=== PATIENT | female | born 1985 | race Caucasian/White ===

== ENCOUNTER 2022-09-14 16:29 | Outpatient (OUT) | payer MEDICAID, SELFPAY ==
[2022-09-14 17:46] LABS: HCG Quantitative <1 mIU/mL
[2022-09-16 06:12] LABS: HBsAg Screen Negative (Negative); HCV Antibody Reactive (Non Reactive)
[2022-09-16 07:08] LABS: HIV Ab/p24 Ag Screen Non Reactive (Non Reactive)
[2022-09-16 11:08] LABS: Rapid Plasma Reagin, Quant Non Reactive (NonRea<1:1)
== END 2022-09-14 16:30 | disposition home or self-care (01) ==
PROVIDERS: Visit Provider Obstetrics & Gynecology
DX: N89.8 Other specified noninflammatory disorders of vagina (principal); Z20.2 Contact with and (suspected) exposure to infections with a predominantly sexual mode of transmission
CPT/HCPCS: 36415; 84702; 86592; 86706; 86803; 87389

== ENCOUNTER 2022-11-01 12:44 | Outpatient (OUT) | payer MEDICAID, SELFPAY ==
--- NOTE | 2022-11-01 13:49 | P.CN_ITS ---
Consult Note: HPI Data of Consult Patient: new to practice Consult date: 11/01/22 Requesting Physician: Getachew Ambrose MD Primary Care Provider: RITA MORRIS Consult Narrative Reason for consult: Low back, left leg pain Narrative: Caroline 37yof with a history of low back and left leg pain who presents for evaluation. Has had two previous lumbar surgeries, without significant relief. Lumbar CT scan reviewed, which is indicative of stenosis at L5-S1 with moderate foraminal narrowing. Has completed >6 weeks of provider directed home exercises, without relief. Goes to chiropractor weekly. History of opiate overdose, utilizes suboxone. Denies adverse medication side effects. cc:: CC: Getachew Ambrose MD Review of Systems ROS Status of ROS 10 or more systems reviewed and unremarkable except as noted in history and below Exam Constitutional Common normals: no apparent distress, oriented x3 and healthy appearing Respiratory Common normals: normal respiratory effort Effort & inspection: able to speak in complete sentences Back & Pelvis Other: Tenderness to palpation in lumbar spine and paraspinal musculature. Pain el icited with flexion, extension, lateral rotation of lumbar spine. Facet loading maneuvers positive bilaterally. Strength unremarkable except for decreased strength rated 4/5 in left quadriceps femoris, anterior tibialis. Sensation unremarkable except for dysesthesia in left L4, L5, S1 dermatomal distributions. Gait nonantalgic. Extremity Common normals: normal to inspection Neuro Common normals: oriented x3, CN's II-XII intact bilaterally and no focal motor deficits Psych Common normals: mental status grossly normal and cooperative Assessment and Plan Assessment and Plan (1) Lumbar stenosis with neurogenic claudication: (2) Lumbar postlaminectomy syndrome: (3) Lumbar spondylosis: Plan Caroline 37yof who presents for evaluation. Conservative measures attempted for greater than 6 weeks, as noted above, without relief. Imaging reviewed, as noted above. Given symptoms and imaging findings, will schedule for left L5-S1, S1-2 TFESI under fluoroscopic guidance. She is in agreement. Medications reviewed. Will have her increase lyrica to 200mg tid. She expressed understanding. Follow up after procedure.
== END 2022-11-01 12:45 | disposition home or self-care (01) ==
PROVIDERS: PCP Nurse Practitioner Family; Visit Provider Anesthesiology
DX: M47.816 Spondylosis without myelopathy or radiculopathy, lumbar region (principal); M96.1 Postlaminectomy syndrome, not elsewhere classified; M48.062 Spinal stenosis, lumbar region with neurogenic claudication
CPT/HCPCS: G0463

== ENCOUNTER 2022-11-09 09:24 | Outpatient (OUT) | payer MEDICAID, SELFPAY ==
--- NOTE | 2022-11-09 11:18 | XR_ITS ---
The [address] [address] Patient Name: TYRONE WEST MRN: [id number] date: 1985 Sex: F Assigned Patient Location: [facility] Current Patient Location: [facility] Accession/Order Number: [id number] Exam Date: 11/09/2022 11:30 Report Date: 11/09/2022 11:56 At the request of: CHITO VICTORIA Procedure: XR chest 2V EXAM: XR chest 2V HISTORY: H/O VAPING OR SMOKING COMPARISON: None. TECHNIQUE: PA and lateral views of the chest. FINDINGS: The cardiomediastinal silhouette is normal. No focal consolidation is identified. There is no pneumothorax. No pleural effusion is noted. The osseous structures are intact. XR/XR chest 2V IMPRESSION: No acute cardiopulmonary process. Electronically authenticated by: BRITANY IZAGUIRRE Date: 11/09/2022 11:56
== END 2022-11-09 09:25 | disposition home or self-care (01) ==
PROVIDERS: PCP Nurse Practitioner Family; Visit Provider Obstetrics & Gynecology
DX: Z01.810 Encounter for preprocedural cardiovascular examination (principal); R87.612 Low grade squamous intraepithelial lesion on cytologic smear of cervix (LGSIL)
CPT/HCPCS: 71046

== ENCOUNTER 2022-11-09 09:31 | Outpatient (OUT) | payer MEDICAID, SELFPAY ==
[2022-11-09 10:05] LABS: Basophils Percent Auto 0.5 % (0.2-2.0); Eosinophils Absolute Auto 0.1 10^3/uL (0.0-0.7); Eosinophils Percent Auto 3.5 % (0.9-7.0); Hematocrit 38.4 % (36.0-48.0); Hemoglobin 13.2 g/dL (12.0-16.0); Immature Granulocytes Abs Auto 0.01 10^3/uL (0.00-0.03); Immature Granulocytes Pct Auto 0.2 % (0.0-0.5); Lymphocytes Absolute Auto 1.5 10^3/uL (1.2-3.8); Lymphocytes Percent Auto 37.6 % (20.5-60.0); Mean Corpuscular HGB Conc 34.4 g/dL (29.9-35.2); Mean Corpuscular Hemoglobin 31.6 pg (26.7-34.0); Mean Corpuscular Volume 91.9 fL (81.0-99.0); Mean Platelet Volume 9.8 fL (9.5-13.5); Monocytes Absolute Auto 0.2 10^3/uL (0.3-0.8); Monocytes Percent Auto 5.2 % (1.7-12.0); Neutrophils Absolute Auto 2.1 10^3/uL (1.4-6.5); Platelet Count 262 10^3/uL (150-450); Red Blood Count 4.18 10^6/uL (4.20-5.40); Red Cell Distribution Width 12.7 % (11.0-15.0)
[2022-11-09 10:32] LABS: Estimated Average Glucose 100 mg/dL; Glycohemoglobin A1C 5.1 % (4.5-6.2)
[2022-11-09 10:33] LABS: Alanine Aminotransferase 42 U/L (14-59); Albumin Level 3.1 g/dL (3.4-5.0); Alkaline Phosphatase 96 U/L (46-116); Anion Gap 11.5; Aspartate Amino Transferase 35 U/L (15-37); BUN Creatinine Ratio 18.8; Bilirubin Total 0.4 mg/dL (0.2-1.0); Calcium 8.7 mg/dL (8.5-10.1); Carbon Dioxide 25.8 mmol/L (21.0-32.0); Chloride 106 mmol/L (98-107); Chol HDL Ratio 2.3; Cholesterol 120 mg/dL (<=200); Estimated GFR (African America >60 (>=60); Estimated GFR (Non-African Ame >60 (>=60); Globulin 3.1 g/dL; Glucose 99 mg/dL (74-106); HDL Cholesterol 53 mg/dL (40-60); LDL Cholesterol Calculated 45.4 mg/dL; Potassium 3.3 mmol/L (3.5-5.1); Sodium 140 mmol/L (136-145); Total Protein 6.2 g/dL (6.4-8.2); Triglycerides 108 mg/dL (<=150); VLDL CHOLESTEROL 21.6 mg/dL
[2022-11-12 18:08] LABS: HCV Ab Reactive (Non Reactive)
== END 2022-11-09 09:32 | disposition home or self-care (01) ==
PROVIDERS: PCP Nurse Practitioner Family; Visit Provider Obstetrics & Gynecology
DX: Z01.810 Encounter for preprocedural cardiovascular examination (principal); R87.612 Low grade squamous intraepithelial lesion on cytologic smear of cervix (LGSIL); R76.8 Other specified abnormal immunological findings in serum
CPT/HCPCS: 36415; 71046; 80053; 80061; 83036; 85025; 86803

== ENCOUNTER 2022-12-03 10:11 | Day surgery (SDC) | payer MEDICAID, SELFPAY ==
[2022-11-09 10:52] VITALS: BP 114/75; PULSE 96; RESP 16; TEMP 36.3; O2SAT 99; BMI 27.2
[2022-12-03] VITALS (12 sets, daily range): BP systolic 87–132; BP diastolic 66–81; PULSE 70–108; RESP 13–24; TEMP 36.2–36.3; O2SAT 91–100; BMI 28.3
[2022-12-03] MEDS: LACTATED RINGER'S SOLUTION 1,000 ML 50 ML IV (10:50)
[2022-12-03 10:59] LABS: HCG Quantitative <1 mIU/mL
--- NOTE | 2022-12-03 11:14 | PC.NURSE ---
Updated Dr. Solano on patients low blood pressure.
[2022-12-03 12:28] LABS: Cannabinoid Screen Urine NEGATIVE (NEGATIVE); Cocaine Screen Urine NEGATIVE (NEGATIVE); Methamphetamines Screen Urine NEGATIVE (NEGATIVE); Phencyclidine Screen Urine NEGATIVE (NEGATIVE)
[2022-12-03 12:29] LABS: Amphetamine Screen Urine POSITIVE (NEGATIVE); Barbiturates Screen Urine NEGATIVE (NEGATIVE); Benzodiazepines Screen Urine NEGATIVE (NEGATIVE); Buprenorphine Screen Urine NEGATIVE (NEGATIVE); Methadone Screen Urine NEGATIVE (NEGATIVE); Opiate Screen Urine NEGATIVE (NEGATIVE); Oxycodone Screen Urine NEGATIVE (NEGATIVE); Tricyclic Antidepressant Urine NEGATIVE (NEGATIVE)
[2022-12-03] MEDS: LACTATED RINGER'S SOLUTION 1,000 ML 1000 ML IV (13:04)
[2022-12-03] MEDS: IODINE/POTASSIUM IODIDE 8 ML SOLUTION TOPICAL (13:04)
[2022-12-03] MEDS: FERRIC SUBSULFATE 8 ML SOLUTION TOPICAL (13:09)
--- NOTE | 2022-12-03 13:13 | PM.ONB ---
Brief Operative Note Date of procedure: 12/03/22 Pre-op diagnosis: cervical dysplasia Post-op diagnosis: same as pre-op Procedure: NAME OF PROCEDURE: [leep ] PROCEDURE: Patient was taken back to the Operating Room where she was given general anesthesia without difficulty. She was then placed in the dorsal lithotomy position. She was then prepped and draped in the normal sterile fashion. A weighted speculum was placed into the patient's vagina. The anterior lip of the cervix was identified and grasped with a single-tooth tenaculum. The patient's cervix was then copiously irrigated using vinegar.? Then, a Lugol Solution was also placed onto the patient's cervix which demonstrated increased uptake of the Lugol solution at the [?3 ] o?clock and [?9] o?clock positions.? At that time, the LEEP portion of the procedure was performed, including both the [3? ] o?clock and 9? ] o?clock positions. The ectocervix was sent out to Pathology. The patient's cervix was then coagulated using suction cautery. Excellent hemostasis was assured.? Monsel Solution was then placed onto the patient's cervix to help maintain adequate hemostasis. All instruments were removed from the patient's vagina. The anterior lip of the cervix demonstrated excellent hemostasis.? The patient tolerated the procedure well. Sponge, lap, and needle counts were correct x 2. The patient was taken to Recovery Room in stable condition. Anesthesia: COLLEEN Surgeon: Blake Corea Estimated blood loss (mL): 10 Pathology: other (endo and ectocervical currettings) Condition: stable Disposition: PACU
[2022-12-03] MEDS: PROMETHAZINE HCL 25 MG TABLET PO (13:31)
[2022-12-07 13:10] LABS: HCV Ab Reactive (Non Reactive)
== END 2022-12-03 14:20 | disposition home or self-care (01) ==
PROVIDERS: PCP Nurse Practitioner Family; Visit Provider Obstetrics & Gynecology
PROC: (CPT 00940; principal; 2022-12-03 10:55)
DX: R87.612 Low grade squamous intraepithelial lesion on cytologic smear of cervix (LGSIL) (principal); N72 Inflammatory disease of cervix uteri; K21.9 Gastro-esophageal reflux disease without esophagitis; E28.2 Polycystic ovarian syndrome; Z87.440 Personal history of urinary (tract) infections; Z87.442 Personal history of urinary calculi; G62.9 Polyneuropathy, unspecified; F17.210 Nicotine dependence, cigarettes, uncomplicated; Z98.84 Bariatric surgery status; Z90.49 Acquired absence of other specified parts of digestive tract; E56.9 Vitamin deficiency, unspecified
CPT/HCPCS: 00940; 57522; 36415; 80307; 84702; 86803; 87522; 88307; 88341; 88342; J2704

== ENCOUNTER 2023-04-11 20:24 | Outpatient (REF) | payer MEDICAID, SELFPAY ==
[2023-04-14 18:08] LABS: HPV Aptima Negative (Negative); Pap IG (Image Guided) Note (.)
== END 2023-04-11 20:25 | disposition home or self-care (01) ==
LOC: LAB 20:24
PROVIDERS: PCP Nurse Practitioner Family; Visit Provider Obstetrics & Gynecology
DX: Z12.4 Encounter for screening for malignant neoplasm of cervix (principal); R87.612 Low grade squamous intraepithelial lesion on cytologic smear of cervix (LGSIL)
CPT/HCPCS: 87624; 99999; G0145

== ENCOUNTER 2023-08-15 20:53 | Outpatient (REF) | payer MEDICAID, SELFPAY ==
--- OUTSIDE RECORDS SUMMARY | 2023-08-15 21:04 | XMS_ITS | CCD ---
Author Organization [facility] Care Team Providers Care Steward/Stewardess Second Name Role Phone CHANO FRANKLIN Unavailable Unavailable Katty, Rosana Unavailable Unavailable karthik Unavailable Unavailable Stiven, Allsion Unavailable Unavailable Sprout Unavailable Unavailable Unavailable Unavailable Unavailable Bahn Unavailable Unavailable Scott, Isidro Unavailable Unavailable Katty, Rosana Unavailable Unavailable BEBOS, ACHILLES Unavailable Unavailable Katty, Rosana Unavailable Unavailable Mina Diggsrielle Unavailable Unavailable OZZIE MCKEON J Unavailable Unavail able Katty, Rosana Unavailable Unavailable Katty, Rosana Unavailable Unavailable Katty, Rosana Primary Care Physician Unavailab le karthik Unavailable Unavailable Stiven, Allsion Unavailable Unavailable Sprout Unavailable Unavailable Unavailable Unavailable Unavailable Bahn Unavailable Unavailable Scott, Isidro Unavailable Unavailable Katty, Rosana Unavailable Unavailable Katty, Rosana M Primary Care Provider Katty, Rosana Unavailable Katty, Rosana Primary Care Provider [phone] JENNIFER WHALEY Attending Unavailable KATTY, ROSANA M Primary Care Unavailable KATTY ROSANA M Primary Care Unavailable WAYLON MONTOYA Attending Unavailable Katty, Rosana Primary Care Provider Rosana Alaniz CNP Primary Care Provider [phone] KATTY ROSANA Primary Care Unavailable KATTY, ROSANA Referring Unavailable PATRICIA, ALEYDA Admitting Unavailable PATRICIA, ALEYDA Attending Unavailable Katty 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 SECRETARY - Rosana AREVALO Primary Care Provider Agus Madera Unavailable Liz Billingsley Unavailable ROSALIA ., DR SUTTON Admitting Unavailabl e KARASIK ., DR SUTTON Attending Unavailabl e AICHHOLZ, FINANCIAL INSTITUTION TREASURER TERE Primary Care Unavailable KARASIK ., DR SUTTON Consulting Unavailabl e AICHHOLZ, FINANCIAL INSTITUTION TREASURER TERE Admitting Unavailable AICHHOLZ, FINANCIAL INSTITUTION TREASURER TERE Attending Unavailable AICHHOLZ, FINANCIAL INSTITUTION TREASURER TERE Primary Care Unavailable AICHHOLZ, FINANCIAL INSTITUTION TREASURER TERE Consulting Unavailable AICHHOLZ, FINANCIAL INSTITUTION TREASURER TERE Admitting Unavailable AICHHOLZ, FINANCIAL INSTITUTION TREASURER TERE Attending Unavailable AICHHOLZ, FINANCIAL INSTITUTION TREASURER TERE Primary Care Unavailable AICHHOLZ, FINANCIAL INSTITUTION TREASURER TERE Consulting Unavailable CASSY, DR Arthur Hansen Admitting Unavailable CASSY, DR Arthur Hansen Attending Unavailable AICHHOLZ, FINANCIAL INSTITUTION TREASURER TERE Primary Care Unavailable BRIGIDA RAHMAN Attending Unavailable SILVESTRE PHIPPS Primary Care Unavailabl e Berenice Haile Unavailable GENOVEVA Haile Attending Provider [phone] GENOVEVA Haile Attending Provider NO FAMILY, PHYSICIAN Primary Care Provider Unava ilable GENOVEVA Haile Primary Care Provider GENOVEVA Pitts Attending Provider Ladarius Pitts Unavailable GENOVEVA Haile Primary Care Provider GENOVEVA Pitts Attending Provider EVANGELINA Hansen Attending Provider [phone] GENOVEVA Montgomery Primary Care Provider [phone] Berenice Dempsey Primary Care Provid er BLAKE COREA Attending Unavailable RENETTA PASTOR Attending Unavailable Berenice Haile NP Primary Care Provider Rohrbacher 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 SECRETARY-GROUND NUCLE[employer]ONS ASSEMBLY OFFICER, Berenice Primary Care Provid er JASWANT HUSSEIN Attending Unavailable ROHRBACHER, BERENICE Referring Unavailable ROHRBACHER, BERENICE Primary Care Unavailable ANUP BUTLER Attending Unavailable BUTLER, ANUP Monterroso Referring Unavailable ROHRBACHER, BERENICE Primary Care Unavailable ANUP BUTLER E Admitting Unavailable BUTLERANUP E Attending Unavailable ROHRBACHER, BERENICE Referring Unavailable ROHRBACHER, BERENICE Primary Care Unavailable LAITH BECK Attending Unavailable ROHRBACHER, BERENICE Primary Care Unavailable RENETTA ELIZALDE Attending Unavailable ROHRBACHER, BERENICE Referring Unavailable ROHRBACHER, BERENICE Primary Care Unavailable ROHRBACHER, BERENICE Referring Unavailable ROHRBACHER, BERENICE Primary Care Unavailable KYLAH AMADO Attending Unavailable AICHHOLAnnette, TERE Wayne Primary Care Unavailable KYLAH AMADO Attending Unavailable KYLAH AMADO Referring Unavailable AICHHOLAnnette, TERE Wayne Primary Care Unavailable Rohrbacher, 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 SECRETARY Berenice Primary Care Provider DO Nazario Torres Emergency Provider [phone] Rohrbacher, Berenice Admitting Unavailable Rohrbacher, Berenice Attending Unavailable NO FAMILY, PHYSICIAN Primary Care Unavailable Ladarius Pitts Attending Unavailable Leslyrbacher, Berenice Primary Care Unavailable Ladarius Pitts Admitting Unavailable Lola Montgomery Primary Care Unavailable Johana Hansen Admitting Unavailable Johana Hansen Attending Unavailable Leslyrbacher, Berenice Primary Care Unavailable Nazario Torres Admitting Unavailable Nazario Torres Attending Unavailable Allergies Allergy Classification Reported Allergen(s) Allergy Type Date of Onset Reaction(s) Facility Cephalosporins (antibiotic) (2 sources) Cefaclor; Translations: [CEPHALOSPORINS] Drug Allergy 015 [facility] Repository NSAIDs (2 sources) NSAIDs; Translations: [IBUPROFEN] Drug Allergy 016 [facility] Repository Opioid Agonists (1 source) fentaNYL Drug Allergy 020 Fentanyl [facility] Work Phone: Penicillins (antibiotic) (5 sources) Penicillins; Translations: [AMOXICILLIN] Drug Allergy 015 Shock [facility] Repository Sulfamethoxazole / Trimethoprim (1 source) Sulfamethoxazole / Trimethoprim Drug Allergy 020 Skin Rashes [facility] Work Phone: Unclassified (1 source) TYLENOL CODEINE #3; Translations: [TYLENOL CODEINE #3] Propensity to adverse reactions (disorder) 015 [facility] Repository (20 sources) amoxicillin; Translations: [amoxicillin] Drug Allergy 017 [facility], Unknown, Unknown Reaction [facility] Repository (20 sources) ampicillin; Translations: [Ampicillin] Drug Allergy [facility] (20 sources) Penicillins; Translations: [PENICILLINS] Allergy to substance (disorder) 013 Anaphylaxis, Shock, Hives, Rash [facility] (20 sources) Vespid (bees, hornets, wasps, yellow jackets); Translations: [Vespid (bees, hornets, wasps, yellow jackets)] Allergy to substance (disorder) [facility] (6 sources) -No Known Food Allergies Allergy to substance (disorder) [facility] (1 source) penicillin; Translations: [PENICILLIN] Drug Allergy 018 AOF [facility] Repository (4 sources) amoxicillin; Translations: [amoxicillin] Drug Allergy [facility] (4 sources) ampicillin; Translations: [Ampicillin] Drug Allergy [facility] (18 sources) Amoxicillin Drug Allergy 015 Anaphylaxis, Hives [place], [place] (20 sources) Cefaclor; Translations: [CEFACLOR] Drug Allergy 015 Hives, Other (See Comments), Anaphylaxis [place], [place] (20 sources) Codeine; Translations: [CODEINE] Drug Allergy [facility] [place] (16 sources) NSAIDs; Translations: [NSAIDS (Non-Steroidal Anti-Inflammatory Drug)] Allergy to substance [facility] Repository (10 sources) fentaNYL Drug Allergy Fentanyl [facility] Work Phone: (9 sources) Sulfamethoxazole / Trimethoprim Drug Allergy 020 Skin Rashes [facility] Work Phone: (16 sources) Cefaclor; Translations: [Ceclor] Drug Allergy Unknown [facility] Repository (18 sources) Penicillin G Drug Allergy Anaphylaxis, Rash, Unknown [employer] [employer] Other (2 sources) Amoxicillin Drug Allergy [facility] Repository (2 sources) Codeine Drug Allergy [facility] Repository (3 sources) Acetaminophen; Translations: [acetaminophen] Drug Allergy Unknown Reaction [facility] (6 sources) Latex; Translations: [latex] Allergy to substance Unknown Reaction, Rash [facility] (11 sources) Acetaminophen / Codeine; Translations: [ACETAMINOPHEN-CODE INE] Drug Allergy [facility] (2 sources) Non-steroidal anti-inflammatory agent Drug Allergy 023 [facility] (1 source) Amoxicillin Drug Allergy [facility] Repository (1 source) Cefaclor Drug Allergy [facility] Repository (1 source) Codeine Drug Allergy [facility] Repository (1 source) Penicillin Drug Allergy [facility] Repository Medications Current Medications Medication Drug Class(es) Dates Sig (Normalized) Sig (Original) acetaminophen 325 mg oral capsule (12 sources) Start: 12-08-2022 End: 12-08-2023 take 1 capsule by mouth every six hours for pain acetaminophen (Tylenol) 325 MG capsule Indications: Postoperative visit Take 1 capsule (325 mg) by mouth every 6 (six) hours if needed for mild pain. 120 capsule 11 12/08/2022 12/08/2023 Active Start: 11-14-2018 acetaminophen (TYLENOL) tablet 1,000 mg Start: 10-15-2018 take 2 tablets by mo uth every eight hours as needed for pain acetaminophen (TYLENOL) 500 MG tablet Take 2 tablets by mouth every 8 hours as needed for Pain or Fever 30 tablet 0 10/15/2018 Active Start: 10-15-2018 acetaminophen (TYLENOL) tablet 1,000 mg acyclovir 400 mg oral tablet (4 sources) Herpesvirus Nucleoside Analog DNA Polymerase Inhibitor, Herpes Simplex Virus Nucleoside Analog DNA Polymerase Inhibitor, Herpes Zoster Virus Nucleoside Analog DNA Polymerase Inhibitor take 1 tablet by mouth every twelve hours Acyclovir 400 MG 1 tablet Orally Twice a day Active Advanced Probiotic Oral Capsule (9 sources) Start: 03-06-20 Advanced Probiotic Oral Capsule 03/06/2019 Provider: Rosana Alaniz CNP Advanced Probiotic Oral Capsule (2 sources) Start: 03-06-20 Advanced Probiotic Oral Capsule 03/06/2019 Provider: Rosana Alaniz CNP Alcohol Prep Pad (16 sources) Start: 05-06-19 19 Alcohol Prep Pad 05/05/2018 Provider: Alcohol Prep Pad (2 sources) Start: 05-06-19 19 Alcohol Prep Pad 05/05/2018 Provider: Alpha Lipoic Acid-Vitamin E (4 sources) Alpha Lipoic Acid-Vitamin E Active amitriptyline hydrochloride 10 mg oral tablet (20 sources) Tricyclic Antidepressant Start: 05-26-19 take 10 mg by mouth once daily at bedtime Amitriptyline Active 10 MG PO Daily at bedtime May 26, 2023 12:00am Start: 01-24-2023 End: 04-27-2023 take 1 tablet by mouth once daily amitriptyline (ELAVIL) 10 mg tablet Take 1 tablet (10 mg total) by mouth nightly. 30 tablet 0 04/27/2023 Active Start: 03-08-2019 End: 03-08-2019 Amitriptyline HCl 25 MG Oral Tablet 03/08/2019 - 03/08/2019 Provider: Start: 05-05-2018 End: 03-08-2019 Amitriptyline HCl 50MG Oral Tablet 05/05/2018 - 03/08/2019 Provider: Start: 04-01-2018 End: 02-04-2020 AMITRIPTYLINE 25 MG MISC - 02/04/2020 Provider: Start: 04-01-2018 End: 02-04-2020 AMITRIPTYLINE 50 MG MISC - 02/04/2020 Provider: Start: 04-01-2018 End: 04-01-2018 AMITRIPTYLINE 50 MG MISC - 04/01/2018 Provider: Start: 04-01-2018 End: 04-01-2018 AMITRIPTYLINE 25 MG MISC - 04/01/2018 Provider: Start: 04-01-2018 End: 04-01-2018 AMITRIPTYLINE 50MG MISC 03/08 - 04/01/2018 Provider: Start: 04-01-2018 End: 04-01-2018 AMITRIPTYLINE 25MG MISC 03/08 - 04/01/2018 Provider: End: 11-24-2017 take 1 tablet by mouth once daily at bedtime amitriptyline 25 mg oral tablet 11/24/2017 take 1 tablet (25 mg) by oral route once daily at bedtime increased by dr bwoie take 1 tablet by enriqueta once daily at bedtime amitriptyline 50 mg oral tablet take 1 tablet (50 mg) by oral route once daily at bedtime amphetamine aspartate 5 mg / amphetamine sulfate 5 mg / dextroamphetamine saccharate 5 mg / dextroamphetamine sulfate 5 mg oral tablet (20 sources) Central Nervous System Stimulant Start: 03-13-2020 Adderall 20 MG Oral Tablet 03/13/2020 Provider: Start: 12-09-2016 End: 02-04-2020 Adderall 30 MG OR TABS 01/06 - 02/04/2020 Provider: take 1 capsule by mo [facility] every twenty-four hours Adderall XR 20 MG 1 capsule in the morning Orally Once a day Not-Taking/PRN take 1 capsule by mo ut once daily in the morning amphetamine-dextroamphetamine (ADDERALL XR) 25 MG XR capsule Take 25 mg by mouth every morning. 0 Active Antiseptic Skin Cleanser 4% External Solution (20 sources) Start: 03-26-2019 Antiseptic Ski n Cleanser 4% External Solution 03/26/2019 Provider: Rosana Alaniz CNP Start: 03-06-2019 End: 03-26-2019 Antiseptic Skin Cleanser 4% External Solution 03/06/2019 - 03/26/2019 Provider: Rosana Alaniz CNP Start: 07-03-2018 End: 03-06-2019 Antiseptic Skin Cleanser 4% External Solution 07/03/2018 - 03/06/2019 Provider: Rosana Alaniz CNP Start: 07-03-2018 Antiseptic Ski n Cleanser 4% External Solution 07/03/2018 Provider: Rosana Alaniz CNP Antiseptic Skin Cleanser 4% External Solution (6 sources) Start: 03-26-2019 Antiseptic Ski n Cleanser 4% External Solution 03/26/2019 Provider: Rosana Alaniz CNP Start: 03-06-2019 End: 03-26-2019 Antiseptic Skin Cleanser 4% External Solution 03/06/2019 - 03/26/2019 Provider: Rosana Alaniz CNP Start: 07-03-2018 End: 03-06-2019 Antiseptic Skin Cleanser 4% External Solution 07/03/2018 - 03/06/2019 Provider: Rosana Alaniz CNP ARIPiprazole 10 mg oral tablet (12 sources) Atypical Antipsychotic Start: 02-20-2019 Abilify 10 MG Oral Tablet 02/20/2019 Provider: azithromycin 500 mg oral tablet (20 sources) Macrolide Antimicrobial Start: 04-11-2023 End: 04-12-2023 take 2 tablets by mouth in the morning azithromycin (Zithromax) 500 MG tablet Indications: Nausea Take 2 tablets (1,000 mg) by mouth in the morning for 1 day. 2 tablet 0 04/11/2023 04/12/2023 Active Start: 03-13-2020 Zithromax 250 MG Oral Tablet 03/13/2020 Provider: Rosana Alaniz CNP Start: 12-09-2016 take 2 tablets by mo [facility] once daily, then take 1 tablet by mouth once daily azithromycin 250 mg oral tablet 12/09/2016 take 2 tablets (500 mg) by oral route once daily for 1 day then 1 tablet (250 mg) by oral route once daily for 4 days Start: 12-09-2016 End: 02-04-2020 Azithromycin 250 MG Oral Tab let 02/20/2019 - 07/16/2019 Provider: Rosana Alaniz CNP B Complex Oral Capsule (2 sources) Start: 06-24-2020 B Complex Oral Capsule 06/24/2020 Provider: Rosana Alaniz CNP B Complex Vitamins Oral Caps ule (19 sources) Start: 07-09-2019 B Complex Beth mins Oral Capsule 07/09/2019 Provider: Rosana Alaniz CNP Start: 05-05-2018 End: 06-15-2018 B Complex Vitamins Oral Caps ule 05/05/2018 - 06/15/2018 Provider: BD Eclipse Syringe 21G X 1 3 ML Miscellaneous (2 sources) Start: 03-13-2020 BD Eclipse Syr tejas 21G X 1 3 ML Miscellaneous 03/13/2020 Provider: Rosana Alaniz CNP BD Eclipse Syringe 21G X 1 3 ML Miscellaneous (2 sources) Start: 03-13-2020 BD Eclipse Syr tejas 21G X 1 3 ML Miscellaneous 03/13/2020 Provider: Rosana Alaniz CNP BD Luer-Ricardo Syringe 21G X 1 3 ML Miscellaneous (1 source) Start: 03-04-2021 BD Luer-Ricardo Sy ringe 21G X 1 3 ML Miscellaneous 03/04/2021 Provider: Megan Arita CNP biotin 1 mg oral capsule (20 sources) Start: 11-11-2022 End: 11-11-2023 take 1 capsule by mouth in the morning biotin 1 MG capsule Indications: Vitamin deficiency Take 1 capsule (1 mg) by mouth in the morning. 30 capsule 11 11/11/2022 11/11/2023 Active Start: 05-05-2018 Biotin 1MG Ora l Capsule 05/05/2018 Provider: Start: 04-01-2018 End: 02-04-2020 BIOTIN 1 MG MISC 04/01/2018 - 02/04/2020 Provider: Start: 04-01-2018 End: 04-01-2018 BIOTIN 1 MG MISC 04/01/2018 - 04/01/2018 Provider: Start: 04-01-2018 End: 04-01-2018 BIOTIN 1MG MISC 04/01/2018 - 04/01/2018 Provider: biotin 1 mg oral capsule buprenorphine 4 mg / naloxone 1 mg sublingual film (16 sources) Partial Opioid Agonist, Opioid Antagonist Start: 05-26-2023 Buprenorphine-Naloxo ne (Suboxone) 4-1 mg film Active 1 FILM BUCCAL Daily May 26, 2023 12:00am place 1 strip/tab under (each) side of tongue Suboxone since J une Not-Taking/PRN Suboxone Not-Dwaine ing/PRN Suboxone Not-Dwaine ing Suboxone Active 24 hr buPROPion hydrochloride 150 mg extended release oral tablet (20 sources) Aminoketone Start: 03-03-2020 take 1 tablet by mouth every twenty-four hours buPROPion HCl ER (XL) 150 MG Oral Tablet Extended Release 24 Hour 03/03/2020 Provider: Rosana Alaniz CNP Start: 05-05-2018 End: 03-03-2020 take 1 tablet by mouth every twelve hours buPROPion HCl ER (SR) 150 MG Oral Tablet Extended Release 12 Hour 03/06/2019 - 03/03/2020 Provider: Rosana Alaniz CNP Start: 02-16-2018 End: 02-16-2018 Wellbutrin XL 150 MG OR TB24 02/16/2018 - 02/16/2018 Provider: Start: 02-22-2017 End: 02-04-2020 Wellbutrin XL 150 MG OR TB24 02/16/2018 - 02/04/2020 Provider: Start: 02-22-2017 End: 02-22-2017 Wellbutrin XL 150 MG OR TB24 02/22/2017 - 02/22/2017 Provider: calcium carbonate 1500 mg oral tablet (5 sources) Start: 04-28-2023 End: 04-28-2023 take 1 tablet by mouth once daily Calcium Carbonate (Calcium 600) 600 mg calcium (1,500 mg) tablet Active 600 MG PO Daily 90 April 28, 2023 2:08pm Start: 10-20-2020 Calcium Carbon ate 1500 (600 Ca) MG Oral Tablet 10/20/2020 Provider: Rosana Alaniz CNP calcium polycarbophil 625 mg oral tablet (20 sources) Start: 03-03-2021 take 2 tablets by mouth once daily as needed FIBER-LAX 625 mg tablet Take 2 tablets (1,250 mg total) by mouth daily as needed. 0 06/01/2021 Active Start: 05-24-2019 End: 03-13-2020 Calcium Polycarbophil 625 MG Oral Tablet 03/13/2020 Provider: Rosana Alaniz CNP cariprazine 3 mg oral capsule (20 sources) Atypical Antipsychotic Start: 05-05-2018 Vraylar 3MG Oral Capsule 05/05/2018 Provider: Start: 04-01-2018 End: 02-04-2020 VRAYLAR MISC 04/01/2018 - Provider: Start: 04-01-2018 End: 04-01-2018 GAYLE MISC 04/01/2018 - Provider: Gayle oral chlorhexidine gluconate 40 m g/ml medicated liquid soap (20 sources) Start: 05-05-2018 Hibiclens 4% E xternal Liquid 05/05/2018 Provider: Start: 11-24-2017 Hibiclens 4 % topical liquid 11/24/2017 apply externally as directed three times per week Start: 11-24-2017 End: 02-04-2020 Hibiclens 4% EX LIQD 018 - 02/04/2020 Provider: cholecalciferol 0.025 mg oral capsule (20 sources) Vitamin D Start: 04-28-2023 End: 04-28-2023 take 25 ug by mouth once daily Cholecalciferol (Vitamin D3) Active 25 MCG PO Daily April 28, 2023 2:08pm Start: 03-08-2019 End: 03-13-2020 Vitamin D3 25 MCG (1000 UT) Oral Capsule 03/13/2020 Provider: Rosana Alaniz CNP Start: 03-08-2019 Vitamin D3 25 MCG (1000 UT) Oral Capsule 03/08/2019 Provider: Rosana Alaniz CNP Start: 05-05-2018 End: 02-20-2019 Vitamin D3 1000UNIT Oral Cap josiane, conventional 06/15/2018 - 02/20/2019 Provider: Rosana Alaniz CNP Start: 05-05-2018 End: 02-20-2019 Vitamin D3 1000UNIT Oral Cap josiane, conventional 06/15/2018 Provider: Rosana Alaniz CNP take 1 tablet by enriqueta th in the morning cholecalciferol, vitamin D3, (VITAMIN D3) 1,000 units tablet Take 1 tablet (1,000 Units total) by mouth in the morning. 0 Active take 1 tablet by enriqueta th once daily vitamin D (CHOLECALCIFEROL) 1000 UNIT TABS tablet Take 1,000 Units by mouth daily 0 Active citalopram 20 mg oral tablet (1 source) Serotonin Reuptake Inhibitor Start: 12-18-2020 Citalopram Hydrobromide 20 MG Oral Tablet 12/18/2020 Provider: Rosana Alaniz CNP clotrimazole 10 mg/ml topical cream (20 sources) Azole Antifungal Start: 02-01-2017 clotrimazole 1 % topical cream 02/01/2017 apply to the affected of skin 2 times per day for 30 days Start: 02-01-2017 End: 08-05-2020 Clotrimazole 1% External Cre am 08/05/2020 Provider: Rosana Alaniz CNP cyclobenzaprine hydrochloride 10 mg oral tablet (13 sources) Muscle Relaxant Start: 03-16-2023 take 10 mg by mouth twice daily Cyclobenzaprine Active 10 MG PO Twice daily May 26, 2023 12:00am Start: 12-16-2022 End: 03-16-2023 take 1 tablet by mouth in the morning, then take 1 tablet by mouth at bedtime cyclobenzaprine (FLEXERIL) 10 mg tablet Indications: S/P lumbar fusion Take 1 tablet (10 mg total) by mouth in the morning and 1 tablet (10 mg total) before bedtime. 60 tablet 0 03/16/2023 Active cyproheptadine hydrochloride 4 mg oral tablet (20 sources) Start: 05-05-2018 Cyproheptadine HCl 4MG Oral Tablet 05/05/2018 Provider: Start: 04-01-2018 End: 02-04-2020 CYPROHEPTADINE 4 MG [facility] - 02/04/2020 Provider: Start: 04-01-2018 End: 04-01-2018 CYPROHEPTADINE 4 MG MISC - 04/01/2018 Provider: Start: 04-01-2018 End: 04-01-2018 [facility] - 04/01/2018 Provider: take 1 tablet by enriqueta th once daily at bedtime cyproheptadine 4 mg oral tablet take 1 tablet by oral route once a day (at bedtime) Daily Raegan Oral Tablet (14 sources) Start: 01-03-2020 Daily Raegan Ora l Tablet 01/03/2020 Provider: Rosana Alaniz CNP Start: 12-28-2018 End: 01-03-2020 Daily Raegan Oral Tablet 12/28 - 01/03/2020 Provider: Rosana Alaniz CNP Start: 12-28-2018 Daily Raegan Ora l Tablet 12/28/2018 Provider: Rosana Alaniz CNP Daily Raegan Oral Tablet (4 sources) Start: 01-03-2020 Daily Raegan Ora l Tablet 01/03/2020 Provider: Rosana Alaniz CNP Start: 12-28-2018 End: 01-03-2020 Daily Raegan Oral Tablet 12/28 - 01/03/2020 Provider: Rosana Alaniz CNP diclofenac sodium 0.01 mg/mg topical gel (13 sources) Nonsteroidal Anti-inflammatory Drug Start: 08-05-2020 Voltaren 1% External Gel 08/05/2020 Provider: Rosana Alaniz CNP Start: 06-26-2019 End: 08-05-2020 Voltaren 1% Transdermal Gel 06/26/2019 - 08/05/2020 Provider: Rosana Alaniz CNP Start: 06-26-2019 Voltaren 1% Tr ansdermal Gel 06/26/2019 Provider: Rosana lAaniz CNP Start: 06-26-2019 End: 07-04-2019 Voltaren 1% Transdermal Gel 06/26/2019 - 07/04/2019 Provider: Start: 06-26-2019 End: 07-04-2019 Voltaren 1% Transdermal Gel 06/26/2019 Provider: Rosana Alaniz CNP docosahexaenoic acid 200 mg oral capsule (2 sources) Start: 05-26-2023 take 1 capsule by mouth once daily Docosahexaenoic Acid ( Dha) 200 mg capsule Active 200 MG PO Daily May 26, 2023 12:00am doxycycline hyclate 100 mg oral tablet (18 sources) Tetracyclin e-class Drug Start: 07-10-2020 Doxycycline Hyclate 100 MG Oral Tablet 07/10/2020 Provider: Rosana Alaniz CNP Start: 05-24-2019 End: 07-16-2019 Doxycycline Hyclate 100 MG O ral Capsule 05/24/2019 - 07/16/2019 Provider: Rosana Alaniz CNP Start: 11-14-2018 End: 11-14-2018 doxycycline hyclate (VIBRAMY KEARA) capsule 100 mg Start: 11-14-2018 End: 11-21-2018 take 1 tablet by mouth twice daily doxycycline hyclate (VIBRA-TABS) 100 MG tablet Take 1 tablet by mouth 2 times daily for 7 days 14 tablet 0 11/14/2018 11/21/2018 Active famotidine 40 mg oral tablet (20 sources) Histamine-2 Receptor Antagonist Start: 05-26-2023 take 40 mg by mouth once daily at bedtime Famotidine Active 40 MG PO Daily at bedtime May 26, 2023 12:00am Start: 12-13-2022 take 1 tablet by enriqueta th every twenty-four hours Famotidine 40 MG 1 tablet at bedtime Orally Once a day for 30 days Dec, Active Start: 03-30-2017 End: 02-04-2020 Famotidine 40 MG OR TABS 03/30/2017 - 02/04/2020 Provider: ferrous sulfate 325 mg oral tablet (20 sources) Start: 05-05-2018 Ferrous Sulfat e 325 (65 Fe)MG Oral Tablet 05/05/2018 Provider: Start: 04-01-2018 End: 02-04-2020 FERROUS SULFATE 325 mg (65 M G IRO [facility] [place] 04/01/2018 - 02/04/2020 Provider: Start: 04-01-2018 End: 04-01-2018 FERROUS SULFATE 325 mg (65 M G IRO [facility] 04/01/2018 - 04/01/2018 Provider: Start: 04-01-2018 End: 04-01-2018 FERROUS SULFATE 325 mg(65 MG IRO [facility] 04/01/2018 - 04/01/2018 Provider: Start: 11-24-2017 take 1 tablet by enriqueta th once daily ferrous sulfate 325 mg (65 mg iron) oral tablet 11/24/2017 take 1 tablet (325 mg) by oral route once daily Start: 11-24-2017 End: 02-04-2020 FERROUS SULFATE 325 mg (65 M G IRO MIS 11/24/2017 - 02/04/2020 Provider: Start: 11-24-2017 End: 11-24-2017 FERROUS SULFATE 325 mg (65 M G IRO MISC 11/24/2017 - 11/24/2017 Provider: Start: 11-24-2017 End: 11-24-2017 FERROUS SULFATE 325 mg(65 MG IRO MIS 11/24/2017 - 11/24/2017 Provider: take 1 tablet by enriqueta th once daily ferrous sulfate 325 mg (65 mg iron) oral tablet take 1 tablet (325 mg) by oral route once daily Fiber (14 sources) Fiber Active Flash Glucose Scanning Wilcox (Freestyle Vy 2 Wilcox) misc (2 sources) Start: 04-28-2023 Flash Glucose Scanning Wilcox (Freestyle Vy 2 Wilcox) mis Active 0 .Route 1 April 28, 2023 1:00am As directed Flash Glucose Sensor (Freestyle Vy 2 Sensor) kit (2 sources) Start: 04-28-2023 Flash Glucose Sensor (Freestyle Vy 2 Sensor) kit Active 0 .Route 2 April 28, 2023 1:00am As directed fluconazole 150 mg oral tablet (20 sources) Azole Antifungal Start: 08-06-2020 End: 01-12-2021 Fluconazole 150 MG Oral Tablet 01/12/2021 Provider: Rosana Alaniz CNP Start: 07-10-2020 End: 07-10-2020 Diflucan 150 MG Oral Tablet 07/10/2020 - 07/10/2020 Provider: Rosana Alaniz CNP Start: 01-28-2020 End: 03-13-2020 Diflucan 150 MG Oral Tablet 01/28/2020 - 03/13/2020 Provider: Rosana Alaniz CNP Start: 01-24-2020 End: 10-25-2019 Diflucan 150 MG Oral Tablet 01/24/2020 - 10/25/2019 Provider: Rosana Alaniz CNP Start: 01-24-2020 End: 10-25-2019 Diflucan 150 MG Oral Tablet 01/24/2020 - 10/25/2019 Provider: Rosana Alaniz CNP Start: 01-24-2020 End: 10-25-2019 Diflucan 150 MG Oral Tablet 01/24/2020 - 10/25/2019 Provider: Rosana Alaniz CNP Start: 01-24-2020 End: 10-25-2019 Diflucan 150 MG Oral Tablet 01/24/2020 - 10/25/2019 Provider: Rosana Alaniz CNP Start: 12-09-2016 take 1 tablet by mouth once Di flucan 150 mg oral tablet 12/09/2016 take 1 tablet (150 mg) by oral route once Start: 12-09-2016 End: 02-04-2020 Diflucan 150 MG OR TABS 04/2016 - 02/04/2020 Provider: FLUoxetine 40 mg oral capsule (11 sources) Serotonin Reuptake Inhibitor Start: 03-08-2019 PROzac 40 MG Oral Capsule 03/08/2019 Provider: folic acid 1 mg oral tablet (2 sources) Start: 10-20-2022 End: 10-20-2023 take 1 tablet by mouth in the morning folic acid (Folvite) 1 MG tablet Indications: Vitamin deficiency Take 1 tablet (1 mg) by mouth in the morning. 60 tablet 3 10/20/2022 10/20/2023 Active furosemide 20 mg oral tablet (20 sources) Loop Diuretic Start: 05-26-2023 End: 05-26-2023 take 20 mg by mouth once daily Furosemide Active 20 MG PO Daily 90 90 May 26, 2023 2:20pm Start: 12-06-2022 take 1 tablet by enriqueta th once daily as needed Furosemide 20 MG 1 tablet Orally Once a day as needed for 30 days Dec, Active Start: 06-07-2021 take 1 tablet by enriqueta th twice daily furosemide (LASIX) 40 mg tablet Take 1 tablet (40 mg total) by mouth 2 (two) times a day. 0 06/07/2021 Active Start: 03-31-2017 End: 11-12-2020 Furosemide 40 MG OR TABS - 02/04/2020 Provider: take 1 tablet by enriqueta once daily furosemide (LASIX) 40 MG tablet Take 40 mg by mouth daily 0 Active Glucometer Device (3 sources) Start: 03-18-2023 Glucometer Device as directed as directed as directed for 30 days Mar, Active 24 hr guanFACINE 1 mg extended release oral tablet (11 sources) Central alpha-2 Adrenergic Agonist Start: 03-08-2019 guanFACINE HCl ER 1 MG Oral Tablet Extended Release 24 Hour 03/08/2019 Provider: lisdexamfetamine dimesylate 50 mg oral capsule (17 sources) Central Nervous System Stimulant Start: 05-26-2023 take 50 mg by mouth once daily Lisdexamfetamine Active 50 MG PO Daily May 26, 2023 12:00am Start: 12-01-2022 take 1 capsule by mo ut at bedtime lisdexamfetamine (VYVANSE) 30 mg capsule Take 1 capsule (30 mg total) by mouth in the morning and at bedtime. 0 12/01/2022 Active take 1 capsule by mo uth every twenty-four hours Vyvanse 50 MG 1 capsule in the morning Orally Once a day Active take 1 capsule by mo uth in the morning lisdexamfetamine (Vyvanse) 60 MG capsule Take 60 mg by mouth in the morning. 0 Active loratadine 10 mg oral tablet (20 sources) Start: 04-01-2018 End: 02-04-2020 Loratadine 10 MG Oral Tablet 03/08/2019 Provider: meloxicam 7.5 mg oral tablet (15 sources) Nonsteroidal Anti-inflammatory Drug Start: 06-26-2019 End: 11-12-2020 Meloxicam 7.5 MG Oral Tablet 11/12/2020 Provider: Rosana Alaniz CNP methylPREDNISolone 4 mg oral tablet (20 sources) Corticosteroid Start: 12-16-2022 methylPREDNISolone (MEDROL, NICO,) 4 mg tablet Indications: Spinal stenosis of lumbar region with neurogenic claudication , Lumbar radiculopathy Take 1 tablet (4 mg total) by mouth See Admin Instructions. Use as directed by package instructions 21 tablet 0 12/16/2022 Active Start: 01-04-2019 End: 01-10-2019 Medrol 4 MG Oral Tablet Ther apy Pack 01/04/2019 - 01/10/2019 Provider: Primitivo Lujan CNP mirtazapine 15 mg oral tablet (12 sources) Start: 02-20-2019 Remeron 15 MG Oral Tablet 02/20/2019 Provider: Multiple Vitamins-Minerals (THERAPEUTIC MULTIVITAMIN-MINERALS) tablet (8 sources) take 1 tablet by mouth once daily Multiple Vitamins-Minerals (THERAPEUTIC MULTIVITAMIN-MINERALS) tablet Take 1 tablet by mouth daily 0 Active multivit with minerals/lutein (MULTIVITAMIN 50 PLUS ORAL) (8 sources) multivit with minerals/lutein (MULTIVITAMIN 50 PLUS ORAL) 1 tablet 0 Active Multivitamin preparation (16 sources) Start: 05-26-2023 take 1 tablet by mouth once daily Multivitamin Active 1 TAB PO Daily May 26, 2023 12:00am Multivitamin Act valery mupirocin 0.02 mg/mg topical ointment (20 sources) RNA Synthetase Inhibitor Antibacterial Start: 05-26-2023 Mupirocin Active 1 APPLIC TOPICAL Three times daily May 26, 2023 12:00am Start: 01-19-2022 Mupirocin 2 % 1 application Externally Three times a day for 7 days Jan, Active Start: 03-09-2018 End: 02-04-2020 Mupirocin Calcium 2% EX CREA 03/09/2018 - 02/04/2020 Provider: Start: 03-29-2017 mupirocin 2 % topical ointment 03/29/2017 apply thin layer to affected areas three times daily for 10-14 days Start: 03-29-2017 End: 07-10-2020 Mupirocin 2% EX OINT 018 - 02/04/2020 Provider: naloxone hydrochloride 40 mg/ml nasal spray (6 sources) Opioid Antagonist Start: 03-13-2020 Narcan 4 MG/ 0.1ML Nasal Liquid 03/13/2020 Provider: Start: 01-29-2019 naloxone (NARC AN) 4 MG/0.1ML LIQD nasal spray 1 spray by Nasal route as needed for Opioid Reversal 1 each 2 01/29/2019 Active naratriptan 2.5 mg oral tablet (8 sources) Serotonin-1b and Serotonin-1d Receptor Agonist Start: 05-25-2021 naratriptan (AMERGE) 2.5 mg tablet TAKE 1 TABLET BY MOUTH NEEDED FOR MIGRAINE. MAX OF 2 TABLETS IN 24 HOURS 0 05/25/2021 Active nystatin 485740 unt/ml / triamcinolone acetonide 1 mg/ml topical cream (20 sources) Polyene Antifungal, Corticosteroid Start: 11-20-2018 End: 02-20-2019 Nystatin-Triamcin olone 079675-8.1 UNIT/GM-% External Cream 02/20/2019 Provider: Rosana Alaniz CNP ondansetron 4 mg oral tablet (20 sources) Serotonin-3 Receptor Antagonist Start: 04-11-2023 End: 04-17-2023 take 1 tablet by mouth every six hours for nausea ondansetron (Zofran) 4 MG tablet Indications: Screen for STD (sexually transmitted disease) Take 1 tablet (4 mg) by mouth every 6 (six) hours if needed for nausea or vomiting for up to 6 days 24 tablet 0 04/11/2023 04/17/2023 Active Start: 2019 End: 2019 take 1 tablet by mouth every eight hours as needed for nausea ondansetron (ZOFRAN ODT) 4 MG disintegrating tablet Take 1 tablet by mouth every 8 hours as needed for Nausea or Vomiting 12 tablet 0 2019 Active Start: 01-03-2019 End: 01-03-2019 ondansetron (ZOFRAN) injecti on 4 mg Start: 04-01-2018 End: 02-04-2020 ONDANSETRON 4 mg [facility] [place] - 02/04/2020 Provider: Start: 04-01-2018 End: 04-01-2018 ONDANSETRON 4 mg [facility] [place] - 04/01/2018 Provider: take 1 tablet by enriqueta three times daily as needed ondansetron 4 mg oral tablet,disintegrating dissolve 1 tablet by oral route 3 times a day as needed takes phenergan 12 hr orphenadrine citrate 100 mg extended release oral tablet (1 source) Muscle Relaxant Start: 2019 End: 01-16-2019 take 1 tablet by mouth twice daily orphenadrine (NORFLEX) 100 MG extended release tablet Take 1 tablet by mouth 2 times daily for 5 days 10 tablet 0 2019 01/16/2019 Active oxyCODONE hydrochloride 5 mg oral tablet (2 sources) Opioid Agonist Start: 10-15-2018 End: 10-20-2018 take 1 tablet by mouth every six hours as needed for pain, then take 1 tablet by mouth as needed for pain oxyCODONE (ROXICODONE) 5 MG immediate release tablet Indications: Injury of left foot, initial encounter Take 1 tablet by mouth every 6 hours as needed for Pain for up to 5 days. Intended supply: 5 days. Take lowest dose possible to manage pain 5 tablet 0 10/15/2018 10/20/2018 Active pantoprazole 40 mg delayed release oral tablet (20 sources) Proton Pump Inhibitor Start: 05-25-2021 take 1 tablet by mouth once daily Pantoprazole (Protonix) 40 mg tablet,delayed release (DR/EC) Active 40 MG PO Daily May 26, 2023 12:00am Start: 03-08-2019 End: 03-08-2019 Pantoprazole Sodium 40 MG Or al Tablet Delayed Release 03/08/2019 - 03/08/2019 Provider: take 40 mg by mouth once daily before breakfast pantoprazole sodium (PROTONIX) 40 MG PACK packet Take 40 mg by mouth every morning (before breakfast) 0 Active microencapsulated potassium chloride 10 meq extended release oral tablet (20 sources) Start: 04-28-2023 End: 04-28-2023 take 10 mEq by mouth once daily Potassium Chloride Active 10 MEQ PO Daily 90 90 April 28, 2023 2:08pm Start: 05-05-2018 End: 08-19-2020 Potassium Chloride ER 20MEQ Oral Tablet Extended Release 08/22/2018 - 09/03/2019 Provider: Rosana Alaniz CNP Start: 04-01-2018 End: 02-04-2020 POTASSIUM CHLORIDE 20 mEq [place] 04/01/2018 - 02/04/2020 Provider: Start: 04-01-2018 End: 04-01-2018 POTASSIUM CHLORIDE 20 mEq [place] 04/01/2018 - 04/01/2018 Provider: Start: 07-14-2017 End: 02-04-2020 POTASSIUM CHLORIDE 20 mEq [place] 07/14/2017 - 02/04/2020 Provider: Start: 07-14-2017 End: 07-14-2017 POTASSIUM CHLORIDE 20 mEq [place] 07/14/2017 - 07/14/2017 Provider: Start: 07-14-2017 take 1 tablet by enriqueta twice daily potassium chloride 20 mEq oral tablet extended release 07/14/2017 1 (one) Tablet by mouth two times daily pregabalin 225 mg oral capsule (20 sources) Start: 05-26-2023 take 225 mg by mouth twice daily Pregabalin Active 225 MG PO Twice daily May 26, 2023 12:00am Start: 05-05-2018 End: 07-02-2019 Lyrica 225MG Oral Capsule 09/11/2018 - 11/20/2018 Provider: Rosana Alaniz CNP Start: 04-01-2018 End: 02-04-2020 [facility] - 02/04/2020 Provider: Start: 04-01-2018 End: 04-01-2018 LYRICA 225 MG [facility] - 04/01/2018 Provider: Start: 04-01-2018 End: 04-01-2018 LYRICA 225MG [facility] 04/01/2018 - 04/01/2018 Provider: take 1 capsule by mo uth in the morning pregabalin (Lyrica) 25 MG capsule Take 25 mg by mouth in the morning and 25 mg before bedtime. 0 Active take 1 capsule by mo uth twice daily pregabalin (LYRICA) 100 MG capsule Take 100 mg by mouth 2 times daily. 0 Active (14 sources) Active Vit-Fe Fumarate-FA ( Vitamins) 28-0.8 MG tablet (2 sources) Start: 10-21-19 End: 10-20-19 take 1 tablet by mouth in the morning Vit-Fe Fumarate-FA ( Vitamins) 28-0.8 MG tablet Indications: Vitamin deficiency Take 1 tablet by mouth in the morning. 30 tablet 6 10/20/2022 10/20/2023 Active Psyllium Husk (Daily Fiber) 0.4 gram capsule (2 sources) Start: 05-26-19 Psyllium Husk (Daily Fiber) 0.4 gram capsule Active 0.4 GM PO Daily May 26, 2023 12:00am silver sulfADIAZINE 10 mg/ml topical cream (8 sources) Sulfonamide Antibacterial Start: 09-23-19 Silvadene 1 % 1 application Externally Once a day for 10 days Sep, Active Start: 09-22-2022 Silvadene 1 % 1 application Externally Once a day for 10 days Sep, Active 1000 ml sodium chloride 9 mg /ml injection (2 sources) Start: 12-27-2020 0.9 % sodium c hloride infusion Start: 01-03-2019 0.9 % sodium c hloride infusion sofosbuvir 400 mg / velpatasvir 100 mg oral tablet (2 sources) Hepatitis C Virus NS5A Inhibitor, Hepatitis C Virus Nucleotide Analog NS5B Polymerase Inhibitor Start: 03-20-2021 take 3 tablets by mouth every twenty-four hours Sofosbuvir-Velpatasvir 400-100 MG 3 TABLETS Orally Once a day for 28 day(s) Mar, Active Tab-A-Raegan Oral Tablet (6 sources) Start: 05-05-2018 Tab-A-Raegan Oral Tablet 05/05/2018 Provider: thioctic acid 600 mg oral capsule (20 sources) Start: 10-05-2018 End: 10-20-2020 Alpha-Lipoic Acid 600 MG Oral Capsule 10/20/2020 Provider: Rosana Alaniz CNP traMADol hydrochloride 50 mg oral tablet (2 sources) Opioid Agonist Start: 01-20-2022 take 1 tablet by mouth twice daily as needed traMADol (Ultram) 50 MG tablet Take 50 mg by mouth 2 (two) times a day as needed. 0 01/20/2022 Active traZODone hydrochloride 100 mg oral tablet (4 sources) Serotonin Reuptake Inhibitor Start: 05-26-2023 take 100 mg by mouth once daily Trazodone Active 100 MG PO Daily May 26, 2023 12:00am traZODone HCl 10 0 MG Oral for 30 Days Active valACYclovir 1000 mg oral tablet (20 sources) Herpesvirus Nucleoside Analog DNA Polymerase Inhibitor, Herpes Simplex Virus Nucleoside Analog DNA Polymerase Inhibitor, Herpes Zoster Virus Nucleoside Analog DNA Polymerase Inhibitor Start: 02-16-2023 take 1 tablet by mouth in the morning valACYclovir (Valtrex) 1 g tablet Indications: Exposure to STD TAKE 1 TABLET (1000 MG) BY MOUTH IN THE MORNING 10 tablet 1 02/16/2023 Active Start: 08-16-2017 End: 02-04-2020 VALACYCLOVIR 500 mg [facility] [place]/2018 - 02/04/2020 Provider: Start: 08-16-2017 End: 08-16-2017 VALACYCLOVIR 500 mg [facility] [place] 02/2018 - 08/16/2017 Provider: Start: 04-24-2016 End: 11-03-2020 take 1 tablet by mouth in the morning valACYclovir (VALTREX) 500 mg tablet Take 1 tablet (500 mg total) by mouth in the morning. 1 04/24/2016 Active vitamin b12 1 mg/ml injectable solution (20 sources) Vitamin B12 Start: 06-01-2021 cyanocobalamin (VITAMIN B-12) 1,000 mcg/mL injection INJECT 1ML IN THE MUSCLE ONCE A MONTH 0 06/01/2021 Active Start: 01-21-2019 End: 12-10-2020 Cyanocobalamin 1000 MCG/ML Injection Solution 12/10/2020 Provider: Rosana Alaniz CNP Start: 01-21-2019 Cyanocobalamin 1000 MCG/ML Injection Solution 01/21/2019 Provider: Rosana Alaniz CNP Start: 01-21-2019 Cyanocobalamin 1000 MCG/ML Injection Solution 01/21/2019 Provider: Rosana Alaniz CNP Start: 05-05-2018 Cyanocobalamin 1000MCG/ML Injection Solution 05/05/2018 Provider: Start: 04-01-2018 End: 04-01-2018 CYANOCOBALAMIN (VITAMIN B-12 ) 1,000MCG/ML [facility] [place]/01/2018 - 04/01/2018 Provider: Start: 02-16-2018 take 1 mL by intramu scular injection every month cyanocobalamin (vitamin B-12) 1,000 mcg/mL injection solution 02/16/2018 inject 1 milliliter (1,000 mcg) by intramuscular route once a month Start: 02-16-2018 End: 02-16-2018 CYANOCOBALAMIN (VITAMIN B-12 ) 1,000MCG/ML [facility] [place] 02/16/2018 - 02/16/2018 Provider: Start: 12-22-2017 End: 02-16-2018 take 1 tablet under the tongue once daily Vitamin B-12 5,000 mcg sublingual tablet, sublingual 12/22/2017 02/16/2018 place 1 tablet under tongue by translingual route daily (told to take 2500 mcg daily on 12/22/17) says doesnt work as well as shots Start: 08-16-2017 take 1 tablet under the tongue once daily Vitamin B-12 5,000 mcg sublingual tablet, sublingual 08/16/2017 place 1 tablet under tongue by translingual route daily Vitamin B12 Acti ve Cyanocobalamin ( B-12 IJ) Inject as directed 0 Active inject 1 mL by intra muscular injection every month cyanocobalamin (vitamin B-12) 1,000 mcg/mL injection solution inject 1 milliliter (1,000 mcg) by intramuscular route once a month vitamin d 1000 unt oral tablet (7 sources) take 1 tablet by mouth once daily vitamin D (CHOLECALCIFEROL) 1000 UNIT TABS tablet Take 1,000 Units by mouth daily 0 Active Zinc (20 sources) Start: 03-06-2019 Zinc 50 MG Oral Tablet 03/06/2019 Provider: Rosana Alaniz CNP Start: 05-05-2018 End: 03-08-2019 Zinc 50MG Oral Tablet 2018 - 03/08/2019 Provider: Start: 05-05-2018 Zinc 50MG Oral Tablet 05/05/2018 Provider: Start: 02-21-2018 End: 02-04-2020 Zinc 50 MG OR TABS - 02/04/2020 Provider: Start: 02-21-2018 End: 02-21-2018 Zinc 50 MG OR TABS - 02/21/2018 Provider: Start: 02-21-2018 End: 02-21-2018 Zinc 50MG OR TABS 02/21/2018 - 02/21/2018 Provider: Completed/Discontinued Medications Medication Drug Class(es) Dates Sig (Normalized) Sig (Original) Acetaminophen / butalbital / Caffeine (20 sources) Barbiturate, Central Nervous System Stimulant, Methylxanthine Start: 04-01-2018 End: 02-04-2020 FIORICET 50-300-40 MG [facility] [place]/01/2018 - 02/04/2020 Provider: Start: 04-01-2018 End: 04-01-2018 FIORICET 50-300-40 MG [facility] [place] 04/01/2018 - 04/01/2018 Provider: Start: 04-01-2018 End: 04-01-2018 FIORICET 50-300-40MG [facility] [place] 04/01/2018 - 04/01/2018 Provider: take 1 tablet by enriqueta th twice daily as needed for headache kxynjjmcwd-tqcvktgxryfou-pfpynrew (FIORICET, ESGIC) 50-325-40 MG per tablet Take 1 tablet by mouth 2 times daily as needed for Headaches or Migraine 0 Active take 2 capsules by m outh every four hours as needed, then take 6 capsules by mouth every twenty-four hours as needed Fioricet 50-300-40 mg oral capsule take 2 capsules by oral route every 4 hours as needed not to exceed 6 capsules per 24hrs acetaminophen 325 mg / oxyCODONE hydrochloride 5 mg oral tablet (20 sources) Opioid Agonist Start: 2019 End: 2019 oxyCODONE-acetaminophen (PERCOCET) 5-325 MG per tablet 2 tablet Start: 2019 End: 01-14-2019 take 1 tablet by mouth every six hours as needed for pain, then take 1 tablet by mouth as needed for pain oxyCODONE-acetaminophen (PERCOCET) 5-325 MG per tablet Indications: Sciatica of left side Take 1 tablet by mouth every 6 hours as needed for Pain for up to 3 days. Intended supply: 3 days. Take lowest dose possible to manage pain 12 tablet 0 2019 01/14/2019 Active Start: 01-03-2019 End: 01-08-2019 take 1 tablet by mouth every six hours as needed for pain oxyCODONE-acetaminophen (PERCOCET) 5-325 MG per tablet Indications: Herniated intervertebral disc of lumbar spine , Neuropathy Take 1 tablet by mouth every 6 hours as needed for Pain for up to 5 days. 15 tablet 0 01/03/2019 01/08/2019 Active Start: 04-01-2018 End: 02-04-2020 oxyCODONE-Acetaminophen 10-3 25 MG OR TABS 04/01/2018 - 02/04/2020 Provider: Conversion Provider End: 10-15-2018 take 1 tablet by mouth once daily oxyCODONE-acetaminophen (PERCOCET) 10-32 5 MG per tablet Take 1 tablet by mouth daily. 0 10/15/2018 Discontinued (LIST CLEANUP) take 1 tablet by enriqueta th every six hours as needed oxycodone-acetaminophen 10-325 mg oral tablet take 1 tablet by oral route every 6 hours as needed Acidophilus Probiotic Oral Tablet (16 sources) Start: 05-05-2018 End: 03-08-2019 Acidophilus Probiotic Oral Tablet 05/05/2018 - 03/08/2019 Provider: Start: 05-05-2018 Acidophilus Pr obiotic Oral Tablet 05/05/2018 Provider: Acidophilus Probiotic Oral Tablet (2 sources) Start: 05-05-2018 End: 03-08-2019 Acidophilus Probiotic Oral Tablet 05/05/2018 - 03/08/2019 Provider: ALCOHOL PREP PADS MISC (20 sources) Start: 03-23-2018 End: 03-23-2018 ALCOHOL PREP PADS MISC 03/23/2018 - 03/23/2018 Provider: Start: 02-16-2018 End: 02-16-2018 ALCOHOL PREP PADS MISC 02/16 - 02/16/2018 Provider: ALCOHOL PREP PADS MISC (8 sources) Start: 03-23-2018 End: 02-04-2020 ALCOHOL PREP PADS MISC 03/23 - 02/04/2020 Provider: Start: 02-16-2018 End: 02-04-2020 ALCOHOL PREP PADS MISC 02/16 - 02/04/2020 Provider: amphetamine aspartate 7.5 mg / amphetamine sulfate 7.5 mg / dextroamphetamine saccharate 7.5 mg / dextroamphetamine sulfate 7.5 mg oral tablet (11 sources) Central Nervous System Stimulant Start: 04-12-2017 take 1 tablet by mouth twice daily before breakfast Adderall 30 mg oral tablet 04/12/2017 take 1 tablet (30 mg) by oral route 2 times per day before breakfast and at noon (F90.9) atropine sulfate 0.025 mg / diphenoxylate hydrochloride 2.5 mg oral tablet (20 sources) Anticholinergic, Cholinergic Muscarinic Antagonist, Antidiarrheal Start: 05-26-2017 End: 03-13-2020 Lomotil 2.5-0.025 MG OR TABS 03/03/2018 - 02/04/2020 Provider: take 1 tablet by enriqueta four times daily as needed diphenoxylate-atropine 2.5-0.025 mg oral tablet take 1 tablet by oral route 4 times a day as needed azaTHIOprine 50 mg oral tablet (20 sources) Purine Antimetabolite Start: 04-01-2018 End: 02-04-2020 azaTHIOprine 50 MG OR TABS 04/01/2018 - 02/04/2020 Provider: Conversion Provider take 1 tablet by mouth every oth er day azathioprine 50 mg oral tablet take 1 tablet by oral route every other day B Complex Vitamins Oral Caps ule (4 sources) Start: 07-09-2019 End: 06-24-2020 B Complex Vitamins Oral Caps ule 07/09/2019 - 06/24/2020 Provider: Rosana Alaniz CNP Start: 05-05-2018 End: 06-15-2018 B Complex Vitamins Oral Caps ule 05/05/2018 - 06/15/2018 Provider: B Complex Vitamins Oral Caps ule, conventional (16 sources) Start: 06-15-2018 End: 07-09-2019 B Complex Vitamins Oral Capsule, conventional 06/15/2018 - 07/09/2019 Provider: Rosana Alaniz CNP Start: 06-15-2018 B Complex Beth mins Oral Capsule, conventional 06/15/2018 Provider: Rosana Alaniz CNP B Complex Vitamins Oral Capsule, conventional (2 sources) Start: 06-15-2018 End: 07-09-2019 B Complex Vitamins Oral Capsule, conventional 06/15/2018 - 07/09/2019 Provider: Rosana Alaniz CNP baclofen 10 mg oral tablet (20 sources) gamma-Aminobutyric Acid-ergic Agonist Start: 04-01-2018 End: 02-04-2020 Baclofen 10 MG OR TABS 04/01/2018 - 02/04/2020 Provider: Conversion Provider Baclofen Active End: 11-24-2017 take 1 tablet by mouth once daily at bedtime baclofen 10 mg oral tablet 11/24/2017 take 1 tablet (10 mg) by oral route daily @ bedtime takes 1/2 tab BD Eclipse Syringe 21G X 1 3 ML Miscellaneous (16 sources) Start: 05-05-2018 End: 03-13-2020 BD Eclipse Syringe 21G X 1 3 ML Miscellaneous 05/05/2018 - 03/13/2020 Provider: Start: 05-05-2018 BD Eclipse Syr tejas 21G X 1 3 ML Miscellaneous 05/05/2018 Provider: BD Eclipse Syringe 21G X 1 3 ML Miscellaneous (2 sources) Start: 05-05-2018 End: 03-13-2020 BD Eclipse Syringe 21G X 1 3 ML Miscellaneous 05/05/2018 - 03/13/2020 Provider: benzonatate 100 mg oral capsule (8 sources) Non-narcotic Antitussive Start: 06-01-2019 End: 07-04-2019 Benzonatate 100 MG Oral Capsule 06/01/2019 - 07/04/2019 Provider: Rosana Alaniz CNP Benzoyl Peroxide (20 sources) Start: 04-01-2018 End: 02-04-2020 BENZOYL PEROXIDE 5% MISC 04/01/2018 - 02/04/2020 Provider: Start: 04-01-2018 End: 04-01-2018 BENZOYL PEROXIDE 5% MISC - 04/01/2018 Provider: benzoyl peroxide 5 % topical cleanser wash the affected area(s) by topical route 2 times per day betamethasone 0.5 mg/ml topical lotion (20 sources) Corticosteroid Start: 05-26-2017 apply 1 drop(s) topically twice daily at bedtime betamethasone dipropionate 0.05 % topical lotion 06/28/2017 APPLY A FEW DROPS TO THE AFFECTED AREAS BY TOPICAL ROUTE 2 TIMES PER DAY IN THE MORNING AND AT BEDTIME ; RUB IN GENTLY AND COMPLETELY Start: 03-15-2017 End: 02-04-2020 Betamethasone Dipropionate 0 .05% EX LOTN 05/26/2017 - 02/04/2020 Provider: Start: 02-22-2017 End: 02-04-2020 Betamethasone Dipropionate 0 .05% EX CREA 02/22/2017 - 02/04/2020 Provider: betamethasone 0.5 mg/ml / clotrimazole 10 mg/ml topical cream (20 sources) Azole Antifungal, Corticosteroid Start: 12-10-2016 clotrimazole-betamethasone 1-0.05 % topical cream 12/10/2016 apply to the affected and surrounding areas of skin by topical route 2 times per day in the morning and evening for 1 month Start: 12-10-2016 End: 02-04-2020 Clotrimazole-Betamethasone 1 -0.05% EX CREA 12/10/2016 - 02/04/2020 Provider: brompheniramine maleate 0.4 mg/ml / dextromethorphan hydrobromide 2 mg/ml / pseudoephedrine hydrochloride 6 mg/ml oral solution (17 sources) alpha-Adrenergic Agonist, Uncompetitive F-carffn-V-aspartate Receptor Antagonist, Sigma-1 Agonist Start: 03-29-2017 take 5-10 mL by mouth every four to six hours as needed for cough Bromfed DM 2-30-10 mg/5 mL oral syrup 03/29/2017 take 5-10 milliliters by oral route every 4-6 hours as needed for cough Brompheniramine / Pseudoephedrine (20 sources) alpha-Adrenergic Agonist Start: 08-18-2017 End: 02-04-2020 BROMFED DM 2-30-10 MG/5 ML MISC 08/18/2017 - 02/04/2020 Provider: Start: 08-18-2017 End: 08-18-2017 BROMFED DM 2-30-10 MG/5 ML M [facility] 08/18/2017 - 08/18/2017 Provider: Start: 08-18-2017 End: 08-18-2017 BROMFED DM 2-30-10MG/5 ML [place] 08/18/2017 - 08/18/2017 Provider: Start: 03-29-2017 End: 02-04-2020 BROMFED DM 2-30-10 MG/5 ML [facility] [place]/29/2017 - 02/04/2020 Provider: Start: 03-29-2017 End: 03-29-2017 BROMFED DM 2-30-10 MG/5 ML [facility] [place]/29/2017 - 03/29/2017 Provider: Start: 03-29-2017 End: 03-29-2017 BROMFED DM 2-30-10MG/5 ML [place] 03/29/2017 - 03/29/2017 Provider: Start: 01-06-2017 End: 02-04-2020 BROMFED DM 2-30-10 MG/5 [place] [facility] [place]/06[place] - 02/04/2020 Provider: Start: 01-06-2017 End: 01-06-2017 BROMFED DM 2-30-10 MG/5 ML M [facility] 01/06/2017 - 01/06/2017 Provider: Start: 01-06-2017 End: 01-06-2017 BROMFED DM 2-30-10MG/5 ML [place] 01/06/2017 - 01/06/2017 Provider: Calcium (20 sources) Phosphate Binder, Calcium Start: 03-08-2019 End: 10-20-2020 Calcium 600 600 MG Oral Tablet 03/08/2019 - 10/20/2020 Provider: Rosana Alaniz [employer] Start: 03-08-2019 Calcium 600 60 0 MG Oral Tablet 03/08/2019 Provider: Rosana Alaniz [employer] Start: 05-05-2018 End: 02-20-2019 Calcium 600 Oral Tablet 03/2018 - 02/20/2019 Provider: Start: 05-05-2018 Calcium 600 Or al Tablet 05/05/2018 Provider: Calcium + D Acti ve CALCIUM 600 WITH VITAMIN D3 600 mg(1,500mg) -400 UNIT MISC (20 sources) Start: 04-01-2018 End: 04-01-2018 CALCIUM 600 WITH VITAMIN D3 600 mg(1,500mg) -400 UNIT MISC 04/01/2018 - 04/01/2018 Provider: Start: 11-24-2017 End: 11-24-2017 CALCIUM 600 WITH VITAMIN D3 600 mg(1,500mg) -400 UNIT MISC 11/24/2017 - 11/24/2017 Provider: CALCIUM 600 WITH VITAMIN D3 600 mg(1,500mg) -400 UNIT MISC (4 sources) Start: 04-01-2018 End: 02-04-2020 CALCIUM 600 WITH VITAMIN D3 600 mg(1,500mg) -400 UNIT MISC 04/01/2018 - 02/04/2020 Provider: Start: 11-24-2017 End: 02-04-2020 CALCIUM 600 WITH VITAMIN D3 600 mg(1,500mg) -400 UNIT MISC 11/24/2017 - 02/04/2020 Provider: CALCIUM 600 WITH VITAMIN D3 600 mg(1,500mg)-400 UNIT MISC (6 sources) Start: 04-01-2018 End: 04-01-2018 CALCIUM 600 WITH VITAMIN D3 600 mg(1,500mg)-400 UNIT MISC 04/01/2018 - 04/01/2018 Provider: Start: 11-24-2017 End: 11-24-2017 CALCIUM 600 WITH VITAMIN D3 600 mg(1,500mg)-400 UNIT MISC 11/24/2017 - 11/24/2017 Provider: calcium carbonate 1500 mg / cholecalciferol 800 unt chewable tablet (9 sources) Vitamin D Start: 11-24-2017 take 1 tablet by mouth twice daily Calcium 600 with Vitamin D3 600 mg(1,500mg) -400 unit oral tablet,chewable 11/24/2017 chew 1 tablet by oral route 2 times a day take 1 tablet by mouth twice andrews ly Calcium 600 with Vitamin D3 600 mg(1,500mg) -400 unit oral tablet,chewable chew 1 tablet by oral route 2 times a day cefTRIAXone (13 sources) Cephalosporin Antibacterial Start: 01-10-2020 Rocephin 500 mg Jan, 500 mg cetirizine hydrochloride 10 mg oral tablet (20 sources) Histamine-1 Receptor Antagonist Start: 05-05-2018 End: 03-08-2019 ZyrTEC Allergy 10MG Oral Tablet 05/05/2018 - 03/08/2019 Provider: Start: 08-16-2017 take 1 tablet by enriqueta once daily Zyrtec 10 mg oral tablet 08/16/2017 take 1 tablet (10 mg) by oral route once daily (d/c claritin) Start: 08-16-2017 End: 02-04-2020 [facility] 10 [facility] 08/16/2017 - 02/04/2020 Provider: Start: 08-16-2017 End: 08-16-2017 ZYRTEC 10 mg MISC 08/16/2017 - 08/16/2017 Provider: Clindamycin (20 sources) Lincosamide Antibacterial Start: 04-01-2018 End: 02-04-2020 CLINDAMYCIN HCL 300 MG [facility] 04/01/2018 - 02/04/2020 Provider: Start: 04-01-2018 End: 04-01-2018 CLINDAMYCIN HCL 300 MG MISC 04/01/2018 - 04/01/2018 Provider: Start: 04-01-2018 End: 04-01-2018 CLINDAMYCIN HCL 300MG MISC 04/01/2018 - 04/01/2018 Provider: take 1 capsule by [facility] four times daily clindamycin HCl 300 mg oral capsule take 1 capsule by oral route 4 times a day clonazePAM 1 mg oral tablet (20 sources) Benzodiazepine Start: 02-01-2017 End: 02-04-2020 KlonoPIN 1 MG OR TABS 03/29/2017 - 02/04/2020 Provider: take 1 tablet by enriqueta twice daily as needed clonazePAM (KLONOPIN) 1 MG tablet Take 1 mg by mouth 2 times daily as needed 0 Active COL-RITE 100 MG MISC (13 sources) Start: 04-01-2018 End: 04-01-2018 COL-RITE 100 MG MISC 019 - 04/01/2018 Provider: COL-RITE 100 MG MISC (2 sources) Start: 04-01-2018 End: 02-04-2020 COL-RITE 100 MG MISC 019 - 02/04/2020 Provider: COL-RITE 100MG MISC (3 sources) Start: 04-01-2018 End: 04-01-2018 COL-RITE 100MG MISC 04/01/19 19 - 04/01/2018 Provider: CYANOCOBALAMIN (VITAMIN B-12 ) 1,000 MCG/ML MISC (20 sources) Start: 04-01-2018 End: 04-01-2018 CYANOCOBALAMIN (VITAMIN B-12 ) 1,000 MCG/ML MISC 04/01/2018 - 04/01/2018 Provider: Start: 02-16-2018 End: 02-16-2018 CYANOCOBALAMIN (VITAMIN B-12 ) 1,000 MCG/ML MISC 02/16/2018 - 02/16/2018 Provider: CYANOCOBALAMIN (VITAMIN B-12 ) 1,000 MCG/ML MISC (4 sources) Start: 04-01-2018 End: 02-04-2020 CYANOCOBALAMIN (VITAMIN B-12 ) 1,000 MCG/ML MISC 04/01/2018 - 02/04/2020 Provider: Start: 02-16-2018 End: 02-04-2020 CYANOCOBALAMIN (VITAMIN B-12 ) 1,000 MCG/ML MISC 02/16/2018 - 02/04/2020 Provider: desonide 0.0005 mg/mg topical ointment (20 sources) Corticosteroid Start: 04-01-2018 End: 02-04-2020 Desonide 0.05% External Ointment 05/05/2018 - 03/08/2019 Provider: desonide 0.05 % topical ointment apply sparingly and rub gently into the affected area(s) by topical route 2 times per day DEXTROAMPHETAMINE-AMPHETAMIN E 30 MG MISC (13 sources) Start: 04-01-2018 End: 04-01-2018 DEXTROAMPHETAMINE-AMPHETAMIN E 30 MG MISC 04/01/2018 - 04/01/2018 Provider: DEXTROAMPHETAMINE-AMPHETAMIN E 30 MG MISC (2 sources) Start: 04-01-2018 End: 02-04-2020 DEXTROAMPHETAMINE-AMPHETAMIN E 30 MG MISC 04/01/2018 - 02/04/2020 Provider: DEXTROAMPHETAMINE-AMPHETAMIN E 30MG MISC (3 sources) Start: 04-01-2018 End: 04-01-2018 DEXTROAMPHETAMINE-AMPHETAMIN E 30MG MISC 04/01/2018 - 04/01/2018 Provider: diazePAM 5 mg oral tablet (3 sources) Benzodiazepin e Start: 2019 End: 2019 diazepam (VALIUM) tablet 5 m g take 1 tablet by enriqueta every eight hours as needed for anxiety diazePAM (Valium) 2 MG tablet Take 2 mg by mouth every 8 (eight) hours if needed for anxiety. 0 Active diphenhydrAMINE (13 sources) Histamine-1 Receptor Antagonist Start: 01-10-2020 Diphenhydramine 05 Jan, 2020 25 mg docusate sodium 100 mg oral capsule (9 sources) take 1 capsule by mouth once daily Col-Rite 100 mg oral capsule take 1 capsule (100 mg) by oral route once daily DULoxetine (20 sources) Serotonin and Norepinephrine Reuptake Inhibitor Start: 04-01-2018 End: 02-04-2020 DULOXETINE 60 MG MISC 04/01/2018 - 02/04/2020 Provider: Start: 04-01-2018 End: 04-01-2018 DULOXETINE 60 MG MISC 2018 - 04/01/2018 Provider: Start: 04-01-2018 End: 04-01-2018 DULOXETINE 60MG MISC 019 - 04/01/2018 Provider: take 1 capsule by mo uth once daily duloxetine 60 mg oral capsule,delayed release(DR/EC) take 1 capsule (60 mg) by oral route once daily eletriptan 40 mg oral tablet (20 sources) Serotonin-1b and Serotonin-1d Receptor Agonist Start: 09-11-2018 End: 10-25-2019 Eletriptan Hydrobromide 40 MG Oral Tablet 10/08/2019 - 10/25/2019 Provider: Rosana Alaniz CNP 2 ml fentaNYL 0.05 mg/ml injection (3 sources) Opioid Agonist Start: 01-03-2019 End: 01-03-2019 fentaNYL (SUBLIMAZE) injection 50 mcg Start: 01-03-2019 End: 01-03-2019 fentaNYL (SUBLIMAZE) injecti on 100 mcg FLONASE ALLERGY RELIEF 50 MCG/ACTUAT MISC (13 sources) Start: 08-16-2017 End: 08-16-2017 FLONASE ALLERGY RELIEF 50 MCG/ACTUAT MISC 08/16/2017 - 08/16/2017 Provider: FLONASE ALLERGY RELIEF 50 MCG/ACTUAT MISC (2 sources) Start: 08-16-2017 End: 02-04-2020 FLONASE ALLERGY RELIEF 50 MCG/ACTUAT MISC 08/16/2017 - 02/04/2020 Provider: FLONASE ALLERGY RELIEF 50MCG/ACTUAT MISC (3 sources) Start: 08-16-2017 End: 08-16-2017 FLONASE ALLERGY RELIEF 50MCG/ACTUAT MISC 08/16/2017 - 08/16/2017 Provider: fluticasone propionate 0.05 mg/actuat metered dose nasal spray (20 sources) Corticosteroid Start: 08-14-2018 End: 03-04-2020 Fluticasone Propionate 50 MCG/ACT Nasal Suspension 03/06/2019 - 03/04/2020 Provider: Rosana Alaniz CNP Start: 05-05-2018 Flonase Allerg y Relief 50MCG/ACT Nasal Suspension 05/05/2018 Provider: Start: 08-16-2017 take 1 spray(s) nasa l route once daily Flonase Allergy Relief 50 mcg/actuation nasal spray,suspension 08/16/2017 inhale 1 spray (50 mcg) in each nostril by intranasal route once daily hydrOXYzine hydrochloride 50 mg oral tablet (20 sources) Antihistamine Start: 04-01-2018 End: 02-04-2020 hydrOXYzine HCl 50 MG OR TABS 04/01/2018 - 02/04/2020 Provider: Conversion Provider take 1 tablet by [facility] four times daily as needed hydroxyzine HCl 50 mg oral tablet take 1 tablet (50 mg) by oral route 4 times per day as needed for itching isopropyl alcohol 0.7 ml/ml medicated pad (1 source) Start: 02-16-2018 Alcohol Prep P ads topical pads, medicated 02/16/2018 apply to affected area prior to injecting b12 Ketorolac (20 sources) Nonsteroidal Anti-inflammatory Drug, Cyclooxygenase Inhibitor Start: 04-12-2020 Toradol per 15 mg Apr, 60 mg Start: 01-10-2020 Toradol per 15 mg Jan, 30 mg Start: 01-03-2019 ketorolac (TOR ADOL) injection 15 mg take 1 tablet by enriqueta th every six hours as needed for pain ketorolac (TORADOL) 10 MG tablet Take 10 mg by mouth every 6 hours as needed for Pain. 0 Active lactobacillus acidophilus [id number] unt oral capsule (9 sources) Start: 02-16-2018 take 1 capsule by mouth once daily Probiotic 10 billion cell oral capsule 02/16/2018 take 1 capsule by oral route daily Start: 02-01-2017 take 1 capsule by [facility] once daily Probiotic 10 billion cell oral capsule 02/01/2017 take 1 capsule by oral route daily loperamide hydrochloride 2 mg oral tablet (20 sources) Opioid Agonist Start: 01-06-2017 End: 02-04-2020 Imodium A-D 2 MG OR TABS 01/06/2017 - 02/04/2020 Provider: MAXALT-PARIMUTUEL CASHIER 10 MG MISC (20 sources) Start: 01-25-2018 End: 01-25-2018 MAXALT-PARIMUTUEL CASHIER 10 MG MISC 01/25/2018 - 01/25/2018 Provider: Start: 08-16-2017 End: 08-16-2017 MAXALT-PARIMUTUEL CASHIER 10 MG MISC 2017 - 08/16/2017 Provider: Start: 05-20-2017 End: 05-20-2017 MAXALT-PARIMUTUEL CASHIER 10 MG MISC 2017 - 05/20/2017 Provider: Start: 02-01-2017 End: 02-01-2017 MAXALT-PARIMUTUEL CASHIER 10 MG MISC 2016 - 02/01/2017 Provider: MAXALT-PARIMUTUEL CASHIER 10 MG MISC (10 sources) Start: 01-25-2018 End: 02-04-2020 MAXALT-PARIMUTUEL CASHIER 10 MG MISC 2017 - 02/04/2020 Provider: Start: 08-16-2017 End: 02-04-2020 MAXALT-PARIMUTUEL CASHIER 10 MG MISC 2017 - 02/04/2020 Provider: Start: 05-20-2017 End: 02-04-2020 MAXALT-PARIMUTUEL CASHIER 10 MG MISC 2017 - 02/04/2020 Provider: Start: 02-01-2017 End: 02-04-2020 MAXALT-PARIMUTUEL CASHIER 10 MG MISC 2016 - 02/04/2020 Provider: MAXALT-PARIMUTUEL CASHIER 10MG MISC (15 sources) Start: 01-25-2018 End: 01-25-2018 MAXALT-PARIMUTUEL CASHIER 10MG MISC 018 - 01/25/2018 Provider: Start: 08-16-2017 End: 08-16-2017 MAXALT-PARIMUTUEL CASHIER 10MG MISC 018 - 08/16/2017 Provider: Start: 05-20-2017 End: 05-20-2017 MAXALT-PARIMUTUEL CASHIER 10MG MISC 018 - 05/20/2017 Provider: Start: 02-01-2017 End: 02-01-2017 MAXALT-PARIMUTUEL CASHIER 10MG MISC 017 - 02/01/2017 Provider: Medical Compression Stocking s Miscellaneous (11 sources) Start: 01-04-2019 End: 02-03-2019 Medical Compression Stockings Miscellaneous 01/04/2019 - 02/03/2019 Provider: Primitivo Lujan [employer] Medical Compression Stocking s Miscellaneous (2 sources) Start: 01-04-2019 End: 02-03-2019 Medical Compression Stockings Miscellaneous 01/04/2019 - 02/03/2019 Provider: Primitivo Huffmanix [employer] 1 ml medroxyPROGESTERone acetate 150 mg/ml injection (20 sources) Progestin Start: 05-05-2018 Depo-Provera 1 50 MG/ML IM SUSP 01/04/2019 Primitivo Huffmanix [employer]ER Start: 04-01-2018 End: 02-04-2020 DEPO-PROVERA MISC 04/01/2018 - 02/04/2020 Provider: Start: 04-01-2018 End: 04-01-2018 DEPO-PROVERA MISC 04/01/2018 - 04/01/2018 Provider: Depo-Provera int ramuscular methocarbamol 500 mg oral tablet (20 sources) Muscle Relaxant Start: 10-06-2021 End: 03-16-2023 methocarbamoL (ROBAXIN) 500 mg tablet 2 (two) times a day. 0 10/06/2021 03/16/2023 Discontinued (Ineffective) Start: 02-06-2019 End: 10-14-2020 Methocarbamol 500 MG Oral Ta blet 02/20/2019 - 06/01/2019 Provider: Rosana Alaniz CNP metroNIDAZOLE 500 mg oral tablet (13 sources) Nitroimidazole Antimicrobial Start: 06-01-2019 End: 07-16-2019 Flagyl 500 MG Oral Tablet 07/04/2019 - 07/16/2019 Provider: Rosana Alaniz CNP moxifloxacin 400 mg oral tablet (20 sources) Quinolone Antimicrobial Start: 01-19-2018 End: 02-04-2020 Avelox 400 MG OR TABS 01/19/2018 - 02/04/2020 Provider: nitrofurantoin, macrocrystals 25 mg / nitrofurantoin, monohydrate 75 mg oral capsule (5 sources) Nitrofuran Antibacterial Start: 07-04-2019 End: 07-16-2019 Macrobid 100 MG Oral Capsule 07/04/2019 - 07/16/2019 Provider: Rosana Alaniz CNP polymyxin b [id number] unt/ml / trimethoprim 1 mg/ml ophthalmic solution (9 sources) Dihydrofolate Reductase Inhibitor Antibacterial, Polymyxin-class Antibacterial Start: 05-26-2017 End: 06-05-2017 take 1 drop(s) into the eye(s) every four hours polymyxin B sulf-trimethopri m 10,000 unit- 1 mg/mL ophthalmic (eye) drops 05/26/2017 06/05/2017 instill 1 drop into affected eye by ophthalmic route every 4 hours for 10 days POLYMYXIN B SULF-TRIMETHOPRIM 10,000 unit- 1 MG/ML MISC (13 sources) Start: 05-26-2017 End: 05-26-2017 POLYMYXIN B SULF-TRIMETHOPRI M 10,000 unit- 1 MG/ML MISC 05/26/2017 - 05/26/2017 Provider: POLYMYXIN B SULF-TRIMETHOPRIM 10,000 unit- 1 MG/ML MISC (2 sources) Start: 05-26-2017 End: 02-04-2020 POLYMYXIN B SULF-TRIMETHOPRI M 10,000 unit- 1 MG/ML MISC 05/26/2017 - 02/04/2020 Provider: POLYMYXIN B SULF-TRIMETHOPRIM 10,000 unit-1 MG/ML MISC (3 sources) Start: 05-26-2017 End: 05-26-2017 POLYMYXIN B SULF-TRIMETHOPRI M 10,000 unit-1 MG/ML MISC 05/26/2017 - 05/26/2017 Provider: potassium 99 mg extended release oral tablet (18 sources) Start: 04-01-2018 End: 02-04-2020 Potassium 99 MG OR TABS 04/01/2018 - 02/04/2020 Provider: Conversion Provider take 1 tablet by mouth twice andrews ly potassium 99 mg oral tablet take 1 tablet by oral route 2 times a day potassium,chelated 99 mg ora l tablet (9 sources) Start: 04-01-2018 End: 04-01-2018 Potassium 99 MG OR TABS 04/01/2018 - 04/01/2018 Provider: Conversion Provider predniSONE 20 mg oral tablet (20 sources) Start: 12-09-2016 End: 02-04-2020 predniSONE 20 MG OR TABS 02/22/2017 - 02/04/2020 Provider: PROBIOTIC 10 billion CELL AZ SC (20 sources) Start: 02-16-2018 End: 02-16-2018 PROBIOTIC 10 billion CELL MISC 02/16/2018 - 02/16/2018 Provider: Start: 02-01-2017 End: 02-01-2017 PROBIOTIC 10 billion CELL AZ SC 02/01/2017 - 02/01/2017 Provider: PROBIOTIC 10 billion CELL AZ SC (4 sources) Start: 02-16-2018 End: 02-04-2020 PROBIOTIC 10 billion CELL AZ SC 02/16/2018 - 02/04/2020 Provider: Start: 02-01-2017 End: 02-04-2020 PROBIOTIC 10 billion CELL AZ SC 02/01/2017 - 02/04/2020 Provider: PROBIOTIC 10 billionCELL MIS C (6 sources) Start: 02-16-2018 End: 02-16-2018 PROBIOTIC 10 billionCELL MIS C 02/16/2018 - 02/16/2018 Provider: Start: 02-01-2017 End: 02-01-2017 PROBIOTIC 10 billionCELL MIS C 02/01/2017 - 02/01/2017 Provider: promethazine hydrochloride 25 mg oral tablet (20 sources) Phenothiazine Start: 04-28-2019 End: 03-12-2020 Promethazine HCl 25 MG Oral Tablet 09/18/2019 - 03/12/2020 Provider: Rosana Alaniz CNP Start: 05-05-2018 End: 03-08-2019 Promethazine HCl 25MG Oral T ablet 05/05/2018 - 03/08/2019 Provider: Start: 04-01-2018 End: 02-04-2020 PROMETHAZINE 25 MG MISC 03/08 - 02/04/2020 Provider: Start: 04-01-2018 End: 04-01-2018 PROMETHAZINE 25 MG MISC 03/08 - 04/01/2018 Provider: Start: 04-01-2018 End: 04-01-2018 PROMETHAZINE 25MG MISC 04/01 - 04/01/2018 Provider: Start: 11-24-2017 take 1 tablet by enriqueta th every six hours as needed for nausea promethazine 25 mg oral tablet 11/24/2017 take 1 tablet (25 mg) by oral route every 6 hours as needed for nausea/ vomiting Start: 11-24-2017 End: 02-04-2020 PROMETHAZINE 25 MG MISC 2 - 02/04/2020 Provider: Start: 11-24-2017 End: 11-24-2017 PROMETHAZINE 25 MG MISC /2 - 11/24/2017 Provider: Start: 11-24-2017 End: 11-24-2017 PROMETHAZINE 25MG MISC 11/24 - 11/24/2017 Provider: take 1 tablet by enriqueta th every six hours as needed promethazine 25 mg oral tablet take 1 tablet (25 mg) by oral route every 6 hours as needed 24 hr propranolol hydrochloride 160 mg extended release oral capsule (20 sources) beta-Adrenergic Chaz Start: 03-03-2020 End: 07-10-2020 take 1 capsule by mouth every twenty-four hours Propranolol HCl ER 160 MG Oral Capsule Extended Release 24 Hour 07/10/2020 - 07/10/2020 Provider: Rosana Alaniz CNP Start: 02-20-2019 End: 03-08-2019 take 1 capsule by mouth every twenty-four hours Propranolol HCl ER 160 MG Oral Capsule Extended Release 24 Hour 02/20/2019 - 03/08/2019 Provider: Rosana Alaniz CNP Start: 05-05-2018 take 1 capsule by [facility] every twenty-four hours Propranolol HCl ER 160MG Oral Capsule Extended Release 24 Hour 05/05/2018 Provider: Start: 04-01-2018 End: 02-04-2020 PROPRANOLOL 160 MG [facility] [place] 04/01/2018 - 02/04/2020 Provider: Start: 04-01-2018 End: 04-01-2018 [facility] 04/01/2018 - 04/01/2018 Provider: Start: 04-01-2018 End: 04-01-2018 PROPRANOLOL 160MG [facility] [place] 04/01 - 04/01/2018 Provider: Start: 11-24-2017 take 1 capsule by mouth once d aily propranolol 160 mg oral capsule,extended release 24 hr 11/24/2017 take 1 capsule (160 mg) by oral route once daily Start: 11-24-2017 End: 02-04-2020 PROPRANOLOL 160 MG [facility] [place] 11/24/2017 - 02/04/2020 Provider: Start: 11-24-2017 End: 11-24-2017 PROPRANOLOL 160 MG [facility] [place] 11/24/2017 - 11/24/2017 Provider: Start: 11-24-2017 End: 11-24-2017 PROPRANOLOL 160MG [facility] [place] 11/24 - 11/24/2017 Provider: Start: 05-26-2017 take 1 capsule by mouth once d aily propranolol 160 mg oral capsule,extended release 24 hr 05/26/2017 take 1 capsule (160 mg) by oral route once daily Start: 05-26-2017 End: 02-04-2020 PROPRANOLOL 160 MG [facility] [place] 05/26/2017 - 02/04/2020 Provider: Start: 05-26-2017 End: 05-26-2017 PROPRANOLOL 160 MG [facility] [place] 05/26/2017 - 05/26/2017 Provider: Start: 05-26-2017 End: 05-26-2017 PROPRANOLOL 160MG [facility] [place] 05/26 - 05/26/2017 Provider: take 1 tablet by mouth once angely y propranolol (INDERAL) 20 MG tablet Take 20 mg by mouth daily. 0 Active RA Col-Rite 100MG Oral Capsu le (16 sources) Start: 05-05-2018 End: 03-08-2019 RA Col-Rite 100MG Oral Capsu le 05/05/2018 - 03/08/2019 Provider: Start: 05-05-2018 RA Col-Rite 10 0MG Oral Capsule 05/05/2018 Provider: RA Col-Rite 100MG Oral Capsule (2 sources) Start: 05-05-2018 End: 03-08-2019 RA Col-Rite 100MG Oral Capsule 05/05/2018 - 03/08/2019 Provider: rizatriptan 10 mg disintegrating oral tablet (20 sources) Serotonin-1b and Serotonin-1d Receptor Agonist Start: 05-05-2018 End: 03-08-2019 Rizatriptan Benzoate 10MG Oral Tablet Disintegrating 07/13/2018 - 01/21/2019 Provider: Rosana Alaniz CNP Start: 01-25-2018 Maxalt-PARIMUTUEL CASHIER 10 mg oral tablet,disintegrating 01/25/2018 DISSOLVE 1 TABLET (10 MG) ON TOP OF THE TONGUE, THEN SWALLOW BY ORAL ROUTE ONCE, MAY REPEAT IN 2 HOURS, NOT AT SAME TIME IMITREX Start: 08-16-2017 Maxalt-PARIMUTUEL CASHIER 10 mg oral tablet,disintegrating 08/16/2017 dissolve 1 tablet (10 mg) on top of the tongue, then swallow by oral route once, may repeat in 2 hours, not at same time as imitrex Start: 08-16-2017 Maxalt-PARIMUTUEL CASHIER 10 mg oral tablet,disintegrating 08/16/2017 dissolve 1 tablet (10 mg) on top of the tongue, then swallow by oral route once, may repeat in 2 hours, not at same time as imitrex sucralfate 1000 mg oral tablet (5 sources) Aluminum Complex End: 01-03-2019 take 1 tablet by mouth three times daily sucralfate (CARAFATE) 1 GM tablet Take 1 g by mouth 3 times daily 0 01/03/2019 Discontinued (Therapy completed) sulfamethoxazole 800 mg / trimethoprim 160 mg oral tablet (20 sources) Dihydrofolate Reductase Inhibitor Antibacterial, Sulfonamide Antimicrobial Start: 05-26-2023 End: 06-15-2023 take 1 tablet by mouth twice daily Sulfamethoxazole- Trimethoprim (Bactrim Ds) 800-160 mg tablet Discontinued 1 TAB PO Twice daily 24 12May 26, 2023 2:28pm June 15, 2023 4:24pm Start: 09-22-2022 take 1 tablet by enriqueta every twelve hours Sulfamethoxazole-Trimethoprim 800-160 MG 1 tablet Orally Twice a day for 10 days Sep, Active Start: 01-19-2022 take 1 tablet by enriqueta th every twelve hours Bactrim DS 800-160 MG 1 tablet Orally Tw ice a day for 10 day(s) Jan, Active Start: 03-17-2019 End: 09-06-2019 Bactrim DS 800-160 MG Oral T ablet 03/17/2019 - 09/06/2019 Provider: Rosana Alaniz CNP SUMAtriptan 100 mg oral tablet (20 sources) Serotonin-1b and Serotonin-1d Receptor Agonist Start: 02-01-2017 End: 11-11-2020 Imitrex 100 MG OR TABS 05/26/2017 - 02/04/2020 Provider: take 1 tablet by mouth once as n eeded SUMAtriptan (IMITREX) 100 mg tablet Take 1 tablet (100 mg total) by mouth once as needed. 0 Active Tab-A-Raegan (8 sources) Start: 11-24-2017 take 1 tablet by enriqueta th once daily Tab-A-Raegan oral tablet 11/24/2017 take 1 tablet by oral route daily Start: 11-24-2017 take 1 tablet by enriqueta th once daily Tab-A-Raegan oral tablet 11/24/2017 take 1 tablet by oral route daily take 1 tablet by enriqueta th once daily Tab-A-Raegan oral tablet take 1 tablet by oral route daily TAB-A-RAEGAN MISC (20 sources) Start: 04-01-2018 End: 04-01-2018 TAB-A-RAEGAN MISC 04/01/2018 - 04/01/2018 Provider: Start: 11-24-2017 End: 11-24-2017 TAB-A-RAEGAN MISC 11/24/2017 - 11/24/2017 Provider: TAB-A-RAEGAN MISC (8 sources) Start: 04-01-2018 End: 02-04-2020 TAB-A-RAEGAN MISC 04/01/2018 - 02/04/2020 Provider: Start: 11-24-2017 End: 02-04-2020 TAB-A-RAEGAN MISC 11/24/2017 - 02/04/2020 Provider: Tab-A-Raegan oral tablet (1 source) take 1 tablet by mouth once daily Tab-A-Raegan oral tablet take 1 tablet by oral route daily tiZANidine 4 mg oral tablet (13 sources) Central alpha-2 Adrenergic Agonist Start: 2 End: 4 take 1 tablet by mouth three times daily tiZANidine (ZANAFLEX) 4 mg tablet Take 1 tablet (4 mg total) by mouth 3 (three) times a day. 0 10/03/2021 03/16/2023 Discontinued (Ineffective) take 1 capsule by mo uth in the morning, then take 1 capsule by mouth in the evening, then take 1 capsule by mouth at bedtime tiZANidine (Zanaflex) 4 MG capsule Take 4 mg by mouth in the morning and 4 mg in the evening and 4 mg before bedtime. 0 Active tiZANidine HCl 4 MG Orally Q 12 Active End: 2019 take 1 tablet by mouth twice daily tiZANidine (ZANAFLEX) 4 MG tablet Take 4 mg by mouth 2 times daily. 0 2019 Discontinued (Therapy completed) topiramate 100 mg oral table t (20 sources) Start: 11-24-2017 End: 02-04-2020 Topiramate 100 MG OR TABS 04/01/2018 - 02/04/2020 Provider: Conversion Provider urea 400 mg/ml topical lotio n (20 sources) Start: 02-21-2018 End: 03-13-2020 Urea 40% External Lotion 07/03/2018 - 05/01/2019 Provider: Rosana Alaniz CNP vitamin B complex (8 sources) vitamin B comple x oral capsule VITAMIN B COMPLEX MISC (20 sources) Start: 04-01-2018 End: 04-01-2018 VITAMIN B COMPLEX MISC 04/01/2018 - 04/01/2018 Provider: VITAMIN B COMPLEX MISC (4 sources) Start: 04-01-2018 End: 02-04-2020 VITAMIN B COMPLEX MISC 04/01/2018 - 02/04/2020 Provider: vitamin B complex oral capsu le (1 source) vitamin B comple x oral capsule VITAMIN B-12 5,000 MCG MISC (20 sources) Start: 12-22-2017 End: 12-22-2017 VITAMIN B-12 5,000 MCG MISC 12/22/2017 - 12/22/2017 Provider: Start: 08-16-2017 End: 08-16-2017 VITAMIN B-12 5,000 MCG MISC 08/16/2017 - 08/16/2017 Provider: VITAMIN B-12 5,000 MCG MISC (4 sources) Start: 12-22-2017 End: 02-04-2020 VITAMIN B-12 5,000 MCG MISC 12/22/2017 - 02/04/2020 Provider: Start: 08-16-2017 End: 02-04-2020 VITAMIN B-12 5,000 MCG MISC 08/16/2017 - 02/04/2020 Provider: VITAMIN B-12 5,000MCG MISC (6 sources) Start: 12-22-2017 End: 12-22-2017 VITAMIN B-12 5,000MCG MISC 12/22/2017 - 12/22/2017 Provider: Start: 08-16-2017 End: 08-16-2017 VITAMIN B-12 5,000MCG MISC 0 08/16/2017 - 08/16/2017 Provider: vortioxetine 10 mg oral tablet (4 sources) Start: 05-26-2023 End: 06-15-2023 take 1 tablet by mouth once daily Vortioxetine (Trintellix) 10 mg tablet Discontinued 10 MG PO Daily May 26, 2023 12:00am June 15, 2023 4:31pm take 1 tablet by mouth once angely y Trintellix 10 MG TAKE 1 TABLET BY MOUTH EVERY DAY Oral for 30 Days Active Problems Active Problems Problem Classification Problem Date Documented Da te Episodic/Chronic Anxiety disorders (20 sources) Anxiety state, unspecified; Translations: [Anxiety] Onset: 7 Chronic Attention-deficit conduct and disruptive behavior disorders (10 sources) Attention deficit hyperactivity disorder; Translations: [Attention-deficit hyperactivity disorder, unspecified type] 05-26-2023 Chronic Attention-deficit conduct and disruptive behavior disorders (3 sources) Attention-deficit hyperactivity disorder, unspecified type; Translations: [Attention-deficit hyperactivity disorder, unspecified type] Onset: 9 Chronic Attention-deficit, conduct, and disruptive behavior disorders (20 sources) Attention deficit disorder with hyperactivity; Translations: [Attention deficit hyperactivity disorder] Onset: 7 Chronic Attention-deficit, conduct, and disruptive behavior disorders (7 sources) Attention deficit disorder without mention of hyperactivity Onset: 7 Chronic Attention-deficit, conduct, and disruptive behavior disorders (10 sources) Attention deficit hyperactivity disorder, predominantly inattentive type; Translations: [Attention-deficit hyperactivity disorder, predominantly inattentive type] Chronic Attention-deficit, conduct, and disruptive behavior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 Comment on above: Result Comment: [place] Glucose Reference Range is dependent on time and content of last meal. Glucose of more than 200 mg/dL in a nonstressed, ambulatory subject supports the diagnosis of Diabetes Mellitus. ADA recommended reference range Performed By: #### A MM, PT, CMP, PTT, HS TROP, CBC, CK ####[address] Potassium [Moles/Vol] 3.7 mmol/L Normal 3.5-5.1 [facility] Comment on above: Performed By: #### A MM, PT, CMP, PTT, HS TROP, CBC, CK ####[address] Protein [Mass/Vol] 6.6 g/dL Normal 6.4-8.9 The [facility] Comment on above: Performed By: #### A MM, PT, CMP, PTT, HS TROP, CBC, CK ####[address] Sodium [Moles/Vol] 140 mmol/L Normal 136-145 The [facility] Comment on above: Performed By: #### A MM, PT, CMP, PTT, HS TROP, CBC, CK ####[address] Urea nitrogen [Mass/Vol] 11 mg/dL Normal 7-25 [facility] Comment on above: Performed By: #### A MM, PT, CMP, PTT, HS TROP, CBC, CK ####[place] [id number] [facility] Creatine Kinaseon 06-15-2023 CK [Catalytic activity/Vol] 68 U/L Normal 30-223 [facility] Comment on above: Performed By: #### A MM, PT, CMP, PTT, HS TROP, CBC, CK ####[place] [id number] [facility] Creatine kinase [Enzymatic a ctivity/volume] in Serum or PlasmaOrdered By: Nazario Torres on 06-15-2023 CK [Catalytic activity/Vol] 68 U/L 30-223 [facility] Creatinine [Mass/volume] in Serum or PlasmaOrdered By: Nazario Torres on 06-15-2023 Creatinine [Mass/Vol] 0.86 mg/dL 0.60-1.20 [facility] Dipstick and Microscopicon 0 06-15-2023 Appearance (U) Clear Normal Clear The [facility] Comment on above: Order Comment: Name Collection Type:: Straight Catheter Performed By: #### C UU, ADDONUAPLUS, UHCG #### [address] Bacteria,Urine None Seen Normal None Seen The [facility] Comment on above: Order Comment: Name Collection Type:: Straight Catheter Performed By: #### C UU, ADDONUAPLUS, UHCG #### [address] Bilirubin,Urine Negative Normal Negative [facility] Comment on above: Order Comment: Name Collection Type:: Straight Catheter Performed By: #### C UU, ADDONUAPLUS, UHCG #### [address] Color (U) Yellow Normal Yellow [facility] Comment on above: Order Comment: Name Collection Type:: Straight Catheter Performed By: #### C UU, ADDONUAPLUS, UHCG #### [address] Glucose Ql (U) Normal Normal Normal The [facility] Comment on above: Order Comment: Name Collection Type:: Straight Catheter Performed By: #### C UU, ADDONUAPLUS, UHCG #### [address] Hyaline Casts,Urine 0-8 Normal 0-8 [facility] Comment on above: Order Comment: Name Collection Type:: Straight Catheter Performed By: #### C UU, ADDONUAPLUS, UHCG #### [address] Ketones Ql (U) Negative Normal Negative The [facility] Comment on above: Order Comment: Name Collection Type:: Straight Catheter Performed By: #### C UU, ADDONUAPLUS, UHCG #### [address] Leukocyte esterase Test strip Ql (U) 2+ High Negative [facility] Comment on above: Order Comment: Name Collection Type:: Straight Catheter Performed By: #### C UU, ADDONUAPLUS, UHCG #### [place] [id number] [place] Nitrite,Urine Negative Normal Negative The [facility] Comment on above: Order Comment: Name Collection Type:: Straight Catheter Performed By: #### C UU, ADDONUAPLUS, UHCG #### [address] Occult Blood,Urine Negative Normal Negative The [facility] Comment on above: Order Comment: Name Collection Type:: Straight Catheter Performed By: #### C UU, ADDONUAPLUS, UHCG #### [address] Other Casts,Urine None Seen Normal None Seen The [facility] Comment on above: Order Comment: Name Collection Type:: Straight Catheter Performed By: #### C UU, ADDONUAPLUS, UHCG #### [address] pH (U) 7.0 [pH] Normal 5.0-9.0 [facility] Comment on above: Order Comment: Name Collection Type:: Straight Catheter Performed By: #### C UU, ADDONUAPLUS, UHCG #### [place] [address] [place] Protein,Urine Negative Normal Negative The [facility] Comment on above: Order Comment: Name Collection Type:: Straight Catheter Performed By: #### C UU, ADDONUAPLUS, UHCG #### [place] [address] [place] RBC,Urine 1-2 Normal 0-4 [facility] Comment on above: Order Comment: Name Collection Type:: Straight Catheter Performed By: #### C UU, ADDONUAPLUS, UHCG #### [place] [address] [place] Renal Epithelial Cells,Urine 1-2 High 0-1 [facility] Comment on above: Order Comment: Name Collection Type:: Straight Catheter Performed By: #### C UU, ADDONUAPLUS, UHCG #### [place] [address] [place] Specificy [place],Urine 1.016 Normal 1.001-1.030 [facility] Comment on above: Order Comment: Name Collection Type:: Straight Catheter Performed By: #### C UU, ADDONUAPLUS, UHCG #### [facility] [address] Squamous Epithelial Cell,Urine 5-9 High 0-2 [facility] Comment on above: Order Comment: Name Collection Type:: Straight Catheter Performed By: #### C UU, ADDONUAPLUS, UHCG #### [place] [address] [place] Urobilinogen,Urine Normal Normal Normal The [facility] Comment on above: Order Comment: Name Collection Type:: Straight Catheter Performed By: #### C UU, ADDONUAPLUS, UHCG #### [place] [address] [place] WBC,Urine 5-9 High 0-4 [facility] Comment on above: Order Comment: Name Collection Type:: Straight Catheter Performed By: #### C UU, ADDONUAPLUS, UHCG #### [place] [address] [place] Drug Screen,Urineon 06-15-19 24 Amphetamine Screen,Urine Positive High Negative The [facility] Comment on above: Performed By: #### U RDS ####[address] Barbiturate Screen,Urine Negative Normal Negative [facility] Comment on above: Performed By: #### U RDS ####[place] [address] [place] Benzodiazepines Screen,Urine Negative Normal Negative [facility] Comment on above: Performed By: #### U RDS ####[address] Cannabinoid Screen,Urine Positive High Negative [facility] Comment on above: Result Comment: Thes e are unconfirmed results and should not be used for legal purposes. Drug Cut-Off Concentration: AMPH 1000 ng/mL CHUYITA 200 ng/mL DINO 200 ng/mL COCM 300 ng/mL OP 300 ng/mL PCP 25 ng/mL THC 20 ng/mL PERFORMED BY: [place] [address] PATHOLOGIST SEISMOGRAPH SUPERVISOR LAURI PATEL M.D. Performed By: #### U RDS ####[place] [id number] [address] Cocaine Screen,Urine Positive High Negative [facility] Comment on above: Performed By: #### U RDS ####[place] [id number] Opiate Screen,Urine Negative Normal Negative The [facility] Comment on above: Performed By: #### U RDS ####[place] [id number] Phencyclidine Screen,Urine Negative Normal Negative [facility] Comment on above: Performed By: #### U RDS ####[address] ECG 12 lead ECGon 06-15-2023 ECG 12 lead ECG [place] [address] Electrocardiograph Report Signed Patient: Tyrone Lim MR#: [id number] : 1985 Acct:[id number] Age/Sex: 38 / F ADM Date: 06/15/23 Loc: ER Room: Type: [facility] ER Attending Dr: Ordering Provider: Nazario Torres DO Date of Service: 06/15/2312/28/1528 ECG/ECG 12 lead ECG: Altered Mental Status Copies to: Test Reason : Blood Pressure : 105/069 mmHG Vent. Rate : 079 BPM Atrial Rate : 079 BPM P-R Int : 166 ms QRS Dur : 076 ms QT Int : 392 ms P-R-T Axes : 000 126 038 degrees QTc Int : 449 ms Normal sinus rhythm Right axis deviation Confirmed by Nazario TORRES DO ([id number]) on 06/15/2023 6:38:04 PM Referred By: Electronically Signed By:Nazario TORRES DO Transcribed By: MUS Signed By Nazario Torres DO 0 06/15/23 1838 Normal [facility] ECG 12 lead ECG [place] [address] Electrocardiograph Report Signed Patient: Tyrone Lim MR#: [id number] : 1985 Acct:[id number] Age/Sex: 38 / F ADM Date: 06/15/23 Loc: ER Room: Type: [facility] ER Attending Dr: Ordering Provider: Nazario Torres DO Date of Service: 06/15/2312/28/1144 ECG/ECG 12 lead ECG: Altered Mental Status Copies to: Test Reason : Blood Pressure : 122/071 mmHG Vent. Rate : 113 BPM Atrial Rate : 113 BPM P-R Int : 142 ms QRS Dur : 072 ms QT Int : 346 ms P-R-T Axes : 068 083 053 degrees QTc Int : 474 ms Sinus tachycardia Confirmed by Nazario TORRES DO ([id number]) on 06/15/2023 6:34:30 PM Referred By: Electronically Signed By:Nazario TORRES DO Transcribed By: MUS Signed By Nazario Torres DO 0 06/15/23 1834 Normal [facility] Eosinophils Auto (Bld) [#/Vo l]Ordered By: Nazario Torres on 06-15-2023 Eosinophils (Bld) [#/Vol] 0.2 10*3/uL 0.0-0.45 [facility] Eosinophils/100 WBC Auto (Bl d)Ordered By: Nazario Torres on 06-15-2023 Eosinophils/100 WBC (Bld) 4.2 % . [facility] Erythrocyte distribution wid th Auto (RBC) [Ratio]Ordered By: Nazario Torres on 06-15-2023 Erythrocyte distribution width (RBC) [Ratio] 13.9 % 11.9-15.3 [facility] Globulin Calc (S) [Mass/Vol] Ordered By: Nazario Torres on 06-15-2023 Globulin (S) [Mass/Vol] 2.7 g/dL [facility] Glucose [Mass/volume] in Ser um or PlasmaOrdered By: Nazario Torres on 06-15-2023 Glucose [Mass/Vol] 107 mg/dL 70-100 [facility] Comment on above: ADA recommended refe rence rangeRandom Glucose Reference Range is dependent on time and content of last meal. Glucose of more than 200 mg/dL in a nonstressed, ambulatory subject supports the diagnosis of Diabetes Mellitus. HCG ( test) IA.rapi d Ql (U)Ordered By: Nazario Torres on 06-15-2023 HCG ( test) Ql (U) Negative [facility] HCG,Urineon 06-15-2023 Beta HCG ( test) Ql (U) Negative Normal [facility] Comment on above: Order Comment: Name Collection Type:: Straight Catheter Result Comment: PERF ORMED BY: [facility] [address] [place] [address] PATHOLOGIST SEISMOGRAPH SUPERVISOR LAURI PATEL M.D. Performed By: #### C YEHUDA ENCISO [facility] #### [address] Hematocrit Auto (Bld) [Volum e fraction]Ordered By: Nazario Torres on 06-15-2023 Hematocrit (Bld) [Volume fraction] 34.5 % 34.0-46.4 [facility] Hemoglobin [Mass/volume] in BloodOrdered By: Nazario Torres on 06-15-2023 Hemoglobin (Bld) [Mass/Vol] 11.6 g/dL 11.8-15.4 [facility] INR in Platelet poor plasma by Coagulation assayOrdered By: Nazario Torres on 06-15-2023 INR Coag (PPP) [Relative time] 1.1 {INR} [facility] Comment on above: INR Therapeutic Rang e A) Pre- and Peroperative OAT started two weeks before surgery. NOT HIP SURGERY: 1.5 - 2.5 HIP SURGERY: 2 - 3B) Primary and secondary prevention of venous THROMBOSIS: 2 - 3C) Active venous thrombosis, pulmonary embolismand prevention of recurrent venous thrombosis: 2 - 3D) Prevention of arterial thromboembolismincluding patients with mechanical heart valves: 3 - 4.5 Ketones Auto test strip (U) [Mass/Vol]Ordered By: Nazario Torres on 06-15-2023 Ketones (U) [Mass/Vol] Negative Negative [facility] Laboratory - UrinalysisOrder ed By: Nazario Torres on 06-15-2023 Hyaline casts LM Ql (Urine sed) 0-8 [LPF] 0-8 [facility] Leukocytes [#/volume] correc [place] for nucleated erythrocytes in Blood by Automated counOrdered By: Nazario Torres on 06-15-2023 WBC corrected for nucl RBC Auto (Bld) [#/Vol] 5.3 10*3/uL 3.8-11.6 [facility] Lymphocytes Auto (Bld) [#/Vo l]Ordered By: Nazario Torres on 06-15-2023 Lymphocytes (Bld) [#/Vol] 3.0 10*3/uL 1.00-4.8 [facility] Lymphocytes/100 WBC Auto (Bl d)Ordered By: Nazario Torres on 06-15-2023 Lymphocytes/100 WBC (Bld) 57.0 % . [facility] MCH Auto (RBC) [Entitic mass ]Ordered By: Nazario Torres on 06-15-2023 MCH (RBC) [Entitic mass] 30.1 pg 24.7-34.3 [facility] MCHC Auto (RBC) [Mass/Vol]Or dered By: Nazario Torres on 06-15-2023 MCHC (RBC) [Mass/Vol] 33.6 g/dL 32.0-35.0 [facility] MCV Auto (RBC) [Entitic vol] Ordered By: Nazario Torres on 06-15-2023 MCV (RBC) [Entitic vol] 89.4 fL 80-100 [facility] Monocyte distribution width [Entitic volume] in Blood by AutomatedOrdered By: Nazario Torres on 06-15-2023 Monocyte distribution width Auto (Bld) [Entitic vol] 17.73 % 0.00-20.00 [facility] Monocytes Auto (Bld) [#/Vol] Ordered By: Nazario Torres on 06-15-2023 Monocytes (Bld) [#/Vol] 0.3 10*3/uL 0.0-0.8 [facility] Monocytes/100 WBC Auto (Bld) Ordered By: Nazario Torres on 06-15-2023 Monocytes/100 WBC (Bld) 6.0 % . [facility] Neutrophils Auto (Bld) [#/Vo l]Ordered By: Nazario Torres on 06-15-2023 Neutrophils (Bld) [#/Vol] 1.7 10*3/uL 1.8-7.7 [facility] Neutrophils/100 WBC Auto (Bl d)Ordered By: Nazario Torres on 06-15-2023 Neutrophils/100 WBC (Bld) 32.6 % . [facility] Nitrite Test strip Ql (U)Ord ered By: Nazario Torres on 06-15-2023 Nitrite Ql (U) Negative Negative [facility] No Panel InformationOrdered By: Nazario Torres on 06-15-2023 Blood Gas Critical Value See comment [facility] Comment on above: Critical Value quintero d on: 06/15/2023 at 13:02 Blood Gas Sample Site Venous [facility] FiO2 21 % [facility] Venous Blood Base Excess -7.8 mmol/L -3.0-3.0 [facility] Venous Blood Oxygen Content 5.8 mmol/L 6.6-9.7 [facility] Venous Blood Oxygen Saturation 84.8 % 73.0-76.0 [facility] Venous Blood Partial Pressure CO2 36.9 mm[Hg] 38.0-50.0 [facility] Venous Blood Partial Pressure O2 53.5 mm[Hg] 35.0-45.0 [facility] Venous Blood pH 7.30 7.32-7.43 [facility] Estimated GFR (CKD-EPI) > 60.0 mL/Min [facility] Creatinine Clearance (Chem 118.81 [facility] Nucleated erythrocytes [Pres ence] in Blood by Automated countOrdered By: Nazario Torres on 06-15-2023 Nucleated RBC Auto Ql (Bld) 0.1 /100{WBC} 0-0.5 [facility] Opiates [Presence] in Urine by Screen methodOrdered By: Nazario Torres on 06-15-2023 Opiates Screen Ql (U) Negative Negative [facility] Partial Thromboplastin Timeo n 06-15-2023 aPTT Coag (Bld) [Time] 30.4 s Normal 25.1-36.5 [facility] Comment on above: Result Comment: A he matocrit value greater than 55% may lead to inaccurate results in coagulation testing. Patients having hematocrit values >55% require a special collection tube for coagulation studies. Please contact the laboratory at [phone] for redraw instructions. PERFORMED BY: [facility] [address] [place] [address] PATHOLOGIST SEISMOGRAPH SUPERVISOR LAURI PATEL M.D. Performed By: #### A MM, PT, CMP, PTT, HS TROP, CBC, CK ####[facility] [address] [place] [address] [facility] Phencyclidine Screen Ql (U)O rdered By: Nazario Torres on 06-15-2023 Phencyclidine Ql (U) Negative Negative [facility] Platelet mean volume Auto (B ld) [Entitic vol]Ordered By: Nazario Torres on 06-15-2023 Platelet mean volume (Bld) [Entitic vol] 8.7 fL 6.3-10.7 [facility] Platelets Auto (Bld) [#/Vol] Ordered By: Nazario Torres on 06-15-2023 Platelets (Bld) [#/Vol] 196 10*3/uL 150-450 [facility] Potassium [Moles/volume] in Serum or PlasmaOrdered By: Nazario Torres on 06-15-2023 Potassium [Moles/Vol] 3.7 mmol/L 3.5-5.1 [facility] Protein Auto test strip (U) [Mass/Vol]Ordered By: Nazario Torres on 06-15-2023 Protein (U) [Mass/Vol] Negative Negative [facility] Protein [Mass/volume] in Ser um or PlasmaOrdered By: Nazario Torres on 06-15-2023 Protein [Mass/Vol] 6.6 g/dL 6.4-8.9 [facility] Prothrombin Time INRon 06-14 INR Coag (PPP) [Relative time] 1.1 {INR} Normal [facility] Comment on above: Result Comment: INR Therapeutic Range A) Pre- and Peroperative OAT started two weeks before surgery. NOT HIP SURGERY: 1.5 - 2.5 HIP SURGERY: 2 - 3 B) Primary and secondary prevention of venous THROMBOSIS: 2 - 3 C) Active venous thrombosis, pulmonary embolism and prevention of recurrent venous thrombosis: 2 - 3 D) Prevention of arterial thromboembolism including patients with mechanical heart valves: 3 - 4.5 Performed By: #### A MM, PT, CMP, PTT, HS TROP, CBC, CK ####[facility] [place] [id number] [facility] PT Coag (PPP) [Time] 13.2 s High 9.0-12.9 [facility] Comment on above: Result Comment: A he matocrit value greater than 55% may lead to inaccurate results in coagulation testing. Patients having hematocrit values >55% require a special collection tube for coagulation studies. Please contact the laboratory at [phone] for redraw instructions. Performed By: #### A MM, PT, CMP, PTT, HS TROP, CBC, CK ####[facility] [place] [id number] [facility] Prothrombin time (PT)Ordered By: Nazario Torres on 06-15-2023 PT Coag (PPP) [Time] 13.2 s 9.0-12.9 [facility] Comment on above: A hematocrit value g reater than 55% may lead to inaccurate results in coagulation testing. Patients having hematocrit values >55% require a special collection tube for coagulation studies. Please contact the laboratory at [phone] for redraw instructions. RBC Auto (Bld) [#/Vol]Ordere d By: Nazario Torres on 06-15-2023 RBC (Bld) [#/Vol] 3.86 10*6/uL 3.60-5.00 [facility] Serum or plasma albumin/glob ulin mass ratioOrdered By: Nazario Torres on 06-15-2023 Albumin/Globulin [Mass ratio] 1.4 {ratio} [facility] Serum or plasma anion gap de terminationOrdered By: Nazario Torres on 06-15-2023 Anion gap [Moles/Vol] 10.9 mmol/L 6.0-15.0 [facility] Sodium [Moles/volume] in Ser um or PlasmaOrdered By: Nazario Torres on 06-15-2023 Sodium [Moles/Vol] 140 mmol/L 136-145 [facility] Specific gravity Auto test s trip (U) [Rel density]Ordered By: Nazario Torres on 06-15-2023 Specific gravity (U) [Rel density] 1.016 1.001-1.030 [facility] Squamous epithelial cells de tection in urine sediment by light microscopyOrdered By: Nazario Torres on 06-15-2023 Epithelial cells.squamous LM Ql (Urine sed) 5-9 [HPF] 0-2 [facility] Troponin I High Sensitivityo n 06-15-2023 Troponin I High Sensitivity < 2.3 Normal 0.0-15.0 [facility] Comment on above: Result Comment: PERF ORMED BY: [facility] [address] [place] [address] PATHOLOGIST SEISMOGRAPH SUPERVISOR LAURI PATEL M.D. Performed By: #### A MM, PT, CMP, PTT, HS TROP, CBC, CK ####[facility] [address] [place] [address] [facility] Troponin I.cardiac [Mass/vol ume] in Serum or Plasma by Detection limit <= 0.01 ng/Ordered By: Nazario Torres on 06-15-2023 Troponin I.cardiac DL <= 0.01 ng/mL [Mass/Vol] < 2.3 pg/mL 0.0-15.0 [facility] Urea nitrogen [Mass/volume] in Serum or PlasmaOrdered By: Nazario Torres on 06-15-2023 Urea nitrogen [Mass/Vol] 11 mg/dL 7-25 [facility] Urine Cultureon 06-15-2023 Bacteria identified Cx Nom (U) No Growth 2 Days PERFORMED BY: [place] [address] PATHOLOGIST SEISMOGRAPH SUPERVISOR LAURI PATEL M.D. Normal [facility] Comment on above: Performed By: #### C UU, ADDONUAPLUS, UHCG #### [facility] [address] [place] [id number] [facility] Urine bacteria detection by automated methodOrdered By: Nazario Torres on 06-15-2023 Bacteria Auto Ql (U) None seen None Seen [facility] Urine clarity by refractomet ry automatedOrdered By: Nazario Torres on 06-15-2023 Clarity Refractometry automated (U) Clear Clear [facility] Urine glucose measurement by automated test strip (mass/volume)Ordered By: Nazario Torres on 06-15-2023 Glucose Auto test strip (U) [Mass/Vol] Normal mg/dL Normal [facility] Urine hemoglobin detection b y automated test stripOrdered By: Nazario Torres on 06-15-2023 Hemoglobin Auto test strip Ql (U) Negative Negative [facility] Urine leukocyte esterase det ection by automated test stripOrdered By: Nazario Torres on 06-15-2023 Leukocyte esterase Auto test strip Ql (U) 2+ Negative [facility] Urine sediment renal epithel ial cell count by microscopy (number/high power field)Ordered By: Nazario Torres on 06-15-2023 Epithelial cells.renal LM.HPF (Urine sed) [#/Area] 1-2 [HPF] 0-1 [facility] Urobilinogen Auto test strip (U) [Mass/Vol]Ordered By: Nazario Torres on 06-15-2023 Urobilinogen (U) [Mass/Vol] Normal mg/dL Normal [facility] Venous Blood Gason 4 Respiratory Critical Normal [facility] Comment on above: Result Comment: Crit ical Value called on: 06/15/2023 at 13:02 PERFORMED BY: [facility] [address] [place] [address] PATHOLOGIST SEISMOGRAPH SUPERVISOR LAURI PATEL M.D. Performed By: #### V BG #### Point of Care testing , VBG Base Excess -7.8 mmol/L Low -3.0-3.0 [facility] Comment on above: Performed By: #### V BG #### Point of Care testing , VBG Draw Site Venous Normal [facility] Comment on above: Performed By: #### V BG #### Point of Care testing , VBG Frac Inspired O2 21 % Normal [facility] Comment on above: Performed By: #### V BG #### Point of Care testing , VBG O2 Content 5.8 mmol/L Low 6.6-9.7 [facility] Comment on above: Performed By: #### V BG #### Point of Care testing , VBG Oxygen Saturation 84.8 % High 73.0-76.0 [facility] Comment on above: Performed By: #### V BG #### Point of Care testing , VBG PCO2 36.9 mm[Hg] Low 38.0-50.0 [facility] Comment on above: Performed By: #### V BG #### Point of Care testing , VBG PH Venous PH 7.30 Low 7.32-7.43 [facility] Comment on above: Performed By: #### V BG #### Point of Care testing , VBG PO2 53.5 mm[Hg] High 35.0-45.0 [facility] Comment on above: Performed By: #### V BG #### Point of Care testing , Venous Blood GasOrdered By: Nazario Torres on 06-15-2023 CO2 [Moles/Vol] 19.0 mmol/L Low 24.0-29.0 [facility] Comment on above: Performed By: #### V BG #### Point of Care testing , HCO3 (Bld) [Moles/Vol] 17.8 mmol/L Low 23.0-29.0 [facility] Comment on above: Performed By: #### V BG #### Point of Care testing , WBC Auto (Bld) [#/Vol]Ordere d By: Nazario Torres on 06-15-2023 WBC (Bld) [#/Vol] 5.3 10*3/uL 3.8-11.6 [facility] XR chest 2V*on 06-15-2023 XR chest 2V* [place] [address] XRay Report Signed Patient: Tyrone Lim MR#: [id number] : 1985 Acct:[id number] Age/Sex: 38 / F ADM Date: 06/15/23 Loc: ER Room: Type: PRE ER Attending Dr: Copies to: Nazario Torres DO Ordering Provider: Nazario Torres DO Date of Service: 06/15/23 XR/XR chest 2V*: Altered Mental Status XR chest 2V* 06/15/2023 11:47 AM SIGNS AND SYMPTOMS: Altered Mental Status PROTOCOL: Frontal and lateral radiograph of the chest COMPARISON: None FINDINGS: The trachea is midline. The heart and mediastinal structures are within normal limits. The lung parenchyma is clear. The bony thorax is intact. XR/XR chest 2V* IMPRESSION: No acute cardiopulmonary pathology. Impression dictated by: Jason Stone M.D.06/15/2023 12:34 PM Dictation Location: [facility]--13 Transcribed By: BRAULIO 06/15/23 1234 Dictated By: Jason Stone II, MD 06/15/23 1233 Signed By: 06/15/23 1234 Normal [facility] pH Auto test strip (U)Ordere d By: Nazario Torres on 06-15-2023 pH (U) 7.0 [pH] 5.0-9.0 [facility] ACETAMINOPHENon 06-01-2023 Acetaminophen [Mass/Vol] 6.5 ug/mL Low 10.0-30.0 [facility] Comment on above: Result Comment: Refe rence ranges are for therapeutic limits. Performed By: #### C BCA, CMP, 43662-1, 3016-3, 02328-5, 2132-9 #### [facility] ([id number]) [address] [place] [address] CBC AND AUTO DIFFon 06-01-19 ABSOLUTE BASOPHIL 0.0 X10E9/L Normal 0.0-0.2 [facility] Comment on above: Performed By: #### C BCA, 17316-7, 55640-7, 5643-2, CMP, 57263- 9, 3298-7, 2157-6, 4024-6, 48458-0, 3040-3 #### [facility] ([id number]) [address], [place] [address] ABSOLUTE NEUTROPHIL 13.2 X10E9/L High 1.5-6.6 [facility] Comment on above: Performed By: #### C BCA, 83948-5, 08923-6, 5643-2, CMP, 51913- 9, 3298-7, 2157-6, 4024-6, 85574-4, 3040-3 #### [facility] ([id number]) [address] [place] [address] Basophils/100 WBC (Bld) 0.1 % Normal [facility] Comment on above: Performed By: #### C BCA, 79994-6, 97246-6, 5643-2, CMP, 63334- 9, 3298-7, 2157-6, 4024-6, 39697-1, 3040-3 #### [facility] ([id number]) [address] [place] [address] Eosinophils (Bld) [#/Vol] 0.0 10*3/uL Normal 0.0-0.4 [facility] Comment on above: Performed By: #### C BCA, 26946-2, 21342-0, 5643-2, CMP, 69717- 9, 3298-7, 2157-6, 4024-6, 69249-0, 3040-3 #### [facility] ([id number]) [address] [place] [address] Eosinophils/100 WBC (Bld) 0.3 % Normal [facility] Comment on above: Performed By: #### C BCA, 84381-2, 13089-0, 5643-2, CMP, 96491- 9, 3298-7, 2157-6, 4024-6, 60063-7, 3040-3 #### [facility] ([id number]) [address] [place] [address] Erythrocyte distribution width (RBC) [Ratio] 14.4 % Normal 11.5-15.0 [facility] Comment on above: Performed By: #### C BCA, 84783-2, 88025-5, 5643-2, CMP, 66904- 9, 3298-7, 2157-6, 4024-6, 08142-7, 3040-3 #### [facility] ([id number]) [address] [place] [address] Hematocrit (Bld) [Volume fraction] 40.1 % Normal 35-47 [facility] Comment on above: Performed By: #### C BCA, 23627-8, 77567-8, 5643-2, CMP, 46620- 9, 3298-7, 2157-6, 4024-6, 22702-3, 3040-3 #### [facility] ([id number]) [address] [place] [address] Hemoglobin (Bld) [Mass/Vol] 13.4 g/dL Normal 11.7-15.5 [facility] Comment on above: Performed By: #### C BCA, 26782-8, 83175-1, 5643-2, CMP, 38087- 9, 3298-7, 2157-6, 4024-6, 62774-8, 3040-3 #### [facility] ([id number]) [address] [place] [address] Lymphocytes (Bld) [#/Vol] 1.0 10*3/uL Normal 1.0-3.5 [facility] Comment on above: Performed By: #### C BCA, 02580-5, 39095-9, 5643-2, CMP, 23368- 9, 3298-7, 2157-6, 4024-6, 95127-6, 3040-3 #### [facility] ([id number]) [address] [place] [address]46 Lymphocytes/100 WBC (Bld) 6.8 % Normal [facility] Comment on above: Performed By: #### C BCA, 34397-2, 38915-9, 5643-2, CMP, 15852- 9, 3298-7, 2157-6, 4024-6, 03873-3, 3040-3 #### [facility] ([id number]) [address] [place] [address]70 MCH (RBC) [Entitic mass] 30.5 pg Normal 27-34 [facility] Comment on above: Performed By: #### C BCA, 77687-9, 11650-5, 5643-2, CMP, 79650- 9, 3298-7, 2157-6, 4024-6, 90315-2, 3040-3 #### [facility] ([id number]) [address] [place] [address]07 MCHC (RBC) [Mass/Vol] 33.5 g/dL Normal 32-36 [facility] Comment on above: Performed By: #### C BCA, 97872-8, 97913-2, 5643-2, CMP, 28998- 9, 3298-7, 2157-6, 4024-6, 20491-7, 3040-3 #### [facility] ([id number]) [address] [place] [address] 11506 MCV (RBC) [Entitic vol] 91 fL Normal 80-100 [facility] Comment on above: Performed By: #### C BCA, 68104-3, 88797-7, 5643-2, CMP, 94893- 9, 3298-7, 2157-6, 4024-6, 82213-8, 3040-3 #### [facility] ([id number]) [address] [place] [address]201 Monocytes (Bld) [#/Vol] 0.5 10*3/uL Normal 0-0.9 [facility] Comment on above: Performed By: #### C BCA, 03138-6, 05811-3, 5643-2, CMP, 27541- 9, 3298-7, 2157-6, 4024-6, 56318-7, 3040-3 #### [facility] ([id number]) [address] [place] [address] 32990 Monocytes/100 WBC (Bld) 3.7 % Normal [facility] Comment on above: Performed By: #### C BCA, 52284-3, 73475-5, 5643-2, CMP, 79467- 9, 3298-7, 2157-6, 4024-6, 35255-2, 3040-3 #### [facility] ([id number]) [address] [place] [address]2769 Neutrophils/100 WBC (Bld) 89.1 % Normal [facility] Comment on above: Performed By: #### C BCA, 76288-5, 67185-5, 5643-2, CMP, 61973- 9, 3298-7, 2157-6, 4024-6, 84942-5, 3040-3 #### [facility] ([id number]) [address] [place] [address]274 Platelet mean volume (Bld) [Entitic vol] 8.3 fL Normal 7-12 [facility] Comment on above: Performed By: #### C TRAVIS, 39843-4, 38424-4, 5643-2, CMP, 89434- 9, 3298-7, 2157-6, 4024-6, 20417-4, 3040-3 #### [facility] ([id number]) [address] [place] [address] 13426 Platelets (Bld) [#/Vol] 249 10*3/uL Normal 150-450 [facility] Comment on above: Performed By: #### C BCA, 12715-8, 30762-7, 5643-2, CMP, 76802- 9, 3298-7, 2157-6, 4024-6, 47560-4, 3040-3 #### [facility] ([id number]) [address] [place] [address] 79699 RBC COUNT 4.41 X10E12/L Normal 3.80-5.20 [facility] Comment on above: Performed By: #### C BCA, 22538-6, 84789-5, 5643-2, CMP, 10239- 9, 3298-7, 2157-6, 4024-6, 15029-7, 3040-3 #### [facility] ([id number]) [address] [place] [address]8029 WBC (Bld) [#/Vol] 14.8 10*3/uL High 4.0-11.0 [facility] Comment on above: Performed By: #### C BCA, 04829-7, 48676-4, 5643-2, CMP, 86524- 9, 3298-7, 2157-6, 4024-6, 00321-8, 3040-3 #### [facility] ([id number]) [address] [place] [address]244 CK [Catalytic activity/Vol]o n 06-01-2023 CPK 49 U/L Normal 24-170 [facility] Comment on above: Performed By: #### C BCA, CMP, 31892-6, 3016-3, 53503-0, 2131-11 #### [facility] ([id number]) [address] [place] [address] COMPREHENSIVE METABOLIC PANE Jamel 06-01-2023 Albumin [Mass/Vol] 4.3 g/dL Normal 3.2-5.3 [facility] Comment on above: Performed By: #### C BCA, CMP, 68070-9, 3016-3, 13040-5, 2131-11 #### [facility] ([id number]) [address] [place] [address] ALP [Catalytic activity/Vol] 115 U/L Normal 39-130 [facility] Comment on above: Performed By: #### C BCA, CMP, 78099-0, 3016-3, 35580-7, 2131-11 #### [facility] ([id number]) [address], [address] [place] [address] ALT [Catalytic activity/Vol] 37 U/L High 0-31 [facility] Comment on above: Performed By: #### C BCA, CMP, 99692-7, 3016-3, 48497-9, 2131-11 #### [facility] ([id number]) [address], [address] [place] [address] Anion gap [Moles/Vol] 10 mmol/L Normal 5-15 [facility] Comment on above: Performed By: #### C BCA, CMP, 65559-1, 3016-3, 57501-3, 2131-11 #### [facility] ([id number]) [address], [address] [place] [address] AST [Catalytic activity/Vol] 29 U/L Normal 0-41 [facility] Comment on above: Performed By: #### C BCA, CMP, 44210-2, 3016-3, 12687-0, 2131-11 #### [facility] ([id number]) [address], [address] [place] [address] Bilirubin [Mass/Vol] 0.4 mg/dL Normal 0.3-1.2 [facility] Comment on above: Performed By: #### C BCA, CMP, 34517-1, 3016-3, 29627-0, 2131-11 #### [facility] ([id number]) [address], [address] [place] [address] Calcium [Mass/Vol] 8.8 mg/dL Normal 8.5-10.5 [facility] Comment on above: Performed By: #### C BCA, CMP, 68106-7, 3016-3, 97007-8, 2131-11 #### [facility] ([id number]) [address], [address] [place] [address] Chloride [Moles/Vol] 105 mmol/L Normal 98-109 [facility] Comment on above: Performed By: #### C BCA, CMP, 32179-5, 3016-3, 59389-2, 2131-11 #### [facility] ([id number]) [address], [address] [place] [address] CO2 [Moles/Vol] 22 mmol/L Normal 22-32 [facility] Comment on above: Performed By: #### C BCA, CMP, 59479-5, 3016-3, 41543-9, 9 #### [facility] ([id number]) [address], [address] [place] [address] Creatinine [Mass/Vol] 1.23 mg/dL High 0.40-1.00 [facility] Comment on above: Result Comment: METH OD TRACEABLE TO IDMS STANDARD Performed By: #### C BCA, CMP, 69614-3, 3016-3, 70970-6, 2131-11 #### [facility] ([id number]) [address], [address] [place] [address] GFR/1.73 sq M.predicted among non-blacks MDRD (S/P/Bld) [Vol rate/Area] 58 mL/min/{1.73_m2} Low >59 [facility] Comment on above: Result Comment: Reported eGFR is based on the CKD-EPI 2020 equation that does not use a race coefficient. Performed By: #### C BCA, CMP, 35836-5, 3016-3, 37535-5, 2131-11 #### [facility] ([id number]) [address], [address] [place] [address] Glucose [Mass/Vol] 274 mg/dL High 65-99 [facility] Comment on above: Performed By: #### C BCA, CMP, 50716-9, 3016-3, 58181-8, 9 #### [facility] ([id number]) [address], [address] [place] [address] Potassium [Moles/Vol] 4.8 mmol/L Normal 3.5-5.0 [facility] Comment on above: Performed By: #### C BCA, CMP, 79266-8, 3016-3, 44246-6, 9 #### [facility] ([id number]) [address], [address] [place] [address] Protein [Mass/Vol] 8.3 g/dL High 6.0-8.0 [facility] Comment on above: Performed By: #### C BCA, CMP, 53320-9, 3016-3, 26891-1, 9 #### [facility] ([id number]) [address], [address] [place] [address] Sodium [Moles/Vol] 137 mmol/L Normal 134-146 [facility] Comment on above: Performed By: #### C BCA, CMP, 40073-4, 3016-3, 68374-5, 9 #### [facility] ([id number]) [address], [address] [place] [address] Urea nitrogen [Mass/Vol] 14 mg/dL Normal 5-23 [facility] Comment on above: Performed By: #### C BCA, CMP, 13595-2, 3016-3, 63283-8, 9 #### [facility] ([id number]) [address], [address] [place] [address] CT BRAIN WO CONTon CT BRAIN WO CONT CT BRAIN WO CONT CT BRAIN WO CONT 06/01/2023 6:03 AM INDICATION: Altered, transient alteration of awareness, unresponsive COMPARISON: None. TECHNIQUE: Serial axial images were obtained on a multidetector CT through the head without the use of intravenous contrast, as per the standard departmental protocol. Multiplanar 2D MPR reformatted images were then obtained. FINDINGS: Extra-axial spaces: The ventricles, sulci and cisterns are age-appropriate. Brain: No mass-effect, midline shift, or space-occupying lesion. No acute intracranial hemorrhage or abnormal extra-axial fluid collection. No acute territorial infarct. Normal parenchymal cobian-white matter differentiation. Sinuses: Left maxillary sinus and left ethmoid air cells mucosal thickening. Mastoids: The mastoid air cells are clear. Calvarium: No displaced calvarial fracture. Prior occipital well craniotomy and posterior fossa decompression. Orbits: Globes intact. Soft tissues: No hematomas or masses. IMPRESSION: * No acute intracranial process. * Mild paranasal sinus disease. Approved by Resident: Karthik Martinez MD on 06/01/2023 6:05 AM ISrikanth MD have personally reviewed the image(s) and agree with and/or edited the report Finalized by Srikanth Hathaway MD on 06/01/2023 6:15 AM Normal [facility] ETHANOLon 06-01-2023 Ethanol [Mass/Vol] mg/dL Normal 0.00-0.08 [facility] Comment on above: Result Comment: This report is intended for use in clinical monitoring or management of patients. Performed By: #### C GALILEO ROBLES, 39323-3, 3016-3, 98309-1, 2131-11 #### [facility] ([id number]) [address], [address] [place] [address] Glucose Glucometer (BldC) [M ass/Vol]on 06-01-2023 Glucose [Mass/Vol] 258 mg/dL High 65-99 [facility] HCG ( test) IA.rapi d Ql (S)on 06-01-2023 SERUM Negative Normal NEG [facility] Comment on above: Performed By: #### C GALILEO ROBLES, 18034-5, 3016-3, 56435-1, 2131-11 #### [facility] ([id number]) [address], [address] [place] [address] LIPASEon 06-01-2023 Lipase [Catalytic activity/Vol] 36 U/L Normal 17-40 [facility] Comment on above: Performed By: #### C BCA, CMP, 91498-3, 3016-3, 28036-1, 9 #### [facility] ([id number]) [address], [address] [place] [address] Lactate (P rm) [Moles/Vol]o n 06-01-2023 Lactate [Moles/Vol] 1.4 mmol/L Normal 0.4-2.0 [facility] Comment on above: Performed By: #### C BCA, CMP, 26973-0, 3016-3, 91562-9, 9 #### [facility] ([id number]) [address] [place] [address] LACTATE W/REFLEX 3.9 mmol/L High 0.4-2.0 [facility] Comment on above: Performed By: #### C BCA, 42334-1, 25103-1, 5643-2, CMP, 66649- 9, 3298-7, 2157-6, 4024-6, 36195-8, 3040-3 #### [facility] ([id number]) [address] [place] [address], [place] [address] MAGNESIUMon 06-01-2023 Magnesium [Mass/Vol] 2.0 mg/dL Normal 1.8-2.6 [facility] Comment on above: Performed By: #### C BCA, CMP, 26580-4, 3016-3, 12708-5, 2131-11 #### [facility] ([id number]) [address], [address] [place] [address] Salicylates [Mass/Vol]on SALICYLATE <4.0 Normal 2.0-25.0 [facility] Comment on above: Result Comment: Refe rence ranges are for therapeutic limits. Performed By: #### C BCA, CMP, 63855-1, 3016-3, 69411-5, 9 #### [facility] ([id number]) [address], [address] [place] [address] TROPONIN Ion 06-01-2023 Troponin I.cardiac [Mass/Vol] 0.01 ng/mL Normal 0.00-0.04 [facility] Comment on above: Performed By: #### C BCA, CMP, 39727-3, 3016-3, 17210-6, 2132-9 #### [facility] ([id number]) [address] [place] [address] XR CHEST 1 VWon 06-01-2023 XR CHEST 1 VW XR CHEST 1 VW Clinical history: Aspiration pneumonia Views: 1 Comparison: 08/21/2021 Findings/Impression: 1. No acute infiltrate. No volume loss nor consolidation. There is no pleural effusion, pneumothorax, nor volume loss. Heart and mediastinal structures are unremarkable. Pulmonary vasculature stable. 2. No significant change Finalized by Srikanth Hathaway MD on 06/01/2023 6:06 AM Normal [facility] PAP IG, APT HPV RFX 16/18,45 on 04-14-2023 HPV APTIMA Negative Negative [facility] Comment on above: This nucleic acid am plification test detects fourteen high- risk HPV types (16,18,31,33,35,39,45,51,52,56,58,59,66,68) without differentiation. Performed at: [facility] - [facility] [id number] Home Health Care Social Worker: Korin Hernandez MD, Phone: [phone] Performed at: =[facility] - [facility] [id number] Home Health Care Social Worker: Korin Hernandez MD, Phone: [phone] PAP IG (IMAGE GUIDED) Note . [facility] Comment on above: TESTS RESULT FLAG UN ITS REF RANGE LAB Clinician Provided Cytology Information Source.............Cervix;Endocervix No. of containers..01 ThinPrep Vial DIAGNOSIS: 01 NEGATIVE FOR INTRAEPITHELIAL LESION OR MALIGNANCY. Specimen adequacy: 01 Satisfactory for evaluation. Endocervical and/or squamous metaplastic cells (endocervical component) are present. Performed by: 01 Gina Fernandze, Ethylbenzene Converter Helper ([facility]) . 01 Note: Note 01 The Pap smear is a screening test designed to aid in the detection of premalignant and malignant conditions of the uterine cervix. It is not a diagnostic procedure and should not be used as the sole means of detecting cervical cancer. Both false-positive and false-negative reports do occur. Test Methodology: Note 01 This liquid based ThinPrep(R) pap test was screened with the use of an image guided system. HPV Genotype Reflex Note 01 Criteria not met, HPV Genotype not performed. FLAG LEGEND: L-Low Normal,H-High Normal,LL-Alert Low,HH-Alert High <-Panic Low,>-Panic High,A-Abnormal,AA-Critical Abnormal Performed at: [address] [facility] [id number] Korin Hernandez MD, BRUSH-SPATULA CERVIX ENDOCERVIX [facility] CBC AND AUTO DIFFon 04-11-19 24 ABSOLUTE BASOPHIL 0.0 X10E9/L Normal 0.0-0.2 [facility] Comment on above: Performed By: #### C BCA, CMP, 16750-7, 3016-3, 97833-0, 2132-9 #### [facility] ([id number]) [address] [place] [address] ABSOLUTE NEUTROPHIL 3.8 X10E9/L Normal 1.5-6.6 [facility] Comment on above: Performed By: #### C BCA, CMP, 57035-4, 3016-3, 12281-9, 2131-11 #### [facility] ([id number]) [address], [address] [place] [address] Basophils/100 WBC (Bld) 0.3 % Normal [facility] Comment on above: Performed By: #### C BCA, CMP, 15572-9, 3016-3, 52073-3, 2131-11 #### [facility] ([id number]) [address], [address] [place] [address] Eosinophils (Bld) [#/Vol] 0.2 10*3/uL Normal 0.0-0.4 [facility] Comment on above: Performed By: #### C BCA, CMP, 68764-7, 3016-3, 51567-4, 2131-11 #### [facility] ([id number]) [address], [address] [place] [address] Eosinophils/100 WBC (Bld) 2.9 % Normal [facility] Comment on above: Performed By: #### C BCA, CMP, 58081-6, 3016-3, 34043-7, 2131-11 #### [facility] ([id number]) [address], [address] [place] [address] Erythrocyte distribution width (RBC) [Ratio] 14.1 % Normal 11.5-15.0 [facility] Comment on above: Performed By: #### C BCA, CMP, 24276-6, 3016-3, 50707-8, 2131-11 #### [facility] ([id number]) [address], [address] [place] [address] Hematocrit (Bld) [Volume fraction] 38.9 % Normal 35-47 [facility] Comment on above: Performed By: #### C BCA, CMP, 35900-3, 3016-3, 41400-3, 2131-11 #### [facility] ([id number]) [address], [address] [place] [address] Hemoglobin (Bld) [Mass/Vol] 13.3 g/dL Normal 11.7-15.5 [facility] Comment on above: Performed By: #### C BCA, CMP, 83732-2, 3016-3, 81763-4, 2131-11 #### [facility] ([id number]) [address], [address] [place] [address] Lymphocytes (Bld) [#/Vol] 2.7 10*3/uL Normal 1.0-3.5 [facility] Comment on above: Performed By: #### C BCA, CMP, 44769-3, 3016-3, 83528-1, 2131-11 #### [facility] ([id number]) [address], [address] [place] [address] Lymphocytes/100 WBC (Bld) 38.4 % Normal [facility] Comment on above: Performed By: #### C BCA, CMP, 00696-6, 3016-3, 29213-1, 2131-11 #### [facility] ([id number]) [address], [address] [place] [address] MCH (RBC) [Entitic mass] 30.8 pg Normal 27-34 [facility] Comment on above: Performed By: #### C BCA, CMP, 01549-4, 3016-3, 16137-4, 2131-11 #### [facility] ([id number]) [address], [address] [place] [address] MCHC (RBC) [Mass/Vol] 34.2 g/dL Normal 32-36 [facility] Comment on above: Performed By: #### C BCA, CMP, 08526-7, 3016-3, 92898-7, 2131-11 #### [facility] ([id number]) [address], [address] [place] [address] MCV (RBC) [Entitic vol] 90 fL Normal 80-100 [facility] Comment on above: Performed By: #### C BCA, CMP, 78870-8, 3016-3, 22388-0, 2131-11 #### [facility] ([id number]) [address], [address] [place] [address] Monocytes (Bld) [#/Vol] 0.3 10*3/uL Normal 0-0.9 [facility] Comment on above: Performed By: #### C BCA, CMP, 78409-3, 3016-3, 25936-3, 2131-11 #### [facility] ([id number]) [address], [address] [place] [address] Monocytes/100 WBC (Bld) 4.9 % Normal [facility] Comment on above: Performed By: #### C BCA, CMP, 69971-9, 3016-3, 88395-0, 2131-11 #### [facility] ([id number]) [address], [address] [place] [address] Neutrophils/100 WBC (Bld) 53.5 % Normal [facility] Comment on above: Performed By: #### C BCA, CMP, 68076-1, 3016-3, 70034-3, 2131-11 #### [facility] ([id number]) [address], [address] [place] [address] Platelet mean volume (Bld) [Entitic vol] 8.4 fL Normal 7-12 [facility] Comment on above: Performed By: #### C BCA, CMP, 99395-9, 3016-3, 51654-1, 2131-11 #### [facility] ([id number]) [address], [address] [place] [address] Platelets (Bld) [#/Vol] 258 10*3/uL Normal 150-450 [facility] Comment on above: Performed By: #### Sameer ROBLES, CMP, 84857-9, 3016-3, 82447-1, 2131-11 #### [facility] ([id number]) [address], [facility] [address] [place] [address] RBC COUNT 4.32 X10E12/L Normal 3.80-5.20 [facility] Comment on above: Performed By: #### C BCA, CMP, 60876-5, 3016-3, 68848-5, 2131-11 #### [facility] ([id number]) [address], [address] [address] WBC (Bld) [#/Vol] 7.1 10*3/uL Normal 4.0-11.0 [facility] Comment on above: Performed By: #### Sameer ROBLES, CMP, 63571-3, 3016-3, 49784-9, 2131-11 #### [facility] ([id number]) [address], [address] [address] CBC W Auto Differential pane l (Bld)on 04-11-2023 ABSOLUTE BASOPHIL 0.0 [facility] Comment on above: PERFORMED AT [facility] [address] [place] [address],[place] [address] Basophils/100 WBC (Bld) 0.3 % [facility] Eosinophils (Bld) [#/Vol] 0.2 10*3/uL [facility] Eosinophils/100 WBC (Bld) 2.9 % [facility] Erythrocyte distribution width (RBC) [Ratio] 14.1 % 11.5 - 15.0 % [facility] Hematocrit (Bld) [Volume fraction] 38.9 % 35 - 47 % [facility] Hemoglobin (Bld) [Mass/Vol] 13.3 g/dL 11.7 - 15.5 g/dL [facility] Lymphocytes (Bld) [#/Vol] 2.7 10*3/uL [facility] Lymphocytes/100 WBC (Bld) 38.4 % [facility] MCH (RBC) [Entitic mass] 30.8 pg 27 - 34 pg [facility] MCHC (RBC) [Mass/Vol] 34.2 g/dL 32 - 36 g/dL [facility] MCV (RBC) [Entitic vol] 90 fL 80 - 100 fL [facility] Monocytes (Bld) [#/Vol] 0.3 10*3/uL [facility] Monocytes/100 WBC (Bld) 4.9 % [facility] Neutrophils (Bld) [#/Vol] 3.8 10*3/uL [facility] Neutrophils/100 WBC (Bld) 53.5 % [facility] Platelet mean volume (Bld) [Entitic vol] 8.4 fL 7 - 12 fL [facility] Platelets (Bld) [#/Vol] 258 10*3/uL [facility] RBC (Bld) [#/Vol] 4.32 10*6/uL [facility] WBC corrected for nucl RBC Auto (Bld) [#/Vol] 7.1 [facility] COMPREHENSIVE METABOLIC PANE Jamel 04-11-2023 Albumin [Mass/Vol] 4.3 g/dL Normal 3.2-5.3 [facility] Comment on above: Performed By: #### C BCA, CMP, 28800-3, 3016-3, 64254-6, 2131-11 #### [facility] ([id number]) [address], [address] [place] [address] ALP [Catalytic activity/Vol] 70 U/L Normal 39-130 [facility] Comment on above: Performed By: #### C BCA, CMP, 00051-0, 3016-3, 09476-4, 2131-11 #### [facility] ([id number]) [address], [address] [place] [address] ALT [Catalytic activity/Vol] 17 U/L Normal 0-31 [facility] Comment on above: Performed By: #### C BCA, CMP, 70651-9, 3016-3, 98085-8, 2131-11 #### [facility] ([id number]) [address], [address] [place] [address] Anion gap [Moles/Vol] 9 mmol/L Normal 5-15 [facility] Comment on above: Performed By: #### C BCA, CMP, 06952-5, 3016-3, 73112-5, 2131-11 #### [facility] ([id number]) [address], [address] [place] [address] AST [Catalytic activity/Vol] 17 U/L Normal 0-41 [facility] Comment on above: Performed By: #### C BCA, CMP, 17974-3, 3016-3, 19719-1, 2131-11 #### [facility] ([id number]) [address], [address] [place] [address] Bilirubin [Mass/Vol] 0.4 mg/dL Normal 0.3-1.2 [facility] Comment on above: Performed By: #### C BCA, CMP, 86383-9, 3016-3, 55173-6, 2131-11 #### [facility] ([id number]) [address], [address] [place] [address] Calcium [Mass/Vol] 9.2 mg/dL Normal 8.5-10.5 [facility] Comment on above: Performed By: #### C BCA, CMP, 84975-7, 3016-3, 11162-0, 2131-11 #### [facility] ([id number]) [address], [address] [place] [address] Chloride [Moles/Vol] 108 mmol/L Normal 98-109 [facility] Comment on above: Performed By: #### C BCA, CMP, 02296-8, 3016-3, 98546-2, 2131-11 #### [facility] ([id number]) [address], [address] [place] [address] CO2 [Moles/Vol] 26 mmol/L Normal 22-32 [facility] Comment on above: Performed By: #### C BCA, CMP, 53490-3, 3016-3, 67236-9, 2131-11 #### [facility] ([id number]) [address], [address] [place] [address] Creatinine [Mass/Vol] 0.56 mg/dL Normal 0.40-1.00 [facility] Comment on above: Result Comment: METH OD TRACEABLE TO IDMS STANDARD Performed By: #### C BCA, CMP, 08610-5, 3016-3, 12096-3, 2131-11 #### [facility] ([id number]) [address], [address] [place] [address] eGFR (CKD-EPI) NON-RACE DEPENDENT >90 Normal >59 [facility] Comment on above: Result Comment: Reported eGFR is based on the CKD-EPI 2020 equation that does not use a race coefficient. Performed By: #### C BCA, CMP, 03180-2, 3016-3, 75444-7, 2131-11 #### [facility] ([id number]) [address], [address] [place] [address] Glucose [Mass/Vol] 83 mg/dL Normal 65-99 [facility] Comment on above: Performed By: #### C BCA, CMP, 70398-1, 3016-3, 52705-0, 2131-11 #### [facility] ([id number]) [address], [address] [place] [address] Potassium [Moles/Vol] 4.0 mmol/L Normal 3.5-5.0 [facility] Comment on above: Performed By: #### C BCA, CMP, 70856-7, 3016-3, 27110-4, 2131-11 #### [facility] ([id number]) [address], [address] [place] [address] Protein [Mass/Vol] 6.7 g/dL Normal 6.0-8.0 [facility] Comment on above: Performed By: #### C BCA, CMP, 55302-4, 3016-3, 34145-1, 2131-11 #### [facility] ([id number]) [address], [address] [place] [address] Sodium [Moles/Vol] 143 mmol/L Normal 134-146 [facility] Comment on above: Performed By: #### C BCA, CMP, 01880-5, 3016-3, 82925-0, 2131-11 #### [facility] ([id number]) [address], [address] [place] [address] Urea nitrogen [Mass/Vol] 12 mg/dL Normal 5-23 [facility] Comment on above: Performed By: #### C BCA, CMP, 99143-0, 3016-3, 97841-7, 2131-11 #### [facility] ([id number]) [address], [address] [place] [address] HGB A1C (GLYCO-HGB)on 2023 Glucose [Mass/Vol] 105 mg/dL Normal [facility] Comment on above: Performed By: #### C BCA, CMP, 71499-9, 3016-3, 71674-9, 2131-11 #### [facility] ([id number]) [address], [address] [place] [address] HbA1c (Bld) [Mass fraction] 5.3 % Normal 4.4-5.6 [facility] Comment on above: Result Comment: NOTE ADA Guidelines Result HgbA1c Normal : less than 5.7 % Prediabetes : 5.7 % to 6.4 % Diabetes : > 6.4 % Use with caution in patients with abnormal hemoglobin variants as the half-life of red blood cells and in vivo glycation rates are affected. Performed By: #### C TRAVIS, CMP, 12593-0, 3016-3, 30506-1, 9 #### [facility] ([id number]) [address], [address] [place] [address] Lipid 1996 panelon 4 Cholesterol [Mass/Vol] 144 mg/dL Low 150-200 [facility] Comment on above: Performed By: #### Sameer ROBLES, CMP, 54402-8, 3016-3, 48517-3, 2131-11 #### [facility] ([id number]) [address], [address] [place] [address] Cholesterol in HDL [Mass/Vol] 65 mg/dL Normal >39 [facility] Comment on above: Result Comment: HDL <40 mg/dL - High Risk HDL > or = 40mg/dL- Desirable HDL >60 mg/dL - Negative Risk Performed By: #### Sameer ROBLES, CMP, 24279-1, 3016-3, 20296-2, 2131-11 #### [facility] ([id number]) [address], [address] [place] [address] Cholesterol in LDL [Mass/Vol] 54 mg/dL Normal <130 [facility] Comment on above: Result Comment: LDL <100 mg/dL - Desirable LDL >160 mg/dL - High Risk Performed By: #### C TRAVIS, CMP, 08594-4, 3016-3, 31353-3, 2131-11 #### [facility] ([id number]) [address], [address] [place] [address] Cholesterol in VLDL [Mass/Vol] 25 mg/dL Normal 0-30 [facility] Comment on above: Performed By: #### C BCA, CMP, 67992-5, 3016-3, 46537-9, 2131-11 #### [facility] ([id number]) [address], [address] [place] [address] CHOLESTEROL:HDL 2.2 Normal 1.0-5.0 [facility] Comment on above: Performed By: #### C BCA, CMP, 77188-2, 3016-3, 81243-1, 2131-11 #### [facility] ([id number]) [address], [address] [place] [address] Triglyceride [Mass/Vol] 125 mg/dL Normal 27-150 [facility] Comment on above: Performed By: #### C BCA, CMP, 06902-7, 3016-3, 61719-8, 2131-11 #### [facility] ([id number]) [address], [address] [place] [address] TSH Qnon 04-11-2023 TSH 1.54 uIU/mL Normal 0.49-4.67 [facility] Comment on above: Performed By: #### C BCA, CMP, 94414-4, 3016-3, 64510-8, 2131-11 #### [facility] ([id number]) [address], [address] [place] [address] VITAMIN B12on 04-11-2023 Cobalamin (Vitamin B12) [Mass/Vol] 510 pg/mL Normal 180-914 [facility] Comment on above: Performed By: #### C BCA, CMP, 74717-1, 3016-3, 27351-5, 2131-11 #### [facility] ([id number]) [address], [address] [place] [address] Vitamin D+Metabolites [Mass/ Vol]on 04-11-2023 VITAMIN D 25 HYD TOT 42.1 ng/mL Normal 30-100 [facility] Comment on above: Result Comment: Vitamin D status 25 [place] Vitamin D Deficiency <20 ng/mL Insufficiency 20-29 ng/mL Sufficiency 30-100 ng/mL Toxicity >100 ng/mL NOTE: A pediatric reference range has not been established by the wind turbine performance engineer of this kit. The [place] [employer] recommends a Vitamin D level of = or >20ng/mL in infants and children. Performed By: #### C BCA, [facility], 14017-9, 3016-3, 67557-7, 2132-9 #### [facility] ([id number]) [address] [place] [address] [address] [place] [address] XR pre/post mri xrayon 02-23 XR pre/post mri xray [place] [address] MRI Report Signed Patient: Tyrone Lim MR#: [id number] : 1985 Acct:[id number] Age/Sex: 38 / F ADM Date: 02/23/23 Loc: Room: Type: [facility] Attending Dr: Johana HUTCHINSON Copies to: EVANGELINA Israel Ordering Provider: EVANGELINA Israel Date of Service: 02/23/23 MR/MR lumbar spine wo/w con: Z98.1 ([id number]) XR/XR pre/post mri xray: Z98.1 MR lumbar spine wo/w con, XR pre/post mri xray 02/23/2023 1:33 PM SIGNS AND SYMPTOMS: Low back pain, recent lumbar surgery PROTOCOL: Multiplanar multisequence MR images of the lumbar spine were obtained with and without IV contrast. Frontal and lateral radiograph of the lumbar spine were obtained. CONTRAST: 17 ml of intravenous ProHance COMPARISON: None. FINDINGS: Radiographs of the lumbar spine: There is evidence of unilateral right posterior transpedicular fusion with intervertebral fusion body at L5-S1. No hardware complication or malalignment. There is posterior decompression at L5. The vertebral body heights and intervertebral discs are preserved. The visualized sacral iliac joints are preserved. MRI lumbar spine: The bones of the lumbar spine are in anatomic alignment. There is preservation of vertebral body heights postoperative changes are noted at L5-S1 with intervertebral fusion. The marrow signal is within normal limits. The conus terminates at the inferior endplate of the L1 vertebral body level. No epidural or paraspinous fluid collection is appreciated. At T12-L1: There is a normal disc, central canal, and neural foramen. At L1-L2: There is a normal disc, central canal, and neural foramen. At L2-L3: There is a normal disc, central canal, and neural foramen. At L3-L4: There is a normal disc, central canal, and neural foramen. At L4-L5: There is a mild broad-based disc/facet hypertrophy. There is a slightly more prominent right foraminal component. There is mild bilateral neural foraminal narrowing without spinal canal stenosis. At L5-S1: There is intervertebral fusion with facet hypertrophy. There is mild to moderate left neural foraminal narrowing. The right neural foramen is partially obscured by hardware artifact. No spinal canal narrowing. There is enhancement surrounding the traversing right S1 nerve roots suggesting postoperative granulation tissue. MR/MR lumbar spine wo/w con IMPRESSION: At L5-S1: There is intervertebral fusion with facet hypertrophy. There is mild to moderate left neural foraminal narrowing. The right neural foramen is partially obscured by hardware artifact. No spinal canal narrowing. There is enhancement surrounding the traversing right S1 nerve roots suggesting postoperative granulation tissue. At L4-L5: There is a mild broad-based disc/facet hypertrophy. There is a slightly more prominent right foraminal component. There is mild bilateral neural foraminal narrowing without spinal canal stenosis. No hardware complication or malalignment. Impression dictated by: Jason Stone M.D.02/23/2023 5:57 PM Dictation Location: [place] [address] Transcribed By: [facility] 02/23/231756 Dictated By: Jason Stone II, MD 02/23/23 1650 Signed By: 02/23/23 594 Normal [facility] Hep C RT-PCR, Qnt (Non-Graph )on 12-13-2022 Hepatitis C Quantitation Not detected Normal . [facility] Comment on above: Order Comment: Reaso n for Exam Hepatitis C Performed By: #### H CV RNAQNT ####[facility] , Test Information: Normal . [facility] Comment on above: Order Comment: Reaso n for Exam Hepatitis C Result Comment: The quantitative range of this assay is 15 IU/mL to 100 million IU/mL. Performed at: [address] [id number] [facility] Social Worker: Augusto Lowry MD, Phone: [phone] PERFORMED BY: [address] [place] [address] PATHOLOGIST SEISMOGRAPH SUPERVISOR LAURI PATEL M.D. Performed By: #### H CV RNAQNT ####[facility] , Hepatitis C virus RNA [log u nits/volume] (viral load) in Serum or Plasma by BETITO withOrdered By: Ladarius Pitts on 12-13-2022 HCV RNA BETITO+probe [Log units/Vol] Not detected . [facility] No Panel InformationOrdered By: Ladaruis Pitts on 12-13-2022 Hepatitis C RNA (PCR) Interpret See comment . [facility] Comment on above: The quantitative ran ge of this assay is 15 IU/mL to 100million IU/mL.Performed at: [address] [id number] Director: Augusto Lowry MD, Phone: [phone] Aerobic Cultureon 09-22-2022 Aerobic Culture ORGANISM: Methicilli n Resis Staph Aureus (O:MRSA) Quantity of Growth Heavy Growth No Anaerobes Isolated 3 Days Gram Stain Result 2+ Gram Positive Cocci 1+ White Blood Cells Aerobic CLAYTON Charge (PCMIC38) - SUSCEPTIBILITY ORGANISM: O:MRSA ANTIBIOTIC INTERPRETATION CLAYTON Azithromycin R >4 Ceftaroline S <0.5 Ciprofloxacin R >2 Clindamycin R >4 Daptomycin S 1 Linezolid S 2 Oxacillin R >2 Penicillin R >2 Tetracycline R >8 Trimethoprim/Sulfamethox azole S <0.5 Vancomycin S 1 S = SUSCEPTIBLE I = INTERMEDIATE R = RESISTANT BLANK = DATA NOT AVAILABLE, OR DRUG NOT ADVISABLE OR TESTED R* = RESISTANCE DUE TO EXTENDED SPECTRUM BETA-LACTAMASES ESBL = EXTENDED SPECTRUM BETA-LACTAMASE TFG = THYMIDINE-DEPENDENT STRAIN KATIA = BETA-LACTAMASE POSITIVE IB = INDUCIBLE BETA-LACTAMASE. APPEARS IN PLACE OF 'S' WITH SPECIES KNOWN TO POSSESS INDUCIBLE BETA-LACTAMASES. POTENTIALLY THEY MAY BECOME RESISTANT TO ALL B-LACTAM DRUGS. PERFORMED BY: [place] [address] PATHOLOGIST SEISMOGRAPH SUPERVISOR LAURI PATEL M.D. Normal [facility] Comment on above: Performed By: #### A GRETTA, GS #### [place] [id number] [facility] Anaerobic cultureOrdered By: Berenice Haile on 09-22-2022 Bacteria identified Anaer cx Nom (Unsp spec) No Anaerobes Isolated 3 Days [facility] Bacteria identified Aer cx N om (Unsp spec)Ordered By: Berenice Haile on 09-22-2022 Aerobic Culture Methicillin Resis St aph Aureus [facility] Gram Stainon 09-22-2022 Microscopic observation Gram stain Nom (Unsp spec) Gram Stain Result 2+ Gram Positive Cocci 1+ White Blood Cells PERFORMED BY: [place] [address] PATHOLOGIST SEISMOGRAPH SUPERVISOR LAURI PATEL M.D. Normal [facility] Comment on above: Performed By: #### A ERC, GS #### [place] [id number] [facility] Gram stain for investigation of transfusion reactionOrdered By: Berenice Haile on 09-22-2022 Microscopic observation Gram stain Nom (Unsp spec) [facility] PAP ACOG PANEL 2: 30 to 65on 06-02-2022 . . Normal [facility] Comment on above: Result Comment: Perf ormed at: WB Performed By: #### V B12LC #### [facility] [address] [place] [address] [address] Drew Castle Age Gdln ACOG Testing 30-65 Normal [facility] Comment on above: Performed By: #### V B12LC #### [facility] [address] [place] [address] Dr. Drew Castle DIAGNOSIS: Comment Abnormal [facility] Comment on above: Result Comment: EPIT HELIAL CELL ABNORMALITY. LOW GRADE SQUAMOUS INTRAEPITHELIAL LESION (LSIL). FUNGAL ORGANISMS MORPHOLOGICALLY CONSISTENT WITH CANDICE SPECIES ARE PRESENT. Performed at: WB Performed By: #### V B12LC #### [facility] [address] [place] [address] Dr. Drew Caslte Electronically signed by: Comment Normal [facility] Comment on above: Result Comment: Liz Bryant MD, Pathologist Performed at: WB Performed By: #### V B12LC #### [facility] [address] [place] [address] Dr. Drew Castle HPV Aptima Negative Normal Negative [facility] Comment on above: Result Comment: This nucleic acid amplification test detects fourteen high-risk HPV types (16,18,31,33,35,39,45,51,52,56,58,59,66,68) without differentiation. Performed at: =G Performed By: #### V B12LC #### [facility] [address] [place] [address] Dr. Drew Castle HPV Genotype Reflex Comment Normal [facility] Comment on above: Result Comment: Crit eria not met, HPV Genotype not performed. Performed at: WB Performed By: #### V B12LC #### [facility] [address] [place] [address] Dr. Drew Castle Methodology: Comment Normal [facility] Comment on above: Result Comment: This liquid based ThinPrep(R) pap test was screened with the use of an image guided system. Performed at: WB Performed By: #### V B12LC #### [facility] [address] [place] [address] Dr. Drew Castle Note: Comment Normal [facility] Comment on above: Result Comment: The Pap smear is a screening test designed to aid in the detection of premalignant and malignant conditions of the uterine cervix. It is not a diagnostic procedure and should not be used as the sole means of detecting cervical cancer. Both false-positive and false-negative reports do occur. . Performed at: WB Performed By: #### V B12LC #### [facility] [address] [place] [address] Dr. Drew Castle Pathologist Provided ICD10 Comment Normal [facility] Comment on above: Result Comment: R87. 612, R87.5 Performed at: WB Performed By: #### V B12LC #### [facility] [address] [place] [address] Dr. Drew Castle Performed by: Comment Normal [facility] Comment on above: Result Comment: Carley Irvin, Ethylbenzene Converter Helper (ASCP) Performed at: WB Performed By: #### V B12LC #### [facility] [address] [place] [address] Dr. Drew Castle Specimen adequacy: Comment Normal [facility] Comment on above: Result Comment: Sati sfactory for evaluation. Endocervical and/or squamous metaplastic cells (endocervical component) are present. Performed at: WB Performed By: #### V B12LC #### [facility] [address] [place] [address] Dr. Drew Castle VAGINITIS/VAGINOSIS DNA PROB Garry 05-26-2022 Candice species Positive Abnormal Negative [facility] Comment on above: Performed By: #### V B12LC #### [facility] [address] [place] [address] Dr. Drew Castle Gardnerella vaginalis Positive Abnormal Negative [facility] Comment on above: Performed By: #### V B12LC #### [facility] [address] [place] [address] Dr. Drew Castle Trichomonas vaginalis Negative Normal Negative [facility] Comment on above: Performed By: #### V B12LC #### [facility] [address] [place] [address] Dr. Drew Castle CULTURE WOUNDon 01-21-2022 CULTURE WOUND Culture Observations : No growth of aerobes at 48 hours. Culture Observations: No growth of anaerobes at 72 hours. Normal [facility] Comment on above: Performed By: #### W OUNDCX #### [facility] [address] [place] [address] Dr. Drew Castle VITAMIN B12on 08-08-2021 Cobalamin (Vitamin B12) [Mass/Vol] 1189 pg/mL Normal 232-1245 [facility] Comment on above: Performed By: #### V B12LC #### [facility] [address] [place] [address] Dr. Drew Castle CBC AUTO DIFFon 08-06-2021 BASO # 0.0 103/ul Normal 0.0-0.1 [facility] Comment on above: Performed By: #### V B12LC #### [facility] [address] [place] [address] Dr. Drew Castle Basophils/100 WBC (Bld) 0.4 % Normal 0.2-2.0 [facility] Comment on above: Performed By: #### V B12LC #### [facility] [address] [place] [address] Dr. Drew Castle EO # 0.3 103/ul Normal 0.0-0.7 [facility] Comment on above: Performed By: #### V B12LC #### [facility] [address] [place] [address] Dr. Drew Castle Eosinophils/100 WBC (Bld) 6.7 % Normal 0.9-7.0 [facility] Comment on above: Performed By: #### V B12LC #### [facility] [address] [place] [address] Dr. Drew Castle Erythrocyte distribution width (RBC) [Ratio] 13.8 % Normal 11.0-15.0 [facility] Comment on above: Performed By: #### V B12LC #### [facility] [address] [place] [address] Dr. Drew Castle Hematocrit (Bld) [Volume fraction] 37.3 % Normal 36.0-48.0 [facility] Comment on above: Performed By: #### V B12LC #### [facility] [address] [address] [address] Drew Castle Hemoglobin (Bld) [Mass/Vol] 12.0 g/dL Normal 12.0-16.0 [facility] Comment on above: Performed By: #### V B12LC #### [facility] [address] [address] [address] Drew Castle IG # 0.01 10e3/ul Normal 0.00-0.03 [facility] Comment on above: Performed By: #### V B12LC #### [facility] [address] [place] [address] Dr. Drew Castle IG % 0.2 % Normal 0.0-0.5 [facility] Comment on above: Performed By: #### V B12LC #### [facility] [address] [place] [address] Dr. Drew Castle LYMPH # 2.7 103/ul Normal 1.2-3.8 [facility] Comment on above: Performed By: #### V B12LC #### [facility] [address] [place] [address] Dr. Drew Castle Lymphocytes/100 WBC (Bld) 59.4 % Normal 20.5-60.0 [facility] Comment on above: Performed By: #### V B12LC #### [facility] [address] [place] [address] Dr. Drew Castle MANUAL DIFF REQ NO Normal [facility] Comment on above: Performed By: #### V B12LC #### [facility] [address] [address] [address] Drew Castle MCH (RBC) [Entitic mass] 30.6 pg Normal 26.7-34.0 [facility] Comment on above: Performed By: #### V B12LC #### [facility] [address] [place] [address] Dr. Drew Castle MCHC (RBC) [Mass/Vol] 32.2 g/dL Normal 29.9-35.2 [facility] Comment on above: Performed By: #### V B12LC #### [facility] [address] [address] [address] Drew Castle MCV (RBC) [Entitic vol] 95.2 fL Normal 81.0-99.0 [facility] Comment on above: Performed By: #### V B12LC #### [facility] [address] [place] [address] Dr. Drew Castle MONO # 0.4 103/ul Normal 0.3-0.8 [facility] Comment on above: Performed By: #### V B12LC #### [facility] [address] [place] [address] Dr. Drew Castle Monocytes/100 WBC (Bld) 8.5 % Normal 1.7-12.0 [facility] Comment on above: Performed By: #### V B12LC #### [facility] [address] [place] [address] Dr. Drew Castle NEUT # 1.1 103/ul Critically low 1.4-6.5 The [facility] Comment on above: Performed By: #### V B12LC #### [facility] [address] [place] [address] Dr. Drew Castle Neutrophils/100 WBC (Bld) 24.8 % Critically low 43.0-75.0 [facility] Comment on above: Performed By: #### V B12LC #### [facility] [address] [place] [address] Dr. Drew Castle Platelet mean volume (Bld) [Entitic vol] 11.9 fL Normal 9.5-13.5 [facility] Comment on above: Performed By: #### V B12LC #### [facility] [address] [place] [address] Dr. Drew Castle PLT 212 103/ul Normal 150-450 [facility] Comment on above: Performed By: #### V B12LC #### [facility] [address] [place] [address] Dr. Drew Castle RBC 3.92 106/ul Critically low 4.20-5.40 [facility] Comment on above: Performed By: #### V B12LC #### [facility] [address] [place] [address] Dr. Drew Castle WBC 4.6 103/ul Normal 4.0-11.0 [facility] Comment on above: Performed By: #### V B12LC #### [facility] [address] [place] [address] Dr. Drew Castle FERRITINon 08-06-2021 Ferritin [Mass/Vol] 24.0 ng/mL Normal 6.2-137.0 [facility] Comment on above: Performed By: #### I ASHA, VITAD, FERR, FT4 #### [facility] [address] [place] [address] Dr. Drew Castle FREE T4on 08-06-2021 Free T4 [Mass/Vol] 0.79 ng/dL Normal 0.76-1.46 The [facility] Comment on above: Performed By: #### I ASHA VITAD, FERR, FT4 #### [facility] [address] [place] [address] Dr. Drew Castle GLYCOHEMOGLOBIN A1Con 2021 ADA RECOMMENDATION SEE BELOW Normal [facility] Comment on above: Result Comment: ADA RECOMMENDED LIMIT 4.0 - 6.0 ADA THERAPEUTIC TARGET < 7.0 ACTION SUGGESTED > 7.0 Performed By: #### A 1C #### [facility] [address] [place] [address] Dr. Drew Castle Glucose [Mass/Vol] 111 mg/dL Normal [facility] Comment on above: Performed By: #### A 1C #### [facility] [address] [place] [address] Dr. Drew Castle HbA1c (Bld) [Mass fraction] 5.5 % Normal 4.5-6.2 [facility] Comment on above: Performed By: #### A 1C #### [facility] [address] [place] [address] Dr. Drew Castle IRONon 08-06-2021 Iron [Mass/Vol] 76.0 ug/dL Normal 50.0-170.0 [facility] Comment on above: Performed By: #### I ASHA, VITAD, FERR, FT4 #### [facility] [address] [address] [address] Drew Castle LIPID PROFILEon 08-06-2021 CHOL-HDL RATIO NORM SEE BELOW Normal [facility] Comment on above: Result Comment: 3.3 - 4.4 LOW RISK 4.4 - 7.1 AVERAGE RISK 7.1 - 11.0 MODERATE RISK >11.0 HIGH RISK Performed By: #### C MP, LIPID, TSH #### [facility] [address] [address] [address] Drew Castle Cholesterol [Mass/Vol] 150 mg/dL Normal <=200 [facility] Comment on above: Performed By: #### C MP, LIPID, TSH #### [facility] [address] [address] [address] Drew Castle Cholesterol in HDL [Mass/Vol] 59 mg/dL Normal 40-60 [facility] Comment on above: Performed By: #### C MP, LIPID, TSH #### [facility] [address] [address] [address] Drew Castle Cholesterol in LDL [Mass/Vol] 63.4 mg/dL Normal [facility] Comment on above: Performed By: #### C MP, LIPID, TSH #### [facility] [address] [address] [address] rDew Castle Cholesterol.total/Cho lesterol in HDL [Mass ratio] 2.5 {ratio} Normal [facility] Comment on above: Performed By: #### C MP, LIPID, TSH #### [facility] [address] [address] [address] Drew Castle HDL NORMAL > or = 60 mg/dl - LO W CARDIOVASCULAR RISK <40 mg/dl - HIGH CARDIOVASCULAR RISK Normal [facility] Comment on above: Performed By: #### C MP, LIPID, TSH #### [facility] [address] [address] [address] Drew Castle LDL CALC NORMAL SEE BELOW Normal [facility] Comment on above: Result Comment: <100 mg/dl OPTIMAL 100 - 129 mg/dl NEAR OR ABOVE OPTIMAL 130 - 159 mg/dl BORDERLINE HIGH 160 - 189 mg/dl HIGH >190 mg/dl VERY HIGH Performed By: #### C MP, LIPID, TSH #### [facility] [address] [address] [address] Drew Castle Triglyceride [Mass/Vol] 138 mg/dL Normal <=150 [facility] Comment on above: Performed By: #### C MP, LIPID, TSH #### [facility] [address] [address] [address] Drew Castle VLDL CALC 27.6 mg/dL Normal [facility] Comment on above: Performed By: #### C MP, LIPID, TSH #### [facility] [address] [address] [address] Drew Castle PROF 14(COMP METB)on 022 Albumin [Mass/Vol] 3.5 g/dL Normal 3.4-5.0 [facility] Comment on above: Performed By: #### C MP, LIPID, TSH #### [facility] [address] [place] [address] Dr. Drew Castle Albumin/Globulin [Mass ratio] 1.1 {ratio} Normal [facility] Comment on above: Performed By: #### C MP, LIPID, TSH #### [facility] [address] [place] [address] Dr. Drew Castle ALP [Catalytic activity/Vol] 61 U/L Normal 46-116 [facility] Comment on above: Performed By: #### C MP, LIPID, TSH #### [facility] [address] [address] [address] Drew Castle ALT [Catalytic activity/Vol] 29 U/L Normal 14-59 [facility] Comment on above: Performed By: #### C MP, LIPID, TSH #### [facility] [address] [address] [address] Drew Castle Anion gap [Moles/Vol] 13.9 mmol/L Normal [facility] Comment on above: Performed By: #### C MP, LIPID, TSH #### [facility] [address] [address] [address] Drew Castle AST [Catalytic activity/Vol] 22 U/L Normal 15-37 [facility] Comment on above: Performed By: #### C MP, LIPID, TSH #### [facility] [address] [address] [address] Drew Castle Bilirubin [Mass/Vol] 0.4 mg/dL Normal 0.2-1.0 [facility] Comment on above: Performed By: #### C MP, LIPID, TSH #### [facility] [address] [place] [address] Dr. Drew Castle Calcium [Mass/Vol] 8.7 mg/dL Normal 8.5-10.1 [facility] Comment on above: Performed By: #### C MP, LIPID, TSH #### [facility] [address] [place] [address] Dr. Drew Castle Chloride [Moles/Vol] 107 mmol/L Normal 98-107 [facility] Comment on above: Performed By: #### C MP, LIPID, TSH #### [facility] [address] [place] [address] Dr. Drew Castle CO2 [Moles/Vol] 24.9 mmol/L Normal 21.0-32.0 [facility] Comment on above: Performed By: #### C MP, LIPID, TSH #### [facility] [address] [place] [address] Dr. Drew Castle Creatinine [Mass/Vol] 0.76 mg/dL Normal 0.55-1.02 [facility] Comment on above: Performed By: #### C MP, LIPID, TSH #### [facility] [address] [place] [address] Dr. Drew Castle EGFR-AF ALBANIAN >60 Normal >=60 [facility] Comment on above: Performed By: #### C MP, LIPID, TSH #### [facility] [address] [place] [address] Dr. Drew Castle EGFR-NON AF ALBANIAN >60 Normal >=60 [facility] Comment on above: Performed By: #### C MP, LIPID, TSH #### [facility] [address] [place] [address] Dr. Drew Castle Globulin (S) [Mass/Vol] 3.1 g/dL Normal [facility] Comment on above: Performed By: #### C MP, LIPID, TSH #### [facility] [address] [place] [address] Dr. Drew Castle Glucose [Mass/Vol] 95 mg/dL Normal 74-106 [facility] Comment on above: Performed By: #### C MP, LIPID, TSH #### [facility] [address] [place] [address] Dr. Drew Castle Potassium [Moles/Vol] 3.8 mmol/L Normal 3.5-5.1 [facility] Comment on above: Performed By: #### C MP, LIPID, TSH #### [facility] [address] [place] [address] Dr. Drew Castle Protein [Mass/Vol] 6.6 g/dL Normal 6.4-8.2 [facility] Comment on above: Performed By: #### C MP, LIPID, TSH #### [facility] [address] [place] [address] Dr. Drew Castle Sodium [Moles/Vol] 142 mmol/L Normal 136-145 [facility] Comment on above: Performed By: #### C MP, LIPID, TSH #### [facility] [address] [place] [address] Dr. Drew Castle Urea nitrogen [Mass/Vol] 16.0 mg/dL Normal 7.0-18.0 [facility] Comment on above: Performed By: #### C MP, LIPID, TSH #### [facility] [address] [place] [address] Dr. Drew Castle Urea nitrogen/Creatinine [Mass ratio] 21.1 mg/mg Normal [facility] Comment on above: Performed By: #### C MP, LIPID, TSH #### [facility] [address] [place] [address] Dr. Drew Castle TSHon 08-06-2021 TSH 2.421 uIU/mL Normal 0.358-3.740 [facility] Comment on above: Performed By: #### C MP, LIPID, TSH #### [facility] [address] [place] [address] Dr. Drew Castle TSH RANGE SEE BELOW Normal [facility] Comment on above: Result Comment: <0.3 4 UIU/ml HYPERTHYROID 0.34-5.60 UIU/ml EUTHYROID >5.60 UIU/ml HYPOTHYROID Performed By: #### C MP, LIPID, TSH #### [facility] [address] [place] [address] Dr. Drew Caslte UA RANDOM W/MICROSCOPICon BACTERIA NONE SEEN Normal NONE SEEN [facility] Comment on above: Performed By: #### V B12LC #### [facility] [address] [place] [address] Dr. Drew Castle Bilirubin Ql (U) SMALL Abnormal NEGATIVE [facility] Comment on above: Performed By: #### V B12LC #### [facility] [address] [place] [address] Dr. Drew Castle CAST NONE SEEN Normal NONE SEEN [facility] Comment on above: Performed By: #### V B12LC #### [facility] [address] [place] [address] Dr. Drew Castle Clarity (U) CLOUDY Abnormal CLEAR [facility] Comment on above: Performed By: #### V B12LC #### [facility] [address] [place] [address] Dr. Drew Castle Color (U) DK. YELLOW Normal YELLOW [facility] Comment on above: Performed By: #### V B12LC #### [facility] [address] [place] [address] Dr. Drew Castle Crystals LM Nom (Urine sed) NONE SEEN Normal NONE SEEN [facility] Comment on above: Performed By: #### V B12LC #### [facility] [address] [place] [address] Dr. Drew Castle Epithelial cells LM Ql (Urine sed) RARE Normal NONE SEEN /RARE [facility] Comment on above: Performed By: #### V B12LC #### [facility] [address] [place] [address] Dr. Drew Castle Glucose Ql (U) Negative Normal NEGATIVE [facility] Comment on above: Performed By: #### V B12LC #### [facility] [address] [place] [address] Dr. Drew Castle Hemoglobin Ql (U) Negative Normal NEGATIVE The [facility] Comment on above: Performed By: #### V B12LC #### [facility] [address] [place] [address] Dr. Drew Castle Ketones Ql (U) Negative Normal NEGATIVE [facility] Comment on above: Performed By: #### V B12LC #### [facility] [address] [place] [address] Dr. Drew Castle LEUKOCYTES Negative Normal NEGATIVE [facility] Comment on above: Performed By: #### V B12LC #### [facility] [address] [place] [address] Dr. Drew Castle MUCOUS NONE SEEN Normal NONE SEEN [facility] Comment on above: Performed By: #### V B12LC #### [facility] [address] [place] [address] Dr. Drew Castle Nitrite Ql (U) Negative Normal NEGATIVE [facility] Comment on above: Performed By: #### V B12LC #### [facility] [address] [place] [address] Dr. Drew Castle pH (U) 6.5 [pH] Normal 5-9 [facility] Comment on above: Performed By: #### V B12LC #### [facility] [address] [place] [address] Dr. Drew Castle RBC NONE SEEN Abnormal 0-2 [facility] Comment on above: Performed By: #### V B12LC #### [facility] [address] [place] [address] Dr. Drew Castle SPEC GRAVITY 1.025 Normal 1.005-<=1.02 5 [facility] Comment on above: Performed By: #### V B12LC #### [facility] [address] [place] [address] Dr. Drew Castle UA PROTEIN TRACE Normal NEGATIVE/ TRACE [facility] Comment on above: Performed By: #### V B12LC #### [facility] [address] [place] [address] Dr. Drew Castle Urobilinogen Qn (U) 1.0 {Jeff'U}/dL Normal 0.2 - 1. 0 [facility] Comment on above: Performed By: #### V B12LC #### [facility] [address] [place] [address] Dr. Drew Castle WBC NONE SEEN Normal NONE SEEN [facility] Comment on above: Performed By: #### V B12LC #### [facility] [address] [place] [address] Dr. Drew Castle VITAMIN D 25 OHon 08-06-2021 VIT D 25-OH 45.7 ng/mL Normal [facility] Comment on above: Performed By: #### I ASHA VITJAYA FERR, FT4 #### [facility] [address] [place] [address] Dr. Drew Castle VIT D RANGES SEE BELOW Normal [facility] Comment on above: Result Comment: <20 ng/mL Vit D deficient 20 - <30 ng/mL Vit D insufficient 30 - 100 ng/mL Vit D sufficient >100 ng/mL Potential Toxicity Performed By: #### I ASHA VITAD, FERR, FT4 #### [facility] [address] [place] [address] Dr. Drew Castle Complete Blood Count Auto Di ffon 03-03-2021 Basophils (Bld) [#/Vol] 0.0 10*3/uL 0.0-0.2 [employer] Other Basophils/100 WBC (Bld) 0.2 % . [employer] Other Eosinophils (Bld) [#/Vol] 0.2 10*3/uL 0.0-0.45 [employer] Other Eosinophils/100 WBC (Bld) 2.4 % . [employer] Other Erythrocyte distribution width (RBC) [Ratio] 14.0 % 11.9-15.3 [employer] Other Hematocrit (Bld) [Volume fraction] 39.2 % 34.0-46.4 [employer] Other Hemoglobin (Bld) [Mass/Vol] 13.6 g/dL 11.8-15.4 [employer] Other Lymphocytes (Bld) [#/Vol] 2.3 10*3/uL 1.00-4.8 [employer] Other Lymphocytes/100 WBC (Bld) 31.0 % . [employer] Other MCH (RBC) [Entitic mass] 31.3 pg 24.7-34.3 [employer] Other MCH (RBC) [Entitic mass] 34.6 pg 32.0-35.0 [employer] Other MCV (RBC) [Entitic vol] 90.4 fL 80-100 [employer] Other Monocytes (Bld) [#/Vol] 0.3 10*3/uL 0.0-0.8 [employer] Other Monocytes/100 WBC (Bld) 4.7 % . [employer] Other Neutrophils (Bld) [#/Vol] 4.5 10*3/uL 1.8-7.7 [employer] Other Neutrophils/100 WBC (Bld) 61.7 % . [employer] Other Platelet mean volume (Bld) [Entitic vol] 8.3 fL 6.3-10.7 [employer] Other Platelets (Bld) [#/Vol] 232 10*3/uL 150-450 [employer] Other RBC (Bld) [#/Vol] 4.34 10*6/uL 3.60-5.00 [employer] Other WBC (Bld) [#/Vol] 7.3 10*3/uL 3.8-11.6 [employer] Other Complete Blood Count Auto Diff 7.3 4.5-11.0 [employer] Other Complete Blood Count Auto Diff 0.2 0-0.5 [employer] Other Prothrombin Time INRon 03-03 INR Coag (PPP) [Relative time] 1.2 {INR} [employer] Other PT Coag (PPP) [Time] 13.3 s 9.0-12.9 [employer] Other Acetaminophen levelOrdered B y: Sai Mary on 12-27-2020 Acetaminophen Level <5 Low 10 - 30 ug/mL [employer] Work Phone: Interpretation and review of laboratory results Abnormal [employer] Work Phone: [employer] Work Phone: Blood Gas, VenousOrdered By: Sai Hernandez on 12-27-2020 Manuel Test NOT REPORTED [employer] Work Phone: Carboxyhemoglobin NOT REPORTED 0.0 - 5.0 % [employer] Work Phone: Comment on above: FIO2 NOT REPORTED [employer] Work Phone: HCO3 (Bld) [Moles/Vol] 27.8 mmol/L 24.0 - 30.0 mmol/L [employer] Work Phone: Interpretation and review of laboratory results Abnormal [employer] Work Phone: Methemoglobin NOT REPORTED 0.0 - 1.9 % [employer] [facility] Work Phone: Mode NOT REPORTED [employer] Work Phone: Negative Base Excess, Rm NOT REPORTED 0.0 - 2.0 mmol/L [employer] Work Phone: NOTIFICATION NOT REPORTED [employer] [facility] Work Phone: NOTIFICATION TIME NOT REPORTED [facility] Work Phone: O2 Device/Flow/% NOT REPORTED [facility] Work Phone: Oxygen saturation in Blood 96.6 % High 60.0 - 85.0 % [facility] Work Phone: Oxyhemoglobin NOT REPORTED 95.0 - 98.0 % [facility] Work Phone: pCO2, Rm 50.8 [facility] Work Phone: pCO2, Rm, Temp Adj NOT REPORTED [facility] Work Phone: Peep/Cpap NOT REPORTED [facility] Work Phone: pH, Rm 7.356 [facility] Work Phone: pH, Rm, Temp Adj NOT REPORTED [facility] Work Phone: pO2, Rm 91.1 High [facility] Work Phone: pO2, Rm, Temp Adj NOT REPORTED [facility] Work Phone: Positive Base Excess, Rm 1.4 mmol/L 0.0 - 2.0 mmol/L [facility] Work Phone: PSV NOT REPORTED [facility] Work Phone: Pt Temp 37.0 [facility] Work Phone: Pt. Position NOT REPORTED [facility] Work Phone: Respiratory Rate NOT REPORTED [facility] Work Phone: Sample Site NOT REPORTED [facility] Work Phone: Set Rate NOT REPORTED [facility] Work Phone: Text for Respiratory NOT REPORTED [facility] Work Phone: Total Hb NOT REPORTED 12.0 - 16.0 g/dl [facility] Work Phone: Total Rate NOT REPORTED [facility] Work Phone: VT NOT REPORTED [employer] Work Phone: [employer] Work Phone: CBC Auto DifferentialOrdered By: Sai Hernandez on 12-27-2020 [employer] # 0.26 [employer] [facility] Work Phone: Absolute Immature Granulocyte <0.03 [employer] Work Phone: Absolute Lymph # 1.88 [employer] [facility] Work Phone: [employer] [place] # 0.36 [employer] [facility] Work Phone: Basophils (Bld) [#/Vol] 10*3/uL [employer] Work Phone: Basophils/100 WBC (Bld) 0 % 0 - 2 % [employer] Work Phone: Differential Type NOT REPORTED [employer] Work Phone: Eosinophils/100 WBC (Bld) 5 % High 1 - 4 % [employer] Work Phone: Hematocrit (Bld) [Volume fraction] 38.9 % 36.3 - 47.1 % [employer] Phone: Hemoglobin.gastrointe stinal spec 1 Ql (Stl) 12.5 g/dL 11.9 - 15.1 g/dL [employer] Phone: Immature granulocytes/100 WBC (Bld) 0 % 0 [employer] Work Phone: Interpretation and review of laboratory results Abnormal [employer] Phone: Lymphocytes/100 WBC (Bld) 38 % 24 - 43 % [employer] Work Phone: MCH (RBC) [Entitic mass] 29.3 pg 25.2 - 33.5 pg [employer] Work Phone: MCHC (RBC) [Mass/Vol] 32.1 g/dL 28.4 - 34.8 g/dL [employer] Phone: MCV (RBC) [Entitic vol] 91.3 fL 82.6 - 102.9 fL [employer] Phone: Monocytes/100 WBC (Bld) 7 % 3 - 12 % [employer] Phone: NRBC Automated 0.0 0.0 per 100 WBC [employer] Phone: Platelet distribution width (Bld) [Ratio] 13.3 % 11.8 - 14.4 % [employer] Phone: Platelet Estimate NOT REPORTED [employer] Phone: Platelet mean volume (Bld) [Entitic vol] 10.4 fL 8.1 - 13.5 fL [employer] Phone: Platelets (Bld) [#/Vol] 181 10*3/uL [employer] Phone: RBC (Bld) [#/Vol] 4.26 10*6/uL 3.95 - 5.1 1 m/uL [employer] Phone: RBC (Bld) [#/Vol] NOT REPORTED [employer] Phone: Segmented neutrophils/100 WBC (Bld) 50 % 36 - 65 % [employer] Phone: Segs Absolute 2.49 [employer] Work Phone: WBC (Bld) [#/Vol] 5.0 10*3/uL [employer] Phone: WBC (Bld) [#/Vol] NOT REPORTED [employer] Phone: [employer] Work Phone: Comprehensive Metabolic Pane l w/ Reflex to MGOrdered By: Sai Hernandez on 12-27-2020 Albumin [Mass/Vol] 4.1 g/dL 3.5 - 5.2 g/dL [employer] Phone: Albumin/Globulin [Mass ratio] 1.7 {ratio} [employer] Phone: ALP (Bld) [Catalytic activity/Vol] 92 U/L 35 - 104 U/L [employer] Phone: ALT [Catalytic activity/Vol] 19 U/L 5 - 33 U/L [employer] Phone: Anion gap [Moles/Vol] 13 mmol/L 9 - 17 mmol/L [employer] Phone: AST [Catalytic activity/Vol] 25 U/L <32 [employer] Phone: Bilirubin [Mass/Vol] 0.57 mg/dL 0.3 - 1 .2 mg/dL [employer] Phone: Calcium [Mass/Vol] 9.4 mg/dL 8.6 - 10. 4 mg/dL [facility] Phone: Chloride [Moles/Vol] 101 mmol/L 98 - 10 7 mmol/L [facility] Phone: CO2 [Moles/Vol] 21 mmol/L 20 - 31 mmol/L [facility] Phone: Creatinine [Mass/Vol] 0.73 mg/dL 0.50 - 0.90 mg/dL [facility] Phone: Free PSA/Total PSA [Mass fraction] 6.5 g/dL 6.4 - 8.3 g/dL [facility] Phone: GFR >60 >60 mL/min [facility] Phone: GFR Non- >60 >60 mL/min Lorena Gaxiola Phone: Glucose [Mass/Vol] 104 mg/dL High 70 - 99 mg/dL [facility] Phone: Potassium [Moles/Vol] 4.0 mmol/L 3.7 - 5.3 mmol/L [facility] Work Phone: Sodium [Moles/Vol] 135 mmol/L 135 - 144 mmol/L [facility] Work Phone: Urea nitrogen (BldV) [Mass/Vol] 9 mg/dL 6 - 20 mg/dL [facility] Work Phone: Urea nitrogen/Creatinine (Bld) [Mass ratio] 12 [facility] Work Phone: Drug screen multi urineOrder ed By: Sai Hernandez on 12-27-2020 Amphetamine Screen, Ur Positive Abnormal NEGATIVE [facility] Work Phone: Barbiturate Screen, Ur Negative NEGATIVE [facility] Work Phone: Benzodiazepine Screen, Urine Negative NEGATIVE [facility] Work Phone: Buprenorphine Urine Negative NEGATIVE [facility] Work Phone: Cannabinoid Scrn, Ur Positive Abnormal NEGATIVE [facility] Work Phone: Cocaine Metabolite, Urine Positive Abnormal NEGATIVE [facility] Work Phone: Interpretation and review of laboratory results Abnormal [facility] Work Phone: MDMA, Urine NOT REPORTED NEGATIVE [facility] Work Phone: Methadone Screen, Urine Negative NEGATIVE [facility] Work Phone: Methamphetamine, Urine Positive Abnormal NEGATIVE [facility] Work Phone: Opiates, Urine Negative NEGATIVE [facility] Work Phone: Oxycodone Screen, Ur Negative NEGATIVE [facility] Work Phone: Phencyclidine, Urine Negative NEGATIVE [facility] Work Phone: Propoxyphene, Urine Negative NEGATIVE [facility] Work Phone: Test Information NOT REPORTED [facility] Work Phone: Tricyclic Antidepressants, Urine Negative NEGATIVE [facility] Work Phone: Comment on above: Drug screen results are to be used for medical purposes only. All positive results are unconfirmed. Testing for employment or legal uses should be sent to a reference laboratory for confirmation. [facility] Phone: EthanolOrdered By: Sai munson on 12-27-2020 Ethanol [Mass/Vol] mg/dL <10 mg/dL [facility] Work Phone: Ethanol percent <0.010 <0.010 % [facility] Work Phone: [facility] Work Phone: Glucose, Whole BloodOrdered By: Sai Hernandez on 12-27-2020 Glucose [Mass/Vol] 75 mg/dL 74 - 100 mg/dL [facility] Phone: [facility] Phone: HCG, Quantitative, Ordered By: Sai Hernandez on 12-27-2020 hCG Quant <1 <5 IU/L [facility] Phone: Comment on above: Non-preg premeno <=5 Postmeno <=8 Male <=3 If HCG results do not concur with clinical observations, additional testing to confirm results is recommended. Elevated results not associated with may be found in patients with other diseases such as tumors of the germ cells (testis, ovaries, etc.), bladder, pancreas, stomach, lungs, and liver. [facility] Phone: Laboratory - Chemistry and C hemistry - challengeOrdered By: Sai Hernandez on 12-27-2020 GFR/1.73 sq M.predicted MDRD (S/P/Bld) [Vol rate/Area] [facility] Phone: Comment on above: Average GFR for 30-3 9 years old: 107 mL/min/1.73sq m Chronic Kidney Disease: <60 mL/min/1.73sq m Kidney failure: <15 mL/min/1.73sq m eGFR calculated using average adult body mass. Additional eGFR calculator available at: http://www.[employer]ed/multiple_crcl_2012.htm Stage 1: Some kidney damage normal GFR Stage 2: Mild kidney damage GFR 60-89 Stage 3: Moderate kidney damage GFR 30-59 Stage 4: Severe kidney damage GFR 15-29 Stage 5: Severe kidney damage GFR <15 ESRD - chronic treatment by dialysis or transplant No Panel InformationOrdered By: Sai Hernandez on 12-27-2020 Interpretation and review of laboratory results Abnormal [facility] Work Phone: [facility] Work Phone: SalicylateOrdered By: Gonzalez Hernandez on 12-27-2020 Salicylate Lvl <1 Low 3 - 10 mg/dL [facility] Work Phone: Urinalysis, reflex to micros copicOrdered By: Sai Hernandez on 12-27-2020 Bilirubin Urine Negative NEGATIVE [facility] Work Phone: Color, UA Yellow Yellow [facility] Work Phone: Glucose, Ur Negative NEGATIVE [facility] Work Phone: Interpretation and review of laboratory results Abnormal [facility] Work Phone: Ketones Ql (U) Negative NEGATIVE [facility] Work Phone: Leukocyte esterase Test strip Ql (U) Negative NEGATIVE [facility] Work Phone: Nitrite, Urine Negative NEGATIVE [facility] Work Phone: pH, UA 6.0 [facility] Work Phone: Protein, UA Negative NEGATIVE [facility] Work Phone: Specific [place], UA <1.005 Low [facility] Work Phone: Turbidity UA Clear Clear [facility] Work Phone: Urinalysis Comments NOT REPORTED [facility] Work Phone: Urine Hgb Negative NEGATIVE [facility] Work Phone: Urobilinogen, Urine Normal Normal [facility] Work Phone: [facility] Work Phone: Operative Reporton Operative Report MR#: [id number] S [facility] Pt. Name: Tyrone Lim Room #: PMC Discharge Date: Birthdate: 1985 OPERATIVE REPORT DATE OF SURGERY: 07/08/2020 SURGEON: Aleyda Gomez M.D. ASSISTANTS: Leatha Mckeon MD SEDATION: Moderate sedation provided by Sun Please note Nursing charts for sedation protocol. PREOPERATIVE DIAGNOSIS: Bilateral Lumbar radiculopathy PROCEDURE: Bilateral transforaminal epidural steroid block with fluoroscopy at the level of S1. POSTOPERATIVE DIAGNOSIS: Bilateral Lumbar radiculopathy ESTIMATED BLOOD COUNT: None. COMPLICATIONS: None. MONITORS: Standard ASA monitors were placed during the entire procedure and the immediate postoperative period. The patient was communicating with us throughout the whole entire procedure. PREPARATION OF THE PROCEDURE: Oxygen saturation and vital signs were monitored continuously throughout the entire procedure in order to interact and give feedback. The x-ray laser/electro optics technician was supervised and instructed to operate the fluoroscopy machine. PROCEDURE: The procedure risks, hazards and alternatives were discussed with the patient and a proper consent was obtained. The patient was taken to the procedure room. The patient was placed prone on the fluoroscopy table and was monitored appropriately. The back was prepped and draped. The C-arm was brought in. The endplates at the above levels were squared off. The C-arm was rotated to appropriate side. The pedicle and the superior articular process of the above facet and the neck of the yovany dog were all visualized. After adequate local anesthesia, a 25-gauge, 5-inch Andrew spinal needle was inserted using hspr-ktj-vfqfsi-of-the-n eedle technique. The needle was advanced into the posterior aspect of the foramen and then advanced anteriorly toward the 6 o'clock position on the pedicle. No paresthesias were noted. Then contrast was injected and spread medially around the pedicle and into the epidural space and the nerve root was visualized. Dexamethasone 5 mg plus 1 mL of 1% preservative-free lidocaine plus 1ml of normal saline was injected on each side. The needle was flushed and removed. The patient was awake and alert and taken to the recovery room in good condition. POSTPROCEDURE INSTRUCTIONS: Postprocedure vital signs and oximetry were stable. The patient was discharged with instructions to ice the injection site as needed for 15-20 minutes, as frequently as twice per hour for the next day and to avoid aggressive activities for 1 day. The patient was told to resume all medications. The patient was told to be in relative rest for 1 day, but then could resume all normal activities. The patient was instructed to seek immediate medical attention for shortness of breath, chest pain, fever, chills, increased pain, weakness, sensory or motor changes, or changes in bowel or bladder function. Reviewed By: Carla Mckeon MD 07/08/2020 04:07 P Edited and Electronically Signed by: Aleyda Gomez M.D. 07/08/2020 10:43 P Aleyda Gomez M.D. I was present for the entire procedure. Date Dict: 07/08/2020/02:30 P/Carla Mckeon MD Date Trans: 07/08/2020 02:30 P/ [id number] Normal [facility] SPINAL PAIN BLOCKon 07-09-19 21 SPINAL PAIN BLOCK [facility] Department of Radiology [address] [place] [phone] == Patient Name: TYRONE LIM : 1985 Sex: F Age: Race: White Pt. Location: 18 Patient Status: Ordered Date: 07/08/2020 5:00:00 AM Completed Date: 07/08/2020 01:13 PM Requesting Provider: ALEYDA GOMEZ Attending Provider: Report Copy To: Signs & Symptoms: M96.1 Postlaminectomy syndrome, not elsewhere classified I10 History: Comments: [id number] (50) BILAT S1 TFESI #2 Exam: SPINAL PAIN BLOCK == SPINAL PAIN BLOCK 07/08/2020 1:13 PM SIGNS AND SYMPTOMS: M96.1 Postlaminectomy syndrome, not elsewhere classified I10 TECHNOLOGIST COMMENTS:bilateral S1 TFE .34 min. fluoro. time used - Dr. Gomez IMPRESSION: 0.34 minutes of fluoroscopy was provided for Dr. Gomez for an epidural pain block. Millicent FerraroRT-R Welding Lead Burner Electronically signed: ONLY DOCUMENTATION. Transcribed by: [email or web address], User Resident: Electronically Signed by: ONLY DOCUMENTATION @ 07/08/2020 02:14 PM Normal [facility] Comment on above: Order Comment: [id number] (50) BILAT S1 TFESI #2 Operative Reporton Operative Report MR#: [id number] S [facility] Pt. Name: Tyrone Lim Room #: PMC Discharge Date: Birthdate: 1985 OPERATIVE REPORT DATE OF SURGERY: 06/23/2020 SURGEON: Aleyda Gomez M.D. ASSISTANTS: Leatha Mckeon SEDATION: Moderate sedation provided by Sun Please note Nursing charts for sedation protocol. PREOPERATIVE DIAGNOSIS: Bilateral Lumbosacral radiculopathy PROCEDURE: 1. Bilateral transforaminal epidural steroid block with fluoroscopy at the level of S1. POSTOPERATIVE DIAGNOSIS: Bilateral Lumbosacral radiculopathy ESTIMATED BLOOD COUNT: None. COMPLICATIONS: None. MONITORS: Standard ASA monitors were placed during the entire procedure and the immediate postoperative period. The patient was communicating with us throughout the whole entire procedure. PREPARATION OF THE PROCEDURE: Oxygen saturation and vital signs were monitored continuously throughout the entire procedure in order to interact and give feedback. The x-ray laser/electro optics technician was supervised and instructed to operate the fluoroscopy machine. PROCEDURE: The procedure risks, hazards and alternatives were discussed with the patient and a proper consent was obtained. The patient was taken to the procedure room. The patient was placed prone on the fluoroscopy table and was monitored appropriately. The back was prepped and draped. The C-arm was brought in. The endplates at the above levels were squared off. The C-arm was rotated to appropriate side. The pedicle and the superior articular process of the above facet and the neck of the yovany dog were all visualized. After adequate local anesthesia, a 25-gauge, 5-inch andrew needle was inserted using xdmc-kma-bzymzx-of-the-n eedle technique. The needle was advanced into the posterior aspect of the foramen and then advanced anteriorly toward the 6 o'clock position on the pedicle. No paresthesias were noted. Then contrast was injected and spread medially around the pedicle and into the epidural space and the nerve root was visualized, on both sides. Dexamthasone 5mg plus 1 mL of 1% preservative-free lidocaine and 1ml of saline was injected on each side. The needle was flushed and removed. Opposite side was done in similar fashion. The patient was awake and alert and taken to the recovery room in good condition. POSTPROCEDURE INSTRUCTIONS: Postprocedure vital signs and oximetry were stable. The patient was discharged with instructions to ice the injection site as needed for 15-20 minutes, as frequently as twice per hour for the next day and to avoid aggressive activities for 1 day. The patient was told to resume all medications. The patient was told to be in relative rest for 1 day, but then could resume all normal activities. The patient was instructed to seek immediate medical attention for shortness of breath, chest pain, fever, chills, increased pain, weakness, sensory or motor changes, or changes in bowel or bladder function. Reviewed By: Carla Mckeon MD 06/23/2020 12:46 P Edited and Electronically Signed by: Aleyda Gomez M.D. 06/23/2020 02:30 P Aleyda Gomez M.D. I was present for the entire procedure. Date Dict: 06/23/2020/12:38 P/Carla Mckeon MD Date Trans: 06/23/2020 12:38 P/ [id number] Normal [facility] SPINAL PAIN BLOCKon 06-24-19 21 SPINAL PAIN BLOCK [facility] Department of Radiology [address] [place] [phone] == Patient Name: TYRONE LIM : 1985 Sex: F Age: Race: White Pt. Location: 18 Patient Status: Ordered Date: 06/11/2020 5:00:00 AM Completed Date: 06/23/2020 11:44 AM Requesting Provider: ALEYDA GOMEZ Attending Provider: Report Copy To: Signs & Symptoms: M96.1 Postlaminectomy syndrome, not elsewhere classified I10 History: Comments: [id number] (50) BILAT S1 TFESI #1 Exam: SPINAL PAIN BLOCK == SPINAL PAIN BLOCK 06/23/2020 11:44 AM SIGNS AND SYMPTOMS: M96.1 Postlaminectomy syndrome, not elsewhere classified I10 TECHNOLOGIST COMMENTS:Dr. Gomez used .43 min of white fluoro time arti S1 TFE IMPRESSION: 0.43 minutes of fluoroscopy was provided for her Patricia for an epidural pain block. ERIC BurchR Welding Lead Burner Electronically signed: ONLY DOCUMENTATION. Transcribed by: [email or web address], User Resident: Electronically Signed by: ONLY DOCUMENTATION @ 06/23/2020 03:20 PM Normal [facility] Comment on above: Order Comment: [id number] (69) BILQUAN Brooks TFESI #1 MRI LUMBAR SPINE WO CONTRAST on 09-05-2019 MRI LUMBAR SPINE WO CONTRAST [facility] Department of Radiology [address] [place] [phone] == Patient Name: TYRONE LIM : 1985 Sex: F Age: Race: White Pt. Location: 18 Patient Status: D Ordered Date: 08/23/2019 8:55:00 AM Completed Date: 09/05/2019 11:17 AM Requesting Provider: ALEYDA GOMEZ Attending Provider: Report Copy To: Signs & Symptoms: M54.5 Low back pain I10 History: Nena PC Auth via Clear Coverage for CPT 23893 Auth#[id number] Valid 08/28/19-11/26/19 *Sla No to all COVID questions - jlr Comments: Please Evaluate Exam: MRI LUMBAR SPINE WO CONTRAST == MRI LUMBAR SPINE WO CONTRAST INDICATION: Low back pain. TECHNIQUE: Multisequence, multiplanar MRI of the lumbar spine is performed without intravenous contrast. COMPARISON: Lumbar spine MRI 04/15/2016 FINDINGS: There is significant motion degradation, the sagittal STIR and axial sequences are nearly nondiagnostic. Within these limits: Numbering assumes 5 lumbar type vertebrae. No compression deformity. No fracture. No suspicious osseous lesion. L2 vertebral body hemangiomas. L4-S1 disc degeneration. The visualized cord is within normal limits. Normal appearance of the cauda equina nerve roots. The conus medullaris terminates at L1-L2. Paravertebral and visualized intraabdominal structures are unremarkable. Level by level: L1-L2: Broad-based disc bulge without significant spinal canal stenosis. No significant neuroforaminal narrowing. L2-L3: Broad-based disc bulge, ligamentum flavum thickening, facet arthropathy with mild spinal canal stenosis and minimal right-sided neuroforaminal narrowing. L3-L4: Broad-based disc bulge with slightly increased left intraforaminal component, facet arthropathy, ligamentum flavum thickening results in mild spinal canal stenosis and mild left-sided neuroforaminal narrowing. L4-L5: Broad-based disc bulge, facet arthropathy, ligamentum flavum thickening results in mild spinal canal stenosis and mild bilateral neuroforaminal narrowing. L5-S1: Broad-based disc bulge, facet arthropathy without significant spinal canal stenosis over there is mild right and moderate to severe left-sided neuroforaminal narrowing. IMPRESSION: There is significant motion degradation, the sagittal STIR and axial sequences are nearly nondiagnostic and compromises evaluation. 1. Multilevel degenerative changes with varying degrees of spinal canal stenosis and neuroforaminal narrowing as described. Electronically signed: Arsh Hatfield. Transcribed by: [email or web address], User Resident: Electronically Signed by: ARSH HATFIELD @ 09/06/2019 01:26 PM Normal [facility] Comment on above: Order Comment: Pleestefanía e Evaluate Operative Reporton 0 Operative Report MR#: [id number] S [facility] Pt. Name: Tyrone Lim Room #: PMC Discharge Date: Birthdate: 1985 OPERATIVE REPORT DATE OF SURGERY: 08/07/2019 SURGEON: Aleyda Gomez M.D. ASSISTANTS: Ronni Armijo MD SEDATION: Moderate sedation provided by Sun Please note Nursing charts for sedation protocol. PREOPERATIVE DIAGNOSIS: Bilateral lumbosacral radiculopathy PROCEDURE: 1. Bilateral transforaminal epidural steroid block with fluoroscopy at the level of S1 POSTOPERATIVE DIAGNOSIS: Bilateral lumbosacral radiculopathy ESTIMATED BLOOD COUNT: None. COMPLICATIONS: None. SPECIMENS: None. MONITORS: Standard ASA monitors were placed during the entire procedure and the immediate postoperative period. The patient was communicating with us throughout the whole entire procedure. PREPARATION OF THE PROCEDURE: Oxygen saturation and vital signs were monitored continuously throughout the entire procedure in order to interact and give feedback. The x-ray laser/electro optics technician was supervised and instructed to operate the fluoroscopy machine. PROCEDURE: The procedure risks, hazards and alternatives were discussed with the patient and a proper consent was obtained. The patient was taken to the procedure room. The patient was placed prone on the fluoroscopy table and was monitored appropriately. The back was prepped and draped. The C-arm was brought in. The endplates at the above levels were squared off. The C-arm was rotated to appropriate side. The pedicle and the superior articular process of the above facet and the neck of the yovany dog were all visualized. After adequate local anesthesia, a 25 -gauge, 5-inch Andrew spinal needle was inserted using kglf-idt-jymlkp-of-the-n eedle technique. The needle was advanced into the posterior aspect of the foramen and then advanced anteriorly toward the 6 o'clock position on the pedicle. No paresthesias were noted. Then 0.5 mL of contrast was injected and spread medially around the pedicle and into the epidural space and the nerve root was visualized. Dexamethasone 5mg with 2.5 ml of 0.5% lidocaine preservative-free was injected on each side. The needle was flushed and removed. Extra levels and opposite side levels were done in similar fashion if indicated. The patient was awake and alert and taken to the recovery room in good condition. POSTPROCEDURE INSTRUCTIONS: Postprocedure vital signs and oximetry were stable. The patient was discharged with instructions to ice the injection site as needed for 15-20 minutes, as frequently as twice per hour for the next day and to avoid aggressive activities for 1 day. The patient was told to resume all medications. The patient was told to be in relative rest for 1 day, but then could resume all normal activities. The patient was instructed to seek immediate medical attention for shortness of breath, chest pain, fever, chills, increased pain, weakness, sensory or motor changes, or changes in bowel or bladder function. Reviewed By: Ronni Armijo MD 08/07/2019 04:15 P Edited and Electronically Signed by: Aleyda Gomez M.D. 08/09/2019 11:57 A Aleyda Gomez M.D. I was present for the entire procedure. Date Dict: 08/07/2019/03:57 P/Ronni Armijo MD Date Trans: 08/07/2019 03:57 P/ [id number] Normal [facility] SPINAL PAIN BLOCKon 08-07-19 20 SPINAL PAIN BLOCK [facility] Department of Radiology [address] [place] [phone] == Patient Name: TYRONE LIM : 1985 Sex: F Age: Race: White Pt. Location: 18 Patient Status: D Ordered Date: 07/23/2019 5:00:00 AM Completed Date: 08/07/2019 02:05 PM Requesting Provider: ALEYDA GOMEZ Attending Provider: Report Copy To: Signs & Symptoms: M96.1 Postlaminectomy syndrome, not elsewhere classified I10 History: Comments: LEFT S1 TFESI X1 Exam: SPINAL PAIN BLOCK == SPINAL PAIN BLOCK 08/07/2019 2:05 PM SIGNS AND SYMPTOMS: M96.1 Postlaminectomy syndrome, not elsewhere classified I10 TECHNOLOGIST COMMENTS:Bilateral S1 TFESI with Dr. Gomez - 57 seconds of fluoro time 8 images 15.55 mGy IMPRESSION: 57 seconds of fluoroscopy was provided for Dr. Gomez for an epidural pain block. 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 Transcribed by: [email or web address], User Resident: Electronically Signed by: ONLY DOCUMENTATION @ 08/13/2019 09:18 AM Normal [facility] Comment on above: Order Comment: LEFT S1 TFESI X1 Otheron 2019 Left foot: No acute osseous abnormality. Right foot: Nondisplaced fracture through the 5th metatarsal head without intra-articular extension. Comminuted distal 4th metatarsal fracture with slight impaction and overriding. No joint dislocation is noted. Soft tissue swelling over the forefoot is noted. [employer] EXAMINATION: TWO XRA Y VIEWS OF THE LEFT FOOT; TWO XRAY VIEWS OF THE RIGHT FOOT 2019 3:24 pm COMPARISON: Left foot 15 October 2018 HISTORY: ORDERING SYSTEM PROVIDED HISTORY: fell on it TECHNOLOGIST PROVIDED HISTORY: fell on it FINDINGS: Left foot: Mineralization and alignment are satisfactory. No acute fracture, dislocation, or localized soft tissue swelling is noted. LisFranc relationship is preserved. Right foot: The patient has relatively nondisplaced fracture through the 5th metatarsal head without apparent extension into the 5th metatarsal phalangeal joint. Comminuted fracture through the mid and distal 4th metatarsal shaft is noted with slight impaction at the fracture site, overriding of 5-6 mm. Fracture is otherwise relatively nondisplaced. No joint dislocation is noted. LisFranc relationship is preserved. Soft tissue swelling over the midfoot is noted. [employer] [place], [employer] Incoming Radiant Results From [employer] - 2019 3:40 PM EST EXAMINATION: TWO XRAY VIEWS OF THE LEFT FOOT; TWO XRAY VIEWS OF THE RIGHT FOOT 2019 3:24 pm COMPARISON: Left foot 15 October 2018 HISTORY: ORDERING SYSTEM PROVIDED HISTORY: fell on it TECHNOLOGIST PROVIDED HISTORY: fell on it FINDINGS: Left foot: Mineralization and alignment are satisfactory. No acute fracture, dislocation, or localized soft tissue swelling is noted. LisFranc relationship is preserved. Right foot: The patient has relatively nondisplaced fracture through the 5th metatarsal head without apparent extension into the 5th metatarsal phalangeal joint. Comminuted fracture through the mid and distal 4th metatarsal shaft is noted with slight impaction at the fracture site, overriding of 5-6 mm. Fracture is otherwise relatively nondisplaced. No joint dislocation is noted. LisFranc relationship is preserved. Soft tissue swelling over the midfoot is noted. IMPRESSION: Left foot: No acute osseous abnormality. Right foot: Nondisplaced fracture through the 5th metatarsal head without intra-articular extension. Comminuted distal 4th metatarsal fracture with slight impaction and overriding. No joint dislocation is noted. Soft tissue swelling over the forefoot is noted. [place], [place] Basic Metabolic Panelon 12-07 Anion gap [Moles/Vol] 10 mmol/L 9 - 17 mmol/L [place], [place] Bun/Cre Ratio 9 [place] Calcium [Mass/Vol] 9.6 mg/dL 8.6 - 10. 4 mg/dL [place] Chloride [Moles/Vol] 107 mmol/L 98 - 10 7 mmol/L [place] CO2 [Moles/Vol] 22 mmol/L 20 - 31 mmol/L [place] Creatinine [Mass/Vol] 0.89 mg/dL 0.5 - 0.9 mg/dL [place] GFR >60 >60 mL/min [place], [place] GFR Non- >60 >60 mL/min [place] Glucose [Mass/Vol] 75 mg/dL 70 - 99 mg/dL [place] Interpretation and review of laboratory results Abnormal [place] Potassium [Moles/Vol] 5.9 mmol/L High 3.7 - 5.3 mmol/L [place] Sodium [Moles/Vol] 139 mmol/L 135 - 144 mmol/L [place] Urea nitrogen [Mass/Vol] 8 mg/dL 6 - 20 mg/dL [place] C-Reactive Proteinon 019 CRP [Mass/Vol] 3.4 mg/L 0 - 5 mg/L [place] CBC Auto Differentialon 12-07 Basophils (Bld) [#/Vol] 0.03 10*3/uL [place] Basophils/100 WBC (Bld) 0 % 0 - 2 % [place] Differential Type NOT REPORTED [place] Eosinophils (Bld) [#/Vol] 0.39 10*3/uL [place] Eosinophils/100 WBC (Bld) 4 % 1 - 4 % [place] Erythrocyte distribution width (RBC) [Ratio] 12.7 % 11.8 - 14.4 % [place] Hematocrit (Bld) [Volume fraction] 46.9 % 36.3 - 47.1 % [place] Hemoglobin (Bld) [Mass/Vol] 15.6 g/dL High 11.9 - 15.1 g/dL [place] Immature granulocytes (Bld) [#/Vol] 1 % High 0 [place], [place] Immature granulocytes (Bld) [#/Vol] 0.05 10*3/uL [place] Interpretation and review of laboratory results Abnormal [place] Lymphocytes (Bld) [#/Vol] 2.86 10*3/uL [place] Lymphocytes/100 WBC (Bld) 30 % 24 - 43 % [place] MCH (RBC) [Entitic mass] 30.6 pg 25.2 - 33.5 pg [place] MCHC (RBC) [Mass/Vol] 33.3 g/dL 28.4 - 34.8 g/dL [place] MCV (RBC) [Entitic vol] 92.0 fL 82.6 - 102.9 fL [place] Monocytes (Bld) [#/Vol] 0.62 10*3/uL [place], [place] Monocytes/100 WBC (Bld) 7 % 3 - 12 % [place] Platelet mean volume (Bld) [Entitic vol] 11.0 fL 8.1 - 13.5 fL [place] Platelets (Bld) [#/Vol] 218 10*3/uL [place] Platelets (Bld) [#/Vol] NOT REPORTED [place] RBC (Bld) [#/Vol] 5.10 10*6/uL 3.95 - 5.1 1 m/uL [place] RBC morphology finding Nom (Bld) NOT REPORTED [place] Segmented neutrophils/100 WBC (Bld) 58 % 36 - 65 % [place] Segs Absolute 5.57 [facility] [place] WBC (Bld) [#/Vol] 9.5 10*3/uL [place] WBC (Bld) [#/Vol] 0.0 10*3/uL 0.0 per 10 0 WBC [place] WBC Morphology NOT REPORTED [place] D-Dimer, Quantitativeon 12-07 D-Dimer, Quant 0.57 High [place], [place] Comment on above: Elevated levels of D dimer can be seen in any state of coagulation activation including DVT, PE, arterial thrombosis, DIC, inflamatory disease, trauma, malignancy, sepsis, infection, hematoma, liver disease, post surgical state, , atherosclerosis, old age. When combined with a low clinical probability, a D dimer value of <0.50 mg/L is considered negative for DVT and PE (negative predictive value of 98%). Interpretation and review of laboratory results Abnormal [place] MRI LUMBAR SPINE WO CONTRAST on 01-03-2019 [place], [facility] Incoming Radiant Results From [employer] - 01/03/2019 5:32 PM EDT EXAMINATION: MRI OF THE LUMBAR SPINE WITHOUT CONTRAST, 01/03/2019 4:24 pm TECHNIQUE: Multiplanar multisequence MRI of the lumbar spine was performed without the administration of intravenous contrast. COMPARISON: None. HISTORY: ORDERING SYSTEM PROVIDED HISTORY: Lumbar pain patient states that she is falling because her legs give out. TECHNOLOGIST PROVIDED HISTORY: Lumbar pain patient states that she is falling because her legs give out. Is the patient ?->No FINDINGS: Evaluation is limited by motion. BONES/ALIGNMENT: No acute fracture. No subluxation. Round hyperintense lesion within L2 is most consistent with a hemangioma. SPINAL CORD: The conus terminates normally. SOFT TISSUES: No paraspinal abnormality. L1-L2: No significant central canal or foraminal stenosis. L2-L3: No significant central canal or foraminal stenosis. L3-L4: Mild facet degenerative changes. No significant central canal or foraminal stenosis. L4-L5: Mild broad-based disc bulge. No significant central canal or foraminal stenosis. L5-S1: Broad-based disc bulge. Large foraminal component measures approximately 17 x 12 x 16 mm. No significant central canal stenosis. Disc bulge and facet degenerative changes combine to create moderate right foraminal stenosis. Disc bulge causes severe left foraminal stenosis and likely contacts the left L5 nerve root. IMPRESSION: Large disc protrusion within the left L5-S1 foramina causing severe stenosis and contacting the left L5 nerve root. [place] EXAMINATION: MRI OF THE LUMBAR SPINE WITHOUT CONTRAST, 01/03/2019 4:24 pm TECHNIQUE: Multiplanar multisequence MRI of the lumbar spine was performed without the administration of intravenous contrast. COMPARISON: None. HISTORY: ORDERING SYSTEM PROVIDED HISTORY: Lumbar pain patient states that she is falling because her legs give out. TECHNOLOGIST PROVIDED HISTORY: Lumbar pain patient states that she is falling because her legs give out. Is the patient ?->No FINDINGS: Evaluation is limited by motion. BONES/ALIGNMENT: No acute fracture. No subluxation. Round hyperintense lesion within L2 is most consistent with a hemangioma. SPINAL CORD: The conus terminates normally. SOFT TISSUES: No paraspinal abnormality. L1-L2: No significant central canal or foraminal stenosis. L2-L3: No significant central canal or foraminal stenosis. L3-L4: Mild facet degenerative changes. No significant central canal or foraminal stenosis. L4-L5: Mild broad-based disc bulge. No significant central canal or foraminal stenosis. L5-S1: Broad-based disc bulge. Large foraminal component measures approximately 17 x 12 x 16 mm. No significant central canal stenosis. Disc bulge and facet degenerative changes combine to create moderate right foraminal stenosis. Disc bulge causes severe left foraminal stenosis and likely contacts the left L5 nerve root. [place] Large disc protrusio n within the left L5-S1 foramina causing severe stenosis and contacting the left L5 nerve root. [place] Metabolic Panelon 01-03-2019 GFR/1.73 sq M predicted among non-blacks MDRD (S/P/Bld) [Vol rate/Area] [place], [place] Comment on above: Average GFR for 30-3 9 years old: 107 mL/min/1.73sq m Chronic Kidney Disease: <60 mL/min/1.73sq m Kidney failure: <15 mL/min/1.73sq m eGFR calculated using average adult body mass. Additional eGFR calculator available at: http://www.[employer] Matchmakers/multiple_crcl_2012.htm Stage 1: Some kidney damage normal GFR Stage 2: Mild kidney damage GFR 60-89 Stage 3: Moderate kidney damage GFR 30-59 Stage 4: Severe kidney damage GFR 15-29 Stage 5: Severe kidney damage GFR <15 ESRD - chronic treatment by dialysis or transplant Sedimentation Rateon 019 Sed Rate 5 mm 0 - 20 mm [place], [place] Urinalysis with Microscopico n 01-03-2019 Amorphous, UA 1+ Abnormal None [place] Bacteria, UA TRACE Abnormal None [place], [place] Bilirubin Urine Negative NEGATIVE [place], [place] Casts UA NOT REPORTED /LPF [place] Color, UA YELLOW YELLOW [place], [place] Crystals UA CALCIUM OXALATE Abnormal None /HPF [place], [place] Crystals UA 2 TO 5 Abnormal None /HPF [place] Epithelial Cells UA 2 TO 5 [place] Glucose, Ur Negative NEGATIVE [place] Interpretation and review of laboratory results Abnormal [place] Ketones Ql (U) TRACE Abnormal NEGATIVE [place], [place] Leukocyte esterase Test strip Ql (U) Negative NEGATIVE [place] Mucus, UA NOT REPORTED None [place], [place] Nitrite, Urine Negative NEGATIVE [place] Other Observations UA NOT REPORTED NOT REQ. [place], [place] pH, UA 5.5 [place], [place] Protein (U) [Mass/Vol] Negative NEGATIVE [place] RBC (U) [#/Vol] None [place], [place] Renal Epithelial, Urine NOT REPORTED 0 /HPF [place] Specific [place], UA 1.020 [place], [place] Trichomonas, UA NOT REPORTED None [facility] [place] Turbidity UA CLEAR CLEAR [place], [place] Urinalysis Comments NOT REPORTED [place], [place] Urine Hgb Negative NEGATIVE [place] Urobilinogen, Urine ELEVATED Abnormal Normal [place] WBC, UA 0 TO 2 [place] Yeast, UA NOT REPORTED [facility] [place] XR CHEST STANDARD (2 VW)on 1 No acute cardiopulmo nary pathology. [place] EXAMINATION: TWO XRA Y VIEWS OF THE CHEST 01/03/2019 4:43 pm COMPARISON: None. HISTORY: ORDERING SYSTEM PROVIDED HISTORY: Rule out pneumonia TECHNOLOGIST PROVIDED HISTORY: Rule out pneumonia FINDINGS: Frontal and lateral views of the chest are submitted for review. The cardiac silhouette is normal in size. Lung parenchyma is clear without focal airspace consolidation, sizeable pleural effusion, or pneumothorax. Trachea is midline. Osseous structures and soft tissues are grossly intact. [place], [facility] Incoming Radiant Results From [employer] - 01/03/2019 4:49 PM EDT EXAMINATION: TWO XRAY VIEWS OF THE CHEST 01/03/2019 4:43 pm COMPARISON: None. HISTORY: ORDERING SYSTEM PROVIDED HISTORY: Rule out pneumonia TECHNOLOGIST PROVIDED HISTORY: Rule out pneumonia FINDINGS: Frontal and lateral views of the chest are submitted for review. The cardiac silhouette is normal in size. Lung parenchyma is clear without focal airspace consolidation, sizeable pleural effusion, or pneumothorax. Trachea is midline. Osseous structures and soft tissues are grossly intact. IMPRESSION: No acute cardiopulmonary pathology. [place] VL DUP LOWER EXTREMITY VENOU S LEFTon 11-15-2018 [facility] Vascular Lower Extremities DVT Study Procedure Patient Name JENNA Date of Study 11/14/2018 HOLGER D Date of 1985 Gender Female Age 33 year(s) Race Room Number Corporate ID # [id number] Patient MR # [id number] Complaint Analyst FANG Banerjee Interpreting Physician Gino Shepherd Referring Referring Physician Nurse Practitioner Additional Comments Study ordered by Misbah Oreilly DPM Copy to Rosana CHOW. Procedure Type of Study: Veins: Lower Extremities DVT Study, Venous Scan Lower Left. Patient Status:Out Patient. Comments:INDICATIONS: Pain and swelling left calf following injury Conclusions Summary No evidence of superficial or deep venous thrombosis in the left lower extremity. Poor resolution in the anterior tibial and peroneal veins. Signature Findings: Right Impression: Left Impression: The common femoral vein was The common femoral, femoral, deep femoral, compressible and with normal popliteal, tibials, peroneal, and doppler responses. saphenous veins were evaluated. Poor resolution was noted in the anterior tibial and peroneal veins. All veins were compressible with normal doppler responses. Edema was noted in the ankle and calf. Prominent lymph nodes were seen in the groin. Velocities are measured in cm/s ; Diameters are measured in cm Right Lower Extremities DVT Study Measurements Right 2D Measurements + + + +------- ---+ !Location !Visualized!Compressibil ity!Thrombosis! + + + +------- ---+ !Common Femoral !Yes !Yes !None ! + + + +------- ---+ Right Doppler Measurements + -----+------+------+---- ---+ !Location !Signal!Reflux!Reflux (msec) ! + -----+------+------+---- ---+ !Common Femoral !Phasic! ! ! + -----+------+------+---- ---+ Left Lower Extremities DVT Study Measurements Left 2D Measurements + + + +------- ---+ !Location !Visualized!Compressibil ity!Thrombosis! + + + +------- ---+ !Common Femoral !Yes !Yes !None ! + + + +------- ---+ !Prox Femoral !Yes !Yes !None ! + + + +------- ---+ !Mid Femoral !Yes !Yes !None ! + + + +------- ---+ !Dist Femoral !Yes !Yes !None ! + + + +------- ---+ !Deep Femoral !Yes !Yes !None ! + + + +------- ---+ !Popliteal !Yes !Yes !None ! + + + +------- ---+ !Sapheno Femoral Junction !Yes !Yes !None ! + + + +------- ---+ !PTV !Yes !Yes !None ! + + + +------- ---+ !Peroneal !No ! ! ! + + + +------- ---+ !Gastroc !Yes !Yes !None ! + + + +------- ---+ !GSV Thigh !Yes !Yes !None ! + + + +------- ---+ !GSV Knee !Yes !Yes !None ! + + + +------- ---+ !GSV Ankle !Yes !Yes !None ! + + + +------- ---+ !SSV !Yes !Yes !None ! + + + +------- ---+ Left Doppler Measurements + ----+------+------+----- ---+ !Location !Signal!Reflux!Reflux (msec) ! + ----+------+------+----- ---+ !Common Femoral !Phasic! ! ! + ----+------+------+----- ---+ !Prox Femoral !Phasic! ! ! + ----+------+------+----- ---+ !Popliteal !Phasic! ! ! + ----+------+------+----- ---+ [facility] [place], [place], pn Incoming Cardio Results From [facility]/ - 11/15/2018 12:52 PM EDT [facility] Vascular Lower Extremities DVT Study Procedure Patient Name JENNA Date of Study 11/14/2018 HOLGER Kash Date of 1985 Gender Female Age 33 year(s) Race Room Number Corporate ID # [id number] Patient MR # [id number] Complaint Analyst FANG Banerjee Interpreting Physician Gino Shepherd Referring Referring Physician Nurse Practitioner Additional Comments Study ordered by Misbah Oreilly DPM Copy to Rosana CHOW. Procedure Type of Study: Veins: Lower Extremities DVT Study, Venous Scan Lower Left. Patient Status:Out Patient. Comments:INDICATIONS: Pain and swelling left calf following injury Conclusions Summary No evidence of superficial or deep venous thrombosis in the left lower extremity. Poor resolution in the anterior tibial and peroneal veins. Signature Findings: Right Impression: Left Impression: The common femoral vein was The common femoral, femoral, deep femoral, compressible and with normal popliteal, tibials, peroneal, and doppler responses. saphenous veins were evaluated. Poor resolution was noted in the anterior tibial and peroneal veins. All veins were compressible with normal doppler responses. Edema was noted in the ankle and calf. Prominent lymph nodes were seen in the groin. Velocities are measured in cm/s ; Diameters are measured in cm Right Lower Extremities DVT Study Measurements Right 2D Measurements + + + +------- --- + !Location !Visualized!Compressibil ity!Thrombosis! + + + +------- --- + !Common Femoral !Yes !Yes !None ! + + + +------- --- + Right Doppler Measurements + -----+------+------+---- --- + !Location !Signal!Reflux!Reflux (msec) ! + -----+------+------+---- --- + !Common Femoral !Phasic! ! ! + -----+------+------+---- --- + Left Lower Extremities DVT Study Measurements Left 2D Measurements + + + +------- --- + !Location !Visualized!Compressibil ity!Thrombosis! + + + +------- --- + !Common Femoral !Yes !Yes !None ! + + + +------- --- + !Prox Femoral !Yes !Yes !None ! + + + +------- --- + !Mid Femoral !Yes !Yes !None ! + + + +------- --- + !Dist Femoral !Yes !Yes !None ! + + + +------- --- + !Deep Femoral !Yes !Yes !None ! + + + +------- --- + !Popliteal !Yes !Yes !None ! + + + +------- --- + !Sapheno Femoral Junction !Yes !Yes !None ! + + + +------- --- + !PTV !Yes !Yes !None ! + + + +------- --- + !Peroneal !No ! ! ! + + + +------- --- + !Gastroc !Yes !Yes !None ! + + + +------- --- + !GSV Thigh !Yes !Yes !None ! + + + +------- --- + !GSV Knee !Yes !Yes !None ! + + + +------- --- + !GSV Ankle !Yes !Yes !None ! + + + +------- --- + !SSV !Yes !Yes !None ! + + + +------- --- + Left Doppler Measurements + ----+------+------+----- --- + !Location !Signal!Reflux!Reflux (msec) ! + ----+------+------+----- --- + !Common Femoral !Phasic! ! ! + ----+------+------+----- --- + !Prox Femoral !Phasic! ! ! + ----+------+------+----- --- + !Popliteal !Phasic! ! ! + ----+------+------+----- --- + [place], [place] Brain Natriuretic Peptideon 11-14-2018 Natriuretic peptide B (Bld) [Mass/Vol] 50 pg/mL <300 [place] Comment on above: Pro-BNP results audrey ot be compared to BNP results. Natriuretic peptide B (Bld) [Mass/Vol] Pro-BNP Reference Range: [place], [place] Comment on above: Rule Out: <300 [place] Zone: Age <50 300-450 Age 50-75 300-900 Age >75 300-1800 Usually represents mild to moderate HF but other cardiopulmonary causes cannot be ruled out. Rule In: Age <50 >450 Age 50-75 >900 Age >75 >1800 CBC Auto Differentialon 11-05 Basophils (Bld) [#/Vol] 0.07 10*3/uL [facility] [place] Basophils/100 WBC (Bld) 1 % 0 - 2 % [place], [place] Differential Type NOT REPORTED [place] Eosinophils (Bld) [#/Vol] 0.73 10*3/uL High [facility], [place] Eosinophils/100 WBC (Bld) 11 % High 1 - 4 % [place] Erythrocyte distribution width (RBC) [Ratio] 13.2 % 11.8 - 14.4 % [place] Hematocrit (Bld) [Volume fraction] 39.1 % 36.3 - 47.1 % [place] Hemoglobin (Bld) [Mass/Vol] 12.8 g/dL 11.9 - 15.1 g/dL [place] Immature granulocytes (Bld) [#/Vol] 1 % High 0 [place], [place] Immature granulocytes (Bld) [#/Vol] 0.07 10*3/uL [place] Interpretation and review of laboratory results Abnormal [place] Lymphocytes (Bld) [#/Vol] 1.78 10*3/uL [place] Lymphocytes/100 WBC (Bld) 27 % 24 - 43 % [place] MCH (RBC) [Entitic mass] 31.0 pg 25.2 - 33.5 pg [place] MCHC (RBC) [Mass/Vol] 32.7 g/dL 28.4 - 34.8 g/dL [place] MCV (RBC) [Entitic vol] 94.7 fL 82.6 - 102.9 fL [place] Monocytes (Bld) [#/Vol] 0.59 10*3/uL [place] Monocytes/100 WBC (Bld) 9 % 3 - 12 % [place] Morphology Cristiano (Bld) [Interp] Normal [place] Platelet mean volume (Bld) [Entitic vol] 11.2 fL 8.1 - 13.5 fL [place] Platelets (Bld) [#/Vol] NOT REPORTED [place] Platelets (Bld) [#/Vol] 213 10*3/uL [place] RBC (Bld) [#/Vol] 4.13 10*6/uL 3.95 - 5.1 1 m/uL [place] RBC morphology finding Nom (Bld) NOT REPORTED [place] Segmented neutrophils/100 WBC (Bld) 51 % 36 - 65 % [place], [place] Segs Absolute 3.36 [place] WBC (Bld) [#/Vol] 6.6 10*3/uL [place] WBC (Bld) [#/Vol] 0.0 10*3/uL 0.0 per 10 0 WBC [place] WBC Morphology NOT REPORTED [place] Comprehensive Metabolic Pane l w/ Reflex to MGon 11-14-2018 Albumin [Mass/Vol] 3.6 g/dL 3.5 - 5.2 g/dL [place] Albumin/Globulin [Mass ratio] 1.3 {ratio} [place] ALP [Catalytic activity/Vol] 407 U/L High 35 - 104 U/L [place] ALT [Catalytic activity/Vol] 723 U/L High 5 - 33 U/L [place] Anion gap [Moles/Vol] 13 mmol/L 9 - 17 mmol/L [place] AST [Catalytic activity/Vol] 657 U/L High <32 [place] Bilirubin Ql (U) 1.91 mg/dL High 0.3 - 1.2 mg/dL [place] Bun/Cre Ratio 19 [place] Calcium [Mass/Vol] 8.9 mg/dL 8.6 - 10. 4 mg/dL [place] Chloride [Moles/Vol] 103 mmol/L 98 - 10 7 mmol/L [place] CO2 [Moles/Vol] 24 mmol/L 20 - 31 mmol/L [place] Creatinine [Mass/Vol] 0.96 mg/dL High 0.5 - 0.9 mg/dL [place] GFR >60 >60 mL/min [place] GFR Non- >60 >60 mL/min [place] Glucose [Mass/Vol] 71 mg/dL 70 - 99 mg/dL [place] Interpretation and review of laboratory results Abnormal [place] Potassium [Moles/Vol] 4.0 mmol/L 3.7 - 5.3 mmol/L [place] Protein [Mass/Vol] 6.4 g/dL 6.4 - 8.3 g/dL [place] Sodium [Moles/Vol] 140 mmol/L 135 - 144 mmol/L [place] Urea nitrogen [Mass/Vol] 18 mg/dL 6 - 20 mg/dL [place] HIV Screenon 11-14-2018 HIV Ag/Ab NONREACTIVE NONREACTIVE [place] Comment on above: No laboratory eviden ce of HIV infection. If acute HIV infection is suspected, consider testing for HIV-1 RNA. Hepatitis Panel, Acuteon HAV IgM IA Qn (S) NONREACTIVE NONREACTIVE [place] Hep B Core Ab, IgM NONREACTIVE NONREACTIVE [place] Hepatitis B Surface Ag NONREACTIVE NONREACTIVE [place] Hepatitis C Ab REACTIVE Abnormal NONREACTIVE [facility] [place] [place] Comment on above: The hepatitis C procedure used in our laboratory is a Chemiluminescent test specific for three recombinant HCV antigens. A negative anti-HCV result indicates that the antibodies to hepatitis C virus are not present at this time. Individuals with reactive anti-HCV should be considered infected and infectious until proven otherwise. Confirmation of all equivocal or reactive results is recommended by ordering HCV RNA by PCR. Results reported to the appropriate Health Department Interpretation and review of laboratory results Abnormal [place], [place] Metabolic Panelon 11-14-2018 GFR/1.73 sq M predicted among non-blacks MDRD (S/P/Bld) [Vol rate/Area] [place], [place] Comment on above: Average GFR for 30-3 9 years old: 107 mL/min/1.73sq m Chronic Kidney Disease: <60 mL/min/1.73sq m Kidney failure: <15 mL/min/1.73sq m eGFR calculated using average adult body mass. Additional eGFR calculator available at: http://www.[employer]/multiple_crcl_2012.htm Stage 1: Some kidney damage normal GFR Stage 2: Mild kidney damage GFR 60-89 Stage 3: Moderate kidney damage GFR 30-59 Stage 4: Severe kidney damage GFR 15-29 Stage 5: Severe kidney damage GFR <15 ESRD - chronic treatment by dialysis or transplant T. pallidum Abon 11-14-2018 T. pallidum, IgG NONREACTIVE NONREACTIVE [place] Comment on above: T. pallidum antibodies are not detected. There is no serological evidence of infection with T. pallidum (early primary syphilis cannot be excluded). Retest in 2-4 weeks if syphilis is clinically suspect. Otheron 10-15-2018 *No acute bony proce ss seen involving the left foot or ankle. *There appears to be remote injury involving the talonavicular joint. Please correlate with area of pain. [facility] [employer] EXAMINATION: THREE X RAY VIEWS OF THE LEFT ANKLE; THREE XRAY VIEWS OF THE LEFT FOOT 10/15/2018 9:29 am COMPARISON: None. HISTORY: ORDERING SYSTEM PROVIDED HISTORY: fall on it 3-4 days ago w/ swelling TECHNOLOGIST PROVIDED HISTORY: fall on it 3-4 days ago w/ swelling Reason for Exam: PT CO pain in left foot and ankle after rolling it stepping off her steps 4 days ago. Pain and swelling to effected area. Acuity: Acute Type of Exam: Initial FINDINGS: Left ankle: No focal soft tissue abnormality is identified. Ankle mortise appears intact. No acute bony process is seen. Left foot: No focal soft tissue abnormality is identified. There appears to be remote injury involving the talonavicular joint. No definite acute bony process is seen. Joint spaces appear well maintained. No bony erosions. [facility] [place], [facility] Incoming Radiant Results From [employer] - 10/15/2018 10:00 AM EDT EXAMINATION: THREE XRAY VIEWS OF THE LEFT ANKLE; THREE XRAY VIEWS OF THE LEFT FOOT 10/15/2018 9:29 am COMPARISON: None. HISTORY: ORDERING SYSTEM PROVIDED HISTORY: fall on it 3-4 days ago w/ swelling TECHNOLOGIST PROVIDED HISTORY: fall on it 3-4 days ago w/ swelling Reason for Exam: PT CO pain in left foot and ankle after rolling it stepping off her steps 4 days ago. Pain and swelling to effected area. Acuity: Acute Type of Exam: Initial FINDINGS: Left ankle: No focal soft tissue abnormality is identified. Ankle mortise appears intact. No acute bony process is seen. Left foot: No focal soft tissue abnormality is identified. There appears to be remote injury involving the talonavicular joint. No definite acute bony process is seen. Joint spaces appear well maintained. No bony erosions. IMPRESSION: *No acute bony process seen involving the left foot or ankle. *There appears to be remote injury involving the talonavicular joint. Please correlate with area of pain. [facility] [place] X[facility] LEFT (MIN 3 VIEWS)o n 10-15-2018 XR ANKLE LEFT (MIN 3 VIEWS) EXAMINATION: THREE XRAY VIEWS OF THE LEFT ANKLE; THREE XRAY VIEWS OF THE LEFT FOOT 10/15/2018 9:29 am COMPARISON: None. HISTORY: ORDERING SYSTEM PROVIDED HISTORY: fall on it 3-4 days ago w/ swelling TECHNOLOGIST PROVIDED HISTORY: fall on it 3-4 days ago w/ swelling Reason for Exam: PT CO pain in left foot and ankle after rolling it stepping off her steps 4 days ago. Pain and swelling to effected area. Acuity: Acute Type of Exam: Initial FINDINGS: Left ankle: No focal soft tissue abnormality is identified. Ankle mortise appears intact. No acute bony process is seen. Left foot: No focal soft tissue abnormality is identified. There appears to be remote injury involving the talonavicular joint. No definite acute bony process is seen. Joint spaces appear well maintained. No bony erosions. IMPRESSION: *No acute bony process seen involving the left foot or ankle. *There appears to be remote injury involving the talonavicular joint. Please correlate with area of pain. Interpreted by: Jacoby Oh Jr., DO Signed by: Jacoby Oh Jr., DO 10/15/18 Final result Normal [facility] XR FOOT LEFT (MIN 3 VIEWS)on 10-15-2018 XR FOOT LEFT (MIN 3 VIEWS) EXAMINATION: THREE XRAY VIEWS OF THE LEFT ANKLE; THREE XRAY VIEWS OF THE LEFT FOOT 10/15/2018 9:29 am COMPARISON: None. HISTORY: ORDERING SYSTEM PROVIDED HISTORY: fall on it 3-4 days ago w/ swelling TECHNOLOGIST PROVIDED HISTORY: fall on it 3-4 days ago w/ swelling Reason for Exam: PT CO pain in left foot and ankle after rolling it stepping off her steps 4 days ago. Pain and swelling to effected area. Acuity: Acute Type of Exam: Initial FINDINGS: Left ankle: No focal soft tissue abnormality is identified. Ankle mortise appears intact. No acute bony process is seen. Left foot: No focal soft tissue abnormality is identified. There appears to be remote injury involving the talonavicular joint. No definite acute bony process is seen. Joint spaces appear well maintained. No bony erosions. IMPRESSION: *No acute bony process seen involving the left foot or ankle. *There appears to be remote injury involving the talonavicular joint. Please correlate with area of pain. Interpreted by: Jacoby Oh Jr., DO Signed by: Jacoby Oh Jr., DO 10/15/18 Final result Normal [facility] Basic Metabolic Panlon 10-23 Anion gap 3 molar conc 12 mmol/L Normal 9-18 [facility] Comment on above: Performed By: #### C BCDIF, BMP ####[place] [address] [place] [phone] Calcium mass conc 9.1 mg/dL Normal 8.5-10.2 [facility] Comment on above: Performed By: #### C BCDIF, BMP ####[place] [address] [place] [phone] Chloride molar conc 108 mmol/L High 97-105 [facility] Comment on above: Performed By: #### C BCDIF, BMP ####[place] [address] [place] [phone] CO2 molar conc 23 mmol/L Normal 22-30 [facility] Comment on above: Performed By: #### C BCDIF, BMP ####[place] [address] [address] [place], [place] [phone] Creatinine mass conc 0.94 mg/dL Normal 0.58-0.96 [facility] Comment on above: Performed By: #### C BCDIF, BMP ####[place] [address] [place] [phone] eGFR- Amer. >60 Normal [facility] Comment on above: Performed By: #### C BCDIF, BMP ####[place] [address] [address] [place], [place] [phone] GFR/1.73 sq M predicted among non-blacks MDRD vol rate/area (S/P/Bld) mL/min/{1.73_m2} Normal [facility] Comment on above: Result Comment: eGFR (Estimated GFR) Units of measure: mL/min/1.73 meters squaredeGFR is derived from the reexpressed MDRD Study equation using the following parameters: serum creatinine, age, gender and race. The creatinine assay has been calibrated to be traceable to IDMS.An eGFR <60 mL/min/1.73m2 for >3 months is consistent with chronic kidney disease. Refer to KDOQI guidelines for clinical interpretation.In patients with unstable renal function, e.g. those with acute kidney injury, the eGFR may not accurately reflect actual GFR. Performed By: #### C THEE, BMP ####[facility] [place], [place] [phone] Glucose mass conc 81 mg/dL Normal 74-99 [facility] Comment on above: Result Comment: The [place] [employer] (ADA) provides guidance for cutoff values for fasting glucose and random glucose. The ADA defines fasting as no caloric intake for at least 8 hours. Fasting plasma glucose results between 100 to 125 mg/dL indicate increased risk for diabetes (prediabetes).Fasting plasma glucose results greater than or equal to 126 mg/dL meet the criteria for diagnosis of diabetes. In the absence of unequivocal hyperglycemia, results should be confirmed by repeat testing. In a patient with classic symptoms of hyperglycemia or hyperglycemic crisis, random plasma glucose results greater than or equal to 200 mg/dL meet the criteria for diagnosis of diabetes.Reference: Standards of Medical Care in Diabetes 2016, [place] [employer]. Diabetes Care. 2016.39(Suppl 1). Performed By: #### C THEE BMP ####[facility] [place], [place] [phone] Potassium molar conc 3.8 mmol/L Normal 3.7-5.1 [facility] Comment on above: Performed By: #### C THEE BMP ####[facility] [place], [place] [phone] Sodium molar conc 143 mmol/L Normal 136-144 [facility] Comment on above: Performed By: #### C THEE, BMP ####[facility] [place], [place] [phone] Urea nitrogen mass conc 12 mg/dL Normal 7-21 [facility] Comment on above: Performed By: #### C THEE, BMP ####[place] [address] [address] [place] [phone] CBC and Differentialon 10-23 Abs Baso <0.03 Normal <0.11 [facility] Comment on above: Performed By: #### C BCDIF, BMP ####[place] [address] [address] [place] [phone] Abs Windsor 0.48 k/uL Normal <0.87 [facility] Comment on above: Performed By: #### C BCLEOPOLDO, BMP ####[place] [address] [address] [place] [phone] Abs Neut 2.26 k/uL Normal 1.45-7.50 [facility] Comment on above: Performed By: #### C THEE, BMP ####[place] [address] [address] [phone] Absolute nRBC <0.01 Normal <0.01 [facility] Comment on above: Performed By: #### C BCLEOPOLDO, BMP ####[place] [address] [address] [phone] Basophils/100 WBC Auto (Bld) 0.4 % Normal [facility] Comment on above: Performed By: #### C BCDIF, BMP ####[place] [address] [address] [phone] DTYPE Auto Diff Normal [facility] Comment on above: Performed By: #### C BCDIF, BMP ####[place] [address] [address] [phone] Eosinophils Auto #/vol (Bld) 0.36 10*3/uL Normal <0.46 [facility] Comment on above: Performed By: #### C BCDIF, BMP ####[place] [address] [address], [place] [phone] Eosinophils/100 WBC Auto (Bld) 6.8 % Normal [facility] Comment on above: Performed By: #### C BCDIF, BMP ####[place] [address] [address], [place] [phone] Erythrocyte distribution width Auto Ratio (RBC) 12.3 % Normal 11.5-15.0 [facility] Comment on above: Performed By: #### C BCDIF, BMP ####[place] [address] [address] [place] [phone] Hematocrit Auto Volume Fraction (Bld) 40.2 % Normal 36.0-46.0 [facility] Comment on above: Performed By: #### C BCDIF, BMP ####[place] [address] [address] [place] [phone] Hemoglobin mass conc (Bld) 13.8 g/dL Normal 11.5-15.5 [facility] Comment on above: Performed By: #### C BCDIF, BMP ####[place] [address] [address] [phone] Lymphocytes Auto #/vol (Bld) 2.17 10*3/uL Normal 1.00-4.00 [facility] Comment on above: Performed By: #### C BCDIF, BMP ####[place] [address] [address], [place] [phone] Lymphocytes/100 WBC Auto (Bld) 40.9 % Normal [facility] Comment on above: Performed By: #### C BCDIF, BMP ####[place] [address] [address], [place] [phone] MCH Auto Entitic mass (RBC) 32.5 pG Normal 26.0-34.0 [facility] Comment on above: Performed By: #### C BCDIF, BMP ####[place] [address] [address] [phone] MCHC Auto mass conc (RBC) 34.3 g/dL Normal 30.5-36.0 [facility] Comment on above: Performed By: #### C BCDIF, BMP ####[place] [phone] [place] [phone] MCV Auto Entitic volume (RBC) 94.8 fL Normal 80.0-100.0 [facility] Comment on above: Performed By: #### C BCDIF, BMP ####[place] [address] [address] [phone] Monocytes/100 WBC Auto (Bld) 9.1 % Normal [facility] Comment on above: Performed By: #### C BCDIF, BMP ####[place] [address] [address] [phone] Neutrophils/100 WBC Auto (Bld) 42.8 % Normal [facility] Comment on above: Performed By: #### C BCDIF, BMP ####[place] [address] [address] [phone] NRBCs 0.0 /100 WBC Normal 0 [facility] Comment on above: Performed By: #### C BCDIF, BMP ####[place] [address] [address] [place] [phone] Platelet mean volume Auto Entitic volume (Bld) 10.2 fL Normal 9.0-12.7 [facility] Comment on above: Performed By: #### C BCDIF, BMP ####[place] [address] [address] [place] [phone] Platelets Auto #/vol (Bld) 189 10*3/uL Normal 150-400 [facility] Comment on above: Performed By: #### C BCDIF, BMP ####[place] [address] [address] [place] [phone] RBC Auto #/vol (Bld) 4.24 10*6/uL Normal 3.90-5.20 [facility] Comment on above: Performed By: #### C BCDIF, BMP ####[facility] [place], [place] [phone] WBC Auto #/vol (Bld) 5.30 10*3/uL Normal 3.70-11.00 [facility] Comment on above: Performed By: #### C BCDIF, BMP ####[facility] [place], [place] [phone] ED NOTEon 10-23-2017 ED NOTE HNO ID: [id number]: Jan (Rn) CHADD Westervice: Emergency MedicineAuthor Type: Registered NurseType: ED NotesFiled: 10/23/2017 6:23 PMNote Text: Assumed care of patient. Pt c/o chronic abscesses since 07/2016,current abscess on medial aspect of right thigh midway between groin andknee, tender, red and warm to touch, no active d/c currently noted. Pt.sitting quietly in bed. ABC's intact. Pt is A AND O x 3.No signs of acutedistress. No shortness of breath noted, respirations even and unlabored.Intermittent fevers over the last year, Pt has been to many various OSH'sfor treatment, here for evaluationSide rails up x2. Bed in lowest position. Call light in reach. Willcontinue to monitorPlan of care for patient: monitor patient for any changes in condition,vital signs or pain, continue to maintain patient safety, provide comfortmeasures and answer any questions/concerns the patient may have. Normal [facility] ED PROV NOTEon 10-23-2017 Protein mass conc HNO ID: [id number]: DB Estrellaervice: Emergency MedicineAuthor Type: PhysicianType: ED Provider NotesFiled: 10/24/2017 6:35 PMNote Text:ED Provider NotePatient Name: Tyrone PettyVenuRN: [id number] DATE: 10/23/17HistoryPatient presents with:Abscess: R thigh, Hx of abscess in the past. unable to visualize duringtriage d/t pt wearing pants. pt describes as large, red, warm to touch.had fever of 101.2F at home, took tylenolHPIMsMaria D Lim is a 32 yo F with PMH of lupus, s/p gastric sleeve, gastriculcer, breast reduction, abdominoplasty, cholecystectomy, presenting with2 painful lower extremity sores, fevers, nausea and vomiting. Since 2016, she has been heaving recurrent lesions that are painful andsometimes get infected. The develop all over her body and take about amonth to usually resolve. They leave a scar behind. Most are about 1-1.5cm in diameter. She developed one on her right medial thigh 1 month agoand two on her left shankar several months ago and they began producingdischarge The draining has stopped, but they are painful with smallamount of erythema surrounding the lesions. She uses betamethasone onsuch lesions to dry them out , which was supposedly prescribed to her byP. She also endorses a fever of 102 on Saturday 10/21 and 101.2 thismorning. States that she took tylenol earlier today after discussion withher mother. She has had nausea with emesis x3, bilious in nature per patient without blood. Of note, she states thatshe has been to about 6-8 different hospital systems for these lesionsover the past year or so, including 2 dermatologists. NO notes arepresent to corroborate this story. Including [facility], which [facility] hospitals she states she visited. [place], but no recent visits were noted regarding these skin lesions. She also says that she had swelling issues with bactrim in the past.PAST MEDICAL HISTORYDiagnosis Date- Chronic pain- Gastric ulcer- LupusAlso had Chiari malformationPAST SURGICAL HISTORYProcedure Laterality Date- ABDOMINAL SURGERY HX Abdominoplasty- BREAST RECONSTRUCTION HX Reduction- CHOLECYSTECTOMY HX- GASTRIC BYPASS HX- SPINE SURGERY HX Laminectomy C1No family history on file.Social HistorySocial History Main Topics- Smoking status: Former Smoker- Smokeless tobacco: Not on file- Alcohol use No- Drug use: No- Sexual activity: Not on fileALLERGIESAllergen Reactions- Amoxicillin Rash- Penicillin RashReview of SystemsConstitutional: Positive for chills and fever.HENT: Positive for congestion. Negative for nosebleeds.Eyes: Negative for visual disturbance.Respiratory: Negative for cough, chest tightness and shortness of breath.Cardiovascular: Positive for leg swelling. Negative for chest pain.Gastrointestinal: Positive for nausea and vomiting. Negative for abdominalpain and blood in stool.Endocrine: Negative for polyuria.Genitourinary: Negative for frequency, hematuria and vaginal bleeding.Musculoskeletal : Negative for myalgias.Skin: Positive for rash.Neurological: Positive for dizziness and light-headedness. Negative forweakness, numbness and headaches.Psychiatric/Be havioral: Positive for agitation. Frustrated that no one seems to be able to figure out what causesthese lesions.Physical ExamBP 130/70 Pulse 92 Temp (Src) 98.6 (Oral) Resp 16 SpO2 100%Physical ExamConstitutional: She is oriented to person, place, and time. She appearswell-developed and well-nourished.HENT:Head : Normocephalic and atraumatic.Eyes: Conjunctivae and EOM are normal. No scleral icterus.Neck: Normal range of motion. Neck supple.Cardiovascular: Normal rate, regular rhythm and normal heart sounds. Examreveals no gallop and no friction rub.No murmur heard.Pulmonary/Chest: Effort normal and breath sounds normal. No respiratorydistress. She has no wheezes. She has no rales.Abdominal: Soft. There is no tenderness.Musculoskelet al: She exhibits edema. She exhibits no deformity.Neurological: She is alert and oriented to person, place, and time.Skin: Skin is warm and dry.Numerous lesions noted all over the skin. These lesions are eiicp4vz-5.5cm. There is one on mich-medial thigh on right and one on leftlateral shankar that have yellow-aleman crusting, but are dry. No lesions areactively draining. No bleeding noted. Some erythema surrounding theselesions. Tender to palpation. No mass was appreciated at sites.Psychiatric: She has a normal mood and affect.Diagnostic TestingED Labs Ordered and Reviewed - No data to displayProceduresED Course / Clinical ImpressionClinical Impressions as of Oct 23 2242Skin infectionLactate: normalBMP: no significant abnormalitiesCBC: no leukocytosisBedside ultrasound was utilized and showed only mild induration on leftshin lesion. None noted on right thigh lesion. No abscess wasvisualized. Nothing to aspirate. Imaging is in the records.MDM / Disposition / PlanReview of old medical records show Limited records available. Seems estrada has history of chiari malformation, polycystic ovaries. States thatseven has been to many hospitals and seen many doctors for these lesions. .Case was discussed with Dr. Posada. Image(s) were ordered and independentlyreviewed by me, findings include Ultrasound at bedside, which did not showabscess or fluid collection that could be aspirated..Abscess, vs soft tissue infection, vs systemic infection considered asdifferential diagnoses. Differential diagnoses were considered lesslikely because of the following reasons Patient has no leukocytosis,normal lactate and normal vital signs during stay, making systemicinfection not likely. No abscess or fluid collection was visualized onpoc ultrasound. . Management decisions include She was able to toleratePO, drank fluids upon arrival and had no vomiting or nausea complaints forduration of stay in ED. Was given prescription for clindamycin andbactroban cream to apply to these two wounds. She was counseled to go toED if these symptoms worsen or she develops new concerning symptoms. .DispositionThe patient was discharged. Counseled patient regarding . As well as theneed for follow-up. Discharged home with verbal and written instructions. They were instructed to return as needed for persistent or worseningsymptoms or any new concerns.SIGNATURE: Long Kiser MD, PGY 1Nichmindi (Res) Margi RQRrlaexup09/20/18 0148Attending NoteI evaluated the patient and personally participated in the ballesteros components. I agree with the resident's findings and plan with the followingrevisions and/or additions: This is a 32-year-old female with chronicskin lesions as above who presents with subjective chills, fatigue, andmalaise. Lab work was reviewed. There are no fevers or white count.Lactate is normal. Bedside ultrasound was performed with: Visible fluidcollection or drainable abscess. The patient was discharged withprescription for clindamycin and instructed to follow with plastics as anoutpatient.Signature: Pavel Posada MDDate: 10/24/2017Time: 6:33 Giovani Posada MD10/24/17 1835 Normal [facility] Metabolic Panelon 08-16-2017 Creatinine 142.27 mg/dL Invalid Interpretation Code [facility] Otheron 08-16-2017 S. pyogenes Ag IA Ql (Unsp spec) Negative Invalid Interpretation Code [facility] Urinalysis specialist review Interp Cristiano (Unsp spec) WNL Invalid Interpretation Code [facility] S. pyogenes Ag IA Ql (Unsp spec) Negative Invalid Interpretation Code [facility] Urinalysis specialist review Interp Cristiano (Unsp spec) WNL Invalid Interpretation Code [facility] 6-Monoacetylmorphine (6-NAS) Confirm mass conc (U) Negative Invalid Interpretation Code 5 [facility] Acetaminophen mass conc Negative Invalid Interpretation Code 5 [facility] Alpha hydroxyalprazolam mass conc 182.0 ng/mL Invalid Interpretation Code 5 [facility] Alprazolam mass conc 107.0 ng/mL Invalid Interpretation Code 5 [facility] Amitriptyline mass conc 865.0 ng/mL Invalid Interpretation Code 10 [facility] Amphetamine mass conc 35614 Invalid Interpretation Code 25 [facility] Butalbital Ql Negative Invalid Interpretation Code >250 [facility] Negative Invalid Interpretation Code 10 [facility] 182 Invalid Interpretation Code 5 [facility] 107 Invalid Interpretation Code 5 [facility] 865 Invalid Interpretation Code 10 [facility] 6[address] Invalid Interpretation Code 25 [facility] 605 Invalid Interpretation Code 10 [facility] 21019 Invalid Interpretation Code 500 [facility] 2186 Invalid Interpretation Code 200 [facility] 83 Invalid Interpretation Code 50 [facility] 5616 Invalid Interpretation Code 25 [facility] 202 Invalid Interpretation Code 10 [facility] 6615 Invalid Interpretation Code 10 [facility] 601 Invalid Interpretation Code 10 [facility] 226404 Invalid Interpretation Code 500 [facility] 0 Invalid Interpretation Code [facility] 5.5 Invalid Interpretation Code [facility] 1.016 Invalid Interpretation Code [facility] 137 Invalid Interpretation Code 5 [facility] 137.0 ng/mL Invalid Interpretation Code 5 [facility] Urinalysison 08-16-2017 HCG.beta subunit ( test) Ql (U) Negative Invalid Interpretation Code [facility] HCG.beta subunit ( test) Ql (U) Negative Invalid Interpretation Code [facility] AEROBIC CULTUREon 06-09-2017 AEROBIC CULTURE SPECIMEN NUMBER: [id number] [facility] Comment on above: Result Comment: AERO BIC CULTURE REPORT STATUS: FINAL SITE/TYPE: RIGHT PALM STAIN RESULT(S): SMALL AMOUNT CELLULAR DEBRIS NO ORGANISMS SEEN CURRENT ANTIBIOTIC(S):NOT STATED CULTURE RESULT(S): NORMAL SKIN ZENY PRESENT VIRAL CULTURE, NON-RESPIRATO Jordi 06-09-2017 VIRAL CULTURE, NON-RESPIRATORY SEE NOTE Normal NEGATIVE [facility] Comment on above: Result Comment: Cult ure negativePerformed by [facility],[address] [place] [address] kkx.Disconnect, Cezar Ledbetter MD, Lab. Director EFFECTIVE 04/18/2017 CLINICAL CHEMISTRY PLATFORM CHANGES IN MAIN LABORATORY ARE ASSOCIATED WITH REFERENCE RANGE CHANGES FOR A NUMBER OF ANALYTES. PLEASE REVIEW REFERENCE INTERVALS CAREFULLY P [facility] [address] [place], [place] [address]Laboratory Director: Nnamdi Castro M.D.CLIA No. [id number] CAP Accreditation No. [id number] SURG. PATHOLOGY REPORTon SURGICAL PATHOLOGY REPORT [facility] Comment on above: Result Comment: DIAG NOSISRIGHT PALM, SKIN BIOPSY:STRATUM CORNEUM/KERATINACEOUS CRUSTNON-DIAGNOSTIC [id number]/05/31/2017 Electronically Signed Out by Renetta Partida M.D.NATURE OF SPECIMENRight palmCLINICAL FINDINGSUnroofing of persistent hand ulcersGROSS DESCRIPTIONThe container is labeled Tyrone Lim, Rt palm . Received informalin is a aleman unoriented ellipse of tissue measuring 0.6 x 0.3 x0.1 cm. The fragment is trisected. One cassette. nsmgkar/05/30/2017MICROSCOPIC DESCRIPTIONThe specimen consists entirely of overlying stratumcorneum/parakeratotic crust. Skin (epidermis and dermis) is notpresent. The specimen is non-diagnostic. EFFECTIVE 04/18/2017 CLINICAL CHEMISTRY PLATFORM CHANGES IN MAIN LABORATORY ARE ASSOCIATED WITH REFERENCE RANGE CHANGES FOR A NUMBER OF ANALYTES. PLEASE REVIEW REFERENCE INTERVALS CAREFULLY P [facility]. [address] [place] [id number] Director: Nnamdi Castro M.D.CLIA No. [id number] CAP Accreditation No. [id number] AEROBIC CULTUREon 02-22-2017 AEROBIC CULTURE SPECIMEN NUMBER: [id number] [facility] Comment on above: Result Comment: AERO BIC CULTURE REPORT STATUS: FINAL SITE/TYPE: GROIN STAIN RESULT(S): MODERATE AMOUNT PROTEINACEOUS MATERIAL SMALL AMOUNT SQUAMOUS EPITHELIAL CELLS NO ORGANISMS SEEN CURRENT ANTIBIOTIC(S):NOT STATED CULTURE RESULT(S): NORMAL SKIN ZENY PRESENT NO NEISSERIA GONORRHOEAE ISOLATEDPathology [facility]. [address] [place] [id number] Director: Jacoby Olson M.D.CLIA No. [id number] CAP Accreditation No. [id number] Urinalysison 02-22-2017 HCG.beta subunit ( test) Ql (U) Negative Invalid Interpretation Code [facility] HCG.beta subunit ( test) Ql (U) Negative Invalid Interpretation Code [facility] Metabolic Panelon 01-06-2017 Hemoglobin A1c/Hemoglobin.total mass fraction (Bld) 5.20 % Invalid Interpretation Code < 7 [facility] Hemoglobin A1c/Hemoglobin.total mass fraction (Bld) 5.20 % Invalid Interpretation Code < 7 [facility] Otheron 01-06-2017 2 Invalid Interpretation Code [facility] 2 Invalid Interpretation Code [facility] Vital Signs Date Time Vital Sign Value Performing Clinician Facility 06-15-2023 16:37-0400 Diastolic blood pressure 72 mm[Hg] 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 SECRETARYToño WalshBerenice Lazara Work Phone: [facility] 06-15-2023 16:37-0400 Heart rate 73 /min 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 SECRETARY Berenice Lazara Work Phone: [facility] 06-15-2023 16:37-0400 Respiratory rate 16 /min 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 SECRETARYToño WalshBerenice Lazara Work Phone: [facility] 06-15-2023 16:37-0400 SaO2% (BldA) [Mass fraction] 100 % 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 SECRETARY Berenice Lazara Work Phone: [facility] 06-15-2023 16:37-0400 Systolic blood pressure 109 mm[Hg] GENOVEVA Walshnifer Lazara Work Phone: [facility] 06-15-2023 14:03-0400 Inhaled oxygen flow rate 2 L/min 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 SECRETARY Berenice Lazara Work Phone: [facility] 06-15-2023 11:36-0400 Body height 180.34 cm 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 SECRETARY Berenice Lazara Work Phone: [facility] 06-15-2023 11:36-0400 Body temperature 98 [degF] 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 SECRETARYToño WalshBerenice Lazara Work Phone: [facility] 06-15-2023 11:36-0400 Body weight 103.87 kg 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 SECRETARYToño WalshBerenice Lazara Work Phone: [facility] 05-31-2023 13:57-0400 Body height 182.9 cm [facility] 05-31-2023 13:57-0400 Body mass index (BMI) [Ratio] 26.18 kg/m2 Renetta ROJAS Work Phone: [facility] 05-31-2023 13:57-0400 Body weight 87.54 kg Renetta Elizalde PA Work Phone: [facility] 05-31-2023 13:57-0400 Diastolic blood pressure 87 mm[Hg] Renetta Elizalde PA Work Phone: [facility] 05-31-2023 13:57-0400 Heart rate 104 /min Renetta Hernandezenberg PA Work Phone: [facility] 05-31-2023 13:57-0400 Respiratory rate 18 /min Renetta Hernandezenberg PA Work Phone: [facility] 05-31-2023 13:57-0400 SaO2% (BldA) [Mass fraction] 99 % Renetta Hernandezedil PA Work Phone: [facility] 05-31-2023 13:57-0400 Systolic blood pressure 131 mm[Hg] Renetta Hernandezedil PA Work Phone: [facility] 05-04-2023 11:44-0500 Body height 182.9 cm Jaswant Verhoff PA-C Work Phone: [facility] 05-04-2023 11:44-0500 Body mass index (BMI) [Ratio] 28.62 kg/m2 Jaswant Verhoff PA-C Work Phone: [facility] 05-04-2023 11:44-0500 Body weight 95.71 kg Jaswant Verhoff PA-C Work Phone: [facility] 05-04-2023 11:44-0500 Diastolic blood pressure 103 mm[Hg] Jaswant [facility]hoff PA-C [facility] 05-04-2023 11:44-0500 Heart rate 95 /min Jaswant Verhoff PA-C Work Phone: [facility] 05-04-2023 11:44-0500 Respiratory rate 16 /min Jaswant Verhoff PA-C Work Phone: [facility] 05-04-2023 11:44-0500 SaO2% (BldA) [Mass fraction] 100 % Jaswant Maria Gkevinff PA-C Work Phone: [facility] 05-04-2023 11:44-0500 Systolic blood pressure 145 mm[Hg] Jaswant Maria Gkevinff PA-C Work Phone: [facility] 03-21-2023 13:30-0500 Body height 188.59 cm Berenice Haile Other [facility] 03-21-2023 13:30-0500 Body mass index (BMI) [Ratio] 27.16 kg/m2 Berenice Haile Other [address] [facility] [employer] Other 03-21-2023 13:30-0500 Body weight 96.62 kg Berenice Haile Other [address] [facility] [employer] Other 03-21-2023 13:30-0500 Body weight 96.61 kg [facility] 03-21-2023 13:30-0500 Diastolic blood pressure 80 mm[Hg] Berenice Haile Other [facility] 03-21-2023 13:30-0500 SaO2% (BldA) [Mass fraction] 100 % Berenice Haile Other [employer] Other 03-21-2023 13:30-0500 Systolic blood pressure 130 mm[Hg] Berenice Haile Other [facility] 02-23-2023 13:49-0500 Diastolic blood pressure 85 mm[Hg] GENOVEVA Haile Work Phone: [facility] 02-23-2023 13:49-0500 Heart rate 91 /min 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 SECRETARYToño Haile Work Phone: [facility] 02-23-2023 13:49-0500 Respiratory rate 16 /min 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 SECRETARYToño Haile Work Phone: [facility] 02-23-2023 13:49-0500 SaO2% (BldA) [Mass fraction] 100 % 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 SECRETARYToño Haile Work Phone: [facility] 02-23-2023 13:49-0500 Systolic blood pressure 128 mm[Hg] 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 SECRETARYToño Haile Work Phone: [facility] 02-23-2023 13:41-0500 Body weight 85.72 kg 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 SECRETARYToño Haile Work Phone: [facility] 12-13-2022 14:40-0400 Body height 188.59 cm Ladarius Pitts Other [employer] Other 12-13-2022 14:40-0400 Body mass index (BMI) [Ratio] 27.67 kg/m2 Ladarius Pitts Other [employer] Other 12-13-2022 14:40-0400 Body weight 98.43 kg Ladarius Pitts Other [employer] Other 12-13-2022 14:40-0400 Diastolic blood pressure 60 mm[Hg] Ladarius Pitts Other [employer] Other 12-13-2022 14:40-0400 Systolic blood pressure 109 mm[Hg] Ladarius Pitts Other [employer] Other 09-22-2022 14:30-0400 Body height 188.59 cm Berenice Haile Other [employer] Other 09-22-2022 14:30-0400 Body mass index (BMI) [Ratio] 27.67 kg/m2 Berenice Howellsheela Other [employer] Other 09-22-2022 14:30-0400 Body weight 98.43 kg Berenice Velazquezcasey Other [employer] Other 09-22-2022 14:30-0400 Diastolic blood pressure 70 mm[Hg] Berenice Leslymaryurisheela Other [employer] Other 09-22-2022 14:30-0400 Systolic blood pressure 118 mm[Hg] Berenice Howellsheela Other [employer] Other 01-19-2022 16:10-0500 Body height 188.59 cm Liz Billingsley Other [employer] Other 01-19-2022 16:10-0500 Body mass index (BMI) [Ratio] 23.72 kg/m2 Liz Billingsley Other [employer] Other 01-19-2022 16:10-0500 Body temperature 98.1 [degF] Liz Billingsley Other [employer] Other 01-19-2022 16:10-0500 Body weight 84.37 kg Liz Billingsley Other [employer] Other 01-19-2022 16:10-0500 Diastolic blood pressure 83 mm[Hg] Liz Billingsley Other [employer] Other 01-19-2022 16:10-0500 Respiratory rate 18 /min Liz Billingsley Other [employer] Other 01-19-2022 16:10-0500 SaO2% (BldA) [Mass fraction] 96 % Liz Billingsley Other [employer] Other 01-19-2022 16:10-0500 Systolic blood pressure 128 mm[Hg] Liz Billingsley Other [employer] Other 03-03-2021 16:00-0500 Body height 188.59 cm Agus Cassy Other [employer] Other 03-03-2021 16:00-0500 Body mass index (BMI) [Ratio] 25.12 kg/m2 Agus Cassy Other [employer] Other 03-03-2021 16:00-0500 Body weight 89.36 kg Agus Cassy Other [employer] Other 03-03-2021 16:00-0500 Diastolic blood pressure 72 mm[Hg] Agus Cassy Other [employer] Other 03-03-2021 16:00-0500 Systolic blood pressure 100 mm[Hg] Agus Cassy Other [employer] Other 12-27-2020 12:33-0400 Diastolic blood pressure 76 mm[Hg] Sai Hernandez MD Work Phone: [employer] Work Phone: 12-27-2020 12:33-0400 Heart rate 73 /min Sai Hernandez MD Work Phone: [employer] Work Phone: 12-27-2020 12:33-0400 Respiratory rate 14 /min Sai Hernandez MD Work Phone: [employer] Work Phone: 12-27-2020 12:33-0400 Systolic blood pressure 121 mm[Hg] Sai Hernandez MD Work Phone: [employer] Work Phone: 12-27-2020 08:22-0400 SaO2% (BldA) [Mass fraction] 98 % Sai Hernandez MD Work Phone: [employer] Work Phone: 12-27-2020 08:20-0400 Body temperature 97.59 [degF] Sai Hernandez MD Work Phone: [employer] Work Phone: 07-10-2020 15:40-0400 Body height 181.61 cm Rosana Alaniz CNP Work Phone: [facility] Work Phone: 07-10-2020 15:40-0400 Body mass index (BMI) [Ratio] 31.4 kg/m2 Rosana Alaniz CNP Work Phone: [facility] Work Phone: 07-10-2020 15:40-0400 Body surface area Derived from formula 2.24 m2 Rosana Alaniz CNP Work Phone: [facility] Work Phone: 07-10-2020 15:40-0400 Body temperature 95.8 [degF] Rosana Alaniz CNP Work Phone: [facility] Work Phone: 07-10-2020 15:40-0400 Body weight 103.51 kg Rosana Alaniz CNP Work Phone: [facility] Work Phone: 07-10-2020 15:40-0400 Diastolic blood pressure 68 mm[Hg] Rosanaray Alaniz CNP Work Phone: [facility] Work Phone: 07-10-2020 15:40-0400 Heart rate 88 /min Rosana Alaniz CNP Work Phone: [facility] Work Phone: 07-10-2020 15:40-0400 Respiratory rate 18 /min oRsana Alaniz CNP Work Phone: [facility] Work Phone: 07-10-2020 15:40-0400 SaO2% (BldA) [Mass fraction] 99 % Rosana Alaniz CNP Work Phone: [facility] Work Phone: 07-10-2020 15:40-0400 Systolic blood pressure 98 mm[Hg] Rosana Alaniz CNP Work Phone: [facility] Work Phone: 03-13-2020 11:26-0500 BMI (Body Mass Index) 33.7 kg/m2 [facility] Work Phone: 03-13-2020 11:26-0500 Body weight 111.13 kg [facility] Work Phone: 03-13-2020 11:26-0500 BSA (Body Surface Area) 2.31 m2 [facility] Work Phone: 03-13-2020 11:26-0500 Height 181.61 cm [facility] Work Phone: 05-24-2019 13:37-0400 BP Diastolic 74 mm[Hg] [facility] Work Phone: 05-24-2019 13:37-0400 BP Systolic 110 mm[Hg] [facility] Work Phone: 05-24-2019 13:27-0400 BMI (Body Mass Index) 33.7 kg/m2 [facility] Work Phone: 05-24-2019 13:27-0400 Body Temperature 96.5 [degF] [facility] Work Phone: 05-24-2019 13:27-0400 Body weight 111.13 kg [facility] Work Phone: 05-24-2019 13:27-0400 BSA (Body Surface Area) 2.31 m2 [facility] Work Phone: 05-24-2019 13:27-0400 Height 181.61 cm [facility] Work Phone: 03-08-2019 13:42-0500 BMI (Body Mass Index) 32.4 kg/m2 [facility] Work Phone: 03-08-2019 13:42-0500 Body weight 106.78 kg [facility] Work Phone: 03-08-2019 13:42-0500 BP Diastolic 78 mm[Hg] [facility] Work Phone: 03-08-2019 13:42-0500 BP Systolic 90 mm[Hg] [facility] Work Phone: 03-08-2019 13:42-0500 BSA (Body Surface Area) 2.27 m2 [facility] Work Phone: 03-08-2019 13:42-0500 Height 181.61 cm [facility] Work Phone: 03-08-2019 13:42-0500 Pulse (Heart Rate) 89 /min [facility] Work Phone: 03-08-2019 13:42-0500 Pulse Oximetry 98 % [facility] Work Phone: 02-20-2019 13:50-0500 BMI (Body Mass Index) 34.5 kg/m2 [facility] Work Phone: 02-20-2019 13:50-0500 Body Temperature 99.1 [degF] [facility] Work Phone: 02-20-2019 13:50-0500 Body weight 113.94 kg [facility] Work Phone: 02-20-2019 13:50-0500 BP Diastolic 70 mm[Hg] [facility] Work Phone: 02-20-2019 13:50-0500 BP Systolic 110 mm[Hg] [facility] Work Phone: 02-20-2019 13:50-0500 BSA (Body Surface Area) 2.34 m2 [facility] Work Phone: 02-20-2019 13:50-0500 Height 181.61 cm [facility] Work Phone: 02-20-2019 13:50-0500 Pulse (Heart Rate) 99 /min [facility] Work Phone: 02-20-2019 13:50-0500 Pulse Oximetry 100 % [facility] Work Phone: 02-20-2019 13:50-0500 Respiratory Rate 18 /min [facility] Work Phone: 01-29-2019 15:45-0500 BP Diastolic 59 mm[Hg] [facility] , [place] 01-29-2019 15:45-0500 BP Systolic 94 mm[Hg] [facility] , [place] 01-29-2019 15:45-0500 Pulse (Heart Rate) 69 /min [facility], [place] 01-29-2019 15:45-0500 Pulse Oximetry 98 % [facility] , [place] 01-29-2019 15:45-0500 Respiratory Rate 13 /min [facility] [place] 01-29-2019 12:25-0500 BMI (Body Mass Index) 29.03 kg/m2 Waylon Montoya [facility], [place] 01-29-2019 12:25-0500 Body Temperature 97.39 [degF] Waylon Montoya [facility], [place] 01-29-2019 12:25-0500 Body weight 99.79 kg Waylon Montoya [facility] , [place] 01-29-2019 12:25-0500 Height 185.4 cm Waylon Montoya [facility] , [place] 2019 14:08-0500 Body Temperature 98.1 [degF] [facility], [place] 2019 14:08-0500 BP Diastolic 86 mm[Hg] [facility] , [place] 2019 14:08-0500 BP Systolic 115 mm[Hg] [facility] [place] [facility] 14:08-0500 Pulse (Heart Rate) 95 /[facility] [place] [facility] 14:08-0500 Pulse Oximetry 99 % [facility] [place] 2019 14:08-0500 Respiratory Rate 16 /min [facility], [place] 01-04-2019 08:20-0400 BMI (Body Mass Index) 31.8 kg/m2 [facility] Work Phone: 01-04-2019 08:20-0400 Body Temperature 96.1 [degF] [facility] Work Phone: 01-04-2019 08:20-0400 Body weight 104.78 kg [facility] Work Phone: 01-04-2019 08:20-0400 BP Diastolic 80 mm[Hg] [facility] Work Phone: 01-04-2019 08:20-0400 BP Systolic 106 mm[Hg] [facility] Work Phone: 01-04-2019 08:20-0400 BSA (Body Surface Area) 2.25 m2 [facility] Work Phone: 01-04-2019 08:20-0400 Height 181.61 cm [facility] Work Phone: 01-04-2019 08:20-0400 Pulse (Heart Rate) 69 /min [facility] Work Phone: 01-04-2019 08:20-0400 Pulse Oximetry 98 % [facility] Work Phone: 01-04-2019 08:20-0400 Respiratory Rate 18 /min [facility] Work Phone: 01-03-2019 18:41-0400 BP Diastolic 74 mm[Hg] [facility] [place] 01-03-2019 18:41-0400 BP Systolic 90 mm[Hg] Jean Marie Hurley [facility], [place] 01-03-2019 18:40-0400 Pulse Oximetry 95 % [facility] [place] 01-03-2019 13:42-0400 BMI (Body Mass Index) 31.33 kg/m2 Jean Marie Hurley [facility], [place] 01-03-2019 13:42-0400 Body Temperature 98.01 [degF] Jean Marie Calhounpatrick [facility], [place] 01-03-2019 13:42-0400 Body weight 104.[address] [facility], [place] 01-03-2019 13:42-0400 Pulse (Heart Rate) 71 /min Jean Marie Nazario [facility], [place] 01-03-2019 13:42-0400 Respiratory Rate 16 /min [facility] [place] 11-20-2018 11:37-0400 BMI (Body Mass Index) 34.8 kg/m2 [facility] Work Phone: 11-20-2018 11:37-0400 Body Temperature 95.4 [degF] [facility] Work Phone: 11-20-2018 11:37-0400 Body weight 114.94 kg [facility] Work Phone: 11-20-2018 11:37-0400 BP Diastolic 80 mm[Hg] [facility] Work Phone: 11-20-2018 11:37-0400 BP Systolic 104 mm[Hg] [facility] Work Phone: 11-20-2018 11:37-0400 BSA (Body Surface Area) 2.34 m2 [facility] Work Phone: 11-20-2018 11:37-0400 Height 181.61 cm [facility] Work Phone: 11-20-2018 11:37-0400 Pulse (Heart Rate) 95 /min [facility] Work Phone: 11-20-2018 11:37-0400 Pulse Oximetry 98 % [facility] Work Phone: 11-20-2018 11:37-0400 Respiratory Rate 18 /min [facility] Work Phone: 11-14-2018 16:21-0400 BMI (Body Mass Index) 34.18 kg/m2 Marco [facility] [place] 11-14-2018 16:21-0400 Body Temperature 99.19 [degF] Marco A [facility]eeksese [facility] [place] 11-14-2018 16:21-0400 Body weight 114.31 kg [facility] [place] 11-14-2018 16:21-0400 BP Diastolic 63 mm[Hg] [facility] [place] 11-14-2018 16:21-0400 BP Systolic 108 mm[Hg] [facility] , [place] 11-14-2018 16:21-0400 Pulse (Heart Rate) 87 /min Marco A Nazario [facility], [place] 11-14-2018 16:21-0400 Pulse Oximetry 99 % Marco A Nazario [facility] , [place] 11-14-2018 16:21-0400 Respiratory Rate 19 /min Marco A Nazario [facility], [place] 10-15-2018 09:11-0400 BMI (Body Mass Index) 30.11 kg/m2 Jennifer [facility], [place] 10-15-2018 09:11-0400 Body Temperature 97.5 [degF] Jennifer [facility], [place] 10-15-2018 09:11-0400 Body weight 100.7 kg Jennifer [facility] , [place] 10-15-2018 09:11-0400 BP Diastolic 80 mm[Hg[facility] [place] 10-15-2018 09:11-0400 BP Systolic 122 mm[Hg] [facility] [place] 10-15-2018 09:11-0400 Height 182.9 [facility] [place] 10-15-2018 09:11-0400 Pulse (Heart Rate) 91 /min Jennifer [facility], [place] 10-15-2018 09:11-0400 Pulse Oximetry 100 % Jennifer [facility] , [place] 10-15-2018 09:11-0400 Respiratory Rate 16 /min Jennifer [facility], [place] 06-15-2018 15:01-0400 Pulse (Heart Rate) 103 /min [facility] Work Phone: 06-15-2018 15:01-0400 Pulse Oximetry 98 % [facility] Work Phone: 06-15-2018 14:58-0400 BMI (Body Mass Index) 33.7 kg/m2 [facility] Work Phone: 06-15-2018 14:58-0400 Body Temperature 97.1 [degF] [facility] Work Phone: 06-15-2018 14:58-0400 Body weight 111.31 kg [facility] Work Phone: 06-15-2018 14:58-0400 BP Diastolic 86 mm[Hg] [facility] Work Phone: 06-15-2018 14:58-0400 BP Systolic 126 mm[Hg] [facility] Work Phone: 06-15-2018 14:58-0400 BSA (Body Surface Area) 2.31 m2 [facility] Work Phone: 06-15-2018 14:58-0400 Height 181.61 cm [facility] Work Phone: 06-15-2018 14:58-0400 Pulse (Heart Rate) 18 /min [facility] Work Phone: 06-15-2018 14:58-0400 Respiratory Rate 18 /min [facility] Work Phone: 02-16-2018 13:28-0500 BMI (Body Mass Index) 33.99 kg/m2 [facility] 02-16-2018 13:28-0500 Body Temperature 98.3 [degF] [facility] 02-16-2018 13:28-0500 BP Diastolic 65 mm[Hg] [facility] 02-16-2018 13:28-0500 BP Systolic 92 mm[Hg] [facility] 02-16-2018 13:28-0500 BSA (Body Surface Area) 2.38 m2 [facility] 02-16-2018 13:28-0500 Height 181.61 cm [facility] 02-16-2018 13:28-0500 Pulse (Heart Rate) 110 /min Rosana Katty [facility] 02-16-2018 13:28-0500 Pulse Oximetry 99 % [facility] 02-16-2018 13:28-0500 Respiratory Rate 18 /min [facility] 02-16-2018 13:28-0500 Weight 112.12 kg [facility] 02-16-2018 11:28-0500 BMI (Body Mass Index) 34 kg/m2 [facility] Work Phone: 02-16-2018 11:28-0500 Body Temperature 98.3 [degF] [facility] Work Phone: 02-16-2018 11:28-0500 Body weight 112.04 kg [facility] Work Phone: 02-16-2018 11:28-0500 Body weight 112.12 kg [facility] Work Phone: 02-16-2018 11:28-0500 BP Diastolic 65 mm[Hg] [facility] Work Phone: 02-16-2018 11:28-0500 BP Systolic 92 mm[Hg] [facility] Work Phone: 02-16-2018 11:28-0500 BSA (Body Surface Area) 2.32 m2 [facility] Work Phone: 02-16-2018 11:28-0500 Height 181.61 cm [facility] Work Phone: 02-16-2018 11:28-0500 Pulse (Heart Rate) 110 /min [facility] Work Phone: 02-16-2018 11:28-0500 Respiratory Rate 18 /min [facility] Work Phone: 11-24-2017 14:14-0400 BMI (Body Mass Index) 32.32 kg/m2 [facility] 11-24-2017 14:14-0400 Body Temperature 97.4 [degF] [facility] 11-24-2017 14:14-0400 BP Diastolic 80 mm[Hg] [facility] 11-24-2017 14:14-0400 BP Systolic 126 mm[Hg] [facility] 11-24-2017 14:14-0400 BSA (Body Surface Area) 2.32 m2 [facility] 11-24-2017 14:14-0400 Height 181.61 cm [facility] 11-24-2017 14:14-0400 Pulse (Heart Rate) 104 /min [facility] 11-24-2017 14:14-0400 Pulse Oximetry 97 % [facility] 11-24-2017 14:14-0400 Respiratory Rate 20 /min [facility] 11-24-2017 14:14-0400 Weight 106.6 kg [facility] 11-24-2017 13:14-0400 BMI (Body Mass Index) 32.32 kg/m2 [facility] 11-24-2017 13:14-0400 Body Temperature 97.4 [degF] [facility] 11-24-2017 13:14-0400 BP Diastolic 80 mm[Hg] [facility] 11-24-2017 13:14-0400 BP Systolic 126 mm[Hg] [facility] 11-24-2017 13:14-0400 BSA (Body Surface Area) 2.32 m2 [facility] 11-24-2017 13:14-0400 Height 181.61 cm [facility] 11-24-2017 13:14-0400 Pulse (Heart Rate) 104 /min [facility] 11-24-2017 13:14-0400 Pulse Oximetry 97 % [facility] 11-24-2017 13:14-0400 Respiratory Rate 20 /min [facility] 11-24-2017 13:14-0400 Weight 106.6 kg [facility] 11-24-2017 11:14-0400 BMI (Body Mass Index) 32.3 kg/m2 [facility] Work Phone: 11-24-2017 11:14-0400 Body Temperature 97.4 [degF] [facility] Work Phone: 11-24-2017 11:14-0400 Body weight 106.6 kg [facility] Work Phone: 11-24-2017 11:14-0400 BP Diastolic 80 mm[Hg] [facility] Work Phone: 11-24-2017 11:14-0400 BP Systolic 126 mm[Hg] [facility] Work Phone: 11-24-2017 11:14-0400 BSA (Body Surface Area) 2.27 m2 [facility] Work Phone: 11-24-2017 11:14-0400 Height 181.61 cm [facility] Work Phone: 11-24-2017 11:14-0400 Pulse (Heart Rate) 104 /min [facility] Work Phone: 11-24-2017 11:14-0400 Respiratory Rate 20 /min [facility] Work Phone: 08-16-2017 14:15-0400 BMI (Body Mass Index) 30.7 kg/m2 [facility] 08-16-2017 14:15-0400 Body Temperature 97.2 [degF] [facility] 08-16-2017 14:15-0400 BP Diastolic 72 mm[Hg] [facility] 08-16-2017 14:15-0400 BP Systolic 118 mm[Hg] [facility] 08-16-2017 14:15-0400 BSA (Body Surface Area) 2.26 m2 [facility] 08-16-2017 14:15-0400 Height 181.61 cm [facility] 08-16-2017 14:15-0400 Pulse (Heart Rate) 88 /min [facility] 08-16-2017 14:15-0400 Pulse Oximetry 100 % [facility] 08-16-2017 14:15-0400 Respiratory Rate 18 /min [facility] 08-16-2017 14:15-0400 Weight 101.27 kg [facility] 08-16-2017 13:15-0400 BMI (Body Mass Index) 30.7 kg/m2 [facility] 08-16-2017 13:15-0400 Body Temperature 97.2 [degF] [facility] 08-16-2017 13:15-0400 BP Diastolic 72 mm[Hg] [facility] 08-16-2017 13:15-0400 BP Systolic 118 mm[Hg] [facility] 08-16-2017 13:15-0400 BSA (Body Surface Area) 2.26 m2 [facility] 08-16-2017 13:15-0400 Height 181.61 cm [facility] 08-16-2017 13:15-0400 Pulse (Heart Rate) 88 /min [facility] 08-16-2017 13:15-0400 Pulse Oximetry 100 % [facility] 08-16-2017 13:15-0400 Respiratory Rate 18 /min [facility] 08-16-2017 13:15-0400 Weight 101.27 kg [facility] 05-26-2017 14:14-0400 BMI (Body Mass Index) 29.57 kg/m2 [facility] 05-26-2017 14:14-0400 Body Temperature 97.5 [degF] [facility] 05-26-2017 14:14-0400 BP Diastolic 72 mm[Hg] [facility] 05-26-2017 14:14-0400 BP Systolic 118 mm[Hg] [facility] 05-26-2017 14:14-0400 BSA (Body Surface Area) 2.22 m2 [facility] 05-26-2017 14:14-0400 Height 181.61 cm [facility] 05-26-2017 14:14-0400 Pulse (Heart Rate) 100 /min [facility] 05-26-2017 14:14-0400 Pulse Oximetry 98 % [facility] 05-26-2017 14:14-0400 Respiratory Rate 20 /min [facility] 05-26-2017 14:14-0400 Weight 97.52 kg [facility] 05-26-2017 13:14-0400 BMI (Body Mass Index) 29.57 kg/m2 [facility] 05-26-2017 13:14-0400 Body Temperature 97.5 [degF] [facility] 05-26-2017 13:14-0400 BP Diastolic 72 mm[Hg] [facility] 05-26-2017 13:14-0400 BP Systolic 118 mm[Hg] [facility] 05-26-2017 13:14-0400 BSA (Body Surface Area) 2.22 m2 [facility] 05-26-2017 13:14-0400 Height 181.61 cm [facility] 05-26-2017 13:14-0400 Pulse (Heart Rate) 100 /min [facility] 05-26-2017 13:14-0400 Pulse Oximetry 98 % [facility] 05-26-2017 13:14-0400 Respiratory Rate 20 /min [facility] 05-26-2017 13:14-0400 Weight 97.52 kg [facility] 03-29-2017 15:24-0500 BMI (Body Mass Index) 27.69 kg/m2 [facility] 03-29-2017 15:24-0500 Body Temperature 97.5 [degF] [facility] 03-29-2017 15:24-0500 BP Diastolic 80 mm[Hg] [facility] 03-29-2017 15:24-0500 BP Systolic 109 mm[Hg] [facility] 03-29-2017 15:24-0500 BSA (Body Surface Area) 2.15 m2 [facility] 03-29-2017 15:24-0500 Height 181.61 cm [facility] 03-29-2017 15:24-0500 Pulse (Heart Rate) 87 /min [facility] 03-29-2017 15:24-0500 Pulse Oximetry 98 % [facility] 03-29-2017 15:24-0500 Respiratory Rate 18 /min [facility] 03-29-2017 15:24-0500 Weight 91.32 kg [facility] 03-29-2017 14:24-0500 BMI (Body Mass Index) 27.69 kg/m2 [facility] 03-29-2017 14:24-0500 Body Temperature 97.5 [degF] [facility] 03-29-2017 14:24-0500 BP Diastolic 80 mm[Hg] [facility] 03-29-2017 14:24-0500 BP Systolic 109 mm[Hg] [facility] 03-29-2017 14:24-0500 BSA (Body Surface Area) 2.15 m2 [facility] 03-29-2017 14:24-0500 Height 181.61 cm [facility] 03-29-2017 14:24-0500 Pulse (Heart Rate) 87 /min [facility] 03-29-2017 14:24-0500 Pulse Oximetry 98 % [facility] 03-29-2017 14:24-0500 Respiratory Rate 18 /min [facility] 03-29-2017 14:24-0500 Weight 91.32 kg [facility] 02-22-2017 17:03-0500 BMI (Body Mass Index) 26.41 kg/m2 [facility] 02-22-2017 17:03-0500 Body Temperature 98 [degF] [facility] 02-22-2017 17:03-0500 BP Diastolic 87 mm[Hg] [facility] 02-22-2017 17:03-0500 BP Systolic 130 mm[Hg] [facility] 02-22-2017 17:03-0500 BSA (Body Surface Area) 2.1 m2 [facility] 02-22-2017 17:03-0500 Height 181.61 cm [facility] 02-22-2017 17:03-0500 Pulse (Heart Rate) 88 /min [facility] 02-22-2017 17:03-0500 Pulse Oximetry 100 % [facility] 02-22-2017 17:03-0500 Respiratory Rate 20 /min [facility] 02-22-2017 17:03-0500 Weight 87.09 kg [facility] 02-22-2017 16:03-0500 BMI (Body Mass Index) 26.41 kg/m2 [facility] 02-22-2017 16:03-0500 Body Temperature 98 [degF] [facility] 02-22-2017 16:03-0500 BP Diastolic 87 mm[Hg] [facility] 02-22-2017 16:03-0500 BP Systolic 130 mm[Hg] [facility] 02-22-2017 16:03-0500 BSA (Body Surface Area) 2.1 m2 [facility] 02-22-2017 16:03-0500 Height 181.61 cm [facility] 02-22-2017 16:03-0500 Pulse (Heart Rate) 88 /min [facility] 02-22-2017 16:03-0500 Pulse Oximetry 100 % Rosana Katty [facility] 02-22-2017 16:03-0500 Respiratory Rate 20 /min [facility] 02-22-2017 16:03-0500 Weight 87.09 kg [facility] 02-01-2017 16:59-0500 BMI (Body Mass Index) 27.23 kg/m2 [facility] 02-01-2017 16:59-0500 Body Temperature 98.1 [degF] [facility] 02-01-2017 16:59-0500 BP Diastolic 81 mm[Hg] [facility] 02-01-2017 16:59-0500 BP Systolic 132 mm[Hg] [facility] 02-01-2017 16:59-0500 BSA (Body Surface Area) 2.13 m2 [facility] 02-01-2017 16:59-0500 Height 181.61 cm [facility] 02-01-2017 16:59-0500 Pulse (Heart Rate) 83 /min [facility] 02-01-2017 16:59-0500 Pulse Oximetry 94 % [facility] 02-01-2017 16:59-0500 Respiratory Rate 18 /min [facility] 02-01-2017 16:59-0500 Weight 89.81 kg [facility] 02-01-2017 15:59-0500 BMI (Body Mass Index) 27.23 kg/m2 [facility] 02-01-2017 15:59-0500 Body Temperature 98.1 [degF] [facility] 02-01-2017 15:59-0500 BP Diastolic 81 mm[Hg] [facility] 02-01-2017 15:59-0500 BP Systolic 132 mm[Hg] [facility] 02-01-2017 15:59-0500 BSA (Body Surface Area) 2.13 m2 [facility] 02-01-2017 15:59-0500 Height 181.61 cm [facility] 02-01-2017 15:59-0500 Pulse (Heart Rate) 83 /min [facility] 02-01-2017 15:59-0500 Pulse Oximetry 94 % [facility] 02-01-2017 15:59-0500 Respiratory Rate 18 /min [facility] 02-01-2017 15:59-0500 Weight 89.81 kg [facility] 01-06-2017 17:29-0400 BMI (Body Mass Index) 26.41 kg/m2 [facility] 01-06-2017 17:29-0400 Body Temperature 97.9 [degF] [facility] 01-06-2017 17:29-0400 BP Diastolic 81 mm[Hg] [facility] 01-06-2017 17:29-0400 BP Systolic 130 mm[Hg] [facility] 01-06-2017 17:29-0400 BSA (Body Surface Area) 2.1 m2 [facility] 01-06-2017 17:29-0400 Height 181.61 cm [facility] 01-06-2017 17:29-0400 Pulse (Heart Rate) 90 /min [facility] 01-06-2017 17:29-0400 Pulse Oximetry 98 % [facility] 01-06-2017 17:29-0400 Respiratory Rate 18 /min [facility] 01-06-2017 17:29-0400 Weight 87.09 kg [facility] 01-06-2017 16:29-0400 BMI (Body Mass Index) 26.41 kg/m2 [facility] 01-06-2017 16:29-0400 Body Temperature 97.9 [degF] [facility] 01-06-2017 16:29-0400 BP Diastolic 81 mm[Hg] [facility] 01-06-2017 16:29-0400 BP Systolic 130 mm[Hg] [facility] 01-06-2017 16:29-0400 BSA (Body Surface Area) 2.1 m2 [facility] 01-06-2017 16:29-0400 Height 181.61 cm [facility] 01-06-2017 16:29-0400 Pulse (Heart Rate) 90 /min [facility] 01-06-2017 16:29-0400 Pulse Oximetry 98 % [facility] 01-06-2017 16:29-0400 Respiratory Rate 18 /min [facility] 01-06-2017 16:29-0400 Weight 87.09 kg [facility] 12-09-2016 17:31-0400 BMI (Body Mass Index) 26.97 kg/m2 [facility] 12-09-2016 17:31-0400 Body Temperature 99 [degF] [facility] 12-09-2016 17:31-0400 BP Diastolic 62 mm[Hg] [facility] 12-09-2016 17:31-0400 BP Systolic 98 mm[Hg] [facility] 12-09-2016 17:31-0400 BSA (Body Surface Area) 2.12 m2 [facility] 12-09-2016 17:31-0400 Height 181.61 cm [facility] 12-09-2016 17:31-0400 Pulse (Heart Rate) 110 /min [facility] 12-09-2016 17:31-0400 Pulse Oximetry 98 % [facility] 12-09-2016 17:31-0400 Respiratory Rate 18 /min [facility] 12-09-2016 17:31-0400 Weight 88.96 kg [facility] 12-09-2016 16:31-0400 BMI (Body Mass Index) 26.97 kg/m2 [facility] 12-09-2016 16:31-0400 Body Temperature 99 [degF] [facility] 12-09-2016 16:31-0400 BP Diastolic 62 mm[Hg] [facility] 12-09-2016 16:31-0400 BP Systolic 98 mm[Hg] [facility] 12-09-2016 16:31-0400 BSA (Body Surface Area) 2.12 m2 [facility] 12-09-2016 16:31-0400 Height 181.61 cm [facility] 12-09-2016 16:31-0400 Pulse (Heart Rate) 110 /min [facility] 12-09-2016 16:31-0400 Pulse Oximetry 98 % [facility] 12-09-2016 16:31-0400 Respiratory Rate 18 /min [facility] 12-09-2016 16:31-0400 Weight 88.96 kg [facility] Encounters Encounter Date Encounter Type Care Provider Facility Start: 06-15-2023 End: 06-15-2023 Emergency department patient visit Berenice Haile Facility:[facility] Start: 06-15-2023 End: 06-15-2023 Emergency department patient visit GENOVEVA Haile Work Phone: [facility] Work Phone: Start: 06-01-2023 End: 06-02-2023 Emergency department patient visit [facility] Start: 05-31-2023 End: 05-31-2023 ambulatory RENETTA ELIZALDE [facility] Start: 05-31-2023 Refill Gino Nicolas MD Work Phone: [facility] Start: 05-31-2023 End: 05-31-2023 Office outpatient visit 15 minutes Renetta ROJAS Work Phone: [facility] Comment on above: Lumbar radiculopathy (Primary Dx) Start: 05-26-2023 End: 05-26-2023 ambulatory [facility] Work Phone: Start: 05-26-2023 End: 05-26-2023 Patient encounter procedure [facility] Work Phone: Start: 05-14-2023 End: 05-14-2023 ambulatory LAITHDARWIN BECK [facility] Start: 05-13-2023 End: 05-14-2023 ambulatory ANUP [facility] Start: 05-10-2023 Telephone encounter [facility] Start: 05-04-2023 End: 05-04-2023 ambulatory [facility] Start: 05-04-2023 End: 05-04-2023 Office outpatient visit 25 minutes Renetta ROJAS Work Phone: [facility] Comment on above: Lumbar radiculopathy (Primary Dx); Spinal stenosis of lumbar region with neurogenic claudication Start: 04-28-2023 Non-patient / Non-visit [facility] Work Phone: Start: 04-27-2023 Refill Cady Sifuentes CMA [facility] Start: 04-21-2023 Telephone encounter Saida Valiente CMA [facility] Start: 04-19-2023 Non-patient / Non-visit [facility] Physician [facility] Work Phone: Start: 04-18-2023 End: 04-18-2023 ambulatory Berenice Lazara Other [employer] Other Start: 04-18-2023 Telephone encounter Berenice Marsh her [facility] Start: 04-11-2023 Encounter for genera l adult medical examination without abnormal findings JASWANT HUSSEIN [facility] Start: 04-11-2023 End: 04-12-2023 ambulatory BLAKE ANMOL Not Available Start: 04-11-2023 Clinisync Result Encounter Blake Anmol DO Work Phone: [facility] External Department Unsolicited Start: 04-11-2023 External Result Encounter Blake Anmol DO Work Phone: [facility] External Department Unsolicited Start: 04-11-2023 External Result Encounter Blake Anmol DO Work Phone: [facility] External Department Unsolicited Start: 03-30-2023 Orders Only Johana hansen 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-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 INSTITUTION TREASURER Work Phone: [facility] NeuroSurgery Comment on above: Bilateral leg pain ( Primary Dx); Herniated lumbar intervertebral disc; S/P lumbar fusion; Lumbar foraminal stenosis Start: 03-21-2023 End: 03-21-2023 ambulatory Berenice Lazara Other [employer] Other Start: 03-21-2023 Office outpatient vi sit 25 minutes Berenice Lazara [facility] Start: 03-21-2023 End: 03-21-2023 Patient encounter procedure [facility] Work Phone: Start: 03-17-2023 End: 03-17-2023 ambulatory Berenice Lazara Other [employer] Other Start: 03-17-2023 Telephone encounter Berenice Marsh her [facility] Start: 03-16-2023 Orders Only Johana hansen 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 SECRETARY-FINANCIAL INSTITUTION TREASURER Work Phone: [facility] Comment on above: S/P lumbar fusion Start: 02-23-2023 End: 02-23-2023 ambulatory Lola Montgomery Facility:[facility] Start: 02-23-2023 End: 02-23-2023 ambulatory GENOVEVA Haile Work Phone: [facility] Work Phone: Start: 02-23-2023 End: 02-23-2023 Patient encounter procedure GENOVEVA Haile Work Phone: [facility] [place] Work Phone: Start: 01-17-2023 End: 01-17-2023 ambulatory RENETTA PASTOR Not Available Start: 12-22-2022 End: 12-22-2022 ambulatory Ladarius Pitts Other [employer] Other Start: 12-22-2022 Telephone encounter Ladarius Marrero [employer] Start: 12-13-2022 End: 12-13-2022 ambulatory Ladarius Pitts Facility:[facility] Start: 12-13-2022 End: 12-13-2022 Patient encounter procedure PHYSICIAN NO [facility] [place] Work Phone: Start: 12-13-2022 End: 12-13-2022 ambulatory PHYSICIAN NO [facility] Work Phone: Start: 12-13-2022 Office outpatient ne w 30 minutes Ladarius MARTINEZ [facility] Start: 12-06-2022 End: 12-06-2022 ambulatory Berenice Haile Other [employer] Other Start: 12-06-2022 Telephone encounter Berenice cochran [facility] Start: 11-22-2022 End: 11-22-2022 ambulatory Berenice Haile Other [employer] Other Start: 11-22-2022 Telephone encounter Berenice Salma her [employer] Start: 11-02-2022 End: 11-02-2022 ambulatory Berenice Lazara Other [employer] Other Start: 11-02-2022 Telephone encounter Berenice Salma her [employer] Start: 09-22-2022 End: 09-22-2022 Departed Referred 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 SECRETARY Berenice Haile Work Phone: [facility] [place] Work Phone: Start: 09-22-2022 End: 09-22-[address] [facility] Work Phone: Start: 09-22-2022 Office outpatient ne w 30 minutes Berenice Haile [facility] Start: 09-08-2022 End: 09-08-2022 Emergency department patient visit [facility] Start: 05-24-2022 End: 05-24-[address] LESLEY LINDSEY . Facility:[facility] Start: 01-21-2022 End: 01-21-2022 ambulatory IRINA GRISSOM Facility:[facility] Start: 01-19-2022 End: 01-19-2022 ambulatory Liz Billingsley Other [employer] Other Start: 01-19-2022 Office outpatient vi sit 15 minutes Liz Billingsley [facility] Start: 10-08-[address] Arthur MADERA Facili ty:[facility] Start: 08-31-2021 End: 08-31-2021 ambulatory Agus Madera Other [employer] Other Start: 08-31-2021 Telephone encounter Agus Hackett ck [facility] Start: 08-06-2021 End: 08-07-2021 ambulatory FINANCIAL INSTITUTION TREASURER TERE GRISSOM Facility:[facility] Start: 07-01-2021 End: 07-01-2021 ambulatory Agus Madera Other [employer] Other Start: 07-01-2021 Telephone encounter Agus Hackett ck [facility] Start: 03-03-2021 End: 03-03-2021 ambulatory Agus Madera Other [employer] Other Start: 03-03-2021 Office outpatient ne w 45 minutes Agus Madera [facility] Start: 12-27-2020 End: 12-27-2020 Emergency department patient visit Sai Hernandez MD Work Phone: [facility] ED Comment on above: Substance abuse (HCC ) (Primary Dx) Start: 07-10-2020 End: 07-10-2020 [facility]QHC visit, estab pt Li DUARTE Work Phone: [facility] Work Phone: Start: 07-10-2020 End: 07-10-2020 [facility]QHC visit, estab pt Li DUARTE Work Phone: [facility] Work Phone: Start: 07-10-2020 End: 07-10-2020 General Megan Arita CNP Work Phone: [facility] Work Phone: Start: 09-05-2019 End: 09-06-2019 ambulatory ROSANA ALANIZ Facility:[facility] Start: 07-16-2019 End: 07-16-2019 Nursing evaluation of patient and report Susan Em Work Phone: [facility] Work Phone: Start: 07-16-2019 End: 07-16-2019 Patient encounter procedure Rosana Alaniz Work Phone: [facility] Work Phone: Start: 07-16-2019 End: 03-13-2020 Patient encounter procedure Li Sutherland Work Phone: [facility] Work Phone: Start: 07-16-2019 End: 03-13-2020 Telemedicine consultation with patient Rosana Alaniz Work Phone: [facility] Work Phone: Start: 07-04-2019 End: 07-04-2019 Telemedicine consultation with patient Rosana Alaniz Work Phone: [facility] Work Phone: Start: 06-01-2019 End: 06-01-2019 Patient encounter procedure Li Sutherland Work Phone: [facility] Work Phone: Start: 06-01-2019 End: 06-01-2019 Telemedicine consultation with patient Rosana Alaniz Work Phone: [facility] Work Phone: Start: 05-24-2019 End: 05-24-2019 Established patient Rosana Alaniz Work Phone: [facility] Work Phone: Start: 03-08-2019 End: 03-08-2019 ambulatory Rosana Alaniz Work Phone: [facility] Work Phone: Start: 02-20-2019 End: 02-20-2019 Established patient Uday Hansen Work Phone: [facility] Work Phone: Start: 02-20-2019 End: 02-20-2019 Established patient Rosana Alaniz Work Phone: [facility] Work Phone: Start: 02-06-2019 End: 02-06-2019 Patient encounter procedure Rosana Alaniz Work Phone: [facility] Work Phone: Start: 01-29-2019 End: 01-29-2019 Emergency department patient visit ROSANA Joanne KATTY [facility] Start: 01-29-2019 End: 01-29-2019 Emergency department patient visit Waylon Montoya Work Phone: [facility] ED Comment on above: Accidental overdose of heroin, initial encounter (HCC) (Primary Dx) Start: 2019 End: 2019 Emergency department patient visit Sourav Baird Work Phone: [facility] ED Comment on above: Sciatica of left ramin e (Primary Dx); Closed fracture of right foot, initial encounter Start: 01-04-2019 End: 01-04-2019 Established patient IvyNya Lujan Work Phone: [facility] Work Phone: Start: 01-03-2019 End: 01-03-2019 Emergency department patient visit Jean Maire Hurley [facility] ED Comment on above: Herniated interverte bral disc of lumbar spine (Primary Dx); Neuropathy Start: 11-20-2018 End: 11-20-2018 Established patient Rosana Alaniz Work Phone: [facility] Work Phone: Start: 11-14-2018 End: 11-14-2018 Emergency department patient visit Marco A Ro Work Phone: [facility] ED Comment on above: Bilateral lower extr emity edema (Primary Dx); Transaminitis; Impetigo Start: 11-14-2018 End: 11-14-2018 Subsequent hospital visit by physician [facility] Start: 11-14-2018 End: 11-16-2018 Subsequent hospital visit by physician [facility] Comment on above: Pain of left calf Start: 10-26-2018 End: 10-26-2018 Patient encounter procedure Rosana Alaniz Work Phone: [facility] Work Phone: Start: 10-25-2018 End: 10-25-2018 Patient encounter procedure IvyNya Lujan Work Phone: [facility] Work Phone: Start: 10-15-2018 End: 10-15-2018 Emergency department patient visit JENNIFER WHALEY [facility] Start: 10-15-2018 End: 10-15-2018 Emergency department patient visit Jennifer Whaley Work Phone: [facility] ED Comment on above: Injury of left foot, initial encounter (Primary Dx) Start: 08-31-2018 End: 08-31-2018 Patient encounter procedure Rosana Alaniz Work Phone: [facility] Work Phone: Start: 06-15-2018 End: 06-15-2018 Established patient Rosana Alaniz Work Phone: [facility] Work Phone: Start: 06-01-2018 End: 06-01-2018 Patient encounter procedure Rosana Alaniz Work Phone: [facility] Work Phone: Start: 04-24-2018 End: 04-24-2018 Patient encounter procedure Rosana Alaniz Work Phone: [facility] Work Phone: Start: 04-06-2018 End: 04-06-2018 Patient encounter procedure Rosana Alaniz Work Phone: [facility] Work Phone: Start: 02-16-2018 Evaluation and management of established outpatient in office or other outpatient facility Rosana Alaniz [facility] Start: 02-16-2018 End: 02-16-2018 Patient encounter procedure Rosana Alaniz [facility] Work Phone: Start: 02-16-2018 Medical Rosana Alaniz Other [facility] Start: 01-16-2018 Patient encounter OZZIE MCKEON [facility] Start: 11-24-2017 End: 11-24-2017 Patient encounter procedure Rosana Alaniz [facility] Work Phone: Start: 11-24-2017 Laboratory examinati on, unspecified Rosana Alaniz [facility] Start: 11-24-2017 Comprehensive metabo lic panel [facility] Start: 11-24-2017 End: 11-24-2017 Office outpatient visit 15 minutes Rosana Alaniz Other [facility] Start: 11-24-2017 Radex ankle complete minimum 3 views [facility] Start: 11-24-2017 Radex foot complete minimum 3 views [facility] Start: 10-23-2017 End: 10-24-2017 Emergency department patient visit ACHILLES [facility] Start: 08-16-2017 End: 08-16-2017 Office outpatient visit 25 minutes Rosana Alaniz Other [facility] Start: 05-26-2017 Evaluation and management of established outpatient in office or other outpatient facility [facility] Start: 05-26-2017 Antibody herpes smpl x type 1 [facility] Start: 05-26-2017 C-reactive protein h igh sensitivity [facility] Start: 05-26-2017 End: 05-26-2017 Office outpatient visit 25 minutes Rosana Alaniz Other [facility] Start: 05-26-2017 Sedimentation rate r bc automated [facility] Start: 03-29-2017 End: 03-29-2017 Office outpatient visit 15 minutes Rosana Alaniz Other [facility] Start: 02-22-2017 Antibody herpes smpl x type 1 [facility] Start: 02-22-2017 C-reactive protein [facility] Start: 02-22-2017 Comprehensive metabo lic panel [facility] Start: 02-22-2017 Culture bacterial bl ood aerobic w/id isolates [facility] Start: 02-22-2017 End: 02-22-2017 Office outpatient visit 25 minutes Rosana Alaniz Other [facility] Start: 02-22-2017 Sedimentation rate r bc automated [facility] Start: 02-22-2017 Evaluation and management of established outpatient in office or other outpatient facility [facility] Start: 02-01-2017 End: 02-01-2017 Office outpatient visit 15 minutes Rosana Alaniz Other [facility] Start: 02-01-2017 Polysom 6/>yrs sleep 4/> addl lona attnd [facility] Start: 02-01-2017 Polysom 6/>yrs sleep w/cpap 4/> addl lona attnd [facility] Start: 01-06-2017 End: 01-06-2017 Office outpatient visit 15 minutes Rosana Alaniz Other [facility] Start: 12-09-2016 End: 12-09-2016 Office outpatient new 20 minutes Rosana Alaniz Other [facility] Start: 09-15-2016 Ambulatory CHANO FRANKLIN Facility: [facility] Procedures Date Procedure Procedure Detail Performing Clinician Start: 06-15-2023 CT of head without contrast GENOVEVA Haile Work Phone: Start: 06-15-2023 Plain chest X-ray GENOVEVA Haile Work Phone: Start: 04-11-2023 Complete blood count with white cell differential, automated Blake Corea DO Work Phone: Start: 04-11-2023 PAP IG, APT HPV RFX 16/18,45 Blake Anmol DO Work Phone: Start: 02-23-2023 MRI of lumbar spine with contrast GENOVEVA Haile Work Phone: Start: 02-23-2023 XR pre/post mri xray GENOVEVA Haile Work Phone: Start: 09-22-2022 Aerobic microbial culture PHYSICIAN NO F AMILY Start: 09-22-2022 Anaerobic microbial culture PHYSICIAN NO FAMILY Start: 09-22-2022 Investigation of transfusion reaction PHYSICIAN NO FAMILY Start: 05-24-2022 Microscopic observation [Identifier] in Cervix by Cyto stain Johana Hansen 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 SECRETARY-FINANCIAL INSTITUTION TREASURER Work Phone: Start: 12-27-2020 Blood gases any combination ph pco2 po2 co2 hco3 Sai Hernandez MD Work Phone: Start: 12-27-2020 Ecg routine ecg w/least 12 lds w/i&r Sai Hernandez MD Work Phone: Start: 12-27-2020 GLUCOSE, WHOLE BLOOD Sai Hernandez MD Work Phone: Start: 12-27-2020 Assay of acetaminophen Sai Hernandez MD Work Phone: Start: 12-27-2020 Assay of ethanol Sai Hernandez MD Work Phone: Start: 12-27-2020 Assay of salicylate Sai Hernandez MD Work Phone: Start: 12-27-2020 Gonadotropin chorionic quantitative Sai Hernandez MD Work Phone: Start: 12-27-2020 Drug screen class list a Sai Tolbert i, MD Work Phone: Start: 12-27-2020 Urnls dip stick/tablet rgnt auto w/o microscopy Sai Hernandez MD Work Phone: Start: 07-10-2020 Gluc bld gluc mntr dev cleared fda spec home use Rosana Alaniz CNP Work Phone: Start: 07-10-2020 Most recent diastolic blood pressure < 80 mm hg Rosana Alaniz FINANCIAL INSTITUTION TREASURER Work Phone: Start: 07-10-2020 Most recent systolic blood pressure <130 mm hg Rosana Alaniz FINANCIAL INSTITUTION TREASURER Work Phone: Start: 07-10-2020 Psychotherapy w/patient 30 minutes Li Short LISWS Work Phone: Start: 03-13-2020 Psychotherapy w/patient 30 minutes Li Short Work Phone: Start: 07-16-2019 Drug test prsmv read direct optical obs pr date Susan Maria Antonia Work Phone: Start: 07-04-2019 Patient gave verbal consent for telehealth Rosana Alaniz Start: 06-01-2019 Patient gave verbal consent for telehealth Rosana Alaniz Start: 05-24-2019 History of influenza vaccination Rosana Alaniz Start: 03-08-2019 Diast bp <80 mm hg Rosana Alaniz Work Phone: Start: 03-08-2019 Hg a1c level lt 7.0% Rosana Alaniz Work Phone: Start: 03-08-2019 Syst bp lt 130 mm hg Rosana Alaniz Work Phone: Start: 02-20-2019 Psychotherapy w/patient 30 minutes Uday Hansen Work Phone: Start: 01-29-2019 TELEMETRY MONITORING JENNIFER STEVE Start: 2019 End: 2019 Radiologic examination foot 2 views Sourav Baird Work Phone: Start: 01-04-2019 Medroxyprogesterone acetate Ivy Peni x Work Phone: Start: 01-04-2019 Therapeutic prophylactic/dx injection subq/im Ivy Penix Work Phone: Start: 01-03-2019 Fibrin dgradj products d-dimer quantitative Jean Marie Hurley Start: 01-03-2019 Sedimentation rate rbc automated Jean Marie Hurley Start: 01-03-2019 Radiologic exam chest 2 views Jean Marie Hurley Start: 01-03-2019 Mri spinal canal lumbar w/o contrast material Jean Marie Gibson Hurley Start: 01-03-2019 Urnls dip stick/tablet reagent auto microscopy Jean Marie Gibson Hurley Start: 01-03-2019 Basic metabolic panel calcium total Jean Marie Gibson Hurley Start: 01-03-2019 Blood count complete auto&auto difrntl wbc Jean Marie Gibson Hurley Start: 01-03-2019 C-reactive protein Jean Marie Gibson Patti jeimy Start: 11-20-2018 Medroxyprogesterone acetate Rosana Alaniz Work Phone: Start: 11-20-2018 Therapeutic prophylactic/dx injection subq/im Rosana Alaniz Work Phone: Start: 11-14-2018 Blood count complete auto&auto difrntl wbc Marco A Ro Work Phone: Start: 11-14-2018 Natriuretic peptide Marco A Ro Work Phone: Start: 11-14-2018 Dup-scan xtr veins unilateral/limited study Misbah Oreilly Work Phone: Start: 11-14-2018 Acute hepatitis panel Adelso Allison Work Phone: Start: 11-14-2018 Antibody hiv-1&hiv-2 single result Adelso Allison Work Phone: Start: 11-14-2018 T. PALLIDUM AB Adelso Allison Work Phone: Start: 10-15-2018 CRUTCHES JENNIFER WHALEY Start: 10-15-2018 Radex ankle complete minimum 3 views JENNIFER WHALEY Start: 10-15-2018 Radex foot complete minimum 3 views JENNIFER WHALEY Start: 10-15-2018 Radex ankle complete minimum 3 views Jennifer Whaley Work Phone: Start: 10-15-2018 Radex foot complete minimum 3 views Jennifer Whaley Work Phone: Start: 06-15-2018 ANXIETY DISORDER NOS Rosana Alaniz Start: 06-15-2018 ATTENTION-DEFICIT HYPERACTIVITY DISORDER Rosana Alaniz Start: 06-15-2018 BIPOLAR DISORDER NOS Rosana Alaniz Start: 06-15-2018 Cholecystectomy Rosnaa Alaniz Start: 06-15-2018 Cholecystectomy Rosana Alaniz Start: 06-15-2018 ENDOMETRIOSIS Rosana Alaniz Start: 06-15-2018 FIBROMYALGIA Rosana Alaniz Start: 06-15-2018 HYPOTENSION Rosana Alaniz Start: 06-15-2018 Lithotripsy Rosana Alaniz Start: 06-15-2018 MIGRAINE HEADACHE Rosana Alaniz Start: 06-15-2018 OBESITY EXOGENOUS DUE TO EXCESS CALORIES Rosana Alaniz Start: 06-15-2018 OBSESSIVE COMPULSIVE DISORDER Rosana cooper Start: 06-15-2018 PERSONALITY DISORDER Rosana Alaniz Start: 06-15-2018 Polycystic Ovarian Syndrome (PCOS) Rosana Alaniz Start: 06-15-2018 Printen and Miguel operation, high gastric bypass Rosana Alaniz Start: 06-15-2018 PSYCHIATRIC DISORDERS Rosana Alaniz Start: 06-15-2018 Reduction mammoplasty, bilateral Rosana Alaniz Start: 06-15-2018 SPONDYLOSIS Rosana Alaniz Start: 06-15-2018 Surgical procedure Rosana Alaniz Start: 02-16-2018 Medroxyprogesterone acetate Injection *CONTRACEPTION * GENERIC DEPO PROVERA* (150mg/ml dose) Rosana Alaniz Start: 02-16-2018 Therapeutic prophylactic/dx injection subq/im Rosana Alaniz Start: 12-02-2017 Orthopedics. Rosana Alaniz Start: 11-24-2017 Comprehensive metabolic panel Rosana cooper Start: 11-24-2017 Assay of folic acid serum Rosana Alaniz Start: 11-24-2017 Assay of free thyroxine Rosana Alaniz Start: 11-24-2017 Assay of iron Rosana Alaniz Start: 11-24-2017 Assay of thyroid stimulating hormone tsh Rosana Alaniz Start: 11-24-2017 Cyanocobalamin vitamin b-12 Rosana Alaniz Start: 11-24-2017 Infectious Disease. Rosana Alaniz Start: 11-24-2017 Iron binding capacity Rosana Alaniz Start: 11-24-2017 Lipid panel Rosana Alaniz Start: 11-24-2017 Medroxyprogesterone acetate Rosana Alaniz Start: 11-24-2017 End: 11-24-2017 Radex ankle complete minimum 3 views Rosana Alaniz Start: 11-24-2017 End: 11-24-2017 Radex foot complete minimum 3 views Rosana Alaniz Start: 11-24-2017 Therapeutic prophylactic/dx injection subq/im Rosanaray Conraden Start: 08-16-2017 End: 08-16-2017 Iaadiadoo streptococcus group a Rosana Katty Start: 08-16-2017 End: 08-16-2017 Drug test prsmv read direct optical obs pr date Rosana Katty Start: 08-16-2017 Medroxyprogesterone acetate Rosana Alaniz Start: 08-16-2017 Therapeutic prophylactic/dx injection subq/im Rosana Alaniz Start: 08-16-2017 End: 08-16-2017 Urine test visual color cmprsn meths Rosanaray Alaniz Start: 08-16-2017 End: 08-16-2017 Urnls dip stick/tablet rgnt non-auto w/o micrscp Rosana Alaniz Start: 05-26-2017 End: 05-26-2017 Antibody herpes smplx type 1 Rosana huddleston Start: 05-26-2017 End: 05-26-2017 C-reactive protein high sensitivity Rosana Alaniz Start: 05-26-2017 End: 05-26-2017 Sedimentation rate rbc automated Rosana Alaniz Start: 05-26-2017 Cul bact xcpt urine blood/stool aerobic isol Rosana Alaniz Start: 05-26-2017 Medroxyprogesterone acetate Rosana Alaniz Start: 05-26-2017 Outside medication administered Rosana Alaniz Start: 05-26-2017 Pathology Rosana Conraden Start: 05-26-2017 Therapeutic prophylactic/dx injection subq/im Rosana Alaniz Start: 03-29-2017 PHQ9 Administered Rosana Alaniz Start: 03-29-2017 SBIRT- Full Screen *POSITIVE* Referred to Provider Rosana Alaniz Start: 03-29-2017 Therapeutic prophylactic/dx injection subq/im Rosana Alaniz Start: 02-22-2017 End: 02-22-2017 Urine test visual color cmprsn meths Rosana Alaniz Start: 02-22-2017 End: 02-22-2017 Antibody herpes smplx type 1 Rosana huddleston Start: 02-22-2017 Blood count complete auto&auto difrntl wbc Rosana Alaniz Start: 02-22-2017 End: 02-22-2017 C-reactive protein Rosana Alaniz Start: 02-22-2017 End: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 deficiency (ICD-10 - E55.9) Is currently taking Vitamin D, will check leve Mar, H/O gastric sleeve (ICD-10 - Z90.3) Mar, Attention deficit hyperactivity disorder (ADHD), predominantly inattentive type (ICD-10 - F90.0) [facility] [employer] for medicaton managment, doing well on current treatment. Mar, Lupus (ICD-10 - M32.9) She is following with Rhematology at [facility], no changes in medications, did have lab work completed and will get these labs for review. Mar, Fibromyalgia (ICD-10 - M79.7) Mar, Multiple sclerosis (ICD-10 - G35) Follows with Neurology in [place] every 3-4 months. Mar, Neuropathy (ICD-10 - G62.9) Follows with Neurology in [place] every 3-4 months. She is taking Lyrica for this. Stable Mar, Other chronic pain (ICD-10 - G89.29) Mar, Lumbago with sciatica, left side (ICD-10 - M54.42) Follows with her Neurosurgeon whom recently referred her to [facility] for injections awaiting on an appointment. Mar, History of back surgery (ICD-10 - Z98.890) Mar, Cervical back pain with evidence of disc disease (ICD-10 - M50.90) Mar, Bilateral lower extremity edema (ICD-10 - R60.0) Continues with intermittent swelling and uses Lasix as needed. Add to potassium and then will repeat labs in 2 weeks. Mar, Viral upper respiratory illness (ICD-10 - J06.9) Symptoms appear viral today. Will send in Tessalon as needed for cough. Continue to use Tylenol and ibuprofen for general discomfort. Encourage fluids and rest. Symptoms should improve within the next 4-7 days. If no improvement of symptoms by 7-10 days, patient should follow-up Patient should follow up sooner if symptoms worsen. Patient verbalizes understanding and agreement with treatment plan. [employer] Other 2024 Evaluation note* Encounter Date Diagnosis Assessment Notes Treatment Notes Treatment Clinical Notes Mar, Blood glucose elevated (ICD-10 - R73.9) [facility] [employer] Other 10-09-2023 Evaluation note* Encounter Date Diagnosis Assessment Notes Treatment Notes Treatment Clinical Notes Dec, Hepatitis C (ICD-10 - B19.20) The patient's antibody is postive. The PCR is negative. She cleared the virus with Epclusa treatment under Dr. Madera's care. The antibody will always show as positive. The patient is aksing for a refill of her Protonix 40 mg qd. and Famotidine 40 mg qd. Return visit here in one year for continued refills of these medications. We will order a repeat Hep C RNA level [facility] Other 10-02-2023 Evaluation note* Encounter Date Diagnosis Assessment Notes Treatment Notes Treatment Clinical Notes Dec, Bilateral lower extremity edema (ICD-10 - R60.0) [employer] Other 07-19-2023 Evaluation note* Encounter Date Diagnosis Assessment Notes Treatment Notes Treatment Clinical Notes Sep, Attention deficit hyperactivity disorder (ADHD), predominantly inattentive type (ICD-10 - F90.0) Discussed with patient that she would need a referral to psych for the further treatment of her ADD as I do not prescribe this. She is willing for a referral for a complete evaluation and referral was placed. Sep, Lupus (ICD-10 - M32.9) Referral placed to Rheumatology for continued care of her Lupus. Sep, Fibromyalgia (ICD-10 - M79.7) Sep, Multiple sclerosis (ICD-10 - G35) Follows with Neurology in [place] every 3-4 months. Sep, Neuropathy (ICD-10 - G62.9) Follows with Neurology in [place] every 3-4 months. She is taking Lyrica for this. Sep, Screening for metabolic disorder (ICD-10 - Z13.228) will call lab and diagnostic results and recommendations Sep, Screening for lipid disorders (ICD-10 - Z13.220) Sep, Screening for deficiency anemia (ICD-10 - Z13.0) Sep, Family history of diabetes mellitus (ICD-10 - Z83.3) Sep, Partial thickness burn of left breast, subsequent encounter (ICD-10 - T21.21XD) Take medication as directed. Complete all doses of medication, even if symptoms are no longer present. Keep wound clean, dry and covered, especially if potentially exposed to dirty environment. Avoid baths or soaking finger. Gently wash area twice daily with soap and water and pat dry. Do not apply antibiotic ointments or clean area with hydrogen peroxide or rubbing alcohol. Follow up with begin to experience signs of infection: increased redness, swelling, warmth to area, pus or drainage, fever, or increasing pain. may need referral to wound management. Pt verbalized understanding and agreement with treatment plan. Sep, Hepatitis C virus infection without hepatic coma, unspecified chronicity (ICD-10 - B19.20) Would like to follow-up with GI for further evaluation and treamtent. Referral placed. Sep, Other chronic pain (ICD-10 - G89.29) WOuld like referral to pain management for further management of her chronic back and neck pain. Referral placed. Sep, Lumbago with sciatica, left side (ICD-10 - M54.42) Sep, History of back surgery (ICD-10 - Z98.890) Sep, Cervical back pain with evidence of disc disease (ICD-10 - M50.90) Sep, Wound of left breast, subsequent encounter (ICD-10 - S21.002D) Take medication as directed. Complete all doses of medication, even if symptoms are no longer present. Keep wound clean, dry and covered, especially if potentially exposed to dirty environment. Avoid baths or soaking finger. Gently wash area twice daily with soap and water and pat dry. Do not apply antibiotic ointments or clean area with hydrogen peroxide or rubbing alcohol. Follow up if you begin to experience signs of infection: increased redness, swelling, warmth to area, pus or drainage, fever, or increasing pain. May need referral to wound managment. Pt verbalized understanding and agreement with treatment plan. [employer] Other 11-15-2022 Evaluation note* Encounter Date Diagnosis Assessment Notes Treatment Notes Treatment Clinical Notes Jan, Cellulitis of right lower leg (ICD-10 - L03.115) Discussed diagnosis with patient in detail. Instructed patient to take antibiotic as directed, complete entire course even if feeling better, take with food and plenty of water. Instructed close monitoring of area. Wound care as discussed. Avoid picking at scab or scrubbing, clean by letting warm soapy water run over. May leave open to air, cover with non-adherent dressing as needed if rubbing on pant leg or draining. Follow up with PCP in the next 2-3 days. Immediate eval by ER if fever, chills, body aches, increase in swelling or redness, red streaking from wound, pain with ambulation, calf swelling, tenderness, redness warmth, SOB, difficulty breathing, chest pain, or any new or concerning symptoms. Patient verbalizes understanding and is agreeable to treatment plan [employer] Other 04-27-2022 Evaluation note* Encounter Date Diagnosis Assessment Notes Treatment Notes Treatment Clinical Notes Jun, Constipation (ICD-10 - K59.00) [employer] Other 12-28-2021 Evaluation note* Encounter Date Diagnosis Assessment Notes Treatment Notes Treatment Clinical Notes Feb, Hepatitis C (ICD-10 - B19.20) THIS PATIENT IS A GOOD CANDIDATE FOR THERAPY SHE IS MOTIVATED AND AGREES TO PROCEED WITH THERAPY WITH [facility] THE PATIENT READINESS CONSENT WAS DISCUSSED AND SIGNED BY PATIENT AND PHYSICIAN SHE DOES NOT HAVE ANY LIMITED LIFE EXPECTACNCY DUE TO NON LIVER COMORBITIES AND AGREES TO RNA TESTING Q 4 WEEKS WHILE ON THERAPY Feb, Constipation (ICD-10 - K59.00) CONTINUE FIBERLAX [employer] Other 10-23-2021 Hospital Discharge instructions* Instructions* Skibicki, Sai, MD - 12/27/2020 Please refrain from utilizing any substance abuse * Attachments The following attachments cannot be sent through Care Everywhere. * Substance Use Disorder (Burundian) [facility]: 1(327) 144-702910-23-2021 History of Present illness Narrative* Nirmal Amado RCP - 12/27/2020 11:38 AM EDT VBG specimen hemolyzed. Rosibel KELLY aware. [facility] Phone: [phone]) 411-841105-06-2021 Evaluation note Includes: Assessments for all patient encounters Findings Encounter Date Moderate recurrent major depression BH E stablished Patient with Li Short LIS 07/10/2020 Imp[facility]igo Medical Established Patient with Rosana Conraden [facility] 07/10/2020 Obesity due to excess calories Medical E stablished Patient with Rosana Katty [facility] 07/10/2020 Screening for diabetes mellitus Medical Established Patient with Rosana Alaniz [facility] 07/10/2020 Z68.31 - Body mass index [BM I] 31.0-31.9, adult Medical Established Patient with Rosana Alaniz [facility] 07/10/2020 Moderate recurrent major depression T elebehavioral Health with Li Sutherland [facility] 03/13/2020 Body mass index Telemedicine Establi sted Patient with Rosana Alaniz [facility] 03/13/2020 Obesity due to excess calories Telemedic ine Establisted Patient with Rosana Katty [facility] 03/13/2020 Obesity due to excess calories Telemedicine with Rosana Katty [facility] 07/04/2019 Z68.31 - Body mass index (BM I) 31.0-31.9, adult Telemedicine with Rosana Katty [facility] 07/04/2019 Anxiety disorder NOS CPS Med Review with Rosanaray gomez [facility] 03/08/2019 Obesity due to excess calories CPS Med Review wi th Rosana Katty [facility] 03/08/2019 Screening for diabetes mellitus CPS Med Review w ith Rosana Katty [facility] 03/08/2019 Z68.32 - Body mass index (BM I) 32.0-32.9 adult CPS Med Review with Rosana Alaniz [facility] 03/08/2019 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 BH Established Patient with Uday Hansen [facility] 02/20/2019 Fagerstrom Score was 0 02/20/2019 Medica l Established Patient with Rosana Alaniz [facility] 02/20/2019 Obesity due to excess calories Medical E stablished Patient with Rosana Alaniz [facility] 02/20/2019 PHQ-9: total score was 24 02/20/2019 Med ical Established Patient with Rosana Alaniz [facility] 02/20/2019 Z68.34 - Body mass index (BM I) 34.0-34.9 adult Medical Established Patient with Rosana Alaniz [facility] 02/20/2019 Bulging intervertebral disc Medical Esta blished Patient with Ivy Le [facility] 01/04/2019 Fibromyalgia Medical Established Patient with Ivy Le [facility] 01/04/2019 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 Medical Established Patient with Ivy Le [facility] 01/04/2019 Obesity due to excess calories Medical E stablished Patient with Ivy Le [facility] 01/04/2019 Z30.42 - Encounter for surve illance of injectable contraceptive Medical Established Patient with Primitivo Lujan [facility] 01/04/2019 Z68.31 - Body mass index (BM I) 31.0-31.9 adult Medical Established Patient with Primitivo Lujan [facility] 01/04/2019 Assess migraine headache Medical Establi shed Patient with Rosana Alaniz [facility] 11/20/2018 Diabetes Risk Test Score was three score Medical Established Patient with Rosana Alaniz [facility] 11/20/2018 Obesity due to excess calories Medical E stablished Patient with Rosana Alaniz [facility] 11/20/2018 Z68.34 - Body mass index (BM I) 34.0-34.9 adult Medical Established Patient with Rosana Alaniz [facility] 11/20/2018 M25.572 - Pain in left ankle and joints of left foot Chart Update with Ivy Le [facility] 10/25/2018 Assess open wound of the jacinto d, complicated Medical Established Patient with Rosana Alaniz [facility] 06/15/2018 Body mass index Medical Established Patient with Rosana Alaniz [facility] 06/15/2018 Assess dermatitis Chart Update with Rosana Katty [facility] 06/01/2018 [facility] Work Phone: [phone]) 306-136404-29-2020 History general Narrative - Reported Includes: Medical History in patient's chart Description Last Updated Patient gave verbal consent for teleheal th 07/04/2019 A recent immunization for flu 05/24/2019 Endometriosis 06/15/2018 Fibromyalgia 06/15/2018 Hypotension 06/15/2018 Migraine headache 06/15/2018 Obesity due to excess calories 9 Obsessive compulsive disorder 06/15/2018 Personality disorder 06/15/2018 Polycystic Ovarian Syndrome (PCOS) 06/15 Spondylosis 06/15/2018 History of anxiety disorder NOS 06/16/19 19 History of attention-deficit hyperactivi ty disorder 06/15/2018 History of bipolar disorder NOS 06/16/19 19 History of psychiatric disorders 019 [facility] Work Phone: Evaluation note* Diagnosis Substance abuse (HCC)- Primary Other, mixed, or unspecified nondependent drug abuse, unspecified documented in this encounter [employer] Work Phone: evaluation noteNo [facility] [employer] Other Evaluation noteNo assessment information [facility] Work Phone: Evaluation note* Diagnosis S/P lumbar fusion Arthrodesis status [facility] Diagnosis Bilateral leg pain- Primary Pain in soft tissues of limb Herniated lumbar intervertebral disc Displacement of lumbar intervertebral disc without myelopathy S/P lumbar fusion Arthrodesis status Lumbar foraminal stenosis [facility] Diagnosis Lumbar radiculopathy- Primary Thoracic or lumbosacral neuritis or radiculitis, unspecified Spinal stenosis of lumbar region with neurogenic claudication Spinal stenosis of lumbar region with neurogenic claudication- Primary Lumbar radiculopathy Thoracic or lumbosacral neuritis or radiculitis, unspecified Lumbar radiculopathy Thoracic or lumbosacral neuritis or radiculitis, unspecified Spinal stenosis of lumbar region with neurogenic claudication [facility]* Diagnosis Lumbar radiculopathy- Primary Thoracic or lumbosacral neuritis or radiculitis, unspecified Lumbar radiculopathy- Primary Thoracic or lumbosacral neuritis or radiculitis, unspecified Lumbar radiculopathy Thoracic or lumbosacral neuritis or radiculitis, unspecified [facility] Diagnosis Onset Date Resolution Status Abscess acute Cellulitis acute [facility] Work Phone: History general Narrative - Reported* Type Description Date Medical History ulcers bleeding and perforated Medical History fibromyalgia Medical History ADHD Medical History migraine headache Medical History insomnia Medical History Chiari malformation Medical History multiple sclerosis Surgical History cholecystectomy Surgical History breast reduction Surgical History breast augmentation Surgical History gastric sleeve Surgical History pick/port line Hospitalization History see above [employer] Other Histyni general Narrative - Reported* Type Description Date Medical History ulcers bleeding and perforated Medical History fibromyalgia Medical History ADHD Medical History migraine headache Medical History insomnia Medical History Chiari malformation Medical History multiple sclerosis Medical History Substance abuse Surgical History cholecystectomy Surgical History breast reduction Surgical History breast augmentation Surgical History gastric sleeve Surgical History pick/port line Hospitalization History see above [employer] Other History of Present illness Narrative History of Present Illness not supported for this document type No History of Present Illness [facility] Work Phone: Hospital Discharge instructions Additional Instructions If your symptoms return/worsen or you develop any further concerns or symptoms please see your doctor or return to the emergency department immediately.[facility] Work Phone: Instructions Instructions not supported for this document type No Instructions [facility] Work Phone: InstructionsNot on filedocumented in this encounter [facility] filedocumented in this encounter [facility]ructionsNot on filedocumented in this encounter [facility] on filedocumented in this encounter [facility] filedocumented in this encounter [facility] outcome Narrative Includes: Evaluations & Outcomes for active Goals No Outcomes [facility] Work Phone: Reason for referral (narrative)No Reason for Referral [facility] Work Phone: Reason for referral (narrative)* Consultation (Routine) - Pending Review Specialty Diagnoses / Procedures Referred By Contac t Referred To Contact Pain Medicine Diagnoses Bilateral leg pain Herniated lumbar intervertebral disc S/P lumbar fusion Lumbar foraminal stenosis Johana Hansen, GERALDO [address] [address] Anup Butler MD [address] [place] [address] Referral ID Status Reason Start Date Expiration Date Visits Requested Visits Authorized [id number] Pending Review Specialty Services Required 03/30/2023 03/29/2024 1 1 [facility] SystemReview of systems Narrative - Reported Review of Systems not supported for this document type No Review of Systems [facility] Work Phone: Summary Purpose Family History No Family History Records Found Description Last Updated Maternal history of type 2 diabetes zia itus 06/15/2018 Relationship Condition Age at Onset Recorded Date/T carlin father Unknown Heart disease Unknown Multiple sclerosis Unknown Not Specified Heart disease Unknown Advance Directives No Advanced Directives Records FoundDocuments on File Type Date Recorded 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 Advance Directives and Living Will Power of Quality Assurance Lead Latest Code Status on File Code Status Date Activated Date Inactivated Comments Full Code 11/16/2016 12:58 PM 11/16/2016 4:36 PM Full Code 07/27/2016 3:17 PM 07/27/2016 6:53 PM Full Code 11/25/2015 11:45 AM 11/25/2015 3:40 PM Full Code 11/11/2015 11:55 AM 11/11/2015 5:56 PM Full Code 07/22/2015 12:41 PM 07/22/2015 4:32 PM Documents on File Type Date Recorded 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 Advance Directives and Living Will Power of Quality Assurance Lead Latest Code Status on File Code Status Date Activated Date Inactivated Comments Full Code 11/16/2016 12:58 PM 11/16/2016 4:36 PM Full Code 07/27/2016 3:17 PM 07/27/2016 6:53 PM Full Code 11/25/2015 11:45 AM 11/25/2015 3:40 PM Full Code 11/11/2015 11:55 AM 11/11/2015 5:56 PM Full Code 07/22/2015 12:41 PM 07/22/2015 4:32 PM Documents on File Type Date Recorded 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 ACP-Advance Directive ACP-Power of Quality Assurance Lead Advance Directive Response Recorded Date/ Time Advance Directives No November 2:54pm Advance Directive Response Recorded Date/ Time Advance Directives No November 1:54pm Latest Code Status on File Code Status Date Activated Date Inactivated Comments Full Code 08/24/2021 4:14 PM 08/25/2021 5:22 PM Code Status History Code Status Date Activated Date Inactivated Comments Full Code 06/11/2020 8:48 AM 06/14/2020 7:23 PM Full Code 01/15/2019 8:18 PM 01/16/2019 4:36 PM Latest Code Status on File Code Status Date Activated Date Inactivated Comments Full Code 08/24/2021 4:14 PM 08/25/2021 5:22 PM Code Status History Code Status Date Activated Date Inactivated Comments Full Code 06/11/2020 8:48 AM 06/14/2020 7:23 PM Full Code 01/15/2019 8:18 PM 01/16/2019 4:36 PM History of Past Illness Name Date of Onset Comments ADHD OCD (obsessive compulsive disorder) Anxiety Fibromyalgia Endometriosis PCOS (polycystic ovarian syndrome) Low blood pressure Bipolar disorder Personality disorder Migraine Degenerative Disc Disease Spondylosis, cervical Lumbosacral spondylosis Sinusitis Dec 09 2016 2:59PM Attention deficit hyperactiv ity disorder (ADHD), combined type Dec 09 2016 2:59PM BMI 26.0-26.9,adult Dec 09 2016 2:59PM Establishing care with new doctor, encounter for Dec 09 2016 2:59PM Folliculitis Dec 09 2016 2:59PM Screening for diabetes mellitus Jan 06 2017 2:43P M Family history of diabetes m nadiyaitus in first degree relative Jan 06 2017 2:43PM Attention deficit hyperactiv ity disorder (ADHD), predominantly inattentive type Jan 06 2017 2:43PM Yeast infection Jan 06 2017 2:43PM BMI 26.0-26.9,adult Jan 06 2017 2:43PM Sore throat Jan 06 2017 2:43PM Yeast infection Feb 01 2017 3:08PM Intractable chronic cluster headache Feb 01 2017 3:08PM Sleep apnea Feb 01 2017 3:08PM Anxiety Feb 01 2017 3:08PM BMI 27.0-27.9,adult Feb 01 2017 3:08PM Attention deficit hyperactiv ity disorder (ADHD), combined type Feb 01 2017 3:08PM BMI 26.0-26.9,adult Feb 22 2017 3:09PM Psoriasis Feb 22 2017 3:09PM Fever and chills Feb 22 2017 3:09PM Wound abscess, sequela Feb 22 2017 3:09PM Depo-Provera contraceptive status Feb 22 2017 3: 09PM Major depressive disorder, single episode, unspe cified Feb 22 2017 3:09PM Other fatigue Feb 22 2017 3:09PM B12 deficiency Feb 22 2017 3:09PM Sinus congestion Feb 22 2017 3:09PM Anxiety Mar 29 2017 1:31PM ADHD Mar 29 2017 1:31PM BMI 27.0-27.9,adult Mar 29 2017 1:31PM Low vitamin B12 level Mar 29 2017 1:31PM Folliculitis May 09 2017 12:03PM Depo-Provera contraceptive status May 26 2017 11 :20AM BMI 29.0-29.9,adult May 26 2017 11:20AM Wounds, multiple May 26 2017 11:20AM Screening for STD (sexually transmitted disease) May 26 2017 11:20AM Eye pain, right May 26 2017 11:20AM Sinus congestion Aug 16 2017 11:23AM BMI 30.0-30.9,adult Aug 16 2017 11:23AM Seasonal allergies Aug 16 2017 11:23AM Depo-Provera contraceptive status Aug 16 2017 11 :23AM Discharge Instructions * Instructions* Jennifer Whaley MD - 10/15/2018 You were found to have a possible injury to the talonavicular joint. We applied a splint to your left lower leg. Please avoid getting this area wet. This was secured with an sonny wrap. If you need to readjust the wrapping, please do not apply this too tightly, as it can cut off blood supply. After putting the sonny wrap on, please check to make sure your limb is warm to the touch, normal in color, and that you have not had any loss of feeling. If any of these occur, please remove immediately. You can take up to 1000 mg of tylenol every 6 hours. If these do not work you can add oxycodone. However these are narcotis and do not take and drive. Please call your picked edge sewing machine operator for follow-up within 1 week. Please return to the ED if you have severe worsening of pain, loss of sensation, your foot become numb, or any other concerns arise. documented in this encounter* Attachments The following attachments cannot be sent through Care Everywhere. * Edema: Leg and Ankle ([place]ian) * Impetigo ([place]ian) * LFTs (Liver Function Tests) ([place]ian) documented in this encounter* Attachments The following attachments cannot be sent through Care Everywhere. * Sciatica ([place]ian) * Foot Fracture ([place]ian) documented in this encounter* Instructions* Jean Marie Hurley MD - 01/03/2019 You have a large herniated disc with entrapment of the left L5 nerve root. I would recommend follow-up with a neurosurgeon. documented in this encounter* Attachments The following attachments cannot be sent through Care Everywhere. * Drug Overdose: Opioid ([place]ian) documented in this encounter Assessments Diagnosis Injury of left foot, initial encounter- Primary Findings Encounter Date M25.572 - Pain in left ankle and joints of left foot Chart Update with Primiitvo Lujan [facility] 10/25/2018 Assess open wound of the jacinto d, complicated Medical Established Patient with Rosanaray Alaniz [facility] 06/15/2018 Body mass index Medical Established Patient with Rosanaray Alaniz [facility] 06/15/2018 Assess dermatitis Chart Update with Rosana Alaniz [facility] 06/01/2018 Diagnosis Bilateral lower extremity edema- Primary Edema Transaminitis Nonspecific elevation of levels of transaminase or lactic acid dehydrogenase (LDH) Impetigo Findings Encounter Date Bulging intervertebral disc Medical Esta blished Patient with Primitivo Lujan [facility] 01/04/2019 Fibromyalgia Medical Established Patient with Primitivo Lujan [facility] 01/04/2019 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 Medical Established Patient with Primitivo Lujan [facility] 01/04/2019 Obesity due to excess calories Medical E stablished Patient with Ivy Le [facility] 01/04/2019 Z30.42 - Encounter for surve illance of injectable contraceptive Medical Established Patient with Ivy Nathanaelkamilah [facility] 01/04/2019 Z68.31 - Body mass index (BM I) 31.0-31.9 adult Medical Established Patient with Primitivo Lujan [facility] 01/04/2019 Assess migraine headache Medical Establi shed Patient with Rosana Alaniz [facility] 11/20/2018 Diabetes Risk Test Score was three score Medical Established Patient with Rosana Alaniz [facility] 11/20/2018 Obesity due to excess calories Medical E stablished Patient with Rosana Alaniz [facility] 11/20/2018 Z68.34 - Body mass index (BM I) 34.0-34.9 adult Medical Established Patient with Rosana Alaniz [facility] 11/20/2018 M25.572 - Pain in left ankle and joints of left foot Chart Update with Primitivo Lujan [facility] 10/25/2018 Assess open wound of the jacinto d, complicated Medical Established Patient with Rosana Alaniz [facility] 06/15/2018 Body mass index Medical Established Patient with Rosana Alaniz [facility] 06/15/2018 Assess dermatitis Chart Update with Rosana Alaniz [facility] 06/01/2018 Diagnosis Sciatica of left side- Primary Sciatica Closed fracture of right foot, initial encounter Findings Encounter Date 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 Established Patient with Uday Hansen [facility] 02/20/2019 Fagerstrom Score was 0 02/20/2019 Medica l Established Patient with Rosana Alaniz [facility] 02/20/2019 Obesity due to excess calories Medical E stablished Patient with Rosana Alaniz [facility] 02/20/2019 PHQ-9: total score was 24 02/20/2019 Med ical Established Patient with Rosana Alaniz [facility] 02/20/2019 Z68.34 - Body mass index (BM I) 34.0-34.9 adult Medical Established Patient with Rosana Alaniz [facility] 02/20/2019 Bulging intervertebral disc Medical Esta blished Patient with Ivy Penkamilah [facility] 01/04/2019 Fibromyalgia Medical Established Patient with Ivy Penix [facility] 01/04/2019 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 Medical Established Patient with Ivy Penix [facility] 01/04/2019 Obesity due to excess calories Medical E stablished Patient with Ivy Penix [facility] 01/04/2019 Z30.42 - Encounter for surve illance of injectable contraceptive Medical Established Patient with Ivy Penix [facility] 01/04/2019 Z68.31 - Body mass index (BM I) 31.0-31.9 adult Medical Established Patient with Primitivo Lujan [facility] 01/04/2019 Assess migraine headache Medical Establi shed Patient with Rosana Alaniz [facility] 11/20/2018 Diabetes Risk Test Score was three score Medical Established Patient with Rosana Alaniz [facility] 11/20/2018 Obesity due to excess calories Medical E stablished Patient with Rosana Alaniz [facility] 11/20/2018 Z68.34 - Body mass index (BM I) 34.0-34.9 adult Medical Established Patient with Rosana Alaniz [facility] 11/20/2018 M25.572 - Pain in left ankle and joints of left foot [facility] Assess open wound of the jacinto d, complicated Medical Established Patient with Rosana Alaniz [facility] 06/15/2018 Body mass index Medical Established Patient with Rosana Alaniz [facility] 06/15/2018 Assess dermatitis Chart Update with Rosana Alaniz [facility] 06/01/2018 Findings Encounter Date Anxiety disorder NOS CPS Med Review with [facility] 03/08/2019 Obesity due to excess calories CPS Med R janaw with [facility] 03/08/2019 Screening for diabetes mellitus CPS Med Review with [facility] 03/08/2019 Z68.32 - Body mass index (BM I) 32.0-32.9 adult CPS Med Review with Rosanaray Alaniz [facility] 03/08/2019 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 Established Patient with Uday Hansen [facility] 02/20/2019 Fagerstrom Score was 0 02/20/2019 Medica l Established Patient with Rosana Alaniz [facility] 02/20/2019 Obesity due to excess calories Medical E stablished Patient with oRsana Alaniz [facility] 02/20/2019 PHQ-9: total score was 24 02/20/2019 Med ical Established Patient with Rosana Alaniz [facility] 02/20/2019 Z68.34 - Body mass index (BM I) 34.0-34.9 adult Medical Established Patient with Rosana Alaniz [facility] 02/20/2019 Bulging intervertebral disc Medical Esta blished Patient with Ivy Penix [facility] 01/04/2019 Fibromyalgia Medical Established Patient with Ivy Penix [facility] 01/04/2019 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 Medical Established Patient with IvyNya Lujan [facility] 01/04/2019 Obesity due to excess calories Medical E stablished [facility] Z30.42 - Encounter for surve illance of injectable contraceptive Medical Established [facility]04/2019 Z68.31 - Body mass index (BM I) 31.0-31.9 adult Medical Established Patient with Primitivo Lujan [facility] 01/04/2019 Assess migraine headache Medical Establi shed Patient with Rosana Alaniz [facility] 11/20/2018 Diabetes Risk Test Score was three score Medical Established Patient with Rosana Katty [facility] 11/20/2018 Obesity due to excess calories Medical E stablished Patient with Rosana [facility] 11/20/2018 Z68.34 - Body mass index (BM I) 34.0-34.9 adult Medical Established Patient with Rosana Alaniz [facility] 11/20/2018 M25.572 - Pain in left ankle and joints of left foot [facility]2018 Assess open wound of the jacinto d, complicated Medical Established Patient with Rosana Alaniz [facility] 06/15/2018 Body mass index Medical Established Patient with Rosana Alaniz [facility] 06/15/2018 Assess dermatitis Chart Update with Rosana [facility] 06/01/2018 Findings Encounter Date Obesity due to excess calories Telemedicine with Rosanaray Alaniz [facility] 07/04/2019 Z68.31 - Body mass index (BM I) 31.0-31.9, adult Telemedicine with Rosana Alaniz [facility] 07/04/2019 Anxiety disorder NOS CPS Med Review with Rosana Sameer gomez [facility] 03/08/2019 Obesity due to excess calories CPS Med Review wi th Rosanaray Alaniz [facility] 03/08/2019 Screening for diabetes mellitus CPS Med Review w ith [facility] 03/08/2019 Z68.32 - Body mass index (BM I) 32.0-32.9 adult CPS [facility] 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 BH Established Patient with Uday Hansen [facility] 02/20/2019 Fagerstrom Score was 0 02/20/2019 Medica l Established Patient with Rosana Alaniz [facility] 02/20/2019 Obesity due to excess calories Medical E stablished Patient with Rosana Alaniz [facility] 02/20/2019 PHQ-9: total score was 24 02/20/2019 Med ical Established Patient with Rosana Alaniz [facility] 02/20/2019 Z68.34 - Body mass index (BM I) 34.0-34.9 adult Medical Established Patient with Rosana Alaniz [facility] 02/20/2019 Bulging intervertebral disc Medical Esta blished Patient with Primitivo Lujan [facility] 01/04/2019 Fibromyalgia Medical Established Patient with Primitivo Lujan [facility] 01/04/2019 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 Medical Established Patient with Primitivo Lujan [facility] 01/04/2019 Obesity due to excess calories Medical E stablished Patient with Primitivo Lujan [facility] 01/04/2019 Z30.42 - Encounter for surve illance of injectable contraceptive Medical Established Patient with Primitivo Lujan [facility] 01/04/2019 Z68.31 - Body mass index (BM I) 31.0-31.9 adult Medical Established Patient with Primitivo Lujan [facility] 01/04/2019 Assess migraine headache Medical Establi shed Patient with Rosana Alaniz [facility] 11/20/2018 Diabetes Risk Test Score was three score Medical Established Patient with Rosana Alaniz [facility] 11/20/2018 Obesity due to excess calories Medical E stablished Patient with Rosana Alaniz [facility] 11/20/2018 Z68.34 - Body mass index (BM I) 34.0-34.9 adult Medical Established Patient with Rosana Alaniz [facility] 11/20/2018 M25.572 - Pain in left ankle and joints of left foot Chart Update with Primitivo Lujan [facility] 10/25/2018 Assess open wound of the jacinto d, complicated Medical Established Patient with Rosana Alaniz [facility] 06/15/2018 Body mass index Medical Established Patient with Rosana Alaniz [facility] 06/15/2018 Assess dermatitis Chart Update with Rosana Alaniz [facility] 06/01/2018 Findings Encounter Date Moderate recurrent major depression [facility] 03/13/2020 Body mass index Telemedicine Establi sted Patient with Rosana Katty [facility] 03/13/2020 Obesity due to excess calories Telemedic ine Establisted Patient with Rosana Katty [facility] 03/13/2020 Obesity due to excess calories Telemedicine with Rosana Katty [facility] 07/04/2019 Z68.31 - Body mass index (BM I) 31.0-31.9, adult Telemedicine with Rosana Katty [facility] 07/04/2019 Anxiety disorder NOS CPS Med Review with Rosana gomez [facility] 03/08/2019 Obesity due to excess calories CPS Med Review wi th Rosana Alaniz [facility] 03/08/2019 Screening for diabetes mellitus CPS Med Review w ith Rosana Alaniz [facility] 03/08/2019 Z68.32 - Body mass index (BM I) 32.0-32.9 adult CPS Med Review with Rosana Alaniz [facility] 03/08/2019 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 BH Established Patient with Uday Hansen [facility] 02/20/2019 Fagerstrom Score was 0 02/20/2019 Medica l Established Patient with Rosana Alaniz [facility] 02/20/2019 Obesity due to excess calories Medical E stablished Patient with Rosana Alaniz [facility] 02/20/2019 PHQ-9: total score was 24 02/20/2019 Med ical Established Patient with Rosana Alaniz [facility] 02/20/2019 Z68.34 - Body mass index (BM I) 34.0-34.9 adult Medical Established Patient with Rosana Alaniz [facility] 02/20/2019 Bulging intervertebral disc Medical Esta blished [facility] Fibromyalgia Medical Established [facility]/04/2019 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 Medical Established Patient with Ivy Penkamilah [facility] 01/04/2019 Obesity due to excess calories Medical E stablished Patient with Ivy Penix [facility] 01/04/2019 Z30.42 - Encounter for surve illance of injectable contraceptive Medical Established [facility]/04/2019 Z68.31 - Body mass index (BM I) 31.0-31.9 adult Medical Established Patient with Ivy Le [facility] 01/04/2019 Assess migraine headache Medical Establi shed Patient with Rosana Alaniz [facility] 11/20/2018 Diabetes Risk Test Score was three score Medical Established Patient with Rosana Alaniz [facility] 11/20/2018 Obesity due to excess calories Medical E stablished Patient with Rosana Alaniz [facility] 11/20/2018 Z68.34 - Body mass index (BM I) 34.0-34.9 adult Medical Established Patient with Rosana Alaniz [facility] 11/20/2018 M25.572 - Pain in left ankle and joints of left foot Chart Update with Primitivo Huffmankamilah [facility] 10/25/2018 Assess open wound of the jacinto d, complicated Medical Established Patient with Rosana Alaniz [facility] 06/15/2018 Body mass index Medical Established Patient with Rosana Alaniz [facility] 06/15/2018 Assess dermatitis Chart Update with Rosana Alaniz [facility] 06/01/2018 Diagnosis Herniated intervertebral disc of lumbar spine- Primary Neuropathy Mononeuritis of unspecified site Diagnosis Accidental overdose of heroin, initial encounter ([facility])- Primary Findings Encounter Date Assess open wound of the jacinto d, complicated Medical Established Patient with Rosana Alaniz [facility] 06/15/2018 Body mass index Medical Established Patient with Rosana Alaniz [facility] 06/15/2018 Assess dermatitis Chart Update with Rosana Alaniz [facility] 06/01/2018 Diagnosis Pain of left calf Findings Encounter Date Assess migraine headache Medical Establi shed Patient with Rosana Alaniz [facility] 11/20/2018 Diabetes Risk Test Score was three score Medical Established Patient with Rosana Alaniz [facility] 11/20/2018 Obesity due to excess calories Medical E stablished Patient with Rosana Alaniz [facility] 11/20/2018 Z68.34 - Body mass index (BM I) 34.0-34.9 adult Medical Established Patient with Rosana Alaniz [facility] 11/20/2018 M25.572 - Pain in left ankle and joints of left foot Chart Update with Primitivo Lujan [facility] 10/25/2018 Assess open wound of the jacinto d, complicated Medical Established Patient with Rosana Alaniz [facility] 06/15/2018 Body mass index Medical Established Patient with Rosana Alaniz [facility] 06/15/2018 Assess dermatitis Chart Update with Rosana Alaniz [facility] 06/01/2018 Instructions Instructions not supported for this document type No Instructions Recorded Instructions not supported for this document type No Instructions Recorded Instructions not supported for this document type No Instructions Recorded Instructions not supported for this document type No Instructions Recorded Instructions not supported for this document type No Instructions Recorded Instructions not supported for this document type No Instructions Recorded Instructions not supported for this document type No Instructions Recorded Instructions not supported for this document type No Instructions Recorded Instructions not supported for this document type No Instructions Recorded Instructions not supported for this document type No Instructions Recorded Instructions not supported for this document type No Instructions Recorded Instructions not supported for this document type No Instructions Recorded Instructions not supported for this document type No Instructions Recorded Instructions not supported for this document type No Instructions Recorded Instructions not supported for this document type No Instructions Recorded Instructions not supported for this document type No Instructions Recorded History of Present Illness History of Present Illness not supported for this document type No History of Present Illness Recorded History of Present Illness not supported for this document type No History of Present Illness Recorded History of Present Illness not supported for this document type No History of Present Illness Recorded History of Present Illness not supported for this document type No History of Present Illness Recorded History of Present Illness not supported for this document type No History of Present Illness Recorded History of Present Illness not supported for this document type No History of Present Illness Recorded History of Present Illness not supported for this document type No History of Present Illness Recorded History of Present Illness not supported for this document type No History of Present Illness Recorded History of Present Illness not supported for this document type No History of Present Illness Recorded History of Present Illness not supported for this document type No History of Present Illness Recorded History of Present Illness not supported for this document type No History of Present Illness Recorded History of Present Illness not supported for this document type No History of Present Illness Recorded History of Present Illness not supported for this document type No History of Present Illness Recorded History of Present Illness not supported for this document type No History of Present Illness Recorded History of Present Illness not supported for this document type No History of Present Illness Recorded History of Present Illness not supported for this document type No History of Present Illness Recorded Review of System Review of Systems not supported for this document type No Review of Systems Recorded Review of Systems not supported for this document type No Review of Systems Recorded Review of Systems not supported for this document type No Review of Systems Recorded Review of Systems not supported for this document type No Review of Systems Recorded Review of Systems not supported for this document type No Review of Systems Recorded Review of Systems not supported for this document type No Review of Systems Recorded Review of Systems not supported for this document type No Review of Systems Recorded Review of Systems not supported for this document type No Review of Systems Recorded Review of Systems not supported for this document type No Review of Systems Recorded Review of Systems not supported for this document type No Review of Systems Recorded Review of Systems not supported for this document type No Review of Systems Recorded Review of Systems not supported for this document type No Review of Systems Recorded Review of Systems not supported for this document type No Review of Systems Recorded Review of Systems not supported for this document type No Review of Systems Recorded Review of Systems not supported for this document type No Review of Systems Recorded Review of Systems not supported for this document type No Review of Systems Recorded Physical Exam Physical Exam not supported for this document type No Physical Exam Recorded Physical Exam not supported for this document type No Physical Exam Recorded Physical Exam not supported for this document type No Physical Exam Recorded Physical Exam not supported for this document type No Physical Exam Recorded Physical Exam not supported for this document type No Physical Exam Recorded Physical Exam not supported for this document type No Physical Exam Recorded Physical Exam not supported for this document type No Physical Exam Recorded Physical Exam not supported for this document type No Physical Exam Recorded Physical Exam not supported for this document type No Physical Exam Recorded Physical Exam not supported for this document type No Physical Exam Recorded Physical Exam not supported for this document type No Physical Exam Recorded Physical Exam not supported for this document type No Physical Exam Recorded Physical Exam not supported for this document type No Physical Exam Recorded Physical Exam not supported for this document type No Physical Exam Recorded Physical Exam not supported for this document type No Physical Exam Recorded Physical Exam not supported for this document type No Physical Exam Recorded Physical Exam not supported for this document type No Physical Exam Recorded Physical Exam not supported for this document type No Physical Exam Recorded Reason for Referral Status Reason Specialty Diagnoses / Procedures Referred By Contact Referred To Contact Open Radiology Diagnoses Pain of left calf Procedures VL DUP LOWER EXTREMITY VENOUS LEFT Misbah Oreilly, DPJoanne [address] [place] [address] Reason Would like to b ee seen at [facility] [place]-- psychaitry for ADD treatment, matthew like to see ana martinez if available 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), predominantly inattentive type (F90.0) Referral Organization [facility] Referring Provider First Name Berenice Referring Provider Last Name Danteachecasey Referring Provider Specialty Nurse Pract itioner Referred Organization [facility] frestyl ice Referred Address [address] [place], [place],[address] Referred Provider Specialty Psychiatry Referral Priority Routine General Notes Katina Winter 03:07:30 PM >received today, waiting for notes to be locked to fax Reason *FU 09/29 evaluate -- would like scheduled [place] Diagnosis 1 Lupus (M32.9) Diagnosis 2 Fibromyalgia (M79.7) Referral Organization [facility] Referring Provider First Name Berenice Referring Provider Last Name Danteachecasey Referring Provider Specialty Nurse Pract itioner Referred Organization [facility] Referred Address [address],[address] Referred Provider Specialty Rheumatology Referral Priority Routine General Notes Katina Winter 03:28:37 PM >received today, notes locked, ins attached, referral faxed Clinical Notes Dr. Colindres P: [phone] F: [id number] Reason evaluate Diagnosis 1 Hepatitis C virus in fection without hepatic coma, unspecified chronicity (B19.20) Referral Organization [facility] [place] Referring Provider First Name Berenice Referring Provider Last Name Rohrbacher Referring Provider Specialty Nurse Pract itioner Referred Organization [facility] Gastroenterolo gy Referred Provider Agus Madera Referred Address [address] [facility],[address],[address] Referred Provider Specialty Gastroentero logy Referral Priority Routine General Notes Katina Winter 03:25:06 PM >received today, sent P2P Reason would like referral to pain management [place] Diagnosis 1 Other chronic pain ( G89.29) Diagnosis 2 Lumbago with sciatic a, left side (M54.42) Diagnosis 3 History of back surg maria luz (Z98.890) Diagnosis 4 Cervical back pain w ith evidence of disc disease (M50.90) Referral Organization [facility] [place] Referring Provider First Name Berenice Referring Provider Last Name Rohrbacher Referring Provider Specialty Nurse Pract itioner Referred Organization [facility] Referred Address [address], [place],[address] Referred Provider Specialty Pain Medicin e Referral Priority Routine Specialty Diagnoses / Procedures Referred By Ligia t Referred To Contact Diagnoses Lumbar radiculopathy Spinal stenosis of lumbar region with neurogenic claudication Procedures Case request operating room: INJECTION BLOCK EPIDURAL STEROID LUMBAR/SACRAL Right L 5,1 NR Jaswant Hussein, LYNNETTE [address] [place] [address] Referral ID Status Reason Start Date Expiration Date V isits Requested Visits Authorized [id number] Pending Review 05/04/2023 05/03/2024 1 1 Specialty Diagnoses / Procedures Referred By Contac t Referred To Contact Diagnoses Lumbar radiculopathy Procedures Case request operating room: INJECTION BLOCK EPIDURAL CAUDAL STEROID Renetta Elizalde PA [address] [place] [address] Referral ID Status Reason Start Date Expiration Date V isits Requested Visits Authorized [id number] Pending Review 05/31/2023 05/30/2024 1 1 Chief Complaint and Reason for Visit Chief Complaint S21.002D B19.20 Chief Complaint B19.20 z98.1 g89.29 m48.062 m54.16 Chief Complaint Elevated Sugar Amb Documentation Amb Documentation Spider Bite Chief Complaint Elevated Sugar Amb Documentation Amb Documentation Spider Bite ill Reason for Visit Abscess Cellulitis Additional Source Comments INFORMATION SOURCE (unrecogn ized section and content) DATE CREATED AUTHOR 08/25/2017 [facility] DATE CREATED AUTHOR AUTHOR'S ORGANIZ ATION 08/31/2017 [facility] DATE CREATED AUTHOR AUTHOR'S ORGANIZ ATION 10/25/2017 [facility] DATE CREATED AUTHOR AUTHOR'S ORGANIZ ATION 01/07/2018 [facility] DATE CREATED AUTHOR AUTHOR'S ORGANIZ ATION 01/29/2019 [facility] DATE CREATED AUTHOR AUTHOR'S ORGANIZ ATION 07/11/2020 [facility] DATE CREATED AUTHOR AUTHOR'S ORGANIZ ATION 06/07/2022 [facility] DATE CREATED AUTHOR AUTHOR'S ORGANIZ ATION 09/08/2022 [facility] DATE CREATED AUTHOR AUTHOR'S ORGANIZ ATION 04/12/2023 [facility] DATE CREATED AUTHOR AUTHOR'S ORGANIZ ATION 06/03/2023 [facility] DATE CREATED AUTHOR AUTHOR'S ORGANIZ ATION 06/27/2023 [facility] Reason for Visit (unrecogniz ed section and content) Reason Comments Ankle Pain Left Reason Comments Leg Swelling ongoing for a week Reason Comments Back Pain ongoing back pain. p atient states she had a mri and was diagnosed with bulging disc. Numbness left side pain and n umbness Reason Comments Back Pain low back pain since August. Pt c/o bilateral leg pain since then also. Pt states she has been to multiple ERs and has been exposed to sepsis Reason Comments Drug Overdose used heroin this mor aisha. Found unresponsive in the backseat of a car in the parking lot @ [facility]. Narcan 7 mg [place] per EMS. Status Reason Specialty Diagnoses / Procedures Referred By Contact Referred To Contact Open Vascular Lab Diagnoses Calf swelling Calf pain Procedures [facility] DUPLEX EXTREM VENOUS,UNI OR LTD Misbah Oreilly, DPM [address] [place] [id number] [facility] [address] [phone] Reason Comments Other , med clear for long term. Reason Onset Date Comments Med Refill 04/27/2023 Reason Comments Back Pain Reason Comments Med Refill Evaluations & Outcomes (unre cognized section and content) Includes: Evaluations & Outcomes for active GoalsNo Outcomes Recorded Includes: Evaluations & Outcomes for active GoalsNo Outcomes Recorded Includes: Evaluations & Outcomes for active GoalsNo Outcomes Recorded Includes: Evaluations & Outcomes for active GoalsNo Outcomes Recorded Includes: Evaluations & Outcomes for active GoalsNo Outcomes Recorded Includes: Evaluations & Outcomes for active GoalsNo Outcomes Recorded Includes: Evaluations & Outcomes for active GoalsNo Outcomes Recorded Includes: Evaluations & Outcomes for active GoalsNo Outcomes Recorded Includes: Evaluations & Outcomes for active GoalsNo Outcomes Recorded Includes: Evaluations & Outcomes for active GoalsNo Outcomes Recorded Includes: Evaluations & Outcomes for active GoalsNo Outcomes Recorded Includes: Evaluations & Outcomes for active GoalsNo Outcomes Recorded Includes: Evaluations & Outcomes for active GoalsNo Outcomes Recorded Includes: Evaluations & Outcomes for active GoalsNo Outcomes Recorded Includes: Evaluations & Outcomes for active GoalsNo Outcomes Recorded Includes: Evaluations & Outcomes for active GoalsNo Outcomes Recorded Medical History (unrecognize d section and content) Description Patient gave verbal consent for teleheal th 07/04/2019 A recent immunization for flu 05/24/2019 Endometriosis 06/15/2018 Fibromyalgia 06/15/2018 Hypotension 06/15/2018 Migraine headache 06/15/2018 Obesity due to excess calories 9 Obsessive compulsive disorder 06/15/2018 Personality disorder 06/15/2018 Polycystic Ovarian Syndrome (PCOS) 06/15 Spondylosis 06/15/2018 History of anxiety disorder NOS 06/16/19 19 History of attention-deficit hyperactivi ty disorder 06/15/2018 History of bipolar disorder NOS 06/16/19 19 History of psychiatric disorders 019 Continuous Active and Recently Administ ered Medications (unrecognized section and content) Medication Order 12/25/2020 12/26/2020 12/27/2020 0.9 % sodium chloride infusion 1,000 mL, IntraVENous, at 125 mL/hr, Administer over 8 Hours, CONTINUOUS, Starting on 12/27/20 at 0915 1356 (New Bag - Prov ider: Danyel Mccormick, RN)1526 (Stopped - Provider: Masha Martinez RN) Care Teams (unrecognized sec tion and content) Team Status: Inactive Member Role Status Dates Berenice Haile APRN [employer]-C Attending Provider Act valery Team Status: Active Member Role Status Dates Berenice Haile APRN [employer]-C Primary Care Provider Active Team Status: Inactive Member Role Status Dates Berenice Haile APRN [employer]-C Attending Provider Act valery PHYSICIAN NO FAMILY Primary Care Provider Active Team Status: Inactive Member Role Status Dates Berenice Haile APRN [employer]-C Primary Care Provider Active Ladarius Pitts APRN Attending Provider Active Team Status: Active Member Role Status Dates Lola Montgomery APRN [employer]-C Primary Care Provider Active Team Status: Inactive Member Role Status Dates Johana Hansen NP-C Attending Provider Active Lola Montgomery APRN [employer]-C Primary Care Provider Active Steward/Stewardess Second Relationship Specialty Start Date End Date Berenice Haile APRN-[employer]ICER [address] [place] [address] PCP - General Nurse Practitioner 01/17/23 Steward/Stewardess Second Relationship Specialty Start Date End Date Berenice Haile APRN-JEREMIAS [address] [place] [address] PCP - General Nurse Practitioner 01/17/23 Steward/Stewardess Second Relationship Specialty Start Date End Date Berenice Haile NP [address] [place] [address] PCP - General Family Medicine 04/11/23 Steward/Stewardess Second Relationship Specialty Start Date End Date Berenice Haile NP [address] [place] [address] [place] [address] PCP - General Family Medicine 04/11/23 Steward/Stewardess Second Relationship Specialty Start Date End Date Berenice Haile APRN-[employer] OFFICER [address] [place] [address] PCP - General Nurse Practitioner 01/17/23 Steward/Stewardess Second Relationship Specialty Start Date End Date Berenice Haile APRN-[employer] OFFICER [address] [facility] [address] PCP - General Nurse Practitioner 01/17/23 Steward/Stewardess Second Relationship Specialty Start Date End Date Berenice Haile APRN-[employer] OFFICER [address] [place] [address] PCP - General Nurse Practitioner 01/17/23 Steward/Stewardess Second Relationship Specialty Start Date End Date Berenice Haile APRN-[employer] OFFICER [address] [place] [address] PCP - General Nurse Practitioner 01/17/23 Team Status: Inactive Member Role Status Dates Berenice Haile APRN [employer]ER-C Attending Provider Act valery Start: March 21, 2023 End: March 21, 2023 Team Status: Active Member Role Status Dates Lola Montgomery APRN [employer]-C Primary Care Provider Active Start: April 19, 2023 Jaimie Durand Attending Provider Active Start: April 19, 2023 Team Status: Active Member Role Status Dates Berenice Haile APRN [employer]ICER-C Primary Care Provider Active Start: April 282023 Jaimie Durand Attending Provider Active Start: April 28, 2023 Team Status: Inactive Member Role Status Dates Berenice Haile APRN [employer]ICER-C Primary Care Provider, Attending Provider Active Start: May 26, 2023 End: May 26, 2023 Steward/Stewardess Second Relationship Specialty Start Date End Date Berenice Haile APRN-[employer] OFFICER [address] [facility] [place] [address] PCP - General Nurse Practitioner 01/17/23 Steward/Stewardess Second Relationship Specialty Start Date End Date Berenice Haile APRN-NP [address] [facility] [place] [address] PCP - General Nurse Practitioner 01/17/23 05/31/23 Team Status: Active Member Role Status Dates Lola Montgomery APRN [employer]-C Primary Care Provider Active Start: April 19, 2023 Jaimie Durand LPN Attending Provider Active S tart: April 19, 2023 Team Status: Active Member Role Status Dates Berenice Haile APRN [employer]ICER-C Primary Care Provider Active Start: April 282023 Jaimie Durand LPN Attending Provider Active S tart: April 28, 2023 Team Status: Inactive Member Role Status Dates Berenice Haile APRN [employer]-C Primary Care Provider Active Start: June 15, 2023 End: June 15, 2023 Nazario Torres DO Emergency Provider Active Start: June 15, 2023 End: June 15, 2023 Goals (unrecognized section and content) Goals may be documented in a n alternate section FOR RECORDS PERTAINING TO PATIENTS WHO ARE OR HAVE BEEN ENROLLED IN A CHEMICAL DEPENDENCY/SUBSTANCEABUSE PROGRAM, SOME INFORMATION MAY BE OMITTED. This clinical summary was aggregated from multiple sources. Caution should be exercised in using it in the provision of clinical care. This summary normalizes information from multiple sources, and as a consequence, information in this document may materially change the coding, format and clinical context of patient data. In addition, data may be omitted in some cases. CLINICAL DECISIONS SHOULD BE BASED ON THE PRIMARY CLINICAL RECORDS. [facility]. provides no warranty or guarantee of the accuracy or completeness of information in this document.
[2023-08-18 11:09] LABS: Age Gdln ACOG Testing Note (.); HPV Aptima Negative (Negative); IGP, Aptima HPV, rfx 16/18,45 Note (.)
== END 2023-08-15 20:54 | disposition home or self-care (01) ==
LOC: LAB 20:53
PROVIDERS: PCP Nurse Practitioner Family; Visit Provider Obstetrics & Gynecology
DX: Z01.419 Encounter for gynecological examination (general) (routine) without abnormal findings (principal)
CPT/HCPCS: 87624; 88175

== ENCOUNTER 2023-09-18 20:56 | Emergency (ER) | payer MEDICAID, SELFPAY ==
[2023-09-18 21:01] VITALS: BP 112/75; PULSE 88; TEMP 36.6; O2SAT 99; BMI 25.1
--- NOTE | 2023-09-18 21:08 | PC.NURSE ---
PT STATES MIGRAINE SINCE TUESDAY AFTER MYELOGRAM. STATES HAS NOT HAD A MIGRAINE IN 7 MONTHS. TOOK IMITREX, TYLENOL, MOTRIN, ZOFRAN AT HOME WITHOUT RELIEF. PT IS SLURRING WORDS AT BEDSIDE. PHYSICIAN AWARE
--- NOTE | 2023-09-18 21:19 | ED.GENADUL1 ---
HPI HPI - General Adult General Chief complaint: Headache Stated complaint: HEADACHE Time Seen by Provider: 09/18/23 21:02 Source: patient Mode of arrival: walk-in History of Present Illness HPI narrative: This 38-year-old female with a history of migraine headaches who sees a neurologist and is on several medications for her migraines presents for evaluation of a migraine headache that started on Tuesday after she had a myelogram. The headache is a typical migraine for her. It is in the front of her forehead and goes to the back of her occiput. It is associated with nausea, photophobia and yesterday she had several episodes of vomiting. She has taken her medications without significant improvement. She denies any fever, chills neck pain or stiffness. She has no URI symptoms. She denies the possibility of Related Data Home Medications ?Medication ?Instructions ?Recorded ?Confirmed lisdexamfetamine 30 mg capsule 30 mg PO BID 11/02/22 12/03/22 (Vyvanse) pregabalin 225 mg capsule (Lyrica) 225 mg PO TID 11/02/22 12/03/22 tizanidine 4 mg capsule (Zanaflex) 4 mg PO BID PRN muscle spasticity 11/02/22 12/03/22 calcium carbonate 600 mg-vitamin 1 tab PO Q12H 11/09/22 12/03/22 D3 10 mcg (400 unit) tablet cyanocobalamin (vitamin B-12) 1,000 mcg subcut .monthly 11/09/22 12/03/22 1,000 mcg/mL injection solution eletriptan 40 mg tablet 40 mg PO .q12 H PRN migraine 11/09/22 12/03/22 headache multivitamin with folic acid 400 1 tab PO DAILY 11/09/22 11/09/22 mcg tablet (Daily-Raegan (with folic acid)) pantoprazole 40 mg tablet,delayed 40 mg PO .morning 11/09/22 12/03/22 release vitamin with calcium 1 tab PO .morning 11/09/22 12/03/22 no.72-iron 27 mg-folic acid 1 mg tablet (M-Myron Plus) topiramate 200 mg tablet 200 mg PO Q12H 11/09/22 12/03/22 valacyclovir 1 gram tablet 1,000 mg PO Q12H 11/09/22 12/03/22 vortioxetine 10 mg tablet 10 mg PO .morning 11/09/22 12/03/22 (Trintellix) Previous Rx's ?Medication ?Instructions ?Recorded ibuprofen 800 mg tablet 800 mg PO Q8H PRN pain 14 days #40 12/03/22 tabs ondansetron 4 mg disintegrating 4 mg PO Q8H 5 days #15 tabs 12/03/22 tablet valacyclovir 1 gram tablet 1,000 mg PO DAILY 30 days #30 tabs 12/03/22 (Valtrex) Allergies Allergy/AdvReac Type Severity Reaction Status Date / Time amoxicillin Allergy Severe Verified 11/09/22 10:28 cefaclor [From Ceclor] Allergy Severe Flushing Verified 11/09/22 10:28 Penicillins Allergy Verified 11/09/22 10:28 NSAIDS (Non-Steroidal AdvReac Severe Verified 11/09/22 10:29 Anti-Inflamma Opioid HPI Opioid Management Most Recent Opioid Data: Last Pain Scale 6 12/03/22 10:13 Ur Phencyclidine Scrn Negative (NEGATIVE) 12/03/22 12:10 Review of Systems ROS Status of ROS 10 or more systems reviewed and unremarkable except as noted in history and below [facility] Medical History (Updated 09/18/23 @ 22:30 by Kimi Rincon MD) Drug overdose ?T50.901A - Poisoning by unspecified drugs, medicaments and biological substances, accidental (unintentional), initial encounter (ICD-10) Hiatal hernia ?K44.9 - Diaphragmatic hernia without obstruction or gangrene (ICD-10) S/P extracorporeal shock wave therapy ?Z98.890 - Other specified postprocedural states (ICD-10) Multiple sclerosis ?G35 - Multiple sclerosis (ICD-10) Migraine ?G43.909 - Migraine, unspecified, not intractable, without status migrainosus (ICD-10) Attention deficit hyperactivity disorder ?F90.9 - Attention-deficit hyperactivity disorder, unspecified type (ICD-10) ADD (attention deficit disorder) ?F98.8 - Other specified behavioral and emotional disorders with onset usually occurring in childhood and adolescence (ICD-10) Kidney stones ?N20.0 - Calculus of kidney (ICD-10) GERD (gastroesophageal reflux disease) ?K21.9 - Gastro-esophageal reflux disease without esophagitis (ICD-10) Sleep apnea ?G47.30 - Sleep apnea, unspecified (ICD-10) Insomnia ?G47.00 - Insomnia, unspecified (ICD-10) PTSD (post-traumatic stress disorder) ?F43.10 - Post-traumatic stress disorder, unspecified (ICD-10) Panic attacks ?F41.0 - Panic disorder [episodic paroxysmal anxiety] (ICD-10) Anxiety ?F41.9 - Anxiety disorder, unspecified (ICD-10) Rheumatoid arthritis ?M06.9 - Rheumatoid arthritis, unspecified (ICD-10) Lupus ?M32.9 - Systemic lupus erythematosus, unspecified (ICD-10) Anemia ?D64.9 - Anemia, unspecified (ICD-10) Arthritis ?M19.90 - Unspecified osteoarthritis, unspecified site (ICD-10) Back pain ?M54.9 - Dorsalgia, unspecified (ICD-10) DDD (degenerative disc disease) Osteoarthritis ?M19.90 - Unspecified osteoarthritis, unspecified site (ICD-10) Neck pain ?M54.2 - Cervicalgia (ICD-10) Fibromyalgia ?M79.7 - Fibromyalgia (ICD-10) Fusion of spine ?M43.20 - Fusion of spine, site unspecified (ICD-10) Surgical History (Updated 11/09/22 @ 11:04 by Trixie Duvall) H/O ureteroscopy ?Z98.890 - Other specified postprocedural states (ICD-10) H/O bilateral breast reduction surgery ?Z98.890 - Other specified postprocedural states (ICD-10) History of cholecystectomy ?Z90.49 - Acquired absence of other specified parts of digestive tract (ICD-10) History of esophagogastroduodenoscopy (EGD) ?Z98.890 - Other specified postprocedural states (ICD-10) S/P epidural steroid injection ?Z92.241 - Personal history of systemic steroid therapy (ICD-10) History of spinal surgery ?Z98.890 - Other specified postprocedural states (ICD-10) History of gastric bypass ?Z98.84 - Bariatric surgery status (ICD-10) Family History (Updated 11/09/22 @ 11:21 by Trixie Duvall) Other Drug overdose Family history of MS (multiple sclerosis) Family history of diabetes mellitus Family history of emphysema Family history of hypertension Family history of myocardial infarction Family history of stroke Social History (Updated 11/09/22 @ 10:52 by Trixie Duvall) Within the past year, how often did you have a drink containing alcohol: never Score interpretation: A score less than 3 is consistent with normal alcohol consumption. Do you use any of these nicotine containing products: vaping products Nicotine containing products detail: mercy Non-prescribed substance use: denies use Previous occupational history: disabled Highest level of school completed/degree received: high school graduate Exam Narrative Exam Narrative: Vital signs and Nursing Notes reviewed: Patient is afebrile with a normal pulse, normal blood pressure, she is not hypoxic with pulse ox of 99% on room air General: Alert, nontoxic female resting on the bed in a dimly lit room, no respiratory distress, no active vomiting HEENT: Normocephalic atraumatic, mucous membranes are moist and pink, eyes are clear, normal conjunctiva, vision is grossly intact, mild photophobia appreciated Neck: Supple, no meningeal signs, no anterior or posterior cervical lymphadenopathy Chest: Lungs are clear to auscultation with good air entry, there is no wheezing rhonchi or rales appreciated no accessory muscle use, patient is speaking in complete sentences-no chest wall tenderness to palpation CVS: Regular rate and rhythm S1-S2, no murmurs rubs or gallops, pulses are brisk and equal bilaterally ABD: Soft, nondistended, nontender, no rebound guarding or rigidity, bowel sounds are normal, no pulsatile masses appreciated Extremities: Moving all extremities, no lower extremity tenderness or swelling noted, negative Homans' sign, pulses are brisk and equal bilaterally Skin: Normal in appearance without rash,pallor, petechiae or purpura Neuro: No focal deficits Constitutional Vital Signs, click to edit/add: Last Vital Signs Temp 97.9 F 09/18/23 21:01 Pulse 88 09/18/23 21:01 Resp 16 09/18/23 21:01 BP 112/75 09/18/23 21:01 Pulse Ox 99 09/18/23 21:01 O2 Del Method Room Air 09/18/23 21:01 Course Vital Signs Vital signs: Vital Signs Temperature 97.9 F 09/18/23 21:01 Pulse Rate 88 09/18/23 21:01 Respiratory Rate 16 09/18/23 21:01 Blood Pressure 112/75 09/18/23 21:01 Pulse Oximetry 99 09/18/23 21:01 Oxygen Delivery Method Room Air 09/18/23 21:01 Temperature 97.9 F 09/18/23 21:01 Pulse Rate 88 09/18/23 21:01 Respiratory Rate 16 09/18/23 21:01 Blood Pressure 112/75 09/18/23 21:01 Pulse Oximetry 99 09/18/23 21:01 Oxygen Delivery Method Room Air 09/18/23 21:01 Medical Decision Making [facility] Narrative Medical decision making narrative: This 38-year-old female presents for evaluation of a migraine headache. Is a typical migraine for her that did not respond to her usual migraine medications. She does have a history of IV drug use in the past. She does not appear to be on any Suboxone and has recently had prescriptions for Lyrica, Valium, Percocet, Vyvanse and is in pain management. She had a prescription for 42 Percocet prescribed on 08/16/2023 which she states are almost gone, she states she only has 3 left. She has nausea, vomiting, photophobia. She has not had any fever. Her neuroexam is normal. I had ordered IV medications for her with IM Phenergan but an IV was unable to be established and she was given IM Phenergan and IM Toradol. On reevaluation she is feeling somewhat better but not completely better and will be given an oral Percocet and discharged home. 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 I did review her [facility] report and she will not be prescribed any additional narcotics. Discharge Plan Discharge Stand Alone Forms: Portal Instructions Chief Complaint: Headache Clinical Impression: Migraine Patient Disposition: Home, Self-Care Prescriptions / Home Meds: No Action calcium carbonate-vitamin D3 600 mg-10 mcg (400 unit) tablet 1 tab PO Q12H cyanocobalamin (vitamin B-12) 1,000 mcg/mL solution 1,000 mcg subcut .monthly eletriptan 40 mg tablet 40 mg PO .q12 H PRN (Reason: migraine headache) multivitamin with folic acid [Daily-Raegan (with folic acid)] 400 mcg tablet 1 tab PO DAILY pantoprazole 40 mg tablet,delayed release (DR/EC) 40 mg PO .morning M-Myron Plus 27 mg iron- 1 mg tablet 1 tab PO .morning topiramate 200 mg tablet 200 mg PO Q12H valacyclovir 1 gram tablet 1,000 mg PO Q12H Trintellix 10 mg tablet 10 mg PO .morning valacyclovir [Valtrex] 1 gram tablet 1,000 mg PO DAILY 30 Days Qty: 30 0RF Rx Instructions: 3 refills ibuprofen 800 mg tablet 800 mg PO Q8H PRN (Reason: pain) 14 Days Qty: 40 0RF ondansetron 4 mg tablet,disintegrating 4 mg PO Q8H 5 Days Qty: 15 0RF lisdexamfetamine [Vyvanse] 30 mg capsule 30 mg PO BID tizanidine [Zanaflex] 4 mg capsule 4 mg PO BID PRN (Reason: muscle spasticity) pregabalin [Lyrica] 225 mg capsule 225 mg PO TID Print Language: Welsh Instructions: Migraine Headache (ED) Referrals: RITA MORRIS [Primary Care Provider] - 1 week
[2023-09-18] MEDS: KETOROLAC TROMETHAMINE 30 MG/ML VIAL IVP (21:43)
[2023-09-18] MEDS: PROMETHAZINE HCL 25 MG/ML VIAL 12.5 MG IM (21:43)
[2023-09-18] MEDS: OXYCODONE HCL/ACETAMINOPHEN 5MG/325MG 1 TAB PO (22:50)
== END 2023-09-18 22:58 | disposition home or self-care (01) ==
PROVIDERS: Emergency Provider Emergency Medicine; PCP Nurse Practitioner Family
DX: G43.909 Migraine, unspecified, not intractable, without status migrainosus (principal)
CPT/HCPCS: 96372; 96374; 99284; J1885; J2250

== ENCOUNTER 2023-10-02 14:43 | Emergency (ER) | payer MEDICAID, SELFPAY ==
[2023-10-02 14:47] VITALS: BP 103/72; PULSE 92; TEMP 36.7; O2SAT 98; BMI 23.9
--- OUTSIDE RECORDS SUMMARY | 2023-10-02 14:51 | XMS_ITS | CCD ---
Author Organization [facility] Care Team Providers Care College Associate Name Role Phone NOEMIRODRIGO ESPINALAN Unavailable Unavailable Katty, Rosana Unavailable Unavailable karthik Unavailable Unavailable Stiven, Allsion Unavailable Unavailable Sprout Unavailable Unavailable Unavailable Unavailable Unavailable Bahn Unavailable Unavailable Scott, Isidro Unavailable Unavailable Katty, Rosana Unavailable Unavailable BEBOS, ACHILLES Unavailable Unavailable Katty, Rosana Unavailable Unavailable Dontae, Anahi Unavailable Unavailable RATNASAMY, OZZIE A J Unavailable Unavail able Katty, Rosana Unavailable Unavailable Katty, Rosana Unavailable Unavailable Katty, Rosana Primary Care Physician Unavailab le karthik Unavailable Unavailable Stiven, Allsion Unavailable Unavailable Sprout Unavailable Unavailable Unavailable Unavailable Unavailable Bahn Unavailable Unavailable Scott, Isidro Unavailable Unavailable Katty, Rosana Unavailable Unavailable Katty, Rosana M Primary Care Provider Katty, Rosana Unavailable Katty, Rosana Primary Care Provider [phone] JENNIFER WHALEY Attending Unavailable ROSANA ALANIZ Primary Care Unavailable ROSANA ALANIZ Primary Care Unavailable WAYLON MONTOYA Attending Unavailable Raman Alanizee Primary Care Provider Rosana Alaniz CNP Primary Care Provider [phone] KATTY ROSANA Primary Care Unavailable KATTY, ROSANA Referring Unavailable ALEYDA GOMEZ Admitting Unavailable ALEYDA GOMEZ Attending Unavailable Katty ECHO TECHNOLOGIST - Rosana AREVALO Primary Care Provider Agus [place] Unavailable Jose Cruz Liz Unavailable ROSALIA ., DR SUTTON Admitting Unavailabl e KARASIK ., DR SUTTON Attending Unavailabl e AICHHOLZ, SPORT INTERN TERE Primary Care Unavailable KARASIK ., DR SUTTON Consulting Unavailabl e AICHHOLZ, SPORT INTERN TERE Admitting Unavailable AICHHOLZ, SPORT INTERN TERE Attending Unavailable AICHHOLZ, SPORT INTERN TERE Primary Care Unavailable AICHHOLZ, SPORT INTERN TERE Consulting Unavailable AICHHOLZ, SPORT INTERN TERE Admitting Unavailable AICHHOLZ, SPORT INTERN TERE Attending Unavailable AICHHOLZ, SPORT INTERN TERE Primary Care Unavailable AICHHOLZ, SPORT INTERN TERE Consulting Unavailable CASSY, DR Arthur Hansen Admitting Unavailable CASSY, DR Arthur Hansen Attending Unavailable AICHHOLZ, SPORT INTERN TERE Primary Care Unavailable BRIGIDA RAHMAN Attending Unavailable SILVESTRE PHIPPS Primary Care Unavailabl e Berenice Haile Unavailable GENOVEVA Haile Attending Provider GENOVEVA Haile Attending Provider NO FAMILY, PHYSICIAN Primary Care Provider Unava ilable GENOVEVA Haile Primary Care Provider GENOVEVA Pitts Attending Provider Ladarius Pitts Unavailable GENOVEVA Haile Primary Care Provider GENOVEVA Pitts Attending Provider EVANGELINA Hansen Attending Provider [phone] GENOVEVA Montgomery Primary Care Provider [phone] Berenice Dempsey Primary Care [facility] er Berenice Haile NP Primary Care Provider Berenice Dempsey Primary Care [facility] er GENOVEVA Haile Primary Care Provider DO Nazario Torres Emergency Provider Rohrbacher, Berenice Admitting Unavailable Rohrbacher, Berenice Attending Unavailable NO FAMILY, PHYSICIAN Primary Care Unavailable Ladarius Pitts Attending Unavailable Rohrbacher, Berenice Primary Care Unavailable Ladarius Pitts Admitting Unavailable Lola Montgomery Primary Care Unavailable Johana Hansen Admitting Unavailable Johana Hansen Attending Unavailable Rohrbacher, Berenice Primary Care Unavailable Nazario Torres Admitting Unavailable Nazario Torres Attending Unavailable ROHRBACHER, BERENICE Referring Unavailable ROHRBACHER, BERENICE Primary Care Unavailable ROHRBACHER, BERENICE Referring Unavailable ROHRBACHER, BERENICE Primary Care Unavailable ELAYNE LUCIANO Attending Unavailable AICHHOLZ, TERE J Referring Unavailable AICHHOLZ, TERE J Primary Care Unavailable ELAYNE LUCIANO Referring Unavailable AICHHOLZ, TERE J Primary Care Unavailable JASWANT HUSSEIN Attending Unavailable ROHRBACHER, BERENICE Referring Unavailable ROHRBACHER, BERENICE Primary Care Unavailable ANUP BUTLER Attending Unavailable ANUP BUTLER Referring Unavailable ROHRBACHER, BERENICE Primary Care Unavailable ANUP BUTLER Admitting Unavailable ANPU BUTLER Attending Unavailable ROHRBACHER, BERENICE Referring Unavailable ROHRBACHER, BERENICE Primary Care Unavailable LAITH BECK Attending Unavailable ROHRBACHER, BERENICE Primary Care Unavailable RENETTA ELIZALDE Attending Unavailable KAYLARBACHER, BERENICE Referring Unavailable ROHRBACHER, BERENICE Primary Care Unavailable KYLAH AMADO Attending Unavailable AICHHOLZ, TERE J Primary Care Unavailable KYLAH AMADO Attending Unavailable KYLAH AMADO Referring Unavailable AICHHOLZ, TERE J Primary Care Unavailable ANUP BUTLER Attending Unavailable ANUP BUTLRE Referring Unavailable AICHHOLZ, TERE J Primary Care Unavailable ANUP BUTLER E Admitting Unavailable ANUP BUTLER Attending Unavailable ANUP BUTLER Referring Unavailable AICHHOLZ, TERE J Primary Care Unavailable DECLAN MONK Attending Unavailable AICHHOLZ, TERE J Primary Care Unavailable KYLAH PADILLA Referring Unavailable AICHHOLZ, TERE J Primary Care Unavailable ELAYNE LUCIANO Referring Unavailable TERE GRISSOM Primary Care Unavailable ELAYNE LUCIANO Referring Unavailable TERE GRISSOM Primary Care Unavailable BERENICE HAILE Referring Unavailable BERENICE HAILE Primary Care Unavailable BLAKE COREA Attending Unavailable BLAKE COREA Attending Unavailable RENETTA PASTOR Attending Unavailable BLAKE COREA Attending Unavailable Allergies Allergy Classification Reported Allergen(s) Allergy Type Date of Onset Reaction(s) Facility Acetaminophen / Codeine (1 source) Acetaminophen / Codeine; Translations: [ACETAMINOPHEN-CODE INE] Drug Allergy 019 [facility] Cephalosporins (antibiotic) (3 sources) Cefaclor; Translations: [CEPHALOSPORINS] Drug Allergy [facility] NSAIDs (2 sources) NSAIDs; Translations: [IBUPROFEN] Drug Allergy 016 [facility] Opioid Agonists (2 sources) fentaNYL; Translations: [CODEINE] Drug Allergy 017 Fentanyl [facility] Penicillins (antibiotic) (7 sources) Penicillins; Translations: [AMOXICILLIN] Drug Allergy 015 Shock [facility] Sulfamethoxazole / Trimethoprim (1 source) Sulfamethoxazole / Trimethoprim Drug Allergy 020 Skin Rashes [facility] Work Phone: Unclassified (1 source) TYLENOL CODEINE #3; Translations: [TYLENOL CODEINE #3] Propensity to adverse reactions (disorder) [facility] (20 sources) amoxicillin; Translations: [amoxicillin] Drug Allergy 017 [facility], Unknown, Unknown Reaction [facility] Repository (20 sources) ampicillin; Translations: [Ampicillin] Drug Allergy [facility] (20 sources) Penicillins; Translations: [PENICILLINS] Allergy to substance (disorder) 013 Anaphylaxis, Shock, Hives, Rash [facility] (20 sources) Vespid (bees, hornets, wasps, yellow jackets); Translations: [Vespid (bees, hornets, wasps, yellow jackets)] Allergy to substance (disorder) [facility] (6 sources) -No Known Food Allergies Allergy to substance (disorder) [facility] (1 source) penicillin; Translations: [PENICILLIN] Drug Allergy 018 AOF [facility] Repository (4 sources) amoxicillin; Translations: [amoxicillin] Drug Allergy [facility] (4 sources) ampicillin; Translations: [Ampicillin] Drug Allergy [facility] (18 sources) Amoxicillin Drug Allergy 015 [facility] [place] [place] ([facility]) Cefaclor; Translations: [CEFACLOR] Drug Allergy 015 Hives, Other (See Comments), Anaphylaxis [place], [place] (20 sources) Codeine; Translations: [CODEINE] Drug Allergy 015 [facility] [place] [place] (16 sources) NSAIDs; Translations: [NSAIDS (Non-Steroidal Anti-Inflammatory Drug)] Allergy to substance 016 [facility] Repository (10 sources) fentaNYL Drug Allergy 020 Fentanyl [facility] Work Phone: (9 sources) Sulfamethoxazole / Trimethoprim Drug Allergy 020 Skin Rashes [facility] Work Phone: (16 sources) Cefaclor; Translations: [Ceclor] Drug Allergy 013 Unknown [facility] Repository (18 sources) Penicillin G Drug Allergy 018 Anaphylaxis, Rash, Unknown [facility] Other (2 sources) Amoxicillin Drug Allergy [facility] Rep[facility] (2 sources) Codeine Drug Allergy [facility] (3 sources) Acetaminophen; Translations: [acetaminophen] Drug Allergy Unknown Reaction [facility] (6 sources) Latex; Translations: [latex] Allergy to substance 01-04-2 022 Unknown Reaction, Rash [facility] (12 sources) Acetaminophen / Codeine; Translations: [ACETAMINOPHEN-CODE INE] Drug Allergy [facility] (2 sources) Non-steroidal anti-inflammatory agent Drug Allergy 023 [facility] (1 source) Amoxicillin Drug Allergy [facility] Repository (1 source) Cefaclor Drug Allergy [facility] Rep[facility] (1 source) Codeine Drug Allergy [facility] Rep[facility] (1 source) Penicillin Drug Allergy [facility] Rep[facility] Medications Current Medications Medication Drug [...] Probiotic Oral Capsule (2 sources) Start: 03-06-20 19 Advanced Probiotic Oral Capsule 03/06/2019 Provider: Rosana Alaniz CNP Alcohol Prep Pad (16 sources) Start: 05-06-19 Alcohol Prep Pad 05/05/2018 Provider: Alcohol Prep Pad (2 sources) Start: 05-06-19 Alcohol Prep Pad 05/05/2018 Provider: Alpha Lipoic [...] once daily at bedtime increased by dr obwie take 1 tablet by once daily at bedtime amitriptyline 50 mg [...] 02/04/2020 Provider: take 1 capsule by mo ut every twenty-four hours Adderall XR 20 MG 1 capsule in the morning Orally Once a day Not-Taking/PRN take 1 capsule by mo uth once daily in the morning amphetamine-dextroamphetamine (ADDERALL [...] Start: 12-09-2016 take 2 tablets by mo ut once daily, then take 1 tablet by [...] mg) tablet Active 600 MG PO Daily April 28, 2023 2:08pm Start: 10-20-2020 Calcium [...] 05/05/2018 Provider: Start: 04-01-2018 End: 02-04-2020 VRAYLAR MIS 04/01/2018 - Provider: Start: 04-01-2018 End: 04-01-2018 VRAYLAR MISC 04/01/2018 - Provider: Cassie oral chlorhexidine gluconate 40 m g/ml medicated [...] Start: 04-01-2018 End: 02-04-2020 CYPROHEPTADINE 4 MG MISC - 02/04/2020 Provider: Start: 04-01-2018 End: 04-01-2018 CYPROHEPTADINE 4 MG MISC - 04/01/2018 Provider: Start: 04-01-2018 End: 04-01-2018 CYPROHEPTADINE 4MG MISC 03/08 - 04/01/2018 Provider: take 1 tablet [...] 1% Tr ansdermal Gel 06/26/2019 Provider: Rosana Alaniz CNP Start: 06-26-2019 End: 07-04-2019 Voltaren 1% [...] MG Oral Tablet 07/10/2020 Provider: Rosana Alaniz SPORT INTERN Start: 05-24-2019 End: 07-16-2019 Doxycycline Hyclate 100 [...] 325 mg (65 M G IRO MISC 04/01/2018 - 02/04/2020 Provider: Start: 04-01-2018 End: 04-01-2018 FERROUS SULFATE 325 mg (65 M G IRO MISC 04/01/2018 - 04/01/2018 Provider: Start: 04-01-2018 End: 04-01-2018 FERROUS SULFATE 325 mg(65 MG IRO MISC 04/01/2018 - 04/01/2018 Provider: Start: 11-24-2017 take 1 tablet by enriqueta th once daily ferrous sulfate 325 mg (65 mg iron) oral tablet 11/24/2017 take 1 tablet (325 mg) by oral route once daily Start: 11-24-2017 End: 02-04-2020 FERROUS SULFATE 325 mg (65 M G IRO MISC 11/24/2017 - 02/04/2020 Provider: Start: 11-24-2017 End: 11-24-2017 FERROUS SULFATE 325 mg (65 M G IRO MISC 11/24/2017 - 11/24/2017 Provider: Start: 11-24-2017 End: 11-24-2017 FERROUS SULFATE 325 mg(65 MG IRO MISC 11/24/2017 - 11/24/2017 Provider: take 1 tablet by enriqueta th once daily ferrous sulfate 325 mg (65 mg iron) oral tablet take 1 tablet (325 mg) by oral route once daily Fiber (14 sources) Fiber Active Flash Glucose Scanning Henderson (Freestyle Vy 2 Henderson) misc (2 sources) Start: 04-28-2023 Flash Glucose Scanning [place] (Fre[facility] Vy 2 [place]) [facility] .Route 1 April 28, 2023 [...] 02/04/2020 Provider: take 1 tablet by enriqueta th once daily furosemide (LASIX) 40 MG tablet Take 40 mg by mouth daily 0 Active Glucometer Device (3 sources) Start: 01-12-2024 Glucometer Device as directed as directed as [...] 03-29-2017 End: 07-10-2020 Mupirocin 2% EX OINT - 02/04/2020 Provider: naloxone hydrochloride 40 mg/ml [...] IN 24 HOURS 0 05/25/2021 Active nystatin 547905 unt/ml / triamcinolone acetonide 1 mg/ml topical cream (20 sources) Polyene Antifungal, Corticosteroid Start: 11-20-2018 End: 02-20-2019 Nystatin-Triamcin olone 180003-4.1 UNIT/GM-% External Cream 02/20/2019 Provider: Rosana Alaniz [...] Start: 04-01-2018 End: 02-04-2020 ONDANSETRON 4 mg [facility] 2018 - 02/04/2020 Provider: Start: 04-01-2018 End: 04-01-2018 ONDANSETRON 4 mg [facility] 2018 - 04/01/2018 Provider: take 1 tablet [...] 04-01-2018 End: 02-04-2020 POTASSIUM CHLORIDE 20 mEq [place] 04/01/2018 - 02/04/2020 Provider: Start: 04-01-2018 End: 04-01-2018 POTASSIUM CHLORIDE 20 mEq [place] 04/01/2018 - 04/01/2018 Provider: Start: 07-14-2017 End: 02-04-2020 POTASSIUM CHLORIDE 20 mEq [place] SC 07/14/2017 - 02/04/2020 Provider: Start: 07-14-2017 End: 07-14-2017 POTASSIUM CHLORIDE 20 mEq [place] 07/14/2017 - 07/14/2017 Provider: Start: 07-14-2017 [...] Start: 04-01-2018 End: 02-04-2020 LYRICA 225 MG MISC - 02/04/2020 Provider: Start: 04-01-2018 End: 04-01-2018 LYRICA 225 MG MISC - 04/01/2018 Provider: Start: 04-01-2018 End: 04-01-2018 LYRICA 225MG MISC 04/01/2018 - 04/01/2018 Provider: take 1 [...] tablet (2 sources) Start: 10-21-19 End: 10-20-19 24 take 1 tablet by mouth in the [...] Start: 08-16-2017 End: 02-04-2020 VALACYCLOVIR 500 mg [facility] 02/2018 - 02/04/2020 Provider: Start: 08-16-2017 End: 08-16-2017 VALACYCLOVIR 500 mg [facility] 02/2018 - 08/16/2017 Provider: Start: 04-24-2016 End: [...] End: 04-01-2018 CYANOCOBALAMIN (VITAMIN B-12 ) 1,000MCG/ML [facility] 04/01/2018 - 04/01/2018 Provider: Start: 02-16-2018 take 1 mL by intramu scular injection every month cyanocobalamin (vitamin B-12) 1,000 mcg/mL injection solution 02/16/2018 inject 1 milliliter (1,000 mcg) by intramuscular route once a month Start: 02-16-2018 End: 02-16-2018 CYANOCOBALAMIN (VITAMIN B-12 ) 1,000MCG/ML [facility] 02/16/2018 - 02/16/2018 Provider: Start: 12-22-2017 End: [...] End: 02-21-2018 Zinc 50 MG OR TABS 02/21/2018 Provider: Start: 02-21-2018 End: 02-21-2018 Zinc 50MG OR TABS 02/21/2018 - 02/21/2018 Provider: Completed/Discontinued Medications Medication Drug Class(es) Dates Sig (Normalized) Sig (Original) Acetaminophen / butalbital / Caffeine (20 sources) Barbiturate, Central Nervous System Stimulant, Methylxanthine Start: 04-01-2018 End: 02-04-2020 FIORICET 50-300-40 MG [facility] 04/01/2018 - 02/04/2020 Provider: Start: 04-01-2018 End: 04-01-2018 FIORICET 50-300-40 MG [facility] 04/01/2018 - 04/01/2018 Provider: Start: 04-01-2018 End: 04-01-2018 FIORICET 50-300-40MG [facility] 04/01/2018 - 04/01/2018 Provider: take 1 tablet by enriqueta th twice daily as needed for headache sdrltslzbm-dqbyaswcwpcfg-yurcqedy (FIORICET, ESGIC) 50-325-40 MG per tablet Take [...] MG OR TABS 04/01/2018 - 02/04/2020 Provider: Modesto Laguerre Baclofen Active End: 11-24-2017 take 1 tablet [...] oral solution (17 sources) alpha-Adrenergic Agonist, Uncompetitive M-wdgfxi-S-aspartate Receptor Antagonist, Sigma-1 Agonist Start: 03-29-2017 take [...] 08-18-2017 BROMFED DM 2-30-10 MG/5 ML [facility] 08/18/2017 - 08/18/2017 Provider: Start: 08-18-2017 End: 08-18-2017 BROMFED DM 2-30-10MG/5 ML [place] 08/18/2017 - 08/18/2017 Provider: Start: 03-29-2017 End: 02-04-2020 BROMFED DM 2-30-10 MG/5 ML [facility] 03/29/2017 - 02/04/2020 Provider: Start: 03-29-2017 End: 03-29-2017 BROMFED DM 2-30-10 MG/5 ML [facility] 03/29/2017 - 03/29/2017 Provider: Start: 03-29-2017 End: 03-29-2017 BROMFED DM 2-30-10MG/5 ML [facility] 03/29/2017 - 03/29/2017 Provider: Start: 01-06-2017 End: 02-04-2020 BROMFED DM 2-30-10 MG/5 ML [facility] 01/06/2017 - 02/04/2020 Provider: Start: 01-06-2017 End: 01-06-2017 BROMFED DM 2-30-10 MG/5 ML [facility] 01/06/2017 - 01/06/2017 Provider: Start: 01-06-2017 End: 01-06-2017 BROMFED DM 2-30-10MG/5 ML [facility] 01/06/2017 - 01/06/2017 Provider: Calcium (20 sources) Phosphate Binder, Calcium Start: 03-08-2019 End: 10-20-2020 Calcium 600 600 MG Oral Tablet 03/08/2019 - 10/20/2020 Provider: Rosana Alaniz SPORT INTERN Start: 03-08-2019 Calcium 600 60 0 MG Oral Tablet 03/08/2019 Provider: Rosana Alaniz SPORT INTERN Start: 05-05-2018 End: 02-20-2019 Calcium 600 Oral Tablet 0303/2018 - 02/20/2019 Provider: Start: 05-05-2018 Calcium 600 Or al Tablet 05/05/2018 Provider: Calcium + D Acti ve CALCIUM 600 WITH VITAMIN D3 600 mg(1,500mg) -400 UNIT MISC (20 sources) Start: 04-01-2018 End: 04-01-2018 CALCIUM 600 WITH VITAMIN D3 600 mg(1,500mg) -400 UNIT MISC 04/01/2018 - 04/01/2018 Provider: Start: 11-24-2017 End: 11-24-2017 CALCIUM 600 WITH VITAMIN D3 600 mg(1,500mg) -400 UNIT [facility] 11/24/2017 - 11/24/2017 Provider: CALCIUM 600 WITH VITAMIN D3 600 mg(1,500mg) -400 UNIT MIS (4 sources) Start: 04-01-2018 End: 02-04-2020 CALCIUM 600 WITH VITAMIN D3 600 mg(1,500mg) -400 UNIT [facility] 04/01/2018 - 02/04/2020 Provider: Start: 11-24-2017 End: 02-04-2020 CALCIUM 600 WITH VITAMIN D3 600 mg(1,500mg) -400 UNIT [facility] 11/24/2017 - 02/04/2020 Provider: CALCIUM 600 WITH VITAMIN D3 600 mg(1,500mg)-400 UNIT [facility] (6 sources) Start: 04-01-2018 End: 04-01-2018 CALCIUM 600 WITH VITAMIN D3 600 mg(1,500mg)-400 UNIT [facility] 04/01/2018 - 04/01/2018 Provider: Start: 11-24-2017 End: 11-24-2017 CALCIUM 600 WITH VITAMIN D3 600 mg(1,500mg)-400 UNIT [facility] 11/24/2017 - 11/24/2017 Provider: calcium carbonate 1500 [...] Start: 08-16-2017 End: 02-04-2020 ZYRTEC 10 mg MISC 08/16/2017 - 02/04/2020 Provider: Start: 08-16-2017 End: 08-16-2017 ZYRTEC 10 mg MISC 08/16/2017 - 08/16/2017 Provider: Clindamycin (20 sources) Lincosamide Antibacterial Start: 04-01-2018 End: 02-04-2020 CLINDAMYCIN HCL 300 MG MISC 04/01/2018 - 02/04/2020 Provider: Start: 04-01-2018 End: 04-01-2018 CLINDAMYCIN HCL 300 MG MISC 04/01/2018 - 04/01/2018 Provider: Start: 04-01-2018 End: 04-01-2018 CLINDAMYCIN HCL 300MG MISC 04/01/2018 - 04/01/2018 Provider: take 1 capsule by mo [facility] four times daily clindamycin HCl 300 mg [...] 04-01-2018 End: 04-01-2018 COL-RITE 100 MG MISC - 04/01/2018 Provider: COL-RITE 100 MG MISC [...] m g take 1 tablet by enriqueta th every eight hours as needed for anxiety [...] Start: 04-01-2018 End: 02-04-2020 DULOXETINE 60 MG [facility] 04/01/2018 - 02/04/2020 Provider: Start: 04-01-2018 End: 04-01-2018 DULOXETINE 60 MG MIS 2018 - 04/01/2018 Provider: Start: 04-01-2018 End: 04-01-2018 DULOXETINE 60MG MIS 019 - 04/01/2018 Provider: take 1 capsule by mo [facility] once daily duloxetine 60 mg oral capsule,delayed release(DR/EC) take 1 capsule (60 mg) by oral route once daily eletriptan 40 mg oral tablet (20 sources) Serotonin-1b and Serotonin-1d Receptor Agonist Start: 09-11-2018 End: 10-25-2019 Eletriptan Hydrobromide 40 MG Oral Tablet 10/08/2019 - 10/25/2019 Provider: Rosana Alaniz SPORT INTERN 2 ml fentaNYL 0.05 mg/ml injection (3 [...] Provider: Conversion Provider take 1 tablet by enriqueta four times daily as needed hydroxyzine HCl [...] 15 mg take 1 tablet by enriqueta every six hours as needed for pain ketorolac (TORADOL) 10 MG tablet Take 10 mg by mouth every 6 hours as needed for Pain. 0 Active lactobacillus acidophilus [id number] unt oral capsule (9 sources) Start: 02-16-2018 take 1 capsule by mouth once daily Probiotic 10 billion cell oral capsule 02/16/2018 take 1 capsule by oral route daily Start: 02-01-2017 take 1 capsule by mo [facility] once daily Probiotic 10 billion cell oral capsule 02/01/2017 take 1 capsule by oral route daily loperamide hydrochloride 2 mg oral tablet (20 sources) Opioid Agonist Start: 01-06-2017 End: 02-04-2020 Imodium A-D 2 MG OR TABS 01/06/2017 - 02/04/2020 Provider: MAXALT-BOW MAKER GIFT WRAPPING 10 MG MISC (20 sources) Start: 01-25-2018 End: 01-25-2018 MAXALT-BOW MAKER GIFT WRAPPING 10 MG MISC 01/25/2018 - 01/25/2018 Provider: Start: 08-16-2017 End: 08-16-2017 MAXALT-BOW MAKER GIFT WRAPPING 10 MG MISC 2017 - 08/16/2017 Provider: Start: 05-20-2017 End: 05-20-2017 MAXALT-BOW MAKER GIFT WRAPPING 10 MG MISC 2017 - 05/20/2017 Provider: Start: 02-01-2017 End: 02-01-2017 MAXALT-BOW MAKER GIFT WRAPPING 10 MG MISC 2016 - 02/01/2017 Provider: MAXALT-BOW MAKER GIFT WRAPPING 10 MG MISC (10 sources) Start: 01-25-2018 End: 02-04-2020 MAXALT-BOW MAKER GIFT WRAPPING 10 MG MISC 2017 - 02/04/2020 Provider: Start: 08-16-2017 End: 02-04-2020 MAXALT-BOW MAKER GIFT WRAPPING 10 MG MISC 2017 - 02/04/2020 Provider: Start: 05-20-2017 End: 02-04-2020 MAXALT-BOW MAKER GIFT WRAPPING 10 MG MISC 2017 - 02/04/2020 Provider: Start: 02-01-2017 End: 02-04-2020 MAXALT-BOW MAKER GIFT WRAPPING 10 MG MISC 2016 - 02/04/2020 Provider: MAXALT-BOW MAKER GIFT WRAPPING 10MG MISC (15 sources) Start: 01-25-2018 End: 01-25-2018 MAXALT-BOW MAKER GIFT WRAPPING 10MG MISC 018 - 01/25/2018 Provider: Start: 08-16-2017 End: 08-16-2017 MAXALT-BOW MAKER GIFT WRAPPING 10MG MISC 018 - 08/16/2017 Provider: Start: 05-20-2017 End: 05-20-2017 MAXALT-BOW MAKER GIFT WRAPPING 10MG MISC 018 - 05/20/2017 Provider: Start: 02-01-2017 End: 02-01-2017 MAXALT-BOW MAKER GIFT WRAPPING 10MG MISC 017 - 02/01/2017 Provider: Medical Compression Stocking s Miscellaneous (11 sources) Start: 01-04-2019 End: 02-03-2019 Medical Compression Stockings Miscellaneous 01/04/2019 - 02/03/2019 Provider: Primitivo Lujan CNP Medical Compression Stocking s Miscellaneous (2 sources) Start: 01-04-2019 End: 02-03-2019 Medical Compression Stockings Miscellaneous 01/04/2019 - 02/03/2019 Provider: Primitivo Lujan CNP 1 ml medroxyPROGESTERone acetate 150 mg/ml injection (20 sources) Progestin Start: 05-05-2018 Depo-Provera 1 50 MG/ML IM SUSP 01/04/2019 Primitivo Lujan CNP Start: 04-01-2018 End: 02-04-2020 DEPO-PROVERA MISC 04/01/2018 - 02/04/2020 Provider: Start: 04-01-2018 End: 04-01-2018 DEPO-PROVERA MISC 04/01/2018 - 04/01/2018 Provider: Carltono-Provera int ramuscular methocarbamol 500 mg oral tablet [...] 07/16/2019 Provider: Rosana Alaniz CNP polymyxin b 80931 unt/ml / trimethoprim 1 mg/ml ophthalmic solution [...] - 02/04/2020 Provider: PROBIOTIC 10 billion CELL TN SC (20 sources) Start: 02-16-2018 End: 02-16-2018 PROBIOTIC 10 billion CELL MISC 02/16/2018 - 02/16/2018 Provider: Start: 02-01-2017 End: 02-01-2017 PROBIOTIC 10 billion CELL TN SC 02/01/2017 - 02/01/2017 Provider: PROBIOTIC 10 billion CELL TN SC (4 sources) Start: 02-16-2018 End: 02-04-2020 PROBIOTIC 10 billion CELL TN SC 02/16/2018 - 02/04/2020 Provider: Start: 02-01-2017 End: 02-04-2020 PROBIOTIC 10 billion CELL [place] SC 02/01/2017 - 02/04/2020 Provider: PROBIOTIC 10 [...] 11-24-2017 End: 02-04-2020 PROMETHAZINE 25 MG MISC 11/06 - 02/04/2020 Provider: Start: 11-24-2017 End: 11-24-2017 PROMETHAZINE 25 MG [facility] 11/06 - 11/24/2017 Provider: Start: 11-24-2017 End: 11-24-2017 PROMETHAZINE 25MG [facility] 11/24 - 11/24/2017 Provider: take 1 tablet by enriqueta every six hours as needed promethazine 25 [...] CNP Start: 05-05-2018 take 1 capsule by mo [facility] every twenty-four hours Propranolol HCl ER 160MG Oral Capsule Extended Release 24 Hour 05/05/2018 Provider: Start: 04-01-2018 End: 02-04-2020 PROPRANOLOL 160 MG [facility] 04/01/2018 - 02/04/2020 Provider: Start: 04-01-2018 End: 04-01-2018 PROPRANOLOL 160 MG [facility] 04/01/2018 - 04/01/2018 Provider: Start: 04-01-2018 End: 04-01-2018 PROPRANOLOL 160MG [facility] 04/01 - 04/01/2018 Provider: Start: 11-24-2017 take 1 capsule by mouth once d aily propranolol 160 mg oral capsule,extended release 24 hr 11/24/2017 take 1 capsule (160 mg) by oral route once daily Start: 11-24-2017 End: 02-04-2020 PROPRANOLOL 160 [facility] 11/24/2017 - 02/04/2020 Provider: Start: 11-24-2017 End: 11-24-2017 PROPRANOLOL 160 MG [facility] 11/24/2017 - 11/24/2017 Provider: Start: 11-24-2017 End: 11-24-2017 PROPRANOLOL 160MG [facility] 11/24 - 11/24/2017 Provider: Start: 05-26-2017 take 1 capsule by mouth once d aily propranolol 160 mg oral capsule,extended release 24 hr 05/26/2017 take 1 capsule (160 mg) by oral route once daily Start: 05-26-2017 End: 02-04-2020 PROPRANOLOL 160 MG [facility] 05/26/2017 - 02/04/2020 Provider: Start: 05-26-2017 End: 05-26-2017 PROPRANOLOL 160 MG [facility] 05/26/2017 - 05/26/2017 Provider: Start: 05-26-2017 End: 05-26-2017 PROPRANOLOL 160MG [facility] 05/26 - 05/26/2017 Provider: take 1 tablet [...] 01/21/2019 Provider: Rosana Alaniz CNP Start: 01-25-2018 Maxalt-BOW MAKER GIFT WRAPPING 10 mg oral tablet,disintegrating 01/25/2018 DISSOLVE 1 TABLET (10 MG) ON TOP OF THE TONGUE, THEN SWALLOW BY ORAL ROUTE ONCE, MAY REPEAT IN 2 HOURS, NOT AT SAME TIME IMITREX Start: 08-16-2017 Maxalt-BOW MA[employer] GIFT WRAPPING 10 mg oral tablet,disintegrating 08/16/2017 dissolve 1 tablet (10 mg) on top of the tongue, then swallow by oral route once, may repeat in 2 hours, not at same time as imitrex Start: 08-16-2017 Maxalt-BOW [employer] G[employer] WRAPPING 10 mg oral tablet,disintegrating 08/16/2017 dissolve 1 [...] Start: 09-22-2022 take 1 tablet by enriqueta th every twelve hours Sulfamethoxazole-Trimethoprim 800-160 MG 1 [...] degree of chest wall, subsequent encounter Episodic Contraceptive and procreative management (20 sources) [...] Translations: [Vitamin D deficiency] Onset: 2 Chronic Open wounds of head; neck; and trunk [...] specified postprocedural states Episodic Residual codes; unclassified (2 sources) History of sleeve gastrectomy; Translations: [Acquired absence of stomach [part of]] Episodic Residual codes; unclassified (1 source) Acquired absence of stomach [part of] Episodic Residual codes; unclassified (2 sources) Insomnia; Translations: [Insomnia, unspecified] 05-26-2023 Episodic Residual codes; unclassified (1 source) Altered [...] Thoracic and lumbosacral neuritis; Translations: [Sciatica] Onset: 5 04-30-2014 Episodic Spondylosis; intervertebral disc disorders; other back problems (1 source) Herniation of nucleus pulposus of lumbar intervertebral disc; Translations: [Herniated intervertebral disc of lumbar spine] Substance-related disorders (12 sources) Substance abuse; Translations: [Other psychoactive substance abuse, uncomplicated] Onset: 2 Chronic Systemic lupus erythematosus and connective tissue disorders [...] of left breast, subsequent encounter] Onset: 3 Unclassified (2 sources) Low back pain, unspecified; Translations: [Low back pain, unspecified] Onset: 3 Urinary tract infections (8 sources) Recurrent urinary tract infection; Translations: [Urinary tract infection, site not specified] 06-24-2016 Episodic Past or Other Problems Problem Classification Problem Date Documented Da te Episodic/Chronic Administrative/social admission (8 sources) Other reasons for seeking consultation Onset: 12-09-2016 Episodic Calculus of urinary tract (8 sources) Kidney stone; Translations: [Calculus of kidney] Onset: 04-27-2016 05-24-2022 Episodic Coma; stupor; and brain damage (1 source) Unresponsive Onset: 06-01-2023 Episodic Complications of surgical procedures or medical [...] Candidiasis of unspecified site Onset: 01-06-2017 Episodic Nutritional deficiencies (20 sources) Other B-complex deficiencies; Translations: [Deficiency of other specified B group vitamins] Onset: 02-22-2017 Episodic Open wounds of extremities (14 sources) Open wound of hand with complication; Translations: [Open bite, unspecified lower leg, initial encounter] Onset: 06-15-2018 Episodic Other eye disorders (8 sources) Pain [...] CONDITION] Onset: 08-12-2021 Episodic Residual codes; unclassified (3 sources) Localized edema; Translations: [Localized edema] Onset: 04-11-2023 Episodic Residual codes; unclassified (8 sources) History of clinical finding in subject; Translations: [Personal history of other specified conditions] Onset: 08-24-2021 08-24-2021 Episodic Residual codes; unclassified (2 sources) Altered mental status, unspecified; Translations: [Altered mental status, unspecified] Onset: 06-01-2023 Episodic Residual codes; unclassified (1 source) Pain, unspecified; Translations: [Pain, unspecified] Onset: 03-02-2023 Episodic Residual codes; unclassified (1 source) Transient alteration of awareness; Translations: [Transient alteration of awareness] Onset: 06-01-2023 Episodic Substance-related disorders (2 sources) Accidental heroin overdose; Translations: [Other psychoactive substance use, unspecified with intoxication, unspecified] Onset: 06-01-2023 Episodic Unclassified (20 sources) Body Mass Index [...] Test Name Value Interpretation Reference Range Facility CREATININEon 09-15-2023 Creatinine [Mass/Vol] 0.68 mg/dL Normal 0.40-1.00 [facility] Comment on above: Result Comment: METH OD TRACEABLE TO IDMS STANDARD Performed By: #### C TRAVIS, CMP, 44186-2, 3016-3, 46547-9, 9 #### [facility] ([id number]) [address], [address] [place] [address] eGFR (CKD-EPI) NON-RACE DEPENDENT >90 Normal >59 [facility] Comment on above: Result Comment: Reported eGFR is based on the CKD-EPI 2020 equation that does not use a race coefficient. Performed By: #### C BCA, CMP, 68192-5, 3016-3, 52488-8, 9 #### [facility] ([id number]) [address] [place] [address] CT CERVICAL SPINE W CONTon 0 09-15-2023 CT CERVICAL SPINE W CONT CT CERVICAL SPINE W CONT CLINICAL HISTORY: Arm numbness and weakness. TECHNIQUE: Spiral CT of the cervical spine was performed after the intrathecal injection of 15 mL Omnipaque 240 contrast material. Sagittal and coronal reformatted imaging was performed. All CT scans at this facility use dose modulation, iterative reconstruction, and/or weight based dosing when appropriate to reduce radiation dose to as low as reasonably achievable. COMPARISONS: None FINDINGS: Changes of decompressive suboccipital craniectomy are present. At the C6-C7 level there is a small central disc protrusion. This approaches the ventral aspect of the cord and touches the ventral cord, however there is ample CSF dorsal to the cord, i.e. no high-grade spinal stenosis. The C2-C3, C3-C4, C4-C5 and C5-C6 levels are unremarkable. The C7-T1 level is unremarkable. There is no posterior disc herniation, spinal stenosis, nor neural foraminal narrowing at these levels. There is no intradural mass. Cervical medullary junction is unremarkable with no evidence for compression upon the cerebellar tonsils. No acute fracture. No destructive bone lesion. Lung apices appear unremarkable. IMPRESSION: 1. Small central disc protrusion without high-grade spinal stenosis at C6-C7. 2. Otherwise unremarkable exam. 3. Changes of uncomplicated decompressive suboccipital craniectomy. Finalized by Kylah Padilla MD on 09/15/2023 1:31 PM [facility] L[facility] SPINE W CONTon CT LUMBAR SPINE W CONT CT LUMBAR SPINE W CONT CLINICAL HISTORY: History of lumbosacral surgery. Back pain, foot drop. TECHNIQUE: Spiral CT of the lumbar spine was performed after the intrathecal injection of 15 mL Omnipaque 240 contrast material. Sagittal and coronal reformatted imaging was performed. All CT scans at this facility use dose modulation, iterative reconstruction, and/or weight based dosing when appropriate to reduce radiation dose to as low as reasonably achievable. COMPARISONS: 07/15/2021. 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 At the L4-L5 level there is now widening of the right-sided facet joint when compared with the prior exam.. Osteophytes involving the medial aspect of the right L4-L5 facet joints indent the right side of the spinal canal. Additionally there is some minimal posterior broad-based disc bulging however these findings do not result in high-grade spinal stenosis. There is minimal narrowing of the dorsal lateral aspect of the spinal canal on the left from small portion of residual lamina from the left side. There is mild bilateral neural foraminal narrowing. Patient has undergone unilateral right sided bilateral pedicle screw and posterior bladimir fusion at L5-S1 with laminectomy and prosthetic disc material. Spinal canal is widely patent. There is mild to moderate left-sided neural foraminal narrowing. Evaluation of the right-sided neural foramen is somewhat limited due to beam hardening and streak artifact from adjacent pedicle screws, posterior rods, and disc hardware, however no bony spinal stenosis is identified on the right side. There is no intradural mass. Conus appears within normal limits in morphology and position. IMPRESSION: 1. Interval changes of laminectomy and fusion L5-S1. 2. New widening of the right-sided facet joint at L4-L5. There is mild bilateral neural foraminal narrowing bilaterally. There is also some dorsal indentation on the left side of the thecal sac due to what appears to be some remnant lamina, yet these findings do not result in high-grade spinal stenosis. 3. Mild to moderate left-sided neural foraminal narrowing at L5-S1. Finalized by Kylah Padilla MD on 09/15/2023 1:26 PM [facility] IR MYELOGRAM 2+ REGIONS COMP Bernardo 09-15-2023 IR MYELOGRAM 2+ REGIONS COMPLETE IR MYELOGRAM 2+ REGIONS COMPLETE Clinical history: History of lumbosacral surgery and Chiari I surgery. Lower extremity pain, dropped foot. Left arm numbness and weakness. Consent: The risks, benefits, and alternatives of the procedure were discussed with the patient. All questions were answered. Informed consent was obtained. Reference Air Kerma: 15.70 mGy. All elements of maximum sterile barrier technique and cutaneous antisepsis were utilized throughout this procedure. [place] protocol timeout verification performed. Procedure: The patient was placed in the prone position and the back was prepped and draped in the usual sterile fashion using 1% lidocaine for local anesthesia. Direct fluoroscopic guidance was used to advance a number 22-gauge spinal needle into the thecal sac at the L1-L2 level. Upon return of clear CSF 15 mL Omnipaque 240 contrast material were injected without difficulty under fluoroscopic guidance and the needle was removed. Conventional spot digital myelographic images of the lumbar spine were then obtained. Contrast column was manipulated into the cervical region and conventional spot digital cervical myelographic images of the cervical spine were obtained. She tolerated this well without immediate complications and was transferred to the recovery area in good condition. FINDINGS: Cervical spine: Given the lack of oblique imaging in this fluoroscopy unit, evaluation of spinal stenoses within the cervical spine is not readily identified. See separately dictated CT cervical spine report for complete discussion of cervical spine and post myelographic CT findings. Lumbar spine: Patient is status post laminectomy and fusion at L5-S1. 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 No high-grade lumbar spine stenosis is identified within the visualized contrast opacified portions of the lumbar spine. See separately dictated post myelogram CT lumbar spine report to follow. IMPRESSION: 1. Cervical myelography and lumbar myelography as above. See separately dictated post myelogram CT lumbar spine and cervical spine to follow. Finalized by Kylah Padilla MD on 09/15/2023 1:05 PM Normal [facility] PLATELET COUNT AND MPVon Platelet mean volume (Bld) [Entitic vol] 8.0 fL Normal 7-12 [facility] Comment on above: Performed By: #### C TRAVIS, GALILEO, 39985-7, 3016-3, 50638-3, 2131-11 #### [facility] ([id number]) [address], [address] [place] [address] Platelets (Bld) [#/Vol] 262 10*3/uL Normal 150-450 [facility] Comment on above: Performed By: #### C GALILEO ROBLES, 17764-0, 3016-3, 39911-9, 2131-11 #### [facility] ([id number]) [address], [address] [place] [address] PROTIME AND INRon 09-15-2023 INR Coag (PPP) [Relative time] 1.1 {INR} Normal 0.8-1.1 [facility] Comment on above: Performed By: #### C TRAVIS, GALILEO, 06492-9, 3016-3, 31190-8, 2131-11 #### [facility] ([id number]) [address], [address] [place] [address] PT Coag (PPP) [Time] 12.3 s Normal 9.8-13.2 [facility] Comment on above: Result Comment: NEW REFERENCE RANGE Performed By: #### C TRAVIS, CMP, 73677-3, 3016-3, 67573-9, 9 #### [facility] ([id number]) [address], [address] [place] [address] XR SPINE CERVICAL FLEXION/EX TENSION ONLYon 08-29-2023 XR SPINE CERVICAL FLEXION/EXTENSION ONLY XR SPINE CERVICAL FLEXION/EXTENSION ONLY EXAM: XR SPINE CERVICAL FLEXION/EXTENSION ONLY CLINICAL INDICATIONS: Neck pain FINDINGS/IMPRESSION: Vertebral body heights and alignment are maintained without significant spondylolisthesis or dynamic translation. No significant degenerative spondylosis by technique. No significant facet arthropathy. Spinal canal or neuroforaminal narrowing is better assessed on MRI if clinically warranted. Finalized by Norbert Lunsford on 08/29/2023 4:27 PM Normal [facility] Activated partial thrombopla stin time (aPTT) in platelet poor plasma by coagulation aOrdered By: Nazario Torres on 06-15-2023 aPTT Coag (PPP) [Time] 30.4 s 25.1-36.5 [facility] Comment on above: A hematocrit value g reater than 55% may lead to inaccurate results in coagulation testing. Patients having hematocrit values >55% require a special collection tube for coagulation studies. Please contact the laboratory at [phone] for redraw instructions. Alanine aminotransferase [En zymatic activity/volume] in Serum or PlasmaOrdered By: Nazario Torres on 06-15-2023 ALT [Catalytic activity/Vol] 42 U/L 7-52 [facility] Albumin [Mass/volume] in Ser um or Plasma by Bromocresol green (BCG) dye binding methoOrdered By: Nazario Torres on 06-15-2023 Albumin BCG dye [Mass/Vol] 3.9 g/dL 3.5-5.7 [facility] Alkaline phosphatase [Enzyma tic activity/volume] in Serum or PlasmaOrdered By: Nazario Torres on 06-15-2023 ALP [Catalytic activity/Vol] 115 U/L 34-104 [facility] Ammoniaon 06-15-2023 Ammonia (P) [Moles/Vol] 21 umol/L Normal 11-35 [facility] Comment on above: Result Comment: PERF ORMED BY: [facility] [address] [place] [address] PATHOLOGIST BLOCKING MACHINE OPERATOR LAURI PATEL M.D. Performed By: #### A MM, PT, CMP, PTT, HS TROP, CBC, CK ####[facility] [address] [place] [address] [facility] Ammonia [Moles/volume] in Pl asmaOrdered By: Nazario Torres on 06-15-2023 Ammonia (P) [Moles/Vol] 21 umol/L 11-35 [facility] Amphetamine Screen Ql (U)Ord ered By: Nazario Torres on 06-15-2023 Amphetamines Ql (U) Positive Negative [facility] Aspartate aminotransferase [ Enzymatic activity/volume] in Serum or PlasmaOrdered By: Nazario Torres on 06-15-2023 AST [Catalytic activity/Vol] 32 U/L 13-39 [facility] Automated erythrocytes count in urine sediment (number/area)Ordered By: Nazario Torres on 06-15-2023 RBC Auto (Urine sed) [#/Area] 1-2 [HPF] 0-4 [facility] Automated leukocytes count i n urine sediment (number/area)Ordered By: Nazario Torres on 06-15-2023 WBC Auto (Urine sed) [#/Area] 5-9 [HPF] 0-4 [facility] Barbiturates [Presence] in U rine by Screen methodOrdered By: Nazario Torres on 06-15-2023 Barbiturates Screen Ql (U) Negative Negative [facility] Basophils Auto (Bld) [#/Vol] Ordered By: Nazario Torres on 06-15-2023 Basophils (Bld) [#/Vol] 0.0 10*3/uL 0.0-0.2 [facility] Basophils/100 WBC Auto (Bld) Ordered By: Nazario Torres on 06-15-2023 Basophils/100 WBC (Bld) 0.2 % . [facility] Benzodiazepines Screen Ql (U )Ordered By: Nazario Torres on 06-15-2023 Benzodiazepines Ql (U) Negative Negative [facility] Benzoylecgonine [Presence] i n Urine by Screen methodOrdered By: Nazario Torres on 06-15-2023 Benzoylecgonine Screen Ql (U) Positive Negative [facility] Bilirubin Test strip Ql (U)O rdered By: Nazario Torres on 06-15-2023 Bilirubin Ql (U) Negative Negative [facility] Bilirubin.total [Mass/volume ] in Serum or PlasmaOrdered By: Nazario Torres on 06-15-2023 Bilirubin [Mass/Vol] 0.4 mg/dL 0.3-1.[address] [facility] [address] head/brain wo conon 06-14 CT head/brain wo con [facility] [place] [address] [place] [address] CT Scan Report Signed Patient: Tyrone Lim MR#: [id number] : 1985 Acct:[id number] Age/Sex: 38 / F ADM Date: 06/15/23 [...] Jason Stone M.D.06/15/2023 12:37 PM Dictation Location: [place] [address] Transcribed By: BRAULIO 06/15/23 1237 Dictated By: Jason Stone II, MD 06/15/23 1234 Signed By: 06/15/23 1237 Normal [facility] Calcium [Mass/volume] in Ser um or PlasmaOrdered By: Nazario Torres on 04-10-2024 Calcium [Mass/Vol] 8.3 mg/dL 8.6-10.3 [facility] Cannabinoids [Presence] in U rine by Screen methodOrdered By: Nazario Torres on 06-15-2023 Cannabinoids Screen Ql (U) Positive Negative [facility] Comment on above: These are unconfirme d results and should not be used for legal purposes. Drug Cut-Off Concentration: AMPH 1000 ng/mL CHUYITA 200 ng/mL DINO 200 ng/mL COCM 300 ng/mL OP 300 ng/mL PCP 25 ng/mL THC 20 ng/mL Capillary blood glucose bharath urement by glucometer (mass/volume)Ordered By: Nazario Torres on 06-15-2023 Glucose [Mass/Vol] 105 mg/dL Normal [facility] Comment on above: Random Glucose Refer ence Range is dependent on time and content of last meal. Glucose of more than 200 mg/dL in a nonstressed, ambulatory subject supports the diagnosis of Diabetes Mellitus. Result Comment: [place] Glucose Reference Range is dependent on time and content of last meal. Glucose of more than 200 mg/dL in a nonstressed, ambulatory subject supports the diagnosis of Diabetes Mellitus. PERFORMED BY: [address] [address] PATHOLOGIST BLOCKING MACHINE OPERATOR LAURI PATEL M.D. Performed By: #### G LUADITYA ####Point of Care testing, Carbon dioxide, total [Moles /volume] in Serum or PlasmaOrdered By: Nazario Torres on 06-15-2023 CO2 [Moles/Vol] 23.8 mmol/L 21.0-31.0 [facility] Casts typing in urine sedime nt by light microscopyOrdered By: Nazario Torres on 06-15-2023 Casts LM Nom (Urine sed) None seen [LPF] None Seen [facility] Chloride [Moles/volume] in S bennett or PlasmaOrdered By: Nazario Torres on 06-15-2023 Chloride [Moles/Vol] 109 mmol/L 98-107 [facility] Color Auto (U)Ordered By: Rohit Torres on 06-15-2023 Color (U) Yellow Yellow [facility] Complete Blood Count Auto Di ffon 06-15-2023 Basophils (Bld) [#/Vol] 0.0 10*3/uL Normal 0.0-0.2 [facility] Comment on above: Result Comment: PERF ORMED BY: [facility] [place] [address] PATHOLOGIST BLOCKING MACHINE OPERATOR LAURI PATEL M.D. Performed By: #### A MM, PT, CMP, PTT, HS TROP, CBC, CK ####[address] Basophils/100 WBC (Bld) 0.2 % Normal . [facility] Comment on above: Performed By: #### A MM, PT, CMP, PTT, HS TROP, CBC, CK ####[address] Eosinophils (Bld) [#/Vol] 0.2 10*3/uL Normal 0.0-0.45 [facility] Comment on above: Performed By: #### A MM, PT, CMP, PTT, HS TROP, CBC, CK ####[address] Eosinophils/100 WBC (Bld) 4.2 % Normal . [facility] Comment on above: Performed By: #### A MM, PT, CMP, PTT, HS TROP, CBC, CK ####[address] Erythrocyte distribution width (RBC) [Ratio] 13.9 % Normal 11.9-15.3 [facility] Comment on above: Performed By: #### A MM, PT, CMP, PTT, HS TROP, CBC, CK ####[address] Hematocrit (Bld) [Volume fraction] 34.5 % Normal 34.0-46.4 [facility] Comment on above: Performed By: #### A MM, PT, CMP, PTT, HS TROP, CBC, CK ####[address] Hemoglobin (Bld) [Mass/Vol] 11.6 g/dL Low 11.8-15.4 [facility] Comment on above: Performed By: #### A MM, PT, CMP, PTT, HS TROP, CBC, CK ####[address] Lymphocytes (Bld) [#/Vol] 3.0 10*3/uL Normal 1.00-4.8 [facility] Comment on above: Performed By: #### A MM, PT, CMP, PTT, HS TROP, CBC, CK ####[address] Lymphocytes/100 WBC (Bld) 57.0 % Normal . [facility] Comment on above: Performed By: #### A MM, PT, CMP, PTT, HS TROP, CBC, CK ####[address] MCH (RBC) [Entitic mass] 30.1 pg Normal 24.7-34.3 [facility] Comment on above: Performed By: #### A MM, PT, CMP, PTT, HS TROP, CBC, CK ####[address] MCV (RBC) [Entitic vol] 89.4 fL Normal 80-100 [facility] Comment on above: Performed By: #### A MM, PT, CMP, PTT, HS TROP, CBC, CK ####[address] Mean Corpuscular HGB Conc 33.6 g/dL Normal 32.0-35.0 [facility] Comment on above: Performed By: #### A MM, PT, CMP, PTT, HS TROP, CBC, CK ####[address] Monocytes (Bld) [#/Vol] 0.3 10*3/uL Normal 0.0-0.8 [facility] Comment on above: Performed By: #### A MM, PT, CMP, PTT, HS TROP, CBC, CK ####[address] [address] [place] Monocytes/100 WBC (Bld) 17.73 % Normal 0.00-20.00 [facility] Comment on above: Performed By: #### A MM, PT, CMP, PTT, HS TROP, CBC, CK ####[address] Monocytes/100 WBC (Bld) 6.0 % Normal . [facility] Comment on above: Performed By: #### A MM, PT, CMP, PTT, HS TROP, CBC, CK ####[address] Neutrophils (Bld) [#/Vol] 1.7 10*3/uL Low 1.8-7.7 [facility] Comment on above: Performed By: #### A MM, PT, CMP, PTT, HS TROP, CBC, CK ####[address] Neutrophils/100 WBC (Bld) 32.6 % Normal . [facility] Comment on above: Performed By: #### A MM, PT, CMP, PTT, HS TROP, CBC, CK ####[address] NRBC% 0.1 /100{WBC} Normal 0-0.5 [facility] Comment on above: Performed By: #### A MM, PT, CMP, PTT, HS TROP, CBC, CK ####[address] Street Platelet mean volume (Bld) [Entitic vol] 8.7 fL Normal 6.3-10.7 The [facility] Comment on above: Performed By: #### A MM, PT, CMP, PTT, HS TROP, CBC, CK ####[address] Platelets (Bld) [#/Vol] 196 10*3/uL Normal 150-450 The [facility] Comment on above: Performed By: #### A MM, PT, CMP, PTT, HS TROP, CBC, CK ####[place] [address] RBC (Bld) [#/Vol] 3.86 10*6/uL Normal 3.60-5.00 The [facility] Comment on above: Performed By: #### A MM, PT, CMP, PTT, HS TROP, CBC, CK ####[address] WBC (Bld) [#/Vol] 5.3 10*3/uL Normal 3.8-11.6 The [facility] Comment on above: Performed By: #### A MM, PT, CMP, PTT, HS TROP, CBC, CK ####[address] Comprehensive Metabolic Pane jamel 06-15-2023 Albumin [Mass/Vol] 3.9 g/dL Normal 3.5-5.7 The [facility] Comment on above: Performed By: #### A MM, PT, CMP, PTT, HS TROP, CBC, CK ####[address] Albumin/Globulin [Mass ratio] 1.4 {ratio} Normal The [facility] Comment on above: Performed By: #### A MM, PT, CMP, PTT, HS TROP, CBC, CK ####[address] ALP [Catalytic activity/Vol] 115 U/L High 34-104 The [facility] Comment on above: Performed By: #### A MM, PT, CMP, PTT, HS TROP, CBC, CK ####[address] ALT [Catalytic activity/Vol] 42 U/L Normal 7-52 The [facility] Comment on above: Performed By: #### A MM, PT, CMP, PTT, HS TROP, CBC, CK ####[address] Anion gap [Moles/Vol] 10.9 mmol/L Normal 6.0-15.0 Th e [facility] Comment on above: Performed By: #### A MM, PT, CMP, PTT, HS TROP, CBC, CK ####[address] AST [Catalytic activity/Vol] 32 U/L Normal 13-39 The [facility] Comment on above: Performed By: #### A MM, PT, CMP, PTT, HS TROP, CBC, CK ####[address] Bilirubin [Mass/Vol] 0.4 mg/dL Normal 0.3-1.0 The [facility] Comment on above: Performed By: #### A MM, PT, CMP, PTT, HS TROP, CBC, CK ####[address] Calcium [Mass/Vol] 8.3 mg/dL Low 8.6-10.3 The [facility] Comment on above: Performed By: #### A MM, PT, CMP, PTT, HS TROP, CBC, CK ####[address] Chloride [Moles/Vol] 109 mmol/L High 98-107 The [facility] Comment on above: Performed By: #### A MM, PT, CMP, PTT, HS TROP, CBC, CK ####[address] CO2 [Moles/Vol] 23.8 mmol/L Normal 21.0-31.0 The [facility] Comment on above: Performed By: #### A MM, PT, CMP, PTT, HS TROP, CBC, CK ####[address] Creatinine [Mass/Vol] 0.86 mg/dL Normal 0.60-1.20 The [facility] Comment on above: Performed By: #### A MM, PT, CMP, PTT, HS TROP, CBC, CK ####[address] Creatinine Clr Calc Pharmacy 118.81 Normal The [facility] Comment on above: Result Comment: PERF ORMED BY: [facility] [address] [place] [address] PATHOLOGIST BLOCKING MACHINE OPERATOR LARUI PATEL M.D. Performed By: #### A MM, PT, CMP, PTT, HS TROP, CBC, CK ####[address] GFR/1.73 sq M.predicted MDRD (S/P/Bld) [Vol rate/Area] mL/min/{1.73_m2} Normal The [facility] Comment on above: Performed By: #### A MM, PT, CMP, PTT, HS TROP, CBC, CK ####[place] [address] [address] Globulin (S) [Mass/Vol] 2.7 g/dL Normal The [facility] Comment on above: Performed By: #### A MM, PT, CMP, PTT, HS TROP, CBC, CK ####[address] Glucose [Mass/Vol] 107 mg/dL High 70-100 The [facility] Comment on above: Result Comment: [facility] Glucose Reference Range is dependent on time and content of last meal. Glucose of more than 200 mg/dL in a nonstressed, ambulatory subject supports the diagnosis of Diabetes Mellitus. ADA recommended reference range Performed By: #### A MM, PT, CMP, PTT, HS TROP, CBC, CK ####[address] Potassium [Moles/Vol] 3.7 mmol/L Normal 3.5-5.1 The [facility] Comment on above: Performed By: #### A MM, PT, CMP, PTT, HS TROP, CBC, CK ####[address] Protein [Mass/Vol] 6.6 g/dL Normal 6.4-8.9 The [facility] Comment on above: Performed By: #### A MM, PT, CMP, PTT, HS TROP, CBC, CK ####[address] Sodium [Moles/Vol] 140 mmol/L Normal 136-145 The [facility] Comment on above: Performed By: #### A MM, PT, CMP, PTT, HS TROP, CBC, CK ####[facility] Urea nitrogen [Mass/Vol] 11 mg/dL Normal 7-25 The [facility] Comment on above: Performed By: #### A MM, PT, CMP, PTT, HS TROP, CBC, CK ####[facility] [place] [address] [facility] Creatine Kinaseon 06-15-2023 CK [Catalytic activity/Vol] 68 U/L Normal 30-223 The [facility] Comment on above: Performed By: #### A MM, PT, CMP, PTT, HS TROP, CBC, CK ####[place] [address] [address] Creatine kinase [Enzymatic a ctivity/volume] in Serum or PlasmaOrdered By: Nazario Torres on 06-15-2023 CK [Catalytic activity/Vol] 68 U/L 30-223 [facility] Creatinine [Mass/volume] in Serum or PlasmaOrdered By: Nazario Torres on 06-15-2023 Creatinine [Mass/Vol] 0.86 mg/dL 0.60-1.20 [facility] Dipstick and Microscopicon 0 06-15-2023 Appearance (U) Clear Normal Clear The [facility] Comment on above: Order Comment: Name Collection Type:: Straight Catheter Performed By: #### C UU, ADDONUAPLUS, UHCG #### [facility] [address] [place] [id number] [place] Bacteria,Urine None Seen Normal None Seen The [facility] Comment on above: Order Comment: Name Collection Type:: Straight Catheter Performed By: #### C UU, ADDONUAPLUS, UHCG #### [facility] [address] [place] [id number] [place] Bilirubin,Urine Negative Normal Negative The [facility] Comment on above: Order Comment: Name Collection Type:: Straight Catheter Performed By: #### C UU, ADDONUAPLUS, UHCG #### [place] [address] [place] Color (U) Yellow Normal Yellow The [facility] Comment on above: Order Comment: Name Collection Type:: Straight Catheter Performed By: #### C UU, ADDONUAPLUS, UHCG #### [address] Glucose Ql (U) Normal Normal Normal The [facility] Comment on above: Order Comment: Name Collection Type:: Straight Catheter Performed By: #### C UU, ADDONUAPLUS, UHCG #### [place] [address] [place] Hyaline Casts,Urine 0-8 Normal 0-8 [facility] Comment on above: Order Comment: Name Collection Type:: Straight Catheter Performed By: #### C UU, ADDONUAPLUS, UHCG #### [address] Ketones Ql (U) Negative Normal Negative The [facility] Comment on above: Order Comment: Name Collection Type:: Straight Catheter Performed By: #### C UU, ADDONUAPLUS, UHCG #### [address] Leukocyte esterase Test strip Ql (U) 2+ High Negative The [facility] Comment on above: Order Comment: Name Collection Type:: Straight Catheter Performed By: #### C UU, ADDONUAPLUS, UHCG #### [place] [address] [place] Nitrite,Urine Negative Normal Negative The [facility] Comment on above: Order Comment: Name Collection Type:: Straight Catheter Performed By: #### C UU, ADDONUAPLUS, UHCG #### [place] [address] [place] Occult Blood,Urine Negative Normal Negative The [facility] Comment on above: Order Comment: Name Collection Type:: Straight Catheter Performed By: #### C UU, ADDONUAPLUS, UHCG #### [address] Other Casts,Urine None Seen Normal None Seen The [facility] Comment on above: Order Comment: Name Collection Type:: Straight Catheter Performed By: #### C UU, ADDONUAPLUS, UHCG #### [address] pH (U) 7.0 [pH] Normal 5.0-9.0 The [facility] Comment on above: Order Comment: Name Collection Type:: Straight Catheter Performed By: #### C UU, ADDONUAPLUS, UHCG #### [address] Protein,Urine Negative Normal Negative The [facility] Comment on above: Order Comment: Name Collection Type:: Straight Catheter Performed By: #### C UU, ADDONUAPLUS, UHCG #### [address] RBC,Urine 1-2 Normal 0-4 The [facility] Comment on above: Order Comment: Name Collection Type:: Straight Catheter Performed By: #### C UU, ADDONUAPLUS, UHCG #### [place] [address] [place] Renal Epithelial Cells,Urine 1-2 High 0-1 The [facility] Comment on above: Order Comment: Name Collection Type:: Straight Catheter Performed By: #### C UU, ADDONUAPLUS, UHCG #### [place] [address] [place] Specificy [place],Urine 1.016 Normal 1.001-1.030 The [facility] Comment on above: Order Comment: Name Collection Type:: Straight Catheter Performed By: #### C UU, ADDONUAPLUS, UHCG #### [place] [address] [place] Squamous Epithelial Cell,Urine 5-9 High 0-2 The [facility] Comment on above: Order Comment: Name Collection Type:: Straight Catheter Performed By: #### C UU, ADDONUAPLUS, UHCG #### [place] [address] Urobilinogen,Urine Normal Normal Normal The [facility] Comment on above: Order Comment: Name Collection Type:: Straight Catheter Performed By: #### C UU, [facility]ON[facility]APLUS, [facility] #### [facility] [address] [place] [address] [place] WBC,Urine 5-9 High 0-4 The [facility] Comment on above: Order Comment: Name Collection Type:: Straight Catheter Performed By: #### C UU, ADDONUAPLUS, [facility] #### [place] [address] [place] Drug Screen,Urineon 06-15-19 24 Amphetamine Screen,Urine Positive High Negative The [facility] Comment on above: Performed By: #### U RDS ####[address] Barbiturate Screen,Urine Negative Normal Negative The [facility] Comment on above: Performed By: #### U RDS ####[address] Benzodiazepines Screen,Urine Negative Normal Negative The [facility] Comment on above: Performed By: #### U RDS ####[address] Cannabinoid Screen,Urine Positive High Negative The [facility] Comment on above: Result Comment: Thes e are unconfirmed results and should not be used for legal purposes. Drug Cut-Off Concentration: AMPH 1000 ng/mL CHUYITA 200 ng/mL DINO 200 ng/mL COCM 300 ng/mL OP 300 ng/mL PCP 25 ng/mL THC 20 ng/mL PERFORMED BY: [place] [address] PATHOLOGIST BLOCKING MACHINE OPERATOR LAURI PATEL M.D. Performed By: #### U RDS ####[address] Cocaine Screen,Urine Positive High Negative The [facility] Comment on above: Performed By: #### U RDS ####[address] Opiate Screen,Urine Negative Normal Negative The [facility] Comment on above: Performed By: #### U RDS ####[place] [address] [place] [address] [facility] Phencyclidine Screen,Urine Negative Normal Negative The [facility] Comment on above: Performed By: #### U RDS ####[place] [address] [place] [address] [facility] ECG 12 lead ECGon 06-15-2023 ECG [address] [facility] Main [place] [id number] Electrocardiograph Report Signed Patient: Tyrone Lim MR#: [id number] : 1985 Acct:[id number] Age/Sex: 38 / F ADM Date: 06/15/23 Loc: ER Room: Type: [facility] ER Attending Dr: Ordering Provider: Nazario Torres [...] axis deviation Confirmed by Nazario TORRES DO ([id number]) on 06/15/2023 6:38:04 PM Referred By: Electronically Signed By:Nazario TORRES DO Transcribed By: MUS Signed By Nazario Torres DO 0 06/15/23 1838 Normal [facility] ECG 12 lead ECG [place] [id number] Electrocardiograph Report Signed Patient: Tyrone Lim MR#: [id number] : 1985 Acct:[id number] Age/Sex: 38 / F ADM Date: 06/15/23 Loc: ER Room: Type: [facility] ER Attending Dr: Ordering Provider: Nazario Torres [...] Sinus tachycardia Confirmed by Nazario TORRES DO ([id number]) on 06/15/2023 6:34:30 PM Referred By: Electronically Signed By:Nazario TORRES DO Transcribed By: MUS Signed By Nazario Torres DO 0 06/15/23 1834 Normal [facility] Eosinophils Auto (Bld) [#/Vo l]Ordered By: Nazario Torres on 06-15-2023 Eosinophils (Bld) [#/Vol] 0.2 10*3/uL 0.0-0.45 [facility] Eosinophils/100 WBC Auto (Bl d)Ordered By: Nazario Torres on 06-15-2023 Eosinophils/100 WBC (Bld) 4.2 % . [facility] Erythrocyte distribution wid th Auto (RBC) [Ratio]Ordered By: Nazario Torres on 06-15-2023 Erythrocyte distribution width (RBC) [Ratio] 13.9 % 11.9-15.3 [facility] Globulin Calc (S) [Mass/Vol] Ordered By: Nazario Torres on 06-15-2023 Globulin (S) [Mass/Vol] 2.7 g/dL [facility] Glucose [Mass/volume] in Ser um or PlasmaOrdered By: Nazario Torres on 06-15-2023 Glucose [Mass/Vol] 107 mg/dL 70-100 [facility] Comment on above: ADA recommended refe rence rangeRandom Glucose Reference Range is dependent on time and content of last meal. Glucose of more than 200 mg/dL in a nonstressed, ambulatory subject supports the diagnosis of Diabetes Mellitus. HCG ( test) IA.rapi d Ql (U)Ordered By: Nazario Torres on 06-15-2023 HCG ( test) Ql (U) Negative [facility] HCG,Urineon 06-15-2023 Beta HCG ( test) Ql (U) Negative Normal [facility] Comment on above: Order Comment: Name Collection Type:: Straight Catheter Result Comment: PERF ORMED BY: [place] [address] PATHOLOGIST BLOCKING MACHINE OPERATOR LAURI PATEL M.D. Performed By: #### C YEHUDA ENCISO [facility] #### [address] Hematocrit Auto (Bld) [Volum e fraction]Ordered By: Nazario Torres on 06-15-2023 Hematocrit (Bld) [Volume fraction] 34.5 % 34.0-46.4 [facility] Hemoglobin [Mass/volume] in BloodOrdered By: Nazario Torres on 06-15-2023 Hemoglobin (Bld) [Mass/Vol] 11.6 g/dL 11.8-15.4 [facility] INR in Platelet poor plasma by Coagulation assayOrdered By: Nazario Torres on 06-15-2023 INR Coag (PPP) [Relative time] 1.1 {INR} [facility] Comment on above: INR Therapeutic Rang [...] on 06-15-2023 Ketones (U) [Mass/Vol] Negative Negative [facility] Laboratory - UrinalysisOrder ed By: Nazario Torres on 06-15-2023 Hyaline casts LM Ql (Urine sed) 0-8 [LPF] 0-8 [facility] Leukocytes [#/volume] correc [place] for nucleated erythrocytes in Blood by Automated counOrdered By: Nazario Torres on 06-15-2023 WBC corrected for nucl RBC Auto (Bld) [#/Vol] 5.3 10*3/uL 3.8-11.6 [facility] Lymphocytes Auto (Bld) [#/Vo l]Ordered By: Nazario Torres on 06-15-2023 Lymphocytes (Bld) [#/Vol] 3.0 10*3/uL 1.00-4.8 [facility] Lymphocytes/100 WBC Auto (Bl d)Ordered By: Nazario Torres on 06-15-2023 Lymphocytes/100 WBC (Bld) 57.0 % . [facility] MCH Auto (RBC) [Entitic mass ]Ordered By: Nazario Torres on 06-15-2023 MCH (RBC) [Entitic mass] 30.1 pg 24.7-34.3 [facility] MCHC Auto (RBC) [Mass/Vol]Or dered By: Nazario Torres on 06-15-2023 MCHC (RBC) [Mass/Vol] 33.6 g/dL 32.0-35.0 [facility] MCV Auto (RBC) [Entitic vol] Ordered By: Nazario Torres on 06-15-2023 MCV (RBC) [Entitic vol] 89.4 fL 80-100 [facility] Monocyte distribution width [Entitic volume] in Blood by AutomatedOrdered By: Nazario Torres on 06-15-2023 Monocyte distribution width Auto (Bld) [Entitic vol] 17.73 % 0.00-20.00 [facility] Monocytes Auto (Bld) [#/Vol] Ordered By: Nazario Torres on 06-15-2023 Monocytes (Bld) [#/Vol] 0.3 10*3/uL 0.0-0.8 [facility] Monocytes/100 WBC Auto (Bld) Ordered By: Nazario Torres on 06-15-2023 Monocytes/100 WBC (Bld) 6.0 % . [facility] Neutrophils Auto (Bld) [#/Vo l]Ordered By: Nazario Torres on 06-15-2023 Neutrophils (Bld) [#/Vol] 1.7 10*3/uL 1.8-7.7 [facility] Neutrophils/100 WBC Auto (Bl d)Ordered By: Nazario Torres on 06-15-2023 Neutrophils/100 WBC (Bld) 32.6 % . [facility] Nitrite Test strip Ql (U)Ord ered By: Nazario Torres on 06-15-2023 Nitrite Ql (U) Negative Negative [facility] No Panel InformationOrdered By: Nazario Torres on 06-15-2023 Blood Gas Critical Value See comment [facility] Comment on above: Critical Value quintero d on: 06/15/2023 at 13:02 Blood Gas Sample Site Venous [facility] FiO2 21 % [facility] Venous Blood Base Excess -7.8 mmol/L -3.0-3.0 [facility] Venous Blood Oxygen Content 5.8 mmol/L 6.6-9.7 [facility] Venous Blood Oxygen Saturation 84.8 % 73.0-76.0 [facility] Venous Blood Partial Pressure CO2 36.9 mm[Hg] 38.0-50.0 [facility] Venous Blood Partial Pressure O2 53.5 mm[Hg] 35.0-45.0 [facility] Venous Blood pH 7.30 7.32-7.43 [facility] Estimated GFR (CKD-EPI) > 60.0 mL/Min [facility] Creatinine Clearance (Chem 118.81 [facility] Nucleated erythrocytes [Pres ence] in Blood by Automated countOrdered By: Nazario Torres on 06-15-2023 Nucleated RBC Auto Ql (Bld) 0.1 /100{WBC} 0-0.5 [facility] Opiates [Presence] in Urine by Screen methodOrdered By: Nazario Torres on 06-15-2023 Opiates Screen Ql (U) Negative Negative [facility] Partial Thromboplastin Timeo n 06-15-2023 aPTT Coag (Bld) [Time] 30.4 s Normal 25.1-36.5 [facility] Comment on above: Result Comment: A he matocrit value greater than 55% may lead to inaccurate results in coagulation testing. Patients having hematocrit values >55% require a special collection tube for coagulation studies. Please contact the laboratory at [phone] for redraw instructions. PERFORMED BY: [facility] [address] [place] [address] PATHOLOGIST BLOCKING MACHINE OPERATOR LAURI PATEL M.D. Performed By: #### A MM, PT, CMP, PTT, HS TROP, CBC, CK ####[facility] [address] [place] [address] [facility] Phencyclidine Screen Ql (U)O rdered By: Nazario Torres on 06-15-2023 Phencyclidine Ql (U) Negative Negative [facility] Platelet mean volume Auto (B ld) [Entitic vol]Ordered By: Nazario Torres on 06-15-2023 Platelet mean volume (Bld) [Entitic vol] 8.7 fL 6.3-10.7 [facility] Platelets Auto (Bld) [#/Vol] Ordered By: Nazario Torres on 06-15-2023 Platelets (Bld) [#/Vol] 196 10*3/uL 150-450 [facility] Potassium [Moles/volume] in Serum or PlasmaOrdered By: Nazario Torres on 06-15-2023 Potassium [Moles/Vol] 3.7 mmol/L 3.5-5.1 [facility] Protein Auto test strip (U) [Mass/Vol]Ordered By: Nazario Torres on 06-15-2023 Protein (U) [Mass/Vol] Negative Negative [facility] Protein [Mass/volume] in Ser um or PlasmaOrdered By: Nazario Torres on 06-15-2023 Protein [Mass/Vol] 6.6 g/dL 6.4-8.9 [facility] Prothrombin Time INRon 06-14 INR Coag (PPP) [Relative time] 1.1 {INR} Normal [facility] Comment on above: Result Comment: [...] PT, CMP, PTT, HS TROP, CBC, CK ####[facility] [id number] [place] [address] [facility] PT Coag (PPP) [Time] 13.2 s High 9.0-12.9 [facility] Comment on above: Result Comment: A he matocrit value greater than 55% may lead to inaccurate results in coagulation testing. Patients having hematocrit values >55% require a special collection tube for coagulation studies. Please contact the laboratory at [phone] for redraw instructions. Performed By: #### A MM, PT, CMP, PTT, HS TROP, CBC, CK ####[facility] [id number] [place] [id number] [facility] Prothrombin time (PT)Ordered By: Nazario Torres on 06-15-2023 PT Coag (PPP) [Time] 13.2 s 9.0-12.9 [facility] Comment on above: A hematocrit value g reater than 55% may lead to inaccurate results in coagulation testing. Patients having hematocrit values >55% require a special collection tube for coagulation studies. Please contact the laboratory at [phone] for redraw instructions. RBC Auto (Bld) [#/Vol]Ordere d By: Nazario Torres on 06-15-2023 RBC (Bld) [#/Vol] 3.86 10*6/uL 3.60-5.00 [facility] Serum or plasma albumin/glob ulin mass ratioOrdered By: Nazario Torres on 06-15-2023 Albumin/Globulin [Mass ratio] 1.4 {ratio} [facility] Serum or plasma anion gap de terminationOrdered By: Nazario Torres on 06-15-2023 Anion gap [Moles/Vol] 10.9 mmol/L 6.0-15.0 [facility] Sodium [Moles/volume] in Ser um or PlasmaOrdered By: Nazario Torres on 06-15-2023 Sodium [Moles/Vol] 140 mmol/L 136-145 [facility] Specific gravity Auto test s trip (U) [Rel density]Ordered By: Nazario Torres on 06-15-2023 Specific gravity (U) [Rel density] 1.016 1.001-1.030 [facility] Squamous epithelial cells de tection in urine sediment by light microscopyOrdered By: Nazario Torres on 06-15-2023 Epithelial cells.squamous LM Ql (Urine sed) 5-9 [HPF] 0-2 [facility] Troponin I High Sensitivityo n 06-15-2023 Troponin I High Sensitivity < 2.3 Normal 0.0-15.0 [facility] Comment on above: Result Comment: PERF ORMED BY: [place] [address] PATHOLOGIST BLOCKING MACHINE OPERATOR LAURI PATEL M.D. Performed By: #### A MM, PT, CMP, PTT, HS TROP, CBC, CK ####[facility] [id number] Troponin I.cardiac [Mass/vol ume] in Serum or Plasma by Detection limit <= 0.01 ng/Ordered By: Nazario Torres on 06-15-2023 Troponin I.cardiac DL <= 0.01 ng/mL [Mass/Vol] < 2.3 pg/mL 0.0-15.0 [facility] Urea nitrogen [Mass/volume] in Serum or PlasmaOrdered By: Nazario Torres on 06-15-2023 Urea nitrogen [Mass/Vol] 11 mg/dL 7-25 [facility] Urine Cultureon 06-15-2023 Bacteria identified Cx Nom (U) No Growth 2 Days PERFORMED BY: [place] [address] PATHOLOGIST BLOCKING MACHINE OPERATOR LAURI PATEL M.D. Normal [facility] Comment on above: Performed By: #### C UU, ADDONUAPLUS, UHCG #### [facility] [address] [place] [address] Urine bacteria detection by automated methodOrdered By: Nazario Torres on 06-15-2023 Bacteria Auto Ql (U) None seen None Seen [facility] Urine clarity by refractomet ry automatedOrdered By: Nazario Torres on 06-15-2023 Clarity Refractometry automated (U) Clear Clear [facility] Urine glucose measurement by automated test strip (mass/volume)Ordered By: Nazario Torres on 06-15-2023 Glucose Auto test strip (U) [Mass/Vol] Normal mg/dL Normal [facility] Urine hemoglobin detection b y automated test stripOrdered By: Nazario Torres on 06-15-2023 Hemoglobin Auto test strip Ql (U) Negative Negative [facility] Urine leukocyte esterase det ection by automated test stripOrdered By: Nazario Torres on 06-15-2023 Leukocyte esterase Auto test strip Ql (U) 2+ Negative [facility] Urine sediment renal epithel ial cell count by microscopy (number/high power field)Ordered By: Nazario Torres on 06-15-2023 Epithelial cells.renal LM.HPF (Urine sed) [#/Area] 1-2 [HPF] 0-1 [facility] Urobilinogen Auto test strip (U) [Mass/Vol]Ordered By: Nazario Torres on 06-15-2023 Urobilinogen (U) [Mass/Vol] Normal mg/dL Normal [facility] Venous Blood Gason 4 Respiratory Critical Normal [facility] Comment on above: Result Comment: Crit ical Value called on: 06/15/2023 at 13:02 PERFORMED BY: [facility] [address] [place] [address] PATHOLOGIST BLOCKING MACHINE OPERATOR LAURI PATEL M.D. Performed By: #### V BG #### Point of Care testing , VBG Base Excess -7.8 mmol/L Low -3.0-3.0 [facility] Comment on above: Performed By: #### V BG #### Point of Care testing , VBG Draw Site Venous Normal [facility] Comment on above: Performed By: #### V BG #### Point of Care testing , VBG Frac Inspired O2 21 % Normal [facility] Comment on above: Performed By: #### V BG #### Point of Care testing , VBG O2 Content 5.8 mmol/L Low 6.6-9.7 [facility] Comment on above: Performed By: #### V BG #### Point of Care testing , VBG Oxygen Saturation 84.8 % High 73.0-76.0 [facility] Comment on above: Performed By: #### V BG #### Point of Care testing , VBG PCO2 36.9 mm[Hg] Low 38.0-50.0 [facility] Comment on above: Performed By: #### V BG #### Point of Care testing , VBG PH Venous PH 7.30 Low 7.32-7.43 [facility] Comment on above: Performed By: #### V BG #### Point of Care testing , VBG PO2 53.5 mm[Hg] High 35.0-45.0 [facility] Comment on above: Performed By: #### V BG #### Point of Care testing , Venous Blood GasOrdered By: Nazario Torres on 06-15-2023 CO2 [Moles/Vol] 19.0 mmol/L Low 24.0-29.0 [facility] Comment on above: Performed By: #### V BG #### Point of Care testing , HCO3 (Bld) [Moles/Vol] 17.8 mmol/L Low 23.0-29.0 [facility] Comment on above: Performed By: #### V BG #### Point of Care testing , WBC Auto (Bld) [#/Vol]Ordere d By: Nazario Torres on 06-15-2023 WBC (Bld) [#/Vol] 5.3 10*3/uL 3.8-11.6 [facility] XR chest 2V*on 06-15-2023 XR chest 2V* [facility] [address] XRay Report Signed Patient: Tyrone Lim MR#: [id number] : 1985 Acct:[id number] Age/Sex: 38 / F ADM Date: 06/15/23 [...] Jason Stone M.D.06/15/2023 12:34 PM Dictation Location: [place] [address] Transcribed By: BRAULIO 06/15/23 1234 Dictated By: Jason Stone II, MD 06/15/23 1233 Signed By: 06/15/23 1234 Normal [facility] pH Auto test strip (U)Ordere d By: Nazario Torres on 06-15-2023 pH (U) 7.0 [pH] 5.0-9.0 [facility] ACETAMINOPHENon 06-01-2023 Acetaminophen [Mass/Vol] 6.5 ug/mL Low 10.0-30.0 [facility] Comment on above: Result Comment: Refe rence ranges are for therapeutic limits. Performed By: #### C BCA, CMP, 42309-8, 3016-3, 30430-9, 2132-9 #### [facility] ([id number]) [address] [place] [address], [address] [place] [address] CBC AND AUTO DIFFon 06-01-19 ABSOLUTE BASOPHIL 0.0 X10E9/L Normal 0.0-0.2 [facility] Comment on above: Performed By: #### C BCA, 25036-5, 26333-0, 5643-2, CMP, 13574- 9, 3298-7, 2157-6, 4024-6, 48673-3, 3040-3 #### [facility] ([id number]) [address] [place] [address] ABSOLUTE NEUTROPHIL 13.2 X10E9/L High 1.5-6.6 [facility] Comment on above: Performed By: #### C BCA, 34257-9, 62355-9, 5643-2, CMP, 55958- 9, 3298-7, 2157-6, 4024-6, 52521-3, 3040-3 #### [facility] ([id number]) [address] [place] [address] Basophils/100 WBC (Bld) 0.1 % Normal [facility] Comment on above: Performed By: #### C BCA, 69714-9, 08005-3, 5643-2, CMP, 06477- 9, 3298-7, 2157-6, 4024-6, 73152-9, 3040-3 #### [facility] ([id number]) [address] [place] [address] Eosinophils (Bld) [#/Vol] 0.0 10*3/uL Normal 0.0-0.4 [facility] Comment on above: Performed By: #### C BCA, 98868-8, 21587-3, 5643-2, CMP, 43445- 9, 3298-7, 2157-6, 4024-6, 48506-5, 3040-3 #### [facility] ([id number]) [address] [place] [address] Eosinophils/100 WBC (Bld) 0.3 % Normal [facility] Comment on above: Performed By: #### C BCA, 15168-9, 54103-0, 5643-2, CMP, 29853- 9, 3298-7, 2157-6, 4024-6, 46504-2, 3040-3 #### [facility] ([id number]) [address] [place] [address] 22384 Erythrocyte distribution width (RBC) [Ratio] 14.4 % Normal 11.5-15.0 [facility] Comment on above: Performed By: #### C BCA, 43188-9, 79786-4, 5643-2, CMP, 11395- 9, 3298-7, 2157-6, 4024-6, 86517-5, 3040-3 #### [facility] ([id number]) [address] [place] [address] Hematocrit (Bld) [Volume fraction] 40.1 % Normal 35-47 [facility] Comment on above: Performed By: #### C BCA, 73133-9, 43495-2, 5643-2, CMP, 40221- 9, 3298-7, 2157-6, 4024-6, 43502-5, 3040-3 #### [facility] ([id number]) [address] [place] [address] Hemoglobin (Bld) [Mass/Vol] 13.4 g/dL Normal 11.7-15.5 [facility] Comment on above: Performed By: #### C BCA, 29982-1, 31569-4, 5643-2, CMP, 76673- 9, 3298-7, 2157-6, 4024-6, 94802-1, 3040-3 #### [facility] ([id number]) [address] [place] [address] Lymphocytes (Bld) [#/Vol] 1.0 10*3/uL Normal 1.0-3.5 [facility] Comment on above: Performed By: #### C BCA, 52456-1, 56990-3, 5643-2, CMP, 68603- 9, 3298-7, 2157-6, 4024-6, 88129-1, 3040-3 #### [facility] ([id number]) [address] [place] [address] Lymphocytes/100 WBC (Bld) 6.8 % Normal [facility] Comment on above: Performed By: #### C BCA, 37722-3, 83142-3, 5643-2, CMP, 84908- 9, 3298-7, 2157-6, 4024-6, 74213-1, 3040-3 #### [facility] ([id number]) [address] [place] [address] 24974 MCH (RBC) [Entitic mass] 30.5 pg Normal 27-34 [facility] Comment on above: Performed By: #### C BCA, 24502-0, 49280-5, 5643-2, CMP, 04336- 9, 3298-7, 2157-6, 4024-6, 65115-9, 3040-3 #### [facility] ([id number]) [address] [place] [address] 35461 MCHC (RBC) [Mass/Vol] 33.5 g/dL Normal 32-36 [facility] Comment on above: Performed By: #### C TRAVIS, 86061-1, 60291-2, 5643-2, CMP, 99896- 9, 3298-7, 2157-6, 4024-6, 10516-7, 3040-3 #### [facility] ([id number]) [address] [place] [address] 89753 MCV (RBC) [Entitic vol] 91 fL Normal 80-100 [facility] Comment on above: Performed By: #### C TRAVIS, 04951-8, 88960-5, 5643-2, CMP, 62369- 9, 3298-7, 2157-6, 4024-6, 58165-0, 3040-3 #### [facility] ([id number]) [address] [place] [address]43 Monocytes (Bld) [#/Vol] 0.5 10*3/uL Normal 0-0.9 [facility] Comment on above: Performed By: #### C TRAVIS, 94427-0, 74913-4, 5643-2, CMP, 35554- 9, 3298-7, 2157-6, 4024-6, 73188-7, 3040-3 #### [facility] ([id number]) [address] [place] [address] 82923 Monocytes/100 WBC (Bld) 3.7 % Normal [facility] Comment on above: Performed By: #### C TRAVIS, 42525-8, 11191-3, 5643-2, CMP, 67567- 9, 3298-7, 2157-6, 4024-6, 99321-6, 3040-3 #### [facility] ([id number]) [address] [place] [address] 77634 Neutrophils/100 WBC (Bld) 89.1 % Normal [facility] Comment on above: Performed By: #### C TRAVIS, 51894-3, 94982-9, 5643-2, CMP, 24682- 9, 3298-7, 2157-6, 4024-6, 82452-8, 3040-3 #### [facility] ([id number]) [address] [place] [address] 36037 Platelet mean volume (Bld) [Entitic vol] 8.3 fL Normal 7-12 [facility] Comment on above: Performed By: #### C TRAVIS, 19176-1, 36571-2, 5643-2, CMP, 41892- 9, 3298-7, 2157-6, 4024-6, 73497-4, 3040-3 #### [facility] ([id number]) [address] [place] [address]3737 Platelets (Bld) [#/Vol] 249 10*3/uL Normal 150-450 [facility] Comment on above: Performed By: #### C TRAVIS, 14873-6, 15736-1, 5643-2, CMP, 36840- 9, 3298-7, 2157-6, 4024-6, 72004-0, 3040-3 #### [facility] ([id number]) [address] [place] [address] 29120 RBC COUNT 4.41 X10E12/L Normal 3.80-5.20 [facility] Comment on above: Performed By: #### C TRAVIS, 34084-2, 16747-9, 5643-2, CMP, 96949- 9, 3298-7, 2157-6, 4024-6, 24522-3, 3040-3 #### [facility] ([id number]) [address] [place] [address] 94035 WBC (Bld) [#/Vol] 14.8 10*3/uL High 4.0-11.0 [facility] Comment on above: Performed By: #### C BCA, 01472-9, 75836-4, 5643-2, CMP, 12243- 9, 3298-7, 2157-6, 4024-6, 05896-6, 3040-3 #### [facility] ([id number]) [address] [place] [address], [place] [address] CK [Catalytic activity/Vol]o n 06-01-2023 CPK 49 U/L Normal 24-170 [facility] Comment on above: Performed By: #### C BCA, CMP, 01715-0, 3016-3, 26848-5, 9 #### [facility] ([id number]) [address], [address] [place] [address] COMPREHENSIVE METABOLIC PANE Jamel 06-01-2023 Albumin [Mass/Vol] 4.3 g/dL Normal 3.2-5.3 [facility] Comment on above: Performed By: #### C BCA, CMP, 64573-7, 3016-3, 54520-3, 2131-9 #### [facility] ([id number]) [address], [address] [place] [address] ALP [Catalytic activity/Vol] 115 U/L Normal 39-130 [facility] Comment on above: Performed By: #### C BCA, CMP, 92797-8, 3016-3, 82936-1, 2131-11 #### [facility] ([id number]) [address], [address] [place] [address] ALT [Catalytic activity/Vol] 37 U/L High 0-31 [facility] Comment on above: Performed By: #### C BCA, CMP, 22774-6, 3016-3, 39060-0, 2131-9 #### [facility] ([id number]) [address], [address] [place] [address] Anion gap [Moles/Vol] 10 mmol/L Normal 5-15 [facility] Comment on above: Performed By: #### C BCA, CMP, 12647-3, 3016-3, 55308-9, 2131-11 #### [facility] ([id number]) [address], [address] [place] [address] AST [Catalytic activity/Vol] 29 U/L Normal 0-41 [facility] Comment on above: Performed By: #### C BCA, CMP, 20517-4, 3016-3, 87946-9, 2131-11 #### [facility] ([id number]) [address], [address] [place] [address] Bilirubin [Mass/Vol] 0.4 mg/dL Normal 0.3-1.2 [facility] Comment on above: Performed By: #### C BCA, CMP, 68627-9, 3016-3, 58166-3, 2131-11 #### [facility] ([id number]) [address], [address] [place] [address] Calcium [Mass/Vol] 8.8 mg/dL Normal 8.5-10.5 [facility] Comment on above: Performed By: #### C BCA, CMP, 34593-0, 3016-3, 33282-6, 2131-11 #### [facility] ([id number]) [address], [address] [place] [address] Chloride [Moles/Vol] 105 mmol/L Normal 98-109 [facility] Comment on above: Performed By: #### C BCA, CMP, 36254-2, 3016-3, 13474-3, 2131-11 #### [facility] ([id number]) [address], [address] [place] [address] CO2 [Moles/Vol] 22 mmol/L Normal 22-32 [facility] Comment on above: Performed By: #### C BCA, CMP, 57387-9, 3016-3, 57343-8, 2131-11 #### [facility] ([id number]) [address] [address] [place] [address] Creatinine [Mass/Vol] 1.23 mg/dL High 0.40-1.00 [facility] Comment on above: Result Comment: METH OD TRACEABLE TO IDMS STANDARD Performed By: #### C BCA, CMP, 97786-9, 3016-3, 07619-5, 2131-11 #### [facility] ([id number]) [address] [address] [place] [address] GFR/1.73 sq M.predicted among non-blacks MDRD (S/P/Bld) [Vol rate/Area] 58 mL/min/{1.73_m2} Low >59 [facility] Comment on above: Result Comment: Reported eGFR is based on the CKD-EPI 2020 equation that does not use a race coefficient. Performed By: #### C BCA, CMP, 26320-2, 3016-3, 68101-2, 2131-11 #### [facility] ([id number]) [address] [place] [address] Glucose [Mass/Vol] 274 mg/dL High 65-99 [facility] Comment on above: Performed By: #### C BCA, CMP, 64046-1, 3016-3, 39348-7, 2131-11 #### [facility] ([id number]) [address] [address] [place] [address] Potassium [Moles/Vol] 4.8 mmol/L Normal 3.5-5.0 [facility] Comment on above: Performed By: #### C BCA, CMP, 09576-5, 3016-3, 70358-0, 2131-11 #### [facility] ([id number]) [address] [address] [place] [address] Protein [Mass/Vol] 8.3 g/dL High 6.0-8.0 [facility] Comment on above: Performed By: #### C BCA, CMP, 29468-6, 3016-3, 78863-2, 9 #### [facility] ([id number]) [address], [address] [place] [address] Sodium [Moles/Vol] 137 mmol/L Normal 134-146 [facility] Comment on above: Performed By: #### C BCA, CMP, 44583-3, 3016-3, 17349-5, 9 #### [facility] ([id number]) [address], [address] [place] [address] Urea nitrogen [Mass/Vol] 14 mg/dL Normal 5-23 [facility] Comment on above: Performed By: #### C BCA, CMP, 22816-6, 3016-3, 67876-7, 9 #### [facility] ([id number]) [address], [address] [place] [address] CT BRAIN WO CONTon CT BRAIN WO [...] Hathaway MD on 06/01/2023 6:15 AM Normal [facility] ETHANOLon 06-01-2023 Ethanol [Mass/Vol] mg/dL Normal 0.00-0.08 [facility] Comment on above: Result Comment: This report is intended for use in clinical monitoring or management of patients. Performed By: #### C BCA, CMP, 75034-9, 3016-3, 52133-6, 2131-11 #### [facility] ([id number]) [address], [address] [place] [address] Glucose Glucometer (BldC) [M ass/Vol]on 06-01-2023 Glucose [Mass/Vol] 258 mg/dL High 65-99 [facility] HCG ( test) IA.rapi d Ql (S)on 06-01-2023 SERUM Negative Normal NEG [facility] Comment on above: Performed By: #### C BCA, CMP, 94880-8, 3016-3, 47983-7, 2131-11 #### [facility] ([id number]) [address], [address] [place] [address] LIPASEon 06-01-2023 Lipase [Catalytic activity/Vol] 36 U/L Normal 17-40 [facility] Comment on above: Performed By: #### C BCA, CMP, 70238-7, 3016-3, 88806-9, 9 #### [facility] ([id number]) [address], [address] [place] [address] Lactate (P rm) [Moles/Vol]o n 06-01-2023 Lactate [Moles/Vol] 1.4 mmol/L Normal 0.4-2.0 [facility] Comment on above: Performed By: #### C BCA, CMP, 66120-1, 3016-3, 34597-3, 9 #### [facility] ([id number]) [address], [address] [place] [address] LACTATE W/REFLEX 3.9 mmol/L High 0.4-2.[address] [facility] Comment on above: Performed By: #### C BCA, 58358-5, 67999-6, 5643-2, CMP, 77805- 9, 3298-7, 2157-6, 4024-6, 79422-9, 3040-3 #### [facility] ([id number]) [address] [place] [address], [place] [address] MAGNESIUMon 06-01-2023 Magnesium [Mass/Vol] 2.0 mg/dL Normal 1.8-2.6 [facility] Comment on above: Performed By: #### C BCA, CMP, 60009-9, 3016-3, 52451-1, 2131-11 #### [facility] ([id number]) [address], [address] [place] [address] Salicylates [Mass/Vol]on SALICYLATE <4.0 Normal 2.0-25.0 [facility] Comment on above: Result Comment: Refe rence ranges are for therapeutic limits. Performed By: #### C BCA, CMP, 64546-5, 3016-3, 35454-4, 2131-11 #### [facility] ([id number]) [address], [address] [place] [address] TROPONIN Ion 06-01-2023 Troponin I.cardiac [Mass/Vol] 0.01 ng/mL Normal 0.00-0.04 [facility] Comment on above: Performed By: #### C BCA, CMP, 99494-5, 3016-3, 36433-7, 9 #### [facility] ([id number]) [address], [address] [place] [address] XR CHEST 1 VWon 06-01-2023 XR CHEST 1 VW XR CHEST 1 VW Clinical history: Aspiration pneumonia Views: 1 Comparison: 08/21/2021 Findings/Impression: 1. No acute infiltrate. No volume loss nor consolidation. There is no pleural effusion, pneumothorax, nor volume loss. Heart and mediastinal structures are unremarkable. Pulmonary vasculature stable. 2. No significant change Finalized by Srikanth Hathaway MD on 06/01/2023 6:06 AM Normal [facility] PAP IG, APT HPV RFX 16/18,45 on 04-14-2023 HPV APTIMA Negative Negative [facility] Comment on above: This nucleic acid am plification test detects fourteen high- risk HPV types (16,18,31,33,35,39,45,51,52,56,58,59,66,68) without differentiation. Performed at: - [facility] [id number] [place]: Korin Hernandez MD, Phone: [phone] Performed at: =G - [facility] [id number] [place]: Korin Hernandez MD, Phone: [phone] PAP IG (IMAGE GUIDED) Note . [facility] Comment on above: TESTS RESULT FLAG UN ITS REF RANGE LAB Clinician Provided Cytology Information Source.............Cervix;Endocervix No. of containers..01 ThinPrep Vial DIAGNOSIS: 01 NEGATIVE FOR INTRAEPITHELIAL LESION OR MALIGNANCY. Specimen adequacy: 01 Satisfactory for evaluation. Endocervical and/or squamous metaplastic cells (endocervical component) are present. Performed by: Chata Fernandez, Oncology Nurse ([facility]) . 01 Note: Note 01 The Pap [...] Low,>-Panic High,A-Abnormal,AA-Critical Abnormal Performed at: 01 [facility] [address] [address] Korin Hernandez MD, BRUSH-SPATULA CERVIX ENDOCERVIX [facility] CBC AND AUTO DIFFon 04-11-19 24 ABSOLUTE BASOPHIL 0.0 X10E9/L Normal 0.0-0.2 [facility] Comment on above: Performed By: #### C GALILEO ROBLES, 84685-8, 3016-3, 22312-8, 2131-11 #### [facility] ([id number]) [address], [address] [place] [address] ABSOLUTE NEUTROPHIL 3.8 X10E9/L Normal 1.5-6.6 [facility] Comment on above: Performed By: #### C GALILEO ROBLES, 40109-7, 3016-3, 69874-5, 2131-11 #### [facility] ([id number]) [address], [address] [place] [address] Basophils/100 WBC (Bld) 0.3 % Normal [facility] Comment on above: Performed By: #### C BCA, CMP, 48244-3, 3016-3, 27955-8, 2131-11 #### [facility] ([id number]) [address], [address] [place] [address] Eosinophils (Bld) [#/Vol] 0.2 10*3/uL Normal 0.0-0.4 [facility] Comment on above: Performed By: #### C BCA, CMP, 75404-6, 3016-3, 98554-0, 2131-11 #### [facility] ([id number]) [address] [facility] [address] [place] [address] Eosinophils/100 WBC (Bld) 2.9 % Normal [facility] Comment on above: Performed By: #### C BCA, CMP, 65566-3, 3016-3, 87545-3, 2131-11 #### [facility] ([id number]) [address], [address] [place] [address] Erythrocyte distribution width (RBC) [Ratio] 14.1 % Normal 11.5-15.0 [facility] Comment on above: Performed By: #### C BCA, CMP, 45872-0, 3016-3, 37135-2, 2131-11 #### [facility] ([id number]) [address] [place] [address] Hematocrit (Bld) [Volume fraction] 38.9 % Normal 35-47 [facility] Comment on above: Performed By: #### C BCA, CMP, 04562-8, 3016-3, 88605-3, 2131-11 #### [facility] ([id number]) [address] [address] [place] [address] Hemoglobin (Bld) [Mass/Vol] 13.3 g/dL Normal 11.7-15.5 [facility] Comment on above: Performed By: #### C BCA, CMP, 73943-6, 3016-3, 71376-1, 2131-11 #### [facility] ([id number]) [address] [address] [place] [address] Lymphocytes (Bld) [#/Vol] 2.7 10*3/uL Normal 1.0-3.5 [facility] Comment on above: Performed By: #### C BCA, CMP, 27373-0, 3016-3, 98778-9, 2131-11 #### [facility] ([id number]) [address], [facility] [address] [place] [address] Lymphocytes/100 WBC (Bld) 38.4 % Normal [facility] Comment on above: Performed By: #### C BCA, CMP, 95988-5, 3016-3, 54038-7, 2131-11 #### [facility] ([id number]) [address], [facility] [address] [place] [address] MCH (RBC) [Entitic mass] 30.8 pg Normal 27-34 [facility] Comment on above: Performed By: #### C BCA, CMP, 87326-7, 3016-3, 49625-6, 2131-11 #### [facility] ([id number]) [address] [address] [place] [address] MCHC (RBC) [Mass/Vol] 34.2 g/dL Normal 32-36 [facility] Comment on above: Performed By: #### C BCA, CMP, 15612-7, 3016-3, 75742-1, 2131-11 #### [facility] ([id number]) [address] [address] [place] [address] MCV (RBC) [Entitic vol] 90 fL Normal 80-100 [facility] Comment on above: Performed By: #### C BCA, CMP, 69974-2, 3016-3, 53388-8, 2131-11 #### [facility] ([id number]) [address], [address] [place] [address] Monocytes (Bld) [#/Vol] 0.3 10*3/uL Normal 0-0.9 [facility] Comment on above: Performed By: #### C BCA, CMP, 98874-7, 3016-3, 04646-4, 2131-11 #### [facility] ([id number]) [address], [address] [place] [address] Monocytes/100 WBC (Bld) 4.9 % Normal [facility] Comment on above: Performed By: #### C BCA, CMP, 48253-1, 3016-3, 16409-3, 2131-11 #### [facility] ([id number]) [address], [address] [place] [address] Neutrophils/100 WBC (Bld) 53.5 % Normal [facility] Comment on above: Performed By: #### C BCA, CMP, 16490-1, 3016-3, 20997-9, 2131-11 #### [facility] ([id number]) [address], [address] [place] [address] Platelet mean volume (Bld) [Entitic vol] 8.4 fL Normal 7-12 [facility] Comment on above: Performed By: #### C BCA, CMP, 63299-0, 3016-3, 77106-9, 2131-11 #### [facility] ([id number]) [address] [place] [address] Platelets (Bld) [#/Vol] 258 10*3/uL Normal 150-450 [facility] Comment on above: Performed By: #### C BCA, CMP, 50383-6, 3016-3, 27416-3, 2131-11 #### [facility] ([id number]) [address] [place] [address] RBC COUNT 4.32 X10E12/L Normal 3.80-5.20 [facility] Comment on above: Performed By: #### C BCA, CMP, 16710-4, 3016-3, 30543-3, 2131-11 #### [facility] ([id number]) [address] [place] [address] WBC (Bld) [#/Vol] 7.1 10*3/uL Normal 4.0-11.0 [facility] Comment on above: Performed By: #### C BCA, CMP, 65639-2, 3016-3, 88410-7, 2131-11 #### [facility] ([id number]) [address] [place] [address] CBC W Auto Differential pane l (Bld)on 04-11-2023 ABSOLUTE BASOPHIL 0.0 [facility] Comment on above: PERFORMED AT [facility] [address],[place] [address] Basophils/100 WBC (Bld) 0.3 % [facility] Eosinophils (Bld) [#/Vol] 0.2 10*3/uL [facility] Eosinophils/100 WBC (Bld) 2.9 % [facility] Erythrocyte distribution width (RBC) [Ratio] 14.1 % 11.5 - 15.0 % [facility] Hematocrit (Bld) [Volume fraction] 38.9 % 35 - 47 % [facility] Hemoglobin (Bld) [Mass/Vol] 13.3 g/dL 11.7 - 15.5 g/dL [facility] Lymphocytes (Bld) [#/Vol] 2.7 10*3/uL [facility] Lymphocytes/100 WBC (Bld) 38.4 % [facility] MCH (RBC) [Entitic mass] 30.8 pg 27 - 34 pg [facility] MCHC (RBC) [Mass/Vol] 34.2 g/dL 32 - 36 g/dL N [facility] MCV (RBC) [Entitic vol] 90 fL 80 - 100 fL [facility] Monocytes (Bld) [#/Vol] 0.3 10*3/uL [facility] Monocytes/100 WBC (Bld) 4.9 % [facility] Neutrophils (Bld) [#/Vol] 3.8 10*3/uL [facility] Neutrophils/100 WBC (Bld) 53.5 % [facility] Platelet mean volume (Bld) [Entitic vol] 8.4 fL 7 - 12 fL [facility] Platelets (Bld) [#/Vol] 258 10*3/uL [facility] RBC (Bld) [#/Vol] 4.32 10*6/uL [facility] WBC corrected for nucl RBC Auto (Bld) [#/Vol] 7.1 [facility] COMPREHENSIVE METABOLIC PANE Jamel 04-11-2023 Albumin [Mass/Vol] 4.3 g/dL Normal 3.2-5.3 [facility] Comment on above: Performed By: #### C BCA, CMP, 28481-0, 3016-3, 53084-3, 2131-11 #### [facility] ([id number]) [address] [place] [address] ALP [Catalytic activity/Vol] 70 U/L Normal 39-130 [facility] Comment on above: Performed By: #### C BCA, CMP, 82602-2, 3016-3, 15868-2, 2131-11 #### [facility] ([id number]) [address] [place] [address] ALT [Catalytic activity/Vol] 17 U/L Normal 0-31 [facility] Comment on above: Performed By: #### C BCA, CMP, 11057-6, 3016-3, 88518-2, 2131-11 #### [facility] ([id number]) [address] [place] [address] Anion gap [Moles/Vol] 9 mmol/L Normal 5-15 [facility] Comment on above: Performed By: #### C BCA, CMP, 23925-6, 3016-3, 92500-2, 2131-11 #### [facility] ([id number]) [address] [place] [address] AST [Catalytic activity/Vol] 17 U/L Normal 0-41 [facility] Comment on above: Performed By: #### C BCA, CMP, 05882-9, 3016-3, 56016-7, 2131-11 #### [facility] ([id number]) [address] [place] [address] Bilirubin [Mass/Vol] 0.4 mg/dL Normal 0.3-1.2 [facility] Comment on above: Performed By: #### C BCA, CMP, 18424-1, 3016-3, 30533-3, 2131-11 #### [facility] ([id number]) [address] [place] [address] Calcium [Mass/Vol] 9.2 mg/dL Normal 8.5-10.5 [facility] Comment on above: Performed By: #### C BCA, CMP, 37256-5, 3016-3, 66905-3, 2131-11 #### [facility] ([id number]) [address] [place] [address] Chloride [Moles/Vol] 108 mmol/L Normal 98-109 [facility] Comment on above: Performed By: #### C BCA, CMP, 94762-0, 3016-3, 39661-2, 9 #### [facility] ([id number]) [address] [place] [address] CO2 [Moles/Vol] 26 mmol/L Normal 22-32 [facility] Comment on above: Performed By: #### C BCA, CMP, 09232-0, 3016-3, 65654-5, 9 #### [facility] ([id number]) [address] [place] [address] Creatinine [Mass/Vol] 0.56 mg/dL Normal 0.40-1.00 [facility] Comment on above: Result Comment: METH OD TRACEABLE TO IDMS STANDARD Performed By: #### C BCA, CMP, 29788-6, 3016-3, 96907-4, 2131-11 #### [facility] ([id number]) [address] [place] [address] eGFR (CKD-EPI) NON-RACE DEPENDENT >90 Normal >59 [facility] Comment on above: Result Comment: Reported eGFR is based on the CKD-EPI 2020 equation that does not use a race coefficient. Performed By: #### C BCA, CMP, 48231-3, 3016-3, 63085-8, 2131-11 #### [facility] ([id number]) [address] [place] [address] Glucose [Mass/Vol] 83 mg/dL Normal 65-99 [facility] Comment on above: Performed By: #### C BCA, CMP, 01648-8, 3016-3, 16157-6, 2131-11 #### [facility] ([id number]) [address] [place] [address] Potassium [Moles/Vol] 4.0 mmol/L Normal 3.5-5.0 [facility] Comment on above: Performed By: #### C BCA, CMP, 44269-6, 3016-3, 32108-9, 9 #### [facility] ([id number]) [address] [place] [address] Protein [Mass/Vol] 6.7 g/dL Normal 6.0-8.0 [facility] Comment on above: Performed By: #### C BCA, CMP, 55349-1, 3016-3, 33461-4, 9 #### [facility] ([id number]) [address] [place] [address] Sodium [Moles/Vol] 143 mmol/L Normal 134-146 [facility] Comment on above: Performed By: #### C BCA, CMP, 21844-9, 3016-3, 39520-9, 2131-11 #### [facility] ([id number]) [address] [address] [place] [address] Urea nitrogen [Mass/Vol] 12 mg/dL Normal 5-23 [facility] Comment on above: Performed By: #### C BCA, CMP, 30051-7, 3016-3, 41487-8, 2131-11 #### [facility] ([id number]) [address] [facility] [place] [address] HGB A1C (GLYCO-HGB)on 2023 Glucose [Mass/Vol] 105 mg/dL Normal [facility] Comment on above: Performed By: #### C BCA, CMP, 32667-6, 3016-3, 71852-1, 2131-11 #### [facility] ([id number]) [address] [address] [place] [address] HbA1c (Bld) [Mass fraction] 5.3 % Normal 4.4-5.6 [facility] Comment on above: Result Comment: NOTE ADA Guidelines Result HgbA1c Normal : less than 5.7 % Prediabetes : 5.7 % to 6.4 % Diabetes : > 6.4 % Use with caution in patients with abnormal hemoglobin variants as the half-life of red blood cells and in vivo glycation rates are affected. Performed By: #### C BCA, CMP, 67120-0, 3016-3, 23330-7, 2131-11 #### [facility] ([id number]) [address] [address] [place] [address] Lipid 1996 panelon Cholesterol [Mass/Vol] 144 mg/dL Low 150-200 [facility] Comment on above: Performed By: #### C BCA, CMP, 50269-4, 3016-3, 18324-5, 2131-11 #### [facility] ([id number]) [address] [place] [address] Cholesterol in HDL [Mass/Vol] 65 mg/dL Normal >39 [facility] Comment on above: Result Comment: HDL <40 mg/dL - High Risk HDL > or = 40mg/dL- Desirable HDL >60 mg/dL - Negative Risk Performed By: #### C BCA, CMP, 58433-7, 3016-3, 16836-0, 2131-11 #### [facility] ([id number]) [address] [place] [address] Cholesterol in LDL [Mass/Vol] 54 mg/dL Normal <130 [facility] Comment on above: Result Comment: LDL <100 mg/dL - Desirable LDL >160 mg/dL - High Risk Performed By: #### Sameer BCA, CMP, 16938-9, 3016-3, 66883-4, 2131-11 #### [facility] ([id number]) [address] [place] [address] Cholesterol in VLDL [Mass/Vol] 25 mg/dL Normal 0-30 [facility] Comment on above: Performed By: #### Sameer BCA, CMP, 77052-3, 3016-3, 22217-1, 2131-11 #### [facility] ([id number]) [address] [place] [address] CHOLESTEROL:HDL 2.2 Normal 1.0-5.0 [facility] Comment on above: Performed By: #### C BCA, CMP, 36721-1, 3016-3, 21015-2, 2131-11 #### [facility] ([id number]) [address] [place] [address] Triglyceride [Mass/Vol] 125 mg/dL Normal 27-150 [facility] Comment on above: Performed By: #### C BCA, [facility], 95190-4, 3016-3, 77366-7, 2131-11 #### [facility] ([id number]) [address] [place] [address] TSH Qnon 04-11-2023 TSH 1.54 uIU/mL Normal 0.49-4.67 [facility] Comment on above: Performed By: #### C BCA, [facility], 64680-4, 3016-3, 77483-7, 2131-11 #### [facility] ([id number]) [address] [place] [address] VITAMIN B12on 04-11-2023 Cobalamin (Vitamin B12) [Mass/Vol] 510 pg/mL Normal 180-914 [facility] Comment on above: Performed By: #### C BCA, [facility], 07536-9, 3016-3, 37031-3, 2131-11 #### [facility] ([id number]) [address] [place] [address] Vitamin D+Metabolites [Mass/ Vol]on 04-11-2023 VITAMIN D 25 HYD TOT 42.1 ng/mL Normal 30-100 [facility] Comment on above: Result Comment: Vitamin D status 25 [place] Vitamin D Deficiency <20 ng/mL Insufficiency 20-29 ng/mL Sufficiency 30-100 ng/mL Toxicity >100 ng/mL NOTE: A pediatric reference range has not been established by the brewing technician of this kit. The [place] [employer] recommends a Vitamin D level of = or >20ng/mL in infants and children. Performed By: #### C TRAVIS, [facility], 25539-3, 3016-3, 35140-6, 2132-9 #### [facility] ([id number]) [address] [facility] [place] [address] XR pre/post mri xrayon 02-23 XR pre/post mri xray [facility] Main [address] [address] MRI Report Signed Patient: Tyrone Lim MR#: [id number] : 1985 Acct:[id number] Age/Sex: 38 / F ADM Date: 02/23/23 Loc: MR Room: Type: [facility] Attending Dr: Johana HUTCHINSON Copies to: EVANGELINA Israel Ordering Provider: EVANGELINA Israel Date of Service: 02/23/23 MR/MR lumbar spine wo/w con: Z98.1 ([id number]) XR/XR pre/post mri xray: Z98.1 MR lumbar [...] Jason Stone M.D.02/23/2023 5:57 PM Dictation Location: [place] [address] Transcribed By: [facility] 02/23/231756 Dictated By: Jason Stone II, MD 02/23/231743 Signed By: 02/23/231756 Normal [facility] Hep C RT-PCR, Qnt (Non-Graph )on 12-13-2022 Hepatitis C Quantitation Not detected Normal . [facility] Comment on above: Order Comment: Reaso n for Exam Hepatitis C Performed By: #### H CV RNAQNT ####[facility] , Test Information: Normal . [facility] Comment on above: Order Comment: Reaso n for Exam Hepatitis C Result Comment: The quantitative range of this assay is 15 IU/mL to 100 million IU/mL. Performed at: [address] [id number] [place]: Augsuto Lowry MD, Phone: [phone] PERFORMED BY: [facility] [address] [place] [address] PATHOLOGIST BLOCKING MACHINE OPERATOR LAURI PATEL M.D. Performed By: #### H CV RNAQNT ####[facility] , Hepatitis C virus RNA [log u nits/volume] (viral load) in Serum or Plasma by BETITO withOrdered By: Ladarius Pitts on 12-13-2022 HCV RNA BETITO+probe [Log units/Vol] Not detected . [facility] No Panel InformationOrdered By: Ladarius Pitts on 12-13-2022 Hepatitis C RNA (PCR) Interpret See comment . [facility] Comment on above: The quantitative ran ge of this assay is 15 IU/mL to 100million IU/mL.Performed at: [facility] [address] [id number] Director: Augusto Lowry MD, Phone: [phone] Aerobic Cultureon 09-22-2022 Aerobic Culture ORGANISM: Methicilli [...] RESISTANT TO ALL B-LACTAM DRUGS. PERFORMED BY: [place] [address] PATHOLOGIST BLOCKING MACHINE OPERATOR LAURI PATEL M.D. Normal [facility] Comment on above: Performed By: #### A GRETTA, GS #### [place] [id number] [facility] Anaerobic cultureOrdered By: Berenice Haile on 09-22-2022 Bacteria identified Anaer cx Nom (Unsp spec) No Anaerobes Isolated 3 Days [facility] Bacteria identified Aer cx N om (Unsp spec)Ordered By: Berenice Haile on 09-22-2022 Aerobic Culture Methicillin Resis St aph Aureus [facility] Gram Stainon 09-22-2022 Microscopic observation Gram stain Nom (Unsp spec) Gram Stain Result 2+ Gram Positive Cocci 1+ White Blood Cells PERFORMED BY: [place] [address] PATHOLOGIST BLOCKING MACHINE OPERATOR LAURI PATEL M.D. Normal [facility] Comment on above: Performed By: #### A GRETTA, GS #### [address] Gram stain for investigation of transfusion reactionOrdered By: Berenice Haile on 09-22-2022 Microscopic observation Gram stain Nom (Unsp spec) [facility] PAP ACOG PANEL 2: 30 to 65on 06-02-2022 . . Normal [facility] Comment on above: Result Comment: Perf ormed at: WB Performed By: #### V B12LC #### [facility] [address] [place] [address] [address] Drew Castel Age Gdln ACOG Testing 30-65 Normal [facility] Comment on above: Performed By: #### V B12LC #### [facility] [id number] Drew Castle DIAGNOSIS: Comment Abnormal [facility] Comment on above: Result Comment: EPIT HELIAL CELL ABNORMALITY. LOW GRADE SQUAMOUS INTRAEPITHELIAL LESION (LSIL). FUNGAL ORGANISMS MORPHOLOGICALLY CONSISTENT WITH CANDICE SPECIES ARE PRESENT. Performed at: WB Performed By: #### V B12LC #### [facility] [address] [place] [address] Dr. Drew Castle Electronically signed by: Comment Normal [facility] Comment on above: Result Comment: Liz Bryant MD, Pathologist Performed at: WB Performed By: #### V B12LC #### [facility] [address] [place] [address] Dr. Drew Castle HPV Aptima Negative Normal Negative [facility] Comment on above: Result Comment: This nucleic acid amplification test detects fourteen high-risk HPV types (16,18,31,33,35,39,45,51,52,56,58,59,66,68) without differentiation. Performed at: =G Performed By: #### V B12LC #### [facility] [address] [place] [address] Dr. Drew Castle HPV Genotype Reflex Comment Normal [facility] Comment on above: Result Comment: Crit eria not met, HPV Genotype not performed. Performed at: WB Performed By: #### V B12LC #### [facility] [address] [place] [address] Dr. Drew Castle Methodology: Comment Normal [facility] Comment on above: Result Comment: This liquid based ThinPrep(R) pap test was screened with the use of an image guided system. Performed at: WB Performed By: #### V B12LC #### [place] [address] Dr. Drew Castle Note: Comment Normal [facility] Comment on above: Result Comment: The Pap smear is a screening test designed to aid in the detection of premalignant and malignant conditions of the uterine cervix. It is not a diagnostic procedure and should not be used as the sole means of detecting cervical cancer. Both false-positive and false-negative reports do occur. . Performed at: WB Performed By: #### V B12LC #### [facility] [address] [place] [address] Dr. Drew Castle Pathologist Provided ICD10 Comment Normal [facility] Comment on above: Result Comment: R87. 612, R87.5 Performed at: WB Performed By: #### V B12LC #### [facility] [address] [place] [address] Dr. Drew Castle Performed by: Comment Normal [facility] Comment on above: Result Comment: Carley Irvin, Oncology Nurse (ASCP) Performed at: WB Performed By: #### V B12LC #### [facility] [address] [place] [address] Dr. Drew Castle Specimen adequacy: Comment Normal [facility] Comment on above: Result Comment: Sati sfactory for evaluation. Endocervical and/or squamous metaplastic cells (endocervical component) are present. Performed at: WB Performed By: #### V B12LC #### [facility] [address] [place] [address] Dr. Drew Castle VAGINITIS/VAGINOSIS DNA PROB Garry 05-26-2022 Candice species Positive Abnormal Negative [facility] Comment on above: Performed By: #### V B12LC #### [facility] [address] [place] [address] Dr. Drew Castle Gardnerella vaginalis Positive Abnormal Negative [facility] Comment on above: Performed By: #### V B12LC #### [facility] [address] [place] [address] Dr. Drew Castle Trichomonas vaginalis Negative Normal Negative [facility] Comment on above: Performed By: #### V B12LC #### [facility] [address] [place] [address] Dr. Drew Castle CULTURE WOUNDon 01-21-2022 CULTURE WOUND Culture Observations : No growth of aerobes at 48 hours. Culture Observations: No growth of anaerobes at 72 hours. Normal [facility] Comment on above: Performed By: #### W OUNDCX #### [facility] [address] [place] [address] Dr. Drew Castle VITAMIN B12on 08-08-2021 Cobalamin (Vitamin B12) [Mass/Vol] 1189 pg/mL Normal 232-1245 [facility] Comment on above: Performed By: #### V B12LC #### [facility] [address] [place] [address] Dr. Drew Castle CBC AUTO DIFFon 08-06-2021 BASO # 0.0 103/ul Normal 0.0-0.1 [facility] Comment on above: Performed By: #### V B12LC #### [facility] [address] [place] [address] Dr. Drew Castle Basophils/100 WBC (Bld) 0.4 % Normal 0.2-2.0 [facility] Comment on above: Performed By: #### V B12LC #### [facility] [address] [place] [address] Dr. Drew Castle EO # 0.3 103/ul Normal 0.0-0.7 [facility] Comment on above: Performed By: #### V B12LC #### [facility] [address] [place] [address] Dr. Drew Castle Eosinophils/100 WBC (Bld) 6.7 % Normal 0.9-7.0 [facility] Comment on above: Performed By: #### V B12LC #### [facility] [address] [place] [address] Dr. Drew Castle Erythrocyte distribution width (RBC) [Ratio] 13.8 % Normal 11.0-15.0 [facility] Comment on above: Performed By: #### V B12LC #### [facility] [address] [place] [address] Dr. Drew Castle Hematocrit (Bld) [Volume fraction] 37.3 % Normal 36.0-48.0 [facility] Comment on above: Performed By: #### V B12LC #### [facility] [address] [place] [address] Dr. Drew Castle Hemoglobin (Bld) [Mass/Vol] 12.0 g/dL Normal 12.0-16.0 [facility] Comment on above: Performed By: #### V B12LC #### [facility] [address] [place] [address] Dr. Drew Castle IG # 0.01 10e3/ul Normal 0.00-0.03 [facility] Comment on above: Performed By: #### V B12LC #### [facility] [address] [place] [address] Dr. Drew Castle IG % 0.2 % Normal 0.0-0.5 [facility] Comment on above: Performed By: #### V B12LC #### [facility] [address] [place] [address] Dr. Drew Castle LYMPH # 2.7 103/ul Normal 1.2-3.8 [facility] Comment on above: Performed By: #### V B12LC #### [facility] [address] [place] [address] Dr. Drew Castle Lymphocytes/100 WBC (Bld) 59.4 % Normal 20.5-60.0 [facility] Comment on above: Performed By: #### V B12LC #### [facility] [address] [place] [address] Dr. Drew Castle MANUAL DIFF REQ NO Normal [facility] Comment on above: Performed By: #### V B12LC #### [facility] [address] [place] [address] Dr. Drew Castle MCH (RBC) [Entitic mass] 30.6 pg Normal 26.7-34.0 [facility] Comment on above: Performed By: #### V B12LC #### [facility] [address] [place] [address] Dr. Drew Castle MCHC (RBC) [Mass/Vol] 32.2 g/dL Normal 29.9-35.2 [facility] Comment on above: Performed By: #### V B12LC #### [facility] [address] [place] [address] Dr. Drew Castle MCV (RBC) [Entitic vol] 95.2 fL Normal 81.0-99.0 [facility] Comment on above: Performed By: #### V B12LC #### [facility] [address] [place] [address] Dr. Drew Castle MONO # 0.4 103/ul Normal 0.3-0.8 [facility] Comment on above: Performed By: #### V B12LC #### [facility] [address] [place] [address] Dr. Drew Castle Monocytes/100 WBC (Bld) 8.5 % Normal 1.7-12.0 [facility] Comment on above: Performed By: #### V B12LC #### [facility] [address] [place] [address] Dr. Drew Castle NEUT # 1.1 103/ul Critically low 1.4-6.5 [facility] Comment on above: Performed By: #### V B12LC #### [facility] [address] [place] [address] Dr. Drew Castle Neutrophils/100 WBC (Bld) 24.8 % Critically low 43.0-75.0 [facility] Comment on above: Performed By: #### V B12LC #### [facility] [address] [place] [address] Dr. Drew Castle Platelet mean volume (Bld) [Entitic vol] 11.9 fL Normal 9.5-13.5 [facility] Comment on above: Performed By: #### V B12LC #### [facility] [address] [place] [address] Dr. Drew Castle PLT 212 103/ul Normal 150-450 [facility] Comment on above: Performed By: #### V B12LC #### [facility] [address] [place] [address] Dr. Drew Castle RBC 3.92 106/ul Critically low 4.20-5.40 [facility] Comment on above: Performed By: #### V B12LC #### [facility] [address] [place] [address] Dr. Drew Castle WBC 4.6 103/ul Normal 4.0-11.0 [facility] Comment on above: Performed By: #### V B12LC #### [facility] [address] [place] [address] Dr. Drew Castle FERRITINon 08-06-2021 Ferritin [Mass/Vol] 24.0 ng/mL Normal 6.2-137.0 [facility] Comment on above: Performed By: #### I ASHA, VITAD, FERR, FT4 #### [facility] [facility] [address] [address] [address] Drew Castle FREE T4on 08-06-2021 Free T4 [Mass/Vol] 0.79 ng/dL Normal 0.76-1.46 [facility] Comment on above: Performed By: #### I GAVINO ABRRY FERR, FT4 #### [facility] [address] [place] [address] Dr. Drew Castle GLYCOHEMOGLOBIN A1Con 2021 ADA RECOMMENDATION SEE BELOW Normal [facility] Comment on above: Result Comment: ADA RECOMMENDED LIMIT 4.0 - 6.0 ADA THERAPEUTIC TARGET < 7.0 ACTION SUGGESTED > 7.0 Performed By: #### A 1C #### [facility] [address] [place] [address] Dr. Drew Castle Glucose [Mass/Vol] 111 mg/dL Normal [facility] Comment on above: Performed By: #### A 1C #### [facility] [address] [place] [address] Dr. Drew Castle HbA1c (Bld) [Mass fraction] 5.5 % Normal 4.5-6.2 [facility] Comment on above: Performed By: #### A 1C #### [facility] [address] [place] [address] Dr. Drew Castle IRONon 08-06-2021 Iron [Mass/Vol] 76.0 ug/dL Normal 50.0-170.0 [facility] Comment on above: Performed By: #### I GAVINO BARRY FERR, FT4 #### [facility] [address] [place] [address] Dr. Drew Castle LIPID PROFILEon 08-06-2021 CHOL-HDL RATIO NORM SEE BELOW Normal [facility] Comment on above: Result Comment: 3.3 - 4.4 LOW RISK 4.4 - 7.1 AVERAGE RISK 7.1 - 11.0 MODERATE RISK >11.0 HIGH RISK Performed By: #### C MP, LIPID, TSH #### [facility] [address] [place] [address] Dr. Drew Castle Cholesterol [Mass/Vol] 150 mg/dL Normal <=200 [facility] Comment on above: Performed By: #### C MP, LIPID, TSH #### [facility] [address] [address] [address] Drew Castle Cholesterol in HDL [Mass/Vol] 59 mg/dL Normal 40-60 [facility] Comment on above: Performed By: #### C MP, LIPID, TSH #### [facility] [address] [address] [address] Drew Castle Cholesterol in LDL [Mass/Vol] 63.4 mg/dL Normal [facility] Comment on above: Performed By: #### C MP, LIPID, TSH #### [facility] [address] [address] [address] Drew Castle Cholesterol.total/Cho lesterol in HDL [Mass ratio] 2.5 {ratio} Normal [facility] Comment on above: Performed By: #### C MP, LIPID, TSH #### [facility] [address] [address] [address] Drew Castle HDL NORMAL > or = 60 mg/dl - LO W CARDIOVASCULAR RISK <40 mg/dl - HIGH CARDIOVASCULAR RISK Normal [facility] Comment on above: Performed By: #### C MP, LIPID, TSH #### [facility] [address] [address] [address] Drew Castle LDL CALC NORMAL SEE BELOW Normal [facility] Comment on above: Result Comment: <100 mg/dl OPTIMAL 100 - 129 mg/dl NEAR OR ABOVE OPTIMAL 130 - 159 mg/dl BORDERLINE HIGH 160 - 189 mg/dl HIGH >190 mg/dl VERY HIGH Performed By: #### C MP, LIPID, TSH #### [facility] [address] [address] [address] Drew Castle Triglyceride [Mass/Vol] 138 mg/dL Normal <=150 [facility] Comment on above: Performed By: #### C MP, LIPID, TSH #### [facility] [address] [address] [address] Drew Castle VLDL CALC 27.6 mg/dL Normal [facility] Comment on above: Performed By: #### C MP, LIPID, TSH #### [facility] [address] [address] [address] Drew Castle PROF 14(COMP METB)on 022 Albumin [Mass/Vol] 3.5 g/dL Normal 3.4-5.0 [facility] Comment on above: Performed By: #### C MP, LIPID, TSH #### [facility] [address] [address] [address] Drew Castle Albumin/Globulin [Mass ratio] 1.1 {ratio} Normal [facility] Comment on above: Performed By: #### C MP, LIPID, TSH #### [facility] [address] [address] [address] Drew Castle ALP [Catalytic activity/Vol] 61 U/L Normal 46-116 [facility] Comment on above: Performed By: #### C MP, LIPID, TSH #### [facility] [address] [address] [address] Drew Castle ALT [Catalytic activity/Vol] 29 U/L Normal 14-59 [facility] Comment on above: Performed By: #### C MP, LIPID, TSH #### [facility] [address] [address] [address] Drew Castle Anion gap [Moles/Vol] 13.9 mmol/L Normal [place] Comment on above: Performed By: #### C MP, LIPID, TSH #### [facility] [address] [address] [address] Drew Castle AST [Catalytic activity/Vol] 22 U/L Normal 15-37 [facility] Comment on above: Performed By: #### C MP, LIPID, TSH #### [facility] [address] [address] [address] Drew Castle Bilirubin [Mass/Vol] 0.4 mg/dL Normal 0.2-1.0 [facility] Comment on above: Performed By: #### C MP, LIPID, TSH #### [facility] [address] [address] [address] Drew Castle Calcium [Mass/Vol] 8.7 mg/dL Normal 8.5-10.1 [facility] Comment on above: Performed By: #### C MP, LIPID, TSH #### [facility] [address] [place] [address] Dr. Drew Castle Chloride [Moles/Vol] 107 mmol/L Normal 98-107 [facility] Comment on above: Performed By: #### C MP, LIPID, TSH #### [facility] [address] [place] [address] Dr. Drew Castle CO2 [Moles/Vol] 24.9 mmol/L Normal 21.0-32.0 [facility] Comment on above: Performed By: #### C MP, LIPID, TSH #### [facility] [address] [place] [address] Dr. Drew Castle Creatinine [Mass/Vol] 0.76 mg/dL Normal 0.55-1.02 [facility] Comment on above: Performed By: #### C MP, LIPID, TSH #### [facility] [address] [place] [address] Dr. Drew Castle EGFR-AF IRANIAN >60 Normal >=60 [facility] [place] Comment on above: Performed By: #### C MP, LIPID, TSH #### [facility] [address] [place] [address] Dr. Drew Castle EGFR-NON AF IRANIAN >60 Normal >=60 [facility] Comment on above: Performed By: #### C MP, LIPID, TSH #### [facility] [address] [place] [address] Dr. Drew Castle Globulin (S) [Mass/Vol] 3.1 g/dL Normal [facility] Comment on above: Performed By: #### C MP, LIPID, TSH #### [facility] [address] [place] [address] Dr. Drew Castle Glucose [Mass/Vol] 95 mg/dL Normal 74-106 [facility] Comment on above: Performed By: #### C MP, LIPID, TSH #### [facility] [address] [place] [address] Dr. Drew Castle Potassium [Moles/Vol] 3.8 mmol/L Normal 3.5-5.1 [facility] Comment on above: Performed By: #### C MP, LIPID, TSH #### [facility] [address] [place] [address] Dr. Drew Castle Protein [Mass/Vol] 6.6 g/dL Normal 6.4-8.2 [facility] Comment on above: Performed By: #### C MP, LIPID, TSH #### [facility] [address] [place] [address] Dr. Drew Castle Sodium [Moles/Vol] 142 mmol/L Normal 136-145 [facility] Comment on above: Performed By: #### C MP, LIPID, TSH #### [facility] [address] [place] [address] Dr. Drew Castle Urea nitrogen [Mass/Vol] 16.0 mg/dL Normal 7.0-18.0 [facility] Comment on above: Performed By: #### C MP, LIPID, TSH #### [facility] [address] [place] [address] Dr. Drew Castle Urea nitrogen/Creatinine [Mass ratio] 21.1 mg/mg Normal [facility] Comment on above: Performed By: #### C MP, LIPID, TSH #### [facility] [address] [place] [address] Dr. Drew Castle TSHon 08-06-2021 TSH 2.421 uIU/mL Normal 0.358-3.740 [facility] Comment on above: Performed By: #### C MP, LIPID, TSH #### [facility] [address] [place] [address] Dr. Drew Castle TSH RANGE SEE BELOW Normal [facility] Comment on above: Result Comment: <0.3 4 UIU/ml HYPERTHYROID 0.34-5.60 UIU/ml EUTHYROID >5.60 UIU/ml HYPOTHYROID Performed By: #### C MP, LIPID, TSH #### [facility] [address] [place] [address] Dr. Drew Castle UA RANDOM W/MICROSCOPICon BACTERIA NONE SEEN Normal NONE SEEN [facility] Comment on above: Performed By: #### V B12LC #### [facility] [address] [place] [address] Dr. Drew Castle Bilirubin Ql (U) SMALL Abnormal NEGATIVE [facility] [place] Comment on above: Performed By: #### V B12LC #### [facility] [address] [place] [address] Dr. Drew Castle CAST NONE SEEN Normal NONE SEEN [facility] Comment on above: Performed By: #### V B12LC #### [facility] [address] [place] [address] Dr. Drew Castle Clarity (U) CLOUDY Abnormal CLEAR [facility] Comment on above: Performed By: #### V B12LC #### [facility] [address] [place] [address] Dr. Drew Castle Color (U) DK. YELLOW Normal YELLOW [facility] Comment on above: Performed By: #### V B12LC #### [facility] [address] [place] [address] Dr. Drew Castle Crystals LM Nom (Urine sed) NONE SEEN Normal NONE SEEN [facility] Comment on above: Performed By: #### V B12LC #### [facility] [address] [place] [address] Dr. Drew Castle Epithelial cells LM Ql (Urine sed) RARE Normal NONE SEEN /RARE [facility] Comment on above: Performed By: #### V B12LC #### [facility] [address] [place] [address] Dr. Drew Castle Glucose Ql (U) Negative Normal NEGATIVE [facility] Comment on above: Performed By: #### V B12LC #### [facility] [address] [place] [address] Dr. Drew Castle Hemoglobin Ql (U) Negative Normal NEGATIVE [facility] Comment on above: Performed By: #### V B12LC #### [facility] [address] [place] [address] Dr. Drew Castle Ketones Ql (U) Negative Normal NEGATIVE [facility] Comment on above: Performed By: #### V B12LC #### [facility] [address] [place] [address] Dr. Drew Castle LEUKOCYTES Negative Normal NEGATIVE [facility] Comment on above: Performed By: #### V B12LC #### [facility] [address] [place] [address] Dr. Drew Castle MUCOUS NONE SEEN Normal NONE SEEN [facility] Comment on above: Performed By: #### V B12LC #### [facility] [address] [place] [address] Dr. Drew Castle Nitrite Ql (U) Negative Normal NEGATIVE [facility] Comment on above: Performed By: #### V B12LC #### [facility] [address] [place] [address] Dr. Drew Castle pH (U) 6.5 [pH] Normal 5-9 [facility] Comment on above: Performed By: #### V B12LC #### [facility] [address] [place] [address] Dr. Drew Castle RBC NONE SEEN Abnormal 0-2 [facility] Comment on above: Performed By: #### V B12LC #### [facility] [address] [place] [address] Dr. Drew Castle SPEC GRAVITY 1.025 Normal 1.005-<=1.02 5 [facility] Comment on above: Performed By: #### V B12LC #### [facility] [address] [place] [address] Dr. Drew Castle UA PROTEIN TRACE Normal NEGATIVE/ TRACE [facility] Comment on above: Performed By: #### V B12LC #### [facility] [address] [place] [address] Dr. Drew Castle Urobilinogen Qn (U) 1.0 {Jeff'U}/dL Normal 0.2 - 1. 0 [facility] Comment on above: Performed By: #### V B12LC #### [facility] [address] [place] [address] Dr. Drew Castle WBC NONE SEEN Normal NONE SEEN [facility] Comment on above: Performed By: #### V B12LC #### [facility] [address] [address] [address] Drew Castle VITAMIN D 25 OHon 08-06-2021 VIT D 25-OH 45.7 ng/mL Normal [facility] Comment on above: Performed By: #### I ASHA, VITAD, FERR, FT4 #### [facility] [address] [address] [address] Drew Castle VIT D RANGES SEE BELOW Normal [facility] Comment on above: Result Comment: <20 ng/mL Vit D deficient 20 - <30 ng/mL Vit D insufficient 30 - 100 ng/mL Vit D sufficient >100 ng/mL Potential Toxicity Performed By: #### I ASHA, VITAD, FERR, FT4 #### [facility] [address] [address] [address] Drew Castle Complete Blood Count Auto Di ffon 03-03-2021 Basophils (Bld) [#/Vol] 0.0 10*3/uL 0.0-0.2 [facility] Other Basophils/100 WBC (Bld) 0.2 % . [facility] Other Eosinophils (Bld) [#/Vol] 0.2 10*3/uL 0.0-0.45 [facility] Other Eosinophils/100 WBC (Bld) 2.4 % . [facility] Other Erythrocyte distribution width (RBC) [Ratio] 14.0 % 11.9-15.3 [facility] Other Hematocrit (Bld) [Volume fraction] 39.2 % 34.0-46.4 [facility] Other Hemoglobin (Bld) [Mass/Vol] 13.6 g/dL 11.8-15.4 [facility] Other Lymphocytes (Bld) [#/Vol] 2.3 10*3/uL 1.00-4.8 [facility] Other Lymphocytes/100 WBC (Bld) 31.0 % . [facility] Other MCH (RBC) [Entitic mass] 31.3 pg 24.7-34.3 [facility] Other MCH (RBC) [Entitic mass] 34.6 pg 32.0-35.0 [facility] Other MCV (RBC) [Entitic vol] 90.4 fL 80-100 [facility] Other Monocytes (Bld) [#/Vol] 0.3 10*3/uL 0.0-0.8 [facility] Other Monocytes/100 WBC (Bld) 4.7 % . [facility] Other Neutrophils (Bld) [#/Vol] 4.5 10*3/uL 1.8-7.7 [facility] Other Neutrophils/100 WBC (Bld) 61.7 % . [facility] Other Platelet mean volume (Bld) [Entitic vol] 8.3 fL 6.3-10.7 [facility] Other Platelets (Bld) [#/Vol] 232 10*3/uL 150-450 [facility] Other RBC (Bld) [#/Vol] 4.34 10*6/uL 3.60-5.00 [facility] Other WBC (Bld) [#/Vol] 7.3 10*3/uL 3.8-11.6 [facility] Other Complete Blood Count Auto Diff 7.3 4.5-11.0 [facility] Other Complete Blood Count Auto Diff 0.2 0-0.5 [facility] Other Prothrombin Time INRon 03-03 INR Coag (PPP) [Relative time] 1.2 {INR} [facility] Other PT Coag (PPP) [Time] 13.3 s 9.0-12.9 [facility] [employer] Other Acetaminophen levelOrdered B y: Sai Hernandez on 12-27-2020 Acetaminophen Level <5 Low 10 - 30 ug/mL [facility] Work Phone: Interpretation and review of laboratory results Abnormal [facility] Work Phone: [facility] Work Phone: Blood Gas, VenousOrdered By: Sai Hernandez on 12-27-2020 Manuel Test NOT REPORTED [facility] Work Phone: Carboxyhemoglobin NOT REPORTED 0.0 - 5.0 % [facility] Work Phone: Comment on above: FIO2 NOT REPORTED [employer] [facility] Work Phone: HCO3 (Bld) [Moles/Vol] 27.8 mmol/L 24.0 - 30.0 mmol/L [facility] Work Phone: Interpretation and review of laboratory results Abnormal [facility] Work Phone: Methemoglobin NOT REPORTED 0.0 - 1.9 % [facility] Work Phone: Mode NOT REPORTED [facility] Work Phone: Negative Base Excess, Rm NOT REPORTED 0.0 - 2.0 mmol/L [facility] Work Phone: NOTIFICATION NOT REPORTED [facility] Work Phone: NOTIFICATION TIME NOT REPORTED [facility] Work Phone: Sample Site NOT REPORTED [facility] Work Phone: Set Rate NOT REPORTED [facility] Work Phone: Text for Respiratory NOT REPORTED [facility] Work Phone: Total Hb NOT REPORTED 12.0 - 16.0 g/dl [facility] Work Phone: Total Rate NOT REPORTED [facility] Work Phone: VT NOT REPORTED [facility] Work Phone: [facility] Work Phone: CBC Auto DifferentialOrdered By: Sai Hernandez on 12-27-2020 Absolute Eos # 0.26 [facility] Work Phone: Absolute Immature Granulocyte <0.03 [facility] Work Phone: Absolute Lymph # 1.88 [facility] Work Phone: [facility] [place] # 0.36 [facility] Work Phone: Basophils (Bld) [#/Vol] 10*3/uL [employer] Work Phone: Basophils/100 WBC (Bld) 0 % 0 - 2 % [employer] Phone: Differential Type NOT REPORTED [facility] Phone: Eosinophils/100 WBC (Bld) 5 % High 1 - 4 % [employer] Work Phone: Hematocrit (Bld) [Volume fraction] 38.9 % 36.3 - 47.1 % [employer] Work Phone: Hemoglobin.gastrointe stinal spec 1 Ql (Stl) 12.5 g/dL 11.9 - 15.1 g/dL [facility] Phone: Immature granulocytes/100 WBC (Bld) 0 % 0 [employer] Work Phone: Interpretation and review of laboratory results Abnormal [facility] Phone: Lymphocytes/100 WBC (Bld) 38 % 24 - 43 % [employer] Work Phone: MCH (RBC) [Entitic mass] 29.3 pg 25.2 - 33.5 pg [employer] Phone: MCHC (RBC) [Mass/Vol] 32.1 g/dL 28.4 - 34.8 g/dL [facility] Phone: MCV (RBC) [Entitic vol] 91.3 fL 82.6 - 102.9 fL [facility] Phone: Monocytes/100 WBC (Bld) 7 % 3 - 12 % [employer] Work Phone: NRBC Automated 0.0 0.0 per 100 WBC [facility] Phone: Platelet distribution width (Bld) [Ratio] 13.3 % 11.8 - 14.4 % [employer] Work Phone: Platelet Estimate NOT REPORTED [employer] Work Phone: Platelet mean volume (Bld) [Entitic vol] 10.4 fL 8.1 - 13.5 fL [employer] Work Phone: Platelets (Bld) [#/Vol] 181 10*3/uL [employer] Phone: RBC (Bld) [#/Vol] 4.26 10*6/uL 3.95 - 5.1 1 m/uL [employer] Work Phone: RBC (Bld) [#/Vol] NOT REPORTED [employer] Work Phone: Segmented neutrophils/100 WBC (Bld) 50 % 36 - 65 % [employer] Work Phone: Segs Absolute 2[employer]49 [employer] Work Phone: WBC (Bld) [#/Vol] 5.0 10*3/uL [employer] Work Phone: WBC (Bld) [#/Vol] NOT REPORTED [facility] Phone: [employer] Work Phone: Comprehensive Metabolic Pane l w/ Reflex to MGOrdered By: Sai Hernandez on 12-27-2020 Albumin [Mass/Vol] 4.1 g/dL 3.5 - 5.2 g/dL [facility] Phone: Albumin/Globulin [Mass ratio] 1.7 {ratio} [employer] Work Phone: ALP (Bld) [Catalytic activity/Vol] 92 U/L 35 - 104 U/L [employer] Work Phone: ALT [Catalytic activity/Vol] 19 U/L 5 - 33 U/L [employer] Phone: Anion gap [Moles/Vol] 13 mmol/L 9 - 17 mmol/L [employer] Phone: AST [Catalytic activity/Vol] 25 U/L <32 [employer] Phone: Bilirubin [Mass/Vol] 0.57 mg/dL 0.3 - 1 .2 mg/dL [facility] Phone: Calcium [Mass/Vol] 9.4 mg/dL 8.6 - 10. 4 mg/dL [employer] Phone: Chloride [Moles/Vol] 101 mmol/L 98 - 10 7 mmol/L [employer] Phone: CO2 [Moles/Vol] 21 mmol/L 20 - 31 mmol/L [employer] Phone: Creatinine [Mass/Vol] 0.73 mg/dL 0.50 - 0.90 mg/dL [employer] Phone: Free PSA/Total PSA [Mass fraction] 6.5 g/dL 6.4 - 8.3 g/dL [facility] Phone: GFR >60 >60 mL/min [employer] Phone: GFR Non- >60 >60 mL/min [facility] Phone: Glucose [Mass/Vol] 104 mg/dL High 70 - 99 mg/dL [employer] Phone: Potassium [Moles/Vol] 4.0 mmol/L 3.7 - 5.3 mmol/L [employer] Phone: Sodium [Moles/Vol] 135 mmol/L 135 - 144 mmol/L [employer] Phone: Urea nitrogen (BldV) [Mass/Vol] 9 mg/dL 6 - 20 mg/dL [employer] Phone: Urea nitrogen/Creatinine (Bld) [Mass ratio] 12 [employer] Phone: Drug screen multi urineOrder ed By: [...] Interpretation and review of laboratory results Abnormal [facility] Work Phone: MDMA, Urine NOT REPORTED NEGATIVE [facility] Work Phone: Methadone Screen, Urine Negative NEGATIVE [facility] Work Phone: Methamphetamine, Urine Positive Abnormal NEGATIVE [facility] Work Phone: Opiates, Urine Negative NEGATIVE [facility] Work Phone: Oxycodone Screen, Ur Negative NEGATIVE [facility] Work Phone: Phencyclidine, Urine Negative NEGATIVE [facility] Work Phone: Propoxyphene, Urine Negative NEGATIVE [facility] Work Phone: Test Information NOT REPORTED [facility] Work Phone: Tricyclic Antidepressants, Urine Negative NEGATIVE [facility] Work Phone: Comment on above: Drug screen results are to be used for medical purposes only. All positive results are unconfirmed. Testing for employment or legal uses should be sent to a reference laboratory for confirmation. [facility] Work Phone: EthanolOrdered By: Sai munson on 12-27-2020 Ethanol [Mass/Vol] mg/dL <10 mg/dL [facility] Work Phone: Ethanol percent <0.010 <0.010 % [facility] Work Phone: [employer] Phone: Glucose, Whole BloodOrdered By: Sai Hernandez on 12-27-2020 Glucose [Mass/Vol] 75 mg/dL 74 - 100 mg/dL [facility] Phone: [facility] Phone: HCG, Quantitative, Ordered By: Sai Hernandez on 12-27-2020 hCG Quant <1 <5 IU/L [employer] Phone: Comment on above: Non-preg premeno <=5 Postmeno <=8 Male <=3 If HCG results do not concur with clinical observations, additional testing to confirm results is recommended. Elevated results not associated with may be found in patients with other diseases such as tumors of the germ cells (testis, ovaries, etc.), bladder, pancreas, stomach, lungs, and liver. [employer] Phone: Laboratory - Chemistry and C hemistry - challengeOrdered By: Sai Hernandez on 12-27-2020 GFR/1.73 sq M.predicted MDRD (S/P/Bld) [Vol rate/Area] [facility] Phone: Comment on above: Average GFR for 30-3 9 years old: 107 mL/min/1.73sq m Chronic Kidney Disease: <60 mL/min/1.73sq m Kidney failure: <15 mL/min/1.73sq m eGFR calculated using average adult body mass. Additional eGFR calculator available at: http://www.[employer]/multiple_crcl_2012.htm Stage 1: Some kidney damage normal GFR Stage 2: Mild kidney damage GFR 60-89 Stage 3: Moderate kidney damage GFR 30-59 Stage 4: Severe kidney damage GFR 15-29 Stage 5: Severe kidney damage GFR <15 ESRD - chronic treatment by dialysis or transplant No Panel InformationOrdered By: Sai Hernandez on 12-27-2020 Interpretation and review of laboratory results Abnormal [facility] Phone: [facility] Phone: SalicylateOrdered By: Gonzalez Hernandez on 12-27-2020 Salicylate Lvl <1 Low 3 - 10 mg/dL [facility] Work Phone: Urinalysis, reflex to micros copicOrdered By: Sai Hernandez on 12-27-2020 Bilirubin Urine Negative NEGATIVE [facility] Work Phone: Color, UA Yellow Yellow [facility] Work Phone: Glucose, Ur Negative NEGATIVE [facility] Work Phone: Interpretation and review of laboratory results Abnormal [facility] Work Phone: Ketones Ql (U) Negative NEGATIVE [facility] Work Phone: Leukocyte esterase Test strip Ql (U) Negative NEGATIVE [facility] Work Phone: Nitrite, Urine Negative NEGATIVE [facility] Work Phone: pH, UA 6.0 [facility] Work Phone: Protein, UA Negative NEGATIVE [facility] Work Phone: Specific [place], UA <1.005 Low [facility] Work Phone: Turbidity UA Clear Clear [facility] Work Phone: Urinalysis Comments NOT REPORTED [facility] Work Phone: Urine Hgb Negative NEGATIVE [facility] Work Phone: Urobilinogen, Urine Normal Normal [facility] Work Phone: [facility] Work Phone: Operative Reporton Operative Report MR#: [id number] [facility] Pt. Name: Tyrone Lim Room #: PMC [...] to interact and give feedback. The x-ray utility technician was supervised and instructed to operate [...] 5-inch Andrew spinal needle was inserted using mnvl-sne-tdbemo-of-the-n eedle technique. The needle was advanced into [...] Mckeon MD Date Trans: 07/08/2020 02:30 P/ [id number] Normal [facility] SPINAL PAIN BLOCKon 07-09-19 21 SPINAL PAIN BLOCK [facility] Department of Radiology [address] [place] [id number] == Patient Name: TYRONE LIM : 1985 Sex: F Age: Race: White Pt. Location: 18 Patient Status: Ordered Date: 07/08/2020 5:00:00 AM Completed Date: 07/08/2020 01:13 PM Requesting Provider: ALEYDA GOMEZ Attending Provider: Report Copy To: Signs & Symptoms: M96.1 Postlaminectomy syndrome, not elsewhere classified I10 History: Comments: 11475 (50) BILAT S1 TFESI #2 Exam: SPINAL PAIN BLOCK == SPINAL PAIN BLOCK 07/08/2020 1:13 PM SIGNS AND SYMPTOMS: M96.1 Postlaminectomy syndrome, not elsewhere classified I10 TECHNOLOGIST COMMENTS:bilateral S1 TFE .34 min. fluoro. time used - Dr. Gomez IMPRESSION: 0.34 minutes of fluoroscopy was provided for Dr. Gomez for an epidural pain block. Millicent Ferraro ,RT-R Elevated Guard Electronically signed: ONLY DOCUMENTATION. Transcribed by: [email or web address], User Resident: Electronically Signed by: ONLY DOCUMENTATION @ 07/08/2020 02:14 PM Normal [facility] Comment on above: Order Comment: [id number] (57) BILAT S1 TFESI #2 Operative Reporton 1 Operative Report MR#: [id number] [facility] Pt. Name: Tyrone Lim Room #: PMC [...] to interact and give feedback. The x-ray utility technician was supervised and instructed to operate [...] 25-gauge, 5-inch andrew needle was inserted using rrbo-idl-gfwcpy-of-the-n eedle technique. The needle was advanced into [...] Mckeon MD Date Trans: 06/23/2020 12:38 P/ [id number] Normal [facility] SPINAL PAIN BLOCKon 06-24-19 21 SPINAL PAIN BLOCK [facility] Department of Radiology [address] [place] [phone] == Patient Name: TYRONE LIM : 1985 Sex: F Age: Race: White Pt. Location: 18 Patient Status: Ordered Date: 06/11/2020 5:00:00 AM Completed Date: 06/23/2020 11:44 AM Requesting Provider: ALEYDA GOMEZ Attending Provider: Report Copy To: Signs & Symptoms: M96.1 Postlaminectomy syndrome, not elsewhere classified I10 History: Comments: [id number] (50) BILAT S1 TFESI #1 Exam: SPINAL PAIN BLOCK == SPINAL PAIN BLOCK 06/23/2020 11:44 AM SIGNS AND SYMPTOMS: M96.1 Postlaminectomy syndrome, not elsewhere classified I10 TECHNOLOGIST COMMENTS:Dr. Gomez used .43 min of white fluoro time arti S1 TFE IMPRESSION: 0.43 minutes of fluoroscopy was provided for her Patricia for an epidural pain block. ERIC BurchR Elevated Guard Electronically signed: ONLY DOCUMENTATION. Transcribed by: [email or web address], User Resident: Electronically Signed by: ONLY DOCUMENTATION @ 06/23/2020 03:20 PM Normal [facility] Comment on above: Order Comment: [id number] (50) BILAT S1 TFESI #1 MRI LUMBAR SPINE WO CONTRAST on 09-05-2019 MRI LUMBAR SPINE WO CONTRAST [facility] Department of Radiology [address] [place] [phone] == Patient Name: TYRONE LIM : 1985 Sex: F Age: Race: White Pt. Location: 18 Patient Status: D Ordered Date: 08/23/2019 8:55:00 AM Completed Date: 09/05/2019 11:17 AM Requesting Provider: ALEYDA GOMEZ Attending Provider: Report Copy To: Signs & Symptoms: M54.5 Low back pain I10 History: [facility] Auth via Clear Coverage for CPT 45163 Auth#[id number] Valid 08/28/19-11/26/19 *Sla No to all COVID [...] neuroforaminal narrowing as described. Electronically signed: Arsh Hatfiedl. Transcribed by: [email or web address], User Resident: Electronically Signed by: ARSH HATFIELD @ 09/06/2019 01:26 PM Normal [facility] Comment on above: Order Comment: Sharona monterroso Evaluate Operative Reporton 0 Operative Report MR#: [id number] [facility] Pt. Name: Tyrone Lim Room #: PMC [...] to interact and give feedback. The x-ray utility technician was supervised and instructed to operate [...] 5-inch Andrew spinal needle was inserted using syxr-vpf-pneqcz-of-the-n eedle technique. The needle was advanced into [...] Armijo MD Date Trans: 08/07/2019 03:57 P/ [id number] Normal [facility] SPINAL PAIN BLOCKon 08-07-19 SPINAL PAIN BLOCK [facility] Department of Radiology [address] [place] [phone] == Patient Name: TYRONE LIM : [...] for an epidural pain block. AMBAR Alcazar Elevated Guard Electronically signed: ONLY DOCUMENTATION. Transcribed by: [email or web address], User Resident: Electronically Signed by: ONLY DOCUMENTATION @ 08/13/2019 09:18 AM Normal [facility] Comment on above: Order Comment: LEFT S1 TFESI X1 Otheron 2019 Left foot: No acute osseous abnormality. Right foot: Nondisplaced fracture through the 5th metatarsal head without intra-articular extension. Comminuted distal 4th metatarsal fracture with slight impaction and overriding. No joint dislocation is noted. Soft tissue swelling over the forefoot is noted. [place] EXAMINATION: TWO XRA Y VIEWS OF [...] tissue swelling over the midfoot is noted. [place], Mhpn Incoming Radiant Results From [employer] - 2019 3:40 PM EST EXAMINATION: TWO [...] tissue swelling over the forefoot is noted. [place] Basic Metabolic Panelon 10-3 Anion gap [Moles/Vol] 10 mmol/L 9 - 17 mmol/L [place] Bun/Cre Ratio 9 [place] Calcium [Mass/Vol] 9.6 mg/dL 8.6 - 10. 4 mg/dL [place] Chloride [Moles/Vol] 107 mmol/L 98 - 10 7 mmol/L [place] CO2 [Moles/Vol] 22 mmol/L 20 - 31 mmol/L [place] Creatinine [Mass/Vol] 0.89 mg/dL 0.5 - 0.9 mg/dL [place] GFR >60 >60 mL/min [place] GFR Non- >60 >60 mL/min [place] Glucose [Mass/Vol] 75 mg/dL 70 - 99 mg/dL [place] Interpretation and review of laboratory results Abnormal [place] Potassium [Moles/Vol] 5.9 mmol/L High 3.7 - 5.3 mmol/L [place] Sodium [Moles/Vol] 139 mmol/L 135 - 144 mmol/L [place] Urea nitrogen [Mass/Vol] 8 mg/dL 6 - 20 mg/dL [place] C-Reactive Proteinon 01-03- 019 CRP [Mass/Vol] 3.4 mg/L 0 - 5 mg/L [place], [place] CBC Auto Differentialon 12-07 Basophils (Bld) [#/Vol] 0.03 10*3/uL [place] Basophils/100 WBC (Bld) 0 % 0 - 2 % [place] Differential Type NOT REPORTED [place] Eosinophils (Bld) [#/Vol] 0.39 10*3/uL [place] Eosinophils/100 WBC (Bld) 4 % 1 - 4 % [place] Erythrocyte distribution width (RBC) [Ratio] 12.7 % 11.8 - 14.4 % [place] Hematocrit (Bld) [Volume fraction] 46.9 % 36.3 - 47.1 % [place] Hemoglobin (Bld) [Mass/Vol] 15.6 g/dL High 11.9 - 15.1 g/dL [place] Immature granulocytes (Bld) [#/Vol] 1 % High 0 [place] Immature granulocytes (Bld) [#/Vol] 0.05 10*3/uL [place] Interpretation and review of laboratory results Abnormal [place] Lymphocytes (Bld) [#/Vol] 2.86 10*3/uL [place] Lymphocytes/100 WBC (Bld) 30 % 24 - 43 % [place] MCH (RBC) [Entitic mass] 30.6 pg 25.2 - 33.5 pg [place] MCHC (RBC) [Mass/Vol] 33.3 g/dL 28.4 - 34.8 g/dL [place] MCV (RBC) [Entitic vol] 92.0 fL 82.6 - 102.9 fL [place] Monocytes (Bld) [#/Vol] 0.62 10*3/uL [place] Monocytes/100 WBC (Bld) 7 % 3 - 12 % [place] Platelet mean volume (Bld) [Entitic vol] 11.0 fL 8.1 - 13.5 fL [place] Platelets (Bld) [#/Vol] 218 10*3/uL [place] Platelets (Bld) [#/Vol] NOT REPORTED [place] RBC (Bld) [#/Vol] 5.10 10*6/uL 3.95 - 5.1 1 m/uL [place] RBC morphology finding Nom (Bld) NOT REPORTED [place] Segmented neutrophils/100 WBC (Bld) 58 % 36 - 65 % [place] Segs Absolute 5.57 [place] WBC (Bld) [#/Vol] 9.5 10*3/uL [place] WBC (Bld) [#/Vol] 0.0 10*3/uL 0.0 per 10 0 WBC [place] WBC Morphology NOT REPORTED [facility] [place] D-Dimer, Quantitativeon 12-07 D-Dimer, Quant 0.57 High [facility] Comment on above: Elevated levels of D [...] Interpretation and review of laboratory results Abnormal [facility] [place] MRI LUMBAR SPINE WO CONTRAST on 01-03-2019 [place], [facility]pn Incoming Radiant Results From [employer] - 01/03/2019 5:32 PM EDT EXAMINATION: MRI [...] and contacting the left L5 nerve root. [facility] MRI OF THE LUMBAR SPINE WITHOUT [...] likely contacts the left L5 nerve root. [place] Large disc protrusio n within the left L5-S1 foramina causing severe stenosis and contacting the left L5 nerve root. [place] Metabolic Panelon 01-03-2019 GFR/1.73 sq M predicted among non-blacks MDRD (S/P/Bld) [Vol rate/Area] [place] Comment on above: Average GFR for 30-3 9 years old: 107 mL/min/1.73sq m Chronic Kidney Disease: <60 mL/min/1.73sq m Kidney failure: <15 mL/min/1.73sq m eGFR calculated using average adult body mass. Additional eGFR calculator available at: http://www.Flipiture.[employer]/multiple_crcl_2012.htm Stage 1: Some kidney damage normal GFR Stage 2: Mild kidney damage GFR 60-89 Stage 3: Moderate kidney damage GFR 30-59 Stage 4: Severe kidney damage GFR 15-29 Stage 5: Severe kidney damage GFR <15 ESRD - chronic treatment by dialysis or transplant Sedimentation Rateon 019 Sed Rate 5 mm 0 - 20 mm [place] Urinalysis with Microscopico n 01-03-2019 Amorphous, UA 1+ Abnormal None [place] Bacteria, UA TRACE Abnormal None [place], [place] Bilirubin Urine Negative NEGATIVE [place] Casts UA NOT REPORTED /LPF [place] Color, UA YELLOW YELLOW [place] Crystals UA CALCIUM OXALATE Abnormal None /HPF [place] Crystals UA 2 TO 5 Abnormal None /HPF [place] Epithelial Cells UA 2 TO 5 [place] Glucose, Ur Negative NEGATIVE [place] Interpretation and review of laboratory results Abnormal [place] Ketones Ql (U) TRACE Abnormal NEGATIVE [place], [place] Leukocyte esterase Test strip Ql (U) Negative NEGATIVE [place] Mucus, UA NOT REPORTED None [place], [place] Nitrite, Urine Negative NEGATIVE [place], [place] Other Observations UA NOT REPORTED NOT REQ. M [place], [place] pH, UA 5.5 [place] Protein (U) [Mass/Vol] Negative NEGATIVE [place] RBC (U) [#/Vol] None [place], [place] Renal Epithelial, Urine NOT REPORTED 0 /HPF [place] Specific [place], UA 1.020 [place], [place] Trichomonas, UA NOT REPORTED None [place], [place] Turbidity UA CLEAR CLEAR [place] Urinalysis Comments NOT REPORTED [place] Urine Hgb Negative NEGATIVE [place] Urobilinogen, Urine ELEVATED Abnormal Normal [place] WBC, UA 0 TO 2 [place] Yeast, UA NOT REPORTED None [place], [place] - [place] XR CHEST STANDARD (2 VW)on No acute cardiopulmo nary pathology. [place] EXAMINATION: TWO XRA Y VIEWS OF [...] structures and soft tissues are grossly intact. [place], [place] Incoming Radiant Results From [employer] - 01/03/2019 4:49 PM EDT EXAMINATION: TWO [...] grossly intact. IMPRESSION: No acute cardiopulmonary pathology. [facility] [place] VL DUP LOWER EXTREMITY VENOU S LEFTon 11-15-2018 [facility] Vascular Lower Extremities DVT Study Procedure Patient Name CARINA Date of Study 11/14/2018 HOLGER Kash Date of 1985 Gender Female Age 33 year(s) Race Room Number Corporate ID # [id number] Patient MR # [id number] Test Examiner FANG Banerjee Interpreting Physician Gino Shepherd Referring [...] !Popliteal !Phasic! ! ! + ----+------+------+----- ---+ [facility] [place], [place], [place] Incoming Cardio Results From [employer] - 11/15/2018 12:52 PM EDT [facility] Vascular Lower Extremities DVT Study Procedure Patient Name CARINA Date of Study 11/14/2018 HOLGER Hewitt Date of 1985 Gender Female Age 33 year(s) Race Room Number Corporate ID # [id number] Patient MR # [id number] Test Examiner FANG Banerjee Interpreting Physician Gino Shepherd Referring [...] !Phasic! ! ! + ----+------+------+----- --- + [facility] [place] Brain Natriuretic Peptideon 11-14-2018 Natriuretic peptide B (Bld) [Mass/Vol] 50 pg/mL <300 [place] Comment on above: Pro-BNP results audrey ot be compared to BNP results. Natriuretic peptide B (Bld) [Mass/Vol] Pro-BNP Reference Range: [place] Comment on above: Rule Out: <300 [place] Zone: Age <50 300-450 Age 50-75 300-900 Age >75 300-1800 Usually represents mild to moderate HF but other cardiopulmonary causes cannot be ruled out. Rule In: Age <50 >450 Age 50-75 >900 Age >75 >1800 CBC Auto Differentialon 11-05 Basophils (Bld) [#/Vol] 0.07 10*3/uL [place] Basophils/100 WBC (Bld) 1 % 0 - 2 % [place] Differential Type NOT REPORTED [place] Eosinophils (Bld) [#/Vol] 0.73 10*3/uL [place] Eosinophils/100 WBC (Bld) 11 % High 1 - 4 % [place] Erythrocyte distribution width (RBC) [Ratio] 13.2 % 11.8 - 14.4 % [place] Hematocrit (Bld) [Volume fraction] 39.1 % 36.3 - 47.1 % [place] Hemoglobin (Bld) [Mass/Vol] 12.8 g/dL 11.9 - 15.1 g/dL [place] Immature granulocytes (Bld) [#/Vol] 1 % High 0 [place] Immature granulocytes (Bld) [#/Vol] 0.07 10*3/uL [place] Interpretation and review of laboratory results Abnormal [place] Lymphocytes (Bld) [#/Vol] 1.78 10*3/uL [place] Lymphocytes/100 WBC (Bld) 27 % 24 - 43 % [place] MCH (RBC) [Entitic mass] 31.0 pg 25.2 - 33.5 pg [place] MCHC (RBC) [Mass/Vol] 32.7 g/dL 28.4 - 34.8 g/dL [place] MCV (RBC) [Entitic vol] 94.7 fL 82.6 - 102.9 fL [place] Monocytes (Bld) [#/Vol] 0.59 10*3/uL [place] Monocytes/100 WBC (Bld) 9 % 3 - 12 % [place] Morphology Cristiano (Bld) [Interp] Normal [place] Platelet mean volume (Bld) [Entitic vol] 11.2 fL 8.1 - 13.5 fL [place] Platelets (Bld) [#/Vol] NOT REPORTED [place] Platelets (Bld) [#/Vol] 213 10*3/uL [place] RBC (Bld) [#/Vol] 4.13 10*6/uL 3.95 - 5.1 1 m/uL [place] RBC morphology finding Nom (Bld) NOT REPORTED [place] Segmented neutrophils/100 WBC (Bld) 51 % 36 - 65 % [place] Segs Absolute 3.36 [place] WBC (Bld) [#/Vol] 6.6 10*3/uL [place] WBC (Bld) [#/Vol] 0.0 10*3/uL 0.0 per 10 0 WBC [place] WBC Morphology NOT REPORTED [place] Comprehensive Metabolic Pane l w/ Reflex to MGon 11-14-2018 Albumin [Mass/Vol] 3.6 g/dL 3.5 - 5.2 g/dL [place] Albumin/Globulin [Mass ratio] 1.3 {ratio} [place] ALP [Catalytic activity/Vol] 407 U/L High 35 - 104 U/L [place] ALT [Catalytic activity/Vol] 723 U/L High 5 - 33 U/L [place] Anion gap [Moles/Vol] 13 mmol/L 9 - 17 mmol/L [place] AST [Catalytic activity/Vol] 657 U/L High <32 [place] Bilirubin Ql (U) 1.91 mg/dL High 0.3 - 1.2 mg/dL [place] Bun/Cre Ratio 19 [place] Calcium [Mass/Vol] 8.9 mg/dL 8.6 - 10. 4 mg/dL [place] Chloride [Moles/Vol] 103 mmol/L 98 - 10 7 mmol/L [place] CO2 [Moles/Vol] 24 mmol/L 20 - 31 mmol/L [place] Creatinine [Mass/Vol] 0.96 mg/dL High 0.5 - 0.9 mg/dL [place] GFR >60 >60 mL/min [place] GFR Non- >60 >60 mL/min [place] Glucose [Mass/Vol] 71 mg/dL 70 - 99 mg/dL [place] Interpretation and review of laboratory results Abnormal [place] Potassium [Moles/Vol] 4.0 mmol/L 3.7 - 5.3 mmol/L [place] Protein [Mass/Vol] 6.4 g/dL 6.4 - 8.3 g/dL [place] Sodium [Moles/Vol] 140 mmol/L 135 - 144 mmol/L [place] Urea nitrogen [Mass/Vol] 18 mg/dL 6 - 20 mg/dL [place] HIV Screenon 11-14-2018 HIV Ag/Ab NONREACTIVE NONREACTIVE [place] Comment on above: No laboratory eviden ce of HIV infection. If acute HIV infection is suspected, consider testing for HIV-1 RNA. Hepatitis Panel, Acuteon HAV IgM IA Qn (S) NONREACTIVE NONREACTIVE [place] Hep B Core Ab, IgM NONREACTIVE NONREACTIVE [place] Hepatitis B Surface Ag NONREACTIVE NONREACTIVE [place] Hepatitis C Ab REACTIVE Abnormal NONREACTIVE [facility] [place] Comment on above: The hepatitis C [...] Interpretation and review of laboratory results Abnormal [place] Metabolic Panelon 11-14-2018 GFR/1.73 sq M predicted among non-blacks MDRD (S/P/Bld) [Vol rate/Area] [place] Comment on above: Average GFR for 30-3 9 years old: 107 mL/min/1.73sq m Chronic Kidney Disease: <60 mL/min/1.73sq m Kidney failure: <15 mL/min/1.73sq m eGFR calculated using average adult body mass. Additional eGFR calculator available at: http://www.Omgili/multiple_crcl_2012.htm Stage 1: Some kidney damage normal GFR Stage 2: Mild kidney damage GFR 60-89 Stage 3: Moderate kidney damage GFR 30-59 Stage 4: Severe kidney damage GFR 15-29 Stage 5: Severe kidney damage GFR <15 ESRD - chronic treatment by dialysis or transplant T. pallidum Abon 11-14-2018 T. pallidum, IgG NONREACTIVE NONREACTIVE [place] Comment on above: T. pallidum antibodies [...] joint. Please correlate with area of pain. [place] EXAMINATION: THREE X RAY VIEWS OF THE [...] spaces appear well maintained. No bony erosions. [employer], CHYNA [place], Mhpn Incoming Radiant Results From [employer] - 10/15/2018 10:00 AM EDT EXAMINATION: THREE [...] joint. Please correlate with area of pain. [employer], CHYNA XR ANKLE LEFT (MIN 3 VIEWS)o n [...] Oh Jr., DO 10/15/18 Final result Normal [facility] XR FOOT LEFT (MIN 3 VIEWS)on 10-15-2018 [...] Oh Jr., DO 10/15/18 Final result Normal [facility] Basic Metabolic Panlon 10-23 Anion gap 3 molar conc 12 mmol/L Normal - [facility] Comment on above: Performed By: #### C BCDIF, BMP ####[facility] [place], [place] [phone] Calcium mass conc 9.1 mg/dL Normal 8.5-10.2 [facility] Comment on above: Performed By: #### C BCDIF, BMP ####[place] [address] [address] [place] [phone] Chloride molar conc 108 mmol/L High 97-105 [facility] Comment on above: Performed By: #### C BCDIF, BMP ####[place] [address] [place] [phone] CO2 molar conc 23 mmol/L Normal 22-30 [facility] Comment on above: Performed By: #### C BCDIF, BMP ####[place] [address] [address] [place] [phone] Creatinine mass conc 0.94 mg/dL Normal 0.58-0.96 [facility] Comment on above: Performed By: #### C BCDIF, BMP ####[place] [address] [place] [phone] eGFR- Amer. >60 Normal [facility] Comment on above: Performed By: #### C BCDIF, BMP ####[place] [address] [place] [phone] GFR/1.73 sq M predicted among non-blacks MDRD vol rate/area (S/P/Bld) mL/min/{1.73_m2} Normal [facility] Comment on above: Result Comment: eGFR [...] reflect actual GFR. Performed By: #### C BCDIF, BMP ####[address] [phone] Glucose mass conc 81 mg/dL Normal 74-99 [facility] Comment on above: Result Comment: The [place] Diabetes Association (ADA) provides guidance for cutoff [...] Standards of Medical Care in Diabetes 2016, [place] [employer] Association. Diabetes Care. 2016.39(Suppl 1). Performed By: #### C BCDIF, BMP ####[address] [phone] Potassium molar conc 3.8 mmol/L Normal 3.7-5.1 [facility] Comment on above: Performed By: #### C LAZF, BMP ####[address] [phone] Sodium molar conc 143 mmol/L Normal 136-144 [facility] Comment on above: Performed By: #### C BCDIF, BMP ####[address] [phone] Urea nitrogen mass conc 12 mg/dL Normal 7-21 [facility] Comment on above: Performed By: #### C BCDIF, BMP ####[address] [phone] CBC and Differentialon 10-23 Abs Baso <0.03 Normal <0.11 [facility] Comment on above: Performed By: #### C BCDIF, BMP ####[address] [phone] Abs [place] 0.48 k/uL Normal <0.87 [facility] Comment on above: Performed By: #### C BCLEOPOLDO, BMP ####[place] [address] [address] [place] [phone] Abs Neut 2.26 k/uL Normal 1.45-7.50 [facility] Comment on above: Performed By: #### C THEE, BMP ####[place] [address] [address] [phone] Absolute nRBC <0.01 Normal <0.01 [facility] Comment on above: Performed By: #### C BCLEOPOLDO, BMP ####[place] [address] [address] [place] [phone] Basophils/100 WBC Auto (Bld) 0.4 % Normal [facility] Comment on above: Performed By: #### C BCLEOPOLDO, BMP ####[place] [address] [address] [place] [phone] DTYPE Auto Diff Normal [facility] Comment on above: Performed By: #### C BCLEOPOLDO, BMP ####[place] [address] [address] [phone] Eosinophils Auto #/vol (Bld) 0.36 10*3/uL Normal <0.46 [facility] Comment on above: Performed By: #### C BCYESIF, BMP ####[place] [address] [address] [place] [phone] Eosinophils/100 WBC Auto (Bld) 6.8 % Normal [facility] Comment on above: Performed By: #### C BCDIF, BMP ####[place] [address] [address] [place] [phone] Erythrocyte distribution width Auto Ratio (RBC) 12.3 % Normal 11.5-15.0 [facility] Comment on above: Performed By: #### C BCDIF, BMP ####[place] [address] [address] [place] [phone] Hematocrit Auto Volume Fraction (Bld) 40.2 % Normal 36.0-46.0 [facility] Comment on above: Performed By: #### C BCDIF, BMP ####[address] [place] [phone] Hemoglobin mass conc (Bld) 13.8 g/dL Normal 11.5-15.5 [facility] Comment on above: Performed By: #### C BCDIF, BMP ####[address] [place] [phone] Lymphocytes Auto #/vol (Bld) 2.17 10*3/uL Normal 1.00-4.00 [facility] Comment on above: Performed By: #### C BCDIF, BMP ####[address] [place] [phone] Lymphocytes/100 WBC Auto (Bld) 40.9 % Normal [facility] Comment on above: Performed By: #### C BCDIF, BMP ####[place] [phone] MCH Auto Entitic mass (RBC) 32.5 pG Normal 26.0-34.0 [facility] Comment on above: Performed By: #### C BCDIF, BMP ####[address] [place] [phone] MCHC Auto mass conc (RBC) 34.3 g/dL Normal 30.5-36.0 [facility] Comment on above: Performed By: #### C BCDIF, BMP ####[address] [place] [phone] MCV Auto Entitic volume (RBC) 94.8 fL Normal 80.0-100.0 [facility] Comment on above: Performed By: #### C BCDIF, BMP ####[place] [address] [address], [place] [phone] Monocytes/100 WBC Auto (Bld) 9.1 % Normal [facility] Comment on above: Performed By: #### C BCDIF, BMP ####[place] [address], [place] [phone] Neutrophils/100 WBC Auto (Bld) 42.8 % Normal [facility] Comment on above: Performed By: #### C BCDIF, BMP ####[place] [address] [address] [place] [phone] NRBCs 0.0 /100 WBC Normal 0 [facility] Comment on above: Performed By: #### C BCDIF, BMP ####[place] [address], [place] [phone] Platelet mean volume Auto Entitic volume (Bld) 10.2 fL Normal 9.0-12.7 [facility] Comment on above: Performed By: #### C BCDIF, BMP ####[place] [address] [place] [phone] Platelets Auto #/vol (Bld) 189 10*3/uL Normal 150-400 [facility] Comment on above: Performed By: #### C BCDIF, BMP ####[place] [address] [address] [phone] RBC Auto #/vol (Bld) 4.24 10*6/uL Normal 3.90-5.20 [facility] Comment on above: Performed By: #### C BCDIF, BMP ####[place] [address] [address], [place] [phone] WBC Auto #/vol (Bld) 5.30 10*3/uL Normal 3.70-11.00 [facility] Comment on above: Performed By: #### C BCDIF, BMP ####[place] [address] [place], [place] [phone] ED NOTEon 10-23-2017 ED NOTE HNO ID: [id number]: Jan (Rn) CHADD Westervice: Emergency MedicineAuthor Type: [...] any questions/concerns the patient may have. Normal [facility] ED PROV NOTEon 10-23-2017 Protein mass conc HNO ID: [id number]: DB Estrellaervice: Emergency MedicineAuthor Type: PhysicianType: ED Provider NotesFiled: 10/24/2017 6:35 PMNote Text:ED Provider NotePatient Name: Tyrone GuillenRN: [id number] DATE: 10/23/17HistoryPatient presents with:Abscess: R thigh, Hx of abscess in the past. unable to visualize duringtriage d/t pt wearing pants. pt describes as large, red, warm to touch.had fever of 101.2F at home, took tylenolHPIMs. Carina is a 32 yo F with PMH [...] , [facility] She also endorses a fever of 102 [...] notes arepresent to corroborate this story. Including [facility], which wasone of the hospitals she states she visited. We have a summary recordfrom [facility], but no recent visits were noted regarding [...] all over the skin. These lesions are jskrs7ee-1.5cm. There is one on mich-medial thigh on [...] any new concerns.SIGNATURE: Long Kiser MD, PGY 1Nicholaolga (Res) Roshni Kisert10/24/17 0148Attending NoteI evaluated the patient and personally [...] instructed to follow with plastics as anoutpatient.Signature: VERO Estrellaate: 10/24/2017Time: 6:33 Giovani Posada MD10/24/17 1835 Normal [facility] Metabolic Panelon 08-16-2017 Creatinine 142.27 mg/dL Invalid Interpretation Code [facility] Otheron 08-16-2017 S. pyogenes Ag IA Ql (Unsp spec) Negative Invalid Interpretation Code [facility] Urinalysis specialist review Interp Cristiano (Unsp spec) WNL Invalid Interpretation Code [facility] S. pyogenes Ag IA Ql (Unsp spec) Negative Invalid Interpretation Code [facility] Urinalysis specialist review Interp Cristiano (Unsp spec) WNL Invalid Interpretation Code [facility] 6-Monoacetylmorphine (6-NAS) Confirm mass conc (U) Negative Invalid Interpretation Code 5 [facility] Acetaminophen mass conc Negative Invalid Interpretation Code 5 [facility] Alpha hydroxyalprazolam mass conc 182.0 ng/mL Invalid Interpretation Code 5 [facility] Alprazolam mass conc 107.0 ng/mL Invalid Interpretation Code 5 [facility] Amitriptyline mass conc 865.0 ng/mL Invalid Interpretation Code 10 [facility] Amphetamine mass conc 66429 Invalid Interpretation Code 25 [facility] Butalbital Ql Negative Invalid Interpretation Code >250 [facility] Negative Invalid Interpretation Code 10 [facility] 182 Invalid Interpretation Code 5 [facility] 107 Invalid Interpretation Code 5 [facility] 865 Invalid Interpretation Code 10 [facility] 05788 Invalid Interpretation Code 25 [facility] 605 Invalid Interpretation Code 10 [facility] 44023 Invalid Interpretation Code 500 [facility] 2186 Invalid Interpretation Code 200 [facility] 83 Invalid Interpretation Code 50 [facility] 5616 Invalid Interpretation Code 25 [facility] 202 Invalid Interpretation Code 10 [facility] 6615 Invalid Interpretation Code 10 [facility] 601 Invalid Interpretation Code 10 [facility] 379254 Invalid Interpretation Code 500 [facility] 0 Invalid Interpretation Code [facility] 5.5 Invalid Interpretation Code [facility] 1.016 Invalid Interpretation Code [facility] 137 Invalid Interpretation Code 5 [facility] 137.0 ng/mL Invalid Interpretation Code 5 [facility] Urinalysison 08-16-2017 HCG.beta subunit ( test) Ql (U) Negative Invalid Interpretation Code [facility] HCG.beta subunit ( test) Ql (U) Negative Invalid Interpretation Code [facility] AEROBIC CULTUREon 06-09-2017 AEROBIC CULTURE SPECIMEN NUMBER: [id number] Normal [facility] Comment on above: Result Comment: AERO BIC CULTURE REPORT STATUS: FINAL SITE/TYPE: RIGHT PALM STAIN RESULT(S): SMALL AMOUNT CELLULAR DEBRIS NO ORGANISMS SEEN CURRENT ANTIBIOTIC(S):NOT STATED CULTURE RESULT(S): NORMAL SKIN ZENY PRESENT VIRAL CULTURE, NON-RESPIRATO Jordi 06-09-2017 VIRAL CULTURE, NON-RESPIRATORY SEE NOTE Normal NEGATIVE [facility] Comment on above: Result Comment: Cult ure negativePerformed by [facility],[address] [place] [address] ufa.[employer], Cezar Ledbetter MD, Lab. Director EFFECTIVE 04/18/2017 CLINICAL CHEMISTRY PLATFORM CHANGES IN MAIN LABORATORY ARE ASSOCIATED WITH REFERENCE RANGE CHANGES FOR A NUMBER OF ANALYTES. PLEASE REVIEW REFERENCE INTERVALS CAREFULLY P Agillic. [address] Director: Nnamdi Castro M.D.CLIA No. [id number] CAP Accreditation No. [id number] SURG. PATHOLOGY REPORTon SURGICAL PATHOLOGY REPORT Normal [facility] Comment on above: Result Comment: DIAG NOSISRIGHT PALM, SKIN BIOPSY:STRATUM CORNEUM/KERATINACEOUS CRUSTNON-DIAGNOSTIC [id number]/05/31/2017 Electronically Signed Out by Renetta Partida M.D.NATURE [...] ANALYTES. PLEASE REVIEW REFERENCE INTERVALS CAREFULLY P [employer] [address] Director: Nnamdi Castro M.D.CLIA No. [id number] [employer] Accreditation No. [id number] AEROBIC CULTUREon 02-22-2017 AEROBIC CULTURE SPECIMEN NUMBER: [id number] [facility] Comment on above: Result Comment: AERO BIC CULTURE REPORT STATUS: FINAL SITE/TYPE: GROIN STAIN RESULT(S): MODERATE AMOUNT PROTEINACEOUS MATERIAL SMALL AMOUNT SQUAMOUS EPITHELIAL CELLS NO ORGANISMS SEEN CURRENT ANTIBIOTIC(S):NOT STATED CULTURE RESULT(S): NORMAL SKIN ZENY PRESENT NO NEISSERIA GONORRHOEAE ISOLATEDPathology Laboratories, Inc. [address] [place] [id number] Director: Jacoby Olson M.D.CLIA No. [id number] CAP Accreditation No. [id number] Urinalysison 02-22-2017 HCG.beta subunit ( test) Ql (U) Negative Invalid Interpretation Code [facility] HCG.beta subunit ( test) Ql (U) Negative Invalid Interpretation Code [facility] Metabolic Panelon 01-06-2017 Hemoglobin A1c/Hemoglobin.total mass fraction (Bld) 5.20 % Invalid Interpretation Code < 7 [facility] Hemoglobin A1c/Hemoglobin.total mass fraction (Bld) 5.20 % Invalid Interpretation Code < 7 [facility] Otheron 01-06-2017 2 Invalid Interpretation Code [facility] 2 Invalid Interpretation Code [facility] Vital Signs Date Time Vital Sign Value Performing Clinician Facility 06-15-2023 16:37-0400 Diastolic blood pressure 72 mm[Hg] GENOVEVA Haile Work Phone: [facility] 06-15-2023 16:37-0400 Heart rate 73 /min GENOVEVA Haile Work Phone: [facility] 06-15-2023 16:37-0400 Respiratory rate 16 /min GENOVEVA Haile Work Phone: [facility] 06-15-2023 16:37-0400 SaO2% (BldA) [Mass fraction] 100 % ECHO TECHNOLOGISTFlaquito Ng Lazara Work Phone: [facility] 06-15-2023 16:37-0400 Systolic blood pressure 109 mm[Hg] GENOVEVA Gracemaryurisheela Work Phone: [facility] 06-15-2023 14:03-0400 Inhaled oxygen flow rate 2 L/min ECHO TECHNOLOGISTFlaquito Ng Lazara Work Phone: [facility] 06-15-2023 11:36-0400 Body height 180.34 cm ECHO TECHNOLOGISTFlaquito Gracemaryurisheela Work Phone: [facility] 06-15-2023 11:36-0400 Body temperature 98 [degF] GENOVEVA Ng Lazara Work Phone: [facility] 06-15-2023 11:36-0400 Body weight 103.87 kg ECHO TECHNOLOGISTFlaquito Gracemaryurisheela Work Phone: [facility] 05-31-2023 13:57-0400 Body height 182.9 cm Renetta ROJAS Work Phone: [facility] 05-31-2023 13:57-0400 Body mass index (BMI) [Ratio] 26.18 kg/m2 Renetta Elizalde PA Work Phone: [facility] 05-31-2023 13:57-0400 Body weight 87.54 kg Renetta Elizalde PA Work Phone: [employer] [facility] 05-31-2023 13:57-0400 Diastolic blood pressure 87 mm[Hg] Renetta [facility]izalde PA [facility] 05-31-2023 13:57-0400 Heart rate 104 /min Renetta Elizalde PA Work Phone: [employer] [facility] 05-31-2023 13:57-0400 Respiratory rate 18 /min Renetta Elizalde PA Work Phone: [facility] [employer] [facility] 05-31-2023 13:57-0400 SaO2% (BldA) [Mass fraction] 99 % Renetta Elizalde PA Work Phone: [facility] [employer] [facility] 05-31-2023 13:57-0400 Systolic blood pressure 131 mm[Hg] Renetta Elizalde PA Work Phone: [facility] [employer] [facility] 05-04-2023 11:44-0500 Body height 182.9 cm Jaswant Verhoff PA-C Work Phone: [facility] [employer] 05-04-2023 11:44-0500 Body mass index (BMI) [Ratio] 28.62 kg/m2 Jaswant Verhoff PA-C Work Phone: [facility] [employer] 05-04-2023 11:44-0500 Body weight 95.71 kg Jaswant Verhoff PA-C Work Phone: [facility] [employer] 05-04-2023 11:44-0500 Diastolic blood pressure 103 mm[Hg] Jaswant Verhoff PA-C [facility] Phone[facility] 05-04-2023 11:44-0500 Heart rate 95 /min Jaswant Verhoff PA-C Work Phone: [facility] [employer] 05-04-2023 11:44-0500 Respiratory rate 16 /min Jaswant Verhoff PA-C Work Phone: [facility] [employer] [facility] 05-04-2023 11:44-0500 SaO2% (BldA) [Mass fraction] 100 % Jaswant Verhoff PA-C Work Phone: [facility] 05-04-2023 11:44-0500 Systolic blood pressure 145 mm[Hg] Jaswant Verhoff PA-C Work Phone: [facility] [employer] [facility] 03-21-2023 13:30-0500 Body height 188.59 cm Berenice Haile Other [facility] 03-21-2023 13:30-0500 Body mass index (BMI) [Ratio] 27.16 kg/m2 Berenice Haile Other [facility] [employer] Other 03-21-2023 13:30-0500 Body weight 96.62 kg Berenice Haile Other [facility] [employer] Other 03-21-2023 13:30-0500 Body weight 96.61 kg [facility] 03-21-2023 13:30-0500 Diastolic blood pressure 80 mm[Hg] Berenice Haile Other [facility] 03-21-2023 13:30-0500 SaO2% (BldA) [Mass fraction] 100 % Berenice Haile Other [facility] [employer] Other 03-21-2023 13:30-0500 Systolic blood pressure 130 mm[Hg] Berenice Haile Other [facility] 02-23-2023 13:49-0500 Diastolic blood pressure 85 mm[Hg] GENOVEVA Haile Work Phone: [facility] 02-23-2023 13:49-0500 Heart rate 91 /min E[employer] TECHNOLOGISTFlaquito Howellacher Work Phone: [facility] 02-23-2023 13:49-0500 Respiratory rate 16 /min E[employer] TECHNOLOGISTFlaquito Howellacher Work Phone: [facility] 02-23-2023 13:49-0500 SaO2% (BldA) [Mass fraction] 100 % GENOVEVA Howellacher Work Phone: [facility] 02-23-2023 13:49-0500 Systolic blood pressure 128 mm[Hg] ECHO TECHNOLOGISTFlaquito Howellacher Work Phone: [facility] 02-23-2023 13:41-0500 Body weight 85.72 kg ECHO TECHNOLOGIST Berenice Haile Work Phone: [facility] 12-13-2022 14:40-0400 Body height 188.59 cm Ladarius Pitts Other [employer] Other 12-13-2022 14:40-0400 Body mass index (BMI) [Ratio] 27.67 kg/m2 Ladarius Pitts Other [employer] Other 12-13-2022 14:40-0400 Body weight 98.43 kg Ladarius Pitts Other [employer] Other 12-13-2022 14:40-0400 Diastolic blood pressure 60 mm[Hg] Ladarius Scgraciela Other [employer] Other 12-13-2022 14:40-0400 Systolic blood pressure 109 mm[Hg] Ladarius Scgraciela Other [employer] Other 09-22-2022 14:30-0400 Body height 188.59 cm Berenice Haile Other [employer] Other 09-22-2022 14:30-0400 Body mass index (BMI) [Ratio] 27.67 kg/m2 Berenice Haile Other [employer] Other 09-22-2022 14:30-0400 Body weight 98.43 kg Berenice Haile Other [employer] Other 09-22-2022 14:30-0400 Diastolic blood pressure 70 mm[Hg] Berenice Haile Other [employer] Other 09-22-2022 14:30-0400 Systolic blood pressure 118 mm[Hg] Berenice Haile Other [employer] Other 01-19-2022 16:10-0500 Body height 188.59 cm Liz Billingsley Other [employer] Other 01-19-2022 16:10-0500 Body mass index (BMI) [Ratio] 23.72 kg/m2 Liz Billingsley Other [employer] Other 01-19-2022 16:10-0500 Body temperature 98.1 [degF] Liz Billingsley Other [employer] Other 01-19-2022 16:10-0500 Body weight 84.37 kg Liz Billingsley Other [employer] Other 01-19-2022 16:10-0500 Diastolic blood pressure 83 mm[Hg] Liz Billingsley Other [employer] Other 01-19-2022 16:10-0500 Respiratory rate 18 /min Liz Billingsley Other [employer] Other 01-19-2022 16:10-0500 SaO2% (BldA) [Mass fraction] 96 % Liz Billingsley Other [employer] Other 01-19-2022 16:10-0500 Systolic blood pressure 128 mm[Hg] Liz Billingsley Other [employer] Other 03-03-2021 16:00-0500 Body height 188.59 cm Agus Madera Other [employer] Other 03-03-2021 16:00-0500 Body mass index (BMI) [Ratio] 25.12 kg/m2 Agus Madera Other [employer] Other 03-03-2021 16:00-0500 Body weight 89.36 kg Agus Madera Other [employer] Other 03-03-2021 16:00-0500 Diastolic blood pressure 72 mm[Hg] Agus Madera Other [employer] Other 03-03-2021 16:00-0500 Systolic blood pressure 100 mm[Hg] Agus Lafleurack Other [employer] Other 12-27-2020 12:33-0400 Diastolic blood pressure 76 mm[Hg] Sai Hernandez MD Work Phone: [employer] Work Phone: 12-27-2020 12:33-0400 Heart rate 73 /min Sai Hernandez MD Work Phone: [employer] Work Phone: 12-27-2020 12:33-0400 Respiratory rate 14 /min Sai Hernandez MD Work Phone: [employer] Work Phone: 12-27-2020 12:33-0400 Systolic blood pressure 121 mm[Hg] Sai Hernandez MD Work Phone: [employer] Work Phone: 12-27-2020 08:22-0400 SaO2% (BldA) [Mass fraction] 98 % Sai Hernandez MD Work Phone: [employer] Work Phone: 12-27-2020 08:20-0400 Body temperature 97.59 [degF] Sai Hernandez MD Work Phone: [facility] Work Phone: 07-10-2020 15:40-0400 Body height 181.61 cm Rosana Alaniz CNP Work Phone: [facility] Work Phone: 07-10-2020 15:40-0400 Body mass index (BMI) [Ratio] 31.4 kg/m2 Rosana Alaniz CNP Work Phone: [facility] Work Phone: 07-10-2020 15:40-0400 Body surface area Derived from formula 2.24 m2 Rosana Alaniz CNP Work Phone: [facility] Work Phone: 07-10-2020 15:40-0400 Body temperature 95.8 [degF] Rosana Alaniz CNP Work Phone: [facility] Work Phone: 07-10-2020 15:40-0400 Body weight 103.51 kg Rosana Alaniz CNP Work Phone: [facility] Work Phone: 07-10-2020 15:40-0400 Diastolic blood pressure 68 mm[Hg] Rosana Alaniz CNP Work Phone: [facility] Work Phone: 07-10-2020 15:40-0400 Heart rate 88 /min Rosana Alaniz CNP Work Phone: [facility] Work Phone: 07-10-2020 15:40-0400 Respiratory rate 18 /min Rosana Alaniz CNP Work Phone: [facility] Work Phone: 07-10-2020 15:40-0400 SaO2% (BldA) [Mass fraction] 99 % Rosana Alaniz SPORT INTERN Work Phone: [facility] Work Phone: 07-10-2020 15:40-0400 Systolic blood pressure 98 mm[Hg] Rosana Alaniz SPORT INTERN Work Phone: [facility] Work Phone: 03-13-2020 11:26-0500 BMI (Body Mass Index) 33.7 kg/m2 [facility] Work Phone: 03-13-2020 11:26-0500 Body weight 111.13 kg [facility] Work Phone: 03-13-2020 11:26-0500 BSA (Body Surface Area) 2.31 m2 [facility] Work Phone: 03-13-2020 11:26-0500 Height 181.61 cm [facility] Work Phone: 05-24-2019 13:37-0400 BP Diastolic 74 mm[Hg] [facility] Work Phone: 05-24-2019 13:37-0400 BP Systolic 110 mm[Hg] [facility] Work Phone: 05-24-2019 13:27-0400 BMI (Body Mass Index) 33.7 kg/m2 [facility] Work Phone: 05-24-2019 13:27-0400 Body Temperature 96.5 [degF] [facility] Work Phone: 05-24-2019 13:27-0400 Body weight 111.13 kg [facility] Work Phone: 05-24-2019 13:27-0400 BSA (Body Surface Area) 2.31 m2 [facility] Work Phone: 05-24-2019 13:27-0400 Height 181.61 cm [facility] Work Phone: 03-08-2019 13:42-0500 BMI (Body Mass Index) 32.4 kg/m2 [facility] Work Phone: 03-08-2019 13:42-0500 Body weight 106.78 kg [facility] Work Phone: 03-08-2019 13:42-0500 BP Diastolic 78 mm[Hg] [facility] Work Phone: 03-08-2019 13:42-0500 BP Systolic 90 mm[Hg] [facility] Work Phone: 03-08-2019 13:42-0500 BSA (Body Surface Area) 2.27 m2 [facility] Work Phone: 03-08-2019 13:42-0500 Height 181.61 cm [facility] Work Phone: 03-08-2019 13:42-0500 Pulse (Heart Rate) 89 /min [facility] Work Phone: 03-08-2019 13:42-0500 Pulse Oximetry 98 % [facility] Work Phone: 02-20-2019 13:50-0500 BMI (Body Mass Index) 34.5 kg/m2 [facility] Work Phone: 02-20-2019 13:50-0500 Body Temperature 99.1 [degF] [facility] Work Phone: 02-20-2019 13:50-0500 Body weight 113.94 kg [facility] Work Phone: 02-20-2019 13:50-0500 BP Diastolic 70 mm[Hg] [facility] Work Phone: 02-20-2019 13:50-0500 BP Systolic 110 mm[Hg] [facility] Work Phone: 02-20-2019 13:50-0500 BSA (Body Surface Area) 2.34 m2 [facility] Work Phone: 02-20-2019 13:50-0500 Height 181.61 cm [facility] Work Phone: 02-20-2019 13:50-0500 Pulse (Heart Rate) 99 /min [facility] Work Phone: 02-20-2019 13:50-0500 Pulse Oximetry 100 % [facility] Work Phone: 02-20-2019 13:50-0500 Respiratory Rate 18 /min [facility] Work Phone: 01-29-2019 15:45-0500 BP Diastolic 59 mm[Hg] [place], [place] 01-29-2019 15:45-0500 BP Systolic 94 mm[Hg] [place] 01-29-2019 15:45-0500 Pulse (Heart Rate) 69 /min [place] 01-29-2019 15:45-0500 Pulse Oximetry 98 % [place] 01-29-2019 15:45-0500 Respiratory Rate 13 /min [facility], [place] 01-29-2019 12:25-0500 BMI (Body Mass Index) 29.03 kg/m2 [place] 01-29-2019 12:25-0500 Body Temperature 97.39 [degF] [place], [place] 01-29-2019 12:25-0500 Body weight 99.79 kg [place], [place] 01-29-2019 12:25-0500 Height 185.4 cm [place], [place] 2019 14:08-0500 Body Temperature 98.1 [degF] [facility] [place] [facility] 14:08-0500 BP Diastolic 86 mm[Hg] Sourav [facility] , [place] 2019 14:08-0500 BP Systolic 115 mm[Hg] Sourav [facility] , [place] 2019 14:08-0500 Pulse (Heart Rate) 95 /min [facility] [place] [facility] 14:08-0500 Pulse Oximetry 99 % Sourav [facility] , [place] 2019 14:08-0500 Respiratory Rate 16 /min Sourav [facility], [place] 01-04-2019 08:20-0400 BMI (Body Mass Index) 31.8 kg/m2 [facility] Work Phone: 01-04-2019 08:20-0400 Body Temperature 96.1 [degF] [facility] Work Phone: 01-04-2019 08:20-0400 Body weight 104.78 kg [facility] Work Phone: 01-04-2019 08:20-0400 BP Diastolic 80 mm[Hg] [facility] Work Phone: 01-04-2019 08:20-0400 BP Systolic 106 mm[Hg] [facility] Work Phone: 01-04-2019 08:20-0400 BSA (Body Surface Area) 2.25 m2 [facility] Work Phone: 01-04-2019 08:20-0400 Height 181.61 cm [facility] Work Phone: 01-04-2019 08:20-0400 Pulse (Heart Rate) 69 /min [facility] Work Phone: 01-04-2019 08:20-0400 Pulse Oximetry 98 % [facility] Work Phone: 01-04-2019 08:20-0400 Respiratory Rate 18 /min [facility] Work Phone: 01-03-2019 18:41-0400 BP Diastolic 74 mm[Hg] Elayne Hurley [facility], [place] 01-03-2019 18:41-0400 BP Systolic 90 mm[Hg] Elayne Hurley [facility], [place] 01-03-2019 18:40-0400 Pulse Oximetry 95 % Elayne Hurley [facility], [place] 01-03-2019 13:42-0400 BMI (Body Mass Index) 31.33 kg/m2 Elayne Hurley [facility], [place] 01-03-2019 13:42-0400 Body Temperature 98.01 [degF] Elayne Nazario [facility], [place] 01-03-2019 13:42-0400 Body weight 104.78 kg Elayne Hurley [facility], [place] 01-03-2019 13:42-0400 Pulse (Heart Rate) 71 /min Elayne Nazario [facility], [place] 01-03-2019 13:42-0400 Respiratory Rate 16 /min Elayne Nazario [facility], [place] 11-20-2018 11:37-0400 BMI (Body Mass Index) 34.8 kg/m2 [facility] Work Phone: 11-20-2018 11:37-0400 Body Temperature 95.4 [degF] [facility] Work Phone: 11-20-2018 11:37-0400 Body weight 114.94 kg [facility] Work Phone: 11-20-2018 11:37-0400 BP Diastolic 80 mm[Hg] [facility] Work Phone: 11-20-2018 11:37-0400 BP Systolic 104 mm[Hg] [facility] Work Phone: 11-20-2018 11:37-0400 BSA (Body Surface Area) 2.34 m2 [facility] Work Phone: 11-20-2018 11:37-0400 Height 181.61 cm [facility] Work Phone: 11-20-2018 11:37-0400 Pulse (Heart Rate) 95 /min [facility] Work Phone: 11-20-2018 11:37-0400 Pulse Oximetry 98 % [facility] Work Phone: 11-20-2018 11:37-0400 Respiratory Rate 18 /min [facility] Work Phone: 11-14-2018 16:21-0400 BMI (Body Mass Index) 34.18 kg/m2 [facility], [place] 11-14-2018 16:21-0400 Body Temperature 99.19 [degF] [facility], [place] 11-14-2018 16:21-0400 Body weight 114.31 kg [facility] , [place] 11-14-2018 16:21-0400 BP Diastolic 63 mm[Hg] [facility] , [place] 11-14-2018 16:21-0400 BP Systolic 108 mm[Hg] [facility] , [place] 11-14-2018 16:21-0400 Pulse (Heart Rate) 87 /min [facility], [place] 11-14-2018 16:21-0400 Pulse Oximetry 99 % [place], [place] 11-14-2018 16:21-0400 Respiratory Rate 19 /min [facility], [place] 10-15-2018 09:11-0400 BMI (Body Mass Index) 30.11 kg/m2 Jennifer Whaley [facility], [place] 10-15-2018 09:11-0400 Body Temperature 97.5 [degF] Jennifer Whaley [facility], [place] 10-15-2018 09:11-0400 Body weight 100.7 kg Jennifer Whaley [facility] , [place] 10-15-2018 09:11-0400 BP Diastolic 80 mm[Hg] [facility] [place] 10-15-2018 09:11-0400 BP Systolic 122 mm[Hg] [facility] [place] 10-15-2018 09:11-0400 Height 182.9 cm Jennifer [facility] , [place] 10-15-2018 09:11-0400 Pulse (Heart Rate) 91 /min Jennifer [facility], [place] 10-15-2018 09:11-0400 Pulse Oximetry 100 % Jennifer [facility] , [place] 10-15-2018 09:11-0400 Respiratory Rate 16 /min Jennifer [facility], [place] 06-15-2018 15:01-0400 Pulse (Heart Rate) 103 /min [facility] Work Phone: 06-15-2018 15:01-0400 Pulse Oximetry 98 % [facility] Work Phone: 06-15-2018 14:58-0400 BMI (Body Mass Index) 33.7 kg/m2 [facility] Work Phone: 06-15-2018 14:58-0400 Body Temperature 97.1 [degF] [facility] Work Phone: 06-15-2018 14:58-0400 Body weight 111.31 kg [facility] Work Phone: 06-15-2018 14:58-0400 BP Diastolic 86 mm[Hg] [facility] Work Phone: 06-15-2018 14:58-0400 BP Systolic 126 mm[Hg] [facility] Work Phone: 06-15-2018 14:58-0400 BSA (Body Surface Area) 2.31 m2 [facility] Work Phone: 06-15-2018 14:58-0400 Height 181.61 cm [facility] Work Phone: 06-15-2018 14:58-0400 Pulse (Heart Rate) 18 /min [facility] Work Phone: 06-15-2018 14:58-0400 Respiratory Rate 18 /min [facility] Work Phone: 02-16-2018 13:28-0500 BMI (Body Mass Index) 33.99 kg/m2 [facility] 02-16-2018 13:28-0500 Body Temperature 98.3 [degF] [facility] 02-16-2018 13:28-0500 BP Diastolic 65 mm[Hg] [facility] 02-16-2018 13:28-0500 BP Systolic 92 mm[Hg] [facility] 02-16-2018 13:28-0500 BSA (Body Surface Area) 2.38 m2 [facility] 02-16-2018 13:28-0500 Height 181.61 cm [facility] 02-16-2018 13:28-0500 Pulse (Heart Rate) 110 /min [facility] 02-16-2018 13:28-0500 Pulse Oximetry 99 % [facility] 02-16-2018 13:28-0500 Respiratory Rate 18 /min [facility] 02-16-2018 13:28-0500 Weight 112.12 kg [facility] 02-16-2018 11:28-0500 BMI (Body Mass Index) 34 kg/m2 [facility] Work Phone: 02-16-2018 11:28-0500 Body Temperature 98.3 [degF] [facility] Work Phone: 02-16-2018 11:28-0500 Body weight 112.04 kg [facility] Work Phone: 02-16-2018 11:28-0500 Body weight 112.12 kg [facility] Work Phone: 02-16-2018 11:28-0500 BP Diastolic 65 mm[Hg] [facility] Work Phone: 02-16-2018 11:28-0500 BP Systolic 92 mm[Hg] [facility] Work Phone: 02-16-2018 11:28-0500 BSA (Body Surface Area) 2.32 m2 [facility] Work Phone: 02-16-2018 11:28-0500 Height 181.61 cm [facility] Work Phone: 02-16-2018 11:28-0500 Pulse (Heart Rate) 110 /min [facility] Work Phone: 02-16-2018 11:28-0500 Respiratory Rate 18 /min [facility] Work Phone: 11-24-2017 14:14-0400 BMI (Body Mass Index) 32.32 kg/m2 [facility] 11-24-2017 14:14-0400 Body Temperature 97.4 [degF] [facility] 11-24-2017 14:14-0400 BP Diastolic 80 mm[Hg] [facility] 11-24-2017 14:14-0400 BP Systolic 126 mm[Hg] [facility] 11-24-2017 14:14-0400 BSA (Body Surface Area) 2.32 m2 [facility] 11-24-2017 14:14-0400 Height 181.61 cm [facility] 11-24-2017 14:14-0400 Pulse (Heart Rate) 104 /min [facility] 11-24-2017 14:14-0400 Pulse Oximetry 97 % [facility] 11-24-2017 14:14-0400 Respiratory Rate 20 /min [facility] 11-24-2017 14:14-0400 Weight 106.6 kg [facility] 11-24-2017 13:14-0400 BMI (Body Mass Index) 32.32 kg/m2 [facility] 11-24-2017 13:14-0400 Body Temperature 97.4 [degF] [facility] 11-24-2017 13:14-0400 BP Diastolic 80 mm[Hg] [facility] 11-24-2017 13:14-0400 BP Systolic 126 mm[Hg] [facility] 11-24-2017 13:14-0400 BSA (Body Surface Area) 2.32 m2 [facility] 11-24-2017 13:14-0400 Height 181.61 cm [facility] 11-24-2017 13:14-0400 P[facility] (Heart Rate) 104 /min [facility] 11-24-2017 13:14-0400 Pulse Oximetry 97 % [facility] 11-24-2017 13:14-0400 Respiratory Rate 20 /min [facility] 11-24-2017 13:14-0400 Weight 106.6 kg [facility] 11-24-2017 11:14-0400 BMI (Body Mass Index) 32.3 kg/m2 [facility] Work Phone: 11-24-2017 11:14-0400 Body Temperature 97.4 [degF] [facility] Work Phone: 11-24-2017 11:14-0400 Body weight 106.6 kg [facility] Work Phone: 11-24-2017 11:14-0400 BP Diastolic 80 mm[Hg] [facility] Work Phone: 11-24-2017 11:14-0400 BP Systolic 126 mm[Hg] [facility] Work Phone: 11-24-2017 11:14-0400 BSA (Body Surface Area) 2.27 m2 [facility] Work Phone: 11-24-2017 11:14-0400 Height 181.61 cm [facility] Work Phone: 11-24-2017 11:14-0400 Pulse (Heart Rate) 104 /min [facility] Work Phone: 11-24-2017 11:14-0400 Respiratory Rate 20 /min [facility] Work Phone: 08-16-2017 14:15-0400 BMI (Body Mass Index) 30.7 kg/m2 [facility] 08-16-2017 14:15-0400 Body Temperature 97.2 [degF] [facility] 08-16-2017 14:15-0400 BP Diastolic 72 mm[Hg] [facility] 08-16-2017 14:15-0400 BP Systolic 118 mm[Hg] [facility] 08-16-2017 14:15-0400 BSA (Body Surface Area) 2.26 m2 [facility] 08-16-2017 14:15-0400 Height 181.61 cm [facility] 08-16-2017 14:15-0400 Pulse (Heart Rate) 88 /min [facility] 08-16-2017 14:15-0400 Pulse Oximetry 100 % [facility] 08-16-2017 14:15-0400 Respiratory Rate 18 /min [facility] 08-16-2017 14:15-0400 Weight 101.27 kg [facility] 08-16-2017 13:15-0400 BMI (Body Mass Index) 30.7 kg/m2 [facility] 08-16-2017 13:15-0400 Body Temperature 97.2 [degF] [facility] 08-16-2017 13:15-0400 BP Diastolic 72 mm[Hg] [facility] 08-16-2017 13:15-0400 BP Systolic 118 mm[Hg] [facility] 08-16-2017 13:15-0400 BSA (Body Surface Area) 2.26 m2 [facility] 08-16-2017 13:15-0400 Height 181.61 cm [facility] 08-16-2017 13:15-0400 Pulse (Heart Rate) 88 /min [facility] 08-16-2017 13:15-0400 Pulse Oximetry 100 % [facility] 08-16-2017 13:15-0400 Respiratory Rate 18 /min [facility] 08-16-2017 13:15-0400 Weight 101.27 kg [facility] 05-26-2017 14:14-0400 BMI (Body Mass Index) 29.57 kg/m2 [facility] 05-26-2017 14:14-0400 Body Temperature 97.5 [degF] [facility] 05-26-2017 14:14-0400 BP Diastolic 72 mm[Hg] [facility] 05-26-2017 14:14-0400 BP Systolic 118 mm[Hg] [facility] 05-26-2017 14:14-0400 BSA (Body Surface Area) 2.22 m2 [facility] 05-26-2017 14:14-0400 Height 181.61 cm [facility] 05-26-2017 14:14-0400 Pulse (Heart Rate) 100 /min [facility] 05-26-2017 14:14-0400 Pulse Oximetry 98 % [facility] 05-26-2017 14:14-0400 Respiratory Rate 20 /min [facility] 05-26-2017 14:14-0400 Weight 97.52 kg [facility] 05-26-2017 13:14-0400 BMI (Body Mass Index) 29.57 kg/m2 [facility] 05-26-2017 13:14-0400 Body Temperature 97.5 [degF] [facility] 05-26-2017 13:14-0400 BP Diastolic 72 mm[Hg] [facility] 05-26-2017 13:14-0400 BP Systolic 118 mm[Hg] [facility] 05-26-2017 13:14-0400 BSA (Body Surface Area) 2.22 m2 [facility] 05-26-2017 13:14-0400 Height 181.61 cm [facility] 05-26-2017 13:14-0400 Pulse (Heart Rate) 100 /min [facility] 05-26-2017 13:14-0400 Pulse Oximetry 98 % [facility] 05-26-2017 13:14-0400 Respiratory Rate 20 /min [facility] 05-26-2017 13:14-0400 Weight 97.52 kg [facility] 03-29-2017 15:24-0500 BMI (Body Mass Index) 27.69 kg/m2 [facility] 03-29-2017 15:24-0500 Body Temperature 97.5 [degF] [facility] 03-29-2017 15:24-0500 BP Diastolic 80 mm[Hg] [facility] 03-29-2017 15:24-0500 BP Systolic 109 mm[Hg] [facility] 03-29-2017 15:24-0500 BSA (Body Surface Area) 2.15 m2 [facility] 03-29-2017 15:24-0500 Height 181.61 cm [facility] 03-29-2017 15:24-0500 Pulse (Heart Rate) 87 /min [facility] 03-29-2017 15:24-0500 Pulse Oximetry 98 % [facility] 03-29-2017 15:24-0500 Respiratory Rate 18 /min [facility] 03-29-2017 15:24-0500 Weight 91.32 kg [facility] 03-29-2017 14:24-0500 BMI (Body Mass Index) 27.69 kg/m2 [facility] 03-29-2017 14:24-0500 Body Temperature 97.5 [degF] [facility] 03-29-2017 14:24-0500 BP Diastolic 80 mm[Hg] [facility] 03-29-2017 14:24-0500 BP Systolic 109 mm[Hg] [facility] 03-29-2017 14:24-0500 BSA (Body Surface Area) 2.15 m2 [facility] 03-29-2017 14:24-0500 Height 181.61 cm [facility] 03-29-2017 14:24-0500 Pulse (Heart Rate) 87 /min [facility] 03-29-2017 14:24-0500 Pulse Oximetry 98 % [facility] 03-29-2017 14:24-0500 Respiratory Rate 18 /min [facility] 03-29-2017 14:24-0500 Weight 91.32 kg [facility] 02-22-2017 17:03-0500 BMI (Body Mass Index) 26.41 kg/m2 [facility] 02-22-2017 17:03-0500 Body Temperature 98 [degF] [facility] 02-22-2017 17:03-0500 BP Diastolic 87 mm[Hg] [facility] 02-22-2017 17:03-0500 BP Systolic 130 mm[Hg] [facility] 02-22-2017 17:03-0500 BSA (Body Surface Area) 2.1 m2 [facility] 02-22-2017 17:03-0500 Height 181.61 cm [facility] 02-22-2017 17:03-0500 Pulse (Heart Rate) 88 /min [facility] 02-22-2017 17:03-0500 Pulse Oximetry 100 % Rosana Katty [facility] 02-22-2017 17:03-0500 Respiratory Rate 20 /min [facility] 02-22-2017 17:03-0500 Weight 87.09 kg [facility] 02-22-2017 16:03-0500 BMI (Body Mass Index) 26.41 kg/m2 [facility] 02-22-2017 16:03-0500 Body Temperature 98 [degF] [facility] 02-22-2017 16:03-0500 BP Diastolic 87 mm[Hg] [facility] 02-22-2017 16:03-0500 BP Systolic 130 mm[Hg] [facility] 02-22-2017 16:03-0500 BSA (Body Surface Area) 2.1 m2 [facility] 02-22-2017 16:03-0500 Height 181.61 cm [facility] 02-22-2017 16:03-0500 Pulse (Heart Rate) 88 /min [facility] 02-22-2017 16:03-0500 Pulse Oximetry 100 % [facility] 02-22-2017 16:03-0500 Respiratory Rate 20 /min [facility] 02-22-2017 16:03-0500 Weight 87.09 kg [facility] 02-01-2017 16:59-0500 BMI (Body Mass Index) 27.23 kg/m2 [facility] 02-01-2017 16:59-0500 Body Temperature 98.1 [degF] [facility] 02-01-2017 16:59-0500 BP Diastolic 81 mm[Hg] [facility] 02-01-2017 16:59-0500 BP Systolic 132 mm[Hg] [facility] 02-01-2017 16:59-0500 BSA (Body Surface Area) 2.13 m2 [facility] 02-01-2017 16:59-0500 Height 181.61 cm [facility] 02-01-2017 16:59-0500 Pulse (Heart Rate) 83 /min [facility] 02-01-2017 16:59-0500 Pulse Oximetry 94 % [facility] 02-01-2017 16:59-0500 Respiratory Rate 18 /min [facility] 02-01-2017 16:59-0500 Weight 89.81 kg [facility] 02-01-2017 15:59-0500 BMI (Body Mass Index) 27.23 kg/m2 [facility] 02-01-2017 15:59-0500 Body Temperature 98.1 [degF] [facility] 02-01-2017 15:59-0500 BP Diastolic 81 mm[Hg] [facility] 02-01-2017 15:59-0500 BP Systolic 132 mm[Hg] [facility] 02-01-2017 15:59-0500 BSA (Body Surface Area) 2.13 m2 [facility] 02-01-2017 15:59-0500 Height 181.61 cm [facility] 02-01-2017 15:59-0500 Pulse (Heart Rate) 83 /min [facility] 02-01-2017 15:59-0500 Pulse Oximetry 94 % [facility] 02-01-2017 15:59-0500 Respiratory Rate 18 /min [facility] 02-01-2017 15:59-0500 Weight 89.81 kg [facility] 01-06-2017 17:29-0400 BMI (Body Mass Index) 26.41 kg/m2 [facility] 01-06-2017 17:29-0400 Body Temperature 97.9 [degF] [facility] 01-06-2017 17:29-0400 BP Diastolic 81 mm[Hg] [facility] 01-06-2017 17:29-0400 BP Systolic 130 mm[Hg] [facility] 01-06-2017 17:29-0400 BSA (Body Surface Area) 2.1 m2 [facility] 01-06-2017 17:29-0400 Height 181.61 cm [facility] 01-06-2017 17:29-0400 Pulse (Heart Rate) 90 /min [facility] 01-06-2017 17:29-0400 Pulse Oximetry 98 % [facility] 01-06-2017 17:29-0400 Respiratory Rate 18 /min [facility] 01-06-2017 17:29-0400 Weight 87.09 kg [facility] 01-06-2017 16:29-0400 BMI (Body Mass Index) 26.41 kg/m2 [facility] 01-06-2017 16:29-0400 Body Temperature 97.9 [degF] [facility] 01-06-2017 16:29-0400 BP Diastolic 81 mm[Hg] [facility] 01-06-2017 16:29-0400 BP Systolic 130 mm[Hg] [facility] 01-06-2017 16:29-0400 BSA (Body Surface Area) 2.1 m2 [facility] 01-06-2017 16:29-0400 Height 181.61 cm [facility] 01-06-2017 16:29-0400 Pulse (Heart Rate) 90 /min [facility] 01-06-2017 16:29-0400 Pulse Oximetry 98 % [facility] 01-06-2017 16:29-0400 Respiratory Rate 18 /min [facility] 01-06-2017 16:29-0400 Weight 87.09 kg [facility] 12-09-2016 17:31-0400 BMI (Body Mass Index) 26.97 kg/m2 [facility] 12-09-2016 17:31-0400 Body Temperature 99 [degF] [facility] 12-09-2016 17:31-0400 BP Diastolic 62 mm[Hg] [facility] 12-09-2016 17:31-0400 BP Systolic 98 mm[Hg] [facility] 12-09-2016 17:31-0400 BSA (Body Surface Area) 2.12 m2 [facility] 12-09-2016 17:31-0400 Height 181.61 cm [facility] 12-09-2016 17:31-0400 Pulse (Heart Rate) 110 /min [facility] 12-09-2016 17:31-0400 Pulse Oximetry 98 % [facility] 12-09-2016 17:31-0400 Respiratory Rate 18 /min [facility] 12-09-2016 17:31-0400 Weight 88.96 kg [facility] 12-09-2016 16:31-0400 BMI (Body Mass Index) 26.97 kg/m2 [facility] 12-09-2016 16:31-0400 Body Temperature 99 [degF] [facility] 12-09-2016 16:31-0400 BP Diastolic 62 mm[Hg] [facility] 12-09-2016 16:31-0400 BP Systolic 98 mm[Hg] [facility] 12-09-2016 16:31-0400 BSA (Body Surface Area) 2.12 m2 [facility] 12-09-2016 16:31-0400 Height 181.61 cm [facility] 12-09-2016 16:31-0400 Pulse (Heart Rate) 110 /min [facility] 12-09-2016 16:31-0400 Pulse Oximetry 98 % [facility] 12-09-2016 16:31-0400 Respiratory Rate 18 /min [facility] 12-09-2016 16:31-0400 Weight 88.96 kg [facility] Encounters Encounter Date Encounter Type Care Provider Facility Start: 09-19-2023 End: 09-19-2023 ambulatory BLAKE ANMOL Not Available Start: 09-15-2023 End: 09-15-2023 ambulatory [facility] Start: 08-26-2023 End: 08-26-2023 ambulatory [facility] Start: 08-20-2023 End: 08-20-2023 ambulatory DECLAN MONK [facility] Start: 08-19-2023 End: 08-19-2023 ambulatory ANUP [facility] Start: 08-15-2023 End: 08-15-2023 ambulatory BLAKE ANMOL Not Available Start: 06-15-2023 End: 06-15-2023 Emergency department patient visit Berenice Haile Facility:[facility] Start: 06-15-2023 End: 06-15-2023 Emergency department patient visit ECHO TECHNOLOGIST Berenice Haile Work Phone: [facility] Work Phone: Start: 06-01-2023 End: 06-02-2023 Emergency department patient visit KYLAH Forbes AMADO [facility] Start: 05-31-2023 Refill Gino Nicolas MD Work Phone: [facility] Start: 05-31-2023 End: 05-31-2023 Office outpatient visit 15 minutes Renetta ROJAS Work Phone: [facility] Comment on above: Lumbar radiculopathy (Primary Dx) Start: 05-31-2023 End: 05-31-2023 ambulatory RENETTA ELIZALDE [facility] Start: 05-26-2023 End: 05-26-2023 ambulatory [facility] Work Phone: Start: 05-26-2023 End: 05-26-2023 Patient encounter procedure [facility] Work Phone: Start: 05-14-2023 End: 05-14-2023 ambulatory LAITH ADDISONTEJAL [facility] Start: 05-13-2023 End: 05-13-2023 ambulatory ANUP BUTLER [facility] Start: 05-10-2023 [facility]phone [facility] Start: 05-04-2023 End: 05-04-2023 ambulatory JASWANT HUSSEIN [facility] Start: 05-04-2023 End: 05-04-2023 Office outpatient visit 25 minutes Renetta ROJAS Work Phone: [facility] Comment on above: Lumbar radiculopathy (Primary Dx); Spinal stenosis of lumbar region with neurogenic claudication Start: 04-28-2023 Non-patient / Non-visit [facility] Work Phone: Start: 04-27-2023 Refill [facility]ifuentes [facility] Start: 04-21-2023 Telephone encounter Saida Valiente CMA [facility] Start: 04-19-2023 Non-patient / Non-visit [facility] Work Phone: Start: 04-18-2023 End: 04-18-2023 ambulatory Berenice Lazara Other [facility] Other Start: 04-18-2023 Telephone encounter Berenice Salma her [facility] Start: 04-11-2023 Encounter for genera l adult medical examination without abnormal findings [facility] Start: 04-11-2023 Clinisync Result Encounter Blake Anmol DO Work Phone: [facility] External Department Unsolicited Start: 04-11-2023 External Result Encounter Blake Anmol DO Work Phone: [facility] External Department Unsolicited Start: 04-11-2023 External Result Encounter Blake Anmol DO Work Phone: [facility] External Department Unsolicited Start: 04-11-2023 End: 04-11-2023 ambulatory BERENICE LAZARA [facility] Start: 03-30-2023 Orders Only Johana hansen APRN-SPORT INTERN Work Phone: [facility] Comment on above: Bilateral leg pain ( Primary Dx); Herniated lumbar intervertebral disc; S/P lumbar fusion; Lumbar foraminal stenosis Start: 03-21-2023 End: 03-21-2023 ambulatory Berenice Haile Other [facility] Other Start: 03-21-2023 Office outpatient vi sit 25 minutes Berenice Haile [facility] Start: 03-21-2023 End: 03-21-2023 Patient encounter procedure [facility] Work Phone: Start: 03-17-2023 End: 03-17-2023 ambulatory Berenice Haile Other [facility] Other Start: 03-17-2023 Telephone encounter Berenice Marsh her [facility] Start: 03-16-2023 Orders Only Johana hansen ECHO TECHNOLOGIST-SPORT INTERN Work Phone: [facility] Comment on above: S/P lumbar fusion Start: 03-02-2023 ambulatory BERENICE HAILE [facility] Start: 02-23-2023 End: 02-23-2023 ambulatory Lolaflaquito Felipea Facility:[facility] Start: 02-23-2023 End: 02-23-2023 ambulatory ECHO TECHNOLOGIST Berenice Haile Work Phone: [facility] Work Phone: Start: 02-23-2023 End: 02-23-2023 Patient encounter procedure ECHO TECHNOLOGISTFlaquito Haile Work Phone: [facility] [place] Work Phone: Start: 01-17-2023 End: 01-17-2023 ambulatory RENETTA PASTOR Not Available Start: 12-22-2022 End: 12-22-2022 ambulatory Ladarius Pitts Other [facility] Other Start: 12-22-2022 Telephone encounter Ladarius Marrero [facility] Travel Clerk Start: 12-13-2022 End: 12-13-2022 ambulatory Ladarius Pitts Facility:[facility] Start: 12-13-2022 End: 12-13-2022 Patient encounter procedure PHYSICIAN NO [facility] [place] Work Phone: Start: 12-13-2022 End: 12-13-2022 ambulatory PHYSICIAN NO [facility] Work Phone: Start: 12-13-2022 Office outpatient ne w 30 minutes Ladarius Pitts [facility] Start: 12-06-2022 End: 12-06-2022 ambulatory Berenice Haile Other [facility] Other Start: 12-06-2022 Telephone encounter Berenice Gracemonalisa her [facility] Start: 11-22-2022 End: 11-22-2022 ambulatory Berenice Lazara Other [facility] Other Start: 11-22-2022 Telephone encounter Berenice Gracemonalisa her [facility] Travel Clerk Start: 11-02-2022 End: 11-02-2022 ambulatory Berenice Lazara Other [facility] Other Start: 11-02-2022 Telephone encounter Berenice Marsh her [facility] Travel Clerk Start: 09-22-2022 End: 09-22-2022 Departed Referred ECHO TECHNOLOGIST Berenice Lazara Work Phone: [facility] [place] Work Phone: Start: 09-22-2022 End: 09-22-2022 ambulatory Berenice Lazara [facility] Work Phone: Start: 09-22-2022 Office outpatient ne w 30 minutes Berenice Haile [facility] Start: 09-08-2022 End: 09-08-2022 Emergency department patient visit [facility] Start: 05-24-2022 End: 05-24-[address] LESLEY LINDSEY . Facility:[facility] Start: 01-21-2022 End: 01-21-2022 ambulatory IRINA GRISSOM Facility:[facility] Start: 01-19-2022 End: 01-19-2022 ambulatory Liz Billingsley Other [facility] Other Start: 01-19-2022 Office outpatient vi sit 15 minutes Liz Billingsley [facility] Start: 10-08-[address] Arthur MADERA Facili ty:[facility] Start: 08-31-2021 End: 08-31-2021 ambulatory Agus Madera Other [facility] Other Start: 08-31-2021 Telephone encounter Agus Hackett ashley [facility] Start: 08-06-2021 End: 08-07-2021 ambulatory SPORT INTERN TERE JACIEL Facility: Start: 07-01-2021 End: 07-01-2021 ambulatory Agus Madera Other [facility] Other Start: 07-01-2021 Telephone encounter Agus Hackett ashley [facility] Start: 03-03-2021 End: 03-03-2021 ambulatory Agus Madera Other [facility] Other Start: 03-03-2021 Office outpatient ne w 45 minutes Agus Cassy [facility] Start: 12-27-2020 End: 12-27-2020 Emergency department patient visit Sai Hernandez MD Work Phone: [facility] Comment on above: Substance abuse (HCC ) (Primary Dx) Start: 07-10-2020 End: 07-10-2020 [facility] visit, estab pt Li DUARTE Work Phone: [facility] Work Phone: Start: 07-10-2020 End: 07-10-2020 [facility] visit, estab pt Li Sutherland LISDAWNA Work Phone: [facility] Work Phone: Start: 07-10-2020 End: 07-10-2020 General Megan Arita SPORT INTERN Work Phone: [facility] Work Phone: Start: 09-05-2019 End: 09-06-2019 ambulatory ROSANA ALANIZ Facility:[facility] Start: 07-16-2019 End: 07-16-2019 Nursing evaluation of patient and report Susan Em Work Phone: [facility] Work Phone: Start: 07-16-2019 End: 07-16-2019 Patient encounter procedure Rosana Katty Work Phone: [facility] Work Phone: Start: 07-16-2019 End: 03-13-2020 Patient encounter procedure Li Sutherland Work Phone: [facility] Work Phone: Start: 07-16-2019 End: 03-13-2020 Telemedicine consultation with patient Rosana Alaniz Work Phone: [facility] Work Phone: Start: 07-04-2019 End: 07-04-2019 Telemedicine consultation with patient Rosana Alaniz Work Phone: [facility] Work Phone: Start: 06-01-2019 End: 06-01-2019 Patient encounter procedure Li Sutherland Work Phone: [facility] Work Phone: Start: 06-01-2019 End: 06-01-2019 Telemedicine consultation with patient Rosana Alaniz Work Phone: [facility] Work Phone: Start: 05-24-2019 End: 05-24-2019 Established patient Rosana Alaniz Work Phone: [facility] Work Phone: Start: 03-08-2019 End: 03-08-2019 ambulatory Rosana Alaniz Work Phone: [facility] Work Phone: Start: 02-20-2019 End: 02-20-2019 Established patient Uday Hansen Work Phone: [facility] Work Phone: Start: 02-20-2019 End: 02-20-2019 Established patient Rosana Alaniz Work Phone: [facility] Work Phone: Start: 02-06-2019 End: 02-06-2019 Patient encounter procedure Rosana Alaniz Work Phone: [facility] Work Phone: Start: 01-29-2019 End: 01-29-2019 Emergency department patient visit ROSANA ALANIZ [facility] Start: 01-29-2019 End: 01-29-2019 Emergency department patient visit Waylon Montoya Work Phone: [facility] ED Comment on above: Accidental overdose of heroin, initial encounter (HCC) (Primary Dx) Start: 2019 End: 2019 Emergency department patient visit Sourav Baird Work Phone: [facility] ED Comment on above: Sciatica of left ramin e (Primary Dx); Closed fracture of right foot, initial encounter Start: 01-04-2019 End: 01-04-2019 Established patient Primitivo Lujan Work Phone: [facility] Work Phone: Start: 01-03-2019 End: 01-03-2019 Emergency department patient visit Elayne Hurley [facility] ED Comment on above: Herniated interverte bral disc of lumbar spine (Primary Dx); Neuropathy Start: 11-20-2018 End: 11-20-2018 Established patient Rosana Alaniz Work Phone: [facility] Work Phone: Start: 11-14-2018 End: 11-14-2018 Emergency department patient visit Marco A Jia Work Phone: [facility] ED Comment on above: Bilateral lower extr emity edema (Primary Dx); Transaminitis; Impetigo Start: 11-14-2018 End: 11-14-2018 Subsequent hospital visit by physician Rosana Alaniz [facility] Start: 11-14-2018 End: 11-16-2018 Subsequent hospital visit by physician [facility] Vascular Imaging Room [facility] Lab Comment on above: Pain of left calf Start: 10-26-2018 End: 10-26-2018 Patient encounter procedure Rosana Alaniz Work Phone: [facility] Work Phone: Start: 10-25-2018 End: 10-25-2018 Patient encounter procedure Primitivo Lujan Work Phone: [facility] Work Phone: Start: 10-15-2018 End: 10-15-2018 Emergency department patient visit JENNFIER WHALEY [facility] Start: 10-15-2018 End: 10-15-2018 Emergency department patient visit Jennifer Whaley Work Phone: [facility] ED Comment on above: Injury of left foot, initial encounter (Primary Dx) Start: 08-31-2018 End: 08-31-2018 Patient encounter procedure Rosana Alaniz Work Phone: [facility] Work Phone: Start: 06-15-2018 End: 06-15-2018 Established patient Rosana Alaniz Work Phone: [facility] Work Phone: Start: 06-01-2018 End: 06-01-2018 Patient encounter procedure Rosana Alaniz Work Phone: [facility] Work Phone: Start: 04-24-2018 End: 04-24-2018 Patient encounter procedure Rosana Alaniz Work Phone: [facility] Work Phone: Start: 04-06-2018 End: 04-06-2018 Patient encounter procedure Rosana Alaniz Work Phone: [facility] Work Phone: Start: 02-16-2018 Evaluation and management of established outpatient in office or other outpatient facility Rosana Alaniz [facility] Start: 02-16-2018 End: 02-16-2018 Patient encounter procedure Rosana Alaniz [facility] Work Phone: Start: 02-16-2018 Medical Rosana Alaniz Other [facility] Start: 01-16-2018 Patient encounter OZZIE MCKEON Facility:[facility] Start: 11-24-2017 End: 11-24-2017 Patient encounter procedure Rosana Mari [facility] Work Phone: Start: 11-24-2017 Laboratory examinati on, unspecified Rosana Alaniz [facility] Start: 11-24-2017 Comprehensive metabo lic panel Rosana Alaniz [facility] Start: 11-24-2017 End: 11-24-2017 Office outpatient visit 15 minutes Rosana Alaniz Other [facility] Start: 11-24-2017 Radex ankle complete minimum 3 views Rosanaray Alaniz [facility] Start: 11-24-2017 Radex foot complete minimum 3 views Rosanaray Alaniz [facility] Start: 10-23-2017 End: 10-24-2017 Emergency department patient visit ACHILLES [facility] Start: 08-16-2017 End: 08-16-2017 Office outpatient visit 25 minutes Rosana Alaniz Other [facility] Start: 05-26-2017 Evaluation and management of established outpatient in office or other outpatient facility Rosana Alaniz [facility] Start: 05-26-2017 Antibody herpes smpl x type 1 Rosanaray Alaniz [facility] Start: 05-26-2017 C-reactive protein h igh sensitivity Rosana Alaniz [facility] Start: 05-26-2017 End: 05-26-2017 Office outpatient visit 25 minutes Rosana Alaniz Other [facility] Start: 05-26-2017 Sedimentation rate r bc automated Rosana Alaniz [facility] Start: 03-29-2017 End: 03-29-2017 Office outpatient visit 15 minutes Rosana Alaniz Other [facility] Start: 02-22-2017 Antibody herpes smpl x type 1 [facility] Start: 02-22-2017 C-reactive protein Rosana Alaniz [facility] Start: 02-22-2017 Comprehensive metabo lic panel [facility] Start: 02-22-2017 Culture bacterial bl ood aerobic w/id isolates [facility] Start: 02-22-2017 End: 02-22-2017 Office outpatient visit 25 minutes Rosana Alaniz Other [facility] Start: 02-22-2017 Sedimentation rate r bc automated [facility] Start: 02-22-2017 Evaluation and management of established outpatient in office or other outpatient facility [facility] Start: 02-01-2017 End: 02-01-2017 Office outpatient visit 15 minutes Rosana Alaniz Other [facility] Start: 02-01-2017 Polysom 6/>yrs sleep 4/> addl lona [facility] Start: 02-01-2017 Polysom 6/>yrs sleep w/cpap 4/> addl lona [facility] Start: 01-06-2017 End: 01-06-2017 Office outpatient visit 15 minutes Rosana Alaniz Other [facility] Start: 12-09-2016 End: 12-09-2016 Office outpatient new 20 minutes Rosana Alaniz Other [facility] Start: 09-15-2016 Ambulatory CHANO FRANKLIN Facility: [facility] Procedures Date Procedure Procedure Detail Performing Clinician Start: 08-26-2023 Follow-up visit Follow-up ELAYNE LUCIANO Start: 06-15-2023 CT of head without contrast GENOVEVA Haile Work Phone: Start: 06-15-2023 Plain chest X-ray GENOVEVA Walshnifer Lazara Work Phone: Start: 04-11-2023 Complete blood count with white cell differential, automated Blake Corea DO Work Phone: Start: 04-11-2023 PAP IG, APT HPV RFX 16/18,45 Blake Anmol DO Work Phone: Start: 02-23-2023 MRI of lumbar spine with contrast GENOVEVA Haile Work Phone: Start: 02-23-2023 XR pre/post mri xray ECHO TECHNOLOGISTFlaquito Haile Work Phone: Start: 09-22-2022 Aerobic microbial culture PHYSICIAN NO F AMILY Start: 09-22-2022 Anaerobic microbial culture PHYSICIAN NO FAMILY Start: 09-22-2022 Investigation of transfusion reaction PHYSICIAN NO FAMILY Start: 05-24-2022 Microscopic observation [Identifier] in Cervix by Cyto stain Johana Hansen ECHO TECHNOLOGIST-[facility] Work Phone: Start: 12-27-2020 Blood gases any [...] cleared fda spec home use Rosana Alaniz [employer] Work Phone: Start: 07-10-2020 Most recent diastolic blood pressure < 80 mm hg Rosana Alaniz [employer] Work Phone: Start: 07-10-2020 Most recent systolic blood pressure <130 mm hg Rosana Alaniz [employer] Work Phone: Start: 07-10-2020 Psychotherapy w/patient 30 [...] Work Phone: Start: 01-29-2019 TELEMETRY MONITORING JENNIFER WHALEY Start: 2019 End: 2019 Radiologic examination foot 2 views Sourav Baird Work Phone: Start: 01-04-2019 Medroxyprogesterone acetate Primitivo Fay Peni x Work Phone: Start: 01-04-2019 Therapeutic prophylactic/dx injection subq/im Primitivo Lujan Work Phone: Start: 01-03-2019 Fibrin dgradj products d-dimer quantitative Elayne Gibson Mei Start: 01-03-2019 Sedimentation rate rbc automated Elayne Gibson Mei Start: 01-03-2019 Radiologic exam chest 2 views Elayne Gibson Mei Start: 01-03-2019 Mri spinal canal lumbar w/o contrast material Elayne Gibson Mei Start: 01-03-2019 Urnls dip stick/tablet reagent auto microscopy Elayne Gibson Mei Start: 01-03-2019 Basic metabolic panel calcium total Elayne Gibson Mei Start: 01-03-2019 Blood count complete auto&auto difrntl wbc Elayne Gibson Mei Start: 01-03-2019 C-reactive protein Elayne Gibson Patti munson Start: 11-20-2018 Medroxyprogesterone acetate Rosana Alaniz Work [...] DISORDER NOS Rosana Alaniz Start: 06-15-2018 Cholecystectomy Rosana Alaniz Start: 06-15-2018 Cholecystectomy Rosana Alaniz Start: [...] Rosana Alaniz Start: 11-24-2017 Iron binding capacity Roasna Alaniz Start: 11-24-2017 Lipid panel Rosana Alaniz Start: 11-24-2017 Medroxyprogesterone acetate Rosana Alaniz Start: 11-24-2017 End: 11-24-2017 Radex ankle complete minimum 3 views Rosana Alaniz Start: 11-24-2017 End: 11-24-2017 Radex foot complete minimum 3 views Rosana Alaniz Start: 11-24-2017 Therapeutic prophylactic/dx injection subq/im Rosana Alaniz Start: 08-16-2017 End: 08-16-2017 Iaadiadoo streptococcus group a Rosana Alaniz Start: 08-16-2017 End: 08-16-2017 Drug test prsmv read direct optical obs pr date Rosana Alaniz Start: 08-16-2017 Medroxyprogesterone acetate Rosana Alaniz Start: 08-16-2017 Therapeutic prophylactic/dx injection subq/im Rosana Alaniz Start: 08-16-2017 End: 08-16-2017 Urine test visual color cmprsn meths Rosana Alaniz Start: 08-16-2017 End: 08-16-2017 Urnls dip [...] administered Rosana Alaniz Start: 05-26-2017 Pathology Rosana Alaniz Start: 05-26-2017 Therapeutic prophylactic/dx injection subq/im Rosana Alaniz Start: 03-29-2017 PHQ9 Administered Rosana Alaniz Start: 03-29-2017 SBIRT- Full Screen *POSITIVE* Referred to Provider Rosana Alaniz Start: 03-29-2017 Therapeutic prophylactic/dx injection subq/im Rosana Alaniz Start: 02-22-2017 End: 02-22-2017 Urine test visual color cmprsn meths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 Neurology in [place] every 3-4 months. She is taking Lyrica [...] verbalized understanding and agreement with treatment plan. [facility] Other 11-15-2022 Evaluation note* Encounter Date Diagnosis [...] understanding and is agreeable to treatment plan [facility] Other 04-27-2022 Evaluation note* Encounter Date Diagnosis Assessment Notes Treatment Notes Treatment Clinical Notes Jun, Constipation (ICD-10 - K59.00) [facility] Other 12-28-2021 Evaluation note* Encounter Date Diagnosis [...] Feb, Constipation (ICD-10 - K59.00) CONTINUE FIBERLAX [facility] Other 10-23-2021 Hospital Discharge instructions* Instructions* Sai Hernandez MD - 12/27/2020 Please refrain from utilizing any substance abuse * Attachments The following attachments cannot be sent through Care Everywhere. * Substance Use Disorder ([place] Citizen) [facility] Phone: 1(281) 503-317210-23-2021 History of Present illness Narrative* Nirmal Amado RCP - 12/27/2020 11:38 AM EDT VBG specimen hemolyzed. Rosibel KELLY aware. documented in [facility] Phone: [phone]) 427-331205-06-2021 Evaluation note Includes: Assessments for all patient encounters Findings Encounter Date Moderate recurrent major depression E stablished Patient with Li Short LIS 07/10/2020 Imp[employer] Medical Established Patient with Rosana Katty [facility] 07/10/2020 Obesity due to excess calories Medical E stablished Patient with Rosana Katty [facility] 07/10/2020 Screening for diabetes mellitus Medical Established Patient with Rosana Alaniz [facility] 07/10/2020 Z68.31 - Body mass index [BM I] 31.0-31.9, adult Medical Established Patient with Rosana Conraden [facility] 07/10/2020 Moderate recurrent major depression [facility] Li Sutherland [facility] 03/13/2020 Body mass index Telemedicine Establi sted Patient with Rosana Conraden [facility] 03/13/2020 Obesity due to excess calories Telemedic ine Establisted Patient with Rosana Katty [facility] 03/13/2020 Obesity due to excess calories Telemedicine with Rosana Katty [facility] 07/04/2019 Z68.31 - Body mass index (BM I) 31.0-31.9, adult Telemedicine with Rosana Conraden [facility] 07/04/2019 Anxiety disorder NOS CPS Med Review with Rosana Sameer patricia [facility] 03/08/2019 Obesity due to excess calories CPS Med Review wi th Rosanaray Alaniz [facility] 03/08/2019 Screening for diabetes mellitus CPS Med Review w ith Rosana Alaniz [facility] 03/08/2019 Z68.32 - Body mass index (BM I) 32.0-32.9 adult CPS Med Review with Rosana Alaniz [facility] 03/08/2019 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 BH Established Patient with Uday Hansen [facility] 02/20/2019 Fagerstrom Score was 0 02/20/2019 Medica l Established Patient with Rosana Alaniz [facility] 02/20/2019 Obesity due to excess calories Medical E stablished Patient with Rosana Alaniz [employer] 02/20/2019 PHQ-9: total score was 24 02/20/2019 Med ical Established Patient with Rosana Alaniz [facility] 02/20/2019 Z68.34 - Body mass index (BM I) 34.0-34.9 adult Medical Established Patient with Rosana Alaniz [employer] 02/20/2019 Bulging intervertebral disc Medical Esta blished Patient with Ivy Le [facility] 01/04/2019 Fibromyalgia Medical Established Patient with Viy Le [facility] 01/04/2019 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 Medical Established Patient with Primitivo Lujan [facility] 01/04/2019 Obesity due to excess calories Medical E stablished Patient with Ivy Le [facility] 01/04/2019 Z30.42 - Encounter for surve illance of injectable contraceptive Medical Established Patient with Primitivo Lujan [facility] 01/04/2019 Z68.31 - Body mass index (BM I) 31.0-31.9 adult Medical Established Patient with Primitivo Lujan [facility] 01/04/2019 Assess migraine headache Medical Establi shed Patient with Rosana Alaniz [facility] 11/20/2018 Diabetes Risk Test Score was three score Medical Established Patient with Rosana Alaniz [facility] 11/20/2018 Obesity due to excess calories Medical E stablished Patient with Rosana Alaniz [facility] 11/20/2018 Z68.34 - Body mass index (BM I) 34.0-34.9 adult Medical Established Patient with Rosana Alaniz [facility] 11/20/2018 M25.572 - Pain in left ankle and joints of left foot Chart Update with Primitivo Lujan [facility] 10/25/2018 Assess open wound of the jacinto d, complicated Medical Established Patient with Rosana Alaniz [employer] 06/15/2018 Body mass index Medical Established Patient with Rosana Alaniz [facility] 06/15/2018 Assess dermatitis Chart Update with Rosana Alaniz [facility] 06/01/2018 [facility] Work Phone: 1([phone]) 706-758904-29-2020 History general Narrative - Reported Includes: Medical [...] 06/16/19 19 History of psychiatric disorders 019 [facility] Work Phone: Evaluation note* Diagnosis Substance abuse (HCC)- Primary Other, mixed, or unspecified nondependent drug abuse, unspecified documented in this encounter [employer] Work Phone: evaluation noteNo InformationNort [employer] Other Evaluation noteNo assessment information available [facility] Work Phone: Evaluation note* Diagnosis S/P lumbar fusion Arthrodesis status [facility]* Diagnosis Bilateral leg pain- Primary Pain in soft tissues of limb Herniated lumbar intervertebral disc Displacement of lumbar intervertebral disc without myelopathy S/P lumbar fusion Arthrodesis status Lumbar foraminal stenosis [facility]* Diagnosis Lumbar radiculopathy- Primary Thoracic or lumbosacral neuritis or radiculitis, unspecified Spinal stenosis of lumbar region with neurogenic claudication Spinal stenosis of lumbar region with neurogenic claudication- Primary Lumbar radiculopathy Thoracic or lumbosacral neuritis or radiculitis, unspecified Lumbar radiculopathy Thoracic or lumbosacral neuritis or radiculitis, unspecified Spinal stenosis of lumbar region with neurogenic claudication [facility] Diagnosis Lumbar radiculopathy- Primary Thoracic or lumbosacral neuritis or radiculitis, unspecified Lumbar radiculopathy- Primary Thoracic or lumbosacral neuritis or radiculitis, unspecified Lumbar radiculopathy Thoracic or lumbosacral neuritis or radiculitis, unspecified [facility] Diagnosis Onset Date Resolution Status Abscess acute Cellulitis acute [facility] Work Phone: History general Narrative - Reported* Type Description Date Medical History ulcers bleeding and perforated Medical History fibromyalgia Medical History ADHD Medical History migraine headache Medical History insomnia Medical History Chiari malformation Medical History multiple sclerosis Surgical History cholecystectomy Surgical History breast reduction Surgical History breast augmentation Surgical History gastric sleeve Surgical History pick/port line Hospitalization History see above [facility] Other [employer] general Narrative - Reported* Type Description Date Medical History ulcers bleeding and perforated Medical History fibromyalgia Medical History ADHD Medical History migraine headache Medical History insomnia Medical History Chiari malformation Medical History multiple sclerosis Medical History Substance abuse Surgical History cholecystectomy Surgical History breast reduction Surgical History breast augmentation Surgical History gastric sleeve Surgical History pick/port line Hospitalization History see above [employer] Other History of Present illness Narrative History of Present Illness not supported for this document type No History of Present Illness [facility] Work Phone: Hospital Discharge instructions Additional Instructions If your symptoms return/worsen or you develop any further concerns or symptoms please see your doctor or return to the emergency department immediately.[facility] Work Phone: Instructions Instructions not supported for this document type No Instructions [facility] Work Phone: InstructionsNot on filedocumented in this encounter [facility] on filedocumented in this encounter [facility]ructionsNot on filedocumented in this encounter [facility]ructionsNot on filedocumented in this encounter [facility] System[facility]ructionsNot on filedocumented in this encounter [facility] System[facility] problem outcome Narrative Includes: Evaluations & Outcomes for active Goals No Outcomes [facility] Work Phone: Reason for referral (narrative)No Reason for Referral [facility] Work Phone: Reason for referral (narrative)* Consultation (Routine) - Pending Review Specialty Diagnoses / Procedures Referred By Contlorne t Referred To Contact Pain Medicine Diagnoses Bilateral leg pain Herniated lumbar intervertebral disc S/P lumbar fusion Lumbar foraminal stenosis Johana Hansen, GERALDO [address] [address] Anup Butler MD [address] [place] [address] Referral ID Status Reason Start Date Expiration Date Visits Requested Visits Authorized [id number] Pending Review Specialty Services Required 03/30/2023 03/29/2024 1 1 [facility] SystemReview of systems Narrative - Reported Review of Systems not supported for this document type No Review of Systems [facility] Work Phone: Summary Purpose Family History No Family History Records Found Description Last Updated Maternal history of type 2 diabetes zia itus 06/15/2018 Relationship Condition Age at Onset Recorded Date/T carlin father Unknown Heart disease Unknown Multiple sclerosis Unknown Not Specified Heart disease Unknown Advance Directives No Advanced Directives Records FoundDocuments on File Type Date 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 Advance Directives and Living Will Power of [place] [employer] Latest Code Status on File Code Status Date Activated Date Inactivated Comments Full Code 11/16/2016 12:58 PM 11/16/2016 4:36 PM Full Code 07/27/2016 3:17 PM 07/27/2016 6:53 PM Full Code 11/25/2015 11:45 AM 11/25/2015 3:40 PM Full Code 11/11/2015 11:55 AM 11/11/2015 5:56 PM Full Code 07/22/2015 12:41 PM 07/22/2015 4:32 PM Documents on File Type Date 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 Advance Directives and Living Will Power of [place] [employer] Latest Code Status on File Code Status Date Activated Date Inactivated Comments Full Code 11/16/2016 12:58 PM 11/16/2016 4:36 PM Full Code 07/27/2016 3:17 PM 07/27/2016 6:53 PM Full Code 11/25/2015 11:45 AM 11/25/2015 3:40 PM Full Code 11/11/2015 11:55 AM 11/11/2015 5:56 PM Full Code 07/22/2015 12:41 PM 07/22/2015 4:32 PM Documents on File Type Date 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 Please call your enterprise records analyst for follow-up within 1 week. Please return to the ED if you have severe worsening of pain, loss of sensation, your foot become numb, or any other concerns arise. documented in this encounter* Attachments The following attachments cannot be sent through Care Everywhere. * Edema: Leg and Ankle ([place] Citizen) * Impetigo ([place] Citizen) * LFTs (Liver Function Tests) ([place] Citizen) documented in this encounter* Attachments The following attachments cannot be sent through Care Everywhere. * Sciatica ([place] Citizen) * Foot Fracture ([place] Citizen) documented in this encounter* Instructions* Elayne Hurley MD - 01/03/2019 You have a large herniated disc with entrapment of the left L5 nerve root. I would recommend follow-up with a neurosurgeon. documented in this encounter* Attachments The following attachments cannot be sent through Care Everywhere. * Drug Overdose: Opioid ([place] Citizen) documented in this encounter Assessments Diagnosis Injury of left foot, initial encounter- Primary Findings Encounter Date M25.572 - Pain in left ankle and joints of left foot Chart Update with Primitivo Lujan [facility] 10/25/2018 Assess open wound of the jacinto d, complicated Medical Established Patient with Rosana Alaniz [facility] 06/15/2018 Body mass index Medical Established Patient with Rosana Alaniz [facility] 06/15/2018 Assess dermatitis Chart Update with Rosana Alaniz [facility] 06/01/2018 Diagnosis Bilateral lower extremity edema- Primary Edema Transaminitis Nonspecific elevation of levels of transaminase or lactic acid dehydrogenase (LDH) Impetigo Findings Encounter Date Bulging intervertebral disc Medical Esta blished Patient with Primitivo Lujan [facility] 01/04/2019 Fibromyalgia Medical Established Patient with Primitivo Lujan [facility] 01/04/2019 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 Medical Established Patient with Primitivo Lujan [facility] 01/04/2019 Obesity due to excess calories Medical E stablished Patient with Primitivo Lujan [facility] 01/04/2019 Z30.42 - Encounter for surve illance of injectable contraceptive Medical Established Patient with Primitivo Lujan [facility] 01/04/2019 Z68.31 - Body mass index (BM I) 31.0-31.9 adult Medical Established Patient with Primitivo Lujan [facility] 01/04/2019 Assess migraine headache Medical Establi shed Patient with Rosana Alaniz [facility] 11/20/2018 Diabetes Risk Test Score was three score Medical Established Patient with Rosana Alaniz [facility] 11/20/2018 Obesity due to excess calories Medical E stablished Patient with Rosana Alaniz [facility] 11/20/2018 Z68.34 - Body mass index (BM I) 34.0-34.9 adult Medical Established Patient with Rosana Alaniz [facility] 11/20/2018 M25.572 - Pain in left ankle and joints of left foot Chart Update with Primitivo Lujan [facility] 10/25/2018 Assess open wound of the jacinto d, complicated Medical Established Patient with Rosana Alaniz [facility] 06/15/2018 Body mass index Medical Established Patient with Rosana Alaniz [facility] 06/15/2018 Assess dermatitis Chart Update with Rosana Alaniz [facility] 06/01/2018 Diagnosis Sciatica of left side- Primary Sciatica Closed fracture of right foot, initial encounter Findings Encounter Date 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 Established Patient with Uday Hansen [facility] 02/20/2019 Fagerstrom Score was 0 02/20/2019 Medica l Established Patient with Rosana Alaniz [facility] 02/20/2019 Obesity due to excess calories Medical E stablished Patient with Rosnaa Alaniz [facility] 02/20/2019 PHQ-9: total score was 24 02/20/2019 Med ical Established Patient with Rosana Alaniz [facility] 02/20/2019 Z68.34 - Body mass index (BM I) 34.0-34.9 adult Medical Established Patient with Rosana Alaniz [facility] 02/20/2019 Bulging intervertebral disc Medical Esta blished Patient with Ivy Le [facility] 01/04/2019 Fibromyalgia Medical Established Patient with Ivy Penkamilah [facility] 01/04/2019 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 Medical Established Patient with Ivy Penix [facility] 01/04/2019 Obesity due to excess calories Medical E stablished Patient with Ivy Penix [facility] 01/04/2019 Z30.42 - Encounter for surve illance of injectable contraceptive Medical Established Patient with Ivy Penix [facility] 01/04/2019 Z68.31 - Body mass index (BM I) 31.0-31.9 adult Medical Established Patient with Primitivo Lujan [facility] 01/04/2019 Assess migraine headache Medical Establi shed Patient with Rosana Alaniz [facility] 11/20/2018 Diabetes Risk Test Score was three score Medical Established Patient with Rosana Alaniz [facility] 11/20/2018 Obesity due to excess calories Medical E stablished Patient with Rosana Alaniz [facility] 11/20/2018 Z68.34 - Body mass index (BM I) 34.0-34.9 adult Medical Established Patient with Rosana Alaniz [facility] 11/20/2018 M25.572 - Pain in left ankle and joints of left foot [facility] Assess open wound of the jacinto d, complicated [facility] Body mass index Medical Established Patient with Rosana Alaniz [facility] 06/15/2018 Assess dermatitis [facility] Findings Encounter Date Anxiety disorder NOS CPS Med Review with [facility] 03/08/2019 Obesity due to excess calories CPS Med R janaw with [facility] 03/08/2019 Screening for diabetes mellitus CPS Med Review with [facility] 03/08/2019 Z68.32 - Body mass index (BM I) 32.0-32.9 adult CPS Med Review with Rosana [facility] 03/08/2019 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 Established Patient with Uday Tyrone [facility] 02/20/2019 Fagerstrom Score was 0 02/20/2019 Medica l Established Patient with Rosana Alaniz [facility] 02/20/2019 Obesity due to excess calories Medical E stablished Patient with Rosana Katty [facility] 02/20/2019 PHQ-9: total score was 24 02/20/2019 Med ical [facility] Z68.34 - Body mass index (BM I) 34.0-34.9 adult Medical Established Patient with Rosana Alaniz [facility] 02/20/2019 Bulging intervertebral disc Medical Esta blished Patient with Ivy Penkamilah [facility] 01/04/2019 Fibromyalgia Medical Established Patient with Ivy Le [facility] 01/04/2019 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 Medical Established Patient with Ivy Penkamilah [facility] 01/04/2019 Obesity due to excess calories Medical E stablished Patient with Primitivo Lujan [facility] 01/04/2019 Z30.42 - Encounter for surve illance of injectable contraceptive Medical Established Patient with Primitivo Lujan [facility] 01/04/2019 Z68.31 - Body mass index (BM I) 31.0-31.9 adult Medical Established Patient with Primitivo Lujan [facility] 01/04/2019 Assess migraine headache Medical Establi shed Patient with Rosana Alaniz [facility] 11/20/2018 Diabetes Risk Test Score was three score Medical Established Patient with Rosana Alaniz [facility] 11/20/2018 Obesity due to excess calories Medical E stablished Patient with Rosana Alaniz [facility] 11/20/2018 Z68.34 - Body mass index (BM I) 34.0-34.9 adult Medical Established Patient with Rosana Alaniz [facility] 11/20/2018 M25.572 - Pain in left ankle and joints of left foot Chart Update with Primitivo Lujan [facility] 10/25/2018 Assess open wound of the jacinto d, complicated Medical Established Patient with Rosana Alaniz [facility] 06/15/2018 Body mass index Medical Established Patient with Rosana Alaniz [facility] 06/15/2018 Assess dermatitis Chart Update with Rosana Alaniz [facility] 06/01/2018 Findings Encounter Date Obesity due to excess calories Telemedicine with Rosana Alaniz [facility] 07/04/2019 Z68.31 - Body mass index (BM I) 31.0-31.9, adult Telemedicine with Rosana Alaniz [facility] 07/04/2019 Anxiety disorder NOS CPS Med Review with Rosana Sameer patricia [facility] 03/08/2019 Obesity due to excess calories CPS Med Review wi th Rosanaray Alaniz [facility] 03/08/2019 Screening for diabetes mellitus CPS Med Review w ith Rosanaray Alaniz [facility] 03/08/2019 Z68.32 - Body mass index (BM I) 32.0-32.9 adult CPS Med Review with Rosanaray Alaniz [facility] 03/08/2019 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 BH Established Patient with Uday Hansen [facility] 02/20/2019 Fagerstrom Score was 0 02/20/2019 Medica l Established Patient with Rosana Alaniz [facility] 02/20/2019 Obesity due to excess calories Medical E stablished Patient with Rosana Alaniz [facility] 02/20/2019 PHQ-9: total score was 24 02/20/2019 Med ical Established Patient with Rosana Alaniz [facility] 02/20/2019 Z68.34 - Body mass index (BM I) 34.0-34.9 adult Medical Established Patient with Rosana Alaniz [facility] 02/20/2019 Bulging intervertebral disc Medical Esta blished Patient with Primitivo Lujan [facility] 01/04/2019 Fibromyalgia Medical Established Patient with Primitivo Lujan [facility] 01/04/2019 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 Medical Established Patient with Primitivo Lujan [facility] 01/04/2019 Obesity due to excess calories Medical E stablished Patient with Primitivo Lujan [facility] 01/04/2019 Z30.42 - Encounter for surve illance of injectable contraceptive Medical Established Patient with Primitivo Lujan [facility] 01/04/2019 Z68.31 - Body mass index (BM I) 31.0-31.9 adult Medical Established Patient with Primitivo Lujan [facility] 01/04/2019 Assess migraine headache Medical Establi shed Patient with Rosana Alaniz [facility] 11/20/2018 Diabetes Risk Test Score was three score Medical Established Patient with Rosana Alaniz [facility] 11/20/2018 Obesity due to excess calories Medical E stablished Patient with Rosana Alaniz [facility] 11/20/2018 Z68.34 - Body mass index (BM I) 34.0-34.9 adult Medical Established Patient with Rosana Alaniz [facility] 11/20/2018 M25.572 - Pain in left ankle and joints of left foot Chart Update with Primitivo Lujan [facility] 10/25/2018 Assess open wound of the jacinto d, complicated Medical Established Patient with Rosana Alaniz [facility] 06/15/2018 Body mass index Medical Established Patient with Rosana Alaniz [facility] 06/15/2018 Assess dermatitis Chart Update with Rosana Katty [facility] 06/01/2018 Findings Encounter Date Moderate recurrent major depression T [facility] with Li [facility] 03/13/2020 Body mass index Telemedicine Establi sted Patient with Rosanaray Alaniz [facility] 03/13/2020 Obesity due to excess calories Telemedic ine Establisted Patient with Rosana Katty [facility] 03/13/2020 Obesity due to excess calories Telemedicine with Rosanaray Alaniz [facility] 07/04/2019 Z68.31 - Body mass index (BM I) 31.0-31.9, adult Telemedicine with Rosana Katty [facility] 07/04/2019 Anxiety disorder NOS CPS Med Review with Rosana gomez [facility] 03/08/2019 Obesity due to excess calories CPS Med Review wi th Rosana Alaniz [facility] 03/08/2019 Screening for diabetes mellitus CPS Med Review w ith Rosana Alaniz [facility] 03/08/2019 Z68.32 - Body mass index (BM I) 32.0-32.9 adult CPS Med Review with Rosana Alaniz [facility] 03/08/2019 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 BH Established Patient with Uday Hansen [facility] 02/20/2019 Fagerstrom Score was 0 02/20/2019 Medica l Established Patient with Rosana Alaniz [facility] 02/20/2019 Obesity due to excess calories Medical E stablished Patient with Rosana Alaniz [facility] 02/20/2019 PHQ-9: total score was 24 02/20/2019 Med ical Established Patient with Rosana Alaniz [facility] 02/20/2019 Z68.34 - Body mass index (BM I) 34.0-34.9 adult Medical Established Patient with Rosana Alaniz [facility] 02/20/2019 Bulging intervertebral disc Medical [facility]ished [facility] Fibromyalgia Medical Established [facility]/04[facility]2019 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 Medical [facility] Obesity due to excess calories Medical E stablished [facility]/04[facility]2019 Z30.42 - Encounter for surve illance of injectable contraceptive Medical Established [facility] 01/04/2019 Z68.31 - Body mass index (BM I) 31.0-31.9 adult Medical Established [facility] Assess migraine headache Medical Establi shed Patient with Rosana lAaniz [facility] 11/20/2018 Diabetes Risk Test Score was three score Medical Established Patient with Rosana Alaniz [facility] 11/20/2018 Obesity due to excess calories Medical E stablished Patient with Rosana Alaniz [facility] 11/20/2018 Z68.34 - Body mass index (BM I) 34.0-34.9 adult Medical Established Patient with Rosana Alaniz [facility] 11/20/2018 M25.572 - Pain in left ankle and joints of left foot Chart Update with Ivy Le [facility] 10/25/2018 Assess open wound of the jacinto d, complicated Medical Established Patient with Rosana Alaniz [facility] 06/15/2018 Body mass index Medical Established Patient with Rosana Alaniz [facility] 06/15/2018 Assess dermatitis Chart Update with Rosana Alaniz [facility] 06/01/2018 Diagnosis Herniated intervertebral disc of lumbar spine- Primary Neuropathy Mononeuritis of unspecified site Diagnosis Accidental overdose of heroin, initial encounter ([facility])- Primary Findings Encounter Date Assess open wound of the jacinto d, complicated Medical Established Patient with Rosana Alaniz [facility] 06/15/2018 Body mass index Medical Established Patient with Rosana Alaniz [facility] 06/15/2018 Assess dermatitis Chart Update with Rosanaray Alaniz [facility] 06/01/2018 Diagnosis Pain of left calf Findings Encounter Date Assess migraine headache Medical Establi shed Patient with Rosana Alaniz [facility] 11/20/2018 Diabetes Risk Test Score was three score Medical Established Patient with Rosanaray Alaniz [facility] 11/20/2018 Obesity due to excess calories Medical E stablished Patient with Rosana [facility] 11/20/2018 Z68.34 - Body mass index (BM I) 34.0-34.9 adult Medical Established Patient with Rosana Alaniz [facility] 11/20/2018 M25.572 - Pain in left ankle and joints of left foot Chart Update with Primitivo Lujan [facility] 10/25/2018 Assess open wound of the jacinto d, complicated Medical Established Patient with Rosana Alaniz [facility] 06/15/2018 Body mass index Medical Established Patient with Rosana Alaniz [facility] 06/15/2018 Assess dermatitis Chart Update with Rosanaray Alaniz [facility] 06/01/2018 Instructions Instructions not supported for [...] DUP LOWER EXTREMITY VENOUS LEFT Misbah Oreilly, PETER [address] [place] [address] [place] [address] Reason Would like to b ee seen at [facility]-- psychaitry for ADD treatment, matthew like to see ana martinez if available 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), predominantly inattentive type (F90.0) Referral Organization [facility] [place] Referring Provider First Name Berenice Referring Provider Last Name Danteacher Referring Provider Specialty Nurse Pract itioner Referred Organization [facility] Referred Address [address] [place] [place], [place],[address] Referred Provider Specialty Psychiatry Referral Priority Routine General Notes Katina Winter 03:07:30 PM >received today, waiting for notes to be locked to fax Reason *FU 09/29 evaluate -- would like scheduled [place] Diagnosis 1 Lupus (M32.9) Diagnosis 2 Fibromyalgia (M79.7) Referral Organization [facility] [place] Referring Provider First Name Berenice Referring Provider Last Name Danteacher Referring Provider Specialty Nurse Pract itioner Referred Organization [facility] Referred Address [address],[place],[address] Referred Provider Specialty Rheumatology Referral Priority Routine General Notes Katina Winter 03:28:37 PM >received today, notes locked, ins attached, referral faxed Clinical Notes Dr. Colindres P: [id number] F: [id number] Reason evaluate Diagnosis 1 Hepatitis C virus in fection without hepatic coma, unspecified chronicity (B19.20) Referral Organization [facility] [place] Referring Provider First Name Berenice Referring Provider Last Name Rohrbacher Referring Provider Specialty Nurse Pract itioner Referred Organization [facility] Gastroenterolo gy Referred Provider Agus [place] Referred Address [address],[facility] [address] [place], [place],[address] Referred Provider Specialty Gastroentero logy Referral Priority Routine General Notes Katina Winter 03:25:06 PM >received today, sent P2P Reason would like referral to pain management in [place] Diagnosis 1 Other chronic pain ( G89.29) Diagnosis 2 Lumbago with sciatic a, left side (M54.42) Diagnosis 3 History of back surg maria luz (Z98.890) Diagnosis 4 Cervical back pain w ith evidence of disc disease (M50.90) Referral Organization [facility] [place] Referring Provider First Name Berenice Referring Provider Last Name Rohrbacher Referring Provider Specialty Nurse Pract itioner Referred Organization [facility] Referred Address [address] [place], [place],[address] Referred Provider Specialty Pain Medicin e Referral Priority Routine Specialty Diagnoses / Procedures Referred By Contlorne t Referred To Contact Diagnoses Lumbar radiculopathy Spinal stenosis of lumbar region with neurogenic claudication Procedures Case request operating room: INJECTION BLOCK EPIDURAL STEROID LUMBAR/SACRAL Right L 5,1 NR Jaswant Hussein, LYNNETTE [address] [place] [address] Referral ID Status Reason Start Date Expiration Date V isits Requested Visits Authorized [id number] Pending Review 05/04/2023 05/03/2024 1 1 Specialty Diagnoses / Procedures Referred By Contac t Referred To Contact Diagnoses Lumbar radiculopathy Procedures Case request operating room: INJECTION BLOCK EPIDURAL CAUDAL STEROID Renetta Elizalde PA [address] [place] [address] Referral ID Status Reason Start Date Expiration Date V isits Requested Visits Authorized [id number] Pending Review 05/31/2023 05/30/2024 1 1 Chief [...] and content) DATE CREATED AUTHOR 08/25/2017 [facility] DATE CREATED AUTHOR AUTHOR'S ORGANIZ ATION 08/31/2017 [facility] DATE CREATED AUTHOR AUTHOR'S ORGANIZ ATION 10/25/2017 [facility] DATE CREATED AUTHOR AUTHOR'S ORGANIZ ATION 01/07/2018 [facility] DATE CREATED AUTHOR AUTHOR'S ORGANIZ ATION 01/29/2019 [facility] DATE CREATED AUTHOR AUTHOR'S ORGANIZ ATION 07/11/2020 [facility] DATE CREATED AUTHOR AUTHOR'S ORGANIZ ATION 06/07/2022 [facility] DATE CREATED AUTHOR AUTHOR'S ORGANIZ ATION 09/08/2022 [facility] DATE CREATED AUTHOR AUTHOR'S ORGANIZ ATION 06/27/2023 [facility] DATE CREATED AUTHOR AUTHOR'S ORGANIZ ATION 08/28/2023 [facility] DATE CREATED AUTHOR AUTHOR'S ORGANIZ ATION 08/30/2023 [facility] DATE CREATED AUTHOR AUTHOR'S ORGANIZ ATION 09/21/2023 [facility] DATE CREATED AUTHOR AUTHOR'S ORGANIZ ATION 09/23/2023 [facility] d[facility] Specialists EPIC Reason for Visit (unrecogniz ed section and [...] a car in the parking lot @ [facility]. Narcan 7 mg IN per EMS. Status Reason Specialty Diagnoses / Procedures Referred By Contact Referred To Contact Open Vascular Lab Diagnoses Calf swelling Calf pain Procedures [facility] DUPLEX EXTREM VENOUS,UNI OR LTD Misbah Oreilly, DPM [address] [place] [place] [address] [facility] [address] [place] [address] Reason Comments Other , med clear for nursing home. Reason Onset Date Comments Med Refill 04/27/2023 [...] Member Role Status Dates Berenice Haile APRN [employer] HAND-C Attending Provider Act valery Team Status: Active Member Role Status Dates Berenice Haile APRN [employer] HAND-C Primary Care Provider Active Team Status: Inactive Member Role Status Dates Berenice Haile APRN [employer] HAND-C Attending Provider Act valery PHYSICIAN NO FAMILY Primary Care Provider Active Team Status: Inactive Member Role Status Dates Berenice Haile APRN [employer] HAND-C Primary Care Provider Active Ladarius Pitts APRN Attending Provider Active Team Status: Active Member Role Status Dates Lola Montgomery APRN [employer]-C Primary Care Provider Active Team Status: Inactive Member Role Status Dates Johana Hansen NP-C Attending Provider Active Lola Montgomery APRN [employer]-C Primary Care Provider Active College Associate Relationship Specialty Start Date End Date Berenice Haile APRN-JEREMIAS [address] [place] [id number] PCP - General Nurse Practitioner 01/17/23 College Associate Relationship Specialty Start Date End Date Berenice Haile APRN-NP [address] [place] [id number] PCP - General Nurse Practitioner 01/17/23 College Associate Relationship Specialty Start Date End Date Berenice Haile NP [address] [facility] [place] [address] PCP - General Family Medicine 04/11/23 College Associate Relationship Specialty Start Date End Date Berenice Haile NP [address] [facility] [place] [address] PCP - General Family Medicine 04/11/23 College Associate Relationship Specialty Start Date End Date Berenice Haile APRN-PLUG SHAPER HAND [address] [facility] [place] [address] PCP - General Nurse Practitioner 01/17/23 College Associate Relationship Specialty Start Date End Date Berenice Haile APRN-PLUG SHAPER HAND [address] [facility] [address] PCP - General Nurse Practitioner 01/17/23 College Associate Relationship Specialty Start Date End Date Berenice Haile APRN-PLUG SHAPER HAND [address] [facility] [address] PCP - General Nurse Practitioner 01/17/23 College Associate Relationship Specialty Start Date End Date Berenice Haile APRN-PLUG SHAPER HAND [address] [facility] [address] PCP - General Nurse Practitioner 01/17/23 Team Status: Inactive Member Role Status Dates Berenice Haile APRN [employer]ER HANDFelipe Attending Provider Act valery Start: March 21, 2023 End: March 21, 2023 Team Status: Active Member Role Status Dates Lola Montgomery APRN [employer]-C Primary Care Provider Active Start: April 19, 2023 Jaimie Durand Attending Provider Active Start: April 19, 2023 Team Status: Active Member Role Status Dates Berenice Haile APRN [employer]-C Primary Care Provider Active Start: April 282023 Jaimie Durand Attending Provider Active Start: April 28, 2023 Team Status: Inactive Member Role Status Dates Berenice Haile APRN [employer]-C Primary Care Provider, Attending Provider Active Start: May 26, 2023 End: May 26, 2023 College Associate Relationship Specialty Start Date End Date Berenice Haile APRN-[employer] [address] [place] [address] PCP - General Nurse Practitioner 01/17/23 College Associate Relationship Specialty Start Date End Date Berenice Haile APRN-[employer] [address] [place] [address] PCP - General Nurse Practitioner 01/17/23 05/31/23 Team Status: Active Member Role Status Dates Lola Montgomery APRN [employer]-C Primary Care Provider Active Start: April 19, 2023 Jaimie Durand LPN Attending Provider Active S tart: April 19, 2023 Team Status: Active Member Role Status Dates Berenice Haile APRN [employer]-C Primary Care Provider Active Start: April 282023 Jaimie Durand LPN Attending Provider Active S tart: April 28, 2023 Team Status: Inactive Member Role Status Dates Berenice Haile APRN [employer]-C Primary Care Provider Active Start: June 15, [...] BE BASED ON THE PRIMARY CLINICAL RECORDS. [facility]. provides no warranty or guarantee of the accuracy or completeness of information in this document.
--- NOTE | 2023-10-02 15:29 | ED_ITS ---
HPI - Skin/Abscess/Foreign Bdy General Chief complaint: Skin/Abscess/Foreign Body Stated complaint: BOIL RT ARM PIT Time Seen by Provider: 10/02/23 15:19 History of Present Illness HPI narrative: 38-year-old female presents with a chief complaint of a right axillary area of induration. Patient states she has had it for approximately 1 week. She states she has been using warm heat compress. There is not much fluctuance to this. I know this patient well. Patient shows no signs of distress she has not had any fevers or chills. Patient has a 1 x 1.5 cm area of induration to the right axillary region with no lymph node appreciation. Related Data Home Medications ?Medication ?Instructions ?Recorded ?Confirmed lisdexamfetamine 30 mg capsule 30 mg PO BID 11/02/22 10/02/23 (Vyvanse) pregabalin 225 mg capsule (Lyrica) 225 mg PO TID 11/02/22 10/02/23 tizanidine 4 mg capsule (Zanaflex) 4 mg PO BID PRN muscle spasticity 11/02/22 10/02/23 calcium carbonate 600 mg-vitamin 1 tab PO Q12H 11/09/22 10/02/23 D3 10 mcg (400 unit) tablet cyanocobalamin (vitamin B-12) 1,000 mcg subcut .monthly 11/09/22 10/02/23 1,000 mcg/mL injection solution eletriptan 40 mg tablet 40 mg PO .q12 H PRN migraine 11/09/22 10/02/23 headache multivitamin with folic acid 400 1 tab PO DAILY 11/09/22 10/02/23 mcg tablet (Daily-Raegan (with folic acid)) pantoprazole 40 mg tablet,delayed 40 mg PO .morning 11/09/22 10/02/23 release vitamin with calcium 1 tab PO .morning 11/09/22 10/02/23 no.72-iron 27 mg-folic acid 1 mg tablet (M- Plus) topiramate 200 mg tablet 200 mg PO Q12H 11/09/22 10/02/23 valacyclovir 1 gram tablet 1,000 mg PO Q12H 11/09/22 12/03/22 Previous Rx's ?Medication ?Instructions ?Recorded ibuprofen 800 mg tablet 800 mg PO Q8H PRN pain 14 days #40 12/03/22 tabs ondansetron 4 mg disintegrating 4 mg PO Q8H 5 days #15 tabs 12/03/22 tablet valacyclovir 1 gram tablet 1,000 mg PO DAILY 30 days #30 tabs 12/03/22 (Valtrex) Allergies Allergy/AdvReac Type Severity Reaction Status Date / Time amoxicillin Allergy Severe Verified 11/09/22 10:28 cefaclor [From Ceclor] Allergy Severe Flushing Verified 11/09/22 10:28 Penicillins Allergy Verified 11/09/22 10:28 NSAIDS (Non-Steroidal AdvReac Severe Verified 11/09/22 10:29 Anti-Inflamma Review of Systems ROS Narrative All Systems are negative except as noted/marked.All systems reviewed and otherwise negative [facility] Medical History (Updated 10/02/23 @ 15:28 by Joyce Fair) Drug overdose ?T50.901A - Poisoning by unspecified drugs, medicaments and biological substances, accidental (unintentional), initial encounter (ICD-10) Hiatal hernia ?K44.9 - Diaphragmatic hernia without obstruction or gangrene (ICD-10) S/P extracorporeal shock wave therapy ?Z98.890 - Other specified postprocedural states (ICD-10) Multiple sclerosis ?G35 - Multiple sclerosis (ICD-10) Migraine ?G43.909 - Migraine, unspecified, not intractable, without status migrainosus (ICD-10) Attention deficit hyperactivity disorder ?F90.9 - Attention-deficit hyperactivity disorder, unspecified type (ICD-10) ADD (attention deficit disorder) ?F98.8 - Other specified behavioral and emotional disorders with onset usually occurring in childhood and adolescence (ICD-10) Kidney stones ?N20.0 - Calculus of kidney (ICD-10) GERD (gastroesophageal reflux disease) ?K21.9 - Gastro-esophageal reflux disease without esophagitis (ICD-10) Sleep apnea ?G47.30 - Sleep apnea, unspecified (ICD-10) Insomnia ?G47.00 - Insomnia, unspecified (ICD-10) PTSD (post-traumatic stress disorder) ?F43.10 - Post-traumatic stress disorder, unspecified (ICD-10) Panic attacks ?F41.0 - Panic disorder [episodic paroxysmal anxiety] (ICD-10) Anxiety ?F41.9 - Anxiety disorder, unspecified (ICD-10) Rheumatoid arthritis ?M06.9 - Rheumatoid arthritis, unspecified (ICD-10) Lupus ?M32.9 - Systemic lupus erythematosus, unspecified (ICD-10) Anemia ?D64.9 - Anemia, unspecified (ICD-10) Arthritis ?M19.90 - Unspecified osteoarthritis, unspecified site (ICD-10) Back pain ?M54.9 - Dorsalgia, unspecified (ICD-10) DDD (degenerative disc disease) Osteoarthritis ?M19.90 - Unspecified osteoarthritis, unspecified site (ICD-10) Neck pain ?M54.2 - Cervicalgia (ICD-10) Fibromyalgia ?M79.7 - Fibromyalgia (ICD-10) Fusion of spine ?M43.20 - Fusion of spine, site unspecified (ICD-10) Surgical History (Updated 11/09/22 @ 11:04 by Tirxie Duvall) H/O ureteroscopy ?Z98.890 - Other specified postprocedural states (ICD-10) H/O bilateral breast reduction surgery ?Z98.890 - Other specified postprocedural states (ICD-10) History of cholecystectomy ?Z90.49 - Acquired absence of other specified parts of digestive tract (ICD- 10) History of esophagogastroduodenoscopy (EGD) ?Z98.890 - Other specified postprocedural states (ICD-10) S/P epidural steroid injection ?Z92.241 - Personal history of systemic steroid therapy (ICD-10) History of spinal surgery ?Z98.890 - Other specified postprocedural states (ICD-10) History of gastric bypass ?Z98.84 - Bariatric surgery status (ICD-10) Family History (Updated 11/09/22 @ 11:21 by Trixie Duvall) Other Drug overdose Family history of MS (multiple sclerosis) Family history of diabetes mellitus Family history of emphysema Family history of hypertension Family history of myocardial infarction Family history of stroke Social History (Updated 11/09/22 @ 10:52 by Trixie Duvall) Within the past year, how often did you have a drink containing alcohol: never Score interpretation: A score less than 3 is consistent with normal alcohol consumption. Do you use any of these nicotine containing products: vaping products Nicotine containing products detail: mercy Non-prescribed substance use: denies use Previous occupational history: disabled Highest level of school completed/degree received: high school graduate Exam Constitutional Vital Signs, click to edit/add: Last Vital Signs Temp 98.1 F 10/02/23 14:47 Pulse 92 H 10/02/23 14:47 Resp 16 10/02/23 14:47 BP 103/72 10/02/23 14:47 Pulse Ox 98 10/02/23 14:47 O2 Del Method Room Air 10/02/23 14:47 Common normals: no apparent distress General appearance: cooperative and comfortable Orientation/consciousness: Yes awake, Yes oriented to person, Yes oriented to place and Yes oriented to time HENMT Common normals: normocephalic and head/scalp atraumatic Head and scalp: normal to inspection, normocephalic and atraumatic Face and sinus: normal facial exam Chest Common normals: inspection of chest normal Respiratory Common normals: normal respiratory effort, no retractions and no use of accessory muscles Cardio Common normals: regular rate and regular rhythm Extremity Common normals: normal to inspection, full ROM and normal capillary refill General: normal exam except as noted Other: 1 cm By 1.5 cm area of erythema, no fluctuance or acute abscess noted to the right axillary region, Neuro Common normals: oriented x3 and CN's II-XII intact bilaterally Psych Common normals: mental status grossly normal Course Vital Signs Vital signs: Vital Signs Temperature 98.1 F 10/02/23 14:47 Pulse Rate 92 H 10/02/23 14:47 Respiratory Rate 16 10/02/23 14:47 Blood Pressure 103/72 10/02/23 14:47 Pulse Oximetry 98 10/02/23 14:47 Oxygen Delivery Method Room Air 10/02/23 14:47 Temperature 98.1 F 10/02/23 14:47 Pulse Rate 92 H 10/02/23 14:47 Respiratory Rate 16 10/02/23 14:47 Blood Pressure 103/72 10/02/23 14:47 Pulse Oximetry 98 10/02/23 14:47 Oxygen Delivery Method Room Air 10/02/23 14:47 MDM - Skin/Abscess/Foreign Bdy MDM Narrative Medical decision making narrative: 38-year-old female presents here with a chief complaint of right axillary area of induration. No incision and drainage necessary at this time. Minimal fluctuance is noted. Patiently placed on Keflex and Bactrim. She will follow- up in her physician's office later this week. Told continue with warm heat compress. Patient shows no signs of distress. Patient agrees with plan of care. Patient denies known history of hidradenitis. There is no lymph node involvement. Differential Diagnosis Differential diagnosis: Likely abscess of skin or subcutaneous tissue Medical Records Attestation: I reviewed the patient's medical records. Lab Data Attestation: I reviewed the patient's lab results. Discharge Plan Discharge Stand Alone Forms: Portal Instructions Chief Complaint: Skin/Abscess/Foreign Body Clinical Impression: Abscess Patient Disposition: Home, Self-Care Time of Disposition Decision: 15:27 Condition: Good Prescriptions / Home Meds: No Action calcium carbonate-vitamin D3 600 mg-10 mcg (400 unit) tablet 1 tab PO Q12H cyanocobalamin (vitamin B-12) 1,000 mcg/mL solution 1,000 mcg subcut .monthly eletriptan 40 mg tablet 40 mg PO .q12 H PRN (Reason: migraine headache) multivitamin with folic acid [Daily-Raegan (with folic acid)] 400 mcg tablet 1 tab PO DAILY pantoprazole 40 mg tablet,delayed release (DR/EC) 40 mg PO .morning M-Myron Plus 27 mg iron- 1 mg tablet 1 tab PO .morning topiramate 200 mg tablet 200 mg PO Q12H valacyclovir 1 gram tablet 1,000 mg PO Q12H valacyclovir [Valtrex] 1 gram tablet 1,000 mg PO DAILY 30 Days Qty: 30 0RF Rx Instructions: 3 refills ibuprofen 800 mg tablet 800 mg PO Q8H PRN (Reason: pain) 14 Days Qty: 40 0RF ondansetron 4 mg tablet,disintegrating 4 mg PO Q8H 5 Days Qty: 15 0RF lisdexamfetamine [Vyvanse] 30 mg capsule 30 mg PO BID tizanidine [Zanaflex] 4 mg capsule 4 mg PO BID PRN (Reason: muscle spasticity) pregabalin [Lyrica] 225 mg capsule 225 mg PO TID Print Language: German Instructions: Abscess (ED) Referrals: RITA MORRIS [Primary Care Provider] - 1 week
== END 2023-10-02 15:34 | disposition home or self-care (01) ==
PROVIDERS: Emergency Provider Emergency Medicine; PCP Nurse Practitioner Family
DX: L02.411 Cutaneous abscess of right axilla (principal)
CPT/HCPCS: 99283

== ENCOUNTER 2023-10-26 17:01 | Outpatient (OUT) | payer MEDICAID, SELFPAY ==
[2023-10-28 04:08] LABS: Progesterone 10.5 ng/mL (.)
== END 2023-10-26 17:02 | disposition home or self-care (01) ==
PROVIDERS: PCP Nurse Practitioner Family; Visit Provider Obstetrics & Gynecology
DX: N97.9 Female infertility, unspecified (principal); E28.2 Polycystic ovarian syndrome
CPT/HCPCS: 36415; 84144

== ENCOUNTER 2023-11-25 17:01 | Outpatient (OUT) | payer MEDICAID, SELFPAY ==
--- OUTSIDE RECORDS SUMMARY | 2023-11-25 17:23 | XMS_ITS | CCD ---
Author Organization [facility] Care Team Providers Care Gaming Worker Name Role Phone SELENE FRANKLINIZAN Unavailable Unavailable Katty, Rosana Unavailable Unavailable karthik [...] Unavailable Katty, Rosana M Primary Care Provider [phone] Katty, Rosana Unavailable Katty, Rosana Primary Care Provider [phone] JENNIFER WHALEY Attending Unavailable ROSANA ALANIZ M Primary Care Unavailable ROSANA ALANIZ M Primary Care Unavailable WAYLON MONTOYA Attending Unavailable Katty Rosana Primary Care Provider [phone] Rosana Alaniz CNP Primary Care Provider KATTY ROSANA Primary Care Unavailable KATTY, ROSANA Referring Unavailable ALEYDA GOMEZ Admitting Unavailable ALEYDA GOMEZ Attending Unavailable Katty HOME SALES CONSULTANT - Rosana AREVALO Primary Care Provider Agus [place] Unavailable Billingsley, Liz Unavailable ROSALIA ., DR SUTTON Admitting Unavailabl e KARASIK ., DR SUTTON Attending Unavailabl e AICHHOLZ, ALUMINUM MOLDING MACHINE OPERATOR TERE Primary Care Unavailable KARASIK ., DR SUTTON Consulting Unavailabl e AICHHOLZ, ALUMINUM MOLDING MACHINE OPERATOR TERE Admitting Unavailable AICHHOLZ, ALUMINUM MOLDING MACHINE OPERATOR TERE Attending Unavailable AICHHOLZ, ALUMINUM MOLDING MACHINE OPERATOR TERE Primary Care Unavailable AICHHOLZ, ALUMINUM MOLDING MACHINE OPERATOR TERE Consulting Unavailable AICHHOLZ, ALUMINUM MOLDING MACHINE OPERATOR TERE Admitting Unavailable AICHHOLZ, ALUMINUM MOLDING MACHINE OPERATOR TERE Attending Unavailable AICHHOLZ, ALUMINUM MOLDING MACHINE OPERATOR TERE Primary Care Unavailable AICHHOLZ, ALUMINUM MOLDING MACHINE OPERATOR TERE Consulting Unavailable CASSY, DR Arthur Hansen Admitting Unavailable CASSY, DR Arthur Hansen Attending Unavailable AICHHOLZ, ALUMINUM MOLDING MACHINE OPERATOR TERE Primary Care Unavailable BRIGIDA RAHMAN Attending Unavailable SILVESTRE PHIPPS Primary Care Unavailryne e Berenice Haile Unavailable GENOVEVA Haile Attending Provider GENOVEVA Haile Attending Provider [phone] NO FAMILY, PHYSICIAN Primary Care Provider Unava ilable GENOVEVA Haile Primary Care Provider GENOVEVA Pitts Attending Provider Ladarius Pitts Unavailable GENOVEVA Haile Primary Care Provider GENOVEVA Pitts Attending Provider EVANGELINA Hansen Attending Provider [phone] GENOVEVA Montgomery Primary Care Provider [phone] Berenice Dempsey Primary Care [facility] Berenice Haile NP Primary Care Provider Berenice Dempsey Primary Care [facility] GENOVEVA Haile Primary Care Provider DO [...] Unavailable AICHHOLZ, TERE J Primary Care Unavailable BLAKE COREA Attending Unavailable BLAKE COREA Attending Unavailable RENETTA PASTOR Attending Unavailable BLAKE COREA Attending Unavailable JASWANT HUSSEIN Attending Unavailable ROHRBACHER, BERENICE Referring Unavailable ROHRBACHER, BERENICE Primary Care Unavailable ANUP BUTLER Attending Unavailable ANUP BUTLER Referring Unavailable ROHRBACHER, BERENICE Primary Care Unavailable ANUP BUTLER Admitting Unavailable ANUP BUTLER Attending Unavailable ROHRBACHER, BERENICE Referring Unavailable ROHRBACHER, BERENICE Primary Care Unavailable ROHRBACHER, BERENICE Primary Care Unavailable LAITH BECK Attending Unavailable RENETTA ELIZALDE Attending Unavailable ROHRBACHER, BERENICE Referring Unavailable ROHRBACHER, BERENICE Primary Care Unavailable KYLAH AMADO Attending Unavailable AICHHOLZ, TERE J Primary Care Unavailable KYLAH AMADO Attending Unavailable KYLAH AMADO Referring Unavailable AICHHOLZ, TERE J Primary Care Unavailable ANUP BUTLER Attending Unavailable ANUP BUTLER Referring Unavailable AICHHOLZ, TERE J Primary Care Unavailable ANUP BUTLER Admitting Unavailable ANUP BUTLER Attending Unavailable ANUP BUTLER Referring Unavailable AICHHOLZ, TERE J Primary Care Unavailable DECLAN MONK Attending Unavailable AICHHOLZ, TERE J Primary Care Unavailable Kylah Gould Referring Unavailable JACIEL, TERE Rosana Primary Care Unavailable ELAYNE LUCIANO Referring Unavailable JACIEL, TERE Wayne Primary Care Unavailable ELAYNE LUCIANO Referring Unavailable AICMarileeREECE, TERE Rosana Primary Care Unavailable CARLI ELIZALDE Attending Unavailable TERE GRISSOM Referring Unavailable TERE GRISSOM Primary Care Unavailable BERENICE HAILE Referring Unavailable BERENICE HAILE Primary Care Unavailable Allergies Allergy Classification Reported Allergen(s) Allergy Type Date of Onset Reaction(s) Facility Acetaminophen / Codeine (1 source) Acetaminophen / Codeine; Translations: [ACETAMINOPHEN-CODE INE] Drug Allergy 019 [facility] Repository Cephalosporins (antibiotic) (3 sources) Cefaclor; Translations: [CEPHALOSPORINS] Drug Allergy [facility] Repository NSAIDs (2 sources) NSAIDs; Translations: [IBUPROFEN] Drug Allergy [facility] Repository Opioid Agonists (2 sources) fentaNYL; Translations: [CODEINE] Drug Allergy 017 Fentanyl [facility] Repository Penicillins (antibiotic) (7 sources) Penicillins; Translations: [AMOXICILLIN] Drug Allergy 015 Shock [facility] Repository Sulfamethoxazole / Trimethoprim (1 source) Sulfamethoxazole / Trimethoprim Drug Allergy 020 Skin Rashes [facility] Work Phone: Unclassified (1 source) TYLENOL CODEINE #3; Translations: [TYLENOL CODEINE #3] Propensity to adverse reactions (disorder) [facility] Repository (20 sources) amoxicillin; Translations: [amoxicillin] Drug Allergy 017 [facility], Unknown, Unknown Reaction [facility] Repository (20 sources) ampicillin; Translations: [Ampicillin] Drug Allergy [facility] (20 sources) Penicillins; Translations: [PENICILLINS] Allergy to substance (disorder) 013 Anaphylaxis, Shock, Hives, Rash [facility] (20 sources) Vespid (bees, hornets, wasps, yellow jackets); Translations: [Vespid (bees, hornets, wasps, yellow jackets)] Allergy to substance (disorder) [facility] (6 sources) -No Known Food Allergies Allergy to substance (disorder) [facility] (1 source) penicillin; Translations: [PENICILLIN] Drug Allergy 018 AOF [facility] Repository (4 sources) amoxicillin; Translations: [amoxicillin] Drug Allergy [facility] (4 sources) ampicillin; Translations: [Ampicillin] Drug Allergy [facility] (18 sources) Amoxicillin Drug Allergy 015 Anaphylaxis, Hives [place], [place] (20 sources) Cefaclor; Translations: [CEFACLOR] Drug Allergy 015 Hives, Other (See Comments), Anaphylaxis [place], [place] (20 sources) Codeine; Translations: [CODEINE] Drug All[facility]15 [facility] [place] [place] (16 sources) NSAIDs; Translations: [NSAIDS (Non-Steroidal Anti-Inflammatory Drug)] Allergy to substance 016 [facility] Repository (10 sources) fentaNYL Drug Allergy 020 Fentanyl [facility] Work Phone: (9 sources) Sulfamethoxazole / Trimethoprim Drug Allergy 020 Skin Rashes [facility] Work Phone: (16 sources) Cefaclor; Translations: [Ceclor] Drug Allergy 013 Unknown [facility] Repository (19 sources) Penicillin G Drug Allergy 018 Anaphylaxis, Rash, Unknown [employer] Other (2 sources) Amoxicillin Drug Allergy [facility] Repository (2 sources) Codeine Drug Allergy [facility] Repository (3 sources) Acetaminophen; Translations: [acetaminophen] Drug Allergy 01-04-2 022 Unknown Reaction [facility] (7 sources) Latex; Translations: [latex] Allergy to substance Unknown Reaction, Rash [facility] (12 sources) Acetaminophen / Codeine; Translations: [ACETAMINOPHEN-CODE INE] Drug Allergy [facility] (2 sources) Non-steroidal anti-inflammatory agent Drug Allergy [facility] (1 source) Amoxicillin Drug Allergy [facility] Repository (1 source) Cefaclor Drug Allergy [facility] Repository (1 source) Codeine Drug Allergy [facility] Repository (1 source) Penicillin Drug Allergy [facility] Repository Medications Current Medications Medication Drug [...] Probiotic Oral Capsule (9 sources) Start: 03-06-20 19 Advanced Probiotic Oral [...] once daily at bedtime increased by dr sprout take 1 tablet by enriqueta th once daily at bedtime amitriptyline 50 mg [...] - 02/04/2020 Provider: take 1 capsule by [facility] every twenty-four hours Adderall XR 20 MG 1 capsule in the morning Orally Once a day Not-Taking/PRN take 1 capsule by [facility] once daily in the morning amphetamine-dextroamphetamine (ADDERALL [...] Start: 12-09-2016 take 2 tablets by mo [facility] once daily, then take 1 tablet by [...] 04/01/2018 Provider: biotin 1 mg oral capsule Blood-Glucose Meter (Blood Glucose Monitoring) kit (1 source) Start: 10-06-2023 Blood-Glucose Meter (Blood Glucose Monitoring) kit Active 0 .Route 1 October 06, 2023 12:00am Use to test sugar daily buprenorphine 4 mg / naloxone 1 mg sublingual film (17 sources) Partial Opioid Agonist, Opioid Antagonist Start: [...] Provider: calcium carbonate 1500 mg oral tablet (7 sources) Start: 04-28-2023 End: 04-28-2023 take 1 [...] 05/05/2018 Provider: Start: 04-01-2018 End: 02-04-[address] [facility] 04/01/2018 - Provider: Start: 04-01-2018 End: 04-01-[address] [facility] 04/01/2018 - Provider: Cassie oral chlorhexidine gluconate [...] (Vitamin D3) Active 25 MCG PO Daily 90 90 April 28, 2023 2:08pm Start: 03-08-2019 End: [...] CNP cyclobenzaprine hydrochloride 10 mg oral tablet (14 sources) Muscle Relaxant Start: 03-16-2023 take 10 [...] Start: 04-01-2018 End: 02-04-[address] [facility] - 02/04/2020 Provider: Start: 04-01-2018 End: 04-01-2018 [facility] Provider: Start: 04-01-2018 End: 04-01-[address] [facility] 03/08 - 04/01/2018 Provider: take 1 tablet [...] CNP docosahexaenoic acid 200 mg oral capsule (3 sources) Start: 05-26-2023 take 1 capsule by [...] Start: 12-13-2022 take 1 tablet by enriqueta every twenty-four hours Famotidine 40 MG 1 [...] 11-24-2017 FERROUS SULFATE 325 mg([address] [facility] 11/24/2017 - 11/24/2017 Provider: take 1 tablet by enriqueta th once daily ferrous sulfate 325 mg (65 mg iron) oral tablet take 1 tablet (325 mg) by oral route once daily Fiber (14 sources) Fiber Active fluconazole 150 mg oral tablet (20 sources) [...] Tablet 01/24/2020 - 10/25/2019 Provider: Rosana Alaniz ALUMINUM MOLDING MACHINE OPERATOR Start: 01-24-2020 End: 10-25-2019 Diflucan 150 MG Oral Tablet 01/24/2020 - 10/25/2019 Provider: Rosana Alaniz ALUMINUM MOLDING MACHINE OPERATOR Start: 12-09-2016 take 1 tablet by mouth [...] Furosemide Active 20 MG PO Daily 90 May 26, 2023 2:20pm Start: 12-06-2022 [...] Provider: lisdexamfetamine dimesylate 50 mg oral capsule (18 sources) Central Nervous System Stimulant Start: 05-26-2023 take 50 mg by mouth once daily Lisdexamfetamine Active 50 MG PO Daily May 26, 2023 12:00am Start: 12-01-2022 take 1 capsule by mo uth at bedtime lisdexamfetamine (VYVANSE) 30 mg capsule [...] ORAL) 1 tablet 0 Active Multivitamin preparation (17 sources) Start: 05-26-2023 take 1 tablet by [...] IN 24 HOURS 0 05/25/2021 Active nystatin 736014 unt/ml / triamcinolone acetonide 1 mg/ml topical cream (20 sources) Polyene Antifungal, Corticosteroid Start: 11-20-2018 End: 02-20-2019 Nystatin-Triamcin olone 498954-7.1 UNIT/GM-% External Cream 02/20/2019 Provider: Rosana Alaniz [...] Start: 04-01-2018 End: 02-04-[address] [facility] 2018 - 02/04/2020 Provider: Start: 04-01-2018 End: 04-01-[address] [facility] 2018 - 04/01/2018 Provider: take 1 tablet [...] 04-01-2018 End: 02-04-2020 POTASSIUM CHLORIDE 20 mEq [facility] 04/01/2018 - 02/04/2020 Provider: Start: 04-01-2018 End: 04-01-2018 POTASSIUM CHLORIDE 20 mEq [facility] 04/01/2018 - 04/01/2018 Provider: Start: 07-14-2017 End: 02-04-2020 POTASSIUM CHLORIDE 20 mEq [facility] 07/14/2017 - 02/04/2020 Provider: Start: 07-14-2017 End: 07-14-2017 POTASSIUM CHLORIDE 20 mEq [facility] 07/14/2017 - 07/14/2017 Provider: Start: 07-14-2017 take 1 tablet by enriqueta th twice daily potassium chloride 20 mEq oral [...] Start: 04-01-2018 End: 02-04-[address] [facility] - 02/04/2020 Provider: Start: 04-01-2018 End: 04-01-[address] [facility] - 04/01/2018 Provider: Start: 04-01-2018 End: 04-01-[address] [facility] 04/01/2018 - 04/01/2018 Provider: take 1 capsule [...] Psyllium Husk (Daily Fiber) 0.4 gram capsule (3 sources) Start: 05-26-19 Psyllium Husk (Daily Fiber) [...] a day for 28 day(s) Mar, Active sulfamethoxazole 800 mg / trimethoprim 160 mg oral tablet (20 sources) Dihydrofolate Reductase Inhibitor Antibacterial, Sulfonamide Antimicrobial Start: 10-06-2023 take 1 tablet by mouth twice daily Sulfamethoxazole-Trimeth oprim (Bactrim Ds) 800-160 mg tablet Active 1 TAB PO Twice daily 10 October 06, 2023 12:00am Start: 05-26-2023 End: 06-15-2023 take 1 tablet by mouth twice daily Sulfamethoxazole-Trimethoprim (Bactrim D s) 800-160 mg tablet Discontinued 1 TAB PO [...] 03/17/2019 - 09/06/2019 Provider: Rosana Alaniz CNP Tab-A-Raegan Oral Tablet (6 sources) Start: 05-05-2018 Tab-A-Raegan Ora l Tablet 05/05/2018 Provider: thioctic acid 600 mg [...] Active traZODone hydrochloride 100 mg oral tablet (5 sources) Serotonin Reuptake Inhibitor Start: 05-26-2023 take [...] Start: 08-16-2017 End: 02-04-[address] [facility] 02/2018 - 02/04/2020 Provider: Start: 08-16-2017 End: 08-16-[address] [facility] 02/2018 - 08/16/2017 Provider: Start: 04-24-2016 End: 11-03-2020 take 1 tablet by mouth in the morning valACYclovir (VALTREX) 500 mg tablet Take 1 tablet (500 mg total) by mouth in the morning. 1 04/24/2016 Active vitamin b12 1 mg/ml injectable solution (20 sources) Vitamin B12 Start: 10-06-2023 inject 1000 ug by subcutaneous injection every month Cyanocobalamin (Vitamin B-12) Active 1000 MCG SUBCUT every month 04 05October 06, 2023 12:00am Start: 06-01-2021 cyanocobalamin (VITAMIN B-12) 1,000 mcg/mL [...] End: 04-01-2018 CYANOCOBALAMIN (VITAMIN B-12 ) 1,000MCG/ML [facility] 04/01/2018 - 04/01/2018 Provider: Start: 02-16-2018 take 1 mL by intramu scular injection every month cyanocobalamin (vitamin B-12) 1,000 mcg/mL injection solution 02/16/2018 inject 1 milliliter (1,000 mcg) by intramuscular route once a month Start: 02-16-2018 End: 02-16-2018 CYANOCOBALAMIN (VITAMIN B-12 ) 1,000MCG/ML MISC 02/16/2018 - 02/16/2018 Provider: Start: 12-22-2017 End: [...] Start: 04-01-2018 End: 02-04-2020 FIORICET 50-300-[address] [facility] 04/01/2018 - 02/04/2020 Provider: Start: 04-01-2018 End: 04-01-2018 FIORICET 50-300-[address] [facility] 04/01/2018 - 04/01/2018 Provider: Start: 04-01-2018 End: 04-01-2018 FIORICET 50-300-40MG [facility] 04/01/2018 - 04/01/2018 Provider: take 1 tablet by enriqueta twice daily as needed for headache mswwilcknf-cywgborvadtcv-mxsxgxkz (FIORICET, ESGIC) 50-325-40 MG per tablet Take [...] Provider: take 1 tablet by enriqueta th four times daily as needed diphenoxylate-atropine 2.5-0.025 [...] oral solution (17 sources) alpha-Adrenergic Agonist, Uncompetitive V-vmqbjc-T-aspartate Receptor Antagonist, Sigma-1 Agonist Start: 03-29-2017 take 5-10 mL by mouth every four to six hours as needed for cough Bromfed DM 2-30-10 mg/5 mL oral syrup 03/29/2017 take 5-10 milliliters by oral route every 4-6 hours as needed for cough Brompheniramine / Pseudoephedrine (20 sources) alpha-Adrenergic Agonist Start: 08-18-2017 End: 02-04-2020 BROMFED DM 2-30-10 MG/[address] [facility] 08/18/2017 - 02/04/2020 Provider: Start: 08-18-2017 End: 08-18-2017 BROMFED DM 2-30-10 MG/5 ML [facility] 08/18/2017 - 08/18/2017 Provider: Start: 08-18-2017 End: 08-18-2017 BROMFED DM 2-30-10MG/5 ML [facility] 08/18/2017 - 08/18/2017 Provider: Start: 03-29-2017 End: 02-04-2020 BROMFED DM 2-30-10 MG/5 ML [facility] 03/29/2017 - 02/04/2020 Provider: Start: 03-29-2017 End: 03-29-2017 BROMFED DM 2-30-10 MG/5 ML [facility] 03/29/2017 - 03/29/2017 Provider: Start: 03-29-2017 End: 03-29-2017 BROMFED DM 2-30-10MG/5 ML [facility] 03/29/2017 - 03/29/2017 Provider: Start: 01-06-2017 End: 02-04-2020 BROMFED DM 2-30-10 MG/5 ML [facility] 01/06/2017 - 02/04/2020 Provider: Start: 01-06-2017 End: 01-06-2017 BROMFED DM 2-30-10 MG/5 ML [facility] 01/06/2017 - 01/06/2017 Provider: Start: 01-06-2017 End: 01-06-2017 BROMFED DM 2-30-10MG/5 ML [facility] 01/06/2017 - 01/06/2017 Provider: Calcium (20 sources) Phosphate Binder, Calcium Start: 03-08-2019 End: 10-20-2020 Calcium 600 600 MG Oral Tablet 03/08/2019 - 10/20/2020 Provider: Rosana Alaniz CNP Start: 03-08-2019 Calcium 600 60 0 MG Oral Tablet 03/08/2019 Provider: Rosana Alaniz CNP Start: 05-05-2018 End: 02-20-2019 Calcium 600 Oral [...] 600 WITH VITAMIN D3 600 mg(1,500mg)-[address] [facility] 11/24/2017 - 11/24/2017 Provider: calcium carbonate 1500 [...] Start: 08-16-2017 End: 02-04-[address] [facility] 08/16/2017 - 02/04/2020 Provider: Start: 08-16-2017 End: 08-16-[address] [facility] 08/16/2017 - 08/16/2017 Provider: Clindamycin (20 sources) Lincosamide Antibacterial Start: 04-01-2018 End: 02-04-[address] [facility] 04/01/2018 - 02/04/2020 Provider: Start: 04-01-2018 End: 04-01-[address] [facility] 04/01/2018 - 04/01/2018 Provider: Start: 04-01-2018 End: 04-01-[address] [facility] 04/01/2018 - 04/01/2018 Provider: take 1 capsule by mo [facility] four times daily clindamycin HCl 300 mg [...] sources) Histamine-1 Receptor Antagonist Start: 01-10-2020 Diphenhydramine Jan, 25 mg docusate sodium 100 mg oral [...] 01-03-2019 fentaNYL (SUBLIMAZE) injecti on 100 mcg Flash Glucose Scanning Reade r (Freestyle Vy 2 [place]) misc (3 sources) Start: 04-28-2023 End: 10-06-2023 Flash Glucose Scanning Reade r (Freestyle Vy 2 [place]) misc Discontinued 0 .Route 1 April 28, 2023 1:00am October 06, 2023 1:18pm As directed Start: 04-28-2023 Flash Glucose Scanning [place] (Freestyle Vy 2 [place]) misc Active 0 .Route 1 April 28, 2023 1:00am As directed Flash Glucose Sensor (Freest yle Vy 2 Sensor) kit (3 sources) Start: 04-28-2023 End: 10-06-2023 Flash Glucose Sensor (Freest yle Vy 2 Sensor) kit Discontinued 0 .Route 2 April 28, 2023 1:00am October 06, 2023 1:18pm As directed Start: 04-28-2023 Flash Glucose Sensor (Freestyle Vy 2 Sensor) kit Active 0 .Route 2 April 28, 2023 1:00am As directed FLONASE ALLERGY RELIEF 50 MCG/ACTUAT MISC (13 [...] Conversion Provider take 1 tablet by enriqueta th four times daily as needed hydroxyzine HCl [...] needed for Pain. 0 Active lactobacillus acidophilus [id number] unt oral capsule (9 sources) Start: 02-16-2018 take 1 capsule by mouth once daily Probiotic 10 billion cell oral capsule 02/16/2018 take 1 capsule by oral route daily Start: 02-01-2017 take 1 capsule by mo ut once daily Probiotic 10 billion cell oral capsule 02/01/2017 take 1 capsule by oral route daily loperamide hydrochloride 2 mg oral tablet (20 sources) Opioid Agonist Start: 01-06-2017 End: 02-04-2020 Imodium A-D 2 MG OR TABS 01/06/2017 - 02/04/2020 Provider: MAXALT-EEG TECHNICIAN 10 MG MISC (20 sources) Start: 01-25-2018 End: 01-25-2018 MAXALT-EEG TECHNICIAN 10 MG MISC 01/25/2018 - 01/25/2018 Provider: Start: 08-16-2017 End: 08-16-2017 MAXALT-EEG TECHNICIAN 10 MG MISC 2017 - 08/16/2017 Provider: Start: 05-20-2017 End: 05-20-2017 MAXALT-EEG TECHNICIAN 10 MG MISC 2017 - 05/20/2017 Provider: Start: 02-01-2017 End: 02-01-2017 MAXALT-EEG TECHNICIAN 10 MG MISC 2016 - 02/01/2017 Provider: MAXALT-EEG TECHNICIAN 10 MG MISC (10 sources) Start: 01-25-2018 End: 02-04-2020 MAXALT-EEG TECHNICIAN 10 MG MISC 2017 - 02/04/2020 Provider: Start: 08-16-2017 End: 02-04-2020 MAXALT-EEG TECHNICIAN 10 MG MISC 2017 - 02/04/2020 Provider: Start: 05-20-2017 End: 02-04-2020 MAXALT-EEG TECHNICIAN 10 MG MISC 2017 - 02/04/2020 Provider: Start: 02-01-2017 End: 02-04-2020 MAXALT-EEG TECHNICIAN 10 MG MISC 2016 - 02/04/2020 Provider: MAXALT-EEG TECHNICIAN 10MG MISC (15 sources) Start: 01-25-2018 End: 01-25-2018 MAXALT-EEG TECHNICIAN 10MG MISC 018 - 01/25/2018 Provider: Start: 08-16-2017 End: 08-16-2017 MAXALT-EEG TECHNICIAN 10MG MISC 018 - 08/16/2017 Provider: Start: 05-20-2017 End: 05-20-2017 MAXALT-EEG TECHNICIAN 10MG MISC 018 - 05/20/2017 Provider: Start: 02-01-2017 End: 02-01-2017 MAXALT-EEG TECHNICIAN 10MG MISC 017 - 02/01/2017 Provider: Medical Compression Stocking s Miscellaneous (11 sources) Start: 01-04-2019 End: 02-03-2019 Medical Compression Stockings Miscellaneous 01/04/2019 - 02/03/2019 Provider: Pirmitivo Lujan CNP Medical Compression Stocking s Miscellaneous [...] 04-01-2018 DEPO-PROVERA MISC 04/01/2018 - 04/01/2018 Provider: CarltonoKimberlyProvera int ramuscular methocarbamol 500 mg oral tablet [...] 07/16/2019 Provider: Rosana Alaniz CNP polymyxin b 90853 unt/ml / trimethoprim 1 mg/ml ophthalmic solution [...] - 02/04/2020 Provider: PROBIOTIC 10 billion CELL LA SC (20 sources) Start: 02-16-2018 End: 02-16-2018 PROBIOTIC 10 billion CELL MISC 02/16/2018 - 02/16/2018 Provider: Start: 02-01-2017 End: 02-01-2017 PROBIOTIC 10 billion CELL LA SC 02/01/2017 - 02/01/2017 Provider: PROBIOTIC 10 billion CELL LA SC (4 sources) Start: 02-16-2018 End: 02-04-2020 PROBIOTIC 10 billion CELL LA SC 02/16/2018 - 02/04/2020 Provider: Start: 02-01-2017 End: 02-04-2020 PROBIOTIC 10 billion CELL LA SC 02/01/2017 - 02/04/2020 Provider: PROBIOTIC 10 [...] 11-24-2017 End: 11-24-2017 PROMETHAZINE 25 MG MISC 11/06 - 11/24/2017 Provider: Start: 11-24-2017 End: [...] Start: 05-05-2018 take 1 capsule by mo [facility] every twenty-four hours Propranolol HCl ER 160MG Oral Capsule Extended Release 24 Hour 05/05/2018 Provider: Start: 04-01-2018 End: 02-04-2020 PROPRANOLOL 160 MG MISC 04/01/2018 - 02/04/2020 Provider: Start: 04-01-2018 End: 04-01-2018 PROPRANOLOL 160 MG MISC 04/01/2018 - 04/01/2018 Provider: Start: 04-01-2018 End: 04-01-2018 PROPRANOLOL 160MG MISC 04/01 - 04/01/2018 Provider: Start: 11-24-2017 take 1 capsule by mouth once d aily propranolol 160 mg oral capsule,extended release 24 hr 11/24/2017 take 1 capsule (160 mg) by oral route once daily Start: 11-24-2017 End: 02-04-2020 PROPRANOLOL 160 MG MISC 11/24/2017 - 02/04/2020 Provider: Start: 11-24-2017 End: 11-24-2017 PROPRANOLOL 160 MG MISC 11/24/2017 - 11/24/2017 Provider: Start: 11-24-2017 End: 11-24-2017 [facility] 11/24 - 11/24/2017 Provider: Start: 05-26-2017 take 1 capsule by mouth once d aily propranolol 160 mg oral capsule,extended release 24 hr 05/26/2017 take 1 capsule (160 mg) by oral route once daily Start: 05-26-2017 End: 02-04-[address] [facility] 05/26/2017 - 02/04/2020 Provider: Start: 05-26-2017 End: 05-26-[address] [facility] 05/26/2017 - 05/26/2017 Provider: Start: 05-26-2017 End: 05-26-[address] [facility] 05/26 - 05/26/2017 Provider: take 1 tablet [...] 01/21/2019 Provider: Rosana Alaniz CNP Start: 01-25-2018 Maxalt-EEG TECHNICIAN 10 mg oral tablet,disintegrating 01/25/2018 DISSOLVE 1 TABLET (10 MG) ON TOP OF THE TONGUE, THEN SWALLOW BY ORAL ROUTE ONCE, MAY REPEAT IN 2 HOURS, NOT AT SAME TIME IMITREX Start: 08-16-2017 Maxalt-EEG TECHNICIAN 10 mg oral tablet,disintegrating 08/16/2017 dissolve 1 tablet (10 mg) on top of the tongue, then swallow by oral route once, may repeat in 2 hours, not at same time as imitrex Start: 08-16-2017 Maxalt-EEG TECHNICIAN 10 mg oral tablet,disintegrating 08/16/2017 dissolve 1 [...] times daily 0 01/03/2019 Discontinued (Therapy completed) SUMAtriptan 100 mg oral tablet (20 sources) [...] 08/16/2017 Provider: vortioxetine 10 mg oral tablet (5 sources) Start: 05-26-2023 End: 06-15-2023 take 1 [...] Chronic Attention-deficit conduct and disruptive behavior disorders (11 sources) Attention deficit hyperactivity disorder; Translations: [Attention-deficit [...] Onset: 7 Episodic Diabetes mellitus without complication (2 sources) Hyperglycemia, unspecified; Translations: [Hyperglycemia] Episodic E Codes: Struck by; against (1 [...] [Chronic cluster headache] Onset: 7 05-26-2023 Chronic Hepatitis (20 sources) Viral hepatitis C; Translations: [Unspecified viral hepatitis C without hepatic coma] Onset: 1 Resolved: 1 Episodic Immunizations and screening for infectious disease (9 sources) Screening examination for venereal disease; Translations: [Encounter for screening for human papillomavirus (HPV)] Onset: 8 Episodic Mood disorders (20 sources) Bipolar disorder, unspecified; Translations: [Depressive disorder, not elsewhere classified] Onset: 7 Chronic Multiple sclerosis (15 sources) Multiple sclerosis; Translations: [Multiple sclerosis] Chronic Nutritional deficiencies (8 sources) Vitamin D deficiency, unspecified; Translations: [Vitamin [...] myositis, unspecified Episodic Other connective tissue disease (13 sources) Fibromyalgia; Translations: [Fibromyalgia] 04-28-2023 Episodic Other [...] sources) Polycystic ovaries Chronic Other endocrine disorders (3 sources) Hypoglycemia; Translations: [Hypoglycemia, unspecified] 04-28-2023 Chronic [...] 0 10-17-2019 Chronic Other nervous system disorders (13 sources) Chronic pain; Translations: [Other chronic pain] [...] stomach [part of] Episodic Residual codes; unclassified (3 sources) Insomnia; Translations: [Insomnia, unspecified] 05-26-2023 Episodic Residual codes; unclassified (2 sources) Altered mental status; Translations: [Altered mental status, [...] intervertebral disc of lumbar spine] Substance-related disorders (14 sources) Substance abuse; Translations: [Other psychoactive substance [...] fracture of right foot, initial encounter] Unclassified (3 sources) Chiari malformation; Translations: [Chiari malformation] 05-26-2023 [...] (8 sources) Fever, unspecified Onset: 02-22-2017 Episodic Mycoses (16 sources) Candidiasis of unspecified [...] 09-15-2023 Creatinine [Mass/Vol] 0.68 mg/dL Normal 0.40-1.00 [facility] Comment on above: Result Comment: METH OD TRACEABLE TO IDMS STANDARD Performed By: #### C BCA, CMP, 61735-8, 3016-3, 24181-0, 2132-9 #### [facility] ([id number]) [address], [address] [place] [address] eGFR (CKD-EPI) NON-RACE DEPENDENT >90 Normal >59 [facility] Comment on above: Result Comment: Reported eGFR is based on the CKD-EPI 2020 equation that does not use a race coefficient. Performed By: #### C BCA, [facility], 88065-5, 3016-3, 85787-0, 2132-9 #### [facility] ([id number]) [address], [address] [place] [address] CT CERVICAL SPINE W CONTon 0 09-15-2023 [...] uncomplicated decompressive suboccipital craniectomy. Finalized by Kylah Gould MD on 09/15/2023 1:31 PM Normal [facility] CT LUMBAR SPINE W CONTon CT LUMBAR [...] foraminal narrowing at L5-S1. Finalized by Kylah Gould MD on 09/15/2023 1:26 PM Normal [facility] IR [facility] 2+ [facility] IR MYELOGRAM 2+ REGIONS COMPLETE IR [...] cutaneous antisepsis were utilized throughout this procedure. [place] protocol timeout verification performed. Procedure: The patient [...] cervical spine to follow. Finalized by Kylah Gould MD on 09/15/2023 1:05 PM Normal [facility] PLATELET COUNT AND MPVon Platelet mean volume (Bld) [Entitic vol] 8.0 fL Normal 7-12 [facility] Comment on above: Performed By: #### C TRAVIS, CMP, 22042-8, 3016-3, 87126-1, 2132-9 #### [facility] ([id number]) [address], [address] [place] [address] Platelets (Bld) [#/Vol] 262 10*3/uL Normal 150-450 [facility] Comment on above: Performed By: #### C TRAVIS, CMP, 83286-3, 3016-3, 64060-2, 2131-9 #### [facility] ([id number]) [address], [address] [place] [address] PROTIME AND INRon 09-15-2023 INR Coag (PPP) [Relative time] 1.1 {INR} Normal 0.8-1.1 [facility] Comment on above: Performed By: #### C TRAVIS, GALILEO, 14044-9, 3016-3, 28274-1, 2131-9 #### [facility] ([id number]) [address], [address] [place] [address] PT Coag (PPP) [Time] 12.3 s Normal 9.8-13.2 [facility] Comment on above: Result Comment: NEW REFERENCE RANGE Performed By: #### C TRAVIS, GALILEO, 53967-2, 3016-3, 61370-2, 2131-9 #### [facility] ([id number]) [address], [address] [place] [address] XR SPINE CERVICAL FLEXION/EX TENSION ONLYon 08-29-2023 [...] Norbert Lunsford on 08/29/2023 4:27 PM Normal [facility] Human papilloma virus 16+18+ 31+33+35+39+45+51+52+56+58+59+66+68 DNA [Presence] in [place] 08-15-2023 HPV 16+18+31+33+35+39+45+ 51+52+56+58+59+66+68 DNA Probe+sig amp Ql (Cvx) Negative Negative [facility] Comment on above: This nucleic acid am plification test detects fourteen high- risk HPV types (16,18,31,33,35,39,45,51,52,56,58,59,66,68)without differentiation.Performed at: =G - [facility] [address] [id number] Director: Korin Hernandez MD, Phone: [phone] at: WB - [facility] [address], [place] [id number] Director: Korin Hernandez MD, Phone: [phone] No Panel Informationon 08-14 HPV High Risk Other Comment Note . [facility] Comment on above: TESTS RESULT FLAG UN ITS REF RANGE LAB D IAGNOSIS: 02 NEGATIVE FOR INTRAEPITHELIAL LESION OR MALIGNANCY.Specimen adequacy: 02 Satisfactory for evaluation. Endocervical and/or squamous metaplastic cells (endocervical component) are present.Performed by: Melida Mercedes Spare Person (ASCP). 02Note: Note 02 The Pap smear is a screening test designed to aid in the detection of premalignant and malignant conditions of the uterine cervix. It is not a diagnostic procedure and should not be used as the sole means of detecting cervical cancer. Both false-positive and false-negative reports do occur.Test Methodology: Note 02 This liquid based ThinPrep(R) pap test was screened with the use of an image guided system.HPV Genotype Reflex Note 02 Criteria not met, HPV Genotype not performed. ------ FLAG LEGEND: L-Low Normal,H-High Normal,LL-Alert Low,HH-Alert High <-Panic Low,>-Panic High,A-Abnormal,AA-Critical Abnormal ----Performed at:02 WB [facility] [place] [address] [facility] [place] [address] Korin Hernandez MD, Reference Lab Test Patient Age Note . [facility] Comment on above: TESTS RESULT FLAG UN ITS REF RANGE LAB Clinician Provided Cytology Information Source.............Cervix;Endocervix No. of containers..01 ThinPrep VialAge Chatao JOSEOG Marcia... FLAG LEGEND: L-Low Normal,H-High Normal,LL-Alert Low,HH-Alert High <-Panic Low,>-Panic High,A-Abnormal,AA-Critical Abnormal ----Performed at:01 =G [facility] [place] [address] [place] [address] Korin Hernandez MD, Activated partial thrombopla stin time (aPTT) in platelet poor plasma by coagulation aOrdered By: Nazario Torres on 06-15-2023 aPTT Coag (PPP) [Time] 30.4 s 25.1-36.5 [facility] Comment on above: A hematocrit value g reater than 55% may lead to inaccurate results in coagulation testing. Patients having hematocrit values >55% require a special collection tube for coagulation studies. Please contact the laboratory at [phone] for redraw instructions. Alanine aminotransferase [En zymatic activity/volume] in Serum or PlasmaOrdered By: Nazario Torres on 06-15-2023 ALT [Catalytic activity/Vol] 42 U/L 7-52 [facility] Albumin [Mass/volume] in Ser um or Plasma by Bromocresol green (BCG) dye binding methoOrdered By: Nazario Torres on 06-15-2023 Albumin BCG dye [Mass/Vol] 3.9 g/dL 3.5-5.7 [facility] Alkaline phosphatase [Enzyma tic activity/volume] in Serum or PlasmaOrdered By: Nazario Torres on 06-15-2023 ALP [Catalytic activity/Vol] 115 U/L 34-104 [facility] Ammoniaon 06-15-2023 Ammonia (P) [Moles/Vol] 21 umol/L Normal - [facility] Comment on above: Result Comment: PERF ORMED BY: [facility] [address] [place] [address] PATHOLOGIST HYDRAULIC PLUMBER LAURI PATEL M.D. Performed By: #### A MM, PT, CMP, PTT, HS TROP, CBC, CK ####[facility] [address] [place] [address] [facility] Ammonia [Moles/volume] in Pl asmaOrdered By: Nazario Torres on 06-15-2023 Ammonia (P) [Moles/Vol] 21 umol/L 11- [facility] Amphetamine Screen Ql (U)Ord ered By: Nazario Torres on 06-15-2023 Amphetamines Ql (U) Positive Negative [facility] Aspartate aminotransferase [ Enzymatic activity/volume] in Serum or PlasmaOrdered By: Nazario Torres on 06-15-2023 AST [Catalytic activity/Vol] 32 U/L 13-39 [facility] Automated erythrocytes count in urine sediment (number/area)Ordered By: Nazario Torres on 06-15-2023 RBC Auto (Urine sed) [#/Area] 1-2 [HPF] 0-4 [facility] Automated leukocytes count i n urine sediment (number/area)Ordered By: Nazario Torres on 06-15-2023 WBC Auto (Urine sed) [#/Area] 5-9 [HPF] 0-4 [facility] Barbiturates [Presence] in U rine by Screen methodOrdered By: Nazario Torres on 06-15-2023 Barbiturates Screen Ql (U) Negative Negative [facility] Basophils Auto (Bld) [#/Vol] Ordered By: Nazario Torres on 06-15-2023 Basophils (Bld) [#/Vol] 0.0 10*3/uL 0.0-0.2 [facility] Basophils/100 WBC Auto (Bld) Ordered By: Nazario Torres on 06-15-2023 Basophils/100 WBC (Bld) 0.2 % . [facility] Benzodiazepines Screen Ql (U )Ordered By: Nazario Torres on 06-15-2023 Benzodiazepines Ql (U) Negative Negative [facility] Benzoylecgonine [Presence] i n Urine by Screen methodOrdered By: Nazario Torres on 06-15-2023 Benzoylecgonine Screen Ql (U) Positive Negative [facility] Bilirubin Test strip Ql (U)O rdered By: Nazario Torres on 06-15-2023 Bilirubin Ql (U) Negative Negative [facility] Bilirubin.total [Mass/volume ] in Serum or PlasmaOrdered By: Nazario Torres on 06-15-2023 Bilirubin [Mass/Vol] 0.4 mg/dL 0.3-1.[address] [facility] [address] head/brain wo conon 06-14 CT head/[place] [address] CT Scan Report Signed Patient: Tyrone Lim MR#: [id number] : 1985 Acct:[id number] Age/Sex: 38 / F ADM Date: 06/15/23 [...] Jason Stone M.D.06/15/2023 12:37 PM Dictation Location: [place] [address] Transcribed By: BRAULIO 06/15/23 1237 Dictated By: Jason Stone II, MD 06/15/23 1234 Signed By: 06/15/23 1237 Normal [facility] Calcium [Mass/volume] in Ser um or PlasmaOrdered By: Nazario Torres on 06-15-2023 Calcium [Mass/Vol] 8.3 mg/dL 8.6-10.3 [facility] Cannabinoids [Presence] in U rine by Screen methodOrdered By: Nazario Torres on 06-15-2023 Cannabinoids Screen Ql (U) Positive Negative [facility] Comment on above: These are unconfirme d results and should not be used for legal purposes. Drug Cut-Off Concentration: AMPH 1000 ng/mL CHUYITA 200 ng/mL DINO 200 ng/mL COCM 300 ng/mL OP 300 ng/mL PCP 25 ng/mL THC 20 ng/mL Capillary blood glucose bharath urement by glucometer (mass/volume)Ordered By: Nazario Torres on 06-15-2023 Glucose [Mass/Vol] 105 mg/dL Normal [facility] Comment on above: Random Glucose Refer ence Range is dependent on time and content of last meal. Glucose of more than 200 mg/dL in a nonstressed, ambulatory subject supports the diagnosis of Diabetes Mellitus. Result Comment: [facility] Glucose Reference Range is dependent on time and content of last meal. Glucose of more than 200 mg/dL in a nonstressed, ambulatory subject supports the diagnosis of Diabetes Mellitus. PERFORMED BY: [facility] [address] [place] [address] PATHOLOGIST HYDRAULIC PLUMBER LAURI PATEL M.D. Performed By: #### G CODY ####Point of Care testing, Carbon dioxide, total [Moles /volume] in Serum or PlasmaOrdered By: Nazario Torres on 06-15-2023 CO2 [Moles/Vol] 23.8 mmol/L 21.0-31.0 [facility] Casts typing in urine sedime nt by light microscopyOrdered By: Nazario Torres on 06-15-2023 Casts LM Nom (Urine sed) None seen [LPF] None Seen [facility] Chloride [Moles/volume] in S bennett or PlasmaOrdered By: Nazario Torres on 06-15-2023 Chloride [Moles/Vol] 109 mmol/L 98-107 [facility] Color Auto (U)Ordered By: Rohit Torres on 06-15-2023 Color (U) Yellow Yellow [facility] Complete Blood Count Auto Di ffon 06-15-2023 Basophils (Bld) [#/Vol] 0.0 10*3/uL Normal 0.0-0.2 [facility] Comment on above: Result Comment: PERF ORMED BY: [facility] [address] [place] [address] PATHOLOGIST HYDRAULIC PLUMBER LAURI PATEL M.D. Performed By: #### A MM, PT, CMP, PTT, HS TROP, CBC, CK ####[place] [address] [place] [address] [facility] Basophils/100 WBC (Bld) 0.2 % Normal . [facility] Comment on above: Performed By: #### A MM, PT, CMP, PTT, HS TROP, CBC, CK ####[place] [address] [place] [address] Eosinophils (Bld) [#/Vol] 0.2 10*3/uL Normal 0.0-0.45 [facility] Comment on above: Performed By: #### A MM, PT, CMP, PTT, HS TROP, CBC, CK ####[address] Eosinophils/100 WBC (Bld) 4.2 % Normal . [facility] Comment on above: Performed By: #### A MM, PT, CMP, PTT, HS TROP, CBC, CK ####[address] Erythrocyte distribution width (RBC) [Ratio] 13.9 % Normal 11.9-15.3 [facility] Comment on above: Performed By: #### A MM, PT, CMP, PTT, HS TROP, CBC, CK ####[address] Hematocrit (Bld) [Volume fraction] 34.5 % Normal 34.0-46.4 [facility] Comment on above: Performed By: #### A MM, PT, CMP, PTT, HS TROP, CBC, CK ####[address] Hemoglobin (Bld) [Mass/Vol] 11.6 g/dL Low 11.8-15.4 [facility] Comment on above: Performed By: #### A MM, PT, CMP, PTT, HS TROP, CBC, CK ####[address] Lymphocytes (Bld) [#/Vol] 3.0 10*3/uL Normal 1.00-4.8 [facility] Comment on above: Performed By: #### A MM, PT, CMP, PTT, HS TROP, CBC, CK ####[address] Lymphocytes/100 WBC (Bld) 57.0 % Normal . [facility] Comment on above: Performed By: #### A MM, PT, CMP, PTT, HS TROP, CBC, CK ####[address] MCH (RBC) [Entitic mass] 30.1 pg Normal 24.7-34.3 [facility] Comment on above: Performed By: #### A MM, PT, CMP, PTT, HS TROP, CBC, CK ####[address] MCV (RBC) [Entitic vol] 89.4 fL Normal 80-100 [facility] Comment on above: Performed By: #### A MM, PT, CMP, PTT, HS TROP, CBC, CK ####[address] Mean Corpuscular HGB Conc 33.6 g/dL Normal 32.0-35.0 [facility] Comment on above: Performed By: #### A MM, PT, CMP, PTT, HS TROP, CBC, CK ####[address] Monocytes (Bld) [#/Vol] 0.3 10*3/uL Normal 0.0-0.8 [facility] Comment on above: Performed By: #### A MM, PT, CMP, PTT, HS TROP, CBC, CK ####[address] Monocytes/100 WBC (Bld) 17.73 % Normal 0.00-20.00 [facility] Comment on above: Performed By: #### A MM, PT, CMP, PTT, HS TROP, CBC, CK ####[address] Monocytes/100 WBC (Bld) 6.0 % Normal . [facility] Comment on above: Performed By: #### A MM, PT, CMP, PTT, HS TROP, CBC, CK ####[address] Neutrophils (Bld) [#/Vol] 1.7 10*3/uL Low 1.8-7.7 [facility] Comment on above: Performed By: #### A MM, PT, CMP, PTT, HS TROP, CBC, CK ####[address] Neutrophils/100 WBC (Bld) 32.6 % Normal . [facility] Comment on above: Performed By: #### A MM, PT, CMP, PTT, HS TROP, CBC, CK ####[address] NRBC% 0.1 /100{WBC} Normal 0-0.5 [facility] Comment on above: Performed By: #### A MM, PT, CMP, PTT, HS TROP, CBC, CK ####[address] Platelet mean volume (Bld) [Entitic vol] 8.7 fL Normal 6.3-10.7 [facility] Comment on above: Performed By: #### A MM, PT, CMP, PTT, HS TROP, CBC, CK ####[address] Platelets (Bld) [#/Vol] 196 10*3/uL Normal 150-450 [facility] Comment on above: Performed By: #### A MM, PT, CMP, PTT, HS TROP, CBC, CK ####[address] RBC (Bld) [#/Vol] 3.86 10*6/uL Normal 3.60-5.00 [facility] Comment on above: Performed By: #### A MM, PT, CMP, PTT, HS TROP, CBC, CK ####[address] WBC (Bld) [#/Vol] 5.3 10*3/uL Normal 3.8-11.6 [facility] Comment on above: Performed By: #### A MM, PT, CMP, PTT, HS TROP, CBC, CK ####[address] Comprehensive Metabolic Pane jamel 06-15-2023 Albumin [Mass/Vol] 3.9 g/dL Normal 3.5-5.7 [facility] Comment on above: Performed By: #### A MM, PT, CMP, PTT, HS TROP, CBC, CK ####[address] Albumin/Globulin [Mass ratio] 1.4 {ratio} Normal [facility] Comment on above: Performed By: #### A MM, PT, CMP, PTT, HS TROP, CBC, CK ####[address] ALP [Catalytic activity/Vol] 115 U/L High 34-104 [facility] Comment on above: Performed By: #### A MM, PT, CMP, PTT, HS TROP, CBC, CK ####[address] ALT [Catalytic activity/Vol] 42 U/L Normal 7-52 [facility] Comment on above: Performed By: #### A MM, PT, CMP, PTT, HS TROP, CBC, CK ####[address] Anion gap [Moles/Vol] 10.9 mmol/L Normal 6.0-15.0 [facility] Comment on above: Performed By: #### A MM, PT, CMP, PTT, HS TROP, CBC, CK ####[address] AST [Catalytic activity/Vol] 32 U/L Normal 13-39 [facility] Comment on above: Performed By: #### A MM, PT, CMP, PTT, HS TROP, CBC, CK ####[address] Bilirubin [Mass/Vol] 0.4 mg/dL Normal 0.3-1.0 [facility] Comment on above: Performed By: #### A MM, PT, CMP, PTT, HS TROP, CBC, CK ####[address] Calcium [Mass/Vol] 8.3 mg/dL Low 8.6-10.3 [facility] Comment on above: Performed By: #### A MM, PT, CMP, PTT, HS TROP, CBC, CK ####[place] [address] Chloride [Moles/Vol] 109 mmol/L High 98-107 [facility] Comment on above: Performed By: #### A MM, PT, CMP, PTT, HS TROP, CBC, CK ####[address] CO2 [Moles/Vol] 23.8 mmol/L Normal 21.0-31.0 [facility] Comment on above: Performed By: #### A MM, PT, CMP, PTT, HS TROP, CBC, CK ####[address] Creatinine [Mass/Vol] 0.86 mg/dL Normal 0.60-1.20 [facility] Comment on above: Performed By: #### A MM, PT, CMP, PTT, HS TROP, CBC, CK ####[address] Creatinine Clr Calc Pharmacy 118.81 Normal [facility] Comment on above: Result Comment: PERF ORMED BY: [facility] [address] [place] [address] PATHOLOGIST HYDRAULIC PLUMBER LAURI PATEL M.D. Performed By: #### A MM, PT, CMP, PTT, HS TROP, CBC, CK ####[address] GFR/1.73 sq M.predicted MDRD (S/P/Bld) [Vol rate/Area] mL/min/{1.73_m2} Normal [facility] Comment on above: Performed By: #### A MM, PT, CMP, PTT, HS TROP, CBC, CK ####[address] Globulin (S) [Mass/Vol] 2.7 g/dL Normal [facility] Comment on above: Performed By: #### A MM, PT, CMP, PTT, HS TROP, CBC, CK ####[address] Glucose [Mass/Vol] 107 mg/dL High 70-100 [facility] Comment on above: Result Comment: [facility] Glucose Reference Range is dependent on time and content of last meal. Glucose of more than 200 mg/dL in a nonstressed, ambulatory subject supports the diagnosis of Diabetes Mellitus. ADA recommended reference range Performed By: #### A MM, PT, CMP, PTT, HS TROP, CBC, CK ####[address] Potassium [Moles/Vol] 3.7 mmol/L Normal 3.5-5.1 [facility] Comment on above: Performed By: #### A MM, PT, CMP, PTT, HS TROP, CBC, CK ####[address] Protein [Mass/Vol] 6.6 g/dL Normal 6.4-8.9 [facility] Comment on above: Performed By: #### A MM, PT, CMP, PTT, HS TROP, CBC, CK ####[address] Sodium [Moles/Vol] 140 mmol/L Normal 136-145 [facility] Comment on above: Performed By: #### A MM, PT, CMP, PTT, HS TROP, CBC, CK ####[address] Urea nitrogen [Mass/Vol] 11 mg/dL Normal 7-25 [facility] Comment on above: Performed By: #### A MM, PT, CMP, PTT, HS TROP, CBC, CK ####[address] Creatine Kinaseon 06-15-2023 CK [Catalytic activity/Vol] 68 U/L Normal 30-223 [facility] Comment on above: Performed By: #### A MM, PT, CMP, PTT, HS TROP, CBC, CK ####[facility] [id number] [place] [address] [place] Creatine kinase [Enzymatic a ctivity/volume] in Serum or PlasmaOrdered By: Nazario Torres on 06-15-2023 CK [Catalytic activity/Vol] 68 U/L 30-223 [facility] Creatinine [Mass/volume] in Serum or PlasmaOrdered By: Nazario Torres on 06-15-2023 Creatinine [Mass/Vol] 0.86 mg/dL 0.60-1.20 [facility] Dipstick and Microscopicon 0 06-15-2023 Appearance (U) Clear Normal Clear [facility] Comment on above: Order Comment: Name Collection Type:: Straight Catheter Performed By: #### C UU, ADDONUAPLUS, UHCG #### [facility] [address] [place] [address] [place] Bacteria,Urine None Seen Normal None Seen [facility] Comment on above: Order Comment: Name Collection Type:: Straight Catheter Performed By: #### C UU, ADDONUAPLUS, UHCG #### [facility] [address] [place] [address] [place] Bilirubin,Urine Negative Normal Negative [facility] Comment on above: Order Comment: Name Collection Type:: Straight Catheter Performed By: #### C UU, ADDONUAPLUS, UHCG #### [facility] [address] [place] [id number] [place] Color (U) Yellow Normal Yellow [facility] Comment on above: Order Comment: Name Collection Type:: Straight Catheter Performed By: #### C UU, ADDONUAPLUS, UHCG #### [facility] [address] [place] [id number] [place] Glucose Ql (U) Normal Normal Normal [facility] Comment on above: Order Comment: Name Collection Type:: Straight Catheter Performed By: #### C UU, ADDONUAPLUS, UHCG #### [facility] [address] [place] [id number] [place] Hyaline Casts,Urine 0-8 Normal 0-8 [facility] Comment on above: Order Comment: Name Collection Type:: Straight Catheter Performed By: #### C UU, ADDONUAPLUS, UHCG #### [address] Ketones Ql (U) Negative Normal Negative [facility] Comment on above: Order Comment: Name Collection Type:: Straight Catheter Performed By: #### C UU, ADDONUAPLUS, UHCG #### [address] Leukocyte esterase Test strip Ql (U) 2+ High Negative [facility] Comment on above: Order Comment: Name Collection Type:: Straight Catheter Performed By: #### C UU, ADDONUAPLUS, UHCG #### [place] [address] [place] Nitrite,Urine Negative Normal Negative [facility] Comment on above: Order Comment: Name Collection Type:: Straight Catheter Performed By: #### C UU, ADDONUAPLUS, UHCG #### [address] Occult Blood,Urine Negative Normal Negative The [facility] Comment on above: Order Comment: Name Collection Type:: Straight Catheter Performed By: #### C UU, ADDONUAPLUS, UHCG #### [address] Other Casts,Urine None Seen Normal None Seen [facility] Comment on above: Order Comment: Name Collection Type:: Straight Catheter Performed By: #### C UU, ADDONUAPLUS, UHCG #### [place] [address] [place] pH (U) 7.0 [pH] Normal 5.0-9.0 [facility] Comment on above: Order Comment: Name Collection Type:: Straight Catheter Performed By: #### C UU, ADDONUAPLUS, UHCG #### [place] [address] [place] Protein,Urine Negative Normal Negative [facility] Comment on above: Order Comment: Name Collection Type:: Straight Catheter Performed By: #### C UU, ADDONUAPLUS, UHCG #### [place] [address] [place] RBC,Urine 1-2 Normal 0-4 [facility] Comment on above: Order Comment: Name Collection Type:: Straight Catheter Performed By: #### C UU, ADDONUAPLUS, UHCG #### [place] [address] [place] Renal Epithelial Cells,Urine 1-2 High 0-1 [facility] Comment on above: Order Comment: Name Collection Type:: Straight Catheter Performed By: #### C UU, ADDONUAPLUS, UHCG #### [place] [address] [place] Specificy [place],Urine 1.016 Normal 1.001-1.030 [facility] Comment on above: Order Comment: Name Collection Type:: Straight Catheter Performed By: #### C UU, ADDONUAPLUS, UHCG #### [place] [address] [place] Squamous Epithelial Cell,Urine 5-9 High 0-2 [facility] Comment on above: Order Comment: Name Collection Type:: Straight Catheter Performed By: #### C UU, ADDONUAPLUS, UHCG #### [place] [address] [place] Urobilinogen,Urine Normal Normal Normal [facility] Comment on above: Order Comment: Name Collection Type:: Straight Catheter Performed By: #### C UU, ADDONUAPLUS, UHCG #### [place] [address] [place] WBC,Urine 5-9 High 0-4 [facility] Comment on above: Order Comment: Name Collection Type:: Straight Catheter Performed By: #### C UU, ADDONUAPLUS, UHCG #### [place] [address] [place] Drug Screen,Urineon 06-15-19 24 Amphetamine Screen,Urine Positive High Negative [facility] Comment on above: Performed By: #### U RDS ####[place] [id number] [facility] Barbiturate Screen,Urine Negative Normal Negative [facility] Comment on above: Performed By: #### U RDS ####[address] [address] [facility] Benzodiazepines Screen,Urine Negative Normal Negative [facility] Comment on above: Performed By: #### U RDS ####[place] [id number] [facility] Cannabinoid Screen,Urine Positive High Negative [facility] Comment on above: Result Comment: Thes e are unconfirmed results and should not be used for legal purposes. Drug Cut-Off Concentration: AMPH 1000 ng/mL CHUYITA 200 ng/mL DINO 200 ng/mL COCM 300 ng/mL OP 300 ng/mL PCP 25 ng/mL THC 20 ng/mL PERFORMED BY: [place] [address] PATHOLOGIST HYDRAULIC PLUMBER LAURI PATEL M.D. Performed By: #### U RDS ####[address] Cocaine Screen,Urine Positive High Negative [facility] Comment on above: Performed By: #### U RDS ####[place] [id number] [facility] Opiate Screen,Urine Negative Normal Negative [facility] Comment on above: Performed By: #### U RDS ####[place] [id number] [facility] Phencyclidine Screen,Urine Negative Normal Negative [facility] Comment on above: Performed By: #### U RDS ####[place] [id number] [facility] ECG 12 lead ECGon 06-15-2023 ECG 12 lead ECG [facility] [address] [place] [address] [place] [address] Electrocardiograph Report Signed Patient: Tyrone Lim MR#: [id number] : 1985 Acct:[id number] Age/Sex: 38 / F ADM Date: 06/15/23 Loc: ER Room: Type: [facility] ER Attending Dr: Ordering Provider: Nazario [...] axis deviation Confirmed by Nazario TORRES DO ([id number]) on 06/15/2023 6:38:04 PM Referred By: Electronically Signed By:Nazario TORRES DO Transcribed By: MUS Signed By Nazario Torres DO 0 06/15/23 1838 Normal [facility] ECG 12 lead ECG [facility] [place] [address] Electrocardiograph Report Signed Patient: Tyrone Lim MR#: [id number] : 1985 Acct:[id number] Age/Sex: 38 / F ADM Date: 06/15/23 Loc: ER Room: Type: [facility] ER Attending Dr: Ordering Provider: Nazario [...] Sinus tachycardia Confirmed by Nazario TORRES DO ([id number]) on 06/15/2023 6:34:30 PM Referred By: Electronically Signed By:Nazario TORRES DO Transcribed By: MUS Signed By Nazario Torres DO 0 06/15/23 183 Normal [facility] Eosinophils Auto (Bld) [#/Vo l]Ordered By: Nazario Torres on 06-15-2023 Eosinophils (Bld) [#/Vol] 0.2 10*3/uL 0.0-0.45 [facility] Eosinophils/100 WBC Auto (Bl d)Ordered By: Nazario Torres on 06-15-2023 Eosinophils/100 WBC (Bld) 4.2 % . [facility] Erythrocyte distribution wid th Auto (RBC) [Ratio]Ordered By: Nazario Torres on 06-15-2023 Erythrocyte distribution width (RBC) [Ratio] 13.9 % 11.9-15.3 [facility] Globulin Calc (S) [Mass/Vol] Ordered By: Nazario Torres on 06-15-2023 Globulin (S) [Mass/Vol] 2.7 g/dL [facility] Glucose [Mass/volume] in Ser um or PlasmaOrdered By: Nazario Torres on 06-15-2023 Glucose [Mass/Vol] 107 mg/dL 70-100 [facility] Comment on above: ADA recommended refe rence rangeRandom Glucose Reference Range is dependent on time and content of last meal. Glucose of more than 200 mg/dL in a nonstressed, ambulatory subject supports the diagnosis of Diabetes Mellitus. HCG ( test) IA.rapi d Ql (U)Ordered By: Nazario Torres on 06-15-2023 HCG ( test) Ql (U) Negative [facility] HCG,Urineon 06-15-2023 Beta HCG ( test) Ql (U) Negative Normal [facility] Comment on above: Order Comment: Name Collection Type:: Straight Catheter Result Comment: PERF ORMED BY: [place] [address] PATHOLOGIST HYDRAUL[employer] PLUMBER LAURI PATEL M.D. Performed By: #### C YEHUDA ENCISO [facility] #### [address] Hematocrit Auto (Bld) [Volum e fraction]Ordered By: Nazario Torres on 06-15-2023 Hematocrit (Bld) [Volume fraction] 34.5 % 34.0-46.4 [facility] Hemoglobin [Mass/volume] in BloodOrdered By: Nazario Torres on 06-15-2023 Hemoglobin (Bld) [Mass/Vol] 11.6 g/dL 11.8-15.4 [facility] INR in Platelet poor plasma by Coagulation assayOrdered By: Nazario Torres on 06-15-2023 INR Coag (PPP) [Relative time] 1.1 {INR} [facility] Comment on above: INR Therapeutic Rang [...] on 06-15-2023 Ketones (U) [Mass/Vol] Negative Negative [facility] Laboratory - UrinalysisOrder ed By: Nazario Torres on 06-15-2023 Hyaline casts LM Ql (Urine sed) 0-8 [LPF] 0-8 [facility] Leukocytes [#/volume] correc [place] for nucleated erythrocytes in Blood by Automated counOrdered By: Nazario Torres on 06-15-2023 WBC corrected for nucl RBC Auto (Bld) [#/Vol] 5.3 10*3/uL 3.8-11.6 [facility] Lymphocytes Auto (Bld) [#/Vo l]Ordered By: Nazario Torres on 06-15-2023 Lymphocytes (Bld) [#/Vol] 3.0 10*3/uL 1.00-4.8 [facility] Lymphocytes/100 WBC Auto (Bl d)Ordered By: Nazario Torres on 06-15-2023 Lymphocytes/100 WBC (Bld) 57.0 % . [facility] MCH Auto (RBC) [Entitic mass ]Ordered By: Nazario Torres on 06-15-2023 MCH (RBC) [Entitic mass] 30.1 pg 24.7-34.3 [facility] MCHC Auto (RBC) [Mass/Vol]Or dered By: Nazario Torres on 06-15-2023 MCHC (RBC) [Mass/Vol] 33.6 g/dL 32.0-35.0 [facility] MCV Auto (RBC) [Entitic vol] Ordered By: Nazario Torres on 06-15-2023 MCV (RBC) [Entitic vol] 89.4 fL 80-100 [facility] Monocyte distribution width [Entitic volume] in Blood by AutomatedOrdered By: Nazario Torres on 06-15-2023 Monocyte distribution width Auto (Bld) [Entitic vol] 17.73 % 0.00-20.00 [facility] Monocytes Auto (Bld) [#/Vol] Ordered By: Nazario Torres on 06-15-2023 Monocytes (Bld) [#/Vol] 0.3 10*3/uL 0.0-0.8 [facility] Monocytes/100 WBC Auto (Bld) Ordered By: Nazario Torres on 06-15-2023 Monocytes/100 WBC (Bld) 6.0 % . [facility] Neutrophils Auto (Bld) [#/Vo l]Ordered By: Nazario Torres on 06-15-2023 Neutrophils (Bld) [#/Vol] 1.7 10*3/uL 1.8-7.7 [facility] Neutrophils/100 WBC Auto (Bl d)Ordered By: Nazario Torres on 06-15-2023 Neutrophils/100 WBC (Bld) 32.6 % . [facility] Nitrite Test strip Ql (U)Ord ered By: Nazario Torres on 06-15-2023 Nitrite Ql (U) Negative Negative [facility] No Panel InformationOrdered By: Nazario Torres on 06-15-2023 Blood Gas Critical Value See comment [facility] Comment on above: Critical Value quinteor d on: 06/15/2023 at 13:02 Blood Gas Sample Site Venous Fir [facility] FiO2 21 % [facility] Venous Blood Base Excess -7.8 mmol/L -3.0-3.0 [facility] Venous Blood Oxygen Content 5.8 mmol/L 6.6-9.7 [facility] Venous Blood Oxygen Saturation 84.8 % 73.0-76.0 [facility] Venous Blood Partial Pressure CO2 36.9 mm[Hg] 38.0-50.0 [facility] Venous Blood Partial Pressure O2 53.5 mm[Hg] 35.0-45.0 [facility] Venous Blood pH 7.30 7.32-7.43 [facility] Estimated GFR (CKD-EPI) > 60.0 mL/Min [facility] Pharmacy Creatinine Clearance (Chem 118.81 [facility] Nucleated erythrocytes [Pres ence] in Blood by Automated countOrdered By: Nazario Torres on 06-15-2023 Nucleated RBC Auto Ql (Bld) 0.1 /100{WBC} 0-0.5 [facility] Opiates [Presence] in Urine by Screen methodOrdered By: Nazario Torres on 06-15-2023 Opiates Screen Ql (U) Negative Negative [facility] Partial Thromboplastin Timeo n 06-15-2023 aPTT Coag (Bld) [Time] 30.4 s Normal 25.1-36.5 [facility] Comment on above: Result Comment: A he matocrit value greater than 55% may lead to inaccurate results in coagulation testing. Patients having hematocrit values >55% require a special collection tube for coagulation studies. Please contact the laboratory at [phone] for redraw instructions. PERFORMED BY: [facility] [address] [place] [address] PATHOLOGIST HYDRAULIC PLUMBER LAURI PATEL M.D. Performed By: #### A MM, PT, CMP, PTT, HS TROP, CBC, CK ####[facility] [id number] Phencyclidine Screen Ql (U)O rdered By: Nazario Torres on 06-15-2023 Phencyclidine Ql (U) Negative Negative [facility] Platelet mean volume Auto (B ld) [Entitic vol]Ordered By: Nazario Torres on 06-15-2023 Platelet mean volume (Bld) [Entitic vol] 8.7 fL 6.3-10.7 [facility] Platelets Auto (Bld) [#/Vol] Ordered By: Nazario Torres on 06-15-2023 Platelets (Bld) [#/Vol] 196 10*3/uL 150-450 [facility] Potassium [Moles/volume] in Serum or PlasmaOrdered By: Nazario Torres on 06-15-2023 Potassium [Moles/Vol] 3.7 mmol/L 3.5-5.1 [facility] Protein Auto test strip (U) [Mass/Vol]Ordered By: Nazario Torres on 06-15-2023 Protein (U) [Mass/Vol] Negative Negative [facility] Protein [Mass/volume] in Ser um or PlasmaOrdered By: Nazario Torres on 06-15-2023 Protein [Mass/Vol] 6.6 g/dL 6.4-8.9 [facility] Prothrombin Time INRon 06-14 INR Coag (PPP) [Relative time] 1.1 {INR} Normal [facility] Comment on above: [...] PT, CMP, PTT, HS TROP, CBC, CK ####[facility] PT Coag (PPP) [Time] 13.2 s High 9.0-12.9 [facility] Comment on above: Result Comment: A he matocrit value greater than 55% may lead to inaccurate results in coagulation testing. Patients having hematocrit values >55% require a special collection tube for coagulation studies. Please contact the laboratory at [phone] for redraw instructions. Performed By: #### A MM, PT, CMP, PTT, HS TROP, CBC, CK ####[facility] [place] [id number] [facility] Prothrombin time (PT)Ordered By: Nazario Torres on 06-15-2023 PT Coag (PPP) [Time] 13.2 s 9.0-12.9 [facility] Comment on above: A hematocrit value g reater than 55% may lead to inaccurate results in coagulation testing. Patients having hematocrit values >55% require a special collection tube for coagulation studies. Please contact the laboratory at [phone] for redraw instructions. RBC Auto (Bld) [#/Vol]Ordere d By: Nazario Torres on 06-15-2023 RBC (Bld) [#/Vol] 3.86 10*6/uL 3.60-5.00 [facility] Serum or plasma albumin/glob ulin mass ratioOrdered By: Nazario Torres on 06-15-2023 Albumin/Globulin [Mass ratio] 1.4 {ratio} [facility] Serum or plasma anion gap de terminationOrdered By: Nazario Torres on 06-15-2023 Anion gap [Moles/Vol] 10.9 mmol/L 6.0-15.0 [facility] Sodium [Moles/volume] in Ser um or PlasmaOrdered By: Nazario Torres on 06-15-2023 Sodium [Moles/Vol] 140 mmol/L 136-145 [facility] Specific gravity Auto test s trip (U) [Rel density]Ordered By: Nazario Torres on 06-15-2023 Specific gravity (U) [Rel density] 1.016 1.001-1.030 [facility] Squamous epithelial cells de tection in urine sediment by light microscopyOrdered By: Nazario Torres on 06-15-2023 Epithelial cells.squamous LM Ql (Urine sed) 5-9 [HPF] 0-2 [facility] Troponin I High Sensitivityo n 06-15-2023 Troponin I High Sensitivity < 2.3 Normal 0.0-15.0 [facility] Comment on above: Result Comment: PERF ORMED BY: [facility] [address] [place] [address] PATHOLOGIST HYDRAULIC PLUMBER LAURI PATEL M.D. Performed By: #### A MM, PT, CMP, PTT, HS TROP, CBC, CK ####[facility] Wco[address] [place] [address] [facility] Troponin I.cardiac [Mass/vol ume] in Serum or Plasma by Detection limit <= 0.01 ng/Ordered By: Nazario Torres on 06-15-2023 Troponin I.cardiac DL <= 0.01 ng/mL [Mass/Vol] < 2.3 pg/mL 0.0-15.0 [facility] Urea nitrogen [Mass/volume] in Serum or PlasmaOrdered By: Nazario Torres on 06-15-2023 Urea nitrogen [Mass/Vol] 11 mg/dL 7-25 [facility] Urine Cultureon 06-15-2023 Bacteria identified Cx Nom (U) No Growth 2 Days PERFORMED BY: [place] [address] PATHOLOGIST HYDRAUL[employer] PLUMBER LAURI PATEL M.D. Normal [facility] Comment on above: Performed By: #### C UU, ADDONUAPLUS, CG #### [address] Urine bacteria detection by automated methodOrdered By: Nazario Torres on 06-15-2023 Bacteria Auto Ql (U) None seen None Seen [facility] Urine clarity by refractomet ry automatedOrdered By: Nazario Torres on 06-15-2023 Clarity Refractometry automated (U) Clear Clear [facility] Urine glucose measurement by automated test strip (mass/volume)Ordered By: Nazario Torres on 06-15-2023 Glucose Auto test strip (U) [Mass/Vol] Normal mg/dL Normal [facility] Urine hemoglobin detection b y automated test stripOrdered By: Nazario Torres on 06-15-2023 Hemoglobin Auto test strip Ql (U) Negative Negative [facility] Urine leukocyte esterase det ection by automated test stripOrdered By: Nazario Torres on 06-15-2023 Leukocyte esterase Auto test strip Ql (U) 2+ Negative [facility] Urine sediment renal epithel ial cell count by microscopy (number/high power field)Ordered By: Nazario Torres on 06-15-2023 Epithelial cells.renal LM.HPF (Urine sed) [#/Area] 1-2 [HPF] 0-1 [facility] Urobilinogen Auto test strip (U) [Mass/Vol]Ordered By: Nazario Torres on 06-15-2023 Urobilinogen (U) [Mass/Vol] Normal mg/dL Normal [facility] Venous Blood Gason 4 Respiratory Critical Normal [facility] Comment on above: Result Comment: Crit ical Value called on: 06/15/2023 at 13:02 PERFORMED BY: [address] [address] PATHOLOGIST HYDRAUL[employer] PLUMBER LAURI PATEL M.D. Performed By: #### V BG #### Point of Care testing , VBG Base Excess -7.8 mmol/L Low -3.0-3.0 [facility] Comment on above: Performed By: #### V BG #### Point of Care testing , VBG Draw Site Venous Normal [facility] Comment on above: Performed By: #### V BG #### Point of Care testing , VBG Frac Inspired O2 21 % Normal [facility] Comment on above: Performed By: #### V BG #### Point of Care testing , VBG O2 Content 5.8 mmol/L Low 6.6-9.7 [facility] Comment on above: Performed By: #### V BG #### Point of Care testing , VBG Oxygen Saturation 84.8 % High 73.0-76.0 [facility] Comment on above: Performed By: #### V BG #### Point of Care testing , VBG PCO2 36.9 mm[Hg] Low 38.0-50.0 [facility] Comment on above: Performed By: #### V BG #### Point of Care testing , VBG PH Venous PH 7.30 Low 7.32-7.43 [facility] Comment on above: Performed By: #### V BG #### Point of Care testing , VBG PO2 53.5 mm[Hg] High 35.0-45.0 [facility] Comment on above: Performed By: #### V BG #### Point of Care testing , Venous Blood GasOrdered By: Nazario Torres on 06-15-2023 CO2 [Moles/Vol] 19.0 mmol/L Low 24.0-29.0 [facility] Comment on above: Performed By: #### V BG #### Point of Care testing , HCO3 (Bld) [Moles/Vol] 17.8 mmol/L Low 23.0-29.0 [facility] Comment on above: Performed By: #### V BG #### Point of Care testing , WBC Auto (Bld) [#/Vol]Ordere d By: Nazario Torres on 06-15-2023 WBC (Bld) [#/Vol] 5.3 10*3/uL 3.8-11.6 [facility] XR chest 2V*on 06-15-2023 XR chest 2V* [facility] Main [address] [address] XRay Report Signed Patient: Tyrone Lim MR#: [id number] : 1985 Acct:[id number] Age/Sex: 38 / F ADM Date: 06/15/23 [...] Jason Stone M.D.06/15/2023 12:34 PM Dictation Location: [place] [address] Transcribed By: [facility] 06/15/23 1234 Dictated By: Jason Stone II, MD 06/15/23 1233 Signed By: 06/15/23 1234 Normal [facility] pH Auto test strip (U)Ordere d By: Nazario Torres on 06-15-2023 pH (U) 7.0 [pH] 5.0-9.0 [facility] ACETAMINOPHENon 06-01-2023 Acetaminophen [Mass/Vol] 6.5 ug/mL Low 10.0-30.0 [facility] Comment on above: Result Comment: Refe rence ranges are for therapeutic limits. Performed By: #### C BCA, CMP, 29400-7, 3016-3, 32816-9, 2132-9 #### [facility] ([id number]) [address] [place] [address], [address] [place] [address] CBC AND AUTO DIFFon 06-01-19 24 ABSOLUTE BASOPHIL 0.0 X10E9/L Normal 0.0-0.2 [facility] Comment on above: Performed By: #### C TRAVIS, 24654-3, 48437-4, 5643-2, CMP, 26641- 9, 3298-7, 2157-6, 4024-6, 27437-9, 3040-3 #### [facility] ([id number]) [address] [place] [address] ABSOLUTE NEUTROPHIL 13.2 X10E9/L High 1.5-6.6 [facility] Comment on above: Performed By: #### C TRAVIS, 33354-6, 70618-2, 5643-2, CMP, 88260- 9, 3298-7, 2157-6, 4024-6, 57786-8, 3040-3 #### [facility] ([id number]) [address] [place] [address] Basophils/100 WBC (Bld) 0.1 % Normal [facility] Comment on above: Performed By: #### C TRAVIS, 84311-5, 81611-7, 5643-2, CMP, 03844- 9, 3298-7, 2157-6, 4024-6, 70776-3, 3040-3 #### [facility] ([id number]) [address] [place] [address] Eosinophils (Bld) [#/Vol] 0.0 10*3/uL Normal 0.0-0.4 [facility] Comment on above: Performed By: #### C TRAVIS, 87534-8, 30630-2, 5643-2, CMP, 37432- 9, 3298-7, 2157-6, 4024-6, 66740-8, 3040-3 #### [facility] ([id number]) [address] [place] [address] Eosinophils/100 WBC (Bld) 0.3 % Normal [facility] Comment on above: Performed By: #### C TRAVIS, 03287-0, 97787-2, 5643-2, CMP, 70795- 9, 3298-7, 2157-6, 4024-6, 64410-3, 3040-3 #### [facility] ([id number]) [address] [place] [address] Erythrocyte distribution width (RBC) [Ratio] 14.4 % Normal 11.5-15.0 [facility] Comment on above: Performed By: #### C TRAVIS, 79096-3, 66086-9, 5643-2, CMP, 81912- 9, 3298-7, 2157-6, 4024-6, 00574-0, 3040-3 #### [facility] ([id number]) [address] [place] [address] Hematocrit (Bld) [Volume fraction] 40.1 % Normal 35-47 [facility] Comment on above: Performed By: #### C TRAVIS, 08333-6, 39752-8, 5643-2, CMP, 18421- 9, 3298-7, 2157-6, 4024-6, 26551-8, 3040-3 #### [facility] ([id number]) [address] [place] [address] Hemoglobin (Bld) [Mass/Vol] 13.4 g/dL Normal 11.7-15.5 [facility] Comment on above: Performed By: #### C BCA, 85080-3, 86990-4, 5643-2, CMP, 81652- 9, 3298-7, 2157-6, 4024-6, 33102-0, 3040-3 #### [facility] ([id number]) [address] [place] [address]666 Lymphocytes (Bld) [#/Vol] 1.0 10*3/uL Normal 1.0-3.5 [facility] Comment on above: Performed By: #### C BCA, 76556-3, 47692-5, 5643-2, CMP, 82615- 9, 3298-7, 2157-6, 4024-6, 03888-5, 3040-3 #### [facility] ([id number]) [address] [place] [address] 33766 Lymphocytes/100 WBC (Bld) 6.8 % Normal [facility] Comment on above: Performed By: #### C BCA, 88973-7, 24402-5, 5643-2, CMP, 69742- 9, 3298-7, 2157-6, 4024-6, 46363-2, 3040-3 #### [facility] ([id number]) [address] [place] [address] MCH (RBC) [Entitic mass] 30.5 pg Normal 27-34 [facility] Comment on above: Performed By: #### C BCA, 28894-6, 87961-0, 5643-2, CMP, 11275- 9, 3298-7, 2157-6, 4024-6, 42409-1, 3040-3 #### [facility] ([id number]) [address] [place] [address] [place] [address] MCHC (RBC) [Mass/Vol] 33.5 g/dL Normal 32-36 [facility] Comment on above: Performed By: #### C BCA, 51385-9, 73458-9, 5643-2, CMP, 68663- 9, 3298-7, 2157-6, 4024-6, 06799-3, 3040-3 #### [facility] ([id number]) [address] [place] [address] [place] [address] MCV (RBC) [Entitic vol] 91 fL Normal 80-100 [facility] Comment on above: Performed By: #### C BCA, 22307-7, 69597-2, 5643-2, CMP, 35496- 9, 3298-7, 2157-6, 4024-6, 99283-5, 3040-3 #### [facility] ([id number]) [address] [place] [address]83 Monocytes (Bld) [#/Vol] 0.5 10*3/uL Normal 0-0.9 [facility] Comment on above: Performed By: #### C BCA, 27930-5, 74013-4, 5643-2, CMP, 71221- 9, 3298-7, 2157-6, 4024-6, 33783-2, 3040-3 #### [facility] ([id number]) [address] [place] [address] 78278 Monocytes/100 WBC (Bld) 3.7 % Normal [facility] Comment on above: Performed By: #### C BCA, 34821-1, 96727-3, 5643-2, CMP, 39015- 9, 3298-7, 2157-6, 4024-6, 88638-2, 3040-3 #### [facility] ([id number]) [address] [place] [address] Neutrophils/100 WBC (Bld) 89.1 % Normal [facility] Comment on above: Performed By: #### C BCA, 68485-6, 68835-1, 5643-2, CMP, 46085- 9, 3298-7, 2157-6, 4024-6, 56440-5, 3040-3 #### [facility] ([id number]) [address] [place] [address] Platelet mean volume (Bld) [Entitic vol] 8.3 fL Normal 7-12 [facility] Comment on above: Performed By: #### C BCA, 51312-2, 50916-3, 5643-2, CMP, 68615- 9, 3298-7, 2157-6, 4024-6, 53915-0, 3040-3 #### [facility] ([id number]) [address] [place] [address]78 Platelets (Bld) [#/Vol] 249 10*3/uL Normal 150-450 [facility] Comment on above: Performed By: #### C BCA, 53259-0, 18810-0, 5643-2, CMP, 70704- 9, 3298-7, 2157-6, 4024-6, 66794-3, 3040-3 #### [facility] ([id number]) [address] [place] [address] 63568 RBC COUNT 4.41 X10E12/L Normal 3.80-5.20 [facility] Comment on above: Performed By: #### C BCA, 03052-7, 21609-5, 5643-2, CMP, 34349- 9, 3298-7, 2157-6, 4024-6, 25863-8, 3040-3 #### [facility] ([id number]) [address] [place] [address] 04903 WBC (Bld) [#/Vol] 14.8 10*3/uL High 4.0-11.0 [facility] Comment on above: Performed By: #### C BCA, 17813-9, 20766-3, 5643-2, CMP, 26957- 9, 3298-7, 2157-6, 4024-6, 00767-7, 3040-3 #### [facility] ([id number]) [address] [place] [address]249 CK [Catalytic activity/Vol]o n 06-01-2023 CPK 49 U/L Normal 24-170 [facility] Comment on above: Performed By: #### C BCA, CMP, 85460-9, 3016-3, 46325-3, 2132-9 #### [facility] ([id number]) [address], [address] [place] [address] COMPREHENSIVE METABOLIC PANE Jamel 06-01-2023 Albumin [Mass/Vol] 4.3 g/dL Normal 3.2-5.3 [facility] Comment on above: Performed By: #### C BCA, CMP, 80095-2, 3016-3, 95988-1, 2131-11 #### [facility] ([id number]) [address], [address] [place] [address] ALP [Catalytic activity/Vol] 115 U/L Normal 39-130 [facility] Comment on above: Performed By: #### C BCA, CMP, 06659-4, 3016-3, 98052-1, 2131-11 #### [facility] ([id number]) [address], [address] [place] [address] ALT [Catalytic activity/Vol] 37 U/L High 0-31 [facility] Comment on above: Performed By: #### C BCA, CMP, 36992-4, 3016-3, 09624-1, 2131-11 #### [facility] ([id number]) [address], [address] [place] [address] Anion gap [Moles/Vol] 10 mmol/L Normal 5-15 [facility] Comment on above: Performed By: #### C BCA, CMP, 15430-8, 3016-3, 32258-6, 2131-11 #### [facility] ([id number]) [address], [address] [place] [address] AST [Catalytic activity/Vol] 29 U/L Normal 0-41 [facility] Comment on above: Performed By: #### C BCA, CMP, 19931-4, 3016-3, 06215-1, 2131-11 #### [facility] ([id number]) [address], [address] [place] [address] Bilirubin [Mass/Vol] 0.4 mg/dL Normal 0.3-1.2 [facility] Comment on above: Performed By: #### C BCA, CMP, 57905-4, 3016-3, 07122-4, 2131-11 #### [facility] ([id number]) [address], [address] [place] [address] Calcium [Mass/Vol] 8.8 mg/dL Normal 8.5-10.5 [facility] Comment on above: Performed By: #### C BCA, CMP, 74798-7, 3016-3, 50939-3, 2131-11 #### [facility] ([id number]) [address], [address] [place] [address] Chloride [Moles/Vol] 105 mmol/L Normal 98-109 [facility] Comment on above: Performed By: #### C BCA, CMP, 51332-5, 3016-3, 96148-0, 2131-11 #### [facility] ([id number]) [address], [address] [place] [address] CO2 [Moles/Vol] 22 mmol/L Normal 22-32 [facility] Comment on above: Performed By: #### C BCA, CMP, 20654-7, 3016-3, 55883-3, 2131-11 #### [facility] ([id number]) [address], [address] [place] [address] Creatinine [Mass/Vol] 1.23 mg/dL High 0.40-1.00 [facility] Comment on above: Result Comment: METH OD TRACEABLE TO IDMS STANDARD Performed By: #### C BCA, CMP, 50512-0, 3016-3, 52748-2, 2131-11 #### [facility] ([id number]) [address], [address] [place] [address] GFR/1.73 sq M.predicted among non-blacks MDRD (S/P/Bld) [Vol rate/Area] 58 mL/min/{1.73_m2} Low >59 [facility] Comment on above: Result Comment: Reported eGFR is based on the CKD-EPI 2020 equation that does not use a race coefficient. Performed By: #### C BCA, CMP, 10468-9, 3016-3, 36713-7, 2131-11 #### [facility] ([id number]) [address], [address] [place] [address] Glucose [Mass/Vol] 274 mg/dL High 65-99 [facility] Comment on above: Performed By: #### C BCA, CMP, 68609-8, 3016-3, 95365-8, 2131-11 #### [facility] ([id number]) [address], [address] [place] [address] Potassium [Moles/Vol] 4.8 mmol/L Normal 3.5-5.0 [facility] Comment on above: Performed By: #### C BCA, CMP, 94782-1, 3016-3, 33286-5, 2131-11 #### [facility] ([id number]) [address], [address] [place] [address] Protein [Mass/Vol] 8.3 g/dL High 6.0-8.0 [facility] Comment on above: Performed By: #### C BCA, CMP, 14008-6, 3016-3, 93067-1, 2131-11 #### [facility] ([id number]) [address], [address] [place] [address] Sodium [Moles/Vol] 137 mmol/L Normal 134-146 [facility] Comment on above: Performed By: #### C BCA, CMP, 35963-4, 3016-3, 31702-4, 2131-11 #### [facility] ([id number]) [address], [address] [place] [address] Urea nitrogen [Mass/Vol] 14 mg/dL Normal 5-23 [facility] Comment on above: Performed By: #### C GALILEO ROBLES, 91394-1, 3016-3, 08182-3, 9 #### [facility] ([id number]) [address], [address] [place] [address] CT BRAIN WO CONTon CT BRAIN WO [...] Hathaway MD on 06/01/2023 6:15 AM Normal [facility] ETHANOLon 06-01-2023 Ethanol [Mass/Vol] mg/dL Normal 0.00-0.08 [facility] Comment on above: Result Comment: This report is intended for use in clinical monitoring or management of patients. Performed By: #### C GALILEO ROBLES, 97250-4, 3016-3, 88653-0, 9 #### [facility] ([id number]) [address] [facility] [address] [address], [address] [place] [address] Glucose Glucometer (BldC) [M ass/Vol]on 06-01-2023 Glucose [Mass/Vol] 258 mg/dL High 65-99 [facility] HCG ( test) Brynn hewitt Ql (S)on 06-01-2023 SERUM Negative Normal NEG [facility] Comment on above: Performed By: #### C BCA, CMP, 39358-7, 3016-3, 45407-1, 2131-11 #### [facility] ([id number]) [address], [address] [place] [address] LIPASEon 06-01-2023 Lipase [Catalytic activity/Vol] 36 U/L Normal 17-40 [facility] Comment on above: Performed By: #### C BCA, CMP, 89402-5, 3016-3, 64302-4, 9 #### [facility] ([id number]) [address], [address] [place] [address] Lactate (P rm) [Moles/Vol]o n 06-01-2023 Lactate [Moles/Vol] 1.4 mmol/L Normal 0.4-2.0 [facility] Comment on above: Performed By: #### C BCA, CMP, 46492-4, 3016-3, 83144-1, 9 #### [facility] ([id number]) [address], [address] [place] [address] LACTATE W/REFLEX 3.9 mmol/L High 0.4-2.0 [facility] Comment on above: Performed By: #### C BCA, 37158-4, 79562-0, 5643-2, CMP, 53457- 9, 3298-7, 2157-6, 4024-6, 81506-6, 3040-3 #### [facility] ([id number]) [address] [place] [address], [place] [address] MAGNESIUMon 06-01-2023 Magnesium [Mass/Vol] 2.0 mg/dL Normal 1.8-2.6 [facility] Comment on above: Performed By: #### C TRAVIS CMP, 10318-4, 3016-3, 45991-0, 2131-11 #### [facility] ([id number]) [address], [address] [place] [address] Salicylates [Mass/Vol]on SALICYLATE <4.0 Normal 2.0-25.0 [facility] Comment on above: Result Comment: Refe rence ranges are for therapeutic limits. Performed By: #### C TRAVIS, CMP, 45423-5, 3016-3, 66810-9, 2131-11 #### [facility] ([id number]) [address], [address] [place] [address] TROPONIN Ion 06-01-2023 Troponin I.cardiac [Mass/Vol] 0.01 ng/mL Normal 0.00-0.04 [facility] Comment on above: Performed By: #### C TRAVIS CMP, 73403-7, 3016-3, 12990-4, 2131-11 #### [facility] ([id number]) [address], [address] [place] [address] XR CHEST 1 VWon 06-01-2023 XR CHEST 1 VW XR CHEST 1 VW Clinical history: Aspiration pneumonia Views: 1 Comparison: 08/21/2021 Findings/Impression: 1. No acute infiltrate. No volume loss nor consolidation. There is no pleural effusion, pneumothorax, nor volume loss. Heart and mediastinal structures are unremarkable. Pulmonary vasculature stable. 2. No significant change Finalized by Srikanth Hathaway MD on 06/01/2023 6:06 AM Normal [facility] PAP IG, APT HPV RFX 16/18,45 on 04-14-2023 HPV APTIMA Negative Negative [facility] Comment on above: This nucleic acid am plification test detects fourteen high- risk HPV types (16,18,31,33,35,39,45,51,52,56,58,59,66,68) without differentiation. Performed at: WB - [facility] [address] [id number] [employer] Operator: Korin Hernandez MD, Phone: [phone] Performed at: =G - [facility] [place] [address] [facility], [place] [id number] [employer] Operator: Korin Hernandez MD, Phone: [phone] PAP IG (IMAGE GUIDED) Note . [facility] Comment on above: TESTS RESULT FLAG UN ITS REF RANGE LAB Clinician Provided Cytology Information Source.............Cervix;Endocervix No. of containers..01 ThinPrep Vial DIAGNOSIS: 01 NEGATIVE FOR INTRAEPITHELIAL LESION OR MALIGNANCY. Specimen adequacy: 01 Satisfactory for evaluation. Endocervical and/or squamous metaplastic cells (endocervical component) are present. Performed by: Chata Fernandez, Spare Person ([facility]) . 01 Note: Note 01 The [...] High,A-Abnormal,AA-Critical Abnormal Performed at: 01 WB [facility] [address], [place] [address] Korin Hernandez MD, BRUSH-SPATULA CERVIX ENDOCERVIX [facility] CBC AND AUTO DIFFon 04-11-19 24 ABSOLUTE BASOPHIL 0.0 X10E9/L Normal 0.0-0.2 [facility] Comment on above: Performed By: #### C BCA, CMP, 32722-3, 3016-3, 27317-0, 2131-11 #### [facility] ([id number]) [address], [address] [place] [address] ABSOLUTE NEUTROPHIL 3.8 X10E9/L Normal 1.5-6.6 [facility] Comment on above: Performed By: #### C BCA, CMP, 65333-6, 3016-3, 64951-2, 2131-11 #### [facility] ([id number]) [address], [address] [place] [address] Basophils/100 WBC (Bld) 0.3 % Normal [facility] Comment on above: Performed By: #### C BCA, CMP, 18279-5, 3016-3, 37593-4, 2131-11 #### [facility] ([id number]) [address], [address] [place] [address] Eosinophils (Bld) [#/Vol] 0.2 10*3/uL Normal 0.0-0.4 [facility] Comment on above: Performed By: #### C BCA, CMP, 95799-3, 3016-3, 21174-1, 2131-11 #### [facility] ([id number]) [address], [address] [place] [address] Eosinophils/100 WBC (Bld) 2.9 % Normal [facility] Comment on above: Performed By: #### C BCA, CMP, 03057-5, 3016-3, 20387-5, 2131-11 #### [facility] ([id number]) [address] [place] [address] Erythrocyte distribution width (RBC) [Ratio] 14.1 % Normal 11.5-15.0 [facility] Comment on above: Performed By: #### C BCA, CMP, 97197-8, 3016-3, 02162-7, 2131-11 #### [facility] ([id number]) [address], [facility] [address] [place] [address] Hematocrit (Bld) [Volume fraction] 38.9 % Normal 35-47 [facility] Comment on above: Performed By: #### C BCA, CMP, 02794-3, 3016-3, 77235-1, 2131-11 #### [facility] ([id number]) [address] [place] [address] Hemoglobin (Bld) [Mass/Vol] 13.3 g/dL Normal 11.7-15.5 [facility] Comment on above: Performed By: #### C BCA, CMP, 62714-4, 3016-3, 35554-8, 2131-11 #### [facility] ([id number]) [address], [facility] [address] [place] [address] Lymphocytes (Bld) [#/Vol] 2.7 10*3/uL Normal 1.0-3.5 [facility] Comment on above: Performed By: #### C BCA, CMP, 08731-9, 3016-3, 28112-2, 2131-11 #### [facility] ([id number]) [address] [place] [address] Lymphocytes/100 WBC (Bld) 38.4 % Normal [facility] Comment on above: Performed By: #### C BCA, CMP, 11191-2, 3016-3, 06418-1, 2131-11 #### [facility] ([id number]) [address], [address] [place] [address] MCH (RBC) [Entitic mass] 30.8 pg Normal 27-34 [facility] Comment on above: Performed By: #### C BCA, CMP, 66520-1, 3016-3, 69995-2, 2131-11 #### [facility] ([id number]) [address] [place] [address] MCHC (RBC) [Mass/Vol] 34.2 g/dL Normal 32-36 [facility] Comment on above: Performed By: #### C BCA, CMP, 83137-5, 3016-3, 31308-4, 2131-11 #### [facility] ([id number]) [address], [address] [place] [address] MCV (RBC) [Entitic vol] 90 fL Normal 80-100 [facility] Comment on above: Performed By: #### C BCA, CMP, 04552-1, 3016-3, 29798-6, 2131-11 #### [facility] ([id number]) [address], [address] [place] [address] Monocytes (Bld) [#/Vol] 0.3 10*3/uL Normal 0-0.9 [facility] Comment on above: Performed By: #### C BCA, CMP, 70288-6, 3016-3, 35123-8, 2131-11 #### [facility] ([id number]) [address], [address] [place] [address] Monocytes/100 WBC (Bld) 4.9 % Normal [facility] Comment on above: Performed By: #### C BCA, CMP, 64503-0, 3016-3, 56825-6, 2131-11 #### [facility] ([id number]) [address] [place] [address] Neutrophils/100 WBC (Bld) 53.5 % Normal [facility] Comment on above: Performed By: #### C BCA, CMP, 76516-7, 3016-3, 93892-5, 2131-11 #### [facility] ([id number]) [address] [address] [place] [address] Platelet mean volume (Bld) [Entitic vol] 8.4 fL Normal 7-12 [facility] Comment on above: Performed By: #### C BCA, CMP, 87243-3, 3016-3, 51766-8, 2131-11 #### [facility] ([id number]) [address] [address] [place] [address] Platelets (Bld) [#/Vol] 258 10*3/uL Normal 150-450 [facility] Comment on above: Performed By: #### Sameer ROBLES, CMP, 37215-7, 3016-3, 45033-7, 2131-11 #### [facility] ([id number]) [address] [address] [place] [address] RBC COUNT 4.32 X10E12/L Normal 3.80-5.20 [facility] Comment on above: Performed By: #### Sameer BCA, CMP, 83287-0, 3016-3, 30963-0, 2131-11 #### [facility] ([id number]) [address] [address] WBC (Bld) [#/Vol] 7.1 10*3/uL Normal 4.0-11.0 [facility] Comment on above: Performed By: #### Sameer BCA, CMP, 18626-9, 3016-3, 93511-7, 2131-11 #### [facility] ([id number]) [address] [address] [place] [address] CBC W Auto Differential pane l (Bld)on 04-11-2023 ABSOLUTE BASOPHIL 0.0 [facility] Comment on above: PERFORMED AT [facility] [address],[place] [address] Basophils/100 WBC (Bld) 0.3 % [facility] Eosinophils (Bld) [#/Vol] 0.2 10*3/uL [facility] Eosinophils/100 WBC (Bld) 2.9 % [facility] Erythrocyte distribution width (RBC) [Ratio] 14.1 % 11.5 - 15.0 % [facility] Hematocrit (Bld) [Volume fraction] 38.9 % 35 - 47 % [facility] Hemoglobin (Bld) [Mass/Vol] 13.3 g/dL 11.7 - 15.5 g/dL [facility] Lymphocytes (Bld) [#/Vol] 2.7 10*3/uL [facility] Lymphocytes/100 WBC (Bld) 38.4 % [facility] MCH (RBC) [Entitic mass] 30.8 pg 27 - 34 pg [facility] MCHC (RBC) [Mass/Vol] 34.2 g/dL 32 - 36 g/dL N [facility] MCV (RBC) [Entitic vol] 90 fL 80 - 100 fL [facility] Monocytes (Bld) [#/Vol] 0.3 10*3/uL [facility] Monocytes/100 WBC (Bld) 4.9 % [facility] Neutrophils (Bld) [#/Vol] 3.8 10*3/uL [facility] Neutrophils/100 WBC (Bld) 53.5 % [facility] Platelet mean volume (Bld) [Entitic vol] 8.4 fL 7 - 12 fL [facility] Platelets (Bld) [#/Vol] 258 10*3/uL [facility] RBC (Bld) [#/Vol] 4.32 10*6/uL [facility] WBC corrected for nucl RBC Auto (Bld) [#/Vol] 7.1 [facility] COMPREHENSIVE METABOLIC PANE Jamel 04-11-2023 Albumin [Mass/Vol] 4.3 g/dL Normal 3.2-5.3 [facility] Comment on above: Performed By: #### C BCA, CMP, 55691-1, 3016-3, 62931-4, 213-9 #### [facility] ([id number]) [address] [place] [address] ALP [Catalytic activity/Vol] 70 U/L Normal 39-130 [facility] Comment on above: Performed By: #### C BCA, CMP, 70508-3, 3016-3, 95951-8, 2131-11 #### [facility] ([id number]) [address] [place] [address] ALT [Catalytic activity/Vol] 17 U/L Normal 0-31 [facility] Comment on above: Performed By: #### C BCA, CMP, 00384-9, 3016-3, 01240-0, 2131-11 #### [facility] ([id number]) [address] [place] [address] Anion gap [Moles/Vol] 9 mmol/L Normal 5-15 [facility] Comment on above: Performed By: #### C BCA, CMP, 44780-4, 3016-3, 74828-6, 2131-11 #### [facility] ([id number]) [address], [address] [place] [address] AST [Catalytic activity/Vol] 17 U/L Normal 0-41 [facility] Comment on above: Performed By: #### C BCA, CMP, 13531-3, 3016-3, 23995-0, 2131-11 #### [facility] ([id number]) [address], [address] [place] [address] Bilirubin [Mass/Vol] 0.4 mg/dL Normal 0.3-1.2 [facility] Comment on above: Performed By: #### C BCA, CMP, 16521-5, 3016-3, 90698-7, 2131-11 #### [facility] ([id number]) [address], [address] [place] [address] Calcium [Mass/Vol] 9.2 mg/dL Normal 8.5-10.5 [facility] Comment on above: Performed By: #### C BCA, CMP, 07332-6, 3016-3, 98942-8, 2131-11 #### [facility] ([id number]) [address], [address] [place] [address] Chloride [Moles/Vol] 108 mmol/L Normal 98-109 [facility] Comment on above: Performed By: #### C BCA, CMP, 18686-2, 3016-3, 17601-7, 2131-11 #### [facility] ([id number]) [address], [address] [place] [address] CO2 [Moles/Vol] 26 mmol/L Normal 22-32 [facility] Comment on above: Performed By: #### C BCA, CMP, 52018-0, 3016-3, 31040-5, 2131-11 #### [facility] ([id number]) [address], [address] [place] [address] Creatinine [Mass/Vol] 0.56 mg/dL Normal 0.40-1.00 [facility] Comment on above: Result Comment: METH OD TRACEABLE TO IDMS STANDARD Performed By: #### C BCA, CMP, 64522-7, 3016-3, 74504-6, 2131-11 #### [facility] ([id number]) [address], [address] [place] [address] eGFR (CKD-EPI) NON-RACE DEPENDENT >90 Normal >59 [facility] Comment on above: Result Comment: Reported eGFR is based on the CKD-EPI 2020 equation that does not use a race coefficient. Performed By: #### C BCA, CMP, 26782-4, 3016-3, 04556-5, 2131-11 #### [facility] ([id number]) [address], [address] [place] [address] Glucose [Mass/Vol] 83 mg/dL Normal 65-99 [facility] Comment on above: Performed By: #### C BCA, CMP, 25274-7, 3016-3, 20008-7, 2131-11 #### [facility] ([id number]) [address], [address] [place] [address] Potassium [Moles/Vol] 4.0 mmol/L Normal 3.5-5.0 [facility] Comment on above: Performed By: #### C BCA, CMP, 57193-2, 3016-3, 41224-7, 2131-11 #### [facility] ([id number]) [address], [address] [place] [address] Protein [Mass/Vol] 6.7 g/dL Normal 6.0-8.0 [facility] Comment on above: Performed By: #### C BCA, CMP, 00281-8, 3016-3, 02537-0, 2131-11 #### [facility] ([id number]) [address], [address] [place] [address] Sodium [Moles/Vol] 143 mmol/L Normal 134-146 [facility] Comment on above: Performed By: #### C BCA, CMP, 31854-6, 3016-3, 53558-9, 2131-11 #### [facility] ([id number]) [address], [address] [place] [address] Urea nitrogen [Mass/Vol] 12 mg/dL Normal 5-23 [facility] Comment on above: Performed By: #### C BCA, CMP, 19340-5, 3016-3, 41691-1, 2131-11 #### [facility] ([id number]) [address], [address] [place] [address] HGB A1C (GLYCO-HGB)on 2023 Glucose [Mass/Vol] 105 mg/dL Normal [facility] Comment on above: Performed By: #### C BCA, CMP, 85313-2, 3016-3, 90985-0, 2131-11 #### [facility] ([id number]) [address], [address] [place] [address] HbA1c (Bld) [Mass fraction] 5.3 % Normal 4.4-5.6 [facility] Comment on above: Result Comment: NOTE ADA Guidelines Result HgbA1c Normal : less than 5.7 % Prediabetes : 5.7 % to 6.4 % Diabetes : > 6.4 % Use with caution in patients with abnormal hemoglobin variants as the half-life of red blood cells and in vivo glycation rates are affected. Performed By: #### Sameer ROBLES, CMP, 88328-6, 3016-3, 05588-4, 9 #### [facility] ([id number]) [address] [facility], [address] [place] [address] Lipid 1996 panelon 4 Cholesterol [Mass/Vol] 144 mg/dL Low 150-200 [facility] Comment on above: Performed By: #### Sameer ROBLES, CMP, 62549-8, 3016-3, 31509-1, 2131-11 #### [facility] ([id number]) [address], [address] [place] [address] Cholesterol in HDL [Mass/Vol] 65 mg/dL Normal >39 [facility] Comment on above: Result Comment: HDL <40 mg/dL - High Risk HDL > or = 40mg/dL- Desirable HDL >60 mg/dL - Negative Risk Performed By: #### Sameer BCA, CMP, 16114-1, 3016-3, 96851-3, 2131-11 #### [facility] ([id number]) [address], [facility] [address] [place] [address] Cholesterol in LDL [Mass/Vol] 54 mg/dL Normal <130 [facility] Comment on above: Result Comment: LDL <100 mg/dL - Desirable LDL >160 mg/dL - High Risk Performed By: #### C BCA, CMP, 84619-9, 3016-3, 32265-1, 2131-11 #### [facility] ([id number]) [address], [facility] [address] [place] [address] Cholesterol in VLDL [Mass/Vol] 25 mg/dL Normal 0-30 [facility] Comment on above: Performed By: #### C BCA, CMP, 14182-0, 3016-3, 12298-5, 2131-11 #### [facility] ([id number]) [address], [facility] [address] [place] [address] CHOLESTEROL:HDL 2.2 Normal 1.0-5.0 [facility] Comment on above: Performed By: #### C BCA, CMP, 16468-2, 3016-3, 32856-4, 2131-11 #### [facility] ([id number]) [address] [address] [place] [address] Triglyceride [Mass/Vol] 125 mg/dL Normal 27-150 [facility] Comment on above: Performed By: #### C BCA, CMP, 60641-5, 3016-3, 50174-5, 2131-11 #### [facility] ([id number]) [address] [address] [place] [address] TSH Qnon 04-11-2023 TSH 1.54 uIU/mL Normal 0.49-4.67 [facility] Comment on above: Performed By: #### C BCA, CMP, 52794-6, 3016-3, 26931-7, 2131-11 #### [facility] ([id number]) [address] [facility] [address], [address] [place] [address] VITAMIN B12on 04-11-2023 Cobalamin (Vitamin B12) [Mass/Vol] 510 pg/mL Normal 180-914 [facility] Comment on above: Performed By: #### C TRAVIS GALILEO, 01198-3, 3016-3, 95502-5, 2131-11 #### [facility] ([id number]) [address] [facility], [address] [place] [address] Vitamin D+Metabolites [Mass/ Vol]on 04-11-2023 VITAMIN D 25 HYD TOT 42.1 ng/mL Normal 30-100 [facility] Comment on above: Result Comment: Vitamin D status 25 [place] Vitamin D Deficiency <20 ng/mL Insufficiency 20-29 ng/mL Sufficiency 30-100 ng/mL Toxicity >100 ng/mL NOTE: A pediatric reference range has not been established by the silk screen operator of this kit. The [place] [employer] recommends a Vitamin D level of = or >20ng/mL in infants and children. Performed By: #### C GALILEO ROBLES, 52760-4, 3016-3, 77295-1, 9 #### [facility] ([id number]) [address] [facility], [address] [place] [address] XR pre/post mri xrayon 02-23 XR pre/post mri xray [facility] [place] [address] MRI Report Signed Patient: Tyrone Lim MR#: [id number] : 1985 Acct:[id number] Age/Sex: 38 / F ADM Date: 02/23/23 Loc: MR Room: Type: [facility] Attending Dr: Johana HUTCHINSON Copies to: EVANGELINA Israel Ordering Provider: EVANGELINA Israel Date of Service: 02/23/23 MR/MR lumbar spine wo/w con: Z98.1 ([id number]) XR/XR pre/post mri xray: Z98.1 MR lumbar [...] Jason Stone M.D.02/23/2023 5:57 PM Dictation Location: [facility]--13 Transcribed By: BRAULIO 02/23/231756 Dictated By: Jason Stone II, MD 02/23/231743 Signed By: 02/23/231756 Normal [facility] Hep C RT-PCR, Qnt (Non-Graph )on 12-13-2022 Hepatitis C Quantitation Not detected Normal . [facility] Comment on above: Order Comment: Reaso n for Exam Hepatitis C Performed By: #### H CV RNAQNT ####[facility] , Test Information: Normal . [facility] Comment on above: Order Comment: Reaso n for Exam Hepatitis C Result Comment: The quantitative range of this assay is 15 IU/mL to 100 million IU/mL. Performed at: [facility] [employer] [id number] [employer] Operator: Augusto Lowry MD, Phone: [phone] PERFORMED BY: [address] [address] PATHOLOGIST HYDRAULIC PLUMBER LAURI PATEL M.D. Performed By: #### H CV RNAQNT ####[facility] , Hepatitis C virus RNA [log u nits/volume] (viral load) in Serum or Plasma by BETITO withOrdered By: Ladarius Pitts on 12-13-2022 HCV RNA BETITO+probe [Log units/Vol] Not detected . [facility] No Panel InformationOrdered By: Ladarius Pitts on 12-13-2022 Hepatitis C RNA (PCR) Interpret See comment . [facility] Comment on above: The quantitative ran ge of this assay is 15 IU/mL to 100million IU/mL.Performed at: [address] [id number] Director: Augusto Lowry MD, Phone: [phone] Aerobic Cultureon 09-22-2022 Aerobic Culture ORGANISM: Abhay Benedict Staph Aureus (O:MRSA) Quantity of Growth Heavy [...] RESISTANT TO ALL B-LACTAM DRUGS. PERFORMED BY: [place] [address] PATHOLOGIST HYDRAULIC PLUMBER LAURI PATEL M.D. Normal [facility] Comment on above: Performed By: #### A [facility], #### [address] Anaerobic cultureOrdered By: Berenice Haile on 09-22-2022 Bacteria identified Anaer cx Nom (Unsp spec) No Anaerobes Isolated 3 Days [facility] Bacteria identified Aer cx N om (Unsp spec)Ordered By: Berenice Haile on 09-22-2022 Aerobic Culture Methicillin Resis St aph Aureus [facility] Gram Stainon 09-22-2022 Microscopic observation Gram stain Nom (Unsp spec) Gram Stain Result 2+ Gram Positive Cocci 1+ White Blood Cells PERFORMED BY: [place] [address] PATHOLOGIST HYDRAULIC PLUMBER LAURI PATEL M.D. Normal [facility] Comment on above: Performed By: #### A GRETTA, GS #### [address] Gram stain for investigation of transfusion reactionOrdered By: Berenice Haile on 09-22-2022 Microscopic observation Gram stain Nom (Unsp spec) [facility] PAP ACOG PANEL 2: 30 to 65on 06-02-2022 . . Normal [facility] Comment on above: Result Comment: Perf ormed at: WB Performed By: #### V B12LC #### [facility] [address] [address] [address] Drew Castle Age Gdln ACOG Testing 30-65 Normal [facility] Comment on above: Performed By: #### V B12LC #### [facility] [address] [address] [address] Drew Castle DIAGNOSIS: Comment Abnormal [facility] Comment on above: Result Comment: EPIT HELIAL CELL ABNORMALITY. LOW GRADE SQUAMOUS INTRAEPITHELIAL LESION (LSIL). FUNGAL ORGANISMS MORPHOLOGICALLY CONSISTENT WITH CANDICE SPECIES ARE PRESENT. Performed at: WB Performed By: #### V B12LC #### [facility] [address] [address] [address] Drew Castle Electronically signed by: Comment Normal [facility] Comment on above: Result Comment: Liz Bryant MD, Pathologist Performed at: WB Performed By: #### V B12LC #### [facility] [address] [address] [address] Drew Castle HPV Aptima Negative Normal Negative [facility] Comment on above: Result Comment: This nucleic acid amplification test detects fourteen high-risk HPV types (16,18,31,33,35,39,45,51,52,56,58,59,66,68) without differentiation. Performed at: =G Performed By: #### V B12LC #### [facility] [address] [address] [address] Drew Castle HPV Genotype Reflex Comment Normal [facility] Comment on above: Result Comment: Crit eria not met, HPV Genotype not performed. Performed at: WB Performed By: #### V B12LC #### [facility] [address] [place] [address] Dr. Drew Castle Methodology: Comment Normal [facility] Comment on above: Result Comment: This liquid based ThinPrep(R) pap test was screened with the use of an image guided system. Performed at: WB Performed By: #### V B12LC #### [facility] [address] [place] [address] Dr. Drew Castle Note: Comment Normal [facility] Comment on above: Result Comment: The Pap smear is a screening test designed to aid in the detection of premalignant and malignant conditions of the uterine cervix. It is not a diagnostic procedure and should not be used as the sole means of detecting cervical cancer. Both false-positive and false-negative reports do occur. . Performed at: WB Performed By: #### V B12LC #### [facility] [address] [place] [address] Dr. Drew Castle Pathologist Provided ICD10 Comment Normal [facility] Comment on above: Result Comment: R87. 612, R87.5 Performed at: WB Performed By: #### V B12LC #### [facility] [address] [place] [address] Dr. Drew Castle Performed by: Comment Normal [facility] Comment on above: Result Comment: Carley Irvin, Spare Person (ASCP) Performed at: WB Performed By: #### V B12LC #### [facility] [address] [place] [address] Dr. Drew Castle Specimen adequacy: Comment Normal [facility] Comment on above: Result Comment: Sati sfactory for evaluation. Endocervical and/or squamous metaplastic cells (endocervical component) are present. Performed at: WB Performed By: #### V B12LC #### [facility] [address] [place] [address] Dr. Drew Castle VAGINITIS/VAGINOSIS DNA PROB Garry 05-26-2022 Candice species Positive Abnormal Negative [facility] Comment on above: Performed By: #### V B12LC #### [facility] [address] [place] [address] Dr. Drew Castle Gardnerella vaginalis Positive Abnormal Negative [facility] Comment on above: Performed By: #### V B12LC #### [facility] [address] [place] [address] Dr. Drew Castle Trichomonas vaginalis Negative Normal Negative [facility] Comment on above: Performed By: #### V B12LC #### [facility] [address] [place] [address] Dr. Drew Castle CULTURE WOUNDon 01-21-2022 CULTURE WOUND Culture Observations : No growth of aerobes at 48 hours. Culture Observations: No growth of anaerobes at 72 hours. Normal [facility] Comment on above: Performed By: #### W OUNDCX #### [facility] [address] [place] [address] Dr. Drew Castle VITAMIN B12on 08-08-2021 Cobalamin (Vitamin B12) [Mass/Vol] 1189 pg/mL Normal 232-1245 [facility] Comment on above: Performed By: #### V B12LC #### [facility] [address] [place] [address] Dr. Drew Castle CBC AUTO DIFFon 08-06-2021 BASO # 0.0 103/ul Normal 0.0-0.1 [facility] Comment on above: Performed By: #### V B12LC #### [facility] [address] [place] [address] Dr. Drew Castle Basophils/100 WBC (Bld) 0.4 % Normal 0.2-2.0 [facility] Comment on above: Performed By: #### V B12LC #### [facility] [address] [place] [address] Dr. Drew Castle EO # 0.3 103/ul Normal 0.0-0.7 [facility] Comment on above: Performed By: #### V B12LC #### [facility] [address] [place] [address] Dr. Drew Castle Eosinophils/100 WBC (Bld) 6.7 % Normal 0.9-7.0 [facility] Comment on above: Performed By: #### V B12LC #### [facility] [address] [place] [address] Dr. Drew Castle Erythrocyte distribution width (RBC) [Ratio] 13.8 % Normal 11.0-15.0 [facility] Comment on above: Performed By: #### V B12LC #### [facility] [address] [place] [address] Dr. rDew Castle Hematocrit (Bld) [Volume fraction] 37.3 % Normal 36.0-48.0 [facility] Comment on above: Performed By: #### V B12LC #### [facility] [address] [place] [address] Dr. Drew Castle Hemoglobin (Bld) [Mass/Vol] 12.0 g/dL Normal 12.0-16.0 [facility] Comment on above: Performed By: #### V B12LC #### [facility] [address] [place] [address] Dr. Drew Castle IG # 0.01 10e3/ul Normal 0.00-0.03 [facility] Comment on above: Performed By: #### V B12LC #### [facility] [address] [place] [address] Dr. Drew Castle IG % 0.2 % Normal 0.0-0.5 [facility] Comment on above: Performed By: #### V B12LC #### [facility] [address] [place] [address] Dr. Drew Castle LYMPH # 2.7 103/ul Normal 1.2-3.8 [facility] Comment on above: Performed By: #### V B12LC #### [facility] [address] [place] [address] Dr. Drew Castle Lymphocytes/100 WBC (Bld) 59.4 % Normal 20.5-60.0 [facility] Comment on above: Performed By: #### V B12LC #### [facility] [address] [place], [place] [address] Dr. Drew Castle MANUAL DIFF REQ NO Normal [facility] Comment on above: Performed By: #### V B12LC #### [facility] [address] [place] [address] Dr. Drew Castle MCH (RBC) [Entitic mass] 30.6 pg Normal 26.7-34.0 [facility] Comment on above: Performed By: #### V B12LC #### [facility] [address] [place] [address] Dr. Drew Castle MCHC (RBC) [Mass/Vol] 32.2 g/dL Normal 29.9-35.2 [facility] Comment on above: Performed By: #### V B12LC #### [facility] [address] [place] [address] Dr. Drew Castle MCV (RBC) [Entitic vol] 95.2 fL Normal 81.0-99.0 [facility] Comment on above: Performed By: #### V B12LC #### [facility] [address] [place] [address] Dr. Drew Castle MONO # 0.4 103/ul Normal 0.3-0.8 [facility] Comment on above: Performed By: #### V B12LC #### [facility] [address] [place] [address] Dr. Drew Castle Monocytes/100 WBC (Bld) 8.5 % Normal 1.7-12.0 [facility] Comment on above: Performed By: #### V B12LC #### [facility] [address] [place] [address] Dr. Drew Castle NEUT # 1.1 103/ul Critically low 1.4-6.5 [facility] Comment on above: Performed By: #### V B12LC #### [facility] [address] [place] [address] Dr. Drew Castle Neutrophils/100 WBC (Bld) 24.8 % Critically low 43.0-75.0 [facility] Comment on above: Performed By: #### V B12LC #### [facility] [address] [place], [place] [address] Dr. Drew Castle Platelet mean volume (Bld) [Entitic vol] 11.9 fL Normal 9.5-13.5 [facility] Comment on above: Performed By: #### V B12LC #### [facility] [address] [place] [address] Dr. Drew Castle PLT 212 103/ul Normal 150-450 [facility] Comment on above: Performed By: #### V B12LC #### [facility] [address] [address] [address] Drew Castle RBC 3.92 106/ul Critically low 4.20-5.40 [facility] Comment on above: Performed By: #### V B12LC #### [facility] [address] [place] [address] Dr. Drew Castle WBC 4.6 103/ul Normal 4.0-11.0 [facility] Comment on above: Performed By: #### V B12LC #### [facility] [address] [place] [address] Dr. Drew Castle FERRITINon 08-06-2021 Ferritin [Mass/Vol] 24.0 ng/mL Normal 6.2-137.0 [facility] Comment on above: Performed By: #### I GAVINO BARRY FERR, FT4 #### [facility] [address] [place] [address] Dr. Drew Castle FREE T4on 08-06-2021 Free T4 [Mass/Vol] 0.79 ng/dL Normal 0.76-1.46 [facility] Comment on above: Performed By: #### I GAVINO BARRY FERR, FT4 #### [facility] [address] [place] [address] Dr. Drew Castle GLYCOHEMOGLOBIN A1Con 2021 ADA RECOMMENDATION SEE BELOW Normal [facility] Comment on above: Result Comment: ADA RECOMMENDED LIMIT 4.0 - 6.0 ADA THERAPEUTIC TARGET < 7.0 ACTION SUGGESTED > 7.0 Performed By: #### A 1C #### [facility] [address] [place] [address] Dr. Drew Castle Glucose [Mass/Vol] 111 mg/dL Normal [facility] Comment on above: Performed By: #### A 1C #### [facility] [address] [address] [address] Drew Castle HbA1c (Bld) [Mass fraction] 5.5 % Normal 4.5-6.2 [facility] Comment on above: Performed By: #### A 1C #### [facility] [address] [address] [address] Drew Castle IRONon 08-06-2021 Iron [Mass/Vol] 76.0 ug/dL Normal 50.0-170.0 [facility] Comment on above: Performed By: #### I ASHA, GAVINO, FERR, FT4 #### [facility] [address] [place] [address] Dr. Drew Castle LIPID PROFILEon 08-06-2021 CHOL-HDL RATIO NORM SEE BELOW Normal [facility] Comment on above: Result Comment: 3.3 - 4.4 LOW RISK 4.4 - 7.1 AVERAGE RISK 7.1 - 11.0 MODERATE RISK >11.0 HIGH RISK Performed By: #### C MP, LIPID, TSH #### [facility] [address] [place] [address] Dr. Drew Castle Cholesterol [Mass/Vol] 150 mg/dL Normal <=200 [facility] Comment on above: Performed By: #### C MP, LIPID, TSH #### [facility] [address] [address] [address] Drew Castle Cholesterol in HDL [Mass/Vol] 59 mg/dL Normal 40-60 [facility] Comment on above: Performed By: #### C MP, LIPID, TSH #### [facility] [address] [address] [address] Drew Castle Cholesterol in LDL [Mass/Vol] 63.4 mg/dL Normal [facility] Comment on above: Performed By: #### C MP, LIPID, TSH #### [facility] [address] [address] [address] Drew Castle Cholesterol.total/Cho lesterol in HDL [Mass ratio] 2.5 {ratio} Normal [facility] Comment on above: Performed By: #### C MP, LIPID, TSH #### [facility] [address] [address] [address] Drew Castle HDL NORMAL > or = 60 mg/dl - LO W CARDIOVASCULAR RISK <40 mg/dl - HIGH CARDIOVASCULAR RISK Normal [facility] Comment on above: Performed By: #### C MP, LIPID, TSH #### [facility] [address] [address] [address] Drew Castle LDL CALC NORMAL SEE BELOW Normal [facility] Comment on above: Result Comment: <100 mg/dl OPTIMAL 100 - 129 mg/dl NEAR OR ABOVE OPTIMAL 130 - 159 mg/dl BORDERLINE HIGH 160 - 189 mg/dl HIGH >190 mg/dl VERY HIGH Performed By: #### C MP, LIPID, TSH #### [facility] [address] [address] [address] Drew Castle Triglyceride [Mass/Vol] 138 mg/dL Normal <=150 [facility] Comment on above: Performed By: #### C MP, LIPID, TSH #### [facility] [address] [address] [address] Drew Castle VLDL CALC 27.6 mg/dL Normal [facility] Comment on above: Performed By: #### C MP, LIPID, TSH #### [facility] [address] [address] [address] Drew Castle PROF 14(COMP METB)on 022 Albumin [Mass/Vol] 3.5 g/dL Normal 3.4-5.0 [facility] Comment on above: Performed By: #### C MP, LIPID, TSH #### [facility] [address] [address] [address] Drew Castle Albumin/Globulin [Mass ratio] 1.1 {ratio} Normal [facility] Comment on above: Performed By: #### C MP, LIPID, TSH #### [facility] [address] [address] [address] Drew Castle ALP [Catalytic activity/Vol] 61 U/L Normal 46-116 [facility] Comment on above: Performed By: #### C MP, LIPID, TSH #### [facility] [address] [address] [address] Drew Castle ALT [Catalytic activity/Vol] 29 U/L Normal 14-59 [facility] Comment on above: Performed By: #### C MP, LIPID, TSH #### [facility] [address] [address] [address] Drew Castle Anion gap [Moles/Vol] 13.9 mmol/L Normal [facility] Comment on above: Performed By: #### C MP, LIPID, TSH #### [facility] [address] [address] [address] Drew Castle AST [Catalytic activity/Vol] 22 U/L Normal 15-37 [facility] Comment on above: Performed By: #### C MP, LIPID, TSH #### [facility] [address] [address] [address] Drew Castle Bilirubin [Mass/Vol] 0.4 mg/dL Normal 0.2-1.0 [facility] Comment on above: Performed By: #### C MP, LIPID, TSH #### [facility] [address] [address] [address] Drew Castle Calcium [Mass/Vol] 8.7 mg/dL Normal 8.5-10.1 [facility] Comment on above: Performed By: #### C MP, LIPID, TSH #### [facility] [address] [address] [address] Drew Castle Chloride [Moles/Vol] 107 mmol/L Normal 98-107 [facility] Comment on above: Performed By: #### C MP, LIPID, TSH #### [facility] [address] [address] [address] Drew Castle CO2 [Moles/Vol] 24.9 mmol/L Normal 21.0-32.0 [facility] Comment on above: Performed By: #### C MP, LIPID, TSH #### [facility] [address] [address] [address] Drew Castle Creatinine [Mass/Vol] 0.76 mg/dL Normal 0.55-1.02 [facility] Comment on above: Performed By: #### C MP, LIPID, TSH #### [facility] [address] [place] [address] Dr. Drew Castle EGFR-AF THAI >60 Normal >=60 [facility] Comment on above: Performed By: #### C MP, LIPID, TSH #### [facility] [address] [place] [address] Dr. Drew Castle EGFR-NON AF THAI >60 Normal >=60 [facility] Comment on above: Performed By: #### C MP, LIPID, TSH #### [facility] [address] [place] [address] Dr. Drew Castle Globulin (S) [Mass/Vol] 3.1 g/dL Normal [facility] Comment on above: Performed By: #### C MP, LIPID, TSH #### [facility] [address] [place] [address] Dr. Drew Castle Glucose [Mass/Vol] 95 mg/dL Normal 74-106 [facility] Comment on above: Performed By: #### C MP, LIPID, TSH #### [facility] [address] [place] [address] Dr. Drew Castle Potassium [Moles/Vol] 3.8 mmol/L Normal 3.5-5.1 [facility] Comment on above: Performed By: #### C MP, LIPID, TSH #### [facility] [address] [place] [address] Dr. Drew Castle Protein [Mass/Vol] 6.6 g/dL Normal 6.4-8.2 [facility] Comment on above: Performed By: #### C MP, LIPID, TSH #### [facility] [address] [place] [address] Dr. Drew Castle Sodium [Moles/Vol] 142 mmol/L Normal 136-145 [facility] Comment on above: Performed By: #### C MP, LIPID, TSH #### [facility] [address] [place] [address] Dr. Drew Castle Urea nitrogen [Mass/Vol] 16.0 mg/dL Normal 7.0-18.0 [facility] Comment on above: Performed By: #### C MP, LIPID, TSH #### [facility] [address] [place] [address] Dr. Drew Castle Urea nitrogen/Creatinine [Mass ratio] 21.1 mg/mg Normal The [facility] Comment on above: Performed By: #### C MP, LIPID, TSH #### [facility] [address] [place] [address] Dr. Drew Castle TSHon 08-06-2021 TSH 2.421 uIU/mL Normal 0.358-3.740 [facility] Comment on above: Performed By: #### C MP, LIPID, TSH #### [facility] [address] [place] [address] Dr. Drew Castle TSH RANGE SEE BELOW Normal The [facility] Comment on above: Result Comment: <0.3 4 UIU/ml HYPERTHYROID 0.34-5.60 UIU/ml EUTHYROID >5.60 UIU/ml HYPOTHYROID Performed By: #### C MP, LIPID, TSH #### [facility] [address] [place] [address] Dr. Drew Castle UA RANDOM W/MICROSCOPICon BACTERIA NONE SEEN Normal NONE SEEN [facility] Comment on above: Performed By: #### V B12LC #### [facility] [address] [place] [address] Dr. Drew Castle Bilirubin Ql (U) SMALL Abnormal NEGATIVE [facility] Comment on above: Performed By: #### V B12LC #### [facility] [address] [place] [address] Dr. Drew Castle CAST NONE SEEN Normal NONE SEEN The [facility] Comment on above: Performed By: #### V B12LC #### [facility] [address] [place] [address] Dr. Drew Castle Clarity (U) CLOUDY Abnormal CLEAR The [facility] Comment on above: Performed By: #### V B12LC #### [facility] [address] [place] [address] Dr. Drew Castle Color (U) DK. YELLOW Normal YELLOW The [facility] Comment on above: Performed By: #### V B12LC #### [facility] [address] [place] [address] Dr. Drew Castle Crystals LM Nom (Urine sed) NONE SEEN Normal NONE SEEN [facility] Comment on above: Performed By: #### V B12LC #### [facility] [address] [place] [address] Dr. Drew Castle Epithelial cells LM Ql (Urine sed) RARE Normal NONE SEEN /RARE The [facility] Comment on above: Performed By: #### V B12LC #### [facility] [address] [place] [address] Dr. Drew Castle Glucose Ql (U) Negative Normal NEGATIVE [facility] Comment on above: Performed By: #### V B12LC #### [facility] [address] [place] [address] Dr. Drew Castle Hemoglobin Ql (U) Negative Normal NEGATIVE [facility] Comment on above: Performed By: #### V B12LC #### [facility] [address] [place] [address] Dr. Drew Castle Ketones Ql (U) Negative Normal NEGATIVE [facility] Comment on above: Performed By: #### V B12LC #### [facility] [address] [place] [address] Dr. Drew Castle LEUKOCYTES Negative Normal NEGATIVE [facility] Comment on above: Performed By: #### V B12LC #### [facility] [address] [place] [address] Dr. Drew Castle MUCOUS NONE SEEN Normal NONE SEEN [facility] Comment on above: Performed By: #### V B12LC #### [facility] [address] [place] [address] Dr. Drew Castle Nitrite Ql (U) Negative Normal NEGATIVE [facility] Comment on above: Performed By: #### V B12LC #### [facility] [address] [place] [address] Dr. Drew Castle pH (U) 6.5 [pH] Normal 5-9 [facility] Comment on above: Performed By: #### V B12LC #### [facility] [address] [place] [address] Dr. Drew Castle RBC NONE SEEN Abnormal 0-2 [facility] Comment on above: Performed By: #### V B12LC #### [facility] [address] [place] [address] Dr. Drew aCstle SPEC GRAVITY 1.025 Normal 1.005-<=1.02 5 The [facility] Comment on above: Performed By: #### V B12LC #### [facility] [address] [place] [address] Dr. Drew Castle UA PROTEIN TRACE Normal NEGATIVE/ TRACE [facility] Comment on above: Performed By: #### V B12LC #### [facility] [address] [place] [address] Dr. Drew Castle Urobilinogen Qn (U) 1.0 {Jeff'U}/dL Normal 0.2 - 1. 0 [facility] Comment on above: Performed By: #### V B12LC #### [facility] [address] [place] [address] Dr. Drew Castle WBC NONE SEEN Normal NONE SEEN The [facility] Comment on above: Performed By: #### V B12LC #### [facility] [address] [place] [address] Dr. Drwe Castle VITAMIN D 25 OHon 08-06-2021 VIT D 25-OH 45.7 ng/mL Normal The [facility] Comment on above: Performed By: #### I ASHA, VITAD, FERR, FT4 #### [facility] [address] [place] [address] Dr. Drew Castle VIT D RANGES SEE BELOW Normal The [facility] Comment on above: Result Comment: <20 ng/mL Vit D deficient 20 - <30 ng/mL Vit D insufficient 30 - 100 ng/mL Vit D sufficient >100 ng/mL Potential Toxicity Performed By: #### I ASHA, VITAD, FERR, FT4 #### [facility] [address] [place] [address] Dr. Drew Castle Complete Blood Count Auto Di ffon 03-03-2021 Basophils (Bld) [#/Vol] 0.0 10*3/uL 0.0-0.2 [employer] Other Basophils/100 WBC (Bld) 0.2 % . [employer] Other Eosinophils (Bld) [#/Vol] 0.2 10*3/uL 0.0-0.45 [employer] Other Eosinophils/100 WBC (Bld) 2.4 % . [employer] Other Erythrocyte distribution width (RBC) [Ratio] 14.0 % 11.9-15.3 [employer] Other Hematocrit (Bld) [Volume fraction] 39.2 % 34.0-46.4 [employer] Other Hemoglobin (Bld) [Mass/Vol] 13.6 g/dL 11.8-15.4 [employer] Other Lymphocytes (Bld) [#/Vol] 2.3 10*3/uL 1.00-4.8 [employer] Other Lymphocytes/100 WBC (Bld) 31.0 % . [employer] Other MCH (RBC) [Entitic mass] 31.3 pg 24.7-34.3 [employer] Other MCH (RBC) [Entitic mass] 34.6 pg 32.0-35.0 [employer] Other MCV (RBC) [Entitic vol] 90.4 fL 80-100 [employer] Other Monocytes (Bld) [#/Vol] 0.3 10*3/uL 0.0-0.8 [employer] Other Monocytes/100 WBC (Bld) 4.7 % . [employer] Other Neutrophils (Bld) [#/Vol] 4.5 10*3/uL 1.8-7.7 [employer] Other Neutrophils/100 WBC (Bld) 61.7 % . [employer] Other Platelet mean volume (Bld) [Entitic vol] 8.3 fL 6.3-10.7 [employer] Other Platelets (Bld) [#/Vol] 232 10*3/uL 150-450 [employer] Other RBC (Bld) [#/Vol] 4.34 10*6/uL 3.60-5.00 [employer] Other WBC (Bld) [#/Vol] 7.3 10*3/uL 3.8-11.6 [employer] Other Complete Blood Count Auto Diff 7.3 4.5-11.0 [employer] Other Complete Blood Count Auto Diff 0.2 0-0.5 [employer] Other Prothrombin Time INRon 03-03 INR Coag (PPP) [Relative time] 1.2 {INR} [employer] Other PT Coag (PPP) [Time] 13.3 s 9.0-12.9 Nort [employer] Other Acetaminophen levelOrdered B y: Sai Hernandez on 12-27-2020 Acetaminophen Level <5 Low 10 - 30 ug/mL [employer] [facility] Phone: Interpretation and review of laboratory results Abnormal [employer] [facility] Phone: [facility] Phone: Blood Gas, VenousOrdered By: Sai Hernandez on 12-27-2020 Manuel Test NOT REPORTED [facility] Phone: Carboxyhemoglobin NOT REPORTED 0.0 - 5.0 % [employer] Phone: Comment on above: FIO2 NOT REPORTED [facility] Work Phone: HCO3 (Bld) [Moles/Vol] 27.8 mmol/L 24.0 - 30.0 mmol/L [facility] Work Phone: Interpretation and review of laboratory results Abnormal [facility] Work Phone: Methemoglobin NOT REPORTED 0.0 - 1.9 % [facility] Work Phone: Mode NOT REPORTED [facility] Work Phone: Negative Base Excess, Rm NOT REPORTED 0.0 - 2.0 mmol/L [facility] Work Phone: NOTIFICATION NOT REPORTED [facility] Work Phone: NOTIFICATION TIME NOT REPORTED [facility] Work Phone: O2 Device/Flow/% NOT REPORTED [facility] Work Phone: Oxygen saturation in Blood 96.6 % High 60.0 - 85.0 % [facility] Work Phone: Oxyhemoglobin NOT REPORTED 95.0 - 98.0 % [facility] Work Phone: pCO2, Rm 50.8 [facility] Work Phone: pCO2, Rm, Temp Adj NOT REPORTED [facility] Work Phone: Peep/Cpap NOT REPORTED [facility] Work Phone: Sample Site NOT REPORTED [employer] [facility] Work Phone: Set Rate NOT REPORTED [facility] Work Phone: Text for Respiratory NOT REPORTED [facility] Work Phone: Total Hb NOT [...] Phone: Absolute Lymph # 1.88 [facility] Work Phone: Absolute Benzie # 0.36 [facility] Work Phone: Basophils (Bld) [#/Vol] 10*3/uL [facility] Work Phone: Basophils/100 WBC (Bld) 0 % 0 - 2 % [facility] Work Phone: Differential Type NOT REPORTED [facility] Work Phone: Eosinophils/100 WBC (Bld) 5 % High 1 - 4 % [facility] Work Phone: Hematocrit (Bld) [Volume fraction] 38.9 % 36.3 - 47.1 % [facility] Work Phone: Hemoglobin.gastrointe stinal spec 1 Ql (Stl) 12.5 g/dL 11.9 - 15.1 g/dL [employer] [facility] Phone: Immature granulocytes/100 WBC (Bld) 0 % 0 [facility] Phone: Interpretation and review of laboratory results Abnormal [facility] Phone: Lymphocytes/100 WBC (Bld) 38 % 24 - 43 % [employer] [facility] Phone: MCH (RBC) [Entitic mass] 29.3 pg 25.2 - 33.5 pg [employer] [facility] Phone: MCHC (RBC) [Mass/Vol] 32.1 g/dL 28.4 - 34.8 g/dL [employer] [facility] Phone: MCV (RBC) [Entitic vol] 91.3 fL 82.6 - 102.9 fL [facility] Phone: Monocytes/100 WBC (Bld) 7 % 3 - 12 % [employer] [facility] Phone: NRBC Automated 0.0 0.0 per 100 WBC [facility] Phone: Platelet distribution width (Bld) [Ratio] 13.3 % 11.8 - 14.4 % [facility] Phone: Platelet Estimate NOT REPORTED [facility] Phone: Platelet mean volume (Bld) [Entitic vol] 10.4 fL 8.1 - 13.5 fL [facility] Phone: Platelets (Bld) [#/Vol] 181 10*3/uL [employer] [facility] Phone: RBC (Bld) [#/Vol] 4.26 10*6/uL 3.95 - 5.1 1 m/uL [facility] Phone: RBC (Bld) [#/Vol] NOT REPORTED [facility] Phone: Segmented neutrophils/100 WBC (Bld) 50 % 36 - 65 % [facility] Phone: Segs Absolute 2.49 [employer] Work Phone: WBC (Bld) [#/Vol] 5.0 10*3/uL [facility] Phone: WBC (Bld) [#/Vol] NOT REPORTED [facility] Phone: [employer] Work Phone: Comprehensive Metabolic Pane l w/ Reflex to MGOrdered By: Sai Hernandez on 12-27-2020 Albumin [Mass/Vol] 4.1 g/dL 3.5 - 5.2 g/dL [facility] Phone: Albumin/Globulin [Mass ratio] 1.7 {ratio} [facility] Phone: ALP (Bld) [Catalytic activity/Vol] 92 U/L 35 - 104 U/L [facility] Phone: ALT [Catalytic activity/Vol] 19 U/L 5 - 33 U/L [facility] Phone: Anion gap [Moles/Vol] 13 mmol/L 9 - 17 mmol/L [employer] [facility] Phone: AST [Catalytic activity/Vol] 25 U/L <32 [facility] Phone: Bilirubin [Mass/Vol] 0.57 mg/dL 0.3 - 1 .2 mg/dL [facility] Phone: Calcium [Mass/Vol] 9.4 mg/dL 8.6 - 10. 4 mg/dL [facility] Phone: Chloride [Moles/Vol] 101 mmol/L 98 - 10 7 mmol/L [facility] Phone: CO2 [Moles/Vol] 21 mmol/L 20 - 31 mmol/L [facility] Phone: Creatinine [Mass/Vol] 0.73 mg/dL 0.50 - 0.90 mg/dL [facility] Phone: Free PSA/Total PSA [Mass fraction] 6.5 g/dL 6.4 - 8.3 g/dL [facility] Phone: GFR >60 >60 mL/min [employer] Work Phone: GFR Non- >60 >60 mL/min [employer] Work Phone: Glucose [Mass/Vol] 104 mg/dL High 70 - 99 mg/dL [facility] Phone: Potassium [Moles/Vol] 4.0 mmol/L 3.7 - 5.3 mmol/L [facility] Phone: Sodium [Moles/Vol] 135 mmol/L 135 - 144 mmol/L [employer] [facility] Phone: Urea nitrogen (BldV) [Mass/Vol] 9 mg/dL 6 - 20 mg/dL [employer] [facility] Phone: Urea nitrogen/Creatinine (Bld) [Mass ratio] 12 [employer] Work Phone: Drug screen multi urineOrder ed By: Sai Hernandez on 12-27-2020 Amphetamine Screen, Ur Positive Abnormal NEGATIVE [employer] [facility] Phone: Barbiturate Screen, Ur Negative NEGATIVE [employer] Work Phone: Benzodiazepine Screen, Urine Negative NEGATIVE [employer] Work Phone: Buprenorphine Urine Negative NEGATIVE [employer] Work Phone: Cannabinoid Scrn, Ur Positive Abnormal NEGATIVE [employer] Work Phone: Cocaine Metabolite, Urine Positive Abnormal NEGATIVE [employer] Work Phone: Interpretation and review of laboratory results Abnormal [employer] Work Phone: MDMA, Urine NOT REPORTED NEGATIVE [employer] Work Phone: Methadone Screen, Urine Negative NEGATIVE [employer] Work Phone: Methamphetamine, Urine Positive Abnormal NEGATIVE [employer] Work Phone: Opiates, Urine Negative NEGATIVE [employer] [facility] Work Phone: Oxycodone Screen, Ur Negative NEGATIVE [employer] Work Phone: Phencyclidine, Urine Negative NEGATIVE [employer] Work Phone: Propoxyphene, Urine Negative NEGATIVE [facility] Work Phone: Test Information NOT REPORTED [employer] Work Phone: Tricyclic Antidepressants, Urine Negative NEGATIVE [employer] Work Phone: Comment on above: Drug screen results are to be used for medical purposes only. All positive results are unconfirmed. Testing for employment or legal uses should be sent to a reference laboratory for confirmation. [employer] Work Phone: EthanolOrdered By: Sai munson on 12-27-2020 Ethanol [Mass/Vol] mg/dL <10 mg/dL [employer] Work Phone: Ethanol percent <0.010 <0.010 % [facility] Work Phone: [employer] Work Phone: Glucose, Whole BloodOrdered By: Sai Hernandez on 12-27-2020 Glucose [Mass/Vol] 75 mg/dL 74 - 100 mg/dL [facility] Phone: [employer] Work Phone: HCG, Quantitative, Ordered By: Sai Hernandez on 12-27-2020 hCG Quant <1 <5 IU/L [employer] [facility] Phone: Comment on above: Non-preg premeno <=5 Postmeno <=8 Male <=3 If HCG results do not concur with clinical observations, additional testing to confirm results is recommended. Elevated results not associated with may be found in patients with other diseases such as tumors of the germ cells (testis, ovaries, etc.), bladder, pancreas, stomach, lungs, and liver. [employer] Work Phone: Laboratory - Chemistry and C hemistry - challengeOrdered By: Sai Hernandez on 12-27-2020 GFR/1.73 sq M.predicted MDRD (S/P/Bld) [Vol rate/Area] [employer] Work Phone: Comment on above: Average GFR for 30-3 9 years old: 107 mL/min/1.73sq m Chronic Kidney Disease: <60 mL/min/1.73sq m Kidney failure: <15 mL/min/1.73sq m eGFR calculated using average adult body mass. Additional eGFR calculator available at: http://www.Simio/multiple_crcl_2012.htm Stage 1: Some kidney damage normal GFR Stage 2: Mild kidney damage GFR 60-89 Stage 3: Moderate kidney damage GFR 30-59 Stage 4: Severe kidney damage GFR 15-29 Stage 5: Severe kidney damage GFR <15 ESRD - chronic treatment by dialysis or transplant No Panel InformationOrdered By: Sai Hernandez on 12-27-2020 Interpretation and review of laboratory results Abnormal [employer] Work Phone: [employer] Work Phone: SalicylateOrdered By: Gonzalez Hernandez on 12-27-2020 Salicylate Lvl <1 Low 3 - 10 mg/dL [facility] Work Phone: Urinalysis, reflex to micros copicOrdered By: Sai Hernandez on 12-27-2020 Bilirubin Urine Negative NEGATIVE [facility] Work Phone: Color, UA Yellow Yellow [facility] Work Phone: Glucose, Ur Negative NEGATIVE [employer] [facility] Work Phone: Interpretation and review of laboratory results Abnormal [employer] Work Phone: Ketones Ql (U) Negative NEGATIVE [facility] Work Phone: Leukocyte esterase Test strip Ql (U) Negative NEGATIVE [facility] Work Phone: Nitrite, Urine Negative NEGATIVE [employer] [facility] Work Phone: pH, UA 6.0 [facility] Work Phone: Protein, UA Negative NEGATIVE [facility] Work Phone: Specific [place], UA <1.005 [employer] Work Phone: Turbidity UA Clear Clear [facility] [employer] Work Phone: Urinalysis Comments NOT REPORTED [facility] [employer] Work Phone: Urine Hgb Negative NEGATIVE [facility] [employer] Work Phone: Urobilinogen, Urine Normal Normal [facility] [employer] Work Phone: [facility] [employer] Work Phone: Operative Reporton Operative Report MR#: [id number] [facility] Pt. Name: Tyrone Lim Room #: PMC [...] to interact and give feedback. The x-ray engineer technician was supervised and instructed to operate [...] 5-inch Andrew spinal needle was inserted using cnfw-rnm-vireej-of-the-n eedle technique. The needle was advanced into [...] Mckeon MD Date Trans: 07/08/2020 02:30 P/ [id number] Normal [facility] SPINAL PAIN BLOCK 05-04-20 21 SPINAL PAIN BLOCK [facility] Department of Radiology [address] [place] [id number] == Patient Name: TYRONE LIM : 1985 Sex: F Age: Race: White Pt. Location: 18 Patient Status: Ordered Date: 07/08/2020 5:00:00 AM Completed Date: 07/08/2020 01:13 PM Requesting Provider: ALEYDA GOMEZ Attending Provider: Report Copy To: Signs & Symptoms: M96.1 Postlaminectomy syndrome, not elsewhere classified I10 History: Comments: [id number] (50) BILAT S1 TFESI #2 Exam: SPINAL PAIN BLOCK == SPINAL PAIN BLOCK 07/08/2020 1:13 PM SIGNS AND SYMPTOMS: M96.1 Postlaminectomy syndrome, not elsewhere classified I10 TECHNOLOGIST COMMENTS:bilateral S1 TFE .34 min. fluoro. time used - Dr. Gomez IMPRESSION: 0.34 minutes of fluoroscopy was provided for Dr. Gomez for an epidural pain block. Millicent FerraroRT-R Bracelet Former Electronically signed: ONLY DOCUMENTATION. Transcribed by: [email or web address], User Resident: Electronically Signed by: ONLY DOCUMENTATION @ 07/08/2020 02:14 PM Normal [facility] Comment on above: Order Comment: [id number] (50) BILAT S1 TFESI #2 Operative Reporton Operative Report MR#: [id number] [facility] Pt. Name: Tyrone Lim Room #: PMC [...] to interact and give feedback. The x-ray engineer technician was supervised and instructed to operate [...] 25-gauge, 5-inch andrew needle was inserted using lrbj-nax-oxysoa-of-the-n eedle technique. The needle was advanced into [...] Mckeon MD Date Trans: 06/23/2020 12:38 P/ [id number] Normal [facility] SPINAL PAIN BLOCKon 06-24-19 21 SPINAL PAIN BLOCK [facility] Department of Radiology [address] [place] [id number] == Patient Name: TYRONE LIM : 1985 Sex: F Age: Race: White Pt. Location: 18 Patient Status: Ordered Date: 06/11/2020 5:00:00 AM Completed Date: 06/23/2020 11:44 AM Requesting Provider: ALEYDA GOMEZ Attending Provider: Report Copy To: Signs & Symptoms: M96.1 Postlaminectomy syndrome, not elsewhere classified I10 History: Comments: [id number] (50) BILAT S1 TFESI #1 Exam: SPINAL PAIN BLOCK == SPINAL PAIN BLOCK 06/23/2020 11:44 AM SIGNS AND SYMPTOMS: M96.1 Postlaminectomy syndrome, not elsewhere classified I10 TECHNOLOGIST COMMENTS:Dr. Gomez used .43 min of white fluoro time arti S1 TFE IMPRESSION: 0.43 minutes of fluoroscopy was provided for her Patricia for an epidural pain block. Gilma KnightRT-R Bracelet Former Electronically signed: ONLY DOCUMENTATION. Transcribed by: [email or web address], User Resident: Electronically Signed by: ONLY DOCUMENTATION @ 06/23/2020 03:20 PM Normal [facility] Comment on above: Order Comment: [id number] (57) BILAT S1 TFESI #1 MRI LUMBAR SPINE WO CONTRAST on 09-05-2019 MRI LUMBAR SPINE WO CONTRAST [facility] Department of Radiology [address] [place] [phone] == Patient Name: TYRONE LIM : 1985 Sex: F Age: Race: White Pt. Location: 18 Patient Status: D Ordered Date: 08/23/2019 8:55:00 AM Completed Date: 09/05/2019 11:17 AM Requesting Provider: ALEYDA GOMEZ Attending Provider: Report Copy To: Signs & Symptoms: M54.5 Low back pain I10 History: [employer] Auth via [employer] for CPT 09858 Auth#[id number] Valid 08/28/19-11/26/19 *Sla No to all COVID [...] described. Electronically signed: Arsh Hatfield. Transcribed by: [email or web address], User Resident: Electronically Signed by: ARSH HATFIELD @ 09/06/2019 01:26 PM Normal [facility] Comment on above: Order Comment: Sharona Gipson Operative Reporton 0 Operative Report MR#: [id number] [facility] Pt. Name: Tyrone Lim Room #: PMC [...] to interact and give feedback. The x-ray engineer technician was supervised and instructed to operate [...] 5-inch Andrew spinal needle was inserted using ictt-olr-urdetd-of-the-n eedle technique. The needle was advanced into [...] Armijo MD Date Trans: 08/07/2019 03:57 P/ [id number] Normal [facility] SPINAL PAIN BLOCKon 08-07-19 20 SPINAL PAIN BLOCK [facility] Department of Radiology [address] [place] [phone] == Patient Name: TYRONE LIM : [...] for an epidural pain block. AMBAR Alcazar Bracelet Former Electronically signed: ONLY DOCUMENTATION. Transcribed by: [email or web address], User Resident: Electronically Signed by: ONLY DOCUMENTATION @ 08/13/2019 09:18 AM Normal [facility] Comment on above: Order Comment: LEFT S1 TFESI X1 Otheron 2019 Left foot: No acute osseous abnormality. Right foot: Nondisplaced fracture through the 5th metatarsal head without intra-articular extension. Comminuted distal 4th metatarsal fracture with slight impaction and overriding. No joint dislocation is noted. Soft tissue swelling over the forefoot is noted. [facility], [place] EXAMINATION: TWO XRA Y VIEWS OF THE [...] tissue swelling over the midfoot is noted. [place], [place] Sagar, Mhpn Incoming Radiant Results From [employer] - 2019 3:40 PM EST EXAMINATION: TWO [...] tissue swelling over the forefoot is noted. [place] Basic Metabolic Panelon 10-3 Anion gap [Moles/Vol] 10 mmol/L 9 - 17 mmol/L [place] Bun/Cre Ratio 9 [place] Calcium [Mass/Vol] 9.6 mg/dL 8.6 - 10. 4 mg/dL [place] Chloride [Moles/Vol] 107 mmol/L 98 - 10 7 mmol/L [place] CO2 [Moles/Vol] 22 mmol/L 20 - 31 mmol/L [place] Creatinine [Mass/Vol] 0.89 mg/dL 0.5 - 0.9 mg/dL [place] GFR >60 >60 mL/min [place] GFR Non- >60 >60 mL/min [place] Glucose [Mass/Vol] 75 mg/dL 70 - 99 mg/dL [place] Interpretation and review of laboratory results Abnormal [place] Potassium [Moles/Vol] 5.9 mmol/L High 3.7 - 5.3 mmol/L [place] Sodium [Moles/Vol] 139 mmol/L 135 - 144 mmol/L [place] Urea nitrogen [Mass/Vol] 8 mg/dL 6 - 20 mg/dL [place] C-Reactive Proteinon 01-03- 019 CRP [Mass/Vol] 3.4 mg/L 0 - 5 mg/L [place], [place] CBC Auto Differentialon 12-07 0-2019 Basophils (Bld) [#/Vol] 0.03 10*3/uL [place] Basophils/100 WBC (Bld) 0 % 0 - 2 % [place] Differential Type NOT REPORTED [place] Eosinophils (Bld) [#/Vol] 0.39 10*3/uL [place] Eosinophils/100 WBC (Bld) 4 % 1 - 4 % [place] Erythrocyte distribution width (RBC) [Ratio] 12.7 % 11.8 - 14.4 % [place] Hematocrit (Bld) [Volume fraction] 46.9 % 36.3 - 47.1 % [place] Hemoglobin (Bld) [Mass/Vol] 15.6 g/dL High 11.9 - 15.1 g/dL [place] Immature granulocytes (Bld) [#/Vol] 1 % High 0 [place] Immature granulocytes (Bld) [#/Vol] 0.05 10*3/uL [place] Interpretation and review of laboratory results Abnormal [place] Lymphocytes (Bld) [#/Vol] 2.86 10*3/uL [place] Lymphocytes/100 WBC (Bld) 30 % 24 - 43 % [place] MCH (RBC) [Entitic mass] 30.6 pg 25.2 - 33.5 pg [place] MCHC (RBC) [Mass/Vol] 33.3 g/dL 28.4 - 34.8 g/dL [place] MCV (RBC) [Entitic vol] 92.0 fL 82.6 - 102.9 fL [place] Monocytes (Bld) [#/Vol] 0.62 10*3/uL [place] Monocytes/100 WBC (Bld) 7 % 3 - 12 % [place] Platelet mean volume (Bld) [Entitic vol] 11.0 fL 8.1 - 13.5 fL [place] Platelets (Bld) [#/Vol] 218 10*3/uL [place] Platelets (Bld) [#/Vol] NOT REPORTED [place] RBC (Bld) [#/Vol] 5.10 10*6/uL 3.95 - 5.1 1 m/uL [place] RBC morphology finding Nom (Bld) NOT REPORTED [place] Segmented neutrophils/100 WBC (Bld) 58 % 36 - 65 % [place] Segs Absolute 5.57 [place] WBC (Bld) [#/Vol] 9.5 10*3/uL [place] WBC (Bld) [#/Vol] 0.0 10*3/uL 0.0 per 10 0 WBC [place] WBC Morphology NOT REPORTED [place], [place] D-Dimer, Quantitativeon 12-07 D-Dimer, Quant 0.57 [place] Comment on above: Elevated levels of [...] Interpretation and review of laboratory results Abnormal [place] MRI LUMBAR SPINE WO CONTRAST on 01-03-2019 Sagar, Mhpn Incoming Radiant Results From [employer] - 01/03/2019 5:32 PM EDT EXAMINATION: MRI [...] and contacting the left L5 nerve root. [place] EXAMINATION: MRI OF THE LUMBAR SPINE [...] likely contacts the left L5 nerve root. [place] Large disc protrusio n within the left L5-S1 foramina causing severe stenosis and contacting the left L5 nerve root. [place] Metabolic Panelon 01-03-2019 GFR/1.73 sq M predicted among non-blacks MDRD (S/P/Bld) [Vol rate/Area] [place] Comment on above: Average GFR for 30-3 9 years old: 107 mL/min/1.73sq m Chronic Kidney Disease: <60 mL/min/1.73sq m Kidney failure: <15 mL/min/1.73sq m eGFR calculated using average adult body mass. Additional eGFR calculator available at: http://www.Simio/multiple_crcl_2012.htm Stage 1: Some kidney damage normal GFR Stage 2: Mild kidney damage GFR 60-89 Stage 3: Moderate kidney damage GFR 30-59 Stage 4: Severe kidney damage GFR 15-29 Stage 5: Severe kidney damage GFR <15 ESRD - chronic treatment by dialysis or transplant Sedimentation Rateon 2 019 Sed Rate 5 mm 0 - 20 mm [place] Urinalysis with Microscopico n 01-03-2019 Amorphous, UA 1+ Abnormal None [place], [place] Bacteria, UA TRACE Abnormal None [place], [place] Bilirubin Urine Negative NEGATIVE [place], [place] Casts UA NOT REPORTED /LPF [place], [place] Color, UA YELLOW YELLOW [place] Crystals UA CALCIUM OXALATE Abnormal None /HPF [place] Crystals UA 2 TO 5 Abnormal None /HPF [place] Epithelial Cells UA 2 TO 5 [place] Glucose, Ur Negative NEGATIVE [place] Interpretation and review of laboratory results Abnormal [place] Ketones Ql (U) TRACE Abnormal NEGATIVE [place] Leukocyte esterase Test strip Ql (U) Negative NEGATIVE [place] Mucus, UA NOT REPORTED None [place], [place] Nitrite, Urine Negative NEGATIVE [place] Other Observations UA NOT REPORTED NOT REQ. M [place], [place] pH, UA 5.5 [place] Protein (U) [Mass/Vol] Negative NEGATIVE [place] RBC (U) [#/Vol] None [facility] [place] Renal Epithelial, Urine NOT REPORTED 0 /HPF [place] Specific [place], UA 1.020 [place], [place] Trichomonas, UA NOT REPORTED None [facility] [place] Turbidity UA CLEAR CLEAR [place], [place] Urinalysis Comments NOT REPORTED [place], [place] Urine Hgb Negative NEGATIVE [place] Urobilinogen, Urine ELEVATED Abnormal Normal [place] WBC, UA 0 TO 2 [place] Yeast, UA NOT REPORTED None [place], [place] - [place] XR CHEST STANDARD (2 VW)on No acute cardiopulmo nary pathology. [place] EXAMINATION: TWO XRA Y VIEWS OF [...] structures and soft tissues are grossly intact. [place], Mhpn Incoming Radiant Results From [email or web address] - 01/03/2019 4:49 PM EDT EXAMINATION: TWO [...] grossly intact. IMPRESSION: No acute cardiopulmonary pathology. [employer] [facility] [place], [place] VL DUP LOWER EXTREMITY VENOU S LEFTon 11-15-2018 [facility] Vascular Lower Extremities DVT Study Procedure Patient Name JENNA Date of Study 11/14/2018 HOLGER Hewitt Date of 1985 Gender Female Age 33 year(s) Race Room Number Corporate ID # [id number] Patient MR # [id number] [employer] FANG Banerjee Interpreting Physician Gino Shepherd Referring Referring Physician Nurse Practitioner Additional Comments Study ordered by Misbah Oreilly DP Copy to Rosana CHOW. Procedure Type of [...] !Popliteal !Phasic! ! ! + ----+------+------+----- ---+ [facility] CHYNA SINGH Mhpn Incoming Cardio Results From [facility] - 11/15/2018 12:52 PM EDT [facility] Vascular Lower Extremities DVT Study Procedure Patient Name JENNA Date of Study 11/14/2018 HOLGER Hewitt Date of 1985 Gender Female Age 33 year(s) Race Room Number Corporate ID # [id number] Patient MR # [id number] [employer] FANG Banerjee Interpreting Physician Gino Shepherd Referring Referring Physician Nurse Practitioner Additional Comments Study ordered by Misbah Oreilly [facility] Copy to Rosana CHOW. Procedure Type of [...] !Phasic! ! ! + ----+------+------+----- --- + [employer] [facility] [employer] Brain Natriuretic Peptideon 11-14-2018 Natriuretic peptide B (Bld) [Mass/Vol] 50 pg/mL <300 [facility], [place] Comment on above: Pro-BNP results audrey ot be compared to BNP results. Natriuretic peptide B (Bld) [Mass/Vol] Pro-BNP Reference Range: [employer] [facility], [place] Comment on above: Rule Out: <300 [place] Zone: Age <50 300-450 Age 50-75 300-900 Age >75 300-1800 Usually represents mild to moderate HF but other cardiopulmonary causes cannot be ruled out. Rule In: Age <50 >450 Age 50-75 >900 Age >75 >1800 CBC Auto Differentialon 11-05 0-2018 Basophils (Bld) [#/Vol] 0.07 10*3/uL [place] Basophils/100 WBC (Bld) 1 % 0 - 2 % [place] Differential Type NOT REPORTED [place] Eosinophils (Bld) [#/Vol] 0.73 10*3/uL [place] Eosinophils/100 WBC (Bld) 11 % High 1 - 4 % [place] Erythrocyte distribution width (RBC) [Ratio] 13.2 % 11.8 - 14.4 % [place] Hematocrit (Bld) [Volume fraction] 39.1 % 36.3 - 47.1 % [place] Hemoglobin (Bld) [Mass/Vol] 12.8 g/dL 11.9 - 15.1 g/dL [place] Immature granulocytes (Bld) [#/Vol] 1 % High 0 [place] Immature granulocytes (Bld) [#/Vol] 0.07 10*3/uL [place] Interpretation and review of laboratory results Abnormal [place] Lymphocytes (Bld) [#/Vol] 1.78 10*3/uL [place] Lymphocytes/100 WBC (Bld) 27 % 24 - 43 % [place] MCH (RBC) [Entitic mass] 31.0 pg 25.2 - 33.5 pg [place] MCHC (RBC) [Mass/Vol] 32.7 g/dL 28.4 - 34.8 g/dL [place] MCV (RBC) [Entitic vol] 94.7 fL 82.6 - 102.9 fL [place] Monocytes (Bld) [#/Vol] 0.59 10*3/uL [place] Monocytes/100 WBC (Bld) 9 % 3 - 12 % [place] Morphology Cristiano (Bld) [Interp] Normal [place] Platelet mean volume (Bld) [Entitic vol] 11.2 fL 8.1 - 13.5 fL [place], [place] Platelets (Bld) [#/Vol] NOT REPORTED [place] Platelets (Bld) [#/Vol] 213 10*3/uL [place] RBC (Bld) [#/Vol] 4.13 10*6/uL 3.95 - 5.1 1 m/uL [place] RBC morphology finding Nom (Bld) NOT REPORTED [place] Segmented neutrophils/100 WBC (Bld) 51 % 36 - 65 % [place] Segs Absolute 3.36 [place] WBC (Bld) [#/Vol] 6.6 10*3/uL [place] WBC (Bld) [#/Vol] 0.0 10*3/uL 0.0 per 10 0 WBC [place] WBC Morphology NOT REPORTED [place] Comprehensive Metabolic Pane l w/ Reflex to MGon 11-14-2018 Albumin [Mass/Vol] 3.6 g/dL 3.5 - 5.2 g/dL [place] Albumin/Globulin [Mass ratio] 1.3 {ratio} [place] ALP [Catalytic activity/Vol] 407 U/L High 35 - 104 U/L [place] ALT [Catalytic activity/Vol] 723 U/L High 5 - 33 U/L [place] Anion gap [Moles/Vol] 13 mmol/L 9 - 17 mmol/L [place] AST [Catalytic activity/Vol] 657 U/L High <32 [place], [place] Bilirubin Ql (U) 1.91 mg/dL High 0.3 - 1.2 mg/dL [place] Bun/Cre Ratio 19 [place], [place] Calcium [Mass/Vol] 8.9 mg/dL 8.6 - 10. 4 mg/dL [place] Chloride [Moles/Vol] 103 mmol/L 98 - 10 7 mmol/L [place] CO2 [Moles/Vol] 24 mmol/L 20 - 31 mmol/L [place] Creatinine [Mass/Vol] 0.96 mg/dL High 0.5 - 0.9 mg/dL [place] GFR >60 >60 mL/min [place] GFR Non- >60 >60 mL/min [place] Glucose [Mass/Vol] 71 mg/dL 70 - 99 mg/dL [place] Interpretation and review of laboratory results Abnormal [place] Potassium [Moles/Vol] 4.0 mmol/L 3.7 - 5.3 mmol/L [place] Protein [Mass/Vol] 6.4 g/dL 6.4 - 8.3 g/dL [place] Sodium [Moles/Vol] 140 mmol/L 135 - 144 mmol/L [place] Urea nitrogen [Mass/Vol] 18 mg/dL 6 - 20 mg/dL [place] HIV Screenon 11-14-2018 HIV Ag/Ab NONREACTIVE NONREACTIVE [place] Comment on above: No laboratory eviden ce of HIV infection. If acute HIV infection is suspected, consider testing for HIV-1 RNA. Hepatitis Panel, Acuteon HAV IgM IA Qn (S) NONREACTIVE NONREACTIVE [place] Hep B Core Ab, IgM NONREACTIVE NONREACTIVE [place] Hepatitis B Surface Ag NONREACTIVE NONREACTIVE [place] Hepatitis C Ab REACTIVE Abnormal NONREACTIVE [place], [place] Comment on above: The hepatitis C [...] Interpretation and review of laboratory results Abnormal [place] Metabolic Panelon 11-14-2018 GFR/1.73 sq M predicted among non-blacks MDRD (S/P/Bld) [Vol rate/Area] [place] Comment on above: Average GFR for 30-3 9 years old: 107 mL/min/1.73sq m Chronic Kidney Disease: <60 mL/min/1.73sq m Kidney failure: <15 mL/min/1.73sq m eGFR calculated using average adult body mass. Additional eGFR calculator available at: http://www.IncellDx.Fangdd/multiple_crcl_2012.htm Stage 1: Some kidney damage normal GFR Stage 2: Mild kidney damage GFR 60-89 Stage 3: Moderate kidney damage GFR 30-59 Stage 4: Severe kidney damage GFR 15-29 Stage 5: Severe kidney damage GFR <15 ESRD - chronic treatment by dialysis or transplant T. pallidum Abon 11-14-2018 T. pallidum, IgG NONREACTIVE NONREACTIVE [place] Comment on above: T. pallidum antibodies [...] joint. Please correlate with area of pain. [email or web address] Bright ComputingHARRY S. TRUMAN MEMORIAL VETERANS' HOSPITALSilverStorm Technologies [place] EXAMINATION: THREE X RAY VIEWS OF THE [...] spaces appear well maintained. No bony erosions. [facility] [employer] [place], [place] Sagar, Mhpn Incoming Radiant Results From [email or web address] - 10/15/2018 10:00 AM EDT EXAMINATION: THREE [...] joint. Please correlate with area of pain. [facility] [place], [place] XR ANKLE LEFT (MIN 3 VIEWS)o n [...] Oh Jr., DO 10/15/18 Final result Normal [facility] XR FOOT LEFT (MIN 3 VIEWS)on 10-15-2018 [...] Oh Jr., DO 10/15/18 Final result Normal [facility] Basic Metabolic Panlon 10-23 Anion gap 3 molar conc 12 mmol/L Normal 9-18 [facility] Comment on above: Performed By: #### C THEE BMP ####[facility] [place], [place] [phone] Calcium mass conc 9.1 mg/dL Normal 8.5-10.2 [facility] Comment on above: Performed By: #### C BCDIF, BMP ####[facility] [address] [place], [place] [phone] Chloride molar conc 108 mmol/L High 97-105 [facility] Comment on above: Performed By: #### C BCDIF, BMP ####[facility] [address] [place], [place] [phone] CO2 molar conc 23 mmol/L Normal 22-30 [facility] Comment on above: Performed By: #### C BCDIF, BMP ####[facility] [address] [place], [place] [phone] Creatinine mass conc 0.94 mg/dL Normal 0.58-0.96 [facility] Comment on above: Performed By: #### C THEE, HUMBERTO ####[facility] [place], [place] [phone] eGFR- Amer. >60 Normal [facility] Comment on above: Performed By: #### C THEE, HUMBERTO ####[facility] [place], [place] [phone] GFR/1.73 sq M predicted among non-blacks MDRD vol rate/area (S/P/Bld) mL/min/{1.73_m2} Normal [facility] Comment on above: Result Comment: eGFR [...] actual GFR. Performed By: #### C THEE, HUMBERTO ####[facility] [place], [place] [phone] Glucose mass conc 81 mg/dL Normal 74-99 [facility] Comment on above: Result Comment: The [place] Diabetes Association (ADA) provides guidance for cutoff [...] Standards of Medical Care in Diabetes 2016, [place] Diabetes Association. Diabetes Care. 2016.39(Suppl 1). Performed By: #### C BCDIF, BMP ####[place] [address] [address], [place] [phone] Potassium molar conc 3.8 mmol/L Normal 3.7-5.1 [facility] Comment on above: Performed By: #### C BCDIF, BMP ####[place] [address] [address] [place] [phone] Sodium molar conc 143 mmol/L Normal 136-144 [facility] Comment on above: Performed By: #### C BCDIF, BMP ####[place] [address] [place] [address] [phone] Urea nitrogen mass conc 12 mg/dL Normal 7-21 [facility] Comment on above: Performed By: #### C BCDIF, BMP ####[address] [phone] CBC and Differentialon 10-23 Abs Baso <0.03 Normal <0.11 [facility] Comment on above: Performed By: #### C BCDIF, BMP ####[place] [phone] Abs Benzie 0.48 k/uL Normal <0.87 [facility] Comment on above: Performed By: #### C BCDIF, BMP ####[place] [address] [address] [place] [phone] Abs Neut 2.26 k/uL Normal 1.45-7.50 [facility] Comment on above: Performed By: #### C BCDIF, BMP ####[place] [address] [address], [place] [phone] Absolute nRBC <0.01 Normal <0.01 [facility] Comment on above: Performed By: #### C BCDIF, BMP ####[place] [address] [address] [phone] Basophils/100 WBC Auto (Bld) 0.4 % Normal [facility] Comment on above: Performed By: #### C BCLEOPOLDO, BMP ####[place] [address] [address] [phone] DTYPE Auto Diff Normal [facility] Comment on above: Performed By: #### C BCDIF, BMP ####[place] [address] [address] [phone] Eosinophils Auto #/vol (Bld) 0.36 10*3/uL Normal <0.46 [facility] Comment on above: Performed By: #### C BCLEOPOLDO, BMP ####[place] [address] [address] [phone] Eosinophils/100 WBC Auto (Bld) 6.8 % Normal [facility] Comment on above: Performed By: #### C BCDIF, BMP ####[place] [address] [address] [phone] Erythrocyte distribution width Auto Ratio (RBC) 12.3 % Normal 11.5-15.0 [facility] Comment on above: Performed By: #### C BCDIF, BMP ####[place] [address] [address] [phone] Hematocrit Auto Volume Fraction (Bld) 40.2 % Normal 36.0-46.0 [facility] Comment on above: Performed By: #### C BCDIF, BMP ####[place] [address] [address] [phone] Hemoglobin mass conc (Bld) 13.8 g/dL Normal 11.5-15.5 [facility] Comment on above: Performed By: #### C BCDIF, BMP ####[place] [address] [place] [address] [phone] Lymphocytes Auto #/vol (Bld) 2.17 10*3/uL Normal 1.00-4.00 [facility] Comment on above: Performed By: #### C BCDIF, BMP ####[place] [address] [address] [phone] Lymphocytes/100 WBC Auto (Bld) 40.9 % Normal [facility] Comment on above: Performed By: #### C BCDIF, BMP ####[place] [address] [address] [place] [phone] MCH Auto Entitic mass (RBC) 32.5 pG Normal 26.0-34.0 [facility] Comment on above: Performed By: #### C BCDIF, BMP ####[place] [address] [address] [phone] MCHC Auto mass conc (RBC) 34.3 g/dL Normal 30.5-36.0 [facility] Comment on above: Performed By: #### C BCDIF, BMP ####[place] [address] [address] [phone] MCV Auto Entitic volume (RBC) 94.8 fL Normal 80.0-100.0 [facility] Comment on above: Performed By: #### C BCDIF, BMP ####[place] [address] [address] [phone] Monocytes/100 WBC Auto (Bld) 9.1 % Normal [facility] Comment on above: Performed By: #### C BCDIF, BMP ####[place] [address] [address] [phone] Neutrophils/100 WBC Auto (Bld) 42.8 % Normal [facility] Comment on above: Performed By: #### C BCDIF, BMP ####[place] [address] [address] AveClevelThomas [place] [phone] NRBCs 0.0 /100 WBC Normal 0 [facility] Comment on above: Performed By: #### C BCDIF, BMP ####[facility] [place], [place] [phone] Platelet mean volume Auto Entitic volume (Bld) 10.2 fL Normal 9.0-12.7 [facility] Comment on above: Performed By: #### C BCYESIF, BMP ####[place] [id number] [place], [place] [phone] Platelets Auto #/vol (Bld) 189 10*3/uL Normal 150-400 [facility] Comment on above: Performed By: #### C BCDIF, BMP ####[address] [phone] RBC Auto #/vol (Bld) 4.24 10*6/uL Normal 3.90-5.20 [facility] Comment on above: Performed By: #### Sameer KINGSTON, BMP ####[address] [phone] WBC Auto #/vol (Bld) 5.30 10*3/uL Normal 3.70-11.00 [facility] Comment on above: Performed By: #### Sameer KINGSTON, BMP ####[address] [phone] ED NOTEon 10-23-2017 ED NOTE HNO ID: [id number]: Jan (Rn) CHADD Westervice: Emergency MedicineAuthor Type: [...] any questions/concerns the patient may have. Normal [facility] ED PROV NOTEon 10-23-2017 Protein mass conc HNO ID: [id number]: Pavel Posada, MDService: Emergency MedicineAuthor Type: PhysicianType: ED Provider NotesFiled: 10/24/2017 6:35 PMNote Text:ED Provider NotePatient Name: Tyrone GuillenRN: [id number] DATE: 10/23/17HistoryPatient presents with:Abscess: R thigh, Hx [...] , which was supposedly prescribed to her byPCP. She also endorses a fever of 102 [...] notes arepresent to corroborate this story. Including [facility], which wasone of the hospitals she states she visited. We [place]from [place], but no recent visits were noted regarding [...] all over the skin. These lesions are onanb3ws-8.5cm. There is one on [place]-medial thigh on [...] No abscess or fluid collection was visualized onc ultrasound. . Management decisions include She was [...] Long Kiser MD, PGY 1Nichmindi (Res) Margi VNJfhwlfqj71/20/18 0148Attending NoteI evaluated the patient and personally [...] 10/24/2017Time: 6:33 Giovani Posada MD10/24/17 1835 Normal [facility] Metabolic Panelon 08-16-2017 Creatinine 142.27 mg/dL Invalid Interpretation Code [facility] Otheron 08-16-2017 S. pyogenes Ag IA Ql (Unsp spec) Negative Invalid Interpretation Code [facility] Urinalysis specialist review Interp Cristiano (Unsp spec) WNL Invalid Interpretation Code [facility] S. pyogenes Ag IA Ql (Unsp spec) Negative Invalid Interpretation Code [facility] Urinalysis specialist review Interp Cristiano (Unsp spec) WNL Invalid Interpretation Code [facility] 6-Monoacetylmorphine (6-NAS) Confirm mass conc (U) Negative Invalid Interpretation Code 5 [facility] Acetaminophen mass conc Negative Invalid Interpretation Code 5 [facility] Alpha hydroxyalprazolam mass conc 182.0 ng/mL Invalid Interpretation Code 5 [facility] Alprazolam mass conc 107.0 ng/mL Invalid Interpretation Code 5 [facility] Amitriptyline mass conc 865.0 ng/mL Invalid Interpretation Code 10 [facility] Amphetamine mass conc 11794 Invalid Interpretation Code 25 [facility] Butalbital Ql Negative Invalid Interpretation Code >250 [facility] Negative Invalid Interpretation Code 10 [facility] 182 Invalid Interpretation Code 5 [facility] 107 Invalid Interpretation Code 5 [facility] 865 Invalid Interpretation Code 10 [facility] 76263 Invalid Interpretation Code 25 [facility] 605 Invalid Interpretation Code 10 [facility] 42824 Invalid Interpretation Code 500 [facility] 2186 Invalid Interpretation Code 200 [facility] 83 Invalid Interpretation Code 50 [facility] 5616 Invalid Interpretation Code 25 [facility] 202 Invalid Interpretation Code 10 [facility] 6615 Invalid Interpretation Code 10 [facility] 601 Invalid Interpretation Code 10 [facility] 370958 Invalid Interpretation Code 500 [facility] 0 Invalid Interpretation Code [facility] 5.5 Invalid Interpretation Code [facility] 1.016 Invalid Interpretation Code [facility] 137 Invalid Interpretation Code 5 [facility] 137.0 ng/mL Invalid Interpretation Code 5 [facility] Urinalysison 08-16-2017 HCG.beta subunit ( test) Ql (U) Negative Invalid Interpretation Code [facility] HCG.beta subunit ( test) Ql (U) Negative Invalid Interpretation Code [facility] AEROBIC CULTUREon 06-09-2017 AEROBIC CULTURE SPECIMEN NUMBER: [id number] [facility] Comment on above: Result Comment: AERO BIC CULTURE REPORT STATUS: FINAL SITE/TYPE: RIGHT PALM STAIN RESULT(S): SMALL AMOUNT CELLULAR DEBRIS NO ORGANISMS SEEN CURRENT ANTIBIOTIC(S):NOT STATED CULTURE RESULT(S): NORMAL SKIN ZENY PRESENT VIRAL CULTURE, NON-RESPIRATO Jordi 06-09-2017 VIRAL CULTURE, NON-RESPIRATORY SEE NOTE Normal NEGATIVE [facility] Comment on above: Result Comment: Cult ure negativePerformed by [employer],[address] [place] [id number] bcy.[employer], Cezar Ledbetter MD, Lab. Director EFFECTIVE 04/18/2017 CLINICAL CHEMISTRY PLATFORM CHANGES IN MAIN LABORATORY ARE ASSOCIATED WITH REFERENCE RANGE CHANGES FOR A NUMBER OF ANALYTES. PLEASE REVIEW REFERENCE INTERVALS CAREFULLY P [facility]. [address] [place], [place] [address]Laboratory Director: Nnamdi Castro M.D.CLIA No. [id number] CAP Accreditation No. [id number] SURG. PATHOLOGY REPORTon SURGICAL PATHOLOGY REPORT [facility] Comment on above: Result Comment: DIAG NOSISRIGHT PALM, SKIN BIOPSY:STRATUM CORNEUM/KERATINACEOUS CRUSTNON-DIAGNOSTIC [id number]/05/31/2017 Electronically Signed Out by Renetta T. Jaquan, M.D.NATURE OF SPECIMENRight palmCLINICAL FINDINGSUnroofing of persistent hand ulcersGROSS DESCRIPTIONThe container is labeled Rt vinicio Gonzalez . Received informalin is a aleman unoriented ellipse of tissue measuring 0.6 x 0.3 x0.1 cm. The fragment is trisected. One cassette. nsmgkar05/30/2017MICROSCOPIC DESCRIPTIONThe specimen consists entirely of overlying stratumcorneum/parakeratotic crust. Skin (epidermis and dermis) is notpresent. The specimen is non-diagnostic. EFFECTIVE 04/18/2017 CLINICAL CHEMISTRY PLATFORM CHANGES IN MAIN LABORATORY ARE ASSOCIATED WITH REFERENCE RANGE CHANGES FOR A NUMBER OF ANALYTES. PLEASE REVIEW REFERENCE INTERVALS CAREFULLY P [facility]. [address] [place], [place] [address]Laboratory Director: Nnamdi Castro M.D.CLIA No. [id number] CAP Accreditation No. [id number] AEROBIC CULTUREon 02-22-2017 AEROBIC CULTURE SPECIMEN NUMBER: [id number] [facility] Comment on above: Result Comment: AERO BIC CULTURE REPORT STATUS: FINAL SITE/TYPE: GROIN STAIN RESULT(S): MODERATE AMOUNT PROTEINACEOUS MATERIAL SMALL AMOUNT SQUAMOUS EPITHELIAL CELLS NO ORGANISMS SEEN CURRENT ANTIBIOTIC(S):NOT STATED CULTURE RESULT(S): NORMAL SKIN ZENY PRESENT NO NEISSERIA GONORRHOEAE ISOLATEDPathology [facility]. [address] [place], [place] [address]Laboratory Director: Jacoby Olson M.D.CLIA No. [id number] CAP Accreditation No. [id number] Urinalysison 02-22-2017 HCG.beta subunit ( test) Ql (U) Negative Invalid Interpretation Code [facility] HCG.beta subunit ( test) Ql (U) Negative Invalid Interpretation Code [facility] Metabolic Panelon 01-06-2017 Hemoglobin A1c/Hemoglobin.total mass fraction (Bld) 5.20 % Invalid Interpretation Code < 7 [facility] Hemoglobin A1c/Hemoglobin.total mass fraction (Bld) 5.20 % Invalid Interpretation Code < 7 [facility] Otheron 01-06-2017 2 Invalid Interpretation Code [facility] 2 Invalid Interpretation Code [facility] Vital Signs Date Time Vital Sign Value Performing Clinician Facility 10-06-2023 13:03-0400 Body height 189.23 cm [facility] 10-06-2023 13:03-0400 Body mass index (BMI) [Ratio] 26.3 kg/m2 [facility] 10-06-2023 13:03-0400 Body weight 94.34 kg [facility] 10-06-2023 13:03-0400 Diastolic blood pressure 64 mm[Hg] [facility] 10-06-2023 13:03-0400 Heart rate 111 /min [facility] 10-06-2023 13:03-0400 SaO2% (BldA) [Mass fraction] 98 % [facility] 10-06-2023 13:03-0400 Systolic blood pressure 114 mm[Hg] [facility] 06-15-2023 16:37-0400 Diastolic blood pressure 72 mm[Hg] GENOVEVA Haile Work Phone: [facility] 06-15-2023 16:37-0400 Heart rate 73 /min GENOVEVA Haile Work Phone: [facility] 06-15-2023 16:37-0400 Respiratory rate 16 /min GENOVEVA Haile Work Phone: [facility] 06-15-2023 16:37-0400 SaO2% (BldA) [Mass fraction] 100 % HOME SALES CONSULTANTToño Ng Dantesheela Work Phone: [facility] 06-15-2023 16:37-0400 Systolic blood pressure 109 mm[Hg] GENOVEVA Gracemaryurisheela Work Phone: [facility] 06-15-2023 14:03-0400 Inhaled oxygen flow rate 2 L/min HOME SALES CONSULTANTToño Ng Lazara Work Phone: [facility] 06-15-2023 11:36-0400 Body height 180.34 cm HOME SALES CONSULTANTToño Haile Work Phone: [facility] 06-15-2023 11:36-0400 Body temperature 98 [degF] GENOVEVA Gracemaryurisheela Work Phone: [facility] 06-15-2023 11:36-0400 Body weight 103.87 kg HOME SALES CONSULTANTToño Gracemaryurisheela Work Phone: [facility] 05-31-2023 13:57-0400 Body height 182.9 cm Renetta ROJAS Work Phone: [facility] 05-31-2023 13:57-0400 Body mass index (BMI) [Ratio] 26.18 kg/m2 Renetta ROJAS Work Phone: [facility] 05-31-2023 13:57-0400 Body weight 87.54 kg Renetta ROJAS Work Phone: [facility] 05-31-2023 13:57-0400 Diastolic blood pressure 87 mm[Hg] Renetta ROJAS Work Phone: [facility] 05-31-2023 13:57-0400 Heart rate 104 /min Renetta Elizalde PA [facility] 05-31-2023 13:57-0400 Respiratory rate 18 /min Renetta ROJAS Work Phone: [facility] [employer] 05-31-2023 13:57-0400 SaO2% (BldA) [Mass fraction] 99 % Renetta ROJAS Work Phone: [facility] [employer] 05-31-2023 13:57-0400 Systolic blood pressure 131 mm[Hg] Renetta ROJAS Work Phone: [facility] [employer] [facility] 05-04-2023 11:44-0500 Body height 182.9 cm Jaswant Verhoff PA-C Work Phone: [facility] [employer] 05-04-2023 11:44-0500 Body mass index (BMI) [Ratio] 28.62 kg/m2 Jaswant Verhoff PA-C Work Phone: [facility] [employer] 05-04-2023 11:44-0500 Body weight 95.71 kg Jaswant Verhoff PA-C Work Phone: [facility] [employer] 05-04-2023 11:44-0500 Diastolic blood pressure 103 mm[Hg] Jaswant Verhoff PA-C Work Phone: [facility] [employer] 05-04-2023 11:44-0500 Heart rate 95 /min Jaswant Verhoff PA-C Work Phone: [facility] [employer] 05-04-2023 11:44-0500 Respiratory rate 16 /min Jaswant Verhoff PA-C Work Phone: [facility] [employer] [facility] 05-04-2023 11:44-0500 SaO2% (BldA) [Mass fraction] 100 % Jaswant Verhoff PA-C Work Phone: [facility] [employer] 05-04-2023 11:44-0500 Systolic blood pressure 145 mm[Hg] Jaswant Verhoff PA-C Work Phone: [facility] [employer] [facility] 03-21-2023 13:30-0500 Body height 188.59 cm Berenice Haile Other [facility] 03-21-2023 13:30-0500 Body mass index (BMI) [Ratio] 27.16 kg/m2 Berenice Howellacher Other [employer] [facility] [employer] Other 03-21-2023 13:30-0500 Body weight 96.62 kg Berenice Leslyrbacher Other [employer] [facility] [employer] Other 03-21-2023 13:30-0500 Body weight 96.61 kg [facility] 03-21-2023 13:30-0500 Diastolic blood pressure 80 mm[Hg] Berenice Howellacher Other [facility] 03-21-2023 13:30-0500 SaO2% (BldA) [Mass fraction] 100 % Berenice Howellacher Other [employer] [facility] [employer] Other 03-21-2023 13:30-0500 Systolic blood pressure 130 mm[Hg] Berenice Howellacher Other [facility] 02-23-2023 13:49-0500 Diastolic blood pressure 85 mm[Hg] HOME SALES CONSULTANTToño Gracerbacher Work Phone: [facility] 02-23-2023 13:49-0500 Heart rate 91 /min HOME SALES CONSULTANTToño Gracerbacher Work Phone: [facility] 02-23-2023 13:49-0500 Respiratory rate 16 /min HOME SALES CONSULTANTToño Gracerbacher Work Phone: [facility] 02-23-2023 13:49-0500 SaO2% (BldA) [Mass fraction] 100 % HOME SALES CONSULTANTToño Gracerbacher Work Phone: [facility] 02-23-2023 13:49-0500 Systolic blood pressure 128 mm[Hg] HOME SALES CONSULTANTToño Gracerbacher Work Phone: [facility] 02-23-2023 13:41-0500 Body weight 85.72 kg HOME SALES CONSULTANT Berenice Haile Work Phone: [facility] 12-13-2022 14:40-0400 Body height 188.59 cm Ladarius Pitts Other [employer] Other 12-13-2022 14:40-0400 Body mass index (BMI) [Ratio] 27.67 kg/m2 Ladarius Pitts Other [employer] Other 12-13-2022 14:40-0400 Body weight 98.43 kg Ladarius Pitts Other [employer] Other 12-13-2022 14:40-0400 Diastolic blood pressure 60 mm[Hg] Ladarius Pitts Other [employer] Other 12-13-2022 14:40-0400 Systolic blood pressure 109 mm[Hg] Ladarius Pitts Other [employer] Other 09-22-2022 14:30-0400 Body height 188.59 cm Berenice Haile Other [employer] Other 09-22-2022 14:30-0400 Body mass index (BMI) [Ratio] 27.67 kg/m2 Berenice Haile Other [employer] Other 09-22-2022 14:30-0400 Body weight 98.43 kg Berenice Haile Other [employer] Other 09-22-2022 14:30-0400 Diastolic blood pressure 70 mm[Hg] Berenice Haile Other [employer] Other 09-22-2022 14:30-0400 Systolic blood pressure 118 mm[Hg] Berenice Haile Other [employer] Other 01-19-2022 16:10-0500 Body height 188.59 cm Liz Billingsley Other [employer] Other 01-19-2022 16:10-0500 Body mass index (BMI) [Ratio] 23.72 kg/m2 Liz Billingsley Other [employer] Other 01-19-2022 16:10-0500 Body temperature 98.1 [degF] Liz Billingsley Other [employer] Other 01-19-2022 16:10-0500 Body weight 84.37 kg Liz Billingsley Other [employer] Other 01-19-2022 16:10-0500 Diastolic blood pressure 83 mm[Hg] Liz Billingsley Other [employer] Other 01-19-2022 16:10-0500 Respiratory rate 18 /min Liz Billingsley Other [employer] Other 01-19-2022 16:10-0500 SaO2% (BldA) [Mass fraction] 96 % Liz Billingsley Other [employer] Other 01-19-2022 16:10-0500 Systolic blood pressure 128 mm[Hg] Liz Billingsley Other [employer] Other 03-03-2021 16:00-0500 Body height 188.59 cm Agus Madera Other [employer] Other 03-03-2021 16:00-0500 Body mass index (BMI) [Ratio] 25.12 kg/m2 Agus Lafleurack Other [employer] Other 03-03-2021 16:00-0500 Body weight 89.36 kg Agus Madera Other [employer] Other 03-03-2021 16:00-0500 Diastolic blood pressure 72 mm[Hg] Agus Lafleurack Other [employer] Other 03-03-2021 16:00-0500 Systolic blood pressure 100 mm[Hg] Agus Lafleurack Other [employer] Other 12-27-2020 12:33-0400 Diastolic blood pressure 76 mm[Hg] Sai Hernandez MD Work Phone: [employer] Work Phone: 12-27-2020 12:33-0400 Heart rate 73 /min Sai Hernandez MD Work Phone: [employer] Work Phone: 12-27-2020 12:33-0400 Respiratory rate 14 /min Sai Hernandez MD Work Phone: [employer] Work Phone: 12-27-2020 12:33-0400 Systolic blood pressure 121 mm[Hg] Sai Hernandez MD Work Phone: [employer] Work Phone: 12-27-2020 08:22-0400 SaO2% (BldA) [Mass fraction] 98 % Sai Hernandez MD Work Phone: [employer] Work Phone: 12-27-2020 08:20-0400 Body temperature 97.59 [degF] Sai Hernandez MD [facility] Work Phone: 07-10-2020 15:40-0400 Body height 181.61 cm Rosana Alaniz CNP Work Phone: [facility] Work Phone: 07-10-2020 15:40-0400 Body mass index (BMI) [Ratio] 31.4 kg/m2 Rosana Alaniz CNP Work Phone: [facility] Work Phone: 07-10-2020 15:40-0400 Body surface area Derived from formula 2.24 m2 Rosana Alaniz CNP Work Phone: [facility] Work Phone: 07-10-2020 15:40-0400 Body temperature 95.8 [degF] Rosana Alaniz CNP Work Phone: [facility] Work Phone: 07-10-2020 15:40-0400 Body weight 103.51 kg Rosana Alaniz CNP Work Phone: [facility] Work Phone: 07-10-2020 15:40-0400 Diastolic blood pressure 68 mm[Hg] Rosana Alaniz CNP Work Phone: [facility] Work Phone: 07-10-2020 15:40-0400 Heart rate 88 /min Rosana Alaniz CNP Work Phone: [facility] Work Phone: 07-10-2020 15:40-0400 Respiratory rate 18 /min Rosana Alaniz CNP Work Phone: [facility] Work Phone: 07-10-2020 15:40-0400 SaO2% (BldA) [Mass fraction] 99 % Rosana Alaniz CNP Work Phone: [facility] Work Phone: 07-10-2020 15:40-0400 Systolic blood pressure 98 mm[Hg] Rosana Alaniz ALUMINUM MOLDING MACHINE OPERATOR Work Phone: [facility] Work Phone: 03-13-2020 11:26-0500 BMI (Body Mass Index) 33.7 kg/m2 [facility] Work [facility]: 03-13-2020 11:26-0500 Body weight 111.13 kg [facility] Work Phone: 03-13-2020 11:26-0500 BSA (Body Surface Area) 2.31 m2 [facility] Work Phone: 03-13-2020 11:26-0500 Height 181.61 cm [facility] Work Phone: 05-24-2019 13:37-0400 BP Diastolic 74 mm[Hg] [facility] Work Phone: 05-24-2019 13:37-0400 BP Systolic 110 mm[Hg] [facility] Work Phone: 05-24-2019 13:27-0400 BMI (Body Mass Index) 33.7 kg/m2 [facility] Work Phone: 05-24-2019 13:27-0400 Body Temperature 96.5 [degF] [facility] Work Phone: 05-24-2019 13:27-0400 Body weight 111.13 kg [facility] Work Phone: 05-24-2019 13:27-0400 BSA (Body Surface Area) 2.31 m2 [facility] Work Phone: 05-24-2019 13:27-0400 Height 181.61 cm [facility] Work Phone: 03-08-2019 13:42-0500 BMI (Body Mass Index) 32.4 kg/m2 [facility] Work Phone: 03-08-2019 13:42-0500 Body weight 106.78 kg [facility] Work Phone: 03-08-2019 13:42-0500 BP Diastolic 78 mm[Hg] [facility] Work Phone: 03-08-2019 13:42-0500 BP Systolic 90 mm[Hg] [facility] Work Phone: 03-08-2019 13:42-0500 BSA (Body Surface Area) 2.27 m2 [facility] Work Phone: 03-08-2019 13:42-0500 Height 181.61 cm [facility] Work Phone: 03-08-2019 13:42-0500 Pulse (Heart Rate) 89 /min [facility] Work Phone: 03-08-2019 13:42-0500 Pulse Oximetry 98 % [facility] Work Phone: 02-20-2019 13:50-0500 BMI (Body Mass Index) 34.5 kg/m2 [facility] Work Phone: 02-20-2019 13:50-0500 Body Temperature 99.1 [degF] [facility] Work Phone: 02-20-2019 13:50-0500 Body weight 113.94 kg [facility] Work Phone: 02-20-2019 13:50-0500 BP Diastolic 70 mm[Hg] [facility] Work Phone: 02-20-2019 13:50-0500 BP Systolic 110 mm[Hg] [facility] Work Phone: 02-20-2019 13:50-0500 BSA (Body Surface Area) 2.34 m2 [facility] Work Phone: 02-20-2019 13:50-0500 Height 181.61 cm [facility] Work Phone: 02-20-2019 13:50-0500 Pulse (Heart Rate) 99 /min [facility] Work Phone: 02-20-2019 13:50-0500 Pulse Oximetry 100 % [facility] Work Phone: 02-20-2019 13:50-0500 Respiratory Rate 18 /min [facility] Work Phone: 01-29-2019 15:45-0500 BP Diastolic 59 mm[Hg] [place], [place] 01-29-2019 15:45-0500 BP Systolic 94 mm[Hg] [place] 01-29-2019 15:45-0500 Pulse (Heart Rate) 69 /min [place], [place] 01-29-2019 15:45-0500 Pulse Oximetry 98 % [place] 01-29-2019 15:45-0500 Respiratory Rate 13 /min [place], [place] 01-29-2019 12:25-0500 BMI (Body Mass Index) 29.03 kg/m2 [place] 01-29-2019 12:25-0500 Body Temperature 97.39 [degF] [place], [place] 01-29-2019 12:25-0500 Body weight 99.79 kg [place], [place] 01-29-2019 12:25-0500 Height 185.4 cm [place], [place] 2019 14:08-0500 Body Temperature 98.1 [degF] [facility] [place] [facility] 14:08-0500 BP Diastolic 86 mm[Hg] [facility] [place] [facility] 14:08-0500 BP Systolic 115 mm[Hg] [facility] [place] 2019 14:08-0500 Pulse (Heart Rate) 95 /min [facility] [place] [facility] 14:08-0500 Pulse Oximetry 99 % Sourav [facility] , [place] 2019 14:08-0500 Respiratory Rate 16 /min [facility] [place] 01-04-2019 08:20-0400 BMI (Body Mass Index) 31.8 kg/m2 [facility] Work Phone: 01-04-2019 08:20-0400 Body Temperature 96.1 [degF] [facility] Work Phone: 01-04-2019 08:20-0400 Body weight 104.78 kg [facility] Work Phone: 01-04-2019 08:20-0400 BP Diastolic 80 mm[Hg] [facility] Work Phone: 01-04-2019 08:20-0400 BP Systolic 106 mm[Hg] [facility] Work Phone: 01-04-2019 08:20-0400 BSA (Body Surface Area) 2.25 m2 [facility] Work Phone: 01-04-2019 08:20-0400 Height 181.61 cm [facility] Work Phone: 01-04-2019 08:20-0400 Pulse (Heart Rate) 69 /min [facility] Work Phone: 01-04-2019 08:20-0400 Pulse Oximetry 98 % [facility] Work Phone: 01-04-2019 08:20-0400 Respiratory Rate 18 /min [facility] Work Phone: 01-03-2019 18:41-0400 BP Diastolic 74 mm[Hg] Elayne Hurley [facility], [place] 01-03-2019 18:41-0400 BP Systolic 90 mm[Hg] Elayne Hurley [facility], [place] 01-03-2019 18:40-0400 Pulse Oximetry 95 % Elayne Hurley [facility], [place] 01-03-2019 13:42-0400 BMI (Body Mass Index) 31.33 kg/m2 Elayne Hurley [facility], [place] 01-03-2019 13:42-0400 Body Temperature 98.01 [degF] Elayne Nazario [facility], [place] 01-03-2019 13:42-0400 Body weight 104.78 kg Elayne Hurley [facility], [place] 01-03-2019 13:42-0400 Pulse (Heart Rate) 71 /min Elayne Nazario [facility], [place] 01-03-2019 13:42-0400 Respiratory Rate 16 /min Elayne Nazario [facility], [place] 11-20-2018 11:37-0400 BMI (Body Mass Index) 34.8 kg/m2 [facility] Work Phone: 11-20-2018 11:37-0400 Body Temperature 95.4 [degF] [facility] Work Phone: 11-20-2018 11:37-0400 Body weight 114.94 kg [facility] Work Phone: 11-20-2018 11:37-0400 BP Diastolic 80 mm[Hg] [facility] Work Phone: 11-20-2018 11:37-0400 BP Systolic 104 mm[Hg] [facility] Work Phone: 11-20-2018 11:37-0400 BSA (Body Surface Area) 2.34 m2 [facility] Work Phone: 11-20-2018 11:37-0400 Height 181.61 cm [facility] Work Phone: 11-20-2018 11:37-0400 Pulse (Heart Rate) 95 /min [facility] Work Phone: 11-20-2018 11:37-0400 Pulse Oximetry 98 % [facility] Work Phone: 11-20-2018 11:37-0400 Respiratory Rate 18 /min [facility] Work Phone: 11-14-2018 16:21-0400 BMI (Body Mass Index) 34.18 kg/m2 [facility], [place] 11-14-2018 16:21-0400 Body Temperature 99.19 [degF] [facility], [place] 11-14-2018 16:21-0400 Body weight 114.31 kg [facility] , [place] 11-14-2018 16:21-0400 BP Diastolic 63 mm[Hg] [facility] , [place] 11-14-2018 16:21-0400 BP Systolic 108 mm[Hg] [facility] , [place] 11-14-2018 16:21-0400 Pulse (Heart Rate) 87 /min [facility], [place] 11-14-2018 16:21-0400 Pulse Oximetry 99 % [facility] , [place] 11-14-2018 16:21-0400 Respiratory Rate 19 /min [facility] [place] [place] 10-15-2018 09:11-0400 BMI (Body Mass Index) 30.11 kg/m2 [facility], [place] 10-15-2018 09:11-0400 Body Temperature 97.5 [degF] [facility], [place] 10-15-2018 09:11-0400 Body weight 100.[address] [facility] , [place] 10-15-2018 09:11-0400 BP Diastolic 80 mm[Hg] [facility] [place] 10-15-2018 09:11-0400 BP Systolic 122 mm[Hg] [facility] [place] 10-15-2018 09:11-0400 Height 182.9 cm Jennifer [facility] , [place] 10-15-2018 09:11-0400 Pulse (Heart Rate) 91 /min Jennifer [facility]man [facility], [place] 10-15-2018 09:11-0400 Pulse Oximetry 100 % Jennifer [facility] , [place] 10-15-2018 09:11-0400 Respiratory Rate 16 /min Jennifer [facility] [place] 06-15-2018 15:01-0400 Pulse (Heart Rate) 103 /min [facility] Work Phone: 06-15-2018 15:01-0400 Pulse Oximetry 98 % [facility] Work Phone: 06-15-2018 14:58-0400 BMI (Body Mass Index) 33.7 kg/m2 [facility] Work Phone: 06-15-2018 14:58-0400 Body Temperature 97.1 [degF] [facility] Work Phone: 06-15-2018 14:58-0400 Body weight 111.31 kg [facility] Work Phone: 06-15-2018 14:58-0400 BP Diastolic 86 mm[Hg] [facility] Work Phone: 06-15-2018 14:58-0400 BP Systolic 126 mm[Hg] [facility] Work Phone: 06-15-2018 14:58-0400 BSA (Body Surface Area) 2.31 m2 [facility] Work Phone: 06-15-2018 14:58-0400 Height 181.61 cm [facility] Work [facility]: 06-15-2018 14:58-0400 Pulse (Heart Rate) 18 /min Rosana Katty [facility] Work Phone: 06-15-2018 14:58-0400 Respiratory Rate 18 /min [facility] Work Phone: 02-16-2018 13:28-0500 BMI (Body Mass Index) 33.99 kg/m2 [facility] 02-16-2018 13:28-0500 Body Temperature 98.3 [degF] [facility] 02-16-2018 13:28-0500 BP Diastolic 65 mm[Hg] [facility] 02-16-2018 13:28-0500 BP Systolic 92 mm[Hg] [facility] 02-16-2018 13:28-0500 BSA (Body Surface Area) 2.38 m2 [facility] 02-16-2018 13:28-0500 Height 181.61 cm [facility] 02-16-2018 13:28-0500 Pulse (Heart Rate) 110 /min [facility] 02-16-2018 13:28-0500 Pulse Oximetry 99 % [facility] 02-16-2018 13:28-0500 Respiratory Rate 18 /min [facility] 02-16-2018 13:28-0500 Weight 112.12 kg [facility] 02-16-2018 11:28-0500 BMI (Body Mass Index) 34 kg/m2 [facility] Work Phone: 02-16-2018 11:28-0500 Body Temperature 98.3 [degF] [facility] Work Phone: 02-16-2018 11:28-0500 Body weight 112.04 kg [facility] Work Phone: 02-16-2018 11:28-0500 Body weight 112.12 kg [facility] Work Phone: 02-16-2018 11:28-0500 BP Diastolic 65 mm[Hg] [facility] Work Phone: 02-16-2018 11:28-0500 BP Systolic 92 mm[Hg] [facility] Work Phone: 02-16-2018 11:28-0500 BSA (Body Surface Area) 2.32 m2 [facility] Work Phone: 02-16-2018 11:28-0500 Height 181.61 cm [facility] Work Phone: 02-16-2018 11:28-0500 Pulse (Heart Rate) 110 /min [facility] Work Phone: 02-16-2018 11:28-0500 Respiratory Rate 18 /min [facility] Work Phone: 11-24-2017 14:14-0400 BMI (Body Mass Index) 32.32 kg/m2 [facility] 11-24-2017 14:14-0400 Body Temperature 97.4 [degF] [facility] 11-24-2017 14:14-0400 BP Diastolic 80 mm[Hg] [facility] 11-24-2017 14:14-0400 BP Systolic 126 mm[Hg] [facility] 11-24-2017 14:14-0400 BSA (Body Surface Area) 2.32 m2 [facility] 11-24-2017 14:14-0400 Height 181.61 cm [facility] 11-24-2017 14:14-0400 Pulse (Heart Rate) 104 /min [facility] 11-24-2017 14:14-0400 Pulse Oximetry 97 % [facility] 11-24-2017 14:14-0400 Respiratory Rate 20 /min [facility] 11-24-2017 14:14-0400 Weight 106.6 kg [facility] 11-24-2017 13:14-0400 BMI (Body Mass Index) 32.32 kg/m2 [facility] 11-24-2017 13:14-0400 Body Temperature 97.4 [degF] [facility] 11-24-2017 13:14-0400 BP Diastolic 80 mm[Hg] [facility] 11-24-2017 13:14-0400 BP Systolic 126 mm[Hg] [facility] 11-24-2017 13:14-0400 BSA (Body Surface Area) 2.32 m2 [facility] 11-24-2017 13:14-0400 Height 181.61 cm [facility] 11-24-2017 13:14-0400 Pulse (Heart Rate) 104 /min [facility] 11-24-2017 13:14-0400 Pulse Oximetry 97 % [facility] 11-24-2017 13:14-0400 Respiratory Rate 20 /min [facility] 11-24-2017 13:14-0400 Weight 106.6 kg [facility] 11-24-2017 11:14-0400 BMI (Body Mass Index) 32.3 kg/m2 [facility] Work Phone: 11-24-2017 11:14-0400 Body Temperature 97.4 [degF] [facility] Work Phone: 11-24-2017 11:14-0400 Body weight 106.6 kg [facility] Work Phone: 11-24-2017 11:14-0400 BP Diastolic 80 mm[Hg] [facility] Work Phone: 11-24-2017 11:14-0400 BP Systolic 126 mm[Hg] [facility] Work Phone: 11-24-2017 11:14-0400 BSA (Body Surface Area) 2.27 m2 [facility] Work Phone: 11-24-2017 11:14-0400 Height 181.61 cm [facility] Work Phone: 11-24-2017 11:14-0400 Pulse (Heart Rate) 104 /min [facility] Work Phone: 11-24-2017 11:14-0400 Respiratory Rate 20 /min [facility] Work Phone: 08-16-2017 14:15-0400 BMI (Body Mass Index) 30.7 kg/m2 [facility] 08-16-2017 14:15-0400 Body Temperature 97.2 [degF] [facility] 08-16-2017 14:15-0400 BP Diastolic 72 mm[Hg] [facility] 08-16-2017 14:15-0400 BP Systolic 118 mm[Hg] [facility] 08-16-2017 14:15-0400 BSA (Body Surface Area) 2.26 m2 [facility] 08-16-2017 14:15-0400 Height 181.61 cm [facility] 08-16-2017 14:15-0400 Pulse (Heart Rate) 88 /min [facility] 08-16-2017 14:15-0400 Pulse Oximetry 100 % [facility] 08-16-2017 14:15-0400 Respiratory Rate 18 /min [facility] 08-16-2017 14:15-0400 Weight 101.27 kg [facility] 08-16-2017 13:15-0400 BMI (Body Mass Index) 30.7 kg/m2 [facility] 08-16-2017 13:15-0400 Body Temperature 97.2 [degF] [facility] 08-16-2017 13:15-0400 BP Diastolic 72 mm[Hg] [facility] 08-16-2017 13:15-0400 BP Systolic 118 mm[Hg] [facility] 08-16-2017 13:15-0400 BSA (Body Surface Area) 2.26 m2 [facility] 08-16-2017 13:15-0400 Height 181.61 cm [facility] 08-16-2017 13:15-0400 Pulse (Heart Rate) 88 /min [facility] 08-16-2017 13:15-0400 Pulse Oximetry 100 % [facility] 08-16-2017 13:15-0400 Respiratory Rate 18 /min [facility] 08-16-2017 13:15-0400 Weight 101.27 kg [facility] 05-26-2017 14:14-0400 BMI (Body Mass Index) 29.57 kg/m2 [facility] 05-26-2017 14:14-0400 Body Temperature 97.5 [degF] [facility] 05-26-2017 14:14-0400 BP Diastolic 72 mm[Hg] [facility] 05-26-2017 14:14-0400 BP Systolic 118 mm[Hg] [facility] 05-26-2017 14:14-0400 BSA (Body Surface Area) 2.22 m2 [facility] 05-26-2017 14:14-0400 Height 181.61 cm [facility] 05-26-2017 14:14-0400 Pulse (Heart Rate) 100 /min [facility] 05-26-2017 14:14-0400 Pulse Oximetry 98 % [facility] 05-26-2017 14:14-0400 Respiratory Rate 20 /min [facility] 05-26-2017 14:14-0400 Weight 97.52 kg [facility] 05-26-2017 13:14-0400 BMI (Body Mass Index) 29.57 kg/m2 [facility] 05-26-2017 13:14-0400 Body Temperature 97.5 [degF] [facility] 05-26-2017 13:14-0400 BP Diastolic 72 mm[Hg] [facility] 05-26-2017 13:14-0400 BP Systolic 118 mm[Hg] [facility] 05-26-2017 13:14-0400 BSA (Body Surface Area) 2.22 m2 [facility] 05-26-2017 13:14-0400 Height 181.61 cm [facility] 05-26-2017 13:14-0400 Pulse (Heart Rate) 100 /min [facility] 05-26-2017 13:14-0400 Pulse Oximetry 98 % [facility] 05-26-2017 13:14-0400 Respiratory Rate 20 /min [facility] 05-26-2017 13:14-0400 Weight 97.52 kg [facility] 03-29-2017 15:24-0500 BMI (Body Mass Index) 27.69 kg/m2 [facility] 03-29-2017 15:24-0500 Body Temperature 97.5 [degF] [facility] 03-29-2017 15:24-0500 BP Diastolic 80 mm[Hg] [facility] 03-29-2017 15:24-0500 BP Systolic 109 mm[Hg] [facility] 03-29-2017 15:24-0500 BSA (Body Surface Area) 2.15 m2 [facility] 03-29-2017 15:24-0500 Height 181.61 cm [facility] 03-29-2017 15:24-0500 Pulse (Heart Rate) 87 /min [facility] 03-29-2017 15:24-0500 Pulse Oximetry 98 % [facility] 03-29-2017 15:24-0500 Respiratory Rate 18 /min [facility] 03-29-2017 15:24-0500 Weight 91.32 kg [facility] 03-29-2017 14:24-0500 BMI (Body Mass Index) 27.69 kg/m2 [facility] 03-29-2017 14:24-0500 Body Temperature 97.5 [degF] [facility] 03-29-2017 14:24-0500 BP Diastolic 80 mm[Hg] [facility] 03-29-2017 14:24-0500 BP Systolic 109 mm[Hg] [facility] 03-29-2017 14:24-0500 BSA (Body Surface Area) 2.15 m2 [facility] 03-29-2017 14:24-0500 Height 181.61 cm [facility] 03-29-2017 14:24-0500 Pulse (Heart Rate) 87 /min [facility] 03-29-2017 14:24-0500 Pulse Oximetry 98 % [facility] 03-29-2017 14:24-0500 Respiratory Rate 18 /min [facility] 03-29-2017 14:24-0500 Weight 91.32 kg [facility] 02-22-2017 17:03-0500 BMI (Body Mass Index) 26.41 kg/m2 [facility] 02-22-2017 17:03-0500 Body Temperature 98 [degF] [facility] 02-22-2017 17:03-0500 BP Diastolic 87 mm[Hg] [facility] 02-22-2017 17:03-0500 BP Systolic 130 mm[Hg] [facility] 02-22-2017 17:03-0500 BSA (Body Surface Area) 2.1 m2 [facility] 02-22-2017 17:03-0500 Height 181.61 cm [facility] 02-22-2017 17:03-0500 Pulse (Heart Rate) 88 /min [facility] 02-22-2017 17:03-0500 Pulse Oximetry 100 % [facility] 02-22-2017 17:03-0500 Respiratory Rate 20 /min [facility] 02-22-2017 17:03-0500 Weight 87.09 kg [facility] 02-22-2017 16:03-0500 BMI (Body Mass Index) 26.41 kg/m2 [facility] 02-22-2017 16:03-0500 Body Temperature 98 [degF] [facility] 02-22-2017 16:03-0500 BP Diastolic 87 mm[Hg] [facility] 02-22-2017 16:03-0500 BP Systolic 130 mm[Hg] [facility] 02-22-2017 16:03-0500 BSA (Body Surface Area) 2.1 m2 [facility] 02-22-2017 16:03-0500 Height 181.61 cm [facility] 02-22-2017 16:03-0500 Pulse (Heart Rate) 88 /min [facility] 02-22-2017 16:03-0500 Pulse Oximetry 100 % [facility] 02-22-2017 16:03-0500 Respiratory Rate 20 /min [facility] 02-22-2017 16:03-0500 Weight 87.09 kg [facility] 02-01-2017 16:59-0500 BMI (Body Mass Index) 27.23 kg/m2 [facility] 02-01-2017 16:59-0500 Body Temperature 98.1 [degF] [facility] 02-01-2017 16:59-0500 BP Diastolic 81 mm[Hg] [facility] 02-01-2017 16:59-0500 BP Systolic 132 mm[Hg] [facility] 02-01-2017 16:59-0500 BSA (Body Surface Area) 2.13 m2 [facility] 02-01-2017 16:59-0500 Height 181.61 cm [facility] 02-01-2017 16:59-0500 Pulse (Heart Rate) 83 /min [facility] 02-01-2017 16:59-0500 Pulse Oximetry 94 % [facility] 02-01-2017 16:59-0500 Respiratory Rate 18 /min [facility] 02-01-2017 16:59-0500 Weight 89.81 kg [facility] 02-01-2017 15:59-0500 BMI (Body Mass Index) 27.23 kg/m2 [facility] 02-01-2017 15:59-0500 Body Temperature 98.1 [degF] [facility] 02-01-2017 15:59-0500 BP Diastolic 81 mm[Hg] [facility] 02-01-2017 15:59-0500 BP Systolic 132 mm[Hg] [facility] 02-01-2017 15:59-0500 BSA (Body Surface Area) 2.13 m2 [facility] 02-01-2017 15:59-0500 Height 181.61 cm [facility] 02-01-2017 15:59-0500 Pulse (Heart Rate) 83 /min [facility] 02-01-2017 15:59-0500 Pulse Oximetry 94 % [facility] 02-01-2017 15:59-0500 Respiratory Rate 18 /min [facility] 02-01-2017 15:59-0500 Weight 89.81 kg [facility] 01-06-2017 17:29-0400 BMI (Body Mass Index) 26.41 kg/m2 [facility] 01-06-2017 17:29-0400 Body Temperature 97.9 [degF] [facility] 01-06-2017 17:29-0400 BP Diastolic 81 mm[Hg] [facility] 01-06-2017 17:29-0400 BP Systolic 130 mm[Hg] [facility] 01-06-2017 17:29-0400 BSA (Body Surface Area) 2.1 m2 [facility] 01-06-2017 17:29-0400 Height 181.61 cm [facility] 01-06-2017 17:29-0400 Pulse (Heart Rate) 90 /min [facility] [employer] [facility] 01-06-2017 17:29-0400 Pulse Oximetry 98 % [facility] 01-06-2017 17:29-0400 Respiratory Rate 18 /min [facility] 01-06-2017 17:29-0400 Weight 87.09 kg [facility] 01-06-2017 16:29-0400 BMI (Body Mass Index) 26.41 kg/m2 [facility] 01-06-2017 16:29-0400 Body Temperature 97.9 [degF] [facility] 01-06-2017 16:29-0400 BP Diastolic 81 mm[Hg] [facility] 01-06-2017 16:29-0400 BP Systolic 130 mm[Hg] [facility] 01-06-2017 16:29-0400 BSA (Body Surface Area) 2.1 m2 [facility] 01-06-2017 16:29-0400 Height 181.61 cm [facility] 01-06-2017 16:29-0400 Pulse (Heart Rate) 90 /min [facility] 01-06-2017 16:29-0400 Pulse Oximetry 98 % [facility] 01-06-2017 16:29-0400 Respiratory Rate 18 /min [facility] 01-06-2017 16:29-0400 Weight 87.09 kg [facility] 12-09-2016 17:31-0400 BMI (Body Mass Index) 26.97 kg/m2 [facility] 12-09-2016 17:31-0400 Body Temperature 99 [degF] [facility] 12-09-2016 17:31-0400 BP Diastolic 62 mm[Hg] [facility] 12-09-2016 17:31-0400 BP Systolic 98 mm[Hg] [facility] 12-09-2016 17:31-0400 BSA (Body Surface Area) 2.12 m2 [facility] 12-09-2016 17:31-0400 Height 181.61 cm [facility] 12-09-2016 17:31-0400 Pulse (Heart Rate) 110 /min [facility] 12-09-2016 17:31-0400 Pulse Oximetry 98 % [facility] 12-09-2016 17:31-0400 Respiratory Rate 18 /min [facility] 12-09-2016 17:31-0400 Weight 88.96 kg [facility] 12-09-2016 16:31-0400 BMI (Body Mass Index) 26.97 kg/m2 [facility] 12-09-2016 16:31-0400 Body Temperature 99 [degF] [facility] 12-09-2016 16:31-0400 BP Diastolic 62 mm[Hg] [facility] 12-09-2016 16:31-0400 BP Systolic 98 mm[Hg] [facility] 12-09-2016 16:31-0400 BSA (Body Surface Area) 2.12 m2 [facility] 12-09-2016 16:31-0400 Height 181.61 cm [facility] 12-09-2016 16:31-0400 Pulse (Heart Rate) 110 /min [facility] 12-09-2016 16:31-0400 Pulse Oximetry 98 % [facility] 12-09-2016 16:31-0400 Respiratory Rate 18 /min [facility] 12-09-2016 16:31-0400 Weight 88.96 kg [facility] Encounters Encounter Date Encounter Type Care Provider Facility Start: 10-25-2023 End: 10-25-2023 ambulatory CARLITITUS ELIZALDE [facility] Start: 10-06-2023 End: 10-06-2023 ambulatory [facility] Work Phone: Start: 10-06-2023 End: 10-06-2023 Patient encounter procedure [facility] Work Phone: Start: 09-19-2023 End: 09-19-2023 ambulatory BLAKE COREA Not Available Start: 09-15-2023 End: 09-15-2023 ambulatory [facility] Start: 08-26-2023 End: 08-26-2023 ambulatory [facility] Start: 08-20-2023 End: 08-20-2023 ambulatory DECLAN MONK [facility] Start: 08-19-2023 End: 08-19-2023 ambulatory ANUP BUTLER [facility] Start: 08-15-2023 Non-patient / Non-visit [facility] Work Phone: Start: 08-15-2023 End: 08-15-2023 ambulatory BLAKE COREA Not Available Start: 06-15-2023 End: 06-15-2023 Emergency department patient visit Berenice Haile Facility:[facility] Start: 06-15-2023 End: 06-15-2023 Emergency department patient visit HOME SALES CONSULTANT Berenicemaria guadalupe Haile Work Phone: [facility] Work Phone: Start: 06-01-2023 End: 06-02-2023 Emergency department patient visit KYLAH AMADO [facility] Start: 05-31-2023 Jason Nicolas MD Work Phone: [facility] Rhe[facility] Start: 05-31-2023 End: 05-31-2023 Office outpatient visit 15 minutes Renetta ROJAS Work Phone: [facility] Comment on above: Lumbar radiculopathy (Primary Dx) Start: 05-31-2023 End: 05-31-2023 ambulatory RENETTA ELIZALDE [facility] Start: 05-26-2023 End: 05-26-2023 ambulatory [facility] Work Phone: Start: 05-26-2023 End: 05-26-2023 Patient encounter procedure [facility] Physician [facility] Work Phone: Start: 05-14-2023 End: 05-14-2023 ambulatory BERENICE HAILE [facility] Start: 05-13-2023 End: 05-13-2023 ambulatory ANUP BUTLER [facility] Start: 05-10-2023 Telephone encounter Ana Pichardo [facility] Pulmonary/Sleep Medicine Start: 05-04-2023 End: 05-04-2023 ambulatory JASWANT HUSSEIN [facility] Start: 05-04-2023 End: 05-04-2023 Office outpatient visit 25 minutes Renetta ROJAS Work Phone: [facility] Comment on above: Lumbar radiculopathy (Primary Dx); Spinal stenosis of lumbar region with neurogenic claudication Start: 04-28-2023 Non-patient / Non-visit [facility] Work Phone: Start: 04-27-2023 Refill Cady Sifuentes [facility] Start: 04-21-2023 Telephone encounter Saida [facility] Start: 04-19-2023 Non-patient / Non-visit [facility] Work Phone: Start: 04-18-2023 End: 04-18-2023 ambulatory Berenice Haile Other [facility] [employer] Other Start: 04-18-2023 Telephone encounter Berenice Marsh [facility] Start: 04-11-2023 Encounter for genera l adult medical examination without abnormal findings JASWANTToño HUSSEIN [facility] Start: 04-11-2023 Clinisync Result Encounter Blake Anmol DO Work Phone: [facility] External Department Unsolicited Start: 04-11-2023 External Result Encounter Blake Anmol DO Work Phone: [facility] External Department Unsolicited Start: 04-11-2023 External Result Encounter Blake Anmol DO Work Phone: [facility] External Department Unsolicited Start: 04-11-2023 End: 04-11-2023 ambulatory BLAKE ANMOL Not Available Start: 03-30-2023 Orders Only Johana hansen APRN-ALUMINUM MOLDING MACHINE OPERATOR Work Phone: [facility] NeuroSurgery Comment on above: Bilateral leg pain ( Primary Dx); Herniated lumbar intervertebral disc; S/P lumbar fusion; Lumbar foraminal stenosis Start: 03-21-2023 End: 03-21-2023 ambulatory Berenice Haile Other [employer] Other Start: 03-21-2023 Office outpatient vi sit 25 minutes Berenice Haile [facility] Start: 03-21-2023 End: 03-21-2023 Patient encounter procedure [facility] Work Phone: Start: 03-17-2023 End: 03-17-2023 ambulatory Berenice Lazara Other [employer] Other Start: 03-17-2023 Telephone encounter Berenice Marsh her [facility] Start: 03-16-2023 Orders Only Johana hansen HOME SALES CONSULTANT-ALUMINUM MOLDING MACHINE OPERATOR Work Phone: [facility] Comment on above: S/P lumbar fusion Start: 03-02-2023 ambulatory BERENICE HAILE [facility] Start: 02-23-2023 End: 02-23-2023 ambulatory Lola Montgomery Facility:[facility] Start: 02-23-2023 End: 02-23-2023 ambulatory GENOVEVA Haile Work Phone: [facility] Work Phone: Start: 02-23-2023 End: 02-23-2023 Patient encounter procedure GENOVEVA Berenice Lazara Work Phone: [facility] [place] Work Phone: Start: 01-17-2023 End: 01-17-2023 ambulatory RENETTA PASTOR Not Available Start: 12-22-2022 End: 12-22-2022 ambulatory Ladarius Pitts Other [employer] Other Start: 12-22-2022 Telephone encounter Ladarius Marrero [employer] Working Inspector Start: 12-13-2022 End: 12-13-2022 ambulatory Ladarius Pitts Facility:[facility] Start: 12-13-2022 End: 12-13-2022 Patient encounter procedure PHYSICIAN NO [facility] [place] Work Phone: Start: 12-13-2022 End: 12-13-2022 ambulatory PHYSICIAN NO [facility] Work Phone: Start: 12-13-2022 Office outpatient ne w 30 minutes Ladarius Pitts [facility] Start: 12-06-2022 End: 12-06-2022 ambulatory Berenice Haile Other [employer] Other Start: 12-06-2022 Telephone encounter Berenice Marsh her [facility] Start: 11-22-2022 End: 11-22-2022 ambulatory Berenice Haile Other [employer] Other Start: 11-22-2022 Telephone encounter Berenice Marsh her [facility] Cold Working Inspector Start: 11-02-2022 End: 11-02-2022 ambulatory Berenice Haile Other [employer] Other Start: 11-02-2022 Telephone encounter Berenice Marsh her [facility] Cold Working Inspector Start: 09-22-2022 End: 09-22-2022 Departed [employer] HOME SALES CONSULTANT Berenice Haile Work Phone: [facility] [place] Work Phone: Start: 09-22-2022 End: 09-22-2022 ambulatory Berenice Haile [facility] Work Phone: Start: 09-22-2022 Office outpatient ne w 30 minutes Berenice Haile [facility] Start: 09-08-2022 End: 09-08-2022 Emergency department patient visit [facility] Start: 05-24-2022 End: 05-24-[address] LESLEY LINDSEY . Facility:[facility] Start: 01-21-2022 End: 01-21-2022 ambulatory IRINA GRISSOM Facility:[facility] Start: 01-19-2022 End: 01-19-2022 ambulatory Liz Billingsley Other [employer] Other Start: 01-19-2022 Office outpatient vi sit 15 minutes Liz Billingsley [facility] Start: 10-08-[address] Arthur MADERA Facili ty:[facility] Start: 08-31-2021 End: 08-31-2021 ambulatory Agus Madera Other [employer] Other Start: 08-31-2021 Telephone encounter Agus ramirez [facility] Start: 08-06-2021 End: 08-07-2021 ambulatory IRINA GRIFFITHREECE Facility:[facility] Start: 07-01-2021 End: 07-01-2021 ambulatory Agus Madera Other [employer] Other Start: 07-01-2021 Telephone encounter Agus ramirez [facility] Start: 03-03-2021 End: 03-03-2021 ambulatory Agus Madera Other [employer] Other Start: 03-03-2021 Office outpatient ne w 45 minutes Agus Madera [facility] Start: 12-27-2020 End: 12-27-2020 Emergency department patient visit Sai Hernandez MD Work Phone: [facility] Comment on above: Substance abuse (HCC ) (Primary Dx) Start: 07-10-2020 End: 07-10-2020 FQHC visit, estab pt Li UDARTE Work Phone: [facility] Work Phone: Start: 07-10-2020 End: 07-10-2020 FQHC visit, estab pt Li Sutherland LISDAWNA Work Phone: [facility] Work Phone: Start: 07-10-2020 End: 07-10-2020 General Megan Lylareal AREVALO Work Phone: [facility] Work Phone: Start: 09-05-2019 End: 09-06-2019 ambulatory ROSANA ALANIZ Facility:[facility] Start: 07-16-2019 End: 07-16-2019 Nursing evaluation of patient and report Susan Em Work Phone: [facility] Work Phone: Start: 07-16-2019 End: 07-16-2019 Patient encounter procedure Rosana Alaniz Work Phone: [facility] Work Phone: Start: 07-16-2019 End: 03-13-2020 Patient encounter procedure Liisrael Sutherland Work Phone: [facility] Work Phone: Start: 07-16-2019 End: 03-13-2020 Telemedicine consultation with patient Rosana Alaniz Work Phone: [facility] Work Phone: Start: 07-04-2019 End: 07-04-2019 Telemedicine consultation with patient Rosana Alaniz Work Phone: [facility] Work Phone: Start: 06-01-2019 End: 06-01-2019 Patient encounter procedure Li Sutherland Work Phone: [facility] Work Phone: Start: 06-01-2019 End: 06-01-2019 Telemedicine consultation with patient Rosana Alaniz Work Phone: [facility] Work Phone: Start: 05-24-2019 End: 05-24-2019 Established patient Rosana Alaniz Work Phone: [facility] Work Phone: Start: 03-08-2019 End: 03-08-2019 ambulatory Rosanaray Alaniz Work Phone: [facility] Work Phone: Start: 02-20-2019 End: 02-20-2019 Established patient Uday Hansen Work Phone: [facility] Work Phone: Start: 02-20-2019 End: 02-20-2019 Established patient Rosana Alaniz Work Phone: [facility] Work Phone: Start: 02-06-2019 End: 02-06-2019 Patient encounter procedure Rosana Alaniz Work Phone: [facility] Work Phone: Start: 01-29-2019 End: 01-29-2019 [facility] Start: 01-29-2019 End: 01-29-2019 Emergency department patient visit Waylon Montoya Work Phone: [facility] Comment on above: Accidental overdose of heroin, initial encounter (HCC) (Primary Dx) Start: 2019 End: 2019 Emergency department patient visit Sourav Loc Baird Work Phone: [facility] Comment on above: Sciatica of left ramin e (Primary Dx); Closed fracture of right foot, initial encounter Start: 01-04-2019 End: 01-04-2019 Established patient Primitivo Lujan Work Phone: [facility] Work Phone: Start: 01-03-2019 End: 01-03-2019 Emergency department patient visit Elayne Hurley [facility] ED Comment on above: Herniated interverte bral disc of lumbar spine (Primary Dx); Neuropathy Start: 11-20-2018 End: 11-20-2018 Established patient Rosana Alaniz Work Phone: [facility] Work Phone: Start: 11-14-2018 End: 11-14-2018 Emergency department patient visit Marco A Jia Work Phone: [facility] ED Comment on above: Bilateral lower extr emity edema (Primary Dx); Transaminitis; Impetigo Start: 11-14-2018 End: 11-14-2018 Subsequent hospital visit by physician [facility] Start: 11-14-2018 End: 11-16-2018 Subsequent hospital visit by physician Nelda [facility] Comment on above: Pain of left calf Start: 10-26-2018 End: 10-26-2018 Patient encounter procedure Rosana Alaniz Work Phone: [facility] Work Phone: Start: 10-25-2018 End: 10-25-2018 Patient encounter procedure Primitivo Lujan Work Phone: [facility] Work Phone: Start: 10-15-2018 End: 10-15-2018 Emergency department patient visit JENNIFER WHALEY [facility] Start: 10-15-2018 End: 10-15-2018 Emergency department patient visit Jennifer Whaley Work Phone: [facility] ED Comment on above: Injury of left foot, initial encounter (Primary Dx) Start: 08-31-2018 End: 08-31-2018 Patient encounter procedure Rosana Alaniz Work Phone: [facility] Work Phone: Start: 06-15-2018 End: 06-15-2018 Established patient Rosana Katty Work Phone: [facility] Work Phone: Start: 06-01-2018 End: 06-01-2018 Patient encounter procedure Rosana Alaniz Work Phone: [facility] Work Phone: Start: 04-24-2018 End: 04-24-2018 Patient encounter procedure Rosana Alaniz Work Phone: [facility] Work Phone: Start: 04-06-2018 End: 04-06-2018 Patient encounter procedure Rosana Alaniz Work Phone: [facility] Work Phone: Start: 02-16-2018 Evaluation and management of established outpatient in office or other outpatient facility Rosana Alaniz [facility] Start: 02-16-2018 End: 02-16-2018 Patient encounter procedure Rosana Alaniz [facility] Work Phone: Start: 02-16-2018 Medical Rosana Alaniz Other [facility] Start: 01-16-2018 Patient encounter OZZIE MCKEON [facility] Start: 11-24-2017 End: 11-24-2017 Patient encounter procedure Rosana Alaniz [facility] Work Phone: Start: 11-24-2017 Laboratory examinati on, unspecified Rosana Alaniz [facility] Start: 11-24-2017 Comprehensive metabo lic panel [facility] Start: 11-24-2017 End: 11-24-2017 Office outpatient visit 15 minutes Rosana Alaniz Other [facility] Start: 11-24-2017 Radex ankle complete minimum 3 [facility] Start: 11-24-2017 Radex foot complete minimum 3 [facility] Start: 10-23-2017 End: 10-24-2017 [facility] Start: 08-16-2017 End: 08-16-2017 Office outpatient visit 25 minutes Rosana Alaniz Other [facility] Start: 05-26-2017 Evaluation and management of established outpatient in office or other outpatient facility Rosana Alaniz [facility] Start: 05-26-2017 Antibody herpes smpl x type 1 [facility] Start: 05-26-2017 C-reactive protein h igh sensitivity [facility] Start: 05-26-2017 End: 05-26-2017 Office outpatient visit 25 minutes Rosana Alaniz Other [facility] Start: 05-26-2017 Sedimentation rate r bc automated [facility] Start: 03-29-2017 End: 03-29-2017 Office outpatient visit 15 minutes Rosana Alaniz Other [facility] Start: 02-22-2017 Antibody herpes smpl x type 1 [facility] Start: 02-22-2017 C-reactive protein [facility] Start: 02-22-2017 Comprehensive metabo lic panel [facility] Start: 02-22-2017 Culture bacterial bl ood aerobic w/id isolates [facility] Start: 02-22-2017 End: 02-22-2017 Office outpatient visit 25 minutes Rosana Alaniz Other [facility] Start: 02-22-2017 Sedimentation rate r bc automated [facility] Start: 02-22-2017 Evaluation and management of established outpatient in office or other outpatient facility [facility] Start: 02-01-2017 End: 02-01-2017 Office outpatient visit 15 minutes Rosana Alaniz Other [facility] Start: 02-01-2017 Polysom 6/>yrs sleep 4/> addl lona attnd [facility] Start: 02-01-2017 Polysom 6/>yrs sleep w/cpap 4/> addl [facility] Start: 01-06-2017 End: 01-06-2017 Office outpatient visit 15 minutes Rosana Alaniz Other [facility] Start: 12-09-2016 End: 12-09-2016 Office outpatient new 20 minutes Rosana Alaniz Other [facility] Start: 09-15-2016 Ambulatory CHANO FRANKLIN Facility: [facility] Procedures Date Procedure Procedure Detail Performing Clinician Start: 08-26-2023 Follow-up visit Follow-up ELAYNE LUCIANO Start: 06-15-2023 CT of head without contrast GENOVEVA Haile Work Phone: Start: 06-15-2023 Plain chest X-ray GENOVEVA Haile Work Phone: Start: 04-11-2023 Complete blood count with white cell differential, automated Blake Anmol DO Work Phone: Start: 04-11-2023 PAP IG, [...] in Cervix by Cyto stain Johana Hansen HOME SALES CONSULTANT-ALUMINUM MOLDING MACHINE OPERATOR Work Phone: Start: 12-27-2020 Blood gases any [...] pressure < 80 mm hg Rosana Alaniz ALUMINUM MOLDING MACHINE OPERATOR Work Phone: Start: 07-10-2020 Most recent systolic blood pressure <130 mm hg Rosana Alaniz ALUMINUM MOLDING MACHINE OPERATOR Work Phone: Start: 07-10-2020 Psychotherapy w/patient 30 [...] Syst bp lt 130 mm hg Rosana lAaniz Work Phone: Start: 02-20-2019 Psychotherapy w/patient 30 minutes Uday Hansen Work Phone: Start: 01-29-2019 TELEMETRY MONITORING JENNIFER WHALEY Start: 2019 End: 2019 Radiologic examination foot 2 views Sourav Baird Work Phone: Start: 01-04-2019 Medroxyprogesterone acetate Ivy Peni x Work Phone: Start: 01-04-2019 Therapeutic prophylactic/dx injection subq/im Ivy Penix Work Phone: Start: 01-03-2019 Fibrin dgradj products d-dimer quantitative Elayne Hurley Start: 01-03-2019 Sedimentation rate rbc automated Elayne Hurley Start: 01-03-2019 Radiologic exam chest 2 views Elayne Hurley Start: 01-03-2019 Mri spinal canal lumbar w/o contrast material Elayne Hurley Start: 01-03-2019 Urnls dip stick/tablet reagent auto microscopy Elayne Hurley Start: 01-03-2019 Basic metabolic panel calcium total Elayne Hurley Start: 01-03-2019 Blood count complete auto&auto difrntl wbc Elayne Hurley Start: 01-03-2019 C-reactive protein Elayne mun[facility] Start: 11-20-2018 Medroxyprogesterone acetate Rosana Alaniz [...] Radex ankle complete minimum 3 views JENNIFER [employer] Start: 10-15-2018 Radex foot complete minimum 3 views [employer]ENNIFER [employer] Start: 10-15-2018 Radex ankle complete minimum 3 views Jennifer [employer] Work Phone: Start: 10-15-2018 Radex foot complete minimum 3 views Twiigg Work Phone: Start: 06-15-2018 ANXIETY DISORDER NOS [...] Alaniz Start: 05-26-2017 Outside medication administered Rosana Katty Start: 05-26-2017 Pathology Rosana Alaniz Start: 05-26-2017 Therapeutic prophylactic/dx injection subq/im Rosanaray Alaniz Start: 03-29-2017 PHQ9 Administered Rosana Katty Start: 03-29-2017 SBIRT- Full Screen *POSITIVE* Referred to Provider Rosanaray Conraden Start: 03-29-2017 Therapeutic prophylactic/dx injection subq/im Rosana Alaniz Start: 02-22-2017 End: 02-22-2017 Urine test visual color cmprsn meths Rosana Katty Start: 02-22-2017 End: 02-22-2017 Antibody herpes smplx type 1 Rosana [facility] [employer] Start: 02-22-2017 Blood count complete auto&auto difrntl wbc Rosana Alaniz Start: 02-22-2017 End: 02-22-2017 C-reactive protein Rosana Alaniz Start: 02-22-2017 End: 02-22-2017 Comprehensive metabolic panel Rosana cooper Start: 02-22-2017 Cul bact xcpt urine blood/stool aerobic isol Rosana Alaniz Start: 02-22-2017 End: 02-22-2017 Culture bacterial blood aerobic w/id isolates Rosana Alaniz Start: 02-22-2017 Medroxyprogesterone acetate Rosana Alaniz Start: 02-22-2017 Outside medication administered Rosana Katty Start: 02-22-2017 End: 02-22-2017 Sedimentation rate rbc automated Rosana Conraden Start: 02-22-2017 Therapeutic prophylactic/dx injection subq/im Rosana [...] Td Vaccines (6 - Td or Tdap) [facility] Start: 03-08-2030 DTaP/Tdap/Td vaccine (2 - Td or Tdap) DTaP/Tdap/Td vaccine (2 - Td or Tdap) [employer] Work Phone: Start: 05-24-2025 Screening for malign ant neoplasm of cervix [facility] Start: 05-30-2024 Adult BMI Screening Adult BMI Screen ing [facility] Start: 05-30-2024 Tobacco Screening Tobacco Screening [facility] Start: 05-04-2024 Adult BMI Screening Adult BMI Screen ing [facility] Start: 05-04-2024 Tobacco Screening Tobacco Screening [facility] Start: 01-09-2024 Adult BMI Screening Adult BMI Screen ing [facility] Start: 12-17-2023 Tobacco Screening Tobacco Screening [facility] Start: 08-15-2023 End: 08-15-2023 Patient encounter procedure 08/15/2023 1:00 PM EDT Procedure Visit [facility] [address] [place] [address] Blake Corea DO [address] [place] [address] [facility] Start: 07-05-2023 End: 07-05-2023 Patient encounter procedure 07/05/2023 1:00 PM EDT Office Visit [facility] [address] [place] [address] Renetta Elizalde PA [address] [place] [address] [facility] Start: 06-17-2023 End: 06-17-2023 Admission to same day surgery center 06/17/2023 7:57 AM EDT - 06/17/2023 8:03 AM EDT Surgery [facility] [address] [place] [address] Anup Butler MD [address] [place] [id number] INJECTION BLOCK EPIDURAL CAUDAL STEROID [97228 (CPT )] [facility] Comment on above: INJECTION BLOCK EPID URAL CAUDAL STEROID [51604 (CPT )] Start: 06-17-2023 End: 06-17-2023 Njx dx/ther sbst intrlmnr lmbr/sac w/img gdn INJECTION BLOCK EPIDURAL CAUDAL STEROID Lumbar radiculopathy 06/17/2023 7:57 AM EDT [facility] Start: 06-17-2023 Subsequent hospital visit by physician 06/17/2023 7:57 AM EDT Hospital Encounter [facility] [address] [place] [phone] Anup Butler MD [address] [place], [place] [id number] [facility] Start: 06-15-2023 Bacteria identified in Urine by Culture [facility] Start: 05-31-2023 End: 05-31-2023 Patient encounter procedure 05/31/2023 1:45 PM EDT Office Visit [facility] [address] [place] [phone] Renetta Elizalde PA [address] [place], [place] [id number] [facility] Start: 05-13-2023 End: 05-13-2023 Admission to same day surgery center 05/13/2023 12:51 PM EST - 05/13/2023 12:57 PM EST Surgery [facility] [address] [place] [phone] Anup Butler MD [address] [place], [place] [id number] INJECTION SPINE TRANSFORAMINAL Right L 5,1 Nroot [29613 (CPT )] [facility] Comment on above: INJECTION SPINE ANDERSON SFORAMINAL Right L 5,1 Nroot [58366 (CPT )] Start: 05-13-2023 End: 05-13-2023 Njx anes&/strd w/img tfrml edrl lmbr/sac 1 lvl INJECTION SPINE TRANSFORAMINAL Lumbar radiculopathy Spinal stenosis of lumbar region with neurogenic claudication 05/13/2023 12:51 PM EST [facility] Start: 05-13-2023 Subsequent hospital visit by physician 05/13/2023 12:51 PM EST Hospital Encounter [facility] [address] [place] [phone] Anup Butler MD [address] [place] [address] [facility] Start: 05-03-2023 End: 05-03-2023 Patient encounter procedure 05/03/2023 1:00 PM EST Office Visit [facility] [address] [place] [phone] Renetta Elizalde PA [address] [place] [address] [facility] Start: 04-28-2023 Patient referral [facility] Work Phone: Start: 04-27-2023 End: 04-27-2023 Patient encounter procedure 04/27/2023 8:00 AM EST Office Visit [facility] [address] [place] [phone] Gino Nicolas MD [address] , [facility] [address] [place] [address] [facility] Start: 04-05-2023 End: 04-05-2023 Patient encounter procedure 04/05/2023 2:30 PM EST Office Visit [facility] [address] [place] [address] Shruthi Chinchilla MD [address] [facility] , [facility] [address] [place] [address] [facility] Start: 11-05-2022 Influenza vaccination [facility] Start: 09-22-2022 [facility] Start: 09-22-2022 Aerobic Culture Aerobic Culture [facility] Start: 09-22-2022 Anaerobic Culture Anaerobic Culture [facility] Start: 09-22-2022 Microscopic observat ion [Identifier] in Unspecified specimen by Gram stain Gram Stain [facility] Start: 12-27-2021 Creatinine measurement Creatinine mo nitoring [facility] Work Phone: Start: 12-27-2021 Potassium monitoring Potassium monit [facility] Work Phone: Start: 11-05-2020 Influenza vaccination Flu vaccine (# 1) [facility] [employer] Work Phone: Start: 01-04-2020 Creatinine monitoring Creatinine mon [facility] [place] Start: 01-04-2020 Potassium monitoring Potassium monit [facility] [place] Start: 11-15-2019 Creatinine monitoring Creatinine mon [facility] [place] Start: 11-15-2019 Potassium monitoring Potassium monit [facility] [place] Start: 07-17-2019 Drug Test, Thomas morlaes, In House [facility] Work Phone: Start: 07-12-2019 HbA1c (Bld) [Mass fraction] [facility] Work Phone: Start: 07-04-2019 Medical Establ ished Patient [facility] Work Phone: Start: 03-28-2019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 Medical Established Patient with Primitivo Lujan [facility] 01/04/2019 Obesity due to excess calories Medical E stablished Patient with Primitivo Lujan [facility] 01/04/2019 Z30.42 - Encounter for surve illance of injectable contraceptive Medical Established Patient with Primitivo Lujan [facility] 01/04/2019 Z68.31 - Body mass index (BM I) 31.0-31.9 adult Medical Established Patient with Primitivo Lujan [facility] 01/04/2019 Assess migraine headache Medical Establi shed Patient with Rosana Alaniz [facility] 11/20/2018 Diabetes Risk Test Score was three score Medical Established Patient with Rosana Alaniz [facility] 11/20/2018 Obesity due to excess calories Medical E stablished Patient with Rosana Alaniz [facility] 11/20/2018 Z68.34 - Body mass index (BM I) 34.0-34.9 adult Medical Established Patient with Rosana Alaniz [facility] 11/20/2018 M25.572 - Pain in left ankle and joints of left foot Chart Update with Primitivo Lujan [facility] 10/25/2018 Assess open wound of the jacinto d, complicated Medical Established Patient with Rosana Alaniz [facility] 06/15/2018 Body mass index Medical Established Patient with Rosana Alaniz [facility] 06/15/2018 Assess dermatitis Chart Update with Rosana Alaniz [facility] 06/01/2018 [facility] Work Phone: 1([phone]) 212-757804-29-2020 History general Narrative - Reported Includes: Medical [...] of psychiatric disorders 019 [facility] Work Phone: Evaluation note* Diagnosis Substance abuse (HCC)- Primary Other, mixed, or unspecified nondependent drug abuse, unspecified documented in this encounter [facility] Work Phone: evaluation noteNo [facility] [employer] Other Evaluation noteNo assessment information [facility] Work Phone: Evaluation note* Diagnosis S/P lumbar fusion Arthrodesis status [facility] Diagnosis Bilateral leg pain- Primary Pain in soft tissues of limb Herniated lumbar intervertebral disc Displacement of lumbar intervertebral disc without myelopathy S/P lumbar fusion Arthrodesis status Lumbar foraminal stenosis documented in this encounter [facility] Diagnosis Lumbar radiculopathy- Primary Thoracic or lumbosacral neuritis or radiculitis, unspecified Spinal stenosis of lumbar region with neurogenic claudication Spinal stenosis of lumbar region with neurogenic claudication- Primary Lumbar radiculopathy Thoracic or lumbosacral neuritis or radiculitis, unspecified Lumbar radiculopathy Thoracic or lumbosacral neuritis or radiculitis, unspecified Spinal stenosis of lumbar region with neurogenic claudication [facility] Diagnosis Lumbar radiculopathy- Primary Thoracic or lumbosacral neuritis or radiculitis, unspecified Lumbar radiculopathy- Primary Thoracic or lumbosacral neuritis or radiculitis, unspecified Lumbar radiculopathy Thoracic or lumbosacral neuritis or radiculitis, unspecified [facility] Diagnosis Onset Date Resolution Status Abscess acute Cellulitis acute [facility] Work Phone: Evaluation note* Diagnosis Onset Date Resolution Status Abscess acute Cellulitis acute Vitamin B 12 deficiency acut e [facility] Work Phone: History general Narrative - Reported* Type Description Date Medical History ulcers bleeding and perforated Medical History fibromyalgia Medical History ADHD Medical History migraine headache Medical History insomnia Medical History Chiari malformation Medical History multiple sclerosis Surgical History cholecystectomy Surgical History breast reduction Surgical History breast augmentation Surgical History gastric sleeve Surgical History pick/port line Hospitalization History see above [employer] [facility] Narrative - Reported* Type Description Date Medical History ulcers bleeding and perforated Medical History fibromyalgia Medical History ADHD Medical History migraine headache Medical History insomnia Medical History Chiari malformation Medical History multiple sclerosis Medical History Substance abuse Surgical History cholecystectomy Surgical History breast reduction Surgical History breast augmentation Surgical History gastric sleeve Surgical History pick/port line Hospitalization History see above [employer] Other History of Present illness Narrative History of Present Illness not supported for this document type No History of Present Illness RecordedHealth [facility] Work Phone: Hospital Discharge instructions Additional Instructions If your symptoms return/worsen or you develop any further concerns or symptoms please see your doctor or return to the emergency department immediately.[facility] Work Phone: Instructions Instructions not supported for this document type No Instructions RecordedHealth [facility] Work Phone: InstructionsNot on filedocumented in this encounter [facility] filedocumented in this encounter [facility]ructionsNot on filedocumented in this encounter [facility]ructionsNot on filedocumented in this encounter [facility] SystemInstructionsNot on filedocumented in this encounter [facility] SystemPatient problem outcome Narrative Includes: Evaluations & Outcomes for active Goals No Outcomes RecordedHealth [facility] Work Phone: Reason for referral (narrative)No Reason for Referral [facility] Work Phone: Remgie for referral (narrative)* Consultation (Routine) - Pending Review Specialty Diagnoses / Procedures Referred By Contac t Referred To Contact Pain Medicine Diagnoses Bilateral leg pain Herniated lumbar intervertebral disc S/P lumbar fusion Lumbar foraminal stenosis Johana Hansen, GERALDO [address] [address] Anup Butler MD [address] [place] [address] Referral ID Status Reason Start Date Expiration Date Visits Requested Visits Authorized [id number] Pending Review Specialty Services Required 03/30/2023 03/29/2024 [facility] System[facility] systems Narrative - Reported Review of Systems not supported for this document type No Review of Systems RecordedHealth [facility] Work Phone: Summary Purpose Family History No Family History Records Found Description Last Updated Maternal history of type 2 diabetes zia itus 06/15/2018 Relationship Condition Age at Onset Recorded Date/T carlin father Unknown Heart disease Unknown Multiple sclerosis Unknown Not Specified Heart disease Unknown Relationship Condition Age at Onset Recorded Date/T carlin father Unknown Heart disease Unknown Multiple sclerosis Unknown mother Heart disease Unknown Advance Directives No Advanced Directives Records FoundDocuments on File Type Date 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 Advance Directives and Living Will Power of Hosiery Mender Latest Code Status on File Code Status Date Activated Date Inactivated Comments Full Code 11/16/2016 12:58 PM 11/16/2016 4:36 PM Full Code 07/27/2016 3:17 PM 07/27/2016 6:53 PM Full Code 11/25/2015 11:45 AM 11/25/2015 3:40 PM Full Code 11/11/2015 11:55 AM 11/11/2015 5:56 PM Full Code 07/22/2015 12:41 PM 07/22/2015 4:32 PM Documents on File Type Date 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 Please call your psychiatry adult physician for follow-up within 1 week. Please return to the ED if you have severe worsening of pain, loss of sensation, your foot become numb, or any other concerns arise. documented in this encounter* Attachments The following attachments cannot be sent through Care Everywhere. * Edema: Leg and Ankle (Mongolian) * Impetigo (Mongolian) * LFTs (Liver Function Tests) (Mongolian) documented in this encounter* Attachments The following attachments cannot be sent through Care Everywhere. * Sciatica (Mongolian) * Foot Fracture (Mongolian) documented in this encounter* Instructions* Elayne Hurley MD - 01/03/2019 You have a large herniated disc with entrapment of the left L5 nerve root. I would recommend follow-up with a neurosurgeon. documented in this encounter* Attachments The following attachments cannot be sent through Care Everywhere. 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 06/15/2018 Body mass index Medical Established Patient with Rosana Alaniz ALUMINUM MOLDING MACHINE OPERATOR 06/15/2018 Assess dermatitis Chart Update with Rosana Alaniz ALUMINUM MOLDING MACHINE OPERATOR 06/01/2018 Diagnosis Bilateral lower extremity edema- Primary Edema Transaminitis Nonspecific elevation of levels of transaminase or lactic acid dehydrogenase (LDH) Impetigo Findings Encounter Date Bulging intervertebral disc Medical Esta blished Patient with Primitivo Lujan ALUMINUM MOLDING MACHINE OPERATOR 01/04/2019 Fibromyalgia Medical Established Patient with Primitivo Lujan ALUMINUM MOLDING MACHINE OPERATOR 01/04/2019 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 Medical Established Patient with Primitivo Lujan ALUMINUM MOLDING MACHINE OPERATOR 01/04/2019 Obesity due to excess calories Medical E stablished Patient with Primitivo Lujan [facility] 01/04/2019 Z30.42 - Encounter for surve illance of injectable contraceptive Medical Established Patient with Primitivo Lujan [facility] 01/04/2019 Z68.31 - Body mass index (BM I) 31.0-31.9 adult Medical Established Patient with Primitivo Lujan [facility] 01/04/2019 Assess migraine headache Medical Establi shed Patient with Rosana Alaniz [facility] 11/20/2018 Diabetes Risk Test Score was three score Medical Established Patient with Rosana Alaniz [facility] 11/20/2018 Obesity due to excess calories Medical E stablished Patient with Rosana Alaniz [facility] 11/20/2018 Z68.34 - Body mass index (BM I) 34.0-34.9 adult Medical Established Patient with Rosana Alaniz [facility] 11/20/2018 M25.572 - Pain in left ankle and joints of left foot Chart Update with Primitivo Lujan [facility] 10/25/2018 Assess open wound of the jacinto d, complicated Medical Established Patient with Rosana Alaniz [facility] 06/15/2018 Body mass index Medical Established Patient with Rosana Alaniz [facility] 06/15/2018 Assess dermatitis Chart Update with Rosana Alaniz [facility] 06/01/2018 Diagnosis Sciatica of left side- Primary Sciatica Closed fracture of right foot, initial encounter Findings Encounter Date 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 Established Patient with Uday Hansen [facility] 02/20/2019 Fagerstrom Score was 0 02/20/2019 Medica l Established Patient with Rosana Alaniz [facility] 02/20/2019 Obesity due to excess calories Medical E stablished Patient with Rosana Alaniz [facility] 02/20/2019 PHQ-9: total score was 24 02/20/2019 Med ical Established Patient with Rosana Alaniz [facility] 02/20/2019 Z68.34 - Body mass index (BM I) 34.0-34.9 adult Medical Established Patient with Rosana Alaniz [facility] 02/20/2019 Bulging intervertebral disc Medical Esta blished Patient with Primitivo Lujan [facility] 01/04/2019 Fibromyalgia Medical Established Patient with Primitivo Lujan [facility] 01/04/2019 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 Medical Established Patient with Ivy Le [facility] 01/04/2019 Obesity due to excess calories Medical E stablished Patient with Ivy Le [facility] 01/04/2019 Z30.42 - Encounter for surve illance of injectable contraceptive Medical [facility] Z68.31 - Body mass index (BM I) 31.0-31.9 adult Medical Established Patient with Primitivo Lujan [facility] 01/04/2019 Assess migraine headache Medical Establi shed Patient with Rosana Alaniz [facility] 11/20/2018 Diabetes Risk Test Score was three score Medical Established Patient with Rosana Alaniz [facility] 11/20/2018 Obesity due to excess calories Medical E stablished Patient with Rosana Alaniz [facility] 11/20/2018 Z68.34 - Body mass index (BM I) 34.0-34.9 adult Medical Established Patient with Rosana Alaniz [facility] 11/20/2018 M25.572 - Pain in left ankle and joints of left foot Chart Update with IvyNya Lujan [facility] 10/25/2018 Assess open wound of the jacinto d, complicated Medical Established Patient with Rosanaray Alaniz [facility] 06/15/2018 Body mass index Medical Established Patient with Rosana Alaniz [facility] 06/15/2018 Assess dermatitis Chart Update with Rosanaray Alaniz [facility] 06/01/2018 Findings Encounter Date Anxiety disorder NOS [facility] Obesity due to excess calories CPS Med R eview with [facility] 03/08/2019 Screening for diabetes mellitus CPS Med Review with Rosana [facility] 03/08/2019 Z68.32 - Body mass index (BM I) 32.0-32.9 adult CPS Med Review with Rosanaray Alaniz [facility] 03/08/2019 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 Established Patient with Uday Hansen [facility] 02/20/2019 Fagerstrom Score was 0 02/20/2019 Medica l Established Patient with Rosana Alaniz [facility] 02/20/2019 Obesity due to excess calories Medical E stablished Patient with Rosana Alaniz [facility] 02/20/2019 PHQ-9: total score was 24 02/20/2019 Med ical Established Patient with Rosana Alaniz [facility] 02/20/2019 Z68.34 - Body mass index (BM I) 34.0-34.9 adult Medical Established Patient with Rosana Alaniz [facility] 02/20/2019 Bulging intervertebral disc Medical Esta blished Patient with Primitivo Lujan [facility] 01/04/2019 Fibromyalgia Medical Established Patient with Primitivo Lujan [facility] 01/04/2019 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 Medical Established Patient with Primitivo Lujan [employer]IN[employer] MOLDING MACHINE OPERATOR 01/04/2019 Obesity due to excess calories Medical E stablished Patient with Primitivo Lujan ALUMINUM MOLDING MACHINE OPERATOR 01/04/2019 Z30.42 - Encounter for surve illance of injectable contraceptive Medical Established Patient with Primitivo Lujan [facility] 01/04/2019 Z68.31 - Body mass index (BM I) 31.0-31.9 adult Medical Established Patient with Primitivo Lujan [facility] 01/04/2019 Assess migraine headache Medical Establi shed Patient with Rosana Alaniz [facility] 11/20/2018 Diabetes Risk Test Score was three score Medical Established Patient with Rosana Alaniz [facility] 11/20/2018 Obesity due to excess calories Medical E stablished Patient with Rosana Alaniz ALUMINUM MOLDING MACHINE OPERATOR 11/20/2018 Z68.34 - Body mass index (BM I) 34.0-34.9 adult Medical Established Patient with Rosana Alaniz [facility] 11/20/2018 M25.572 - Pain in left ankle and joints of left foot Chart Update with Primitivo Lujan [facility] 10/25/2018 Assess open wound of the jacinto d, complicated Medical Established Patient with Rosana Alaniz [facility] 06/15/2018 Body mass index Medical Established Patient with Rosana Alaniz [facility] 06/15/2018 Assess dermatitis Chart Update with Rosana Alaniz [facility] 06/01/2018 Findings Encounter Date Obesity due to excess calories Telemedicine with Rosana Alaniz [facility] 07/04/2019 Z68.31 - Body mass index (BM I) 31.0-31.9, adult Telemedicine with Rosana Alaniz [facility] 07/04/2019 Anxiety disorder NOS CPS Med Review with Rosana gomez [facility] 03/08/2019 Obesity due to excess calories CPS Med Review wi th Rosana Katty [facility] 03/08/2019 Screening for diabetes mellitus CPS Med Review w ith Rosana Alaniz [facility] 03/08/2019 Z68.32 - Body mass index (BM I) 32.0-32.9 adult CPS Med Review with Rosana Katty [facility] 03/08/2019 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 BH Established Patient with Uday Hansen [facility] 02/20/2019 Fagerstrom Score was 0 02/20/2019 Medica l Established Patient with Rosana Alaniz [facility]NP 02/20/2019 Obesity due to excess calories Medical E stablished Patient with Rosana Alaniz ALUMINUM MOLDING MACHINE OPERATOR 02/20/2019 PHQ-9: total score was 24 02/20/2019 Med ical Established Patient with Rosana Alaniz ALUMINUM MOLDING MACHINE OPERATOR 02/20/2019 Z68.34 - Body mass index (BM I) 34.0-34.9 adult Medical Established Patient with Rosana Alaniz CNP 02/20/2019 Bulging intervertebral disc Medical Esta blished Patient with Primitivo Lujan ALUMINUM MOLDING MACHINE OPERATOR 01/04/2019 Fibromyalgia Medical Established Patient with Primitivo Lujan ALUMINUM MOLDING MACHINE OPERATOR 01/04/2019 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 Medical Established Patient with Primitivo Lujan ALUMINUM MOLDING MACHINE OPERATOR 01/04/2019 Obesity due to excess calories Medical E stablished Patient with Primitivo Lujan ALUMINUM MOLDING MACHINE OPERATOR 01/04/2019 Z30.42 - Encounter for surve illance of injectable contraceptive Medical Established Patient with Primitivo Lujan ALUMINUM MOLDING MACHINE OPERATOR 01/04/2019 Z68.31 - Body mass index (BM I) 31.0-31.9 adult Medical Established Patient with Primitivo Lujan ALUMINUM MOLDING MACHINE OPERATOR 01/04/2019 Assess migraine headache Medical Establi shed Patient with Rosana Alaniz ALUMINUM MOLDING MACHINE OPERATOR 11/20/2018 Diabetes Risk Test Score was three score Medical Established Patient with Rosana Alaniz ALUMINUM MOLDING MACHINE OPERATOR 11/20/2018 Obesity due to excess calories Medical E stablished Patient with Rosana Alaniz ALUMINUM MOLDING MACHINE OPERATOR 11/20/2018 Z68.34 - Body mass index (BM I) 34.0-34.9 adult Medical Established Patient with Rosana Alaniz ALUMINUM MOLDING MACHINE OPERATOR 11/20/2018 M25.572 - Pain in left ankle and joints of left foot Chart Update with Primitivo Lujan ALUMINUM MOLDING MACHINE OPERATOR 10/25/2018 Assess open wound of the jacinto d, complicated Medical Established Patient with Rosana Alaniz ALUMINUM MOLDING MACHINE OPERATOR 06/15/2018 Body mass index Medical Established Patient with Rosana Alaniz ALUMINUM MOLDING MACHINE OPERATOR 06/15/2018 Assess dermatitis Chart Update with Rosana Katty ALUMINUM MOLDING MACHINE OPERATOR 06/01/2018 Findings Encounter Date Moderate recurrent major depression [facility] elebehavioral Health with Li [facility] 03/13/2020 Body mass index Telemedicine Establi sted Patient with Rosana Katty [facility] 03/13/2020 Obesity due to excess calories Telemedic ine Establisted Patient with Rosana Katty [facility] 03/13/2020 Obesity due to excess calories Telemedicine with Rosana Alaniz [facility] 07/04/2019 Z68.31 - Body mass index (BM I) 31.0-31.9, adult Telemedicine with Rosana Alaniz [facility] 07/04/2019 Anxiety disorder NOS CPS Med Review with Rosana gomez [facility] 03/08/2019 Obesity due to excess calories CPS Med Review wi th Rosana Alaniz [facility] 03/08/2019 Screening for diabetes mellitus CPS Med Review w ith Rosana Alaniz [facility] 03/08/2019 Z68.32 - Body mass index (BM I) 32.0-32.9 adult CPS Med Review with Rosana Alaniz [facility] 03/08/2019 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 BH Established Patient with Uday Tyrone [facility] 02/20/2019 Fagerstrom Score was 0 02/20/2019 Medica l Established Patient with Rosana Alaniz [facility] 02/20/2019 Obesity due to excess calories Medical E stablished Patient with Rosana Alaniz [facility] 02/20/2019 PHQ-9: total score was 24 02/20/2019 Med ical Established Patient with Rosana Alaniz [facility] 02/20/2019 Z68.34 - Body mass index (BM I) 34.0-34.9 adult Medical Established Patient with Rosana Alaniz [facility] 02/20/2019 Bulging intervertebral disc Medical Esta blished [facility] Fibromyalgia Medical Establ[facility]/04[facility]2019 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 Medical Establ[facility] Obesity due to excess calories Medical E stablished [facility] Z30.42 - Encounter for surve illance of injectable contraceptive Medical Established [facility]/04[facility]2019 Z68.31 - Body mass index (BM I) 31.0-31.9 adult Medical Established [facility] Assess migraine headache Medical Establi shed Patient with Rosana Alaniz [facility] 11/20/2018 Diabetes Risk Test Score was three score Medical Established Patient with Rosana Alaniz [facility] 11/20/2018 Obesity due to excess calories Medical E stablished Patient with Rosana Alaniz [facility] 11/20/2018 Z68.34 - Body mass index (BM I) 34.0-34.9 adult Medical Established Patient with Rosana Alaniz [facility] 11/20/2018 M25.572 - Pain in left ankle and joints of left foot Chart Update with Primitivo Lujan [facility] 10/25/2018 Assess open wound of the jacinto d, complicated Medical Established Patient with Rosana Alaniz [facility] 06/15/2018 Body mass index Medical Established Patient with Rosana Alaniz [facility] 06/15/2018 Assess dermatitis Chart Update with Rosana Alaniz [facility] 06/01/2018 Diagnosis Herniated intervertebral disc of lumbar spine- Primary Neuropathy Mononeuritis of unspecified site Diagnosis Accidental overdose of heroin, initial encounter (HCC)- Primary Findings Encounter Date Assess open wound of the jacinto d, complicated Medical Established Patient with Rosana Alaniz [facility] 06/15/2018 Body mass index Medical Established Patient with Rosana Alaniz [facility] 06/15/2018 Assess dermatitis Chart Update with Rosana Alaniz [facility] 06/01/2018 Diagnosis Pain of left calf Findings Encounter Date Assess migraine headache Medical Establi shed Patient with Rosana Alaniz [facility] 11/20/2018 Diabetes Risk Test Score was three score Medical Established Patient with Rosana Alaniz [facility] 11/20/2018 Obesity due to excess calories Medical E stablished Patient with Rosana Alaniz [facility] 11/20/2018 Z68.34 - Body mass index (BM I) 34.0-34.9 adult Medical Established Patient with Rosana Alaniz [facility] 11/20/2018 M25.572 - Pain in left ankle and joints of left foot Chart Update with Primitivo Lujan [facility] 10/25/2018 Assess open wound of the jacinto d, complicated Medical Established Patient with Rosana Alaniz [facility] 06/15/2018 Body mass index Medical Established Patient with Rosana Alaniz [facility] 06/15/2018 Assess dermatitis Chart Update with Rosana Alaniz [facility] 06/01/2018 Instructions Instructions not supported for [...] VL DUP LOWER EXTREMITY VENOUS LEFT Misbah Oreilly DPM [address] [place] [address] Reason Would like to b ee seen at [facility]-- psychaitry for ADD treatment, matthew like to see ana martinez if available 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 [place] Referring Provider First Name Berenice Referring Provider Last Name Danteachejade Referring Provider Specialty Nurse Pract itioner Referred Organization [facility] Referred Address [address] [place], [place],[address] Referred Provider Specialty Psychiatry Referral Priority Routine General Notes Katina Winter 03:07:30 PM >received today, waiting for notes to be locked to fax Reason *FU 09/29 evaluate -- would like scheduled [place] Diagnosis 1 Lupus (M32.9) Diagnosis 2 Fibromyalgia (M79.7) Referral Organization [facility] [place] Referring Provider First Name Berenice Referring Provider Last Name Rohrbacher Referring Provider Specialty Nurse Pract itioner Referred Organization [facility] Referred Address [address],[place], [place],[address] Referred Provider Specialty Rheumatology Referral Priority Routine General Notes Katina Winter 03:28:37 PM >received today, notes locked, ins attached, referral faxed Clinical Notes Dr. Colindres P: [id number] F: [id number] Reason evaluate Diagnosis 1 Hepatitis C virus in fection without hepatic coma, unspecified chronicity (B19.20) Referral Organization [facility] [place] Referring Provider First Name Berenice Referring Provider Last Name Rohrbacher Referring Provider Specialty Nurse Pract itioner Referred Organization [facility] Gastroenterolo gy Referred Provider Agus [place] Referred Address [address],[address] Referred Provider Specialty Gastroentero logy Referral Priority Routine General Notes Katina Winter 03:25:06 PM >received today, sent P2P Reason would like referral to pain management [place] Diagnosis 1 Other chronic pain ( G89.29) Diagnosis 2 Lumbago with sciatic a, left side (M54.42) Diagnosis 3 History of back surg marial uz (Z98.890) Diagnosis 4 Cervical back pain w ith evidence of disc disease (M50.90) Referral Organization [facility] [place] Referring Provider First Name Berenice Referring Provider Last Name Leslyrbacher Referring Provider Specialty Nurse Pract itioner Referred Organization [facility] Referred Address [address] [place], [place],[address] Referred Provider Specialty Pain Medicin e Referral Priority Routine Specialty Diagnoses / Procedures Referred By Ligia bruno Referred To Contact Diagnoses Lumbar radiculopathy Spinal stenosis of lumbar region with neurogenic claudication Procedures Case request operating room: INJECTION BLOCK EPIDURAL STEROID LUMBAR/SACRAL Right L 5,1 NR Jaswant Hussein, LYNNETTE [address] [place] [address] Referral ID Status Reason Start Date Expiration Date V isits Requested Visits Authorized [id number] Pending Review 05/04/2023 05/03/2024 1 1 Specialty Diagnoses / Procedures Referred By Ligia t Referred To Contact Diagnoses Lumbar radiculopathy Procedures Case request operating room: INJECTION BLOCK EPIDURAL CAUDAL STEROID Renetta Elizalde, BOB [address] [place] [address] Referral ID Status Reason Start Date Expiration Date V isits Requested Visits Authorized [id number] Pending Review 05/31/2023 05/30/2024 1 1 Chief Complaint and Reason for Visit Chief Complaint S21.002D B19.20 Chief Complaint B19.20 z98.1 g89.29 m48.062 m54.16 Chief Complaint Elevated Sugar Amb Documentation Amb Documentation Spider Bite Chief Complaint Elevated Sugar Amb Documentation Amb Documentation Spider Bite ill Reason for Visit Abscess Cellulitis Chief Complaint [facility] ER , boil Reason for Visit Abscess Cellulitis Vitamin B 12 deficiency Additional Source Comments INFORMATION SOURCE (unrecogn ized section and content) DATE CREATED AUTHOR 08/25/[address] DATE CREATED AUTHOR AUTHOR'S ORGANIZ ATION 08/31/2017 [facility] DATE CREATED AUTHOR AUTHOR'S ORGANIZ ATION 10/25/2017 [facility] DATE CREATED AUTHOR AUTHOR'S ORGANIZ ATION 01/07/2018 [facility] DATE CREATED AUTHOR AUTHOR'S ORGANIZ ATION 01/29/2019 [facility] DATE CREATED AUTHOR AUTHOR'S ORGANIZ ATION 07/11/2020 [facility] [facility] DATE CREATED AUTHOR AUTHOR'S ORGANIZ ATION 06/07/2022 [facility] DATE CREATED AUTHOR AUTHOR'S ORGANIZ ATION 09/08/2022 [facility] DATE CREATED AUTHOR AUTHOR'S ORGANIZ ATION 06/27/2023 [facility] DATE CREATED AUTHOR AUTHOR'S ORGANIZ ATION 08/28/2023 [facility] DATE CREATED AUTHOR AUTHOR'S ORGANIZ ATION 08/30/2023 [facility] DATE CREATED AUTHOR AUTHOR'S ORGANIZ ATION 09/23/2023 [facility] DATE CREATED AUTHOR AUTHOR'S ORGANIZ ATION 10/27/2023 [place] Reason for Visit (unrecogniz ed section and [...] a car in the parking lot @ [facility]. Narcan 7 mg IN per EMS. Status Reason Specialty Diagnoses / Procedures Referred By Contact Referred To Contact Open Vascular Lab Diagnoses Calf swelling Calf pain Procedures [facility] DUPLEX EXTREM VENOUS,UNI OR LTD Misbah Oreilly, DPM [address] [place] [address] [facility] [address] [place] [address] Reason Comments Other , med clear for [facility]. Reason Onset Date Comments Med Refill 04/27/2023 [...] Member Role Status Dates Berenice Haile APRN ELECTRICAL ASSEMBLER-C Attending Provider Act valery Team Status: Active Member Role Status Dates Berenice Haile APRN ELECTRICAL ASSEMBLER-C Primary Care Provider Active Team Status: Inactive Member Role Status Dates GENOVEVA John Attending Provider Act valery PHYSICIAN NO FAMILY Primary Care Provider Active Team Status: Inactive Member Role Status Dates Berenice Haile APRN ELECTRICAL ASSEMBLER-C Primary Care Provider Active Ladarius Pitts APRN Attending Provider Active Team Status: Active Member Role Status Dates Lola Montgomery APRN ELECTRICAL ASSEMBLER-C Primary Care Provider Active Team Status: Inactive Member Role Status Dates EVANGELINA Israel Attending Provider Active Lola Montgomery APRN ELECTRICAL ASSEMBLER-C Primary Care Provider Active Gaming Worker Relationship Specialty Start Date End Date Berenice Haile APRN-NP [address] [place] [address] PCP - General Nurse Practitioner 01/17/23 Gaming Worker Relationship Specialty Start Date End Date Berenice Haile APRN-NP [address] [facility] [place] [address] PCP - General Nurse Practitioner 01/17/23 Gaming Worker Relationship Specialty Start Date End Date Berenice Haile NP [address] [place] [address] [place] [address] PCP - General Family Medicine 04/11/23 Gaming Worker Relationship Specialty Start Date End Date Berenice Haile NP [address] [facility] [place] [address] [place] [address] PCP - General Family Medicine 04/11/23 Gaming Worker Relationship Specialty Start Date End Date Berenice Haile APRN-ELECTRICAL ASSEMBLER [address] [facility] [place] [address] PCP - General Nurse Practitioner 01/17/23 Gaming Worker Relationship Specialty Start Date End Date Berenice Haile APRN-ELECTRICAL ASSEMBLER [address] [facility] [place] [address] PCP - General Nurse Practitioner 01/17/23 Gaming Worker Relationship Specialty Start Date End Date Berenice Haile APRN-ELECTRICAL ASSEMBLER [address] [facility] [place] [address] PCP - General Nurse Practitioner 01/17/23 Gaming Worker Relationship Specialty Start Date End Date Berenice Haile APRN-ELECTRICAL ASSEMBLER [address] [facility] [place] [address] PCP - General Nurse Practitioner 01/17/23 Team Status: Inactive Member Role Status Dates Berenice Haile APRN ELECTRICAL ASSEMBLER-C Attending Provider Act valery Start: March 21, 2023 End: March 21, 2023 Team Status: Active Member Role Status Dates Lola Montgomery APRN ELECTRICAL ASSEMBLER-C Primary Care Provider Active Start: April 19, 2023 Jaimie Durand Attending Provider Active Start: April 19, 2023 Team Status: Active Member Role Status Dates Berenice Haile APRN ELECTRICAL ASSEMBLER-C Primary Care Provider Active Start: April 282023 Jaimie Durand Attending Provider Active Start: April 28, 2023 Team Status: Inactive Member Role Status Dates Berenice Haile APRN ELECTRICAL ASSEMBLER-C Primary Care Provider, Attending Provider Active Start: May 26, 2023 End: May 26, 2023 Gaming Worker Relationship Specialty Start Date End Date Berenice Haile APRN-ELECTRICAL ASSEMBLER [address] [place] [address] PCP - General Nurse Practitioner 01/17/23 Gaming Worker Relationship Specialty Start Date End Date Berenice Haile APRN-ELECTRICAL ASSEMBLER [address] [facility] [place] [address] PCP - General Nurse Practitioner 01/17/23 05/31/23 Team Status: Active Member Role Status Dates Lola Montgomery APRN ELECTRICAL ASSEMBLER-C Primary Care Provider Active Start: April 19, 2023 Jaimie Durand LPN Attending Provider Active S tart: April 19, 2023 Team Status: Active Member Role Status Dates Berenice Haile APRN ELECTRICAL ASSEMBLER-C Primary Care Provider Active Start: April 282023 Jaimie Durand LPN Attending Provider Active S tart: April 28, 2023 Team Status: Inactive Member Role Status Dates Berenice Haile APRN ELECTRICAL ASSEMBLER-C Primary Care Provider Active Start: June 15, 2023 End: June 15, 2023 Nazario Torres DO Emergency Provider Active Start: June 15, 2023 End: June 15, 2023 Team Status: Active Member Role Status Dates Berenice Haile APRN NP-C Primary Care Provider Active Start: August 15, 2023 Blake Corea DO Attending Provider Active Start : August 15, 2023 Team Status: Inactive Member Role Status Dates Berenice Haile APRN ELECTRICAL ASSEMBLER-C Primary Care Provider, Attending Provider Active Start: October 06, 2023 End: October 06, 2023 Goals (unrecognized section and content) Goals [...] BE BASED ON THE PRIMARY CLINICAL RECORDS. [facility]. provides no warranty or guarantee of the accuracy or completeness of information in this document.
[2023-11-27 09:07] LABS: Progesterone 3.2 ng/mL (.)
== END 2023-11-25 17:02 | disposition home or self-care (01) ==
PROVIDERS: PCP Nurse Practitioner Family; Visit Provider Obstetrics & Gynecology
DX: N97.9 Female infertility, unspecified (principal); E28.2 Polycystic ovarian syndrome
CPT/HCPCS: 36415; 84144

== ENCOUNTER 2023-12-26 16:34 | Outpatient (OUT) | payer MEDICAID, SELFPAY ==
[2023-12-28 13:09] LABS: Progesterone 0.3 ng/mL (.)
== END 2023-12-26 16:35 | disposition home or self-care (01) ==
PROVIDERS: PCP Nurse Practitioner Family; Visit Provider Obstetrics & Gynecology
DX: N97.9 Female infertility, unspecified (principal); E28.2 Polycystic ovarian syndrome
CPT/HCPCS: 36415; 84144

== ENCOUNTER 2024-01-25 00:26 | Emergency (ER) | payer MEDICAID, SELFPAY ==
[2024-01-25 00:31] VITALS: BP 134/87; PULSE 89; TEMP 36.6; O2SAT 100; BMI 24.4
--- OUTSIDE RECORDS SUMMARY | 2024-01-25 00:32 | XMS_ITS | CCD ---
Author Organization [facility] Care Team Providers Care Upsetting Machine Operator Name Role Phone CHANO FRANKLIN Unavailable Unavailable Katty, Rosana Unavailable Unavailable karthik Unavailable Unavailable Stiven, Allsion Unavailable Unavailable Sprout Unavailable Unavailable Unavailable Unavailable Unavailable Bahn Unavailable Unavailable Scott, Isidro Unavailable Unavailable Katty, Rosana Unavailable Unavailable BEBOS, ACHILLES Unavailable Unavailable Katty, Rosana Unavailable Unavailable Dontae, Anahi Unavailable Unavailable RATAR, OZZIE A J Unavailable Unavail able Katty, Rosana Unavailable Unavailable Katty, Rosana Unavailable Unavailable Katty, Rosana Primary Care Physician Unavailab le karthik Unavailable Unavailable Stiven, Allsion Unavailable Unavailable Sprout Unavailable Unavailable Unavailable Unavailable Unavailable Bahn Unavailable Unavailable Scott, Isidro Unavailable Unavailable Katty, Rosana Unavailable Unavailable Katty, Rosana M Primary Care Provider [phone] Katty, Rosana Unavailable Katty, Rosana Primary Care Provider JENNIFER WHALEY Attending Unavailable KATTY ROSANA M Primary Care Unavailable KATTY ROSANA M Primary Care Unavailable WAYLON MONTOYA Attending Unavailable Katty, Rosana Primary Care Provider Katty AREVALO, Rosana Primary Care Provider KATTY, ROSANA Primary Care Unavailable KATTY, ROSANA Referring Unavailable ALEYDA GOMEZ Admitting Unavailable ALEYDA GOMEZ Attending Unavailable Katty WATER SERVICE SUPERVISOR - IRINA Rosana M Primary Care Provider Agus Madera Unavailable [phone] Liz Billingsley Unavailable ROSALIA ., DR SUTTON Admitting Unavailryne e ROSALIA ., DR SUTTON Attending Unavailabl e AICHHOLZ, JOCKEY ROOM CUSTODIAN TERE Primary Care Unavailable DR LESLEY HAWKINS Consulting Unavailabl e AICHHOLZ, JOCKEY ROOM CUSTODIAN TERE Admitting Unavailable AICHHOLZ, JOCKEY ROOM CUSTODIAN TERE Attending Unavailable AICHHOLZ, JOCKEY ROOM CUSTODIAN TERE Primary Care Unavailable AICHHOLZ, JOCKEY ROOM CUSTODIAN TERE Consulting Unavailable AICHHOLZ, JOCKEY ROOM CUSTODIAN TERE Admitting Unavailable AICHHOLZ, JOCKEY ROOM CUSTODIAN TERE Attending Unavailable AICHHOLZ, JOCKEY ROOM CUSTODIAN TERE Primary Care Unavailable AICHHOLZ, JOCKEY ROOM CUSTODIAN TERE Consulting Unavailable DR Arthur MADERA Admitting Unavailable CASSY, DR Arthur Hansen Attending Unavailable AICHHOLZ, JOCKEY ROOM CUSTODIAN TERE Primary Care Unavailable BRIGIDA RAHMAN Attending Unavailable SILVESTRE PHIPPS Primary Care Unavailryne e Berenice Haile Unavailable GENOVEVA Haile Attending Provider GENOVEVA Haile Attending Provider NO FAMILY, PHYSICIAN Primary Care Provider Unava ilable GENOVEVA Haile Primary Care Provider GENOVEVA Pitts Attending Provider Ladarius Pitts Unavailable GENOVEVA Haile Primary Care Provider GENOVEVA Pitts Attending Provider EVANGELINA Hansen Attending Provider GENOVEVA Montgomery Primary Care Provider [phone] Lazara TOMAS-Berenice MCDOWELL Primary Care [facility] er Berenice Haile NP Primary Care Provider Lazara TOMAS-Berenice MCDOWELL Primary Care [facility] er GENOVEVA Haile Primary Care Provider DO Nazario Torres Emergency Provider Berenice Haile Admitting Unavailable Berenice Haile Attending Unavailable NO FAMILY, PHYSICIAN Primary Care Unavailable Ladarius Pitts Attending Unavailable Rohrbacher, Berenice Primary Care Unavailable Ladarius Pitts Admitting Unavailable Ulises, Lola Hansen Primary Care Unavailable Johana Hansen Admitting Unavailable Johana Hansen Attending Unavailable Rohrbacher, Berenice Primary Care Unavailable KeisterNazario Admitting Unavailable KeNazario acosta Attending Unavailable ROHRBACHER, BERENICE Referring Unavailable ROHRBACHER, BERENICE Primary Care Unavailable ROHRBACHER, BERENICE Referring Unavailable ROHRBACHER, BERENICE Primary Care Unavailable ELAYNE LUCIANO Attending Unavailable AICHHOLZ, TERE J Referring Unavailable AICHHOLZ, TERE J Primary Care Unavailable ELAYNE LUCIANO Referring Unavailable AICHHOLZ, TERE J Primary Care Unavailable BLAKE COREA Attending Unavailable BLAKE COREA Attending Unavailable RENETTA PASTOR Attending Unavailable BLAKE COREA Attending Unavailable Jesús Savana Unavailable Unavailable Aichholz WATER SERVICE SUPERVISOR-JOCKEY ROOM CUSTODIAN, Tere J Primary Care Provider JASWANT HUSSEIN Attending Unavailable ROHRBACHER, BERENICE Referring [...] Attending Unavailable ANUP BUTLER Referring Unavailable AICHHOLZ, TEER J Primary Care Unavailable DECLAN MONK Attending Unavailable AICHHOLZ, TERE J Primary Care Unavailable Kylah Gould Referring Unavailable AICHHOLZ, TERE J Primary Care Unavailable ROHRBACHER, BERENICE Referring Unavailable BERENICE HAILE Primary Care Unavailable ELAYNE LUCIANO Referring Unavailable AICHHOLZ, TERE Wayne Primary Care Unavailable ELAYNE LUCIANO Referring Unavailable AICHHOLZ, TERE J Primary Care Unavailable YUMIKO ELIZALDE Attending Unavailable AICHHOLZ, TERE J Referring Unavailable AICHHOLZ, TERE J Primary Care Unavailable ANUP BUTLER Attending Unavailable ANUP BUTLER Referring Unavailable AICHHOLZ, TERE J Primary Care Unavailable BUTLER, ANUP E Admitting Unavailable BUTLER, ANUP E Attending Unavailable AICHHOLZ, TERE J Referring Unavailable AICHHOLZ, TERE J Primary Care Unavailable ANUP BUTLER E Attending Unavailable ANUP BUTLER E Referring Unavailable AICHHOLZ, TERE J Primary Care Unavailable BUTLER, ANUP E Admitting Unavailable BUTLRE, ANUP E Attending Unavailable BUTLER, ANUP E Referring Unavailable AICHHOLZ, TERE J Primary Care Unavailable YUMIKO ELIZALDE Attending Unavailable AICHHOLZ, TERE J Referring Unavailable AICHHOLZ, TERE J Primary Care Unavailable Allergies Allergy Classification Reported Allergen(s) Allergy Type Date of Onset Reaction(s) Facility Acetaminophen / Codeine (1 source) Acetaminophen / Codeine; Translations: [ACETAMINOPHEN-CODE INE] Drug Allergy 019 [facility] Repository Cephalosporins (antibiotic) (3 sources) Cefaclor; Translations: [CEPHALOSPORINS] Drug Allergy [facility] Repository NSAIDs (2 sources) NSAIDs; Translations: [IBUPROFEN] Drug Allergy 016 [facility] Repository Opioid Agonists (2 sources) fentaNYL; Translations: [CODEINE] Drug Allergy 017 Fentanyl [facility] Repository Penicillins (antibiotic) (7 sources) Penicillins; Translations: [AMOXICILLIN] Drug Allergy 015 Shock [facility] Repository Sulfamethoxazole / Trimethoprim (1 source) Sulfamethoxazole / Trimethoprim Drug Allergy 020 [facility] Work Phone: Unclassified (1 source) TYLENOL CODEINE #3; Translations: [TYLENOL CODEINE #3] Propensity to adverse reactions (disorder) [facility] Repository (20 sources) amoxicillin; Translations: [amoxicillin] Drug Allergy 017 [facility], Unknown, Unknown Reaction [facility] Repository (20 sources) ampicillin; Translations: [Ampicillin] Drug Allergy [facility] (20 sources) Penicillins; Translations: [PENICILLINS] Allergy to substance (disorder) 013 Anaphylaxis, Shock, Hives, Rash [facility] (20 sources) Vespid (bees, hornets, wasps, yellow jackets); Translations: [Vespid (bees, hornets, wasps, yellow jackets)] Allergy to substance (disorder) [facility] (6 sources) -No Known Food Allergies Allergy to substance (disorder) [facility] (1 source) penicillin; Translations: [PENICILLIN] Drug Allergy 018 AOF [facility] Repository (4 sources) amoxicillin; Translations: [amoxicillin] Drug Allergy [facility] (4 sources) ampicillin; Translations: [Ampicillin] Drug Allergy [facility] (20 sources) Amoxicillin Drug Allergy 015 Anaphylaxis, Hives, Rash [place], [place] (20 sources) Cefaclor; Translations: [CEFACLOR] Drug Allergy 015 Hives, Other (See Comments), Anaphylaxis [place], [place] (20 sources) Codeine; Translations: [CODEINE] Drug Allergy 015 Hives, Rash [place] (16 sources) NSAIDs; Translations: [NSAIDS (Non-Steroidal Anti-Inflammatory Drug)] Allergy to substance 016 [facility] Repository (10 sources) fentaNYL Drug Allergy Fentanyl [facility] Work Phone: (9 sources) Sulfamethoxazole / Trimethoprim Drug Allergy 020 Skin Rashes [facility] Work Phone: (16 sources) Cefaclor; Translations: [Ceclor] Drug Allergy Unknown [facility] Repository (20 sources) Penicillin G Drug Allergy Anaphylaxis, Rash, Unknown [facility] Other (2 sources) Amoxicillin Drug Allergy [facility] Repository (2 sources) Codeine Drug Allergy [facility] Repository (3 sources) Acetaminophen; Translations: [acetaminophen] Drug Allergy Unknown Reaction [facility] (8 sources) Latex; Translations: [latex] Allergy to substance Unknown Reaction, Rash [facility] (14 sources) Acetaminophen / Codeine; Translations: [ACETAMINOPHEN-CODE INE] Drug Allergy [facility] (3 sources) Non-steroidal anti-inflammatory agent Drug Allergy [facility] (1 source) Amoxicillin Drug Allergy [facility] Repository (1 source) Cefaclor Drug Allergy [facility] Repository (1 source) Codeine Drug Allergy [facility] Repository (1 source) Penicillin Drug Allergy [facility] Repository (1 source) Wound Dressing Adhesive Drug Allergy [facility] Medications Current Medications Medication Drug Class(es) Dates Sig (Normalized) Sig (Original) acetaminophen 325 mg oral tablet (13 sources) Start: 12-14-2023 take 1 capsule by mouth every six hours for pain acetaminophen (Tylenol) 325 MG tablet Indications: Postoperative visit TAKE 1 CAPSULE BY MOUTH EVERY 6 HOURS IF NEEDED FOR MILD PAIN. 120 tablet 12/14/2023 Active Start: 12-08-2022 End: 12-08-2023 take 1 capsule [...] Start: 10-15-2018 acetaminophen (TYLENOL) tablet 1,000 mg acetaminophen 325 mg / oxyCODONE hydrochloride 5 mg oral tablet (20 sources) Opioid Agonist Start: 09-23-2023 oxyCODONE-acet aminophen (PERCOCET) 5-325 mg per tablet Indications: S/P lumbar fusion , Low back pain, unspecified back pain laterality, unspecified chronicity, unspecified whether sciatica present , Neck pain Take 1 tablet by mouth every 12 (twelve) hours as needed for pain. Max Daily Amount: 2 tablets 28 tablet 09/23/2023 Active Start: 2019 End: 2019 oxyCODONE-acetaminophen (PER COCET) 5-325 MG per tablet 2 tablet Start: [...] oral route every 6 hours as needed acyclovir 400 mg oral tablet (4 sources) [...] Probiotic Oral Capsule 03/06/2019 Provider: Rosana Alaniz JOCKEY ROOM CUSTODIAN Alcohol Prep Pad (16 sources) Start: 05-06-19 Alcohol Prep Pad 05/05/2018 Provider: Alcohol Prep Pad (2 sources) Start: 05-06-19 Alcohol Prep Pad 05/05/2018 Provider: Alpha Lipoic Acid-Vitamin E (4 sources) Alpha Lipoic Acid-Vitamin E Active amitriptyline hydrochloride 10 mg oral tablet (20 sources) Tricyclic Antidepressant Start: 01-25-20 End: 04-27-19 24 take 10 mg by mouth once daily at bedtime Amitriptyline Active 10 MG PO Daily at bedtime May 26, 2023 12:00am Start: 03-08-2019 End: 03-08-2019 Amitriptyline HCl 25 [...] once daily at bedtime increased by dr bowie [facility] once daily at bedtime amitriptyline 50 mg [...] - 02/04/2020 Provider: take 1 capsule by [facility] every twenty-four hours Adderall XR 20 MG 1 capsule in the morning Orally Once a day Not-Taking/PRN take 1 capsule by [facility] once daily in the morning amphetamine-dextroamphetamine (ADDERALL [...] Start: 12-09-2016 take 2 tablets by mo uth once daily, then take 1 tablet by [...] mg total) by mouth daily as needed. 06/01/2021 Active Start: 05-24-2019 End: 03-13-2020 Calcium [...] Units total) by mouth in the morning. Active take 1 tablet by enriqueta th [...] CNP cyclobenzaprine hydrochloride 10 mg oral tablet (16 sources) Muscle Relaxant Start: 09-30-2023 take 1 tablet by mouth three times daily as needed for muscle spasms cyclobenzaprine (FLEXERIL) 10 mg tablet Indications: DDD (degenerative disc disease), lumbosacral Take 1 tablet (10 mg total) by mouth 3 (three) times a day as needed for muscle spasms. 30 tablet 09/30/2023 Active Start: 03-16-2023 take 1 tablet by enriqueta th in the morning, then take 1 tablet by mouth at bedtime cyclobenzaprine (FLEXERIL) 10 mg tablet Indications: S/P lumbar fusion Take 1 tablet (10 mg total) by mouth in the morning and 1 tablet (10 mg total) before bedtime. 60 tablet 03/16/2023 Active Start: 12-16-2022 End: 03-16-2023 take 1 tablet [...] Start: 04-01-2018 End: 02-04-2020 [facility]ADINE 4 [facility] 02[facility]2020 Provider: Start: 04-01-2018 End: 04-01-2018 CYPROHEPTADINE 4 MG [facility] - 04/01/2018 Provider: Start: 04-01-2018 End: 04-01-2018 CYPROHEPTADINE 4MG [facility] 03/08 - 04/01/2018 [...] by mouth 2 (two) times a day. 06/07/2021 Active Start: 03-31-2017 End: 11-12-2020 Furosemide [...] Provider: lisdexamfetamine dimesylate 50 mg oral capsule (20 sources) Central Nervous System Stimulant Start: 05-26-2023 take 50 mg by mouth once daily Lisdexamfetamine Active 50 MG PO Daily May 26, 2023 12:00am Start: 12-01-2022 take 1 capsule by mo ut at bedtime lisdexamfetamine (VYVANSE) 30 mg capsule Take 1 capsule (30 mg total) by mouth in the morning and at bedtime. 12/01/2022 Active take 1 capsule by mo uth in the morning lisdexamfetamine (Vyvanse) 60 MG capsule Take 60 mg by mouth in the morning. Active take 1 capsule by mo uth every twenty-four hours Vyvanse 50 MG 1 capsule in the morning Orally Once a day Active loratadine 10 mg oral tablet (20 sources) Start: 04-01-2018 End: 02-04-2020 Loratadine 10 MG Oral Tablet 03/08/2019 Provider: meloxicam 7.5 mg oral tablet (15 sources) Nonsteroidal Anti-inflammatory Drug Start: 06-26-2019 End: 11-12-2020 Meloxicam 7.5 MG Oral Tablet 11/12/2020 Provider: Rosana Alaniz JOCKEY ROOM CUSTODIAN methylPREDNISolone (20 sources) Corticosteroid Start: 10-25-2023 methylPREDNISolone (MEDROL, NICO,) 4 mg tablet Indications: Intervertebral disc stenosis of neural canal of cervical region follow package directions 21 tablet 10/25/2023 Active Start: 12-16-2022 methylPREDNISo lone (MEDROL, NICO,) 4 mg tablet Indications: Spinal [...] multivit with minerals/lutein (MULTIVITAMIN 50 PLUS ORAL) (9 sources) multivit with minerals/lutein (MULTIVITAMIN 50 PLUS ORAL) 1 tablet Active multivit with mi nerals/lutein (MULTIVITAMIN 50 PLUS ORAL) 1 tablet 0 [...] Opioid Reversal 1 each 2 01/29/2019 Active naloxone (NARCAN) 4 mg/actuation spray,non-aerosol nasal spray (1 source) Start: 08-26-2023 naloxone (NARCAN) 4 mg/actuation spray,non-aerosol nasal spray Administer 1 spray (4 mg total) into alternating nostrils as needed for opioid reversal. 1 each 1 08/26/2023 Active naratriptan 2.5 mg oral tablet (9 sources) Serotonin-1b and Serotonin-1d Receptor Agonist Start: 05-25-2021 naratriptan (AMERGE) 2.5 mg tablet TAKE 1 TABLET BY MOUTH NEEDED FOR MIGRAINE. MAX OF 2 TABLETS IN 24 HOURS 05/25/2021 Active nystatin 285408 unt/ml / triamcinolone acetonide 1 mg/ml topical cream (20 sources) Polyene Antifungal, Corticosteroid Start: 11-20-2018 End: 02-20-2019 Nystatin-Triamcinolon e 434904-5.1 UNIT/GM-% External Cream 02/20/2019 Provider: Rosana Alaniz [...] Start: 04-01-2018 End: 02-04-2020 ONDANSETRON 4 mg [facility] 2018 - 02/04/2020 Provider: Start: 04-01-2018 End: 04-01-2018 ONDANSETRON 4 mg [facility] 2018 - 04/01/2018 [...] Start: 05-25-2021 take 1 tablet by mouth in the morning pantoprazole (PROTONIX) 40 mg EC tablet Take 1 tablet (40 mg total) by mouth in the morning. 05/25/2021 Active Start: 03-08-2019 End: 03-08-2019 Pantoprazole Sodium 40 [...] Chloride Active 10 MEQ PO Daily 90 April 28, 2023 2:08pm Start: 05-05-2018 End: 08-19-2020 Potassium Chloride ER 20MEQ Oral Tablet Extended Release 08/22/2018 - 09/03/2019 Provider: Rosana Alaniz CNP Start: 04-01-2018 End: 02-04-2020 POTASSIUM CHLORIDE 20 mEq [facility] 04/01/2018 - 02/04/2020 Provider: Start: 04-01-2018 End: 04-01-2018 POTASSIUM CHLORIDE 20 mEq [facility] 04/01/2018 - 04/01/2018 Provider: Start: 07-14-2017 End: 02-04-2020 POTASSIUM CHLORIDE 20 mEq [facility] 07/14/2017 - 02/04/2020 Provider: Start: 07-14-2017 End: 07-14-2017 POTASSIUM CHLORIDE 20 mEq [facility] 07/14/2017 - 07/14/2017 Provider: Start: 07-14-2017 [...] Start: 04-01-2018 End: 02-04-2020 LYRICA 225 MG [facility] - 02/04/2020 Provider: Start: 04-01-2018 End: 04-01-2018 LYRICA 225 MG [facility] - 04/01/2018 Provider: Start: 04-01-2018 End: 04-01-2018 LYRICA 225MG [facility]ISC 04/01/2018 - 04/01/2018 Provider: take 1 capsule by mo uth in the morning pregabalin (Lyrica) 25 MG capsule Take 25 mg by mouth in the morning and 25 mg before bedtime. Active take 1 capsule by mo uth [...] tablet Active 1 TAB PO Twice daily 12 09October 06, 2023 12:00am Start: 05-26-2023 End: 06-15-2023 [...] CNP traMADol hydrochloride 50 mg oral tablet (3 sources) Opioid Agonist Start: 01-20-2022 take 1 tablet by mouth twice daily as needed traMADol (Ultram) 50 MG tablet Take 50 mg by mouth 2 (two) times a day as needed. 01/20/2022 Active traZODone hydrochloride 100 mg oral [...] Virus Nucleoside Analog DNA Polymerase Inhibitor Start: 10-27-2023 take 1 tablet by mouth once daily valACYclovir (Valtrex) 1 g tablet Indications: Exposure to STD TAKE 1 TABLET BY MOUTH EVERY DAY 30 tablet 10/27/2023 Active Start: 02-16-2023 take 1 tablet by enriqueta th in the morning valACYclovir (Valtrex) 1 g tablet Indications: Exposure to STD TAKE 1 TABLET (1000 MG) BY MOUTH IN THE MORNING 10 tablet 1 02/16/2023 Active Start: 08-16-2017 End: 02-04-2020 VALACYCLOVIR 500 mg [facility] 02/2018 - 02/04/2020 Provider: Start: 08-16-2017 End: 08-16-2017 VALACYCLOVIR 500 mg [facility] 02/2018 - 08/16/2017 [...] 1ML IN THE MUSCLE ONCE A MONTH 06/01/2021 Active Start: 01-21-2019 End: 12-10-2020 Cyanocobalamin 1000 MCG/ML Injection Solution 12/10/2020 Provider: Rosana Alaniz CNP Start: 01-21-2019 Cyanocobalamin 1000 MCG/ML Injection Solution 01/21/2019 Provider: Rosana Alaniz CNP Start: 01-21-2019 Cyanocobalamin 1000 MCG/ML Injection Solution 01/21/2019 Provider: Rosana Alaniz CNP Start: 05-05-2018 Cyanocobalamin 1000MCG/ML Injection Solution 05/05/2018 Provider: Start: 04-01-2018 End: 04-01-2018 CYANOCOBALAMIN (VITAMIN B-12 ) 1,000MCG/ML [facility] 04/01/2018 - 04/01/2018 Provider: Start: 02-16-2018 take 1 mL by intramu scular injection every month cyanocobalamin (vitamin B-12) 1,000 mcg/mL injection solution 02/16/2018 inject 1 milliliter (1,000 mcg) by intramuscular route once a month Start: 02-16-2018 End: 02-16-2018 CYANOCOBALAMIN (VITAMIN B-12 ) 1,000MCG/ML [facility] 02/16/2018 - 02/16/2018 Provider: Start: 12-22-2017 End: [...] Start: 04-01-2018 End: 02-04-2020 FIORICET 50-300-40 MG MISC 04/01/2018 - 02/04/2020 Provider: Start: 04-01-2018 End: 04-01-2018 FIORICET 50-300-40 MG MISC 04/01/2018 - 04/01/2018 Provider: Start: 04-01-2018 End: 04-01-2018 FIORICET 50-300-40MG [facility] 04/01/2018 - 04/01/2018 Provider: take 1 tablet by enriqueta th twice daily as needed for headache aksddlogrs-nikeiddbzzcde-yvzykagc (FIORICET, ESGIC) 50-325-40 MG per tablet Take [...] not to exceed 6 capsules per 24hrs Acidophilus Probiotic Oral Tablet (16 sources) Start: [...] Start: 04-01-2018 End: 04-01-2018 BENZOYL PEROXIDE 5% [facility] - 04/01/2018 Provider: benzoyl peroxide 5 % [...] oral solution (17 sources) alpha-Adrenergic Agonist, Uncompetitive W-yitjqf-X-aspartate Receptor Antagonist, Sigma-1 Agonist Start: 03-29-2017 take 5-10 mL by mouth every four to six hours as needed for cough Bromfed DM 2-30-10 mg/5 mL oral syrup 03/29/2017 take 5-10 milliliters by oral route every 4-6 hours as needed for cough Brompheniramine / Pseudoephedrine (20 sources) alpha-Adrenergic Agonist Start: 08-18-2017 End: 02-04-2020 BROMFED DM 2-30-10 MG/5 ML [facility] 08/18/2017 - 02/04/2020 Provider: Start: 08-18-2017 End: 08-18-2017 BROMFED DM 2-30-10 MG/5 ML [place] 08/18/2017 - 08/18/2017 Provider: Start: 08-18-2017 End: 08-18-2017 BROMFED DM 2-30-10MG/5 ML [place] 08/18/2017 - 08/18/2017 Provider: Start: 03-29-2017 End: 02-04-2020 BROMFED DM 2-30-10 MG/5 ML [place] 03/29/2017 - 02/04/2020 Provider: Start: 03-29-2017 End: 03-29-2017 BROMFED DM 2-30-10 MG/5 ML [place] 03/29/2017 - 03/29/2017 Provider: Start: 03-29-2017 End: 03-29-2017 BROMFED DM 2-30-10MG/5 ML [place] 03/29/2017 - 03/29/2017 Provider: Start: 01-06-2017 End: 02-04-2020 BROMFED DM 2-30-10 MG/5 ML [facility] 01/06/2017 - 02/04/2020 Provider: Start: 01-06-2017 End: 01-06-2017 BROMFED DM 2-30-10 MG/5 ML [facility] 01/06/2017 - 01/06/2017 Provider: Start: 01-06-2017 End: 01-06-2017 BROMFED DM 2-30-10MG/5 ML [place] 01/06/2017 - 01/06/2017 Provider: Calcium (20 sources) [...] Start: 08-16-2017 take 1 tablet by enriqueta th once daily Zyrtec 10 mg oral tablet 08/16/2017 take 1 tablet (10 mg) by oral route once daily (d/c claritin) Start: 08-16-2017 End: 02-04-2020 ZYRTEC 10 mg [facility] 08/16/2017 - 02/04/2020 Provider: Start: 08-16-2017 End: [...] Provider: take 1 capsule by mo uth four times daily clindamycin HCl 300 mg [...] 04/01/2018 Provider: take 1 capsule by mo [facility] once daily duloxetine 60 mg oral capsule,delayed [...] Glucose Scanning Reade r (Freestyle Vy 2 Picabo) misc (3 sources) Start: 04-28-2023 End: 10-06-2023 Flash Glucose Scanning Reade r (Freestyle Vy 2 Picabo) misc Discontinued 0 .Route 1 April 28, 2023 1:00am October 06, 2023 1:18pm As directed Start: 04-28-2023 Flash Glucose Scanning Picabo (Freestyle Vy 2 Picabo) misc Active 0 .Route 1 April 28, [...] needed for Pain. 0 Active lactobacillus acidophilus [id number] unt oral capsule (9 sources) Start: 02-16-2018 take 1 capsule by mouth once daily Probiotic 10 billion cell oral capsule 02/16/2018 take 1 capsule by oral route daily Start: 02-01-2017 take 1 capsule by [facility] once daily Probiotic 10 billion cell oral capsule 02/01/2017 take 1 capsule by oral route daily loperamide hydrochloride 2 mg oral tablet (20 sources) Opioid Agonist Start: 01-06-2017 End: 02-04-2020 Imodium A-D 2 MG OR TABS 01/06/2017 - 02/04/2020 Provider: MAXALT-TRUCK LOADER OVERHEAD CRANE 10 MG MISC (20 sources) Start: 01-25-2018 End: 01-25-2018 MAXALT-TRUCK LOADER OVERHEAD CRANE 10 MG MISC 01/25/2018 - 01/25/2018 Provider: Start: 08-16-2017 End: 08-16-2017 MAXALT-TRUCK LOADER OVERHEAD CRANE 10 MG MISC 2017 - 08/16/2017 Provider: Start: 05-20-2017 End: 05-20-2017 MAXALT-TRUCK LOADER OVERHEAD CRANE 10 MG MISC 2017 - 05/20/2017 Provider: Start: 02-01-2017 End: 02-01-2017 MAXALT-TRUCK LOADER OVERHEAD CRANE 10 MG MISC 2016 - 02/01/2017 Provider: MAXALT-TRUCK LOADER OVERHEAD CRANE 10 MG MISC (10 sources) Start: 01-25-2018 End: 02-04-2020 MAXALT-TRUCK LOADER OVERHEAD CRANE 10 MG MISC 2017 - 02/04/2020 Provider: Start: 08-16-2017 End: 02-04-2020 MAXALT-TRUCK LOADER OVERHEAD CRANE 10 MG MISC 2017 - 02/04/2020 Provider: Start: 05-20-2017 End: 02-04-2020 MAXALT-TRUCK LOADER OVERHEAD CRANE 10 MG MISC 2017 - 02/04/2020 Provider: Start: 02-01-2017 End: 02-04-2020 MAXALT-TRUCK LOADER OVERHEAD CRANE 10 MG MISC 2016 - 02/04/2020 Provider: MAXALT-TRUCK LOADER OVERHEAD CRANE 10MG MISC (15 sources) Start: 01-25-2018 End: 01-25-2018 MAXALT-TRUCK LOADER OVERHEAD CRANE 10MG MISC 018 - 01/25/2018 Provider: Start: 08-16-2017 End: 08-16-2017 MAXALT-TRUCK LOADER OVERHEAD CRANE 10MG MISC 018 - 08/16/2017 Provider: Start: 05-20-2017 End: 05-20-2017 MAXALT-TRUCK LOADER OVERHEAD CRANE 10MG MISC 018 - 05/20/2017 Provider: Start: 02-01-2017 End: 02-01-2017 MAXALT-TRUCK LOADER OVERHEAD CRANE 10MG MISC 017 - 02/01/2017 Provider: Medical [...] 04-01-2018 DEPO-PROVERA MISC 04/01/2018 - 04/01/2018 Provider: Kathrin int ramuscular methocarbamol 500 mg oral tablet [...] 07/16/2019 Provider: Rosana Alaniz CNP polymyxin b [id number] unt/ml / trimethoprim 1 mg/ml ophthalmic solution [...] - 02/04/2020 Provider: PROBIOTIC 10 billion CELL [place] (20 sources) Start: 02-16-2018 End: 02-16-2018 PROBIOTIC 10 billion CELL MISC 02/16/2018 - 02/16/2018 Provider: Start: 02-01-2017 End: 02-01-2017 PROBIOTIC 10 billion CELL [place] 02/01/2017 - 02/01/2017 Provider: PROBIOTIC 10 billion CELL [place] (4 sources) Start: 02-16-2018 End: 02-04-2020 PROBIOTIC 10 billion CELL [place] 02/16/2018 - 02/04/2020 Provider: Start: 02-01-2017 End: 02-04-2020 PROBIOTIC 10 billion CELL [place] 02/01/2017 - 02/04/2020 Provider: PROBIOTIC 10 [...] Start: 11-24-2017 End: 02-04-2020 PROMETHAZINE 25 MG [facility] 11/06 - 02/04/2020 Provider: Start: 11-24-2017 End: 11-24-2017 PROMETHAZINE 25 MG [facility] 11/06 - 11/24/2017 Provider: Start: 11-24-2017 End: 11-24-2017 PROMETHAZINE 25MG [facility] 11/24 - 11/24/2017 Provider: take 1 tablet [...] Start: 05-05-2018 take 1 capsule by mo [facility] every twenty-four hours Propranolol HCl ER 160MG Oral Capsule Extended Release 24 Hour 05/05/2018 Provider: Start: 04-01-2018 End: 02-04-2020 PROPRANOLOL 160 MG [facility] 04/01/2018 - 02/04/2020 Provider: Start: 04-01-2018 End: 04-01-2018 [facility]OL [facility] 04/01/2018 - 04/01/2018 Provider: Start: 04-01-2018 End: 04-01-2018 PROP[facility]ANOLOL 160[facility] 04/01 - 04/01/2018 Provider: Start: 11-24-2017 take 1 capsule by mouth once d aily propranolol 160 mg oral capsule,extended release 24 hr 11/24/2017 take 1 capsule (160 mg) by oral route once daily Start: 11-24-2017 End: 02-04-2020 PROPRANOLOL 160 MG [facility] 11/24/2017 - 02/04/2020 Provider: Start: 11-24-2017 End: 11-24-2017 PROPRANOLOL 160 MG [facility] 11/24/2017 - 11/24/2017 Provider: Start: 11-24-2017 End: 11-24-2017 PROPRANOLOL 160MG [facility] 11/24 - 11/24/2017 Provider: Start: 05-26-2017 take 1 capsule by mouth once d aily propranolol 160 mg oral capsule,extended release 24 hr 05/26/2017 take 1 capsule (160 mg) by oral route once daily Start: 05-26-2017 End: 02-04-2020 PROPRANOLOL 160 MG [facility] 05/26/2017 - 02/04/2020 Provider: Start: 05-26-2017 End: 05-26-2017 PROPRANOLOL 160 MG [facility] 05/26/2017 - 05/26/2017 Provider: Start: 05-26-2017 End: 05-26-2017 PROPRANOLOL 160MG [facility] 05/26 - 05/26/2017 [...] 01/21/2019 Provider: Rosana Alaniz CNP Start: 01-25-2018 Maxalt-TRUCK LOADER OVERHEAD CRANE 10 mg oral tablet,disintegrating 01/25/2018 DISSOLVE 1 TABLET (10 MG) ON TOP OF THE TONGUE, THEN SWALLOW BY ORAL ROUTE ONCE, MAY REPEAT IN 2 HOURS, NOT AT SAME TIME IMITREX Start: 08-16-2017 Maxalt-TRUCK LOADER OVERHEAD CRANE 10 mg oral tablet,disintegrating 08/16/2017 dissolve 1 tablet (10 mg) on top of the tongue, then swallow by oral route once, may repeat in 2 hours, not at same time as imitrex Start: 08-16-2017 Maxalt-TRUCK LOADER OVERHEAD CRANE 10 mg oral tablet,disintegrating 08/16/2017 dissolve 1 [...] mg total) by mouth once as needed. Active Tab-A-Raegan (8 sources) Start: 11-24-2017 take [...] route daily tiZANidine 4 mg oral tablet (14 sources) Central alpha-2 Adrenergic Agonist Start: 2 [...] the evening and 4 mg before bedtime. Active tiZANidine HCl 4 MG Orally Q [...] sources) Endometriosis, site unspecified Chronic Esophageal disorders (9 sources) Gastroesophageal reflux disease; Translations: [Gastro-esophageal reflux disease without esophagitis] Onset: 2 08-25-2021 Chronic Female infertility (1 source) Female infertility; Translations: [Female infertility, unspecified] Onset: 4 10-06-2023 Chronic Headache, including migraine (20 sources) Migraine, [...] Hypoglycemia; Translations: [Hypoglycemia, unspecified] 04-28-2023 Chronic Other endocrine disorders (1 source) Polycystic ovary syndrome; Translations: [Polycystic ovarian syndrome] Onset: 4 10-06-2023 Chronic Other female genital disorders (1 source) Other specified noninflammatory disorders of vagina; Translations: [OTH SPEC NONINFLAMMATORY D/O VAGINA] Onset: 3 Episodic Other gastrointestinal disorders (9 sources) Irritable bowel syndrome; Translations: [Irritable bowel [...] Translations: [Altered mental status, unspecified] 06-15-2023 Episodic Spondylosis; intervertebral disc disorders; other back [...] intervertebral disc of lumbar spine] Substance-related disorders (15 sources) Substance abuse; Translations: [Other psychoactive substance [...] pain, unspecified] Onset: 3 Urinary tract infections (9 sources) Recurrent urinary tract infection; Translations: [Urinary tract infection, site not specified] 06-24-2016 Episodic Past or Other Problems Problem Classification Problem Date Documented Da te Episodic/Chronic Administrative/social admission (8 sources) Other reasons for seeking consultation Onset: 12-09-2016 Episodic Calculus of urinary tract (9 sources) Kidney stone; Translations: [Calculus of kidney] Onset: 02-21-2017 03-20-2023 Episodic Coma; stupor; and brain damage (1 [...] Dermatitis] Onset: 06-01-2018 Episodic Other skin disorders (9 sources) Hidradenitis suppurativa; Translations: [Hidradenitis suppurativa] Onset: 09-03-2016 09-03-2016 Episodic Other upper respiratory disease (16 sources) Other disease of nasal cavity and sinuses Onset: 02-22-2017 Episodic Residual codes; unclassified (2 sources) Family history of diabetes mellitus Onset: 01-06-2017 Episodic Residual codes; unclassified (2 sources) Personal history of other specified conditions; Translations: [Personal history of other specified diseases] Onset: 08-12-2021 08-24-2021 Episodic Residual codes; unclassified (3 sources) Localized [...] [Transient alteration of awareness] Onset: 06-01-2023 Episodic Skin and subcutaneous tissue infections (20 sources) Local infection of the skin and subcutaneous tissue, unspecified; Translations: [Impetigo] Onset: 10-23-2017 Episodic Substance-related disorders (2 sources) Accidental heroin [...] Test Name Value Interpretation Reference Range Facility ALL PROGESTERONEon 4 PROGESTERONE 0.3 ng/mL . [facility] Comment on above: Follicular phase 0.1 - 0.9 Luteal phase 1.8 - 23.9 Ovulation phase 0.1 - 12.0 First trimester 11.0 - 44.3 Second trimester 25.4 - 83.3 Third trimester 58.7 - 214.0 Postmenopausal 0.0 - 0.1 Performed at: [facility] [address] [id number] System Administration Manager: Sea Diaz PhD, Phone: [phone] [facility] CREATININEon 09-15-2023 Creatinine [Mass/Vol] 0.68 mg/dL Normal 0.40-1.00 [facility] Comment on above: Result Comment: METH OD TRACEABLE TO IDMS STANDARD Performed By: #### C GALILEO ROBLES, 18264-7, 3016-3, 75461-5, 9 #### [facility] ([id number]) [address], [address] [place] [address] eGFR (CKD-EPI) NON-RACE DEPENDENT >90 Normal >59 [facility] Comment on above: Result Comment: Reported eGFR is based on the CKD-EPI 2020 equation that does not use a race coefficient. Performed By: #### C GALILEO ROBLES, 41577-4, 3016-3, 13147-1, 9 #### [facility] ([id number]) [address], [address] [place] [address] CT CERVICAL SPINE W CONTon 0 09-15-2023 [...] Gould MD on 09/15/2023 1:31 PM Normal [facility] CT LUMBAR SPINE W CONTon CT [...] Gould MD on 09/15/2023 1:26 PM Normal [facility] IR MYELOGRAM 2+ REGIONS COMP [facility] 09-15-2023 IR MYELOGRAM 2+ REGIONS COMPLETE IR [...] cutaneous antisepsis were utilized throughout this procedure. [place] protocol timeout verification performed. Procedure: The patient [...] Gould MD on 09/15/2023 1:05 PM Normal [facility] PLATELET COUNT AND MPVon Platelet mean volume (Bld) [Entitic vol] 8.0 fL Normal 7-12 [facility] Comment on above: Performed By: #### C GALILEO ROBLES, 84470-5, 3016-3, 99551-3, 2131-11 #### [facility] ([id number]) [address], [address] [place] [address] Platelets (Bld) [#/Vol] 262 10*3/uL Normal 150-450 [facility] Comment on above: Performed By: #### C TRAVIS, CMP, 59559-8, 3016-3, 16599-0, 2131-11 #### [facility] ([id number]) [address], [address] [place] [address] PROTIME AND INRon 09-15-2023 INR Coag (PPP) [Relative time] 1.1 {INR} Normal 0.8-1.1 [facility] Comment on above: Performed By: #### C BCA, CMP, 74146-6, 3016-3, 23315-7, 2131-11 #### [facility] ([id number]) [address], [address] [place] [address] PT Coag (PPP) [Time] 12.3 s Normal 9.8-13.2 [facility] Comment on above: Result Comment: NEW REFERENCE RANGE Performed By: #### C BCA, CMP, 17690-7, 3016-3, 18725-8, 2131-11 #### [facility] ([id number]) [address], [address] [place] [address] XR SPINE CERVICAL FLEXION/EX TENSION ONLYon 08-29-2023 [...] Norbert Lunsford on 08/29/2023 4:27 PM Normal [facility] Human papilloma virus 16+18+ 31+33+35+39+45+51+52+56+58+59+66+68 DNA [Presence] in [place] 08-15-2023 HPV 16+18+31+33+35+39+45+ 51+52+56+58+59+66+68 DNA Probe+sig amp Ql (Cvx) Negative Negative [facility] Comment on above: This nucleic acid am plification test detects fourteen high- risk HPV types (16,18,31,33,35,39,45,51,52,56,58,59,66,68)without differentiation.Performed at: = - [facility] [id number] Director: Korin Hernandez MD, Phone: [phone] at: [facility] [address] [id number] Director: Korin Hernandez MD, Phone: [phone] No Panel Informationon 08-14 HPV High Risk Other Comment Note . [facility] Comment on above: TESTS RESULT FLAG UN ITS REF RANGE LAB D IAGNOSIS: 02 NEGATIVE FOR INTRAEPITHELIAL LESION OR MALIGNANCY.Specimen adequacy: 02 Satisfactory for evaluation. Endocervical and/or squamous metaplastic cells (endocervical component) are present.Performed by: 02 Janeth Mercedes Nuclear Fuel Processing Technician (ASCP). 02Note: Note 02 The Pap smear [...] <-Panic Low,>-Panic High,A-Abnormal,AA-Critical Abnormal ----Performed at:[address] [address] Korin Hernandez MD, Reference Lab Test Patient Age Note . [facility] Comment on above: TESTS RESULT FLAG UN ITS REF RANGE LAB Clinician Provided Cytology Information Source.............Cervix;Endocervix No. of containers..01 ThinPrep VialAge Deysi WORKMAN Marcia... 30-65 FLAG LEGEND: L-Low Normal,H-High Normal,LL-Alert Low,HH-Alert High <-Panic Low,>-Panic High,A-Abnormal,AA-Critical Abnormal ----Performed at:01 =[facility] [address] [place] [address] Korin Hernandez MD, Activated partial thrombopla stin time (aPTT) in platelet poor plasma by coagulation aOrdered By: Nazario Torres on 06-15-2023 aPTT Coag (PPP) [Time] 30.4 s 25.1-36.5 [facility] Comment on above: A hematocrit value g reater than 55% may lead to inaccurate results in coagulation testing. Patients having hematocrit values >55% require a special collection tube for coagulation studies. Please contact the laboratory at [phone] for redraw instructions. Alanine aminotransferase [En zymatic activity/volume] in Serum or PlasmaOrdered By: Nazario Torres on 06-15-2023 ALT [Catalytic activity/Vol] 42 U/L 7-52 [facility] Albumin [Mass/volume] in Ser um or Plasma by Bromocresol green (BCG) dye binding methoOrdered By: Nazario Torres on 06-15-2023 Albumin BCG dye [Mass/Vol] 3.9 g/dL 3.5-5.7 [facility] Alkaline phosphatase [Enzyma tic activity/volume] in Serum or PlasmaOrdered By: Nazario Torres on 06-15-2023 ALP [Catalytic activity/Vol] 115 U/L 34-104 [facility] Ammoniaon 06-15-2023 Ammonia (P) [Moles/Vol] 21 umol/L Normal 11-35 [facility] Comment on above: Result Comment: PERF ORMED BY: [facility] [address] [place] [address] PATHOLOGIST [employer] SUPERINTENDENT LAURI PATEL M.D. Performed By: #### A MM, PT, CMP, PTT, HS TROP, CBC, CK ####[facility] [id number] [place] [id number] [facility] Ammonia [Moles/volume] in Pl asmaOrdered By: Nazario Torres on 06-15-2023 Ammonia (P) [Moles/Vol] 21 umol/L 11-35 [facility] Amphetamine Screen Ql (U)Ord ered By: Nazario Torres on 06-15-2023 Amphetamines Ql (U) Positive Negative [facility] Aspartate aminotransferase [ Enzymatic activity/volume] in Serum or PlasmaOrdered By: Nazario Torres on 06-15-2023 AST [Catalytic activity/Vol] 32 U/L 13-39 [facility] Automated erythrocytes count in urine sediment (number/area)Ordered By: Nazario Torres on 06-15-2023 RBC Auto (Urine sed) [#/Area] 1-2 [HPF] 0-4 [facility] Automated leukocytes count i n urine sediment (number/area)Ordered By: Nazario Torres on 06-15-2023 WBC Auto (Urine sed) [#/Area] 5-9 [HPF] 0-4 [facility] Barbiturates [Presence] in U rine by Screen methodOrdered By: Nazario Torres on 06-15-2023 Barbiturates Screen Ql (U) Negative Negative [facility] Basophils Auto (Bld) [#/Vol] Ordered By: Nazario Torres on 06-15-2023 Basophils (Bld) [#/Vol] 0.0 10*3/uL 0.0-0.2 [facility] Basophils/100 WBC Auto (Bld) Ordered By: Nazario Torres on 06-15-2023 Basophils/100 WBC (Bld) 0.2 % . [facility] Benzodiazepines Screen Ql (U )Ordered By: Nazario Torres on 06-15-2023 Benzodiazepines Ql (U) Negative Negative [facility] Benzoylecgonine [Presence] i n Urine by Screen methodOrdered By: Nazario Torres on 06-15-2023 Benzoylecgonine Screen Ql (U) Positive Negative [facility] Bilirubin Test strip Ql (U)O rdered By: Nazario Torres on 06-15-2023 Bilirubin Ql (U) Negative Negative [facility] Bilirubin.total [Mass/volume ] in Serum or PlasmaOrdered By: Nazario Torres on 06-15-2023 Bilirubin [Mass/Vol] 0.4 mg/dL 0.3-1.[address] [facility] [place] [address] head/brain wo conon 06-14 CT head/brain wo con [facility] [place] [address] CT Scan Report Signed Patient: Tyrone Lim MR#: [id number] : 1985 Acct:[id number] Age/Sex: 38 / F ADM Date: 06/15/23 [...] Jason Stone M.D.06/15/2023 12:37 PM Dictation Location: [place] [address] Transcribed By: BRAULIO 06/15/23 1237 Dictated By: Jason Stone II, MD 06/15/23 1234 Signed By: 06/15/23 1237 Normal [facility] Calcium [Mass/volume] in Ser um or PlasmaOrdered By: Nazario Torres on 06-15-2023 Calcium [Mass/Vol] 8.3 mg/dL 8.6-10.3 [facility] Cannabinoids [Presence] in U rine by Screen methodOrdered By: Nazario Torres on 06-15-2023 Cannabinoids Screen Ql (U) Positive Negative [facility] Comment on above: These are unconfirme d results and should not be used for legal purposes. Drug Cut-Off Concentration: AMPH 1000 ng/mL CHUYITA 200 ng/mL DINO 200 ng/mL COCM 300 ng/mL OP 300 ng/mL PCP 25 ng/mL THC 20 ng/mL Capillary blood glucose bharath urement by glucometer (mass/volume)Ordered By: Nazario Torres on 06-15-2023 Glucose [Mass/Vol] 105 mg/dL Normal [facility] Comment on above: Random Glucose Refer ence Range is dependent on time and content of last meal. Glucose of more than 200 mg/dL in a nonstressed, ambulatory subject supports the diagnosis of Diabetes Mellitus. Result Comment: [place] Glucose Reference Range is dependent on time and content of last meal. Glucose of more than 200 mg/dL in a nonstressed, ambulatory subject supports the diagnosis of Diabetes Mellitus. PERFORMED BY: [facility] [address] [place] [address] PATHOLOGIST [employer] SUPERINTENDENT LAURI PATEL M.D. Performed By: #### G LUADITYA ####Point of Care testing, Carbon dioxide, total [Moles /volume] in Serum or PlasmaOrdered By: Nazario Torres on 06-15-2023 CO2 [Moles/Vol] 23.8 mmol/L 21.0-31.0 [facility] Casts typing in urine sedime nt by light microscopyOrdered By: Nazario Torres on 06-15-2023 Casts LM Nom (Urine sed) None seen [LPF] None Seen [facility] Chloride [Moles/volume] in S bennett or PlasmaOrdered By: Nazraio Torres on 06-15-2023 Chloride [Moles/Vol] 109 mmol/L 98-107 [facility] Color Auto (U)Ordered By: Rohit Torres on 06-15-2023 Color (U) Yellow Yellow [facility] Complete Blood Count Auto Di ffon 06-15-2023 Basophils (Bld) [#/Vol] 0.0 10*3/uL Normal 0.0-0.2 [facility] Comment on above: Result Comment: PERF ORMED BY: [facility] [address] [facility] [place] [address] PATHOLOGIST [employer] SUPERINTENDENT LAURI PATEL M.D. Performed By: #### A MM, PT, CMP, PTT, HS TROP, CBC, CK ####[address] Basophils/100 WBC (Bld) 0.2 % Normal . [facility] Comment on above: Performed By: #### A MM, PT, CMP, PTT, HS TROP, CBC, CK ####[address] Eosinophils (Bld) [#/Vol] 0.2 10*3/uL Normal 0.0-0.45 [facility] Comment on above: Performed By: #### A MM, PT, CMP, PTT, HS TROP, CBC, CK ####[address] Eosinophils/100 WBC (Bld) 4.2 % Normal . [facility] Comment on above: Performed By: #### A MM, PT, CMP, PTT, HS TROP, CBC, CK ####[address] Erythrocyte distribution width (RBC) [Ratio] 13.9 % Normal 11.9-15.3 [facility] Comment on above: Performed By: #### A MM, PT, CMP, PTT, HS TROP, CBC, CK ####[address] Hematocrit (Bld) [Volume fraction] 34.5 % Normal 34.0-46.4 [facility] Comment on above: Performed By: #### A MM, PT, CMP, PTT, HS TROP, CBC, CK ####[address] Hemoglobin (Bld) [Mass/Vol] 11.6 g/dL Low 11.8-15.4 [facility] Comment on above: Performed By: #### A MM, PT, CMP, PTT, HS TROP, CBC, CK ####[address] Lymphocytes (Bld) [#/Vol] 3.0 10*3/uL Normal 1.00-4.8 [facility] Comment on above: Performed By: #### A MM, PT, CMP, PTT, HS TROP, CBC, CK ####[address] Lymphocytes/100 WBC (Bld) 57.0 % Normal . [facility] Comment on above: Performed By: #### A MM, PT, CMP, PTT, HS TROP, CBC, CK ####[address] MCH (RBC) [Entitic mass] 30.1 pg Normal 24.7-34.3 [facility] Comment on above: Performed By: #### A MM, PT, CMP, PTT, HS TROP, CBC, CK ####[address] MCV (RBC) [Entitic vol] 89.4 fL Normal 80-100 [facility] Comment on above: Performed By: #### A MM, PT, CMP, PTT, HS TROP, CBC, CK ####[address] Mean Corpuscular HGB Conc 33.6 g/dL Normal 32.0-35.0 [facility] Comment on above: Performed By: #### A MM, PT, CMP, PTT, HS TROP, CBC, CK ####[address] Monocytes (Bld) [#/Vol] 0.3 10*3/uL Normal 0.0-0.8 [facility] Comment on above: Performed By: #### A MM, PT, CMP, PTT, HS TROP, CBC, CK ####[address] Monocytes/100 WBC (Bld) 17.73 % Normal 0.00-20.00 [facility] Comment on above: Performed By: #### A MM, PT, CMP, PTT, HS TROP, CBC, CK ####[address] Monocytes/100 WBC (Bld) 6.0 % Normal . [facility] Comment on above: Performed By: #### A MM, PT, CMP, PTT, HS TROP, CBC, CK ####[address] Neutrophils (Bld) [#/Vol] 1.7 10*3/uL Low 1.8-7.7 [facility] Comment on above: Performed By: #### A MM, PT, CMP, PTT, HS TROP, CBC, CK ####[address] Neutrophils/100 WBC (Bld) 32.6 % Normal . [facility] Comment on above: Performed By: #### A MM, PT, CMP, PTT, HS TROP, CBC, CK ####[address] NRBC% 0.1 /100{WBC} Normal 0-0.5 [facility] Comment on above: Performed By: #### A MM, PT, CMP, PTT, HS TROP, CBC, CK ####[address] Platelet mean volume (Bld) [Entitic vol] 8.7 fL Normal 6.3-10.7 [facility] Comment on above: Performed By: #### A MM, PT, CMP, PTT, HS TROP, CBC, CK ####[address] Platelets (Bld) [#/Vol] 196 10*3/uL Normal 150-450 [facility] Comment on above: Performed By: #### A MM, PT, CMP, PTT, HS TROP, CBC, CK ####[address] RBC (Bld) [#/Vol] 3.86 10*6/uL Normal 3.60-5.00 [facility] Comment on above: Performed By: #### A MM, PT, CMP, PTT, HS TROP, CBC, CK ####[address] WBC (Bld) [#/Vol] 5.3 10*3/uL Normal 3.8-11.6 [facility] Comment on above: Performed By: #### A MM, PT, CMP, PTT, HS TROP, CBC, CK ####[address] Comprehensive Metabolic Pane jamel 06-15-2023 Albumin [Mass/Vol] 3.9 g/dL Normal 3.5-5.7 [facility] Comment on above: Performed By: #### A MM, PT, CMP, PTT, HS TROP, CBC, CK ####[address] Albumin/Globulin [Mass ratio] 1.4 {ratio} Normal [facility] Comment on above: Performed By: #### A MM, PT, CMP, PTT, HS TROP, CBC, CK ####[address] ALP [Catalytic activity/Vol] 115 U/L High 34-104 [facility] Comment on above: Performed By: #### A MM, PT, CMP, PTT, HS TROP, CBC, CK ####[address] ALT [Catalytic activity/Vol] 42 U/L Normal 7-52 [facility] Comment on above: Performed By: #### A MM, PT, CMP, PTT, HS TROP, CBC, CK ####[address] Anion gap [Moles/Vol] 10.9 mmol/L Normal 6.0-15.0 [facility] Comment on above: Performed By: #### A MM, PT, CMP, PTT, HS TROP, CBC, CK ####[address] AST [Catalytic activity/Vol] 32 U/L Normal 13-39 [facility] Comment on above: Performed By: #### A MM, PT, CMP, PTT, HS TROP, CBC, CK ####[address] Bilirubin [Mass/Vol] 0.4 mg/dL Normal 0.3-1.0 [facility] Comment on above: Performed By: #### A MM, PT, CMP, PTT, HS TROP, CBC, CK ####[address] Calcium [Mass/Vol] 8.3 mg/dL Low 8.6-10.3 [facility] Comment on above: Performed By: #### A MM, PT, CMP, PTT, HS TROP, CBC, CK ####[address] Chloride [Moles/Vol] 109 mmol/L High 98-107 [facility] Comment on above: Performed By: #### A MM, PT, CMP, PTT, HS TROP, CBC, CK ####[address] CO2 [Moles/Vol] 23.8 mmol/L Normal 21.0-31.0 [facility] Comment on above: Performed By: #### A MM, PT, CMP, PTT, HS TROP, CBC, CK ####[address] Creatinine [Mass/Vol] 0.86 mg/dL Normal 0.60-1.20 [facility] Comment on above: Performed By: #### A MM, PT, CMP, PTT, HS TROP, CBC, CK ####[place] [id number] [address] Creatinine Clr Calc Pharmacy 118.81 Normal [facility] Comment on above: Result Comment: PERF ORMED BY: [facility] [address] [place] [address] PATHOLOGIST [employer] SUPERINTENDENT LAURI PATEL M.D. Performed By: #### A MM, PT, CMP, PTT, HS TROP, CBC, CK ####[address] GFR/1.73 sq M.predicted MDRD (S/P/Bld) [Vol rate/Area] mL/min/{1.73_m2} Normal [facility] Comment on above: Performed By: #### A MM, PT, CMP, PTT, HS TROP, CBC, CK ####[place] [id number] [address] Globulin (S) [Mass/Vol] 2.7 g/dL Normal [facility] Comment on above: Performed By: #### A MM, PT, CMP, PTT, HS TROP, CBC, CK ####[address] Glucose [Mass/Vol] 107 mg/dL High 70-100 [facility] Comment on above: Result Comment: [place] Glucose Reference Range is dependent on time and content of last meal. Glucose of more than 200 mg/dL in a nonstressed, ambulatory subject supports the diagnosis of Diabetes Mellitus. ADA recommended reference range Performed By: #### A MM, PT, CMP, PTT, HS TROP, CBC, CK ####[address] Potassium [Moles/Vol] 3.7 mmol/L Normal 3.5-5.1 [facility] Comment on above: Performed By: #### A MM, PT, CMP, PTT, HS TROP, CBC, CK ####[address] Protein [Mass/Vol] 6.6 g/dL Normal 6.4-8.9 [facility] [facility] Comment on above: Performed By: #### A MM, PT, CMP, PTT, HS TROP, CBC, CK ####[place] [id number] [address] Sodium [Moles/Vol] 140 mmol/L Normal 136-145 [facility] Comment on above: Performed By: #### A MM, PT, CMP, PTT, HS TROP, CBC, CK ####[place] [id number] [address] Urea nitrogen [Mass/Vol] 11 mg/dL Normal 7-25 [facility] Comment on above: Performed By: #### A MM, PT, CMP, PTT, HS TROP, CBC, CK ####[place] [id number] [address] Creatine Kinaseon 06-15-2023 CK [Catalytic activity/Vol] 68 U/L Normal 30-223 [facility] Comment on above: Performed By: #### A MM, PT, CMP, PTT, HS TROP, CBC, CK ####[address] Creatine kinase [Enzymatic a ctivity/volume] in Serum or PlasmaOrdered By: Nazario Torres on 06-15-2023 CK [Catalytic activity/Vol] 68 U/L 30-223 [facility] Creatinine [Mass/volume] in Serum or PlasmaOrdered By: Nazario Torres on 06-15-2023 Creatinine [Mass/Vol] 0.86 mg/dL 0.60-1.20 [facility] Dipstick and Microscopicon 0 06-15-2023 Appearance (U) Clear Normal Clear [facility] Comment on above: Order Comment: Name Collection Type:: Straight Catheter Performed By: #### C UUYEHUDA UHCG #### [facility] [address] Bacteria,Urine None Seen Normal None Seen [facility] Comment on above: Order Comment: Name Collection Type:: Straight Catheter Performed By: #### C UUYEHUDA UHCG #### [facility] [address] [place] [address] [place] Bilirubin,Urine Negative Normal Negative [facility] Comment on above: Order Comment: Name Collection Type:: Straight Catheter Performed By: #### C UU, ADDONUAPLUS, UHCG #### [address] Color (U) Yellow Normal Yellow [facility] Comment on above: Order Comment: Name Collection Type:: Straight Catheter Performed By: #### C UU, ADDONUAPLUS, UHCG #### [address] Glucose Ql (U) Normal Normal Normal [facility] Comment on above: Order Comment: Name Collection Type:: Straight Catheter Performed By: #### C UU, ADDONUAPLUS, UHCG #### [place] [address] [place] Hyaline Casts,Urine 0-8 Normal 0-8 [facility] Comment on above: Order Comment: Name Collection Type:: Straight Catheter Performed By: #### C UU, ADDONUAPLUS, UHCG #### [facility] [address] [place] [address] [place] Ketones Ql (U) Negative Normal Negative [facility] Comment on above: Order Comment: Name Collection Type:: Straight Catheter Performed By: #### C UU, ADDONUAPLUS, UHCG #### [place] [address] [place] Leukocyte esterase Test strip Ql (U) 2+ High Negative [facility] Comment on above: Order Comment: Name Collection Type:: Straight Catheter Performed By: #### C UU, ADDONUAPLUS, UHCG #### [facility] [address] [place] [address] [place] Nitrite,Urine Negative Normal Negative [facility] Comment on above: Order Comment: Name Collection Type:: Straight Catheter Performed By: #### C UU, ADDONUAPLUS, UHCG #### [place] [address] [place] Occult Blood,Urine Negative Normal Negative [facility] Comment on above: Order Comment: Name Collection Type:: Straight Catheter Performed By: #### C UU, ADDONUAPLUS, UHCG #### [address] Other Casts,Urine None Seen Normal None Seen [facility] Comment on above: Order Comment: Name Collection Type:: Straight Catheter Performed By: #### C UU, ADDONUAPLUS, UHCG #### [address] pH (U) 7.0 [pH] Normal 5.0-9.0 [facility] Comment on above: Order Comment: Name Collection Type:: Straight Catheter Performed By: #### C UU, ADDONUAPLUS, UHCG #### [place] [address] [place] Protein,Urine Negative Normal Negative [facility] Comment on above: Order Comment: Name Collection Type:: Straight Catheter Performed By: #### C UU, ADDONUAPLUS, UHCG #### [place] [address] [place] RBC,Urine 1-2 Normal 0-4 [facility] Comment on above: Order Comment: Name Collection Type:: Straight Catheter Performed By: #### C UU, ADDONUAPLUS, UHCG #### [place] [address] [place] Renal Epithelial Cells,Urine 1-2 High 0-1 [facility] Comment on above: Order Comment: Name Collection Type:: Straight Catheter Performed By: #### C UU, ADDONUAPLUS, UHCG #### [place] [address] [place] Specificy [place],Urine 1.016 Normal 1.001-1.030 [facility] Comment on above: Order Comment: Name Collection Type:: Straight Catheter Performed By: #### C UU, ADDONUAPLUS, UHCG #### [place] [address] [place] Squamous Epithelial Cell,Urine 5-9 High 0-2 [facility] Comment on above: Order Comment: Name Collection Type:: Straight Catheter Performed By: #### C UU, ADDONUAPLUS, UHCG #### [address] Urobilinogen,Urine Normal Normal Normal [facility] [place] [facility] Comment on above: Order Comment: Name Collection Type:: Straight Catheter Performed By: #### C UU, ADDONUAPLUS, UHCG #### [place] [address] [place] WBC,Urine 5-9 High 0-4 [facility] Comment on above: Order Comment: Name Collection Type:: Straight Catheter Performed By: #### C UU, ADDONUAPLUS, UHCG #### [address] Drug Screen,Urineon 06-15-19 24 Amphetamine Screen,Urine Positive High Negative [facility] Comment on above: Performed By: #### U RDS ####[address] Barbiturate Screen,Urine Negative Normal Negative [facility] Comment on above: Performed By: #### U RDS ####[address] Benzodiazepines Screen,Urine Negative Normal Negative [facility] Comment on above: Performed By: #### U RDS ####[address] Cannabinoid Screen,Urine Positive High Negative [facility] Comment on above: Result Comment: Thes e are unconfirmed results and should not be used for legal purposes. Drug Cut-Off Concentration: AMPH 1000 ng/mL CHUYITA 200 ng/mL DINO 200 ng/mL COCM 300 ng/mL OP 300 ng/mL PCP 25 ng/mL THC 20 ng/mL PERFORMED BY: [place] [address] PATHOLOGIST [employer] SUPERINTENDENT LAURI PATEL M.D. Performed By: #### U RDS ####[address] Cocaine Screen,Urine Positive High Negative [facility] Comment on above: Performed By: #### U RDS ####[facility] [place] [address] [facility] Opiate Screen,Urine Negative Normal Negative [facility] Comment on above: Performed By: #### U RDS ####[facility] [id number] [place] [address] [facility] Phencyclidine Screen,Urine Negative Normal Negative [facility] Comment on above: Performed By: #### U RDS ####[facility] [id number] [place] [address] [facility] ECG 12 lead ECGon 06-15-2023 ECG 12 lead ECG [facility] [place] [address] Electrocardiograph Report Signed Patient: Tyrone Lim MR#: [id number] : 1985 Acct:[id number] Age/Sex: 38 / F ADM Date: 06/15/23 Loc: ER Room: Type: DEP ER Attending Dr: Ordering Provider: Nazario Torres [...] axis deviation Confirmed by Nazario TORRES DO ([id number]) on 06/15/2023 6:38:04 PM Referred By: Electronically Signed By:Nazario TORRES DO Transcribed By: MUS Signed By Nazario Torres DO 0 06/15/23 1838 Normal [facility] ECG 12 lead ECG [facility] Main [place] [id number] Electrocardiograph Report Signed Patient: Tyrone Lim MR#: [id number] : 1985 Acct:[id number] Age/Sex: 38 / F ADM Date: 06/15/23 Loc: ER Room: Type: DEP ER Attending Dr: Ordering Provider: Nazario Torres [...] Sinus tachycardia Confirmed by Nazario TORRES DO ([id number]) on 06/15/2023 6:34:30 PM Referred By: Electronically Signed By:Nazario TORRES DO Transcribed By: MUS Signed By Nazario Torres DO 0 06/15/231833 Normal [facility] Eosinophils Auto (Bld) [#/Vo l]Ordered By: Nazario Torres on 06-15-2023 Eosinophils (Bld) [#/Vol] 0.2 10*3/uL 0.0-0.45 [facility] Eosinophils/100 WBC Auto (Bl d)Ordered By: Nazario Torres on 06-15-2023 Eosinophils/100 WBC (Bld) 4.2 % . [facility] Erythrocyte distribution wid th Auto (RBC) [Ratio]Ordered By: Nazario Torres on 06-15-2023 Erythrocyte distribution width (RBC) [Ratio] 13.9 % 11.9-15.3 [facility] Globulin Calc (S) [Mass/Vol] Ordered By: Nazario Torres on 06-15-2023 Globulin (S) [Mass/Vol] 2.7 g/dL [facility] Glucose [Mass/volume] in Ser um or PlasmaOrdered By: Nazario Torres on 06-15-2023 Glucose [Mass/Vol] 107 mg/dL 70-100 [facility] Comment on above: ADA recommended refe rence rangeRandom Glucose Reference Range is dependent on time and content of last meal. Glucose of more than 200 mg/dL in a nonstressed, ambulatory subject supports the diagnosis of Diabetes Mellitus. HCG ( test) IA.rapi d Ql (U)Ordered By: Nazario Torres on 06-15-2023 HCG ( test) Ql (U) Negative [facility] HCG,Urineon 06-15-2023 Beta HCG ( test) Ql (U) Negative Normal [facility] Comment on above: Order Comment: Name Collection Type:: Straight Catheter Result Comment: PERF ORMED BY: [place] [address] PATHOLOGIST [employer] SUPERINTENDENT LAURI PATEL M.D. Performed By: #### C UU, ADDGIANNAUAPLUS, C #### [address] Hematocrit Auto (Bld) [Volum e fraction]Ordered By: Nazario Torres on 06-15-2023 Hematocrit (Bld) [Volume fraction] 34.5 % 34.0-46.4 [facility] Hemoglobin [Mass/volume] in BloodOrdered By: Nazario Torres on 06-15-2023 Hemoglobin (Bld) [Mass/Vol] 11.6 g/dL 11.8-15.4 [facility] INR in Platelet poor plasma by Coagulation assayOrdered By: Naazrio Torres on 06-15-2023 INR Coag (PPP) [Relative time] 1.1 {INR} [facility] Comment on above: INR Therapeutic Rang e [...] on 06-15-2023 Ketones (U) [Mass/Vol] Negative Negative [facility] Laboratory - UrinalysisOrder ed By: Nazario Torres on 06-15-2023 Hyaline casts LM Ql (Urine sed) 0-8 [LPF] 0-8 [facility] Leukocytes [#/volume] correc [place] for nucleated erythrocytes in Blood by Automated counOrdered By: Nazario Torres on 06-15-2023 WBC corrected for nucl RBC Auto (Bld) [#/Vol] 5.3 10*3/uL 3.8-11.6 [facility] Lymphocytes Auto (Bld) [#/Vo l]Ordered By: Nazario Torres on 06-15-2023 Lymphocytes (Bld) [#/Vol] 3.0 10*3/uL 1.00-4.8 [facility] Lymphocytes/100 WBC Auto (Bl d)Ordered By: Nazario Torres on 06-15-2023 Lymphocytes/100 WBC (Bld) 57.0 % . [facility] MCH Auto (RBC) [Entitic mass ]Ordered By: Nazario Torres on 06-15-2023 MCH (RBC) [Entitic mass] 30.1 pg 24.7-34.3 [facility] MCHC Auto (RBC) [Mass/Vol]Or dered By: Nazario Torres on 06-15-2023 MCHC (RBC) [Mass/Vol] 33.6 g/dL 32.0-35.0 [facility] MCV Auto (RBC) [Entitic vol] Ordered By: Nazario Torres on 06-15-2023 MCV (RBC) [Entitic vol] 89.4 fL 80-100 [facility] Monocyte distribution width [Entitic volume] in Blood by AutomatedOrdered By: Nazario Torres on 06-15-2023 Monocyte distribution width Auto (Bld) [Entitic vol] 17.73 % 0.00-20.00 [facility] Monocytes Auto (Bld) [#/Vol] Ordered By: Nazario Torres on 06-15-2023 Monocytes (Bld) [#/Vol] 0.3 10*3/uL 0.0-0.8 [facility] Monocytes/100 WBC Auto (Bld) Ordered By: Nazario Torres on 06-15-2023 Monocytes/100 WBC (Bld) 6.0 % . [facility] Neutrophils Auto (Bld) [#/Vo l]Ordered By: Nazario Torres on 06-15-2023 Neutrophils (Bld) [#/Vol] 1.7 10*3/uL 1.8-7.7 [facility] Neutrophils/100 WBC Auto (Bl d)Ordered By: Nazario Torres on 06-15-2023 Neutrophils/100 WBC (Bld) 32.6 % . [facility] Nitrite Test strip Ql (U)Ord ered By: Nazario Torres on 06-15-2023 Nitrite Ql (U) Negative Negative [facility] No Panel InformationOrdered By: Nazario Torres on 06-15-2023 Blood Gas Critical Value See comment [facility] Comment on above: Critical Value leon hewitt on: 06/15/2023 at 13:02 Blood Gas Sample Site Venous [facility] FiO2 21 % [facility] Venous Blood Base Excess -7.8 mmol/L -3.0-3.0 [facility] Venous Blood Oxygen Content 5.8 mmol/L 6.6-9.7 [facility] Venous Blood Oxygen Saturation 84.8 % 73.0-76.0 [facility] Venous Blood Partial Pressure CO2 36.9 mm[Hg] 38.0-50.0 [facility] Venous Blood Partial Pressure O2 53.5 mm[Hg] 35.0-45.0 [facility] Venous Blood pH 7.30 7.32-7.43 [facility] Estimated GFR (CKD-EPI) > 60.0 mL/Min [facility] Creatinine Clearance (Chem 118.81 [facility] Nucleated erythrocytes [Pres ence] in Blood by Automated countOrdered By: Nazario Torres on 06-15-2023 Nucleated RBC Auto Ql (Bld) 0.1 /100{WBC} 0-0.5 [facility] Opiates [Presence] in Urine by Screen methodOrdered By: Nazario Torres on 06-15-2023 Opiates Screen Ql (U) Negative Negative [facility] Partial Thromboplastin Timeo n 06-15-2023 aPTT Coag (Bld) [Time] 30.4 s Normal 25.1-36.5 [facility] Comment on above: Result Comment: A he matocrit value greater than 55% may lead to inaccurate results in coagulation testing. Patients having hematocrit values >55% require a special collection tube for coagulation studies. Please contact the laboratory at [phone] for redraw instructions. PERFORMED BY: [facility] [address] [place] [address] PATHOLOGIST [employer] SUPERINTENDENT LAURI PATEL M.D. Performed By: #### A MM, PT, CMP, PTT, HS TROP, CBC, CK ####[facility] [id number] [place] [id number] [facility] Phencyclidine Screen Ql (U)O rdered By: Nazario Torres on 06-15-2023 Phencyclidine Ql (U) Negative Negative [facility] Platelet mean volume Auto (B ld) [Entitic vol]Ordered By: Nazario Torres on 06-15-2023 Platelet mean volume (Bld) [Entitic vol] 8.7 fL 6.3-10.7 [facility] Platelets Auto (Bld) [#/Vol] Ordered By: Nazario Torres on 06-15-2023 Platelets (Bld) [#/Vol] 196 10*3/uL 150-450 [facility] Potassium [Moles/volume] in Serum or PlasmaOrdered By: Nazario Torres on 06-15-2023 Potassium [Moles/Vol] 3.7 mmol/L 3.5-5.1 [facility] Protein Auto test strip (U) [Mass/Vol]Ordered By: Nazario Torres on 06-15-2023 Protein (U) [Mass/Vol] Negative Negative [facility] Protein [Mass/volume] in Ser um or PlasmaOrdered By: Nazario Torres on 06-15-2023 Protein [Mass/Vol] 6.6 g/dL 6.4-8.9 [facility] Prothrombin Time INRon 06-14 INR Coag (PPP) [Relative time] 1.1 {INR} Normal [facility] Comment on above: Result [...] PT, CMP, PTT, HS TROP, CBC, CK ####[facility] [id number] [place] [id number] [facility] PT Coag (PPP) [Time] 13.2 s High 9.0-12.9 [facility] Comment on above: Result Comment: A he matocrit value greater than 55% may lead to inaccurate results in coagulation testing. Patients having hematocrit values >55% require a special collection tube for coagulation studies. Please contact the laboratory at [phone] for redraw instructions. Performed By: #### A MM, PT, CMP, PTT, HS TROP, CBC, CK ####[facility] [id number] [place] [id number] [facility] Prothrombin time (PT)Ordered By: Nazario Torres on 06-15-2023 PT Coag (PPP) [Time] 13.2 s 9.0-12.9 [facility] Comment on above: A hematocrit value g reater than 55% may lead to inaccurate results in coagulation testing. Patients having hematocrit values >55% require a special collection tube for coagulation studies. Please contact the laboratory at [phone] for redraw instructions. RBC Auto (Bld) [#/Vol]Ordere d By: Nazario Torres on 06-15-2023 RBC (Bld) [#/Vol] 3.86 10*6/uL 3.60-5.00 [facility] Serum or plasma albumin/glob ulin mass ratioOrdered By: Nazario Torres on 06-15-2023 Albumin/Globulin [Mass ratio] 1.4 {ratio} [facility] Serum or plasma anion gap de terminationOrdered By: Nazario Torres on 06-15-2023 Anion gap [Moles/Vol] 10.9 mmol/L 6.0-15.0 [facility] Sodium [Moles/volume] in Ser um or PlasmaOrdered By: Nazario Torres on 06-15-2023 Sodium [Moles/Vol] 140 mmol/L 136-145 [facility] Specific gravity Auto test s trip (U) [Rel density]Ordered By: Nazario Torres on 06-15-2023 Specific gravity (U) [Rel density] 1.016 1.001-1.030 [facility] Squamous epithelial cells de tection in urine sediment by light microscopyOrdered By: Nazario Torres on 06-15-2023 Epithelial cells.squamous LM Ql (Urine sed) 5-9 [HPF] 0-2 [facility] Troponin I High Sensitivityo n 06-15-2023 Troponin I High Sensitivity < 2.3 Normal 0.0-15.0 [facility] Comment on above: Result Comment: PERF ORMED BY: [place] [address] PATHOLOGIST [employer] SUPERINTENDENT LAURI PATEL M.D. Performed By: #### A MM, PT, CMP, PTT, HS TROP, CBC, CK ####[facility] [id number] Troponin I.cardiac [Mass/vol ume] in Serum or Plasma by Detection limit <= 0.01 ng/Ordered By: Nazario Torres on 06-15-2023 Troponin I.cardiac DL <= 0.01 ng/mL [Mass/Vol] < 2.3 pg/mL 0.0-15.0 [facility] Urea nitrogen [Mass/volume] in Serum or PlasmaOrdered By: Nazario Torres on 06-15-2023 Urea nitrogen [Mass/Vol] 11 mg/dL 7-25 [facility] Urine Cultureon 06-15-2023 Bacteria identified Cx Nom (U) No Growth 2 Days PERFORMED BY: [place] [address] PATHOLOGIST [employer] SUPERINTENDENT LAURI PATEL M.D. Normal [facility] Comment on above: Performed By: #### C UU, ADDONUAPLUS, UHCG #### [facility] [address] [place], [place] [address] [facility] Urine bacteria detection by automated methodOrdered By: Nazario Torres on 06-15-2023 Bacteria Auto Ql (U) None seen None Seen [facility] Urine clarity by refractomet ry automatedOrdered By: Nazario Torres on 06-15-2023 Clarity Refractometry automated (U) Clear Clear [facility] Urine glucose measurement by automated test strip (mass/volume)Ordered By: Nazario Torres on 06-15-2023 Glucose Auto test strip (U) [Mass/Vol] Normal mg/dL Normal [facility] Urine hemoglobin detection b y automated test stripOrdered By: Nazario Torres on 06-15-2023 Hemoglobin Auto test strip Ql (U) Negative Negative [facility] Urine leukocyte esterase det ection by automated test stripOrdered By: Nazario Torres on 06-15-2023 Leukocyte esterase Auto test strip Ql (U) 2+ Negative [facility] Urine sediment renal epithel ial cell count by microscopy (number/high power field)Ordered By: Nazario Torres on 06-15-2023 Epithelial cells.renal LM.HPF (Urine sed) [#/Area] 1-2 [HPF] 0-1 [facility] Urobilinogen Auto test strip (U) [Mass/Vol]Ordered By: Nazario Torres on 06-15-2023 Urobilinogen (U) [Mass/Vol] Normal mg/dL Normal [facility] Venous Blood Gason Respiratory Critical Normal [facility] Comment on above: Result Comment: Crit ical Value called on: 06/15/2023 at 13:02 PERFORMED BY: [facility] [address] [place] [address] PATHOLOGIST [employer] SUPERINTENDENT LAURI PATEL M.D. Performed By: #### V BG #### Point of Care testing , VBG Base Excess -7.8 mmol/L Low -3.0-3.0 [facility] Comment on above: Performed By: #### V BG #### Point of Care testing , VBG Draw Site Venous Normal [facility] Comment on above: Performed By: #### V BG #### Point of Care testing , VBG Frac Inspired O2 21 % Normal [facility] Comment on above: Performed By: #### V BG #### Point of Care testing , VBG O2 Content 5.8 mmol/L Low 6.6-9.7 [facility] Comment on above: Performed By: #### V BG #### Point of Care testing , VBG Oxygen Saturation 84.8 % High 73.0-76.0 [facility] Comment on above: Performed By: #### V BG #### Point of Care testing , VBG PCO2 36.9 mm[Hg] Low 38.0-50.0 [facility] Comment on above: Performed By: #### V BG #### Point of Care testing , VBG PH Venous PH 7.30 Low 7.32-7.43 [facility] Comment on above: Performed By: #### V BG #### Point of Care testing , VBG PO2 53.5 mm[Hg] High 35.0-45.0 [facility] Comment on above: Performed By: #### V BG #### Point of Care testing , Venous Blood GasOrdered By: Nazario Torres on 06-15-2023 CO2 [Moles/Vol] 19.0 mmol/L Low 24.0-29.0 [facility] Comment on above: Performed By: #### V BG #### Point of Care testing , HCO3 (Bld) [Moles/Vol] 17.8 mmol/L Low 23.0-29.0 [facility] Comment on above: Performed By: #### V BG #### Point of Care testing , WBC Auto (Bld) [#/Vol]Ordere d By: Nazario Torres on 06-15-2023 WBC (Bld) [#/Vol] 5.3 10*3/uL 3.8-11.6 [facility] XR chest 2V*on 06-15-2023 XR chest 2V* [facility] [place] [address] XRay Report Signed Patient: Tyrone Lim MR#: [id number] : 1985 Acct:[id number] Age/Sex: 38 / F ADM Date: 06/15/23 [...] Jason Stone M.D.06/15/2023 12:34 PM Dictation Location: [place] [address] Transcribed By: [facility] 06/15/23 1234 Dictated By: Jason Stone II, MD 06/15/23 1233 Signed By: 06/15/23 1234 Normal [facility] pH Auto test strip (U)Ordere d By: Nazario Torres on 06-15-2023 pH (U) 7.0 [pH] 5.0-9.0 [facility] ACETAMINOPHENon 06-01-2023 Acetaminophen [Mass/Vol] 6.5 ug/mL Low 10.0-30.0 [facility] Comment on above: Result Comment: Refe rence ranges are for therapeutic limits. Performed By: #### C BCA, CMP, 75493-0, 3016-3, 96639-5, 2132-9 #### [facility] ([id number]) [address] [place] [address], [address] [place] [address] CBC AND AUTO DIFFon 06-01-19 24 ABSOLUTE BASOPHIL 0.0 X10E9/L Normal 0.0-0.2 [facility] Comment on above: Performed By: #### C BCA, 15684-0, 49134-0, 5643-2, CMP, 81917- 9, 3298-7, 2157-6, 4024-6, 42533-1, 3040-3 #### [facility] ([id number]) [address] [place] [address] ABSOLUTE NEUTROPHIL 13.2 X10E9/L High 1.5-6.6 [facility] Comment on above: Performed By: #### C BCA, 87678-0, 08099-1, 5643-2, CMP, 92618- 9, 3298-7, 2157-6, 4024-6, 95884-2, 3040-3 #### [facility] ([id number]) [address] [place] [address] Basophils/100 WBC (Bld) 0.1 % Normal [facility] Comment on above: Performed By: #### C BCA, 80512-3, 38257-0, 5643-2, CMP, 46827- 9, 3298-7, 2157-6, 4024-6, 76723-9, 3040-3 #### [facility] ([id number]) [address] [place] [address] Eosinophils (Bld) [#/Vol] 0.0 10*3/uL Normal 0.0-0.4 [facility] Comment on above: Performed By: #### C BCA, 36568-1, 84026-7, 5643-2, CMP, 51950- 9, 3298-7, 2157-6, 4024-6, 09862-2, 3040-3 #### [facility] ([id number]) [address] [place] [address] Eosinophils/100 WBC (Bld) 0.3 % Normal [facility] Comment on above: Performed By: #### C BCA, 39006-1, 51473-8, 5643-2, CMP, 59345- 9, 3298-7, 2157-6, 4024-6, 01978-9, 3040-3 #### [facility] ([id number]) [address] [place] [address] Erythrocyte distribution width (RBC) [Ratio] 14.4 % Normal 11.5-15.0 [facility] [facility] Comment on above: Performed By: #### C BCA, 03291-4, 79171-8, 5643-2, CMP, 62872- 9, 3298-7, 2157-6, 4024-6, 59942-4, 3040-3 #### [facility] ([id number]) [address] [place] [address] 36393 Hematocrit (Bld) [Volume fraction] 40.1 % Normal 35-47 [facility] Comment on above: Performed By: #### C BCA, 84247-4, 43843-9, 5643-2, CMP, 40284- 9, 3298-7, 2157-6, 4024-6, 29350-4, 3040-3 #### [facility] ([id number]) [address] [place] [address] 52792 Hemoglobin (Bld) [Mass/Vol] 13.4 g/dL Normal 11.7-15.5 [facility] Comment on above: Performed By: #### C BCA, 37719-7, 91254-7, 5643-2, CMP, 65665- 9, 3298-7, 2157-6, 4024-6, 26812-6, 3040-3 #### [facility] ([id number]) [address] [place] [address] 40488 Lymphocytes (Bld) [#/Vol] 1.0 10*3/uL Normal 1.0-3.5 [facility] Comment on above: Performed By: #### C BCA, 77374-2, 51635-0, 5643-2, CMP, 40726- 9, 3298-7, 2157-6, 4024-6, 86962-4, 3040-3 #### [facility] ([id number]) [address] [place] [address] 35162 Lymphocytes/100 WBC (Bld) 6.8 % Normal [facility] Comment on above: Performed By: #### C BCA, 77504-1, 53869-9, 5643-2, CMP, 27397- 9, 3298-7, 2157-6, 4024-6, 75747-6, 3040-3 #### [facility] ([id number]) [address] [place] [address] [place] [address] MCH (RBC) [Entitic mass] 30.5 pg Normal 27-34 [facility] Comment on above: Performed By: #### C BCA, 76299-1, 58689-2, 5643-2, CMP, 59950- 9, 3298-7, 2157-6, 4024-6, 99446-0, 3040-3 #### [facility] ([id number]) [address] [place] [address]4442 MCHC (RBC) [Mass/Vol] 33.5 g/dL Normal 32-36 [facility] Comment on above: Performed By: #### C BCA, 53075-0, 09108-8, 5643-2, CMP, 30832- 9, 3298-7, 2157-6, 4024-6, 41291-2, 3040-3 #### [facility] ([id number]) [address] [place] [address] 42932 MCV (RBC) [Entitic vol] 91 fL Normal 80-100 [facility] Comment on above: Performed By: #### C BCA, 41565-6, 90004-2, 5643-2, CMP, 84749- 9, 3298-7, 2157-6, 4024-6, 00146-1, 3040-3 #### [facility] ([id number]) [address] [place] [address] 22297 Monocytes (Bld) [#/Vol] 0.5 10*3/uL Normal 0-0.9 [facility] Comment on above: Performed By: #### C BCA, 80289-6, 77447-7, 5643-2, CMP, 74347- 9, 3298-7, 2157-6, 4024-6, 10804-2, 3040-3 #### [facility] ([id number]) [address] [place] [address] 07795 Monocytes/100 WBC (Bld) 3.7 % Normal [facility] Comment on above: Performed By: #### C BCA, 09918-3, 08054-0, 5643-2, CMP, 77820- 9, 3298-7, 2157-6, 4024-6, 73145-1, 3040-3 #### [facility] ([id number]) [address] [place] [address] 46749 Neutrophils/100 WBC (Bld) 89.1 % Normal [facility] Comment on above: Performed By: #### C BCA, 03575-0, 29431-0, 5643-2, CMP, 94368- 9, 3298-7, 2157-6, 4024-6, 73104-1, 3040-3 #### [facility] ([id number]) [address] [place] [address] 47481 Platelet mean volume (Bld) [Entitic vol] 8.3 fL Normal 7-12 [facility] Comment on above: Performed By: #### C BCA, 20487-0, 16996-1, 5643-2, CMP, 93684- 9, 3298-7, 2157-6, 4024-6, 72962-6, 3040-3 #### [facility] ([id number]) [address] [place] [address] 02980 Platelets (Bld) [#/Vol] 249 10*3/uL Normal 150-450 [facility] Comment on above: Performed By: #### C BCA, 76110-6, 10114-7, 5643-2, CMP, 00409- 9, 3298-7, 2157-6, 4024-6, 15273-6, 3040-3 #### [facility] ([id number]) [address] [place] [address] 06444 RBC COUNT 4.41 X10E12/L Normal 3.80-5.20 [facility] Comment on above: Performed By: #### C BCA, 34416-6, 12156-5, 5643-2, CMP, 78990- 9, 3298-7, 2157-6, 4024-6, 66925-8, 3040-3 #### [facility] ([id number]) [address] [facility], [place] [address] WBC (Bld) [#/Vol] 14.8 10*3/uL High 4.0-11.0 [facility] Comment on above: Performed By: #### C BCA, 61642-8, 64412-1, 5643-2, CMP, 19472- 9, 3298-7, 2157-6, 4024-6, 21230-0, 3040-3 #### [facility] ([id number]) [address] [place] [address] CK [Catalytic activity/Vol]o n 06-01-2023 CPK 49 U/L Normal 24-170 [facility] Comment on above: Performed By: #### C BCA, CMP, 17178-6, 3016-3, 53798-3, 9 #### [facility] ([id number]) [address] [place] [address] COMPREHENSIVE METABOLIC PANE Jamel 06-01-2023 Albumin [Mass/Vol] 4.3 g/dL Normal 3.2-5.3 [facility] Comment on above: Performed By: #### C BCA, CMP, 60530-9, 3016-3, 44986-4, 9 #### [facility] ([id number]) [address], [address] [place] [address] ALP [Catalytic activity/Vol] 115 U/L Normal 39-130 [facility] Comment on above: Performed By: #### C BCA, CMP, 20981-2, 3016-3, 45932-3, 9 #### [facility] ([id number]) [address], [address] [place] [address] ALT [Catalytic activity/Vol] 37 U/L High 0-31 [facility] Comment on above: Performed By: #### C BCA, CMP, 26200-8, 3016-3, 18063-6, 2131-11 #### [facility] ([id number]) [address], [address] [place] [address] Anion gap [Moles/Vol] 10 mmol/L Normal 5-15 [facility] Comment on above: Performed By: #### C BCA, CMP, 89262-0, 3016-3, 67460-9, 2131-11 #### [facility] ([id number]) [address], [address] [place] [address] AST [Catalytic activity/Vol] 29 U/L Normal 0-41 [facility] Comment on above: Performed By: #### C BCA, CMP, 14834-1, 3016-3, 59140-3, 2131-11 #### [facility] ([id number]) [address], [address] [place] [address] Bilirubin [Mass/Vol] 0.4 mg/dL Normal 0.3-1.2 [facility] Comment on above: Performed By: #### C BCA, CMP, 46667-0, 3016-3, 52140-4, 2131-11 #### [facility] ([id number]) [address], [address] [place] [address] Calcium [Mass/Vol] 8.8 mg/dL Normal 8.5-10.5 [facility] Comment on above: Performed By: #### C BCA, CMP, 32095-7, 3016-3, 55732-2, 2131-11 #### [facility] ([id number]) [address], [address] [place] [address] Chloride [Moles/Vol] 105 mmol/L Normal 98-109 [facility] Comment on above: Performed By: #### C BCA, CMP, 53611-1, 3016-3, 82388-3, 2131-11 #### [facility] ([id number]) [address], [address] [place] [address] CO2 [Moles/Vol] 22 mmol/L Normal 22-32 [facility] Comment on above: Performed By: #### C GALILEO ROBLES, 96005-3, 3016-3, 49379-1, 2131-11 #### [facility] ([id number]) [address] [facility] [address] [place] [address] Creatinine [Mass/Vol] 1.23 mg/dL High 0.40-1.00 [facility] Comment on above: Result Comment: METH OD TRACEABLE TO IDMS STANDARD Performed By: #### C TRAVIS, GALILEO, 43616-5, 3016-3, 95679-1, 2131-11 #### [facility] ([id number]) [address], [facility] [address] [place] [address] GFR/1.73 sq M.predicted among non-blacks MDRD (S/P/Bld) [Vol rate/Area] 58 mL/min/{1.73_m2} Low >59 [facility] Comment on above: Result Comment: Reported eGFR is based on the CKD-EPI 2020 equation that does not use a race coefficient. Performed By: #### C TRAVIS, CMP, 98954-4, 3016-3, 75445-7, 2131-11 #### [facility] ([id number]) [address], [facility] [address] [place] [address] Glucose [Mass/Vol] 274 mg/dL High 65-99 [facility] Comment on above: Performed By: #### C BCA, CMP, 89658-6, 3016-3, 01854-7, 2131-11 #### [facility] ([id number]) [address] [address] [place] [address] Potassium [Moles/Vol] 4.8 mmol/L Normal 3.5-5.0 [facility] Comment on above: Performed By: #### C BCA, CMP, 81952-2, 3016-3, 96490-2, 2131-11 #### [facility] ([id number]) [address], [address] [place] [address] Protein [Mass/Vol] 8.3 g/dL High 6.0-8.0 [facility] Comment on above: Performed By: #### C BCA, CMP, 45742-0, 3016-3, 42994-0, 9 #### [facility] ([id number]) [address] [place] [address] Sodium [Moles/Vol] 137 mmol/L Normal 134-146 [facility] Comment on above: Performed By: #### C BCA, CMP, 49443-1, 3016-3, 07807-2, 9 #### [facility] ([id number]) [address], [address] [place] [address] Urea nitrogen [Mass/Vol] 14 mg/dL Normal 5-23 [facility] Comment on above: Performed By: #### C BCA, CMP, 21769-0, 3016-3, 68005-1, 9 #### [facility] ([id number]) [address], [address] [place] [address] CT BRAIN WO CONTon CT BRAIN WO [...] Hathaway MD on 06/01/2023 6:15 AM Normal [facility] ETHANOLon 06-01-2023 Ethanol [Mass/Vol] mg/dL Normal 0.00-0.08 [facility] Comment on above: Result Comment: This report is intended for use in clinical monitoring or management of patients. Performed By: #### C GALILEO ROBLES, 71262-4, 3016-3, 66071-7, 2131-11 #### [facility] ([id number]) [address], [address] [place] [address] Glucose Glucometer (BldC) [M ass/Vol]on 06-01-2023 Glucose [Mass/Vol] 258 mg/dL High 65-99 [facility] HCG ( test) IAlaura hewitt Ql (S)on 06-01-2023 SERUM Negative Normal NEG [facility] Comment on above: Performed By: #### C GALILEO ROBLES, 04825-9, 3016-3, 95819-1, 2131-11 #### [facility] ([id number]) [address], [address] [place] [address] LIPASEon 06-01-2023 Lipase [Catalytic activity/Vol] 36 U/L Normal 17-40 [facility] Comment on above: Performed By: #### C GALILEO ROBLES, 13410-1, 3016-3, 50150-1, 2131-11 #### [facility] ([id number]) [address], [address] [place] [address] Lactate (P rm) [Moles/Vol]o n 06-01-2023 Lactate [Moles/Vol] 1.4 mmol/L Normal 0.4-2.0 [facility] Comment on above: Performed By: #### C BCA, CMP, 66627-3, 3016-3, 19707-7, 2131-11 #### [facility] ([id number]) [address], [address] [place] [address] LACTATE W/REFLEX 3.9 mmol/L High 0.4-2.0 [facility] Comment on above: Performed By: #### C BCA, 32629-1, 09940-5, 5643-2, CMP, 92511- 9, 3298-7, 2157-6, 4024-6, 31876-5, 3040-3 #### [facility] ([id number]) [address] [place] [address], [place] [address] MAGNESIUMon 06-01-2023 Magnesium [Mass/Vol] 2.0 mg/dL Normal 1.8-2.6 [facility] Comment on above: Performed By: #### C BCA, CMP, 74312-2, 3016-3, 52207-6, 2131-11 #### [facility] ([id number]) [address], [address] [place] [address] Salicylates [Mass/Vol]on SALICYLATE <4.0 Normal 2.0-25.0 [facility] Comment on above: Result Comment: Refe rence ranges are for therapeutic limits. Performed By: #### C BCA, CMP, 19803-3, 3016-3, 40600-7, 9 #### [facility] ([id number]) [address], [address] [place] [address] TROPONIN Ion 06-01-2023 Troponin I.cardiac [Mass/Vol] 0.01 ng/mL Normal 0.00-0.04 [facility] Comment on above: Performed By: #### C BCA, CMP, 00748-2, 3016-3, 38743-0, 2132-9 #### [facility] ([id number]) [address] [place] [address] XR CHEST 1 VWon 06-01-2023 XR CHEST 1 VW XR CHEST 1 VW Clinical history: Aspiration pneumonia Views: 1 Comparison: 08/21/2021 Findings/Impression: 1. No acute infiltrate. No volume loss nor consolidation. There is no pleural effusion, pneumothorax, nor volume loss. Heart and mediastinal structures are unremarkable. Pulmonary vasculature stable. 2. No significant change Finalized by Srikanth Hathaway MD on 06/01/2023 6:06 AM Normal [facility] PAP IG, APT HPV RFX 16/18,45 on 04-14-2023 HPV APTIMA Negative Negative [facility] Comment on above: This nucleic acid am plification test detects fourteen high- risk HPV types (16,18,31,33,35,39,45,51,52,56,58,59,66,68) without differentiation. Performed at: - [facility] [id number] System Administration Manager: Korin Hernandez MD, Phone: [phone] Performed at: = - [facility] [id number] System Administration Manager: Korin Hernandez MD, Phone: [phone] PAP IG (IMAGE GUIDED) Note . [facility] Comment on above: TESTS RESULT FLAG UN ITS REF RANGE LAB Clinician Provided Cytology Information Source.............Cervix;Endocervix No. of containers..01 ThinPrep Vial DIAGNOSIS: 01 NEGATIVE FOR INTRAEPITHELIAL LESION OR MALIGNANCY. Specimen adequacy: 01 Satisfactory for evaluation. Endocervical and/or squamous metaplastic cells (endocervical component) are present. Performed by: 01 Gina Fernandez Nuclear Fuel Processing Technician ([facility]) . 01 Note: Note 01 The [...] High,A-Abnormal,AA-Critical Abnormal Performed at: 01 [facility] [address] [place] [address] Korin Hernandez MD, BRUSH-SPATULA CERVIX ENDOCERVIX [facility] CBC AND AUTO DIFFon 04-11-19 24 ABSOLUTE BASOPHIL 0.0 X10E9/L Normal 0.0-0.2 [facility] Comment on above: Performed By: #### C GALILEO ROBLES, 01661-7, 3016-3, 53161-3, 2131-11 #### [facility] ([id number]) [address], [address] [place] [address] ABSOLUTE NEUTROPHIL 3.8 X10E9/L Normal 1.5-6.6 [facility] Comment on above: Performed By: #### C TRAVIS CMP, 05110-5, 3016-3, 11139-3, 2131-11 #### [facility] ([id number]) [address], [address] [place] [address] Basophils/100 WBC (Bld) 0.3 % Normal [facility] Comment on above: Performed By: #### C BCA, CMP, 67129-1, 3016-3, 16333-2, 2131-11 #### [facility] ([id number]) [address] [facility] [address] [place] [address] Eosinophils (Bld) [#/Vol] 0.2 10*3/uL Normal 0.0-0.4 [facility] Comment on above: Performed By: #### C BCA, CMP, 66600-6, 3016-3, 89251-5, 2131-11 #### [facility] ([id number]) [address] [address] [place] [address] Eosinophils/100 WBC (Bld) 2.9 % Normal [facility] Comment on above: Performed By: #### C BCA, CMP, 61898-7, 3016-3, 27903-1, 2131-11 #### [facility] ([id number]) [address] [address] [place] [address] Erythrocyte distribution width (RBC) [Ratio] 14.1 % Normal 11.5-15.0 [facility] Comment on above: Performed By: #### C BCA, CMP, 87650-3, 3016-3, 05448-6, 2131-11 #### [facility] ([id number]) [address] [address] [place] [address] Hematocrit (Bld) [Volume fraction] 38.9 % Normal 35-47 [facility] Comment on above: Performed By: #### C BCA, CMP, 49235-7, 3016-3, 44199-1, 2131-11 #### [facility] ([id number]) [address] [address] [place] [address] Hemoglobin (Bld) [Mass/Vol] 13.3 g/dL Normal 11.7-15.5 [facility] Comment on above: Performed By: #### C BCA, CMP, 12700-5, 3016-3, 11303-7, 2131-11 #### [facility] ([id number]) [address], [address] [place] [address] Lymphocytes (Bld) [#/Vol] 2.7 10*3/uL Normal 1.0-3.5 [facility] Comment on above: Performed By: #### C BCA, CMP, 28875-2, 3016-3, 65877-4, 2131-11 #### [facility] ([id number]) [address], [address] [place] [address] Lymphocytes/100 WBC (Bld) 38.4 % Normal [facility] Comment on above: Performed By: #### C BCA, CMP, 69301-7, 3016-3, 37682-7, 2131-11 #### [facility] ([id number]) [address], [address] [place] [address] MCH (RBC) [Entitic mass] 30.8 pg Normal 27-34 [facility] Comment on above: Performed By: #### C BCA, CMP, 18873-3, 3016-3, 41707-7, 2131-11 #### [facility] ([id number]) [address], [address] [place] [address] MCHC (RBC) [Mass/Vol] 34.2 g/dL Normal 32-36 [facility] Comment on above: Performed By: #### C BCA, CMP, 22369-3, 3016-3, 10972-3, 2131-11 #### [facility] ([id number]) [address], [address] [place] [address] MCV (RBC) [Entitic vol] 90 fL Normal 80-100 [facility] Comment on above: Performed By: #### C BCA, CMP, 49714-4, 3016-3, 43762-9, 2131-11 #### [facility] ([id number]) [address], [address] [place] [address] Monocytes (Bld) [#/Vol] 0.3 10*3/uL Normal 0-0.9 [facility] Comment on above: Performed By: #### C BCA, CMP, 12059-7, 3016-3, 85648-3, 2131-11 #### [facility] ([id number]) [address], [address] [place] [address] Monocytes/100 WBC (Bld) 4.9 % Normal [facility] Comment on above: Performed By: #### C BCA, CMP, 20790-4, 3016-3, 20996-4, 2131-11 #### [facility] ([id number]) [address], [address] [place] [address] Neutrophils/100 WBC (Bld) 53.5 % Normal [facility] Comment on above: Performed By: #### C BCA, CMP, 64564-5, 3016-3, 56522-3, 2131-11 #### [facility] ([id number]) [address], [address] [place] [address] Platelet mean volume (Bld) [Entitic vol] 8.4 fL Normal 7-12 [facility] Comment on above: Performed By: #### C BCA, CMP, 84988-6, 3016-3, 53908-2, 2131-11 #### [facility] ([id number]) [address], [address] [place] [address] Platelets (Bld) [#/Vol] 258 10*3/uL Normal 150-450 [facility] Comment on above: Performed By: #### C BCA, CMP, 80114-2, 3016-3, 41656-7, 2131-11 #### [facility] ([id number]) [address], [address] [place] [address] RBC COUNT 4.32 X10E12/L Normal 3.80-5.20 [facility] Comment on above: Performed By: #### C BCA, CMP, 82592-7, 3016-3, 16506-0, 2131-11 #### [facility] ([id number]) [address], [address] [place] [address] WBC (Bld) [#/Vol] 7.1 10*3/uL Normal 4.0-11.0 [facility] Comment on above: Performed By: #### C TRAVIS, CMP, 83519-8, 3016-3, 51555-8, 2131-11 #### [facility] ([id number]) [address], [address] [place] [address] CBC W Auto Differential pane l (Bld)on 04-11-2023 ABSOLUTE BASOPHIL 0.0 [facility] Comment on above: PERFORMED AT [facility] [address],[place] [address] Basophils/100 WBC (Bld) 0.3 % [facility] Eosinophils (Bld) [#/Vol] 0.2 10*3/uL [facility] Eosinophils/100 WBC (Bld) 2.9 % [facility] Erythrocyte distribution width (RBC) [Ratio] 14.1 % 11.5 - 15.0 % [facility] Hematocrit (Bld) [Volume fraction] 38.9 % 35 - 47 % [facility] Hemoglobin (Bld) [Mass/Vol] 13.3 g/dL 11.7 - 15.5 g/dL [facility] Lymphocytes (Bld) [#/Vol] 2.7 10*3/uL [facility] Lymphocytes/100 WBC (Bld) 38.4 % [facility] MCH (RBC) [Entitic mass] 30.8 pg 27 - 34 pg [facility] MCHC (RBC) [Mass/Vol] 34.2 g/dL 32 - 36 g/dL [facility] MCV (RBC) [Entitic vol] 90 fL 80 - 100 fL [facility] Monocytes (Bld) [#/Vol] 0.3 10*3/uL [facility] Monocytes/100 WBC (Bld) 4.9 % [facility] Neutrophils (Bld) [#/Vol] 3.8 10*3/uL [facility] Neutrophils/100 WBC (Bld) 53.5 % [facility] Platelet mean volume (Bld) [Entitic vol] 8.4 fL 7 - 12 fL [facility] Platelets (Bld) [#/Vol] 258 10*3/uL [facility] RBC (Bld) [#/Vol] 4.32 10*6/uL [facility] WBC corrected for nucl RBC Auto (Bld) [#/Vol] 7.1 [facility] COMPREHENSIVE METABOLIC PANE Jamel 04-11-2023 Albumin [Mass/Vol] 4.3 g/dL Normal 3.2-5.3 [facility] Comment on above: Performed By: #### C BCA, CMP, 21978-8, 3016-3, 54058-4, 2131-11 #### [facility] ([id number]) [address], [address] [place] [address] ALP [Catalytic activity/Vol] 70 U/L Normal 39-130 [facility] Comment on above: Performed By: #### C BCA, CMP, 92196-2, 3016-3, 13300-6, 2131-11 #### [facility] ([id number]) [address], [address] [place] [address] ALT [Catalytic activity/Vol] 17 U/L Normal 0-31 [facility] Comment on above: Performed By: #### C BCA, CMP, 39839-7, 3016-3, 40469-5, 2131-11 #### [facility] ([id number]) [address], [address] [place] [address] Anion gap [Moles/Vol] 9 mmol/L Normal 5-15 [facility] Comment on above: Performed By: #### C BCA, CMP, 01070-5, 3016-3, 59588-7, 2131-11 #### [facility] ([id number]) [address], [address] [place] [address] AST [Catalytic activity/Vol] 17 U/L Normal 0-41 [facility] Comment on above: Performed By: #### C BCA, CMP, 16425-9, 3016-3, 97846-7, 2131-11 #### [facility] ([id number]) [address], [address] [place] [address] Bilirubin [Mass/Vol] 0.4 mg/dL Normal 0.3-1.2 [facility] Comment on above: Performed By: #### C BCA, CMP, 55396-2, 3016-3, 09107-5, 2131-11 #### [facility] ([id number]) [address], [address] [place] [address] Calcium [Mass/Vol] 9.2 mg/dL Normal 8.5-10.5 [facility] Comment on above: Performed By: #### C BCA, CMP, 56546-0, 3016-3, 10426-4, 2131-11 #### [facility] ([id number]) [address], [address] [place] [address] Chloride [Moles/Vol] 108 mmol/L Normal 98-109 [facility] Comment on above: Performed By: #### C BCA, CMP, 14440-3, 3016-3, 28498-7, 2131-11 #### [facility] ([id number]) [address], [address] [place] [address] CO2 [Moles/Vol] 26 mmol/L Normal 22-32 [facility] Comment on above: Performed By: #### C BCA, CMP, 74554-1, 3016-3, 47729-8, 2131-11 #### [facility] ([id number]) [address], [address] [place] [address] Creatinine [Mass/Vol] 0.56 mg/dL Normal 0.40-1.00 [facility] Comment on above: Result Comment: METH OD TRACEABLE TO IDMS STANDARD Performed By: #### C BCA, CMP, 89107-5, 3016-3, 24581-1, 2131-11 #### [facility] ([id number]) [address], [facility] [address] [place] [address] eGFR (CKD-EPI) NON-RACE DEPENDENT >90 Normal >59 [facility] Comment on above: Result Comment: Reported eGFR is based on the CKD-EPI 2020 equation that does not use a race coefficient. Performed By: #### C BCA, CMP, 46599-6, 3016-3, 02899-7, 2131-11 #### [facility] ([id number]) [address] [address] Glucose [Mass/Vol] 83 mg/dL Normal 65-99 [facility] Comment on above: Performed By: #### C BCA, CMP, 84628-7, 3016-3, 92627-8, 2131-11 #### [facility] ([id number]) [address] [address] Potassium [Moles/Vol] 4.0 mmol/L Normal 3.5-5.0 [facility] Comment on above: Performed By: #### C BCA, CMP, 25192-3, 3016-3, 02431-7, 2131-11 #### [facility] ([id number]) [address] [address] Protein [Mass/Vol] 6.7 g/dL Normal 6.0-8.0 [facility] Comment on above: Performed By: #### C BCA, CMP, 16087-8, 3016-3, 76784-9, 9 #### [facility] ([id number]) [address] [place] [address] Sodium [Moles/Vol] 143 mmol/L Normal 134-146 [facility] Comment on above: Performed By: #### C BCA, CMP, 32886-7, 3016-3, 21563-0, 2131-11 #### [facility] ([id number]) [address] [address] [place] [address] Urea nitrogen [Mass/Vol] 12 mg/dL Normal 5-23 [facility] Comment on above: Performed By: #### C BCA, CMP, 79282-9, 3016-3, 87137-8, 2131-11 #### [facility] ([id number]) [address] [facility] [address] [place] [address] HGB A1C (GLYCO-HGB)on 2023 Glucose [Mass/Vol] 105 mg/dL Normal [facility] Comment on above: Performed By: #### C TRAVIS, CMP, 86143-6, 3016-3, 79108-8, 2131-11 #### [facility] ([id number]) [address] [facility] [address] [place] [address] HbA1c (Bld) [Mass fraction] 5.3 % Normal 4.4-5.6 [facility] Comment on above: Result Comment: NOTE ADA Guidelines Result HgbA1c Normal : less than 5.7 % Prediabetes : 5.7 % to 6.4 % Diabetes : > 6.4 % Use with caution in patients with abnormal hemoglobin variants as the half-life of red blood cells and in vivo glycation rates are affected. Performed By: #### C BCA, CMP, 88285-5, 3016-3, 80397-9, 2131-11 #### [facility] ([id number]) [address] [address] [place] [address] Lipid 1996 panelon 4 Cholesterol [Mass/Vol] 144 mg/dL Low 150-200 [facility] Comment on above: Performed By: ###Issac Estrella BCA, CMP, 24996-2, 3016-3, 48174-0, 2131-11 #### [facility] ([id number]) [address] [place] [address] Cholesterol in HDL [Mass/Vol] 65 mg/dL Normal >39 [facility] Comment on above: Result Comment: HDL <40 mg/dL - High Risk HDL > or = 40mg/dL- Desirable HDL >60 mg/dL - Negative Risk Performed By: ###Issac Estrella BCA, CMP, 40448-4, 3016-3, 52587-2, 2131-11 #### [facility] ([id number]) [address] [place] [address] Cholesterol in LDL [Mass/Vol] 54 mg/dL Normal <130 [facility] Comment on above: Result Comment: LDL <100 mg/dL - Desirable LDL >160 mg/dL - High Risk Performed By: #### Sameer ROBLES, CMP, 44261-2, 3016-3, 21299-2, 2131-11 #### [facility] ([id number]) [address] [place] [address] Cholesterol in VLDL [Mass/Vol] 25 mg/dL Normal 0-30 [facility] Comment on above: Performed By: ###Issac Estrella BCA, CMP, 66805-3, 3016-3, 15875-4, 2131-11 #### [facility] ([id number]) [address] [place] [address] CHOLESTEROL:HDL 2.2 Normal 1.0-5.0 [facility] Comment on above: Performed By: #### C TRAVIS, GALILEO, 34324-4, 3016-3, 02254-3, 2131-11 #### [facility] ([id number]) [address] [place] [address] Triglyceride [Mass/Vol] 125 mg/dL Normal 27-150 [facility] Comment on above: Performed By: #### C TRAVIS, CMP, 30059-2, 3016-3, 45013-2, 2131-11 #### [facility] ([id number]) [address] [place] [address] TSH Qnon 04-11-2023 TSH 1.54 uIU/mL Normal 0.49-4.67 [facility] Comment on above: Performed By: #### Sameer TRAVIS, [facility], 16142-1, 3016-3, 38614-7, 2131-11 #### [facility] ([id number]) [address] [place] [address] VITAMIN B12on 04-11-2023 Cobalamin (Vitamin B12) [Mass/Vol] 510 pg/mL Normal 180-914 [facility] Comment on above: Performed By: #### Sameer TRAVIS, [facility], 95689-0, 3016-3, 16072-1, 9 #### [facility] ([id number]) [address] [place] [address] Vitamin D+Metabolites [Mass/ Vol]on 04-11-2023 VITAMIN D 25 HYD TOT 42.1 ng/mL Normal 30-100 [facility] Comment on above: Result Comment: Vitamin D status 25 [place] Vitamin D Deficiency <20 ng/mL Insufficiency 20-29 ng/mL Sufficiency 30-100 ng/mL Toxicity >100 ng/mL NOTE: A pediatric reference range has not been established by the academic tutor of this kit. The [place] [employer] recommends a Vitamin D level of = or >20ng/mL in infants and children. Performed By: #### C TRAVIS, [facility], 19757-1, 3016-3, 74749-6, 2132-9 #### [facility] ([id number]) [address] [facility] [place] [address] XR pre/post mri xrayon 02-23 XR pre/post mri xray [facility] [place] [address] [place] [address] MRI Report Signed Patient: Tyrone Lim MR#: [id number] : 1985 Acct:[id number] Age/Sex: 38 / F ADM Date: 02/23/23 Loc: MR Room: Type: [facility] Attending Dr: Johana HUTCHINSON Copies to: EVANGELINA Israel Ordering Provider: EVANGELINA Israel Date of Service: 02/23/23 MR/MR lumbar spine wo/w con: Z98.1 ([id number]) XR/XR pre/post mri xray: Z98.1 MR lumbar [...] Jason Stone M.D.02/23/2023 5:57 PM Dictation Location: [place] [address] Transcribed By: [facility] 02/23/231756 Dictated By: Jason Stone II, MD 02/23/23 1744 Signed By: 02/23/231756 Normal [facility] Hep C RT-PCR, Qnt (Non-Graph )on 12-13-2022 Hepatitis C Quantitation Not detected Normal . [facility] Comment on above: Order Comment: Reaso n for Exam Hepatitis C Performed By: #### H CV RNAQNT ####[facility] , Test Information: Normal . [facility] Comment on above: Order Comment: Reaso n for Exam Hepatitis C Result Comment: The quantitative range of this assay is 15 IU/mL to 100 million IU/mL. Performed at: [facility] [id number] System Administration Manager: Augusto Lowry MD, Phone: [phone] PERFORMED BY: [facility] [address] PATHOLOGIST [employer] SUPERINTENDENT LAURI PATEL M.D. Performed By: #### H CV RNAQNT ####[facility] , Hepatitis C virus RNA [log u nits/volume] (viral load) in Serum or Plasma by BETITO withOrdered By: Ladarius Pitts on 12-13-2022 HCV RNA BETITO+probe [Log units/Vol] Not detected . [facility] No Panel InformationOrdered By: Ladarius Pitts on 12-13-2022 Hepatitis C RNA (PCR) Interpret See comment . [facility] Comment on above: The quantitative ran ge of this assay is 15 IU/mL to 100million IU/mL.Performed at: [facility] [id number] Director: Augusto Lowry MD, Phone: [phone] Aerobic Cultureon 09-22-2022 Aerobic Culture ORGANISM: Eusebialli n Jak Staph Aureus (O:MRSA) Quantity of Growth Heavy [...] RESISTANT TO ALL B-LACTAM DRUGS. PERFORMED BY: [place] [address] PATHOLOGIST [employer] SUPERINTENDENT LAURI PATEL M.D. Normal [facility] Comment on above: Performed By: #### A GRETTA, GS #### [address] Anaerobic cultureOrdered By: Berenice Haile on 09-22-2022 Bacteria identified Anaer cx Nom (Unsp spec) No Anaerobes Isolated 3 Days [facility] Bacteria identified Aer cx N om (Unsp spec)Ordered By: Berenice Haile on 09-22-2022 Aerobic Culture Methicillin Resis St aph Aureus [facility] Gram Stainon 09-22-2022 Microscopic observation Gram stain Nom (Unsp spec) Gram Stain Result 2+ Gram Positive Cocci 1+ White Blood Cells PERFORMED BY: [place] [address] PATHOLOGIST [employer] SUPERINTENDENT LAURI PATEL M.D. Normal [facility] Comment on above: Performed By: #### A GRETTA, ILEANA #### [address] Gram stain for investigation of transfusion reactionOrdered By: Berenice Haile on 09-22-2022 Microscopic observation Gram stain Nom (Unsp spec) [facility] PAP ACOG PANEL 2: 30 to 65on 06-02-2022 . . Normal [facility] Comment on above: Result Comment: Perf ormed at: WB Performed By: #### V B12LC #### [facility] [address] [place] [address] [address] Drew Castle Age Gdln ACOG Testing 30-65 Normal [facility] Comment on above: Performed By: #### V B12LC #### [facility] [address] [place], [place] [address] Dr. Drew Castle DIAGNOSIS: Comment Abnormal [facility] Comment on above: Result Comment: EPIT HELIAL CELL ABNORMALITY. LOW GRADE SQUAMOUS INTRAEPITHELIAL LESION (LSIL). FUNGAL ORGANISMS MORPHOLOGICALLY CONSISTENT WITH CANDICE SPECIES ARE PRESENT. Performed at: WB Performed By: #### V B12LC #### [facility] [address] [place] [address] Dr. Drew Castle Electronically signed by: Comment Normal [facility] Comment on above: Result Comment: Liz Bryant MD, Pathologist Performed at: WB Performed By: #### V B12LC #### [facility] [address] [place] [address] Dr. Drew Castle HPV Aptima Negative Normal Negative [facility] Comment on above: Result Comment: This nucleic acid amplification test detects fourteen high-risk HPV types (16,18,31,33,35,39,45,51,52,56,58,59,66,68) without differentiation. Performed at: =G Performed By: #### V B12LC #### [facility] [address] [place] [address] Dr. Drew Castle HPV Genotype Reflex Comment Normal [facility] Comment on above: Result Comment: Crit eria not met, HPV Genotype not performed. Performed at: WB Performed By: #### V B12LC #### [facility] [address] [place] [address] Dr. Drew Castle Methodology: Comment Normal [facility] Comment on above: Result Comment: This liquid based ThinPrep(R) pap test was screened with the use of an image guided system. Performed at: WB Performed By: #### V B12LC #### [facility] [address] [place] [address] Dr. Drew Castle Note: Comment Normal [facility] Comment on above: Result Comment: The [...] WB Performed By: #### V B12LC #### [facility] [address] [place] [address] Dr. Drew Castle Pathologist Provided ICD10 Comment Normal [facility] Comment on above: Result Comment: R87. 612, R87.5 Performed at: WB Performed By: #### V B12LC #### [facility] [address] [place] [address] Dr. Drew Castle Performed by: Comment Normal [facility] Comment on above: Result Comment: Carley Irvin, Nuclear Fuel Processing Technician (ASCP) Performed at: WB Performed By: #### V B12LC #### [facility] [address] [place] [address] Dr. Drew Castle Specimen adequacy: Comment Normal [facility] Comment on above: Result Comment: Sati sfactory for evaluation. Endocervical and/or squamous metaplastic cells (endocervical component) are present. Performed at: WB Performed By: #### V B12LC #### [facility] [address] [place] [address] Dr. Drew Castle VAGINITIS/VAGINOSIS DNA PROB Garry 05-26-2022 Candice species Positive Abnormal Negative [facility] Comment on above: Performed By: #### V B12LC #### [facility] [address] [place] [address] Dr. Drew Castle Gardnerella vaginalis Positive Abnormal Negative [facility] Comment on above: Performed By: #### V B12LC #### [facility] [address] [place] [address] Dr. Drew Castle Trichomonas vaginalis Negative Normal Negative [facility] Comment on above: Performed By: #### V B12LC #### [facility] [address] [place] [address] Dr. Drew Castle CULTURE WOUNDon 01-21-2022 CULTURE WOUND Culture Observations : No growth of aerobes at 48 hours. Culture Observations: No growth of anaerobes at 72 hours. Normal [facility] Comment on above: Performed By: #### W OUNDCX #### [facility] [address] [place] [address] Dr. Drew Castle VITAMIN B12on 08-08-2021 Cobalamin (Vitamin B12) [Mass/Vol] 1189 pg/mL Normal 232-1245 [facility] Comment on above: Performed By: #### V B12LC #### [facility] [address] [place] [address] Dr. Drew Caslte CBC AUTO DIFFon 08-06-2021 BASO # 0.0 103/ul Normal 0.0-0.1 [facility] Comment on above: Performed By: #### V B12LC #### [facility] [address] [place] [address] Dr. Drew Castle Basophils/100 WBC (Bld) 0.4 % Normal 0.2-2.0 [facility] Comment on above: Performed By: #### V B12LC #### [facility] [address] [place] [address] Dr. Drew Castle EO # 0.3 103/ul Normal 0.0-0.7 [facility] Comment on above: Performed By: #### V B12LC #### [facility] [address] [place] [address] Dr. Drew Castle Eosinophils/100 WBC (Bld) 6.7 % Normal 0.9-7.0 [facility] Comment on above: Performed By: #### V B12LC #### [facility] [address] [place] [address] Dr. Drew Castle Erythrocyte distribution width (RBC) [Ratio] 13.8 % Normal 11.0-15.0 [facility] Comment on above: Performed By: #### V B12LC #### [facility] [address] [place] [address] Dr. Drew Castle Hematocrit (Bld) [Volume fraction] 37.3 % Normal 36.0-48.0 [facility] Comment on above: Performed By: #### V B12LC #### [facility] [address] [place] [address] Dr. Drew Castle Hemoglobin (Bld) [Mass/Vol] 12.0 g/dL Normal 12.0-16.0 [facility] Comment on above: Performed By: #### V B12LC #### [facility] [address] [place] [address] Dr. Drew Castle IG # 0.01 10e3/ul Normal 0.00-0.03 [facility] Comment on above: Performed By: #### V B12LC #### [facility] [address] [place] [address] Dr. Drew Castle IG % 0.2 % Normal 0.0-0.5 [facility] Comment on above: Performed By: #### V B12LC #### [facility] [address] [place] [address] Dr. Drew Castle LYMPH # 2.7 103/ul Normal 1.2-3.8 [facility] Comment on above: Performed By: #### V B12LC #### [facility] [address] [place] [address] Dr. Drew Castle Lymphocytes/100 WBC (Bld) 59.4 % Normal 20.5-60.0 [facility] Comment on above: Performed By: #### V B12LC #### [facility] [address] [place] [address] Dr. Drew Castle MANUAL DIFF REQ NO Normal [facility] Comment on above: Performed By: #### V B12LC #### [facility] [address] [place] [address] Dr. Drew Castle MCH (RBC) [Entitic mass] 30.6 pg Normal 26.7-34.0 [facility] Comment on above: Performed By: #### V B12LC #### [facility] [address] [place] [address] Dr. Drew Castle MCHC (RBC) [Mass/Vol] 32.2 g/dL Normal 29.9-35.2 [facility] Comment on above: Performed By: #### V B12LC #### [facility] [address] [place] [address] Dr. Drew Castle MCV (RBC) [Entitic vol] 95.2 fL Normal 81.0-99.0 [facility] Comment on above: Performed By: #### V B12LC #### [facility] [address] [place] [address] Dr. Drew Castle MONO # 0.4 103/ul Normal 0.3-0.8 [facility] Comment on above: Performed By: #### V B12LC #### [facility] [address] [place] [address] Dr. Drew Castle Monocytes/100 WBC (Bld) 8.5 % Normal 1.7-12.0 [facility] Comment on above: Performed By: #### V B12LC #### [facility] [address] [place] [address] Dr. Drew Castle NEUT # 1.1 103/ul Critically low 1.4-6.5 [facility] Comment on above: Performed By: #### V B12LC #### [facility] [address] [place] [address] Dr. Drew Castle Neutrophils/100 WBC (Bld) 24.8 % Critically low 43.0-75.0 [facility] Comment on above: Performed By: #### V B12LC #### [facility] [address] [place] [address] Dr. Drew Castle Platelet mean volume (Bld) [Entitic vol] 11.9 fL Normal 9.5-13.5 [facility] Comment on above: Performed By: #### V B12LC #### [facility] [address] [place] [address] Dr. Drew Castle PLT 212 103/ul Normal 150-450 [facility] Comment on above: Performed By: #### V B12LC #### [facility] [address] [place] [address] Dr. Drew Castle RBC 3.92 106/ul Critically low 4.20-5.40 [facility] Comment on above: Performed By: #### V B12LC #### [facility] [address] [place] [address] Dr. Drew Castle WBC 4.6 103/ul Normal 4.0-11.0 [facility] Comment on above: Performed By: #### V B12LC #### [facility] [address] [place] [address] Dr. Drew Castle FERRITINon 08-06-2021 Ferritin [Mass/Vol] 24.0 ng/mL Normal 6.2-137.0 [facility] Comment on above: Performed By: #### I EDIE BARRYAD, FERR, FT4 #### [facility] [address] [place] [address] Dr. Drew Castle FREE T4on 08-06-2021 Free T4 [Mass/Vol] 0.79 ng/dL Normal 0.76-1.46 [facility] Comment on above: Performed By: #### I GAVINO BARRY, FERR, FT4 #### [facility] [address] [place] [address] Dr. Drew Castle GLYCOHEMOGLOBIN A1Con 2021 ADA RECOMMENDATION SEE BELOW Normal [facility] Comment on above: Result Comment: ADA RECOMMENDED LIMIT 4.0 - 6.0 ADA THERAPEUTIC TARGET < 7.0 ACTION SUGGESTED > 7.0 Performed By: #### A 1C #### [facility] [address] [place] [address] Dr. Drew Castle Glucose [Mass/Vol] 111 mg/dL Normal [facility] Comment on above: Performed By: #### A 1C #### [facility] [address] [place] [address] Dr. Drew Castle HbA1c (Bld) [Mass fraction] 5.5 % Normal 4.5-6.2 [facility] Comment on above: Performed By: #### A 1C #### [facility] [address] [place] [address] Dr. Drew Castle IRONon 08-06-2021 Iron [Mass/Vol] 76.0 ug/dL Normal 50.0-170.0 [facility] Comment on above: Performed By: #### I EDIE BARRYAD, FERR, FT4 #### [facility] [address] [place] [address] Dr. Drew Castle LIPID PROFILEon 08-06-2021 CHOL-HDL RATIO NORM SEE BELOW Normal [facility] Comment on above: Result Comment: 3.3 - 4.4 LOW RISK 4.4 - 7.1 AVERAGE RISK 7.1 - 11.0 MODERATE RISK >11.0 HIGH RISK Performed By: #### C MP, LIPID, TSH #### [facility] [address] [place] [address] [address] Drew Castle Cholesterol [Mass/Vol] 150 mg/dL Normal <=200 [facility] Comment on above: Performed By: #### C MP, LIPID, TSH #### [facility] [address] [place] [address] [address] Drew Castle Cholesterol in HDL [Mass/Vol] 59 mg/dL Normal 40-60 [facility] Comment on above: Performed By: #### C MP, LIPID, TSH #### [facility] [address] [place] [address] [address] Drew Castle Cholesterol in LDL [Mass/Vol] 63.4 mg/dL Normal [facility] Comment on above: Performed By: #### C MP, LIPID, TSH #### [facility] [address] [place] [address] [address] Drew Castle Cholesterol.total/Cho lesterol in HDL [Mass ratio] 2.5 {ratio} Normal [facility] Comment on above: Performed By: #### C MP, LIPID, TSH #### [facility] [address] [place] [address] [address] Drew Castle HDL NORMAL > or = 60 mg/dl - LO W CARDIOVASCULAR RISK <40 mg/dl - HIGH CARDIOVASCULAR RISK Normal [facility] Comment on above: Performed By: #### C MP, LIPID, TSH #### [facility] [address] [address] [address] Drew Castle LDL CALC NORMAL SEE BELOW Normal [facility] Comment on above: Result Comment: <100 mg/dl OPTIMAL 100 - 129 mg/dl NEAR OR ABOVE OPTIMAL 130 - 159 mg/dl BORDERLINE HIGH 160 - 189 mg/dl HIGH >190 mg/dl VERY HIGH Performed By: #### C MP, LIPID, TSH #### [facility] [address] [place] [address] [address] Drew Castle Triglyceride [Mass/Vol] 138 mg/dL Normal <=150 [facility] Comment on above: Performed By: #### C MP, LIPID, TSH #### [facility] [address] [place] [address] [address] Drew Castle VLDL CALC 27.6 mg/dL Normal [facility] Comment on above: Performed By: #### C MP, LIPID, TSH #### [facility] [address] [place] [address] [address] Drew Castle PROF 14(COMP METB)on 022 Albumin [Mass/Vol] 3.5 g/dL Normal 3.4-5.0 [facility] Comment on above: Performed By: #### C MP, LIPID, TSH #### [facility] [address] [place] [address] [address] Drew Castle Albumin/Globulin [Mass ratio] 1.1 {ratio} Normal [facility] Comment on above: Performed By: #### C MP, LIPID, TSH #### [facility] [address] [place] [address] Dr. Drew Castle ALP [Catalytic activity/Vol] 61 U/L Normal 46-116 [facility] Comment on above: Performed By: #### C MP, LIPID, TSH #### [facility] [address] [place] [address] Dr. Drew Castle ALT [Catalytic activity/Vol] 29 U/L Normal 14-59 [facility] Comment on above: Performed By: #### C MP, LIPID, TSH #### [facility] [address] [place] [address] Dr. Drew Castle Anion gap [Moles/Vol] 13.9 mmol/L Normal [facility] Comment on above: Performed By: #### C MP, LIPID, TSH #### [facility] [address] [place] [address] Dr. Drew Castle AST [Catalytic activity/Vol] 22 U/L Normal 15-37 [facility] Comment on above: Performed By: #### C MP, LIPID, TSH #### [facility] [address] [place] [address] Dr. Drew Castle Bilirubin [Mass/Vol] 0.4 mg/dL Normal 0.2-1.0 [facility] Comment on above: Performed By: #### C MP, LIPID, TSH #### [facility] [address] [place] [address] [address] Drew Castle Calcium [Mass/Vol] 8.7 mg/dL Normal 8.5-10.1 [facility] Comment on above: Performed By: #### C MP, LIPID, TSH #### [facility] [address] [place] [address] [address] Drew Castle Chloride [Moles/Vol] 107 mmol/L Normal 98-107 [facility] Comment on above: Performed By: #### C MP, LIPID, TSH #### [facility] [address] [place] [address] [address] Drew Castle CO2 [Moles/Vol] 24.9 mmol/L Normal 21.0-32.0 [facility] Comment on above: Performed By: #### C MP, LIPID, TSH #### [facility] Laboratory [address] [place] [address] Dr. Drew Castle Creatinine [Mass/Vol] 0.76 mg/dL Normal 0.55-1.02 [facility] Comment on above: Performed By: #### C MP, LIPID, TSH #### [facility] Laboratory [address] [place] [address] Dr. Drew Castle EGFR-AF YEMENI >60 Normal >=60 [facility] Comment on above: Performed By: #### C MP, LIPID, TSH #### [facility] Laboratory [address] [address] [address] Drew Castle EGFR-NON AF YEMENI >60 Normal >=60 [facility] Comment on above: Performed By: #### C MP, LIPID, TSH #### [facility] Laboratory [address] [place] [address] Dr. Drew Castle Globulin (S) [Mass/Vol] 3.1 g/dL Normal [facility] Comment on above: Performed By: #### C MP, LIPID, TSH #### [facility] Laboratory [address] [place] [address] Dr. Drew Castle Glucose [Mass/Vol] 95 mg/dL Normal 74-106 [facility] Comment on above: Performed By: #### C MP, LIPID, TSH #### [facility] Laboratory [address] [place] [address] Dr. Drew Castle Potassium [Moles/Vol] 3.8 mmol/L Normal 3.5-5.1 [facility] Comment on above: Performed By: #### C MP, LIPID, TSH #### [facility] Laboratory [address] [place] [address] Dr. Drew Castle Protein [Mass/Vol] 6.6 g/dL Normal 6.4-8.2 [facility] Comment on above: Performed By: #### C MP, LIPID, TSH #### [facility] [address] [place] [address] Dr. Drew Castle Sodium [Moles/Vol] 142 mmol/L Normal 136-145 [facility] Comment on above: Performed By: #### C MP, LIPID, TSH #### [facility] [address] [place] [address] Dr. Drew Castle Urea nitrogen [Mass/Vol] 16.0 mg/dL Normal 7.0-18.0 [facility] Comment on above: Performed By: #### C MP, LIPID, TSH #### [facility] [address] [place] [address] Dr. Drew Castle Urea nitrogen/Creatinine [Mass ratio] 21.1 mg/mg Normal [facility] Comment on above: Performed By: #### C MP, LIPID, TSH #### [facility] [address] [place] [address] Dr. Drew Castle TSHon 08-06-2021 TSH 2.421 uIU/mL Normal 0.358-3.740 [facility] Comment on above: Performed By: #### C MP, LIPID, TSH #### [facility] Laboratory [address] [place] [address] Dr. Drew Castle TSH RANGE SEE BELOW Normal [facility] Comment on above: Result Comment: <0.3 4 UIU/ml HYPERTHYROID 0.34-5.60 UIU/ml EUTHYROID >5.60 UIU/ml HYPOTHYROID Performed By: #### C MP, LIPID, TSH #### [facility] [address] [address] [address] Drew Castle UA RANDOM W/MICROSCOPICon BACTERIA NONE SEEN Normal NONE SEEN [facility] Comment on above: Performed By: #### V B12LC #### [facility] [address] [address] [address] Drew Castle Bilirubin Ql (U) SMALL Abnormal NEGATIVE [facility] Comment on above: Performed By: #### V B12LC #### [facility] [address] [address] [address] Drew Castle CAST NONE SEEN Normal NONE SEEN [facility] Comment on above: Performed By: #### V B12LC #### [facility] [address] [place] [address] Dr. Drew Castle Clarity (U) CLOUDY Abnormal CLEAR [facility] Comment on above: Performed By: #### V B12LC #### [facility] [address] [place] [address] Dr. Drew Castle Color (U) DK. YELLOW Normal YELLOW [facility] Comment on above: Performed By: #### V B12LC #### [facility] [address] [address] [address] Drew Castle Crystals LM Nom (Urine sed) NONE SEEN Normal NONE SEEN [facility] Comment on above: Performed By: #### V B12LC #### [facility] Laboratory [address] [place] [address] Dr. Drew Castle Epithelial cells LM Ql (Urine sed) RARE Normal NONE SEEN /RARE [facility] Comment on above: Performed By: #### V B12LC #### [facility] [address] [place] [address] Dr. Drew Castle Glucose Ql (U) Negative Normal NEGATIVE [facility] Comment on above: Performed By: #### V B12LC #### [facility] [address] [place] [address] Dr. Drew Castle Hemoglobin Ql (U) Negative Normal NEGATIVE [facility] Comment on above: Performed By: #### V B12LC #### [facility] [address] [place] [address] Dr. Drew Castle Ketones Ql (U) Negative Normal NEGATIVE [facility] Comment on above: Performed By: #### V B12LC #### [facility] [address] [place] [address] Dr. Drew Castle LEUKOCYTES Negative Normal NEGATIVE [facility] Comment on above: Performed By: #### V B12LC #### [facility] [address] [place] [address] Dr. Drew Castle MUCOUS NONE SEEN Normal NONE SEEN [facility] Comment on above: Performed By: #### V B12LC #### [facility] [address] [place] [address] Dr. Drew Castle Nitrite Ql (U) Negative Normal NEGATIVE [facility] Comment on above: Performed By: #### V B12LC #### [facility] [address] [place] [address] Dr. Drew Castle pH (U) 6.5 [pH] Normal 5-9 [facility] Comment on above: Performed By: #### V B12LC #### [facility] [address] [place] [address] Dr. Drew Castle RBC NONE SEEN Abnormal 0-2 [facility] Comment on above: Performed By: #### V B12LC #### [facility] [address] [place] [address] Dr. Drew Castle SPEC GRAVITY 1.025 Normal 1.005-<=1.02 5 [facility] Comment on above: Performed By: #### V B12LC #### [facility] [address] [place] [address] Dr. Drew Castle UA PROTEIN TRACE Normal NEGATIVE/ TRACE [facility] Comment on above: Performed By: #### V B12LC #### [facility] [address] [place] [address] Dr. Drew Castle Urobilinogen Qn (U) 1.0 {Jeff'U}/dL Normal 0.2 - 1. 0 [facility] Comment on above: Performed By: #### V B12LC #### [facility] [address] [address] [address] Drew Castle WBC NONE SEEN Normal NONE SEEN [facility] Comment on above: Performed By: #### V B12LC #### [facility] [address] [place] [address] Dr. Drew Castle VITAMIN D 25 OHon 08-06-2021 VIT D 25-OH 45.7 ng/mL Normal [facility] Comment on above: Performed By: #### I ASHA, VITAD, FERR, FT4 #### [facility] [address] [place] [address] Dr. Drew Castle VIT D RANGES SEE BELOW Normal [facility] Comment on above: Result Comment: <20 ng/mL Vit D deficient 20 - <30 ng/mL Vit D insufficient 30 - 100 ng/mL Vit D sufficient >100 ng/mL Potential Toxicity Performed By: #### I ASHA, VITAD, FERR, FT4 #### [facility] [address] [place] [address] Dr. Drew Castle Complete Blood Count Auto Di ffon 03-03-2021 Basophils (Bld) [#/Vol] 0.0 10*3/uL 0.0-0.2 [employer] Other Basophils/100 WBC (Bld) 0.2 % . [employer] Other Eosinophils (Bld) [#/Vol] 0.2 10*3/uL 0.0-0.45 [employer] Other Eosinophils/100 WBC (Bld) 2.4 % . [employer] Other Erythrocyte distribution width (RBC) [Ratio] 14.0 % 11.9-15.3 [employer] Other Hematocrit (Bld) [Volume fraction] 39.2 % 34.0-46.4 [employer] Other Hemoglobin (Bld) [Mass/Vol] 13.6 g/dL 11.8-15.4 [employer] Other Lymphocytes (Bld) [#/Vol] 2.3 10*3/uL 1.00-4.8 [employer] Other Lymphocytes/100 WBC (Bld) 31.0 % . [employer] Other MCH (RBC) [Entitic mass] 31.3 pg 24.7-34.3 [employer] Other MCH (RBC) [Entitic mass] 34.6 pg 32.0-35.0 [employer] Other MCV (RBC) [Entitic vol] 90.4 fL 80-100 [employer] Other Monocytes (Bld) [#/Vol] 0.3 10*3/uL 0.0-0.8 [employer] Other Monocytes/100 WBC (Bld) 4.7 % . [employer] Other Neutrophils (Bld) [#/Vol] 4.5 10*3/uL 1.8-7.7 [employer] Other Neutrophils/100 WBC (Bld) 61.7 % . [employer] Other Platelet mean volume (Bld) [Entitic vol] 8.3 fL 6.3-10.7 [employer] Other Platelets (Bld) [#/Vol] 232 10*3/uL 150-450 [employer] Other RBC (Bld) [#/Vol] 4.34 10*6/uL 3.60-5.00 [employer] Other WBC (Bld) [#/Vol] 7.3 10*3/uL 3.8-11.6 [employer] Other Complete Blood Count Auto Diff 7.3 4.5-11.0 [employer] Other Complete Blood Count Auto Diff 0.2 0-0.5 [employer] Other Prothrombin Time INRon 03-03 INR Coag (PPP) [Relative time] 1.2 {INR} [facility] [employer] Other PT Coag (PPP) [Time] 13.3 s 9.0-12.9 [facility] [employer] Other Acetaminophen levelOrdered B y: Sai Mary on 12-27-2020 Acetaminophen Level <5 Low 10 - 30 ug/mL [employer] Work Phone: Interpretation and review of laboratory results Abnormal [facility] Work Phone: [facility] Work Phone: Blood Gas, VenousOrdered By: Sai Hernandez on 12-27-2020 Manuel Test NOT REPORTED [facility] Work Phone: Carboxyhemoglobin NOT REPORTED 0.0 - 5.0 % [facility] Work Phone: Comment on above: FIO2 NOT REPORTED [facility] Work Phone: HCO3 (Bld) [Moles/Vol] 27.8 mmol/L 24.0 - 30.0 mmol/L [facility] Work Phone: Interpretation and review of laboratory results Abnormal [facility] Work Phone: Methemoglobin NOT REPORTED 0.0 - 1.9 % [employer] [facility] Work Phone: Mode NOT REPORTED [employer] [facility] Work Phone: Negative Base Excess, Rm NOT REPORTED 0.0 - 2.0 mmol/L [facility] Work Phone: NOTIFICATION NOT REPORTED [employer] [facility] Work Phone: NOTIFICATION TIME NOT REPORTED [employer] [facility] Work Phone: O2 Device/Flow/% NOT REPORTED [facility] Work Phone: Oxygen saturation in Blood 96.6 % High 60.0 - 85.0 % [facility] Work Phone: Oxyhemoglobin NOT REPORTED 95.0 [...] Work Phone: Text for Respiratory NOT REPORTED [facility] Work Phone: Total Hb NOT REPORTED 12.0 - 16.0 g/dl [facility] Work Phone: Total Rate NOT REPORTED [facility] Work Phone: VT NOT REPORTED [facility] Work Phone: [facility] Work Phone: CBC Auto DifferentialOrdered By: Sai Hernandez on 12-27-2020 Absolute Eos # 0.26 [facility] Work Phone: Absolute Immature Granulocyte <0.03 [employer] Work Phone: Absolute Lymph # 1.88 [employer] [facility] Work Phone: Absolute [place] # 0.36 [facility] Work Phone: Basophils (Bld) [#/Vol] 10*3/uL [employer] Work Phone: Basophils/100 WBC (Bld) 0 % 0 - 2 % [employer] Work Phone: Differential Type NOT REPORTED [employer] Work Phone: Eosinophils/100 WBC (Bld) 5 % High 1 - 4 % [employer] Phone: Hematocrit (Bld) [Volume fraction] 38.9 % 36.3 - 47.1 % [employer] Phone: Hemoglobin.gastrointe stinal spec 1 Ql (Stl) 12.5 g/dL 11.9 - 15.1 g/dL [employer] Work Phone: Immature granulocytes/100 WBC (Bld) 0 % 0 [employer] Work Phone: Interpretation and review of laboratory results Abnormal [employer] Phone: Lymphocytes/100 WBC (Bld) 38 % 24 - 43 % [employer] Phone: MCH (RBC) [Entitic mass] 29.3 pg 25.2 - 33.5 pg [employer] Work Phone: MCHC (RBC) [Mass/Vol] 32.1 g/dL 28.4 - 34.8 g/dL [employer] Phone: MCV (RBC) [Entitic vol] 91.3 fL 82.6 - 102.9 fL [employer] Phone: Monocytes/100 WBC (Bld) 7 % 3 - 12 % [employer] Work Phone: NRBC Automated 0.0 0.0 per 100 WBC [employer] Phone: Platelet distribution width (Bld) [Ratio] 13.3 % 11.8 - 14.4 % [employer] Phone: Platelet Estimate NOT REPORTED [employer] Phone: Platelet mean volume (Bld) [Entitic vol] 10.4 fL 8.1 - 13.5 fL [employer] Phone: Platelets (Bld) [#/Vol] 181 10*3/uL [employer] Phone: RBC (Bld) [#/Vol] 4.26 10*6/uL 3.95 - 5.1 1 m/uL [employer] Phone: RBC (Bld) [#/Vol] NOT REPORTED [employer] Phone: Segmented neutrophils/100 WBC (Bld) 50 % 36 - 65 % [employer] Phone: Segs Absolute 2.49 [employer] Work Phone: WBC (Bld) [#/Vol] 5.0 10*3/uL [employer] Phone: WBC (Bld) [#/Vol] NOT REPORTED [employer] Phone: [employer] Work Phone: Comprehensive Metabolic Pane l w/ Reflex to MGOrdered By: Sai Hernandez on 12-27-2020 Albumin [Mass/Vol] 4.1 g/dL 3.5 - 5.2 g/dL [employer] Phone: Albumin/Globulin [Mass ratio] 1.7 {ratio} [employer] Phone: ALP (Bld) [Catalytic activity/Vol] 92 U/L 35 - 104 U/L [employer] Phone: ALT [Catalytic activity/Vol] 19 U/L 5 - 33 U/L [employer] Phone: Anion gap [Moles/Vol] 13 mmol/L 9 - 17 mmol/L [employer] Phone: AST [Catalytic activity/Vol] 25 U/L <32 [employer] Phone: Bilirubin [Mass/Vol] 0.57 mg/dL 0.3 - 1 .2 mg/dL [employer] Phone: Calcium [Mass/Vol] 9.4 mg/dL 8.6 - 10. 4 mg/dL [employer] Phone: Chloride [Moles/Vol] 101 mmol/L 98 - 10 7 mmol/L [employer] Phone: CO2 [Moles/Vol] 21 mmol/L 20 - 31 mmol/L [employer] Phone: Creatinine [Mass/Vol] 0.73 mg/dL 0.50 - 0.90 mg/dL [employer] Phone: Free PSA/Total PSA [Mass fraction] 6.5 g/dL 6.4 - 8.3 g/dL [employer] Phone: GFR >60 >60 mL/min [employer] Phone: GFR Non- >60 >60 mL/min [employer] Phone: Glucose [Mass/Vol] 104 mg/dL High 70 - 99 mg/dL [employer] Phone: Potassium [Moles/Vol] 4.0 mmol/L 3.7 - 5.3 mmol/L [employer] Phone: Sodium [Moles/Vol] 135 mmol/L 135 - 144 mmol/L [employer] Phone: Urea nitrogen (BldV) [Mass/Vol] 9 mg/dL 6 - 20 mg/dL [employer] Phone: Urea nitrogen/Creatinine (Bld) [Mass ratio] 12 [facility] Work Phone: Drug screen multi urineOrder ed By: Sai Hernandez on 12-27-2020 Amphetamine Screen, Ur Positive Abnormal NEGATIVE [facility] Work Phone: Barbiturate Screen, Ur Negative NEGATIVE [facility] Work Phone: Benzodiazepine Screen, Urine Negative NEGATIVE [facility] Work Phone: Buprenorphine Urine Negative NEGATIVE [facility] Work Phone: Cannabinoid Scrn, Ur Positive Abnormal NEGATIVE [facility] Work Phone: Cocaine Metabolite, Urine Positive Abnormal NEGATIVE [facility] Work Phone: Interpretation and review of laboratory results Abnormal [facility] Work Phone: MDMA, Urine NOT REPORTED NEGATIVE [employer] Work Phone: Methadone Screen, Urine Negative NEGATIVE [facility] Work Phone: Methamphetamine, Urine Positive Abnormal NEGATIVE [facility] Work Phone: Opiates, Urine Negative NEGATIVE [employer] Work Phone: Oxycodone Screen, Ur Negative NEGATIVE [facility] Work Phone: Phencyclidine, Urine Negative NEGATIVE [facility] Work Phone: Propoxyphene, Urine Negative NEGATIVE [facility] Work Phone: Test Information NOT REPORTED [employer] Work Phone: Tricyclic Antidepressants, Urine Negative NEGATIVE [facility] Work Phone: Comment on above: Drug screen results are to be used for medical purposes only. All positive results are unconfirmed. Testing for employment or legal uses should be sent to a reference laboratory for confirmation. [employer] Work Phone: EthanolOrdered By: Sai munson on 10-23-2021 Ethanol [Mass/Vol] mg/dL <10 mg/dL [employer] Phone: Ethanol percent <0.010 <0.010 % [employer] [facility] Work Phone: [employer] Phone: Glucose, Whole BloodOrdered By: Sai Hernandez on 12-27-2020 Glucose [Mass/Vol] 75 mg/dL 74 - 100 mg/dL [employer] Phone: [employer] Phone: HCG, Quantitative, Ordered By: Sai Hernandez on 12-27-2020 hCG Quant <1 <5 IU/L [employer] Phone: Comment on above: Non-preg premeno <=5 Postmeno <=8 Male <=3 If HCG results do not concur with clinical observations, additional testing to confirm results is recommended. Elevated results not associated with may be found in patients with other diseases such as tumors of the germ cells (testis, ovaries, etc.), bladder, pancreas, stomach, lungs, and liver. [employer] Phone: Laboratory - Chemistry and C hemistry - challengeOrdered By: Sai Hernandez on 12-27-2020 GFR/1.73 sq M.predicted MDRD (S/P/Bld) [Vol rate/Area] [employer] Phone: Comment on above: Average GFR for 30-3 9 years old: 107 mL/min/1.73sq m Chronic Kidney Disease: <60 mL/min/1.73sq m Kidney failure: <15 mL/min/1.73sq m eGFR calculated using average adult body mass. Additional eGFR calculator available at: http://[email or web address].Paperwoven/multiple_crcl_2012.htm Stage 1: Some kidney damage normal GFR Stage 2: Mild kidney damage GFR 60-89 Stage 3: Moderate kidney damage GFR 30-59 Stage 4: Severe kidney damage GFR 15-29 Stage 5: Severe kidney damage GFR <15 ESRD - chronic treatment by dialysis or transplant No Panel InformationOrdered By: Sai Hernandez on 12-27-2020 Interpretation and review of laboratory results Abnormal [facility] Work Phone: [facility] Work Phone: SalicylateOrdered By: Gonzalez Hernandez on 12-27-2020 Salicylate Lvl <1 Low 3 - 10 mg/dL [facility] Work Phone: Urinalysis, reflex to micros copicOrdered By: Sai Hernandez on 12-27-2020 Bilirubin Urine Negative NEGATIVE [facility] Work Phone: Color, UA Yellow Yellow [facility] Work Phone: Glucose, Ur Negative NEGATIVE [facility] Work Phone: Interpretation and review of laboratory results Abnormal [facility] Work Phone: Ketones Ql (U) Negative NEGATIVE [facility] Work Phone: Leukocyte esterase Test strip Ql (U) Negative NEGATIVE [facility] Work Phone: Nitrite, Urine Negative NEGATIVE [facility] Work Phone: pH, UA 6.0 [facility] Work Phone: Protein, UA Negative NEGATIVE [facility] Work Phone: Specific [place], UA <1.005 [facility] Work Phone: Turbidity UA Clear Clear [facility] Work Phone: Urinalysis Comments NOT REPORTED [facility] Work Phone: Urine Hgb Negative NEGATIVE [facility] Work Phone: Urobilinogen, Urine Normal Normal [facility] Work Phone: [facility] Work Phone: Operative Reporton 1 Operative Report MR#: [id number] [facility] Pt. Name: Tyrone Lim Room #: PMC [...] to interact and give feedback. The x-ray wheel alignment technician was supervised and instructed to operate [...] 5-inch Andrew spinal needle was inserted using stba-uxv-birmtb-of-the-n eedle technique. The needle was advanced into [...] Mckeon MD Date Trans: 07/08/2020 02:30 P/ [id number] Normal [facility] SPINAL PAIN BLOCKon 07-09-19 21 SPINAL PAIN BLOCK [facility] Department of Radiology [address] [place] [id number] == Patient Name: TYORNE LIM : 1985 Sex: F Age: Race: White Pt. Location: 18 Patient Status: Ordered Date: 07/08/2020 5:00:00 AM Completed Date: 07/08/2020 01:13 PM Requesting Provider: ALEYDA GOMEZ Attending Provider: Report Copy To: Signs & Symptoms: M96.1 Postlaminectomy syndrome, not elsewhere classified I10 History: Comments: 41649 (50) BILAT S1 TFESI #2 Exam: SPINAL PAIN BLOCK == SPINAL PAIN BLOCK 07/08/2020 1:13 PM SIGNS AND SYMPTOMS: M96.1 Postlaminectomy syndrome, not elsewhere classified I10 TECHNOLOGIST COMMENTS:bilateral S1 TFE .34 min. fluoro. time used - Dr. Gomez IMPRESSION: 0.34 minutes of fluoroscopy was provided for Dr. Gomez for an epidural pain block. Millicent Ferraro ,[employer] District Traffic Chief Electronically signed: ONLY DOCUMENTATION. Transcribed by: [email or web address], User Resident: Electronically Signed by: ONLY DOCUMENTATION @ 07/08/2020 02:14 PM Normal [facility] Comment on above: Order Comment: [id number] (66) BILAT S1 TFESI #2 Operative Reporton 1 Operative Report MR#: [id number] S [facility] Pt. Name: Tyrone Lim Room #: PMC [...] to interact and give feedback. The x-ray wheel alignment technician was supervised and instructed to operate [...] 25-gauge, 5-inch andrew needle was inserted using dkak-bes-egiioh-of-the-n eedle technique. The needle was advanced into [...] Mckeon MD Date Trans: 06/23/2020 12:38 P/ [id number] Normal [facility] SPINAL PAIN BLOCKon 04-19-20 21 SPINAL PAIN BLOCK [facility] Department of Radiology [address] [place] [phone] == Patient Name: TYRONE LIM : 1985 Sex: F Age: Race: White Pt. Location: 18 Patient Status: Ordered Date: 06/11/2020 5:00:00 AM Completed Date: 06/23/2020 11:44 AM Requesting Provider: ALEYDA GOMEZ Attending Provider: Report Copy To: Signs & Symptoms: M96.1 Postlaminectomy syndrome, not elsewhere classified I10 History: Comments: [id number] (50) BILAT S1 TFESI #1 Exam: SPINAL PAIN BLOCK == SPINAL PAIN BLOCK 06/23/2020 11:44 AM SIGNS AND SYMPTOMS: M96.1 Postlaminectomy syndrome, not elsewhere classified I10 TECHNOLOGIST COMMENTS:Dr. Gomez used .43 min of white fluoro time arti S1 TFE IMPRESSION: 0.43 minutes of fluoroscopy was provided for her Patricia for an epidural pain block. AMBAR [place] [employer] Traffic Chief Electronically signed: ONLY DOCUMENTATION. Transcribed by: Wil, Soha Resident: Electronically Signed by: ONLY DOCUMENTATION @ 06/23/2020 03:20 PM Normal [facility] Comment on above: Order Comment: [id number] (50) BILAT S1 TFESI #1 MRI LUMBAR SPINE WO CONTRAST on 09-05-2019 MRI LUMBAR SPINE WO CONTRAST [facility] Department of Radiology [address] [place] [phone] == Patient Name: TYRONE LIM : 1985 Sex: F Age: Race: White Pt. Location: 18 Patient Status: D Ordered Date: 08/23/2019 8:55:00 AM Completed Date: 09/05/2019 11:17 AM Requesting Provider: ALEYDA GOMEZ Attending Provider: Report Copy To: Signs & Symptoms: M54.5 Low back pain I10 History: [employer]ena [employer] Auth via [employer] for CPT 52020 Auth#[id number] Valid 08/28/19-11/26/19 *Sla No to all COVID [...] described. Electronically signed: Arsh [place]. Transcribed by: [email or web address], User Resident: Electronically Signed by: ARSH H[place] @ 09/06/2019 01:26 PM Normal [facility] Comment on above: Order Comment: Sharona monterroso Evaluate Operative Reporton 0 Operative Report MR#: [id number] S [facility] Pt. Name: Tyrone Lim Room #: PMC [...] to interact and give feedback. The x-ray wheel alignment technician was supervised and instructed to operate [...] 5-inch Andrew spinal needle was inserted using ywev-lwj-gejdia-of-the-n eedle technique. The needle was advanced into [...] Armijo MD Date Trans: 08/07/2019 03:57 P/ [id number] Normal [facility] SPINAL PAIN BLOCKon 08-07-19 20 SPINAL PAIN BLOCK [facility] Department of Radiology [address] [place] [phone] == Patient Name: TYRONE LIM : [...] for an epidural pain block. AMBAR [place] District Traffic Chief Electronically signed: ONLY DOCUMENTATION. Transcribed by: [email or web address], User Resident: Electronically Signed by: ONLY DOCUMENTATION @ 08/13/2019 09:18 AM Normal [facility] Comment on above: Order Comment: LEFT S1 TFESI X1 Otheron 2019 Left foot: No acute osseous abnormality. Right foot: Nondisplaced fracture through the 5th metatarsal head without intra-articular extension. Comminuted distal 4th metatarsal fracture with slight impaction and overriding. No joint dislocation is noted. Soft tissue swelling over the forefoot is noted. [facility], [place] EXAMINATION: TWO XRA Y VIEWS OF THE [...] tissue swelling over the midfoot is noted. [place] Sagar, Mhpn Incoming Radiant Results From [employer] - 2019 3:40 PM EST EXAMINATION: TWO [...] tissue swelling over the forefoot is noted. [place] Basic Metabolic Panelon 12-07 Anion gap [Moles/Vol] 10 mmol/L 9 - 17 mmol/L [place] Bun/Cre Ratio 9 [place] Calcium [Mass/Vol] 9.6 mg/dL 8.6 - 10. 4 mg/dL [place] Chloride [Moles/Vol] 107 mmol/L 98 - 10 7 mmol/L [place] CO2 [Moles/Vol] 22 mmol/L 20 - 31 mmol/L [place] Creatinine [Mass/Vol] 0.89 mg/dL 0.5 - 0.9 mg/dL [place] GFR >60 >60 mL/min [place] GFR Non- >60 >60 mL/min [place] Glucose [Mass/Vol] 75 mg/dL 70 - 99 mg/dL [place] Interpretation and review of laboratory results Abnormal [place] Potassium [Moles/Vol] 5.9 mmol/L High 3.7 - 5.3 mmol/L [place] Sodium [Moles/Vol] 139 mmol/L 135 - 144 mmol/L [place] Urea nitrogen [Mass/Vol] 8 mg/dL 6 - 20 mg/dL [place] C-Reactive Proteinon 019 CRP [Mass/Vol] 3.4 mg/L 0 - 5 mg/L [place] CBC Auto Differentialon 12-07 Basophils (Bld) [#/Vol] 0.03 10*3/uL [place] Basophils/100 WBC (Bld) 0 % 0 - 2 % [place] Differential Type NOT REPORTED [place] Eosinophils (Bld) [#/Vol] 0.39 10*3/uL [place] Eosinophils/100 WBC (Bld) 4 % 1 - 4 % [place] Erythrocyte distribution width (RBC) [Ratio] 12.7 % 11.8 - 14.4 % [place] Hematocrit (Bld) [Volume fraction] 46.9 % 36.3 - 47.1 % [place] Hemoglobin (Bld) [Mass/Vol] 15.6 g/dL High 11.9 - 15.1 g/dL [place] Immature granulocytes (Bld) [#/Vol] 1 % High 0 [place] Immature granulocytes (Bld) [#/Vol] 0.05 10*3/uL [place] Interpretation and review of laboratory results Abnormal [place] Lymphocytes (Bld) [#/Vol] 2.86 10*3/uL [place] Lymphocytes/100 WBC (Bld) 30 % 24 - 43 % [place] MCH (RBC) [Entitic mass] 30.6 pg 25.2 - 33.5 pg [place] MCHC (RBC) [Mass/Vol] 33.3 g/dL 28.4 - 34.8 g/dL [place] MCV (RBC) [Entitic vol] 92.0 fL 82.6 - 102.9 fL [place] Monocytes (Bld) [#/Vol] 0.62 10*3/uL [place] Monocytes/100 WBC (Bld) 7 % 3 - 12 % [place] Platelet mean volume (Bld) [Entitic vol] 11.0 fL 8.1 - 13.5 fL [place] Platelets (Bld) [#/Vol] 218 10*3/uL [place] Platelets (Bld) [#/Vol] NOT REPORTED [place] RBC (Bld) [#/Vol] 5.10 10*6/uL 3.95 - 5.1 1 m/uL [place] RBC morphology finding Nom (Bld) NOT REPORTED [place] Segmented neutrophils/100 WBC (Bld) 58 % 36 - 65 % [place] Segs Absolute 5.57 [place] WBC (Bld) [#/Vol] 9.5 10*3/uL [place] WBC (Bld) [#/Vol] 0.0 10*3/uL 0.0 per 10 0 WBC [place] WBC Morphology NOT REPORTED [facility] D-Dimer, Quantitativeon 12-07 D-Dimer, Quant 0.57 High [facility] [place] Comment on above: Elevated levels of [...] Interpretation and review of laboratory results Abnormal [place] MRI LUMBAR SPINE WO CONTRAST on 01-03-2019 Sagar, pn Incoming Radiant Results From [employer] - 01/03/2019 5:32 PM EDT EXAMINATION: MRI [...] and contacting the left L5 nerve root. [place] EXAMINATION: MRI OF THE LUMBAR SPINE [...] likely contacts the left L5 nerve root. [place] Large disc protrusio n within the left L5-S1 foramina causing severe stenosis and contacting the left L5 nerve root. [place] Metabolic Panelon 01-03-2019 GFR/1.73 sq M predicted among non-blacks MDRD (S/P/Bld) [Vol rate/Area] [place] Comment on above: Average GFR for 30-3 9 years old: 107 mL/min/1.73sq m Chronic Kidney Disease: <60 mL/min/1.73sq m Kidney failure: <15 mL/min/1.73sq m eGFR calculated using average adult body mass. Additional eGFR calculator available at: http://www.Datalot.Paperwoven/multiple_crcl_2011.htm Stage 1: Some kidney damage normal GFR Stage 2: Mild kidney damage GFR 60-89 Stage 3: Moderate kidney damage GFR 30-59 Stage 4: Severe kidney damage GFR 15-29 Stage 5: Severe kidney damage GFR <15 ESRD - chronic treatment by dialysis or transplant Sedimentation Rateon 01-03- 019 Sed Rate 5 mm 0 - 20 mm [place] Urinalysis with Microscopico n 01-03-2019 Amorphous, UA 1+ Abnormal None [place], [place] Bacteria, UA TRACE Abnormal None [place] Bilirubin Urine Negative NEGATIVE [place] Casts UA NOT REPORTED /LPF [place] Color, UA YELLOW YELLOW [place] Crystals UA CALCIUM OXALATE Abnormal None /HPF [place], [place] Crystals UA 2 TO 5 Abnormal None /HPF [place] Epithelial Cells UA 2 TO 5 [place] Glucose, Ur Negative NEGATIVE [place] Interpretation and review of laboratory results Abnormal [place] Ketones Ql (U) TRACE Abnormal NEGATIVE [place] Leukocyte esterase Test strip Ql (U) Negative NEGATIVE [place] Mucus, UA NOT REPORTED None [place] Nitrite, Urine Negative NEGATIVE [place] Other Observations UA NOT REPORTED NOT REQ. M [place] pH, UA 5.5 [place] Protein (U) [Mass/Vol] Negative NEGATIVE [place] RBC (U) [#/Vol] None [place] Renal Epithelial, Urine NOT REPORTED 0 /HPF [place] Specific [place], UA 1.020 [place], [place] Trichomonas, UA NOT REPORTED None [facility] [place] Turbidity UA CLEAR CLEAR [place] Urinalysis Comments NOT REPORTED [place], [place] Urine Hgb Negative NEGATIVE [place] Urobilinogen, Urine ELEVATED Abnormal Normal [place] WBC, UA 0 TO 2 [place] Yeast, UA NOT REPORTED None [place] - [place] XR CHEST STANDARD (2 VW)on No acute cardiopulmo nary pathology. [place] EXAMINATION: TWO XRA Y VIEWS OF [...] structures and soft tissues are grossly intact. [place] Sagar, Mhpn Incoming Radiant Results From in3Depth - 01/03/2019 4:49 PM EDT EXAMINATION: TWO [...] grossly intact. IMPRESSION: No acute cardiopulmonary pathology. [place] VL DUP LOWER EXTREMITY VENOU S LEFTon 11-15-[address] [facility] Vascular Lower Extremities DVT Study Procedure Patient Name CARINA Date of Study 11/14/2018 HOLGER D Date of 1985 Gender Female Age 33 year(s) Race Room Number Corporate ID # [id number] Patient MR # [id number] Shipping Receiving Manager FANG Banerjee Interpreting Physician Gino Shepherd Referring [...] !Popliteal !Phasic! ! ! + ----+------+------+----- ---+ [facility] [place] Sagar, Mhpn Incoming Cardio Results From Cpa/Ge - 11/15/2018 12:52 PM EDT [facility] Vascular Lower Extremities DVT Study Procedure Patient Name CARINA Date of Study 11/14/2018 HOLGER Kash Date of 1985 Gender Female Age 33 year(s) Race Room Number Corporate ID # [id number] Patient MR # [id number] Shipping Receiving Manager FANG Banerjee Interpreting Physician Gino Shepherd Referring [...] !Phasic! ! ! + ----+------+------+----- --- + [place] Brain Natriuretic Peptideon 11-14-2018 Natriuretic peptide B (Bld) [Mass/Vol] 50 pg/mL <300 [place] Comment on above: Pro-BNP results audrey ot be compared to BNP results. Natriuretic peptide B (Bld) [Mass/Vol] Pro-BNP Reference Range: [place] Comment on above: Rule Out: <300 [place] Zone: Age <50 300-450 Age 50-75 300-900 Age >75 300-1800 Usually represents mild to moderate HF but other cardiopulmonary causes cannot be ruled out. Rule In: Age <50 >450 Age 50-75 >900 Age >75 >1800 CBC Auto Differentialon 11-05 Basophils (Bld) [#/Vol] 0.07 10*3/uL [place] Basophils/100 WBC (Bld) 1 % 0 - 2 % [place] Differential Type NOT REPORTED [place] Eosinophils (Bld) [#/Vol] 0.73 10*3/uL [place] Eosinophils/100 WBC (Bld) 11 % High 1 - 4 % [place] Erythrocyte distribution width (RBC) [Ratio] 13.2 % 11.8 - 14.4 % [place] Hematocrit (Bld) [Volume fraction] 39.1 % 36.3 - 47.1 % [place] Hemoglobin (Bld) [Mass/Vol] 12.8 g/dL 11.9 - 15.1 g/dL [place] Immature granulocytes (Bld) [#/Vol] 1 % High 0 [place] Immature granulocytes (Bld) [#/Vol] 0.07 10*3/uL [place] Interpretation and review of laboratory results Abnormal [place] Lymphocytes (Bld) [#/Vol] 1.78 10*3/uL [place] Lymphocytes/100 WBC (Bld) 27 % 24 - 43 % [place] MCH (RBC) [Entitic mass] 31.0 pg 25.2 - 33.5 pg [place] MCHC (RBC) [Mass/Vol] 32.7 g/dL 28.4 - 34.8 g/dL [place] MCV (RBC) [Entitic vol] 94.7 fL 82.6 - 102.9 fL [place] Monocytes (Bld) [#/Vol] 0.59 10*3/uL [place] Monocytes/100 WBC (Bld) 9 % 3 - 12 % [place] Morphology Cristiano (Bld) [Interp] Normal [place] Platelet mean volume (Bld) [Entitic vol] 11.2 fL 8.1 - 13.5 fL [place] Platelets (Bld) [#/Vol] NOT REPORTED [place] Platelets (Bld) [#/Vol] 213 10*3/uL [place] RBC (Bld) [#/Vol] 4.13 10*6/uL 3.95 - 5.1 1 m/uL [place] RBC morphology finding Nom (Bld) NOT REPORTED [place] Segmented neutrophils/100 WBC (Bld) 51 % 36 - 65 % [place] Segs Absolute 3.36 [place] WBC (Bld) [#/Vol] 6.6 10*3/uL [place] WBC (Bld) [#/Vol] 0.0 10*3/uL 0.0 per 10 0 WBC [place] WBC Morphology NOT REPORTED [place] Comprehensive Metabolic Pane l w/ Reflex to MGon 11-14-2018 Albumin [Mass/Vol] 3.6 g/dL 3.5 - 5.2 g/dL [place] Albumin/Globulin [Mass ratio] 1.3 {ratio} [place] ALP [Catalytic activity/Vol] 407 U/L High 35 - 104 U/L [place] ALT [Catalytic activity/Vol] 723 U/L High 5 - 33 U/L [place] Anion gap [Moles/Vol] 13 mmol/L 9 - 17 mmol/L [place] AST [Catalytic activity/Vol] 657 U/L High <32 [place] Bilirubin Ql (U) 1.91 mg/dL High 0.3 - 1.2 mg/dL [place] Bun/Cre Ratio 19 [place], [place] Calcium [Mass/Vol] 8.9 mg/dL 8.6 - 10. 4 mg/dL [place] Chloride [Moles/Vol] 103 mmol/L 98 - 10 7 mmol/L [place] CO2 [Moles/Vol] 24 mmol/L 20 - 31 mmol/L [place] Creatinine [Mass/Vol] 0.96 mg/dL High 0.5 - 0.9 mg/dL [place] GFR >60 >60 mL/min [place] GFR Non- >60 >60 mL/min [place] Glucose [Mass/Vol] 71 mg/dL 70 - 99 mg/dL [place] Interpretation and review of laboratory results Abnormal [place] Potassium [Moles/Vol] 4.0 mmol/L 3.7 - 5.3 mmol/L [place] Protein [Mass/Vol] 6.4 g/dL 6.4 - 8.3 g/dL [place] Sodium [Moles/Vol] 140 mmol/L 135 - 144 mmol/L [place] Urea nitrogen [Mass/Vol] 18 mg/dL 6 - 20 mg/dL [place] HIV Screenon 11-14-2018 HIV Ag/Ab NONREACTIVE NONREACTIVE [place] Comment on above: No laboratory eviden ce of HIV infection. If acute HIV infection is suspected, consider testing for HIV-1 RNA. Hepatitis Panel, Acuteon HAV IgM IA Qn (S) NONREACTIVE NONREACTIVE [place] Hep B Core Ab, IgM NONREACTIVE NONREACTIVE [place] Hepatitis B Surface Ag NONREACTIVE NONREACTIVE [place] Hepatitis C Ab REACTIVE Abnormal NONREACTIVE [facility] Ronnia [place] Comment on above: The hepatitis C [...] Interpretation and review of laboratory results Abnormal [place] Metabolic Panelon 11-14-2018 GFR/1.73 sq M predicted among non-blacks MDRD (S/P/Bld) [Vol rate/Area] [place] Comment on above: Average GFR for 30-3 9 years old: 107 mL/min/1.73sq m Chronic Kidney Disease: <60 mL/min/1.73sq m Kidney failure: <15 mL/min/1.73sq m eGFR calculated using average adult body mass. Additional eGFR calculator available at: http://www.Grand Circus/multiple_crcl_2012.htm Stage 1: Some kidney damage normal GFR Stage 2: Mild kidney damage GFR 60-89 Stage 3: Moderate kidney damage GFR 30-59 Stage 4: Severe kidney damage GFR 15-29 Stage 5: Severe kidney damage GFR <15 ESRD - chronic treatment by dialysis or transplant T. pallidum Abon 11-14-2018 T. pallidum, IgG NONREACTIVE NONREACTIVE [place] Comment on above: T. pallidum antibodies [...] joint. Please correlate with area of pain. [place] EXAMINATION: THREE X RAY VIEWS OF [...] spaces appear well maintained. No bony erosions. [facility]ITAL[facility] Sagar, Mhpn Incoming Radiant Results From MiniV[employer]/Eng[employer] - 10/15/2018 10:00 AM EDT EXAMINATION: THREE [...] joint. Please correlate with area of pain. [employer] CHYNA SINGH XR ANKLE LEFT (MIN 3 VIEWS)o n [...] Oh Jr., DO 10/15/[address] [facility] XR FOOT LEFT (MIN 3 VIEWS)on [...] Oh Jr., DO 10/15/[address] [facility] Basic Metabolic Panlon 10-23 Anion gap 3 molar conc 12 mmol/L Normal 9-18 [facility] Comment on above: Performed By: #### C BCDIF, BMP ####[facility] [phone] Calcium mass conc 9.1 mg/dL Normal 8.5-10.2 [facility] Comment on above: Performed By: #### C BCDIF, BMP ####[place] [address] [phone] Chloride molar conc 108 mmol/L High 97-105 [facility] Comment on above: Performed By: #### C BCDIF, BMP ####[place] [address] [phone] CO2 molar conc 23 mmol/L Normal 22-30 [facility] Comment on above: Performed By: #### C BCDIF, BMP ####[place] [address] [phone] Creatinine mass conc 0.94 mg/dL Normal 0.58-0.96 [facility] Comment on above: Performed By: #### C BCDIF, BMP ####[place] [address] [phone] eGFR- Amer. >60 Normal [facility] Comment on above: Performed By: #### C BCDIF, BMP ####[place] [address] [phone] GFR/1.73 sq M predicted among non-blacks MDRD vol rate/area (S/P/Bld) mL/min/{1.73_m2} Normal [facility] Comment on above: Result Comment: eGFR (Estimated [...] accurately reflect actual GFR. Performed By: #### HUMBERTO PETERS ####[facility] AvBrad[address], [place] [phone] Glucose mass conc 81 mg/dL Normal 74-99 [facility] Comment on above: Result Comment: The [place] Diabetes Association (ADA) provides guidance for cutoff [...] Standards of Medical Care in Diabetes 2016, [place] [employer]. Diabetes Care. 2016.39(Suppl 1). Performed By: #### C HUMBERTO KINGSTON ####[facility] [place], [place] [phone] Potassium molar conc 3.8 mmol/L Normal 3.7-5.1 [facility] Comment on above: Performed By: #### Sameer KINGSTON BMP ####[facility] [place], [place] [phone] Sodium molar conc 143 mmol/L Normal 136-144 [facility] Comment on above: Performed By: #### Sameer KINGSTON BMP ####[facility] [place], [place] [phone] Urea nitrogen mass conc 12 mg/dL Normal 7-21 [facility] Comment on above: Performed By: #### Sameer KINGSTON BMP ####[facility] [place], [place] [phone] CBC and Differentialon 10-23 Abs Baso <0.03 Normal <0.11 [facility] Comment on above: Performed By: #### C BCDIF, BMP ####[place] [address] [phone] Abs [place] 0.48 k/uL Normal <0.87 [facility] Comment on above: Performed By: #### C BCDIF, BMP ####[place] [address] [place] [phone] Abs Neut 2.26 k/uL Normal 1.45-7.50 [facility] Comment on above: Performed By: #### C BCDIF, BMP ####[place] [address] [place] [phone] Absolute nRBC <0.01 Normal <0.01 [facility] Comment on above: Performed By: #### C BCDIF, BMP ####[place] [address] [place] [phone] Basophils/100 WBC Auto (Bld) 0.4 % Normal [facility] Comment on above: Performed By: #### C BCDIF, BMP ####[place] [address] [place] [phone] DTYPE Auto Diff Normal [facility] Comment on above: Performed By: #### C BCDIF, BMP ####[place] [address] [place] [phone] Eosinophils Auto #/vol (Bld) 0.36 10*3/uL Normal <0.46 [facility] Comment on above: Performed By: #### C BCDIF, BMP ####[place] [address] [place] [phone] Eosinophils/100 WBC Auto (Bld) 6.8 % Normal [facility] Comment on above: Performed By: #### C BCDIF, BMP ####[place] [address] [place] [phone] Erythrocyte distribution width Auto Ratio (RBC) 12.3 % Normal 11.5-15.0 [facility] Comment on above: Performed By: #### C BCDIF, BMP ####[place] [address] [place] [phone] Hematocrit Auto Volume Fraction (Bld) 40.2 % Normal 36.0-46.0 [facility] Comment on above: Performed By: #### C BCDIF, BMP ####[place] [address] [place] [phone] Hemoglobin mass conc (Bld) 13.8 g/dL Normal 11.5-15.5 [facility] Comment on above: Performed By: #### C BCDIF, BMP ####[place] [phone] Lymphocytes Auto #/vol (Bld) 2.17 10*3/uL Normal 1.00-4.00 [facility] Comment on above: Performed By: #### C BCDIF, BMP ####[address] [place] [phone] Lymphocytes/100 WBC Auto (Bld) 40.9 % Normal [facility] Comment on above: Performed By: #### C BCDIF, BMP ####[place] [address] [place] [phone] MCH Auto Entitic mass (RBC) 32.5 pG Normal 26.0-34.0 [facility] Comment on above: Performed By: #### C BCDIF, BMP ####[place] [address] [place] [phone] MCHC Auto mass conc (RBC) 34.3 g/dL Normal 30.5-36.0 [facility] Comment on above: Performed By: #### C BCDIF, BMP ####[place] [address] [place] [phone] MCV Auto Entitic volume (RBC) 94.8 fL Normal 80.0-100.0 [facility] Comment on above: Performed By: #### C BCDIF, BMP ####[place] [address] [place], [place] [phone] Monocytes/100 WBC Auto (Bld) 9.1 % Normal [facility] Comment on above: Performed By: #### C BCDIF, BMP ####[place] [address] [place] [phone] Neutrophils/100 WBC Auto (Bld) 42.8 % Normal [facility] Comment on above: Performed By: #### C BCDIF, BMP ####[place] [address] [place], [place] [phone] NRBCs 0.0 /100 WBC Normal 0 [facility] Comment on above: Performed By: #### C BCDIF, BMP ####[place] [address] [place] [phone] Platelet mean volume Auto Entitic volume (Bld) 10.2 fL Normal 9.0-12.7 [facility] Comment on above: Performed By: #### C BCDIF, BMP ####[place] [address] [place] [phone] Platelets Auto #/vol (Bld) 189 10*3/uL Normal 150-400 [facility] Comment on above: Performed By: #### C BCDIF, BMP ####[place] [address] [place] [phone] RBC Auto #/vol (Bld) 4.24 10*6/uL Normal 3.90-5.20 [facility] Comment on above: Performed By: #### C BCDIF, BMP ####[place] [address]ClevelLehigh Ac[place], [place] [phone] WBC Auto #/vol (Bld) 5.30 10*3/uL Normal 3.70-11.00 [facility] Comment on above: Performed By: #### C THEE, HUMBERTO ####[facility] [address] [place], [place] [phone] ED NOTEon 10-23-2017 ED NOTE HNO ID: [id number]: Jan (Rn) CHADD Westervice: Emergency MedicineAuthor Type: [...] any questions/concerns the patient may have. Normal [facility] ED PROV NOTEon 10-23-2017 Protein mass conc HNO ID: [id number]: DB Estrellaervice: Emergency MedicineAuthor Type: PhysicianType: ED Provider NotesFiled: 10/24/2017 6:35 PMNote Text:ED Provider NotePatient Name: Tyrone GuillenRN: [id number] DATE: 10/23/17HistoryPatient presents with:Abscess: R thigh, Hx [...] , [facility] She also endorses a fever of 102 [...] notes arepresent to corroborate this story. Including [facility], which wasone of the hospitals she states she visited. We have a summary recordfrom [place], but no recent visits were noted regarding [...] all over the skin. These lesions are xujnl7lu-0.5cm. There is one on mich-medial thigh on [...] history of chiari malformation, polycystic ovaries. States estrada has been to many hospitals and seen [...] concerns.SIGNATURE: Long Kiser MD, PGY 1Nicholaolga (Res) Margi LFFnpithrs17/20/18 0148Attending NoteI evaluated the patient and personally [...] 10/24/2017Time: 6:33 Giovani Posada MD10/24/17 1835 Normal [facility] Metabolic Panelon 08-16-2017 Creatinine 142.27 mg/dL Invalid Interpretation Code [facility] Otheron 08-16-2017 S. pyogenes Ag IA Ql (Unsp spec) Negative Invalid Interpretation Code [facility] Urinalysis specialist review Interp Cristiano (Unsp spec) WNL Invalid Interpretation Code [facility] S. pyogenes Ag IA Ql (Unsp spec) Negative Invalid Interpretation Code [facility] Urinalysis specialist review Interp Cristiano (Unsp spec) WNL Invalid Interpretation Code [facility] 6-Monoacetylmorphine (6-NAS) Confirm mass conc (U) Negative Invalid Interpretation Code 5 [facility] Acetaminophen mass conc Negative Invalid Interpretation Code 5 [facility] Alpha hydroxyalprazolam mass conc 182.0 ng/mL Invalid Interpretation Code 5 [facility] Alprazolam mass conc 107.0 ng/mL Invalid Interpretation Code 5 [facility] Amitriptyline mass conc 865.0 ng/mL Invalid Interpretation Code 10 [facility] Amphetamine mass conc 53855 Invalid Interpretation Code 25 [facility] Butalbital Ql Negative Invalid Interpretation Code >250 [facility] Negative Invalid Interpretation Code 10 [facility] 182 Invalid Interpretation Code 5 [facility] 107 Invalid Interpretation Code 5 [facility] 865 Invalid Interpretation Code 10 [facility] 78688 Invalid Interpretation Code 25 [facility] 605 Invalid Interpretation Code 10 [facility] 05529 Invalid Interpretation Code 500 [facility] 2186 Invalid Interpretation Code 200 [facility] 83 Invalid Interpretation Code 50 [facility] 5616 Invalid Interpretation Code 25 [facility] 202 Invalid Interpretation Code 10 [facility] 6615 Invalid Interpretation Code 10 [facility] 601 Invalid Interpretation Code 10 [facility] 255591 Invalid Interpretation Code 500 [facility] 0 Invalid Interpretation Code [facility] [facility] 5.5 Invalid Interpretation Code [facility] 1.016 Invalid Interpretation Code [facility] 137 Invalid Interpretation Code 5 [facility] 137.0 ng/mL Invalid Interpretation Code 5 [facility] Urinalysison 08-16-2017 HCG.beta subunit ( test) Ql (U) Negative Invalid Interpretation Code [facility] HCG.beta subunit ( test) Ql (U) Negative Invalid Interpretation Code [facility] AEROBIC CULTUREon 06-09-2017 AEROBIC CULTURE SPECIMEN NUMBER: [id number] [facility] Comment on above: Result Comment: AERO BIC CULTURE REPORT STATUS: FINAL SITE/TYPE: RIGHT PALM STAIN RESULT(S): SMALL AMOUNT CELLULAR DEBRIS NO ORGANISMS SEEN CURRENT ANTIBIOTIC(S):NOT STATED CULTURE RESULT(S): NORMAL SKIN ZENY PRESENT VIRAL CULTURE, NON-RESPIRATO Jordi 06-09-2017 VIRAL CULTURE, NON-RESPIRATORY SEE NOTE Normal NEGATIVE [facility] Comment on above: Result Comment: Cult ure negativePerformed by [email or web address] [facility],[place] [address] [email or web address], Cezar Ledbetter MD, Lab. Director EFFECTIVE 04/18/2017 CLINICAL CHEMISTRY PLATFORM CHANGES IN MAIN LABORATORY ARE ASSOCIATED WITH REFERENCE RANGE CHANGES FOR A NUMBER OF ANALYTES. PLEASE REVIEW REFERENCE INTERVALS CAREFULLY P [facility] [address] [id number] Director: Nnamdi Castro M.D.CLIA No. [id number] CAP Accreditation No. [id number] SURG. PATHOLOGY REPORTon SURGICAL PATHOLOGY REPORT [facility] Comment on above: Result Comment: DIAG NOSISRIGHT PALM, SKIN BIOPSY:STRATUM CORNEUM/KERATINACEOUS CRUSTNON-DIAGNOSTIC [id number]/05/31/2017 Electronically Signed Out by Renetta Partida M.D.NATURE OF SPECIMENRight palmCLINICAL FINDINGSUnroofing of persistent hand ulcersGROSS DESCRIPTIONThe container is labeled Tyrone Lim, palm . Received informalin is a aleman [...] PLEASE REVIEW REFERENCE INTERVALS CAREFULLY P [facility] [employer] [address] [place] [id number] Director: Nnamdi Castro M.D.CLIA No. [id number] CAP Accreditation No. [id number] AEROBIC CULTUREon 02-22-2017 AEROBIC CULTURE SPECIMEN NUMBER: [id number] [facility] Comment on above: Result Comment: AERO BIC CULTURE REPORT STATUS: FINAL SITE/TYPE: GROIN STAIN RESULT(S): MODERATE AMOUNT PROTEINACEOUS MATERIAL SMALL AMOUNT SQUAMOUS EPITHELIAL CELLS NO ORGANISMS SEEN CURRENT ANTIBIOTIC(S):NOT STATED CULTURE RESULT(S): NORMAL SKIN ZENY PRESENT NO NEISSERIA GONORRHOEAE ISOLATEDPathology [facility] [address] [place] [id number] Director: Jacoby Olson M.D.CLIA No. [id number] CAP Accreditation No. [id number] Urinalysison 02-22-2017 HCG.beta subunit ( test) Ql (U) Negative Invalid Interpretation Code [facility] HCG.beta subunit ( test) Ql (U) Negative Invalid Interpretation Code [facility] Metabolic Panelon 01-06-2017 Hemoglobin A1c/Hemoglobin.total mass fraction (Bld) 5.20 % Invalid Interpretation Code < 7 [facility] Hemoglobin A1c/Hemoglobin.total mass fraction (Bld) 5.20 % Invalid Interpretation Code < 7 [facility] Otheron 01-06-2017 2 Invalid Interpretation Code [facility] 2 Invalid Interpretation Code [facility] Vital Signs Date Time Vital Sign Value Performing Clinician Facility 01-10-2024 15:19-0500 Diastolic blood pressure 90 mm[Hg] Yumiko Elizalde APRN-JOCKEY ROOM CUSTODIAN Work Phone: [facility] [employer] [facility] 01-10-2024 15:19-0500 Heart rate 100 /min Yumiko Elizalde WATER SERVICE SUPERVISOR-JOCKEY ROOM CUSTODIAN Work Phone: [facility] 01-10-2024 15:19-0500 Respiratory rate 20 /min Yumiko Elizalde WATER SERVICE SUPERVISOR-JOCKEY ROOM CUSTODIAN Work Phone: [facility] 01-10-2024 15:19-0500 Systolic blood pressure 140 mm[Hg] Yumiko Elizalde WATER SERVICE SUPERVISOR-JOCKEY ROOM CUSTODIAN Work Phone: [facility] 10-06-2023 13:03-0400 Body height 189.23 cm [facility] 10-06-2023 13:03-0400 Body mass index (BMI) [Ratio] 26.3 kg/m2 [facility] 10-06-2023 13:03-0400 Body weight 94.34 kg [facility] 10-06-2023 13:03-0400 Diastolic blood pressure 64 mm[Hg] [facility] 10-06-2023 13:03-0400 Heart rate 111 /min [facility] 10-06-2023 13:03-0400 SaO2% (BldA) [Mass fraction] 98 % [facility] 10-06-2023 13:03-0400 Systolic blood pressure 114 mm[Hg] [facility] 06-15-2023 16:37-0400 Diastolic blood pressure 72 mm[Hg] GENOVEVA Haile Work Phone: [facility] 06-15-2023 16:37-0400 Heart rate 73 /min GENOVEVA Haile Work Phone: [facility] 06-15-2023 16:37-0400 Respiratory rate 16 /min GENOVEVA Haile Work Phone: [facility] 06-15-2023 16:37-0400 SaO2% (BldA) [Mass fraction] 100 % GENOVEVA Haile Work Phone: [facility] 06-15-2023 16:37-0400 Systolic blood pressure 109 mm[Hg] GENOVEVA Haile Work Phone: [facility] 06-15-2023 14:03-0400 Inhaled oxygen flow rate 2 L/min GENOVEVA Gracesteffany Work Phone: [facility] 06-15-2023 11:36-0400 Body height 180.34 cm GENOVEVA Haile Work Phone: [facility] 06-15-2023 11:36-0400 Body temperature 98 [degF] GENOVEVA Howellsheela Work Phone: [facility] 06-15-2023 11:36-0400 Body weight 103.87 kg GENOVEVA Howellsheela Work Phone: [facility] 05-31-2023 13:57-0400 Body height 182.9 cm Renetta Elizalde PA Work Phone: [employer] 05-31-2023 13:57-0400 Body mass index (BMI) [Ratio] 26.18 kg/m2 Renetta Elizalde PA Work Phone: [employer] 05-31-2023 13:57-0400 Body weight 87.54 kg Renetta Elizalde PA Work Phone: [employer] 05-31-2023 13:57-0400 Diastolic blood pressure 87 mm[Hg] Renetta Elizalde PA Work Phone: [employer] 05-31-2023 13:57-0400 Heart rate 104 /min Renetta Elizalde PA Work Phone: [employer] 05-31-2023 13:57-0400 Respiratory rate 18 /min Renetta Elizalde PA Work Phone: [employer] 05-31-2023 13:57-0400 SaO2% (BldA) [Mass fraction] 99 % Renetta Elizalde PA Work Phone: [employer] 05-31-2023 13:57-0400 Systolic blood pressure 131 mm[Hg] Renetta Elizalde PA Work Phone: [employer] 05-04-2023 11:44-0500 Body height 182.9 cm Jaswant Verhoff PA-C [facility] 05-04-2023 11:44-0500 Body mass index (BMI) [Ratio] 28.62 kg/m2 Jaswant Verhoff PA-C Work Phone[facility] 05-04-2023 11:44-0500 Body weight 95.71 kg Jaswant Verhoff PA-C Work Phone[facility] [facility] 05-04-2023 11:44-0500 Diastolic blood pressure 103 mm[Hg] Jaswant Verhoff PA-C Work Phone[facility] [facility] 05-04-2023 11:44-0500 Heart rate 95 /min Jaswant Verhoff PA-C Work Phone[facility] 05-04-2023 11:44-0500 Respiratory rate 16 /min Jaswant Verhoff PA-C Work Phone[facility] 05-04-2023 11:44-0500 SaO2% (BldA) [Mass fraction] 100 % Jaswant Verhoff PA-C Work Phone[facility] 05-04-2023 11:44-0500 Systolic blood pressure 145 mm[Hg] Jaswant Verhoff PA-C Work Phone[facility] [facility] 03-21-2023 13:30-0500 Body height 188.59 cm Berenice Haile Other [facility] 03-21-2023 13:30-0500 Body mass index (BMI) [Ratio] 27.16 kg/m2 Berenice Haile Other [employer] Other 03-21-2023 13:30-0500 Body weight 96.62 kg Berenice Haile Other [employer] Other 03-21-2023 13:30-0500 Body weight 96.61 kg [facility] 03-21-2023 13:30-0500 Diastolic blood pressure 80 mm[Hg] Berenice Gracerbacher Other [facility] 03-21-2023 13:30-0500 SaO2% (BldA) [Mass fraction] 100 % Berenice Howellacher Other [employer] [facility] [employer] Other 03-21-2023 13:30-0500 Systolic blood pressure 130 mm[Hg] Berenice Gracerbacher Other [facility] 02-23-2023 13:49-0500 Diastolic blood pressure 85 mm[Hg] WATER SERVICE SUPERVISOR Berenicenico Gracerbacher Work Phone: [facility] 02-23-2023 13:49-0500 Heart rate 91 /min WATER SERVICE SUPERVISOR Berenice Gracerbacher Work Phone: [facility] 02-23-2023 13:49-0500 Respiratory rate 16 /min WATER SERVICE SUPERVISOR Berenice Leslyrbacher Work Phone: [facility] 02-23-2023 13:49-0500 SaO2% (BldA) [Mass fraction] 100 % WATER SERVICE SUPERVISOR Berenicenico Gracerbacher Work Phone: [facility] 02-23-2023 13:49-0500 Systolic blood pressure 128 mm[Hg] WATER SERVICE SUPERVISOR Berenice Leslyrbacher Work Phone: [facility] 02-23-2023 13:41-0500 Body weight 85.72 kg WATER SERVICE SUPERVISOR Berenice Leslyrbacher Work Phone: [facility] 12-13-2022 14:40-0400 Body height 188.59 cm Ladarius Pitts Other [facility] [employer] Other 12-13-2022 14:40-0400 Body mass index (BMI) [Ratio] 27.67 kg/m2 Ladarius Scovanner Other [employer] Other 12-13-2022 14:40-0400 Body weight 98.43 kg Ladarius Scovanner Other [employer] Other 12-13-2022 14:40-0400 Diastolic blood pressure 60 mm[Hg] Ladarius Scovanner Other [employer] Other 12-13-2022 14:40-0400 Systolic blood pressure 109 mm[Hg] Ladarius Scovanner Other [employer] Other 09-22-2022 14:30-0400 Body height 188.59 cm Berenice Haile Other [employer] Other 09-22-2022 14:30-0400 Body mass index (BMI) [Ratio] 27.67 kg/m2 Berenice Haile Other [employer] Other 09-22-2022 14:30-0400 Body weight 98.43 kg Berenice Haile Other [employer] Other 09-22-2022 14:30-0400 Diastolic blood pressure 70 mm[Hg] Berenice Haile Other [employer] Other 09-22-2022 14:30-0400 Systolic blood pressure 118 mm[Hg] Berenice Haile Other [employer] Other 01-19-2022 16:10-0500 Body height 188.59 cm Liz Billingsley Other [employer] Other 01-19-2022 16:10-0500 Body mass index (BMI) [Ratio] 23.72 kg/m2 Liz Billingsley Other [employer] Other 01-19-2022 16:10-0500 Body temperature 98.1 [degF] Liz Billingsley Other [employer] Other 01-19-2022 16:10-0500 Body weight 84.37 kg Liz Billingsley Other [employer] Other 01-19-2022 16:10-0500 Diastolic blood pressure 83 mm[Hg] Liz Billingsley Other [employer] Other 01-19-2022 16:10-0500 Respiratory rate 18 /min Liz Billingsley Other [employer] Other 01-19-2022 16:10-0500 SaO2% (BldA) [Mass fraction] 96 % Liz Billingsley Other [employer] Other 01-19-2022 16:10-0500 Systolic blood pressure 128 mm[Hg] Liz Billingsley Other [employer] Other 03-03-2021 16:00-0500 Body height 188.59 cm Agus Madera Other [employer] Other 03-03-2021 16:00-0500 Body mass index (BMI) [Ratio] 25.12 kg/m2 Agus Madera Other [employer] Other 03-03-2021 16:00-0500 Body weight 89.36 kg Agus Madera Other [employer] Other 03-03-2021 16:00-0500 Diastolic blood pressure 72 mm[Hg] Agus Madera Other [employer] Other 03-03-2021 16:00-0500 Systolic blood pressure 100 mm[Hg] Agus Madera Other [employer] Other 12-27-2020 12:33-0400 Diastolic blood pressure 76 mm[Hg] Sai Hernandez MD Work Phone: [employer] Work Phone: 12-27-2020 12:33-0400 Heart rate 73 /min Sai Hernandez MD Work Phone: [employer] Work Phone: 12-27-2020 12:33-0400 Respiratory rate 14 /min Sai Hernandez MD Work Phone: [employer] Work Phone: 12-27-2020 12:33-0400 Systolic blood pressure 121 mm[Hg] Sai Hernandez MD Work Phone: [employer] Work Phone: 12-27-2020 08:22-0400 SaO2% (BldA) [Mass fraction] 98 % Sai Hernandez MD Work Phone: [employer] Work Phone: 12-27-2020 08:20-0400 Body temperature 97.59 [degF] Sai Hernandez MD Work Phone: [employer] Work Phone: 07-10-2020 15:40-0400 Body height 181.61 cm Rosana Alaniz [facility] Work Phone: [facility] Work Phone: 07-10-2020 15:40-0400 Body mass index (BMI) [Ratio] 31.4 kg/m2 Rosana Alaniz CNP Work Phone: [facility] Work Phone: 07-10-2020 15:40-0400 Body surface area Derived from formula 2.24 m2 Rosana Alaniz CNP Work Phone: [facility] Work Phone: 07-10-2020 15:40-0400 Body temperature 95.8 [degF] Rosana Alaniz CNP Work Phone: [facility] Work Phone: 07-10-2020 15:40-0400 Body weight 103.51 kg Rosana Alaniz CNP Work Phone: [facility] Work Phone: 07-10-2020 15:40-0400 Diastolic blood pressure 68 mm[Hg] Rosana Alaniz CNP Work Phone: [facility] Work Phone: 07-10-2020 15:40-0400 Heart rate 88 /min Rosana Alaniz CNP Work Phone: [facility] Work Phone: 07-10-2020 15:40-0400 Respiratory rate 18 /min Rosana lAaniz CNP Work Phone: [facility] Work Phone: 07-10-2020 15:40-0400 SaO2% (BldA) [Mass fraction] 99 % Rosana Alaniz CNP Work Phone: [facility] Work Phone: 07-10-2020 15:40-0400 Systolic blood pressure 98 mm[Hg] Rosana Alaniz CNP Work Phone: [facility] Work Phone: 03-13-2020 11:26-0500 BMI (Body Mass Index) 33.7 kg/m2 [facility] Work Phone: 03-13-2020 11:26-0500 Body weight 111.13 kg [facility] Work Phone: 03-13-2020 11:26-0500 BSA (Body Surface Area) 2.31 m2 [facility] Work Phone: 03-13-2020 11:26-0500 Height 181.61 cm [facility] Work Phone: 05-24-2019 13:37-0400 BP Diastolic 74 mm[Hg] [facility] Work Phone: 05-24-2019 13:37-0400 BP Systolic 110 mm[Hg] [facility] Work Phone: 05-24-2019 13:27-0400 BMI (Body Mass Index) 33.7 kg/m2 [facility] Work Phone: 05-24-2019 13:27-0400 Body Temperature 96.5 [degF] [facility] Work Phone: 05-24-2019 13:27-0400 Body weight 111.13 kg [facility] Work Phone: 05-24-2019 13:27-0400 BSA (Body Surface Area) 2.31 m2 [facility] Work Phone: 05-24-2019 13:27-0400 Height 181.61 cm [facility] Work Phone: 03-08-2019 13:42-0500 BMI (Body Mass Index) 32.4 kg/m2 [facility] Work Phone: 03-08-2019 13:42-0500 Body weight 106.78 kg [facility] Work Phone: 03-08-2019 13:42-0500 BP Diastolic 78 mm[Hg] [facility] Work Phone: 03-08-2019 13:42-0500 BP Systolic 90 mm[Hg] [facility] Work Phone: 03-08-2019 13:42-0500 BSA (Body Surface Area) 2.27 m2 [facility] Work Phone: 03-08-2019 13:42-0500 Height 181.61 cm [facility] Work Phone: 03-08-2019 13:42-0500 Pulse (Heart Rate) 89 /min [facility] Work Phone: 03-08-2019 13:42-0500 Pulse Oximetry 98 % [facility] Work Phone: 02-20-2019 13:50-0500 BMI (Body Mass Index) 34.5 kg/m2 [facility] Work Phone: 02-20-2019 13:50-0500 Body Temperature 99.1 [degF] [facility] Work Phone: 02-20-2019 13:50-0500 Body weight 113.94 kg [facility] Work Phone: 02-20-2019 13:50-0500 BP Diastolic 70 mm[Hg] [facility] Work Phone: 02-20-2019 13:50-0500 BP Systolic 110 mm[Hg] [facility] Work Phone: 02-20-2019 13:50-0500 BSA (Body Surface Area) 2.34 m2 [facility] Work Phone: 02-20-2019 13:50-0500 Height 181.61 cm [facility] Work Phone: 02-20-2019 13:50-0500 Pulse (Heart Rate) 99 /min [facility] Work Phone: 02-20-2019 13:50-0500 Pulse Oximetry 100 % [facility] Work Phone: 02-20-2019 13:50-0500 Respiratory Rate 18 /min [facility] Work Phone: 01-29-2019 15:45-0500 BP Diastolic 59 mm[Hg] [place], [place] 01-29-2019 15:45-0500 BP Systolic 94 mm[Hg] [place] 01-29-2019 15:45-0500 Pulse (Heart Rate) 69 /min [place], [place] 01-29-2019 15:45-0500 Pulse Oximetry 98 % [place] 01-29-2019 15:45-0500 Respiratory Rate 13 /min [place], [place] 01-29-2019 12:25-0500 BMI (Body Mass Index) 29.03 kg/m2 [place] 01-29-2019 12:25-0500 Body Temperature 97.39 [degF] [place], [place] 01-29-2019 12:25-0500 Body weight 99.79 kg [place], [place] 01-29-2019 12:25-0500 Height 185.4 cm [place], [place] 2019 14:08-0500 Body Temperature 98.1 [degF] [facility], [place] 2019 14:08-0500 BP Diastolic 86 mm[Hg] [place], [place] 2019 14:08-0500 BP Systolic 115 mm[Hg] [place], [place] 2019 14:08-0500 Pulse (Heart Rate) 95 /min Sourav Baird [facility], [place] 2019 14:08-0500 Pulse Oximetry 99 % [facility] [place] 2019 14:08-0500 Respiratory Rate 16 /min [facility] [place] 01-04-2019 08:20-0400 BMI (Body Mass Index) 31.8 kg/m2 [facility] Work Phone: 01-04-2019 08:20-0400 Body Temperature 96.1 [degF] [facility] Work Phone: 01-04-2019 08:20-0400 Body weight 104.78 kg [facility] Work Phone: 01-04-2019 08:20-0400 BP Diastolic 80 mm[Hg] [facility] Work Phone: 01-04-2019 08:20-0400 BP Systolic 106 mm[Hg] [facility] Work Phone: 01-04-2019 08:20-0400 BSA (Body Surface Area) 2.25 m2 [facility] Work Phone: 01-04-2019 08:20-0400 Height 181.61 cm [facility] Work Phone: 01-04-2019 08:20-0400 Pulse (Heart Rate) 69 /min [facility] Work Phone: 01-04-2019 08:20-0400 Pulse Oximetry 98 % [facility] Work Phone: 01-04-2019 08:20-0400 Respiratory Rate 18 /min [facility] Work Phone: 01-03-2019 18:41-0400 BP Diastolic 74 mm[Hg] Elayne Hurley [facility], [place] 01-03-2019 18:41-0400 BP Systolic 90 mm[Hg] Elayne Nazario [facility], [place] 01-03-2019 18:40-0400 Pulse Oximetry 95 % Elayne Nazario [facility], [place] 01-03-2019 13:42-0400 BMI (Body Mass Index) 31.33 kg/m2 Elayne Nazario [facility], [place] 01-03-2019 13:42-0400 Body Temperature 98.01 [degF] Elayne Nazario [facility], [place] 01-03-2019 13:42-0400 Body weight 104.78 kg Elayne Nazario [facility], [place] 01-03-2019 13:42-0400 Pulse (Heart Rate) 71 /min [facility] [place] 01-03-2019 13:42-0400 Respiratory Rate 16 /min Elayne Nazario [facility], [place] 11-20-2018 11:37-0400 BMI (Body Mass Index) 34.8 kg/m2 [facility] Work Phone: 11-20-2018 11:37-0400 Body Temperature 95.4 [degF] [facility] Work Phone: 11-20-2018 11:37-0400 Body weight 114.94 kg [facility] Work Phone: 11-20-2018 11:37-0400 BP Diastolic 80 mm[Hg] [facility] Work Phone: 11-20-2018 11:37-0400 BP Systolic 104 mm[Hg] [facility] Work Phone: 11-20-2018 11:37-0400 BSA (Body Surface Area) 2.34 m2 [facility] Work Phone: 11-20-2018 11:37-0400 Height 181.61 cm [facility] Work Phone: 11-20-2018 11:37-0400 Pulse (Heart Rate) 95 /min [facility] Work Phone: 11-20-2018 11:37-0400 Pulse Oximetry 98 % [facility] Work Phone: 11-20-2018 11:37-0400 Respiratory Rate 18 /min [facility] Work Phone: 11-14-2018 16:21-0400 BMI (Body Mass Index) 34.18 kg/m2 Marco A [employer] [facility], [place] 11-14-2018 16:21-0400 Body Temperature 99.19 [degF] Marco A Meeksese [facility] [place] 11-14-2018 16:21-0400 Body weight 114.31 kg [facility] [place] 11-14-2018 16:21-0400 BP Diastolic 63 mm[Hg] [facility] , [place] 11-14-2018 16:21-0400 BP Systolic 108 mm[Hg] [facility] [place] 11-14-2018 16:21-0400 Pulse (Heart Rate) 87 /min [facility] [place] 11-14-2018 16:21-0400 Pulse Oximetry 99 % [facility] [place] 11-14-2018 16:21-0400 Respiratory Rate 19 /min Marco A [employer] [facility], [place] 10-15-2018 09:11-0400 BMI (Body Mass Index) 30.11 kg/m2 [facility], [place] 10-15-2018 09:11-0400 Body Temperature 97.5 [degF] Jennifer Soysuper [facility] [place] 10-15-2018 09:11-0400 Body weight 100.7 kg Jennifer Soysuper [employer] [facility] , [place] 10-15-2018 09:11-0400 BP Diastolic 80 mm[Hg] [facility] [employer] [facility] , [place] 10-15-2018 09:11-0400 BP Systolic 122 mm[Hg] [facility] , [place] 10-15-2018 09:11-0400 Height 182.9 cm [facility] [place] [facility] [place] 10-15-2018 09:11-0400 Pulse (Heart Rate) 91 /min Jennifer Whaley [facility], [place] 10-15-2018 09:11-0400 Pulse Oximetry 100 % Jennifer Whaley [facility] , [place] 10-15-2018 09:11-0400 Respiratory Rate 16 /min Jennifer [facility], [place] 06-15-2018 15:01-0400 Pulse (Heart Rate) 103 /min [facility] Work Phone: 06-15-2018 15:01-0400 Pulse Oximetry 98 % [facility] Work Phone: 06-15-2018 14:58-0400 BMI (Body Mass Index) 33.7 kg/m2 [facility] Work Phone: 06-15-2018 14:58-0400 Body Temperature 97.1 [degF] [facility] Work Phone: 06-15-2018 14:58-0400 Body weight 111.31 kg [facility] Work Phone: 06-15-2018 14:58-0400 BP Diastolic 86 mm[Hg] [facility] Work Phone: 06-15-2018 14:58-0400 BP Systolic 126 mm[Hg] [facility] Work Phone: 06-15-2018 14:58-0400 BSA (Body Surface Area) 2.31 m2 [facility] Work Phone: 06-15-2018 14:58-0400 Height 181.61 cm [facility] Work Phone: 06-15-2018 14:58-0400 Pulse (Heart Rate) 18 /min [facility] Work Phone: 06-15-2018 14:58-0400 Respiratory Rate 18 /min [facility] Work Phone: 02-16-2018 13:28-0500 BMI (Body Mass Index) 33.99 kg/m2 [facility] 02-16-2018 13:28-0500 Body Temperature 98.3 [degF] [facility] 02-16-2018 13:28-0500 BP Diastolic 65 mm[Hg] [facility] 02-16-2018 13:28-0500 BP Systolic 92 mm[Hg] [facility] [facility] 02-16-2018 13:28-0500 BSA (Body Surface Area) 2.38 m2 [facility] 02-16-2018 13:28-0500 Height 181.61 cm [facility] 02-16-2018 13:28-0500 Pulse (Heart Rate) 110 /min [facility] 02-16-2018 13:28-0500 Pulse Oximetry 99 % [facility] 02-16-2018 13:28-0500 Respiratory Rate 18 /min [facility] 02-16-2018 13:28-0500 Weight 112.12 kg [facility] 02-16-2018 11:28-0500 BMI (Body Mass Index) 34 kg/m2 [facility] Work Phone: 02-16-2018 11:28-0500 Body Temperature 98.3 [degF] [facility] Work Phone: 02-16-2018 11:28-0500 Body weight 112.04 kg [facility] Work Phone: 02-16-2018 11:28-0500 Body weight 112.12 kg [facility] Work Phone: 02-16-2018 11:28-0500 BP Diastolic 65 mm[Hg] [facility] Work Phone: 02-16-2018 11:28-0500 BP Systolic 92 mm[Hg] [facility] Work Phone: 02-16-2018 11:28-0500 BSA (Body Surface Area) 2.32 m2 [facility] Work Phone: 02-16-2018 11:28-0500 Height 181.61 cm [facility] Work Phone: 02-16-2018 11:28-0500 Pulse (Heart Rate) 110 /min [facility] Work Phone: 02-16-2018 11:28-0500 Respiratory Rate 18 /min [facility] Work Phone: 11-24-2017 14:14-0400 BMI (Body Mass Index) 32.32 kg/m2 [facility] 11-24-2017 14:14-0400 Body Temperature 97.4 [degF] [facility] 11-24-2017 14:14-0400 BP Diastolic 80 mm[Hg] [facility] 11-24-2017 14:14-0400 BP Systolic 126 mm[Hg] [facility] 11-24-2017 14:14-0400 BSA (Body Surface Area) 2.32 m2 [facility] 11-24-2017 14:14-0400 Height 181.61 cm Rosana Katty [facility] 11-24-2017 14:14-0400 Pulse (Heart Rate) 104 /min Rosana Katty [facility] 11-24-2017 14:14-0400 Pulse Oximetry 97 % [facility] 11-24-2017 14:14-0400 Respiratory Rate 20 /min [facility] 11-24-2017 14:14-0400 Weight 106.6 kg [facility] 11-24-2017 13:14-0400 BMI (Body Mass Index) 32.32 kg/m2 [facility] 11-24-2017 13:14-0400 Body Temperature 97.4 [degF] [facility] 11-24-2017 13:14-0400 BP Diastolic 80 mm[Hg] [facility] 11-24-2017 13:14-0400 BP Systolic 126 mm[Hg] [facility] 11-24-2017 13:14-0400 BSA (Body Surface Area) 2.32 m2 [facility] 11-24-2017 13:14-0400 Height 181.61 cm [facility] 11-24-2017 13:14-0400 Pulse (Heart Rate) 104 /min Rosana Katty [facility] 11-24-2017 13:14-0400 Pulse Oximetry 97 % [facility] 11-24-2017 13:14-0400 Respiratory Rate 20 /min [facility] 11-24-2017 13:14-0400 Weight 106.6 kg [facility] 11-24-2017 11:14-0400 BMI (Body Mass Index) 32.3 kg/m2 [facility] Work Phone: 11-24-2017 11:14-0400 Body Temperature 97.4 [degF] [facility] Work Phone: 11-24-2017 11:14-0400 Body weight 106.6 kg [facility] Work Phone: 11-24-2017 11:14-0400 BP Diastolic 80 mm[Hg] [facility] Work Phone: 11-24-2017 11:14-0400 BP Systolic 126 mm[Hg] [facility] Work Phone: 11-24-2017 11:14-0400 BSA (Body Surface Area) 2.27 m2 [facility] Work Phone: 11-24-2017 11:14-0400 Height 181.61 cm [facility] Work Phone: 11-24-2017 11:14-0400 Pulse (Heart Rate) 104 /min [facility] Work Phone: 11-24-2017 11:14-0400 Respiratory Rate 20 /min [facility] Work Phone: 08-16-2017 14:15-0400 BMI (Body Mass Index) 30.7 kg/m2 [facility] 08-16-2017 14:15-0400 Body Temperature 97.2 [degF] [facility] 08-16-2017 14:15-0400 BP Diastolic 72 mm[Hg] [facility] 08-16-2017 14:15-0400 BP Systolic 118 mm[Hg] [facility] 08-16-2017 14:15-0400 BSA (Body Surface Area) 2.26 m2 [facility] 08-16-2017 14:15-0400 Height 181.61 cm [facility] 08-16-2017 14:15-0400 Pulse (Heart Rate) 88 /min [facility] 08-16-2017 14:15-0400 Pulse Oximetry 100 % [facility] 08-16-2017 14:15-0400 Respiratory Rate 18 /min [facility] 08-16-2017 14:15-0400 Weight 101.27 kg [facility] 08-16-2017 13:15-0400 BMI (Body Mass Index) 30.7 kg/m2 [facility] 08-16-2017 13:15-0400 Body Temperature 97.2 [degF] [facility] 08-16-2017 13:15-0400 BP Diastolic 72 mm[Hg] [facility] 08-16-2017 13:15-0400 BP Systolic 118 mm[Hg] [facility] 08-16-2017 13:15-0400 BSA (Body Surface Area) 2.26 m2 [facility] 08-16-2017 13:15-0400 Height 181.61 cm [facility] 08-16-2017 13:15-0400 Pulse (Heart Rate) 88 /min [facility] 08-16-2017 13:15-0400 Pulse Oximetry 100 % [facility] 08-16-2017 13:15-0400 Respiratory Rate 18 /min [facility] 08-16-2017 13:15-0400 Weight 101.27 kg [facility] 05-26-2017 14:14-0400 BMI (Body Mass Index) 29.57 kg/m2 [facility] 05-26-2017 14:14-0400 Body Temperature 97.5 [degF] [facility] 05-26-2017 14:14-0400 BP Diastolic 72 mm[Hg] [facility] 05-26-2017 14:14-0400 BP Systolic 118 mm[Hg] [facility] 05-26-2017 14:14-0400 BSA (Body Surface Area) 2.22 m2 [facility] 05-26-2017 14:14-0400 Height 181.61 cm [facility] 05-26-2017 14:14-0400 Pulse (Heart Rate) 100 /min [facility] 05-26-2017 14:14-0400 Pulse Oximetry 98 % [facility] 05-26-2017 14:14-0400 Respiratory Rate 20 /min [facility] 05-26-2017 14:14-0400 Weight 97.52 kg [facility] 05-26-2017 13:14-0400 BMI (Body Mass Index) 29.57 kg/m2 [facility] 05-26-2017 13:14-0400 Body Temperature 97.5 [degF] [facility] 05-26-2017 13:14-0400 BP Diastolic 72 mm[Hg] [facility] 05-26-2017 13:14-0400 BP Systolic 118 mm[Hg] [facility] 05-26-2017 13:14-0400 BSA (Body Surface Area) 2.22 m2 [facility] 05-26-2017 13:14-0400 Height 181.61 cm [facility] 05-26-2017 13:14-0400 Pulse (Heart Rate) 100 /min [facility] 05-26-2017 13:14-0400 Pulse Oximetry 98 % [facility] 05-26-2017 13:14-0400 Respiratory Rate 20 /min [facility] 05-26-2017 13:14-0400 Weight 97.52 kg [facility] 03-29-2017 15:24-0500 BMI (Body Mass Index) 27.69 kg/m2 [facility] 03-29-2017 15:24-0500 Body Temperature 97.5 [degF] [facility] 03-29-2017 15:24-0500 BP Diastolic 80 mm[Hg] [facility] 03-29-2017 15:24-0500 BP Systolic 109 mm[Hg] [facility] 03-29-2017 15:24-0500 BSA (Body Surface Area) 2.15 m2 [facility] 03-29-2017 15:24-0500 Height 181.61 cm [facility] 03-29-2017 15:24-0500 Pulse (Heart Rate) 87 /min [facility] 03-29-2017 15:24-0500 Pulse Oximetry 98 % [facility] 03-29-2017 15:24-0500 Respiratory Rate 18 /min [facility] 03-29-2017 15:24-0500 Weight 91.32 kg [facility] 03-29-2017 14:24-0500 BMI (Body Mass Index) 27.69 kg/m2 [facility] 03-29-2017 14:24-0500 Body Temperature 97.5 [degF] [facility] 03-29-2017 14:24-0500 BP Diastolic 80 mm[Hg] [facility] 03-29-2017 14:24-0500 BP Systolic 109 mm[Hg] [facility] 03-29-2017 14:24-0500 BSA (Body Surface Area) 2.15 m2 [facility] 03-29-2017 14:24-0500 Height 181.61 cm [facility] 03-29-2017 14:24-0500 Pulse (Heart Rate) 87 /min Rosana Katty [facility] 03-29-2017 14:24-0500 Pulse Oximetry 98 % [facility] 03-29-2017 14:24-0500 Respiratory Rate 18 /min [facility] 03-29-2017 14:24-0500 Weight 91.32 kg [facility] 02-22-2017 17:03-0500 BMI (Body Mass Index) 26.41 kg/m2 [facility] 02-22-2017 17:03-0500 Body Temperature 98 [degF] [facility] 02-22-2017 17:03-0500 BP Diastolic 87 mm[Hg] [facility] 02-22-2017 17:03-0500 BP Systolic 130 mm[Hg] [facility] 02-22-2017 17:03-0500 BSA (Body Surface Area) 2.1 m2 [facility] 02-22-2017 17:03-0500 Height 181.61 cm [facility] 02-22-2017 17:03-0500 Pulse (Heart Rate) 88 /min [facility] 02-22-2017 17:03-0500 Pulse Oximetry 100 % [facility] 02-22-2017 17:03-0500 Respiratory Rate 20 /min [facility] 02-22-2017 17:03-0500 Weight 87.09 kg [facility] 02-22-2017 16:03-0500 BMI (Body Mass Index) 26.41 kg/m2 [facility] 02-22-2017 16:03-0500 Body Temperature 98 [degF] [facility] 02-22-2017 16:03-0500 BP Diastolic 87 mm[Hg] [facility] 02-22-2017 16:03-0500 BP Systolic 130 mm[Hg] [facility] 02-22-2017 16:03-0500 BSA (Body Surface Area) 2.1 m2 [facility] 02-22-2017 16:03-0500 Height 181.61 cm [facility] 02-22-2017 16:03-0500 Pulse (Heart Rate) 88 /min [facility] 02-22-2017 16:03-0500 Pulse Oximetry 100 % [facility] 02-22-2017 16:03-0500 Respiratory Rate 20 /min [facility] 02-22-2017 16:03-0500 Weight 87.09 kg [facility] 02-01-2017 16:59-0500 BMI (Body Mass Index) 27.23 kg/m2 [facility] 02-01-2017 16:59-0500 Body Temperature 98.1 [degF] [facility] 02-01-2017 16:59-0500 BP Diastolic 81 mm[Hg] [facility] 02-01-2017 16:59-0500 BP Systolic 132 mm[Hg] [facility] 02-01-2017 16:59-0500 BSA (Body Surface Area) 2.13 m2 [facility] 02-01-2017 16:59-0500 Height 181.61 cm [facility] 02-01-2017 16:59-0500 Pulse (Heart Rate) 83 /min [facility] 02-01-2017 16:59-0500 Pulse Oximetry 94 % [facility] 02-01-2017 16:59-0500 Respiratory Rate 18 /min [facility] 02-01-2017 16:59-0500 Weight 89.81 kg [facility] 02-01-2017 15:59-0500 BMI (Body Mass Index) 27.23 kg/m2 [facility] 02-01-2017 15:59-0500 Body Temperature 98.1 [degF] [facility] 02-01-2017 15:59-0500 BP Diastolic 81 mm[Hg] [facility] 02-01-2017 15:59-0500 BP Systolic 132 mm[Hg] [facility] 02-01-2017 15:59-0500 BSA (Body Surface Area) 2.13 m2 [facility] 02-01-2017 15:59-0500 Height 181.61 cm [facility] 02-01-2017 15:59-0500 Pulse (Heart Rate) 83 /min [facility] 02-01-2017 15:59-0500 Pulse Oximetry 94 % [facility] 02-01-2017 15:59-0500 Respiratory Rate 18 /min [facility] 02-01-2017 15:59-0500 Weight 89.81 kg [facility] 01-06-2017 17:29-0400 BMI (Body Mass Index) 26.41 kg/m2 [facility] 01-06-2017 17:29-0400 Body Temperature 97.9 [degF] [facility] 01-06-2017 17:29-0400 BP Diastolic 81 mm[Hg] [facility] 01-06-2017 17:29-0400 BP Systolic 130 mm[Hg] [facility] 01-06-2017 17:29-0400 BSA (Body Surface Area) 2.1 m2 [facility] 01-06-2017 17:29-0400 Height 181.61 cm [facility] 01-06-2017 17:29-0400 Pulse (Heart Rate) 90 /min [facility] 01-06-2017 17:29-0400 Pulse Oximetry 98 % [facility] 01-06-2017 17:29-0400 Respiratory Rate 18 /min [facility] 01-06-2017 17:29-0400 Weight 87.09 kg [facility] 01-06-2017 16:29-0400 BMI (Body Mass Index) 26.41 kg/m2 [facility] 01-06-2017 16:29-0400 Body Temperature 97.9 [degF] [facility] 01-06-2017 16:29-0400 BP Diastolic 81 mm[Hg] [facility] 01-06-2017 16:29-0400 BP Systolic 130 mm[Hg] [facility] 01-06-2017 16:29-0400 BSA (Body Surface Area) 2.1 m2 [facility] 01-06-2017 16:29-0400 Height 181.61 cm [facility] 01-06-2017 16:29-0400 Pulse (Heart Rate) 90 /min [facility] 01-06-2017 16:29-0400 Pulse Oximetry 98 % [facility] 01-06-2017 16:29-0400 Respiratory Rate 18 /min [facility] 01-06-2017 16:29-0400 Weight 87.09 kg [facility] 12-09-2016 17:31-0400 BMI (Body Mass Index) 26.97 kg/m2 [facility] 12-09-2016 17:31-0400 Body Temperature 99 [degF] [facility] 12-09-2016 17:31-0400 BP Diastolic 62 mm[Hg] [facility] 12-09-2016 17:31-0400 BP Systolic 98 mm[Hg] [facility] 12-09-2016 17:31-0400 BSA (Body Surface Area) 2.12 m2 [facility] 12-09-2016 17:31-0400 Height 181.61 cm [facility] 12-09-2016 17:31-0400 Pulse (Heart Rate) 110 /min [facility] 12-09-2016 17:31-0400 Pulse Oximetry 98 % [facility] 12-09-2016 17:31-0400 Respiratory Rate 18 /min [facility] 12-09-2016 17:31-0400 Weight 88.96 kg [facility] 12-09-2016 16:31-0400 BMI (Body Mass Index) 26.97 kg/m2 [facility] 12-09-2016 16:31-0400 Body Temperature 99 [degF] [facility] 12-09-2016 16:31-0400 BP Diastolic 62 mm[Hg] [facility] 12-09-2016 16:31-0400 BP Systolic 98 mm[Hg] [facility] 12-09-2016 16:31-0400 BSA (Body Surface Area) 2.12 m2 [facility] 12-09-2016 16:31-0400 Height 181.61 cm [facility] 12-09-2016 16:31-0400 Pulse (Heart Rate) 110 /min [facility] 12-09-2016 16:31-0400 Pulse Oximetry 98 % [facility] 12-09-2016 16:31-0400 Respiratory Rate 18 /min [facility] 12-09-2016 16:31-0400 Weight 88.96 kg [facility] Encounters Encounter Date Encounter Type Care Provider Facility Start: 01-10-2024 End: 01-10-2024 [facility] Start: 01-10-2024 End: 01-10-2024 Office outpatient visit 25 minutes Yumiko M Niedil [employer]PER[employer] Work Phone: [facility] Comment on above: Lumbar post-laminect yaritza syndrome (Primary Dx) Start: 12-26-2023 End: 12-28-2023 Clinisync Result Encounter Blake Anmol DO Work Phone: [facility] External [facility] Unsolicited Start: 12-26-2023 End: 12-28-2023 Clinisync Result Encounter Blake Anmol DO Work Phone: [facility] External [facility] Unsolicited Start: 12-23-2023 End: 12-23-2023 [facility] Start: 12-23-2023 End: 12-23-2023 [facility] Start: 11-25-2023 End: 11-25-2023 ambulatory [facility] Start: 11-25-2023 End: 11-25-2023 [facility] Start: 10-25-2023 End: 10-25-[address] [facility] Start: 10-06-2023 End: 10-06-2023 ambulatory [facility] Work Phone: Start: 10-06-2023 End: 10-06-2023 [facility] encounter [facility] Work Phone: Start: 09-19-2023 End: 09-19-2023 ambulatory BLAKE ANMOL Not Available Start: 09-15-2023 End: 09-15-2023 ambulatory [facility] Start: 08-26-2023 End: 08-26-2023 ambulatory [facility] Start: 08-20-2023 End: 08-20-2023 ambulatory DECLAN MONK [facility] Start: 08-19-2023 End: 08-19-2023 ambulatory ANUP Monterroso BUTLER [facility] Start: 08-15-2023 Non-patient / Non-visit [facility] Work Phone: Start: 08-15-2023 End: 08-15-2023 ambulatory BLAKE ANMOL Not Available Start: 06-15-2023 End: 06-15-2023 Emergency department patient visit Berenice Haile Facility:[facility] Start: 06-15-2023 End: 06-15-2023 Emergency department patient visit W[employer] SERVICE SUPERVISOR Berenice Haile Work Phone: [facility] Work Phone: Start: 06-01-2023 End: 06-02-2023 Emergency department patient visit YKLAH AMADO [facility] Start: 05-31-2023 Jason Nicolas MD Work Phone: [facility] Start: 05-31-2023 End: 05-31-2023 Office outpatient visit 15 minutes Renetta ROJAS Work Phone: [facility] Comment on above: Lumbar radiculopathy (Primary Dx) Start: 05-31-2023 End: 05-31-2023 ambulatory RENETTA ELIZALDE [facility] Start: 05-26-2023 End: 05-26-2023 ambulatory [facility] Work Phone: Start: 05-26-2023 End: 05-26-2023 [facility] Work Phone: Start: 05-14-2023 End: 05-14-2023 ambulatory LAITH BCEK [facility] Start: 05-13-2023 End: 05-13-2023 ambulatory ANUP BUTLER [facility] Start: 05-10-2023 Telephone encounter [facility] Start: 05-04-2023 End: 05-04-2023 ambulatory JASWANT N [facility] Start: 05-04-2023 End: 05-04-2023 Office outpatient visit 25 minutes Renetta ROJAS Work Phone: [facility] Comment on above: Lumbar radiculopathy (Primary Dx); Spinal stenosis of lumbar region with neurogenic claudication Start: 04-28-2023 Non-patient / Non-visit [facility] Work Phone: Start: 04-27-2023 [facility] Start: 04-21-2023 Telephone encounter Saida Valiente [facility] Start: 04-19-2023 Non-patient / Non-visit [facility] Work Phone: Start: 04-18-2023 End: 04-18-2023 ambulatory Berenice Haile Other [facility] Other Start: 04-18-2023 Telephone encounter [facility] Start: 04-11-2023 Encounter for genera l adult medical examination without abnormal findings [facility] Start: 04-11-2023 Clinisync Result Encounter Blake Anmol DO Work Phone: [facility] External Department Unsolicited Start: 04-11-2023 External Result Encounter Blake Anmol DO Work Phone: [facility] External [facility] Unsolicited Start: 04-11-2023 External Result Encounter Blake Anmol DO Work Phone: [facility] External Department Unsolicited Start: 04-11-2023 End: 04-11-2023 ambulatory BLAKE ARIZAO Not Available Start: 03-30-2023 Orders Only Johana hansen WATER SERVICE SUPERVISOR-JOCKEY ROOM CUSTODIAN Work Phone: [facility] Comment on above: Bilateral leg pain ( Primary Dx); Herniated lumbar intervertebral disc; S/P lumbar fusion; Lumbar foraminal stenosis Start: 03-21-2023 End: 03-21-2023 ambulatory Berenice Haile Other [employer] Other Start: 03-21-2023 Office outpatient vi sit 25 minutes Berenice Haile [facility] Start: 03-21-2023 End: 03-21-2023 Patient encounter procedure [facility] Work Phone: Start: 03-17-2023 End: 03-17-2023 ambulatory Berenice Haile Other [employer] [facility] [employer] Other Start: 03-17-2023 Telephone encounter Berenice Marsh her [facility] Start: 03-16-2023 Orders Only Johana Gandhi casey WATER SERVICE SUPERVISOR-JOCKEY ROOM CUSTODIAN Work Phone: [facility] Comment on above: S/P lumbar fusion Start: 03-02-2023 ambulatory BERENICE HAILE Pro [facility] Start: 02-23-2023 End: 02-23-2023 ambulatory Lola Montgomery Facility:[facility] Start: 02-23-2023 End: 02-23-2023 ambulatory GENOVEVA Haile Work Phone: [facility] Work Phone: Start: 02-23-2023 End: 02-23-2023 Patient encounter procedure WATER SERVICE SUPERVISOR Berenice Haile Work Phone: [facility] C[facility] [place] Work Phone: Start: 01-17-2023 End: 01-17-2023 ambulatory RENETTA Rosana PASTOR Not Available Start: 12-22-2022 End: 12-22-2022 ambulatory Ladarius Pitts Other [employer] Other Start: 12-22-2022 Telephone encounter Ladarius Marrero [facility] Start: 12-13-2022 End: 12-13-2022 ambulatory Ladarius Pitts Facility:[facility] Start: 12-13-2022 End: 12-13-2022 Patient encounter procedure PHYSICIAN NO [facility] C[facility]-Lab [place] Work Phone: Start: 12-13-2022 End: 12-13-2022 ambulatory PHYSICIAN NO [facility] C[facility] Work Phone: Start: 12-13-2022 Office outpatient ne w 30 minutes Ladarius Pitts [facility] Start: 12-06-2022 End: 12-06-2022 ambulatory Berenice Haile Other [employer] Other Start: 12-06-2022 Telephone encounter Berenice Marsh her [facility] Start: 11-22-2022 End: 11-22-2022 ambulatory Berenice Haile Other [employer] Other Start: 11-22-2022 Telephone encounter Berenice Marsh her [facility] Start: 11-02-2022 End: 11-02-2022 ambulatory Berenice Haile Other [employer] Other Start: 11-02-2022 Telephone encounter Berenice Marsh her [facility] Start: 09-22-2022 End: 09-22-2022 Departed Referred WATER SERVICE SUPERVISOR Berenice Haile Work Phone: [facility] C[facility] [place] Work Phone: Start: 09-22-2022 End: 09-22-2022 ambulatory Berenice Lazara [facility] Work Phone: Start: 09-22-2022 Office outpatient ne w 30 minutes Berenice Haile [facility] Start: 09-08-2022 End: 09-08-2022 Emergency department patient visit [facility] Start: 05-24-2022 End: 05-24-[address] LESLEY LINDSEY . Facility:[facility] Start: 01-21-2022 End: 01-21-2022 ambulatory JOCKEY ROOM CUSTODIAN TERE AICMarileeJRZ Facility:[facility] Start: 01-19-2022 End: 01-19-2022 ambulatory Liz Billingsley Other [employer] Other Start: 01-19-2022 Office outpatient vi sit 15 minutes Lzi Billingsley [facility] Start: 10-08-[address] Arthur MADERA Facili ty:[facility] Start: 08-31-2021 End: 08-31-2021 ambulatory Agus Madera Other [employer] Other Start: 08-31-2021 Telephone encounter Agus ramirez [facility] Start: 08-06-2021 End: 08-07-2021 ambulatory JOCKEY ROOM CUSTODIAN TERE AICMarileeREECE Facility:[facility] Start: 07-01-2021 End: 07-01-2021 ambulatory Agus Madera Other [employer] Other Start: 07-01-2021 Telephone encounter Agus ramirez [facility] Start: 03-03-2021 End: 03-03-2021 ambulatory Agus Madera Other [employer] Other Start: 03-03-2021 Office outpatient ne w 45 minutes Agus MARTINEZ [facility] Start: 12-27-2020 End: 12-27-2020 Emergency department patient visit Sai Hernandez MD Work Phone: [facility] ED Comment on above: Substance abuse (HCC ) (Primary Dx) Start: 07-10-2020 End: 07-10-2020 FQHC visit, estab pt Li DUARTE Work Phone: [facility] Work Phone: Start: 07-10-2020 End: 07-10-2020 FQHC visit, estab pt Li DUARTE Work Phone: [facility] Work Phone: Start: 07-10-2020 End: 07-10-2020 General Megan Arita CNP Work Phone: [facility] Work Phone: Start: 09-05-2019 End: 09-06-2019 ambulatory ROSANA ALANIZ Facility:[facility] Start: 07-16-2019 End: 07-16-2019 Nursing evaluation of patient and report Susan Em Work Phone: [facility] Work Phone: Start: 07-16-2019 End: 07-16-2019 Patient encounter procedure Rosana Alaniz Work Phone: [facility] Work Phone: Start: 07-16-2019 End: 03-13-2020 Patient encounter procedure Liisrael Sutherland Work Phone: [facility] Work Phone: Start: 07-16-2019 End: 03-13-2020 Telemedicine consultation with patient Rosana Alaniz Work Phone: [facility] Work Phone: Start: 07-04-2019 End: 07-04-2019 Telemedicine consultation with patient Rosana Alaniz Work Phone: [facility] Work Phone: Start: 06-01-2019 End: 06-01-2019 Patient encounter procedure Li Sutherland Work Phone: [facility] Work Phone: Start: 06-01-2019 End: 06-01-2019 Telemedicine consultation with patient Rosana Alaniz Work Phone: [facility] Work Phone: Start: 05-24-2019 End: 05-24-2019 Established patient Rosana Alaniz Work Phone: [facility] Work Phone: Start: 03-08-2019 End: 03-08-2019 ambulatory Rosana Alaniz Work Phone: [facility] Work Phone: Start: 02-20-2019 End: 02-20-2019 Established patient dUay Hansen Work Phone: [facility] Work Phone: Start: 02-20-2019 End: 02-20-2019 Established patient Rosana Alaniz Work Phone: [facility] Work Phone: Start: 02-06-2019 End: 02-06-2019 Patient encounter procedure Rosana Alaniz Work Phone: [facility] Work Phone: Start: 01-29-2019 End: 01-29-2019 Emergency department patient visit ROSANA ALANIZ [facility] Start: 01-29-2019 End: 01-29-2019 Emergency department patient visit Waylon Krebs Work Phone: [facility] ED Comment on above: Accidental overdose of heroin, initial encounter (HCC) (Primary Dx) Start: 2019 End: 2019 Emergency department patient visit Sourav E Oli Work Phone: [facility] ED Comment on above: Sciatica of left ramin e (Primary Dx); Closed fracture of right foot, initial encounter Start: 01-04-2019 End: 01-04-2019 Established patient Primitivo Lujan Work Phone: [facility] Work Phone: Start: 01-03-2019 End: 01-03-2019 Emergency department patient visit Elayne Gibson Mei [facility] ED Comment on above: Herniated interverte bral disc of lumbar spine (Primary Dx); Neuropathy Start: 11-20-2018 End: 11-20-2018 Established patient Rosana Alaniz Work Phone: [facility] Work Phone: Start: 11-14-2018 End: 11-14-2018 Emergency department patient visit Marco A Ro Work Phone: [facility] ED Comment on above: Bilateral lower extr emity edema (Primary Dx); Transaminitis; Impetigo Start: 11-14-2018 End: 11-14-2018 Subsequent hospital visit by [facility] Start: 11-14-2018 End: 11-16-2018 Subsequent hospital visit by physician [facility]ascular Imaging Room [facility] Comment on above: Pain of left calf Start: 10-26-2018 End: 10-26-2018 Patient encounter procedure Rosana Katty Work Phone: [facility] Work Phone: Start: 10-25-2018 End: 10-25-2018 Patient encounter procedure Primitivo Lujan Work Phone: [facility] Work Phone: Start: 10-15-2018 End: 10-15-2018 Emergency department patient visit JENNIFER WHALEY [facility] Start: 10-15-2018 End: 10-15-2018 Emergency department patient visit Jennifer Whaley Work Phone: [facility] ED Comment on above: Injury of left foot, initial encounter (Primary Dx) Start: 08-31-2018 End: 08-31-2018 Patient encounter procedure Rosana Alaniz Work Phone: [facility] Work Phone: Start: 06-15-2018 End: 06-15-2018 Established patient Rosana Alaniz Work Phone: [facility] Work Phone: Start: 06-01-2018 End: 06-01-2018 Patient encounter procedure Rosana Alaniz Work Phone: [facility] Work Phone: Start: 04-24-2018 End: 04-24-2018 Patient encounter procedure Rosana Alaniz Work Phone: [facility] Work Phone: Start: 04-06-2018 End: 04-06-2018 Patient encounter procedure Rosana Alaniz Work Phone: [facility] Work Phone: Start: 02-16-2018 Evaluation and management of established outpatient in office or other outpatient facility Rosana Alaniz [facility] Start: 02-16-2018 End: 02-16-2018 Patient encounter procedure Rosana Alaniz [facility] Work Phone: Start: 02-16-2018 Medical Rosana Alaniz Other [facility] Start: 01-16-2018 Patient encounter OZZIE MCKEON Facility:[facility]olog [facility] Start: 11-24-2017 End: 11-24-2017 Patient encounter procedure Rosana Alaniz [facility] Work Phone: Start: 11-24-2017 Laboratory examinati on, unspecified Rosana Alaniz [facility] Start: 11-24-2017 Comprehensive metabo lic panel Rosanaray Alaniz [facility] Start: 11-24-2017 End: 11-24-2017 Office outpatient visit 15 minutes Rosana Alaniz Other [facility] Start: 11-24-2017 Radex ankle complete minimum 3 views Rosana Alaniz [facility] Start: 11-24-2017 Radex foot complete minimum 3 views [facility] Start: 10-23-2017 End: 10-24-2017 Emergency department patient visit ACHILLES CALLY [facility] Start: 08-16-2017 End: 08-16-2017 Office outpatient visit 25 minutes Rosana Alaniz Other [facility] Start: 05-26-2017 Evaluation and management of established outpatient in office or other outpatient facility [facility] Start: 05-26-2017 Antibody herpes smpl x type 1 [facility] Start: 05-26-2017 C-reactive protein h igh sensitivity [facility] Start: 05-26-2017 End: 05-26-2017 Office outpatient visit 25 minutes Rosana Alaniz Other [facility] Start: 05-26-2017 Sedimentation rate r bc automated [facility] Start: 03-29-2017 End: 03-29-2017 Office outpatient visit 15 minutes Rosana Alaniz Other [facility] Start: 02-22-2017 Antibody herpes smpl x type 1 [facility] Start: 02-22-2017 C-reactive protein [facility] Start: 02-22-2017 Comprehensive metabo lic panel [facility] Start: 02-22-2017 Culture bacterial bl ood aerobic w/id isolates [facility] Start: 02-22-2017 End: 02-22-2017 Office outpatient visit 25 minutes Rosana Alaniz Other [facility] Start: 02-22-2017 Sedimentation rate r bc automated [facility] Start: 02-22-2017 Evaluation and management of established outpatient in office or other outpatient facility [facility] Start: 02-01-2017 End: 02-01-2017 Office outpatient visit 15 minutes Rosana Alaniz Other [facility] Start: 02-01-2017 Polysom 6/>yrs sleep 4/> addl lona attnd [facility] Start: 02-01-2017 Polysom 6/>yrs sleep w/cpap 4/> [facility] Start: 01-06-2017 End: 01-06-2017 Office outpatient visit 15 minutes Rosana Alaniz Other [facility] Start: 12-09-2016 End: 12-09-2016 Office outpatient new 20 minutes Rosana Alaniz Other [facility] Start: 09-15-2016 Ambulatory CHANO FRANKLIN Facility: [facility] Procedures Date Procedure Procedure Detail Performing Clinician Start: 12-26-2023 ALL PROGESTERONE Blake Anmol DO Work Phone: Start: 08-26-2023 Follow-up visit Follow-up ELAYNE LUCIANO Start: 08-15-2023 Microscopic observation [Identifier] in Cervix by Cyto stain Blake Anmol DO Work Phone: Start: 06-15-2023 CT of head without contrast [...] Phone: Start: 02-23-2023 XR pre/post mri xray WATER SERVICE SUPERVISORToño Haile Work Phone: Start: 09-22-2022 Aerobic microbial culture PHYSICIAN NO F AMILY Start: 09-22-2022 Anaerobic microbial culture PHYSICIAN NO FAMILY Start: 09-22-2022 Investigation of transfusion reaction PHYSICIAN NO FAMILY Start: 05-24-2022 Microscopic observation [Identifier] in Cervix by Cyto stain Johana Hansen WATER SERVICE SUPERVISOR-JOCKEY ROOM CUSTODIAN Work Phone: Start: 12-27-2020 Blood gases any [...] blood pressure < 80 mm hg Rosana Katty JOCKEY ROOM CUSTODIAN Work Phone: Start: 07-10-2020 Most recent systolic blood pressure <130 mm hg Rosana Alaniz JOCKEY ROOM CUSTODIAN Work Phone: Start: 07-10-2020 Psychotherapy w/patient 30 minutes Li Short LISWS Work Phone: Start: 03-13-2020 Psychotherapy w/patient 30 minutes Li Short Work Phone: Start: 07-16-2019 Drug test prsmv read direct optical obs pr date Susan Em Work Phone: Start: 07-04-2019 Patient gave verbal [...] Mri spinal canal lumbar w/o contrast material Elanye Gordontrick Start: 01-03-2019 Urnls dip stick/tablet reagent auto [...] Radex ankle complete minimum 3 views JENNIFER [employer] Start: 10-15-2018 Radex foot complete minimum 3 views JENNIFER [employer] Start: 10-15-2018 Radex ankle complete minimum 3 views Kenzei Work Phone: Start: 10-15-2018 Radex foot complete minimum 3 views Kenzei Work Phone: Start: 06-15-2018 ANXIETY DISORDER NOS Rosana Alaniz Start: 06-15-2018 ATTENTION-DEFICIT HYPERACTIVITY DISORDER Rosana Alaniz Start: 06-15-2018 BIPOLAR DISORDER NOS Rosana Alaniz Start: 06-15-2018 Cholecystectomy Rosana Alaniz Start: 06-15-2018 Cholecystectomy Rosana Alaniz Start: 06-15-2018 ENDOMETRIOSIS Rosana Alaniz Start: 06-15-2018 FIBROMYALGIA Roasna Alaniz Start: 06-15-2018 HYPOTENSION Rosana Alaniz Start: [...] 08-16-2017 End: 08-16-2017 Iaadiadoo streptococcus group a Rosanaray Alaniz Start: 08-16-2017 End: 08-16-2017 Drug test [...] Cul bact xcpt urine blood/stool aerobic isol Rosanaray Alaniz Start: 05-26-2017 Medroxyprogesterone acetate Rosana Alaniz Start: 05-26-2017 Outside medication administered Rosana Alaniz Start: 05-26-2017 Pathology Rosana Alaniz Start: 05-26-2017 Therapeutic prophylactic/dx injection subq/im Rosana Alaniz Start: 03-29-2017 PHQ9 Administered Rosana Alanzi Start: 03-29-2017 SBIRT- Full Screen *POSITIVE* Referred [...] Td Vaccines (6 - Td or Tdap) [facility] Start: 03-08-2030 DTaP/Tdap/Td vaccine (2 - Td or Tdap) DTaP/Tdap/Td vaccine (2 - Td or Tdap) [employer] Work Phone: Start: 08-14-2028 Screening for malign ant neoplasm of cervix [facility] Start: 08-14-2026 Screening for malign ant neoplasm of cervix Pap Smear [facility] Start: 05-24-2025 Screening for malign ant neoplasm of cervix [facility] Start: 01-09-2025 Tobacco Screening Tobacco Screening [facility] Start: 10-24-2024 Adult BMI Screening Adult BMI Screen ing [facility] Start: 05-30-2024 Adult BMI Screening Adult BMI Screen ing [facility] Start: 05-30-2024 Tobacco Screening Tobacco Screening [facility] Start: 05-04-2024 Adult BMI Screening Adult BMI Screen ing [facility] Start: 05-04-2024 Tobacco Screening Tobacco Screening [facility] Start: 01-09-2024 Adult BMI Screening Adult BMI Screen ing [facility] Start: 12-17-2023 Tobacco Screening Tobacco Screening [facility] Start: 11-06-2023 Influenza vaccination [facility] Start: 08-15-2023 End: 08-15-2023 Patient encounter procedure 08/15/2023 1:00 PM EDT Procedure Visit [facility] [address] [place] [address] Blake Corea, [address] [facility] [address] [place] [address] [facility] Start: 07-05-2023 End: 07-05-2023 Patient encounter procedure 07/05/2023 1:00 PM EDT Office Visit [facility] [address] [place] [address] Renetta Elizalde PA [address] [facility], [address] [place] [address] [facility] Start: 06-17-2023 End: 06-17-2023 Admission to same day surgery center 06/17/2023 7:57 AM EDT - 06/17/2023 8:03 AM EDT Surgery [facility] - Pain Procedures [address] [place] [address] Anup Butler MD [address] [place] [address]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 blished Patient with Primitivo Lujan [employer]OC[employer] RO[employer] CUSTODIAN 01/04/2019 Fibromyalgia Medical Established Patient with Primitivo Lujan [employer]OCKEY ROOM CUSTODIAN 01/04/2019 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 Medical Established Patient with Primitivo Lujan [employer] CUSTODIAN 01/04/2019 Obesity due to excess calories Medical E stablished Patient with Primitivo Lujan [facility] 01/04/2019 Z30.42 - Encounter for surve illance of injectable contraceptive Medical Established Patient with Primitivo Lujan [facility] 01/04/2019 Z68.31 - Body mass index (BM I) 31.0-31.9 adult Medical Established Patient with Primitivo Lujan [facility] 01/04/2019 Assess migraine headache Medical Establi shed Patient with Rosana Alaniz [facility] 11/20/2018 Diabetes Risk Test Score was three score Medical Established Patient with Rosana Alaniz [facility] 11/20/2018 Obesity due to excess calories Medical E stablished Patient with Rosana Alaniz [facility] 11/20/2018 Z68.34 - Body mass index (BM I) 34.0-34.9 adult Medical Established Patient with Rosana Alaniz [facility] 11/20/2018 M25.572 - Pain in left ankle and joints of left foot Chart Update with Primitivo Lujan [facility] 10/25/2018 Assess open wound of the jacinto d, complicated Medical Established Patient with Rosana Alaniz [facility] 06/15/2018 Body mass index Medical Established Patient with Rosana Alaniz [facility] 06/15/2018 Assess dermatitis Chart Update with Rosana Alaniz [facility] 06/01/2018 Diagnosis Sciatica of left side- Primary Sciatica Closed fracture of right foot, initial encounter Findings Encounter Date 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 BH Established Patient with Uday Tyrone [facility] 02/20/2019 Fagerstrom Score was 0 02/20/2019 Medica l Established Patient with Rosana Alaniz [facility] 02/20/2019 Obesity due to excess calories Medical E stablished Patient with Rosana Alaniz [facility] 02/20/2019 PHQ-9: total score was 24 02/20/2019 Med ical Established Patient with Rosana Alaniz [facility] 02/20/2019 Z68.34 - Body mass index (BM I) 34.0-34.9 adult Medical Established Patient with Rosana Alaniz [facility] 02/20/2019 Bulging intervertebral disc Medical Esta blished Patient with Primitivo Lujan [facility] 01/04/2019 Fibromyalgia Medical Established Patient with Primitivo Lujan [facility] 01/04/2019 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 Medical Established Patient with Primitivo Lujan [facility] 01/04/2019 Obesity due to excess calories Medical E stablished Patient with Primitivo Lujan [facility] 01/04/2019 Z30.42 - Encounter for surve illance of injectable contraceptive Medical Established Patient with Ivy Le [facility] 01/04/2019 Z68.31 - Body mass index (BM I) 31.0-31.9 adult Medical Established Patient with Ivy Le [facility] 01/04/2019 Assess migraine headache Medical Establi shed Patient with Rosana Alaniz [facility] 11/20/2018 Diabetes Risk Test Score was three score Medical Established Patient with Rosana Alaniz [facility] 11/20/2018 Obesity due to excess calories Medical [facility] Z68.34 - Body mass index (BM I) 34.0-34.9 adult Medical Established Patient with Rosana Alaniz [facility] 11/20/2018 M25.572 - Pain in left ankle and joints of left foot Chart Update with [facility] 10/25/2018 Assess open wound of the jacinto d, complicated Medical Established Patient with Rosnaaray Alaniz [facility] 06/15/2018 Body mass index Medical Established Patient with Rosana Alaniz [facility] 06/15/2018 Assess dermatitis [facility] Findings Encounter Date Anxiety disorder NOS CPS Med Review with [facility] 03/08/2019 Obesity due to excess calories CPS Med R eview with [facility] 03/08/2019 Screening for diabetes mellitus CPS Med Review with [facility] 03/08/2019 Z68.32 - Body mass index (BM I) 32.0-32.9 adult CPS Med Review with Rosana [facility] 03/08/2019 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 BH Established Patient with Uday Hansen [facility] 02/20/2019 Fagerstrom Score was 0 02/20/2019 Medica l Established Patient with Rosana Alaniz [facility] 02/20/2019 Obesity due to excess calories Medical E stablished Patient with Rosana Alaniz [facility] 02/20/2019 PHQ-9: total score was 24 02/20/2019 Med ical Established Patient with Rosana Alaniz [facility] 02/20/2019 Z68.34 - Body mass index (BM I) 34.0-34.9 adult Medical Established Patient with Rosana Alaniz [facility] 02/20/2019 Bulging intervertebral disc Medical Esta blished Patient with Ivy Le [facility] 01/04/2019 Fibromyalgia Medical Established Patient with Primitivo Lujan [facility] 01/04/2019 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 Medical Established Patient with Primitivo Lujan [facility] 01/04/2019 Obesity due to excess calories Medical E stablished Patient with Primitivo Lujan [facility] 01/04/2019 Z30.42 - Encounter for surve illance of injectable contraceptive Medical Established Patient with Primitivo Lujan [facility] 01/04/2019 Z68.31 - Body mass index (BM I) 31.0-31.9 adult Medical Established Patient with Primitivo Lujan [facility] 01/04/2019 Assess migraine headache Medical Establi shed Patient with Rosana Alaniz [facility] 11/20/2018 Diabetes Risk Test Score was three score Medical Established Patient with Rosana Alaniz [facility] 11/20/2018 Obesity due to excess calories Medical E stablished Patient with Rosana Alaniz [facility] 11/20/2018 Z68.34 - Body mass index (BM I) 34.0-34.9 adult Medical Established Patient with Rosana Alaniz [facility] 11/20/2018 M25.572 - Pain in left ankle and joints of left foot Chart Update with Primitivo Lujan [facility] 10/25/2018 Assess open wound of the jacinto d, complicated Medical Established Patient with Rosana Alaniz [facility] 06/15/2018 Body mass index Medical Established Patient with Rosana Alaniz [facility] 06/15/2018 Assess dermatitis Chart Update with Rosana Alaniz [facility] 06/01/2018 Findings Encounter Date Obesity due to excess calories Telemedicine with Rosana Alaniz [facility] 07/04/2019 Z68.31 - Body mass index (BM I) 31.0-31.9, adult Telemedicine with Rosana Alaniz [facility] 07/04/2019 Anxiety disorder NOS CPS Med Review with Rosana gomez [facility] 03/08/2019 Obesity due to excess calories CPS Med Review wi th Rosana Katty [facility] 03/08/2019 Screening for diabetes mellitus CPS Med Review w ith Rosanaray Alaniz [facility] 03/08/2019 Z68.32 - Body mass index (BM I) 32.0-32.9 adult CPS Med Review with Rosana Katty [facility] 03/08/2019 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 BH Established Patient with Uday Hansen [facility] 02/20/2019 Fagerstrom Score was 0 02/20/2019 Medica l Established Patient with Rosana Alaniz [facility] 02/20/2019 Obesity due to excess calories Medical E stablished Patient with Rosana Alaniz [facility] 02/20/2019 PHQ-9: total score was 24 02/20/2019 Med ical Established Patient with Rosana Alaniz [facility] 02/20/2019 Z68.34 - Body mass index (BM I) 34.0-34.9 adult Medical Established Patient with Rosana Alaniz CNP 02/20/2019 Bulging intervertebral disc Medical Esta blished Patient with Primitivo Lujan [facility] 01/04/2019 Fibromyalgia Medical Established Patient with Primitivo Lujan [facility] 01/04/2019 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 Medical Established Patient with Primitivo Lujan [facility] 01/04/2019 Obesity due to excess calories Medical E stablished Patient with Primitivo Lujan [facility] 01/04/2019 Z30.42 - Encounter for surve illance of injectable contraceptive Medical Established Patient with Primitivo Lujan [facility] 01/04/2019 Z68.31 - Body mass index (BM I) 31.0-31.9 adult Medical Established Patient with Primitivo Lujan [facility] 01/04/2019 Assess migraine headache Medical Establi shed Patient with Rosana Alaniz [facility] 11/20/2018 Diabetes Risk Test Score was three score Medical Established Patient with Rosana Alaniz [facility] 11/20/2018 Obesity due to excess calories Medical E stablished Patient with Rosana Alaniz [facility] 11/20/2018 Z68.34 - Body mass index (BM I) 34.0-34.9 adult Medical Established Patient with Rosana Alaniz [facility] 11/20/2018 M25.572 - Pain in left ankle and joints of left foot Chart Update with Primitivo Lujan [facility] 10/25/2018 Assess open wound of the jacinto d, complicated Medical Established Patient with Rosana Alaniz [facility] 06/15/2018 Body mass index Medical Established Patient with Rosana Alaniz [facility] 06/15/2018 Assess dermatitis Chart Update with Rosana Alaniz [facility] 06/01/2018 Findings Encounter Date Moderate recurrent major depression T [facility] with Li [facility]ARTE 03/13/2020 Body mass index Telemedicine Establi sted Patient with Rosana Katty [facility] 03/13/2020 Obesity due to excess calories Telemedic ine Establisted Patient with Rosanaray Alaniz CNP 03/13/2020 Obesity due to excess calories Telemedicine with Rosana Katty [facility] 07/04/2019 Z68.31 - Body mass index (BM I) 31.0-31.9, adult Telemedicine with Rosana Alaniz [facility] 07/04/2019 Anxiety disorder NOS CPS Med Review with Rosana gomez [facility] 03/08/2019 Obesity due to excess calories CPS Med Review wi th Rosana Alaniz [facility] 03/08/2019 Screening for diabetes mellitus CPS Med Review w ith Rosana Alaniz [facility] 03/08/2019 Z68.32 - Body mass index (BM I) 32.0-32.9 adult CPS Med Review with Rosana Alaniz [facility] 03/08/2019 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 BH Established Patient with Uday Hansen [facility] 02/20/2019 Fagerstrom Score was 0 02/20/2019 Medica l Established Patient with Rosana Alaniz [facility] 02/20/2019 Obesity due to excess calories Medical E stablished Patient with Rosana Alaniz [facility] 02/20/2019 PHQ-9: total score was 24 02/20/2019 Med ical Established Patient with Rosana Alaniz [facility] 02/20/2019 Z68.34 - Body mass index (BM I) 34.0-34.9 adult Medical Established Patient with Rosana Alaniz [facility] 02/20/2019 Bulging intervertebral disc Medical Esta blished Patient with [facility] 01/04/2019 Fibromyalgia Medical Established Patient with [facility] 01/04/2019 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 Medical Established Patient with [facility] 01/04/2019 Obesity due to excess calories Medical E stablished Patient with [facility] 01/04/2019 Z30.42 - Encounter for surve illance of injectable contraceptive Medical Established Patient with [facility] 01/04/2019 Z68.31 - Body mass index (BM I) 31.0-31.9 adult Medical Established Patient with [facility]ivo [facility] 01/04/2019 Assess migraine headache Medical Establi shed Patient with Rosana Alaniz [facility] 11/20/2018 Diabetes Risk Test Score was three score Medical Established Patient with Rosana Alaniz [facility] 11/20/2018 Obesity due to excess calories Medical E stablished Patient with Rosana Alaniz [facility] 11/20/2018 Z68.34 - Body mass index (BM I) 34.0-34.9 adult Medical Established Patient with Rosana Alaniz [facility] 11/20/2018 M25.572 - Pain in left ankle and joints of left foot Chart Update with Primitivo Lujan [facility] 10/25/2018 Assess open wound of the jacinto d, complicated Medical Established Patient with Rosana Alaniz [facility] 06/15/2018 Body mass index Medical Established Patient with Rosana Alaniz [facility] 06/15/2018 Assess dermatitis Chart Update with Rosanaray Alaniz [facility] 06/01/2018 Diagnosis Herniated intervertebral disc of lumbar spine- Primary Neuropathy Mononeuritis of unspecified site Diagnosis Accidental overdose of heroin, initial encounter ([facility])- Primary Findings Encounter Date Assess open wound of the jacinto d, complicated Medical Established Patient with Rosana Alaniz [facility] 06/15/2018 Body mass index Medical Established Patient with Rosana Alaniz [facility] 06/15/2018 Assess dermatitis Chart Update with Rosanaray Alaniz [facility] 06/01/2018 Diagnosis Pain of left calf Findings Encounter Date Assess migraine headache Medical Establi shed Patient with Rosana Alaniz [facility] 11/20/2018 Diabetes Risk Test Score was three score Medical Established Patient with Rosana Alaniz [facility] 11/20/2018 Obesity due to excess calories Medical E stablished Patient with Rosana Alaniz [facility] 11/20/2018 Z68.34 - Body mass index (BM I) 34.0-34.9 adult Medical Established Patient with Rosana Alaniz [facility] 11/20/2018 M25.572 - Pain in left ankle and joints of left foot Chart Update with Primitivo Lujan [facility] 10/25/2018 Assess open wound of the jacinto d, complicated Medical Established Patient with Rosana Alaniz [facility] 06/15/2018 Body mass index Medical Established Patient with Rosana Alaniz [facility] 06/15/2018 Assess dermatitis Chart Update with Rosanaray Alaniz [facility] 06/01/2018 Instructions Instructions not supported for [...] VENOUS LEFT Misbah Oreilly, PETER [address] [place] [address] Reason Would like to b [facility] seen at [facility]-- psychaitry for ADD treatment, matthew like to see ana martinez if available 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9) Diagnosis 2 Fibromyalgia (M79.7) Referral Organization [facility] [place] Referring Provider First Name Berenice Referring Provider Last Name Rohrbacher Referring Provider Specialty Nurse Pract itioner Referred Organization [facility] Referred Address [address],[place],[address] Referred Provider Specialty Rheumatology Referral Priority Routine General Notes Katina Winter 03:28:37 PM >received today, notes locked, ins attached, referral faxed Clinical Notes Dr. Colindres P: [id number] F: [id number] Reason evaluate Diagnosis 1 Hepatitis C virus in fection without hepatic coma, unspecified chronicity (B19.20) Referral Organization [facility] [place] Referring Provider First Name Berenice Referring Provider Last Name Rohrbacher Referring Provider Specialty Nurse Pract itioner Referred Organization [facility] Gastroenterolo gy Referred Provider Agus Madera Referred Address [address],[address] Referred Provider Specialty Gastroentero logy Referral Priority Routine General Notes Katina Winter 03:25:06 PM >received today, sent P2P Reason would like referral to pain management in [place] Diagnosis 1 Other chronic pain ( G89.29) Diagnosis 2 Lumbago with sciatic a, left side (M54.42) Diagnosis 3 History of back surg maria luz (Z98.890) Diagnosis 4 Cervical back pain w ith evidence of disc disease (M50.90) Referral Organization [facility] [place] Referring Provider First Name Berenice Referring Provider Last Name Leslyrbacher Referring Provider Specialty Nurse Pract itioner Referred Organization [facility] Referred Address [address] [place], [place],[address] Referred Provider Specialty Pain Medicin e Referral Priority Routine Specialty Diagnoses / Procedures Referred By Ligia bruno Referred To Contact Diagnoses Lumbar radiculopathy Spinal stenosis of lumbar region with neurogenic claudication Procedures Case request operating room: INJECTION BLOCK EPIDURAL STEROID LUMBAR/SACRAL Right L 5,1 NR Jaswant Hussein, PAFelipe [address] [place] [address] Referral ID Status Reason Start Date Expiration Date V isits Requested Visits Authorized [id number] Pending Review 05/04/2023 05/03/2024 1 1 Specialty Diagnoses / Procedures Referred By Ligia bruno Referred To Contact Diagnoses Lumbar radiculopathy Procedures Case request operating room: INJECTION BLOCK EPIDURAL CAUDAL STEROID Renetta Elizalde PA [address] [place] [address] Referral ID Status Reason Start Date Expiration Date V isits Requested Visits Authorized [id number] Pending Review 05/31/2023 05/30/2024 1 1 Chief Complaint and Reason for Visit Chief Complaint S21.002D B19.20 Chief Complaint B19.20 z98.1 g89.29 m48.062 m54.16 Chief Complaint Elevated Sugar Amb Documentation Amb Documentation Spider Bite Chief Complaint Elevated Sugar Amb Documentation Amb Documentation Spider Bite ill Reason for Visit Abscess Cellulitis Chief Complaint TB ER , boil Reason for Visit Abscess Cellulitis Vitamin B 12 deficiency Additional Source Comments INFORMATION SOURCE (unrecogn ized section and content) DATE CREATED AUTHOR 08/25/2017 [facility] DATE CREATED AUTHOR AUTHOR'S ORGANIZ ATION 08/31/2017 [facility] DATE CREATED AUTHOR AUTHOR'S ORGANIZ ATION 10/25/2017 [facility] DATE CREATED AUTHOR AUTHOR'S ORGANIZ ATION 01/07/2018 [facility] DATE CREATED AUTHOR AUTHOR'S ORGANIZ ATION 01/29/2019 [facility] DATE CREATED AUTHOR AUTHOR'S ORGANIZ ATION 07/11/2020 [facility] DATE CREATED AUTHOR AUTHOR'S ORGANIZ ATION 06/07/2022 [facility] DATE CREATED AUTHOR AUTHOR'S ORGANIZ ATION 09/08/2022 [facility] DATE CREATED AUTHOR AUTHOR'S ORGANIZ ATION 06/27/2023 [facility] DATE CREATED AUTHOR AUTHOR'S ORGANIZ ATION 08/28/[address] [facility] DATE CREATED AUTHOR AUTHOR'S ORGANIZ ATION 08/30/2023 [facility] DATE CREATED AUTHOR AUTHOR'S ORGANIZ ATION 09/23/2023 [facility] DATE CREATED AUTHOR AUTHOR'S ORGANIZ ATION 01/12/2024 [facility] Reason for Visit (unrecogniz ed section and [...] a car in the parking lot @ [facility]. Narcan 7 mg IN per EMS. Status Reason Specialty Diagnoses / Procedures Referred By Contact Referred To Contact Open [facility] Lab Diagnoses Calf swelling Calf pain Procedures [facility] EXTREM VENOUS,UNI OR LTD Misbah Oreilly, DPM [address] [place] [address] [facility] [address] [place] [address] Reason Comments Other , med clear for halfway. Reason Onset Date Comments Med Refill 04/27/2023 Reason Comments Back Pain Reason Comments Med Refill Reason Comments Back Pain Neck Pain Evaluations & Outcomes (unre cognized section and [...] Member Role Status Dates Berenice Haile APRN VEGETABLE GRADER-Sameer Attending Provider Act valery Team Status: Active Member Role Status Dates Berenice Haile APRN VEGETABLE GRADER-C Primary Care Provider Active Team Status: Inactive Member Role Status Dates GENOVEVA John Attending Provider Act valery PHYSICIAN NO FAMILY Primary Care Provider Active Team Status: Inactive Member Role Status Dates Berenice Haile APRN VEGETABLE GRADER-Sameer Primary Care Provider Active Ladarius Pitts APRN Attending Provider Active Team Status: Active Member Role Status Dates Lola Montgomery APRN VEGETABLE GRADER-C Primary Care Provider Active Team Status: Inactive Member Role Status Dates EVANGELINA Israel Attending Provider Active Lola Montgomery APRN VEGETABLE GRADER-C Primary Care Provider Active Upsetting Machine Operator Relationship Specialty Start Date End Date Berenice Haile APRN-NP [address] [facility] [address] PCP - General Nurse Practitioner 01/17/23 Upsetting Machine Operator Relationship Specialty Start Date End Date Berenice Haile APRN-NP [address] [facility] [address] PCP - General Nurse Practitioner 01/17/23 Upsetting Machine Operator Relationship Specialty Start Date End Date Berenice Haile NP [address] [place] [address] [place] [address] PCP - General Family Medicine 04/11/23 Upsetting Machine Operator Relationship Specialty Start Date End Date Berenice Haile NP [address] [place] [address] [place] [address] PCP - General Family Medicine 04/11/23 Upsetting Machine Operator Relationship Specialty Start Date End Date Berenice Haile APRN-NP [address] [facility] [place] [address] PCP - General Nurse Practitioner 01/17/23 Upsetting Machine Operator Relationship Specialty Start Date End Date Berenice Haile APRN-NP [address] [facility] [address] PCP - General Nurse Practitioner 01/17/23 Upsetting Machine Operator Relationship Specialty Start Date End Date Berenice Haile APRN-NP [address] [facility] [place] [address] PCP - General Nurse Practitioner 01/17/23 Upsetting Machine Operator Relationship Specialty Start Date End Date Berenice Haile APRN-NP [address] [facility] [place] [address] PCP - General Nurse Practitioner 01/17/23 Team Status: Inactive Member Role Status Dates Berenice Haile APRN VEGETABLE GRADER-C Attending Provider Act valery Start: March 21, 2023 End: March 21, 2023 Team Status: Active Member Role Status Dates Lola Montgomery APRN VEGETABLE GRADER-C Primary Care Provider Active Start: April 19, 2023 Jaimie Durand Attending Provider Active Start: April 19, 2023 Team Status: Active Member Role Status Dates Berenice Haile APRN VEGETABLE GRADER-C Primary Care Provider Active Start: April 282023 Jaimie Durand Attending Provider Active Start: April 28, 2023 Team Status: Inactive Member Role Status Dates Berenice Haile APRN VEGETABLE GRADER-C Primary Care Provider, Attending Provider Active Start: May 26, 2023 End: May 26, 2023 Upsetting Machine Operator Relationship Specialty Start Date End Date Berenice Haile APRN-VEGETABLE GRADER [address] [place] [facility] [place] [address] PCP - General Nurse Practitioner 01/17/23 Upsetting Machine Operator Relationship Specialty Start Date End Date Berenice Haile APRN-VEGETABLE GRADER [address] [place] [facility] [place] [address] PCP - General Nurse Practitioner 01/17/23 05/31/23 Team Status: Active Member Role Status Dates Lola Montgomery APRN VEGETABLE GRADER-C Primary Care Provider Active Start: April 19, 2023 Jaimie Durand LPN Attending Provider Active S tart: April 19, 2023 Team Status: Active Member Role Status Dates Berenice Haile APRN VEGETABLE GRADER-C Primary Care Provider Active Start: April 282023 Jaimie Durand LPN Attending Provider Active S tart: April 28, 2023 Team Status: Inactive Member Role Status Dates Berenice Haile APRN VEGETABLE GRADER-C Primary Care Provider Active Start: June 15, 2023 End: June 15, 2023 Nazario Torres DO Emergency Provider Active Start: June 15, 2023 End: June 15, 2023 Team Status: Active Member Role Status Dates Berenice Haile APRN VEGETABLE GRADER-C Primary Care Provider Active Start: August 15, 2023 Blake Corea DO Attending Provider Active Start : August 15, 2023 Team Status: Inactive Member Role Status Dates Berenice Haile APRN VEGETABLE GRADER-C Primary Care Provider, Attending Provider Active Start: October 06, 2023 End: October 06, 2023 Upsetting Machine Operator Relationship Specialty Start Date End Date Berenice Haile NP [address] [place] [address] PCP - General Family Medicine 04/11/23 Savana Espinosa PCP - FELIPE Fan [facility] 09/05/23 Upsetting Machine Operator Relationship Specialty Start Date End Date Tere Perez APRN-[employer]OCKEY ROOM CUSTODIAN PCP - General Nurse Practitioner 06/01/23 Goals (unrecognized section and content) Goals may [...] BE BASED ON THE PRIMARY CLINICAL RECORDS. [employer] provides no warranty or guarantee of the accuracy or completeness of information in this document.
--- NOTE | 2024-01-25 02:04 | ED_ITS ---
HPI HPI - General Adult General Chief complaint: Headache Stated complaint: HEADACHE Time Seen by Provider: 01/25/24 02:00 Source: patient Mode of arrival: walk-in Limitations: no limitations History of Present Illness HPI narrative: patient presents complaining of migraine headache. left forehead behind left eye. Has photosensitivity . NARVAEZ same as past migraines. Has nausea. No numbness o r extremity weakness or numbness Related Data Home Medications ?Medication ?Instructions ?Recorded ?Confirmed tizanidine 4 mg capsule (Zanaflex) 4 mg PO BID PRN muscle spasticity 11/02/22 01/25/24 calcium 600 mg (as 1 tab PO Q12H 11/09/22 01/25/24 carbonate)-vitamin D3 10 mcg (400 unit) tablet cyanocobalamin (vitamin B-12) 1,000 mcg subcut .monthly 11/09/22 01/25/24 1,000 mcg/mL injection solution eletriptan 40 mg tablet 40 mg PO .q12 H PRN migraine 11/09/22 01/25/24 headache multivitamin with folic acid 400 1 tab PO DAILY 11/09/22 01/25/24 mcg tablet (Daily-Raegan (with folic acid)) pantoprazole 40 mg tablet,delayed 40 mg PO .morning 11/09/22 01/25/24 release vitamin with calcium 1 tab PO .morning 11/09/22 01/25/24 no.72-iron 27 mg-folic acid 1 mg tablet (M-Myron Plus) topiramate 200 mg tablet 200 mg PO Q12H 11/09/22 01/25/24 valacyclovir 1 gram tablet 1,000 mg PO Q12H 11/09/22 01/25/24 acetaminophen 325 mg tablet mg 01/25/24 amitriptyline 10 mg tablet mg 01/25/24 cholecalciferol (vitamin D3) 25 01/25/24 mcg (1,000 unit) capsule cholecalciferol (vitamin D3) 25 01/25/24 mcg (1,000 unit) tablet (Vitamin D3) Previous Rx's ?Medication ?Instructions ?Recorded ibuprofen 800 mg tablet 800 mg PO Q8H PRN pain 14 days #40 12/03/22 tabs ondansetron 4 mg disintegrating 4 mg PO Q8H 5 days #15 tabs 12/03/22 tablet valacyclovir 1 gram tablet 1,000 mg PO DAILY 30 days #30 tabs 12/03/22 (Valtrex) Allergies Allergy/AdvReac Type Severity Reaction Status Date / Time amoxicillin Allergy Severe Unknown Verified 01/25/24 00:35 [place] ([place] [facility] Allergy Severe Flushing Verified 01/25/24 00:35 Penicillins Allergy Unknown Verified 01/25/24 00:35 NSAIDS (Non-Steroidal AdvReac Severe Unknown Verified 01/25/24 00:35 Anti-Inflamma Opioid HPI Opioid Management Most Recent Opioid Data: Last Pain Scale 6 12/03/22 10:13 12/03/22 Ur Phencyclidine Scrn Negative (NEGATIVE) 12/03/22 12:10 11/06 11/27 Review of Systems ROS Status of ROS 10 or more systems reviewed and unremark able except as noted in history and below [facility] Medical History (Updated 01/25/24 @ 05:03 by Nirav Bazan MD) Drug overdose ?T50.901A - Poisoning by unspecified drugs, medicaments and biological substances, accidental (unintentional), initial encounter (ICD-10) Hiatal hernia ?K44.9 - Diaphragmatic hernia without obstruction or gangrene (ICD-10) S/P extracorporeal shock wave therapy ?Z98.890 - Other specified postprocedural states (ICD-10) Multiple sclerosis ?G35 - Multiple sclerosis (ICD-10) Migraine ?G43.909 - Migraine, unspecified, not intractable, without status migrainosus (ICD-10) Attention deficit hyperactivity disorder ?F90.9 - Attention-deficit hyperactivity disorder, unspecified type (ICD-10) ADD (attention deficit disorder) ?F98.8 - Other specified behavioral and emotional disorders with onset usually occurring in childhood and adolescence (ICD-10) Kidney stones ?N20.0 - Calculus of kidney (ICD-10) GERD (gastroesophageal reflux disease) ?K21.9 - Gastro-esophageal reflux disease without esophagitis (ICD-10) Sleep apnea ?G47.30 - Sleep apnea, unspecified (ICD-10) Insomnia ?G47.00 - Insomnia, unspecified (ICD-10) PTSD (post-traumatic stress disorder) ?F43.10 - Post-traumatic stress disorder, unspecified (ICD-10) Panic attacks ?F41.0 - Panic disorder [episodic paroxysmal anxiety] (ICD-10) Anxiety ?F41.9 - Anxiety disorder, unspecified (ICD-10) Rheumatoid arthritis ?M06.9 - Rheumatoid arthritis, unspecified (ICD-10) Lupus ?M32.9 - Systemic lupus erythematosus, unspecified (ICD-10) Anemia ?D64.9 - Anemia, unspecified (ICD-10) Arthritis ?M19.90 - Unspecified osteoarthritis, unspecified site (ICD-10) Back pain ?M54.9 - Dorsalgia, unspecified (ICD-10) DDD (degenerative disc disease) Osteoarthritis ?M19.90 - Unspecified osteoarthritis, unspecified site (ICD-10) Neck pain ?M54.2 - Cervicalgia (ICD-10) Fibromyalgia ?M79.7 - Fibromyalgia (ICD-10) Fusion of spine ?M43.20 - Fusion of spine, site unspecified (ICD-10) Surgical History (Updated 11/09/22 @ 11:04 by Trixie Duvall) H/O ureteroscopy ?Z98.890 - Other specified postprocedural states (ICD-10) H/O bilateral breast reduction surgery ?Z98.890 - Other specified postprocedural states (ICD-10) History of cholecystectomy ?Z90.49 - Acquired absence of other specified parts of digestive tract (ICD- 10) History of esophagogastroduodenoscopy (EGD) ?Z98.890 - Other specified postprocedural states (ICD-10) S/P epidural steroid injection ?Z92.241 - Personal history of systemic steroid therapy (ICD-10) History of spinal surgery ?Z98.890 - Other specified postprocedural states (ICD-10) History of gastric bypass ?Z98.84 - Bariatric surgery status (ICD-10) Family History (Updated 11/09/22 @ 11:21 by Trixie Duvall) Other Drug overdose Family history of MS (multiple sclerosis) Family history of diabetes mellitus Family history of emphysema Family history of hypertension Family history of myocardial infarction Family history of stroke Social History (Updated 11/09/22 @ 10:52 by Trixie Duvall) Within the past year, how often did you have a drink containing alcohol: never Score interpretation: A score less than 3 is consistent with normal alcohol consumption. Do you use any of these nicotine containing products: vaping products Nicotine containing products detail: mercy Non-prescribed substance use: denies use Previous occupational history: disabled Highest level of school completed/degree received: high school graduate Little interest or pleasure in doing things: not at all Feeling down, depressed, or hopeless: not at all Exam Constitutional Vital Signs, click to edit/add: Last Vital Signs Temp 97.9 F 01/25/24 00:31 Pulse 89 01/25/24 00:31 Resp 14 01/25/24 00:31 BP 134/87 01/25/24 00:31 Pulse Ox 100 01/25/24 00:31 Common normals: no apparent distress, average body habitus, oriented x3, no l imitations, healthy appearing, alert and well nourished HENMT Common normals: normocephalic and head/scalp atraumatic Eye Common normals: PERRL and EOMs intact bilaterally Other: photosensitive Neck & C-Spine Common normals: full ROM and supple Respiratory Common normals: normal respiratory effort, no retractions, no use of accessory muscles and clear to auscultation bilaterally Cardio Common normals: regular rate, regular rhythm, S1 normal heart sound and S2 normal heart sound Extremity Common normals: normal to inspection and full ROM Neuro Common normals: oriented x3, CN's II-XII intact bilaterally, moves all extremities and no focal motor deficits Psych Appearance: grossly normal Course Vital Signs Vital signs: Vital Signs Temperature 97.9 F 01/25/24 00:31 Pulse Rate 89 01/25/24 00:31 Respiratory Rate 14 01/25/24 00:31 Blood Pressure 134/87 01/25/24 00:31 Pulse Oximetry 100 01/25/24 00:31 Temperature 97.9 F 01/25/24 00:31 Pulse Rate 89 01/25/24 00:31 Respiratory Rate 14 01/25/24 00:31 Blood Pressure 134/87 01/25/24 00:31 Pulse Oximetry 100 01/25/24 00:31 Medical Decision Making MDM Narrative Medical decision making narrative: patient presents complaining of her migraine headache. left forehead pain with nausea and photophobia. Treated in the ED with cocktail of medication including reglan, phenergan, benadryl, magnesium and solumedrol . She is now feeling better and feels she can go home. Discharged and advised to follow up with her doctor Discharge Plan Discharge Chief Complaint: Headache Clinical Impression: Migraine Patient Disposition: Home, Self-Care Prescriptions / Home Meds: No Action calcium carbonate-vitamin D3 600 mg-10 mcg (400 unit) tablet 1 tab PO Q12H cyanocobalamin (vitamin B-12) 1,000 mcg/mL solution 1,000 mcg subcut .monthly eletriptan 40 mg tablet 40 mg PO .q12 H PRN (Reason: migraine headache) multivitamin with folic acid [Daily-Raegan (with folic acid)] 400 mcg tablet 1 tab PO DAILY pantoprazole 40 mg tablet,delayed release (DR/EC) 40 mg PO .morning M-Myron Plus 27 mg iron- 1 mg tablet 1 tab PO .morning topiramate 200 mg tablet 200 mg PO Q12H valacyclovir 1 gram tablet 1,000 mg PO Q12H valacyclovir [Valtrex] 1 gram tablet 1,000 mg PO DAILY 30 Days Qty: 30 0RF Rx Instructions: 3 refills ibuprofen 800 mg tablet 800 mg PO Q8H PRN (Reason: pain) 14 Days Qty: 40 0RF ondansetron 4 mg tablet,disintegrating 4 mg PO Q8H 5 Days Qty: 15 0RF tizanidine [Zanaflex] 4 mg capsule 4 mg PO BID PRN (Reason: muscle spasticity) acetaminophen 325 mg tablet amitriptyline 10 mg tablet cholecalciferol (vitamin D3) 25 mcg (1,000 unit) capsule cholecalciferol (vitamin D3) [Vitamin D3] 25 mcg (1,000 unit) tablet Print Language: Cymraes Instructions: Migraine Headache (ED) Additional Instructions: follow up with your doctor in the next couple of days for recheck Referrals: Tere Perez NP [Primary Care Provider] - 1 week
[2024-01-25] MEDS: METOCLOPRAMIDE HCL 10 MG/2 ML VIAL IVP (02:22)
[2024-01-25] MEDS: METHYLPREDNISOLONE SOD SUCC PF 125 MG/2 ML VIAL IVP (02:22)
[2024-01-25] MEDS: DIPHENHYDRAMINE HCL 50 MG/ML VIAL IV (02:22)
[2024-01-25] MEDS: MAGNESIUM SULFATE IN WATER 2 GM/50 ML PREMIX IV (03:36)
[2024-01-25] MEDS: PROMETHAZINE HCL 25 MG in 0.9 % SODIUM CHLORIDE 50 ML 204 MG IV (03:37)
== END 2024-01-25 05:51 | disposition home or self-care (01) ==
PROVIDERS: Emergency Provider Internal Medicine; PCP Nurse Practitioner
DX: G43.909 Migraine, unspecified, not intractable, without status migrainosus (principal); Z90.49 Acquired absence of other specified parts of digestive tract; Z98.84 Bariatric surgery status; F17.290 Nicotine dependence, other tobacco product, uncomplicated
CPT/HCPCS: 96365; 96375; 99284; J1200; J2250; J2765; J2919; J3475

== ENCOUNTER 2024-02-20 15:08 | Outpatient (OUT) | payer MEDICAID, SELFPAY ==
[2024-02-21 08:12] LABS: Progesterone 4.1 ng/mL (.)
== END 2024-02-20 15:09 | disposition home or self-care (01) ==
LOC: LAB 15:09
PROVIDERS: PCP Nurse Practitioner; Visit Provider Obstetrics & Gynecology
DX: N97.9 Female infertility, unspecified (principal); E28.2 Polycystic ovarian syndrome
CPT/HCPCS: 36415; 84144

== ENCOUNTER 2024-03-13 12:12 | Day surgery (SDC) | payer MEDICAID, SELFPAY ==
--- NOTE | 2024-03-13 12:29 | FL_ITS ---
The [address] [address] Patient Name: TYRONE WEST MRN: [id number] date: 1985 Sex: F Assigned Patient Location: [place] Current Patient Location: [place] Accession/Order Number: [id number] Exam Date: 03/13/2024 13:00 Report Date: 03/13/2024 14:24 At the request of: CHITO VICTORIA Procedure: [place] Hysterosal cath placement EXAMINATION: [place] Hysterosal cath placement HISTORY: fallopian tube disorder N83.9 COMPARISON: No relevant comparison available. TECHNIQUE: Informed consent was obtained. A sterile vaginal speculum was introduced and, following cleansing of the cervix, a balloon-tipped catheter was inserted into the endometrial cavity. The procedure was then completed in the usual manner with water-soluble contrast. Standard level fluoroscopic mode of operation utilized. FINDINGS: FALLOPIAN TUBES: Patent fallopian tubes bilaterally. ENDOMETRIAL CAVITY: No scarring, filling defects, or dilatation. Rapid spillage of left fallopian tube; minimal delay in spillage of right fallopian tube. OTHER: Negative. FL/FL Hysterosal cath placement IMPRESSION: 1. Normal appearance of the endometrial cavity and patient fallopian tubes bilaterally. Electronically authenticated by: DELORIS REGALADO Date: 03/13/2024 14:24
[2024-03-13 12:50] LABS: HCG Quantitative <1 mIU/mL
[2024-03-13 13:10] VITALS: BMI 23.7
--- NOTE | 2024-03-13 13:48 | PC.NURSE ---
Procedure explained to patient. Pt very nervous. Stated LMP was 1-2-25. 1321 Procedure complete, tolerated well. 1330 Pt ambulated to bathroom, gait steady. Discharge instructions given to patient. Verbalizes understanding of instructions. Ambulated to lobby, denies complaints.
== END 2024-03-13 13:48 ==
LOC: FL 12:13
PROVIDERS: Radiology Diagnostic Radiology; PCP Nurse Practitioner; Visit Provider Obstetrics & Gynecology
DX: N83.9 Noninflammatory disorder of ovary, fallopian tube and broad ligament, unspecified (principal)
CPT/HCPCS: 36415; 58340; 84702; Q9966

== ENCOUNTER 2024-03-26 12:56 | Outpatient (OUT) | payer MEDICAID, SELFPAY ==
[2024-03-27 04:07] LABS: Progesterone 10.9 ng/mL (.)
== END 2024-03-26 12:57 | disposition home or self-care (01) ==
LOC: LAB 12:57
PROVIDERS: PCP Nurse Practitioner; Visit Provider Obstetrics & Gynecology
DX: N97.0 Female infertility associated with anovulation (principal)
CPT/HCPCS: 36415; 84144

== ENCOUNTER 2024-04-25 17:00 | Outpatient (OUT) | payer MEDICAID, SELFPAY | END 2024-04-25 17:01 | disposition home or self-care (01) | LOC: LAB 04-26 08:42 | PROVIDERS: PCP Nurse Practitioner; Visit Provider Obstetrics & Gynecology | DX: N97.0 Female infertility associated with anovulation (principal) | CPT/HCPCS: 36415; 84144 ==

== ENCOUNTER 2024-05-26 12:51 | Outpatient (OUT) | payer MEDICAID, SELFPAY ==
--- OUTSIDE RECORDS SUMMARY | 2024-05-26 12:57 | XMS_ITS | CCD ---
Author Organization [facility] Care Team Providers Care Binding Cutter Name Role Phone CHANO FRANKLIN Unavailable Unavailable Katty, Rosana Unavailable Unavailable karthik Unavailable Unavailable Stiven, Allsion Unavailable Unavailable Sprout Unavailable Unavailable Unavailable Unavailable Unavailable Bahn Unavailable Unavailable Scott, Isidro Unavailable Unavailable Katty, Rosana Unavailable Unavailable BEBOS, ACHILLES Unavailable Unavailable Katty, Rosana Unavailable Unavailable Dontae Anahi Unavailable Unavailable RATNASAMY, OZZIE A J [...] Provider Katty AREVALO, Rosana Primary Care Provider [phone] KATTY, ROSANA Primary Care Unavailable KATTY, ROSANA Referring Unavailable ALEYDA GOMEZ Admitting Unavailable ALEYDA GOMEZ Attending Unavailable Katty MOBILE CRANE OPERATOR - IRINA Rosana M Primary Care Provider Agus Madera Unavailable [phone] Liz Billingsley Unavailable ROSALIA Killian, DR SUTTON Admitting Unavailryne LINDSEY ., DR SUTTON Attending Unavailabl e AICHHOLZ, TONG CARRIER TERE Primary Care Unavailable DR LESLEY HAWKINS Consulting Unavailabl e AICHHOLZ, TONG CARRIER TERE Admitting Unavailable AICHHOLZ, TONG CARRIER TERE Attending Unavailable AICHHOLZ, TONG CARRIER TERE Primary Care Unavailable AICHHOLZ, TONG CARRIER TERE Consulting Unavailable AICHHOLZ, TONG CARRIER TERE Admitting Unavailable AICHHOLZ, TONG CARRIER TERE Attending Unavailable AICHHOLZ, TONG CARRIER TERE Primary Care Unavailable AICHHOLZ, TONG CARRIER TERE Consulting Unavailable DR Arthur MADERA Admitting Unavailable DR Arthur MADERA Attending Unavailable AICHHOLZ, TONG CARRIER TERE Primary Care Unavailable BRIGIDA RAHMAN Attending Unavailable SILVESTRE PHIPPS Primary Care Unavailryne e Berenice Haile Unavailable GENOVEVA Haile Attending Provider GENOVEVA Haile Attending Provider NO FAMILY, PHYSICIAN Primary Care Provider Unava ilable GENOVEVA Haile Primary Care Provider GENOVEVA Pitts Attending Provider Ladarius Pitts Unavailable GENOVEVA Haile Primary Care Provider GENOVEVA Pitts Attending Provider EVANGELINA Hansen Attending Provider GENOVEVA Montgomery Primary Care Provider [phone] Berenice Haile NP Primary Care Provider GENOVEVA Haile Primary Care Provider DO Nazario Torres Emergency Provider BERENICE HAILE Referring Unavailable DANTEACHEBERENICE Hansen Primary Care Unavailable BERENICE HAILE Referring Unavailable DANTEACHEBERENICE Hansen Primary Care Unavailable ELAYNE LUCIANO Attending Unavailable AICHHOLTERE Bryant Referring Unavailable AICHHOLZ, TERE J Primary Care Unavailable ELAYNE LUCIANO Referring Unavailable AICHHOLZ, TERE J Primary Care Unavailable BLAKE COREA Attending Unavailable BLAKE COREA Attending Unavailable RENETTA PASTOR Attending Unavailable BLAKE COREA Attending Unavailable Jesús Savana Unavailable Unavailable Nazario Torres Attending Unavailable Nazario Torres Admitting Unavailable Rohrbacher, Berenice Primary Care Unavailable Johana Hansen Admitting Unavailable Johana Hansen Attending Unavailable Lola Montgomery Primary Care Unavailable Johan Enriquez Admitting Unavailab le Johan Enriquez Attending Unavailab le [facility] Primary Care Unavailable Aichholz MOBILE CRANE OPERATOR-TONG CARRIER, [facility] Primary Care Provider Rohrbacher MOBILE CRANE OPERATOR-CONVEYOR LINE BATTERY CHARGER, [facility] Primary Care [facility] er Aicholz MOBILE CRANE OPERATOR-TONG CARRIER, [facility] Primary Care Provider JASWANT HUSSEIN Attending Unavailable LESLYRBACHER, BERENICE Referring Unavailable [facility] Primary Care Unavailable ANUP BUTLER Attending Unavailable ANUP BUTLER E Referring Unavailable ROHRBACHER, [facility] Primary Care Unavailable PAGE ANUP E Admitting Unavailable BUTLERANUP KEMP Attending Unavailable ROHRBACHER, BERENICE Referring Unavailable ROHRBACHER, [facility] Primary Care Unavailable LAITH BECK Attending Unavailable ROHRBACHER, [facility] Primary Care Unavailable RENETTA ELIZALDE Attending Unavailable ROHRBACHER, BERENICE Referring Unavailable ROHRBACHER, [facility] Primary Care Unavailable KYLAH AMADO Attending Unavailable AICHHOLZ, TERE J Primary Care Unavailable KYLAH AMADO Attending Unavailable KYLAH AMADO Referring Unavailable AICHHOLZ, TERE J Primary Care Unavailable ANUP BUTLER Attending Unavailable BUTLERANUP KEMP E Referring Unavailable AICHHOLZ, TERE J Primary Care Unavailable ANUP BUTLER E Admitting Unavailable ANUP BUTLER Attending Unavailable ANUP BUTLER E Referring Unavailable AICHHOLZ, TERE J Primary Care Unavailable DECLAN MONK Attending Unavailable AICHHOLZ, TERE J Primary Care Unavailable Kylah Gould Referring Unavailable AICHHOLZ, TERE J Primary Care Unavailable ELAYNE LUCIANO Referring Unavailable AICHHOLZ, TERE J Primary Care Unavailable ELAYNE LUCIANO Referring Unavailable AICHHOLZ, TERE J Primary Care Unavailable YUMIKO ELIZALDE Attending Unavailable AICHHOLZ, TERE Wayne Referring Unavailable AICHHOLZ, TERE J Primary Care Unavailable BUTLER, ANUP E Attending Unavailable BUTLER, ANUP E Referring Unavailable AICHHOLZ, TERE J Primary Care Unavailable BUTLER, ANUP E Admitting Unavailable BUTLER, ANUP E Attending Unavailable AICHHOLZ, TERE J Referring Unavailable AICHHOLZ, TERE J Primary Care Unavailable BUTLER, ANUP E Attending Unavailable BUTLER, ANUP E Referring Unavailable AICHHOLZ, TERE J Primary Care Unavailable BUTLER, ANUP E Admitting Unavailable BUTLER, ANUP E Attending Unavailable BUTLER, ANUP E Referring Unavailable AICHHOLZ, TERE J Primary Care Unavailable YUMIKO ELIZALDE Attending Unavailable AICHHOLZ, TERE J Referring Unavailable AICHHOLZ, TERE J Primary Care Unavailable AICHHOLZ, TERE J Primary Care Unavailable BLAKE COREA Referring Unavailable BUTLER, ANUP E Attending Unavailable BUTLER, ANUP E Referring Unavailable AICHHOLZ, TERE J Primary Care Unavailable BUTLER, ANUP E Admitting Unavailable BUTLER, ANUP E Attending Unavailable AICHHOLZ, TERE J Referring Unavailable AICHHOLZ, TERE J Primary Care Unavailable JASWANT HUSSEIN Attending Unavailable AICHHOLZ, TERE J Referring Unavailable AICHHOLZ, TERE J Primary Care Unavailable Berenice Dempsey Primary Care [facility] er Ana TOMAS-Tere AREVALO Primary Care Provider Allergies Allergy Classification Reported Allergen(s) Allergy Type Date of Onset Reaction(s) Facility Acetaminophen / Codeine (1 source) Acetaminophen / Codeine; Translations: [ACETAMINOPHEN-CODE INE] Drug Allergy 019 [facility] Cephalosporins (antibiotic) (3 sources) Cefaclor; Translations: [CEPHALOSPORINS] Drug Allergy 015 [facility] Rep[facility] NSAIDs (2 sources) NSAIDs; Translations: [IBUPROFEN] Drug Allergy 016 [facility] Opioid Agonists (2 sources) fentaNYL; Translations: [CODEINE] Drug Allergy 017 Fentanyl [facility] Penicillins (antibiotic) (7 sources) Penicillins; Translations: [AMOXICILLIN] Drug Allergy 015 Shock [facility] Sulfamethoxazole / Trimethoprim (1 source) Sulfamethoxazole / Trimethoprim Drug Allergy [address] [facility] Work Phone: Unclassified (1 source) TYLENOL CODEINE #3; Translations: [TYLENOL CODEINE #3] Propensity to adverse reactions (disorder) 015 [facility] Repository (20 sources) amoxicillin; Translations: [amoxicillin] Drug Allergy 017 [facility], Unknown, Unknown Reaction [facility] Repository (20 sources) ampicillin; Translations: [Ampicillin] Drug Allergy [facility] (20 sources) Penicillins; Translations: [PENICILLINS] Allergy to substance (disorder) 013 Anaphylaxis, Shock, Hives, Rash [facility] (20 sources) Vespid (bees, hornets, wasps, yellow jackets); Translations: [Vespid (bees, hornets, wasps, yellow jackets)] Allergy to substance (disorder) [facility] (6 sources) -No Known Food Allergies Allergy to substance (disorder) [facility] (1 source) penicillin; Translations: [PENICILLIN] Drug Allergy 018 AOF [facility] Repository (4 sources) amoxicillin; Translations: [amoxicillin] Drug Allergy [facility] (4 sources) ampicillin; Translations: [Ampicillin] Drug Allergy [facility] (20 sources) Amoxicillin Drug Allergy 015 Anaphylaxis, Rash, Hives [place], [place] (20 sources) Cefaclor; Translations: [CEFACLOR] Drug Allergy 015 Hives, Anaphylaxis, Other (See Comments) [place], [place] (20 sources) Codeine; Translations: [CODEINE] Drug Allergy 015 Hives, Rash [facility] [place] (16 sources) NSAIDs; Translations: [NSAIDS (Non-Steroidal Anti-Inflammatory Drug)] Allergy to substance 016 [facility] (10 sources) fentaNYL Drug Allergy Fentanyl [facility] Work Phone: (9 sources) Sulfamethoxazole / Trimethoprim Drug Allergy [address] [facility] Work Phone: (16 sources) Cefaclor; Translations: [Ceclor] Drug Allergy 013 Unknown [facility] (20 sources) Penicillin G Drug Allergy 018 Anaphylaxis, Rash, Unknown PRX Other (2 sources) Amoxicillin Drug Allergy [facility] (2 sources) Codeine Drug Allergy [facility] (2 sources) Acetaminophen Drug Allergy Unknown Reaction [facility] (14 sources) Latex; Translations: [latex] Allergy to substance Unknown Reaction, Rash [facility] (20 sources) Acetaminophen / Codeine; Translations: [ACETAMINOPHEN-CODE INE] Drug Allergy 019 Hives [facility] Work Phone: (9 sources) Non-steroidal anti-inflammatory agent Drug Allergy 023 [facility] (7 sources) Wound Dressing Adhesive Drug Allergy [facility] (1 source) Amoxicillin Drug Allergy [facility] (1 source) Cefaclor Drug Allergy [facility] (1 source) Codeine Drug Allergy [facility] (1 source) Penicillin Drug Allergy [facility] Medications Current Medications Medication Drug Class(es) Dates Sig (Normalized) Sig (Original) acetaminophen 325 mg oral tablet (19 sources) Start: 12-14-2023 take 1 capsule by [...] Start: 10-15-2018 take 2 tablets by mo [facility] every eight hours as needed for pain [...] 2 tablets 28 tablet 09/23/2023 Active Start: 08-26-2023 End: 09-09-2023 oxyCODONE-acetaminophen (PER COCET) 5-325 mg per tablet Indications: Neck pain , Low back pain, unspecified back pain laterality, unspecified chronicity, unspecified whether sciatica present Take 1 tablet by mouth every 8 (eight) hours for 14 days. Max Daily Amount: 3 tablets 42 tablet 08/26/2023 09/09/2023 Active Start: 2019 End: 2019 oxyCODONE-acetaminophen (PER [...] Antidepressant Start: 01-25-20 End: 04-27-19 24 take 1 tablet by mouth once daily amitriptyline (ELAVIL) 10 mg tablet Take 1 tablet (10 mg total) by mouth nightly. 30 tablet 04/27/2023 Active Start: 03-08-2019 End: 03-08-2019 Amitriptyline [...] by dr bowie take 1 tablet by enriqueta once daily [...] - 02/04/2020 Provider: take 1 capsule by [facility] every twenty-four hours Adderall XR 20 MG [...] CNP Start: 12-09-2016 take 2 tablets by [facility] once daily, then take 1 tablet by [...] tablet Active 600 MG PO Daily 90 90 April 28, 2023 2:08pm Start: 10-20-2020 [...] - Provider: Start: 04-01-2018 End: 04-01-2018 VRAYLAR MIS 04/01/2018 - Provider: Cassie oral chlorhexidine gluconate [...] Cre am 08/05/2020 Provider: Rosana Alaniz CNP cyproheptadine hydrochloride 4 mg oral tablet (20 sources) Start: 05-05-2018 Cyproheptadine HCl 4MG Oral Tablet 05/05/2018 Provider: Start: 04-01-2018 End: 02-04-2020 CYPROHEPTADINE 4 MG MISC - 02/04/2020 Provider: Start: 04-01-2018 End: 04-01-2018 CYPROHEPTADINE 4 MG MISC - 04/01/2018 Provider: Start: 04-01-2018 End: 04-01-2018 [facility]PTADINE [facility] - 04/01/2018 Provider: take [...] (66 M G IRO MIS 04/01/2018 - 02/04/2020 Provider: Start: 04-01-2018 End: [...] 90 90 May 26, 2023 2:20pm Start: 10-02-2023 take 1 tablet by enriqueta th once daily as needed Furosemide 20 MG 1 tablet Orally Once a day as needed for 30 days Dec, Active Start: 06-07-2021 take 1 tablet by enriqueta twice daily furosemide (LASIX) 40 mg tablet [...] Tablet Extended Release 24 Hour 03/08/2019 Provider: letrozole 2.5 mg oral tablet (1 source) Aromatase Inhibitor Start: 03-09-2024 End: 03-14-2024 take 3 tablets by mouth once daily letrozole (Femara) 2.5 MG chemo tablet Indications: Fallopian tube disorder Take 3 tablets (7.5 mg total) by mouth Daily for 5 days. 15 tablet 03/09/2024 03/14/2024 Active lisdexamfetamine dimesylate 50 mg oral capsule (20 sources) Central Nervous System Stimulant Start: 05-26-2023 take 50 mg by mouth once daily Lisdexamfetamine Active 50 MG PO Daily May 26, 2023 12:00am Start: 12-01-2022 take 1 capsule by mo [facility] at bedtime lisdexamfetamine (VYVANSE) 30 mg capsule Take 1 capsule (30 mg total) by mouth in the morning and at bedtime. 12/01/2022 Active take 1 capsule by mo uth in the morning lisdexamfetamine (Vyvanse) 60 MG capsule Take 60 mg by mouth in the morning. Active take 1 capsule by mo ut every twenty-four hours Vyvanse 50 MG 1 capsule in the morning Orally Once a day Active loratadine 10 mg oral tablet (20 sources) Start: 04-01-2018 End: 02-04-2020 Loratadine 10 MG Oral Tablet 03/08/2019 Provider: meloxicam 7.5 mg oral tablet (15 sources) Nonsteroidal Anti-inflammatory Drug Start: 06-26-2019 End: 11-12-2020 Meloxicam 7.5 MG Oral Tablet 11/12/2020 Provider: Rosana Alaniz CNP methylPREDNISolone (20 sources) Corticosteroid Start: 01-26-2024 End: 04-18-2024 methylPREDNISolone (MEDROL, NICO,) 4 mg tablet Indications: Intervertebral disc stenosis of neural canal of cervical region follow package directions 21 tablet 01/26/2024 04/18/2024 Discontinued (Therapy completed) Start: 01-26-2024 methylPREDNISo lone (MEDROL, NICO,) 4 mg tablet Indications: Intervertebral disc stenosis of neural canal of cervical region follow package directions 21 tablet 01/26/2024 Active Start: 10-25-2023 End: 01-26-2024 methylPREDNISolone (MEDROL, NICO,) 4 mg tablet Indications: Intervertebral disc stenosis of neural canal of cervical region follow package directions 21 tablet 10/25/2023 01/26/2024 Discontinued (Reorder) Start: 10-25-2023 methylPREDNISo lone (MEDROL, NICO,) 4 mg tablet Indications: Intervertebral disc stenosis of neural canal of cervical region follow package directions 21 tablet 10/25/2023 Active Start: 12-16-2022 End: 10-25-2023 methylPREDNISolone (MEDROL, NICO,) 4 mg tablet Indications: Spinal stenosis of lumbar region with neurogenic claudication , Lumbar radiculopathy Take 1 tablet (4 mg total) by mouth See Admin Instructions. Use as directed by package instructions 21 tablet 12/16/2022 10/25/2023 Discontinued Start: 01-04-2019 End: 01-10-2019 Medrol 4 MG Oral Tablet Ther apy Pack 01/04/2019 - 01/10/2019 Provider: Primitivo Lujan TONG CARRIER mirtazapine 15 mg oral tablet (12 sources) Start: 02-20-2019 Remeron 15 MG Oral Tablet 02/20/2019 Provider: Multiple Vitamins-Minerals (THERAPEUTIC MULTIVITAMIN-MINERALS) tablet (8 sources) take 1 tablet by mouth once daily Multiple Vitamins-Minerals (THERAPEUTIC MULTIVITAMIN-MINERALS) tablet Take 1 tablet by mouth daily 0 Active multivit with minerals/lutein (MULTIVITAMIN 50 PLUS ORAL) (20 sources) multivit with minerals/lutein (MULTIVITAMIN 50 PLUS [...] Provider: naloxone hydrochloride 40 mg/ml nasal spray (7 sources) Opioid Antagonist Start: 08-26-2023 naloxone (NA RCAN) 4 mg/actuation spray,non-aerosol nasal spray Administer 1 spray (4 mg total) into alternating nostrils as needed for opioid reversal. 1 each 1 08/26/2023 Active Start: 03-13-2020 Narcan 4 MG/0. 1ML Nasal Liquid 03/13/2020 Provider: Start: 01-29-2019 naloxone (NARC AN) 4 MG/0.1ML LIQD nasal spray 1 spray by Nasal route as needed for Opioid Reversal 1 each 2 01/29/2019 Active naloxone (NARCAN) 4 mg/actuation spray,non-aerosol nasal spray (10 sources) Start: 08-26-2023 naloxone (NARCAN) 4 mg/actuation spray,non-aerosol nasal spray Administer 1 spray (4 mg total) into alternating nostrils as needed for opioid reversal. 1 each 1 08/26/2023 Active naratriptan 2.5 mg oral tablet (20 sources) Serotonin-1b and Serotonin-1d Receptor Agonist Start: 05-25-2021 naratriptan (AMERGE) 2.5 mg tablet TAKE 1 TABLET BY MOUTH NEEDED FOR MIGRAINE. MAX OF 2 TABLETS IN 24 HOURS 05/25/2021 Active nitrofurantoin, macrocrystals 25 mg / nitrofurantoin, monohydrate 75 mg oral capsule (6 sources) Nitrofuran Antibacterial Start: 11-25-2023 End: 12-02-2023 take 1 capsule by mouth in the morning nitrofurantoin, macrocrystal-monohydr ate, (Macrobid) 100 MG capsule Indications: Urinary tract infection without hematuria, site unspecified Take 1 capsule (100 mg) by mouth in the morning and 1 capsule (100 mg) before bedtime. Do all this for 7 days. 14 capsule 11/25/2023 12/02/2023 Active Start: 07-04-2019 End: 07-16-2019 Macrobid 100 MG Oral Capsule 07/04/2019 - 07/16/2019 Provider: Rosana Alaniz CNP nystatin 786341 unt/ml / triamcinolone acetonide 1 mg/ml topical cream (20 sources) Polyene Antifungal, Corticosteroid Start: 11-20-2018 End: 02-20-2019 Nystatin-Triamcinolone 868997-6.1 UNIT/GM-% External Cream 02/20/2019 Provider: Rosana Alaniz [...] Start: 04-01-2018 End: 02-04-2020 ONDANSETRON 4 mg [facility] 2018 - 02/04/2020 Provider: Start: 04-01-2018 End: 04-01-2018 ONDANSETRON 4 mg [facility] 2018 - 04/01/2018 Provider: take 1 tablet [...] 04-01-2018 End: 02-04-2020 POTASSIUM CHLORIDE 20 mEq [facility] 04/01/2018 - 02/04/2020 Provider: Start: 04-01-2018 End: 04-01-2018 POTASSIUM CHLORIDE 20 mEq NC SC 04/01/2018 - 04/01/2018 Provider: Start: 07-14-2017 End: 02-04-2020 POTASSIUM CHLORIDE 20 mEq NC SC 07/14/2017 - 02/04/2020 Provider: Start: 07-14-2017 End: 07-14-2017 POTASSIUM CHLORIDE 20 mEq NC SC 07/14/2017 - 07/14/2017 Provider: Start: 07-14-2017 [...] Start: 04-01-2018 End: 02-04-2020 LYRICA 225 MG [facility] 02/04/2020 Provider: Start: 04-01-2018 End: 04-01-2018 LYRICA 225 [facility] - 04/01/2018 Provider: Start: 04-01-2018 [...] Vitamins) 28-0.8 MG tablet (2 sources) Start: 10-20-2022 End: 10-20-2023 take 1 tablet by mouth in the morning Vit-Fe Fumarate-FA ( Vitamins) 28-0.8 MG tablet Indications: Vitamin deficiency Take 1 tablet by mouth in the morning. 30 tablet 6 10/20/2022 10/20/2023 Active promethazine hydrochloride 12.5 mg oral tablet (20 sources) Phenothiazine Start: 08-15-2023 End: 11-13-2023 take 1 tablet by mouth every six hours as needed for nausea and vomiting and nausea and nausea promethazine (Phenergan) 12.5 MG tablet Indications: Nausea Take 1 tablet (12.5 mg) by mouth every 6 (six) hours if needed for nausea or vomiting Take 1 tablet by mouth every 6 hours as needed for nausea. 30 tablet 2 08/15/2023 11/13/2023 Active Start: 04-28-2019 End: 03-12-2020 Promethazine HCl 25 [...] oral route every 6 hours as needed Psyllium Husk (Daily Fiber) 0.4 gram capsule (3 sources) Start: 05-26-2023 Psyllium Husk (Daily Fiber) 0.4 gram capsule Active 0.4 GM PO Daily May 26, 2023 12:00am silver sulfADIAZINE 10 mg/ml topical cream (8 sources) Sulfonamide Antibacterial Start: 09-22-2022 Silvadene 1 % 1 application [...] Oral Capsule 10/20/2020 Provider: Rosana Alaniz CNP topiramate 100 mg oral tablet (20 sources) Start: 06-15-2023 End: 06-29-2023 take 1 tablet by mouth in the morning, then take 1 tablet by mouth at bedtime topiramate (TOPAMAX) 100 mg tablet Take 1 tablet (100 mg total) by mouth in the morning and 1 tablet (100 mg total) before bedtime. Do all this for 14 days. 28 tablet 06/15/2023 06/29/2023 Active Start: 11-24-2017 End: 02-04-2020 Topiramate 100 MG OR TABS - 02/04/2020 Provider: Conversion Provider traMADol hydrochloride 50 mg oral tablet (9 sources) Opioid Agonist Start: 01-20-2022 take 1 [...] Start: 08-16-2017 End: 02-04-2020 VALACYCLOVIR 500 mg [facility] 02/2018 - 02/04/2020 Provider: Start: 08-16-2017 End: 08-16-2017 VALACYCLOVIR 500 mg [facility] 02/2018 - 08/16/2017 Provider: Start: 04-24-2016 End: [...] End: 04-01-2018 CYANOCOBALAMIN (VITAMIN B-12 ) 1,000MCG/ML [facility] 04/01/2018 - 04/01/2018 Provider: Start: 02-16-2018 take [...] Provider: Start: 04-01-2018 End: 04-01-2018 FIORICET 50-300-40MG MISC 04/01/2018 - 04/01/2018 Provider: take 1 tablet by enriqueta th twice daily as needed for headache hwlxasleqd-hcyrijtkqfqja-ccldmatn (FIORICET, ESGIC) 50-325-40 MG per tablet Take [...] - 02/04/2020 Provider: take 1 tablet by neriqueta th four times daily as needed diphenoxylate-atropine [...] OR TABS 04/01/2018 - 02/04/2020 Provider: [place] Provider Baclofen Active End: 11-24-2017 take 1 [...] oral solution (17 sources) alpha-Adrenergic Agonist, Uncompetitive O-xhpdlo-D-aspartate Receptor Antagonist, Sigma-1 Agonist Start: 03-29-2017 take [...] 08-18-2017 BROMFED DM 2-30-10 MG/5 ML M ISC 08/18/2017 - 08/18/2017 Provider: Start: 08-18-2017 End: 08-18-2017 BROMFED DM 2-30-10MG/5 ML NC SC 08/18/2017 - 08/18/2017 Provider: Start: 03-29-2017 End: 02-04-2020 BROMFED DM 2-30-10 MG/5 ML M ISC 03/29/2017 - 02/04/2020 Provider: Start: 03-29-2017 End: 03-29-2017 BROMFED DM 2-30-10 MG/5 ML M ISC 03/29/2017 - 03/29/2017 Provider: Start: 03-29-2017 End: 03-29-2017 BROMFED DM 2-30-10MG/5 ML NC SC 03/29/2017 - 03/29/2017 Provider: Start: 01-06-2017 End: 02-04-2020 BROMFED DM 2-30-10 MG/5 ML M ISC 01/06/2017 - 02/04/2020 Provider: Start: 01-06-2017 End: 01-06-2017 BROMFED DM 2-30-10 MG/5 ML M ISC 01/06/2017 - 01/06/2017 Provider: Start: 01-06-2017 End: 01-06-2017 BROMFED DM 2-30-10MG/5 ML NC SC 01/06/2017 - 01/06/2017 Provider: Calcium (20 [...] WITH VITAMIN D3 600 mg(1,500mg) -400 UNIT [facility] 04/01/2018 - 02/04/2020 Provider: Start: 11-24-2017 End: 02-04-2020 CALCIUM 600 WITH VITAMIN D3 600 mg(1,500mg) -400 UNIT [facility] 11/24/2017 - 02/04/2020 Provider: CALCIUM 600 WITH VITAMIN D3 600 mg(1,500mg)-400 UNIT MISC (6 sources) Start: 04-01-2018 End: 04-01-2018 CALCIUM 600 WITH VITAMIN D3 600 mg(1,500mg)-400 UNIT [facility] 04/01/2018 - 04/01/2018 Provider: Start: 11-24-2017 End: 11-24-2017 CALCIUM 600 WITH VITAMIN D3 600 mg(1,500mg)-400 UNIT [facility] 11/24/2017 - 11/24/2017 Provider: calcium carbonate 1500 [...] Start: 08-16-2017 End: 02-04-2020 ZYRTEC 10 mg [facility] 08/16/2017 - 02/04/2020 Provider: Start: 08-16-2017 End: 08-16-2017 ZYRTEC 10 mg [facility] 08/16/2017 - 08/16/2017 Provider: Clindamycin (20 sources) [...] 1,000 MCG/ML MISC 02/16/2018 - 02/04/2020 Provider: cyclobenzaprine hydrochloride 10 mg oral tablet (20 sources) Muscle Relaxant Start: 03-16-2023 End: 01-26-2024 take 1 tablet by mouth three times daily as needed for muscle spasms cyclobenzaprine (FLEXERIL) 10 mg tablet Indications: DDD (degenerative disc disease), lumbosacral Take 1 tablet (10 mg total) by mouth 3 (three) times a day as needed for muscle spasms. 30 tablet 09/30/2023 01/26/2024 Discontinued (Reorder) Start: 12-16-2022 End: 03-16-2023 take 1 tablet by mouth in the morning, then take 1 tablet by mouth at bedtime cyclobenzaprine (FLEXERIL) 10 mg tablet Indications: S/P lumbar fusion Take 1 tablet (10 mg total) by mouth in the morning and 1 tablet (10 mg total) before bedtime. 60 tablet 03/16/2023 Active take 1 tablet by enriqueta th once daily in the morning, then take 1 tablet by mouth at bedtime Cyclobenzaprine HCl 10 MG TAKE 1 TABLET BY MOUTH EVERY MORNING AND 1 BEFORE BEDTIME Oral for 30 Days Active desonide 0.0005 mg/mg topical ointment (20 sources) [...] 04/01/2018 - 02/04/2020 Provider: DEXTROAMPHETAMINE-AMPHETAMIN E 30MG MIS (3 sources) Start: 04-01-2018 End: 04-01-2018 DEXTROAMPHETAMINE-AMPHETAMIN E 30MG [facility] 04/01/2018 - 04/01/2018 Provider: diazePAM 5 mg [...] Start: 04-01-2018 End: 02-04-2020 DULOXETINE 60 MG [facility] 04/01/2018 - 02/04/2020 Provider: Start: 04-01-2018 End: 04-01-2018 DULOXETINE 60 MG [facility] 2018 - 04/01/2018 Provider: Start: 04-01-2018 End: 04-01-2018 DULOXETINE 60MG [facility] 019 - 04/01/2018 Provider: take 1 capsule by mo [facility] once daily duloxetine 60 mg oral capsule,delayed [...] Glucose Scanning Reade r (Freestyle Vy 2 [place]) misc (3 sources) Start: 04-28-2023 End: 10-06-2023 Flash Glucose Scanning Reade r (Freestyle Vy 2 [place]) misc Discontinued 0 .Route 1 April 28, 2023 1:00am October 06, 2023 1:18pm As directed Start: 04-28-2023 Flash Glucose Scanning [place] (Freestyle Vy 2 [place]) misc Active 0 .Route 1 April 28, [...] needed for Pain. 0 Active lactobacillus acidophilus [id number] unt oral capsule (9 sources) Start: 02-16-2018 take 1 capsule by mouth once daily Probiotic 10 billion cell oral capsule 02/16/2018 take 1 capsule by oral route daily Start: 02-01-2017 take 1 capsule by mo [facility] once daily Probiotic 10 billion cell oral capsule 02/01/2017 take 1 capsule by oral route daily loperamide hydrochloride 2 mg oral tablet (20 sources) Opioid Agonist Start: 01-06-2017 End: 02-04-2020 Imodium A-D 2 MG OR TABS 01/06/2017 - 02/04/2020 Provider: MAXALT-HAND CLOTH FOLDER 10 MG MISC (20 sources) Start: 01-25-2018 End: 01-25-2018 MAXALT-HAND CLOTH FOLDER 10 MG MISC 01/25/2018 - 01/25/2018 Provider: Start: 08-16-2017 End: 08-16-2017 MAXALT-HAND CLOTH FOLDER 10 MG MISC 2017 - 08/16/2017 Provider: Start: 05-20-2017 End: 05-20-2017 MAXALT-HAND CLOTH FOLDER 10 MG MISC 2017 - 05/20/2017 Provider: Start: 02-01-2017 End: 02-01-2017 MAXALT-HAND CLOTH FOLDER 10 MG MISC 2016 - 02/01/2017 Provider: MAXALT-HAND CLOTH FOLDER 10 MG MISC (10 sources) Start: 01-25-2018 End: 02-04-2020 MAXALT-HAND CLOTH FOLDER 10 MG MISC 2017 - 02/04/2020 Provider: Start: 08-16-2017 End: 02-04-2020 MAXALT-HAND CLOTH FOLDER 10 MG MISC 2017 - 02/04/2020 Provider: Start: 05-20-2017 End: 02-04-2020 MAXALT-HAND CLOTH FOLDER 10 MG MISC 2017 - 02/04/2020 Provider: Start: 02-01-2017 End: 02-04-2020 MAXALT-HAND CLOTH FOLDER 10 MG MISC 2016 - 02/04/2020 Provider: MAXALT-HAND CLOTH FOLDER 10MG MISC (15 sources) Start: 01-25-2018 End: 01-25-2018 MAXALT-HAND CLOTH FOLDER 10MG MISC 018 - 01/25/2018 Provider: Start: 08-16-2017 End: 08-16-2017 MAXALT-HAND CLOTH FOLDER 10MG MISC 018 - 08/16/2017 Provider: Start: 05-20-2017 End: 05-20-2017 MAXALT-HAND CLOTH FOLDER 10MG MISC 018 - 05/20/2017 Provider: Start: 02-01-2017 End: 02-01-2017 MAXALT-HAND CLOTH FOLDER 10MG MISC 017 - 02/01/2017 Provider: Medical Compression Stocking s Miscellaneous (11 sources) Start: 01-04-2019 End: 02-03-2019 Medical Compression Stockings Miscellaneous 01/04/2019 - 02/03/2019 Provider: Primitivo Lujan CNP Medical Compression Stocking s Miscellaneous (2 sources) Start: 01-04-2019 End: 02-03-2019 Medical Compression Stockings Miscellaneous 01/04/2019 - 02/03/2019 Provider: Primitivo Lujan TONG CARRIER 1 ml medroxyPROGESTERone acetate 150 mg/ml injection (20 sources) Progestin Start: 05-05-2018 Depo-Provera 1 50 MG/ML IM SUSP 01/04/2019 Primitivo Huffmankamilah TONG CARRIER Start: 04-01-2018 End: 02-04-2020 DEPO-PROVERA MISC 04/01/2018 [...] MG OR TABS 01/19/2018 - 02/04/2020 Provider: polymyxin b [id number] unt/ml / trimethoprim 1 mg/ml ophthalmic solution [...] - 02/04/2020 Provider: PROBIOTIC 10 billion CELL NC SC (20 sources) Start: 02-16-2018 End: 02-16-2018 PROBIOTIC 10 billion CELL MISC 02/16/2018 - 02/16/2018 Provider: Start: 02-01-2017 End: 02-01-2017 PROBIOTIC 10 billion CELL NC SC 02/01/2017 - 02/01/2017 Provider: PROBIOTIC 10 billion CELL NC SC (4 sources) Start: 02-16-2018 End: 02-04-2020 PROBIOTIC 10 billion CELL NC SC 02/16/2018 - 02/04/2020 Provider: Start: 02-01-2017 End: 02-04-2020 PROBIOTIC 10 billion CELL NC SC 02/01/2017 - 02/04/2020 Provider: PROBIOTIC 10 billionCELL MIS C (6 sources) Start: 02-16-2018 End: 02-16-2018 PROBIOTIC 10 billionCELL MIS C 02/16/2018 - 02/16/2018 Provider: Start: 02-01-2017 End: 02-01-2017 PROBIOTIC 10 billionCELL MIS C 02/01/2017 - 02/01/2017 Provider: 24 hr propranolol hydrochloride 160 mg extended [...] Start: 05-05-2018 take 1 capsule by mo [facility] every twenty-four hours Propranolol HCl ER 160MG Oral Capsule Extended Release 24 Hour 05/05/2018 Provider: Start: 04-01-2018 End: 02-04-2020 PROPRANOLOL 160 MG [facility] 04/01/2018 - 02/04/2020 Provider: Start: 04-01-2018 End: 04-01-2018 PROPRANOLOL 160 MG [facility] 04/01/2018 - 04/01/2018 Provider: Start: 04-01-2018 End: 04-01-2018 PROPRANOLOL 160MG [facility] 04/01 - 04/01/2018 Provider: Start: 11-24-2017 take 1 capsule by mouth once d aily propranolol 160 mg oral capsule,extended release 24 hr 11/24/2017 take 1 capsule (160 mg) by oral route once daily Start: 11-24-2017 End: 02-04-2020 PROPRANOLOL 160 MG [facility] 11/24/2017 - 02/04/2020 Provider: Start: 11-24-2017 End: 11-24-2017 PROPRANOLOL 160 MG [facility] 11/24/2017 - 11/24/2017 Provider: Start: 11-24-2017 End: 11-24-2017 PROPRANOLOL 160MG [facility] 11/24 - 11/24/2017 Provider: Start: 05-26-2017 take 1 capsule by mouth once d aily propranolol 160 mg oral capsule,extended release 24 hr 05/26/2017 take 1 capsule (160 mg) by oral route once daily Start: 05-26-2017 End: 02-04-2020 PROPRANOLOL 160 MG [facility] 05/26/2017 - 02/04/2020 Provider: Start: 05-26-2017 End: 05-26-2017 PROPRANOLOL 160 MG [facility] 05/26/2017 - 05/26/2017 Provider: Start: 05-26-2017 End: 05-26-2017 PROPRANOLOL 160MG [facility] 05/26 - 05/26/2017 Provider: take 1 tablet [...] 01/21/2019 Provider: Rosana Alaniz CNP Start: 01-25-2018 Maxalt-HAND CLOTH FOLDER 10 mg oral tablet,disintegrating 01/25/2018 DISSOLVE 1 TABLET (10 MG) ON TOP OF THE TONGUE, THEN SWALLOW BY ORAL ROUTE ONCE, MAY REPEAT IN 2 HOURS, NOT AT SAME TIME IMITREX Start: 08-16-2017 Maxalt-HAND CLOTH FOLDER 10 mg oral tablet,disintegrating 08/16/2017 dissolve 1 tablet (10 mg) on top of the tongue, then swallow by oral route once, may repeat in 2 hours, not at same time as imitrex Start: 08-16-2017 Maxalt-HAND CLOTH FOLDER 10 mg oral tablet,disintegrating 08/16/2017 dissolve 1 [...] route daily tiZANidine 4 mg oral tablet (20 sources) Central alpha-2 Adrenergic Agonist Start: 2 [...] times daily. 0 2019 Discontinued (Therapy completed) urea 400 mg/ml topical lotio n (20 [...] Start: 12-22-2017 End: 12-22-2017 VITAMIN B-12 5,000MCG [facility] 12/22/2017 - 12/22/2017 Provider: Start: 08-16-2017 End: 08-16-2017 VITAMIN B-12 5,000MCG [facility] 0 08/16/2017 - 08/16/2017 Provider: vortioxetine 10 [...] sources) Endometriosis, site unspecified Chronic Esophageal disorders (20 sources) Gastroesophageal reflux disease; Translations: [Gastro-esophageal reflux disease without esophagitis] Onset: 2 08-25-2021 Chronic Female infertility (8 sources) Female infertility; Translations: [Female infertility, unspecified] Onset: [...] vitamins] Onset: 7 Episodic Open wounds of head; neck; and [...] sources) Fibromyalgia Episodic Other connective tissue disease (1 source) Pain of left calf; Translations: [Pain of left calf] Other endocrine disorders (8 sources) Polycystic ovaries Chronic Other endocrine disorders (3 sources) Hypoglycemia; Translations: [Hypoglycemia, unspecified] 04-28-2023 Chronic Other endocrine disorders (7 sources) Polycystic ovary syndrome; Translations: [Polycystic ovarian syndrome] Onset: 4 10-06-2023 Chronic Other endocrine disorders (1 source) Polycystic ovarian syndrome; Translations: [Polycystic ovarian syndrome] Onset: 4 Chronic Other female genital disorders (1 source) Other specified noninflammatory disorders of vagina; Translations: [OTH SPEC NONINFLAMMATORY D/O VAGINA] Onset: 3 Episodic Other gastrointestinal disorders (20 sources) Irritable bowel syndrome; Translations: [Irritable bowel [...] sources) Neuropathy; Translations: [Polyneuropathy, unspecified] Onset: 0 05-26-2023 Chronic Other nervous system disorders (13 sources) Chronic pain; Translations: [Other chronic pain] 05-26-2023 Chronic Other nervous system disorders (2 sources) Polyneuropathy, unspecified Chronic Other nervous system disorders (2 sources) Other chronic pain Chronic Other non-traumatic joint disorders (12 sources) Pain in joint, ankle and foot Onset: 8 Episodic Other non-traumatic joint disorders (1 source) Hip pain Onset: 5 Episodic Other nutritional; endocrine; and metabolic disorders [...] states Episodic Residual codes; unclassified (2 sources) Localized edema Episodic Residual codes; unclassified (2 sources) History [...] intervertebral disc of lumbar spine] Substance-related disorders (20 sources) Substance abuse; Translations: [Other psychoactive substance [...] Chiari malformation; Translations: [Chiari malformation] 05-26-2023 Unclassified (2 sources) Low back pain, unspecified; Translations: [Low back pain, unspecified] Onset: 3 Urinary tract infections (20 sources) Recurrent urinary tract infection; Translations: [Urinary tract infection, site not specified] 06-24-2016 Episodic Past or Other Problems Problem Classification Problem Date Documented Da te Episodic/Chronic Administrative/social admission (8 sources) Other reasons for seeking consultation Onset: 12-09-2016 Episodic Calculus of urinary tract (20 sources) Kidney stone; Translations: [Calculus of kidney] [...] Candidiasis of unspecified site Onset: 01-06-2017 Episodic Open wounds of extremities (14 sources) Open wound of hand with complication; Translations: [Open bite, unspecified lower leg, initial encounter] Onset: 06-15-2018 Episodic Other connective tissue disease (3 sources) History of lumbar fusion; Translations: [Arthrodesis status] 03-16-2023 Episodic Other connective tissue disease (1 source) Pain in bilateral legs; Translations: [Pain in right leg] 03-30-2023 Episodic Other eye disorders (8 sources) Pain [...] Dermatitis] Onset: 06-01-2018 Episodic Other skin disorders (20 sources) Hidradenitis suppurativa; Translations: [Hidradenitis suppurativa] Onset: 09-03-2016 09-03-2016 Episodic Other upper respiratory disease (16 sources) Other disease of nasal cavity and sinuses Onset: 02-22-2017 Episodic Residual codes; unclassified (2 sources) Family history of diabetes mellitus Onset: 01-06-2017 Episodic Residual codes; unclassified (6 sources) Personal history of other specified conditions; Translations: [Personal history of other specified diseases] Onset: 08-12-2021 08-24-2021 Episodic Residual codes; unclassified (1 source) Pain, unspecified; Translations: [Pain, unspecified] Onset: 03-02-2023 Episodic Residual codes; unclassified (2 sources) Altered mental status, unspecified; Translations: [Altered mental status, unspecified] Onset: 06-01-2023 Episodic Residual codes; unclassified (17 sources) History of clinical finding in subject; Translations: [Personal history of other specified conditions] Onset: 08-24-2021 2 Episodic Residual codes; unclassified (1 source) Transient [...] Value Interpretation Reference Range Facility ALL PROGESTERONEon 5 PROGESTERONE 4.0 ng/mL . [facility] Comment on above: Follicular phase 0.1 - 0.9 Luteal phase 1.8 - 23.9 Ovulation phase 0.1 - 12.0 First trimester 11.0 - 44.3 Second trimester 25.4 - 83.3 Third trimester 58.7 - 214.0 Postmenopausal 0.0 - 0.1 Performed at: [address] [id number] [employer] Dragline Operator: Sea Diaz PhD, Phone: [phone] [facility] PROGESTERONEon 5 PROGESTERONE 10.9 ng/mL . [facility] Comment on above: Follicular phase 0.1 - 0.9 Luteal phase 1.8 - 23.9 Ovulation phase 0.1 - 12.0 First trimester 11.0 - 44.3 Second trimester 25.4 - 83.3 Third trimester 58.7 - 214.0 Postmenopausal 0.0 - 0.1 Performed at: [facility] [id number] [employer] Operator: Sea Diaz PhD, Phone: [phone] [facility] [employer] [facility] PREG QUANT HCGon 025 HCG QUANTITATIVE <1 mIU/mL [facility] Comment on above: 5-50 0.2-1 WEEK 50-500 1-2 WEEKS 100-5,000 2-3 WEEKS 500-10,000 3-4 WEEKS 1,000-50,000 4-5 WEEKS 10,000-100,000 5-6 WEEKS 15,000-200,000 6-8 WEEKS 10,000-100,000 2-3 MONTHS [facility] [employer] ALL PROGESTERONEon PROGESTERONE 4.1 ng/mL . [facility] Comment on above: Follicular phase 0.1 - 0.9 Luteal phase 1.8 - 23.9 Ovulation phase 0.1 - 12.0 First trimester 11.0 - 44.3 Second trimester 25.4 - 83.3 Third trimester 58.7 - 214.0 Postmenopausal 0.0 - 0.1 Performed at: [facility] [id number] [employer] Operator: Sea Diaz PhD, Phone: [phone] [facility] [employer] Progesterone [Mass/Vol]on PROGESTERONE 0.2 ng/mL [facility] Comment on above: Result Comment: FEMALES: 1st Tri: 4.7-50.7 ng/ml 2nd Tri: 19.4-45.3 ng/ml MENSTRUATING FEMALES: Follicular: 0.3-1.5 ng/ml Mid Luteal: 5.2-18.6 ng/ml Post Yessy: <0.1-0.8 ng/ml Performed By: #### C BCA, 66715-8, 99094-4, 5643-2, CMP, 88074-3, 0538-7, 2157-6, 4024-6, 56428-6, 3040-3 #### [facility] ([id number]) [address] [place] [address], [place] [address] ALL PROGESTERONEon 4 PROGESTERONE 0.3 ng/mL . [facility] Comment on above: Follicular phase 0.1 - 0.9 Luteal phase 1.8 - 23.9 Ovulation phase 0.1 - 12.0 First trimester 11.0 - 44.3 Second trimester 25.4 - 83.3 Third trimester 58.7 - 214.0 Postmenopausal 0.0 - 0.1 Performed at: [facility] [id number] [employer] Operator: Sea Diaz PhD, Phone: InteliWISE [facility] [employer] ALL PROGESTERONEon 4 PROGESTERONE 3.2 ng/mL . [facility] [employer] Comment on above: Follicular phase 0.1 - 0.9 Luteal phase 1.8 - 23.9 Ovulation phase 0.1 - 12.0 First trimester 11.0 - 44.3 Second trimester 25.4 - 83.3 Third trimester 58.7 - 214.0 Postmenopausal 0.0 - 0.1 Performed at: [facility] [id number] [employer] Operator: Sea Diaz PhD, Phone: Curasight [facility]ctin[facility] ALL PROGESTERONEon - 4 PROGESTERONE 10.5 ng/mL . [facility] [employer] Comment on above: Follicular phase 0.1 - 0.9 Luteal phase 1.8 - 23.9 Ovulation phase 0.1 - 12.0 First trimester 11.0 - 44.3 Second trimester 25.4 - 83.3 Third trimester 58.7 - 214.0 Postmenopausal 0.0 - 0.1 Performed at: [facility] [id number] [employer] Operator: Sea Diaz PhD, Phone: [employer] [facility] [employer] CREATININEon 09-15-2023 Creatinine [Mass/Vol] 0.68 mg/dL Normal 0.40-1.00 Pro [facility] Comment on above: Result Comment: METH OD TRACEABLE TO IDMS STANDARD Performed By: #### C BCA, 71850-9, 88477-3, 5643-2, CMP, 27019-8, 3298-7, 2157-6, 4024-6, 53911-8, 3040-3 #### [facility] ([id number]) [address] [place] [address] eGFR (CKD-EPI) NON-RACE DEPENDENT >90 Normal >59 [facility] Comment on above: Result Comment: Reported eGFR is based on the CKD-EPI 2020 equation that does not use a race coefficient. Performed By: #### C BCA, 14933-4, 08746-1, 5643-2, CMP, 89689-4, 3298-7, 2157-6, 4024-6, 62959-5, 3040-3 #### [facility] ([id number]) [address] [place] [address] CT CERVICAL SPINE W CONTon 0 09-15-2023 [...] Gould MD on 09/15/2023 1:[address] [facility] CT LUMBAR SPINE W CONTon CT [...] Gould MD on 09/15/2023 1:[address] [facility] IR MYELOGRAM 2+ REGIONS GOLDEN Chang 09-15-2023 IR MYELOGRAM 2+ REGIONS COMPLETE IR [...] cutaneous antisepsis were utilized throughout this procedure. Tarpley protocol timeout verification performed. Procedure: The patient [...] Gould MD on 09/15/2023 1:[address] [facility] PLATELET COUNT AND MPVon Platelet mean volume (Bld) [Entitic vol] 8.0 fL Normal 7-12 [facility] Comment on above: Performed By: #### C TRAVIS, 45394-6, 09934-4, 5643-2, CMP, 94161- 9, 3298-7, 2157-6, 4024-6, 94652-4, 3040-3 #### [facility] ([id number]) [address] [place] [address] Platelets (Bld) [#/Vol] 262 10*3/uL Normal 150-450 [facility] Comment on above: Performed By: #### C TRAVIS, 65890-7, 17753-9, 5643-2, CMP, 22787- 9, 3298-7, 2157-6, 4024-6, 66134-0, 3040-3 #### [facility] ([id number]) [address] [facility] [place] [address] PROTIME AND INRon 09-15-2023 INR Coag (PPP) [Relative time] 1.1 {INR} Normal 0.8-1.1 [facility] Comment on above: Performed By: #### C TRAVIS, 63632-9, 73865-3, 5643-2, CMP, 90656- 9, 3298-7, 2157-6, 4024-6, 35808-2, 3040-3 #### [facility] ([id number]) [address] [place] [address] PT Coag (PPP) [Time] 12.3 s Normal 9.8-13.2 [facility] Comment on above: Result Comment: NEW REFERENCE RANGE Performed By: #### C TRAVIS, 21007-4, 69341-3, 5643-2, CMP, 95582-9, 3298-7, 2157-6, 4024-6, 93591-2, 3040-3 #### [facility] ([id number]) [address] [facility] [place] [place] [address] XR SPINE CERVICAL FLEXION/EX TENSION ONLYon 08-29-2023 [...] by Norbert Lunsford on 08/29/2023 4:27 PM [facility] Human papilloma virus 16+18+ 31+33+35+39+45+51+52+56+58+59+66+68 DNA [Presence] in [place] 08-15-2023 HPV 16+18+31+33+35+39+45+ 51+52+56+58+59+66+68 DNA Probe+sig amp Ql (Cvx) Negative Negative [facility] Comment on above: This nucleic acid am plification test detects fourteen high- risk HPV types (16,18,31,33,35,39,45,51,52,56,58,59,66,68)without differentiation.Performed at: =[facility] [id number] Director: Korin Hernandez MD, Phone: [phone] at: [facility] [id number] Director: Korin eHrnandez MD, Phone: [phone] No Panel Informationon 08-14 HPV High Risk Other Comment Note . [facility] Comment on above: TESTS RESULT FLAG UN ITS REF RANGE LAB D IAGNOSIS: 02 NEGATIVE FOR INTRAEPITHELIAL LESION OR MALIGNANCY.Specimen adequacy: 02 Satisfactory for evaluation. Endocervical and/or squamous metaplastic cells (endocervical component) are present.Performed by: 02 Janeth Mercedes Wafer Fabricator (ASCP). 02Note: Note 02 The Pap smear [...] High <-Panic Low,>-Panic High,A-Abnormal,AA-Critical Abnormal ----Performed at:[address] [id number] Korin Hernandez MD, Reference Lab Test Patient Age Note . [facility] Comment on above: TESTS RESULT FLAG UN ITS REF RANGE LAB Clinician Provided Cytology Information Source.............Cervix;Endocervix No. of containers..01 ThinPrep VialAge Deysi WORKMAN Marcia... 3065 FLAG LEGEND: L-Low Normal,H-High Normal,LL-Alert Low,HH-Alert High <-Panic Low,>-Panic High,A-Abnormal,AA-Critical Abnormal ----Performed at:01 =[facility] [address] [facility] [place] [address] Korin Hernandez MD, Activated partial thrombopla stin time (aPTT) in platelet poor plasma by coagulation aOrdered By: Nazario Torres on 06-15-2023 aPTT Coag (PPP) [Time] 30.4 s 25.1-36.5 [facility] Comment on above: A hematocrit value g reater than 55% may lead to inaccurate results in coagulation testing. Patients having hematocrit values >55% require a special collection tube for coagulation studies. Please contact the laboratory at [phone] for redraw instructions. Alanine aminotransferase [En zymatic activity/volume] in Serum or PlasmaOrdered By: Nazario Torres on 06-15-2023 ALT [Catalytic activity/Vol] 42 U/L Normal 7-52 [facility] Comment on above: Performed By: #### P T, CMP, PTT, HS TROP, CBC, CK, AMM ####[facility] [id number] [id number] [facility] Albumin [Mass/volume] in Ser um or Plasma by Bromocresol green (BCG) dye binding methoOrdered By: Nazario Torres on 06-15-2023 Albumin BCG dye [Mass/Vol] 3.9 g/dL 3.5-5.7 [facility] Alkaline phosphatase [Enzyma tic activity/volume] in Serum or PlasmaOrdered By: Nazario Torres on 06-15-2023 ALP [Catalytic activity/Vol] 115 U/L High 34-104 [facility] Comment on above: Performed By: #### P T, CMP, PTT, HS TROP, CBC, CK, AMM ####[address] Ammonia [Moles/volume] in Pl asmaOrdered By: Nazario Torres on 06-15-2023 Ammonia (P) [Moles/Vol] 21 umol/L Normal 11-35 [facility] Comment on above: Result Comment: PERF ORMED BY: [facility] [address] [place] [address] PATHOLOGIST [employer] LAURI PATEL M.D. Performed By: #### P T, CMP, PTT, HS TROP, CBC, CK, AMM ####[address] Amphetamine Screen Ql (U)Ord ered By: Nazario Torres on 06-15-2023 Amphetamines Ql (U) Positive Negative [facility] Aspartate aminotransferase [ Enzymatic activity/volume] in Serum or PlasmaOrdered By: Nazario Torres on 06-15-2023 AST [Catalytic activity/Vol] 32 U/L Normal 13-39 [facility] Comment on above: Performed By: #### P T, CMP, PTT, HS TROP, CBC, CK, AMM ####[address] Automated basophil %Ordered By: Nazario Torres on 06-15-2023 Basophils/100 WBC (Bld) 0.2 % Normal . [facility] Comment on above: Performed By: #### P T, CMP, PTT, HS TROP, CBC, CK, AMM ####[address] Automated basophil countOrde red By: Nazario Torres on 06-15-2023 Basophils (Bld) [#/Vol] 0.0 10*3/uL Normal 0.0-0.2 [facility] Comment on above: Result Comment: PERF ORMED BY: [facility] [address] [place] [address] PATHOLOGIST [employer] LAURI PATEL M.D. Performed By: #### P T, CMP, PTT, HS TROP, CBC, CK, AMM ####[address] Automated blood monocyte cou ntOrdered By: Nazario Torres on 06-15-2023 Monocytes (Bld) [#/Vol] 0.3 10*3/uL Normal 0.0-0.8 [facility] Comment on above: Performed By: #### P T, CMP, PTT, HS TROP, CBC, CK, AMM ####[address] Automated eosinophil %Ordere d By: Nazario Torres on 06-15-2023 Eosinophils/100 WBC (Bld) 4.2 % Normal . [facility] Comment on above: Performed By: #### P T, CMP, PTT, HS TROP, CBC, CK, AMM ####[address] Automated eosinophil countOr dered By: Nazario Torres on 06-15-2023 Eosinophils (Bld) [#/Vol] 0.2 10*3/uL Normal 0.0-0.45 [facility] Comment on above: Performed By: #### P T, CMP, PTT, HS TROP, CBC, CK, AMM ####[address] Automated erythrocytes count in urine sediment (number/area)Ordered By: Nazario Torres on 06-15-2023 RBC Auto (Urine sed) [#/Area] 1-2 [HPF] 0-4 [facility] Automated leukocytes count i n urine sediment (number/area)Ordered By: Nazario Torres on 06-15-2023 WBC Auto (Urine sed) [#/Area] 5-9 [HPF] 0-4 [facility] Automated monocyte %Ordered By: Nazario Torres on 06-15-2023 Monocytes/100 WBC (Bld) 6.0 % Normal . [facility] Comment on above: Performed By: #### P T, CMP, PTT, HS TROP, CBC, CK, AMM ####[place] [address] [place] Automated neutrophil %Ordere d By: Nazario Torres on 06-15-2023 Neutrophils/100 WBC (Bld) 32.6 % Normal . [facility] Comment on above: Performed By: #### P T, CMP, PTT, HS TROP, CBC, CK, AMM ####[facility] [id number] Automated urine color determ inationOrdered By: Nazario Torres on 06-15-2023 Color (U) Yellow Normal Yellow [facility] Comment on above: Order Comment: Name Collection Type:: Straight Catheter Performed By: #### C UU, ADDONUAPLUS, UHCG #### [facility] [address] Barbiturates [Presence] in U rine by Screen methodOrdered By: Nazario Torres on 06-15-2023 Barbiturates Screen Ql (U) Negative Negative [facility] Benzodiazepines Screen Ql (U )Ordered By: Nazario Torres on 06-15-2023 Benzodiazepines Ql (U) Negative Negative [facility] Benzoylecgonine [Presence] i n Urine by Screen methodOrdered By: Nazario Torres on 06-15-2023 Benzoylecgonine Screen Ql (U) Positive Negative [facility] Bilirubin Test strip Ql (U)O rdered By: Nazario Torres on 06-15-2023 Bilirubin Ql (U) Negative Negative [facility] Bilirubin.total [Mass/volume ] in Serum or PlasmaOrdered By: Nazario Torres on 06-15-2023 Bilirubin [Mass/Vol] 0.4 mg/dL Normal 0.3-1.0 [facility] Comment on above: Performed By: #### P T, CMP, PTT, HS TROP, CBC, CK, AMM ####[facility] [id number] head/brain wo conon 06-14 CT head/brain wo con [facility] [address] [place] [address] CT Scan Report Signed Patient: Tyrone Lim MR#: [id number] : 1985 Acct:[id number] Age/Sex: 38 / F ADM Date: 06/15/23 [...] Jason Stone M.D.06/15/2023 12:37 PM Dictation Location: [place] [address] Transcribed By: [facility] 06/15/23 1237 Dictated By: Jason Stone II, MD 06/15/23 1234 Signed By: 06/15/23 1237 Normal [facility] Calcium [Mass/volume] in Ser um or PlasmaOrdered By: Nazario Torres on 06-15-2023 Calcium [Mass/Vol] 8.3 mg/dL Low 8.6-10.3 [facility] Comment on above: Performed By: #### P T, CMP, PTT, HS TROP, CBC, CK, AMM ####[facility] [id number] [place] [id number] [facility] Cannabinoids [Presence] in U rine by Screen methodOrdered By: Nazario Torres on 06-15-2023 Cannabinoids Screen Ql (U) Positive Negative [facility] Comment on above: These are unconfirme d results and should not be used for legal purposes. Drug Cut-Off Concentration: AMPH 1000 ng/mL CHUYITA 200 ng/mL DINO 200 ng/mL COCM 300 ng/mL OP 300 ng/mL PCP 25 ng/mL THC 20 ng/mL Capillary blood glucose bharath urement by glucometer (mass/volume)Ordered By: Nazario Torres on 06-15-2023 Glucose [Mass/Vol] 105 mg/dL Normal [facility] Comment on above: Random Glucose Refer ence Range is dependent on time and content of last meal. Glucose of more than 200 mg/dL in a nonstressed, ambulatory subject supports the diagnosis of Diabetes Mellitus. Result Comment: [place] om Glucose Reference Range is dependent on time and content of last meal. Glucose of more than 200 mg/dL in a nonstressed, ambulatory subject supports the diagnosis of Diabetes Mellitus. PERFORMED BY: [facility] [address] [place] [address] PATHOLOGIST [employer] LAURI PATEL M.D. Performed By: #### G CODY #### Point of Care testing , Carbon dioxide, total [Moles /volume] in Serum or PlasmaOrdered By: Nazario Torres on 06-15-2023 CO2 [Moles/Vol] 23.8 mmol/L Normal 21.0-31.0 [facility] Comment on above: Performed By: #### P T, CMP, PTT, HS TROP, CBC, CK, AMM ####[facility] [id number] [place] [id number] [facility] Casts typing in urine sedime nt by light microscopyOrdered By: Nazario Torres on 06-15-2023 Casts LM Nom (Urine sed) None seen [LPF] None Seen [facility] Chloride [Moles/volume] in S bennett or PlasmaOrdered By: Nazario Torres on 06-15-2023 Chloride [Moles/Vol] 109 mmol/L High 98-107 [facility] Comment on above: Performed By: #### P T, CMP, PTT, HS TROP, CBC, CK, AMM ####[facility] [id number] [place] [id number] [facility] Complete Blood Count Auto Di ffon 06-15-2023 Mean Corpuscular HGB Conc 33.6 g/dL Normal 32.0-35.0 [facility] Comment on above: Performed By: #### P T, CMP, PTT, HS TROP, CBC, CK, AMM ####[address] Monocytes/100 WBC (Bld) 17.73 % Normal 0.00-20.00 [facility] Comment on above: Performed By: #### P T, CMP, PTT, HS TROP, CBC, CK, AMM ####[address] NRBC% 0.1 /100{WBC} Normal 0-0.5 [facility] Comment on above: Performed By: #### P T, CMP, PTT, HS TROP, CBC, CK, AMM ####[address] Comprehensive Metabolic Pane jamel 06-15-2023 Albumin [Mass/Vol] 3.9 g/dL Normal 3.5-5.7 [facility] Comment on above: Performed By: #### P T, CMP, PTT, HS TROP, CBC, CK, AMM ####[address] Creatinine Clr Calc Pharmacy 118.81 Normal [facility] Comment on above: Result Comment: PERF ORMED BY: [facility] [address] [place] [address] PATHOLOGIST [employer] LAURI PATEL M.D. Performed By: #### P T, CMP, PTT, HS TROP, CBC, CK, AMM ####[address] GFR/1.73 sq M.predicted MDRD (S/P/Bld) [Vol rate/Area] mL/min/{1.73_m2} Normal [facility] Comment on above: Performed By: #### P T, CMP, PTT, HS TROP, CBC, CK, AMM ####[address] [place] [address] [place] Creatine kinase [Enzymatic a ctivity/volume] in Serum or PlasmaOrdered By: Nazario Torres on 06-15-2023 CK [Catalytic activity/Vol] 68 U/L Normal 30-223 [facility] Comment on above: Performed By: #### P T, CMP, PTT, HS TROP, CBC, CK, AMM ####[facility] [place] [address] Creatinine [Mass/volume] in Serum or PlasmaOrdered By: Nazario Torres on 06-15-2023 Creatinine [Mass/Vol] 0.86 mg/dL Normal 0.60-1.20 [facility] Comment on above: Performed By: #### P T, CMP, PTT, HS TROP, CBC, CK, AMM ####[place] [address] [place] Dipstick and Microscopicon 0 06-15-2023 Appearance (U) Clear Normal Clear [facility] Comment on above: Order Comment: Name Collection Type:: Straight Catheter Performed By: #### C UU, ADDONUAPLUS, UHCG #### [facility] [address] [place] [address] [place] Bacteria,Urine None Seen Normal None Seen [facility] Comment on above: Order Comment: Name Collection Type:: Straight Catheter Performed By: #### C UU, ADDONUAPLUS, UHCG #### [facility] [address] [place] [address] [place] Bilirubin,Urine Negative Normal Negative [facility] Comment on above: Order Comment: Name Collection Type:: Straight Catheter Performed By: #### C UU, ADDONUAPLUS, UHCG #### [facility] [address] [place] [address] [place] Glucose Ql (U) Normal Normal Normal [facility] Comment on above: Order Comment: Name Collection Type:: Straight Catheter Performed By: #### C UU, ADDONUAPLUS, UHCG #### [facility] [address] [place] [address] [place] Hyaline Casts,Urine 0-8 Normal 0-8 [facility] Comment on above: Order Comment: Name Collection Type:: Straight Catheter Performed By: #### C UU, ADDONUAPLUS, UHCG #### [facility] [address] [place] [address] [place] Ketones Ql (U) Negative Normal Negative [facility] Comment on above: Order Comment: Name Collection Type:: Straight Catheter Performed By: #### C UU, ADDONUAPLUS, UHCG #### [address] Leukocyte esterase Test strip Ql (U) 2+ High Negative [facility] Comment on above: Order Comment: Name Collection Type:: Straight Catheter Performed By: #### C UU, ADDONUAPLUS, UHCG #### [place] [address] [place] Nitrite,Urine Negative Normal Negative [facility] Comment on above: Order Comment: Name Collection Type:: Straight Catheter Performed By: #### C UU, ADDONUAPLUS, UHCG #### [place] [id number] [place] Occult Blood,Urine Negative Normal Negative [facility] Comment on above: Order Comment: Name Collection Type:: Straight Catheter Performed By: #### C UU, ADDONUAPLUS, UHCG #### [place] [address] [place] Other Casts,Urine None Seen Normal None Seen [facility] Comment on above: Order Comment: Name Collection Type:: Straight Catheter Performed By: #### C UU, ADDONUAPLUS, UHCG #### [place] [address] [place] Protein,Urine Negative Normal Negative [facility] Comment on above: Order Comment: Name Collection Type:: Straight Catheter Performed By: #### C UU, ADDONUAPLUS, UHCG #### [place] [address] [place] RBC,Urine 1-2 Normal 0-4 [facility] Comment on above: Order Comment: Name Collection Type:: Straight Catheter Performed By: #### C UU, ADDONUAPLUS, UHCG #### [facility] [address] [place] [address] [place] Renal Epithelial Cells,Urine 1-2 High 0-1 [facility] Comment on above: Order Comment: Name Collection Type:: Straight Catheter Performed By: #### C UU, ADDONUAPLUS, UHCG #### [place] [address] [place] Specificy Frederica,Urine 1.016 Normal 1.001-1.030 [facility] Comment on above: Order Comment: Name Collection Type:: Straight Catheter Performed By: #### C UU, ADDONUAPLUS, UHCG #### [place] [address] [place] Squamous Epithelial Cell,Urine 5-9 High 0-2 [facility] Comment on above: Order Comment: Name Collection Type:: Straight Catheter Performed By: #### C UU, ADDONUAPLUS, UHCG #### [facility] [address] [place] [address] [place] Urobilinogen,Urine Normal Normal Normal [facility] Comment on above: Order Comment: Name Collection Type:: Straight Catheter Performed By: #### C UU, ADDONUAPLUS, UHCG #### [facility] [address] [place] [address] [place] WBC,Urine 5-9 High 0-4 [facility] Comment on above: Order Comment: Name Collection Type:: Straight Catheter Performed By: #### C UU, ADDONUAPLUS, UHCG #### [facility] [address] [place] [address] [place] Drug Screen,Urineon 06-15-19 24 Amphetamine Screen,Urine Positive High Negative [facility] Comment on above: Performed By: #### U RDS ####[address] Barbiturate Screen,Urine Negative Normal Negative [facility] Comment on above: Performed By: #### U RDS ####[facility] [address] Benzodiazepines Screen,Urine Negative Normal Negative [facility] Comment on above: Performed By: #### U RDS ####[address] Cannabinoid Screen,Urine Positive High Negative [facility] Comment on above: Result Comment: Thes e are unconfirmed results and should not be used for legal purposes. Drug Cut-Off Concentration: AMPH 1000 ng/mL CHUYITA 200 ng/mL DINO 200 ng/mL COCM 300 ng/mL OP 300 ng/mL PCP 25 ng/mL THC 20 ng/mL PERFORMED BY: [place] [address] PATHOLOGIST [employer] LAURI PATEL M.D. Performed By: #### U RDS ####[address] Cocaine Screen,Urine Positive High Negative [facility] Comment on above: Performed By: #### U RDS ####[address] Opiate Screen,Urine Negative Normal Negative [facility] Comment on above: Performed By: #### U RDS ####[address] Phencyclidine Screen,Urine Negative Normal Negative [facility] Comment on above: Performed By: #### U RDS ####[address] ECG 12 lead ECGon 06-15-2023 ECG 12 lead ECG [facility] [address] [place] [address] Electrocardiograph Report Signed Patient: Tyrone Lim MR#: [id number] : 1985 Acct:[id number] Age/Sex: 38 / F ADM Date: 06/15/23 Loc: ER Room: Type: [facility] ER Attending Dr: Ordering Provider: Nazario Torres [...] axis deviation Confirmed by Nazario TORRES DO ([id number]) on 06/15/2023 6:38:04 PM Referred By: Electronically Signed By:Nazario TORRES DO Transcribed By: MUS Signed By Nazario Torres DO 0 06/15/231837 Normal [facility] ECG 12 lead ECG [facility] [address] [place] [address] Electrocardiograph Report Signed Patient: Tyrone Lim MR#: [id number] : 1985 Acct:[id number] Age/Sex: 38 / F ADM Date: 06/15/23 Loc: ER Room: Type: [facility] ER Attending Dr: Ordering Provider: Nazario Torres [...] Sinus tachycardia Confirmed by Nazario TORRES DO ([id number]) on 06/15/2023 6:34:30 PM Referred By: Electronically Signed By:Nazario TORRES DO Transcribed By: MUS Signed By Nazario Torres DO 0 06/15/231833 Normal [facility] Erythrocyte distribution wid th [Ratio] by Automated countOrdered By: Nazario Torres on 06-15-2023 Erythrocyte distribution width (RBC) [Ratio] 13.9 % Normal 11.9-15.3 [facility] Comment on above: Performed By: #### P T, CMP, PTT, HS TROP, CBC, CK, AMM ####[facility] [id number] Erythrocytes [#/volume] in B lood by Automated countOrdered By: Nazario Torres on 06-15-2023 RBC (Bld) [#/Vol] 3.86 10*6/uL Normal 3.60-5.00 [facility] Comment on above: Performed By: #### P T, CMP, PTT, HS TROP, CBC, CK, AMM ####[facility] [id number] Glucose [Mass/volume] in Ser um or PlasmaOrdered By: Nazario Torres on 06-15-2023 Glucose [Mass/Vol] 107 mg/dL High 70-100 [facility] Comment on above: ADA recommended refe rence rangeRandom Glucose Reference Range is dependent on time and content of last meal. Glucose of more than 200 mg/dL in a nonstressed, ambulatory subject supports the diagnosis of Diabetes Mellitus. Result Comment: [place] om Glucose Reference Range is dependent on time and content of last meal. Glucose of more than 200 mg/dL in a nonstressed, ambulatory subject supports the diagnosis of Diabetes Mellitus. ADA recommended reference range Performed By: #### P T, CMP, PTT, HS TROP, CBC, CK, AMM ####[facility] HCG ( test) IA.rapi d Ql (U)Ordered By: Nazario Torres on 06-15-2023 HCG ( test) Ql (U) Negative [facility] HCG,Urineon 06-15-2023 Beta HCG ( test) Ql (U) Negative Normal [facility] Comment on above: Order Comment: Name Collection Type:: Straight Catheter Result Comment: PERF ORMED BY: [facility] [address] [place] [address] PATHOLOGIST [employer] LAURI PATEL M.D. Performed By: #### C UU, ADDONUAPLUS, CG #### [facility] [address] Hematocrit [Volume Fraction] of Blood by Automated countOrdered By: Nazario Torres on 06-15-2023 Hematocrit (Bld) [Volume fraction] 34.5 % Normal 34.0-46.4 [facility] Comment on above: Performed By: #### P T, CMP, PTT, HS TROP, CBC, CK, AMM ####[place] [address] [place] [id number] [facility] Hemoglobin [Mass/volume] in BloodOrdered By: Nazario Torres on 06-15-2023 Hemoglobin (Bld) [Mass/Vol] 11.6 g/dL Low 11.8-15.4 [facility] Comment on above: Performed By: #### P T, CMP, PTT, HS TROP, CBC, CK, AMM ####[place] [address] [place] [id number] [facility] INR in Platelet poor plasma by Coagulation assayOrdered By: Nazario Torres on 06-15-2023 INR Coag (PPP) [Relative time] 1.1 {INR} Normal [facility] Comment on above: INR Therapeutic Rang [...] with mechanical heart valves: 3 - 4.5 Result Comment: INR Therapeutic Range A) Pre- [...] valves: 3 - 4.5 Performed By: #### P T, CMP, PTT, HS TROP, CBC, CK, AMM ####[facility] [place] [id number] [facility] Ketones Auto test strip (U) [Mass/Vol]Ordered By: Nazario Torres on 06-15-2023 Ketones (U) [Mass/Vol] Negative Negative [facility] Laboratory - UrinalysisOrder ed By: Nazario Torres on 06-15-2023 Hyaline casts LM Ql (Urine sed) 0-8 [LPF] 0-8 [facility] Leukocytes [#/volume] correc london for nucleated erythrocytes in Blood by Automated counOrdered By: Nazario Torres on 06-15-2023 WBC corrected for nucl RBC Auto (Bld) [#/Vol] 5.3 10*3/uL 3.8-11.6 [facility] Leukocytes [#/volume] in Blo od by Automated countOrdered By: Nazario Torres on 06-15-2023 WBC (Bld) [#/Vol] 5.3 10*3/uL Normal 3.8-11.6 [facility] Comment on above: Performed By: #### P T, CMP, PTT, HS TROP, CBC, CK, AMM ####[place] [id number] [facility] Lymphocytes [#/volume] in Bl ood by Automated countOrdered By: Nazario Torres on 06-15-2023 Lymphocytes (Bld) [#/Vol] 3.0 10*3/uL Normal 1.00-4.8 [facility] Comment on above: Performed By: #### P T, CMP, PTT, HS TROP, CBC, CK, AMM ####[place] [id number] [facility] Lymphocytes/100 leukocytes i n Blood by Automated countOrdered By: Nazario Torres on 06-15-2023 Lymphocytes/100 WBC (Bld) 57.0 % Normal . [facility] Comment on above: Performed By: #### P T, CMP, PTT, HS TROP, CBC, CK, AMM ####[place] [id number] [facility] MCH [Entitic mass] by Automa london countOrdered By: Nazario Torres on 06-15-2023 MCH (RBC) [Entitic mass] 30.1 pg Normal 24.7-34.3 [facility] Comment on above: Performed By: #### P T, CMP, PTT, HS TROP, CBC, CK, AMM ####[place] [id number] [facility] MCHC Auto (RBC) [Mass/Vol]Or dered By: Nazario Torres on 06-15-2023 MCHC (RBC) [Mass/Vol] 33.6 g/dL 32.0-35.0 [facility] MCV [Entitic volume] by Auto mated countOrdered By: Nazario Torres on 06-15-2023 MCV (RBC) [Entitic vol] 89.4 fL Normal 80-100 [facility] Comment on above: Performed By: #### P T, CMP, PTT, HS TROP, CBC, CK, AMM ####[facility] [id number] [place] [id number] [facility] Monocyte distribution width [Entitic volume] in Blood by AutomatedOrdered By: Nazario Torres on 06-15-2023 Monocyte distribution width Auto (Bld) [Entitic vol] 17.73 % 0.00-20.00 [facility] Neutrophils [#/volume] in Bl ood by Automated countOrdered By: Nazario Torres on 06-15-2023 Neutrophils (Bld) [#/Vol] 1.7 10*3/uL Low 1.8-7.7 [facility] Comment on above: Performed By: #### P T, CMP, PTT, HS TROP, CBC, CK, AMM ####[facility] [id number] [place] [address] [facility] Nitrite Test strip Ql (U)Ord ered By: Nazario Torres on 06-15-2023 Nitrite Ql (U) Negative Negative [facility] No Panel InformationOrdered By: Nazario Torres on 06-15-2023 Blood Gas Critical Value See comment [facility] Comment on above: Critical Value quintero d on: 06/15/2023 at 13:02 Blood Gas Sample Site Venous [facility] FiO2 21 % [facility] Venous Blood Base Excess -7.8 mmol/L -3.0-3.0 [facility] Venous Blood Oxygen Content 5.8 mmol/L 6.6-9.7 [facility] Venous Blood Oxygen Saturation 84.8 % 73.0-76.0 [facility] Venous Blood Partial Pressure CO2 36.9 mm[Hg] 38.0-50.0 [facility] Venous Blood Partial Pressure O2 53.5 mm[Hg] 35.0-45.0 [facility] Venous Blood pH 7.30 7.32-7.43 [facility] Estimated GFR (CKD-EPI) > 60.0 mL/Min [facility] Creatinine Clearance (Chem 118.81 [facility] Nucleated erythrocytes [Pres ence] in Blood by Automated countOrdered By: Nazario Torres on 06-15-2023 Nucleated RBC Auto Ql (Bld) 0.1 /100{WBC} 0-0.5 [facility] Opiates [Presence] in Urine by Screen methodOrdered By: Nazario Torres on 06-15-2023 Opiates Screen Ql (U) Negative Negative Fir [facility] Partial Thromboplastin Timeo n 06-15-2023 aPTT Coag (Bld) [Time] 30.4 s Normal 25.1-36.5 [facility] Comment on above: Result Comment: A he matocrit value greater than 55% may lead to inaccurate results in coagulation testing. Patients having hematocrit values >55% require a special collection tube for coagulation studies. Please contact the laboratory at [phone] for redraw instructions. PERFORMED BY: [facility] [address] [place] [address] PATHOLOGIST [employer] LAURI PATEL M.D. Performed By: #### P T, CMP, PTT, HS TROP, CBC, CK, AMM ####[facility] [id number] [place] [id number] [facility] Phencyclidine Screen Ql (U)O rdered By: Nazario Torres on 06-15-2023 Phencyclidine Ql (U) Negative Negative [facility] Platelet mean volume [Entiti c volume] in Blood by Automated countOrdered By: Nazario Torres on 06-15-2023 Platelet mean volume (Bld) [Entitic vol] 8.7 fL Normal 6.3-10.7 [facility] Comment on above: Performed By: #### P T, CMP, PTT, HS TROP, CBC, CK, AMM ####[place] [address] [place] [id number] [facility] Platelets [#/volume] in Bloo d by Automated countOrdered By: Nazario Torres on 06-15-2023 Platelets (Bld) [#/Vol] 196 10*3/uL Normal 150-450 [facility] Comment on above: Performed By: #### P T, CMP, PTT, HS TROP, CBC, CK, AMM ####[place] [address] [place] [address] [facility] Potassium [Moles/volume] in Serum or PlasmaOrdered By: Nazario Torres on 06-15-2023 Potassium [Moles/Vol] 3.7 mmol/L Normal 3.5-5.1 [facility] Comment on above: Performed By: #### P T, CMP, PTT, HS TROP, CBC, CK, AMM ####[place] [address] [place] [address] [facility] Protein Auto test strip (U) [Mass/Vol]Ordered By: Nazario Torres on 06-15-2023 Protein (U) [Mass/Vol] Negative Negative [facility] Protein [Mass/volume] in Ser um or PlasmaOrdered By: Nazario Torres on 06-15-2023 Protein [Mass/Vol] 6.6 g/dL Normal 6.4-8.9 [facility] Comment on above: Performed By: #### P T, CMP, PTT, HS TROP, CBC, CK, AMM ####[address] [address] [facility] Prothrombin time (PT)Ordered By: Nazario Torres on 06-15-2023 PT Coag (PPP) [Time] 13.2 s High 9.0-12.9 [facility] Comment on above: A hematocrit value g reater than 55% may lead to inaccurate results in coagulation testing. Patients having hematocrit values >55% require a special collection tube for coagulation studies. Please contact the laboratory at [phone] for redraw instructions. Result Comment: A he matocrit value greater than 55% may lead to inaccurate results in coagulation testing. Patients having hematocrit values >55% require a special collection tube for coagulation studies. Please contact the laboratory at [phone] for redraw instructions. Performed By: #### P T, CMP, PTT, HS TROP, CBC, CK, AMM ####[address] [address] [facility] Serum globulin measurement b y calculation (mass/volume)Ordered By: Nazario Torres on 06-15-2023 Globulin (S) [Mass/Vol] 2.7 g/dL Normal [facility] Comment on above: Performed By: #### P T, CMP, PTT, HS TROP, CBC, CK, AMM ####[place] [address] Serum or plasma albumin/glob ulin mass ratioOrdered By: Nazario Torres on 06-15-2023 Albumin/Globulin [Mass ratio] 1.4 {ratio} [facility] Comment on above: Performed By: #### P T, CMP, PTT, HS TROP, CBC, CK, AMM ####[place] [address] Serum or plasma anion gap de terminationOrdered By: Nazario Torres on 06-15-2023 Anion gap [Moles/Vol] 10.9 mmol/L Normal 6.0-15.0 [facility] Comment on above: Performed By: #### P T, CMP, PTT, HS TROP, CBC, CK, AMM ####[address] Sodium [Moles/volume] in Ser um or PlasmaOrdered By: Nazario Torres on 06-15-2023 Sodium [Moles/Vol] 140 mmol/L Normal 136-145 [facility] Comment on above: Performed By: #### P T, CMP, PTT, HS TROP, CBC, CK, AMM ####[address] Specific gravity Auto test s trip (U) [Rel density]Ordered By: Nazario Torres on 06-15-2023 Specific gravity (U) [Rel density] 1.016 1.001-1.030 [facility] Squamous epithelial cells de tection in urine sediment by light microscopyOrdered By: Nazario Torres on 06-15-2023 Epithelial cells.squamous LM Ql (Urine sed) 5-9 [HPF] 0-2 [facility] Troponin I High Sensitivityo n 06-15-2023 Troponin I High Sensitivity < 2.3 Normal 0.0-15.0 [facility] Comment on above: Result Comment: PERF ORMED BY: [place] [address] PATHOLOGIST [employer] LAURI PATEL M.D. Performed By: #### P T, CMP, PTT, HS TROP, CBC, CK, AMM ####[address] Troponin I.cardiac [Mass/vol ume] in Serum or Plasma by Detection limit <= 0.01 ng/Ordered By: Nazario Torres on 06-15-2023 Troponin I.cardiac DL <= 0.01 ng/mL [Mass/Vol] < 2.3 pg/mL 0.0-15.0 [facility] Urea nitrogen [Mass/volume] in Serum or PlasmaOrdered By: Nazario Torres on 06-15-2023 Urea nitrogen [Mass/Vol] 11 mg/dL Normal 7-25 [facility] Comment on above: Performed By: #### P T, CMP, PTT, HS TROP, CBC, CK, AMM ####[place] [id number] [facility] Urine Cultureon 06-15-2023 Bacteria identified Cx Nom (U) No Growth 2 Days PERFORMED BY: [place] [address] PATHOLOGIST [employer] LAURI PATEL M.D. Normal [facility] Comment on above: Performed By: #### C UU, YEHUDA, CG #### [place] [id number] [facility] Urine bacteria detection by automated methodOrdered By: Nazario Torres on 06-15-2023 Bacteria Auto Ql (U) None seen None Seen [facility] Urine clarity by refractomet ry automatedOrdered By: Nazario Torres on 06-15-2023 Clarity Refractometry automated (U) Clear Clear [facility] Urine glucose measurement by automated test strip (mass/volume)Ordered By: Nazario Torres on 06-15-2023 Glucose Auto test strip (U) [Mass/Vol] Normal mg/dL Normal [facility] Urine hemoglobin detection b y automated test stripOrdered By: Nazario Torres on 06-15-2023 Hemoglobin Auto test strip Ql (U) Negative Negative [facility] Urine leukocyte esterase det ection by automated test stripOrdered By: Nazario Torres on 06-15-2023 Leukocyte esterase Auto test strip Ql (U) 2+ Negative [facility] Urine pH measurement by auto mated test stripOrdered By: Nazairo Torres on 06-15-2023 pH (U) 7.0 [pH] Normal 5.0-9.0 [facility] Comment on above: Order Comment: Name Collection Type:: Straight Catheter Performed By: #### C UU, ADDONUAPLUS, UHCG #### [address] Urine sediment renal epithel ial cell count by microscopy (number/high power field)Ordered By: Nazario Torres on 06-15-2023 Epithelial cells.renal LM.HPF (Urine sed) [#/Area] 1-2 [HPF] 0-1 [facility] Urobilinogen Auto test strip (U) [Mass/Vol]Ordered By: Nazario Torres on 06-15-2023 Urobilinogen (U) [Mass/Vol] Normal mg/dL Normal [facility] Venous Blood GasOrdered By: Nazario Torres on 06-15-2023 CO2 [Moles/Vol] 19.0 mmol/L Low 24.0-29.0 [facility] Comment on above: Performed By: #### V BG #### Point of Care testing , HCO3 (Bld) [Moles/Vol] 17.8 mmol/L Low 23.0-29.0 [facility] Comment on above: Performed By: #### V BG #### Point of Care testing , Venous Blood Gason Respiratory Critical Normal [facility] Comment on above: Result Comment: Crit ical Value called on: 06/15/2023 at 13:02 PERFORMED BY: [place] [address] PATHOLOGIST [employer] LAURI PATEL M.D. Performed By: #### V BG #### Point of Care testing , VBG Base Excess -7.8 mmol/L Low -3.0-3.0 [facility] Comment on above: Performed By: #### V BG #### Point of Care testing , VBG Draw Site Venous Normal [facility] Comment on above: Performed By: #### V BG #### Point of Care testing , VBG Frac Inspired O2 21 % Normal [facility] Comment on above: Performed By: #### V BG #### Point of Care testing , VBG O2 Content 5.8 mmol/L Low 6.6-9.7 [facility] Comment on above: Performed By: #### V BG #### Point of Care testing , VBG Oxygen Saturation 84.8 % High 73.0-76.0 [facility] Comment on above: Performed By: #### V BG #### Point of Care testing , VBG PCO2 36.9 mm[Hg] Low 38.0-50.0 [facility] Comment on above: Performed By: #### V BG #### Point of Care testing , VBG PH Venous PH 7.30 Low 7.32-7.43 [facility] Comment on above: Performed By: #### V BG #### Point of Care testing , VBG PO2 53.5 mm[Hg] High 35.0-45.0 [facility] Comment on above: Performed By: #### V BG #### Point of Care testing , XR chest 2V*on 06-15-2023 XR chest 2V* [facility] [place] [address] XRay Report Signed Patient: Tyrone Lim MR#: [id number] : 1985 Acct:[id number] Age/Sex: 38 / F ADM Date: 06/15/23 [...] Jason Stone M.D.06/15/2023 12:34 PM Dictation Location: RADIO-PC-13 Transcribed By: BRAULIO 06/15/23 1234 Dictated By: Jason Stone II, MD 06/15/23 1233 Signed By: 06/15/23 1234 Normal [facility] ACETAMINOPHENon 06-01-2023 Acetaminophen [Mass/Vol] 6.5 ug/mL Low 10.0-30.0 [facility] Comment on above: Result Comment: Refe rence ranges are for therapeutic limits. Performed By: #### C TRAVIS, 28201-5, 03595-1, 5643-2, CMP, 91903-8, 3298-7, 2157-6, 4024-6, 67231-7, 3040-3 #### [facility] ([id number]) [address] [place] [address] 44827 CBC AND AUTO DIFFon 06-01-19 ABSOLUTE BASOPHIL 0.0 X10E9/L Normal 0.0-0.2 [facility] Comment on above: Performed By: #### C TRAVIS, 09314-2, 90795-5, 5643-2, CMP, 08027- 9, 3298-7, 2157-6, 4024-6, 73461-0, 3040-3 #### [facility] ([id number]) [address] [place] [address] 35491 ABSOLUTE NEUTROPHIL 13.2 X10E9/L High 1.5-6.6 [facility] Comment on above: Performed By: #### C TRAVIS, 32816-7, 49761-9, 5643-2, CMP, 77701- 9, 3298-7, 2157-6, 4024-6, 97222-5, 3040-3 #### [facility] ([id number]) [address] [place] [address] 03918 Basophils/100 WBC (Bld) 0.1 % Normal [facility] Comment on above: Performed By: #### C BCA, 81181-9, 15295-7, 5643-2, CMP, 09208- 9, 3298-7, 2157-6, 4024-6, 70639-9, 3040-3 #### [facility] ([id number]) [address] [place] [address] 58090 Eosinophils (Bld) [#/Vol] 0.0 10*3/uL Normal 0.0-0.4 [facility] Comment on above: Performed By: #### C BCA, 53632-7, 50087-7, 5643-2, CMP, 95536- 9, 3298-7, 2157-6, 4024-6, 75409-1, 3040-3 #### [facility] ([id number]) [address] [place] [address] 51650 Eosinophils/100 WBC (Bld) 0.3 % Normal [facility] Comment on above: Performed By: #### C BCA, 79214-7, 49873-5, 5643-2, CMP, 12352- 9, 3298-7, 2157-6, 4024-6, 42486-6, 3040-3 #### [facility] ([id number]) [address] [place] [address] 29864 Erythrocyte distribution width (RBC) [Ratio] 14.4 % Normal 11.5-15.0 [facility] Comment on above: Performed By: #### C BCA, 78163-6, 11002-3, 5643-2, CMP, 14902- 9, 3298-7, 2157-6, 4024-6, 59581-8, 3040-3 #### [facility] ([id number]) [address] [place] [address] 37753 Hematocrit (Bld) [Volume fraction] 40.1 % Normal 35-47 [facility] Comment on above: Performed By: #### C BCA, 09912-1, 77422-3, 5643-2, CMP, 63500- 9, 3298-7, 2157-6, 4024-6, 20958-0, 3040-3 #### [facility] ([id number]) [address] [place] [address] 89998 Hemoglobin (Bld) [Mass/Vol] 13.4 g/dL Normal 11.7-15.5 [facility] Comment on above: Performed By: #### C BCA, 76501-8, 82974-6, 5643-2, CMP, 00575- 9, 3298-7, 2157-6, 4024-6, 14998-8, 3040-3 #### [facility] ([id number]) [address] [place] [address] 21104 Lymphocytes (Bld) [#/Vol] 1.0 10*3/uL Normal 1.0-3.5 [facility] Comment on above: Performed By: #### C BCA, 80932-2, 82518-4, 5643-2, CMP, 22952- 9, 3298-7, 2157-6, 4024-6, 81166-2, 3040-3 #### [facility] ([id number]) [address] [place] [address] 24250 Lymphocytes/100 WBC (Bld) 6.8 % Normal [facility] Comment on above: Performed By: #### C BCA, 54159-0, 46087-0, 5643-2, CMP, 21877- 9, 3298-7, 2157-6, 4024-6, 55076-5, 3040-3 #### [facility] ([id number]) [address] [place] [address] 41258 MCH (RBC) [Entitic mass] 30.5 pg Normal 27-34 [facility] Comment on above: Performed By: #### C TRAVIS, 78283-3, 11888-4, 5643-2, CMP, 02975- 9, 3298-7, 2157-6, 4024-6, 17665-3, 3040-3 #### [facility] ([id number]) [address] [place] [address] 02815 MCHC (RBC) [Mass/Vol] 33.5 g/dL Normal 32-36 [facility] Comment on above: Performed By: #### C TRAVIS, 39545-4, 81018-8, 5643-2, CMP, 82516- 9, 3298-7, 2157-6, 4024-6, 19390-5, 3040-3 #### [facility] ([id number]) [address] [place] [address] 43177 MCV (RBC) [Entitic vol] 91 fL Normal 80-100 [facility] Comment on above: Performed By: #### C TRAVIS, 65048-8, 63626-8, 5643-2, CMP, 17936- 9, 3298-7, 2157-6, 4024-6, 24417-1, 3040-3 #### [facility] ([id number]) [address] [place] [address] 79884 Monocytes (Bld) [#/Vol] 0.5 10*3/uL Normal 0-0.9 [facility] Comment on above: Performed By: #### C TRAVIS, 88291-7, 77645-8, 5643-2, CMP, 51161- 9, 3298-7, 2157-6, 4024-6, 85732-9, 3040-3 #### [facility] ([id number]) [address] [place] [address] 91877 Monocytes/100 WBC (Bld) 3.7 % Normal [facility] Comment on above: Performed By: #### C BCA, 27780-7, 52609-6, 5643-2, CMP, 75564- 9, 3298-7, 2157-6, 4024-6, 99902-9, 3040-3 #### [facility] ([id number]) [address] [place] [address] [place] [address] Neutrophils/100 WBC (Bld) 89.1 % Normal [facility] Comment on above: Performed By: #### C BCA, 91987-2, 43852-6, 5643-2, CMP, 98369- 9, 3298-7, 2157-6, 4024-6, 49144-3, 3040-3 #### [facility] ([id number]) [address] [place] [address] 68362 Platelet mean volume (Bld) [Entitic vol] 8.3 fL Normal 7-12 [facility] Comment on above: Performed By: #### C BCA, 25220-0, 18233-0, 5643-2, CMP, 08863- 9, 3298-7, 2157-6, 4024-6, 49909-8, 3040-3 #### [facility] ([id number]) [address] [place] [address] 74365 Platelets (Bld) [#/Vol] 249 10*3/uL Normal 150-450 [facility] Comment on above: Performed By: #### C BCA, 08716-5, 92309-7, 5643-2, CMP, 33089- 9, 3298-7, 2157-6, 4024-6, 86284-8, 3040-3 #### [facility] ([id number]) [address] [place] [address] [place] [address] RBC COUNT 4.41 X10E12/L Normal 3.80-5.20 [facility] Comment on above: Performed By: #### C BCA, 13933-0, 24180-9, 5643-2, CMP, 95166- 9, 3298-7, 2157-6, 4024-6, 99698-5, 3040-3 #### [facility] ([id number]) [address] [place] [address] 08445 WBC (Bld) [#/Vol] 14.8 10*3/uL High 4.0-11.0 [facility] Comment on above: Performed By: #### C BCA, 05939-5, 28028-2, 5643-2, CMP, 71240- 9, 3298-7, 2157-6, 4024-6, 33198-7, 3040-3 #### [facility] ([id number]) [address] [place] [address] 87320 CK [Catalytic activity/Vol]o n 06-01-2023 CPK 49 U/L Normal 24-170 [facility] Comment on above: Performed By: #### C BCA, 31833-7, 59071-3, 5643-2, CMP, 83492- 9, 3298-7, 2157-6, 4024-6, 90274-4, 3040-3 #### [facility] ([id number]) [address] [place] [address] [place] [address] COMPREHENSIVE METABOLIC PANE Jamel 06-01-2023 Albumin [Mass/Vol] 4.3 g/dL Normal 3.2-5.3 [facility] Comment on above: Performed By: #### C BCA, 50442-8, 48000-3, 5643-2, CMP, 15332- 9, 3298-7, 2157-6, 4024-6, 40961-0, 3040-3 #### [facility] ([id number]) [address] [place] [address] 35512 ALP [Catalytic activity/Vol] 115 U/L Normal 39-130 [facility] Comment on above: Performed By: #### C BCA, 82806-7, 21527-3, 5643-2, CMP, 60809- 9, 3298-7, 2157-6, 4024-6, 99565-9, 3040-3 #### [facility] ([id number]) [address] [place] [address] 91971 ALT [Catalytic activity/Vol] 37 U/L High 0-31 [facility] Comment on above: Performed By: #### C BCA, 56970-2, 49005-2, 5643-2, CMP, 09605- 9, 3298-7, 2157-6, 4024-6, 90051-4, 3040-3 #### [facility] ([id number]) [address] [place] [address] 43119 Anion gap [Moles/Vol] 10 mmol/L Normal 5-15 [facility] Comment on above: Performed By: #### C BCA, 64188-3, 07700-1, 5643-2, CMP, 04854- 9, 3298-7, 2157-6, 4024-6, 25859-1, 3040-3 #### [facility] ([id number]) [address] [place] [address] 58459 AST [Catalytic activity/Vol] 29 U/L Normal 0-41 [facility] Comment on above: Performed By: #### C BCA, 32261-4, 80584-7, 5643-2, CMP, 76722- 9, 3298-7, 2157-6, 4024-6, 69914-4, 3040-3 #### [facility] ([id number]) [address] [place] [address] 53609 Bilirubin [Mass/Vol] 0.4 mg/dL Normal 0.3-1.2 [facility] Comment on above: Performed By: #### C BCA, 05312-5, 71569-6, 5643-2, CMP, 75957- 9, 3298-7, 2157-6, 4024-6, 90248-4, 3040-3 #### [facility] ([id number]) [address] [place] [address] 64820 Calcium [Mass/Vol] 8.8 mg/dL Normal 8.5-10.5 [facility] Comment on above: Performed By: #### C BCA, 92710-0, 97950-9, 5643-2, CMP, 92292- 9, 3298-7, 2157-6, 4024-6, 03904-0, 3040-3 #### [facility] ([id number]) [address] [place] [address] 09860 Chloride [Moles/Vol] 105 mmol/L Normal 98-109 [facility] Comment on above: Performed By: #### C BCA, 78438-2, 98844-3, 5643-2, CMP, 97899- 9, 3298-7, 2157-6, 4024-6, 79214-8, 3040-3 #### [facility] ([id number]) [address] [place] [address] [place] [address] CO2 [Moles/Vol] 22 mmol/L Normal 22-32 [facility] Comment on above: Performed By: #### C BCA, 35515-1, 99134-8, 5643-2, CMP, 91117- 9, 3298-7, 2157-6, 4024-6, 46045-1, 3040-3 #### [facility] ([id number]) [address] [place] [address] [place] [address] Creatinine [Mass/Vol] 1.23 mg/dL High 0.40-1.00 [facility] Comment on above: Result Comment: METH OD TRACEABLE TO IDMS STANDARD Performed By: #### C BCA, 89760-9, 39309-1, 5643-2, CMP, 63497-6, 3298-7, 2157-6, 4024-6, 20500-0, 3040-3 #### [facility] ([id number]) [address] [place] [address] 93794 GFR/1.73 sq M.predicted among non-blacks MDRD (S/P/Bld) [Vol rate/Area] 58 mL/min/{1.73_m2} Low >59 [facility] Comment on above: Result Comment: Reported eGFR is based on the CKD-EPI 2020 equation that does not use a race coefficient. Performed By: #### C BCA, 08222-3, 94209-2, 5643-2, CMP, 99282-6, 3298-7, 2157-6, 4024-6, 76902-8, 3040-3 #### [facility] ([id number]) [address] [place] [address] 23031 Glucose [Mass/Vol] 274 mg/dL High 65-99 [facility] Comment on above: Performed By: #### C BCA, 08406-0, 59333-7, 5643-2, CMP, 16023- 9, 3298-7, 2157-6, 4024-6, 59764-9, 3040-3 #### [facility] ([id number]) [address] [place] [address] 44480 Potassium [Moles/Vol] 4.8 mmol/L Normal 3.5-5.0 [facility] Comment on above: Performed By: #### C BCA, 25479-9, 34505-0, 5643-2, CMP, 38976- 9, 3298-7, 2157-6, 4024-6, 55319-2, 3040-3 #### [facility] ([id number]) [address] [place] [address] 14325 Protein [Mass/Vol] 8.3 g/dL High 6.0-8.0 [facility] Comment on above: Performed By: #### C BCA, 78733-5, 38885-6, 5643-2, CMP, 01036- 9, 3298-7, 2157-6, 4024-6, 49709-2, 3040-3 #### [facility] ([id number]) [address] [place] [address] 38190 Sodium [Moles/Vol] 137 mmol/L Normal 134-146 [facility] Comment on above: Performed By: #### C BCA, 47137-4, 04435-2, 5643-2, CMP, 28947- 9, 3298-7, 2157-6, 4024-6, 53032-1, 3040-3 #### [facility] ([id number]) [address] [place] [address] 69092 Urea nitrogen [Mass/Vol] 14 mg/dL Normal 5-23 [facility] Comment on above: Performed By: #### C BCA, 78563-9, 25128-8, 5643-2, [facility], 00023- 9, 3298-7, 2157-6, 4024-6, 37352-1, 3040-3 #### [facility] ([id number]) [address] [place] [address] BRAIN WO CONTon CT BRAIN WO [...] Karthik Martinez MD on 06/01/2023 6:05 AM I, Srikanth Hathaway MD have personally reviewed the image(s) and agree with and/or edited the report Finalized by Srikanth Hathaway MD on 06/01/2023 6:[address] [facility] ETHANOLon 06-01-2023 Ethanol [Mass/Vol] mg/dL Normal 0.00-0.08 [facility] Comment on above: Result Comment: This report is intended for use in clinical monitoring or management of patients. Performed By: #### C BCA, 92804-8, 51822-6, 5643-2, CMP, 11753-0, 3298-7, 2157-6, 4024-6, 80355-3, 3040-3 #### [facility] ([id number]) [address] [place] [address] 07750 Glucose Glucometer (BldC) [M ass/Vol]on 06-01-2023 Glucose [Mass/Vol] 258 mg/dL High 65-99 [facility] HCG ( test) IA.rapi d Ql (S)on 06-01-2023 SERUM Negative Normal NEG [facility] Comment on above: Performed By: #### C BCA, 82987-3, 42825-9, 5643-2, CMP, 58309- 9, 3298-7, 2157-6, 4024-6, 74441-0, 3040-3 #### [facility] ([id number]) [address] [place] [address] 21214 LIPASEon 06-01-2023 Lipase [Catalytic activity/Vol] 36 U/L Normal 17-40 [facility] Comment on above: Performed By: #### C BCA, 96797-8, 25765-6, 5643-2, CMP, 74386- 9, 3298-7, 2157-6, 4024-6, 24019-8, 3040-3 #### [facility] ([id number]) [address] [place] [address] 85256 Lactate (P rm) [Moles/Vol]o n 06-01-2023 Lactate [Moles/Vol] 1.4 mmol/L Normal 0.4-2.0 [facility] Comment on above: Performed By: #### C BCA, 14541-0, 45986-8, 5643-2, CMP, 40492- 9, 3298-7, 2157-6, 4024-6, 17491-3, 3040-3 #### [facility] ([id number]) [address] [place] [address] 88438 LACTATE W/REFLEX 3.9 mmol/L High 0.4-2.0 [facility] Comment on above: Performed By: #### C BCA, 94881-0, 26577-6, 5643-2, CMP, 83412- 9, 3298-7, 2157-6, 4024-6, 25489-6, 3040-3 #### [facility] ([id number]) [address] [place] [address] 67271 MAGNESIUMon 06-01-2023 Magnesium [Mass/Vol] 2.0 mg/dL Normal 1.8-2.6 [facility] Comment on above: Performed By: #### C BCA, 46773-8, 47516-4, 5643-2, CMP, 38966- 9, 3298-7, 2157-6, 4024-6, 88050-7, 3040-3 #### [facility] ([id number]) [address] [place] [address] 70731 Salicylates [Mass/Vol]on SALICYLATE <4.0 Normal 2.0-25.0 [facility] Comment on above: Result Comment: Refe rence ranges are for therapeutic limits. Performed By: #### C BCA, 27746-8, 22456-9, 5643-2, CMP, 33992-9, 3298-7, 2157-6, 4024-6, 21139-8, 3040-3 #### [facility] ([id number]) [address] [place] [address] TROPONIN Ion 06-01-2023 Troponin I.cardiac [Mass/Vol] 0.01 ng/mL Normal 0.00-0.04 [facility] Comment on above: Performed By: #### C BCA, 32152-5, 72061-1, 5643-2, CMP, 23429- 9, 3298-7, 2157-6, 4024-6, 58187-2, 3040-3 #### [facility] ([id number]) [address] [place] [address] XR CHEST 1 VWon 06-01-2023 XR CHEST 1 VW XR CHEST 1 VW Clinical history: Aspiration pneumonia Views: 1 Comparison: 08/21/2021 Findings/Impression: 1. No acute infiltrate. No volume loss nor consolidation. There is no pleural effusion, pneumothorax, nor volume loss. Heart and mediastinal structures are unremarkable. Pulmonary vasculature stable. 2. No significant change Finalized by Srikanth Hathaway MD on 06/01/2023 6:[address] [facility] PAP IG, APT HPV RFX 16/18,45 on 04-14-2023 HPV APTIMA Negative Negative [facility] Comment on above: This nucleic acid am plification test detects fourteen high- risk HPV types (16,18,31,33,35,39,45,51,52,56,58,59,66,68) without differentiation. Performed at: - [facility] [id number] [employer] Operator: Korin Hernandez MD, Phone: [phone] Performed at: =G - [facility] [id number] [employer] Operator: Korin Hernandez MD, Phone: [phone] PAP IG (IMAGE GUIDED) Note . [facility] Comment on above: TESTS RESULT FLAG UN ITS REF RANGE LAB Clinician Provided Cytology Information Source.............Cervix;Endocervix No. of containers..01 ThinPrep Vial DIAGNOSIS: 01 NEGATIVE FOR INTRAEPITHELIAL LESION OR MALIGNANCY. Specimen adequacy: 01 Satisfactory for evaluation. Endocervical and/or squamous metaplastic cells (endocervical component) are present. Performed by: 01 Gina Fernandez, Wafer Fabricator ([facility]) . 01 Note: Note 01 The [...] Low,>-Panic High,A-Abnormal,AA-Critical Abnormal Performed at: [address] [facility] [place] [address] Korin Hernandez MD, BRUSH-SPATULA CERVIX ENDOCERVIX [facility] CBC W Auto Differential pane l (Bld)on 04-11-2023 ABSOLUTE BASOPHIL 0.0 [facility] Comment on above: PERFORMED AT [facility] [address],[place] [address] Basophils/100 WBC (Bld) 0.3 % [facility] [...] 34.2 g/dL 32 - 36 g/dL [facility] MCV (RBC) [Entitic vol] 90 fL [...] for nucl RBC Auto (Bld) [#/Vol] 7.1 [facility] XR pre/post mri xrayon 02-23 XR pre/post mri xray [facility] [address] [address] MRI Report Signed Patient: Tyrone Lim MR#: [id number] : 1985 Acct:[id number] Age/Sex: 38 / F ADM Date: 02/23/23 Loc: MR Room: Type: [facility] Attending Dr: Johana HUTCHINSON Copies to: EVANGELINA Israel Ordering Provider: EVANGELINA Israel Date of Service: 02/23/23 MR/MR lumbar spine wo/w con: Z98.1 ([id number]) XR/XR pre/post mri xray: Z98.1 MR lumbar [...] Jason Stone M.D.02/23/2023 5:57 PM Dictation Location: [place] [address] Transcribed By: [facility] 02/23/231756 Dictated By: Jason Stone II, MD 02/23/231743 Signed By: 02/23/231756 Normal [facility] Hepatitis C virus RNA [log u nits/volume] (viral load) in Serum or Plasma by BETITO withOrdered By: Ladarius Pitts on 12-13-2022 HCV RNA BETITO+probe [Log units/Vol] Not detected . [facility] No Panel InformationOrdered By: Ladarius Pitts on 12-13-2022 Hepatitis C RNA (PCR) Interpret See comment . [facility] Comment on above: The quantitative ran ge of this assay is 15 IU/mL to 100million IU/mL.Performed at: [address] [id number] Director: Augusto Lowry MD, Phone: [phone] Anaerobic cultureOrdered By: Berenice Haile on 09-22-2022 Bacteria identified Anaer cx Nom (Unsp spec) No Anaerobes Isolated 3 Days [facility] Bacteria identified Aer cx N om (Unsp spec)Ordered By: Berenice Haile on 09-22-2022 Aerobic Culture Methicillin Resis St aph Aureus [facility] Gram stain for investigation of transfusion reactionOrdered By: Berenice Haile on 09-22-2022 Microscopic observation Gram stain Nom (Unsp spec) [facility] PAP ACOG PANEL 2: 30 to 65on 06-02-2022 . . Normal [facility] Comment on above: Result Comment: Perf ormed at: [facility] Performed By: Issac### V B12LC #### [facility] [address] [address] [address] Drew Castle Age Gdln ACOG Testing 30-65 Normal [facility] Comment on above: Performed By: #### V B12LC #### [facility] [address] [address] [address] Drew Castle DIAGNOSIS: Comment Abnormal [facility] Comment on above: Result Comment: EPIT HELIAL CELL ABNORMALITY. LOW GRADE SQUAMOUS INTRAEPITHELIAL LESION (LSIL). FUNGAL ORGANISMS MORPHOLOGICALLY CONSISTENT WITH CANDICE SPECIES ARE PRESENT. Performed at: WB Performed By: #### V B12LC #### [facility] [address] [address] [address] Drew Castle Electronically signed by: Comment Normal [facility] Comment on above: Result Comment: Liz Bryant MD, Pathologist Performed at: WB Performed By: #### V B12LC #### [facility] [address] [place] [address] Dr. Drew Castle HPV Aptima Negative Normal Negative [facility] Comment on above: Result Comment: This nucleic acid amplification test detects fourteen high-risk HPV types (16,18,31,33,35,39,45,51,52,56,58,59,66,68) without differentiation. Performed at: =G Performed By: #### V B12LC #### [facility] [address] [place] [address] Dr. Drew Castle HPV Genotype Reflex Comment Normal [facility] Comment on above: Result Comment: Crit eria not met, HPV Genotype not performed. Performed at: WB Performed By: #### V B12LC #### [facility] [address] [place] [address] Dr. Drew Castle Methodology: Comment Normal [facility] Comment on above: Result Comment: This liquid based ThinPrep(R) pap test was screened with the use of an image guided system. Performed at: WB Performed By: #### V B12LC #### [facility] [address] [place] [address] Dr. Drew Castle Note: Comment Normal [facility] Comment on above: Result Comment: The Pap smear is a screening test designed to aid in the detection of premalignant and malignant conditions of the uterine cervix. It is not a diagnostic procedure and should not be used as the sole means of detecting cervical cancer. Both false-positive and false-negative reports do occur. . Performed at: WB Performed By: #### V B12LC #### [facility] [address] [place] [address] Dr. Drew Castle Pathologist Provided ICD10 Comment Normal [facility] Comment on above: Result Comment: R87. 612, R87.5 Performed at: WB Performed By: #### V B12LC #### [facility] [address] [place] [address] Dr. Drew Castle Performed by: Comment Normal [facility] Comment on above: Result Comment: Carley Irvin, Wafer Fabricator (ASCP) Performed at: WB Performed By: #### V B12LC #### [facility] [address] [place] [address] Dr. Drew Castle Specimen adequacy: Comment Normal [facility] Comment on above: Result Comment: Sati sfactory for evaluation. Endocervical and/or squamous metaplastic cells (endocervical component) are present. Performed at: WB Performed By: #### V B12LC #### [facility] [address] [place] [address] Dr. Drew Castle VAGINITIS/VAGINOSIS DNA PROB Garry 05-26-2022 Candice species Positive Abnormal Negative [facility] Comment on above: Performed By: #### V B12LC #### [facility] [address] [place] [address] Dr. Drew Castle Gardnerella vaginalis Positive Abnormal Negative [facility] Comment on above: Performed By: #### V B12LC #### [facility] [address] [place] [address] Dr. Drew Castle Trichomonas vaginalis Negative Normal Negative [facility] Comment on above: Performed By: #### V B12LC #### [facility] [address] [place] [address] Dr. Drew Castle CULTURE WOUNDon 01-21-2022 CULTURE WOUND Culture Observations : No growth of aerobes at 48 hours. Culture Observations: No growth of anaerobes at 72 hours. Normal [facility] Comment on above: Performed By: #### W OUNDCX #### [facility] [address] [place] [address] Dr. Drew Castle VITAMIN B12on 08-08-2021 Cobalamin (Vitamin B12) [Mass/Vol] 1189 pg/mL Normal 232-1245 [facility] Comment on above: Performed By: #### V B12LC #### [facility] [address] [place] [address] Dr. Drew Castle CBC AUTO DIFFon 08-06-2021 BASO # 0.0 103/ul Normal 0.0-0.1 [facility] Comment on above: Performed By: #### V B12LC #### [facility] [address] [place] [address] Dr. Drew Castle Basophils/100 WBC (Bld) 0.4 % Normal 0.2-2.0 [facility] Comment on above: Performed By: #### V B12LC #### [facility] [address] [place] [address] Dr. Drew Castle EO # 0.3 103/ul Normal 0.0-0.7 [facility] Comment on above: Performed By: #### V B12LC #### [facility] [address] [place] [address] Dr. Drew Castle Eosinophils/100 WBC (Bld) 6.7 % Normal 0.9-7.0 [facility] Comment on above: Performed By: #### V B12LC #### [facility] [address] [place] [address] Dr. Drew Castle Erythrocyte distribution width (RBC) [Ratio] 13.8 % Normal 11.0-15.0 [facility] Comment on above: Performed By: #### V B12LC #### [facility] [address] [place] [address] Dr. Drew Castle Hematocrit (Bld) [Volume fraction] 37.3 % Normal 36.0-48.0 [facility] Comment on above: Performed By: #### V B12LC #### [facility] [address] [address] [address] Drew Castle Hemoglobin (Bld) [Mass/Vol] 12.0 g/dL Normal 12.0-16.0 [facility] Comment on above: Performed By: #### V B12LC #### [facility] [address] [address] [address] Drew Castle IG # 0.01 10e3/ul Normal 0.00-0.03 [facility] Comment on above: Performed By: #### V B12LC #### [facility] [address] [address] [address] Drew Castle IG % 0.2 % Normal 0.0-0.5 [facility] Comment on above: Performed By: #### V B12LC #### [facility] [address] [address] [address] Drew Castle LYMPH # 2.7 103/ul Normal 1.2-3.8 [facility] Comment on above: Performed By: #### V B12LC #### [facility] [address] [address] [address] Drew Castle Lymphocytes/100 WBC (Bld) 59.4 % Normal 20.5-60.0 [facility] Comment on above: Performed By: #### V B12LC #### [facility] [address] [address] [address] Drew Castle MANUAL DIFF REQ NO Normal [facility] Comment on above: Performed By: #### V B12LC #### [facility] [address] [address] [address] Drew Castle MCH (RBC) [Entitic mass] 30.6 pg Normal 26.7-34.0 [facility] Comment on above: Performed By: #### V B12LC #### [facility] [address] [address] [address] Drew Castle MCHC (RBC) [Mass/Vol] 32.2 g/dL Normal 29.9-35.2 [facility] Comment on above: Performed By: #### V B12LC #### [facility] [address] [address] [address] Drew Castle MCV (RBC) [Entitic vol] 95.2 fL Normal 81.0-99.0 [facility] Comment on above: Performed By: #### V B12LC #### [facility] [address] [address] [address] Drew Castle MONO # 0.4 103/ul Normal 0.3-0.8 [facility] Comment on above: Performed By: #### V B12LC #### [facility] [address] [address] [address] Drew Castle Monocytes/100 WBC (Bld) 8.5 % Normal 1.7-12.0 [facility] Comment on above: Performed By: #### V B12LC #### [facility] [address] [place] [address] Dr. Drew Castle NEUT # 1.1 103/ul Critically low 1.4-6.5 [facility] Comment on above: Performed By: #### V B12LC #### [facility] [address] [place] [address] Dr. Drew Castle Neutrophils/100 WBC (Bld) 24.8 % Critically low 43.0-75.0 [facility] Comment on above: Performed By: #### V B12LC #### [facility] [address] [place] [address] Dr. Drew Castle Platelet mean volume (Bld) [Entitic vol] 11.9 fL Normal 9.5-13.5 [facility] Comment on above: Performed By: #### V B12LC #### [facility] [address] [address] [address] Drew Castle PLT 212 103/ul Normal 150-450 [facility] Comment on above: Performed By: #### V B12LC #### [facility] [address] [address] [address] Drew Castle RBC 3.92 106/ul Critically low 4.20-5.40 [facility] Comment on above: Performed By: #### V B12LC #### [facility] [address] [place] [address] Dr. Drew Castle WBC 4.6 103/ul Normal 4.0-11.0 [facility] Comment on above: Performed By: #### V B12LC #### [facility] [address] [place] [address] Dr. Drew Castle FERRITINon 08-06-2021 Ferritin [Mass/Vol] 24.0 ng/mL Normal 6.2-137.0 [facility] Comment on above: Performed By: #### I GAVINO BARRY, FERR, FT4 #### [facility] [address] [place] [address] Dr. Drew Castle FREE T4on 08-06-2021 Free T4 [Mass/Vol] 0.79 ng/dL Normal 0.76-1.46 [facility] Comment on above: Performed By: #### I GAVINO BARRY, FERR, FT4 #### [facility] [address] [place] [address] Dr. Drew Castle GLYCOHEMOGLOBIN A1Con 2021 ADA RECOMMENDATION SEE BELOW Normal [facility] Comment on above: Result Comment: ADA RECOMMENDED LIMIT 4.0 - 6.0 ADA THERAPEUTIC TARGET < 7.0 ACTION SUGGESTED > 7.0 Performed By: #### A 1C #### [facility] [address] [place] [address] Dr. Drew Castle Glucose [Mass/Vol] 111 mg/dL Normal [facility] Comment on above: Performed By: #### A 1C #### [facility] [address] [place] [address] Dr. Drew Castle HbA1c (Bld) [Mass fraction] 5.5 % Normal 4.5-6.2 [facility] Comment on above: Performed By: #### A 1C #### [facility] [address] [place] [address] Dr. Drew Castle IRONon 08-06-2021 Iron [Mass/Vol] 76.0 ug/dL Normal 50.0-170.0 [facility] Comment on above: Performed By: #### I ASHA, VITAD, FERR, FT4 #### [facility] [address] [address] [address] Drew Castle LIPID PROFILEon 08-06-2021 CHOL-HDL RATIO NORM SEE BELOW Normal [facility] Comment on above: Result Comment: 3.3 - 4.4 LOW RISK 4.4 - 7.1 AVERAGE RISK 7.1 - 11.0 MODERATE RISK >11.0 HIGH RISK Performed By: #### C MP, LIPID, TSH #### [facility] [address] [address] [address] Drew Castle Cholesterol [Mass/Vol] 150 mg/dL Normal <=200 [facility] Comment on above: Performed By: #### C MP, LIPID, TSH #### [facility] [address] [address] [address] Drew Castle Cholesterol in HDL [Mass/Vol] 59 mg/dL Normal 40-60 [facility] Comment on above: Performed By: #### C MP, LIPID, TSH #### [facility] [address] [address] [address] Drew Castle Cholesterol in LDL [Mass/Vol] 63.4 mg/dL Normal [facility] Comment on above: Performed By: #### C MP, LIPID, TSH #### [facility] [address] [address] [address] Drew Castle Cholesterol.total/Cho lesterol in HDL [Mass ratio] 2.5 {ratio} Normal [facility] Comment on above: Performed By: #### C MP, LIPID, TSH #### [facility] [address] [address] [address] Drew Castle HDL NORMAL > or = 60 mg/dl - LO W CARDIOVASCULAR RISK <40 mg/dl - HIGH CARDIOVASCULAR RISK Normal [facility] Comment on above: Performed By: #### C MP, LIPID, TSH #### [facility] [address] [address] [address] Drew Castle LDL CALC NORMAL SEE BELOW Normal [facility] Comment on above: Result Comment: <100 mg/dl OPTIMAL 100 - 129 mg/dl NEAR OR ABOVE OPTIMAL 130 - 159 mg/dl BORDERLINE HIGH 160 - 189 mg/dl HIGH >190 mg/dl VERY HIGH Performed By: #### C MP, LIPID, TSH #### [facility] [address] [place] [address] Dr. Drew Castle Triglyceride [Mass/Vol] 138 mg/dL Normal <=150 [facility] Comment on above: Performed By: #### C MP, LIPID, TSH #### [facility] [address] [place] [address] Dr. Drew Castle VLDL CALC 27.6 mg/dL Normal [facility] Comment on above: Performed By: #### C MP, LIPID, TSH #### [facility] [address] [place] [address] Dr. Drew Castle PROF 14(COMP METB)on 022 Albumin [Mass/Vol] 3.5 g/dL Normal 3.4-5.0 [facility] Comment on above: Performed By: #### C MP, LIPID, TSH #### [facility] [address] [place] [address] Dr. Drew Castle Albumin/Globulin [Mass ratio] 1.1 {ratio} Normal [facility] Comment on above: Performed By: #### C MP, LIPID, TSH #### [facility] [address] [place] [address] Dr. Drew Castle ALP [Catalytic activity/Vol] 61 U/L Normal 46-116 [facility] Comment on above: Performed By: #### C MP, LIPID, TSH #### [facility] [address] [place] [address] Dr. Drew Castle ALT [Catalytic activity/Vol] 29 U/L Normal 14-59 [facility] Comment on above: Performed By: #### C MP, LIPID, TSH #### [facility] [address] [place] [address] Dr. Drew Castle Anion gap [Moles/Vol] 13.9 mmol/L Normal [facility] Comment on above: Performed By: #### C MP, LIPID, TSH #### [facility] [address] [place] [address] Dr. Drwe Castle AST [Catalytic activity/Vol] 22 U/L Normal 15-37 [facility] Comment on above: Performed By: #### C MP, LIPID, TSH #### [facility] [address] [address] [address] Drew Castle Bilirubin [Mass/Vol] 0.4 mg/dL Normal 0.2-1.0 [facility] Comment on above: Performed By: #### C MP, LIPID, TSH #### [facility] [address] [address] [address] Drew Castle Calcium [Mass/Vol] 8.7 mg/dL Normal 8.5-10.1 [facility] Comment on above: Performed By: #### C MP, LIPID, TSH #### [facility] [address] [place] [address] Dr. Drew Castle Chloride [Moles/Vol] 107 mmol/L Normal 98-107 [facility] Comment on above: Performed By: #### C MP, LIPID, TSH #### [facility] [address] [place] [address] Dr. Drew Castle CO2 [Moles/Vol] 24.9 mmol/L Normal 21.0-32.0 [facility] Comment on above: Performed By: #### C MP, LIPID, TSH #### [facility] [address] [place] [address] Dr. Drew Castle Creatinine [Mass/Vol] 0.76 mg/dL Normal 0.55-1.02 [facility] Comment on above: Performed By: #### C MP, LIPID, TSH #### [facility] [address] [place] [address] Dr. Drew Castle EGFR-AF TOGOLESE >60 Normal >=60 [facility] Comment on above: Performed By: #### C MP, LIPID, TSH #### [facility] [address] [place] [address] Dr. Drew Castle EGFR-NON AF TOGOLESE >60 Normal >=60 [facility] Comment on above: Performed By: #### C MP, LIPID, TSH #### [facility] [address] [address] [address] Drew Castle Globulin (S) [Mass/Vol] 3.1 g/dL Normal [facility] Comment on above: Performed By: #### C MP, LIPID, TSH #### [facility] [address] [address] [address] Drew Castle Glucose [Mass/Vol] 95 mg/dL Normal 74-106 [facility] Comment on above: Performed By: #### C MP, LIPID, TSH #### [facility] [address] [place] [address] Dr. Drew Castle Potassium [Moles/Vol] 3.8 mmol/L Normal 3.5-5.1 [facility] Comment on above: Performed By: #### C MP, LIPID, TSH #### [facility] [address] [place] [address] Dr. Drew Castle Protein [Mass/Vol] 6.6 g/dL Normal 6.4-8.2 [facility] Comment on above: Performed By: #### C MP, LIPID, TSH #### [facility] [address] [address] [address] Drew Castle Sodium [Moles/Vol] 142 mmol/L Normal 136-145 [facility] Comment on above: Performed By: #### C MP, LIPID, TSH #### [facility] [address] [place] [address] Dr. Drew Castle Urea nitrogen [Mass/Vol] 16.0 mg/dL Normal 7.0-18.0 [facility] Comment on above: Performed By: #### C MP, LIPID, TSH #### [facility] [address] [place] [address] Dr. Drew Castle Urea nitrogen/Creatinine [Mass ratio] 21.1 mg/mg Normal [facility] Comment on above: Performed By: #### C MP, LIPID, TSH #### [facility] [address] [place] [address] Dr. Drew Castle TSHon 08-06-2021 TSH 2.421 uIU/mL Normal 0.358-3.740 [facility] Comment on above: Performed By: #### C MP, LIPID, TSH #### [facility] [address] [place] [address] Dr. Drew Castle TSH RANGE SEE BELOW Normal [facility] Comment on above: Result Comment: <0.3 4 UIU/ml HYPERTHYROID 0.34-5.60 UIU/ml EUTHYROID >5.60 UIU/ml HYPOTHYROID Performed By: #### C MP, LIPID, TSH #### [facility] [address] [place] [address] Dr. Drew Castle UA RANDOM W/MICROSCOPICon BACTERIA NONE SEEN Normal NONE SEEN [facility] Comment on above: Performed By: #### V B12LC #### [facility] [address] [place] [address] Dr. Drew Castle Bilirubin Ql (U) SMALL Abnormal NEGATIVE [facility] Comment on above: Performed By: #### V B12LC #### [facility] [address] [place] [address] Dr. Drew Castle CAST NONE SEEN Normal NONE SEEN [facility] Comment on above: Performed By: #### V B12LC #### [facility] [address] [place] [address] Dr. Drew Castle Clarity (U) CLOUDY Abnormal CLEAR [facility] Comment on above: Performed By: #### V B12LC #### [facility] [address] [place] [address] Dr. Drew Castle Color (U) DK. YELLOW Normal YELLOW [facility] Comment on above: Performed By: #### V B12LC #### [facility] [address] [place] [address] Dr. Drew Castle Crystals LM Nom (Urine sed) NONE SEEN Normal NONE SEEN [facility] Comment on above: Performed By: #### V B12LC #### [facility] [address] [place] [address] Dr. Drew Castle Epithelial cells LM Ql (Urine sed) RARE Normal NONE SEEN /RARE [facility] Comment on above: Performed By: #### V B12LC #### [facility] [address] [address] [address] Drew Castle Glucose Ql (U) Negative Normal NEGATIVE [facility] Comment on above: Performed By: #### V B12LC #### [facility] [address] [address] [address] Drew Castle Hemoglobin Ql (U) Negative Normal NEGATIVE [facility] Comment on above: Performed By: #### V B12LC #### [facility] [address] [place] [address] Dr. Drew Castle Ketones Ql (U) Negative Normal NEGATIVE [facility] Comment on above: Performed By: #### V B12LC #### [facility] [address] [place] [address] Dr. Drew Castle LEUKOCYTES Negative Normal NEGATIVE [facility] Comment on above: Performed By: #### V B12LC #### [facility] [address] [place] [address] Dr. Drew Castle MUCOUS NONE SEEN Normal NONE SEEN [facility] Comment on above: Performed By: #### V B12LC #### [facility] [address] [place] [address] Dr. Drew Castle Nitrite Ql (U) Negative Normal NEGATIVE [facility] Comment on above: Performed By: #### V B12LC #### [facility] [address] [place] [address] Dr. Drew Castle pH (U) 6.5 [pH] Normal 5-9 [facility] Comment on above: Performed By: #### V B12LC #### [facility] [address] [place] [address] Dr. Drew Castle RBC NONE SEEN Abnormal 0-2 [facility] Comment on above: Performed By: #### V B12LC #### [facility] [address] [place] [address] Dr. Drew Castle SPEC GRAVITY 1.025 Normal 1.005-<=1.02 5 [facility] Comment on above: Performed By: #### V B12LC #### [facility] [address] [place] [address] Dr. Drew Castle UA PROTEIN TRACE Normal NEGATIVE/ TRACE [facility] Comment on above: Performed By: #### V B12LC #### [facility] [address] [place] [address] Dr. Drew Castle Urobilinogen Qn (U) 1.0 {Jeff'U}/dL Normal 0.2 - 1. 0 [facility] Comment on above: Performed By: #### V B12LC #### [facility] [address] [place] [address] Dr. Drew Castle WBC NONE SEEN Normal NONE SEEN [facility] Comment on above: Performed By: #### V B12LC #### [facility] [address] [place] [address] Dr. Drew Castle VITAMIN D 25 OHon 08-06-2021 VIT D 25-OH 45.7 ng/mL Normal [facility] Comment on above: Performed By: #### I ASHA VITJAYA FERR, FT4 #### [facility] [address] [place] [address] Dr. Drew Castle VIT D RANGES SEE BELOW Normal [facility] Comment on above: Result Comment: <20 ng/mL Vit D deficient 20 - <30 ng/mL Vit D insufficient 30 - 100 ng/mL Vit D sufficient >100 ng/mL Potential Toxicity Performed By: #### I ASHA VITAD, FERR, FT4 #### [facility] [address] [place] [address] Dr. Drew Castle Complete Blood Count Auto Di ffon 03-03-2021 Basophils (Bld) [#/Vol] 0.0 10*3/uL 0.0-0.2 PRX Other Basophils/100 WBC (Bld) 0.2 % . PRX Other Eosinophils (Bld) [#/Vol] 0.2 10*3/uL 0.0-0.45 PR[facility] Other Eosinophils/100 WBC (Bld) 2.4 % . PRX Other Erythrocyte distribution width (RBC) [Ratio] 14.0 % 11.9-15.3 PR[facility] Other Hematocrit (Bld) [Volume fraction] 39.2 % 34.0-46.4 PR[facility] Other Hemoglobin (Bld) [Mass/Vol] 13.6 g/dL 11.8-15.4 PR[facility] Other Lymphocytes (Bld) [#/Vol] 2.3 10*3/uL 1.00-4.8 PRX Other Lymphocytes/100 WBC (Bld) 31.0 % . PRX Other MCH (RBC) [Entitic mass] 31.3 pg 24.7-34.3 PRX Other MCH (RBC) [Entitic mass] 34.6 pg 32.0-35.0 PRX Other MCV (RBC) [Entitic vol] 90.4 fL 80-100 PRX Other Monocytes (Bld) [#/Vol] 0.3 10*3/uL 0.0-0.8 PR[facility] Other Monocytes/100 WBC (Bld) 4.7 % . PRX Other Neutrophils (Bld) [#/Vol] 4.5 10*3/uL 1.8-7.7 PRX Other Neutrophils/100 WBC (Bld) 61.7 % . PRX Other Platelet mean volume (Bld) [Entitic vol] 8.3 fL 6.3-10.7 PR[facility] Other Platelets (Bld) [#/Vol] 232 10*3/uL 150-450 PR[facility] Other RBC (Bld) [#/Vol] 4.34 10*6/uL 3.60-5.00 PRX Other WBC (Bld) [#/Vol] 7.3 10*3/uL 3.8-11.6 PR[facility] Other Complete Blood Count Auto Diff 7.3 4.5-11.0 PRX Other Complete Blood Count Auto Diff 0.2 0-0.5 PRX Other Prothrombin Time INRon 03-03 INR Coag (PPP) [Relative time] 1.2 {INR} PRX Other PT Coag (PPP) [Time] 13.3 s 9.0-12.9 Nort [facility] Other Acetaminophen levelOrdered B y: Sai Mary on 12-27-2020 Acetaminophen Level <5 Low 10 - 30 ug/mL [employer] Phone: Interpretation and review of laboratory results Abnormal [facility] [employer] Work Phone: [employer] Work Phone: Blood Gas, VenousOrdered By: Sai Hernandez on 12-27-2020 Manuel Test NOT REPORTED [employer] Phone: Carboxyhemoglobin NOT REPORTED 0.0 - 5.0 % [facility] [facility] Phone: Comment on above: FIO2 NOT REPORTED [facility] Work Phone: HCO3 (Bld) [Moles/Vol] 27.8 mmol/L 24.0 - 30.0 mmol/L [facility] Work Phone: Interpretation and review of laboratory results Abnormal [facility] Work Phone: Methemoglobin NOT REPORTED 0.0 - 1.9 % [employer] Work Phone: Mode NOT REPORTED [facility] Work Phone: Negative Base Excess, Rm NOT REPORTED 0.0 - 2.0 mmol/L [facility] Work Phone: NOTIFICATION NOT REPORTED [facility] Work Phone: NOTIFICATION TIME NOT [...] Work Phone: Text for Respiratory NOT REPORTED [facility] Work Phone: Total Hb NOT REPORTED 12.0 - 16.0 g/dl [facility] Work Phone: Total Rate NOT REPORTED [facility] Work Phone: VT NOT REPORTED [facility] Work Phone: [facility] Work Phone: CBC Auto DifferentialOrdered By: Sai Hernandez on 12-27-2020 [facility] # 0.26 [email or web address] Work Phone: Absolute Immature Granulocyte <0.03 [facility] Work Phone: [facility] Lymph # 1.88 [facility] Work Phone: Absolute [place] # 0.36 [facility] Work Phone: Basophils (Bld) [#/Vol] 10*3/uL [facility] Work Phone: Basophils/100 WBC (Bld) 0 % 0 - 2 % [facility] Work Phone: Differential Type NOT REPORTED [facility] Work Phone: Eosinophils/100 WBC (Bld) 5 % High 1 - 4 % [employer] Phone: Hematocrit (Bld) [Volume fraction] 38.9 % 36.3 - 47.1 % [employer] Phone: Hemoglobin.gastrointe stinal spec 1 Ql (Stl) 12.5 g/dL 11.9 - 15.1 g/dL [facility] Work Phone: Immature granulocytes/100 WBC (Bld) 0 % 0 [facility] Work Phone: Interpretation and review of laboratory results Abnormal [employer] Phone: Lymphocytes/100 WBC (Bld) 38 % 24 - 43 % [facility] Work Phone: MCH (RBC) [Entitic mass] 29.3 pg 25.2 - 33.5 pg [facility] Work Phone: MCHC (RBC) [Mass/Vol] 32.1 g/dL 28.4 - 34.8 g/dL [employer] Phone: MCV (RBC) [Entitic vol] 91.3 fL 82.6 - 102.9 fL [employer] Phone: Monocytes/100 WBC (Bld) 7 % 3 - 12 % [facility] Work Phone: NRBC Automated 0.0 0.0 per 100 WBC [employer] Phone: Platelet distribution width (Bld) [Ratio] 13.3 % 11.8 - 14.4 % [facility] Phone: Platelet Estimate NOT REPORTED [facility] Phone: Platelet mean volume (Bld) [Entitic vol] 10.4 fL 8.1 - 13.5 fL [facility] Phone: Platelets (Bld) [#/Vol] 181 10*3/uL [facility] Work Phone: RBC (Bld) [#/Vol] 4.26 10*6/uL 3.95 - 5.1 1 m/uL [facility] Work Phone: RBC (Bld) [#/Vol] NOT REPORTED [facility] Work Phone: Segmented neutrophils/100 WBC (Bld) 50 % 36 - 65 % [facility] Work Phone: Segs Absolute 2.49 [facility] Work Phone: WBC (Bld) [#/Vol] 5.0 10*3/uL [facility] Work Phone: WBC (Bld) [#/Vol] NOT REPORTED [facility] Work Phone: [facility] Work Phone: Comprehensive Metabolic Pane l w/ Reflex to MGOrdered By: Sai Hernandez on 12-27-2020 Albumin [Mass/Vol] 4.1 g/dL 3.5 - 5.2 g/dL [facility] Phone: Albumin/Globulin [Mass ratio] 1.7 {ratio} [facility] Phone: ALP (Bld) [Catalytic activity/Vol] 92 U/L 35 - 104 U/L [facility] Phone: ALT [Catalytic activity/Vol] 19 U/L 5 - 33 U/L [facility] Phone: Anion gap [Moles/Vol] 13 mmol/L 9 - 17 mmol/L [facility] Phone: AST [Catalytic activity/Vol] 25 U/L <32 [facility] Phone: Bilirubin [Mass/Vol] 0.57 mg/dL 0.3 - 1 .2 mg/dL [facility] Phone: Calcium [Mass/Vol] 9.4 mg/dL 8.6 - 10. 4 mg/dL [facility] Phone: Chloride [Moles/Vol] 101 mmol/L 98 - 10 7 mmol/L [facility] Phone: CO2 [Moles/Vol] 21 mmol/L 20 - 31 mmol/L [facility] Phone: Creatinine [Mass/Vol] 0.73 mg/dL 0.50 - 0.90 mg/dL [facility] Phone: Free PSA/Total PSA [Mass fraction] 6.5 g/dL 6.4 - 8.3 g/dL [facility] Phone: GFR >60 >60 mL/min [facility] Phone: GFR Non- >60 >60 mL/min [facility] Phone: Glucose [Mass/Vol] 104 mg/dL High 70 - 99 mg/dL [facility] Phone: Potassium [Moles/Vol] 4.0 mmol/L 3.7 - 5.3 mmol/L [facility] Work Phone: Sodium [Moles/Vol] 135 mmol/L 135 - 144 mmol/L [facility] Work Phone: Urea nitrogen (BldV) [Mass/Vol] 9 mg/dL 6 - 20 mg/dL [facility] Work Phone: Urea nitrogen/Creatinine (Bld) [Mass ratio] 12 [facility] Work Phone: Drug screen multi urineOrder [...] Interpretation and review of laboratory results Abnormal [facility] Work Phone: MDMA, Urine NOT REPORTED NEGATIVE [facility] Work Phone: Methadone Screen, Urine Negative NEGATIVE [facility] Work Phone: Methamphetamine, Urine Positive Abnormal NEGATIVE [facility] Work Phone: Opiates, Urine Negative NEGATIVE [facility] Work Phone: Oxycodone Screen, Ur Negative NEGATIVE [facility] Work Phone: Phencyclidine, Urine Negative NEGATIVE [facility] Work Phone: Propoxyphene, Urine Negative NEGATIVE [facility] Work Phone: Test Information NOT REPORTED [facility] Work Phone: Tricyclic Antidepressants, Urine Negative NEGATIVE [facility] Phone: Comment on above: Drug screen results are to be used for medical purposes only. All positive results are unconfirmed. Testing for employment or legal uses should be sent to a reference laboratory for confirmation. [facility] Phone: EthanolOrdered By: Sai munson on 12-27-2020 Ethanol [Mass/Vol] mg/dL <10 mg/dL [facility] Phone: Ethanol percent <0.010 <0.010 % [facility] Work Phone: [facility] Phone: Glucose, Whole BloodOrdered By: Sai Hernandez on 12-27-2020 Glucose [Mass/Vol] 75 mg/dL 74 - 100 mg/dL [facility] Phone: [facility] Phone: HCG, Quantitative, Ordered By: Sai Hernandez on 12-27-2020 hCG Quant <1 <5 IU/L [facility] Phone: Comment on above: Non-preg premeno <=5 Postmeno <=8 Male <=3 If HCG results do not concur with clinical observations, additional testing to confirm results is recommended. Elevated results not associated with may be found in patients with other diseases such as tumors of the germ cells (testis, ovaries, etc.), bladder, pancreas, stomach, lungs, and liver. [facility] Phone: Laboratory - Chemistry and C hemistry - challengeOrdered By: Sai Hernandez on 12-27-2020 GFR/1.73 sq M.predicted MDRD (S/P/Bld) [Vol rate/Area] [facility] Phone: Comment on above: Average GFR for 30-3 9 years old: 107 mL/min/1.73sq m Chronic Kidney Disease: <60 mL/min/1.73sq m Kidney failure: <15 mL/min/1.73sq m eGFR calculated using average adult body mass. Additional eGFR calculator available at: http://www.Coquelux.[employer]/multiple_crcl_2012.htm Stage 1: Some kidney damage normal GFR Stage 2: Mild kidney damage GFR 60-89 Stage 3: Moderate kidney damage GFR 30-59 Stage 4: Severe kidney damage GFR 15-29 Stage 5: Severe kidney damage GFR <15 ESRD - chronic treatment by dialysis or transplant No Panel InformationOrdered By: Sai Hernandez on 12-27-2020 Interpretation and review of laboratory results Abnormal [facility] Work Phone: [facility] Work Phone: SalicylateOrdered By: Gonzalez Hernandez on 12-27-2020 Salicylate Lvl <1 Low 3 - 10 mg/dL [facility] Work Phone: Urinalysis, reflex to micros copicOrdered By: Sai Hernandez on 12-27-2020 Bilirubin Urine Negative NEGATIVE [facility] Work Phone: Color, UA Yellow Yellow [facility] Work Phone: Glucose, Ur Negative NEGATIVE [facility] Work Phone: Interpretation and review of laboratory results Abnormal [facility] Work Phone: Ketones Ql (U) Negative NEGATIVE [facility] Work Phone: Leukocyte esterase Test strip Ql (U) Negative NEGATIVE [facility] Work Phone: Nitrite, Urine Negative NEGATIVE [facility] Work Phone: pH, UA 6.0 [facility] Work Phone: Protein, UA Negative NEGATIVE [facility] Work Phone: Specific Frederica, UA <1.005 Low [facility] Work Phone: Turbidity UA Clear Clear [facility] Work Phone: Urinalysis Comments NOT REPORTED [facility] Work Phone: Urine Hgb Negative NEGATIVE [facility] Phone: Urobilinogen, Urine Normal Normal [facility] Phone: [facility] Work Phone: Operative Reporton Operative Report MR#: [id number] [facility] Pt. Name: Tyrone Lim Room #: [...] to interact and give feedback. The x-ray traffic control technician was supervised and instructed to operate [...] 5-inch Andrew spinal needle was inserted using blnv-kcs-fqeklk-of-the-n eedle technique. The needle was advanced into [...] Mckeon MD Date Trans: 07/08/2020 02:30 P/ [id number] Normal [facility] SPINAL PAIN BLOCKon 07-09-19 SPINAL PAIN BLOCK [facility] Department of Radiology [address] [place] [id number] == Patient Name: TYRONE LIM : 1985 Sex: F Age: Race: White Pt. Location: 18 Patient Status: Ordered Date: 07/08/2020 5:00:00 AM Completed Date: 07/08/2020 01:13 PM Requesting Provider: ALEYDA GOMEZ Attending Provider: Report Copy To: Signs & Symptoms: M96.1 Postlaminectomy syndrome, not elsewhere classified I10 History: Comments: [id number] (50) BILAT S1 TFESI #2 Exam: SPINAL PAIN BLOCK == SPINAL PAIN BLOCK 07/08/2020 1:13 PM SIGNS AND SYMPTOMS: M96.1 Postlaminectomy syndrome, not elsewhere classified I10 TECHNOLOGIST COMMENTS:bilateral S1 TFE .34 min. fluoro. time used - Dr. Gomez IMPRESSION: 0.34 minutes of fluoroscopy was provided for Dr. Gomez for an epidural pain block. Millicent FerraroRT-R [employer] Press Tender Electronically signed: ONLY DOCUMENTATION. Transcribed by: [email or web address], User Resident: Electronically Signed by: ONLY DOCUMENTATION @ 07/08/2020 02:14 PM Normal [facility] Comment on above: Order Comment: [id number] (50) BILAT S1 TFESI #2 Operative Reporton Operative Report MR#: [id number] [facility] Pt. Name: Tyrone Lim Room #: [facility] Discharge Date: Birthdate: 1985 OPERATIVE REPORT DATE [...] to interact and give feedback. The x-ray traffic control technician was supervised and instructed to operate [...] 25-gauge, 5-inch andrew needle was inserted using grji-vae-hsgzyw-of-the-n eedle technique. The needle was advanced into [...] P Edited and Electronically Signed by: Aleyda Gmoez M.D. 06/23/2020 02:30 P Aleyda Gomez M.D. I was present for the entire procedure. Date Dict: 06/23/2020/12:38 P/Carla Mckeon MD Date Trans: 06/23/2020 12:38 P/ [id number] Normal [facility] SPINAL PAIN BLOCKon 06-24-19 21 SPINAL PAIN BLOCK [facility] Department of Radiology [address] [place] [id number] == Patient Name: TYRONE LIM : 1985 Sex: F Age: Race: White Pt. Location: 18 Patient Status: Ordered Date: 06/11/2020 5:00:00 AM Completed Date: 06/23/2020 11:44 AM Requesting Provider: ALEYDA GOMEZ Attending Provider: Report Copy To: Signs & Symptoms: M96.1 Postlaminectomy syndrome, not elsewhere classified I10 History: Comments: [id number] (50) BILAT S1 TFESI #1 Exam: SPINAL PAIN BLOCK == SPINAL PAIN BLOCK 06/23/2020 11:44 AM SIGNS AND SYMPTOMS: M96.1 Postlaminectomy syndrome, not elsewhere classified I10 TECHNOLOGIST COMMENTS:Dr. Gomez used .43 min of white fluoro time arti S1 TFE IMPRESSION: 0.43 minutes of fluoroscopy was provided for her Patricia for an epidural pain block. AMBAR Burch [employer] Press Tender Electronically signed: ONLY DOCUMENTATION. Transcribed by: [email or web address], User Resident: Electronically Signed by: ONLY DOCUMENTATION @ 06/23/2020 03:20 PM Normal [facility] Comment on above: Order Comment: [id number] (74) BILAT S1 TFESI #1 MRI LUMBAR SPINE WO CONTRAST on 09-05-2019 MRI LUMBAR SPINE WO CONTRAST [facility] Department of Radiology [address] [place] [phone] == Patient Name: TYRONE LIM : 1985 Sex: F Age: Race: White Pt. Location: 18 Patient Status: D Ordered Date: 08/23/2019 8:55:00 AM Completed Date: 09/05/2019 11:17 AM Requesting Provider: ALEYDA GOMEZ Attending Provider: Report Copy To: Signs & Symptoms: M54.5 Low back pain I10 History: [facility] Auth via [employer] Cover[employer] for CPT 54386 Auth#[id number] Valid 08/28/19-11/26/19 *Sla No to all COVID [...] described. Electronically signed: Arsh Hatfield. Transcribed by: [email or web address], User Resident: Electronically Signed by: ARSH HATFIELD @ 09/06/2019 01:26 PM Normal [facility] Comment on above: Order Comment: Sharona Gipson Operative Reporton 0 Operative Report MR#: [id number] [facility] Pt. Name: Tyrone Lim Room #: [...] to interact and give feedback. The x-ray traffic control technician was supervised and instructed to operate [...] 5-inch Andrew spinal needle was inserted using emjj-zcg-kpnwbj-of-the-n eedle technique. The needle was advanced into [...] bowel or bladder function. Reviewed By: Ronni Armioj MD 08/07/2019 04:15 P Edited and Electronically Signed by: Aleyda Gomez M.D. 08/09/2019 11:57 A Aleyda Gomez M.D. I was present for the entire procedure. Date Dict: 08/07/2019/03:57 P/Ronni Armijo MD Date Trans: 08/07/2019 03:57 P/ [id number] Normal [facility] SPINAL PAIN BLOCKon 08-07-19 20 SPINAL PAIN BLOCK [facility] Department of Radiology [address] [place] [phone] == Patient Name: TYRONE LIM [...] for an epidural pain block. AMBAR Alcazar [employer] Press Tender Electronically signed: ONLY DOCUMENTATION. Transcribed by: [email or web address], User Resident: Electronically Signed by: ONLY DOCUMENTATION @ 08/13/2019 09:18 AM Normal [facility] Comment on above: Order Comment: LEFT S1 TFESI X1 Otheron 2019 Left foot: No acute osseous abnormality. Right foot: Nondisplaced fracture through the 5th metatarsal head without intra-articular extension. Comminuted distal 4th metatarsal fracture with slight impaction and overriding. No joint dislocation is noted. Soft tissue swelling over the forefoot is noted. [facility]: TWO XRA Y VIEWS OF THE [...] tissue swelling over the midfoot is noted. [facility] Sagar, [facility] Incoming Radiant Results From [email or web address] - 2019 3:40 PM EST EXAMINATION: TWO [...] tissue swelling over the forefoot is noted. [place] Basic Metabolic Panelon 12-07 Anion gap [Moles/Vol] 10 mmol/L 9 - 17 mmol/L [place] Bun/Cre Ratio 9 [place] Calcium [Mass/Vol] 9.6 mg/dL 8.6 - 10. 4 mg/dL [place] Chloride [Moles/Vol] 107 mmol/L 98 - 10 7 mmol/L [place] CO2 [Moles/Vol] 22 mmol/L 20 - 31 mmol/L [place] Creatinine [Mass/Vol] 0.89 mg/dL 0.5 - 0.9 mg/dL [place] GFR >60 >60 mL/min [place] GFR Non- >60 >60 mL/min [place] Glucose [Mass/Vol] 75 mg/dL 70 - 99 mg/dL [place] Interpretation and review of laboratory results Abnormal [place] Potassium [Moles/Vol] 5.9 mmol/L High 3.7 - 5.3 mmol/L [place] Sodium [Moles/Vol] 139 mmol/L 135 - 144 mmol/L [place] Urea nitrogen [Mass/Vol] 8 mg/dL 6 - 20 mg/dL [place] C-Reactive Proteinon 019 CRP [Mass/Vol] 3.4 mg/L 0 - 5 mg/L [place], [place] CBC Auto Differentialon 12-07 Basophils (Bld) [#/Vol] 0.03 10*3/uL [place] Basophils/100 WBC (Bld) 0 % 0 - 2 % [place] Differential Type NOT REPORTED [place] Eosinophils (Bld) [#/Vol] 0.39 10*3/uL [place] Eosinophils/100 WBC (Bld) 4 % 1 - 4 % [place] Erythrocyte distribution width (RBC) [Ratio] 12.7 % 11.8 - 14.4 % [place] Hematocrit (Bld) [Volume fraction] 46.9 % 36.3 - 47.1 % [place] Hemoglobin (Bld) [Mass/Vol] 15.6 g/dL High 11.9 - 15.1 g/dL [place] Immature granulocytes (Bld) [#/Vol] 1 % High 0 [place] Immature granulocytes (Bld) [#/Vol] 0.05 10*3/uL [place] Interpretation and review of laboratory results Abnormal [place] Lymphocytes (Bld) [#/Vol] 2.86 10*3/uL [place] Lymphocytes/100 WBC (Bld) 30 % 24 - 43 % [place] MCH (RBC) [Entitic mass] 30.6 pg 25.2 - 33.5 pg [place] MCHC (RBC) [Mass/Vol] 33.3 g/dL 28.4 - 34.8 g/dL [place] MCV (RBC) [Entitic vol] 92.0 fL 82.6 - 102.9 fL [place] Monocytes (Bld) [#/Vol] 0.62 10*3/uL [place] Monocytes/100 WBC (Bld) 7 % 3 - 12 % [place] Platelet mean volume (Bld) [Entitic vol] 11.0 fL 8.1 - 13.5 fL [place] Platelets (Bld) [#/Vol] 218 10*3/uL [place] Platelets (Bld) [#/Vol] NOT REPORTED [place] RBC (Bld) [#/Vol] 5.10 10*6/uL 3.95 - 5.1 1 m/uL [facility] CHYNA RBC morphology finding Nom (Bld) NOT REPORTED [facility] Segmented neutrophils/100 WBC (Bld) 58 % 36 - 65 % [facility] Segs Absolute 5.57 [facility] [place] WBC (Bld) [#/Vol] 9.5 10*3/uL [place] WBC (Bld) [#/Vol] 0.0 10*3/uL 0.0 per 10 0 WBC [place] WBC Morphology NOT REPORTED [facility] D-Dimer, Quantitativeon 12-07 D-Dimer, Quant 0.57 High [facility] [place] Comment on above: Elevated levels of D [...] Interpretation and review of laboratory results Abnormal [facility] [place] MRI LUMBAR SPINE WO CONTRAST on 01-03-2019 Sagar, [facility] Incoming Radiant Results From Con[employer]/Pacs - 01/03/2019 5:32 PM EDT EXAMINATION: MRI [...] and contacting the left L5 nerve root. [place] EXAMINATION: MRI OF THE LUMBAR SPINE [...] likely contacts the left L5 nerve root. [place] Large disc protrusio n within the left L5-S1 foramina causing severe stenosis and contacting the left L5 nerve root. [place] Metabolic Panelon 01-03-2019 GFR/1.73 sq M predicted among non-blacks MDRD (S/P/Bld) [Vol rate/Area] [place] Comment on above: Average GFR for 30-3 9 years old: 107 mL/min/1.73sq m Chronic Kidney Disease: <60 mL/min/1.73sq m Kidney failure: <15 mL/min/1.73sq m eGFR calculated using average adult body mass. Additional eGFR calculator available at: http://www.mBlox/multiple_crcl_2012.htm Stage 1: Some kidney damage normal GFR Stage 2: Mild kidney damage GFR 60-89 Stage 3: Moderate kidney damage GFR 30-59 Stage 4: Severe kidney damage GFR 15-29 Stage 5: Severe kidney damage GFR <15 ESRD - chronic treatment by dialysis or transplant Sedimentation Rateon 019 Sed Rate 5 mm 0 - 20 mm [place] Urinalysis with Microscopico n 01-03-2019 Amorphous, UA 1+ Abnormal None [place], [place] Bacteria, UA TRACE Abnormal None [place], [place] Bilirubin Urine Negative NEGATIVE [place] Casts UA NOT REPORTED /LPF [place], [place] Color, UA YELLOW YELLOW [place] Crystals UA CALCIUM OXALATE Abnormal None /HPF [place] Crystals UA 2 TO 5 Abnormal None /HPF [place] Epithelial Cells UA 2 TO 5 [place] Glucose, Ur Negative NEGATIVE [place] Interpretation and review of laboratory results Abnormal [place] Ketones Ql (U) TRACE Abnormal NEGATIVE [place] Leukocyte esterase Test strip Ql (U) Negative NEGATIVE [place] Mucus, UA NOT REPORTED None [place], [place] Nitrite, Urine Negative NEGATIVE [place] Other Observations UA NOT REPORTED NOT REQ. M [place], [place] pH, UA 5.5 [place] Protein (U) [Mass/Vol] Negative NEGATIVE [place] RBC (U) [#/Vol] None [place] Renal Epithelial, Urine NOT REPORTED 0 /HPF [place] Specific Frederica, UA 1.020 [place], [place] Trichomonas, UA NOT REPORTED None [place], [place] Turbidity UA CLEAR CLEAR [place], [place] Urinalysis Comments NOT REPORTED [place] Urine Hgb Negative NEGATIVE [place] Urobilinogen, Urine ELEVATED Abnormal Normal [place] WBC, UA 0 TO 2 [place] Yeast, UA NOT REPORTED None [place], [place] - [place] XR CHEST STANDARD (2 VW)on No acute cardiopulmo nary pathology. [place] EXAMINATION: TWO XRA Y VIEWS OF [...] structures and soft tissues are grossly intact. [place] Sagar, [facility] Incoming Radiant Results From [employer] - 01/03/2019 4:49 PM EDT EXAMINATION: TWO [...] grossly intact. IMPRESSION: No acute cardiopulmonary pathology. [place] VL DUP LOWER EXTREMITY VENOU S LEFTon 11-15-2018 [facility] l Vascular Lower Extremities DVT Study Procedure Patient Name FISHE Date of Study 11/14/2018 HOLGER Hewitt Date of 1985 Gender Female Age 33 year(s) Race Room Number Corporate ID # [id number] Patient MR # [id number] [employer] FANG Banrejee Interpreting Physician Gino Shepherd Referring Referring Physician Nurse Practitioner Additional Comments Study ordered by Misbah Oreilly DPJoanne Copy to Rosana CHOW. Procedure Type of [...] !Popliteal !Phasic! ! ! + ----+------+------+----- ---+ [facility] [place], [place] Sagar, tanna Incoming Cardio Results From [facility]/ - 11/15/2018 12:52 PM EDT [facility] Vascular Lower Extremities DVT Study Procedure Patient Name JENNA Date of Study 11/14/2018 HOLGER Hewitt Date of 1985 Gender Female Age 33 year(s) Race Room Number Corporate ID # [id number] Patient MR # [id number] Vet [employer] FANG Banerjee Interpreting Physician Gino Shepherd Referring [...] !Phasic! ! ! + ----+------+------+----- --- + [place], [place] Brain Natriuretic Peptideon 11-14-2018 Natriuretic peptide B (Bld) [Mass/Vol] 50 pg/mL <300 [place], [place] Comment on above: Pro-BNP results audrey ot be compared to BNP results. Natriuretic peptide B (Bld) [Mass/Vol] Pro-BNP Reference Range: [place], [place] Comment on above: Rule Out: <300 [place] Zone: Age <50 300-450 Age 50-75 300-900 Age >75 300-1800 Usually represents mild to moderate HF but other cardiopulmonary causes cannot be ruled out. Rule In: Age <50 >450 Age 50-75 >900 Age >75 >1800 CBC Auto Differentialon 11-05 Basophils (Bld) [#/Vol] 0.07 10*3/uL [place] Basophils/100 WBC (Bld) 1 % 0 - 2 % [place] Differential Type NOT REPORTED [place] Eosinophils (Bld) [#/Vol] 0.73 10*3/uL High [place] Eosinophils/100 WBC (Bld) 11 % High 1 - 4 % [place] Erythrocyte distribution width (RBC) [Ratio] 13.2 % 11.8 - 14.4 % [place] Hematocrit (Bld) [Volume fraction] 39.1 % 36.3 - 47.1 % [place] Hemoglobin (Bld) [Mass/Vol] 12.8 g/dL 11.9 - 15.1 g/dL [place] Immature granulocytes (Bld) [#/Vol] 1 % High 0 [place] Immature granulocytes (Bld) [#/Vol] 0.07 10*3/uL [place] Interpretation and review of laboratory results Abnormal [place] Lymphocytes (Bld) [#/Vol] 1.78 10*3/uL [place] Lymphocytes/100 WBC (Bld) 27 % 24 - 43 % [place] MCH (RBC) [Entitic mass] 31.0 pg 25.2 - 33.5 pg [place] MCHC (RBC) [Mass/Vol] 32.7 g/dL 28.4 - 34.8 g/dL [place] MCV (RBC) [Entitic vol] 94.7 fL 82.6 - 102.9 fL [place] Monocytes (Bld) [#/Vol] 0.59 10*3/uL [place] Monocytes/100 WBC (Bld) 9 % 3 - 12 % [place] Morphology Cristiano (Bld) [Interp] Normal [place] Platelet mean volume (Bld) [Entitic vol] 11.2 fL 8.1 - 13.5 fL [place] Platelets (Bld) [#/Vol] NOT REPORTED [place] Platelets (Bld) [#/Vol] 213 10*3/uL [place] RBC (Bld) [#/Vol] 4.13 10*6/uL 3.95 - 5.1 1 m/uL [place] RBC morphology finding Nom (Bld) NOT REPORTED [place] Segmented neutrophils/100 WBC (Bld) 51 % 36 - 65 % [place] Segs Absolute 3.36 [place] WBC (Bld) [#/Vol] 6.6 10*3/uL [place] WBC (Bld) [#/Vol] 0.0 10*3/uL 0.0 per 10 0 WBC [place] WBC Morphology NOT REPORTED [place] Comprehensive Metabolic Pane l w/ Reflex to MGon 11-14-2018 Albumin [Mass/Vol] 3.6 g/dL 3.5 - 5.2 g/dL [place] Albumin/Globulin [Mass ratio] 1.3 {ratio} [place] ALP [Catalytic activity/Vol] 407 U/L High 35 - 104 U/L [place] ALT [Catalytic activity/Vol] 723 U/L High 5 - 33 U/L [place] Anion gap [Moles/Vol] 13 mmol/L 9 - 17 mmol/L [place] AST [Catalytic activity/Vol] 657 U/L High <32 [place] Bilirubin Ql (U) 1.91 mg/dL High 0.3 - 1.2 mg/dL [place] Bun/Cre Ratio 19 [place] Calcium [Mass/Vol] 8.9 mg/dL 8.6 - 10. 4 mg/dL [place] Chloride [Moles/Vol] 103 mmol/L 98 - 10 7 mmol/L [place] CO2 [Moles/Vol] 24 mmol/L 20 - 31 mmol/L [place] Creatinine [Mass/Vol] 0.96 mg/dL High 0.5 - 0.9 mg/dL [place] GFR >60 >60 mL/min [place] GFR Non- >60 >60 mL/min [place] Glucose [Mass/Vol] 71 mg/dL 70 - 99 mg/dL [place] Interpretation and review of laboratory results Abnormal [place] Potassium [Moles/Vol] 4.0 mmol/L 3.7 - 5.3 mmol/L [place] Protein [Mass/Vol] 6.4 g/dL 6.4 - 8.3 g/dL [place] Sodium [Moles/Vol] 140 mmol/L 135 - 144 mmol/L [place] Urea nitrogen [Mass/Vol] 18 mg/dL 6 - 20 mg/dL [place] HIV Screenon 11-14-2018 HIV Ag/Ab NONREACTIVE NONREACTIVE [place], [place] Comment on above: No laboratory eviden ce of HIV infection. If acute HIV infection is suspected, consider testing for HIV-1 RNA. Hepatitis Panel, Acuteon HAV IgM IA Qn (S) NONREACTIVE NONREACTIVE [place] Hep B Core Ab, IgM NONREACTIVE NONREACTIVE [place] Hepatitis B Surface Ag NONREACTIVE NONREACTIVE [place] Hepatitis C Ab REACTIVE Abnormal NONREACTIVE [place] Comment on above: The hepatitis C [...] Interpretation and review of laboratory results Abnormal [place] Metabolic Panelon 11-14-2018 GFR/1.73 sq M predicted among non-blacks MDRD (S/P/Bld) [Vol rate/Area] [place] Comment on above: Average GFR for 30-3 9 years old: 107 mL/min/1.73sq m Chronic Kidney Disease: <60 mL/min/1.73sq m Kidney failure: <15 mL/min/1.73sq m eGFR calculated using average adult body mass. Additional eGFR calculator available at: http://www.Coquelux.com/multiple_crcl_2012.htm Stage 1: Some kidney damage normal GFR Stage 2: Mild kidney damage GFR 60-89 Stage 3: Moderate kidney damage GFR 30-59 Stage 4: Severe kidney damage GFR 15-29 Stage 5: Severe kidney damage GFR <15 ESRD - chronic treatment by dialysis or transplant T. pallidum Abon 11-14-2018 T. pallidum, IgG NONREACTIVE NONREACTIVE [place] Comment on above: T. pallidum antibodies [...] joint. Please correlate with area of pain. [employer], [employer] EXAMINATION: THREE X RAY VIEWS OF [...] spaces appear well maintained. No bony erosions. [facility] [place] Sagar, M[facility] Incoming Radiant Results From [email or web address] - 10/15/2018 10:00 AM EDT EXAMINATION: THREE [...] joint. Please correlate with area of pain. [facility] [place] XR ANKLE LEFT (MIN 3 VIEWS)o n [...] Oh Jr., DO 10/15/18 Final result Normal [facility] XR FOOT LEFT (MIN 3 VIEWS)on 10-15-2018 [...] Oh Jr., DO 10/15/18 Final result Normal [facility] Basic Metabolic Panlon 10-23 Anion gap 3 molar conc 12 mmol/L Normal 9-18 [facility] [place] Comment on above: Performed By: #### C BCDIF, BMP ####[place] [address] [place] [phone] Calcium mass conc 9.1 mg/dL Normal 8.5-10.2 [facility] Comment on above: Performed By: #### C BCDIF, BMP ####[place] [address], [place] [phone] Chloride molar conc 108 mmol/L High 97-105 [facility] Comment on above: Performed By: #### C BCDIF, BMP ####[place] [address], [place] [phone] CO2 molar conc 23 mmol/L Normal 22-30 [facility] [place] Comment on above: Performed By: #### C BCDIF, BMP ####[place] [address], [place] [phone] Creatinine mass conc 0.94 mg/dL Normal 0.58-0.96 [facility] Comment on above: Performed By: #### C BCDIF, BMP ####[facility], [place] [phone] eGFR- Amer. >60 Normal [facility] Comment on above: Performed By: #### C BCDIF, BMP ####[place] [address], [place] [phone] GFR/1.73 sq M predicted among non-blacks MDRD vol rate/area (S/P/Bld) mL/min/{1.73_m2} Normal [facility] [place] Comment on above: Result Comment: eGFR (Estimated [...] GFR. Performed By: #### C BCDIF, BMP ####[facility] [place], [place] [phone] Glucose mass conc 81 mg/dL Normal 74-99 [facility] Comment on above: Result Comment: The [place] Diabetes Association (ADA) provides guidance for cutoff [...] Standards of Medical Care in Diabetes 2016, [place] [employer]. Diabetes Care. 2016.39(Suppl 1). Performed By: #### C BCDIF, BMP ####[facility], [place] [phone] Potassium molar conc 3.8 mmol/L Normal 3.7-5.1 [facility] Comment on above: Performed By: #### C BCDIF, BMP ####[facility] [place], [place] [phone] Sodium molar conc 143 mmol/L Normal 136-144 [facility] Comment on above: Performed By: #### C BCDIF, BMP ####[facility], [place] [phone] Urea nitrogen mass conc 12 mg/dL Normal 7-21 [facility] [place] Comment on above: Performed By: #### C BCDIJanes, BMP ####[place] [address]ClevelAm[place]st, [place] [phone] CBC and Differentialon 10-23 Abs Baso <0.03 Normal <0.11 [facility] [place] Comment on above: Performed By: #### C BCDIF, BMP ####[place] [address] [place] [phone] Abs [place] 0.48 k/uL Normal <0.87 [facility] [place] Comment on above: Performed By: #### C BCLEOPOLOD, BMP ####[place] [address] [place] [phone] Abs Neut 2.26 k/uL Normal 1.45-7.50 [facility] [place] Comment on above: Performed By: #### C BCYESIF, BMP ####[place] [address] [place] [phone] Absolute nRBC <0.01 Normal <0.01 [facility] [place] Comment on above: Performed By: #### C BCYESIF, BMP ####[place] [address] [place] [phone] Basophils/100 WBC Auto (Bld) 0.4 % Normal [facility] [place] Comment on above: Performed By: #### C BCDIF, BMP ####[place] [address] [place] [phone] DTYPE Auto Diff Normal [facility] [place] Comment on above: Performed By: #### C BCDIF, BMP ####[place] [address], [place] [phone] Eosinophils Auto #/vol (Bld) 0.36 10*3/uL Normal <0.46 [facility] [place] Comment on above: Performed By: #### C BCDIF, BMP ####[place] [address] [place] [phone] Eosinophils/100 WBC Auto (Bld) 6.8 % Normal [facility] [place] Comment on above: Performed By: #### C BCDIF, BMP ####[place] [address] [place] [phone] Erythrocyte distribution width Auto Ratio (RBC) 12.3 % Normal 11.5-15.0 [facility] [place] Comment on above: Performed By: #### C BCDIF, BMP ####[place] [address] [place] [phone] Hematocrit Auto Volume Fraction (Bld) 40.2 % Normal 36.0-46.0 [facility] [place] Comment on above: Performed By: #### C BCDIF, BMP ####[place] [address] [place] [phone] Hemoglobin mass conc (Bld) 13.8 g/dL Normal 11.5-15.5 [facility] [place] Comment on above: Performed By: #### C BCDIF, BMP ####[place] [address] [place] [phone] Lymphocytes Auto #/vol (Bld) 2.17 10*3/uL Normal 1.00-4.00 [facility] [place] Comment on above: Performed By: #### C BCDIF, BMP ####[place] [address] [place] [phone] Lymphocytes/100 WBC Auto (Bld) 40.9 % Normal [facility] [place] Comment on above: Performed By: #### C BCDIF, BMP ####[place] [address] [place] [phone] MCH Auto Entitic mass (RBC) 32.5 pG Normal 26.0-34.0 [facility] [place] Comment on above: Performed By: #### C BCDIF, BMP ####[facility], [place] [phone] MCHC Auto mass conc (RBC) 34.3 g/dL Normal 30.5-36.0 [facility] [place] Comment on above: Performed By: #### C BCDIF, BMP ####[place] [address]ClevelBr[address] [place] [phone] MCV Auto Entitic volume (RBC) 94.8 fL Normal 80.0-100.0 [facility] [place] Comment on above: Performed By: #### C BCDIF, BMP ####[place] [address] [place] [phone] Monocytes/100 WBC Auto (Bld) 9.1 % Normal [facility] [place] Comment on above: Performed By: #### C BCDIF, BMP ####[place] [address] [place] [phone] Neutrophils/100 WBC Auto (Bld) 42.8 % Normal [facility] [place] Comment on above: Performed By: #### C BCDIF, BMP ####[place] [address] [place] [phone] NRBCs 0.0 /100 WBC Normal 0 [facility] [place] Comment on above: Performed By: #### C BCDIF, BMP ####[place] [address] [place] [phone] Platelet mean volume Auto Entitic volume (Bld) 10.2 fL Normal 9.0-12.7 [facility] [place] Comment on above: Performed By: #### C BCDIF, BMP ####[place] [address]levelBr[address] [place] [phone] Platelets Auto #/vol (Bld) 189 10*3/uL Normal 150-400 [facility] [place] Comment on above: Performed By: #### C BCDIF, BMP ####[place] [address] [place], [place] [phone] RBC Auto #/vol (Bld) 4.24 10*6/uL Normal 3.90-5.20 [facility] Comment on above: Performed By: #### C BCDIF, BMP ####[facility] [place], [place] [phone] WBC Auto #/vol (Bld) 5.30 10*3/uL Normal 3.70-11.00 [facility] Comment on above: Performed By: #### C BCDIF, BMP ####[address] [phone] ED NOTEon 10-23-2017 ED NOTE HNO ID: [id number]: Jan (Rn) CHADD Westervice: Emergency MedicineAuthor Type: [...] the patient may have. Normal [facility] ED PROV NOTEon 10-23-2017 Protein mass conc HNO ID: [id number]: DB Estrellaervice: Emergency MedicineAuthor Type: PhysicianType: ED Provider NotesFiled: 10/24/2017 6:35 PMNote Text:ED Provider NotePatient Name: Rachelnegritaprashanth Hewitt JackyN: [id number] DATE: 10/23/17HistoryPatient presents with:Abscess: R thigh, Hx [...] notes arepresent to corroborate this story. Including [facility], which wasone of the hospitals she states she visited. We have a summary recordfrom [place], but no recent visits were noted regarding [...] all over the skin. These lesions are vhpmd0dg-6.5cm. There is one on [place]-medial thigh on [...] concerns.SIGNATURE: Long Kiser MD, PGY 1Nichmindi (Res) Margi, HZOznssqqh93/20/18 0148Attending NoteI evaluated the patient and personally [...] Giovani Posada MD10/24/17 1835 Normal [facility] [place] Metabolic Panelon 08-16-2017 Creatinine 142.27 mg/dL Invalid Interpretation Code [facility] Otheron 08-16-2017 S. pyogenes Ag IA Ql (Unsp spec) Negative Invalid Interpretation Code [facility] Urinalysis specialist review Interp Cristiano (Unsp spec) WNL Invalid Interpretation Code [facility] S. pyogenes Ag IA Ql (Unsp spec) Negative Invalid Interpretation Code [facility] Urinalysis specialist review Interp Cristiano (Unsp spec) WNL Invalid Interpretation Code [facility] 6-Monoacetylmorphine (6-NAS) Confirm mass conc (U) Negative Invalid Interpretation Code [address] [facility] Acetaminophen mass conc Negative Invalid Interpretation Code [address] [facility] Alpha hydroxyalprazolam mass conc 182.0 ng/mL Invalid Interpretation Code [address] [facility] Alprazolam mass conc 107.0 ng/mL Invalid Interpretation Code [address] [facility] Amitriptyline mass conc 865.0 ng/mL Invalid Interpretation Code [address] [facility] Amphetamine mass conc 06942 Invalid Interpretation Code [address] [facility] Butalbital Ql Negative Invalid Interpretation Code >[address] [facility] Negative Invalid Interpretation Code [address] [facility] 182 Invalid Interpretation Code [address] [facility] 107 Invalid Interpretation Code [address] [facility] 865 Invalid Interpretation Code [address] [facility] [address] Invalid Interpretation Code 25 [facility] 605 Invalid Interpretation Code 10 [facility] 88400 Invalid Interpretation Code 500 [facility] 2186 Invalid Interpretation Code 200 [facility] 83 Invalid Interpretation Code 50 [facility] 5616 Invalid Interpretation Code 25 [facility] 202 Invalid Interpretation Code 10 [facility] 6615 Invalid Interpretation Code 10 [facility] 601 Invalid Interpretation Code 10 [facility] 281467 Invalid Interpretation Code 500 [facility] 0 Invalid Interpretation Code [facility] 5.5 Invalid Interpretation Code [facility] 1.016 Invalid Interpretation Code [facility] 137 Invalid Interpretation Code 5 [facility] 137.0 ng/mL Invalid Interpretation Code 5 [facility] Urinalysison 08-16-2017 HCG.beta subunit ( test) Ql (U) Negative Invalid Interpretation Code [facility] HCG.beta subunit ( test) Ql (U) Negative Invalid Interpretation Code [facility] AEROBIC CULTUREon 06-09-2017 AEROBIC CULTURE SPECIMEN NUMBER: [id number] [facility] Comment on above: Result Comment: AERO BIC CULTURE REPORT STATUS: FINAL SITE/TYPE: RIGHT PALM STAIN RESULT(S): SMALL AMOUNT CELLULAR DEBRIS NO ORGANISMS SEEN CURRENT ANTIBIOTIC(S):NOT STATED CULTURE RESULT(S): NORMAL SKIN ZENY PRESENT VIRAL CULTURE, NON-RESPIRATO Jordi 06-09-2017 VIRAL CULTURE, NON-RESPIRATORY SEE NOTE Normal NEGATIVE [facility] Comment on above: Result Comment: Cult ure negativePerformed by [employer],[address] [place] [address] chf.Desi Hits, Cezar Ledbetter MD, Lab. Director EFFECTIVE 04/18/2017 CLINICAL CHEMISTRY PLATFORM CHANGES IN MAIN LABORATORY ARE ASSOCIATED WITH REFERENCE RANGE CHANGES FOR A NUMBER OF ANALYTES. PLEASE REVIEW REFERENCE INTERVALS CAREFULLY P [employer]. [address] [place], [place] [address]Laboratory Director: Nnamdi Castro M.D.CLIA No. [id number] CAP Accreditation No. [id number] SURG. PATHOLOGY REPORTon SURGICAL PATHOLOGY REPORT [facility] Comment on above: Result Comment: DIAG NOSISRIGHT PALM, SKIN BIOPSY:STRATUM CORNEUM/KERATINACEOUS CRUSTNON-DIAGNOSTIC [id number]/31/2017 Electronically Signed Out by Renetta Partida M.D.NATURE [...] PLEASE REVIEW REFERENCE INTERVALS CAREFULLY P [facility] [employer]. [address] [place] [id number] Director: Nnamdi Castro M.D.CLIA No. [id number] CAP Accreditation No. [id number] AEROBIC CULTUREon 02-22-2017 AEROBIC CULTURE SPECIMEN NUMBER: [id number] [facility] Comment on above: Result Comment: AERO BIC CULTURE REPORT STATUS: FINAL SITE/TYPE: GROIN STAIN RESULT(S): MODERATE AMOUNT PROTEINACEOUS MATERIAL SMALL AMOUNT SQUAMOUS EPITHELIAL CELLS NO ORGANISMS SEEN CURRENT ANTIBIOTIC(S):NOT STATED CULTURE RESULT(S): NORMAL SKIN ZENY PRESENT NO NEISSERIA GONORRHOEAE ISOLATEDPathology [employer], [employer]. [address] [place] [id number] Director: Jacoby Olson M.D.CLIA No. [id number] CAP Accreditation No. [id number] Urinalysison 02-22-2017 HCG.beta subunit ( test) Ql (U) Negative Invalid Interpretation Code [facility] HCG.beta subunit ( test) Ql (U) Negative Invalid Interpretation Code [facility] Metabolic Panelon 01-06-2017 Hemoglobin A1c/Hemoglobin.total mass fraction (Bld) 5.20 % Invalid Interpretation Code < [address] [facility] Hemoglobin A1c/Hemoglobin.total mass fraction (Bld) 5.20 % Invalid Interpretation Code < [address] [facility] Otheron 01-06-2017 2 Invalid Interpretation Code [facility] 2 Invalid Interpretation Code [facility] Vital Signs Date Time Vital Sign Value Performing Clinician Facility 04-18-2024 12:19-0500 Body height 182.9 cm Jaswant Verhoff PA-C Work Phone: [facility] 04-18-2024 12:19-0500 Body mass index (BMI) [Ratio] 28.35 kg/m2 Jaswant Verhoff PA-C Work Phone: [facility] 04-18-2024 12:19-0500 Body weight 94.8 kg Jaswant Verhoff PA-C Work Phone: [facility] 04-18-2024 12:19-0500 Diastolic blood pressure 84 mm[Hg] Jaswant Verhoff PA-C Work Phone: [facility] 04-18-2024 12:19-0500 Heart rate 98 /min Jaswant Verhoff PA-C Work Phone: [facility] 04-18-2024 12:19-0500 Respiratory rate 18 /min Jaswant Verhoff PA-C Work Phone: [facility] 04-18-2024 12:19-0500 SaO2% (BldA) [Mass fraction] 100 % Jaswant Verhoff PA-C Work Phone: [facility] 04-18-2024 12:19-0500 Systolic blood pressure 115 mm[Hg] Jaswant Verhoff PA-C Work Phone: [facility] 01-10-2024 15:19-0500 Diastolic blood pressure 90 mm[Hg] Yumiko Maryenberg MOBILE CRANE OPERATOR-TONG CARRIER Work Phone: [facility] 01-10-2024 15:19-0500 Heart rate 100 /min Yumiko Nienberg MOBILE CRANE OPERATOR-TONG CARRIER Work Phone: [facility] 01-10-2024 15:19-0500 Respiratory rate 20 /min Yumiko Maryenberg MOBILE CRANE OPERATOR-TONG CARRIER Work Phone: [facility] 01-10-2024 15:19-0500 Systolic blood pressure 140 mm[Hg] Yumiko Elizalde MOBILE CRANE OPERATOR-TONG CARRIER Work Phone: [facility] 10-25-2023 13:00-0400 Body height 182.9 cm Yumiko Elizalde MOBILE CRANE OPERATOR-TONG CARRIER Work Phone: [facility] 10-25-2023 13:00-0400 Body mass index (BMI) [Ratio] 28.4 kg/m2 Yumiko Elizalde MOBILE CRANE OPERATOR-TONG CARRIER Work Phone: [facility] 10-25-2023 13:00-0400 Body weight 95 kg Yumiko Elizalde MOBILE CRANE OPERATOR-TONG CARRIER Work Phone: [facility] 10-25-2023 13:00-0400 Diastolic blood pressure 79 mm[Hg] Yumiko Hernandezenberg MOBILE CRANE OPERATOR-TONG CARRIER Work Phone: [facility] 10-25-2023 13:00-0400 Heart rate 90 /min Yumiko Elizalde MOBILE CRANE OPERATOR-TONG CARRIER Work Phone: [facility] 10-25-2023 13:00-0400 Respiratory rate 18 /min Yumiko Elizalde MOBILE CRANE OPERATOR-TONG CARRIER Work Phone: [facility] 10-25-2023 13:00-0400 SaO2% (BldA) [Mass fraction] 99 % Yumiko Elizalde MOBILE CRANE OPERATOR-TONG CARRIER Work Phone: [facility] 10-25-2023 13:00-0400 Systolic blood pressure 123 mm[Hg] Yumiko Hernandezenberg MOBILE CRANE OPERATOR-TONG CARRIER Work Phone: [facility] 10-06-2023 13:03-0400 Body height 189.23 cm [facility] 10-06-2023 13:03-0400 Body mass index (BMI) [Ratio] 26.3 kg/m2 [facility] 10-06-2023 13:03-0400 Body weight 94.34 kg [facility] 10-06-2023 13:03-0400 Diastolic blood pressure 64 mm[Hg] [facility] 10-06-2023 13:03-0400 Heart rate 111 /min [facility] 10-06-2023 13:03-0400 SaO2% (BldA) [Mass fraction] 98 % [facility] 10-06-2023 13:03-0400 Systolic blood pressure 114 mm[Hg] [facility] 09-30-2023 10:36-0400 Body height 185.4 cm Elayne Luciano MD Work Phone: [facility] 09-30-2023 10:36-0400 Body mass index (BMI) [Ratio] 24.41 kg/m2 Elayne Luciano MD Work Phone: [facility] 09-30-2023 10:36-0400 Body weight 83.92 kg Elayne Luciano MD Work Phone: [facility] 08-26-2023 10:11-0400 Body height 182.9 cm Elayne Luciano MD Work Phone: [facility] 08-26-2023 10:11-0400 Body mass index (BMI) [Ratio] 26.18 kg/m2 Elayne Luciano MD Work Phone: [facility] 08-26-2023 10:11-0400 Body weight 87.54 kg Elayne Luciano MD Work Phone: [facility] 06-15-2023 16:37-0400 Diastolic blood pressure 72 mm[Hg] GENOVEVA Haile Work Phone: [facility] 06-15-2023 16:37-0400 Heart rate 73 /min GENOVEVA Haile Work Phone: [facility] 06-15-2023 16:37-0400 Respiratory rate 16 /min GENOVEVA Haile Work Phone: [facility] 06-15-2023 16:37-0400 SaO2% (BldA) [Mass fraction] 100 % GENOVEVA Haile Work Phone: [facility] 06-15-2023 16:37-0400 Systolic blood pressure 109 mm[Hg] GENOVEVA Haile Work Phone: [facility] 06-15-2023 14:03-0400 Inhaled oxygen flow rate 2 L/min MOBILE CRANE OPERATORToño Haile Work Phone: [facility] 06-15-2023 11:36-0400 Body height 180.34 cm MOBILE CRANE OPERATORToño Haile Work Phone: [facility] 06-15-2023 11:36-0400 Body temperature 98 [degF] GENOVEVA Haile Work Phone: [facility] 06-15-2023 11:36-0400 Body weight 103.87 kg GENOVEVA Haile Work Phone: [facility] 05-31-2023 13:57-0400 Body height 182.9 cm Renetta Elizalde PA Work Phone: [facility] 05-31-2023 13:57-0400 Body mass index (BMI) [Ratio] 26.18 kg/m2 Renetta Elizalde PA Work Phone[facility] 05-31-2023 13:57-0400 Body weight 87.54 kg Renetta Elizalde PA Work Phone: [facility] 05-31-2023 13:57-0400 Diastolic blood pressure 87 mm[Hg] Renetta Elizalde PA Work Phone: [employer] 05-31-2023 13:57-0400 Heart rate 104 /min Renetta Elizalde PA Work Phone: [facility] 05-31-2023 13:57-0400 Respiratory rate 18 /min Renetta Elizalde PA Work Phone: [facility] 05-31-2023 13:57-0400 SaO2% (BldA) [Mass fraction] 99 % Renetta ROJAS Work Phone: [facility] 05-31-2023 13:57-0400 Systolic blood pressure 131 mm[Hg] Renetta ROJAS Work Phone: [facility] [employer] [facility] 05-04-2023 11:44-0500 Body height 182.9 cm Jaswant Verhoff PA-C Work Phone: [facility] [employer] 05-04-2023 11:44-0500 Body mass index (BMI) [Ratio] 28.62 kg/m2 Jaswant Verhoff PA-C Work Phone: [facility] 05-04-2023 11:44-0500 Body weight 95.71 kg Jaswant Verhoff PA-C Work Phone: [facility] 05-04-2023 11:44-0500 Diastolic blood pressure 103 mm[Hg] Jaswant Verhoff PA-C Work Phone: [facility] 05-04-2023 11:44-0500 Heart rate 95 /min Jaswant Verhoff PA-C Work Phone: [facility] 05-04-2023 11:44-0500 Respiratory rate 16 /min Jaswant Verhoff PA-C Work Phone: [facility] 05-04-2023 11:44-0500 SaO2% (BldA) [Mass fraction] 100 % Jaswant Verhoff PA-C Work Phone: [facility] 05-04-2023 11:44-0500 Systolic blood pressure 145 mm[Hg] Jaswant Verhoff PA-C Work Phone: [facility] 03-21-2023 13:30-0500 Body height 188.59 cm Berenice Haile Other [facility] 03-21-2023 13:30-0500 Body mass index (BMI) [Ratio] 27.16 kg/m2 Berenice Haile Other [facility] [employer] Other 03-21-2023 13:30-0500 Body weight 96.62 kg Berenice Haile Other [facility] [employer] Other 03-21-2023 13:30-0500 Body weight 96.61 kg [facility] 03-21-2023 13:30-0500 Diastolic blood pressure 80 mm[Hg] Berenice Haile Other [facility] 03-21-2023 13:30-0500 SaO2% (BldA) [Mass fraction] 100 % Berenice Haile Other [facility] [employer] Other 03-21-2023 13:30-0500 Systolic blood pressure 130 mm[Hg] Berenice Haile Other [facility] 02-23-2023 13:49-0500 Diastolic blood pressure 85 mm[Hg] MOBILE CRANE OPERATORToño Howellacher Work Phone: [facility] 02-23-2023 13:49-0500 Heart rate 91 /min MOBILE CRANE OPERATORToño Howellacher Work Phone: [facility] 02-23-2023 13:49-0500 Respiratory rate 16 /min MOBILE CRANE OPERATORToño Howellacher Work Phone: [facility] 02-23-2023 13:49-0500 SaO2% (BldA) [Mass fraction] 100 % MOBILE CRANE OPERATORToño Howellacher Work Phone: [facility] 02-23-2023 13:49-0500 Systolic blood pressure 128 mm[Hg] GENOVEVA Gracerbacher Work Phone: [facility] 02-23-2023 13:41-0500 Body weight 85.72 kg MOBILE CRANE OPERATORToño Howellacher Work Phone: [facility] 12-13-2022 14:40-0400 Body height 188.59 cm Ladarius Scgraciela Other [employer] Other 12-13-2022 14:40-0400 Body mass index (BMI) [Ratio] 27.67 kg/m2 Ladarius Scovanner Other [employer] Other 12-13-2022 14:40-0400 Body weight 98.43 kg Ladarius Scovanner Other [employer] Other 12-13-2022 14:40-0400 Diastolic blood pressure 60 mm[Hg] Ladarius Scovanner Other [employer] Other 12-13-2022 14:40-0400 Systolic blood pressure 109 mm[Hg] Ladarius Scovanner Other [employer] Other 09-22-2022 14:30-0400 Body height 188.59 cm Berenice Haile Other [employer] Other 09-22-2022 14:30-0400 Body mass index (BMI) [Ratio] 27.67 kg/m2 Berenice Haile Other [employer] Other 09-22-2022 14:30-0400 Body weight 98.43 kg Berenice Haile Other [facility] Other 09-22-2022 14:30-0400 Diastolic blood pressure 70 mm[Hg] Berenice Haile Other [facility] Other 09-22-2022 14:30-0400 Systolic blood pressure 118 mm[Hg] Berenice Haile Other [facility] Other 01-19-2022 16:10-0500 Body height 188.59 cm Liz Billingsley Other [facility] Other 01-19-2022 16:10-0500 Body mass index (BMI) [Ratio] 23.72 kg/m2 Liz Billingsley Other [facility] Other 01-19-2022 16:10-0500 Body temperature 98.1 [degF] Liz Billingsley Other [facility] Other 01-19-2022 16:10-0500 Body weight 84.37 kg Lzi Billingsley Other [facility] Other 01-19-2022 16:10-0500 Diastolic blood pressure 83 mm[Hg] Liz Billingsley Other [facility] Other 01-19-2022 16:10-0500 Respiratory rate 18 /min Liz Billingsley Other [facility] Other 01-19-2022 16:10-0500 SaO2% (BldA) [Mass fraction] 96 % Liz Billingsley Other [facility] Other 01-19-2022 16:10-0500 Systolic blood pressure 128 mm[Hg] Liz Billingsley Other [facility] Other 03-03-2021 16:00-0500 Body height 188.59 cm Agus Madera Other [facility] Other 03-03-2021 16:00-0500 Body mass index (BMI) [Ratio] 25.12 kg/m2 Agus Madera Other [facility] Other 03-03-2021 16:00-0500 Body weight 89.36 kg Agus Madera Other [facility] Other 03-03-2021 16:00-0500 Diastolic blood pressure 72 mm[Hg] Agus Madera Other [facility] Other 03-03-2021 16:00-0500 Systolic blood pressure 100 mm[Hg] Agus Lafleurack Other [facility] Other 12-27-2020 12:33-0400 Diastolic blood pressure 76 mm[Hg] Sai Hernandez MD Work Phone: [facility] Work Phone: 12-27-2020 12:33-0400 Heart rate 73 /min Sai Hernandez MD Work Phone: [facility] Work Phone: 12-27-2020 12:33-0400 Respiratory rate 14 /min Sai Hernandez MD Work Phone: [facility] Work Phone: 12-27-2020 12:33-0400 Systolic blood pressure 121 mm[Hg] Sai Hernandez MD Work Phone: [facility] Work Phone: 12-27-2020 08:22-0400 SaO2% (BldA) [Mass fraction] 98 % Sai Hernandez MD Work Phone: [facility] Work Phone: 12-27-2020 08:20-0400 Body temperature 97.59 [degF] Sai Hernandez MD Work Phone: [facility] Work Phone: 07-10-2020 15:40-0400 Body height 181.61 cm Rosana Alaniz CNP Work Phone: [facility] Work Phone: 07-10-2020 15:40-0400 Body mass index (BMI) [Ratio] 31.4 kg/m2 Rosana Alaniz CNP Work Phone: [facility] Work Phone: 07-10-2020 15:40-0400 Body surface area Derived from formula 2.24 m2 Rosana Alaniz CNP Work Phone: [facility] Work Phone: 07-10-2020 15:40-0400 Body temperature 95.8 [degF] Rosana Alaniz CNP Work Phone: [facility] Work Phone: 07-10-2020 15:40-0400 Body weight 103.51 kg Rosana Alaniz CNP Work Phone: [facility] Work Phone: 07-10-2020 15:40-0400 Diastolic blood pressure 68 mm[Hg] Rosana Alaniz CNP Work Phone: [facility] Work Phone: 07-10-2020 15:40-0400 Heart rate 88 /min Rosana Alaniz CNP Work Phone: [facility] Work Phone: 07-10-2020 15:40-0400 Respiratory rate 18 /min Rosana Alaniz CNP Work Phone: [facility] Work Phone: 07-10-2020 15:40-0400 SaO2% (BldA) [Mass fraction] 99 % Rosana Alaniz CNP Work Phone: [facility] Work Phone: 07-10-2020 15:40-0400 Systolic blood pressure 98 mm[Hg] Rosana Alaniz [facility] Work Phone: [facility] Work Phone: 03-13-2020 11:26-0500 BMI (Body Mass Index) 33.7 kg/m2 [facility] Work Phone: 03-13-2020 11:26-0500 Body weight 111.13 kg [facility] Work Phone: 03-13-2020 11:26-0500 BSA (Body Surface Area) 2.31 m2 [facility] Work Phone: 03-13-2020 11:26-0500 Height 181.61 cm [facility] Work Phone: 05-24-2019 13:37-0400 BP Diastolic 74 mm[Hg] [facility] Work Phone: 05-24-2019 13:37-0400 BP Systolic 110 mm[Hg] [facility] Work Phone: 05-24-2019 13:27-0400 BMI (Body Mass Index) 33.7 kg/m2 [facility] Work Phone: 05-24-2019 13:27-0400 Body Temperature 96.5 [degF] [facility] Work Phone: 05-24-2019 13:27-0400 Body weight 111.13 kg [facility] Work Phone: 05-24-2019 13:27-0400 BSA (Body Surface Area) 2.31 m2 [facility] Work Phone: 05-24-2019 13:27-0400 Height 181.61 cm [facility] Work Phone: 03-08-2019 13:42-0500 BMI (Body Mass Index) 32.4 kg/m2 [facility] Work Phone: 03-08-2019 13:42-0500 Body weight 106.78 kg [facility] Work Phone: 03-08-2019 13:42-0500 BP Diastolic 78 mm[Hg] [facility] Work Phone: 03-08-2019 13:42-0500 BP Systolic 90 mm[Hg] [facility] Work Phone: 03-08-2019 13:42-0500 BSA (Body Surface Area) 2.27 m2 [facility] Work Phone: 03-08-2019 13:42-0500 Height 181.61 cm [facility] Work Phone: 03-08-2019 13:42-0500 Pulse (Heart Rate) 89 /min [facility] Work Phone: 03-08-2019 13:42-0500 Pulse Oximetry 98 % [facility] Work Phone: 02-20-2019 13:50-0500 BMI (Body Mass Index) 34.5 kg/m2 [facility] Work Phone: 02-20-2019 13:50-0500 Body Temperature 99.1 [degF] [facility] Work Phone: 02-20-2019 13:50-0500 Body weight 113.94 kg [facility] Work Phone: 02-20-2019 13:50-0500 BP Diastolic 70 mm[Hg] [facility] Work Phone: 02-20-2019 13:50-0500 BP Systolic 110 mm[Hg] [facility] Work Phone: 02-20-2019 13:50-0500 BSA (Body Surface Area) 2.34 m2 [facility] Work Phone: 02-20-2019 13:50-0500 Height 181.61 cm [facility] Work Phone: 02-20-2019 13:50-0500 Pulse (Heart Rate) 99 /min [facility] Work Phone: 02-20-2019 13:50-0500 Pulse Oximetry 100 % [facility] Work Phone: 02-20-2019 13:50-0500 Respiratory Rate 18 /min [facility] Work Phone: 01-29-2019 15:45-0500 BP Diastolic 59 mm[Hg] [place], [place] 01-29-2019 15:45-0500 BP Systolic 94 mm[Hg] [place] 01-29-2019 15:45-0500 Pulse (Heart Rate) 69 /min [place] 01-29-2019 15:45-0500 Pulse Oximetry 98 % [place] 01-29-2019 15:45-0500 Respiratory Rate 13 /min [place] 01-29-2019 12:25-0500 BMI (Body Mass Index) 29.03 kg/m2 [place] 01-29-2019 12:25-0500 Body Temperature 97.39 [degF] [place], [place] 01-29-2019 12:25-0500 Body weight 99.79 kg [place] 01-29-2019 12:25-0500 Height 185.4 cm [place], [place] 2019 14:08-0500 Body Temperature 98.1 [degF] Sourav Baird [facility], [place] 2019 14:08-0500 BP Diastolic 86 mm[Hg] [facility] [place] [facility] 14:08-0500 BP Systolic 115 mm[Hg] [facility] [place] [facility] 14:08-0500 Pulse (Heart Rate) 95 /min [facility] [place] [facility] 14:08-0500 Pulse [facility]ximetry 99 % [facility] [place] [facility] 14:08-0500 [facility]piratory Rate 16 /[facility] [place] 01-[facility]-2019 08:20-0400 BMI (Body Mass Index) 31.8 kg/m2 [facility] Work Phone: 01-04-2019 08:20-0400 Body Temperature 96.1 [degF] [facility] Work Phone: 01-04-2019 08:20-0400 Body weight 104.78 kg [facility] Work Phone: 01-04-2019 08:20-0400 BP Diastolic 80 mm[Hg] [facility] Work Phone: 01-04-2019 08:20-0400 BP Systolic 106 mm[Hg] [facility] Work Phone: 01-04-2019 08:20-0400 BSA (Body Surface Area) 2.25 m2 [facility] Work Phone: 01-04-2019 08:20-0400 Height 181.61 cm [facility] Work Phone: 01-04-2019 08:20-0400 Pulse (Heart Rate) 69 /min [facility] Work Phone: 01-04-2019 08:20-0400 Pulse Oximetry 98 % [facility] Work Phone: 01-04-2019 08:20-0400 Respiratory Rate 18 /min [facility] Work Phone: 01-03-2019 18:41-0400 BP Diastolic 74 mm[Hg] Elayne Nazario [facility], [place] 01-03-2019 18:41-0400 BP Systolic 90 mm[Hg] Elayne Nazario [facility], [place] 01-03-2019 18:40-0400 Pulse Oximetry 95 % Elayne Nazario [facility], [place] 01-03-2019 13:42-0400 BMI (Body Mass Index) 31.33 kg/m2 Elayne Nazario [facility], [place] 01-03-2019 13:42-0400 Body Temperature 98.01 [degF] Elayne Nazario [facility], [place] 01-03-2019 13:42-0400 Body weight 104.78 kg Elayne Nazario [facility], [place] 01-03-2019 13:42-0400 Pulse (Heart Rate) 71 /min [facility] [place] 01-03-2019 13:42-0400 Respiratory Rate 16 /min Elayne Nazario [facility], [place] 11-20-2018 11:37-0400 BMI (Body Mass Index) 34.8 kg/m2 [facility] Work Phone: 11-20-2018 11:37-0400 Body Temperature 95.4 [degF] [facility] Work Phone: 11-20-2018 11:37-0400 Body weight 114.94 kg [facility] Work Phone: 11-20-2018 11:37-0400 BP Diastolic 80 mm[Hg] [facility] Work Phone: 11-20-2018 11:37-0400 BP Systolic 104 mm[Hg] [facility] Work Phone: 11-20-2018 11:37-0400 BSA (Body Surface Area) 2.34 m2 [facility] Work Phone: 11-20-2018 11:37-0400 Height 181.61 cm [facility] Work Phone: 11-20-2018 11:37-0400 Pulse (Heart Rate) 95 /min [facility] Work Phone: 11-20-2018 11:37-0400 Pulse Oximetry 98 % [facility] Work Phone: 11-20-2018 11:37-0400 Respiratory Rate 18 /min [facility] Work Phone: 11-14-2018 16:21-0400 BMI (Body Mass Index) 34.18 kg/m2 [facility], [place] 11-14-2018 16:21-0400 Body Temperature 99.19 [degF] [facility], [place] 11-14-2018 16:21-0400 Body weight 114.31 kg [facility] , [place] 11-14-2018 16:21-0400 BP Diastolic 63 mm[Hg] [facility] , [place] 11-14-2018 16:21-0400 BP Systolic 108 mm[Hg] [facility] , [place] 11-14-2018 16:21-0400 Pulse (Heart Rate) 87 /min [facility], [place] 11-14-2018 16:21-0400 Pulse Oximetry 99 % [facility] , [place] 11-14-2018 16:21-0400 Respiratory Rate 19 /min [facility], [place] 10-15-2018 09:11-0400 BMI (Body Mass Index) 30.11 kg/m2 [facility], [place] 10-15-2018 09:11-0400 Body Temperature 97.5 [degF] [facility], [place] 10-15-2018 09:11-0400 Body weight 100.7 kg Jennifer Whaley [facility] , [place] 10-15-2018 09:11-0400 BP Diastolic 80 mm[Hg] Jennifer Whaley [facility] , [place] 10-15-2018 09:11-0400 BP Systolic 122 mm[Hg] [facility] [place] 10-15-2018 09:11-0400 Height 182.9 cm Jennifer [facility] , [place] 10-15-2018 09:11-0400 Pulse (Heart Rate) 91 /min [facility] [place] 10-15-2018 09:11-0400 Pulse Oximetry 100 % Jennifer [facility] , [place] 10-15-2018 09:11-0400 Respiratory Rate 16 /[facility] [place] 06-15-2018 15:01-0400 Pulse (Heart Rate) 103 /min [facility] Work Phone: 06-15-2018 15:01-0400 Pulse Oximetry 98 % [facility] Work Phone: 06-15-2018 14:58-0400 BMI (Body Mass Index) 33.7 kg/m2 [facility] Work Phone: 06-15-2018 14:58-0400 Body Temperature 97.1 [degF] [facility] Work Phone: 06-15-2018 14:58-0400 Body weight 111.31 kg [facility] Work Phone: 06-15-2018 14:58-0400 BP Diastolic 86 mm[Hg] [facility] Work Phone: 06-15-2018 14:58-0400 BP Systolic 126 mm[Hg] [facility] Work Phone: 06-15-2018 14:58-0400 BSA (Body Surface Area) 2.31 m2 [facility] Work Phone: 06-15-2018 14:58-0400 Height 181.61 cm Rosana Katty [facility] Work Phone: 06-15-2018 14:58-0400 Pulse (Heart Rate) 18 /min Rosana aKtty [facility] Work Phone: 06-15-2018 14:58-0400 Respiratory Rate 18 /min [facility] Work Phone: 02-16-2018 13:28-0500 BMI (Body Mass Index) 33.99 kg/m2 [facility] 02-16-2018 13:28-0500 Body Temperature 98.3 [degF] [facility] 02-16-2018 13:28-0500 BP Diastolic 65 mm[Hg] [facility] 02-16-2018 13:28-0500 BP Systolic 92 mm[Hg] [facility] 02-16-2018 13:28-0500 BSA (Body Surface Area) 2.38 m2 [facility] 02-16-2018 13:28-0500 Height 181.61 cm [facility] 02-16-2018 13:28-0500 Pulse (Heart Rate) 110 /min Rosana Katty [facility] 02-16-2018 13:28-0500 Pulse Oximetry 99 % [facility] 02-16-2018 13:28-0500 Respiratory Rate 18 /min [facility] 02-16-2018 13:28-0500 Weight 112.12 kg [facility] 02-16-2018 11:28-0500 BMI (Body Mass Index) 34 kg/m2 [facility] Work Phone: 02-16-2018 11:28-0500 Body Temperature 98.3 [degF] [facility] Work Phone: 02-16-2018 11:28-0500 Body weight 112.04 kg [facility] Work Phone: 02-16-2018 11:28-0500 Body weight 112.12 kg [facility] Work Phone: 02-16-2018 11:28-0500 BP Diastolic 65 mm[Hg] [facility] Work Phone: 02-16-2018 11:28-0500 BP Systolic 92 mm[Hg] [facility] Work Phone: 02-16-2018 11:28-0500 BSA (Body Surface Area) 2.32 m2 [facility] Work Phone: 02-16-2018 11:28-0500 Height 181.61 cm [facility] Work Phone: 02-16-2018 11:28-0500 Pulse (Heart Rate) 110 /min [facility] Work Phone: 02-16-2018 11:28-0500 Respiratory Rate 18 /min [facility] Work Phone: 11-24-2017 14:14-0400 BMI (Body Mass Index) 32.32 kg/m2 [facility] 11-24-2017 14:14-0400 Body Temperature 97.4 [degF] [facility] 11-24-2017 14:14-0400 BP Diastolic 80 mm[Hg] [facility] 11-24-2017 14:14-0400 BP Systolic 126 mm[Hg] [facility] 11-24-2017 14:14-0400 BSA (Body Surface Area) 2.32 m2 [facility] 11-24-2017 14:14-0400 Height 181.61 cm [facility] 11-24-2017 14:14-0400 Pulse (Heart Rate) 104 /min [facility] 11-24-2017 14:14-0400 Pulse Oximetry 97 % [facility] 11-24-2017 14:14-0400 Respiratory Rate 20 /min [facility] 11-24-2017 14:14-0400 Weight 106.6 kg [facility] 11-24-2017 13:14-0400 BMI (Body Mass Index) 32.32 kg/m2 [facility] 11-24-2017 13:14-0400 Body Temperature 97.4 [degF] [facility] 11-24-2017 13:14-0400 BP Diastolic 80 mm[Hg] [facility] 11-24-2017 13:14-0400 BP Systolic 126 mm[Hg] [facility] 11-24-2017 13:14-0400 BSA (Body Surface Area) 2.32 m2 [facility] 11-24-2017 13:14-0400 Height 181.61 cm [facility] 11-24-2017 13:14-0400 Pulse (Heart Rate) 104 /min [facility] 11-24-2017 13:14-0400 Pulse Oximetry 97 % [facility] 11-24-2017 13:14-0400 Respiratory Rate 20 /min [facility] 11-24-2017 13:14-0400 Weight 106.6 kg [facility] 11-24-2017 11:14-0400 BMI (Body Mass Index) 32.3 kg/m2 [facility] Work Phone: 11-24-2017 11:14-0400 Body Temperature 97.4 [degF] [facility] Work Phone: 11-24-2017 11:14-0400 Body weight 106.6 kg [facility] Work Phone: 11-24-2017 11:14-0400 BP Diastolic 80 mm[Hg] [facility] Work Phone: 11-24-2017 11:14-0400 BP Systolic 126 mm[Hg] [facility] Work Phone: 11-24-2017 11:14-0400 BSA (Body Surface Area) 2.27 m2 [facility] Work Phone: 11-24-2017 11:14-0400 Height 181.61 cm [facility] Work Phone: 11-24-2017 11:14-0400 Pulse (Heart Rate) 104 /min [facility] Work Phone: 11-24-2017 11:14-0400 Respiratory Rate 20 /min [facility] Work Phone: 08-16-2017 14:15-0400 BMI (Body Mass Index) 30.7 kg/m2 [facility] 08-16-2017 14:15-0400 Body Temperature 97.2 [degF] [facility] 08-16-2017 14:15-0400 BP Diastolic 72 mm[Hg] [facility] 08-16-2017 14:15-0400 BP Systolic 118 mm[Hg] [facility] 08-16-2017 14:15-0400 BSA (Body Surface Area) 2.26 m2 [facility] 08-16-2017 14:15-0400 Height 181.61 cm [facility] 08-16-2017 14:15-0400 Pulse (Heart Rate) 88 /min [facility] 08-16-2017 14:15-0400 Pulse Oximetry 100 % [facility] 08-16-2017 14:15-0400 Respiratory Rate 18 /min [facility] 08-16-2017 14:15-0400 Weight 101.27 kg [facility] 08-16-2017 13:15-0400 BMI (Body Mass Index) 30.7 kg/m2 [facility] 08-16-2017 13:15-0400 Body Temperature 97.2 [degF] [facility] 08-16-2017 13:15-0400 BP Diastolic 72 mm[Hg] [facility] 08-16-2017 13:15-0400 BP Systolic 118 mm[Hg] [facility] 08-16-2017 13:15-0400 BSA (Body Surface Area) 2.26 m2 [facility] 08-16-2017 13:15-0400 Height 181.61 cm [facility] 08-16-2017 13:15-0400 Pulse (Heart Rate) 88 /min [facility] 08-16-2017 13:15-0400 Pulse Oximetry 100 % [facility] 08-16-2017 13:15-0400 Respiratory Rate 18 /min [facility] 08-16-2017 13:15-0400 Weight 101.27 kg [facility] 05-26-2017 14:14-0400 BMI (Body Mass Index) 29.57 kg/m2 [facility] 05-26-2017 14:14-0400 Body Temperature 97.5 [degF] [facility] 05-26-2017 14:14-0400 BP Diastolic 72 mm[Hg] [facility] 05-26-2017 14:14-0400 BP Systolic 118 mm[Hg] [facility] 05-26-2017 14:14-0400 BSA (Body Surface Area) 2.22 m2 [facility] 05-26-2017 14:14-0400 Height 181.61 cm [facility] 05-26-2017 14:14-0400 Pulse (Heart Rate) 100 /min [facility] 05-26-2017 14:14-0400 Pulse Oximetry 98 % [facility] 05-26-2017 14:14-0400 Respiratory Rate 20 /min [facility] 05-26-2017 14:14-0400 Weight 97.52 kg [facility] 05-26-2017 13:14-0400 BMI (Body Mass Index) 29.57 kg/m2 [facility] 05-26-2017 13:14-0400 Body Temperature 97.5 [degF] [facility] 05-26-2017 13:14-0400 BP Diastolic 72 mm[Hg] [facility] 05-26-2017 13:14-0400 BP Systolic 118 mm[Hg] [facility] 05-26-2017 13:14-0400 BSA (Body Surface Area) 2.22 m2 [facility] 05-26-2017 13:14-0400 Height 181.61 cm [facility] 05-26-2017 13:14-0400 Pulse (Heart Rate) 100 /min [facility] 05-26-2017 13:14-0400 Pulse Oximetry 98 % [facility] 05-26-2017 13:14-0400 Respiratory Rate 20 /min [facility] 05-26-2017 13:14-0400 Weight 97.52 kg [facility] 03-29-2017 15:24-0500 BMI (Body Mass Index) 27.69 kg/m2 [facility] 03-29-2017 15:24-0500 Body Temperature 97.5 [degF] [facility] 03-29-2017 15:24-0500 BP Diastolic 80 mm[Hg] [facility] 03-29-2017 15:24-0500 BP Systolic 109 mm[Hg] [facility] 03-29-2017 15:24-0500 BSA (Body Surface Area) 2.15 m2 [facility] 03-29-2017 15:24-0500 Height 181.61 cm [facility] 03-29-2017 15:24-0500 Pulse (Heart Rate) 87 /min [facility] 03-29-2017 15:24-0500 Pulse Oximetry 98 % [facility] 03-29-2017 15:24-0500 Respiratory Rate 18 /min [facility] 03-29-2017 15:24-0500 Weight 91.32 kg [facility] 03-29-2017 14:24-0500 BMI (Body Mass Index) 27.69 kg/m2 [facility] 03-29-2017 14:24-0500 Body Temperature 97.5 [degF] [facility] 03-29-2017 14:24-0500 BP Diastolic 80 mm[Hg] [facility] 03-29-2017 14:24-0500 BP Systolic 109 mm[Hg] [facility] 03-29-2017 14:24-0500 BSA (Body Surface Area) 2.15 m2 [facility] 03-29-2017 14:24-0500 Height 181.61 cm [facility] 03-29-2017 14:24-0500 Pulse (Heart Rate) 87 /min [facility] 03-29-2017 14:24-0500 Pulse Oximetry 98 % [facility] 03-29-2017 14:24-0500 Respiratory Rate 18 /min [facility] 03-29-2017 14:24-0500 Weight 91.32 kg [facility] 02-22-2017 17:03-0500 BMI (Body Mass Index) 26.41 kg/m2 [facility] 02-22-2017 17:03-0500 Body Temperature 98 [degF] [facility] 02-22-2017 17:03-0500 BP Diastolic 87 mm[Hg] [facility] 02-22-2017 17:03-0500 BP Systolic 130 mm[Hg] [facility] 02-22-2017 17:03-0500 BSA (Body Surface Area) 2.1 m2 [facility] 02-22-2017 17:03-0500 Height 181.61 cm [facility] 02-22-2017 17:03-0500 Pulse (Heart Rate) 88 /min [facility] 02-22-2017 17:03-0500 Pulse Oximetry 100 % [facility] 02-22-2017 17:03-0500 Respiratory Rate 20 /min [facility] 02-22-2017 17:03-0500 Weight 87.09 kg [facility] 02-22-2017 16:03-0500 BMI (Body Mass Index) 26.41 kg/m2 [facility] 02-22-2017 16:03-0500 Body Temperature 98 [degF] [facility] 02-22-2017 16:03-0500 BP Diastolic 87 mm[Hg] [facility] 02-22-2017 16:03-0500 BP Systolic 130 mm[Hg] [facility] 02-22-2017 16:03-0500 BSA (Body Surface Area) 2.1 m2 [facility] 02-22-2017 16:03-0500 Height 181.61 cm [facility] 02-22-2017 16:03-0500 Pulse (Heart Rate) 88 /min [facility] 02-22-2017 16:03-0500 Pulse Oximetry 100 % [facility] 02-22-2017 16:03-0500 Respiratory Rate 20 /min [facility] 02-22-2017 16:03-0500 Weight 87.09 kg [facility] 02-01-2017 16:59-0500 BMI (Body Mass Index) 27.23 kg/m2 [facility] 02-01-2017 16:59-0500 Body Temperature 98.1 [degF] [facility] 02-01-2017 16:59-0500 BP Diastolic 81 mm[Hg] [facility] 02-01-2017 16:59-0500 BP Systolic 132 mm[Hg] [facility] 02-01-2017 16:59-0500 BSA (Body Surface Area) 2.13 m2 [facility] 02-01-2017 16:59-0500 Height 181.61 cm [facility] 02-01-2017 16:59-0500 Pulse (Heart Rate) 83 /min [facility] 02-01-2017 16:59-0500 Pulse Oximetry 94 % [facility] 02-01-2017 16:59-0500 Respiratory Rate 18 /min [facility] 02-01-2017 16:59-0500 Weight 89.81 kg [facility] 02-01-2017 15:59-0500 BMI (Body Mass Index) 27.23 kg/m2 [facility] 02-01-2017 15:59-0500 Body Temperature 98.1 [degF] [facility] 02-01-2017 15:59-0500 BP Diastolic 81 mm[Hg] [facility] 02-01-2017 15:59-0500 BP Systolic 132 mm[Hg] [facility] 02-01-2017 15:59-0500 BSA (Body Surface Area) 2.13 m2 Rosana Katty [facility] 02-01-2017 15:59-0500 Height 181.61 cm [facility] 02-01-2017 15:59-0500 Pulse (Heart Rate) 83 /min [facility] 02-01-2017 15:59-0500 Pulse Oximetry 94 % [facility] 02-01-2017 15:59-0500 Respiratory Rate 18 /min [facility] 02-01-2017 15:59-0500 Weight 89.81 kg [facility] 01-06-2017 17:29-0400 BMI (Body Mass Index) 26.41 kg/m2 [facility] 01-06-2017 17:29-0400 Body Temperature 97.9 [degF] [facility] 01-06-2017 17:29-0400 BP Diastolic 81 mm[Hg] [facility] 01-06-2017 17:29-0400 BP Systolic 130 mm[Hg] [facility] 01-06-2017 17:29-0400 BSA (Body Surface Area) 2.1 m2 [facility] 01-06-2017 17:29-0400 Height 181.61 cm [facility] 01-06-2017 17:29-0400 Pulse (Heart Rate) 90 /min [facility] 01-06-2017 17:29-0400 Pulse Oximetry 98 % [facility] 01-06-2017 17:29-0400 Respiratory Rate 18 /min [facility] 01-06-2017 17:29-0400 Weight 87.09 kg [facility] 01-06-2017 16:29-0400 BMI (Body Mass Index) 26.41 kg/m2 [facility] 01-06-2017 16:29-0400 Body Temperature 97.9 [degF] [facility] 01-06-2017 16:29-0400 BP Diastolic 81 mm[Hg] [facility] 01-06-2017 16:29-0400 BP Systolic 130 mm[Hg] [facility] 01-06-2017 16:29-0400 BSA (Body Surface Area) 2.1 m2 [facility] 01-06-2017 16:29-0400 Height 181.61 cm [facility] 01-06-2017 16:29-0400 Pulse (Heart Rate) 90 /min [facility] 01-06-2017 16:29-0400 Pulse Oximetry 98 % [facility] 01-06-2017 16:29-0400 Respiratory Rate 18 /min [facility] 01-06-2017 16:29-0400 Weight 87.09 kg [facility] 12-09-2016 17:31-0400 BMI (Body Mass Index) 26.97 kg/m2 [facility] 12-09-2016 17:31-0400 Body Temperature 99 [degF] [facility] 12-09-2016 17:31-0400 BP Diastolic 62 mm[Hg] [facility] 12-09-2016 17:31-0400 BP Systolic 98 mm[Hg] [facility] 12-09-2016 17:31-0400 BSA (Body Surface Area) 2.12 m2 [facility] 12-09-2016 17:31-0400 Height 181.61 cm [facility] 12-09-2016 17:31-0400 Pulse (Heart Rate) 110 /min [facility] 12-09-2016 17:31-0400 Pulse Oximetry 98 % [facility] 12-09-2016 17:31-0400 Respiratory Rate 18 /min [facility] 12-09-2016 17:31-0400 Weight 88.96 kg [facility] 12-09-2016 16:31-0400 BMI (Body Mass Index) 26.97 kg/m2 [facility] 12-09-2016 16:31-0400 Body Temperature 99 [degF] [facility] 12-09-2016 16:31-0400 BP Diastolic 62 mm[Hg] [facility] 12-09-2016 16:31-0400 BP Systolic 98 mm[Hg] [facility] 10-05-2017 16:31-0400 BSA (Body Surface Area) 2.12 m2 [facility] 12-09-2016 16:31-0400 Height 181.61 cm [facility] 12-09-2016 16:31-0400 Pulse (Heart Rate) 110 /min [facility] 12-09-2016 16:31-0400 Pulse Oximetry 98 % [facility] 12-09-2016 16:31-0400 Respiratory Rate 18 /min [facility] 12-09-2016 16:31-0400 Weight 88.96 kg [facility] Encounters Encounter Date Encounter Type Care Provider Facility Start: 04-25-2024 End: 04-27-2024 Clinisync Result Encounter Blake Anmol DO Work Phone: [facility] External [facility] Unsolicited Start: 04-25-2024 End: 04-27-2024 Clinisync Result Encounter Blake Anmol DO Work Phone: [facility] External [facility] Unsolicited Start: 04-18-2024 End: 04-18-2024 Office outpatient visit 25 minutes Jaswant Hussein PA-C Work Phone: [facility] Comment on above: Stenosis of cervical spine (Primary Dx) Start: 04-18-2024 End: 04-18-[address] [facility] Start: 03-26-2024 End: 03-27-2024 Clinisync Result Encounter Blake Anmol DO Work Phone: [facility] External [facility] Unsolicited Start: 03-26-2024 End: 03-27-2024 Clinisync Result Encounter Blake Anmol DO Work Phone: [facility] External [facility] Unsolicited Start: 03-16-2024 End: 03-16-[address] [facility] Start: 03-13-2024 End: 03-13-2024 Clinisync Result Encounter Generic External Data Provider [facility] External [facility] Unsolicited Start: 03-13-2024 End: 03-13-2024 Clinisync Result Encounter Generic External Data Provider [facility] External [facility] Unsolicited Start: 02-20-2024 End: 02-21-2024 Clinisync Result Encounter Generic External Data Provider [facility] External [facility] Unsolicited Start: 02-20-2024 End: 02-21-2024 Clinisync Result Encounter Generic External Data Provider [facility] External [facility] Unsolicited Start: 02-01-2024 End: 02-01-2024 [facility] Start: 01-26-2024 End: 01-26-2024 Refill Rachel Kan RN [facility] Comment on above: Chronic midline low back pain, unspecified whether sciatica present (Primary Dx); Intervertebral disc stenosis of neural canal of cervical region; DDD (degenerative disc disease), lumbosacral Start: 01-23-2024 End: 01-31-2024 Telephone encounter Yumiko Elizalde APRN-TONG CARRIER Work Phone: [facility] Start: 01-10-2024 End: 01-10-2024 ambulatory [facility] Start: 01-10-2024 End: 01-10-2024 Office outpatient visit 25 minutes Yumiko Elizalde MOBILE CRANE OPERATOR-TONG CARRIER Work Phone: [facility] Comment on above: Lumbar post-laminect yaritza syndrome (Primary Dx) Start: 12-26-2023 End: 12-28-2023 Clinisync Result Encounter Blake Anmol DO Work Phone: [facility] External [facility] Unsolicited Start: 12-26-2023 End: 12-28-2023 Clinisync Result Encounter Blake Anmol DO Work Phone: [facility] External [facility] Unsolicited Start: 12-23-2023 End: 12-23-2023 ambulatory [facility] Start: 12-23-2023 End: 12-23-2023 ambulatory [facility] Start: 12-06-2023 ambulatory Johan Zoe Facility:[facility] Start: 11-28-2023 End: 12-02-2023 Telephone encounter Kacy Dao RN [facility] Start: 11-25-2023 End: 11-25-2023 ambulatory [facility] Start: 11-25-2023 End: 11-27-2023 Clinisync Result Encounter Blake Anmol DO Work Phone: [facility] External [facility] Unsolicited Start: 11-25-2023 End: 11-27-2023 Clinisync Result Encounter Blake Anmol DO Work Phone: [facility] External Department Unsolicited Start: 11-25-2023 End: 11-25-2023 [facility] Start: 10-26-2023 End: 10-28-2023 Clinisync Result Encounter Blake Anmol DO Work Phone: [facility] External [facility] Unsolicited Start: 10-26-2023 End: 10-28-2023 Clinisync Result Encounter Blake Anmol DO Work Phone: [facility] External [facility] Unsolicited Start: 10-25-2023 End: 10-25-[address] [facility] Start: 10-25-2023 End: 10-25-2023 Office outpatient visit 25 minutes Yumiko Elizalde MOBILE CRANE OPERATOR-TONG CARRIER Work Phone: [facility] Comment on above: Intervertebral disc stenosis of neural canal of cervical region (Primary Dx) Start: 10-06-2023 End: 10-06-2023 ambulatory [facility] Work Phone: Start: 10-06-2023 End: 10-06-2023 Patient encounter procedure [facility] Work Phone: Start: 09-30-2023 End: 09-30-2023 Office outpatient visit 15 minutes Elayne Luciano MD Work Phone: [facility] Comment on above: DDD (degenerative di sc disease), lumbosacral (Primary Dx) Start: 09-23-2023 End: 09-23-2023 Refill Jaswant Odonnell RN Work Phone: [facility] Comment on above: S/P lumbar fusion (P rimary Dx); Low back pain, unspecified back pain laterality, unspecified chronicity, unspecified whether sciatica present; Neck pain Start: 09-22-2023 End: 09-22-2023 Telephone encounter Antonia Mcmahon RN Work Phone: [facility] Comment on above: Myelo/CT results & M ed refill Start: 09-19-2023 End: 09-19-2023 ambulatory BLAKE ARIZAO Not Available Start: 09-18-2023 End: 09-18-2023 Refill Gino Nicolas MD Work Phone: [facility] Start: 09-15-2023 End: 09-15-2023 ambulatory [facility] Start: 08-26-2023 End: 08-26-2023 Office outpatient visit 25 minutes Elayne Luciano MD Work Phone: [facility] Comment on above: Neck pain (Primary D x); Low back pain, unspecified back pain laterality, unspecified chronicity, unspecified whether sciatica present Start: 08-26-2023 End: 08-26-2023 ambulatory [facility] Start: 08-20-2023 End: 08-20-2023 [facility] Start: 08-19-2023 End: 08-19-[address] [facility] Start: 08-15-2023 Non-patient / Non-visit [facility] Work Phone: Start: 08-15-2023 End: 08-15-2023 ambulatory BLAKE COREA Not Available Start: 08-10-2023 End: 08-10-2023 Telephone encounter Joselin Gabrielroe RMA [facility] Start: 06-27-2023 End: 07-04-2023 Telephone encounter Lorena Gomez CNA [facility] Start: 06-16-2023 End: 06-21-2023 Telephone encounter Rachel Kan RN [facility] Start: 06-15-2023 End: 06-15-2023 Emergency department patient visit GENOVEVA Haile Work Phone: [facility] Work Phone: Start: 06-01-2023 End: 06-02-2023 Emergency department patient visit KYLAH AMADO [facility] Start: 05-31-2023 Jason Nicolas MD Work Phone: [facility] Start: 05-31-2023 End: 05-31-2023 Office outpatient visit 15 minutes Renetta ROJAS Work Phone: [facility] Comment on above: Lumbar radiculopathy (Primary Dx) Start: 05-31-2023 End: 05-31-[address] [facility] Start: 05-26-2023 End: 05-26-2023 ambulatory [facility] Work Phone: Start: 05-26-2023 End: 05-26-2023 Patient encounter procedure [facility] Work Phone: Start: 05-14-2023 End: 05-14-[address] [facility] Start: 05-13-2023 End: 05-13-[address] [facility] Start: 05-10-2023 Telephone encounter Ana Pichardo [facility] Start: 05-04-2023 End: 05-04-[address] [facility] Start: 05-04-2023 End: 05-04-2023 Office outpatient visit 25 minutes Renetta Elizalde PA Work Phone: [facility] Comment on above: Lumbar radiculopathy (Primary Dx); Spinal stenosis of lumbar region with neurogenic claudication Start: 04-28-2023 Non-patient / Non-visit [facility] Work Phone: Start: 04-27-[address] [facility] Start: 04-21-2023 Telephone encounter Saida Valiente [facility] Start: 04-19-2023 Non-patient / Non-visit [facility] Work Phone: Start: 04-18-2023 End: 04-18-2023 ambulatory Berenice Haile Other [facility] [employer] Other Start: 04-18-2023 Telephone encounter Berenice Marsh [facility] Start: 04-11-2023 Clinisync Result Encounter Blake Anmol DO Work Phone: [facility] External [facility] Unsolicited Start: 04-11-2023 External Result Encounter Blake Anmol DO Work Phone: [facility] External [facility] Unsolicited Start: 04-11-2023 External Result Encounter Blake Anmol DO Work Phone: [facility] External [facility] Unsolicited Start: 04-11-2023 End: 04-11-2023 ambulatory BLAKE ANMOL Not Available Start: 03-30-2023 Orders Only Johana hansen MOBILE CRANE OPERATOR-TONG CARRIER Work Phone: [facility] Comment on above: Bilateral leg pain ( Primary Dx); Herniated lumbar intervertebral disc; S/P lumbar fusion; Lumbar foraminal stenosis Start: 03-21-2023 End: 03-21-2023 ambulatory Berenice Carolinecasey Other [facility] Other Start: 03-21-2023 Office outpatient vi sit 25 minutes Berenice Lazara [facility] Start: 03-21-2023 End: 03-21-2023 Patient encounter procedure [facility] Work Phone: Start: 03-17-2023 End: 03-17-2023 ambulatory Berenice Gracemaryurisheela Other [facility] Other Start: 03-17-2023 Telephone encounter Berenice Salma her [facility] Start: 03-16-2023 Orders Only Johana hansen MOBILE CRANE OPERATOR-TONG CARRIER Work Phone: [facility] Comment on above: S/P lumbar fusion Start: 03-02-2023 ambulatory BERENICE HAILE [facility] Start: 02-23-2023 End: 02-23-2023 Patient encounter procedure MOBILE CRANE OPERATOR Berenice Lazara Work Phone: [facility] [place] Work Phone: Start: 02-23-2023 End: 02-23-2023 ambulatory MOBILE CRANE OPERATOR Berenice Lazara Work Phone: [facility] Work Phone: Start: 01-17-2023 End: 01-17-2023 ambulatory RENETTA PASTOR Not Available Start: 12-22-2022 End: 12-22-2022 ambulatory Ladarius Pitts Other [facility] Other Start: 12-22-2022 Telephone encounter Ladarius Marrero [facility] Start: 12-13-2022 End: 12-13-2022 Patient encounter procedure PHYSICIAN FELICE RIVERA [facility] [place] Work Phone: Start: 12-13-2022 End: 12-13-2022 ambulatory PHYSICIAN FELICE RIVERA [facility] Work Phone: Start: 12-13-2022 Office outpatient ne w 30 minutes Ladarius Pitts [facility] Start: 12-06-2022 End: 12-06-2022 ambulatory Berenice Haile Other [facility] Other Start: 12-06-2022 Telephone encounter Berenice Marsh her [facility] Start: 11-22-2022 End: 11-22-2022 ambulatory Berenice Haile Other [facility] Other Start: 11-22-2022 Telephone encounter Berenice Salma her [facility] Start: 11-02-2022 End: 11-02-2022 ambulatory Berenice Haile Other [facility] Other Start: 11-02-2022 Telephone encounter Berenice Salma her [facility] Start: 09-22-2022 End: 09-22-2022 Departed Referred MOBILE CRANE OPERATOR Berenice Haile Work Phone: [facility] [place] Work Phone: Start: 09-22-2022 End: 09-22-2022 ambulatory MOBILE CRANE OPERATOR Berenice Haile Work Phone: [facility] Work Phone: Start: 09-22-2022 Office outpatient ne w 30 minutes Berenice Haile [facility] Start: 09-08-2022 End: 09-08-2022 Emergency department patient visit [facility] Start: 05-24-2022 End: 05-24-[address] LESLEY LINDSEY . Facility:[facility] Start: 01-21-2022 End: 01-21-2022 ambulatory IRINA PEREZ Facility:[facility] Start: 01-19-2022 End: 01-19-2022 ambulatory Liz Billingsley Other [facility] Other Start: 01-19-2022 Office outpatient vi sit 15 minutes Liz Billingsley [facility] Start: 10-08-[address] Arthur MADERA Facili ty:[facility] Start: 08-31-2021 End: 08-31-2021 ambulatory Agus Madera Other [facility] Other Start: 08-31-2021 Telephone encounter Agus ramirez [facility] Start: 08-06-2021 End: 08-07-2021 ambulatory IRINA PEREZ Facility:[facility] Start: 07-01-2021 End: 07-01-2021 ambulatory Agus Madera Other [facility] Other Start: 07-01-2021 Telephone encounter Agus ramirez [facility] Start: 03-03-2021 End: 03-03-2021 ambulatory Agus Madera Other [facility] Other Start: 03-03-2021 Office outpatient ne w 45 minutes Agus Madera [facility] Start: 12-27-2020 End: 12-27-2020 Emergency department patient visit Sai Hernandez MD Work Phone: [facility] ED Comment on above: Substance abuse (HCC ) (Primary Dx) Start: 07-10-2020 End: 07-10-2020 FQHC visit, estab pt Li DUARTE Work Phone: [facility] Work Phone: Start: 07-10-2020 End: 07-10-2020 FQHC visit, estab pt Li DUARTE Work Phone: [facility] Work Phone: Start: 07-10-2020 End: 07-10-2020 General Megan Arita CNP Work Phone: [facility] Work Phone: Start: 09-05-2019 End: 09-06-2019 ambulatory ROSANA ALANIZ Facility:[facility] Start: 07-16-2019 End: 07-16-2019 Nursing evaluation of patient and report Susan Em Work Phone: [facility] Work Phone: Start: 07-16-2019 End: 07-16-2019 Patient encounter procedure Rosana Alaniz Work Phone: [facility] Work Phone: Start: 07-16-2019 End: 03-13-2020 Patient encounter procedure Li Sutherland Work Phone: [facility] Work Phone: Start: 07-16-2019 End: 03-13-2020 Telemedicine consultation with patient Rosana Alaniz Work Phone: [facility] Work Phone: Start: 07-04-2019 End: 07-04-2019 Telemedicine consultation with patient Rosana Alaniz Work Phone: [facility] Work Phone: Start: 06-01-2019 End: 06-01-2019 Patient encounter procedure Li Sutherland Work Phone: [facility] Work Phone: Start: 06-01-2019 End: 06-01-2019 Telemedicine consultation with patient Rosana Alaniz Work Phone: [facility] Work Phone: Start: 05-24-2019 End: 05-24-2019 Established patient Rosana Alaniz Work Phone: [facility] Work Phone: Start: 03-08-2019 End: 03-08-2019 ambulatory Rosana Alaniz Work Phone: [facility] Work Phone: Start: 02-20-2019 End: 02-20-2019 Established patient Uday Hansen Work Phone: [facility] Work Phone: Start: 02-20-2019 End: 02-20-2019 Established patient Rosana Alaniz Work Phone: [facility] Work Phone: Start: 02-06-2019 End: 02-06-2019 Patient encounter procedure Rosana Alaniz Work Phone: [facility] Work Phone: Start: 01-29-2019 End: 01-29-2019 Emergency department patient visit ROSANA ALANIZ [facility] Start: 01-29-2019 End: 01-29-2019 Emergency department patient visit Waylon Montoya Work Phone: [facility] ED Comment on above: Accidental overdose of heroin, initial encounter (HCC) (Primary Dx) Start: 2019 End: 2019 Emergency department patient visit Sourav Baird Work Phone: [facility] ED Comment on above: Sciatica of left ramin e (Primary Dx); Closed fracture of right foot, initial encounter Start: 01-04-2019 End: 01-04-2019 Established patient Primitivo Lujan Work Phone: [facility] Work Phone: Start: 01-03-2019 End: 01-03-2019 Emergency department patient visit Elayne Hurley [facility] ED Comment on above: Herniated interverte bral disc of lumbar spine (Primary Dx); Neuropathy Start: 11-20-2018 End: 11-20-2018 Established patient Rosana Alaniz Work Phone: [facility] Work Phone: Start: 11-14-2018 End: 11-14-2018 Emergency department patient visit Marco A Jia Work Phone: [facility] ED Comment on above: Bilateral lower extr emity edema (Primary Dx); Transaminitis; Impetigo Start: 11-14-2018 End: 11-14-2018 Subsequent hospital visit by physician Roasna Alaniz [facility] Start: 11-14-2018 End: 11-16-2018 Subsequent hospital visit by physician [facility] Comment on above: Pain of left calf Start: 10-26-2018 End: 10-26-2018 Patient encounter procedure Rosana Alaniz Work Phone: [facility] Work Phone: Start: 10-25-2018 End: 10-25-2018 Patient encounter procedure Ivy Le Work Phone: [facility] Work Phone: Start: 10-15-2018 End: 10-15-2018 Emergency department patient visit JENNIFER WHALEY [facility] Start: 10-15-2018 End: 10-15-2018 Emergency department patient visit Jennifer Whaley Work Phone: [facility] ED Comment on above: Injury of left foot, initial encounter (Primary Dx) Start: 08-31-2018 End: 08-31-2018 Patient encounter procedure Rosana Alaniz Work Phone: [facility] Work Phone: Start: 06-15-2018 End: 06-15-2018 Established patient Rosana Alaniz Work Phone: [facility] Work Phone: Start: 06-01-2018 End: 06-01-2018 Patient encounter procedure Rosana Alaniz Work Phone: [facility] Work Phone: Start: 04-24-2018 End: 04-24-2018 Patient encounter procedure Rosana Alaniz Work Phone: [facility] Work Phone: Start: 04-06-2018 End: 04-06-2018 Patient encounter procedure Rosana Alaniz Work Phone: [facility] Work Phone: Start: 02-16-2018 Evaluation and management of established outpatient in office or other outpatient facility Rosana Alaniz [facility] Start: 02-16-2018 End: 02-16-2018 Patient encounter procedure Rosana Novoa [facility] Work Phone: Start: 02-16-2018 Medical Rosana Alaniz Other [facility] Start: 01-16-2018 Patient encounter OZZIE MCKEON [facility] Start: 11-24-2017 End: 11-24-2017 Patient encounter procedure Rosana Alaniz [facility] Work Phone: Start: 11-24-2017 Laboratory examinati on, unspecified Rosana Alaniz [facility] Start: 11-24-2017 Comprehensive metabo lic panel Rosanaray Alaniz [facility] Start: 11-24-2017 End: 11-24-2017 Office outpatient visit 15 minutes Rosana Alaniz Other [facility] Start: 11-24-2017 Radex ankle complete minimum 3 views Rosanaray Alaniz [facility] Start: 11-24-2017 Radex foot complete minimum 3 views Rosanaray Alaniz [facility] Start: 10-23-2017 End: 10-24-2017 Emergency department patient visit ACHILLES [facility] Start: 08-16-2017 End: 08-16-2017 Office outpatient visit 25 minutes Rosana Alaniz Other [facility] Start: 05-26-2017 Evaluation and management of established outpatient in office or other outpatient facility Rosana Alaniz [facility] Start: 05-26-2017 Antibody herpes smpl x type [address] [facility] Start: 05-26-2017 C-reactive protein h igh sensitivity [facility] Start: 05-26-2017 End: 05-26-2017 Office outpatient visit 25 minutes Rosana Alaniz Other [facility] Start: 05-26-2017 Sedimentation rate r bc automated [facility] Start: 03-29-2017 End: 03-29-2017 Office outpatient visit 15 minutes Rosana Alaniz Other [facility] Start: 02-22-2017 Antibody herpes smpl x type 1 [facility] Start: 02-22-2017 C-reactive protein Rosanaray Alaniz [facility] Start: 02-22-2017 Comprehensive metabo lic panel [facility] Start: 02-22-2017 Culture bacterial bl ood aerobic w/id isolates [facility] Start: 02-22-2017 End: 02-22-2017 Office outpatient visit 25 minutes Rosana Alaniz Other [facility] Start: 02-22-2017 Sedimentation rate r bc automated [facility] Start: 02-22-2017 Evaluation and management of established outpatient in office or other outpatient facility [facility] Start: 02-01-2017 End: 02-01-2017 Office outpatient visit 15 minutes Rosana Alaniz Other [facility] Start: 02-01-2017 Polysom 6/>yrs sleep 4/> addl [facility] Start: 02-01-2017 Polysom 6/>yrs sleep w/cpap 4/> addl l[facility] Start: 01-06-2017 End: 01-06-2017 Office outpatient visit 15 minutes Rosana Alaniz Other [facility] Start: 12-09-2016 End: 12-09-2016 Office outpatient new 20 minutes Rosana Alaniz Other [facility] Start: 09-15-2016 Ambulatory CHANO FRANKLIN Facility: [facility] Procedures Date Procedure Procedure Detail Performing Clinician Start: 04-25-2024 ALL PROGESTERONE Generic External Sony a Provider Start: 03-26-2024 ALL PROGESTERONE Generic External Sony a Provider Start: 03-13-2024 [facility] PREG QUANT HCG Blake Anmol DO Work Phone: Start: 02-20-2024 ALL PROGESTERONE Blake Anmol DO Work Phone: Start: 12-26-2023 ALL PROGESTERONE Blake Anmol DO Work Phone: Start: 11-25-2023 ALL PROGESTERONE Blake Anmol DO Work Phone: Start: 10-26-2023 ALL PROGESTERONE Blake Anmol DO Work Phone: Start: 08-26-2023 Follow-up visit Follow-up ELAYNE LUCIANO Start: 08-15-2023 Microscopic observation [Identifier] in Cervix by Cyto stain Elayne Luciano MD Work Phone: Start: 06-15-2023 CT of head [...] in Cervix by Cyto stain Johana Hansen MOBILE CRANE OPERATOR-TONG CARRIER Work Phone: Start: 12-27-2020 Blood gases any [...] cleared fda spec home use Rosana Alaniz TONG CARRIER Work Phone: Start: 07-10-2020 Most recent diastolic blood pressure < 80 mm hg Rosana Alaniz TONG CARRIER Work Phone: Start: 07-10-2020 Most recent systolic blood pressure <130 mm hg Rosana Alaniz TONG CARRIER Work Phone: Start: 07-10-2020 Psychotherapy w/patient 30 minutes Li Short LISWS Work Phone: Start: 03-13-2020 Psychotherapy w/patient 30 minutes Li Sutherland Work Phone: Start: 07-16-2019 Drug test prsmv [...] 2019 Radiologic examination foot 2 views Sourav Loc [facility] Work Phone: Start: 01-04-2019 Medroxyprogesterone acetate Ivy [...] protein Elayne munson Start: 11-20-2018 Medroxyprogesterone acetate Rosanaray Alaniz Work Phone: Start: 11-20-2018 Therapeutic prophylactic/dx injection subq/im Rosanaray Alaniz Work Phone: Start: 11-14-2018 Blood count complete auto&auto difrntl wbc Marco A Ro Work Phone: Start: 11-14-2018 Natriuretic peptide Marco A Ro Work Phone: Start: 11-14-2018 Dup-scan xtr veins unilateral/limited study Noéjeremias Kylee Huffmanmikel Work Phone: Start: 11-14-2018 Acute hepatitis panel Adelso Kash Michelon Work Phone: Start: 11-14-2018 Antibody hiv-1&hiv-2 single result Adelso Kash Karthik Work Phone: Start: 11-14-2018 T. PALLIDUM AB Adelso Allison Work Phone: Start: 10-15-2018 CRUTCHES JENNIFER STEVE Start: 10-15-2018 Radex ankle complete minimum 3 views JENNIFER WHALEY Start: 10-15-2018 Radex foot complete minimum 3 views JNENIFER WHALEY Start: 10-15-2018 Radex ankle complete minimum 3 views Jennifer Whaley Work Phone: Start: 10-15-2018 Radex foot complete minimum 3 views Jennifer Monterroso [employer] Work Phone: Start: 06-15-2018 ANXIETY DISORDER NOS [...] Polysom 6/>yrs sleep w/cpap 4/> addl lona isidoro Alaniz Start: 01-06-2017 End: 01-06-2017 Hemoglobin glycosylated a1c Rosana Alaniz Start: 01-06-2017 Pt-focused hlth risk assmt score doc stnd instrm Rosana Alaniz Start: 11-11-2016 PAP Results Rosana Alaniz Plan of Treatment Date Care Activity Detail Author Start: 03-08-2030 DTaP,Tdap and Td Vaccines (6 - Td or Tdap) DTaP,Tdap and Td Vaccines (6 - Td or Tdap) [facility] Start: 03-08-2030 DTaP/Tdap/Td vaccine (2 - Td or Tdap) DTaP/Tdap/Td vaccine (2 - Td or Tdap) [employer] Phone: Start: 08-14-2028 Screening for malign ant neoplasm of cervix [facility] Start: 08-14-2026 Screening for malign ant neoplasm of cervix Pap Smear [facility] Start: 05-24-2025 Screening for malign ant neoplasm of cervix [facility] Start: 04-18-2025 Adult BMI Screening Adult BMI Screen ing [facility] Start: 04-18-2025 Tobacco Screening Tobacco Screening [facility] Start: 01-09-2025 Tobacco Screening Tobacco Screening [facility] Start: 10-24-2024 Adult BMI Screening Adult BMI Screen ing [facility] Start: 10-24-2024 Tobacco Screening Tobacco Screening [facility] Start: 09-29-2024 Adult BMI Screening Adult BMI Screen ing [facility] Start: 09-14-2024 Adult BMI Screening Adult BMI Screen ing [facility] Start: 09-14-2024 Tobacco Screening Tobacco Screening [facility] Start: 08-25-2024 Adult BMI Screening Adult BMI Screen ing [facility] Start: 08-25-2024 Tobacco Screening Tobacco Screening [facility] Start: 05-30-2024 Adult BMI Screening Adult BMI Screen ing [facility] Start: 05-30-2024 Tobacco Screening Tobacco Screening [facility] Start: 05-30-2024 End: 05-30-2024 Patient encounter procedure 05/30/2024 10:30 AM EDT Office Visit [facility] [address] [place] [address] Jaswant Hussein PA-C [address] [place] [address] [facility] Start: 05-04-2024 Adult BMI Screening Adult BMI Screen ing [facility] Start: 05-04-2024 Tobacco Screening Tobacco Screening [facility] Start: 05-04-2024 End: 05-04-2024 Admission to same day surgery center 05/04/2024 1:50 PM EST - 05/04/2024 1:57 PM EST Surgery [facility] [address] [place] [phone] Anup Butler MD [address] [place], [place] [id number] INJECTION BLOCK EPIDURAL CERVICAL/THORACIC C 6/7 TANIA [05572 (CPT )] [facility] Comment on above: INJECTION BLOCK EPID URAL CERVICAL/THORACIC C 6/7 TANIA [39355 (CPT )] Start: 05-04-2024 End: 05-04-2024 Njx dx/ther sbst intrlmnr crv/thrc w/img gdn INJECTION BLOCK EPIDURAL CERVICAL/THORACIC Stenosis of cervical spine 05/04/2024 1:50 PM EST [facility] Start: 05-04-2024 Subsequent hospital visit by physician 05/04/2024 1:50 PM EST Hospital Encounter [facility] [address] [place] [phone] Anup Butler MD [address] [place] [address] [facility] Start: 01-10-2024 End: 01-10-2024 Patient encounter procedure 01/10/2024 2:45 PM EST Office Visit [facility] [address] [place] [phone] Yumiko Elizalde, MOBILE CRANE OPERATOR-TONG CARRIER [address] [place] [address] [facility] Start: 01-09-2024 Adult BMI Screening Adult BMI Screen [facility] Start: 12-23-2023 End: 12-23-2023 Admission to same day surgery center 12/23/2023 12:37 PM EDT - 12/23/2023 12:44 PM EDT Surgery [facility] [address] [place] [phone] Anup Butlre MD [address] [place] [id number] INJECTION SPINE TRANSFORAMINAL LEFT C 6, 7 NROOT [25770 (CPT )] [facility] Comment on above: INJECTION SPINE ANDERSON SFORAMINAL LEFT C 6, 7 NROOT [36814 (CPT )] Start: 12-23-2023 End: 12-23-2023 Njx anes&/strd w/img tfrml edrl crv/thrc 1 lvl INJECTION SPINE TRANSFORAMINAL Intervertebral disc stenosis of neural canal of cervical region 12/23/2023 12:37 PM EDT [facility] Start: 12-23-2023 Subsequent hospital visit by physician 12/23/2023 12:37 PM EDT Hospital Encounter [facility] [address] [place] [address] Anup Butler MD [address] [place], [place] [phone] [facility] Start: 12-17-2023 Tobacco Screening Tobacco Screening [facility] Start: 11-06-2023 Influenza vaccination N [facility] Start: 09-30-2023 End: 09-30-2023 Patient encounter procedure 09/30/2023 10:40 AM EDT Office Visit [facility] [place] [phone] [place] [address] [place] [address] [address] [place] [address] [facility] Start: 09-13-2023 End: 09-13-2023 Patient encounter procedure 09/13/2023 10:45 AM EDT Office Visit [facility] [address] [place] [address] Renetta Elizalde PA [address] [facility] [place] [address] [facility] Start: 08-26-2023 End: 08-25-2024 CT Cervical spine W contrast IV CT cervical spine with contrast Imaging Routine Neck pain Low back pain, unspecified back pain laterality, unspecified chronicity, unspecified whether sciatica present Expected: 08/26/2023, Expires: 08/25/2024 [facility] Comment on above: Expected: 08/26/2023 , Expires: 08/25/2024 Start: 08-26-2023 End: 08-25-2024 CT Lumbar spine W contrast IV CT lumbar spine with contrast Imaging Routine Neck pain Low back pain, unspecified back pain laterality, unspecified chronicity, unspecified whether sciatica present Expected: 08/26/2023, Expires: 08/25/2024 [facility] Comment on above: Expected: 08/26/2023 , Expires: 08/25/2024 Start: 08-26-2023 End: 08-25-2024 RF Spine Views W contrast IT IR myelogram 2+ regions complete Imaging Routine Neck pain Low back pain, unspecified back pain laterality, unspecified chronicity, unspecified whether sciatica present Expected: 08/26/2023, Expires: 08/25/2024 [facility] Comment on above: Expected: 08/26/2023 , Expires: 08/25/2024 Start: 08-26-2023 End: 08-25-2024 XR Cervical spine Lateral Views W flexion and W extension [facility]: Comment on above: Expected: 08/26/2023 , Expires: 08/25/2024 Start: 08-19-2023 End: 08-19-2023 Admission to same day surgery center 08/19/2023 10:09 AM EDT - 08/19/2023 10:15 AM EDT Surgery [facility] [address] [place] [phone] Anup Butler MD [address], [place] [phone] INJECTION BLOCK EPIDURAL CAUDAL STEROID [61838 (CPT )] [facility] Comment on above: INJECTION BLOCK EPID URAL CAUDAL STEROID [22087 (CPT )] Start: 08-19-2023 End: 08-19-2023 Njx dx/ther sbst intrlmnr lmbr/sac w/img gdn INJECTION BLOCK EPIDURAL CAUDAL STEROID Lumbar radiculopathy 08/19/2023 10:09 AM EDT [facility] Start: 08-19-2023 Subsequent hospital visit by physician 08/19/2023 10:09 AM EDT Hospital Encounter [facility] [address] [place] [phone] Anup Butler MD [address], [place] [address] [facility] Start: 08-17-2023 End: 08-17-2023 Patient encounter procedure 08/17/2023 1:10 PM EDT Office Visit [facility] [address] [place] [address] Elayne Luciano MD [address] [facility] [address] [place] [address] [facility] Start: 08-15-2023 End: 08-15-2023 Patient encounter procedure 08/15/2023 1:00 PM EDT Procedure Visit [facility] [address] [place] [address] Blake Corea DO [address] [place] [address] [facility] Start: 07-08-2023 Subsequent hospital visit by physician 07/08/2023 Hospital Encounter [facility] [address] [place] [address] Anup Butler MD [address] [place] [address] [facility] Start: 07-05-2023 End: 07-05-2023 Patient encounter procedure 07/05/2023 1:00 PM EDT Office Visit [facility] [address] [place] [address] Renetta Elizalde PA [address] [place] [address] [facility] Start: 06-17-2023 End: 06-17-2023 Admission to same day surgery center 06/17/2023 7:57 AM EDT - 06/17/2023 8:03 AM EDT Surgery [facility] [address] [place] [address] Anup Butler MD [address] [place] [phone] INJECTION BLOCK EPIDURAL CAUDAL STEROID [02048 (CPT )] [facility] Comment on above: INJECTION BLOCK EPID URAL CAUDAL STEROID [75518 (CPT )] Start: 06-17-2023 End: 06-17-2023 Njx dx/ther sbst intrlmnr lmbr/sac w/img gdn INJECTION BLOCK EPIDURAL CAUDAL STEROID Lumbar radiculopathy 06/17/2023 7:57 AM EDT [facility] Start: 06-17-2023 Subsequent hospital visit by physician 06/17/2023 7:57 AM EDT Hospital Encounter [facility] [address] [place] [phone] Anup Butler MD [address] [place] [id number] [facility] Start: 06-15-2023 Bacteria identified in Urine by Culture [facility] Start: 05-31-2023 End: 05-31-2023 Patient encounter procedure 05/31/2023 1:45 PM EDT Office Visit [facility] [address] [place] [phone] Renetta Elizalde PA [address] [place], [place] [phone] [facility] Start: 05-13-2023 End: 05-13-2023 Admission to same day surgery center 05/13/2023 12:51 PM EST - 05/13/2023 12:57 PM EST Surgery [facility] [address] [place] [address] Anup Butler MD [address] [facility] [phone] INJECTION SPINE TRANSFORAMINAL Right L 5,1 Nroot [77441 (CPT )] [facility] Comment on above: INJECTION SPINE ANDERSON SFORAMINAL Right L 5,1 Nroot [26401 (CPT )] Start: 05-13-2023 End: 05-13-2023 Njx anes&/strd w/img tfrml edrl lmbr/sac 1 lvl INJECTION SPINE TRANSFORAMINAL Lumbar radiculopathy Spinal stenosis of lumbar region with neurogenic claudication 05/13/2023 12:51 PM EST [facility] Start: 05-13-2023 Subsequent hospital visit by physician 05/13/2023 12:51 PM EST Hospital Encounter [facility] [address] [place] [phone] Anup Butler MD [address] [place], [place] [phone] [facility] Start: 05-03-2023 End: 05-03-2023 Patient encounter procedure 05/03/2023 1:00 PM EST Office Visit [facility] [address] [place] [phone] Renetta Elizalde PA [address] [place], [place] [phone] [facility] Start: 04-28-2023 Patient referral [facility] Work Phone: Start: 04-27-2023 End: 04-27-2023 Patient encounter procedure 04/27/2023 8:00 AM EST Office Visit [facility] [address] [place] [phone] Gino Nicolas MD [address] , [facility] [address] [place] [address] [facility] Start: 04-05-2023 End: 04-05-2023 Patient encounter procedure 04/05/2023 2:30 PM EST Office Visit [facility] [address] [place] [address] Shruthi Chinchilla MD [address] , [facility] [address] [place] [address] [facility] Start: 11-05-2022 Influenza vaccination N [facility] Start: 09-22-2022 [facility] Start: 09-22-2022 Aerobic Culture Aerobic Culture [facility] Start: 09-22-2022 Anaerobic Culture Anaerobic Culture [facility] Start: 09-22-2022 Microscopic observat ion [Identifier] in Unspecified specimen by Gram stain Gram Stain [facility] Start: 12-27-2021 Creatinine measurement Creatinine mo nitoring [facility] Work Phone: Start: 12-27-2021 Potassium monitoring Potassium monit [facility] Work Phone: Start: 11-05-2020 Influenza vaccination Flu vaccine (# 1) [facility] Work Phone: Start: 01-04-2020 Creatinine monitoring Creatinine mon [place], [place] Start: 01-04-2020 Potassium monitoring Potassium monit [place], [place] Start: 11-15-2019 Creatinine monitoring Creatinine [place] Start: 11-15-2019 Potassium monitoring Potassium monit [place], [place] Start: 07-17-2019 Drug Test, Uri ne, In House [facility] Work Phone: Start: 07-12-2019 HbA1c (Bld) [Mass fraction] [facility] Work Phone: Start: 07-04-2019 Medical Establ ished Patient [facility] Work Phone: Start: 03-28-2019 Nurse Visit [facility] Work Phone: Start: 02-21-2019 [facility] Work Phone: Start: 02-20-2019 [facility] Work Phone: Comment on above: Note: Please make a referral to: Note: Please make a referral to: Dr Quintero Start: 01-04-2019 [facility] Work Phone: Comment on above: Note: Please make a referral to: falling, concerns for MS family hx Note: Please make a referral to: bulging disc with L5 nerve compression Start: 11-27-2018 Lipid [address] panel [facility] Work Phone: Start: 11-20-2018 Neurology [facility] Work Phone: Comment on above: Note: Please make a referral to: [facility] if possible Start: 11-05-2018 Influenza vaccination Flu vaccine (# 1) [place], [place] Start: 10-25-2018 Orthopedics [facility] Work Phone: Comment on above: Note: Please make a referral to: Start: 10-17-2018 End: 10-17-2018 Appointment 10/17/2018 Appointment Pain Management Phyllis Vazquez MD [address] [facility] [address] [place] [address] [phone] [facility] Start: 08-31-2018 Pain Management [facility] Work Phone: Comment on above: Note: Please make a referral to: pro szymanski Start: 06-01-2018 Dermatology [facility] Work Phone: Comment on above: Note: Please make a referral to: Start: 11-25-2017 Drug test prsmv read direct optical obs pr date Urine Drug Test [facility] Start: 11-24-2017 Assay of free thyroxine TSH + free t [address] [facility] Start: 11-24-2017 Assay of iron Iron + TIBC ser [facility] Start: 11-24-2017 Assay of thyroid stimulating hormone tsh TSH + free t4 [facility] Start: 11-24-2017 Blood count complete auto&auto difrntl wbc CBC W/Diff [facility] Start: 11-24-2017 Blood count complete automated CBC auto [facility] Start: 11-24-2017 Cobalamin (Vitamin B 12) mass conc Vitamin B12 and Folate [facility] Start: 11-24-2017 Comprehensive metabo lic panel CMP [facility] Start: 11-24-2017 Iron binding capacity Iron + TIBC se r [facility] Start: 11-24-2017 Lipid panel Lipid Panel (C hol, HDL, LDL, Trig., VLDL) [facility] Start: 11-24-2017 [facility] Start: 08-16-2017 Drug test prsmv read direct optical obs pr date Urine Drug Test [facility] Start: 05-26-2017 Antibody herpes smpl x type 1 HSV 1 + 2 ab panel (IgG + IgM) [facility] Start: 05-26-2017 Blood count complete auto&auto difrntl wbc CBC W/Diff [facility] Start: 05-26-2017 C-reactive protein h igh sensitivity CRP high sensit [facility] Start: 05-26-2017 Erythrocyte sedimentation rate ESR [facility] Start: 03-22-2018 Protein mass conc CRP high sensit [facility] Start: 05-26-2017 Syphilis test non-treponemal antibody qual Syphilis test, non-treponemal antibody; qualitative (eg, VDRL, RPR, ART) [facility] Start: 01-12-2016 Screening for malign ant neoplasm of cervix [facility] Start: 2007 Cervical cancer screen Cervical canc er screen [place], [place] Start: 2007 Screening for malign ant neoplasm of cervix Pap smear [facility] [employer] Phone: Start: 2005 DTaP/Tdap/Td vaccine (1 - Tdap) DTaP/Tdap/Td vaccine (1 - Tdap) [place], [place] Start: 01-12-2004 Adult BMI Follow Up Plan Adult BMI Follow Up Plan [facility] Start: 2001 HIV screen HIV screen [place], [place] Start: 1999 Varicella Vaccine (1 of 2 - 13+ 2-dose series) Varicella Vaccine (1 of 2 - 13+ 2-dose series) [place], [place] Start: 1998 COVID-19 Vaccine (1) COVID-19 Vaccin e (1) [facility] [employer] Phone: Start: 1998 Depression Screening Depression Scre [facility] Start: 1997 DTaP/Tdap/Td vaccine (1 - Tdap) DTaP/Tdap/Td vaccine (1 - Tdap) [place], [place] Start: 01-12-1992 Pneumococcal 0-64 ye ars Vaccine (1 of 1 - PPSV23) Pneumococcal 0-64 years Vaccine (1 of 1 - PPSV23) [place], [place] Start: 01-12-1992 Pneumococcal 0-64 ye ars Vaccine (1 of 2 - PPSV23) Pneumococcal 0-64 years Vaccine (1 of 2 - PPSV23) [facility] [employer] Phone: Start: 1987 Varicella Vaccine (1 of 2 - 2-dose childhood series) Varicella Vaccine (1 of 2 - 2-dose childhood series) [place], [place] Start: 1986 Creatinine monitoring Creatinine mon monica [place], [place] Start: 1986 Potassium monitoring Potassium monit saqib [place], [place] End: 08-25-2024 Creatinine includes GFR, serum Creatinine includes GFR, serum Lab Routine Neck pain Low back pain, unspecified back pain laterality, unspecified chronicity, unspecified whether sciatica present 1 Occurrences starting 08/26/2023 until 08/25/2024 [facility] Comment on above: 1 Occurrences starti ng 08/26/2023 until 08/25/2024 End: 01-03-2019 Culture Blood #1 Culture Blood #1 Microbiology STAT One Time for 1 Occurrences starting 01/03/2019 until 01/03/2019 [place] Comment on above: One Time for 1 Occur rences starting 01/03/2019 until 01/03/2019 Culture Blood #1 Culture Blood # 1 Microbiology STAT 01/03/2019 5:11 PM EDT [place] End: 01-03-2019 Culture Blood #2 Culture Blood #2 Microbiology STAT One Time for 1 Occurrences starting 01/03/2019 until 01/03/2019 [place] Comment on above: One Time for 1 Occur rences starting 01/03/2019 until 01/03/2019 Culture Blood #2 Culture Blood # 2 Microbiology STAT 01/03/2019 5:23 PM EDT [place] EKG 12 Lead EKG 12 Lead ECG STAT 12/27/2020 9:52 AM EDT [facility] Work Phone: End: 12-27-2020 Glucose [Mass/volume] in Serum or Plasma POCT glucose Point of Care Testing STAT One Time for 1 Occurrences starting 12/27/2020 until 12/27/2020 [employer] Phone: Comment on above: One Time for 1 Occur rences starting 12/27/2020 until 12/27/2020 Hepatitis C virus RN A [log units/volume] (viral load) in Serum or Plasma by BETITO with probe detection [facility] Njx anes&/strd w/img tfrml edrl crv/thrc 1 lvl INJECTION SPINE TRANSFORAMINAL Intervertebral disc stenosis of neural canal of cervical region [facility] Njx dx/ther sbst intrlmnr lmbr/sac w/img gdn INJECTION BLOCK EPIDURAL CAUDAL STEROID Lumbar radiculopathy [facility] Njx dx/ther sbst intrlmnr lmbr/sac w/img gdn INJECTION BLOCK EPIDURAL CAUDAL STEROID Lumbar post-laminectomy syndrome [facility] End: 11-14-2018 Path Review, Smear Path Review, Smear Lab Routine Once for 1 Occurrences starting 11/14/2018 until 11/14/2018 [place], [place] Comment on above: Once for 1 Occurrenc es starting 11/14/2018 until 11/14/2018 Path Review, Smear Path Review, Smear Lab Routine 11/14/2018 5:08 PM EDT [place], [place] Patient Education Altered Mental Status Drug Misuse and Addiction (DC) Substance Misuse Treatment [facility] Work Phone: Patient referral [facility] Work Phone: End: 2019 Splint application Splint application Procedures Routine One Time for 1 Occurrences starting 2019 until 2019 [place], [place] Comment on above: One Time for 1 Occur rences starting 2019 until 2019 Immunizations Immunization Date Immunization Notes Care Provider Demetrius nicholas 03-08-2020 tetanus toxoid, redu dodie diphtheria toxoid, and acellular pertussis vaccine, adsorbed Johana Hansen MOBILE CRANE OPERATOR-TONG CARRIER Work Phone: [facility] 02-20-2019 hepatitis A vaccine, pediatric/adolescent dosage, 2 dose schedule; Translations: [Havrix] Rosana Alaniz [facility] Comment on above: Note: pt tolerated w ell, pt waited 10 min in treatment room with no adverse effects noted at this time 04-14-2018 hepatitis A vaccine, adult dosage [facility] 05-08-2017 influenza, seasonal, injectable, preservative free [facility] 05-08-2017 influenza virus vaccine, unspecified formulation Johana Hansen MOBILE CRANE OPERATOR-TONG CARRIER Work Phone: [facility] 01-13-2015 influenza, injectabl e, madin flora canine kidney, preservative free [facility] 12-02-2009 hepatitis B vaccine, pediatric or pediatric/adolescent dosage [facility] 06-20-2009 hepatitis B vaccine, pediatric or pediatric/adolescent dosage [facility] 05-20-2009 hepatitis B vaccine, pediatric or pediatric/adolescent dosage [facility] 11-17-1998 measles, mumps and rubella virus vaccine [facility] 01-31-1990 diphtheria, tetanus toxoids and pertussis vaccine [facility] 01-31-1990 trivalent poliovirus vaccine, live, oral [facility] 12-08-1987 diphtheria, tetanus toxoids and pertussis vaccine [facility] 12-08-1987 trivalent poliovirus vaccine, live, oral [facility] 12-07-1987 measles, mumps and rubella virus vaccine [facility] 1986 diphtheria, tetanus toxoids and pertussis vaccine [facility] 1986 trivalent poliovirus vaccine, live, oral [facility] 1986 diphtheria, tetanus toxoids and pertussis vaccine [facility] 1986 trivalent poliovirus vaccine, live, oral [facility] Payers Date Payer Category Payer Medicaid [id number]. 1.13.693.2.7.3. [id number] 2016 Unknown [employer] xxxxxxxxxxx 2016-Present [phone] [address] [place] [address] xxxxxxxxxxx 1.2.840.621289.1.13.239.2.7.3. [id number] 2016 Medicaid [id number] 2.16.840.1.446575.3.441 2010 Unknown [id number] 2.16.840.1.938941.3.441 1986 Unknown [id number] 2.16.840.1.456410.3.579.2.176 1986 Unknown [id number] 2.16.840.1.609238.3.579.2.176 1986 Unknown [id number] 2.16.840.1.741550.3.579.2.647 1986 Unknown [id number] 2.16.840.1.265882.3.579.2.593 1986 Unknown [id number] 2.16.840.1.335950.3.579.2.593 1986 Unknown [id number] 2.16.840.1.523971.3.579.2.593 1986 Unknown [id number] 2.16.840.1.360245.3.579.2.593 1986 Unknown [id number] 2.16.840.1.993916.3.579.2.173 1986 Unknown [id number] 2.16.840.1.699813.3.579.2.1286 1986 Unknown [id number] 2.16.840.1.285923.3.579.2.1286 1986 Unknown [id number] 2.16.840.1.427402.3.579.2.1286 1986 Unknown [id number] 2.16.840.1.403105.3.579.2.1286 1986 Unknown [id number] 2.16.840.1.074085.3.579.2.1259 1986 Unknown [id number] 2.16.840.1.954467.3.579.2.1259 1986 Unknown [id number] 2.16.840.1.391732.3.579.2.1259 1986 Unknown [id number] 2.16.840.1.687749.3.579.2.1259 1986 Unknown [id number] 2.16.840.1.307791.3.579.2.1286 1986 Unknown [id number] 2.16.840.1.847202.3.579.2.1285 1986 Unknown [id number] 2.16.840.1.822016.3.579.2.1285 1986 Unknown [id number] 2.16.840.1.114891.3.579.2.1285 1986 Unknown [id number] 2.16.840.1.066328.3.579.2.1285 1986 Unknown [id number] 2.16.840.1.676066.3.579.2.1285 1986 Unknown [id number] 2.16.840.1.595839.3.579.2.1285 1986 Unknown [id number] 2.16.840.1.817222.3.579.2.1285 1986 Unknown [id number] 2.16.840.1.662081.3.579.2.1285 1986 Unknown [id number] 2.16.840.1.646111.3.579.2.1285 1986 Unknown [id number] 2.16.840.1.262738.3.579.2.1285 1986 Unknown [id number] 2.16.840.1.798402.3.579.2.1285 1986 Unknown [id number] 2.16.840.1.686153.3.579.2.1285 1986 Unknown [id number] 2.16.840.1.520832.3.579.2.1285 1986 Unknown [id number] 2.16.840.1.711171.3.579.2.1285 1986 Unknown [id number] 2.16.840.1.765544.3.579.2.1285 1986 Unknown [id number] 2.16.840.1.531346.3.579.2.1285 1986 Unknown [id number] 2.16.840.1.832540.3.579.2.1286 1986 Unknown [id number] 2.16.840.1.210459.3.579.2.1286 1986 Unknown [id number] 2.16.840.1.688741.3.579.2.1286 1986 Unknown [id number] 2.16.840.1.849253.3.579.2.Formerly [facility]6 1986 Unknown [id number] 2.16.840.1.150060.3.579.2.1286 1986 Unknown [id number] 2.16.840.1.724363.3.579.2.Formerly [facility]6 1986 Unknown [id number] 2.16.840.1.663400.3.579.2.1286 1986 Unknown [id number] 2.16.840.1.824527.3.579.2.[facility] Unknown [id number] 2.16.840.1.749732.3.579.2.1286 1959 Self-pay 1959 Unknown [id number] 2.16.840.1.257090.19 Unknown [id number] 2.16.840.1.668488.3.579.2.531 Unknown [id number] 2.16.840.1.095067.3.579.2.531 Unknown [id number] 2.16.840.1.587245.3.579.2.531 Social History Date Type Detail Facility Start: Unknown if ever smoked [facility] Start: Light tobacco smoker [facility] Start: Current every day smoker [facility] Start: 10-15-2018 End: 08-26-2023 Tobacco smoking status [facility] Former smoker [facility] Start: 10-15-2018 End: 08-15-2023 Alcohol intake No [facility] Start: 1985 Sex Assigned At Not on file [facility] CHYNA Assertion Gender identity finding (finding) [facility] Work Phone: Assertion Finding of sexua l orientation (finding) [facility] Work Phone: Assertion Sexually active (finding) [facility] Work Phone: Tobacco smoking status Unknown if ever smoked [facility] Work Phone: Start: 2019 End: 12-27-2020 Tobacco smoking status NHIS Current some day smoker [facility] CHYNA Assertion [facility] Assertion Alcohol consumpt ion screening (procedure) [facility] Work Phone: Assertion Problem situatio n relating to social and personal history (finding) [facility] Work Phone: Assertion Emotional stress (finding) [facility] Work Phone: Assertion Single person (finding) [facility] Work Phone: Start: 01-29-2019 End: 12-27-2020 Alcohol intake Current non-drinker of alcohol (finding) [facility] Start: 12-27-2020 End: 01-04-2023 Tobacco use and exposure Never used [facility] Community Exposure to SARS-CoV-2 (event) Not sure [facility] Start: 1985 Sex Assigned At Female [facility] Start: 11-17-2016 End: 01-04-2023 Tobacco smoking status HIIS Never smoked tobacco [facility] Start: 04-11-2023 End: 09-19-2023 Alcohol intake Ex-drinker (finding) [facility] Start: 04-11-2023 End: 08-15-2023 History of Social function [facility] Start: 06-15-2023 End: 10-06-2023 Tobacco smoking status NHIS Smoker (finding) [facility] History of tobacco use Cigarette Smoker [facility] Do you feel stress - tense, restless, nervous, or anxious, or unable to sleep at night because your mind is troubled all the time - these days [OSQ] Only a [facility] Start: 03-17-2022 Tobacco Comment history of smo noemí social [facility] Start: 01-12-2019 Alcohol Comment maybe monthly [facility] Start: 10-10-2014 Sex Female (finding) [facility] NEGATED: Highlighted row Assertion Exposure to pollution (event) [facility] Work Phone: NEGATED: Highlighted row Assertion Tobacco user (finding) [facility] Work Phone: NEGATED: Highlighted row Assertion Current drinker of alcohol (finding) [facility] Work Phone: NEGATED: Highlighted row Assertion Finding relating to drug misuse behavior (finding) [facility] Work Phone: NEGATED: Highlighted row Assertion Illicit drug use (finding) [facility] Work Phone: NEGATED: Highlighted row Assertion Misuse of prescription only drugs (finding) [facility] Work Phone: NEGATED: Highlighted row Assertion [facility] Work Phone: Medical Equipment Procedure Code Equipment Code Equipment Origin al Text Equipment Identifier Dates [id number] Start: 02-16-2018 End: 02-04-2020 Start: 03-18-2023 Blood Sugar Diagnostic (Blood Glucose Test) strip Start: 10-06-2023 Bladimir Spnl Cd Hzn Solera 40mm 4.75mm Preb Cocrmo Crv Ns Solera - [id number] Start: 08-24-2021 Screw Bn 35mm 6. 5mm Ma Lp 2 Ld Clr Cd Spne Ti Cocr Cd Hzn - [id number] Start: 08-24-2021 Screw Bn 45mm 6. 5mm Ma Lp 2 Ld Clr Cd Spne Ti Cocr Cd Hzn - [id number] Start: 08-24-2021 Screw Set Ti Spn e Brk Off Cd Hzn Ns 4.75 Mm Bladimir - [id number] Start: 08-24-2021 Spacer [id number] Start: 08-24-2021 Goals Date Patient Goal Desired Activity /State Personal health goal Comment on above: Formatting of this n ote might be different from the original. Evaluation of progress towards goal: Safe dc transition from hospital to home with family support. Mental Status Date Assessment Result Facility Cognitive function Obsessive com pulsive disorder Obsessive-compulsive disorder (disorder) [facility] Work Phone: Clinical Notes 07-04-2019 to 04-18-2024 Jaswant Hussein PA-C - 04/18/2024 12:00 PM ESTPatient InstructionsTelephone Encounter - Rachel Kan RN - 01/26/2024 10:14 AM ESTTelephone Encounter - BOB Daily - 01/26/2024 10:14 AM EST Note Date & Type Note Facility 04-18-2024 History of Present illness Narrative [facility] [address] [place] [address] Patient: Tyrone Lim Sex: female : 1985 Age: 39 y.o. PCP: TERE PEREZ APRN-TONG CARRIER 04/18/2024 Tyrone Lim is here for a(n) post procedure follow up 03/16/2024 Caudal with 50% relief, much improved leg pain and better balance and functionality. Pre proc pain and current pain level 3-4/10, was 7/10. Her worst pain now is in her neck. Date of onset of pain: 2018 , pain has lasted greater than 3 months. Pain scale before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 Edema: Leg and Ankle ([place]) * Impetigo ([place]) * LFTs (Liver Function Tests) ([place]) documented in this encounter* Attachments The following attachments cannot be sent through Care Everywhere. * Sciatica ([place]) * Foot Fracture ([place]) documented in this encounter* Instructions* Elayne Hurley MD - 01/03/2019 You have a large herniated disc with entrapment of the left L5 nerve root. I would recommend follow-up with a neurosurgeon. documented in this encounter* Attachments The following attachments cannot be sent through Care Everywhere. * Drug Overdose: Opioid ([place]) documented in this encounter Assessments Diagnosis Injury of left foot, initial encounter- Primary Findings Encounter Date M25.572 - Pain in left ankle and joints of left foot Chart Update with Primitivo Lujan [facility] 10/25/2018 Assess open wound of the jacinto d, complicated Medical Established Patient with Rosana Alaniz [facility] 06/15/2018 Body mass index Medical Established Patient with Rosana Alaniz [facility] 06/15/2018 Assess dermatitis Chart Update with Rosana Alaniz [facility] 06/01/2018 Diagnosis Bilateral lower extremity edema- Primary Edema Transaminitis Nonspecific elevation of levels of transaminase or lactic acid dehydrogenase (LDH) Impetigo Findings Encounter Date Bulging intervertebral disc Medical Esta blished Patient with Primitivo Lujan [facility] 01/04/2019 Fibromyalgia Medical Established Patient with Primitivo Lujan [facility] 01/04/2019 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 Medical Established Patient with Primitivo Lujan [facility] 01/04/2019 Obesity due to excess calories Medical E stablished Patient with Primitivo Lujan [facility] 01/04/2019 Z30.42 - Encounter for surve illance of injectable contraceptive Medical Established Patient with Primitivo Lujan [facility] 01/04/2019 Z68.31 - Body mass index (BM I) 31.0-31.9 adult Medical Established Patient with Primitivo Lujan [facility] 01/04/2019 Assess migraine headache Medical Establi shed Patient with Rosana Alaniz [facility] 11/20/2018 Diabetes Risk Test Score was three score Medical Established Patient with Rosana Alaniz [facility] 11/20/2018 Obesity due to excess calories Medical E stablished Patient with Rosana Alaniz [facility] 11/20/2018 Z68.34 - Body mass index (BM I) 34.0-34.9 adult Medical Established Patient with Rosana Alaniz [facility] 11/20/2018 M25.572 - Pain in left ankle and joints of left foot Chart Update with Primitivo Lujan [facility] 10/25/2018 Assess open wound of the jacinto d, complicated Medical Established Patient with Rosana Alaniz [facility] 06/15/2018 Body mass index Medical Established Patient with Rosana Alaniz [facility] 06/15/2018 Assess dermatitis Chart Update with Rosana Alaniz [facility] 06/01/2018 Diagnosis Sciatica of left side- Primary Sciatica Closed fracture of right foot, initial encounter Findings Encounter Date 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 BH Established Patient with Uday Hansen [facility] 02/20/2019 Fagerstrom Score was 0 02/20/2019 Medica l Established Patient with Rosana Alaniz [facility] 02/20/2019 Obesity due to excess calories Medical E stablished Patient with Rosana Alaniz [facility] 02/20/2019 PHQ-9: total score was 24 02/20/2019 Med ical Established Patient with Rosana Alaniz [facility] 02/20/2019 Z68.34 - Body mass index (BM I) 34.0-34.9 adult Medical Established Patient with Rosana Alaniz [facility] 02/20/2019 Bulging intervertebral disc Medical [facility] blished [facility] Fibromyalgia [facility] 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 Medical Established Patient with IvyNya Lujan [facility] 01/04/2019 Obesity due to excess calories Medical E stablished [facility] Z30.42 - Encounter for surve illance of injectable contraceptive Medical Established [facility]04/2019 Z68.31 - Body mass index (BM I) 31.0-31.9 adult Medical Established [facility]2019 Assess migraine headache Medical Establi shed Patient with Rosana Alaniz [facility] 11/20/2018 Diabetes Risk Test Score was three score Medical Established Patient with Rosana Alaniz [facility] 11/20/2018 Obesity due to excess calories Medical E stablished Patient with Rosana Alaniz [facility] 11/20/2018 Z68.34 - Body mass index (BM I) 34.0-34.9 adult Medical Established Patient with Rosana Alaniz [facility] 11/20/2018 M25.572 - Pain in left ankle and joints of left foot [facility]2018 Assess open wound of the jacinto d, complicated Medical Established Patient with Rosana Alaniz [facility] 06/15/2018 Body mass index Medical Established Patient with Rosana Alaniz [facility] 06/15/2018 Assess dermatitis Chart Update with Rosana Katty [facility] 06/01/2018 Findings Encounter Date Anxiety disorder NOS CPS Med Review with Rosana Katty [facility] 03/08/2019 Obesity due to excess calories CPS Med R eview with Rosana Alaniz [facility] 03/08/2019 Screening for diabetes mellitus CPS Med Review with Rosana Alaniz [facility] 03/08/2019 Z68.32 - Body mass index (BM I) 32.0-32.9 adult CPS Med Review with Rosana Alaniz [facility] 03/08/2019 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 BH Established Patient with Uday Hansen [facility] 02/20/2019 Fagerstrom Score was 0 02/20/2019 Medica l Established Patient with Rosana Alaniz [facility] 02/20/2019 Obesity due to excess calories Medical E stablished Patient with Rosana Alaniz [facility] 02/20/2019 PHQ-9: total score was 24 02/20/2019 Med ical Established Patient with Rosana Alaniz [facility] 02/20/2019 Z68.34 - Body mass index (BM I) 34.0-34.9 adult Medical Established Patient with Rosana Alaniz [facility] 02/20/2019 Bulging intervertebral disc Medical Esta blished [facility] Fibromyalgia Medical Established Patient with Ivy Le [facility] 01/04/2019 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 Medical Established Patient with Primitivo Lujan [facility] 01/04/2019 Obesity due to excess calories Medical E stablished Patient with Primitivo Lujan [facility] 01/04/2019 Z30.42 - Encounter for surve illance of injectable contraceptive Medical Established Patient with Primitivo Lujan [facility] 01/04/2019 Z68.31 - Body mass index (BM I) 31.0-31.9 adult Medical Established Patient with Primitivo Lujan [facility] 01/04/2019 Assess migraine headache Medical Establi shed Patient with Rosana Alaniz [facility] 11/20/2018 Diabetes Risk Test Score was three score Medical Established Patient with Rosana Alaniz [facility] 11/20/2018 Obesity due to excess calories Medical E stablished Patient with Rosana Alaniz [facility] 11/20/2018 Z68.34 - Body mass index (BM I) 34.0-34.9 adult Medical Established Patient with Rosana Alaniz [facility] 11/20/2018 M25.572 - Pain in left ankle and joints of left foot Chart Update with Ivy Le [facility] 10/25/2018 Assess open wound of the jacinto d, complicated Medical Established Patient with Rosana Alaniz [facility] 06/15/2018 Body mass index Medical Established Patient with Rosana Alaniz [facility] 06/15/2018 Assess dermatitis Chart Update with Rosana Alaniz [facility] 06/01/2018 Findings Encounter Date Obesity due to excess calories Telemedicine with Rosana Alaniz [facility] 07/04/2019 Z68.31 - Body mass index (BM I) 31.0-31.9, adult Telemedicine with Rosana Alaniz [facility] 07/04/2019 Anxiety disorder NOS CPS Med Review with Rosana gomez [facility] 03/08/2019 Obesity due to excess calories CPS Med Review wi th Rosana Alaniz [facility] 03/08/2019 Screening for diabetes mellitus CPS Med Review w ith Rosana Alaniz [facility] 03/08/2019 Z68.32 - Body mass index (BM I) 32.0-32.9 adult CPS Med Review with Rosana Alaniz [facility] 03/08/2019 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 BH Established Patient with Uday Hansen [facility] 02/20/2019 Fagerstrom Score was 0 02/20/2019 Medica l Established Patient with Rosana Alaniz [facility] 02/20/2019 Obesity due to excess calories Medical E stablished Patient with Rosana Alaniz [facility] 02/20/2019 PHQ-9: total score was 24 02/20/2019 Med ical Established Patient with Rosana Alaniz [facility] 02/20/2019 Z68.34 - Body mass index (BM I) 34.0-34.9 adult Medical Established Patient with Rosana Alaniz [facility] 02/20/2019 Bulging intervertebral disc Medical Esta blished Patient with Primitivo Lujan [facility] 01/04/2019 Fibromyalgia Medical Established Patient with Ivy Le [facility] 01/04/2019 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 Medical Established Patient with Primitivo Lujan [facility] 01/04/2019 Obesity due to excess calories Medical E stablished Patient with Primitivo Lujan [facility] 01/04/2019 Z30.42 - Encounter for surve illance of injectable contraceptive Medical Established Patient with Primitivo Lujan [facility] 01/04/2019 Z68.31 - Body mass index (BM I) 31.0-31.9 adult Medical Established Patient with Primitivo Lujan [facility] 01/04/2019 Assess migraine headache Medical Establi shed Patient with Rosana Alaniz [facility] 11/20/2018 Diabetes Risk Test Score was three score Medical Established Patient with Rosana Alaniz [facility] 11/20/2018 Obesity due to excess calories Medical E stablished Patient with Rosana Alaniz [facility] 11/20/2018 Z68.34 - Body mass index (BM I) 34.0-34.9 adult Medical Established Patient with Rosana Alaniz [facility] 11/20/2018 M25.572 - Pain in left ankle and joints of left foot Chart Update with Primitivo Lujan [facility] 10/25/2018 Assess open wound of the jacinto d, complicated Medical Established Patient with Rosana Alaniz [facility] 06/15/2018 Body mass index Medical Established Patient with Rosana Alaniz [facility] 06/15/2018 Assess dermatitis Chart Update with Rosana Alaniz [facility] 06/01/2018 Findings Encounter Date Moderate recurrent major depression [facility] with Li DUARTE 03/13/2020 Body mass index Telemedicine Establi sted Patient with Rosana Alaniz [facility] 03/13/2020 Obesity due to excess calories Telemedic ine Establisted Patient with Rosana Alaniz [facility] 03/13/2020 Obesity due to excess calories Telemedicine with Rosana Alaniz [facility] 07/04/2019 Z68.31 - Body mass index (BM I) 31.0-31.9, adult Telemedicine with Rosana Alaniz [facility] 07/04/2019 Anxiety disorder NOS CPS Med Review with Rosana gomez [facility] 03/08/2019 Obesity due to excess calories CPS Med Review wi th Rosanaray Alaniz [facility] 03/08/2019 Screening for diabetes mellitus CPS Med Review w ith Rosanaray Alaniz [facility] 03/08/2019 Z68.32 - Body mass index (BM I) 32.0-32.9 adult CPS Med Review with Rosana Alaniz [facility] 03/08/2019 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 Established Patient with Uday Hansen [facility] 02/20/2019 Fagerstrom Score was 0 02/20/2019 Medica l Established Patient with Rosana Alaniz [facility] 02/20/2019 Obesity due to excess calories Medical E stablished Patient with Rosana Alaniz [facility] 02/20/2019 PHQ-9: total score was 24 02/20/2019 Med ical Established Patient with Rosana Alaniz [facility] 02/20/2019 Z68.34 - Body mass index (BM I) 34.0-34.9 adult Medical Established Patient with Rosana Alaniz [facility] 02/20/2019 Bulging intervertebral disc Medical Esta blished Patient with Primitivo Lujan [facility] 01/04/2019 Fibromyalgia Medical Established Patient with Primitivo Lujan [facility] 01/04/2019 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 Medical Established Patient with Primitivo Lujan [facility] 01/04/2019 Obesity due to excess calories Medical E stablished Patient with Primitivo Lujan [facility] 01/04/2019 Z30.42 - Encounter for surve illance of injectable contraceptive Medical Established Patient with Primitivo Lujan [facility] 01/04/2019 Z68.31 - Body mass index (BM I) 31.0-31.9 adult Medical Established Patient with Primitivo Lujan [facility] 01/04/2019 Assess migraine headache Medical Establi shed Patient with Rosana Alaniz [facility] 11/20/2018 Diabetes Risk Test Score was three score Medical Established Patient with Rosana Katty [facility] 11/20/2018 Obesity due to excess calories Medical E stablished Patient with Rosana Alaniz [facility] 11/20/2018 Z68.34 - Body mass index (BM I) 34.0-34.9 adult Medical Established Patient with Rosana Alaniz [facility] 11/20/2018 M25.572 - Pain in left ankle and joints of left foot Chart Update with Primitivo Lujan [facility] 10/25/2018 Assess open wound of the jacinto d, complicated Medical Established Patient with Rosana Alaniz [facility] 06/15/2018 Body mass index Medical Established Patient with Rosana Alaniz [facility] 06/15/2018 Assess dermatitis Chart Update with Rosana [facility] 06/01/2018 Diagnosis Herniated intervertebral disc of lumbar spine- Primary Neuropathy Mononeuritis of unspecified site Diagnosis Accidental overdose of heroin, initial encounter (HCC)- Primary Findings Encounter Date Assess open wound of the jacinto d, complicated Medical Established Patient with Rosana Alaniz [facility] 06/15/2018 Body mass index Medical Established Patient with Rosana Alaniz [facility] 06/15/2018 Assess dermatitis Chart Update with [facility] 06/01/2018 Diagnosis Pain of left calf Findings Encounter Date Assess migraine headache Medical Establi shed Patient with Rosana Alaniz [facility] 11/20/2018 Diabetes Risk Test Score was three score Medical Established Patient with Rosana [facility] 11/20/2018 Obesity due to excess calories Medical E stablished Patient with Rosana [facility] 11/20/2018 Z68.34 - Body mass index (BM I) 34.0-34.9 adult Medical Established Patient with Rosana Alaniz [facility] 11/20/2018 M25.572 - Pain in left ankle and joints of left foot Chart Update with Primitivo Lujan [facility] 10/25/2018 Assess open wound of the jacinto d, complicated Medical Established Patient with Rosana Alaniz [facility] 06/15/2018 Body mass index Medical Established Patient with Rosana Alaniz [facility] 06/15/2018 Assess dermatitis Chart Update with Rosana Alaniz [facility] 06/01/2018 Instructions Instructions not supported for this [...] Procedures VL DUP LOWER EXTREMITY VENOUS LEFT Pensiero, Christopher A, DPM [address] [facility] [address] [place] [address] Reason Would like to b [place]e seen [place]-- psychaitry for ADD treatment, matthew like to see ana martinez if available 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), predominantly inattentive type (F90.0) Referral Organization [facility] [employer] [place] Referring Provider First Name Berenice Referring Provider Last Name Rohrbacher Referring Provider Specialty Nurse Pract itioner Referred Organization [facility] [employer] Referred Address [address] [place] [place], [place],[address] Referred Provider Specialty Psychiatry Referral Priority Routine General Notes Katina Winter 03:07:30 PM >received today, waiting for notes to be locked to fax Reason *FU 09/29 evaluate -- would like scheduled [place] Diagnosis 1 Lupus (M32.9) Diagnosis 2 Fibromyalgia (M79.7) Referral Organization [facility] [employer] [place] Referring Provider First Name Berenice Referring Provider Last Name Rohrbacher Referring Provider Specialty Nurse Pract itioner Referred Organization [facility] Referred Address [address] [facility] [address],[address] Referred Provider Specialty Rheumatology Referral Priority Routine General Notes Katina Winter 03:28:37 PM >received today, notes locked, ins attached, referral faxed Clinical Notes Dr. Colindres P: [id number] F: [id number] Reason evaluate Diagnosis 1 Hepatitis C virus in fection without hepatic coma, unspecified chronicity (B19.20) Referral Organization [facility] [employer] [place] Referring Provider First Name Berenice Referring Provider Last Name Rohrbacher Referring Provider Specialty Nurse Pract itioner Referred Organization [facility] Referred Provider [place] [place] Referred Address [address] [facility] ,[place], [place],[address] Referred Provider Specialty Gastroentero logy Referral Priority Routine General Notes Katina Winter 03:25:06 PM >received today, sent P2P Reason would like referral to pain management in [place] Diagnosis 1 Other chronic pain ( G89.29) Diagnosis 2 Lumbago with sciatic a, left side (M54.42) Diagnosis 3 History of back surg maria luz (Z98.890) Diagnosis 4 Cervical back pain w ith evidence of disc disease (M50.90) Referral Organization [facility] [place] Referring Provider First Name Berenice Referring Provider Last Name Leslyrbacher Referring Provider Specialty Nurse Pract itioner Referred Organization [facility] Referred Address [address] [place], [place],[address] Referred Provider Specialty Pain Medicin e Referral Priority Routine Specialty Diagnoses / Procedures Referred By Contac t Referred To Contact Radiology Diagnoses Neck pain Low back pain, unspecified back pain laterality, unspecified chronicity, unspecified whether sciatica present Procedures CT lumbar spine with contrast Elayne Luciano MD [address] [place] [address] # [address] [place] [address] Referral ID Status Reason Start Date Expiration Date V isits Requested Visits Authorized [id number] Authorized 08/26/2023 08/25/2024 1 1 Specialty Diagnoses / Procedures Referred By Contac t Referred To Contact Radiology Diagnoses Neck pain Low back pain, unspecified back pain laterality, unspecified chronicity, unspecified whether sciatica present Procedures CT cervical spine with contrast Elayne Luciano MD [address] [place] [address] # [address] [place] [address] Referral ID Status Reason Start Date Expiration Date V isits Requested Visits Authorized [id number] Authorized 08/26/2023 08/25/2024 1 1 Specialty Diagnoses / Procedures Referred By Contac t Referred To Contact Radiology Diagnoses Neck pain Low back pain, unspecified back pain laterality, unspecified chronicity, unspecified whether sciatica present Procedures IR myelogram 2+ regions complete Elayne Luciano MD [address] [place] [address] # [address] [place] [id number] Referral ID Status Reason Start Date Expiration Date V isits Requested Visits Authorized [id number] Pending Review 08/26/2023 08/25/2024 1 1 Specialty Diagnoses / Procedures Referred By Contac t Referred To Contact Diagnoses Lumbar radiculopathy Spinal stenosis of lumbar region with neurogenic claudication Procedures Case request operating room: INJECTION BLOCK EPIDURAL STEROID LUMBAR/SACRAL Right L 5,1 NR Jaswant Hussein, PA-C [address], [address] [place] [id number] Referral ID Status Reason Start Date Expiration Date V isits Requested Visits Authorized [id number] Pending Review 05/04/2023 05/03/2024 1 1 Specialty Diagnoses / Procedures Referred By Contac t Referred To Contact Diagnoses Lumbar radiculopathy Procedures Case request operating room: INJECTION BLOCK EPIDURAL CAUDAL STEROID Renetta Elizalde, PA [address], [address] [place] [id number] Referral ID Status Reason Start Date Expiration Date V isits Requested Visits Authorized [id number] Pending Review 05/31/2023 05/30/2024 1 1 Specialty Diagnoses / Procedures Referred By Contac t Referred To Contact Diagnoses Intervertebral disc stenosis of neural canal of cervical region Procedures Case request operating room: INJECTION SPINE TRANSFORAMINAL LEFT C6, C7 N. ROOT Yumiko Elizalde, MOBILE CRANE OPERATOR-TONG CARRIER [address] [place] [address] Referral ID Status Reason Start Date Expiration Date V isits Requested Visits Authorized [id number] Pending Review 10/25/2023 10/24/2024 1 1 Chief Complaint and Reason for [...] and content) DATE CREATED AUTHOR 08/25/2017 [facility] DATE CREATED AUTHOR AUTHOR'S ORGANIZ ATION 08/31/2017 [facility] DATE CREATED AUTHOR AUTHOR'S ORGANIZ ATION 10/25/2017 [facility] DATE CREATED AUTHOR AUTHOR'S ORGANIZ ATION 01/07/2018 [facility] DATE CREATED AUTHOR AUTHOR'S ORGANIZ ATION 01/29/2019 [facility] DATE CREATED AUTHOR AUTHOR'S ORGANIZ ATION 07/11/2020 [facility] DATE CREATED AUTHOR AUTHOR'S ORGANIZ ATION 06/07/2022 [facility] DATE CREATED AUTHOR AUTHOR'S ORGANIZ ATION 09/08/2022 [facility] DATE CREATED AUTHOR AUTHOR'S ORGANIZ ATION 08/28/2023 [facility] DATE CREATED AUTHOR AUTHOR'S ORGANIZ ATION 08/30/2023 [facility] DATE CREATED AUTHOR AUTHOR'S ORGANIZ ATION 09/23/2023 [facility] DATE CREATED AUTHOR AUTHOR'S ORGANIZ ATION 01/29/2024 [facility] DATE CREATED AUTHOR AUTHOR'S ORGANIZ ATION 04/20/2024 [facility] Reason for Visit (unrecogniz ed section [...] a car in the parking lot @ [facility]. Narcan 7 mg IN per EMS. Status Reason Specialty Diagnoses / Procedures Referred By Contact Referred To Contact Open Vascular Lab Diagnoses Calf swelling Calf pain Procedures [facility] DUPLEX EXTREM VENOUS,UNI OR LTD Misbah Oreilly, DPM [address] [place] [address] [facility] [address] [place] [address] Reason Comments Other , med clear for usp. Reason Comments Back Pain Hip Pain Reason Comments Follow-up ep/follow up after p ain management Reason Onset Date Comments Med Refill 04/27/2023 Reason Comments Back Pain Reason Comments Med Refill Reason Onset Date Comments Myelo/CT results & Med refill 09/22/2023 Reason Onset Date Comments Med Refill 09/23/2023 Reason Comments Follow-up ep/reveiw myelogram results Reason Comments Back Pain Neck Pain Evaluations [...] (New Bag - Prov ider: Danyel Mccormick, LETICIA)[phone] (Stopped - Provider: Masha Martinez RN) Care Teams (unrecognized sec tion and content) Team Status: Inactive Member Role Status Dates Berenice Haile APRN CONVEYOR LINE BATTERY CHARGER-C Attending Provider Act valery Team Status: Active Member Role Status Dates Berenice Haile APRN CONVEYOR LINE BATTERY CHARGER-C Primary Care Provider Active Team Status: Inactive Member Role Status Dates Berenice Haile APRN CONVEYOR LINE BATTERY CHARGER-C Attending Provider Act valery PHYSICIAN NO FAMILY Primary Care Provider Active Team Status: Inactive Member Role Status Dates Berenice Haile APRN CONVEYOR LINE BATTERY CHARGER-C Primary Care Provider Active Ladarius Pitts APRN Attending Provider Active Team Status: Active Member Role Status Dates Lola Montgomery APRN CONVEYOR LINE BATTERY CHARGER-C Primary Care Provider Active Team Status: Inactive Member Role Status Dates Johana Hansen CONVEYOR LINE BATTERY CHARGER-C Attending Provider Active Lola Montgomery APRN CONVEYOR LINE BATTERY CHARGER-C Primary Care Provider Active Binding Cutter Relationship Specialty Start Date End Date DanteBerenice cokerJEREMIAS [address] [facility] [place] [address] PCP - General Family Medicine 04/11/23 Binding Cutter Relationship Specialty Start Date End Date Berenice Haile CONVEYOR LINE BATTERY CHARGER [address] [facility] [place] [address] PCP - General Family Medicine 04/11/23 Team Status: Inactive Member Role Status Dates Berenice Haile APRN CONVEYOR LINE BATTERY CHARGER-C Attending Provider Act valery Start: March 21, 2023 End: March 21, 2023 Team Status: Active Member Role Status Dates Lola Montgomery APRN CONVEYOR LINE BATTERY CHARGER-C Primary Care Provider Active Start: April 19, 2023 Jaimie Durand Attending Provider Active Start: April 19, 2023 Team Status: Active Member Role Status Dates Berenice Haile APRN CONVEYOR LINE BATTERY CHARGER-C Primary Care Provider Active Start: April 282023 Jaimie Durand Attending Provider Active Start: April 28, 2023 Team Status: Inactive Member Role Status Dates Berenice Haile APRN CONVEYOR LINE BATTERY CHARGER-C Primary Care Provider, Attending Provider Active Start: May 26, 2023 End: May 26, 2023 Team Status: Active Member Role Status Dates Lola Montgomery APRN CONVEYOR LINE BATTERY CHARGER-C Primary Care Provider Active Start: April 19, 2023 Jaimie Durand LPN Attending Provider Active S tart: April 19, 2023 Team Status: Active Member Role Status Dates Berenice Haile APRN CONVEYOR LINE BATTERY CHARGER-C Primary Care Provider Active Start: April 282023 Jaimie Durand LPN Attending Provider Active S tart: April 28, 2023 Team Status: Inactive Member Role Status Dates Berenice Haile APRN CONVEYOR LINE BATTERY CHARGER-C Primary Care Provider Active Start: June 15, 2023 End: June 15, 2023 Nazario Torres DO Emergency Provider Active Start: June 15, 2023 End: June 15, 2023 Team Status: Active Member Role Status Dates Berenice Haile APRN CONVEYOR LINE BATTERY CHARGER-C Primary Care Provider Active Start: August 15, 2023 Blake Corea DO Attending Provider Active Start : August 15, 2023 Team Status: Inactive Member Role Status Dates Berenice Haile APRN CONVEYOR LINE BATTERY CHARGER-C Primary Care Provider, Attending Provider Active Start: October 06, 2023 End: October 06, 2023 Binding Cutter Relationship Specialty Start Date End Date Berenice Haile NP [address] [place], [place] [id number] PCP - General Family Medicine 04/11/23 Savana Espinosa PCP - NOMS Meng [facility] 09/05/23 Binding Cutter Relationship Specialty [place] [address] [place] [address] PCP - General Family Medicine 04/11/23 Binding Cutter Relationship Specialty [place] [address] [place] [address] PCP - General Family Medicine 04/11/23 Binding Cutter Relationship Specialty Start Date End Date Berenice Haile NP [address] [place] [address] [place] [address] PCP - General Family Medicine 04/11/23 Savana Espinosa PCP - NOMJak [facility] 09/05/23 Binding Cutter Relationship Specialty Start Date End Date Tere Perez APRN-TONG CARRIER [address] [place] [phone] PCP - General Nurse Practitioner 06/01/23 Binding Cutter Relationship Specialty Start Date End Date Berenice Haile APRN-CONVEYOR LINE BATTERY CHARGER [address] [facility] [place] [address] PCP - General Nurse Practitioner 01/17/23 Binding Cutter Relationship Specialty Start Date End Date Tere Perez APRN-TONG CARRIER PCP - General Nurse Practitioner 06/01/23 Binding Cutter Relationship Specialty Start Date End Date Tere Perez APRN-TONG CARRIER [address] [place] [id number] PCP - General Nurse Practitioner 06/01/23 Binding Cutter Relationship Specialty Start Date End Date Berenice Haile APRN-NP [address] [facility] [place] [address] PCP - General Nurse Practitioner 01/17/23 Binding Cutter Relationship Specialty Start Date End Date Tere Perez APRN-TONG CARRIER [address] [place] [phone] PCP - General Nurse Practitioner 06/01/23 Binding Cutter Relationship Specialty Start Date End Date Lazara BereniceGENOVEVA-CONVEYOR LINE BATTERY CHARGER [address] [facility] [place] [address] PCP - General Nurse Practitioner 01/17/23 Binding Cutter Relationship Specialty Start Date End Date Maral HaileferGENOVEVA-CONVEYOR LINE BATTERY CHARGER [address] [facility] [address] PCP - General Nurse Practitioner 01/17/23 Binding Cutter Relationship Specialty Start Date End Date Berenice Haile APRN-CONVEYOR LINE BATTERY CHARGER [address] [facility] [address] PCP - General Nurse Practitioner 01/17/23 Binding Cutter Relationship Specialty Start Date End Date Lazara BereniceTYLORCONVEYOR LINE BATTERY CHARGER [address] [facility] [address] PCP - General Nurse Practitioner 01/17/23 Binding Cutter Relationship Specialty Start Date End Date Tere Perez MOBILE CRANE [facility] [address] [place] [phone] PCP - General Nurse Practitioner 06/01/23 Binding Cutter Relationship Specialty Start Date End Date Tere Perez [facility] [address] [place] [address] PCP - General Nurse Practitioner 06/01/23 Binding Cutter Relationship Specialty Start Date End Date Tere Perez MOBILE CRANE [facility] [address] [place] [address] PCP - General Nurse Practitioner 06/01/23 Binding Cutter Relationship Specialty Start Date End Date LazaraBereniceTYLORCONVEYOR LINE BATTERY CHARGER [address] [facility] [address] PCP - General Nurse Practitioner 01/17/23 Binding Cutter Relationship Specialty Start Date End Date CarolineBerenice hansenTYLORCONVEYOR LINE BATTERY CHARGER [address] [place] [address] PCP - General Nurse Practitioner 01/17/23 05/31/23 Binding Cutter Relationship Specialty Start Date End Date Tere Perez [facility] PCP - General Nurse Practitioner 06/01/23 Binding Cutter Relationship Specialty Start Date End Date Tere Perez APRN-[facility] [address] [place] [address] PCP - General Nurse Practitioner 06/01/23 Binding Cutter Relationship Specialty Start Date End Date Tere Perez [facility] PCP - General Nurse Practitioner 06/01/23 Binding Cutter Relationship Specialty Start Date End Date Tere Perez APRN-TONG CARRIER PCP - General Nurse Practitioner 06/01/23 Binding Cutter Relationship Specialty Start Date End Date Tere Perez APRN-TONG CARRIER PCP - General Nurse Practitioner 06/01/23 Binding Cutter Relationship Specialty Start Date End Date Tere Perez, GENOVEVA-TONG CARRIER PCP - General Nurse Practitioner 06/01/23 Goals [...] BE BASED ON THE PRIMARY CLINICAL RECORDS. [employer] [facility]. provides no warranty or guarantee of the accuracy or completeness of information in this document.
[2024-05-28 12:12] LABS: Progesterone 0.2 ng/mL (.)
== END 2024-05-26 12:52 | disposition home or self-care (01) ==
PROVIDERS: PCP Nurse Practitioner; Visit Provider Obstetrics & Gynecology
DX: N97.0 Female infertility associated with anovulation (principal)
CPT/HCPCS: 36415; 84144

== ENCOUNTER 2024-06-02 20:02 | Emergency (ER) | payer MEDICAID, SELFPAY ==
[2024-06-02 20:10] VITALS: BP 132/93; PULSE 110; TEMP 36.8; O2SAT 96; BMI 25.3
--- OUTSIDE RECORDS SUMMARY | 2024-06-02 20:12 | XMS_ITS | CCD ---
Author Organization [facility] Care Team Providers Care Towel Distributor Name Role Phone CHANO FRANKLIN Unavailable Unavailable [...] Unavailable Katty, Rosana M Primary Care Provider [phone] Katty, Rosana Unavailable Katty, Rosana Primary Care Provider JENNIFER WHALEY Attending Unavailable KATTY ROSANA M Primary Care Unavailable KATTY ROSANA M Primary Care Unavailable WAYLON MONTOYA Attending Unavailable Katty, Rosana Primary Care Provider Katty AREVALO, Rosana Primary Care Provider [phone] KATTY, ROSANA Primary Care Unavailable KATTY, ROSANA Referring Unavailable ALEYDA GOMEZ Admitting Unavailable ALEYDA GOMEZ Attending Unavailable Katty LEGUILLON DEBEADER - IRINA Rosana M Primary Care Provider Agus Madera Unavailable Liz Billingsley Unavailable ROSALIA Killian, DR SUTTON Admitting Unavailryne LINDSEY ., DR SUTTON Attending Unavailabl e AICHHOLZ, FRAMING AND HANGING TERE Primary Care Unavailable DR LESLEY HAWKINS Consulting Unavailabl e AICHHOLZ, FRAMING AND HANGING TERE Admitting Unavailable AICHHOLZ, FRAMING AND HANGING TERE Attending Unavailable AICHHOLZ, FRAMING AND HANGING TERE Primary Care Unavailable AICHHOLZ, FRAMING AND HANGING TERE Consulting Unavailable AICHHOLZ, FRAMING AND HANGING TERE Admitting Unavailable AICHHOLZ, FRAMING AND HANGING TERE Attending Unavailable AICHHOLZ, FRAMING AND HANGING TERE Primary Care Unavailable AICHHOLZ, FRAMING AND HANGING TERE Consulting Unavailable DR Arthur MADERA Admitting Unavailable DR Arthur MADERA Attending Unavailable AICHHOLZ, FRAMING AND HANGING TERE Primary Care Unavailable BRIGIDA RAHMAN Attending Unavailable SILVESTRE PHIPPS Primary Care Unavailryne e Berenice Haile Unavailable [phone] GENOVEVA Haile Attending Provider GENOVEVA Haile Attending Provider NO FAMILY, PHYSICIAN Primary Care Provider Unava ilable GENOVEVA Haile Primary Care Provider GENOVEVA Pitts Attending Provider Ladarius Pitts Unavailable GENOVEVA Haile Primary Care Provider GENOVEVA Pitts Attending Provider EVANGELINA Hansen Attending Provider GENOVEVA Montgomery Primary Care Provider Berenice Haile NP Primary Care Provider GENOVEVA [...] Unavailab le Johan Enriquez Attending [facility]availab le [facility], [facility] Primary Care Unavailable Aichholz LEGUILLON DEBEADER-FRAMING AND HANGING, [facility] Primary Care Provider Rohrbacher LEGUILLON DEBEADER-TEAM DRIVER, [facility] Primary Care [facility] er Aicholz LEGUILLON DEBEADER-FRAMING AND HANGING, [facility] Primary Care Provider JASWANT HUSSEIN Attending Unavailable LESLYRBACHER, BERENICE Referring Unavailable [facility] Primary Care Unavailable ANUP BUTLER Attending Unavailable ANUP BUTLER E Referring Unavailable ROHRBACHER, [facility] Primary Care Unavailable PAGE ANUP E Admitting Unavailable BUTLERANUP KEMP Attending Unavailable ROHRBACHER, BERENICE Referring Unavailable ROHRBACHER, [facility] Primary Care Unavailable LAITH BECK Attending Unavailable ROHRBACHER, [facility] Primary Care Unavailable RENETTA ELIZALDE Attending Unavailable ROHRBACHER, BERENICE Referring Unavailable ROHRBACHER, [facility] Primary Care Unavailable KYLAH AMADO Attending Unavailable [...] Primary Care Unavailable Berenice Dempsey Primary Care [facility] er Ana TOMAS-Tere AREVALO Primary Care Provider Allergies Allergy Classification Reported Allergen(s) Allergy Type Date of Onset Reaction(s) Facility Acetaminophen / Codeine (1 source) Acetaminophen / Codeine; Translations: [ACETAMINOPHEN-CODE INE] Drug Allergy 019 [facility] Repository Cephalosporins (antibiotic) (3 sources) Cefaclor; Translations: [CEPHALOSPORINS] Drug Allergy 015 [facility] Repository NSAIDs (2 sources) NSAIDs; Translations: [IBUPROFEN] Drug Allergy 016 [facility] Repository Opioid Agonists (2 sources) fentaNYL; Translations: [CODEINE] Drug Allergy 017 Fentanyl [facility] Repository Penicillins (antibiotic) (7 sources) Penicillins; Translations: [AMOXICILLIN] Drug Allergy 015 Shock [facility] Repository Sulfamethoxazole / Trimethoprim (1 source) Sulfamethoxazole / Trimethoprim Drug Allergy 020 Skin Rashes [facility] Work Phone: Unclassified (1 source) TYLENOL CODEINE #3; Translations: [TYLENOL CODEINE #3] Propensity to adverse reactions (disorder) 015 [facility] Repository (20 sources) amoxicillin; Translations: [amoxicillin] Drug Allergy 017 [facility], Unknown, Unknown Reaction [facility] Repository (20 sources) ampicillin; Translations: [Ampicillin] Drug Allergy [facility] (20 sources) Penicillins; Translations: [PENICILLINS] Allergy to substance (disorder) 013 Anaphylaxis, Shock, Hives, Rash [facility] (20 sources) Vespid (bees, hornets, wasps, yellow jackets); Translations: [Vespid (bees, hornets, wasps, yellow jackets)] Allergy to substance (disorder) [facility] (6 sources) -No Known Food Allergies Allergy to substance (disorder) [facility] (1 source) penicillin; Translations: [PENICILLIN] Drug Allergy 018 AOF [facility] Repository (4 sources) amoxicillin; Translations: [amoxicillin] Drug Allergy [facility] (4 sources) ampicillin; Translations: [Ampicillin] Drug Allergy [facility] (20 sources) Amoxicillin Drug Allergy 015 Anaphylaxis, Rash, Hives [place], [place] (20 sources) Cefaclor; Translations: [CEFACLOR] Drug Allergy 015 Hives, Anaphylaxis, Other (See Comments) [place], [place] (20 sources) Codeine; Translations: [CODEINE] Drug Allergy 015 Hives, Rash [facility] [place] (16 sources) NSAIDs; Translations: [NSAIDS (Non-Steroidal Anti-Inflammatory Drug)] Allergy to substance 016 [facility] Repository (10 sources) fentaNYL Drug Allergy Fentanyl [facility] Work Phone: (9 sources) Sulfamethoxazole / Trimethoprim Drug Allergy 020 Skin Rashes [facility] Work Phone: (16 sources) Cefaclor; Translations: [Ceclor] Drug Allergy 013 Unknown [facility] Repository (20 sources) Penicillin G Drug Allergy 018 Anaphylaxis, Rash, Unknown [employer] Other (2 sources) Amoxicillin Drug Allergy [facility] Repository (2 sources) Codeine Drug Allergy [facility] Repository (2 sources) Acetaminophen Drug Allergy Unknown Reaction [facility] (14 sources) Latex; Translations: [latex] Allergy to substance Unknown Reaction, Rash [facility] (20 sources) Acetaminophen / Codeine; Translations: [ACETAMINOPHEN-CODE INE] Drug Allergy 019 Hives [facility] Work Phone: (9 sources) Non-steroidal anti-inflammatory agent Drug Allergy 023 [facility] (7 sources) Wound Dressing Adhesive Drug Allergy [facility] (1 source) Amoxicillin Drug Allergy [facility] Repository (1 source) Cefaclor Drug Allergy [facility] Repository (1 source) Codeine Drug Allergy [facility] Repository (1 source) Penicillin Drug Allergy [facility] Repository Medications Current Medications Medication Drug Class(es) [...] Start: 10-15-2018 take 2 tablets by mo [facility] every eight hours as needed for pain [...] - 02/04/2020 Provider: take 1 capsule by [facility] every twenty-four hours Adderall XR 20 [...] CNP Start: 12-09-2016 take 2 tablets by [facility] once daily, then take 1 tablet by [...] Provider: Start: 04-01-2018 End: 04-01-2018 CYPROHEPTADINE 4MG [facility] 03/08 - 04/01/2018 Provider: take 1 [...] Start: 12-01-2022 take 1 capsule by mo [facility] at bedtime lisdexamfetamine (VYVANSE) 30 mg capsule [...] Pack 01/04/2019 - 01/10/2019 Provider: Primitivo Lujan [employer]ANGING mirtazapine 15 mg oral tablet (12 sources) [...] - 07/16/2019 Provider: Rosana Alaniz CNP nystatin 572872 unt/ml / triamcinolone acetonide 1 mg/ml topical cream (20 sources) Polyene Antifungal, Corticosteroid Start: 11-20-2018 End: 02-20-2019 Nystatin-Triamcinolone 405408-7.1 UNIT/GM-% External Cream 02/20/2019 Provider: Rosana Alaniz [...] Start: 04-01-2018 End: 02-04-2020 ONDANSETRON 4 mg [facility] 2018 - 02/04/2020 Provider: Start: 04-01-2018 End: 04-01-2018 ONDANSETRON 4 mg [facility] 2018 - 04/01/2018 Provider: take 1 tablet [...] 04-01-2018 End: 02-04-2020 POTASSIUM CHLORIDE 20 mEq [facility] 04/01/2018 - 02/04/2020 Provider: Start: 04-01-2018 End: 04-01-2018 POTASSIUM CHLORIDE 20 mEq [facility] 04/01/2018 - 04/01/2018 Provider: Start: 07-14-2017 End: 02-04-2020 POTASSIUM CHLORIDE 20 mEq [facility] 07/14/2017 - 02/04/2020 Provider: Start: 07-14-2017 End: 07-14-2017 POTASSIUM CHLORIDE 20 mEq [facility] 07/14/2017 - 07/14/2017 Provider: Start: 07-14-2017 [...] Start: 04-01-2018 End: 02-04-2020 LYRICA 225 MG [facility] 02/04/2020 Provider: Start: 04-01-2018 End: 04-01-2018 LYRICA 225 MG [facility] - 04/01/2018 Provider: Start: 04-01-2018 End: [...] Start: 08-16-2017 End: 02-04-2020 VALACYCLOVIR 500 mg [facility] 02/2018 - 02/04/2020 Provider: Start: 08-16-2017 End: 08-16-2017 VALACYCLOVIR 500 mg [facility] 02/2018 - 08/16/2017 Provider: Start: 04-24-2016 End: [...] End: 04-01-2018 CYANOCOBALAMIN (VITAMIN B-12 ) 1,000MCG/ML [facility] 04/01/2018 - 04/01/2018 Provider: Start: 02-16-2018 [...] th twice daily as needed for headache odeoijunhb-yvifirvcsydua-nzlzfdnx (FIORICET, ESGIC) 50-325-40 MG per tablet Take [...] oral solution (17 sources) alpha-Adrenergic Agonist, Uncompetitive D-venqid-E-aspartate Receptor Antagonist, Sigma-1 Agonist Start: 03-29-2017 take [...] 08-18-2017 End: 08-18-2017 BROMFED DM 2-30-10MG/5 ML [facility] 08/18/2017 - 08/18/2017 Provider: Start: 03-29-2017 End: 02-04-2020 BROMFED DM 2-30-10 MG/5 ML M ISC 03/29/2017 - 02/04/2020 Provider: Start: 03-29-2017 End: 03-29-2017 BROMFED DM 2-30-10 MG/5 ML M ISC 03/29/2017 - 03/29/2017 Provider: Start: 03-29-2017 End: 03-29-2017 BROMFED DM 2-30-10MG/5 ML [facility] 03/29/2017 - 03/29/2017 Provider: Start: 01-06-2017 End: 02-04-2020 BROMFED DM 2-30-10 MG/5 ML M ISC 01/06/2017 - 02/04/2020 Provider: Start: 01-06-2017 End: 01-06-2017 BROMFED DM 2-30-10 MG/5 ML M ISC 01/06/2017 - 01/06/2017 Provider: Start: 01-06-2017 End: 01-06-2017 BROMFED DM 2-30-10MG/5 ML [facility] 01/06/2017 - 01/06/2017 Provider: Calcium (20 [...] WITH VITAMIN D3 600 mg(1,500mg) -400 UNIT [facility] 04/01/2018 - 02/04/2020 Provider: Start: 11-24-2017 End: 02-04-2020 CALCIUM 600 WITH VITAMIN D3 600 mg(1,500mg) -400 UNIT [facility] 11/24/2017 - 02/04/2020 Provider: CALCIUM 600 WITH VITAMIN D3 600 mg(1,500mg)-400 UNIT MISC (6 sources) Start: 04-01-2018 End: 04-01-2018 CALCIUM 600 WITH VITAMIN D3 600 mg(1,500mg)-400 UNIT [facility] 04/01/2018 - 04/01/2018 Provider: Start: 11-24-2017 End: 11-24-2017 CALCIUM 600 WITH VITAMIN D3 600 mg(1,500mg)-400 UNIT [facility] 11/24/2017 - 11/24/2017 Provider: calcium carbonate 1500 [...] Start: 08-16-2017 End: 02-04-2020 ZYRTEC 10 mg [facility] 08/16/2017 - 02/04/2020 Provider: Start: 08-16-2017 End: 08-16-2017 ZYRTEC 10 mg [facility] 08/16/2017 - 08/16/2017 Provider: Clindamycin (20 sources) [...] Start: 04-01-2018 End: 04-01-2018 DEXTROAMPHETAMINE-AMPHETAMIN E 30MG [facility] 04/01/2018 - 04/01/2018 Provider: diazePAM 5 mg [...] Start: 04-01-2018 End: 02-04-2020 DULOXETINE 60 MG [facility] 04/01/2018 - 02/04/2020 Provider: Start: 04-01-2018 End: 04-01-2018 DULOXETINE 60 MG [facility] 2018 - 04/01/2018 Provider: Start: 04-01-2018 End: 04-01-2018 DULOXETINE 60MG [facility] 019 - 04/01/2018 Provider: take 1 capsule by mo [facility] once daily duloxetine 60 mg oral capsule,delayed [...] Glucose Scanning Reade r (Freestyle Vy 2 Gibson) misc (3 sources) Start: 04-28-2023 End: 10-06-2023 Flash Glucose Scanning Reade r (Freestyle Vy 2 Gibson) misc Discontinued 0 .Route 1 April 28, 2023 1:00am October 06, 2023 1:18pm As directed Start: 04-28-2023 Flash Glucose Scanning Gibson (Freestyle Vy 2 Gibson) misc Active 0 .Route 1 April 28, [...] needed for Pain. 0 Active lactobacillus acidophilus [id number] unt oral capsule (9 sources) Start: 02-16-2018 take 1 capsule by mouth once daily Probiotic 10 billion cell oral capsule 02/16/2018 take 1 capsule by oral route daily Start: 02-01-2017 take 1 capsule by mo [facility] once daily Probiotic 10 billion cell oral capsule 02/01/2017 take 1 capsule by oral route daily loperamide hydrochloride 2 mg oral tablet (20 sources) Opioid Agonist Start: 01-06-2017 End: 02-04-2020 Imodium A-D 2 MG OR TABS 01/06/2017 - 02/04/2020 Provider: MAXALT-ARCHITECTURAL TECHNOLOGIST 10 MG MISC (20 sources) Start: 01-25-2018 End: 01-25-2018 MAXALT-ARCHITECTURAL TECHNOLOGIST 10 MG MISC 01/25/2018 - 01/25/2018 Provider: Start: 08-16-2017 End: 08-16-2017 MAXALT-ARCHITECTURAL TECHNOLOGIST 10 MG MISC 2017 - 08/16/2017 Provider: Start: 05-20-2017 End: 05-20-2017 MAXALT-ARCHITECTURAL TECHNOLOGIST 10 MG MISC 2017 - 05/20/2017 Provider: Start: 02-01-2017 End: 02-01-2017 MAXALT-ARCHITECTURAL TECHNOLOGIST 10 MG MISC 2016 - 02/01/2017 Provider: MAXALT-ARCHITECTURAL TECHNOLOGIST 10 MG MISC (10 sources) Start: 01-25-2018 End: 02-04-2020 MAXALT-ARCHITECTURAL TECHNOLOGIST 10 MG MISC 2017 - 02/04/2020 Provider: Start: 08-16-2017 End: 02-04-2020 MAXALT-ARCHITECTURAL TECHNOLOGIST 10 MG MISC 2017 - 02/04/2020 Provider: Start: 05-20-2017 End: 02-04-2020 MAXALT-ARCHITECTURAL TECHNOLOGIST 10 MG MISC 2017 - 02/04/2020 Provider: Start: 02-01-2017 End: 02-04-2020 MAXALT-ARCHITECTURAL TECHNOLOGIST 10 MG MISC 2016 - 02/04/2020 Provider: MAXALT-ARCHITECTURAL TECHNOLOGIST 10MG MISC (15 sources) Start: 01-25-2018 End: 01-25-2018 MAXALT-ARCHITECTURAL TECHNOLOGIST 10MG MISC 018 - 01/25/2018 Provider: Start: 08-16-2017 End: 08-16-2017 MAXALT-ARCHITECTURAL TECHNOLOGIST 10MG MISC 018 - 08/16/2017 Provider: Start: 05-20-2017 End: 05-20-2017 MAXALT-ARCHITECTURAL TECHNOLOGIST 10MG MISC 018 - 05/20/2017 Provider: Start: 02-01-2017 End: 02-01-2017 MAXALT-ARCHITECTURAL TECHNOLOGIST 10MG MISC 017 - 02/01/2017 Provider: Medical Compression Stocking s Miscellaneous (11 sources) Start: 01-04-2019 End: 02-03-2019 Medical Compression Stockings Miscellaneous 01/04/2019 - 02/03/2019 Provider: Primitivo Lujan CNP Medical Compression Stocking s Miscellaneous (2 sources) Start: 01-04-2019 End: 02-03-2019 Medical Compression Stockings Miscellaneous 01/04/2019 - 02/03/2019 Provider: Primitivo Lujan [employer]AMING [employer] HANGING 1 ml medroxyPROGESTERone acetate 150 mg/ml injection (20 sources) Progestin Start: 05-05-2018 Depo-Provera 1 50 MG/ML IM SUSP 01/04/2019 Primitivo Huffmankamilah [employer]AMING AND HANGING Start: 04-01-2018 End: 02-04-2020 DEPO-PROVERA MISC 04/01/2018 [...] TABS 01/19/2018 - 02/04/2020 Provider: polymyxin b 24802 unt/ml / trimethoprim 1 mg/ml ophthalmic solution [...] - 02/04/2020 Provider: PROBIOTIC 10 billion CELL [place] (20 sources) Start: 02-16-2018 End: 02-16-2018 PROBIOTIC 10 billion CELL MISC 02/16/2018 - 02/16/2018 Provider: Start: 02-01-2017 End: 02-01-2017 PROBIOTIC 10 billion CELL [facility] 02/01/2017 - 02/01/2017 Provider: PROBIOTIC 10 billion CELL [place] (4 sources) Start: 02-16-2018 End: 02-04-2020 PROBIOTIC 10 billion CELL [place] 02/16/2018 - 02/04/2020 Provider: Start: 02-01-2017 End: 02-04-2020 PROBIOTIC 10 billion CELL [place] [facility] 02/01/2017 - 02/04/2020 Provider: PROBIOTIC 10 [...] Start: 05-05-2018 take 1 capsule by mo [facility] every twenty-four hours Propranolol HCl ER 160MG Oral Capsule Extended Release 24 Hour 05/05/2018 Provider: Start: 04-01-2018 End: 02-04-2020 PROPRANOLOL 160 MG [facility] 04/01/2018 - 02/04/2020 Provider: Start: 04-01-2018 End: 04-01-2018 PROPRANOLOL 160 MG [facility] 04/01/2018 - 04/01/2018 Provider: Start: 04-01-2018 End: 04-01-2018 PROPRANOLOL 160MG [facility] 04/01 - 04/01/2018 Provider: Start: 11-24-2017 take 1 capsule by mouth once d aily propranolol 160 mg oral capsule,extended release 24 hr 11/24/2017 take 1 capsule (160 mg) by oral route once daily Start: 11-24-2017 End: 02-04-2020 PROPRANOLOL 160 MG [facility] 11/24/2017 - 02/04/2020 Provider: Start: 11-24-2017 End: 11-24-2017 PROPRANOLOL 160 MG [facility] 11/24/2017 - 11/24/2017 Provider: Start: 11-24-2017 End: 11-24-2017 PROPRANOLOL 160MG [facility] 11/24 - 11/24/2017 Provider: Start: 05-26-2017 take 1 capsule by mouth once d aily propranolol 160 mg oral capsule,extended release 24 hr 05/26/2017 take 1 capsule (160 mg) by oral route once daily Start: 05-26-2017 End: 02-04-2020 PROPRANOLOL 160 MG [facility] 05/26/2017 - 02/04/2020 Provider: Start: 05-26-2017 End: 05-26-2017 PROPRANOLOL 160 MG [facility] 05/26/2017 - 05/26/2017 Provider: Start: 05-26-2017 End: 05-26-2017 PROPRANOLOL 160MG [facility] 05/26 - 05/26/2017 Provider: take 1 tablet [...] 01/21/2019 Provider: Rosana Alaniz CNP Start: 01-25-2018 Maxalt-ARCHITECTURAL TECHNOLOGIST 10 mg oral tablet,disintegrating 01/25/2018 DISSOLVE 1 TABLET (10 MG) ON TOP OF THE TONGUE, THEN SWALLOW BY ORAL ROUTE ONCE, MAY REPEAT IN 2 HOURS, NOT AT SAME TIME IMITREX Start: 08-16-2017 Maxalt-ARCHITECTURAL TECHNOLOGIST 10 mg oral tablet,disintegrating 08/16/2017 dissolve 1 tablet (10 mg) on top of the tongue, then swallow by oral route once, may repeat in 2 hours, not at same time as imitrex Start: 08-16-2017 Maxalt-ARCHITECTURAL TECHNOLOGIST 10 mg oral tablet,disintegrating 08/16/2017 dissolve 1 [...] Start: 12-22-2017 End: 12-22-2017 VITAMIN B-12 5,000MCG [facility] 12/22/2017 - 12/22/2017 Provider: Start: 08-16-2017 End: 08-16-2017 VITAMIN B-12 5,000MCG [facility] 0 08/16/2017 - 08/16/2017 Provider: vortioxetine 10 [...] ALL PROGESTERONEon 5 PROGESTERONE 4.0 ng/mL . [facility] Comment on above: Follicular phase 0.1 - 0.9 Luteal phase 1.8 - 23.9 Ovulation phase 0.1 - 12.0 First trimester 11.0 - 44.3 Second trimester 25.4 - 83.3 Third trimester 58.7 - 214.0 Postmenopausal 0.0 - 0.1 Performed at: [address] [id number] Tester Vibrator Equipment: Sea Diaz PhD, Phone: [phone] [facility] PROGESTERONEon 5 PROGESTERONE 10.9 ng/mL . [facility] Comment on above: Follicular phase 0.1 - 0.9 Luteal phase 1.8 - 23.9 Ovulation phase 0.1 - 12.0 First trimester 11.0 - 44.3 Second trimester 25.4 - 83.3 Third trimester 58.7 - 214.0 Postmenopausal 0.0 - 0.1 Performed at: [employer] [id number] Tester Vibrator Equipment: Sea Diaz PhD, Phone: [phone] [facility] Novel TBH PREG QUANT HCGon 025 HCG QUANTITATIVE <1 mIU/mL [facility] Comment on above: 5-50 0.2-1 WEEK 50-500 1-2 WEEKS 100-5,000 2-3 WEEKS 500-10,000 3-4 WEEKS 1,000-50,000 4-5 WEEKS 10,000-100,000 5-6 WEEKS 15,000-200,000 6-8 WEEKS 10,000-100,000 2-3 MONTHS [facility]exact[facility] LtdOK [employer] ALL PROGESTERONEon PROGESTERONE 4.1 ng/mL . [facility] Comment on above: Follicular phase 0.1 - 0.9 Luteal phase 1.8 - 23.9 Ovulation phase 0.1 - 12.0 First trimester 11.0 - 44.3 Second trimester 25.4 - 83.3 Third trimester 58.7 - 214.0 Postmenopausal 0.0 - 0.1 Performed at: [employer] [id number] Tester Vibrator Equipment: Sea Diaz PhD, Phone: [phone] [facility] Novel Progesterone [Mass/Vol]on PROGESTERONE 0.2 ng/mL [facility] Comment on above: Result Comment: FEMALES: 1st Tri: 4.7-50.7 ng/ml 2nd Tri: 19.4-45.3 ng/ml MENSTRUATING FEMALES: Follicular: 0.3-1.5 ng/ml Mid Luteal: 5.2-18.6 ng/ml Post Yessy: <0.1-0.8 ng/ml Performed By: #### C BCA, 57241-2, 41651-5, 5643-2, CMP, 61463-6, 2138-7, 2157-6, 4024-6, 53337-3, 3040-3 #### [facility] ([id number]) [address] [place] [address], [place] [address] ALL PROGESTERONEon 4 PROGESTERONE 0.3 ng/mL . [facility] Comment on above: Follicular phase 0.1 - 0.9 Luteal phase 1.8 - 23.9 Ovulation phase 0.1 - 12.0 First trimester 11.0 - 44.3 Second trimester 25.4 - 83.3 Third trimester 58.7 - 214.0 Postmenopausal 0.0 - 0.1 Performed at: [employer] [id number] Tester Vibrator Equipment: Sea Diaz PhD, Phone: [phone] Novel ALL PROGESTERONEon 4 PROGESTERONE 3.2 ng/mL . [facility] Novel Comment on above: Follicular phase 0.1 - 0.9 Luteal phase 1.8 - 23.9 Ovulation phase 0.1 - 12.0 First trimester 11.0 - 44.3 Second trimester 25.4 - 83.3 Third trimester 58.7 - 214.0 Postmenopausal 0.0 - 0.1 Performed at: [facility] [id number] Tester Vibrator Equipment: Sea Diaz PhD, Phone: [employer] [facility]exact[facility] LtdBl[facility] ALL PROGESTERONEon - 4 PROGESTERONE 10.5 ng/mL . [facility] Novel Comment on above: Follicular phase 0.1 - 0.9 Luteal phase 1.8 - 23.9 Ovulation phase 0.1 - 12.0 First trimester 11.0 - 44.3 Second trimester 25.4 - 83.3 Third trimester 58.7 - 214.0 Postmenopausal 0.0 - 0.1 Performed at: [facility] [id number] Tester Vibrator Equipment: Sea Diaz PhD, Phone: [employer] [facility] Ltd[facility] Novel CREATININEon 09-15-2023 Creatinine [Mass/Vol] 0.68 mg/dL Normal 0.40-1.00 Pro [facility] Comment on above: Result Comment: METH OD TRACEABLE TO IDMS STANDARD Performed By: #### C BCA, 19579-9, 16152-9, 5643-2, CMP, 18453-2, 3298-7, 2157-6, 4024-6, 77654-8, 3040-3 #### [facility] ([id number]) [address] [place] [address] eGFR (CKD-EPI) NON-RACE DEPENDENT >90 Normal >59 [facility] Comment on above: Result Comment: Reported eGFR is based on the CKD-EPI 2020 equation that does not use a race coefficient. Performed By: #### C BCA, 05183-6, 44062-9, 5643-2, CMP, 58785-8, 3298-7, 2157-6, 4024-6, 93328-8, 3040-3 #### [facility] ([id number]) [address] [place] [address] CT CERVICAL SPINE W CONTon 0 09-15-2023 [...] Gould MD on 09/15/2023 1:31 PM Normal [facility] CT LUMBAR SPINE W CONTon CT [...] Gould MD on 09/15/2023 1:26 PM Normal [facility] IR MYELOGRAM 2+ [facility] Chang [...] cutaneous antisepsis were utilized throughout this procedure. [facility] protocol timeout verification performed. Procedure: The patient [...] Gould MD on 09/15/2023 1:05 PM Normal [facility] PLATELET COUNT AND MPVon Platelet mean volume (Bld) [Entitic vol] 8.0 fL Normal 7-12 [facility] Comment on above: Performed By: #### C TRAVIS, 88199-4, 66656-9, 5643-2, CMP, 02806- 9, 3298-7, 2157-6, 4024-6, 02696-6, 3040-3 #### [facility] ([id number]) [address] [place] [address] Platelets (Bld) [#/Vol] 262 10*3/uL Normal 150-450 [facility] Comment on above: Performed By: #### C TRAVIS, 70605-3, 47390-7, 5643-2, CMP, 63086- 9, 3298-7, 2157-6, 4024-6, 35018-9, 3040-3 #### [facility] ([id number]) [address] [place] [address] PROTIME AND INRon 09-15-2023 INR Coag (PPP) [Relative time] 1.1 {INR} Normal 0.8-1.1 [facility] Comment on above: Performed By: #### C TRAVIS, 09074-7, 79640-2, 5643-2, CMP, 99344- 9, 3298-7, 2157-6, 4024-6, 00587-8, 3040-3 #### [facility] ([id number]) 5 [place] [address] PT Coag (PPP) [Time] 12.3 s Normal 9.8-13.2 [facility] Comment on above: Result Comment: NEW REFERENCE RANGE Performed By: #### C TRAVIS, 80970-4, 44303-4, 5643-2, CMP, 39826-3, 3298-7, 2157-6, 4024-6, 45661-0, 3040-3 #### [facility] ([id number]) [address] [facility], [place] [address] XR SPINE CERVICAL FLEXION/EX TENSION ONLYon 08-29-2023 [...] by Norbert Lunsford on 08/29/2023 4:27 PM [facility] Human papilloma virus 16+18+ 31+33+35+39+45+51+52+56+58+59+66+68 DNA [Presence] in Trey 08-15-2023 HPV 16+18+31+33+35+39+45+ 51+52+56+58+59+66+68 DNA Probe+sig amp Ql (Cvx) Negative Negative [facility] Comment on above: This nucleic acid am plification test detects fourteen high- risk HPV types (16,18,31,33,35,39,45,51,52,56,58,59,66,68)without differentiation.Performed at: =[facility] [address] [id number] Director: Korin Hernandez MD, Phone: [phone] at: [facility] [id number] Director: Korin Hernandez MD, Phone: [phone] No Panel Informationon 08-14 HPV High Risk Other Comment Note . [facility] Comment on above: TESTS RESULT FLAG UN ITS REF RANGE LAB D IAGNOSIS: 02 NEGATIVE FOR INTRAEPITHELIAL LESION OR MALIGNANCY.Specimen adequacy: 02 Satisfactory for evaluation. Endocervical and/or squamous metaplastic cells (endocervical component) are present.Performed by: 02 Janeth Mercedes Java Programmer Analyst (ASCP). 02Note: Note 02 The Pap smear [...] High <-Panic Low,>-Panic High,A-Abnormal,AA-Critical Abnormal ----Performed at:[address] [address] Korin Hernandez MD, Reference Lab Test Patient Age Note . [facility] Comment on above: TESTS RESULT FLAG UN ITS REF RANGE LAB Clinician Provided Cytology Information Source.............Cervix;Endocervix No. of containers..01 ThinPrep VialAge Deysi WORKMAN Marcia... 3065 FLAG LEGEND: L-Low Normal,H-High Normal,LL-Alert Low,HH-Alert High <-Panic Low,>-Panic High,A-Abnormal,AA-Critical Abnormal ----Performed at:01 =[facility] [address] [facility] [place] [address] Korin Hernandez MD, Activated partial thrombopla stin time (aPTT) in platelet poor plasma by coagulation aOrdered By: Nazario Torres on 06-15-2023 aPTT Coag (PPP) [Time] 30.4 s 25.1-36.5 [facility] Comment on above: A hematocrit value g reater than 55% may lead to inaccurate results in coagulation testing. Patients having hematocrit values >55% require a special collection tube for coagulation studies. Please contact the laboratory at [phone] for redraw instructions. Alanine aminotransferase [En zymatic activity/volume] in Serum or PlasmaOrdered By: Nazario Torres on 06-15-2023 ALT [Catalytic activity/Vol] 42 U/L Normal 7-52 [facility] Comment on above: Performed By: #### P T, CMP, PTT, HS TROP, CBC, CK, AMM ####[facility] [id number] [place] [id number] [facility] Albumin [Mass/volume] in Ser um or Plasma by Bromocresol green (BCG) dye binding methoOrdered By: Nazario Torres on 06-15-2023 Albumin BCG dye [Mass/Vol] 3.9 g/dL 3.5-5.7 [facility] Alkaline phosphatase [Enzyma tic activity/volume] in Serum or PlasmaOrdered By: Nazario Torres on 06-15-2023 ALP [Catalytic activity/Vol] 115 U/L High 34-104 [facility] Comment on above: Performed By: #### P T, CMP, PTT, HS TROP, CBC, CK, AMM ####[address] Ammonia [Moles/volume] in Pl asmaOrdered By: Nazario Torres on 06-15-2023 Ammonia (P) [Moles/Vol] 21 umol/L Normal 11-35 [facility] Comment on above: Result Comment: PERF ORMED BY: [facility] [address] [place] [address] PATHOLOGIST MANAGER SOLUTION LAURI PATEL M.D. Performed By: #### P T, CMP, PTT, HS TROP, CBC, CK, AMM ####[address] Amphetamine Screen Ql (U)Ord ered By: Nazario Torres on 06-15-2023 Amphetamines Ql (U) Positive Negative [facility] Aspartate aminotransferase [ Enzymatic activity/volume] in Serum or PlasmaOrdered By: Nazario Torres on 06-15-2023 AST [Catalytic activity/Vol] 32 U/L Normal 13-39 [facility] Comment on above: Performed By: #### P T, CMP, PTT, HS TROP, CBC, CK, AMM ####[address] Automated basophil %Ordered By: Nazario Torres on 06-15-2023 Basophils/100 WBC (Bld) 0.2 % Normal . [facility] Comment on above: Performed By: #### P T, CMP, PTT, HS TROP, CBC, CK, AMM ####[address] Automated basophil countOrde red By: Nazario Torres on 06-15-2023 Basophils (Bld) [#/Vol] 0.0 10*3/uL Normal 0.0-0.2 [facility] Comment on above: Result Comment: PERF ORMED BY: [facility] [address] [place] [address] PATHOLOGIST MANAGER SOLUTION LAURI PATEL M.D. Performed By: #### P T, CMP, PTT, HS TROP, CBC, CK, AMM ####[address] Automated blood monocyte cou ntOrdered By: Nazario Torres on 06-15-2023 Monocytes (Bld) [#/Vol] 0.3 10*3/uL Normal 0.0-0.8 [facility] Comment on above: Performed By: #### P T, CMP, PTT, HS TROP, CBC, CK, AMM ####[address] Automated eosinophil %Ordere d By: Nazario Torres on 06-15-2023 Eosinophils/100 WBC (Bld) 4.2 % Normal . [facility] Comment on above: Performed By: #### P T, CMP, PTT, HS TROP, CBC, CK, AMM ####[address] Automated eosinophil countOr dered By: Nazario Torres on 06-15-2023 Eosinophils (Bld) [#/Vol] 0.2 10*3/uL Normal 0.0-0.45 [facility] Comment on above: Performed By: #### P T, CMP, PTT, HS TROP, CBC, CK, AMM ####[address] Automated erythrocytes count in urine sediment (number/area)Ordered By: Nazario Torres on 06-15-2023 RBC Auto (Urine sed) [#/Area] 1-2 [HPF] 0-4 [facility] Automated leukocytes count i n urine sediment (number/area)Ordered By: Nazario Torres on 06-15-2023 WBC Auto (Urine sed) [#/Area] 5-9 [HPF] 0-4 [facility] Automated monocyte %Ordered By: Nazario Torres on 06-15-2023 Monocytes/100 WBC (Bld) 6.0 % Normal . [facility] Comment on above: Performed By: #### P T, CMP, PTT, HS TROP, CBC, CK, AMM ####[place] [address] [place] Automated neutrophil %Ordere d By: Nazario Torres on 06-15-2023 Neutrophils/100 WBC (Bld) 32.6 % Normal . [facility] Comment on above: Performed By: #### P T, CMP, PTT, HS TROP, CBC, CK, AMM ####[facility] [id number] Automated urine color determ inationOrdered By: Nazario Torres on 06-15-2023 Color (U) Yellow Normal Yellow [facility] Comment on above: Order Comment: Name Collection Type:: Straight Catheter Performed By: #### C UU, ADDONUAPLUS, UHCG #### [facility] [address] Barbiturates [Presence] in U rine by Screen methodOrdered By: Nazario Torres on 06-15-2023 Barbiturates Screen Ql (U) Negative Negative [facility] Benzodiazepines Screen Ql (U )Ordered By: Nazario Torres on 06-15-2023 Benzodiazepines Ql (U) Negative Negative [facility] Benzoylecgonine [Presence] i n Urine by Screen methodOrdered By: Nazario Torres on 06-15-2023 Benzoylecgonine Screen Ql (U) Positive Negative [facility] Bilirubin Test strip Ql (U)O rdered By: Nazario Torres on 06-15-2023 Bilirubin Ql (U) Negative Negative [facility] Bilirubin.total [Mass/volume ] in Serum or PlasmaOrdered By: Nazario Torres on 06-15-2023 Bilirubin [Mass/Vol] 0.4 mg/dL Normal 0.3-1.0 [facility] Comment on above: Performed By: #### P T, CMP, PTT, HS TROP, CBC, CK, AMM ####[facility] [id number] head/brain wo conon 06-14 CT head/brain wo con [facility] [place] [address] [place] [address] CT Scan Report Signed Patient: Tyrone Lim MR#: [id number] : 1985 Acct:[id number] Age/Sex: 38 / F ADM Date: 06/15/23 [...] Jason Stone M.D.06/15/2023 12:37 PM Dictation Location: [place] [address] Transcribed By: [facility] 06/15/23 1237 Dictated By: Jason Stone II, MD 06/15/23 1234 Signed By: 06/15/23 1237 Normal [facility] Calcium [Mass/volume] in Ser um or PlasmaOrdered By: Nazario Torres on 06-15-2023 Calcium [Mass/Vol] 8.3 mg/dL Low 8.6-10.3 [facility] Comment on above: Performed By: #### P T, CMP, PTT, HS TROP, CBC, CK, AMM ####[facility] [id number] [place] [id number] [facility] Cannabinoids [Presence] in U rine by Screen methodOrdered By: Nazario Torres on 06-15-2023 Cannabinoids Screen Ql (U) Positive Negative [facility] Comment on above: These are unconfirme d results and should not be used for legal purposes. Drug Cut-Off Concentration: AMPH 1000 ng/mL CHUYITA 200 ng/mL DINO 200 ng/mL COCM 300 ng/mL OP 300 ng/mL PCP 25 ng/mL THC 20 ng/mL Capillary blood glucose bharath urement by glucometer (mass/volume)Ordered By: Nazario Torres on 06-15-2023 Glucose [Mass/Vol] 105 mg/dL Normal [facility] Comment on above: Random Glucose Refer ence Range is dependent on time and content of last meal. Glucose of more than 200 mg/dL in a nonstressed, ambulatory subject supports the diagnosis of Diabetes Mellitus. Result Comment: Kayenta om Glucose Reference Range is dependent on time and content of last meal. Glucose of more than 200 mg/dL in a nonstressed, ambulatory subject supports the diagnosis of Diabetes Mellitus. PERFORMED BY: [facility] [address] [place] [address] PATHOLOGIST MANAGER SOLUTION LAURI PATEL M.D. Performed By: #### G CODY #### Point of Care testing , Carbon dioxide, total [Moles /volume] in Serum or PlasmaOrdered By: Nazario Torres on 06-15-2023 CO2 [Moles/Vol] 23.8 mmol/L Normal 21.0-31.0 [facility] Comment on above: Performed By: #### P T, CMP, PTT, HS TROP, CBC, CK, AMM ####[facility] [id number] [place] [id number] [facility] Casts typing in urine sedime nt by light microscopyOrdered By: Nazario Torres on 06-15-2023 Casts LM Nom (Urine sed) None seen [LPF] None Seen [facility] Chloride [Moles/volume] in S bennett or PlasmaOrdered By: Nazario Torres on 06-15-2023 Chloride [Moles/Vol] 109 mmol/L High 98-107 [facility] Comment on above: Performed By: #### P T, CMP, PTT, HS TROP, CBC, CK, AMM ####[facility] [id number] [place] [id number] [facility] Complete Blood Count Auto Di ffon 06-15-2023 Mean Corpuscular HGB Conc 33.6 g/dL Normal 32.0-35.0 [facility] Comment on above: Performed By: #### P T, CMP, PTT, HS TROP, CBC, CK, AMM ####[address] Monocytes/100 WBC (Bld) 17.73 % Normal 0.00-20.00 [facility] Comment on above: Performed By: #### P T, CMP, PTT, HS TROP, CBC, CK, AMM ####[address] NRBC% 0.1 /100{WBC} Normal 0-0.5 [facility] Comment on above: Performed By: #### P T, CMP, PTT, HS TROP, CBC, CK, AMM ####[address] Comprehensive Metabolic Pane jamel 06-15-2023 Albumin [Mass/Vol] 3.9 g/dL Normal 3.5-5.7 [facility] Comment on above: Performed By: #### P T, CMP, PTT, HS TROP, CBC, CK, AMM ####[address] Creatinine Clr Calc Pharmacy 118.81 Normal [facility] Comment on above: Result Comment: PERF ORMED BY: [facility] [address] [place] [address] PATHOLOGIST MANAGER SOLUTION LAURI PATEL M.D. Performed By: #### P T, CMP, PTT, HS TROP, CBC, CK, AMM ####[address] GFR/1.73 sq M.predicted MDRD (S/P/Bld) [Vol rate/Area] mL/min/{1.73_m2} Normal [facility] Comment on above: Performed By: #### P T, CMP, PTT, HS TROP, CBC, CK, AMM ####[address] [place] [address] [place] Creatine kinase [Enzymatic a ctivity/volume] in Serum or PlasmaOrdered By: Nazario Torres on 06-15-2023 CK [Catalytic activity/Vol] 68 U/L Normal 30-223 [facility] Comment on above: Performed By: #### P T, CMP, PTT, HS TROP, CBC, CK, AMM ####[facility] [place] [address] Creatinine [Mass/volume] in Serum or PlasmaOrdered By: Nazario Torres on 06-15-2023 Creatinine [Mass/Vol] 0.86 mg/dL Normal 0.60-1.20 [facility] Comment on above: Performed By: #### P T, CMP, PTT, HS TROP, CBC, CK, AMM ####[place] [address] [place] Dipstick and Microscopicon 0 06-15-2023 Appearance (U) Clear Normal Clear [facility] Comment on above: Order Comment: Name Collection Type:: Straight Catheter Performed By: #### C UU, ADDONUAPLUS, UHCG #### [facility] [address] [place] [address] [place] Bacteria,Urine None Seen Normal None Seen [facility] Comment on above: Order Comment: Name Collection Type:: Straight Catheter Performed By: #### C UU, ADDONUAPLUS, UHCG #### [facility] [address] [place] [address] [place] Bilirubin,Urine Negative Normal Negative [facility] Comment on above: Order Comment: Name Collection Type:: Straight Catheter Performed By: #### C UU, ADDONUAPLUS, UHCG #### [facility] [address] [place] [address] [place] Glucose Ql (U) Normal Normal Normal [facility] Comment on above: Order Comment: Name Collection Type:: Straight Catheter Performed By: #### C UU, ADDONUAPLUS, UHCG #### [facility] [address] [place] [address] [place] Hyaline Casts,Urine 0-8 Normal 0-8 [facility] Comment on above: Order Comment: Name Collection Type:: Straight Catheter Performed By: #### C UU, ADDONUAPLUS, UHCG #### [facility] [address] [place] [address] [place] Ketones Ql (U) Negative Normal Negative [facility] Comment on above: Order Comment: Name Collection Type:: Straight Catheter Performed By: #### C UU, ADDONUAPLUS, UHCG #### [address] Leukocyte esterase Test strip Ql (U) 2+ High Negative [facility] Comment on above: Order Comment: Name Collection Type:: Straight Catheter Performed By: #### C UU, ADDONUAPLUS, UHCG #### [place] [address] [place] Nitrite,Urine Negative Normal Negative [facility] Comment on above: Order Comment: Name Collection Type:: Straight Catheter Performed By: #### C UU, ADDONUAPLUS, UHCG #### [place] [id number] [place] Occult Blood,Urine Negative Normal Negative [facility] Comment on above: Order Comment: Name Collection Type:: Straight Catheter Performed By: #### C UU, ADDONUAPLUS, UHCG #### [place] [address] [place] Other Casts,Urine None Seen Normal None Seen [facility] Comment on above: Order Comment: Name Collection Type:: Straight Catheter Performed By: #### C UU, ADDONUAPLUS, UHCG #### [place] [address] [place] Protein,Urine Negative Normal Negative [facility] Comment on above: Order Comment: Name Collection Type:: Straight Catheter Performed By: #### C UU, ADDONUAPLUS, UHCG #### [place] [address] [place] RBC,Urine 1-2 Normal 0-4 [facility] Comment on above: Order Comment: Name Collection Type:: Straight Catheter Performed By: #### C UU, ADDONUAPLUS, UHCG #### [facility] [address] [place] [address] [place] Renal Epithelial Cells,Urine 1-2 High 0-1 [facility] Comment on above: Order Comment: Name Collection Type:: Straight Catheter Performed By: #### C UU, ADDONUAPLUS, UHCG #### [place] [address] [place] Specificy [place],Urine 1.016 Normal 1.001-1.030 [facility] Comment on above: Order Comment: Name Collection Type:: Straight Catheter Performed By: #### C UU, ADDONUAPLUS, UHCG #### [place] [address] [place] Squamous Epithelial Cell,Urine 5-9 High 0-2 [facility] Comment on above: Order Comment: Name Collection Type:: Straight Catheter Performed By: #### C UU, ADDONUAPLUS, UHCG #### [facility] [address] [place] [address] [place] Urobilinogen,Urine Normal Normal Normal [facility] Comment on above: Order Comment: Name Collection Type:: Straight Catheter Performed By: #### C UU, ADDONUAPLUS, UHCG #### [facility] [address] [place] [address] [place] WBC,Urine 5-9 High 0-4 [facility] Comment on above: Order Comment: Name Collection Type:: Straight Catheter Performed By: #### C UU, ADDONUAPLUS, UHCG #### [facility] [address] [place] [address] [place] Drug Screen,Urineon 06-15-19 24 Amphetamine Screen,Urine Positive High Negative [facility] Comment on above: Performed By: #### U RDS ####[address] Barbiturate Screen,Urine Negative Normal Negative [facility] Comment on above: Performed By: #### U RDS ####[place] [address] Benzodiazepines Screen,Urine Negative Normal Negative [facility] Comment on above: Performed By: #### U RDS ####[address] Cannabinoid Screen,Urine Positive High Negative [facility] Comment on above: Result Comment: Thes e are unconfirmed results and should not be used for legal purposes. Drug Cut-Off Concentration: AMPH 1000 ng/mL CHUYITA 200 ng/mL DINO 200 ng/mL COCM 300 ng/mL OP 300 ng/mL PCP 25 ng/mL THC 20 ng/mL PERFORMED BY: [place] [address] PATHOLOGIST MANAGER SOLUTION LAURI PATEL M.D. Performed By: #### U RDS ####[address] Cocaine Screen,Urine Positive High Negative [facility] Comment on above: Performed By: #### U RDS ####[address] Opiate Screen,Urine Negative Normal Negative [facility] Comment on above: Performed By: #### U RDS ####[address] Phencyclidine Screen,Urine Negative Normal Negative [facility] Comment on above: Performed By: #### U RDS ####[address] ECG 12 lead ECGon 06-15-2023 ECG 12 lead ECG [facility] [place] [address] [place] [address] Electrocardiograph Report Signed Patient: Tyrone Lim MR#: [id number] : 1985 Acct:[id number] Age/Sex: 38 / F ADM Date: 06/15/23 Loc: ER Room: Type: [facility] ER Attending Dr: Ordering Provider: Nazario Torres [...] axis deviation Confirmed by Nazario TORRES DO ([id number]) on 06/15/2023 6:38:04 PM Referred By: Electronically Signed By:Nazario TORRES DO Transcribed By: MUS Signed By Nazario Torres DO 0 06/15/231837 Normal [facility] ECG 12 lead ECG [facility] [place] [address] [place] [address] Electrocardiograph Report Signed Patient: Tyrone Lim MR#: [id number] : 1985 Acct:[id number] Age/Sex: 38 / F ADM Date: 06/15/23 Loc: ER Room: Type: [facility] ER Attending Dr: Ordering Provider: Nazario Torres [...] Sinus tachycardia Confirmed by Nazario TORRES DO ([id number]) on 06/15/2023 6:34:30 PM Referred By: Electronically Signed By:Nazario TORRES DO Transcribed By: MUS Signed By Nazario Torres DO 0 06/15/231833 Normal [facility] Erythrocyte distribution wid th [Ratio] by Automated countOrdered By: Nazario Torres on 06-15-2023 Erythrocyte distribution width (RBC) [Ratio] 13.9 % Normal 11.9-15.3 [facility] Comment on above: Performed By: #### P T, CMP, PTT, HS TROP, CBC, CK, AMM ####[facility] [id number] Erythrocytes [#/volume] in B lood by Automated countOrdered By: Nazario Torres on 06-15-2023 RBC (Bld) [#/Vol] 3.86 10*6/uL Normal 3.60-5.00 [facility] Comment on above: Performed By: #### P T, CMP, PTT, HS TROP, CBC, CK, AMM ####[facility] [id number] Glucose [Mass/volume] in Ser um or PlasmaOrdered By: Nazario Torres on 06-15-2023 Glucose [Mass/Vol] 107 mg/dL High 70-100 [facility] Comment on above: ADA recommended refe rence rangeRandom Glucose Reference Range is dependent on time and content of last meal. Glucose of more than 200 mg/dL in a nonstressed, ambulatory subject supports the diagnosis of Diabetes Mellitus. Result Comment: Kayenta om Glucose Reference Range is dependent on time and content of last meal. Glucose of more than 200 mg/dL in a nonstressed, ambulatory subject supports the diagnosis of Diabetes Mellitus. ADA recommended reference range Performed By: #### P T, CMP, PTT, HS TROP, CBC, CK, AMM ####[facility] HCG ( test) [place].rapi d Ql (U)Ordered By: Nazario Torres on 06-15-2023 HCG ( test) Ql (U) Negative [facility] HCG,Urineon 06-15-2023 Beta HCG ( test) Ql (U) Negative Normal [facility] Comment on above: Order Comment: Name Collection Type:: Straight Catheter Result Comment: PERF ORMED BY: [facility] [address] [place] [address] PATHOLOGIST MANAGER SOLUTION LAURI PATEL M.D. Performed By: #### C UU, ADDONUAPLUS, CG #### [facility] [address] Hematocrit [Volume Fraction] of Blood by Automated countOrdered By: Nazario Torres on 06-15-2023 Hematocrit (Bld) [Volume fraction] 34.5 % Normal 34.0-46.4 [facility] Comment on above: Performed By: #### P T, CMP, PTT, HS TROP, CBC, CK, AMM ####[place] [id number] [place] [id number] [facility] Hemoglobin [Mass/volume] in BloodOrdered By: Nazario Torres on 06-15-2023 Hemoglobin (Bld) [Mass/Vol] 11.6 g/dL Low 11.8-15.4 [facility] Comment on above: Performed By: #### P T, CMP, PTT, HS TROP, CBC, CK, AMM ####[place] [id number] [place] [id number] [facility] INR in Platelet poor plasma by Coagulation assayOrdered By: Nazario Torres on 06-15-2023 INR Coag (PPP) [Relative time] 1.1 {INR} Normal [facility] Comment on above: INR Therapeutic Rang e [...] CMP, PTT, HS TROP, CBC, CK, AMM ####[facility] [place] [id number] [facility] Ketones Auto test strip (U) [Mass/Vol]Ordered By: Nazario Torres on 06-15-2023 Ketones (U) [Mass/Vol] Negative Negative [facility] Laboratory - UrinalysisOrder ed By: Nazario Torres on 06-15-2023 Hyaline casts LM Ql (Urine sed) 0-8 [LPF] 0-8 [facility] Leukocytes [#/volume] correc london for nucleated erythrocytes in Blood by Automated counOrdered By: Nazario Torres on 06-15-2023 WBC corrected for nucl RBC Auto (Bld) [#/Vol] 5.3 10*3/uL 3.8-11.6 [facility] Leukocytes [#/volume] in Blo od by Automated countOrdered By: Nazario Torres on 06-15-2023 WBC (Bld) [#/Vol] 5.3 10*3/uL Normal 3.8-11.6 [facility] Comment on above: Performed By: #### P T, CMP, PTT, HS TROP, CBC, CK, AMM ####[place] [id number] [facility] Lymphocytes [#/volume] in Bl ood by Automated countOrdered By: Nazario Torres on 06-15-2023 Lymphocytes (Bld) [#/Vol] 3.0 10*3/uL Normal 1.00-4.8 [facility] Comment on above: Performed By: #### P T, CMP, PTT, HS TROP, CBC, CK, AMM ####[place] [id number] [facility] Lymphocytes/100 leukocytes i n Blood by Automated countOrdered By: Nazario Torres on 06-15-2023 Lymphocytes/100 WBC (Bld) 57.0 % Normal . [facility] Comment on above: Performed By: #### P T, CMP, PTT, HS TROP, CBC, CK, AMM ####[place] [id number] [facility] MCH [Entitic mass] by Automa london countOrdered By: Nazario Torres on 06-15-2023 MCH (RBC) [Entitic mass] 30.1 pg Normal 24.7-34.3 [facility] [facility] Comment on above: Performed By: #### P T, CMP, PTT, HS TROP, CBC, CK, AMM ####[place] [id number] [facility] MCHC Auto (RBC) [Mass/Vol]Or dered By: Nazario Torres on 06-15-2023 MCHC (RBC) [Mass/Vol] 33.6 g/dL 32.0-35.0 [facility] MCV [Entitic volume] by Auto mated countOrdered By: Nazario Torres on 06-15-2023 MCV (RBC) [Entitic vol] 89.4 fL Normal 80-100 [facility] Comment on above: Performed By: #### P T, CMP, PTT, HS TROP, CBC, CK, AMM ####[facility] [id number] [place] [id number] [facility] Monocyte distribution width [Entitic volume] in Blood by AutomatedOrdered By: Nazario Torres on 06-15-2023 Monocyte distribution width Auto (Bld) [Entitic vol] 17.73 % 0.00-20.00 [facility] Neutrophils [#/volume] in Bl ood by Automated countOrdered By: Nazario Torres on 06-15-2023 Neutrophils (Bld) [#/Vol] 1.7 10*3/uL Low 1.8-7.7 [facility] Comment on above: Performed By: #### P T, CMP, PTT, HS TROP, CBC, CK, AMM ####[facility] [id number] [place] [address] [facility] Nitrite Test strip Ql (U)Ord ered By: Nazario Torres on 06-15-2023 Nitrite Ql (U) Negative Negative [facility] No Panel InformationOrdered By: Nazario Torres on 06-15-2023 Blood Gas Critical Value See comment [facility] Comment on above: Critical Value quintero d on: 06/15/2023 at 13:02 Blood Gas Sample Site Venous [facility] FiO2 21 % [facility] Venous Blood Base Excess -7.8 mmol/L -3.0-3.0 [facility] Venous Blood Oxygen Content 5.8 mmol/L 6.6-9.7 [facility] Venous Blood Oxygen Saturation 84.8 % 73.0-76.0 [facility] Venous Blood Partial Pressure CO2 36.9 mm[Hg] 38.0-50.0 [facility] Venous Blood Partial Pressure O2 53.5 mm[Hg] 35.0-45.0 [facility] Venous Blood pH 7.30 7.32-7.43 [facility] Estimated GFR (CKD-EPI) > 60.0 mL/Min [facility]acy Creatinine Clearance (Chem 118.81 [facility] Nucleated erythrocytes [Pres ence] in Blood by Automated countOrdered By: Nazario Torres on 06-15-2023 Nucleated RBC Auto Ql (Bld) 0.1 /100{WBC} 0-0.5 [facility] Opiates [Presence] in Urine by Screen methodOrdered By: Nazario Torres on 06-15-2023 Opiates Screen Ql (U) Negative Negative [facility] Partial Thromboplastin Timeo n 06-15-2023 aPTT Coag (Bld) [Time] 30.4 s Normal 25.1-36.5 [facility] Comment on above: Result Comment: A he matocrit value greater than 55% may lead to inaccurate results in coagulation testing. Patients having hematocrit values >55% require a special collection tube for coagulation studies. Please contact the laboratory at [phone] for redraw instructions. PERFORMED BY: [facility] [address] [place] [address] PATHOLOGIST MANAGER SOLUTION LAURI PATEL M.D. Performed By: #### P T, CMP, PTT, HS TROP, CBC, CK, AMM ####[facility] [id number] [place] [id number] [facility] Phencyclidine Screen Ql (U)O rdered By: Nazario Torres on 06-15-2023 Phencyclidine Ql (U) Negative Negative [facility] Platelet mean volume [Entiti c volume] in Blood by Automated countOrdered By: Nazario Torres on 06-15-2023 Platelet mean volume (Bld) [Entitic vol] 8.7 fL Normal 6.3-10.7 [facility] Comment on above: Performed By: #### P T, CMP, PTT, HS TROP, CBC, CK, AMM ####[place] [address] [place] [id number] [facility] Platelets [#/volume] in Bloo d by Automated countOrdered By: Nazario Torres on 06-15-2023 Platelets (Bld) [#/Vol] 196 10*3/uL Normal 150-450 [facility] Comment on above: Performed By: #### P T, CMP, PTT, HS TROP, CBC, CK, AMM ####[place] [address] [place] [address] [facility] Potassium [Moles/volume] in Serum or PlasmaOrdered By: Nazario Torres on 06-15-2023 Potassium [Moles/Vol] 3.7 mmol/L Normal 3.5-5.1 [facility] Comment on above: Performed By: #### P T, CMP, PTT, HS TROP, CBC, CK, AMM ####[place] [address] [place] [address] [facility] Protein Auto test strip (U) [Mass/Vol]Ordered By: Nazario Torres on 06-15-2023 Protein (U) [Mass/Vol] Negative Negative [facility] Protein [Mass/volume] in Ser um or PlasmaOrdered By: Nazario Torres on 06-15-2023 Protein [Mass/Vol] 6.6 g/dL Normal 6.4-8.9 [facility] Comment on above: Performed By: #### P T, CMP, PTT, HS TROP, CBC, CK, AMM ####[address] [address] [facility] Prothrombin time (PT)Ordered By: Nazario Torres on 06-15-2023 PT Coag (PPP) [Time] 13.2 s High 9.0-12.9 [facility] Comment on above: A hematocrit value g reater than 55% may lead to inaccurate results in coagulation testing. Patients having hematocrit values >55% require a special collection tube for coagulation studies. Please contact the laboratory at [phone] for redraw instructions. Result Comment: A he matocrit value greater than 55% may lead to inaccurate results in coagulation testing. Patients having hematocrit values >55% require a special collection tube for coagulation studies. Please contact the laboratory at [phone] for redraw instructions. Performed By: #### P T, CMP, PTT, HS TROP, CBC, CK, AMM ####[address] [address] [facility] Serum globulin measurement b y calculation (mass/volume)Ordered By: Nazario Torres on 06-15-2023 Globulin (S) [Mass/Vol] 2.7 g/dL Normal [facility] Comment on above: Performed By: #### P T, CMP, PTT, HS TROP, CBC, CK, AMM ####[place] [address] Serum or plasma albumin/glob ulin mass ratioOrdered By: Nazario Torres on 06-15-2023 Albumin/Globulin [Mass ratio] 1.4 {ratio} [facility] Comment on above: Performed By: #### P T, CMP, PTT, HS TROP, CBC, CK, AMM ####[place] [address] Serum or plasma anion gap de terminationOrdered By: Nazario Torres on 06-15-2023 Anion gap [Moles/Vol] 10.9 mmol/L Normal 6.0-15.0 [facility] Comment on above: Performed By: #### P T, CMP, PTT, HS TROP, CBC, CK, AMM ####[address] Sodium [Moles/volume] in Ser um or PlasmaOrdered By: Nazario Torres on 06-15-2023 Sodium [Moles/Vol] 140 mmol/L Normal 136-145 [facility] Comment on above: Performed By: #### P T, CMP, PTT, HS TROP, CBC, CK, AMM ####[address] Specific gravity Auto test s trip (U) [Rel density]Ordered By: Nazario Torres on 06-15-2023 Specific gravity (U) [Rel density] 1.016 1.001-1.030 [facility] Squamous epithelial cells de tection in urine sediment by light microscopyOrdered By: Nazario Torres on 06-15-2023 Epithelial cells.squamous LM Ql (Urine sed) 5-9 [HPF] 0-2 [facility] Troponin I High Sensitivityo n 06-15-2023 Troponin I High Sensitivity < 2.3 Normal 0.0-15.0 [facility] Comment on above: Result Comment: PERF ORMED BY: [place] [address] PATHOLOGIST MANAGER SOLUTION LAURI PATEL M.D. Performed By: #### P T, CMP, PTT, HS TROP, CBC, CK, AMM ####[address] Troponin I.cardiac [Mass/vol ume] in Serum or Plasma by Detection limit <= 0.01 ng/Ordered By: Nazario Torres on 06-15-2023 Troponin I.cardiac DL <= 0.01 ng/mL [Mass/Vol] < 2.3 pg/mL 0.0-15.0 [facility] Urea nitrogen [Mass/volume] in Serum or PlasmaOrdered By: Nazario Torres on 06-15-2023 Urea nitrogen [Mass/Vol] 11 mg/dL Normal 7-25 [facility] Comment on above: Performed By: #### P T, CMP, PTT, HS TROP, CBC, CK, AMM ####[place] [id number] [facility] Urine Cultureon 06-15-2023 Bacteria identified Cx Nom (U) No Growth 2 Days PERFORMED BY: [place] [address] PATHOLOGIST MANAGER SOLUTION LAURI PATEL M.D. Normal [facility] Comment on above: Performed By: #### C UU, YEHUDA, CG #### [place] [id number] [facility] Urine bacteria detection by automated methodOrdered By: Nazario Torres on 06-15-2023 Bacteria Auto Ql (U) None seen None Seen [facility] Urine clarity by refractomet ry automatedOrdered By: Nazario Torres on 06-15-2023 Clarity Refractometry automated (U) Clear Clear [facility] Urine glucose measurement by automated test strip (mass/volume)Ordered By: Nazario Torres on 06-15-2023 Glucose Auto test strip (U) [Mass/Vol] Normal mg/dL Normal [facility] Urine hemoglobin detection b y automated test stripOrdered By: Nazario Torres on 06-15-2023 Hemoglobin Auto test strip Ql (U) Negative Negative [facility] Urine leukocyte esterase det ection by automated test stripOrdered By: Nazario Torres on 06-15-2023 Leukocyte esterase Auto test strip Ql (U) 2+ Negative [facility] Urine pH measurement by auto mated test stripOrdered By: Nazario Torres on 06-15-2023 pH (U) 7.0 [pH] Normal 5.0-9.0 [facility] Comment on above: Order Comment: Name Collection Type:: Straight Catheter Performed By: #### C UU, ADDONUAPLUS, UHCG #### [address] Urine sediment renal epithel ial cell count by microscopy (number/high power field)Ordered By: Nazario Torres on 06-15-2023 Epithelial cells.renal LM.HPF (Urine sed) [#/Area] 1-2 [HPF] 0-1 [facility] Urobilinogen Auto test strip (U) [Mass/Vol]Ordered By: Nazario Torres on 06-15-2023 Urobilinogen (U) [Mass/Vol] Normal mg/dL Normal [facility] Venous Blood GasOrdered By: Nazario Torres on 06-15-2023 CO2 [Moles/Vol] 19.0 mmol/L Low 24.0-29.0 [facility] Comment on above: Performed By: #### V BG #### Point of Care testing , HCO3 (Bld) [Moles/Vol] 17.8 mmol/L Low 23.0-29.0 [facility] Comment on above: Performed By: #### V BG #### Point of Care testing , Venous Blood Gason Respiratory Critical Normal [facility] Comment on above: Result Comment: Crit ical Value called on: 06/15/2023 at 13:02 PERFORMED BY: [place] [address] PATHOLOGIST MANAGER SOLUTION LAURI PATEL M.D. Performed By: #### V BG #### Point of Care testing , VBG Base Excess -7.8 mmol/L Low -3.0-3.0 [facility] Comment on above: Performed By: #### V BG #### Point of Care testing , VBG Draw Site Venous Normal [facility] Comment on above: Performed By: #### V BG #### Point of Care testing , VBG Frac Inspired O2 21 % Normal [facility] Comment on above: Performed By: #### V BG #### Point of Care testing , VBG O2 Content 5.8 mmol/L Low 6.6-9.7 [facility] Comment on above: Performed By: #### V BG #### Point of Care testing , VBG Oxygen Saturation 84.8 % High 73.0-76.0 [facility] Comment on above: Performed By: #### V BG #### Point of Care testing , VBG PCO2 36.9 mm[Hg] Low 38.0-50.0 [facility] Comment on above: Performed By: #### V BG #### Point of Care testing , VBG PH Venous PH 7.30 Low 7.32-7.43 [facility] Comment on above: Performed By: #### V BG #### Point of Care testing , VBG PO2 53.5 mm[Hg] High 35.0-45.0 [facility] Comment on above: Performed By: #### V BG #### Point of Care testing , XR chest 2V*on 06-15-2023 XR chest 2V* [place] [address] XRay Report Signed Patient: Tyrone Lim MR#: [id number] : 1985 Acct:[id number] Age/Sex: 38 / F ADM Date: 06/15/23 [...] 1233 Signed By: 06/15/23 1234 Normal [facility] ACETAMINOPHENon 06-01-2023 Acetaminophen [Mass/Vol] 6.5 ug/mL Low 10.0-30.0 [facility] Comment on above: Result Comment: Refe rence ranges are for therapeutic limits. Performed By: #### C TRAVIS, 38690-4, 90079-5, 5643-2, CMP, 96592-5, 3298-7, 2157-6, 4024-6, 33232-4, 3040-3 #### [facility] ([id number]) [address] [place] [address] CBC AND AUTO DIFFon 06-01-19 ABSOLUTE BASOPHIL 0.0 X10E9/L Normal 0.0-0.2 [facility] Comment on above: Performed By: #### C TRAVIS, 24885-5, 31257-8, 5643-2, CMP, 43997- 9, 3298-7, 2157-6, 4024-6, 07740-5, 3040-3 #### [facility] ([id number]) [address] [place] [address] ABSOLUTE NEUTROPHIL 13.2 X10E9/L High 1.5-6.6 [facility] Comment on above: Performed By: #### C TRAVIS, 47787-1, 98246-0, 5643-2, CMP, 07886- 9, 3298-7, 2157-6, 4024-6, 20836-3, 3040-3 #### [facility] ([id number]) [address] [place] [address] Basophils/100 WBC (Bld) 0.1 % Normal [facility] Comment on above: Performed By: #### C BCA, 16194-8, 69205-6, 5643-2, CMP, 39778- 9, 3298-7, 2157-6, 4024-6, 99236-8, 3040-3 #### [facility] ([id number]) [address] [place] [address] Eosinophils (Bld) [#/Vol] 0.0 10*3/uL Normal 0.0-0.4 [facility] Comment on above: Performed By: #### C BCA, 20600-4, 30704-3, 5643-2, CMP, 30362- 9, 3298-7, 2157-6, 4024-6, 22709-4, 3040-3 #### [facility] ([id number]) [address] [place] [address] Eosinophils/100 WBC (Bld) 0.3 % Normal [facility] Comment on above: Performed By: #### C BCA, 38159-5, 17900-8, 5643-2, CMP, 96057- 9, 3298-7, 2157-6, 4024-6, 13501-3, 3040-3 #### [facility] ([id number]) [address] [place] [address] Erythrocyte distribution width (RBC) [Ratio] 14.4 % Normal 11.5-15.0 [facility] Comment on above: Performed By: #### C BCA, 33372-6, 14316-1, 5643-2, CMP, 74521- 9, 3298-7, 2157-6, 4024-6, 20664-4, 3040-3 #### [facility] ([id number]) [address] [place] [address] Hematocrit (Bld) [Volume fraction] 40.1 % Normal 35-47 [facility] Comment on above: Performed By: #### C BCA, 00135-1, 02871-5, 5643-2, CMP, 53841- 9, 3298-7, 2157-6, 4024-6, 60000-4, 3040-3 #### [facility] ([id number]) [address] [place] [address] Hemoglobin (Bld) [Mass/Vol] 13.4 g/dL Normal 11.7-15.5 [facility] Comment on above: Performed By: #### C BCA, 85327-2, 45182-7, 5643-2, CMP, 74957- 9, 3298-7, 2157-6, 4024-6, 89283-4, 3040-3 #### [facility] ([id number]) [address] [place] [address] Lymphocytes (Bld) [#/Vol] 1.0 10*3/uL Normal 1.0-3.5 [facility] Comment on above: Performed By: #### C BCA, 51998-3, 04456-6, 5643-2, CMP, 98505- 9, 3298-7, 2157-6, 4024-6, 10578-0, 3040-3 #### [facility] ([id number]) [address] [place] [address] Lymphocytes/100 WBC (Bld) 6.8 % Normal [facility] Comment on above: Performed By: #### C BCA, 95781-3, 78809-4, 5643-2, CMP, 47974- 9, 3298-7, 2157-6, 4024-6, 14491-4, 3040-3 #### [facility] ([id number]) [address] [place] [address] 52376 MCH (RBC) [Entitic mass] 30.5 pg Normal 27-34 [facility] Comment on above: Performed By: #### C TRAVIS, 35767-3, 01120-5, 5643-2, CMP, 93093- 9, 3298-7, 2157-6, 4024-6, 59919-1, 3040-3 #### [facility] ([id number]) [address] [place] [address] MCHC (RBC) [Mass/Vol] 33.5 g/dL Normal 32-36 [facility] Comment on above: Performed By: #### C TRAVIS, 47061-8, 78093-3, 5643-2, CMP, 44012- 9, 3298-7, 2157-6, 4024-6, 77040-4, 3040-3 #### [facility] ([id number]) [address] [place] [address] MCV (RBC) [Entitic vol] 91 fL Normal 80-100 [facility] Comment on above: Performed By: #### C TRAVIS, 35592-1, 91775-2, 5643-2, CMP, 75391- 9, 3298-7, 2157-6, 4024-6, 08187-6, 3040-3 #### [facility] ([id number]) [address] [place] [address]441 Monocytes (Bld) [#/Vol] 0.5 10*3/uL Normal 0-0.9 [facility] Comment on above: Performed By: #### C TRAVIS, 91240-1, 50526-3, 5643-2, CMP, 53024- 9, 3298-7, 2157-6, 4024-6, 36162-2, 3040-3 #### [facility] ([id number]) [address] [place] [address] 95834 Monocytes/100 WBC (Bld) 3.7 % Normal [facility] Comment on above: Performed By: #### C BCA, 21021-9, 91703-8, 5643-2, CMP, 17759- 9, 3298-7, 2157-6, 4024-6, 85545-2, 3040-3 #### [facility] ([id number]) [address] [place] [address] [place] [address] Neutrophils/100 WBC (Bld) 89.1 % Normal [facility] Comment on above: Performed By: #### C BCA, 60764-7, 49905-9, 5643-2, CMP, 30758- 9, 3298-7, 2157-6, 4024-6, 38130-4, 3040-3 #### [facility] ([id number]) [address] [place] [address] 498[address] Platelet mean volume (Bld) [Entitic vol] 8.3 fL Normal 7-12 [facility] Comment on above: Performed By: #### C BCA, 51611-9, 88613-3, 5643-2, CMP, 88893- 9, 3298-7, 2157-6, 4024-6, 53166-3, 3040-3 #### [facility] ([id number]) [address] [place] [address] 58293 Platelets (Bld) [#/Vol] 249 10*3/uL Normal 150-450 [facility] Comment on above: Performed By: #### C BCA, 95452-4, 40407-6, 5643-2, CMP, 56249- 9, 3298-7, 2157-6, 4024-6, 79589-8, 3040-3 #### [facility] ([id number]) [address] [place] [address] [place] [address] RBC COUNT 4.41 X10E12/L Normal 3.80-5.20 [facility] Comment on above: Performed By: #### C BCA, 15768-1, 47283-1, 5643-2, CMP, 00771- 9, 3298-7, 2157-6, 4024-6, 07394-7, 3040-3 #### [facility] ([id number]) [address] [place] [address] 73293 WBC (Bld) [#/Vol] 14.8 10*3/uL High 4.0-11.0 [facility] Comment on above: Performed By: #### C BCA, 87336-3, 95976-4, 5643-2, CMP, 14457- 9, 3298-7, 2157-6, 4024-6, 85045-3, 3040-3 #### [facility] ([id number]) [address] [place] [address] 03619 CK [Catalytic activity/Vol]o n 06-01-2023 CPK 49 U/L Normal 24-170 [facility] Comment on above: Performed By: #### C BCA, 85453-5, 40025-4, 5643-2, CMP, 05192- 9, 3298-7, 2157-6, 4024-6, 51842-1, 3040-3 #### [facility] ([id number]) [address] [place] [address] [place] [address] COMPREHENSIVE METABOLIC PANE Jamel 06-01-2023 Albumin [Mass/Vol] 4.3 g/dL Normal 3.2-5.3 [facility] Comment on above: Performed By: #### C BCA, 15533-2, 32456-7, 5643-2, CMP, 07792- 9, 3298-7, 2157-6, 4024-6, 40602-1, 3040-3 #### [facility] ([id number]) [address] [place] [address] 18040 ALP [Catalytic activity/Vol] 115 U/L Normal 39-130 [facility] Comment on above: Performed By: #### C BCA, 15528-2, 94224-2, 5643-2, CMP, 60157- 9, 3298-7, 2157-6, 4024-6, 36240-2, 3040-3 #### [facility] ([id number]) [address] [place] [address] 09095 ALT [Catalytic activity/Vol] 37 U/L High 0-31 [facility] Comment on above: Performed By: #### C BCA, 01158-8, 10082-9, 5643-2, CMP, 10993- 9, 3298-7, 2157-6, 4024-6, 89829-6, 3040-3 #### [facility] ([id number]) [address] [place] [address] 95856 Anion gap [Moles/Vol] 10 mmol/L Normal 5-15 [facility] Comment on above: Performed By: #### C BCA, 01104-0, 38615-8, 5643-2, CMP, 07333- 9, 3298-7, 2157-6, 4024-6, 41694-6, 3040-3 #### [facility] ([id number]) [address] [place] [address] 02914 AST [Catalytic activity/Vol] 29 U/L Normal 0-41 [facility] Comment on above: Performed By: #### C BCA, 07196-4, 15052-2, 5643-2, CMP, 15862- 9, 3298-7, 2157-6, 4024-6, 36690-7, 3040-3 #### [facility] ([id number]) [address] [place] [address] 75755 Bilirubin [Mass/Vol] 0.4 mg/dL Normal 0.3-1.2 [facility] Comment on above: Performed By: #### C BCA, 45870-1, 40332-6, 5643-2, CMP, 80002- 9, 3298-7, 2157-6, 4024-6, 14050-4, 3040-3 #### [facility] ([id number]) [address] [place] [address] 11743 Calcium [Mass/Vol] 8.8 mg/dL Normal 8.5-10.5 [facility] Comment on above: Performed By: #### C BCA, 56864-8, 47541-3, 5643-2, CMP, 32048- 9, 3298-7, 2157-6, 4024-6, 35826-1, 3040-3 #### [facility] ([id number]) [address] [place] [address] 28884 Chloride [Moles/Vol] 105 mmol/L Normal 98-109 [facility] Comment on above: Performed By: #### C BCA, 85121-1, 00388-8, 5643-2, CMP, 11392- 9, 3298-7, 2157-6, 4024-6, 33917-1, 3040-3 #### [facility] ([id number]) [address] [place] [address] [place] [address] CO2 [Moles/Vol] 22 mmol/L Normal 22-32 [facility] Comment on above: Performed By: #### C BCA, 33697-8, 77906-9, 5643-2, CMP, 09552- 9, 3298-7, 2157-6, 4024-6, 96497-2, 3040-3 #### [facility] ([id number]) [address] [place] [address] [place] [address] Creatinine [Mass/Vol] 1.23 mg/dL High 0.40-1.00 [facility] Comment on above: Result Comment: METH OD TRACEABLE TO IDMS STANDARD Performed By: #### C BCA, 45748-6, 27003-3, 5643-2, CMP, 25038-0, 3298-7, 2157-6, 4024-6, 81334-0, 3040-3 #### [facility] ([id number]) [address] [place] [address] 04866 GFR/1.73 sq M.predicted among non-blacks MDRD (S/P/Bld) [Vol rate/Area] 58 mL/min/{1.73_m2} Low >59 [facility] Comment on above: Result Comment: Reported eGFR is based on the CKD-EPI 2020 equation that does not use a race coefficient. Performed By: #### C BCA, 36934-1, 60208-2, 5643-2, CMP, 13734-5, 3298-7, 2157-6, 4024-6, 50849-4, 3040-3 #### [facility] ([id number]) [address] [place] [address] 44817 Glucose [Mass/Vol] 274 mg/dL High 65-99 [facility] Comment on above: Performed By: #### C BCA, 47172-1, 55372-4, 5643-2, CMP, 19064- 9, 3298-7, 2157-6, 4024-6, 10585-3, 3040-3 #### [facility] ([id number]) [address] [place] [address] 34689 Potassium [Moles/Vol] 4.8 mmol/L Normal 3.5-5.0 [facility] Comment on above: Performed By: #### C BCA, 81574-1, 14098-6, 5643-2, CMP, 94393- 9, 3298-7, 2157-6, 4024-6, 97309-7, 3040-3 #### [facility] ([id number]) [address] [place] [address]9313 Protein [Mass/Vol] 8.3 g/dL High 6.0-8.0 [facility] Comment on above: Performed By: #### C BCA, 36617-5, 71453-2, 5643-2, CMP, 49941- 9, 3298-7, 2157-6, 4024-6, 47026-6, 3040-3 #### [facility] ([id number]) [address] [place] [address] Sodium [Moles/Vol] 137 mmol/L Normal 134-146 [facility] Comment on above: Performed By: #### C BCA, 41557-9, 51245-9, 5643-2, CMP, 22404- 9, 3298-7, 2157-6, 4024-6, 80443-4, 3040-3 #### [facility] ([id number]) [address] [place] [address] 59346 Urea nitrogen [Mass/Vol] 14 mg/dL Normal 5-23 [facility] Comment on above: Performed By: #### C BCA, 61107-4, 77716-2, 5643-2, [facility], 96224- 9, 3298-7, 2157-6, 4024-6, 45515-7, 3040-3 #### [facility] ([id number]) [address] [place] [address] BRAIN WO CONTon CT BRAIN WO [...] Hathaway MD on 06/01/2023 6:15 AM Normal [facility] ETHANOLon 06-01-2023 Ethanol [Mass/Vol] mg/dL Normal 0.00-0.08 [facility] Comment on above: Result Comment: This report is intended for use in clinical monitoring or management of patients. Performed By: #### C BCA, 28672-3, 72486-1, 5643-2, CMP, 97099-6, 3298-7, 2157-6, 4024-6, 28650-1, 3040-3 #### [facility] ([id number]) [address] [place] [address]40 Glucose Glucometer (BldC) [M ass/Vol]on 06-01-2023 Glucose [Mass/Vol] 258 mg/dL High 65-99 [facility] HCG ( test) IA.rapi d Ql (S)on 06-01-2023 SERUM Negative Normal NEG [facility] Comment on above: Performed By: #### C BCA, 54366-3, 04097-0, 5643-2, CMP, 18309- 9, 3298-7, 2157-6, 4024-6, 33344-6, 3040-3 #### [facility] ([id number]) [address] [place] [address] 36147 LIPASEon 06-01-2023 Lipase [Catalytic activity/Vol] 36 U/L Normal 17-40 [facility] Comment on above: Performed By: #### C BCA, 14983-6, 26637-2, 5643-2, CMP, 56509- 9, 3298-7, 2157-6, 4024-6, 23567-9, 3040-3 #### [facility] ([id number]) [address] [place] [address] 54949 Lactate (P rm) [Moles/Vol]o n 06-01-2023 Lactate [Moles/Vol] 1.4 mmol/L Normal 0.4-2.0 [facility] Comment on above: Performed By: #### C BCA, 84271-5, 11863-0, 5643-2, CMP, 75747- 9, 3298-7, 2157-6, 4024-6, 68239-7, 3040-3 #### [facility] ([id number]) [address] [place] [address] 89641 LACTATE W/REFLEX 3.9 mmol/L High 0.4-2.0 [facility] Comment on above: Performed By: #### C BCA, 03145-6, 83402-8, 5643-2, CMP, 34282- 9, 3298-7, 2157-6, 4024-6, 50408-5, 3040-3 #### [facility] ([id number]) [address] [place] [address] 14124 MAGNESIUMon 06-01-2023 Magnesium [Mass/Vol] 2.0 mg/dL Normal 1.8-2.6 [facility] Comment on above: Performed By: #### C BCA, 20611-7, 77360-5, 5643-2, CMP, 19160- 9, 3298-7, 2157-6, 4024-6, 73665-9, 3040-3 #### [facility] ([id number]) [address] [place] [address]011 Salicylates [Mass/Vol]on SALICYLATE <4.0 Normal 2.0-25.0 [facility] Comment on above: Result Comment: Refe rence ranges are for therapeutic limits. Performed By: #### C BCA, 41142-6, 11538-4, 5643-2, CMP, 68114-8, 3298-7, 2157-6, 4024-6, 47894-0, 3040-3 #### [facility] ([id number]) [address] [place] [address] TROPONIN Ion 06-01-2023 Troponin I.cardiac [Mass/Vol] 0.01 ng/mL Normal 0.00-0.04 [facility] Comment on above: Performed By: #### C BCA, 62162-8, 56011-3, 5643-2, CMP, 13758- 9, 3298-7, 2157-6, 4024-6, 06659-7, 3040-3 #### [facility] ([id number]) [address] [place] [address] XR CHEST 1 VWon 06-01-2023 XR CHEST 1 VW XR CHEST 1 VW Clinical history: Aspiration pneumonia Views: 1 Comparison: 08/21/2021 Findings/Impression: 1. No acute infiltrate. No volume loss nor consolidation. There is no pleural effusion, pneumothorax, nor volume loss. Heart and mediastinal structures are unremarkable. Pulmonary vasculature stable. 2. No significant change Finalized by Srikanth Hathaway MD on 06/01/2023 6:06 AM Normal [facility] PAP IG, APT HPV RFX 16/18,45 on 04-14-2023 HPV APTIMA Negative Negative [facility] Comment on above: This nucleic acid am plification test detects fourteen high- risk HPV types (16,18,31,33,35,39,45,51,52,56,58,59,66,68) without differentiation. Performed at: - [facility] [id number] Tester Vibrator Equipment: Korin Hernandez MD, Phone: [phone] Performed at: =G - [facility] [id number] Tester Vibrator Equipment: Korin Hernandez MD, Phone: [phone] PAP IG (IMAGE GUIDED) Note . [facility] Comment on above: TESTS RESULT FLAG UN ITS REF RANGE LAB Clinician Provided Cytology Information Source.............Cervix;Endocervix No. of containers..01 ThinPrep Vial DIAGNOSIS: 01 NEGATIVE FOR INTRAEPITHELIAL LESION OR MALIGNANCY. Specimen adequacy: 01 Satisfactory for evaluation. Endocervical and/or squamous metaplastic cells (endocervical component) are present. Performed by: 01 Gina Fernandez, Java Programmer Analyst ([facility]) . 01 Note: Note 01 The Pap [...] Low,>-Panic High,A-Abnormal,AA-Critical Abnormal Performed at: 01 [address] [facility] [place] [address] Korin Hernandez MD, BRUSH-SPATULA CERVIX ENDOCERVIX [facility] CBC W Auto Differential pane l (Bld)on 04-11-2023 ABSOLUTE BASOPHIL 0.0 [facility] Comment on above: PERFORMED AT [facility] [address],[place] [address] Basophils/100 WBC (Bld) 0.3 % [facility] [...] mri xrayon 02-23 XR pre/post mri xray [facility] Main [address] [address] MRI Report Signed Patient: Tyrone Lim MR#: [id number] : 1985 Acct:[id number] Age/Sex: 38 / F ADM Date: 02/23/23 Loc: MR Room: Type: [facility] Attending Dr: Johana HUTCHINSON Copies to: EVANGELINA Israel Ordering Provider: EVANGELINA Israel Date of Service: 02/23/23 MR/MR lumbar spine wo/w con: Z98.1 ([id number]) XR/XR pre/post mri xray: Z98.1 MR lumbar [...] Jason Stone M.D.02/23/2023 5:57 PM Dictation Location: [place] [address] Transcribed By: [facility] 02/23/231756 Dictated By: Jason Stone II, MD 02/23/231743 Signed By: 02/23/231756 Normal [facility] Hepatitis C virus RNA [log u nits/volume] (viral load) in Serum or Plasma by BETITO withOrdered By: Ladarius Pitts on 12-13-2022 HCV RNA BETITO+probe [Log units/Vol] Not detected . [facility] No Panel InformationOrdered By: Ladarius Pitts on 12-13-2022 Hepatitis C RNA (PCR) Interpret See comment . [facility] Comment on above: The quantitative ran ge of this assay is 15 IU/mL to 100million IU/mL.Performed at: [address] [id number] Director: Augusto Lowry MD, Phone: [phone] Anaerobic cultureOrdered By: Berenice Haile on 09-22-2022 Bacteria identified Anaer cx Nom (Unsp spec) No Anaerobes Isolated 3 Days [facility] Bacteria identified Aer cx N om (Unsp spec)Ordered By: Berenice Haile on 09-22-2022 Aerobic Culture Methicillin Resis St aph Aureus [facility] Gram stain for investigation of transfusion reactionOrdered By: Berenice Haile on 09-22-2022 Microscopic observation Gram stain Nom (Unsp spec) [facility] PAP ACOG PANEL 2: 30 to 65on 06-02-2022 . . Normal [facility] Comment on above: Result Comment: Perf ormed at: WB Performed By: Issac### V B12LC #### [facility] [address] [address] [address] Drew Castle Age Gdln ACOG Testing 30-65 Normal [facility] Comment on above: Performed By: #### V B12LC #### [facility] [address] [address] [address] Drew Caslte DIAGNOSIS: Comment Abnormal [facility] Comment on above: Result Comment: EPIT HELIAL CELL ABNORMALITY. LOW GRADE SQUAMOUS INTRAEPITHELIAL LESION (LSIL). FUNGAL ORGANISMS MORPHOLOGICALLY CONSISTENT WITH CANDICE SPECIES ARE PRESENT. Performed at: WB Performed By: #### V B12LC #### [facility] [address] [address] [address] Drew Castle Electronically signed by: Comment Normal [facility] Comment on above: Result Comment: Liz Bryant MD, Pathologist Performed at: WB Performed By: #### V B12LC #### [facility] [address] [place] [address] Dr. Drew Castle HPV Aptima Negative Normal Negative [facility] Comment on above: Result Comment: This nucleic acid amplification test detects fourteen high-risk HPV types (16,18,31,33,35,39,45,51,52,56,58,59,66,68) without differentiation. Performed at: =G Performed By: #### V B12LC #### [facility] [address] [place] [address] Dr. Drew Castle HPV Genotype Reflex Comment Normal [facility] Comment on above: Result Comment: Crit eria not met, HPV Genotype not performed. Performed at: WB Performed By: #### V B12LC #### [facility] [address] [place] [address] Dr. Drew Castle Methodology: Comment Normal [facility] Comment on above: Result Comment: This liquid based ThinPrep(R) pap test was screened with the use of an image guided system. Performed at: WB Performed By: #### V B12LC #### [facility] [address] [place] [address] Dr. Drew Castle Note: Comment Normal [facility] Comment on above: Result Comment: The [...] WB Performed By: #### V B12LC #### [facility] [address] [place] [address] Dr. Drew Castle Pathologist Provided ICD10 Comment Normal [facility] Comment on above: Result Comment: R87. 612, R87.5 Performed at: WB Performed By: #### V B12LC #### [facility] [address] [place] [address] Dr. Drew Castle Performed by: Comment Normal [facility] Comment on above: Result Comment: Carley Irvin, Java Programmer Analyst ([employer]) Performed at: WB Performed By: #### V B12LC #### [facility] [address] [place] [address] Dr. Drew Castle Specimen adequacy: Comment Normal [facility] Comment on above: Result Comment: Sati sfactory for evaluation. Endocervical and/or squamous metaplastic cells (endocervical component) are present. Performed at: WB Performed By: #### V B12LC #### [facility] [address] [place] [address] Dr. Drew Castle VAGINITIS/VAGINOSIS DNA PROB Garry 05-26-2022 Candice species Positive Abnormal Negative [facility] Comment on above: Performed By: #### V B12LC #### [facility] [address] [place] [address] Dr. Drew Castle Gardnerella vaginalis Positive Abnormal Negative [facility] Comment on above: Performed By: #### V B12LC #### [facility] [address] [place] [address] Dr. Drew Castle Trichomonas vaginalis Negative Normal Negative [facility] Comment on above: Performed By: #### V B12LC #### [facility] [address] [place] [address] Dr. Drew Castle CULTURE WOUNDon 01-21-2022 CULTURE WOUND Culture Observations : No growth of aerobes at 48 hours. Culture Observations: No growth of anaerobes at 72 hours. Normal [facility] Comment on above: Performed By: #### W OUNDCX #### [facility] [address] [place] [address] Dr. Drew Castle VITAMIN B12on 08-08-2021 Cobalamin (Vitamin B12) [Mass/Vol] 1189 pg/mL Normal 232-1245 [facility] Comment on above: Performed By: #### V B12LC #### [facility] [address] [place] [address] Dr. Drew Castle CBC AUTO DIFFon 08-06-2021 BASO # 0.0 103/ul Normal 0.0-0.1 [facility] Comment on above: Performed By: #### V B12LC #### [facility] [address] [place] [address] Dr. Drew Castle Basophils/100 WBC (Bld) 0.4 % Normal 0.2-2.0 [facility] Comment on above: Performed By: #### V B12LC #### [facility] [address] [place] [address] Dr. Drew Castle EO # 0.3 103/ul Normal 0.0-0.7 [facility] Comment on above: Performed By: #### V B12LC #### [facility] [address] [place] [address] Dr. Drew Castle Eosinophils/100 WBC (Bld) 6.7 % Normal 0.9-7.0 [facility] Comment on above: Performed By: #### V B12LC #### [facility] [address] [place] [address] Dr. Drew Castle Erythrocyte distribution width (RBC) [Ratio] 13.8 % Normal 11.0-15.0 [facility] Comment on above: Performed By: #### V B12LC #### [facility] [address] [place] [address] Dr. Drew Castle Hematocrit (Bld) [Volume fraction] 37.3 % Normal 36.0-48.0 [facility] Comment on above: Performed By: #### V B12LC #### [facility] [address] [place] [address] [address] Drew Castle Hemoglobin (Bld) [Mass/Vol] 12.0 g/dL Normal 12.0-16.0 [facility] Comment on above: Performed By: #### V B12LC #### [facility] [address] [place] [address] [address] Drew Castle IG # 0.01 10e3/ul Normal 0.00-0.03 [facility] Comment on above: Performed By: #### V B12LC #### [facility] [address] [place] [address] [address] Drew Castle IG % 0.2 % Normal 0.0-0.5 [facility] Comment on above: Performed By: #### V B12LC #### [facility] [address] [address] [address] Drew Castle LYMPH # 2.7 103/ul Normal 1.2-3.8 [facility] Comment on above: Performed By: #### V B12LC #### [facility] [address] [address] [address] Drew Castle Lymphocytes/100 WBC (Bld) 59.4 % Normal 20.5-60.0 [facility] Comment on above: Performed By: #### V B12LC #### [facility] [address] [address] [address] Drew Castle MANUAL DIFF REQ NO Normal [facility] Comment on above: Performed By: #### V B12LC #### [facility] [address] [address] [address] Drew Castle MCH (RBC) [Entitic mass] 30.6 pg Normal 26.7-34.0 [facility] Comment on above: Performed By: #### V B12LC #### [facility] [address] [place] [address] [address] Drew Castle MCHC (RBC) [Mass/Vol] 32.2 g/dL Normal 29.9-35.2 [facility] Comment on above: Performed By: #### V B12LC #### [facility] [address] [address] [address] Drew Castle MCV (RBC) [Entitic vol] 95.2 fL Normal 81.0-99.0 [facility] Comment on above: Performed By: #### V B12LC #### [facility] [address] [address] [address] Drew Castle MONO # 0.4 103/ul Normal 0.3-0.8 [facility] Comment on above: Performed By: #### V B12LC #### [facility] [address] [address] [address] Drew Castle Monocytes/100 WBC (Bld) 8.5 % Normal 1.7-12.0 [facility] Comment on above: Performed By: #### V B12LC #### [facility] [address] [place] [address] Dr. Drew Castle NEUT # 1.1 103/ul Critically low 1.4-6.5 [facility] Comment on above: Performed By: #### V B12LC #### [facility] [address] [place] [address] Dr. Drew Castle Neutrophils/100 WBC (Bld) 24.8 % Critically low 43.0-75.0 [facility] Comment on above: Performed By: #### V B12LC #### [facility] [address] [place] [address] Dr. Drew Castle Platelet mean volume (Bld) [Entitic vol] 11.9 fL Normal 9.5-13.5 [facility] Comment on above: Performed By: #### V B12LC #### [facility] [address] [place] [address] [address] Drew Castle PLT 212 103/ul Normal 150-450 [facility] Comment on above: Performed By: #### V B12LC #### [facility] [address] [address] [address] Drew Castle RBC 3.92 106/ul Critically low 4.20-5.40 [facility] Comment on above: Performed By: #### V B12LC #### [facility] [address] [place] [address] Dr. Drew Castle WBC 4.6 103/ul Normal 4.0-11.0 [facility] Comment on above: Performed By: #### V B12LC #### [facility] [address] [place] [address] Dr. Drew Castle FERRITINon 08-06-2021 Ferritin [Mass/Vol] 24.0 ng/mL Normal 6.2-137.0 [facility] Comment on above: Performed By: #### I GAVINO BARRY, FERR, FT4 #### [facility] [address] [place] [address] Dr. Drew Castle FREE T4on 08-06-2021 Free T4 [Mass/Vol] 0.79 ng/dL Normal 0.76-1.46 [facility] Comment on above: Performed By: #### I GAVINO BARRY, FERR, FT4 #### [facility] [address] [place] [address] Dr. Drew Castle GLYCOHEMOGLOBIN A1Con 2021 ADA RECOMMENDATION SEE BELOW Normal [facility] Comment on above: Result Comment: ADA RECOMMENDED LIMIT 4.0 - 6.0 ADA THERAPEUTIC TARGET < 7.0 ACTION SUGGESTED > 7.0 Performed By: #### A 1C #### [facility] [address] [place] [address] Dr. Drew Castle Glucose [Mass/Vol] 111 mg/dL Normal [facility] Comment on above: Performed By: #### A 1C #### [facility] [address] [place] [address] Dr. Drew Castle HbA1c (Bld) [Mass fraction] 5.5 % Normal 4.5-6.2 [facility] Comment on above: Performed By: #### A 1C #### [facility] [address] [place] [address] Dr. Drew Castle IRONon 08-06-2021 Iron [Mass/Vol] 76.0 ug/dL Normal 50.0-170.0 [facility] Comment on above: Performed By: #### I ASHA, VITAD, FERR, FT4 #### [facility] [address] [address] [address] Drew Castle LIPID PROFILEon 08-06-2021 CHOL-HDL RATIO NORM SEE BELOW Normal [facility] Comment on above: Result Comment: 3.3 - 4.4 LOW RISK 4.4 - 7.1 AVERAGE RISK 7.1 - 11.0 MODERATE RISK >11.0 HIGH RISK Performed By: #### C MP, LIPID, TSH #### [facility] [address] [address] [address] Drew Castle Cholesterol [Mass/Vol] 150 mg/dL Normal <=200 [facility] Comment on above: Performed By: #### C MP, LIPID, TSH #### [facility] [address] [address] [address] Drew Castle Cholesterol in HDL [Mass/Vol] 59 mg/dL Normal 40-60 [facility] Comment on above: Performed By: #### C MP, LIPID, TSH #### [facility] [address] [address] [address] Drew Castle Cholesterol in LDL [Mass/Vol] 63.4 mg/dL Normal [facility] Comment on above: Performed By: #### C MP, LIPID, TSH #### [facility] [address] [address] [address] Drew Castle Cholesterol.total/Cho lesterol in HDL [Mass ratio] 2.5 {ratio} Normal [facility] Comment on above: Performed By: #### C MP, LIPID, TSH #### [facility] [address] [address] [address] Drew Castle HDL NORMAL > or = 60 mg/dl - LO W CARDIOVASCULAR RISK <40 mg/dl - HIGH CARDIOVASCULAR RISK Normal [facility] Comment on above: Performed By: #### C MP, LIPID, TSH #### [facility] [address] [address] [address] Drew Castle LDL CALC NORMAL SEE BELOW Normal [facility] Comment on above: Result Comment: <100 mg/dl OPTIMAL 100 - 129 mg/dl NEAR OR ABOVE OPTIMAL 130 - 159 mg/dl BORDERLINE HIGH 160 - 189 mg/dl HIGH >190 mg/dl VERY HIGH Performed By: #### C MP, LIPID, TSH #### [facility] [address] [place] [address] Dr. Drew Castle Triglyceride [Mass/Vol] 138 mg/dL Normal <=150 [facility] Comment on above: Performed By: #### C MP, LIPID, TSH #### [facility] [address] [place] [address] Dr. Drew Castle VLDL CALC 27.6 mg/dL Normal [facility] Comment on above: Performed By: #### C MP, LIPID, TSH #### [facility] [address] [place] [address] Dr. Drew Castle PROF 14(COMP METB)on 022 Albumin [Mass/Vol] 3.5 g/dL Normal 3.4-5.0 [facility] Comment on above: Performed By: #### C MP, LIPID, TSH #### [facility] [address] [place] [address] Dr. Drew Castle Albumin/Globulin [Mass ratio] 1.1 {ratio} Normal [facility] Comment on above: Performed By: #### C MP, LIPID, TSH #### [facility] [address] [place] [address] Dr. Drew Castle ALP [Catalytic activity/Vol] 61 U/L Normal 46-116 [facility] Comment on above: Performed By: #### C MP, LIPID, TSH #### [facility] [address] [place] [address] Dr. Drew Castle ALT [Catalytic activity/Vol] 29 U/L Normal 14-59 [facility] Comment on above: Performed By: #### C MP, LIPID, TSH #### [facility] [address] [place] [address] Dr. Drew Castle Anion gap [Moles/Vol] 13.9 mmol/L Normal [facility] Comment on above: Performed By: #### C MP, LIPID, TSH #### [facility] [address] [place] [address] Dr. Drew Castle AST [Catalytic activity/Vol] 22 U/L Normal 15-37 [facility] Comment on above: Performed By: #### C MP, LIPID, TSH #### [facility] [address] [address] [address] Drew Castle Bilirubin [Mass/Vol] 0.4 mg/dL Normal 0.2-1.0 [facility] Comment on above: Performed By: #### C MP, LIPID, TSH #### [facility] [address] [address] [address] Drew Castle Calcium [Mass/Vol] 8.7 mg/dL Normal 8.5-10.1 [facility] Comment on above: Performed By: #### C MP, LIPID, TSH #### [facility] [address] [place] [address] Dr. Drew Castle Chloride [Moles/Vol] 107 mmol/L Normal 98-107 [facility] Comment on above: Performed By: #### C MP, LIPID, TSH #### [facility] [address] [place] [address] Dr. Drew Castle CO2 [Moles/Vol] 24.9 mmol/L Normal 21.0-32.0 [facility] Comment on above: Performed By: #### C MP, LIPID, TSH #### [facility] [address] [place] [address] Dr. Drew Castle Creatinine [Mass/Vol] 0.76 mg/dL Normal 0.55-1.02 [facility] Comment on above: Performed By: #### C MP, LIPID, TSH #### [facility] [address] [place] [address] Dr. Drew Castle EGFR-AF SYRIAN >60 Normal >=60 [facility] Comment on above: Performed By: #### C MP, LIPID, TSH #### [facility] [address] [place] [address] Dr. Drew Castle EGFR-NON AF SYRIAN >60 Normal >=60 [facility] Comment on above: Performed By: #### C MP, LIPID, TSH #### [facility] [address] [address] [address] Drew Castle Globulin (S) [Mass/Vol] 3.1 g/dL Normal [facility] Comment on above: Performed By: #### C MP, LIPID, TSH #### [facility] [address] [address] [address] Drew Castle Glucose [Mass/Vol] 95 mg/dL Normal 74-106 [facility] Comment on above: Performed By: #### C MP, LIPID, TSH #### [facility] [address] [place] [address] Dr. Drew Castle Potassium [Moles/Vol] 3.8 mmol/L Normal 3.5-5.1 [facility] Comment on above: Performed By: #### C MP, LIPID, TSH #### [facility] [address] [place] [address] Dr. Drew Castle Protein [Mass/Vol] 6.6 g/dL Normal 6.4-8.2 [facility] Comment on above: Performed By: #### C MP, LIPID, TSH #### [facility] [address] [address] [address] Drew Castle Sodium [Moles/Vol] 142 mmol/L Normal 136-145 [facility] Comment on above: Performed By: #### C MP, LIPID, TSH #### [facility] [address] [place] [address] Dr. Drew Castle Urea nitrogen [Mass/Vol] 16.0 mg/dL Normal 7.0-18.0 [facility] Comment on above: Performed By: #### C MP, LIPID, TSH #### [facility] [address] [place] [address] Dr. Drew Castle Urea nitrogen/Creatinine [Mass ratio] 21.1 mg/mg Normal [facility] Comment on above: Performed By: #### C MP, LIPID, TSH #### [facility] [facility] [address] [place] [address] Dr. Drew Castle TSHon 08-06-2021 TSH 2.421 uIU/mL Normal 0.358-3.740 [facility] Comment on above: Performed By: #### C MP, LIPID, TSH #### [facility] [address] [place] [address] Dr. Drew Castle TSH RANGE SEE BELOW Normal [facility] Comment on above: Result Comment: <0.3 4 UIU/ml HYPERTHYROID 0.34-5.60 UIU/ml EUTHYROID >5.60 UIU/ml HYPOTHYROID Performed By: #### C MP, LIPID, TSH #### [facility] [address] [place] [address] Dr. Drew Castle UA RANDOM W/MICROSCOPICon BACTERIA NONE SEEN Normal NONE SEEN [facility] Comment on above: Performed By: #### V B12LC #### [facility] [address] [place] [address] Dr. Drew Castle Bilirubin Ql (U) SMALL Abnormal NEGATIVE [facility] Comment on above: Performed By: #### V B12LC #### [facility] [address] [place] [address] Dr. Drew Castle CAST NONE SEEN Normal NONE SEEN [facility] Comment on above: Performed By: #### V B12LC #### [facility] [address] [place] [address] Dr. Drew Castle Clarity (U) CLOUDY Abnormal CLEAR [facility] Comment on above: Performed By: #### V B12LC #### [facility] [address] [place] [address] Dr. Drew Castle Color (U) DK. YELLOW Normal YELLOW [facility] Comment on above: Performed By: #### V B12LC #### [facility] [address] [place] [address] Dr. Drew Castle Crystals LM Nom (Urine sed) NONE SEEN Normal NONE SEEN [facility] Comment on above: Performed By: #### V B12LC #### [facility] [address] [place] [address] Dr. Drew Castle Epithelial cells LM Ql (Urine sed) RARE Normal NONE SEEN /RARE [facility] Comment on above: Performed By: #### V B12LC #### [facility] [address] [address] [address] Drew Castle Glucose Ql (U) Negative Normal NEGATIVE [facility] Comment on above: Performed By: #### V B12LC #### [facility] [address] [address] [address] Drew Castle Hemoglobin Ql (U) Negative Normal NEGATIVE [facility] Comment on above: Performed By: #### V B12LC #### [facility] [address] [place] [address] Dr. Drew Castle Ketones Ql (U) Negative Normal NEGATIVE [facility] Comment on above: Performed By: #### V B12LC #### [facility] [address] [place] [address] Dr. Drew Castle LEUKOCYTES Negative Normal NEGATIVE [facility] Comment on above: Performed By: #### V B12LC #### [facility] [address] [place] [address] Dr. Drew Castle MUCOUS NONE SEEN Normal NONE SEEN [facility] Comment on above: Performed By: #### V B12LC #### [facility] [address] [place] [address] Dr. Drew Castle Nitrite Ql (U) Negative Normal NEGATIVE [facility] Comment on above: Performed By: #### V B12LC #### [facility] [address] [place] [address] Dr. Drew Castle pH (U) 6.5 [pH] Normal 5-9 [facility] Comment on above: Performed By: #### V B12LC #### [facility] [address] [place] [address] Dr. Drew Castle RBC NONE SEEN Abnormal 0-2 [facility] Comment on above: Performed By: #### V B12LC #### [facility] [address] [place] [address] Dr. Drew Castle SPEC GRAVITY 1.025 Normal 1.005-<=1.02 5 [facility] Comment on above: Performed By: #### V B12LC #### [facility] [address] [place] [address] Dr. Drew Castle UA PROTEIN TRACE Normal NEGATIVE/ TRACE [facility] Comment on above: Performed By: #### V B12LC #### [facility] [address] [place] [address] Dr. Drew Castle Urobilinogen Qn (U) 1.0 {Jeff'U}/dL Normal 0.2 - 1. 0 [facility] Comment on above: Performed By: #### V B12LC #### [facility] [address] [place] [address] Dr. Drew Castle WBC NONE SEEN Normal NONE SEEN [facility] Comment on above: Performed By: #### V B12LC #### [facility] [address] [place] [address] Dr. Drew Castle VITAMIN D 25 OHon 08-06-2021 VIT D 25-OH 45.7 ng/mL Normal [facility] Comment on above: Performed By: #### I ASHA VITJAYA FERR, FT4 #### [facility] [address] [place] [address] Dr. Drew Castle VIT D RANGES SEE BELOW Normal [facility] Comment on above: Result Comment: <20 ng/mL Vit D deficient 20 - <30 ng/mL Vit D insufficient 30 - 100 ng/mL Vit D sufficient >100 ng/mL Potential Toxicity Performed By: #### I ASHA VITAD, FERR, FT4 #### [facility] [address] [place] [address] Dr. Drew Castle Complete Blood Count Auto Di ffon 03-03-2021 Basophils (Bld) [#/Vol] 0.0 10*3/uL 0.0-0.2 [employer] Other Basophils/100 WBC (Bld) 0.2 % . [employer] Other Eosinophils (Bld) [#/Vol] 0.2 10*3/uL 0.0-0.45 [employer] Other Eosinophils/100 WBC (Bld) 2.4 % . [employer] Other Erythrocyte distribution width (RBC) [Ratio] 14.0 % 11.9-15.3 [employer] Other Hematocrit (Bld) [Volume fraction] 39.2 % 34.0-46.4 [employer] Other Hemoglobin (Bld) [Mass/Vol] 13.6 g/dL 11.8-15.4 [employer] Other Lymphocytes (Bld) [#/Vol] 2.3 10*3/uL 1.00-4.8 [employer] Other Lymphocytes/100 WBC (Bld) 31.0 % . [employer] Other MCH (RBC) [Entitic mass] 31.3 pg 24.7-34.3 [employer] Other MCH (RBC) [Entitic mass] 34.6 pg 32.0-35.0 [employer] Other MCV (RBC) [Entitic vol] 90.4 fL 80-100 [employer] Other Monocytes (Bld) [#/Vol] 0.3 10*3/uL 0.0-0.8 [employer] Other Monocytes/100 WBC (Bld) 4.7 % . [employer] Other Neutrophils (Bld) [#/Vol] 4.5 10*3/uL 1.8-7.7 [employer] Other Neutrophils/100 WBC (Bld) 61.7 % . [employer] Other Platelet mean volume (Bld) [Entitic vol] 8.3 fL 6.3-10.7 [employer] Other Platelets (Bld) [#/Vol] 232 10*3/uL 150-450 [employer] Other RBC (Bld) [#/Vol] 4.34 10*6/uL 3.60-5.00 [employer] Other WBC (Bld) [#/Vol] 7.3 10*3/uL 3.8-11.6 [employer] Other Complete Blood Count Auto Diff 7.3 4.5-11.0 [employer] Other Complete Blood Count Auto Diff 0.2 0-0.5 [employer] Other Prothrombin Time INRon 03-03 INR Coag (PPP) [Relative time] 1.2 {INR} [employer] Other PT Coag (PPP) [Time] 13.3 s 9.0-12.9 [employer] Other Acetaminophen levelOrdered B y: Sai Mary on 12-27-2020 Acetaminophen Level <5 Low 10 - 30 ug/mL [employer] Phone: Interpretation and review of laboratory results Abnormal [employer] Work Phone: [employer] Work Phone: Blood Gas, VenousOrdered By: Sai Hernandez on 12-27-2020 Manuel Test NOT REPORTED [employer] Phone: Carboxyhemoglobin NOT REPORTED 0.0 - 5.0 % [employer] Phone: Comment on above: FIO2 NOT REPORTED [employer] Work Phone: HCO3 (Bld) [Moles/Vol] 27.8 mmol/L 24.0 - 30.0 mmol/L [employer] Work Phone: Interpretation and review of laboratory results Abnormal [employer] Work Phone: Methemoglobin NOT REPORTED 0.0 - 1.9 % [employer] Work Phone: Mode NOT REPORTED [employer] Work Phone: Negative Base Excess, Rm NOT [...] Work Phone: Text for Respiratory NOT REPORTED [facility] Work Phone: Total Hb NOT REPORTED 12.0 - 16.0 g/dl [facility] Work Phone: Total Rate NOT REPORTED [employer] Work Phone: VT NOT REPORTED [employer] Work Phone: [employer] Work Phone: CBC Auto DifferentialOrdered By: Sai Hernandez on 12-27-2020 Absolute Eos # 0.26 [facility] Work Phone: Absolute Immature Granulocyte <0.03 [employer] Work Phone: Absolute Lymph # 1.88 [facility] Work Phone: Absolute [place] # 0.36 [facility] Work Phone: Basophils (Bld) [#/Vol] 10*3/uL [employer] Work Phone: Basophils/100 WBC (Bld) 0 % 0 - 2 % [employer] Work Phone: Differential Type NOT REPORTED [employer] Work Phone: Eosinophils/100 WBC (Bld) 5 % High 1 - 4 % [employer] Phone: Hematocrit (Bld) [Volume fraction] 38.9 % 36.3 - 47.1 % [employer] Phone: Hemoglobin.gastrointe stinal spec 1 Ql (Stl) 12.5 g/dL 11.9 - 15.1 g/dL [employer] Work Phone: Immature granulocytes/100 WBC (Bld) 0 % 0 [employer] Work Phone: Interpretation and review of laboratory results Abnormal [employer] Phone: Lymphocytes/100 WBC (Bld) 38 % 24 - 43 % [employer] Work Phone: MCH (RBC) [Entitic mass] 29.3 pg 25.2 - 33.5 pg [employer] Work Phone: MCHC (RBC) [Mass/Vol] 32.1 g/dL 28.4 - 34.8 g/dL [employer] Phone: MCV (RBC) [Entitic vol] 91.3 fL 82.6 - 102.9 fL [employer] Phone: Monocytes/100 WBC (Bld) 7 % 3 - 12 % [employer] Work Phone: NRBC Automated 0.0 0.0 per 100 WBC [employer] Phone: Platelet distribution width (Bld) [Ratio] 13.3 % 11.8 - 14.4 % [employer] Phone: Platelet Estimate NOT REPORTED [employer] Phone: Platelet mean volume (Bld) [Entitic vol] 10.4 fL 8.1 - 13.5 fL [employer] Phone: Platelets (Bld) [#/Vol] 181 10*3/uL [employer] Work Phone: RBC (Bld) [#/Vol] 4.26 10*6/uL 3.95 - 5.1 1 m/uL [employer] Work Phone: RBC (Bld) [#/Vol] NOT REPORTED [employer] Work Phone: Segmented neutrophils/100 WBC (Bld) 50 % 36 - 65 % [employer] Work Phone: Segs Absolute 2.49 [employer] Work Phone: WBC (Bld) [#/Vol] 5.0 10*3/uL [employer] Work Phone: WBC (Bld) [#/Vol] NOT REPORTED [employer] Work Phone: [employer] Work Phone: Comprehensive Metabolic Pane l w/ Reflex to MGOrdered By: Sai Hernandez on 12-27-2020 Albumin [Mass/Vol] 4.1 g/dL 3.5 - 5.2 g/dL [employer] Phone: Albumin/Globulin [Mass ratio] 1.7 {ratio} [employer] Phone: ALP (Bld) [Catalytic activity/Vol] 92 U/L 35 - 104 U/L [employer] Phone: ALT [Catalytic activity/Vol] 19 U/L 5 - 33 U/L [employer] Phone: Anion gap [Moles/Vol] 13 mmol/L 9 - 17 mmol/L [employer] Phone: AST [Catalytic activity/Vol] 25 U/L <32 [employer] Phone: Bilirubin [Mass/Vol] 0.57 mg/dL 0.3 - 1 .2 mg/dL [employer] Phone: Calcium [Mass/Vol] 9.4 mg/dL 8.6 - 10. 4 mg/dL [employer] Phone: Chloride [Moles/Vol] 101 mmol/L 98 - 10 7 mmol/L [employer] Phone: CO2 [Moles/Vol] 21 mmol/L 20 - 31 mmol/L [employer] Phone: Creatinine [Mass/Vol] 0.73 mg/dL 0.50 - 0.90 mg/dL [employer] Phone: Free PSA/Total PSA [Mass fraction] 6.5 g/dL 6.4 - 8.3 g/dL [employer] Phone: GFR >60 >60 mL/min [employer] Phone: GFR Non- >60 >60 mL/min [employer] Phone: Glucose [Mass/Vol] 104 mg/dL High 70 - 99 mg/dL [employer] Phone: Potassium [Moles/Vol] 4.0 mmol/L 3.7 - 5.3 mmol/L [facility] Work Phone: Sodium [Moles/Vol] 135 mmol/L 135 - 144 mmol/L [facility] Work Phone: Urea nitrogen (BldV) [Mass/Vol] 9 mg/dL 6 - 20 mg/dL [facility] Work Phone: Urea nitrogen/Creatinine (Bld) [Mass ratio] 12 [facility] Work Phone: Drug screen multi urineOrder [...] Interpretation and review of laboratory results Abnormal [facility] Work Phone: MDMA, Urine NOT REPORTED NEGATIVE [employer] Work Phone: Methadone Screen, Urine Negative NEGATIVE [facility] Work Phone: Methamphetamine, Urine Positive Abnormal NEGATIVE [facility] Work Phone: Opiates, Urine Negative NEGATIVE [facility] Work Phone: Oxycodone Screen, Ur Negative NEGATIVE [facility] Work Phone: Phencyclidine, Urine Negative NEGATIVE [facility] Work Phone: Propoxyphene, Urine Negative NEGATIVE [facility] Work Phone: Test Information NOT REPORTED [facility] Work Phone: Tricyclic Antidepressants, Urine Negative NEGATIVE [employer] Phone: Comment on above: Drug screen results are to be used for medical purposes only. All positive results are unconfirmed. Testing for employment or legal uses should be sent to a reference laboratory for confirmation. [employer] Phone: EthanolOrdered By: Sai munson on 12-27-2020 Ethanol [Mass/Vol] mg/dL <10 mg/dL [employer] Phone: Ethanol percent <0.010 <0.010 % [facility] Work Phone: [employer] Phone: Glucose, Whole BloodOrdered By: Sai Hernandez on 12-27-2020 Glucose [Mass/Vol] 75 mg/dL 74 - 100 mg/dL [employer] Phone: [employer] Phone: HCG, Quantitative, Ordered By: Sai Hernandez on 12-27-2020 hCG Quant <1 <5 IU/L [employer] Phone: Comment on above: Non-preg premeno <=5 Postmeno <=8 Male <=3 If HCG results do not concur with clinical observations, additional testing to confirm results is recommended. Elevated results not associated with may be found in patients with other diseases such as tumors of the germ cells (testis, ovaries, etc.), bladder, pancreas, stomach, lungs, and liver. [employer] Phone: Laboratory - Chemistry and C hemistry - challengeOrdered By: Sai Hernandez on 12-27-2020 GFR/1.73 sq M.predicted MDRD (S/P/Bld) [Vol rate/Area] [employer] Phone: Comment on above: Average GFR for 30-3 9 years old: 107 mL/min/1.73sq m Chronic Kidney Disease: <60 mL/min/1.73sq m Kidney failure: <15 mL/min/1.73sq m eGFR calculated using average adult body mass. Additional eGFR calculator available at: http://www.OpenBook.KonTEM/multiple_crcl_2012.htm Stage 1: Some kidney damage normal GFR Stage 2: Mild kidney damage GFR 60-89 Stage 3: Moderate kidney damage GFR 30-59 Stage 4: Severe kidney damage GFR 15-29 Stage 5: Severe kidney damage GFR <15 ESRD - chronic treatment by dialysis or transplant No Panel InformationOrdered By: Sai Hernandez on 12-27-2020 Interpretation and review of laboratory results Abnormal [facility] Work Phone: [facility] Work Phone: SalicylateOrdered By: Gonzalez Hernandez on 12-27-2020 Salicylate Lvl <1 Low 3 - 10 mg/dL [facility] Work Phone: Urinalysis, reflex to micros copicOrdered By: Sai Hernandez on 12-27-2020 Bilirubin Urine Negative NEGATIVE [facility] Work Phone: Color, UA Yellow Yellow [facility] Work Phone: Glucose, Ur Negative NEGATIVE [facility] Work Phone: Interpretation and review of laboratory results Abnormal [facility] Work Phone: Ketones Ql (U) Negative NEGATIVE [facility] Work Phone: Leukocyte esterase Test strip Ql (U) Negative NEGATIVE [facility] Work Phone: Nitrite, Urine Negative NEGATIVE [facility] Work Phone: pH, UA 6.0 [facility] Work Phone: Protein, UA Negative NEGATIVE [facility] Work Phone: Specific [place], UA <1.005 Low [facility] Work Phone: Turbidity UA Clear Clear [facility] Work Phone: Urinalysis Comments NOT REPORTED [facility] Work Phone: Urine Hgb Negative NEGATIVE [employer] Phone: Urobilinogen, Urine Normal Normal [employer] Phone: [employer] Work Phone: Operative Reporton Operative Report MR#: [id number] [facility] Pt. Name: Tyrone Lim Room #: PMC [...] to interact and give feedback. 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 The needle was advanced into [...] Mckeon MD Date Trans: 07/08/2020 02:30 P/ [id number] Normal [facility] SPINAL PAIN BLOCKon 07-09-19 SPINAL PAIN BLOCK [facility] Department of Radiology [address] [place] [id number] == Patient Name: TYRONE LIM : 1985 Sex: F Age: Race: White Pt. Location: 18 Patient Status: Ordered Date: 07/08/2020 5:00:00 AM Completed Date: 07/08/2020 01:13 PM Requesting Provider: ALEYDA GOMEZ Attending Provider: Report Copy To: Signs & Symptoms: M96.1 Postlaminectomy syndrome, not elsewhere classified I10 History: Comments: [id number] (50) BILAT S1 TFESI #2 Exam: SPINAL PAIN BLOCK == SPINAL PAIN BLOCK 07/08/2020 1:13 PM SIGNS AND SYMPTOMS: M96.1 Postlaminectomy syndrome, not elsewhere classified I10 TECHNOLOGIST COMMENTS:bilateral S1 TFE .34 min. fluoro. time used - Dr. Gomez IMPRESSION: 0.34 minutes of fluoroscopy was provided for Dr. Gomez for an epidural pain block. Millicent FerraroRT-R [employer] Wafer Electronically signed: ONLY DOCUMENTATION. Transcribed by: [email or web address], User Resident: Electronically Signed by: ONLY DOCUMENTATION @ 07/08/2020 02:14 PM Normal [facility] Comment on above: Order Comment: [id number] (50) BILAT S1 TFESI #2 Operative Reporton Operative Report MR#: [id number] [facility] Pt. Name: Tyrone Lim Room #: [facility] Discharge Date: Birthdate: 1985 OPERATIVE REPORT DATE [...] to interact and give feedback. The x-ray aviation safety equipment technician was supervised and instructed to operate [...] 25-gauge, 5-inch andrew needle was inserted using molm-jry-fveeat-of-the-n eedle technique. The needle was advanced into [...] Mckeon MD Date Trans: 06/23/2020 12:38 P/ [id number] Normal [facility] SPINAL PAIN BLOCKon 06-24-19 21 SPINAL PAIN BLOCK [facility] Department of Radiology [address] [place] [id number] == Patient Name: TYRONE LIM : 1985 Sex: F Age: Race: White Pt. Location: 18 Patient Status: Ordered Date: 06/11/2020 5:00:00 AM Completed Date: 06/23/2020 11:44 AM Requesting Provider: ALEYDA GOMEZ Attending Provider: Report Copy To: Signs & Symptoms: M96.1 Postlaminectomy syndrome, not elsewhere classified I10 History: Comments: [id number] (50) BILAT S1 TFESI #1 Exam: SPINAL PAIN BLOCK == SPINAL PAIN BLOCK 06/23/2020 11:44 AM SIGNS AND SYMPTOMS: M96.1 Postlaminectomy syndrome, not elsewhere classified I10 TECHNOLOGIST COMMENTS:Dr. Gomez used .43 min of white fluoro time arti S1 TFE IMPRESSION: 0.43 minutes of fluoroscopy was provided for her Patricia for an epidural pain block. AMBAR Burch [employer] Wafer Electronically signed: ONLY DOCUMENTATION. Transcribed by: [email or web address], User Resident: Electronically Signed by: ONLY DOCUMENTATION @ 06/23/2020 03:20 PM Normal [facility] Comment on above: Order Comment: [id number] (38) BILAT S1 TFESI #1 MRI LUMBAR SPINE WO CONTRAST on 09-05-2019 MRI LUMBAR SPINE WO CONTRAST [facility] Department of Radiology [address] [place] [phone] == Patient Name: TYRONE LIM : 1985 Sex: F Age: Race: White Pt. Location: 18 Patient Status: D Ordered Date: 08/23/2019 8:55:00 AM Completed Date: 09/05/2019 11:17 AM Requesting Provider: ALEYDA GOMEZ Attending Provider: Report Copy To: Signs & Symptoms: M54.5 Low back pain I10 History: [employer] Auth via [employer] for CPT 88040 Auth#[id number] Valid 08/28/19-11/26/19 *Sla No to all COVID [...] described. Electronically signed: Arsh Hatfield. Transcribed by: [email or web address], User Resident: Electronically Signed by: ARSH HATFIELD @ 09/06/2019 01:26 PM Normal [facility] Comment on above: Order Comment: Sharona Gipson Operative Reporton 0 Operative Report MR#: [id number] [facility] Pt. Name: Tyrone Lim Room #: PMC [...] to interact and give feedback. The x-ray aviation safety equipment technician was supervised and instructed to operate [...] 5-inch Andrew spinal needle was inserted using woce-cex-izjbfk-of-the-n eedle technique. The needle was advanced into [...] Armijo MD Date Trans: 08/07/2019 03:57 P/ [id number] Normal [facility] SPINAL PAIN BLOCKon 08-07-19 20 SPINAL PAIN BLOCK [facility] Department of Radiology [address] [place] [phone] == Patient Name: TYRONE LIM [...] for an epidural pain block. AMBAR Alcazar [employer] Wafer Electronically signed: ONLY DOCUMENTATION. Transcribed by: [email or web address], User Resident: Electronically Signed by: ONLY DOCUMENTATION @ 08/13/2019 09:18 AM Normal [facility] Comment on above: Order Comment: LEFT S1 TFESI X1 Otheron 2019 Left foot: No acute osseous abnormality. Right foot: Nondisplaced fracture through the 5th metatarsal head without intra-articular extension. Comminuted distal 4th metatarsal fracture with slight impaction and overriding. No joint dislocation is noted. Soft tissue swelling over the forefoot is noted. [facility]: TWO XRA Y VIEWS OF THE [...] tissue swelling over the midfoot is noted. [facility] [place], [facility] Incoming Radiant Results From [employer] - 2019 3:40 PM EST EXAMINATION: TWO [...] tissue swelling over the forefoot is noted. [place], [place] Basic Metabolic Panelon 12-07 Anion gap [Moles/Vol] 10 mmol/L 9 - 17 mmol/L [place] Bun/Cre Ratio 9 [place], [place] Calcium [Mass/Vol] 9.6 mg/dL 8.6 - 10. 4 mg/dL [place] Chloride [Moles/Vol] 107 mmol/L 98 - 10 7 mmol/L [place] CO2 [Moles/Vol] 22 mmol/L 20 - 31 mmol/L [place] Creatinine [Mass/Vol] 0.89 mg/dL 0.5 - 0.9 mg/dL [place] GFR >60 >60 mL/min [place], [place] GFR Non- >60 >60 mL/min [place] Glucose [Mass/Vol] 75 mg/dL 70 - 99 mg/dL [place] Interpretation and review of laboratory results Abnormal [place] Potassium [Moles/Vol] 5.9 mmol/L High 3.7 - 5.3 mmol/L [place] Sodium [Moles/Vol] 139 mmol/L 135 - 144 mmol/L [place] Urea nitrogen [Mass/Vol] 8 mg/dL 6 - 20 mg/dL [place] C-Reactive Proteinon 019 CRP [Mass/Vol] 3.4 mg/L 0 - 5 mg/L [place], [place] CBC Auto Differentialon 12-07 Basophils (Bld) [#/Vol] 0.03 10*3/uL [place] Basophils/100 WBC (Bld) 0 % 0 - 2 % [place] Differential Type NOT REPORTED [place] Eosinophils (Bld) [#/Vol] 0.39 10*3/uL [place] Eosinophils/100 WBC (Bld) 4 % 1 - 4 % [place] Erythrocyte distribution width (RBC) [Ratio] 12.7 % 11.8 - 14.4 % [place] Hematocrit (Bld) [Volume fraction] 46.9 % 36.3 - 47.1 % [place] Hemoglobin (Bld) [Mass/Vol] 15.6 g/dL High 11.9 - 15.1 g/dL [place] Immature granulocytes (Bld) [#/Vol] 1 % High 0 [place] Immature granulocytes (Bld) [#/Vol] 0.05 10*3/uL [place] Interpretation and review of laboratory results Abnormal [place] Lymphocytes (Bld) [#/Vol] 2.86 10*3/uL [place] Lymphocytes/100 WBC (Bld) 30 % 24 - 43 % [place] MCH (RBC) [Entitic mass] 30.6 pg 25.2 - 33.5 pg [place] MCHC (RBC) [Mass/Vol] 33.3 g/dL 28.4 - 34.8 g/dL [place] MCV (RBC) [Entitic vol] 92.0 fL 82.6 - 102.9 fL [place] Monocytes (Bld) [#/Vol] 0.62 10*3/uL [place] Monocytes/100 WBC (Bld) 7 % 3 - 12 % [place] Platelet mean volume (Bld) [Entitic vol] 11.0 fL 8.1 - 13.5 fL [place] Platelets (Bld) [#/Vol] 218 10*3/uL [place] Platelets (Bld) [#/Vol] NOT REPORTED [place] RBC (Bld) [#/Vol] 5.10 10*6/uL 3.95 - 5.1 1 m/uL [facility] RBC morphology finding Nom (Bld) NOT REPORTED [facility] Segmented neutrophils/100 WBC (Bld) 58 % 36 - 65 % [facility] Segs Absolute 5.57 [facility] WBC (Bld) [#/Vol] 9.5 10*3/uL [place] WBC (Bld) [#/Vol] 0.0 10*3/uL 0.0 per 10 0 WBC [place] WBC Morphology NOT REPORTED [facility] D-Dimer, Quantitativeon 12-07 D-Dimer, Quant 0.57 High [facility] Comment on above: Elevated levels of D [...] review of laboratory results Abnormal [facility] MRI LUMBAR SPINE WO CONTRAST on 01-03-2019 [place], [facility] Incoming Radiant Results From [employer] - 01/03/2019 5:32 PM EDT EXAMINATION: MRI [...] and contacting the left L5 nerve root. [place] EXAMINATION: MRI OF THE LUMBAR SPINE [...] likely contacts the left L5 nerve root. [place] Large disc protrusio n within the left L5-S1 foramina causing severe stenosis and contacting the left L5 nerve root. [place] Metabolic Panelon 01-03-2019 GFR/1.73 sq M predicted among non-blacks MDRD (S/P/Bld) [Vol rate/Area] [place], [place] Comment on above: Average GFR for 30-3 9 years old: 107 mL/min/1.73sq m Chronic Kidney Disease: <60 mL/min/1.73sq m Kidney failure: <15 mL/min/1.73sq m eGFR calculated using average adult body mass. Additional eGFR calculator available at: http://www.Lopoly/multiple_crcl_2012.htm Stage 1: Some kidney damage normal GFR Stage 2: Mild kidney damage GFR 60-89 Stage 3: Moderate kidney damage GFR 30-59 Stage 4: Severe kidney damage GFR 15-29 Stage 5: Severe kidney damage GFR <15 ESRD - chronic treatment by dialysis or transplant Sedimentation Rateon 019 Sed Rate 5 mm 0 - 20 mm [place] Urinalysis with Microscopico n 01-03-2019 Amorphous, UA 1+ Abnormal None [place], [place] Bacteria, UA TRACE Abnormal None [place] Bilirubin Urine Negative NEGATIVE [place] Casts UA NOT REPORTED /LPF [place] Color, UA YELLOW YELLOW [place] Crystals UA CALCIUM OXALATE Abnormal None /HPF [place] Crystals UA 2 TO 5 Abnormal None /HPF [place] Epithelial Cells UA 2 TO 5 [place] Glucose, Ur Negative NEGATIVE [place] Interpretation and review of laboratory results Abnormal [place] Ketones Ql (U) TRACE Abnormal NEGATIVE [place], [place] Leukocyte esterase Test strip Ql (U) Negative NEGATIVE [place] Mucus, UA NOT REPORTED None [place] Nitrite, Urine Negative NEGATIVE [place] Other Observations UA NOT REPORTED NOT REQ. M [place], [place] pH, UA 5.5 [place] Protein (U) [Mass/Vol] Negative NEGATIVE [place] RBC (U) [#/Vol] None [place] Renal Epithelial, Urine NOT REPORTED 0 /HPF [place] Specific [place], UA 1.020 [place], [place] Trichomonas, UA NOT REPORTED None [place], [place] Turbidity UA CLEAR CLEAR [place] Urinalysis Comments NOT REPORTED [place], [place] Urine Hgb Negative NEGATIVE [place] Urobilinogen, Urine ELEVATED Abnormal Normal [place] WBC, UA 0 TO 2 [place] Yeast, UA NOT REPORTED None [place], [place] - [place] XR CHEST STANDARD (2 VW)on No acute cardiopulmo nary pathology. [place] EXAMINATION: TWO XRA Y VIEWS OF [...] structures and soft tissues are grossly intact. [place] S[place], Mhpn Incoming Radiant Results From [employer] - 01/03/2019 4:49 PM EDT EXAMINATION: TWO [...] grossly intact. IMPRESSION: No acute cardiopulmonary pathology. [place] VL DUP LOWER EXTREMITY VENOU S LEFTon 11-15-2018 [facility] l Vascular Lower Extremities DVT Study Procedure Patient Name FISHE Date of Study 11/14/2018 HOLGER Hewitt Date of 1985 Gender Female Age 33 year(s) Race Room Number Corporate ID # [id number] Patient MR # [id number] Bullet Slugs Inspector FANG Banerjee Interpreting Physician Gino Shepherd Referring [...] !Popliteal !Phasic! ! ! + ----+------+------+----- ---+ [facility] [place], [place] Sagar, tanna Incoming Cardio Results From [facility]/ - 11/15/2018 12:52 PM EDT [facility] Vascular Lower Extremities DVT Study Procedure Patient Name JENNA Date of Study 11/14/2018 HOLGER Hewitt Date of 1985 Gender Female Age 33 year(s) Race Room Number Corporate ID # [id number] Patient MR # [id number] Bullet Slugs Inspector FANG Banerjee Interpreting Physician Gino Shepherd Referring [...] !Phasic! ! ! + ----+------+------+----- --- + [place] Brain Natriuretic Peptideon 11-14-2018 Natriuretic peptide B (Bld) [Mass/Vol] 50 pg/mL <300 [place] Comment on above: Pro-BNP results audrey ot be compared to BNP results. Natriuretic peptide B (Bld) [Mass/Vol] Pro-BNP Reference Range: [place] Comment on above: Rule Out: <300 [place] Zone: Age <50 300-450 Age 50-75 300-900 Age >75 300-1800 Usually represents mild to moderate HF but other cardiopulmonary causes cannot be ruled out. Rule In: Age <50 >450 Age 50-75 >900 Age >75 >1800 CBC Auto Differentialon 11-05 Basophils (Bld) [#/Vol] 0.07 10*3/uL [place] Basophils/100 WBC (Bld) 1 % 0 - 2 % [place] Differential Type NOT REPORTED [place] Eosinophils (Bld) [#/Vol] 0.73 10*3/uL High [place] Eosinophils/100 WBC (Bld) 11 % High 1 - 4 % [place] Erythrocyte distribution width (RBC) [Ratio] 13.2 % 11.8 - 14.4 % [place] Hematocrit (Bld) [Volume fraction] 39.1 % 36.3 - 47.1 % [place] Hemoglobin (Bld) [Mass/Vol] 12.8 g/dL 11.9 - 15.1 g/dL [place] Immature granulocytes (Bld) [#/Vol] 1 % High 0 [place] Immature granulocytes (Bld) [#/Vol] 0.07 10*3/uL [place] Interpretation and review of laboratory results Abnormal [place] Lymphocytes (Bld) [#/Vol] 1.78 10*3/uL [place] Lymphocytes/100 WBC (Bld) 27 % 24 - 43 % [place] MCH (RBC) [Entitic mass] 31.0 pg 25.2 - 33.5 pg [place] MCHC (RBC) [Mass/Vol] 32.7 g/dL 28.4 - 34.8 g/dL [place] MCV (RBC) [Entitic vol] 94.7 fL 82.6 - 102.9 fL [place] Monocytes (Bld) [#/Vol] 0.59 10*3/uL [place] Monocytes/100 WBC (Bld) 9 % 3 - 12 % [place] Morphology Cristiano (Bld) [Interp] Normal [place] Platelet mean volume (Bld) [Entitic vol] 11.2 fL 8.1 - 13.5 fL [place] Platelets (Bld) [#/Vol] NOT REPORTED [place] Platelets (Bld) [#/Vol] 213 10*3/uL [place] RBC (Bld) [#/Vol] 4.13 10*6/uL 3.95 - 5.1 1 m/uL [place] RBC morphology finding Nom (Bld) NOT REPORTED [place] Segmented neutrophils/100 WBC (Bld) 51 % 36 - 65 % [place] Segs Absolute 3.36 [place] WBC (Bld) [#/Vol] 6.6 10*3/uL [place] WBC (Bld) [#/Vol] 0.0 10*3/uL 0.0 per 10 0 WBC [place] WBC Morphology NOT REPORTED [place] Comprehensive Metabolic Pane l w/ Reflex to MGon 11-14-2018 Albumin [Mass/Vol] 3.6 g/dL 3.5 - 5.2 g/dL [place] Albumin/Globulin [Mass ratio] 1.3 {ratio} [place] ALP [Catalytic activity/Vol] 407 U/L High 35 - 104 U/L [place] ALT [Catalytic activity/Vol] 723 U/L High 5 - 33 U/L [place] Anion gap [Moles/Vol] 13 mmol/L 9 - 17 mmol/L [place] AST [Catalytic activity/Vol] 657 U/L High <32 [place] Bilirubin Ql (U) 1.91 mg/dL High 0.3 - 1.2 mg/dL [place] Bun/Cre Ratio 19 [place], [place] Calcium [Mass/Vol] 8.9 mg/dL 8.6 - 10. 4 mg/dL [place] Chloride [Moles/Vol] 103 mmol/L 98 - 10 7 mmol/L [place] CO2 [Moles/Vol] 24 mmol/L 20 - 31 mmol/L [place] Creatinine [Mass/Vol] 0.96 mg/dL High 0.5 - 0.9 mg/dL [place] GFR >60 >60 mL/min [place] GFR Non- >60 >60 mL/min [place] Glucose [Mass/Vol] 71 mg/dL 70 - 99 mg/dL [place] Interpretation and review of laboratory results Abnormal [place] Potassium [Moles/Vol] 4.0 mmol/L 3.7 - 5.3 mmol/L [place] Protein [Mass/Vol] 6.4 g/dL 6.4 - 8.3 g/dL [place] Sodium [Moles/Vol] 140 mmol/L 135 - 144 mmol/L [place] Urea nitrogen [Mass/Vol] 18 mg/dL 6 - 20 mg/dL [place] HIV Screenon 11-14-2018 HIV Ag/Ab NONREACTIVE NONREACTIVE [place] Comment on above: No laboratory eviden ce of HIV infection. If acute HIV infection is suspected, consider testing for HIV-1 RNA. Hepatitis Panel, Acuteon HAV IgM IA Qn (S) NONREACTIVE NONREACTIVE [place] Hep B Core Ab, IgM NONREACTIVE NONREACTIVE [place] Hepatitis B Surface Ag NONREACTIVE NONREACTIVE [place] Hepatitis C Ab REACTIVE Abnormal NONREACTIVE [place] Comment on above: The hepatitis C [...] Interpretation and review of laboratory results Abnormal [place] Metabolic Panelon 11-14-2018 GFR/1.73 sq M predicted among non-blacks MDRD (S/P/Bld) [Vol rate/Area] [place] Comment on above: Average GFR for 30-3 9 years old: 107 mL/min/1.73sq m Chronic Kidney Disease: <60 mL/min/1.73sq m Kidney failure: <15 mL/min/1.73sq m eGFR calculated using average adult body mass. Additional eGFR calculator available at: http://www.OpenBook.com/multiple_crcl_2012.htm Stage 1: Some kidney damage normal GFR Stage 2: Mild kidney damage GFR 60-89 Stage 3: Moderate kidney damage GFR 30-59 Stage 4: Severe kidney damage GFR 15-29 Stage 5: Severe kidney damage GFR <15 ESRD - chronic treatment by dialysis or transplant T. pallidum Abon 11-14-2018 T. pallidum, IgG NONREACTIVE NONREACTIVE [place] Comment on above: T. pallidum antibodies [...] joint. Please correlate with area of pain. [employer] EXAMINATION: THREE X RAY VIEWS OF THE [...] spaces appear well maintained. No bony erosions. Phase FocusMETROPOLITAN SAINT [facility] PS[facility]CH[facility]ATRIC CENTERGenCell [facility] [place] Sagar, Mhpn Incoming Radiant Results From [employer] - 10/15/2018 10:00 AM EDT EXAMINATION: THREE [...] joint. Please correlate with area of pain. [facility] [place] XR ANKLE LEFT (MIN 3 [...] Oh Jr., DO 10/15/18 Final result Normal [facility] XR FOOT LEFT (MIN 3 VIEWS)on [...] Oh Jr., DO 10/15/18 Final result Normal [facility] Basic Metabolic Panlon 10-23 Anion gap 3 molar conc 12 mmol/L Normal 9-[address] [facility] Comment on above: Performed By: #### C BCDIF, BMP ####[place] [address] [address] [phone] Calcium mass conc 9.1 mg/dL Normal 8.5-10.2 [facility] Comment on above: Performed By: #### C BCDIF, BMP ####[place] [address] [address]CF[address], [place] [phone] Chloride molar conc 108 mmol/L High 97-105 [facility] Comment on above: Performed By: #### C BCDIF, BMP ####[place] [address] [address]CF[address], [place] [phone] CO2 molar conc 23 mmol/L Normal 22-[address] [facility] Comment on above: Performed By: #### C BCDIF, BMP ####[place] [address] [address], [place] [phone] Creatinine mass conc 0.94 mg/dL Normal 0.58-0.96 [facility] Comment on above: Performed By: #### C BCDIF, BMP ####[facility]CFort [address], [place] [phone] eGFR- Amer. >60 Normal [facility] Comment on above: Performed By: #### C BCDIF, BMP ####[place] [address] [address], [place] [phone] GFR/1.73 sq M predicted among non-blacks MDRD vol rate/area (S/P/Bld) mL/min/{1.73_m2} Normal [facility] Comment on above: Result Comment: eGFR [...] GFR. Performed By: #### C BCDIF, BMP ####[facility] [place], [place] [phone] Glucose mass conc 81 mg/dL Normal 74-99 [facility] Comment on above: Result Comment: The [place] Diabetes Association (ADA) provides guidance for cutoff [...] Standards of Medical Care in Diabetes 2016, [place] [employer]. Diabetes Care. 2016.39(Suppl 1). Performed By: #### C BCDIF, BMP ####[facility], [place] [phone] Potassium molar conc 3.8 mmol/L Normal 3.7-5.1 [facility] Comment on above: Performed By: #### C BCDIF, BMP ####[facility] [place], [place] [phone] Sodium molar conc 143 mmol/L Normal 136-144 [facility] Comment on above: Performed By: #### C BCDIF, BMP ####[facility]ClevelR[address], [place] [phone] Urea nitrogen mass conc 12 mg/dL Normal 7-[address] [facility] Comment on above: Performed By: #### C BCDIJanes, BMP ####[place] [address] AveClevelR[place], [place] [phone] CBC and Differentialon 10-23 Abs Baso <0.03 Normal <0.[address] [facility] Comment on above: Performed By: #### C BCDIF, BMP ####[place] [address] [address] [phone] Abs [place] 0.48 k/uL Normal <0.[address] [facility] Comment on above: Performed By: #### C BCLEOPOLDO, BMP ####[place] [address] [address] [phone] Abs Neut 2.26 k/uL Normal 1.45-7.[address] [facility] Comment on above: Performed By: #### C BCYESIF, BMP ####[place] [address] [address] [place] [phone] Absolute nRBC <0.01 Normal <0.[address] [facility] Comment on above: Performed By: #### C BCYESIF, BMP ####[place] [address] [address] [place] [phone] Basophils/100 WBC Auto (Bld) 0.4 % Normal [facility] Comment on above: Performed By: #### C BCDIF, BMP ####[place] [address] [address] [place] [phone] DTYPE Auto Diff Normal [facility] Comment on above: Performed By: #### C BCDIF, BMP ####[place] [address] [address], [place] [phone] Eosinophils Auto #/vol (Bld) 0.36 10*3/uL Normal <0.[address] [facility] Comment on above: Performed By: #### C BCDIF, BMP ####[place] [address] [address] [phone] Eosinophils/100 WBC Auto (Bld) 6.8 % Normal [facility] Comment on above: Performed By: #### C BCDIF, BMP ####[place] [address] [address] [place] [phone] Erythrocyte distribution width Auto Ratio (RBC) 12.3 % Normal 11.5-15.[address] [facility] Comment on above: Performed By: #### C BCDIF, BMP ####[place] [address] [address] [place] [phone] Hematocrit Auto Volume Fraction (Bld) 40.2 % Normal 36.0-46.[address] [facility] Comment on above: Performed By: #### C BCDIF, BMP ####[place] [address] [address] [place] [phone] Hemoglobin mass conc (Bld) 13.8 g/dL Normal 11.5-15.[address] [facility] Comment on above: Performed By: #### C BCDIF, BMP ####[place] [address] [address] [place] [phone] Lymphocytes Auto #/vol (Bld) 2.17 10*3/uL Normal 1.00-4.[address] [facility] Comment on above: Performed By: #### C BCDIF, BMP ####[place] [address] [address] [place] [phone] Lymphocytes/100 WBC Auto (Bld) 40.9 % Normal [facility] Comment on above: Performed By: #### C BCDIF, BMP ####[place] [address] [place] [phone] MCH Auto Entitic mass (RBC) 32.5 pG Normal 26.0-34.[address] [facility] Comment on above: Performed By: #### C BCDIF, BMP ####[facility]CF[address], [place] [phone] MCHC Auto mass conc (RBC) 34.3 g/dL Normal 30.5-36.[address] [facility] Comment on above: Performed By: #### C BCDIF, BMP ####[place] [address] [address]ClevelBr[address] [place] [phone] MCV Auto Entitic volume (RBC) 94.8 fL Normal 80.0-100.[address] [facility] Comment on above: Performed By: #### C BCDIF, BMP ####[place] [address] [address] [place] [phone] Monocytes/100 WBC Auto (Bld) 9.1 % Normal [facility] Comment on above: Performed By: #### C BCDIF, BMP ####[place] [address] [address] [place] [phone] Neutrophils/100 WBC Auto (Bld) 42.8 % Normal [facility] Comment on above: Performed By: #### C BCDIF, BMP ####[place] [address] [address] [place] [phone] NRBCs 0.0 /100 WBC Normal [address] [facility] Comment on above: Performed By: #### C BCDIF, BMP ####[place] [address] [address] [place] [phone] Platelet mean volume Auto Entitic volume (Bld) 10.2 fL Normal 9.0-12.[address] [facility] Comment on above: Performed By: #### C BCDIF, BMP ####[place] [address] [address]levelBr[address] [place] [phone] Platelets Auto #/vol (Bld) 189 10*3/uL Normal 150-[address] [facility] Comment on above: Performed By: #### C BCDIF, BMP ####[place] [address] [place], [place] [phone] RBC Auto #/vol (Bld) 4.24 10*6/uL Normal 3.90-5.20 [facility] Comment on above: Performed By: #### C BCDIF, BMP ####[facility] [place], [place] [phone] WBC Auto #/vol (Bld) 5.30 10*3/uL Normal 3.70-11.00 [facility] Comment on above: Performed By: #### C BCDIF, BMP ####[address] [phone] ED NOTEon 10-23-2017 ED NOTE HNO ID: [id number]: Jan (Rn) CHADD Westervice: Emergency MedicineAuthor Type: [...] any questions/concerns the patient may have. Normal [facility] ED PROV NOTEon 10-23-2017 Protein mass conc HNO ID: [id number]: DB Estrellaervice: Emergency MedicineAuthor Type: PhysicianType: ED Provider NotesFiled: 10/24/2017 6:35 PMNote Text:ED Provider NotePatient Name: Rachelnegritaprashanth Hewitt JackyN: [id number] DATE: 10/23/17HistoryPatient presents with:Abscess: R thigh, Hx [...] notes arepresent to corroborate this story. Including [facility], which wasone of the hospitals she states she visited. We have a summary recordfrom [place], but no recent visits were noted regarding [...] all over the skin. These lesions are aysrw2ds-9.5cm. There is one on [place]-medial thigh on [...] Long Kiser MD, PGY 1Nichmindi (Res) Margi, XOSqtngmxb43/20/18 0148Attending NoteI evaluated the patient and personally [...] 10/24/2017Time: 6:33 Giovani Posada MD10/24/17 [address] [facility] Metabolic Panelon 08-16-2017 Creatinine 142.27 mg/dL Invalid Interpretation Code [facility] Otheron 08-16-2017 S. pyogenes Ag IA Ql (Unsp spec) Negative Invalid Interpretation Code [facility] Urinalysis specialist review Interp Cristiano (Unsp spec) WNL Invalid Interpretation Code [facility] S. pyogenes Ag IA Ql (Unsp spec) Negative Invalid Interpretation Code [facility] Urinalysis specialist review Interp Cristiano (Unsp spec) WNL Invalid Interpretation Code [facility] 6-Monoacetylmorphine (6-NAS) Confirm mass conc (U) Negative Invalid Interpretation Code 5 [facility] Acetaminophen mass conc Negative Invalid Interpretation Code 5 [facility] Alpha hydroxyalprazolam mass conc 182.0 ng/mL Invalid Interpretation Code 5 [facility] Alprazolam mass conc 107.0 ng/mL Invalid Interpretation Code 5 [facility] Amitriptyline mass conc 865.0 ng/mL Invalid Interpretation Code 10 [facility] Amphetamine mass conc 62040 Invalid Interpretation Code 25 [facility] Butalbital Ql Negative Invalid Interpretation Code >250 [facility] Negative Invalid Interpretation Code 10 [facility] 182 Invalid Interpretation Code 5 [facility] 107 Invalid Interpretation Code 5 [facility] 865 Invalid Interpretation Code 10 [facility] 80096 Invalid Interpretation Code 25 [facility] 605 Invalid Interpretation Code 10 [facility] 85189 Invalid Interpretation Code 500 [facility] 2186 Invalid Interpretation Code 200 [facility] 83 Invalid Interpretation Code 50 [facility] 5616 Invalid Interpretation Code 25 [facility] 202 Invalid Interpretation Code 10 [facility] 6615 Invalid Interpretation Code 10 [facility] 601 Invalid Interpretation Code 10 [facility] 115079 Invalid Interpretation Code 500 [facility] 0 Invalid Interpretation Code [facility] 5.5 Invalid Interpretation Code [facility] 1.016 Invalid Interpretation Code [facility] 137 Invalid Interpretation Code 5 [facility] 137.0 ng/mL Invalid Interpretation Code 5 [facility] Urinalysison 08-16-2017 HCG.beta subunit ( test) Ql (U) Negative Invalid Interpretation Code [facility] HCG.beta subunit ( test) Ql (U) Negative Invalid Interpretation Code [facility] AEROBIC CULTUREon 06-09-2017 AEROBIC CULTURE SPECIMEN NUMBER: [id number] [facility] Comment on above: Result Comment: AERO BIC CULTURE REPORT STATUS: FINAL SITE/TYPE: RIGHT PALM STAIN RESULT(S): SMALL AMOUNT CELLULAR DEBRIS NO ORGANISMS SEEN CURRENT ANTIBIOTIC(S):NOT STATED CULTURE RESULT(S): NORMAL SKIN ZENY PRESENT VIRAL CULTURE, NON-RESPIRATO Jordi 06-09-2017 VIRAL CULTURE, NON-RESPIRATORY SEE NOTE Normal NEGATIVE [facility] Comment on above: Result Comment: Cult ure negativePerformed by [facility] [place] [address] [email or web address], Cezar Ledbetter MD, Lab. Director EFFECTIVE 04/18/2017 CLINICAL CHEMISTRY PLATFORM CHANGES IN MAIN LABORATORY ARE ASSOCIATED WITH REFERENCE RANGE CHANGES FOR A NUMBER OF ANALYTES. PLEASE REVIEW REFERENCE INTERVALS CAREFULLY P [employer], [employer]. [address] [place], [place] [address]Laboratory Director: Nnamdi Castro M.D.CLIA No. [id number] CAP Accreditation No. [id number] SURG. PATHOLOGY REPORTon SURGICAL PATHOLOGY REPORT [facility] Comment on above: Result Comment: DIAG NOSISRIGHT PALM, SKIN BIOPSY:STRATUM CORNEUM/KERATINACEOUS CRUSTNON-DIAGNOSTIC [id number]/31/2017 Electronically Signed Out by Renetta Partida M.D.NATURE [...] PLEASE REVIEW REFERENCE INTERVALS CAREFULLY P [facility] [employer]. [address] [place] [address] [id number] Director: Nnamdi Castro M.D.CLIA No. [id number] CAP Accreditation No. [id number] AEROBIC CULTUREon 02-22-2017 AEROBIC CULTURE SPECIMEN NUMBER: [id number] [facility] Comment on above: Result Comment: AERO BIC CULTURE REPORT STATUS: FINAL SITE/TYPE: GROIN STAIN RESULT(S): MODERATE AMOUNT PROTEINACEOUS MATERIAL SMALL AMOUNT SQUAMOUS EPITHELIAL CELLS NO ORGANISMS SEEN CURRENT ANTIBIOTIC(S):NOT STATED CULTURE RESULT(S): NORMAL SKIN ZENY PRESENT NO NEISSERIA GONORRHOEAE ISOLATEDPathology [employer], [employer]. [address] [place] [address] [id number] Director: Jacoby Olson M.D.CLIA No. [id number] CAP Accreditation No. [id number] Urinalysison 02-22-2017 HCG.beta subunit ( test) Ql (U) Negative Invalid Interpretation Code [facility] HCG.beta subunit ( test) Ql (U) Negative Invalid Interpretation Code [facility] Metabolic Panelon 01-06-2017 Hemoglobin A1c/Hemoglobin.total mass fraction (Bld) 5.20 % Invalid Interpretation Code < 7 [facility] Hemoglobin A1c/Hemoglobin.total mass fraction (Bld) 5.20 % Invalid Interpretation Code < 7 [facility] Otheron 01-06-2017 2 Invalid Interpretation Code [facility] 2 Invalid Interpretation Code [facility] Vital Signs Date Time Vital Sign Value Performing Clinician Facility 04-18-2024 12:19-0500 Body height 182.9 cm Jaswant Verhoff PA-C Work Phone: [facility] 04-18-2024 12:19-0500 Body mass index (BMI) [Ratio] 28.35 kg/m2 Jaswant Verhoff PA-C Work Phone: [facility] 04-18-2024 12:19-0500 Body weight 94.8 kg Jaswant Verhoff PA-C Work Phone: [facility] 04-18-2024 12:19-0500 Diastolic blood pressure 84 mm[Hg] Jaswant Verhoff PA-C Work Phone: [facility] 04-18-2024 12:19-0500 Heart rate 98 /min Jaswant Verhoff PA-C Work Phone: [facility] 04-18-2024 12:19-0500 Respiratory rate 18 /min Jaswant Verhoff PA-C Work Phone: [facility] 04-18-2024 12:19-0500 SaO2% (BldA) [Mass fraction] 100 % Jaswant Verhoff PA-C Work Phone: [facility] 04-18-2024 12:19-0500 Systolic blood pressure 115 mm[Hg] Jaswant Verhoff PA-C Work Phone: [facility] 01-10-2024 15:19-0500 Diastolic blood pressure 90 mm[Hg] Yumiko Maryenberg [employer] Work Phone: [facility] 01-10-2024 15:19-0500 Heart rate 100 /min Yumiko Nienberg [employer] Work Phone: [facility] 01-10-2024 15:19-0500 Respiratory rate 20 /min Yumiko Maryenberg [employer] Work Phone: [facility] 01-10-2024 15:19-0500 Systolic blood pressure 140 mm[Hg] Yumiko Elizalde [employer] Work Phone: [facility] 10-25-2023 13:00-0400 Body height 182.9 cm Yumiko Elizalde [employer] Work Phone: [facility] 10-25-2023 13:00-0400 Body mass index (BMI) [Ratio] 28.4 kg/m2 Yumiko Elizalde [employer] Work Phone: [facility] 10-25-2023 13:00-0400 Body weight 95 kg Yumiko Elizalde [employer] Work Phone: [facility] 10-25-2023 13:00-0400 Diastolic blood pressure 79 mm[Hg] Yumiko Hernandezenberg [employer] Work Phone: [facility] 10-25-2023 13:00-0400 Heart rate 90 /min Yumiko Elizalde [employer] Work Phone: [facility] 10-25-2023 13:00-0400 Respiratory rate 18 /min Yumiko Elizalde [employer] Work Phone: [facility] 10-25-2023 13:00-0400 SaO2% (BldA) [Mass fraction] 99 % Yumiko Elizalde [employer] Work Phone: [facility] 10-25-2023 13:00-0400 Systolic blood pressure 123 mm[Hg] Yumiko Hernandezenberg [employer] Work Phone: [facility] 10-06-2023 13:03-0400 Body height 189.[address] [facility] 10-06-2023 13:03-0400 Body mass index (BMI) [Ratio] 26.3 kg/m2 [facility] 10-06-2023 13:03-0400 Body weight 94.[address] [facility] 10-06-2023 13:03-0400 Diastolic blood pressure 64 mm[Hg] [facility] 10-06-2023 13:03-0400 Heart rate 111 /min [facility] 10-06-2023 13:03-0400 SaO2% (BldA) [Mass fraction] 98 % [facility] 10-06-2023 13:03-0400 Systolic blood pressure 114 mm[Hg] [facility] 09-30-2023 10:36-0400 Body height 185.4 cm Elayne Luciano MD Work Phone: [facility] 09-30-2023 10:36-0400 Body mass index (BMI) [Ratio] 24.41 kg/m2 Elayne Luciano MD Work Phone: [facility] 09-30-2023 10:36-0400 Body weight 83.92 kg Elayne Luciano MD Work Phone: [facility] 08-26-2023 10:11-0400 Body height 182.9 cm Elayne Luciano MD Work Phone: [facility] 08-26-2023 10:11-0400 Body mass index (BMI) [Ratio] 26.18 kg/m2 Elayne Luciano MD Work Phone: [facility] 08-26-2023 10:11-0400 Body weight 87.54 kg Elayne Luciano MD Work Phone: [facility] 06-15-2023 16:37-0400 Diastolic blood pressure 72 mm[Hg] GENOVEVA Haile Work Phone: [facility] 06-15-2023 16:37-0400 Heart rate 73 /min GENOVEVA Haile Work Phone: [facility] 06-15-2023 16:37-0400 Respiratory rate 16 /min GENOVEVA Haile Work Phone: [facility] 06-15-2023 16:37-0400 SaO2% (BldA) [Mass fraction] 100 % GENOVEVA Haile Work Phone: [facility] 06-15-2023 16:37-0400 Systolic blood pressure 109 mm[Hg] GENOVEVA Haile Work Phone: [facility] 06-15-2023 14:03-0400 Inhaled oxygen flow rate 2 L/min LEGUILLON DEBEADERToño Haile Work Phone: [facility] 06-15-2023 11:36-0400 Body height 180.34 cm LEGUILLON DEBEADERToño Haile Work Phone: [facility] 06-15-2023 11:36-0400 Body temperature 98 [degF] GENOVEVA Haile Work Phone: [facility] 06-15-2023 11:36-0400 Body weight 103.87 kg GENOVEVA Haile Work Phone: [facility] 05-31-2023 13:57-0400 Body height 182.9 cm Renetta Elizalde PA Work Phone: [facility] 05-31-2023 13:57-0400 Body mass index (BMI) [Ratio] 26.18 kg/m2 Renetta Elizalde PA Work Phone: [facility] 05-31-2023 13:57-0400 Body weight 87.54 kg Renetta Elizalde PA Work Phone: [facility] 05-31-2023 13:57-0400 Diastolic blood pressure 87 mm[Hg] Renetta Elizalde PA Work Phone: [employer] 05-31-2023 13:57-0400 Heart rate 104 /min Renetta Elizalde PA Work Phone: [facility] 05-31-2023 13:57-0400 Respiratory rate 18 /min Renetta Elizalde PA Work Phone: [facility] 05-31-2023 13:57-0400 SaO2% (BldA) [Mass fraction] 99 % Renetta ROJAS Work Phone: [facility] 05-31-2023 13:57-0400 Systolic blood pressure 131 mm[Hg] Renetta ROJAS Work Phone: [facility] [employer] [facility] 05-04-2023 11:44-0500 Body height 182.9 cm Jaswant Verhoff PA-C Work Phone: [facility] [employer] 05-04-2023 11:44-0500 Body mass index (BMI) [Ratio] 28.62 kg/m2 Jaswant Verhoff PA-C Work Phone: [facility] 05-04-2023 11:44-0500 Body weight 95.71 kg Jaswant Verhoff PA-C Work Phone[facility] 05-04-2023 11:44-0500 Diastolic blood pressure 103 mm[Hg] Jaswant Verhoff PA-C Work Phone[facility] 05-04-2023 11:44-0500 Heart rate 95 /min Jaswant Verhoff PA-C Work Phone[facility] 05-04-2023 11:44-0500 Respiratory rate 16 /min Jaswant Verhoff PA-C Work Phone[facility] 05-04-2023 11:44-0500 SaO2% (BldA) [Mass fraction] 100 % Jaswant Verhoff PA-C Work Phone[facility] 05-04-2023 11:44-0500 Systolic blood pressure 145 mm[Hg] Jaswant Verhoff PA-C Work Phone: [facility] 03-21-2023 13:30-0500 Body height 188.59 cm Berenice Haile Other [facility] 03-21-2023 13:30-0500 Body mass index (BMI) [Ratio] 27.16 kg/m2 Berenice Haile Other [facility] [employer] Other 03-21-2023 13:30-0500 Body weight 96.62 kg Berenice Haile Other [facility] [employer] Other 03-21-2023 13:30-0500 Body weight 96.[address] [facility] 03-21-2023 13:30-0500 Diastolic blood pressure 80 mm[Hg] Berenice Haile Other [facility] 03-21-2023 13:30-0500 SaO2% (BldA) [Mass fraction] 100 % Berenice Haile Other [facility] [employer] Other 03-21-2023 13:30-0500 Systolic blood pressure 130 mm[Hg] Berenice Haile Other [facility] 02-23-2023 13:49-0500 Diastolic blood pressure 85 mm[Hg] LEGUILLON DEBEADERToño Howellacher Work Phone: [facility] 02-23-2023 13:49-0500 Heart rate 91 /min LEGUILLON DEBEADERToño Howellacher Work Phone: [facility] 02-23-2023 13:49-0500 Respiratory rate 16 /min LEGUILLON DEBEADERToño Howellacher Work Phone: [facility] 02-23-2023 13:49-0500 SaO2% (BldA) [Mass fraction] 100 % LEGUILLON DEBEADERTooñ Howellacher Work Phone: [facility] 02-23-2023 13:49-0500 Systolic blood pressure 128 mm[Hg] GENOVEVA Gracerbacher Work Phone: [facility] 02-23-2023 13:41-0500 Body weight 85.72 kg LEGUILLON DEBEADERToño Howellacher Work Phone: [facility] 12-13-2022 14:40-0400 Body height 188.59 cm Ladarius Scgraciela Other [employer] Other 12-13-2022 14:40-0400 Body mass index (BMI) [Ratio] 27.67 kg/m2 Ladarius Scovanner Other [employer] Other 12-13-2022 14:40-0400 Body weight 98.43 kg Ladarius Scovanner Other [employer] Other 12-13-2022 14:40-0400 Diastolic blood pressure 60 mm[Hg] Ladarius Scovanner Other [employer] Other 12-13-2022 14:40-0400 Systolic blood pressure 109 mm[Hg] Ladarius Scovanner Other [employer] Other 09-22-2022 14:30-0400 Body height 188.59 cm Berenice Haile Other [employer] Other 09-22-2022 14:30-0400 Body mass index (BMI) [Ratio] 27.67 kg/m2 Berenice Haile Other [employer] Other 09-22-2022 14:30-0400 Body weight 98.43 kg Berenice Haile Other [employer] Other 09-22-2022 14:30-0400 Diastolic blood pressure 70 mm[Hg] Berenice Haile Other [employer] Other 09-22-2022 14:30-0400 Systolic blood pressure 118 mm[Hg] Berenice Haile Other [employer] Other 01-19-2022 16:10-0500 Body height 188.59 cm Liz Billingsley Other [employer] Other 01-19-2022 16:10-0500 Body mass index (BMI) [Ratio] 23.72 kg/m2 Liz Billingsley Other [employer] Other 01-19-2022 16:10-0500 Body temperature 98.1 [degF] Liz Billingsley Other [employer] Other 01-19-2022 16:10-0500 Body weight 84.37 kg Liz Billingsley Other [employer] Other 01-19-2022 16:10-0500 Diastolic blood pressure 83 mm[Hg] Liz Billingsley Other [employer] Other 01-19-2022 16:10-0500 Respiratory rate 18 /min Liz Billingsley Other [employer] Other 01-19-2022 16:10-0500 SaO2% (BldA) [Mass fraction] 96 % Liz Billingsley Other [employer] Other 01-19-2022 16:10-0500 Systolic blood pressure 128 mm[Hg] Liz Billingsley Other [employer] Other 03-03-2021 16:00-0500 Body height 188.59 cm Agus Madera Other [employer] Other 03-03-2021 16:00-0500 Body mass index (BMI) [Ratio] 25.12 kg/m2 Agus Madera Other [employer] Other 03-03-2021 16:00-0500 Body weight 89.36 kg Agus Madera Other [employer] Other 03-03-2021 16:00-0500 Diastolic blood pressure 72 mm[Hg] Agus Madera Other [employer] Other 03-03-2021 16:00-0500 Systolic blood pressure 100 mm[Hg] Agus Lafleurack Other [employer] Other 12-27-2020 12:33-0400 Diastolic blood pressure 76 mm[Hg] Sai Hernandez MD Work Phone: [employer] Work Phone: 12-27-2020 12:33-0400 Heart rate 73 /min Sai Hernandez MD Work Phone: [employer] Work Phone: 12-27-2020 12:33-0400 Respiratory rate 14 /min Sai Hernandez MD Work Phone: [employer] Work Phone: 12-27-2020 12:33-0400 Systolic blood pressure 121 mm[Hg] Sai Hernandez MD Work Phone: [employer] Work Phone: 12-27-2020 08:22-0400 SaO2% (BldA) [Mass fraction] 98 % Sai Hernandez MD Work Phone: [employer] Work Phone: 12-27-2020 08:20-0400 Body temperature 97.59 [degF] Sai Hernandez MD Work Phone: [employer] Work Phone: 07-10-2020 15:40-0400 Body height 181.61 cm Rosana Alaniz CNP Work Phone: [facility] Work Phone: 07-10-2020 15:40-0400 Body mass index (BMI) [Ratio] 31.4 kg/m2 Rosana Alaniz CNP Work Phone: [facility] Work Phone: 07-10-2020 15:40-0400 Body surface area Derived from formula 2.24 m2 Rosana Alaniz CNP Work Phone: [facility] Work Phone: 07-10-2020 15:40-0400 Body temperature 95.8 [degF] Rosana Alaniz CNP Work Phone: [facility] Work Phone: 07-10-2020 15:40-0400 Body weight 103.51 kg Rosana Alaniz CNP Work Phone: [facility] Work Phone: 07-10-2020 15:40-0400 Diastolic blood pressure 68 mm[Hg] Rosana Alaniz CNP Work Phone: [facility] Work Phone: 07-10-2020 15:40-0400 Heart rate 88 /min Rosana Alaniz CNP Work Phone: [facility] Work Phone: 07-10-2020 15:40-0400 Respiratory rate 18 /min Rosana Alaniz CNP Work Phone: [facility] Work Phone: 07-10-2020 15:40-0400 SaO2% (BldA) [Mass fraction] 99 % Rosana Alaniz CNP Work Phone: [facility] Work Phone: 07-10-2020 15:40-0400 Systolic blood pressure 98 mm[Hg] Rosana Alaniz [facility] Work Phone: [facility] Work Phone: 03-13-2020 11:26-0500 BMI (Body Mass Index) 33.7 kg/m2 [facility] Work Phone: 03-13-2020 11:26-0500 Body weight 111.13 kg [facility] Work Phone: 03-13-2020 11:26-0500 BSA (Body Surface Area) 2.31 m2 [facility] Work Phone: 03-13-2020 11:26-0500 Height 181.61 cm [facility] Work Phone: 05-24-2019 13:37-0400 BP Diastolic 74 mm[Hg] [facility] Work Phone: 05-24-2019 13:37-0400 BP Systolic 110 mm[Hg] [facility] Work Phone: 05-24-2019 13:27-0400 BMI (Body Mass Index) 33.7 kg/m2 [facility] Work Phone: 05-24-2019 13:27-0400 Body Temperature 96.5 [degF] [facility] Work Phone: 05-24-2019 13:27-0400 Body weight 111.13 kg [facility] Work Phone: 05-24-2019 13:27-0400 BSA (Body Surface Area) 2.31 m2 [facility] Work Phone: 05-24-2019 13:27-0400 Height 181.61 cm [facility] Work Phone: 03-08-2019 13:42-0500 BMI (Body Mass Index) 32.4 kg/m2 [facility] Work Phone: 03-08-2019 13:42-0500 Body weight 106.78 kg [facility] Work Phone: 03-08-2019 13:42-0500 BP Diastolic 78 mm[Hg] [facility] Work Phone: 03-08-2019 13:42-0500 BP Systolic 90 mm[Hg] [facility] Work Phone: 03-08-2019 13:42-0500 BSA (Body Surface Area) 2.27 m2 [facility] Work Phone: 03-08-2019 13:42-0500 Height 181.61 cm [facility] Work Phone: 03-08-2019 13:42-0500 Pulse (Heart Rate) 89 /min [facility] Work Phone: 03-08-2019 13:42-0500 Pulse Oximetry 98 % [facility] Work Phone: 02-20-2019 13:50-0500 BMI (Body Mass Index) 34.5 kg/m2 [facility] Work Phone: 02-20-2019 13:50-0500 Body Temperature 99.1 [degF] [facility] Work Phone: 02-20-2019 13:50-0500 Body weight 113.94 kg [facility] Work Phone: 02-20-2019 13:50-0500 BP Diastolic 70 mm[Hg] [facility] Work Phone: 02-20-2019 13:50-0500 BP Systolic 110 mm[Hg] [facility] Work Phone: 02-20-2019 13:50-0500 BSA (Body Surface Area) 2.34 m2 [facility] Work Phone: 02-20-2019 13:50-0500 Height 181.61 cm [facility] Work Phone: 02-20-2019 13:50-0500 Pulse (Heart Rate) 99 /min [facility] Work Phone: 02-20-2019 13:50-0500 Pulse Oximetry 100 % [facility] Work Phone: 02-20-2019 13:50-0500 Respiratory Rate 18 /min [facility] Work Phone: 01-29-2019 15:45-0500 BP Diastolic 59 mm[Hg] [place], [place] 01-29-2019 15:45-0500 BP Systolic 94 mm[Hg] [place] 01-29-2019 15:45-0500 Pulse (Heart Rate) 69 /min [place], [place] 01-29-2019 15:45-0500 Pulse Oximetry 98 % [place] 01-29-2019 15:45-0500 Respiratory Rate 13 /min [place], [place] 01-29-2019 12:25-0500 BMI (Body Mass Index) 29.03 kg/m2 [place] 01-29-2019 12:25-0500 Body Temperature 97.39 [degF] [place] 01-29-2019 12:25-0500 Body weight 99.79 kg [place], [place] 01-29-2019 12:25-0500 Height 185.4 cm [place], [place] 2019 14:08-0500 Body Temperature 98.1 [degF] Sourav Baird [facility], [place] 2019 14:08-0500 BP Diastolic 86 mm[Hg] [facility] [place] [facility] 14:08-0500 BP Systolic 115 mm[Hg] [facility] [place] [facility] 14:08-0500 Pulse (Heart Rate) 95 /min [facility] [place] [facility] 14:08-0500 Pulse Oximetry 99 % [facility] [place] [facility] 14:08-0500 Respiratory Rate 16 /min [facility] [place] 01-04-2019 08:20-0400 BMI (Body Mass Index) 31.8 kg/m2 [facility] Work Phone: 01-04-2019 08:20-0400 Body Temperature 96.1 [degF] [facility] Work Phone: 01-04-2019 08:20-0400 Body weight 104.78 kg [facility] Work Phone: 01-04-2019 08:20-0400 BP Diastolic 80 mm[Hg] [facility] Work Phone: 01-04-2019 08:20-0400 BP Systolic 106 mm[Hg] [facility] Work Phone: 01-04-2019 08:20-0400 BSA (Body Surface Area) 2.25 m2 [facility] Work Phone: 01-04-2019 08:20-0400 Height 181.61 cm [facility] Work Phone: 01-04-2019 08:20-0400 Pulse (Heart Rate) 69 /min [facility] Work Phone: 01-04-2019 08:20-0400 Pulse Oximetry 98 % [facility] Work Phone: 01-04-2019 08:20-0400 Respiratory Rate 18 /min [facility] Work Phone: 01-03-2019 18:41-0400 BP Diastolic 74 mm[Hg] Elayne Nazario [facility], [place] 01-03-2019 18:41-0400 BP Systolic 90 mm[Hg] Elayne Nazario [facility] [place] 01-03-2019 18:40-0400 Pulse Oximetry 95 % Elayne Nazario [facility] [place] 01-03-2019 13:42-0400 BMI (Body Mass Index) 31.33 kg/m2 Elayne Nazario [facility], [place] 01-03-2019 13:42-0400 Body Temperature 98.01 [degF] Elayne Nazario [facility], [place] 01-03-2019 13:42-0400 Body weight 104.78 kg Elayne Nazario [facility], [place] 01-03-2019 13:42-0400 Pulse (Heart Rate) 71 /min [facility] [place] 01-03-2019 13:42-0400 Respiratory Rate 16 /min Elayne Nazario [facility], [place] 11-20-2018 11:37-0400 BMI (Body Mass Index) 34.8 kg/m2 [facility] Work Phone: 11-20-2018 11:37-0400 Body Temperature 95.4 [degF] [facility] Work Phone: 11-20-2018 11:37-0400 Body weight 114.94 kg [facility] Work Phone: 11-20-2018 11:37-0400 BP Diastolic 80 mm[Hg] [facility] Work Phone: 11-20-2018 11:37-0400 BP Systolic 104 mm[Hg] [facility] Work Phone: 11-20-2018 11:37-0400 BSA (Body Surface Area) 2.34 m2 [facility] Work Phone: 11-20-2018 11:37-0400 Height 181.61 cm [facility] Work Phone: 11-20-2018 11:37-0400 Pulse (Heart Rate) 95 /min [facility] Work Phone: 11-20-2018 11:37-0400 Pulse Oximetry 98 % [facility] Work Phone: 11-20-2018 11:37-0400 Respiratory Rate 18 /min [facility] Work Phone: 11-14-2018 16:21-0400 BMI (Body Mass Index) 34.18 kg/m2 [facility], [place] 11-14-2018 16:21-0400 Body Temperature 99.19 [degF] [facility], [place] 11-14-2018 16:21-0400 Body weight 114.31 kg [facility] , [place] 11-14-2018 16:21-0400 BP Diastolic 63 mm[Hg] [facility] , [place] 11-14-2018 16:21-0400 BP Systolic 108 mm[Hg] [facility] , [place] 11-14-2018 16:21-0400 Pulse (Heart Rate) 87 /min [facility] [place] 11-14-2018 16:21-0400 Pulse Oximetry 99 % [facility] , [place] 11-14-2018 16:21-0400 Respiratory Rate 19 /min [facility], [place] 10-15-2018 09:11-0400 BMI (Body Mass Index) 30.11 kg/m2 [facility], [place] 10-15-2018 09:11-0400 Body Temperature 97.5 [degF] [facility], [place] 10-15-2018 09:11-0400 Body weight 100.7 kg Jennifer Whaley [facility] , [place] 10-15-2018 09:11-0400 BP Diastolic 80 mm[Hg] Jennifer Whaley [facility] , [place] 10-15-2018 09:11-0400 BP Systolic 122 mm[Hg] [facility] [place] 10-15-2018 09:11-0400 Height 182.9 cm Jennifer [facility] , [place] 10-15-2018 09:11-0400 Pulse (Heart Rate) 91 /min [facility] [place] 10-15-2018 09:11-0400 Pulse Oximetry 100 % Jennifer [facility] , [place] 10-15-2018 09:11-0400 [facility] Rate 16 /[facility] [place] 06-15-2018 15:01-0400 Pulse (Heart Rate) 103 /min [facility] Work Phone: 06-15-2018 15:01-0400 Pulse Oximetry 98 % [facility] Work Phone: 06-15-2018 14:58-0400 BMI (Body Mass Index) 33.7 kg/m2 [facility] Work Phone: 06-15-2018 14:58-0400 Body Temperature 97.1 [degF] [facility] Work Phone: 06-15-2018 14:58-0400 Body weight 111.31 kg [facility] Work Phone: 06-15-2018 14:58-0400 BP Diastolic 86 mm[Hg] [facility] Work Phone: 06-15-2018 14:58-0400 BP Systolic 126 mm[Hg] [facility] Work Phone: 06-15-2018 14:58-0400 BSA (Body Surface Area) 2.31 m2 [facility] Work Phone: 06-15-2018 14:58-0400 Height 181.61 cm Rosana Katty [facility] Work Phone: 06-15-2018 14:58-0400 Pulse (Heart Rate) 18 /min Rosana Katty [facility] Work Phone: 06-15-2018 14:58-0400 Respiratory Rate 18 /min [facility] Work Phone: 02-16-2018 13:28-0500 BMI (Body Mass Index) 33.99 kg/m2 [facility] 02-16-2018 13:28-0500 Body Temperature 98.3 [degF] [facility] 02-16-2018 13:28-0500 BP Diastolic 65 mm[Hg] [facility] 02-16-2018 13:28-0500 BP Systolic 92 mm[Hg] [facility] 02-16-2018 13:28-0500 BSA (Body Surface Area) 2.38 m2 [facility] 02-16-2018 13:28-0500 Height 181.61 cm [facility] 02-16-2018 13:28-0500 Pulse (Heart Rate) 110 /min Rosana Katty [facility] 02-16-2018 13:28-0500 Pulse Oximetry 99 % [facility] 02-16-2018 13:28-0500 Respiratory Rate 18 /min [facility] 02-16-2018 13:28-0500 Weight 112.12 kg [facility] 02-16-2018 11:28-0500 BMI (Body Mass Index) 34 kg/m2 [facility] Work Phone: 02-16-2018 11:28-0500 Body Temperature 98.3 [degF] [facility] Work Phone: 02-16-2018 11:28-0500 Body weight 112.04 kg [facility] Work Phone: 02-16-2018 11:28-0500 Body weight 112.12 kg [facility] Work Phone: 02-16-2018 11:28-0500 BP Diastolic 65 mm[Hg] [facility] Work Phone: 02-16-2018 11:28-0500 BP Systolic 92 mm[Hg] [facility] Work Phone: 02-16-2018 11:28-0500 BSA (Body Surface Area) 2.32 m2 [facility] Work Phone: 02-16-2018 11:28-0500 Height 181.61 cm [facility] Work Phone: 02-16-2018 11:28-0500 Pulse (Heart Rate) 110 /min [facility] Work Phone: 02-16-2018 11:28-0500 Respiratory Rate 18 /min [facility] Work Phone: 11-24-2017 14:14-0400 BMI (Body Mass Index) 32.32 kg/m2 [facility] 11-24-2017 14:14-0400 Body Temperature 97.4 [degF] [facility] 11-24-2017 14:14-0400 BP Diastolic 80 mm[Hg] [facility] 11-24-2017 14:14-0400 BP Systolic 126 mm[Hg] [facility] 11-24-2017 14:14-0400 BSA (Body Surface Area) 2.32 m2 [facility] 11-24-2017 14:14-0400 Height 181.61 cm [facility] 11-24-2017 14:14-0400 Pulse (Heart Rate) 104 /min [facility] 11-24-2017 14:14-0400 Pulse Oximetry 97 % [facility] 11-24-2017 14:14-0400 Respiratory Rate 20 /min [facility] 11-24-2017 14:14-0400 Weight 106.6 kg [facility] 11-24-2017 13:14-0400 BMI (Body Mass Index) 32.32 kg/m2 [facility] 11-24-2017 13:14-0400 Body Temperature 97.4 [degF] [facility] 11-24-2017 13:14-0400 BP Diastolic 80 mm[Hg] [facility] 11-24-2017 13:14-0400 BP Systolic 126 mm[Hg] [facility] 11-24-2017 13:14-0400 BSA (Body Surface Area) 2.32 m2 [facility] 11-24-2017 13:14-0400 Height 181.61 cm [facility] 11-24-2017 13:14-0400 Pulse (Heart Rate) 104 /min [facility] 11-24-2017 13:14-0400 Pulse Oximetry 97 % [facility] 11-24-2017 13:14-0400 Respiratory Rate 20 /min [facility] 11-24-2017 13:14-0400 Weight 106.6 kg [facility] 11-24-2017 11:14-0400 BMI (Body Mass Index) 32.3 kg/m2 [facility] Work Phone: 11-24-2017 11:14-0400 Body Temperature 97.4 [degF] [facility] Work Phone: 11-24-2017 11:14-0400 Body weight 106.6 kg [facility] Work Phone: 11-24-2017 11:14-0400 BP Diastolic 80 mm[Hg] [facility] Work Phone: 11-24-2017 11:14-0400 BP Systolic 126 mm[Hg] [facility] Work Phone: 11-24-2017 11:14-0400 BSA (Body Surface Area) 2.27 m2 [facility] Work Phone: 11-24-2017 11:14-0400 Height 181.61 cm [facility] Work Phone: 11-24-2017 11:14-0400 Pulse (Heart Rate) 104 /min [facility] Work Phone: 11-24-2017 11:14-0400 Respiratory Rate 20 /min [facility] Work Phone: 08-16-2017 14:15-0400 BMI (Body Mass Index) 30.7 kg/m2 [facility] 08-16-2017 14:15-0400 Body Temperature 97.2 [degF] [facility] 08-16-2017 14:15-0400 BP Diastolic 72 mm[Hg] [facility] 08-16-2017 14:15-0400 BP Systolic 118 mm[Hg] [facility] 08-16-2017 14:15-0400 BSA (Body Surface Area) 2.26 m2 [facility] 08-16-2017 14:15-0400 Height 181.61 cm [facility] 08-16-2017 14:15-0400 Pulse (Heart Rate) 88 /min [facility] 08-16-2017 14:15-0400 Pulse Oximetry 100 % [facility] 08-16-2017 14:15-0400 Respiratory Rate 18 /min [facility] 08-16-2017 14:15-0400 Weight 101.27 kg [facility] 08-16-2017 13:15-0400 BMI (Body Mass Index) 30.7 kg/m2 [facility] 08-16-2017 13:15-0400 Body Temperature 97.2 [degF] [facility] 08-16-2017 13:15-0400 BP Diastolic 72 mm[Hg] [facility] 08-16-2017 13:15-0400 BP Systolic 118 mm[Hg] [facility] 08-16-2017 13:15-0400 BSA (Body Surface Area) 2.26 m2 [facility] 08-16-2017 13:15-0400 Height 181.61 cm [facility] 08-16-2017 13:15-0400 Pulse (Heart Rate) 88 /min [facility] 08-16-2017 13:15-0400 Pulse Oximetry 100 % [facility] 08-16-2017 13:15-0400 Respiratory Rate 18 /min [facility] 08-16-2017 13:15-0400 Weight 101.27 kg [facility] 05-26-2017 14:14-0400 BMI (Body Mass Index) 29.57 kg/m2 [facility] 05-26-2017 14:14-0400 Body Temperature 97.5 [degF] [facility] 05-26-2017 14:14-0400 BP Diastolic 72 mm[Hg] [facility] 05-26-2017 14:14-0400 BP Systolic 118 mm[Hg] [facility] 05-26-2017 14:14-0400 BSA (Body Surface Area) 2.22 m2 [facility] 05-26-2017 14:14-0400 Height 181.61 cm [facility] 05-26-2017 14:14-0400 Pulse (Heart Rate) 100 /min [facility] 05-26-2017 14:14-0400 Pulse Oximetry 98 % [facility] 05-26-2017 14:14-0400 Respiratory Rate 20 /min [facility] 05-26-2017 14:14-0400 Weight 97.52 kg [facility] 05-26-2017 13:14-0400 BMI (Body Mass Index) 29.57 kg/m2 [facility] 05-26-2017 13:14-0400 Body Temperature 97.5 [degF] [facility] 05-26-2017 13:14-0400 BP Diastolic 72 mm[Hg] [facility] 05-26-2017 13:14-0400 BP Systolic 118 mm[Hg] [facility] 05-26-2017 13:14-0400 BSA (Body Surface Area) 2.22 m2 [facility] 05-26-2017 13:14-0400 Height 181.61 cm [facility] 05-26-2017 13:14-0400 Pulse (Heart Rate) 100 /min [facility] 05-26-2017 13:14-0400 Pulse Oximetry 98 % [facility] 05-26-2017 13:14-0400 Respiratory Rate 20 /min [facility] 05-26-2017 13:14-0400 Weight 97.52 kg [facility] 03-29-2017 15:24-0500 BMI (Body Mass Index) 27.69 kg/m2 [facility] 03-29-2017 15:24-0500 Body Temperature 97.5 [degF] [facility] 03-29-2017 15:24-0500 BP Diastolic 80 mm[Hg] [facility] 03-29-2017 15:24-0500 BP Systolic 109 mm[Hg] [facility] 03-29-2017 15:24-0500 BSA (Body Surface Area) 2.15 m2 [facility] 03-29-2017 15:24-0500 Height 181.61 cm [facility] 03-29-2017 15:24-0500 Pulse (Heart Rate) 87 /min [facility] 03-29-2017 15:24-0500 Pulse Oximetry 98 % [facility] 03-29-2017 15:24-0500 Respiratory Rate 18 /min [facility] 03-29-2017 15:24-0500 Weight 91.32 kg [facility] 03-29-2017 14:24-0500 BMI (Body Mass Index) 27.69 kg/m2 [facility] 03-29-2017 14:24-0500 Body Temperature 97.5 [degF] [facility] 03-29-2017 14:24-0500 BP Diastolic 80 mm[Hg] [facility] 03-29-2017 14:24-0500 BP Systolic 109 mm[Hg] [facility] 03-29-2017 14:24-0500 BSA (Body Surface Area) 2.15 m2 [facility] 03-29-2017 14:24-0500 Height 181.61 cm [facility] 03-29-2017 14:24-0500 P[facility] (Heart Rate) 87 /min [facility] 03-29-2017 14:24-0500 Pulse Oximetry 98 % [facility] 03-29-2017 14:24-0500 Respiratory Rate 18 /min [facility] 03-29-2017 14:24-0500 Weight 91.32 kg [facility] 02-22-2017 17:03-0500 BMI (Body Mass Index) 26.41 kg/m2 [facility] 02-22-2017 17:03-0500 Body Temperature 98 [degF] [facility] 02-22-2017 17:03-0500 BP Diastolic 87 mm[Hg] [facility] 02-22-2017 17:03-0500 BP Systolic 130 mm[Hg] [facility] 02-22-2017 17:03-0500 BSA (Body Surface Area) 2.1 m2 [facility] 02-22-2017 17:03-0500 Height 181.61 cm [facility] 02-22-2017 17:03-0500 Pulse (Heart Rate) 88 /min [facility] 02-22-2017 17:03-0500 Pulse Oximetry 100 % [facility] 02-22-2017 17:03-0500 Respiratory Rate 20 /min [facility] 02-22-2017 17:03-0500 Weight 87.09 kg [facility] 02-22-2017 16:03-0500 BMI (Body Mass Index) 26.41 kg/m2 [facility] 02-22-2017 16:03-0500 Body Temperature 98 [degF] [facility] 02-22-2017 16:03-0500 BP Diastolic 87 mm[Hg] [facility] 02-22-2017 16:03-0500 BP Systolic 130 mm[Hg] [facility] 02-22-2017 16:03-0500 BSA (Body Surface Area) 2.1 m2 [facility] 02-22-2017 16:03-0500 Height 181.61 cm [facility] 02-22-2017 16:03-0500 Pulse (Heart Rate) 88 /min [facility] 02-22-2017 16:03-0500 Pulse Oximetry 100 % [facility] 02-22-2017 16:03-0500 Respiratory Rate 20 /min [facility] 02-22-2017 16:03-0500 Weight 87.09 kg [facility] 02-01-2017 16:59-0500 BMI (Body Mass Index) 27.23 kg/m2 [facility] 02-01-2017 16:59-0500 Body Temperature 98.1 [degF] [facility] 02-01-2017 16:59-0500 BP Diastolic 81 mm[Hg] [facility] 02-01-2017 16:59-0500 BP Systolic 132 mm[Hg] [facility] 02-01-2017 16:59-0500 BSA (Body Surface Area) 2.13 m2 [facility] 02-01-2017 16:59-0500 Height 181.61 cm [facility] 02-01-2017 16:59-0500 Pulse (Heart Rate) 83 /min [facility] 02-01-2017 16:59-0500 Pulse Oximetry 94 % [facility] 02-01-2017 16:59-0500 Respiratory Rate 18 /min [facility] 02-01-2017 16:59-0500 Weight 89.81 kg [facility] 02-01-2017 15:59-0500 BMI (Body Mass Index) 27.23 kg/m2 [facility] 02-01-2017 15:59-0500 Body Temperature 98.1 [degF] [facility] 02-01-2017 15:59-0500 BP Diastolic 81 mm[Hg] [facility] 02-01-2017 15:59-0500 BP Systolic 132 mm[Hg] [facility] 02-01-2017 15:59-0500 BSA (Body Surface Area) 2.13 m2 Rosana Katty [facility] 02-01-2017 15:59-0500 Height 181.61 cm [facility] 02-01-2017 15:59-0500 Pulse (Heart Rate) 83 /min [facility] 02-01-2017 15:59-0500 Pulse Oximetry 94 % [facility] 02-01-2017 15:59-0500 Respiratory Rate 18 /min [facility] 02-01-2017 15:59-0500 Weight 89.81 kg [facility] 01-06-2017 17:29-0400 BMI (Body Mass Index) 26.41 kg/m2 [facility] 01-06-2017 17:29-0400 Body Temperature 97.9 [degF] [facility] 01-06-2017 17:29-0400 BP Diastolic 81 mm[Hg] [facility] 01-06-2017 17:29-0400 BP Systolic 130 mm[Hg] [facility] 01-06-2017 17:29-0400 BSA (Body Surface Area) 2.1 m2 [facility] 01-06-2017 17:29-0400 Height 181.61 cm [facility] 01-06-2017 17:29-0400 [facility] ([facility] Rate) 90 /[facility] 01-06-2017 17:29-0400 Pulse Oximetry 98 % [facility] 01-06-2017 17:29-0400 Respiratory Rate 18 /min [facility] 01-06-2017 17:29-0400 Weight 87.09 kg [facility] 01-06-2017 16:29-0400 BMI (Body Mass Index) 26.41 kg/m2 [facility] 01-06-2017 16:29-0400 Body Temperature 97.9 [degF] [facility] 01-06-2017 16:29-0400 BP Diastolic 81 mm[Hg] [facility] 01-06-2017 16:29-0400 BP Systolic 130 mm[Hg] [facility] 01-06-2017 16:29-0400 BSA (Body Surface Area) 2.1 m2 [facility] 01-06-2017 16:29-0400 Height 181.61 cm [facility] 01-06-2017 16:29-0400 Pulse (Heart Rate) 90 /min [facility] 01-06-2017 16:29-0400 Pulse Oximetry 98 % [facility] 01-06-2017 16:29-0400 Respiratory Rate 18 /min [facility] 01-06-2017 16:29-0400 Weight 87.09 kg [facility] 12-09-2016 17:31-0400 BMI (Body Mass Index) 26.97 kg/m2 [facility] 12-09-2016 17:31-0400 Body Temperature 99 [degF] [facility] 12-09-2016 17:31-0400 BP Diastolic 62 mm[Hg] [facility] 12-09-2016 17:31-0400 BP Systolic 98 mm[Hg] [facility] 12-09-2016 17:31-0400 BSA (Body Surface Area) 2.12 m2 [facility] 12-09-2016 17:31-0400 Height 181.61 cm [facility] 12-09-2016 17:31-0400 Pulse (Heart Rate) 110 /min [facility] 12-09-2016 17:31-0400 Pulse Oximetry 98 % [facility] 12-09-2016 17:31-0400 Respiratory Rate 18 /min [facility] 12-09-2016 17:31-0400 Weight 88.96 kg [facility] 12-09-2016 16:31-0400 BMI (Body Mass Index) 26.97 kg/m2 [facility] 12-09-2016 16:31-0400 Body Temperature 99 [degF] [facility] 12-09-2016 16:31-0400 BP Diastolic 62 mm[Hg] [facility] 12-09-2016 16:31-0400 BP Systolic 98 mm[Hg] [facility] 10-05-2017 16:31-0400 BSA (Body Surface Area) 2.12 m2 [facility] 12-09-2016 16:31-0400 Height 181.61 cm [facility] 12-09-2016 16:31-0400 Pulse (Heart Rate) 110 /min [facility] 12-09-2016 16:31-0400 Pulse Oximetry 98 % [facility] 12-09-2016 16:31-0400 Respiratory Rate 18 /min [facility] 12-09-2016 16:31-0400 Weight 88.96 kg [facility] Encounters Encounter Date Encounter Type Care Provider Facility Start: 04-25-2024 End: 04-27-2024 Clinisync Result Encounter Blake Anmol DO Work Phone: [facility] Unsolicited Start: 04-25-2024 End: 04-27-2024 Clinisync Result Encounter Blake Anmol DO Work Phone: [facility] Unsolicited Start: 04-18-2024 End: 04-18-2024 Office outpatient visit 25 minutes Jaswant Hussein PA-C Work Phone: [facility] Comment on above: Stenosis of cervical spine (Primary Dx) Start: 04-18-2024 End: 04-18-2024 ambulatory JASWANT HUSSEIN [facility] Start: 03-26-2024 End: 03-27-2024 Clinisync Result Encounter Blake Anmol DO Work Phone: [facility] External [facility] Unsolicited Start: 03-26-2024 End: 03-27-2024 Clinisync Result Encounter Blake Anmol DO Work Phone: [facility] Unsolicited Start: 03-16-2024 End: 03-16-2024 ambulatory ANUP BUTLER [facility] Start: 03-13-2024 End: 03-13-2024 Clinisync Result [...] Start: 02-01-2024 End: 02-01-2024 [facility] Start: 01-26-2024 End: 01-26-2024 Refill Rachel Kan RN [facility] Comment on above: Chronic midline low back pain, unspecified whether sciatica present (Primary Dx); Intervertebral disc stenosis of neural canal of cervical region; DDD (degenerative disc disease), lumbosacral Start: 01-23-2024 End: 01-31-2024 Telephone encounter Yumiko Elizalde APRN-[employer] Work Phone: [facility] Start: 01-10-2024 End: 01-10-2024 ambulatory [facility] Start: 01-10-2024 End: 01-10-2024 Office outpatient visit 25 minutes Yumiko Elizalde LEGUILLON DEBEADER[employer] Work Phone: [facility] Comment on above: Lumbar post-laminect yaritza syndrome (Primary Dx) Start: 12-26-2023 End: 12-28-2023 Clinisync Result Encounter Blake Anmol DO Work Phone: [facility] External [facility] Unsolicited Start: 12-26-2023 End: 12-28-2023 Clinisync Result Encounter Blake Anmol DO Work Phone: [facility] Unsolicited Start: 12-23-2023 End: 12-23-2023 ambulatory [facility] Start: 12-23-2023 End: 12-23-2023 ambulatory [facility] Start: 12-06-2023 ambulatory Johan Zoe Facility:[facility] Start: 11-28-2023 End: 12-02-2023 Telephone encounter Kacy Dao RN [facility] Start: 11-25-2023 End: 11-25-2023 ambulatory [facility] Start: 11-25-2023 End: 11-27-2023 Clinisync Result Encounter Blake Anmol DO Work Phone: [facility] Unsolicited Start: 11-25-2023 End: 11-27-2023 Clinisync Result Encounter Blkae Anmol DO Work Phone: [facility] Unsolicited Start: 11-25-2023 End: 11-25-2023 [facility] Start: 10-26-2023 End: 10-28-2023 Clinisync Result Encounter Blake Anmol DO Work Phone: [facility] Unsolicited Start: 10-26-2023 End: 10-28-2023 Clinisync Result Encounter Blake Anmol DO Work Phone: [facility] Unsolicited Start: 10-25-2023 End: 10-25-2023 ambulatory YUMIKO ELIZALDE [facility] Start: 10-25-2023 End: 10-25-2023 Office outpatient visit 25 minutes Yumiko Elizalde LEGUILLON [employer] Work Phone: [facility] Comment on above: Intervertebral disc stenosis of neural canal of cervical region (Primary Dx) Start: 10-06-2023 End: 10-06-2023 ambulatory [facility] Work Phone: Start: 10-06-2023 End: 10-06-2023 Patient encounter procedure [facility] Work Phone: Start: 09-30-2023 End: 09-30-2023 Office outpatient visit 15 minutes Elayne Luciano MD [facility] Comment on above: DDD (degenerative [...] 09-18-2023 Refill Gino Nicolas MD Work Phone[facility] Start: 09-15-2023 End: 09-15-2023 ambulatory [facility] Start: 08-26-2023 End: 08-26-2023 Office outpatient visit 25 minutes Elayne Luciano MD Work Phone: [facility] Comment on above: Neck pain (Primary D x); Low back pain, unspecified back pain laterality, unspecified chronicity, unspecified whether sciatica present Start: 08-26-2023 End: 08-26-2023 ambulatory [facility] Start: 08-20-2023 End: 08-20-2023 [facility] Start: 08-19-2023 End: 08-19-2023 ambulatory ANUP BUTLER [facility] Start: 08-15-2023 Non-patient / Non-visit [facility] Work Phone: Start: 08-15-2023 End: 08-15-2023 ambulatory BLAKE COREA Not Available Start: 08-10-2023 End: 08-10-2023 Telephone encounter Joselin Gabrielroe RMA [facility] Start: 06-27-2023 End: 07-04-2023 Telephone encounter Lorena Gomez CNA [facility] Start: 06-16-2023 End: 06-21-2023 Telephone encounter Rachel Kan RN [facility] Start: 06-15-2023 End: 06-15-2023 Emergency department patient visit GENOVEVA Haile Work Phone: [facility] Work Phone: Start: 06-01-2023 End: 06-02-2023 Emergency department patient visit KYLAH AMADO [facility] Start: 05-31-2023 Jason Nicolas MD Work Phone: [facility] Start: 05-31-2023 End: 05-31-2023 Office outpatient visit 15 minutes Renetta ROJAS Work Phone: [facility] Comment on above: Lumbar radiculopathy (Primary Dx) Start: 05-31-2023 End: 05-31-2023 ambulatory RENETTA ELIZALDE [facility] Start: 05-26-2023 End: 05-26-2023 ambulatory [facility] Work Phone: Start: 05-26-2023 End: 05-26-[address] [facility] Work Phone: Start: 05-14-2023 End: 05-14-2023 ambulatory LAITH BECK [facility] Start: 05-13-2023 End: 05-13-2023 ambulatory ANUP BUTLER [facility] Start: 05-10-2023 Telephone encounter Ana Pichardo [facility] Start: 05-04-2023 End: 05-04-2023 ambulatory JASWANT HUSSEIN [facility] Start: 05-04-2023 End: 05-04-2023 Office outpatient visit 25 minutes Renetta Elizalde PA Work Phone: [facility] Comment on above: Lumbar radiculopathy (Primary Dx); Spinal stenosis of lumbar region with neurogenic claudication Start: 04-28-2023 Non-patient / Non-visit [facility] Work Phone: Start: 04-27-2023 Refill Cady Sifuentes [facility] Start: 04-21-2023 Telephone encounter Saida Valiente [facility] Start: 04-19-2023 Non-patient / Non-visit [facility] Work Phone: Start: 04-18-2023 End: 04-18-2023 ambulatory Berenice Haile Other [facility] [employer] Other Start: 04-18-2023 Telephone encounter Berenice Marsh [facility] Start: 04-11-2023 Clinisync Result Encounter Blake Anmol DO Work Phone: [facility] External [facility] Unsolicited Start: 04-11-2023 External Result Encounter Blake Anmol DO Work Phone: [facility] Unsolicited Start: 04-11-2023 External Result Encounter Blake Anmol DO Work Phone: [facility] External Department Unsolicited Start: 04-11-2023 End: 04-11-2023 ambulatory BLAKE ANMOL Not Available Start: 03-30-2023 Orders Only Johana hansen [employer] DEBEAD[employer] Work Phone: [facility] Comment on above: Bilateral leg pain ( Primary Dx); Herniated lumbar intervertebral disc; S/P lumbar fusion; Lumbar foraminal stenosis Start: 03-21-2023 End: 03-21-2023 ambulatory Berenice Carolinecasey Other [employer] Other Start: 03-21-2023 Office outpatient vi sit 25 minutes Berenice Lazara [facility] Start: 03-21-2023 End: 03-21-2023 Patient encounter procedure [facility] Work Phone: Start: 03-17-2023 End: 03-17-2023 ambulatory Berenice Gracemaryurisheela Other [employer] Other Start: 03-17-2023 Telephone encounter Berenice Salma her [facility] Start: 03-16-2023 Orders Only Johana hansen [employer] DE[employer] Work Phone: [facility] Comment on above: S/P lumbar fusion Start: 03-02-2023 ambulatory BERENICE HAILE [facility] Start: 02-23-2023 End: 02-23-2023 Patient encounter procedure LEGUILLON DEBEADER Berenice Lazara Work Phone: [facility] [place] Work Phone: Start: 02-23-2023 End: 02-23-2023 ambulatory LEGUILLON DEBEADER Berenice Lazara Work Phone: [facility] Work Phone: Start: 01-17-2023 End: 01-17-2023 ambulatory RENETTA PASTOR Not Available Start: 12-22-2022 End: 12-22-2022 ambulatory Ladarius Pitts Other [employer] Other Start: 12-22-2022 Telephone encounter Ladarius Marrero [employer] Start: 12-13-2022 End: 12-13-2022 Patient encounter procedure PHYSICIAN FELICE RIVERA [facility] [place] Work Phone: Start: 12-13-2022 End: 12-13-2022 ambulatory PHYSICIAN FELICE RIVERA [facility] Work Phone: Start: 12-13-2022 Office outpatient ne w 30 minutes Ladarius Pitts [facility] Start: 12-06-2022 End: 12-06-2022 ambulatory Berenice Haile Other [employer] Other Start: 12-06-2022 Telephone encounter Berenice Marsh her [facility] Start: 11-22-2022 End: 11-22-2022 ambulatory Berenice Haile Other [employer] Other Start: 11-22-2022 Telephone encounter Berenice Salma her [facility] [employer] [facility] Start: 11-02-2022 End: 11-02-2022 ambulatory Berenice Haile Other [employer] Other Start: 11-02-2022 Telephone encounter Berenice Salma her [facility] [employer] Start: 09-22-2022 End: 09-22-2022 Departed Referred LEGUILLON DEBEADER Berenice Haile Work Phone: [facility] [place] Work Phone: Start: 09-22-2022 End: 09-22-2022 ambulatory LEGUILLON DEBEADER Berenice Haile Work Phone: [facility] Work Phone: Start: 09-22-2022 Office outpatient ne w 30 minutes Berenice Haile [facility] Start: 09-08-2022 End: 09-08-2022 Emergency department patient visit [facility] Start: 05-24-2022 End: 05-24-[address] LESLEY LINDSEY . Facility:[facility] Start: 01-21-2022 End: 01-21-2022 ambulatory IRINA PEREZ Facility:[facility] Start: 01-19-2022 End: 01-19-2022 ambulatory Liz Billingsley Other [employer] Other Start: 01-19-2022 Office outpatient vi sit 15 minutes Liz Billingsley [facility] Start: 10-08-[address] Arthur MADERA Facili ty:[facility] Start: 08-31-2021 End: 08-31-2021 ambulatory Agus Madera Other [employer] Other Start: 08-31-2021 Telephone encounter Agus ramirez [facility] Start: 08-06-2021 End: 08-07-2021 ambulatory IRINA PEREZ Facility:[facility] Start: 07-01-2021 End: 07-01-2021 ambulatory Agus Madera Other [employer] Other Start: 07-01-2021 Telephone encounter Agus ramirez [facility] Start: 03-03-2021 End: 03-03-2021 ambulatory Agus Madera Other [employer] Other Start: 03-03-2021 Office outpatient ne w 45 minutes Agus Madera [facility] Start: 12-27-2020 End: 12-27-2020 Emergency department patient visit Sai Hernandez MD Work Phone: [facility] Comment on above: Substance abuse (HCC ) (Primary Dx) Start: 07-10-2020 End: 07-10-2020 FQHC visit, estab pt Li DUARTE Work Phone: [facility] Work Phone: Start: 07-10-2020 End: 07-10-2020 FQHC visit, estab pt Li DUARTE Work Phone: [facility] Work Phone: Start: 07-10-2020 End: 07-10-2020 General Megan Arita CNP Work Phone: [facility] Work Phone: Start: 09-05-2019 End: 09-06-2019 ambulatory ROSANA ALANIZ Facility:[facility] Start: 07-16-2019 End: 07-16-2019 Nursing evaluation of patient and report Susan Em Work Phone: [facility] Work Phone: Start: 07-16-2019 End: 07-16-2019 Patient encounter procedure Rosana Alaniz Work Phone: Health [facility] Work Phone: Start: 07-16-2019 End: 03-13-2020 Patient encounter procedure Li Sutherland Work Phone: [facility] Work Phone: Start: 07-16-2019 End: 03-13-2020 Telemedicine consultation with patient Rosana Alaniz Work Phone: [facility] Work Phone: Start: 07-04-2019 End: 07-04-2019 Telemedicine consultation with patient Rosana Alaniz Work Phone: [facility] Work Phone: Start: 06-01-2019 End: 06-01-2019 Patient encounter procedure Li Sutherland Work Phone: [facility] Work Phone: Start: 06-01-2019 End: 06-01-2019 Telemedicine consultation with patient Rosana Alaniz Work Phone: [facility] Work Phone: Start: 05-24-2019 End: 05-24-2019 Established patient Rosana Alaniz Work Phone: [facility] Work Phone: Start: 03-08-2019 End: 03-08-2019 ambulatory Rosana Alaniz Work Phone: [facility] Work Phone: Start: 02-20-2019 End: 02-20-2019 Established patient Uday Hansen Work Phone: [facility] Work Phone: Start: 02-20-2019 End: 02-20-2019 Established patient Rosana Alaniz Work Phone: [facility] Work Phone: Start: 02-06-2019 End: 02-06-2019 Patient encounter procedure Rosana Alaniz Work Phone: [facility] Work Phone: Start: 01-29-2019 End: 01-29-2019 Emergency department patient visit ROSANA ALANIZ [facility] Start: 01-29-2019 End: 01-29-2019 Emergency department patient visit Waylon Montoya Work Phone: [facility] ED Comment on above: Accidental overdose of heroin, initial encounter (HCC) (Primary Dx) Start: 2019 End: 2019 Emergency department patient visit Sourav Baird Work Phone: [facility] ED Comment on above: Sciatica of left ramin e (Primary Dx); Closed fracture of right foot, initial encounter Start: 01-04-2019 End: 01-04-2019 Established patient Primitivo Lujan Work Phone: [facility] Work Phone: Start: 01-03-2019 End: 01-03-2019 Emergency department patient visit Elayne Hurley [facility] ED Comment on above: Herniated interverte bral disc of lumbar spine (Primary Dx); Neuropathy Start: 11-20-2018 End: 11-20-2018 Established patient Rosana Alaniz Work Phone: [facility] Work Phone: Start: 11-14-2018 End: 11-14-2018 Emergency department patient visit Marco A Jia Work Phone: [facility] Comment on above: Bilateral lower extr emity edema (Primary Dx); Transaminitis; Impetigo Start: 11-14-2018 End: 11-14-2018 Subsequent hospital visit by physician Rosana Alaniz [facility] Start: 11-14-2018 End: 11-16-2018 Subsequent hospital visit by physician [facility] Comment on above: Pain of left calf Start: 10-26-2018 End: 10-26-2018 Patient encounter procedure Rosana Alaniz Work Phone: [facility] Work Phone: Start: 10-25-2018 End: 10-25-2018 Patient encounter procedure Ivy Le Work Phone: [facility] Work Phone: Start: 10-15-2018 End: 10-15-2018 Emergency department patient visit JENNIFER WHALEY [facility] Start: 10-15-2018 End: 10-15-2018 Emergency department patient visit Jennifer Whaley Work Phone: [facility] ED Comment on above: Injury of left foot, initial encounter (Primary Dx) Start: 08-31-2018 End: 08-31-2018 Patient encounter procedure Rosana Alaniz Work Phone: [facility] Work Phone: Start: 06-15-2018 End: 06-15-2018 Established patient Rosana Alaniz Work Phone: [facility] Work Phone: Start: 06-01-2018 End: 06-01-2018 Patient encounter procedure Rosana Alaniz Work Phone: [facility] Work Phone: Start: 04-24-2018 End: 04-24-2018 Patient encounter procedure Rosana Alaniz Work Phone: [facility] Work Phone: Start: 04-06-2018 End: 04-06-2018 Patient encounter procedure Rosana Alaniz Work Phone: [facility] Work Phone: Start: 02-16-2018 Evaluation and management of established outpatient in office or other outpatient facility Rosana Alaniz [facility] Start: 02-16-2018 End: 02-16-2018 Patient encounter procedure Rosana Novoa [facility] Work Phone: Start: 02-16-2018 Medical Rosana Alaniz Other [facility] Start: 01-16-2018 Patient encounter OZZIE MCKEON [facility] Start: 11-24-2017 End: 11-24-2017 Patient encounter procedure Rosana Alaniz [facility] Work Phone: Start: 11-24-2017 Laboratory examinati on, unspecified Rosana Alaniz [facility] Start: 11-24-2017 Comprehensive metabo lic panel Rosanaray Alaniz [facility] Start: 11-24-2017 End: 11-24-2017 Office outpatient visit 15 minutes Rosana Alaniz Other [facility] Start: 11-24-2017 Radex ankle complete minimum 3 views Rosanaray Alaniz [facility] Start: 11-24-2017 Radex foot complete minimum 3 views Rosanaray Alaniz [facility] Start: 10-23-2017 End: 10-24-2017 Emergency department patient visit ACHILLES [facility] Start: 08-16-2017 End: 08-16-2017 Office outpatient visit 25 minutes Rosana Alaniz Other [facility] Start: 05-26-2017 Evaluation and management of established outpatient in office or other outpatient facility Rosana Alaniz [facility] Start: 05-26-2017 Antibody herpes smpl x type 1 Rosana Katty [facility] Start: 05-26-2017 C-reactive protein h igh sensitivity [facility] Start: 05-26-2017 End: 05-26-2017 Office outpatient visit 25 minutes Rosana Alaniz Other [facility] Start: 05-26-2017 Sedimentation rate r bc automated [facility] Start: 03-29-2017 End: 03-29-2017 Office outpatient visit 15 minutes Rosana Alaniz Other [facility] Start: 02-22-2017 Antibody herpes smpl x type 1 [facility] Start: 02-22-2017 C-reactive protein Rosanaray Alaniz [facility] Start: 02-22-2017 Comprehensive metabo lic panel [facility] Start: 02-22-2017 Culture bacterial bl ood aerobic w/id isolates [facility] Start: 02-22-2017 End: 02-22-2017 Office outpatient visit 25 minutes Rosana Alaniz Other [facility] Start: 02-22-2017 Sedimentation rate r bc automated [facility] Start: 02-22-2017 Evaluation and management of established outpatient in office or other outpatient facility [facility] Start: 02-01-2017 End: 02-01-2017 Office outpatient visit 15 minutes Rosana Alaniz Other [facility] Start: 02-01-2017 Polysom 6/>yrs sleep 4/> addl lona [facility] Start: 02-01-2017 Polysom 6/>yrs sleep w/cpap 4/> addl lona [facility] Start: 01-06-2017 End: 01-06-2017 Office outpatient visit 15 minutes Rosana Alaniz Other [facility] Start: 12-09-2016 End: 12-09-2016 Office outpatient new 20 minutes Rosana Alaniz Other [facility] Start: 09-15-2016 Ambulatory CHANO FRANKLIN Facility: [facility] Procedures Date Procedure Procedure Detail Performing Clinician [...] in Cervix by Cyto stain Johana Hansen [employer]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[employer]ANGING Work Phone: Start: 12-27-2020 Blood gases any [...] Work Phone: Start: 12-27-2020 Gonadotropin chorionic quantitative aSi Hernandez MD Work Phone: Start: 12-27-2020 Drug screen class list a Sai Tolbert i, MD Work Phone: Start: 12-27-2020 Urnls dip stick/tablet rgnt auto w/o microscopy Sai eHrnandez MD Work Phone: Start: 07-10-2020 Gluc bld gluc mntr dev cleared fda spec home use Rosana Alaniz [employer] Work Phone: Start: 07-10-2020 Most recent diastolic blood pressure < 80 mm hg Rosana Alaniz [employer] Work Phone: Start: 07-10-2020 Most recent systolic blood pressure <130 mm hg Rosana Alaniz [employer] Work Phone: Start: 07-10-2020 Psychotherapy w/patient 30 [...] foot complete minimum 3 views Jennifer Monterroso Warr[employer] Work Phone: Start: 06-15-2018 ANXIETY DISORDER NOS [...] Td Vaccines (6 - Td or Tdap) [facility] Start: 03-08-2030 DTaP/Tdap/Td vaccine (2 - Td or Tdap) DTaP/Tdap/Td vaccine (2 - Td or Tdap) [employer] Phone: Start: 08-14-2028 Screening for malign ant neoplasm of cervix [facility] Start: 08-14-2026 Screening for malign ant neoplasm of cervix Pap Smear [facility] Start: 05-24-2025 Screening for malign ant neoplasm of cervix [facility] Start: 04-18-2025 Adult BMI Screening Adult BMI Screen ing [facility] Start: 04-18-2025 Tobacco Screening Tobacco Screening [facility] Start: 01-09-2025 Tobacco Screening Tobacco Screening [facility] Start: 10-24-2024 Adult BMI Screening Adult BMI Screen ing [facility] Start: 10-24-2024 Tobacco Screening Tobacco Screening [facility] Start: 09-29-2024 Adult BMI Screening Adult BMI Screen ing [facility] Start: 09-14-2024 Adult BMI Screening Adult BMI Screen ing [facility] Start: 09-14-2024 Tobacco Screening Tobacco Screening [facility] Start: 08-25-2024 Adult BMI Screening Adult BMI Screen ing [facility] Start: 08-25-2024 Tobacco Screening Tobacco Screening [facility] Start: 05-30-2024 Adult BMI Screening Adult BMI Screen ing [facility] Start: 05-30-2024 Tobacco Screening Tobacco Screening [facility] Start: 05-30-2024 End: 05-30-2024 Patient encounter procedure 05/30/2024 10:30 AM EDT Office Visit [facility] [address] [place] [address] Jaswant Hussein PA-C [address] [place] [address] [facility] Start: 05-04-2024 Adult BMI Screening Adult BMI Screen ing [facility] Start: 05-04-2024 Tobacco Screening Tobacco Screening [facility] Start: 05-04-2024 End: 05-04-2024 Admission to same day surgery center 05/04/2024 1:50 PM EST - 05/04/2024 1:57 PM EST Surgery [facility] [address] [place] [address] Anup Butler MD [address] [place], [place] [id number] INJECTION BLOCK EPIDURAL CERVICAL/THORACIC C 6/7 TANIA [35461 (CPT )] [facility] Comment on above: INJECTION BLOCK EPID URAL CERVICAL/THORACIC C 6/7 TANIA [79742 (CPT )] Start: 05-04-2024 End: 05-04-2024 Njx dx/ther sbst intrlmnr crv/thrc w/img gdn INJECTION BLOCK EPIDURAL CERVICAL/THORACIC Stenosis of cervical spine 05/04/2024 1:50 PM EST [facility] Start: 05-04-2024 Subsequent hospital visit by physician 05/04/2024 1:50 PM EST Hospital Encounter [facility] [address] [place] [id number] Anup Butler MD [address] [place] [address] [facility] Start: 01-10-2024 End: 01-10-2024 Patient encounter procedure 01/10/2024 2:45 PM EST Office Visit [facility] [address] [place] [phone] Yumiko Elizalde, [employer]GUI[employer]ON DEBEADER[employer]ING [address] [place] [address] [facility] Start: 01-09-2024 Adult BMI Screening Adult BMI Screen [facility] Start: 12-23-2023 End: 12-23-2023 Admission to same day surgery center 12/23/2023 12:37 PM EDT - 12/23/2023 12:44 PM EDT Surgery [facility] [address] [place] [address] Anup Butler MD [address] [place] [id number] INJECTION SPINE TRANSFORAMINAL LEFT C 6, 7 NROOT [16333 (CPT )] [facility] Comment on above: INJECTION SPINE ANDERSON SFORAMINAL LEFT C 6, 7 NROOT [47912 (CPT )] Start: 12-23-2023 End: 12-23-2023 Njx anes&/strd w/img tfrml edrl crv/thrc 1 lvl INJECTION SPINE TRANSFORAMINAL Intervertebral disc stenosis of neural canal of cervical region 12/23/2023 12:37 PM EDT [facility] Start: 12-23-2023 Subsequent hospital visit by physician 12/23/2023 12:37 PM EDT Hospital Encounter [facility] [address] [place] [address] Anup Butler MD [address] [place], [place] [id number] [facility] Start: 12-17-2023 Tobacco Screening Tobacco Screening [facility] Start: 11-06-2023 Influenza vaccination [facility] Start: 09-30-2023 End: 09-30-2023 Patient encounter procedure 09/30/2023 10:40 AM EDT Office Visit [facility] [place] [id number] [place] [address] [place] [address] [address] [place] [address] [facility] Start: 09-13-2023 End: 09-13-2023 Patient encounter procedure 09/13/2023 10:45 AM EDT Office Visit [facility] [address] [place] [address] Renetta Elizalde PA [address] [facility] [place] [address] [facility] Start: 08-26-2023 End: 08-25-2024 CT Cervical spine W contrast IV CT cervical spine with contrast Imaging Routine Neck pain Low back pain, unspecified back pain laterality, unspecified chronicity, unspecified whether sciatica present Expected: 08/26/2023, Expires: 08/25/2024 [facility] Comment on above: Expected: 08/26/2023 , Expires: 08/25/2024 Start: 08-26-2023 End: 08-25-2024 CT Lumbar spine W contrast IV CT lumbar spine with contrast Imaging Routine Neck pain Low back pain, unspecified back pain laterality, unspecified chronicity, unspecified whether sciatica present Expected: 08/26/2023, Expires: 08/25/2024 [facility] Comment on above: Expected: 08/26/2023 , Expires: 08/25/2024 Start: 08-26-2023 End: 08-25-2024 RF Spine Views W contrast IT IR myelogram 2+ regions complete Imaging Routine Neck pain Low back pain, unspecified back pain laterality, unspecified chronicity, unspecified whether sciatica present Expected: 08/26/2023, Expires: 08/25/2024 [facility] Comment on above: Expected: 08/26/2023 , Expires: 08/25/2024 Start: 08-26-2023 End: 08-25-2024 XR Cervical spine Lateral Views [facility] Work Phone: Comment on above: Expected: 08/26/2023 , Expires: 08/25/2024 Start: 08-19-2023 End: 08-19-2023 Admission to same day surgery center 08/19/2023 10:09 AM EDT - 08/19/2023 10:15 AM EDT Surgery [facility] [address] [place] [phone] Anup Butler MD [address], [place] [id number] INJECTION BLOCK EPIDURAL CAUDAL STEROID [49030 (CPT )] [facility] Comment on above: INJECTION BLOCK EPID URAL CAUDAL STEROID [94506 (CPT )] Start: 08-19-2023 End: 08-19-2023 Njx dx/ther sbst intrlmnr lmbr/sac w/img gdn INJECTION BLOCK EPIDURAL CAUDAL STEROID Lumbar radiculopathy 08/19/2023 10:09 AM EDT [facility] Start: 08-19-2023 Subsequent hospital visit by physician 08/19/2023 10:09 AM EDT Hospital Encounter [facility] [address] [place] [phone] Anup Butler MD [address], [place] [phone] [facility] Start: 08-17-2023 End: 08-17-2023 Patient encounter procedure 08/17/2023 1:10 PM EDT Office Visit [facility] [address] [place] [address] Elayne Luciano MD [address] [facility] [address] [place] [address] [facility] Start: 08-15-2023 End: 08-15-2023 Patient encounter procedure 08/15/2023 1:00 PM EDT Procedure Visit [facility] [address] [place] [address] Blake Corea DO [address] [place] [address] [facility] Start: 07-08-2023 Subsequent hospital visit by physician 07/08/2023 Hospital Encounter [facility] [address] [place] [address] Anup Butler MD [address] [place] [address] [facility] Start: 07-05-2023 End: 07-05-2023 Patient encounter procedure 07/05/2023 1:00 PM EDT Office Visit [facility] [address] [place] [address] Renetta Elizalde PA [address] [place] [address] [facility] Start: 06-17-2023 End: 06-17-2023 Admission to same day surgery center 06/17/2023 7:57 AM EDT - 06/17/2023 8:03 AM EDT Surgery [facility] [address] [place] [address] Anup Butler MD [address] [place] [place] [phone] INJECTION BLOCK EPIDURAL CAUDAL STEROID [37792 (CPT )] [facility] Comment on above: INJECTION BLOCK EPID URAL CAUDAL STEROID [47735 (CPT )] Start: 06-17-2023 End: 06-17-2023 Njx dx/ther sbst intrlmnr lmbr/sac w/img gdn INJECTION BLOCK EPIDURAL CAUDAL STEROID Lumbar radiculopathy 06/17/2023 7:57 AM EDT [facility] Start: 06-17-2023 Subsequent hospital visit by physician 06/17/2023 7:57 AM EDT Hospital Encounter [facility] [address] [place] [phone] Anup Butler MD [address] [place] [id number] [facility] Start: 06-15-2023 Bacteria identified in Urine by Culture [facility] Start: 05-31-2023 End: 05-31-2023 Patient encounter procedure 05/31/2023 1:45 PM EDT Office Visit [facility] [address] [place] [phone] Renetta Elizalde PA [address] [place], [place] [id number] [facility] Start: 05-13-2023 End: 05-13-2023 Admission to same day surgery center 05/13/2023 12:51 PM EST - 05/13/2023 12:57 PM EST Surgery [facility] [address] [place] [address] Anup Butler MD [address] [facility] [place] [id number] INJECTION SPINE TRANSFORAMINAL Right L 5,1 Nroot [27389 (CPT )] [facility] Comment on above: INJECTION SPINE ANDERSON SFORAMINAL Right L 5,1 Nroot [62077 (CPT )] Start: 05-13-2023 End: 05-13-2023 Njx anes&/strd w/img tfrml edrl lmbr/sac 1 lvl INJECTION SPINE TRANSFORAMINAL Lumbar radiculopathy Spinal stenosis of lumbar region with neurogenic claudication 05/13/2023 12:51 PM EST [facility] Start: 05-13-2023 Subsequent hospital visit by physician 05/13/2023 12:51 PM EST Hospital Encounter [facility] [address] [place] [id number] Anup Butler MD [address] [place], [place] [id number] [facility] Start: 05-03-2023 End: 05-03-2023 Patient encounter procedure 05/03/2023 1:00 PM EST Office Visit [facility] [address] [place] [phone] Renetta Elizalde PA [address] [place], [place] [id number] [facility] Start: 04-28-2023 Patient referral [facility] Work Phone: Start: 04-27-2023 End: 04-27-2023 Patient encounter procedure 04/27/2023 8:00 AM EST Office Visit [facility] [address] [place] [phone] Gino Nicolas MD [address] , [facility] [address] [place] [address] [facility] Start: 04-05-2023 End: 04-05-2023 Patient encounter procedure 04/05/2023 2:30 PM EST Office Visit [facility] Pulmonary/Sleep Medicine [address] [place] [address] Shruthi Chinchilla MD [address] , [facility] [address] [place] [address] [facility] Start: 11-05-2022 Influenza vaccination [facility] Start: 09-22-2022 [facility] Start: 09-22-2022 A[address] Aerobic Culture [facility] Start: 09-22-2022 Anaerobic Culture Anaerobic Culture [facility] Start: 09-22-2022 Microscopic observat ion [Identifier] in Unspecified specimen by Gram stain Gram Stain [facility] Start: 12-27-2021 Creatinine measurement Creatinine mo nitoring [facility] Work Phone: Start: 12-27-2021 Potassium monitoring Potassium monit [facility] Work Phone: Start: 11-05-2020 Influenza vaccination Flu vaccine (# 1) [facility] Work Phone: Start: 01-04-2020 Creatinine monitoring Creatinine mon [place], [place] Start: 01-04-2020 Potassium monitoring Potassium monit [place], [place] Start: 11-15-2019 Creatinine monitoring Creatinine mon [place], [place] Start: 11-15-2019 Potassium monitoring Potassium monit [place], [place] Start: 07-17-2019 Drug Test, Uri ne, In House [facility] Work Phone: Start: 07-12-2019 HbA1c (Bld) [Mass fraction] [facility] Work Phone: Start: 07-04-2019 Medical Establ ished Patient [facility] Work Phone: Start: 03-28-[address] [facility] Work Phone: Start: 02-21-2019 [facility] Work Phone: Start: 02-20-2019 [facility] Work Phone: Comment on above: Note: Please make a referral to: Note: Please make a referral to: Dr Quintero Start: 01-04-2019 [facility] Work Phone: Comment on above: Note: Please make a referral to: falling, concerns for MS family hx Note: Please make a referral to: bulging disc with L5 nerve compression Start: 11-27-2018 Lipid 1996 panel [facility] Work Phone: Start: 11-20-2018 Neurology [facility] Work Phone: Comment on above: Note: Please make a referral to: [facility] if possible Start: 11-05-2018 Influenza vaccination Flu vaccine (# 1) [place], [place] Start: 10-25-2018 Orthopedics [facility] Work Phone: Comment on above: Note: Please make a referral to: Start: 10-17-2018 End: 10-17-2018 Appointment 10/17/2018 Appointment Pain Management Phyllis Vazquez MD [address] [facility] [address] [place] [address] [phone] [facility] Start: 08-31-2018 Pain Management [facility] Work Phone: Comment on above: Note: Please make a referral to: pro szymanski Start: 06-01-2018 Dermatology [facility] Work Phone: Comment on above: Note: Please make a referral to: Start: 11-25-2017 Drug test prsmv read direct optical obs pr date Urine Drug Test [facility] Start: 11-24-2017 Assay of free thyroxine TSH + free t 4 [facility] Start: 11-24-2017 Assay of iron Iron + TIBC ser [facility] Start: 11-24-2017 Assay of thyroid stimulating hormone tsh TSH + free t4 [facility] Start: 11-24-2017 Blood count complete auto&auto difrntl wbc CBC W/Diff [facility] Start: 11-24-2017 Blood count complete automated CBC auto [facility] Start: 11-24-2017 Cobalamin (Vitamin B 12) mass conc Vitamin B12 and Folate [facility] Start: 11-24-2017 Comprehensive metabo lic panel CMP [facility] Start: 11-24-2017 Iron binding capacity Iron + TIBC se r [facility] Start: 11-24-2017 Lipid panel Lipid Panel (C hol, HDL, LDL, Trig., VLDL) [facility] Start: 11-24-2017 [facility] Start: 08-16-2017 Drug test prsmv read direct optical obs pr date Urine Drug Test [facility] Start: 05-26-2017 Antibody herpes smpl x type 1 HSV 1 + 2 ab panel (IgG + IgM) [facility] Start: 05-26-2017 Blood count complete auto&auto difrntl wbc CBC W/Diff [facility] Start: 05-26-2017 C-reactive protein h igh sensitivity CRP high sensit [facility] Start: 05-26-2017 Erythrocyte sedimentation rate ESR [facility] Start: 03-22-2018 Protein mass conc CRP high sensit He alth [facility] Start: 05-26-2017 Syphilis test non-treponemal antibody qual Syphilis test, non-treponemal antibody; qualitative (eg, VDRL, RPR, ART) [facility] Start: 01-12-2016 Screening for malign ant neoplasm of cervix [facility] Start: 2007 Cervical cancer screen Cervical canc er screen [place], [place] Start: 2007 Screening for malign ant neoplasm of cervix Pap smear [facility] Phone: Start: 2005 DTaP/Tdap/Td vaccine (1 - Tdap) DTaP/Tdap/Td vaccine (1 - Tdap) [place], [place] Start: 01-12-2004 Adult BMI Follow Up Plan Adult BMI Follow Up Plan [facility] Start: 2001 HIV screen HIV screen [place], [place] Start: 1999 Varicella Vaccine (1 of 2 - 13+ 2-dose series) Varicella Vaccine (1 of 2 - 13+ 2-dose series) [place], [place] Start: 1998 COVID-19 Vaccine (1) COVID-19 Vaccin e (1) [facility] [employer] Phone: Start: 1998 Depression Screening Depression Scre [facility] Start: 1997 DTaP/Tdap/Td vaccine (1 - Tdap) DTaP/Tdap/Td vaccine (1 - Tdap) [place], [place] Start: 01-12-1992 Pneumococcal 0-64 ye ars Vaccine (1 of 1 - PPSV23) Pneumococcal 0-64 years Vaccine (1 of 1 - PPSV23) [place] Start: 01-12-1992 Pneumococcal 0-64 ye ars Vaccine (1 of 2 - PPSV23) Pneumococcal 0-64 years Vaccine (1 of 2 - PPSV23) [facility] Phone: Start: 1987 Varicella Vaccine (1 of 2 - 2-dose childhood series) Varicella Vaccine (1 of 2 - 2-dose childhood series) [place], [place] Start: 1986 Creatinine monitoring Creatinine mon monica [place], [place] Start: 1986 Potassium monitoring Potassium monit saqib [place] End: 08-25-2024 Creatinine includes GFR, serum Creatinine includes GFR, serum Lab Routine Neck pain Low back pain, unspecified back pain laterality, unspecified chronicity, unspecified whether sciatica present 1 Occurrences starting 08/26/2023 until 08/25/2024 [facility] Comment on above: 1 Occurrences starti ng 08/26/2023 until 08/25/2024 End: 01-03-2019 Culture Blood #1 Culture Blood #1 Microbiology STAT One Time for 1 Occurrences starting 01/03/2019 until 01/03/2019 [place], [place] Comment on above: One Time for 1 Occur rences starting 01/03/2019 until 01/03/2019 Culture Blood #1 Culture Blood # 1 Microbiology STAT 01/03/2019 5:11 PM EDT [place] End: 01-03-2019 Culture Blood #2 Culture Blood #2 Microbiology STAT One Time for 1 Occurrences starting 01/03/2019 until 01/03/2019 [place] Comment on above: One Time for 1 Occur rences starting 01/03/2019 until 01/03/2019 Culture Blood #2 Culture Blood # 2 Microbiology STAT 01/03/2019 5:23 PM EDT [place] EKG 12 Lead EKG 12 Lead ECG STAT 12/27/2020 9:52 AM EDT [facility] Work Phone: End: 12-27-2020 Glucose [Mass/volume] in Serum or Plasma POCT glucose Point of Care Testing STAT One Time for 1 Occurrences starting 12/27/2020 until 12/27/2020 [employer] Phone: Comment on above: One Time for 1 Occur rences starting 12/27/2020 until 12/27/2020 Hepatitis C virus RN A [log units/volume] (viral load) in Serum or Plasma by BETITO with probe detection [facility] Njx anes&/strd w/img tfrml edrl crv/thrc 1 [...] for 1 Occurrences starting 11/14/2018 until 11/14/2018 [place], [place] Comment on above: Once for 1 Occurrenc es starting 11/14/2018 until 11/14/2018 Path Review, Smear Path Review, Smear Lab Routine 11/14/2018 5:08 PM EDT [place], [place] Patient Education Altered Mental Status Drug Misuse and Addiction (DC) Substance Misuse Treatment [facility] Work Phone: Patient referral [facility] Work Phone: End: 2019 Splint application Splint application Procedures Routine One Time for 1 Occurrences starting 2019 until 2019 [place], [place] Comment on above: One Time for 1 Occur rences starting 2019 until 2019 Immunizations Immunization Date Immunization Notes Care Provider Demetrius nicholas 03-08-2020 tetanus toxoid, redu dodie diphtheria toxoid, and acellular pertussis vaccine, adsorbed Johana Hansen [employer] Work Phone: [facility] 02-20-2019 hepatitis A vaccine, pediatric/adolescent dosage, 2 dose schedule; Translations: [Havrix] Rosana Alaniz [facility] Comment on above: Note: pt tolerated w ell, pt waited 10 min in treatment room with no adverse effects noted at this time 04-14-2018 hepatitis A vaccine, adult dosage [facility] 05-08-2017 influenza, seasonal, injectable, preservative free [facility] 05-08-2017 influenza virus vaccine, unspecified formulation Johana Hansen [employer] Work Phone: [facility] 01-13-2015 influenza, injectabl e, madin flora canine kidney, preservative free [facility] 12-02-2009 hepatitis B vaccine, pediatric or pediatric/adolescent dosage [facility] 06-20-2009 hepatitis B vaccine, pediatric or pediatric/adolescent dosage [facility] 05-20-2009 hepatitis B vaccine, pediatric or pediatric/adolescent dosage [facility] 11-17-1998 measles, mumps and rubella virus vaccine [facility] 01-31-1990 diphtheria, tetanus toxoids and pertussis vaccine [facility] 01-31-1990 trivalent poliovirus vaccine, live, oral [facility] 12-08-1987 diphtheria, tetanus toxoids and pertussis vaccine [facility] 12-08-1987 trivalent poliovirus vaccine, live, oral [facility] 12-07-1987 measles, mumps and rubella virus vaccine [facility] 1985 diphtheria, tetanus toxoids and pertussis vaccine [facility] 1986 trivalent poliovirus vaccine, live, oral [facility] 1986 diphtheria, tetanus toxoids and pertussis vaccine [facility] 1986 trivalent poliovirus vaccine, live, oral [facility] Payers Date Payer Category Payer Medicaid [id number] 2016 Unknown [employer] xxxxxxxxxxx 2016-Present [phone] [address] [place] [address] xxxxxxxxxxx [id number] 2016 Medicaid [id number] 2.16.840.1.455772.3.441 2010 Unknown [id number] 2.16.840.1.039385.3.441 1986 Unknown [id number] 2.16.840.1.642922.3.579.2.176 1986 Unknown [id number] 2.16.840.1.149278.3.579.2.176 1986 Unknown [id number] 2.16.840.1.867847.3.579.2.647 1986 Unknown [id number] 2.16.840.1.385347.3.579.2.593 1986 Unknown [id number] 2.16.840.1.630933.3.579.2.593 1986 Unknown [id number] 2.16.840.1.736720.3.579.2.593 1986 Unknown [id number] 2.16.840.1.378812.3.579.2.593 1986 Unknown [id number] 2.16.840.1.762871.3.579.2.173 1986 Unknown [id number] 2.16.840.1.440050.3.579.2.1286 1986 Unknown [id number] 2.16.840.1.767401.3.579.2.1286 1986 Unknown [id number] 2.16.840.1.779081.3.579.2.1286 1986 Unknown [id number] 2.16.840.1.821060.3.579.2.1286 1986 Unknown [id number] 2.16.840.1.575041.3.579.2.1259 1986 Unknown [id number] 2.16.840.1.570514.3.579.2.1259 1986 Unknown [id number] 2.16.840.1.493701.3.579.2.1259 1986 Unknown [id number] 2.16.840.1.284357.3.579.2.1259 1986 Unknown [id number] 2.16.840.1.935362.3.579.2.1286 1986 Unknown [id number] 2.16.840.1.150932.3.579.2.1285 1986 Unknown [id number] 2.16.840.1.910316.3.579.2.1285 1986 Unknown [id number] 2.16.840.1.743838.3.579.2.1285 1986 Unknown [id number] 2.16.840.1.724590.3.579.2.1285 1986 Unknown [id number] 2.16.840.1.648307.3.579.2.1285 1986 Unknown [id number] 2.16.840.1.238053.3.579.2.1285 1986 Unknown [id number] 2.16.840.1.427209.3.579.2.1285 1986 Unknown [id number] 2.16.840.1.425674.3.579.2.1285 1986 Unknown [id number] 2.16.840.1.679217.3.579.2.1285 1986 Unknown [id number] 2.16.840.1.064193.3.579.2.1285 1986 Unknown [id number] 2.16.840.1.057576.3.579.2.1285 1986 Unknown [id number] 2.16.840.1.008574.3.579.2.1285 1986 Unknown [id number] 2.16.840.1.759386.3.579.2.1285 1986 Unknown [id number] 2.16.840.1.870733.3.579.2.1285 1986 Unknown [id number] 2.16.840.1.727358.3.579.2.1285 1986 Unknown [id number] 2.16.840.1.461620.3.579.2.1285 1986 Unknown [id number] 2.16.840.1.390479.3.579.2.1286 1986 Unknown [id number] 2.16.840.1.101124.3.579.2.1286 1986 Unknown [id number] 2.16.840.1.318854.3.579.2.1286 1986 Unknown [id number] 2.16.840.1.154625.3.579.2.[facility] 1986 Unknown [id number] 2.16.840.1.773842.3.579.2.1286 1986 Unknown [id number] 2.16.840.1.319795.3.579.2.[facility] 1986 Unknown [id number] 2.16.840.1.979369.3.579.2.1286 1986 Unknown [id number] 2.16.840.1.991441.3.579.2.[facility] Unknown [id number] 2.16.840.1.164866.3.579.2.1286 1959 Self-pay 1959 Unknown [id number] 2.16.840.1.951767.19 Unknown [id number] 2.16.840.1.583241.3.579.2.531 Unknown [id number] 2.16.840.1.493192.3.579.2.531 Unknown [id number] 2.16.840.1.603800.3.579.2.531 Social History Date Type Detail Facility Start: Unknown if ever smoked [facility] Start: Light tobacco smoker [facility] Start: Current every day smoker [facility] Start: 10-15-2018 End: 08-26-2023 Tobacco smoking status [facility] Former smoker [facility] Start: 10-15-2018 End: 08-15-2023 Alcohol intake No [facility] Start: 1985 Sex Assigned At Not on file [facility] CHYNA Assertion Gender identity finding (finding) [facility] Work Phone: Assertion Finding of sexua l orientation (finding) [facility] Work Phone: Assertion Sexually active (finding) [facility] Work Phone: Tobacco smoking status Unknown if ever smoked [facility] Work Phone: Start: 2019 End: 12-27-2020 Tobacco smoking status NHIS Current some day smoker [facility] CHYNA Assertion [facility] Assertion Alcohol consumpt ion screening (procedure) [facility] Work Phone: Assertion Problem situatio n relating to social and personal history (finding) [facility] Work Phone: Assertion Emotional stress (finding) [facility] Work Phone: Assertion Single person (finding) [facility] Work Phone: Start: 01-29-2019 End: 12-27-2020 Alcohol intake Current non-drinker of alcohol (finding) [facility] Start: 12-27-2020 End: 01-04-2023 Tobacco use and exposure Never used Phase Focus Exposure to SARS-CoV-2 (event) Not sure [facility] [employer] Start: 1985 Sex Assigned At Female [facility] Start: 11-17-2016 End: 01-04-2023 Tobacco smoking status SDIS Never smoked tobacco [facility] Start: 04-11-2023 End: 09-19-2023 Alcohol intake Ex-drinker (finding) [facility] Start: 04-11-2023 End: 08-15-2023 History of Social function [facility] Start: 06-15-2023 End: 10-06-2023 Tobacco smoking status NHIS Smoker (finding) [facility] History of tobacco use Cigarette Smoker [facility] Do you feel stress - tense, restless, nervous, or anxious, or unable to sleep at night because your mind is troubled all the time - these days [OSQ] Only a little [facility] Start: 03-17-2022 Tobacco Comment history of smo noemí social [facility] Start: 01-12-2019 Alcohol Comment maybe monthly [facility] Start: 10-10-2014 Sex Female (finding) [facility] NEGATED: Highlighted row Assertion Exposure to pollution (event) [facility] Work Phone: NEGATED: Highlighted row Assertion Tobacco user (finding) [facility] Work Phone: NEGATED: Highlighted row Assertion Current drinker of alcohol (finding) [facility] Work Phone: NEGATED: Highlighted row Assertion Finding relating to drug misuse behavior (finding) [facility] Work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 Patient with Rosana Alaniz [employer] 11/20/2018 Obesity due to excess calories Medical E stablished Patient with Rosana Alaniz CNP 11/20/2018 Z68.34 - Body mass index (BM I) 34.0-34.9 adult Medical Established Patient with Rosana Alaniz CNP 11/20/2018 M25.572 - Pain in left ankle and joints of left foot Chart Update with Primitivo Lujan [employer] 10/25/2018 Assess open wound of the jacinto d, complicated Medical Established Patient with Rosana Alaniz [employer] 06/15/2018 Body mass index Medical Established Patient with Rosana Alaniz CNP 06/15/2018 Assess dermatitis Chart Update with Rosana Alaniz [employer] 06/01/2018 [facility] Work Phone: 1(666) 493-882504-29-2020 History general Narrative - Reported Includes: Medical [...] 06/16/19 19 History of psychiatric disorders 019 [facility] Work Phone: Evaluation note* Diagnosis Substance abuse (HCC)- Primary Other, mixed, or unspecified nondependent drug abuse, unspecified documented in this encounter [facility] Work Phone: evaluation noteNo InformationNort mobicanvas Other Evaluation noteNo assessment information available [facility] Work Phone: Evaluation note* Diagnosis Onset Date Resolution Status Abscess acute Cellulitis acute [facility] Work Phone: Evaluation note* Diagnosis Onset Date Resolution Status Abscess acute Cellulitis acute Vitamin B 12 deficiency acut e [facility] Work Phone: Evaluation note* Diagnosis S/P lumbar fusion Arthrodesis status [facility] Diagnosis Stenosis of cervical spine- Primary Spinal stenosis in cervical region Stenosis of cervical spine- Primary Spinal stenosis in cervical region Stenosis of cervical spine Spinal stenosis in cervical region documented [facility] Diagnosis Bilateral leg pain- Primary Pain in soft tissues of limb Herniated lumbar intervertebral disc Displacement of lumbar intervertebral disc without myelopathy S/P lumbar fusion Arthrodesis status Lumbar foraminal stenosis documented [facility]* Diagnosis Neck pain- Primary Cervicalgia Low back pain, unspecified back pain laterality, unspecified chronicity, unspecified whether sciatica present [facility]* Diagnosis Lumbar radiculopathy- Primary Thoracic or lumbosacral neuritis or radiculitis, unspecified Spinal stenosis of lumbar region with neurogenic claudication Spinal stenosis of lumbar region with neurogenic claudication- Primary Lumbar radiculopathy Thoracic or lumbosacral neuritis or radiculitis, unspecified Lumbar radiculopathy Thoracic or lumbosacral neuritis or radiculitis, unspecified Spinal stenosis of lumbar region with neurogenic claudication documented in this encounter [facility] Diagnosis S/P lumbar fusion- Primary Arthrodesis status Low back pain, unspecified back pain laterality, unspecified chronicity, unspecified whether sciatica present Neck pain Cervicalgia documented in this encounter [facility]* Diagnosis DDD (degenerative disc disease), lumbosacral- Primary Degeneration of lumbar or lumbosacral intervertebral disc documented in this encounter [facility]* Diagnosis Lumbar radiculopathy- Primary [...] History pick/port line Hospitalization History see above [employer] Other History general Narrative - Reported* Type Description Date Medical History ulcers bleeding and perforated Medical History fibromyalgia Medical History ADHD Medical History migraine headache Medical History insomnia Medical History Chiari malformation Medical History multiple sclerosis Medical History Substance abuse Surgical History cholecystectomy Surgical History breast reduction Surgical History breast augmentation Surgical History gastric sleeve Surgical History pick/port line Hospitalization History see above [employer] Other History of Present illness Narrative History of Present Illness not supported for this document type No History of Present Illness RecordedHealth [facility] Work Phone: Hospital Discharge instructions Additional Instructions If your symptoms return/worsen or you develop any further concerns or symptoms please see your doctor or return to the emergency department immediately.[facility] Work Phone: Instructions Instructions not supported for this document type No Instructions RecordedHealth [facility] Work Phone: InstructionsNot on filedocumented in this [...] Health SystemInstructionsNot on filedocumented in this encounter [facility] outcome Narrative Includes: Evaluations & Outcomes for active Goals No Outcomes RecordedHealth [facility] Work Phone: Reason for referral (narrative)No Reason for Referral Record[facility] Work Phone: Reason for referral (narrative)* Consultation (Routine) - Pending Review Specialty Diagnoses / Procedures Referred By Ligia t Referred To Contact Pain Medicine Diagnoses Bilateral leg pain Herniated lumbar intervertebral disc S/P lumbar fusion Lumbar foraminal stenosis Johana Hansen, GERALDO [address] [address] Anup Butler MD [address] [place] [address] Referral ID Status Reason Start Date Expiration Date Visits Requested Visits Authorized [id number] Pending Review Specialty Services Required 03/30/2023 03/29/2024 [facility] - Reported Review of Systems not supported for this document type No Review of Systems RecordedHealth [facility] Work Phone: Summary Purpose Family History Description [...] Documents on File Type Date Recorded Patient [employer] Advance Directives and Living Will Power of Icu Rn Latest Code Status on File Code Status Date Activated Date Inactivated Comments Full Code 11/16/2016 12:58 PM 11/16/2016 4:36 PM Full Code 07/27/2016 3:17 PM 07/27/2016 6:53 PM Full Code 11/25/2015 11:45 AM 11/25/2015 3:40 PM Full Code 11/11/2015 11:55 AM 11/11/2015 5:56 PM Full Code 07/22/2015 12:41 PM 07/22/2015 4:32 PM Documents on File Type Date Recorded Patient [employer] Advance Directives and Living Will Power of Icu Rn Latest Code Status on File Code Status Date Activated Date Inactivated Comments Full Code 11/16/2016 12:58 PM 11/16/2016 4:36 PM Full Code 07/27/2016 3:17 PM 07/27/2016 6:53 PM Full Code 11/25/2015 11:45 AM 11/25/2015 3:40 PM Full Code 11/11/2015 11:55 AM 11/11/2015 5:56 PM Full Code 07/22/2015 12:41 PM 07/22/2015 4:32 PM Documents on File Type Date Recorded Patient [employer] ACP-Advance Directive ACP-Power of Icu Rn Advance Directive Response Recorded Date/ Time Advance [...] not take and drive. Please call your activities officer for follow-up within 1 week. Please return to the ED if you have severe worsening of pain, loss of sensation, your foot become numb, or any other concerns arise. documented in this encounter* Attachments The following attachments cannot be sent through Care Everywhere. * Edema: Leg and Ankle (Mauritian) * Impetigo (Mauritian) * LFTs (Liver Function Tests) (Mauritian) documented in this encounter* Attachments The following attachments cannot be sent through Care Everywhere. * Sciatica (Mauritian) * Foot Fracture (Mauritian) documented in this encounter* Instructions* Elayne Hurley MD - 01/03/2019 You have a large herniated disc with entrapment of the left L5 nerve root. I would recommend follow-up with a neurosurgeon. documented in this encounter* Attachments The following attachments cannot be sent through Care Everywhere. * Drug Overdose: Opioid (Mauritian) documented in this encounter Assessments Diagnosis Injury of left foot, initial encounter- Primary Findings Encounter Date M25.572 - Pain in left ankle and joints of left foot Chart Update with Primitivo Lujan [facility] 10/25/2018 Assess open wound of the jacinto d, complicated Medical Established Patient with Rosana Alaniz [facility] 06/15/2018 Body mass index Medical Established Patient with Rosana Alaniz [facility] 06/15/2018 Assess dermatitis Chart Update with Rosana Alaniz [facility] 06/01/2018 Diagnosis Bilateral lower extremity edema- Primary Edema Transaminitis Nonspecific elevation of levels of transaminase or lactic acid dehydrogenase (LDH) Impetigo Findings Encounter Date Bulging intervertebral disc Medical Esta blished Patient with Primitivo Lujan [facility] 01/04/2019 Fibromyalgia Medical Established Patient with Primitivo Lujan [facility] 01/04/2019 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 Medical Established Patient with Primitivo Lujan [facility] 01/04/2019 Obesity due to excess calories Medical E stablished Patient with Primitivo Lujan [facility] 01/04/2019 Z30.42 - Encounter for surve illance of injectable contraceptive Medical Established Patient with Primitivo Lujan [facility] 01/04/2019 Z68.31 - Body mass index (BM I) 31.0-31.9 adult Medical Established Patient with Primitivo Lujan [facility] 01/04/2019 Assess migraine headache Medical Establi shed Patient with Rosana Alaniz [facility] 11/20/2018 Diabetes Risk Test Score was three score Medical Established Patient with Rosana Alaniz [facility] 11/20/2018 Obesity due to excess calories Medical E stablished Patient with Rosana Alaniz [facility] 11/20/2018 Z68.34 - Body mass index (BM I) 34.0-34.9 adult Medical Established Patient with Rosana Alaniz [facility] 11/20/2018 M25.572 - Pain in left ankle and joints of left foot Chart Update with Primitivo Lujan [facility] 10/25/2018 Assess open wound of the jacinto d, complicated Medical Established Patient with Rosana Alaniz [facility] 06/15/2018 Body mass index Medical Established Patient with Rosana Alaniz [facility] 06/15/2018 Assess dermatitis Chart Update with Rosana Alaniz [facility] 06/01/2018 Diagnosis Sciatica of left side- Primary Sciatica Closed fracture of right foot, initial encounter Findings Encounter Date 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 BH Established Patient with Uday Hansen [facility] 02/20/2019 Fagerstrom Score was 0 02/20/2019 Medica l Established Patient with Rosana Alaniz [facility] 02/20/2019 Obesity due to excess calories Medical E stablished Patient with Rosana Alaniz [facility] 02/20/2019 PHQ-9: total score was 24 02/20/2019 Med ical Established Patient with Rosana Alaniz [facility] 02/20/2019 Z68.34 - Body mass index (BM I) 34.0-34.9 adult Medical Established Patient with Rosana Alaniz [facility] 02/20/2019 Bulging intervertebral disc Medical [facility]ished [facility] Fibromyalgia [facility]2019 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 Medical Established Patient with IvyNya Lujan [facility] 01/04/2019 Obesity due to excess calories Medical E stablished [facility]/04/2019 Z30.42 - Encounter for surve illance of injectable contraceptive Medical Established [facility]/04/2019 Z68.31 - Body mass index (BM I) 31.0-31.9 adult Medical Established [facility]/04/2019 Assess migraine headache Medical Establi shed Patient with Rosana Alaniz [facility] 11/20/2018 Diabetes Risk Test Score was three score Medical Established Patient with Rosana Alaniz [facility] 11/20/2018 Obesity due to excess calories Medical E stablished Patient with Rosana Alaniz [facility] 11/20/2018 Z68.34 - Body mass index (BM I) 34.0-34.9 adult Medical Established Patient with Rosana Alaniz [facility] 11/20/2018 M25.572 - Pain in left ankle and joints of left foot [facility] 10/25/2018 Assess open wound of the jacinto d, complicated Medical Established Patient with Rosana Alaniz [facility] 06/15/2018 Body mass index Medical Established Patient with Rosana Alaniz [facility] 06/15/2018 Assess dermatitis Chart Update with Rosana Katty [facility] 06/01/2018 Findings Encounter Date Anxiety disorder NOS CPS Med Review with Rosana Katty [facility] 03/08/2019 Obesity due to excess calories CPS Med R eview with Rosana Alaniz [facility] 03/08/2019 Screening for diabetes mellitus CPS Med Review with Rosana Alaniz [facility] 03/08/2019 Z68.32 - Body mass index (BM I) 32.0-32.9 adult CPS Med Review with Rosana Alaniz [facility] 03/08/2019 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 BH Established Patient with Uday Hansen [facility] 02/20/2019 Fagerstrom Score was 0 02/20/2019 Medica l Established Patient with Rosana Alaniz [facility] 02/20/2019 Obesity due to excess calories Medical E stablished Patient with Rosana Alaniz [facility] 02/20/2019 PHQ-9: total score was 24 02/20/2019 Med ical Established Patient with Rosana Alaniz [facility] 02/20/2019 Z68.34 - Body mass index (BM I) 34.0-34.9 adult Medical Established Patient with Rosana Alaniz [facility] 02/20/2019 Bulging intervertebral disc Medical Esta blished [facility] Fibromyalgia Medical Established Patient with Ivy Le [facility] 01/04/2019 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 Medical Established Patient with Primitivo Lujan [facility] 01/04/2019 Obesity due to excess calories Medical E stablished Patient with Primitivo Lujan [facility] 01/04/2019 Z30.42 - Encounter for surve illance of injectable contraceptive Medical Established Patient with Primitivo Lujan [facility] 01/04/2019 Z68.31 - Body mass index (BM I) 31.0-31.9 adult Medical Established Patient with Primitivo Lujan [facility] 01/04/2019 Assess migraine headache Medical Establi shed Patient with Rosana Alaniz [facility] 11/20/2018 Diabetes Risk Test Score was three score Medical Established Patient with Rosana Alaniz [facility] 11/20/2018 Obesity due to excess calories Medical E stablished Patient with Rosana Alaniz [facility] 11/20/2018 Z68.34 - Body mass index (BM I) 34.0-34.9 adult Medical Established Patient with Rosana Alaniz [facility] 11/20/2018 M25.572 - Pain in left ankle and joints of left foot Chart Update with Ivy Le [facility] 10/25/2018 Assess open wound of the jacinto d, complicated Medical Established Patient with Rosana Alaniz [facility] 06/15/2018 Body mass index Medical Established Patient with Rosana Alaniz [facility] 06/15/2018 Assess dermatitis Chart Update with Rosana Alanzi [facility] 06/01/2018 Findings Encounter Date Obesity due to excess calories Telemedicine with Rosana Alaniz [facility] 07/04/2019 Z68.31 - Body mass index (BM I) 31.0-31.9, adult Telemedicine with Rosana Alaniz [facility] 07/04/2019 Anxiety disorder NOS CPS Med Review with Rosana gomez [facility] 03/08/2019 Obesity due to excess calories CPS Med Review wi th Rosana Alaniz [facility] 03/08/2019 Screening for diabetes mellitus CPS Med Review w ith Rosana Alaniz [facility] 03/08/2019 Z68.32 - Body mass index (BM I) 32.0-32.9 adult CPS Med Review with Rosana Alaniz [facility] 03/08/2019 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 BH Established Patient with Uday Hansen [facility] 02/20/2019 Fagerstrom Score was 0 02/20/2019 Medica l Established Patient with Rosana Alaniz [facility] 02/20/2019 Obesity due to excess calories Medical E stablished Patient with Rosana Alaniz [facility] 02/20/2019 PHQ-9: total score was 24 02/20/2019 Med ical Established Patient with Rosana Alaniz [facility] 02/20/2019 Z68.34 - Body mass index (BM I) 34.0-34.9 adult Medical Established Patient with Rosana Alaniz [facility] 02/20/2019 Bulging intervertebral disc Medical Esta blished Patient with Primitivo Lujan [facility] 01/04/2019 Fibromyalgia Medical Established Patient with Ivy Le [facility] 01/04/2019 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 Medical Established Patient with Primitivo Lujan [facility] 01/04/2019 Obesity due to excess calories Medical E stablished Patient with Primitivo Lujan [facility] 01/04/2019 Z30.42 - Encounter for surve illance of injectable contraceptive Medical Established Patient with Primitivo Lujan [facility] 01/04/2019 Z68.31 - Body mass index (BM I) 31.0-31.9 adult Medical Established Patient with Primitivo Lujan [facility] 01/04/2019 Assess migraine headache Medical Establi shed Patient with Rosana Alaniz [facility] 11/20/2018 Diabetes Risk Test Score was three score Medical Established Patient with Rosana Alaniz [facility] 11/20/2018 Obesity due to excess calories Medical E stablished Patient with Rosana Alaniz [facility] 11/20/2018 Z68.34 - Body mass index (BM I) 34.0-34.9 adult Medical Established Patient with Rosana Alaniz [facility] 11/20/2018 M25.572 - Pain in left ankle and joints of left foot Chart Update with Primitivo Lujan [facility] 10/25/2018 Assess open wound of the jacinto d, complicated Medical Established Patient with Rosana Alaniz [facility] 06/15/2018 Body mass index Medical Established Patient with Rosana Alaniz [facility] 06/15/2018 Assess dermatitis Chart Update with Rosana Alaniz [facility] 06/01/2018 Findings Encounter Date Moderate recurrent major depression [facility] with Li DUARTE 03/13/2020 Body mass index Telemedicine Establi sted Patient with Rosana Alaniz [facility] 03/13/2020 Obesity due to excess calories Telemedic ine Establisted Patient with Rosana Alaniz [facility] 03/13/2020 Obesity due to excess calories Telemedicine with Rosana Alaniz [facility] 07/04/2019 Z68.31 - Body mass index (BM I) 31.0-31.9, adult Telemedicine with Rosana Alaniz [facility] 07/04/2019 Anxiety disorder NOS CPS Med Review with Rosana gomez [facility] 03/08/2019 Obesity due to excess calories CPS Med Review wi th Rosanaray Alaniz [facility] 03/08/2019 Screening for diabetes mellitus CPS Med Review w ith Rosanaray Alaniz [facility] 03/08/2019 Z68.32 - Body mass index (BM I) 32.0-32.9 adult CPS Med Review with Rosana Alaniz [facility] 03/08/2019 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 Established Patient with Uday Hansen [facility] 02/20/2019 Fagerstrom Score was 0 02/20/2019 Medica l Established Patient with Rosana Alaniz [facility] 02/20/2019 Obesity due to excess calories Medical E stablished Patient with Rosana Alaniz [facility] 02/20/2019 PHQ-9: total score was 24 02/20/2019 Med ical Established Patient with Rosana Alaniz [facility] 02/20/2019 Z68.34 - Body mass index (BM I) 34.0-34.9 adult Medical Established Patient with Rosana Alaniz [facility] 02/20/2019 Bulging intervertebral disc Medical Esta blished Patient with Primitivo Lujan [facility] 01/04/2019 Fibromyalgia Medical Established Patient with Primitivo Lujan [facility] 01/04/2019 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 Medical Established Patient with Primitivo Lujan [facility] 01/04/2019 Obesity due to excess calories Medical E stablished Patient with Primitivo Lujan [facility] 01/04/2019 Z30.42 - Encounter for surve illance of injectable contraceptive Medical Established Patient with Primitivo Lujan [facility] 01/04/2019 Z68.31 - Body mass index (BM I) 31.0-31.9 adult Medical Established Patient with Primitivo Lujan [facility] 01/04/2019 Assess migraine headache Medical Establi shed Patient with Rosana Alaniz [facility] 11/20/2018 Diabetes Risk Test Score was three score Medical Established Patient with Rosana Katty [facility] 11/20/2018 Obesity due to excess calories Medical E stablished Patient with Rosana Alaniz [facility] 11/20/2018 Z68.34 - Body mass index (BM I) 34.0-34.9 adult Medical Established Patient with Rosana Alaniz [facility] 11/20/2018 M25.572 - Pain in left ankle and joints of left foot Chart Update with Primitivo Lujan [facility] 10/25/2018 Assess open wound of the jacinto d, complicated Medical Established Patient with Rosana Alaniz [facility] 06/15/2018 Body mass index Medical Established Patient with Rosana Alaniz [facility] 06/15/2018 Assess dermatitis Chart Update with Rosana [facility] 06/01/2018 Diagnosis Herniated intervertebral disc of lumbar spine- Primary Neuropathy Mononeuritis of unspecified site Diagnosis Accidental overdose of heroin, initial encounter (HCC)- Primary Findings Encounter Date Assess open wound of the jacnito d, complicated Medical Established Patient with Rosana Alaniz [facility] 06/15/2018 Body mass index Medical Established Patient with Rosana Alaniz [facility] 06/15/2018 Assess dermatitis Chart Update with [facility] 06/01/2018 Diagnosis Pain of left calf Findings Encounter Date Assess migraine headache Medical Establi shed Patient with Rosana Alaniz [facility] 11/20/2018 Diabetes Risk Test Score was three score Medical Established Patient with Rosana [facility] 11/20/2018 Obesity due to excess calories Medical E stablished Patient with Rosana [facility] 11/20/2018 Z68.34 - Body mass index (BM I) 34.0-34.9 adult Medical Established Patient with Rosana Alaniz [facility] 11/20/2018 M25.572 - Pain in left ankle and joints of left foot Chart Update with Primitivo Lujan [facility] 10/25/2018 Assess open wound of the jacinto d, complicated Medical Established Patient with Rosana Alaniz [facility] 06/15/2018 Body mass index Medical Established Patient with Rosana Alaniz [facility] 06/15/2018 Assess dermatitis Chart Update with Rosana Alaniz [facility] 06/01/2018 Instructions Instructions not supported [...] LEFT Pensiero, Christopher A, DPM [address] [facility] [address] [place] [address] Reason [place]-- psychaitry for ADD treatment, matthew like to see ana martinez if available 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), predominantly inattentive type (F90.0) Referral Organization [facility] [place] Referring Provider First Name Berenice Referring Provider Last Name Rohrbacher Referring Provider Specialty Nurse Pract itioner Referred Organization [facility] [employer] Referred Address [address] [place] [place], [place],[address] Referred Provider Specialty Psychiatry Referral Priority Routine General Notes Katina Winter 03:07:30 PM >received today, waiting for notes to be locked to fax Reason *FU 09/29 evaluate -- would like scheduled [place] Diagnosis 1 Lupus (M32.9) Diagnosis 2 Fibromyalgia (M79.7) Referral Organization [facility] Family [facility] [place] Referring Provider First Name Berenice Referring Provider Last Name Rohrbacher Referring Provider Specialty Nurse Pract itioner Referred Organization [facility] Referred Address [address],[address] Referred Provider Specialty Rheumatology Referral Priority Routine General Notes Katina Winter 03:28:37 PM >received today, notes locked, ins attached, referral faxed Clinical Notes Dr. Colindres P: [id number] F: [id number] Reason evaluate Diagnosis 1 Hepatitis C virus in fection without hepatic coma, unspecified chronicity (B19.20) Referral Organization [facility] [place] Referring Provider First Name Berenice Referring Provider Last Name Rohrbacher Referring Provider Specialty Nurse Pract itioner Referred Organization [facility] Gastroenterolo gy Referred Provider Agus [place] Referred Address [address] ,[place], [place],[address] Referred Provider Specialty Gastroentero logy Referral Priority Routine General Notes Katina Winter 03:25:06 PM >received today, sent P2P Reason would like referral to pain management in [place] Diagnosis 1 Other chronic pain ( G89.29) Diagnosis 2 Lumbago with sciatic a, left side (M54.42) Diagnosis 3 History of back surg maria luz (Z98.890) Diagnosis 4 Cervical back pain w ith evidence of disc disease (M50.90) Referral Organization [facility] Family [facility] [place] Referring Provider First Name Berenice Referring Provider Last Name Leslyrbacher Referring Provider Specialty Nurse Pract itioner Referred Organization [facility] Referred Address [address] [place], [place],[address] Referred Provider Specialty Pain Medicin e Referral Priority Routine Specialty Diagnoses / Procedures Referred By Contac t Referred To Contact Radiology Diagnoses Neck pain Low back pain, unspecified back pain laterality, unspecified chronicity, unspecified whether sciatica present Procedures CT lumbar spine with contrast Elayne Luciano MD [address] [place] [address] # [address] [place] [id number] Referral ID Status Reason Start Date Expiration Date V isits Requested Visits Authorized [id number] Authorized 08/26/2023 08/25/2024 1 1 Specialty Diagnoses / Procedures Referred By Contac t Referred To Contact Radiology Diagnoses Neck pain Low back pain, unspecified back pain laterality, unspecified chronicity, unspecified whether sciatica present Procedures CT cervical spine with contrast Elayne Luciano MD [address] [place] [address] # [address] [place] [id number] Referral ID Status Reason Start Date Expiration Date V isits Requested Visits Authorized [id number] Authorized 08/26/2023 08/25/2024 1 1 Specialty Diagnoses / Procedures Referred By Contac t Referred To Contact Radiology Diagnoses Neck pain Low back pain, unspecified back pain laterality, unspecified chronicity, unspecified whether sciatica present Procedures IR myelogram 2+ regions complete Elayne Luciano MD [address] [place] [address] # [address] [place] [id number] Referral ID Status Reason Start Date Expiration Date V isits Requested Visits Authorized [id number] Pending Review 08/26/2023 08/25/2024 1 1 Specialty Diagnoses / Procedures Referred By Contac t Referred To Contact Diagnoses Lumbar radiculopathy Spinal stenosis of lumbar region with neurogenic claudication Procedures Case request operating room: INJECTION BLOCK EPIDURAL STEROID LUMBAR/SACRAL Right L 5,1 NR Jaswant Hussein, PA-C [address], [address] [place] [address] Referral ID Status Reason Start Date Expiration Date V isits Requested Visits Authorized [id number] Pending Review 05/04/2023 05/03/2024 1 1 Specialty Diagnoses / Procedures Referred By Contac t Referred To Contact Diagnoses Lumbar radiculopathy Procedures Case request operating room: INJECTION BLOCK EPIDURAL CAUDAL STEROID Renetta Elizalde, PA [address], [address] [place] [id number] Referral ID Status Reason Start Date Expiration Date V isits Requested Visits Authorized [id number] Pending Review 05/31/2023 05/30/2024 1 1 Specialty Diagnoses / Procedures Referred By Contac t Referred To Contact Diagnoses Intervertebral disc stenosis of neural canal of cervical region Procedures Case request operating room: INJECTION SPINE TRANSFORAMINAL LEFT C6, C7 N. ROOT Yumiko Elizalde, [employer] [address] [place] [address] Referral ID Status Reason Start Date Expiration Date V isits Requested Visits Authorized [id number] Pending Review 10/25/2023 10/24/2024 1 1 Chief [...] content) DATE CREATED AUTHOR 08/25/2017 [facility] DATE CREATED AUTHOR AUTHOR'S ORGANIZ ATION 08/31/2017 [facility] DATE CREATED AUTHOR AUTHOR'S ORGANIZ ATION 10/25/[address] [facility] DATE CREATED AUTHOR AUTHOR'S ORGANIZ ATION 01/07/2018 [facility] DATE CREATED AUTHOR AUTHOR'S ORGANIZ ATION 01/29/2019 [facility] DATE CREATED AUTHOR AUTHOR'S ORGANIZ ATION 07/11/2020 [facility] DATE CREATED AUTHOR AUTHOR'S ORGANIZ ATION 06/07/2022 [facility] DATE CREATED AUTHOR AUTHOR'S ORGANIZ ATION 09/08/2022 [facility] DATE CREATED AUTHOR AUTHOR'S ORGANIZ ATION 08/28/2023 [facility] DATE CREATED AUTHOR AUTHOR'S ORGANIZ ATION 08/30/2023 [facility] DATE CREATED AUTHOR AUTHOR'S ORGANIZ ATION 09/23/2023 [facility] DATE CREATED AUTHOR AUTHOR'S ORGANIZ ATION 01/29/2024 [facility] DATE CREATED AUTHOR AUTHOR'S ORGANIZ ATION 04/20/2024 [facility] Reason for Visit (unrecogniz ed section and [...] a car in the parking lot @ [facility]. Narcan 7 mg IN per EMS. Status Reason Specialty Diagnoses / Procedures Referred By Contact Referred To Contact Open Vascular Lab Diagnoses Calf swelling Calf pain Procedures [facility] DUPLEX EXTREM VENOUS,UNI OR LTD Misbah Oreilly, DPM [address] [place] [address] [facility] [address] [place] [address] Reason Comments Other , med clear for correction. Reason Comments Back Pain Hip Pain Reason [...] Member Role Status Dates Berenice Haile APRN TEAM DRIVER-C Attending Provider Act valery Team Status: Active Member Role Status Dates Berenice Haile APRN TEAM DRIVER-C Primary Care Provider Active Team Status: Inactive Member Role Status Dates Berenice Haile APRN TEAM DRIVER-C Attending Provider Act valery PHYSICIAN NO FAMILY Primary Care Provider Active Team Status: Inactive Member Role Status Dates Berenice Haile APRN TEAM DRIVER-C Primary Care Provider Active Ladarius Pitts APRN Attending Provider Active Team Status: Active Member Role Status Dates Lola Montgomery APRN TEAM DRIVER-C Primary Care Provider Active Team Status: Inactive Member Role Status Dates Johana Hansen TEAM DRIVER-C Attending Provider Active Lola Montgomery APRN TEAM DRIVER-C Primary Care Provider Active Towel Distributor Relationship Specialty Start Date End Date DanteBerenice cokerJEREMIAS [address] [place] [address] PCP - General Family Medicine 04/11/23 Towel Distributor Relationship Specialty Start Date End Date Berenice Haile TEAM DRIVER [address] [place] [address] PCP - General Family Medicine 04/11/23 Team Status: Inactive Member Role Status Dates Berenice Haile APRN TEAM DRIVER-C Attending Provider Act valery Start: March 21, 2023 End: March 21, 2023 Team Status: Active Member Role Status Dates Lola Montgomery APRN TEAM DRIVER-C Primary Care Provider Active Start: April 19, 2023 Jaimie Durand Attending Provider Active Start: April 19, 2023 Team Status: Active Member Role Status Dates Berenice Haile APRN TEAM DRIVER-C Primary Care Provider Active Start: April 282023 Jaimie Durand Attending Provider Active Start: April 28, 2023 Team Status: Inactive Member Role Status Dates Berenice Haile APRN TEAM DRIVER-C Primary Care Provider, Attending Provider Active Start: May 26, 2023 End: May 26, 2023 Team Status: Active Member Role Status Dates Lola Montgomery APRN TEAM DRIVER-C Primary Care Provider Active Start: April 19, 2023 Jaimie Durand LPN Attending Provider Active S tart: April 19, 2023 Team Status: Active Member Role Status Dates Berenice Haile APRN TEAM DRIVER-C Primary Care Provider Active Start: April 282023 Jaimie Durand LPN Attending Provider Active S tart: April 28, 2023 Team Status: Inactive Member Role Status Dates Berenice Haile APRN TEAM DRIVER-C Primary Care Provider Active Start: June 15, 2023 End: June 15, 2023 Nazario Torres DO Emergency Provider Active Start: June 15, 2023 End: June 15, 2023 Team Status: Active Member Role Status Dates Berenice Haile APRN TEAM DRIVER-C Primary Care Provider Active Start: August 15, 2023 Blake Corea DO Attending Provider Active Start : August 15, 2023 Team Status: Inactive Member Role Status Dates Berenice Haile APRN TEAM DRIVER-C Primary Care Provider, Attending Provider Active Start: October 06, 2023 End: October 06, 2023 Towel Distributor Relationship Specialty Start Date End Date Berenice Haile NP [address] [place], [place] [id number] PCP - General Family Medicine 04/11/23 Savana Espinosa PCP - NOMS Meng [facility] 09/05/23 Towel Distributor Relationship Specialty [place] [address] [place] [address] PCP - General Family Medicine 04/11/23 Towel Distributor Relationship Specialty [place] [address] [place] [address] PCP - General Family Medicine 04/11/23 Towel Distributor Relationship Specialty Start Date End Date Berenice Haile NP [address] [place] [address] [place] [address] PCP - General Family Medicine 04/11/23 Savana Espinosa PCP - NOMJak [facility] 09/05/23 Towel Distributor Relationship Specialty Start Date End Date Tere Perez APRN-[employer] [address] [place] [phone] PCP - General Nurse Practitioner 06/01/23 Towel Distributor Relationship Specialty Start Date End Date Berenice Haile APRN-TEAM DRIVER [address] [place] [address] PCP - General Nurse Practitioner 01/17/23 Towel Distributor Relationship Specialty Start Date End Date Tere Perez APRN[employer] PCP - General Nurse Practitioner 06/01/23 Towel Distributor Relationship Specialty Start Date End Date Tere Perez [employer] [address] [place] [id number] PCP - General Nurse Practitioner 06/01/23 Towel Distributor Relationship Specialty Start Date End Date Berenice Haile APRN-NP [address] [place] [address] PCP - General Nurse Practitioner 01/17/23 Towel Distributor Relationship Specialty Start Date End Date Tere Perez [employer] [address] [place] [phone] PCP - General Nurse Practitioner 06/01/23 Towel Distributor Relationship Specialty Start Date End Date Lazara BereniceGENOVEVA-TEAM DRIVER [address] [facility] [place] [address] PCP - General Nurse Practitioner 01/17/23 Towel Distributor Relationship Specialty Start Date End Date Maral HaileferGENOVEVA-TEAM DRIVER [address] [place] [address] PCP - General Nurse Practitioner 01/17/23 Towel Distributor Relationship Specialty Start Date End Date Berenice Haile APRN-TEAM DRIVER [address] [facility] [address] PCP - General Nurse Practitioner 01/17/23 Towel Distributor Relationship Specialty Start Date End Date Lazara BereniceTYLORTEAM DRIVER [address] [facility] [address] PCP - General Nurse Practitioner 01/17/23 Towel Distributor Relationship Specialty Start Date End Date Tere Perez [facility] [address] [place] [phone] PCP - General Nurse Practitioner 06/01/23 Towel Distributor Relationship Specialty Start Date End Date Tere Perez [facility] [address] [place] [address] PCP - General Nurse Practitioner 06/01/23 Towel Distributor Relationship Specialty Start Date End Date Tere Perez [facility] [address] [place] [address] PCP - General Nurse Practitioner 06/01/23 Towel Distributor Relationship Specialty Start Date End Date LazaraBereniceTYLORTEAM DRIVER [address] [place] [address] PCP - General Nurse Practitioner 01/17/23 Towel Distributor Relationship Specialty Start Date End Date CarolineBerenice hansenTYLORTEAM DRIVER [address] [facility] [place] [address] PCP - General Nurse Practitioner 01/17/23 05/31/23 Towel Distributor Relationship Specialty Start Date End Date [facility]re [facility] PCP - General Nurse Practitioner 06/01/23 Towel Distributor Relationship Specialty Start Date End Date Tere Perez [facility] [address] [place] [address] PCP - General Nurse Practitioner 06/01/23 Towel Distributor Relationship Specialty Start Date End Date Tere Perez [facility] PCP - General Nurse Practitioner 06/01/23 Towel Distributor Relationship Specialty Start Date End Date Tere Perez APRN[employer] PCP - General Nurse Practitioner 06/01/23 Towel Distributor Relationship Specialty Start Date End Date Tere Perez APRN[employer] PCP - General Nurse Practitioner 06/01/23 Towel Distributor Relationship Specialty Start Date End Date Tere Perez, [employer] PCP - General Nurse Practitioner 06/01/23 Goals [...] BE BASED ON THE PRIMARY CLINICAL RECORDS. [employer] [facility]. provides no warranty or guarantee of the accuracy or completeness of information in this document.
--- NOTE | 2024-06-02 20:26 | ED_ITS ---
HPI - Skin/Abscess/Foreign Bdy General Chief complaint: Skin/Abscess/Foreign Body Stated complaint: ABCESS LT LEG Time Seen by Provider: 06/02/24 20:16 Source: patient Mode of arrival: walk-in Limitations: no limitations History of Present Illness HPI narrative: patient presents complaining of insect bite left superior medial calf area. No fever or chills. No nausea or weakness . Has increased in size and is becoming more painful. Related Data Home Medications ?Medication ?Instructions ?Recorded ?Confirmed tizanidine 4 mg capsule (Zanaflex) 4 mg PO BID PRN muscle spasticity 11/02/22 06/02/24 calcium 600 mg (as 1 tab PO Q12H 11/09/22 06/02/24 carbonate)-vitamin D3 10 mcg (400 unit) tablet cyanocobalamin (vitamin B-12) 1,000 mcg subcut .monthly 11/09/22 06/02/24 1,000 mcg/mL injection solution eletriptan 40 mg tablet 40 mg PO .q12 H PRN migraine 11/09/22 06/02/24 headache multivitamin with folic acid 400 1 tab PO DAILY 11/09/22 06/02/24 mcg tablet (Daily-Raegan (with folic acid)) pantoprazole 40 mg tablet,delayed 40 mg PO .morning 11/09/22 06/02/24 release topiramate 200 mg tablet 200 mg PO Q12H 11/09/22 06/02/24 amitriptyline 10 mg tablet 10 mg PO QDAY 01/25/24 06/02/24 benzoyl peroxide 5 % topical gel 1 applic topical .qhs 06/02/24 06/02/24 cariprazine 1.5 mg capsule 1.5 mg PO Q24H 06/02/24 06/02/24 (Vraylar) clonidine HCl 0.1 mg tablet 0.1 mg PO QDAY 06/02/24 06/02/24 desonide 0.05 % topical cream 1 applic topical Q24H 06/02/24 06/02/24 furosemide 20 mg tablet 20 mg PO QDAY 06/02/24 06/02/24 letrozole 2.5 mg tablet 7.5 mg PO .COMPLEX 06/02/24 06/02/24 lisdexamfetamine 20 mg capsule 20 mg PO QPM 06/02/24 06/02/24 (Vyvanse) lisdexamfetamine 40 mg capsule 40 mg PO QAM 06/02/24 06/02/24 (Vyvanse) magnesium oxide 400 mg (241.3 mg 400 mg PO QDAY 06/02/24 06/02/24 magnesium) tablet mirtazapine 15 mg tablet 15 mg PO .qhs 06/02/24 06/02/24 nitrofurantoin 100 mg PO Q12H 06/02/24 06/02/24 monohydrate/macrocrystals 100 mg capsule potassium chloride 10 mEq 10 meq PO QAM 06/02/24 06/02/24 tablet,extended release(part/cryst) Previous Rx's ?Medication ?Instructions ?Recorded ibuprofen 800 mg tablet 800 mg PO Q8H PRN pain 14 days #40 12/03/22 tabs ondansetron 4 mg disintegrating 4 mg PO Q8H 5 days #15 tabs 12/03/22 tablet Allergies Allergy/AdvReac Type Severity Reaction Status Date / Time amoxicillin Allergy Severe Unknown Verified 01/25/24 00:35 cefaclor (From Ceclor) Allergy Severe Flushing Verified 01/25/24 00:35 Penicillins Allergy Unknown Verified 01/25/24 00:35 NSAIDS (Non-Steroidal AdvReac Severe Unknown Verified 01/25/24 00:35 Anti-Inflamma Review of Systems 2 ROS0 Status of ROS 10 or more systems reviewed and unremark able except as noted in history and below [facility] Medical History (Updated 06/02/24 @ 22:44 by Nirav Bazan MD) Drug overdose ?T50.901A - Poisoning by unspecified drugs, medicaments and biological substances, accidental (unintentional), initial encounter (ICD-10) Hiatal hernia ?K44.9 - Diaphragmatic hernia without obstruction or gangrene (ICD-10) S/P extracorporeal shock wave therapy ?Z98.890 - Other specified postprocedural states (ICD-10) Multiple sclerosis ?G35 - Multiple sclerosis (ICD-10) Migraine ?G43.909 - Migraine, unspecified, not intractable, without status migrainosus (ICD-10) Attention deficit hyperactivity disorder ?F90.9 - Attention-deficit hyperactivity disorder, unspecified type (ICD-10) ADD (attention deficit disorder) ?F98.8 - Other specified behavioral and emotional disorders with onset usually occurring in childhood and adolescence (ICD-10) Kidney stones ?N20.0 - Calculus of kidney (ICD-10) GERD (gastroesophageal reflux disease) ?K21.9 - Gastro-esophageal reflux disease without esophagitis (ICD-10) Sleep apnea ?G47.30 - Sleep apnea, unspecified (ICD-10) Insomnia ?G47.00 - Insomnia, unspecified (ICD-10) PTSD (post-traumatic stress disorder) ?F43.10 - Post-traumatic stress disorder, unspecified (ICD-10) Panic attacks ?F41.0 - Panic disorder [episodic paroxysmal anxiety] (ICD-10) Anxiety ?F41.9 - Anxiety disorder, unspecified (ICD-10) Rheumatoid arthritis ?M06.9 - Rheumatoid arthritis, unspecified (ICD-10) Lupus ?M32.9 - Systemic lupus erythematosus, unspecified (ICD-10) Anemia ?D64.9 - Anemia, unspecified (ICD-10) Arthritis ?M19.90 - Unspecified osteoarthritis, unspecified site (ICD-10) Back pain ?M54.9 - Dorsalgia, unspecified (ICD-10) DDD (degenerative disc disease) Osteoarthritis ?M19.90 - Unspecified osteoarthritis, unspecified site (ICD-10) Neck pain ?M54.2 - Cervicalgia (ICD-10) Fibromyalgia ?M79.7 - Fibromyalgia (ICD-10) Fusion of spine ?M43.20 - Fusion of spine, site unspecified (ICD-10) Surgical History (Updated 11/09/22 @ 11:04 by Trixie Duvall) H/O ureteroscopy ?Z98.890 - Other specified postprocedural states (ICD-10) H/O bilateral breast reduction surgery ?Z98.890 - Other specified postprocedural states (ICD-10) History of cholecystectomy ?Z90.49 - Acquired absence of other specified parts of digestive tract (ICD- 10) History of esophagogastroduodenoscopy (EGD) ?Z98.890 - Other specified postprocedural states (ICD-10) S/P epidural steroid injection ?Z92.241 - Personal history of systemic steroid therapy (ICD-10) History of spinal surgery ?Z98.890 - Other specified postprocedural states (ICD-10) History of gastric bypass ?Z98.84 - Bariatric surgery status (ICD-10) Family History (Updated 11/09/22 @ 11:21 by Trixie Duvall) Other Drug overdose Family history of MS (multiple sclerosis) Family history of diabetes mellitus Family history of emphysema Family history of hypertension Family history of myocardial infarction Family history of stroke Social History (Updated 11/09/22 @ 10:52 by Trixie Duvall) Within the past year, how often did you have a drink containing alcohol: never Score interpretation: A score less than 3 is consistent with normal alcohol consumption. Do you use any of these nicotine containing products: vaping products Nicotine containing products detail: mercy Non-prescribed substance use: denies use Previous occupational history: disabled Highest level of school completed/degree received: high school graduate Little interest or pleasure in doing things: not at all Feeling down, depressed, or hopeless: not at all Exam Constitutional Vital Signs, click to edit/add: Last Vital Signs Temp 98.2 F 06/02/24 20:10 Pulse 110 H 06/02/24 20:10 Resp 18 06/02/24 20:10 BP 132/93 H 06/02/24 20:10 Pulse Ox 96 06/02/24 20:10 Common normals: no apparent distress, average body habitus, oriented x3, no limitations, healthy appearing, alert and well nourished [facility] Common normals: normocephalic and head/scalp atraumatic Eye Common normals: EOMs intact bilaterally and conjunctivae normal Respiratory Common normals: normal respiratory effort, no retractions and no use of accessory muscles Cardio Rate: tachycardic Extremity Extremity image (front): 2 1. indurated nonerythematous , nonfluctuant abscess. measures about 4-5 cm. very firm . no surrounding red streaks Neuro Common normals: oriented x3, CN's II-XII intact bilaterally, moves all extremities, no focal motor deficits and no sensory deficits noted Psych Appearance: grossly normal Course Vital Signs Vital signs: Vital Signs Temperature 98.2 F 06/02/24 20:10 Pulse Rate 110 H 06/02/24 20:10 Respiratory Rate 18 06/02/24 20:10 Blood Pressure 132/93 H 06/02/24 20:10 Pulse Oximetry 96 06/02/24 20:10 Temperature 98.2 F 06/02/24 20:10 Pulse Rate 110 H 06/02/24 20:10 Respiratory Rate 18 06/02/24 20:10 Blood Pressure 132/93 H 06/02/24 20:10 Pulse Oximetry 96 06/02/24 20:10 MDM - Skin/Abscess/Foreign Bdy MDM Narrative Medical decision making narrative: patient presents with abscess left calf for past week. It is indurated and not fluctuant . No associated erythema. no systemic symptoms. WBC normal. Normal anion gap. Does have elevation of CRP. Clinically I don't think she requires I & D at this point as it is indurated/firm. Not pointing or fluctuant. Given dose of IV clindamycin and close follow up recommended Lab Data Labs: Lab Results 06/02/24 Range/Units 21:05 WBC 7.9 (4.0-11.0) 10^3/uL RBC 3.89 L (4.20-5.40) 10^6/uL Hgb 11.5 L (12.0-16.0) g/dL Hct 34.9 L (36.0-48.0) % MCV 89.7 (81.0-99.0) fL MCH 29.6 (26.7-34.0) pg MCHC 33.0 (29.9-35.2) g/dL RDW 12.8 (11.0-15.0) % Plt Count 261 (150-450) 10^3/uL MPV 10.5 (9.5-13.5) fL Neut % (Auto) 53.1 (43.0-75.0) % Lymph % (Auto) 32.4 (20.5-60.0) % Harrison % (Auto) 8.1 (1.7-12.0) % Eos % (Auto) 5.7 (0.9-7.0) % Baso % (Auto) 0.4 (0.2-2.0) % Neut # (Auto) 4.2 (1.4-6.5) 10^3/uL Lymph # (Auto) 2.6 (1.2-3.8) 10^3/uL Harrison # (Auto) 0.6 (0.3-0.8) 10^3/uL Eos # (Auto) 0.5 (0.0-0.7) 10^3/uL Baso # (Auto) 0.0 (0.0-0.1) 10^3/uL Abs Immat Gran (auto) 0.02 (0.00-0.03) 10^3/uL Imm/Tot Granulo (auto) 0.3 (0.0-0.5) % Sodium 143 (136-145) mmol/L Potassium 3.6 (3.5-5.1) mmol/L Chloride 105 (98-107) mmol/L Carbon Dioxide 26.4 (21.0-32.0) mmol/L Anion Gap 15.2 BUN 18.0 (7.0-18.0) mg/dL Creatinine 0.99 (0.55-1.02) mg/dL Est GFR ( Amer) >60 (>=60 mL/min/1.73m^2) Est GFR (Non-Af Amer) >60 (>=60 mL/min/1.73m^2) BUN/Creatinine Ratio 18.2 Glucose 74 (74-106) mg/dL Calcium 9.0 (8.5-10.1) mg/dL C-Reactive Protein 1.26 H (<=0.50) mg/dL Discharge Plan Discharge Chief Complaint: Skin/Abscess/Foreign Body Clinical Impression: Abscess of skin or subcutaneous tissue Patient Disposition: Home, Self-Care Prescriptions / Home Meds: No Action calcium carbonate-vitamin D3 600 mg-10 mcg (400 unit) tablet 1 tab PO Q12H cyanocobalamin (vitamin B-12) 1,000 mcg/mL solution 1,000 mcg subcut .monthly eletriptan 40 mg tablet 40 mg PO .q12 H PRN (Reason: migraine headache) multivitamin with folic acid [Daily-Raegan (with folic acid)] 400 mcg tablet 1 tab PO DAILY pantoprazole 40 mg tablet,delayed release (DR/EC) 40 mg PO .morning topiramate 200 mg tablet 200 mg PO Q12H ibuprofen 800 mg tablet 800 mg PO Q8H PRN (Reason: pain) 14 Days Qty: 40 0RF ondansetron 4 mg tablet,disintegrating 4 mg PO Q8H 5 Days Qty: 15 0RF benzoyl peroxide 5 % gel 1 applic TOPICAL .qhs Vraylar 1.5 mg capsule 1.5 mg PO Q24H clonidine HCl 0.1 mg tablet 0.1 mg PO QDAY desonide 0.05 % cream 1 applic TOPICAL Q24H furosemide 20 mg tablet 20 mg PO QDAY letrozole 2.5 mg tablet 7.5 mg PO .COMPLEX Rx Instructions: 7.5 mg orally; on days 3-5 of cycle lisdexamfetamine [Vyvanse] 20 mg capsule 20 mg PO QPM lisdexamfetamine [Vyvanse] 40 mg capsule 40 mg PO QAM magnesium oxide 400 mg (241.3 mg magnesium) tablet 400 mg PO QDAY mirtazapine 15 mg tablet 15 mg PO .qhs nitrofurantoin monohyd/m-cryst 100 mg capsule 100 mg PO Q12H potassium chloride 10 mEq tablet,ER particles/crystals 10 meq PO QAM tizanidine [Zanaflex] 4 mg capsule 4 mg PO BID PRN (Reason: muscle spasticity) amitriptyline 10 mg tablet 10 mg PO QDAY Print Language: Mauritanian Instructions: Abscess (ED) Additional Instructions: have abscess rechecked tomorrow or tuesday Referrals: Tere Perez FIREARMS INSPECTOR [Primary Care Provider] - 1 week
[2024-06-02] MEDS: 0.9 % SODIUM CHLORIDE 1,000 ML 999 ML IV (21:17)
[2024-06-02] MEDS: FENTANYL CITRATE/PF 100 MCG/2 ML VIAL 50 MCG IV (21:19)
[2024-06-02] MEDS: CLINDAMYCIN PHOSPHATE/D5W 900 MG/50 ML PREMIX 100 MG IV (21:22)
[2024-06-02 21:31] LABS: Basophils Percent Auto 0.4 % (0.2-2.0); Eosinophils Absolute Auto 0.5 10^3/uL (0.0-0.7); Eosinophils Percent Auto 5.7 % (0.9-7.0); Hematocrit 34.9 % (36.0-48.0); Hemoglobin 11.5 g/dL (12.0-16.0); Immature Granulocytes Abs Auto 0.02 10^3/uL (0.00-0.03); Immature Granulocytes Pct Auto 0.3 % (0.0-0.5); Lymphocytes Absolute Auto 2.6 10^3/uL (1.2-3.8); Lymphocytes Percent Auto 32.4 % (20.5-60.0); Mean Corpuscular Hemoglobin 29.6 pg (26.7-34.0); Mean Corpuscular Volume 89.7 fL (81.0-99.0); Mean Platelet Volume 10.5 fL (9.5-13.5); Monocytes Absolute Auto 0.6 10^3/uL (0.3-0.8); Monocytes Percent Auto 8.1 % (1.7-12.0); Neutrophils Absolute Auto 4.2 10^3/uL (1.4-6.5); Neutrophils Percent Auto 53.1 % (43.0-75.0); Platelet Count 261 10^3/uL (150-450); Red Blood Count 3.89 10^6/uL (4.20-5.40); Red Cell Distribution Width 12.8 % (11.0-15.0); White Blood Count 7.9 10^3/uL (4.0-11.0)
[2024-06-02 21:40] LABS: Anion Gap 15.2; BUN Creatinine Ratio 18.2; C Reactive Protein 1.26 mg/dL (<=0.50); Carbon Dioxide 26.4 mmol/L (21.0-32.0); Chloride 105 mmol/L (98-107); Estimated GFR (African America >60 (>=60 mL/min/1.73m^2); Estimated GFR (Non-African Ame >60 (>=60 mL/min/1.73m^2); Glucose 74 mg/dL (74-106); Potassium 3.6 mmol/L (3.5-5.1); Sodium 143 mmol/L (136-145)
[2024-06-02 22:47] VITALS: BP 105/67; PULSE 88; O2SAT 100
== END 2024-06-02 23:04 | disposition home or self-care (01) ==
PROVIDERS: Emergency Provider Internal Medicine; PCP Nurse Practitioner
DX: L02.416 Cutaneous abscess of left lower limb (principal); F17.290 Nicotine dependence, other tobacco product, uncomplicated; Z90.49 Acquired absence of other specified parts of digestive tract; Z98.84 Bariatric surgery status
CPT/HCPCS: 36415; 80048; 85025; 86140; 96365; 96375; 99284; J0736; J3010

== ENCOUNTER 2024-06-05 22:24 | Emergency (ER) | payer MEDICAID, SELFPAY ==
[2024-06-05] VITALS (12 sets, daily range): BP systolic 115–120; BP diastolic 80–87; PULSE 89; TEMP 36.9; O2SAT 97–100; BMI 21.1
--- OUTSIDE RECORDS SUMMARY | 2024-06-05 22:31 | XMS_ITS | CCD ---
Author Organization [facility] Care Team Providers Care Bung Sewer Name Role Phone CHANO FRANKLIN Unavailable Unavailable [...] Primary Care Provider JENNIFER WHALEY Attending Unavailable AKTTY ROSANA M Primary Care Unavailable KATTY ROSANA M Primary Care Unavailable WAYLON MONTOYA Attending Unavailable Katty, Rosana Primary Care Provider Katty IRINA, Rosana Primary Care Provider [phone] KATTY, ROSANA Primary Care Unavailable KATTY, ROSANA Referring Unavailable ALEYDA GOMEZ Admitting Unavailable ALEYDA GOMEZ Attending Unavailable Katty TANK TRUCK OPERATOR - IRINA Rosana M Primary Care Provider Agus Madera Unavailable Liz Billingsley Unavailable ROSALIA Killian, DR SUTTON Admitting Unavailryne LINDSEY ., DR SUTTON Attending Unavailabl e AICHHOLZ, ASSET MANAGER TERE Primary Care Unavailable DR LESLEY HAWKINS Consulting Unavailabl e AICHHOLZ, ASSET MANAGER TERE Admitting Unavailable AICHHOLZ, ASSET MANAGER TERE Attending Unavailable AICHHOLZ, ASSET MANAGER TERE Primary Care Unavailable AICHHOLZ, ASSET MANAGER TERE Consulting Unavailable AICHHOLZ, ASSET MANAGER TERE Admitting Unavailable AICHHOLZ, ASSET MANAGER TERE Attending Unavailable AICHHOLZ, ASSET MANAGER TERE Primary Care Unavailable AICHHOLZ, ASSET MANAGER TERE Consulting Unavailable DR Arthur MADERA Admitting Unavailable DR Arthur MADERA Attending Unavailable AICHHOLZ, ASSET MANAGER TERE Primary Care Unavailable BRIGIDA RAHMAN Attending Unavailable SILVESTRE PHIPPS Primary Care Unavailryne e Berenice Haile Unavailable GENOVEVA Haile Attending Provider GENOVEVA Haile Attending Provider [phone] NO FAMILY, PHYSICIAN Primary Care Provider Unava ilable GENOVEVA Haile Primary Care Provider GENOVEVA Pitts Attending Provider Ladarius Pitts Unavailable GENOVEVA Haile Primary Care Provider GENOVEVA Pitts Attending Provider EVANGELINA Hansen Attending Provider GENOVEVA Montgomery Primary Care Provider [phone] Berenice Haile NP Primary Care Provider GENOVEVA Haile Primary Care Provider DO Nazario Torres Emergency Provider BERENICE HAILE Referring Unavailable DANTEACHEBERENICE Hansen Primary Care Unavailable BERENICE HAILE Referring Unavailable DANTEACHEBERENICE aHnsen Primary Care Unavailable ELAYNE LUCIANO Attending Unavailable [...] Unavailab le Johan Enriquez Attending Unavailab le [facility], [facility] [place] Primary Care Unavailable Aichholz TANK TRUCK OPERATOR-ASSET MANAGER, [facility] Primary Care Provider Rohrbacher TANK TRUCK OPERATOR-PROOFING MACHINE OPERATOR, [facility] [place] Primary Care [facility] er Aicholz TANK TRUCK OPERATOR-ASSET MANAGER, [facility] Primary Care Provider JASWANT HUSSEIN Attending Unavailable LESLYRBACHER, BERENICE Referring Unavailable [facility], [facility] Primary Care Unavailable ANUP BUTLER Attending Unavailable ANUP BUTLER E Referring Unavailable ROHRBACHER, [facility] Primary Care Unavailable PAGE ANUP E Admitting Unavailable BUTLERANUP KEMP Attending Unavailable ROHRBACHER, BERENICE Referring Unavailable ROHRBACHER, [facility] Primary Care Unavailable LAITH BECK Attending Unavailable ROHRBACHER, [facility] Primary Care Unavailable RENETTA ELIZALDE Attending Unavailable ROHRBACHER, BERENICE Referring Unavailable ROHRBACHER, [facility] Primary Care Unavailable KYLAH AMADO Attending Unavailable [...] AICHHOLZ, TERE J Primary Care Unavailable YUMIKO ELIZLADE Attending Unavailable AICHHOLZ, TERE Wayne Referring Unavailable [...] Primary Care Unavailable Berenice Dempsey Primary Care [facility] er Ana TOMAS-Tere AREVALO Primary Care Provider Allergies Allergy Classification Reported Allergen(s) Allergy Type Date of Onset Reaction(s) Facility Acetaminophen / Codeine (1 source) Acetaminophen / Codeine; Translations: [ACETAMINOPHEN-CODE INE] Drug Allergy 019 [facility] Repository Cephalosporins (antibiotic) (3 sources) Cefaclor; Translations: [CEPHALOSPORINS] Drug Allergy 015 [facility] Repository NSAIDs (2 sources) NSAIDs; Translations: [IBUPROFEN] Drug Allergy 016 [facility] Repository Opioid Agonists (2 sources) fentaNYL; Translations: [CODEINE] Drug Allergy 017 Fentanyl [facility] Repository Penicillins (antibiotic) (7 sources) Penicillins; Translations: [AMOXICILLIN] Drug Allergy 015 Shock [facility] Repository Sulfamethoxazole / Trimethoprim (1 source) Sulfamethoxazole / Trimethoprim Drug Allergy 020 Skin Rashes [facility] Work Phone: Unclassified (1 source) TYLENOL CODEINE #3; Translations: [TYLENOL CODEINE #3] Propensity to adverse reactions (disorder) 015 [facility] Repository (20 sources) amoxicillin; Translations: [amoxicillin] Drug Allergy 017 [facility], Unknown, Unknown Reaction [facility] Repository (20 sources) ampicillin; Translations: [Ampicillin] Drug Allergy [facility] (20 sources) Penicillins; Translations: [PENICILLINS] Allergy to substance (disorder) 013 Anaphylaxis, Shock, Hives, Rash [facility] (20 sources) Vespid (bees, hornets, wasps, yellow jackets); Translations: [Vespid (bees, hornets, wasps, yellow jackets)] Allergy to substance (disorder) [facility] (6 sources) -No Known Food Allergies Allergy to substance (disorder) [facility] (1 source) penicillin; Translations: [PENICILLIN] Drug Allergy 018 AOF [facility] Repository (4 sources) amoxicillin; Translations: [amoxicillin] Drug Allergy [facility] (4 sources) ampicillin; Translations: [Ampicillin] Drug Allergy [facility] (20 sources) Amoxicillin Drug Allergy 015 Anaphylaxis, Rash, Hives [place], [place] (20 sources) Cefaclor; Translations: [CEFACLOR] Drug Allergy 015 Hives, Anaphylaxis, Other (See Comments) [place] (20 sources) Codeine; Translations: [CODEINE] Drug Allergy 015 Hives, Rash [facility], [place] (16 sources) NSAIDs; Translations: [NSAIDS (Non-Steroidal Anti-Inflammatory Drug)] Allergy to substance 016 [facility] Repository (10 sources) fentaNYL Drug Allergy Fentanyl [facility] Work Phone: (9 sources) Sulfamethoxazole / Trimethoprim Drug Allergy 020 Skin Rashes [facility] Work Phone: (16 sources) Cefaclor; Translations: [Ceclor] Drug Allergy 013 Unknown [facility] Repository (20 sources) Penicillin G Drug Allergy 018 Anaphylaxis, Rash, Unknown [place] Other (2 sources) Amoxicillin Drug Allergy [facility] Repository (2 sources) Codeine Drug Allergy [facility] Repository (2 sources) Acetaminophen Drug Allergy Unknown Reaction [facility] (14 sources) Latex; Translations: [latex] Allergy to substance Unknown Reaction, Rash [facility] (20 sources) Acetaminophen / Codeine; Translations: [ACETAMINOPHEN-CODE INE] Drug Allergy 019 Hives [facility] Work Phone: (9 sources) Non-steroidal anti-inflammatory agent Drug Allergy 023 [facility] (7 sources) Wound Dressing Adhesive Drug Allergy [facility] (1 source) Amoxicillin Drug Allergy [facility] Repository (1 source) Cefaclor Drug Allergy [facility] Repository (1 source) Codeine Drug Allergy [facility] Repository (1 source) Penicillin Drug Allergy [facility] Repository Medications Current Medications Medication Drug [...] Start: 10-15-2018 take 2 tablets by [facility] eight hours as needed for [...] - 02/04/2020 Provider: take 1 capsule by [facility] every twenty-four hours Adderall XR 20 MG [...] CNP Start: 12-09-2016 take 2 tablets by [facility] once daily, then take 1 tablet by [...] Provider: Start: 04-01-2018 End: 04-01-2018 CYPROHEPTADINE 4MG [facility] 03/08 - 04/01/2018 Provider: take 1 tablet [...] Provider: Start: 11-24-2017 take 1 tablet by enriuqeta th once daily ferrous sulfate 325 mg [...] Start: 12-01-2022 take 1 capsule by [facility] at bedtime lisdexamfetamine (VYVANSE) 30 mg [...] Pack 01/04/2019 - 01/10/2019 Provider: Primitivo Lujan ASSET MANAGER mirtazapine 15 mg oral tablet (12 sources) [...] - 07/16/2019 Provider: Rosana Alaniz CNP nystatin 448195 unt/ml / triamcinolone acetonide 1 mg/ml topical cream (20 sources) Polyene Antifungal, Corticosteroid Start: 11-20-2018 End: 02-20-2019 Nystatin-Triamcinolone 273034-1.1 UNIT/GM-% External Cream 02/20/2019 Provider: Rosana Alaniz [...] Start: 04-01-2018 End: 02-04-2020 ONDANSETRON 4 mg [facility] 2018 - 02/04/2020 Provider: Start: 04-01-2018 End: 04-01-2018 ONDANSETRON 4 mg [facility] 2018 - 04/01/2018 Provider: take 1 tablet [...] 04-01-2018 End: 02-04-2020 POTASSIUM CHLORIDE 20 mEq MA SC 04/01/2018 - 02/04/2020 Provider: Start: 04-01-2018 End: 04-01-2018 POTASSIUM CHLORIDE 20 mEq MA SC 04/01/2018 - 04/01/2018 Provider: Start: 07-14-2017 End: 02-04-2020 POTASSIUM CHLORIDE 20 mEq MA SC 07/14/2017 - 02/04/2020 Provider: Start: 07-14-2017 End: 07-14-2017 POTASSIUM CHLORIDE 20 mEq MA SC 07/14/2017 - 07/14/2017 Provider: Start: 07-14-2017 [...] Start: 04-01-2018 End: 02-04-2020 LYRICA 225 MG [facility] 02/04/2020 Provider: Start: 04-01-2018 End: 04-01-2018 LYRICA 225 MG [facility] - 04/01/2018 Provider: Start: 04-01-2018 End: 04-01-2018 [...] Start: 08-16-2017 End: 02-04-2020 VALACYCLOVIR 500 mg [facility] 02/2018 - 02/04/2020 Provider: Start: 08-16-2017 End: 08-16-2017 VALACYCLOVIR 500 mg [facility] 02/2018 - 08/16/2017 Provider: Start: 04-24-2016 End: [...] End: 04-01-2018 CYANOCOBALAMIN (VITAMIN B-12 ) 1,000MCG/ML [facility] 04/01/2018 - 04/01/2018 Provider: Start: 02-16-2018 take [...] th twice daily as needed for headache wvqpvfcvfx-zxyyzkqndedjz-txdplkya (FIORICET, ESGIC) 50-325-40 MG per tablet Take [...] oral solution (17 sources) alpha-Adrenergic Agonist, Uncompetitive D-fhbncr-I-aspartate Receptor Antagonist, Sigma-1 Agonist Start: 03-29-2017 take [...] 08-18-2017 End: 08-18-2017 BROMFED DM 2-30-10MG/5 ML MA SC 08/18/2017 - 08/18/2017 Provider: Start: 03-29-2017 End: 02-04-2020 BROMFED DM 2-30-10 MG/5 ML M ISC 03/29/2017 - 02/04/2020 Provider: Start: 03-29-2017 End: 03-29-2017 BROMFED DM 2-30-10 MG/5 ML M ISC 03/29/2017 - 03/29/2017 Provider: Start: 03-29-2017 End: 03-29-2017 BROMFED DM 2-30-10MG/5 ML MA SC 03/29/2017 - 03/29/2017 Provider: Start: 01-06-2017 End: 02-04-2020 BROMFED DM 2-30-10 MG/5 ML M ISC 01/06/2017 - 02/04/2020 Provider: Start: 01-06-2017 End: 01-06-2017 BROMFED DM 2-30-10 MG/5 ML M ISC 01/06/2017 - 01/06/2017 Provider: Start: 01-06-2017 End: 01-06-2017 BROMFED DM 2-30-10MG/5 ML MA SC 01/06/2017 - 01/06/2017 Provider: Calcium (20 [...] WITH VITAMIN D3 600 mg(1,500mg) -400 UNIT [facility] 04/01/2018 - 02/04/2020 Provider: Start: 11-24-2017 End: 02-04-2020 CALCIUM 600 WITH VITAMIN D3 600 mg(1,500mg) -400 UNIT [facility] 11/24/2017 - 02/04/2020 Provider: CALCIUM 600 WITH VITAMIN D3 600 mg(1,500mg)-400 UNIT MISC (6 sources) Start: 04-01-2018 End: 04-01-2018 CALCIUM 600 WITH VITAMIN D3 600 mg(1,500mg)-400 UNIT [facility] 04/01/2018 - 04/01/2018 Provider: Start: 11-24-2017 End: 11-24-2017 CALCIUM 600 WITH VITAMIN D3 600 mg(1,500mg)-400 UNIT [facility] 11/24/2017 - 11/24/2017 Provider: calcium carbonate 1500 [...] Start: 08-16-2017 End: 02-04-2020 ZYRTEC 10 mg [facility] 08/16/2017 - 02/04/2020 Provider: Start: 08-16-2017 End: 08-16-2017 ZYRTEC 10 mg [facility] 08/16/2017 - 08/16/2017 Provider: Clindamycin (20 sources) [...] Start: 04-01-2018 End: 04-01-2018 DEXTROAMPHETAMINE-AMPHETAMIN E 30MG [facility] 04/01/2018 - 04/01/2018 Provider: diazePAM 5 mg [...] Start: 04-01-2018 End: 02-04-2020 DULOXETINE 60 MG [facility] 04/01/2018 - 02/04/2020 Provider: Start: 04-01-2018 End: 04-01-2018 DULOXETINE 60 MG [facility] 2018 - 04/01/2018 Provider: Start: 04-01-2018 End: 04-01-2018 DULOXETINE 60MG [facility] 019 - 04/01/2018 Provider: take 1 capsule by [facility] once daily duloxetine 60 mg oral [...] Glucose Scanning Reade r (Freestyle Vy 2 [place]) misc (3 sources) Start: 04-28-2023 End: 10-06-2023 Flash Glucose Scanning Reade r (Freestyle Yv 2 [place]) misc Discontinued 0 .Route 1 April 28, 2023 1:00am October 06, 2023 1:18pm As directed Start: 04-28-2023 Flash Glucose Scanning [place] (Freestyle Vy 2 [place]) misc Active 0 .Route 1 April 28, [...] needed for Pain. 0 Active lactobacillus acidophilus [id number] unt oral capsule (9 sources) Start: 02-16-2018 take 1 capsule by mouth once daily Probiotic 10 billion cell oral capsule 02/16/2018 take 1 capsule by oral route daily Start: 02-01-2017 take 1 capsule by [facility] once daily Probiotic 10 billion cell oral capsule 02/01/2017 take 1 capsule by oral route daily loperamide hydrochloride 2 mg oral tablet (20 sources) Opioid Agonist Start: 01-06-2017 End: 02-04-2020 Imodium A-D 2 MG OR TABS 01/06/2017 - 02/04/2020 Provider: MAXALT-RAIL WALKER 10 MG MISC (20 sources) Start: 01-25-2018 End: 01-25-2018 MAXALT-RAIL WALKER 10 MG MISC 01/25/2018 - 01/25/2018 Provider: Start: 08-16-2017 End: 08-16-2017 MAXALT-RAIL WALKER 10 MG MISC 2017 - 08/16/2017 Provider: Start: 05-20-2017 End: 05-20-2017 MAXALT-RAIL WALKER 10 MG MISC 2017 - 05/20/2017 Provider: Start: 02-01-2017 End: 02-01-2017 MAXALT-RAIL WALKER 10 MG MISC 2016 - 02/01/2017 Provider: MAXALT-RAIL WALKER 10 MG MISC (10 sources) Start: 01-25-2018 End: 02-04-2020 MAXALT-RAIL WALKER 10 MG MISC 2017 - 02/04/2020 Provider: Start: 08-16-2017 End: 02-04-2020 MAXALT-RAIL WALKER 10 MG MISC 2017 - 02/04/2020 Provider: Start: 05-20-2017 End: 02-04-2020 MAXALT-RAIL WALKER 10 MG MISC 2017 - 02/04/2020 Provider: Start: 02-01-2017 End: 02-04-2020 MAXALT-RAIL WALKER 10 MG MISC 2016 - 02/04/2020 Provider: MAXALT-RAIL WALKER 10MG MISC (15 sources) Start: 01-25-2018 End: 01-25-2018 MAXALT-RAIL WALKER 10MG MISC 018 - 01/25/2018 Provider: Start: 08-16-2017 End: 08-16-2017 MAXALT-RAIL WALKER 10MG MISC 018 - 08/16/2017 Provider: Start: 05-20-2017 End: 05-20-2017 MAXALT-RAIL WALKER 10MG MISC 018 - 05/20/2017 Provider: Start: 02-01-2017 End: 02-01-2017 MAXALT-RAIL WALKER 10MG MISC 017 - 02/01/2017 Provider: Medical Compression Stocking s Miscellaneous (11 sources) Start: 01-04-2019 End: 02-03-2019 Medical Compression Stockings Miscellaneous 01/04/2019 - 02/03/2019 Provider: Primitivo Lujan CNP Medical Compression Stocking s Miscellaneous (2 sources) Start: 01-04-2019 End: 02-03-2019 Medical Compression Stockings Miscellaneous 01/04/2019 - 02/03/2019 Provider: Primitivo Lujan ASSET MANAGER 1 ml medroxyPROGESTERone acetate 150 mg/ml injection (20 sources) Progestin Start: 05-05-2018 Depo-Provera 1 50 MG/ML IM SUSP 01/04/2019 Primitivo Huffmankamilah ASSET MANAGER Start: 04-01-2018 End: 02-04-2020 DEPO-PROVERA MISC 04/01/2018 [...] TABS 01/19/2018 - 02/04/2020 Provider: polymyxin b 78691 unt/ml / trimethoprim 1 mg/ml ophthalmic solution [...] - 02/04/2020 Provider: PROBIOTIC 10 billion CELL MA SC (20 sources) Start: 02-16-2018 End: 02-16-2018 PROBIOTIC 10 billion CELL MISC 02/16/2018 - 02/16/2018 Provider: Start: 02-01-2017 End: 02-01-2017 PROBIOTIC 10 billion CELL MA SC 02/01/2017 - 02/01/2017 Provider: PROBIOTIC 10 billion CELL MA SC (4 sources) Start: 02-16-2018 End: 02-04-2020 PROBIOTIC 10 billion CELL MA SC 02/16/2018 - 02/04/2020 Provider: Start: 02-01-2017 End: 02-04-2020 PROBIOTIC 10 billion CELL MA SC 02/01/2017 - 02/04/2020 Provider: PROBIOTIC 10 [...] Start: 05-05-2018 take 1 capsule by [facility] every twenty-four hours Propranolol HCl ER 160MG Oral Capsule Extended Release 24 Hour 05/05/2018 Provider: Start: 04-01-2018 End: 02-04-2020 PROPRANOLOL 160 MG [facility] 04/01/2018 - 02/04/2020 Provider: Start: 04-01-2018 End: 04-01-2018 PROPRANOLOL 160 MG [facility] 04/01/2018 - 04/01/2018 Provider: Start: 04-01-2018 End: 04-01-2018 PROPRANOLOL 160MG [facility] 04/01 - 04/01/2018 Provider: Start: 11-24-2017 take 1 capsule by mouth once d aily propranolol 160 mg oral capsule,extended release 24 hr 11/24/2017 take 1 capsule (160 mg) by oral route once daily Start: 11-24-2017 End: 02-04-2020 PROPRANOLOL 160 MG [facility] 11/24/2017 - 02/04/2020 Provider: Start: 11-24-2017 End: 11-24-2017 PROPRANOLOL 160 MG [facility] 11/24/2017 - 11/24/2017 Provider: Start: 11-24-2017 End: 11-24-2017 PROPRANOLOL 160MG [facility] 11/24 - 11/24/2017 Provider: Start: 05-26-2017 take 1 capsule by mouth once d aily propranolol 160 mg oral capsule,extended release 24 hr 05/26/2017 take 1 capsule (160 mg) by oral route once daily Start: 05-26-2017 End: 02-04-2020 PROPRANOLOL 160 MG [facility] 05/26/2017 - 02/04/2020 Provider: Start: 05-26-2017 End: 05-26-2017 PROPRANOLOL 160 MG [facility] 05/26/2017 - 05/26/2017 Provider: Start: 05-26-2017 End: 05-26-2017 PROPRANOLOL 160MG [facility] 05/26 - 05/26/2017 Provider: take 1 tablet [...] 01/21/2019 Provider: Rosana Alaniz CNP Start: 01-25-2018 Maxalt-RAIL WALKER 10 mg oral tablet,disintegrating 01/25/2018 DISSOLVE 1 TABLET (10 MG) ON TOP OF THE TONGUE, THEN SWALLOW BY ORAL ROUTE ONCE, MAY REPEAT IN 2 HOURS, NOT AT SAME TIME IMITREX Start: 08-16-2017 Maxalt-RAIL WALKER 10 mg oral tablet,disintegrating 08/16/2017 dissolve 1 tablet (10 mg) on top of the tongue, then swallow by oral route once, may repeat in 2 hours, not at same time as imitrex Start: 08-16-2017 Maxalt-RAIL WALKER 10 mg oral tablet,disintegrating 08/16/2017 dissolve 1 [...] Start: 12-22-2017 End: 12-22-2017 VITAMIN B-12 5,000MCG [facility] 12/22/2017 - 12/22/2017 Provider: Start: 08-16-2017 End: 08-16-2017 VITAMIN B-12 5,000MCG [facility] 0 08/16/2017 - 08/16/2017 Provider: vortioxetine 10 [...] ALL PROGESTERONEon 5 PROGESTERONE 4.0 ng/mL . [facility] Comment on above: Follicular phase 0.1 - 0.9 Luteal phase 1.8 - 23.9 Ovulation phase 0.1 - 12.0 First trimester 11.0 - 44.3 Second trimester 25.4 - 83.3 Third trimester 58.7 - 214.0 Postmenopausal 0.0 - 0.1 Performed at: [address] [id number] Inclusion Paraeducator: Sea Diaz PhD, Phone: [phone] [facility] PROGESTERONEon 5 PROGESTERONE 10.9 ng/mL . [facility] Comment on above: Follicular phase 0.1 - 0.9 Luteal phase 1.8 - 23.9 Ovulation phase 0.1 - 12.0 First trimester 11.0 - 44.3 Second trimester 25.4 - 83.3 Third trimester 58.7 - 214.0 Postmenopausal 0.0 - 0.1 Performed at: [employer] [id number] Inclusion Paraeducator: Sea Diaz PhD, Phone: [phone] [facility] TBH PREG QUANT HCGon 025 HCG QUANTITATIVE <1 mIU/mL [facility] Comment on above: 5-50 0.2-1 WEEK 50-500 1-2 WEEKS 100-5,000 2-3 WEEKS 500-10,000 3-4 WEEKS 1,000-50,000 4-5 WEEKS 10,000-100,000 5-6 WEEKS 15,000-200,000 6-8 WEEKS 10,000-100,000 2-3 MONTHS [facility] [employer] ALL PROGESTERONEon PROGESTERONE 4.1 ng/mL . [facility] Comment on above: Follicular phase 0.1 - 0.9 Luteal phase 1.8 - 23.9 Ovulation phase 0.1 - 12.0 First trimester 11.0 - 44.3 Second trimester 25.4 - 83.3 Third trimester 58.7 - 214.0 Postmenopausal 0.0 - 0.1 Performed at: [employer] [id number] Inclusion Paraeducator: Sea Diaz PhD, Phone: [phone] [facility] Epoxy Progesterone [Mass/Vol]on PROGESTERONE 0.2 ng/mL [facility] Comment on above: Result Comment: FEMALES: 1st Tri: 4.7-50.7 ng/ml 2nd Tri: 19.4-45.3 ng/ml MENSTRUATING FEMALES: Follicular: 0.3-1.5 ng/ml Mid Luteal: 5.2-18.6 ng/ml Post Yessy: <0.1-0.8 ng/ml Performed By: #### C BCA, 02140-2, 74637-6, 5643-2, CMP, 30437-2, 1338-7, 2157-6, 4024-6, 60316-2, 3040-3 #### [facility] ([id number]) [address] [place] [address], [place] [address] ALL PROGESTERONEon 4 PROGESTERONE 0.3 ng/mL . [facility] Comment on above: Follicular phase 0.1 - 0.9 Luteal phase 1.8 - 23.9 Ovulation phase 0.1 - 12.0 First trimester 11.0 - 44.3 Second trimester 25.4 - 83.3 Third trimester 58.7 - 214.0 Postmenopausal 0.0 - 0.1 Performed at: [place] [employer] [id number] Inclusion Paraeducator: Sea Diaz PhD, Phone: [facility] [employer] ALL PROGESTERONEon 4 PROGESTERONE 3.2 ng/mL . [facility] Comment on above: Follicular phase 0.1 - 0.9 Luteal phase 1.8 - 23.9 Ovulation phase 0.1 - 12.0 First trimester 11.0 - 44.3 Second trimester 25.4 - 83.3 Third trimester 58.7 - 214.0 Postmenopausal 0.0 - 0.1 Performed at: [place] [employer] [id number] Inclusion Paraeducator: Sea Diaz PhD, Phone: [employer] [facility] [place] ALL PROGESTERONEon - 4 PROGESTERONE 10.5 ng/mL . [facility] Comment on above: Follicular phase 0.1 - 0.9 Luteal phase 1.8 - 23.9 Ovulation phase 0.1 - 12.0 First trimester 11.0 - 44.3 Second trimester 25.4 - 83.3 Third trimester 58.7 - 214.0 Postmenopausal 0.0 - 0.1 Performed at: [place] [employer] [id number] Inclusion Paraeducator: Sea Diaz PhD, Phone: [employer] [facility] [employer] CREATININEon 09-15-2023 Creatinine [Mass/Vol] 0.68 mg/dL Normal 0.40-1.00 [facility] Comment on above: Result Comment: METH OD TRACEABLE TO IDMS STANDARD Performed By: #### C BCA, 67679-1, 65543-3, 5643-2, CMP, 31615-2, 3298-7, 2157-6, 4024-6, 49406-1, 3040-3 #### [facility] ([id number]) [address] [place] [address] eGFR (CKD-EPI) NON-RACE DEPENDENT >90 Normal >59 [facility] Comment on above: Result Comment: Reported eGFR is based on the CKD-EPI 2020 equation that does not use a race coefficient. Performed By: #### C BCA, 33312-4, 26243-5, 5643-2, CMP, 19363-0, 3298-7, 2157-6, 4024-6, 40241-0, 3040-3 #### [facility] ([id number]) [address] [place] [address] CT CERVICAL SPINE W CONTon 0 09-15-2023 [...] Gould MD on 09/15/2023 1:31 PM Normal [facility] CT LUMBAR SPINE W CONTon [...] Gould MD on 09/15/2023 1:26 PM Normal [facility] IR MYELOGRAM 2+ [facility] GOLDEN Chang 09-15-2023 [...] antisepsis were utilized throughout this procedure. [place] protocol timeout verification performed. Procedure: The patient [...] Gould MD on 09/15/2023 1:05 PM Normal [facility] PLATELET COUNT AND MPVon Platelet mean volume (Bld) [Entitic vol] 8.0 fL Normal 7-12 [facility] Comment on above: Performed By: #### C TRAVIS, 62914-2, 00939-2, 5643-2, CMP, 18221- 9, 3298-7, 2157-6, 4024-6, 58212-5, 3040-3 #### [facility] ([id number]) [address] [place] [address] Platelets (Bld) [#/Vol] 262 10*3/uL Normal 150-450 [facility] [facility] Comment on above: Performed By: #### C TRAVIS, 07424-1, 39484-8, 5643-2, CMP, 63126- 9, 3298-7, 2157-6, 4024-6, 22188-5, 3040-3 #### [facility] ([id number]) [address] [facility] [place] [address] PROTIME AND INRon 09-15-2023 INR Coag (PPP) [Relative time] 1.1 {INR} Normal 0.8-1.1 [facility] Comment on above: Performed By: #### C TRAVIS, 76151-8, 35920-6, 5643-2, CMP, 30628- 9, 3298-7, 2157-6, 4024-6, 80141-6, 3040-3 #### [facility] ([id number]) 5 [place] [address] PT Coag (PPP) [Time] 12.3 s Normal 9.8-13.2 [facility] Comment on above: Result Comment: NEW REFERENCE RANGE Performed By: #### C TRAVIS, 41681-7, 21953-0, 5643-2, CMP, 99159-9, 3298-7, 2157-6, 4024-6, 24113-1, 3040-3 #### [facility] ([id number]) [address] [facility] [place] [address] XR SPINE CERVICAL FLEXION/EX TENSION ONLYon 08-29-2023 [...] by Norbert Lunsford on 08/29/2023 4:27 PM [facility] Human papilloma virus 16+18+ 31+33+35+39+45+51+52+56+58+59+66+68 DNA [Presence] in T[place] 08-15-2023 HPV 16+18+31+33+35+39+45+ 51+52+56+58+59+66+68 DNA Probe+sig amp Ql (Cvx) Negative Negative [facility] Comment on above: This nucleic acid am plification test detects fourteen high- risk HPV types (16,18,31,33,35,39,45,51,52,56,58,59,66,68)without differentiation.Performed at: =[facility] [id number] Director: Korin Hernandez MD, Phone: [phone] at: [facility] [id number] Director: Korin Hernandez MD, Phone: [phone] No Panel Informationon 08-14 HPV High Risk Other Comment Note . [facility] Comment on above: TESTS RESULT FLAG UN ITS REF RANGE LAB D IAGNOSIS: 02 NEGATIVE FOR INTRAEPITHELIAL LESION OR MALIGNANCY.Specimen adequacy: 02 Satisfactory for evaluation. Endocervical and/or squamous metaplastic cells (endocervical component) are present.Performed by: 02 Janeth Mercedes Safety Lamp Keeper (ASCP). 02Note: Note 02 The Pap smear [...] High <-Panic Low,>-Panic High,A-Abnormal,AA-Critical Abnormal ----Performed at:[address] [address] Korin Hernandez MD, Reference Lab Test Patient Age Note . [facility] Comment on above: TESTS RESULT FLAG UN ITS REF RANGE LAB Clinician Provided Cytology Information Source.............Cervix;Endocervix No. of containers..01 ThinPrep VialAge Deysi WORKMAN Marcia... 3065 FLAG LEGEND: L-Low Normal,H-High Normal,LL-Alert Low,HH-Alert High <-Panic Low,>-Panic High,A-Abnormal,AA-Critical Abnormal ----Performed at:01 =[facility] [address] [facility] [place] [address] Korin Hernandez MD, Activated partial thrombopla stin time (aPTT) in platelet poor plasma by coagulation aOrdered By: Nazario Torres on 06-15-2023 aPTT Coag (PPP) [Time] 30.4 s 25.1-36.5 [facility] Comment on above: A hematocrit value g reater than 55% may lead to inaccurate results in coagulation testing. Patients having hematocrit values >55% require a special collection tube for coagulation studies. Please contact the laboratory at [phone] for redraw instructions. Alanine aminotransferase [En zymatic activity/volume] in Serum or PlasmaOrdered By: Nazario Torres on 06-15-2023 ALT [Catalytic activity/Vol] 42 U/L Normal 7-52 [facility] Comment on above: Performed By: #### P T, CMP, PTT, HS TROP, CBC, CK, AMM ####[facility] Beh[address] [place] [id number] [facility] Albumin [Mass/volume] in Ser um or Plasma by Bromocresol green (BCG) dye binding methoOrdered By: Nazario Torres on 06-15-2023 Albumin BCG dye [Mass/Vol] 3.9 g/dL 3.5-5.7 [facility] Alkaline phosphatase [Enzyma tic activity/volume] in Serum or PlasmaOrdered By: Nazario Torres on 06-15-2023 ALP [Catalytic activity/Vol] 115 U/L High 34-104 [facility] Comment on above: Performed By: #### P T, CMP, PTT, HS TROP, CBC, CK, AMM ####[address] Ammonia [Moles/volume] in Pl asmaOrdered By: Nazario Torres on 06-15-2023 Ammonia (P) [Moles/Vol] 21 umol/L Normal 11-35 [facility] Comment on above: Result Comment: PERF ORMED BY: [facility] [address] [place] [address] PATHOLOGIST NURSE PRACTITIONER LAURI PATEL M.D. Performed By: #### P T, CMP, PTT, HS TROP, CBC, CK, AMM ####[address] Amphetamine Screen Ql (U)Ord ered By: Nazario Torres on 06-15-2023 Amphetamines Ql (U) Positive Negative [facility] Aspartate aminotransferase [ Enzymatic activity/volume] in Serum or PlasmaOrdered By: Nazario Torres on 06-15-2023 AST [Catalytic activity/Vol] 32 U/L Normal 13-39 [facility] Comment on above: Performed By: #### P T, CMP, PTT, HS TROP, CBC, CK, AMM ####[address] Automated basophil %Ordered By: Nazario Torres on 06-15-2023 Basophils/100 WBC (Bld) 0.2 % Normal . [facility] Comment on above: Performed By: #### P T, CMP, PTT, HS TROP, CBC, CK, AMM ####[address] Automated basophil countOrde red By: Nazario Torres on 06-15-2023 Basophils (Bld) [#/Vol] 0.0 10*3/uL Normal 0.0-0.2 [facility] Comment on above: Result Comment: PERF ORMED BY: [facility] [address] [place] [address] PATHOLOGIST NURSE PRACTITIONER LAURI PATEL M.D. Performed By: #### P T, CMP, PTT, HS TROP, CBC, CK, AMM ####[address] Automated blood monocyte cou ntOrdered By: Nazario Torres on 06-15-2023 Monocytes (Bld) [#/Vol] 0.3 10*3/uL Normal 0.0-0.8 [facility] Comment on above: Performed By: #### P T, CMP, PTT, HS TROP, CBC, CK, AMM ####[address] Automated eosinophil %Ordere d By: Nazario Torres on 06-15-2023 Eosinophils/100 WBC (Bld) 4.2 % Normal . [facility] Comment on above: Performed By: #### P T, CMP, PTT, HS TROP, CBC, CK, AMM ####[address] Automated eosinophil countOr dered By: Nazario Torres on 06-15-2023 Eosinophils (Bld) [#/Vol] 0.2 10*3/uL Normal 0.0-0.45 [facility] Comment on above: Performed By: #### P T, CMP, PTT, HS TROP, CBC, CK, AMM ####[address] Automated erythrocytes count in urine sediment (number/area)Ordered By: Nazario Torres on 06-15-2023 RBC Auto (Urine sed) [#/Area] 1-2 [HPF] 0-4 [facility] Automated leukocytes count i n urine sediment (number/area)Ordered By: Nazario Torres on 06-15-2023 WBC Auto (Urine sed) [#/Area] 5-9 [HPF] 0-4 [facility] Automated monocyte %Ordered By: Nazario Torres on 06-15-2023 Monocytes/100 WBC (Bld) 6.0 % Normal . [facility] Comment on above: Performed By: #### P T, CMP, PTT, HS TROP, CBC, CK, AMM ####[place] [address] [place] Automated neutrophil %Ordere d By: Nazario Torres on 06-15-2023 Neutrophils/100 WBC (Bld) 32.6 % Normal . [facility] Comment on above: Performed By: #### P T, CMP, PTT, HS TROP, CBC, CK, AMM ####[facility] [address]ep[address] Automated urine color determ inationOrdered By: Nazario Torres on 06-15-2023 Color (U) Yellow Normal Yellow [facility] Comment on above: Order Comment: Name Collection Type:: Straight Catheter Performed By: #### C UU, ADDONUAPLUS, UHCG #### [facility] [address] Barbiturates [Presence] in U rine by Screen methodOrdered By: Nazario Torres on 06-15-2023 Barbiturates Screen Ql (U) Negative Negative [facility] Benzodiazepines Screen Ql (U )Ordered By: Nazario Torres on 06-15-2023 Benzodiazepines Ql (U) Negative Negative [facility] Benzoylecgonine [Presence] i n Urine by Screen methodOrdered By: Nazario Torres on 06-15-2023 Benzoylecgonine Screen Ql (U) Positive Negative [facility] Bilirubin Test strip Ql (U)O rdered By: Nazario Torres on 06-15-2023 Bilirubin Ql (U) Negative Negative [facility] Bilirubin.total [Mass/volume ] in Serum or PlasmaOrdered By: Nazario Torres on 06-15-2023 Bilirubin [Mass/Vol] 0.4 mg/dL Normal 0.3-1.0 [facility] Comment on above: Performed By: #### P T, CMP, PTT, HS TROP, CBC, CK, AMM ####[facility] [id number] head/brain wo conon 06-14 CT head/brain wo con [facility] [address] [place] [address] CT Scan Report Signed Patient: Tyrone Lim MR#: [id number] : 1985 Acct:[id number] Age/Sex: 38 / F ADM Date: 06/15/23 [...] Jason Stone M.D.06/15/2023 12:37 PM Dictation Location: [place] [address] Transcribed By: [facility] 06/15/23 1237 Dictated By: Jason Stone II, MD 06/15/23 1234 Signed By: 06/15/23 1237 Normal [facility] Calcium [Mass/volume] in Ser um or PlasmaOrdered By: Nazario Torres on 06-15-2023 Calcium [Mass/Vol] 8.3 mg/dL Low 8.6-10.3 [facility] Comment on above: Performed By: #### P T, CMP, PTT, HS TROP, CBC, CK, AMM ####[facility] [id number] [place] [id number] [facility] Cannabinoids [Presence] in U rine by Screen methodOrdered By: Nazario Torres on 06-15-2023 Cannabinoids Screen Ql (U) Positive Negative [facility] Comment on above: These are unconfirme d results and should not be used for legal purposes. Drug Cut-Off Concentration: AMPH 1000 ng/mL CHUYITA 200 ng/mL DINO 200 ng/mL COCM 300 ng/mL OP 300 ng/mL PCP 25 ng/mL THC 20 ng/mL Capillary blood glucose bharath urement by glucometer (mass/volume)Ordered By: Nazario Torres on 06-15-2023 Glucose [Mass/Vol] 105 mg/dL Normal [facility] Comment on above: Random Glucose Refer ence Range is dependent on time and content of last meal. Glucose of more than 200 mg/dL in a nonstressed, ambulatory subject supports the diagnosis of Diabetes Mellitus. Result Comment: [place] om Glucose Reference Range is dependent on time and content of last meal. Glucose of more than 200 mg/dL in a nonstressed, ambulatory subject supports the diagnosis of Diabetes Mellitus. PERFORMED BY: [facility] [address] [place] [address] PATHOLOGIST NURSE PRACTITIONER LAURI PATEL M.D. Performed By: #### G CODY #### Point of Care testing , Carbon dioxide, total [Moles /volume] in Serum or PlasmaOrdered By: Nazario Torres on 06-15-2023 CO2 [Moles/Vol] 23.8 mmol/L Normal 21.0-31.0 [facility] Comment on above: Performed By: #### P T, CMP, PTT, HS TROP, CBC, CK, AMM ####[facility] [id number] [place] [id number] [facility] Casts typing in urine sedime nt by light microscopyOrdered By: Nazario Torres on 06-15-2023 Casts LM Nom (Urine sed) None seen [LPF] None Seen [facility] Chloride [Moles/volume] in S bennett or PlasmaOrdered By: Nazario Torres on 06-15-2023 Chloride [Moles/Vol] 109 mmol/L High 98-107 [facility] Comment on above: Performed By: #### P T, CMP, PTT, HS TROP, CBC, CK, AMM ####[facility] [id number] [place] [id number] [facility] Complete Blood Count Auto Di ffon 06-15-2023 Mean Corpuscular HGB Conc 33.6 g/dL Normal 32.0-35.0 [facility] Comment on above: Performed By: #### P T, CMP, PTT, HS TROP, CBC, CK, AMM ####[address] Monocytes/100 WBC (Bld) 17.73 % Normal 0.00-20.00 [facility] Comment on above: Performed By: #### P T, CMP, PTT, HS TROP, CBC, CK, AMM ####[address] NRBC% 0.1 /100{WBC} Normal 0-0.5 [facility] Comment on above: Performed By: #### P T, CMP, PTT, HS TROP, CBC, CK, AMM ####[address] Comprehensive Metabolic Pane jamel 06-15-2023 Albumin [Mass/Vol] 3.9 g/dL Normal 3.5-5.7 [facility] Comment on above: Performed By: #### P T, CMP, PTT, HS TROP, CBC, CK, AMM ####[address] Creatinine Clr Calc Pharmacy 118.81 Normal [facility] Comment on above: Result Comment: PERF ORMED BY: [facility] [address] [place] [address] PATHOLOGIST NURSE PRACTITIONER LAURI PATEL M.D. Performed By: #### P T, CMP, PTT, HS TROP, CBC, CK, AMM ####[address] GFR/1.73 sq M.predicted MDRD (S/P/Bld) [Vol rate/Area] mL/min/{1.73_m2} Normal [facility] Comment on above: Performed By: #### P T, CMP, PTT, HS TROP, CBC, CK, AMM ####[address] [place] [address] [place] Creatine kinase [Enzymatic a ctivity/volume] in Serum or PlasmaOrdered By: Nazario Torres on 06-15-2023 CK [Catalytic activity/Vol] 68 U/L Normal 30-223 [facility] Comment on above: Performed By: #### P T, CMP, PTT, HS TROP, CBC, CK, AMM ####[facility] [place] [address] Creatinine [Mass/volume] in Serum or PlasmaOrdered By: Nazario Torres on 06-15-2023 Creatinine [Mass/Vol] 0.86 mg/dL Normal 0.60-1.20 [facility] Comment on above: Performed By: #### P T, CMP, PTT, HS TROP, CBC, CK, AMM ####[place] [address] [place] Dipstick and Microscopicon 0 06-15-2023 Appearance (U) Clear Normal Clear [facility] Comment on above: Order Comment: Name Collection Type:: Straight Catheter Performed By: #### C UU, ADDONUAPLUS, UHCG #### [facility] [address] [place] [address] [place] Bacteria,Urine None Seen Normal None Seen [facility] Comment on above: Order Comment: Name Collection Type:: Straight Catheter Performed By: #### C UU, ADDONUAPLUS, UHCG #### [facility] [address] [place] [address] [place] Bilirubin,Urine Negative Normal Negative [facility] Comment on above: Order Comment: Name Collection Type:: Straight Catheter Performed By: #### C UU, ADDONUAPLUS, UHCG #### [facility] [address] [place] [address] [place] Glucose Ql (U) Normal Normal Normal [facility] Comment on above: Order Comment: Name Collection Type:: Straight Catheter Performed By: #### C UU, ADDONUAPLUS, UHCG #### [facility] [address] [place] [address] [place] Hyaline Casts,Urine 0-8 Normal 0-8 [facility] Comment on above: Order Comment: Name Collection Type:: Straight Catheter Performed By: #### C UU, ADDONUAPLUS, UHCG #### [facility] [address] [place] [address] [place] Ketones Ql (U) Negative Normal Negative [facility] Comment on above: Order Comment: Name Collection Type:: Straight Catheter Performed By: #### C UU, ADDONUAPLUS, UHCG #### [address] Leukocyte esterase Test strip Ql (U) 2+ High Negative [facility] Comment on above: Order Comment: Name Collection Type:: Straight Catheter Performed By: #### C UU, ADDONUAPLUS, UHCG #### [place] [address] [place] Nitrite,Urine Negative Normal Negative [facility] Comment on above: Order Comment: Name Collection Type:: Straight Catheter Performed By: #### C UU, ADDONUAPLUS, UHCG #### [place] [id number] [place] Occult Blood,Urine Negative Normal Negative [facility] Comment on above: Order Comment: Name Collection Type:: Straight Catheter Performed By: #### C UU, ADDONUAPLUS, UHCG #### [place] [address] [place] Other Casts,Urine None Seen Normal None Seen [facility] Comment on above: Order Comment: Name Collection Type:: Straight Catheter Performed By: #### C UU, ADDONUAPLUS, UHCG #### [place] [address] [place] Protein,Urine Negative Normal Negative [facility] Comment on above: Order Comment: Name Collection Type:: Straight Catheter Performed By: #### C UU, ADDONUAPLUS, UHCG #### [place] [address] [place] RBC,Urine 1-2 Normal 0-4 [facility] Comment on above: Order Comment: Name Collection Type:: Straight Catheter Performed By: #### C UU, ADDONUAPLUS, UHCG #### [facility] [address] [place] [address] [place] Renal Epithelial Cells,Urine 1-2 High 0-1 [facility] Comment on above: Order Comment: Name Collection Type:: Straight Catheter Performed By: #### C UU, ADDONUAPLUS, UHCG #### [place] [address] [place] Specificy [place],Urine 1.016 Normal 1.001-1.030 [facility] Comment on above: Order Comment: Name Collection Type:: Straight Catheter Performed By: #### C UU, ADDONUAPLUS, UHCG #### [place] [address] [place] Squamous Epithelial Cell,Urine 5-9 High 0-2 [facility] Comment on above: Order Comment: Name Collection Type:: Straight Catheter Performed By: #### C UU, ADDONUAPLUS, UHCG #### [facility] [address] [place] [address] [place] Urobilinogen,Urine Normal Normal Normal [facility] Comment on above: Order Comment: Name Collection Type:: Straight Catheter Performed By: #### C UU, ADDONUAPLUS, UHCG #### [facility] [address] [place] [address] [place] WBC,Urine 5-9 High 0-4 [facility] Comment on above: Order Comment: Name Collection Type:: Straight Catheter Performed By: #### C UU, ADDONUAPLUS, UHCG #### [facility] [address] [place] [address] [place] Drug Screen,Urineon 06-15-19 24 Amphetamine Screen,Urine Positive High Negative [facility] Comment on above: Performed By: #### U RDS ####[address] Barbiturate Screen,Urine Negative Normal Negative [facility] Comment on above: Performed By: #### U RDS ####[facility] [address] Benzodiazepines Screen,Urine Negative Normal Negative [facility] Comment on above: Performed By: #### U RDS ####[address] Cannabinoid Screen,Urine Positive High Negative [facility] Comment on above: Result Comment: Thes e are unconfirmed results and should not be used for legal purposes. Drug Cut-Off Concentration: AMPH 1000 ng/mL CHUYITA 200 ng/mL DINO 200 ng/mL COCM 300 ng/mL OP 300 ng/mL PCP 25 ng/mL THC 20 ng/mL PERFORMED BY: [place] [address] PATHOLOGIST NURSE PRACTITIONER LAURI PATEL M.D. Performed By: #### U RDS ####[address] Cocaine Screen,Urine Positive High Negative [facility] Comment on above: Performed By: #### U RDS ####[address] Opiate Screen,Urine Negative Normal Negative [facility] Comment on above: Performed By: #### U RDS ####[address] Phencyclidine Screen,Urine Negative Normal Negative [facility] Comment on above: Performed By: #### U RDS ####[address] ECG 12 lead ECGon 06-15-2023 ECG 12 lead ECG [facility] [address] [place] [address] Electrocardiograph Report Signed Patient: Tyrone Lim MR#: [id number] : 1985 Acct:[id number] Age/Sex: 38 / F ADM Date: 06/15/23 Loc: ER Room: Type: [facility] ER Attending Dr: Ordering Provider: Nazario [...] axis deviation Confirmed by Nazario TORRES DO ([id number]) on 06/15/2023 6:38:04 PM Referred By: Electronically Signed By:Nazario TORRES DO Transcribed By: MUS Signed By Nazario Torres DO 0 06/15/231837 Normal [facility] ECG 12 lead ECG [facility] [address] [place] [address] Electrocardiograph Report Signed Patient: Tyrone Lim MR#: [id number] : 1985 Acct:[id number] Age/Sex: 38 / F ADM Date: 06/15/23 Loc: ER Room: Type: [facility] ER Attending Dr: Ordering Provider: Nazario [...] Sinus tachycardia Confirmed by Nazario TORRES DO ([id number]) on 06/15/2023 6:34:30 PM Referred By: Electronically Signed By:Nazario TORRES DO Transcribed By: MUS Signed By Nazario Torres DO 0 06/15/231833 Normal [facility] Erythrocyte distribution wid th [Ratio] by Automated countOrdered By: Nazario Torres on 06-15-2023 Erythrocyte distribution width (RBC) [Ratio] 13.9 % Normal 11.9-15.3 [facility] Comment on above: Performed By: #### P T, CMP, PTT, HS TROP, CBC, CK, AMM ####[facility] [id number] Erythrocytes [#/volume] in B lood by Automated countOrdered By: Nazario Torres on 06-15-2023 RBC (Bld) [#/Vol] 3.86 10*6/uL Normal 3.60-5.00 [facility] Comment on above: Performed By: #### P T, CMP, PTT, HS TROP, CBC, CK, AMM ####[facility] Ofc[address] Glucose [Mass/volume] in Ser um or PlasmaOrdered By: Nazario Torres on 06-15-2023 Glucose [Mass/Vol] 107 mg/dL High 70-100 [facility] Comment on above: ADA recommended refe rence rangeRandom Glucose Reference Range is dependent on time and content of last meal. Glucose of more than 200 mg/dL in a nonstressed, ambulatory subject supports the diagnosis of Diabetes Mellitus. Result Comment: [place] om Glucose Reference Range is dependent on time and content of last meal. Glucose of more than 200 mg/dL in a nonstressed, ambulatory subject supports the diagnosis of Diabetes Mellitus. ADA recommended reference range Performed By: #### P T, CMP, PTT, HS TROP, CBC, CK, AMM ####[facility] HCG ( test) IA.rapi d Ql (U)Ordered By: Nazario Torres on 06-15-2023 HCG ( test) Ql (U) Negative [facility] HCG,Urineon 06-15-2023 Beta HCG ( test) Ql (U) Negative Normal [facility] Comment on above: Order Comment: Name Collection Type:: Straight Catheter Result Comment: PERF ORMED BY: [facility] [address] [place] [address] PATHOLOGIST NURSE PRACTITIONER LARUI PATEL M.D. Performed By: #### C UU, ADDONUAPLUS, CG #### [facility] [address] Hematocrit [Volume Fraction] of Blood by Automated countOrdered By: Nazario Torres on 06-15-2023 Hematocrit (Bld) [Volume fraction] 34.5 % Normal 34.0-46.4 [facility] Comment on above: Performed By: #### P T, CMP, PTT, HS TROP, CBC, CK, AMM ####[place] [id number] [place] [id number] [facility] Hemoglobin [Mass/volume] in BloodOrdered By: Nazario Torres on 06-15-2023 Hemoglobin (Bld) [Mass/Vol] 11.6 g/dL Low 11.8-15.4 [facility] Comment on above: Performed By: #### P T, CMP, PTT, HS TROP, CBC, CK, AMM ####[place] [id number] [place] [id number] [facility] INR in Platelet poor plasma by Coagulation assayOrdered By: Nazario Torres on 06-15-2023 INR Coag (PPP) [Relative time] 1.1 {INR} Normal [facility] Comment on above: INR Therapeutic Rang [...] CMP, PTT, HS TROP, CBC, CK, AMM ####[facility] [place] [id number] [facility] Ketones Auto test strip (U) [Mass/Vol]Ordered By: Nazario Torres on 06-15-2023 Ketones (U) [Mass/Vol] Negative Negative [facility] Laboratory - UrinalysisOrder ed By: Nazario Torres on 06-15-2023 Hyaline casts LM Ql (Urine sed) 0-8 [LPF] 0-8 [facility] Leukocytes [#/volume] correc [place] for nucleated erythrocytes in Blood by Automated counOrdered By: Nazario Torres on 06-15-2023 WBC corrected for nucl RBC Auto (Bld) [#/Vol] 5.3 10*3/uL 3.8-11.6 [facility] Leukocytes [#/volume] in Blo od by Automated countOrdered By: Nazario Torres on 06-15-2023 WBC (Bld) [#/Vol] 5.3 10*3/uL Normal 3.8-11.6 [facility] Comment on above: Performed By: #### P T, CMP, PTT, HS TROP, CBC, CK, AMM ####[place] [id number] [facility] Lymphocytes [#/volume] in Bl ood by Automated countOrdered By: Nazario Torres on 06-15-2023 Lymphocytes (Bld) [#/Vol] 3.0 10*3/uL Normal 1.00-4.8 [facility] Comment on above: Performed By: #### P T, CMP, PTT, HS TROP, CBC, CK, AMM ####[place] [id number] [facility] Lymphocytes/100 leukocytes i n Blood by Automated countOrdered By: Nazario Torres on 06-15-2023 Lymphocytes/100 WBC (Bld) 57.0 % Normal . [facility] Comment on above: Performed By: #### P T, CMP, PTT, HS TROP, CBC, CK, AMM ####[place] [id number] [facility] MCH [Entitic mass] by Automa l[place] countOrdered By: Nazario Torres on 06-15-2023 MCH (RBC) [Entitic mass] 30.1 pg Normal 24.7-34.3 [facility] Comment on above: Performed By: #### P T, CMP, PTT, HS TROP, CBC, CK, AMM ####[place] [id number] [facility] MCHC Auto (RBC) [Mass/Vol]Or dered By: Nazario Torres on 06-15-2023 MCHC (RBC) [Mass/Vol] 33.6 g/dL 32.0-35.0 [facility] MCV [Entitic volume] by Auto mated countOrdered By: Nazario Torres on 06-15-2023 MCV (RBC) [Entitic vol] 89.4 fL Normal 80-100 [facility] Comment on above: Performed By: #### P T, CMP, PTT, HS TROP, CBC, CK, AMM ####[facility] [id number] [place] [id number] [facility] Monocyte distribution width [Entitic volume] in Blood by AutomatedOrdered By: Nazario Torres on 06-15-2023 Monocyte distribution width Auto (Bld) [Entitic vol] 17.73 % 0.00-20.00 [facility] Neutrophils [#/volume] in Bl ood by Automated countOrdered By: Nazario Torres on 06-15-2023 Neutrophils (Bld) [#/Vol] 1.7 10*3/uL Low 1.8-7.7 [facility] Comment on above: Performed By: #### P T, CMP, PTT, HS TROP, CBC, CK, AMM ####[facility] [id number] [place] [address] [facility] Nitrite Test strip Ql (U)Ord ered By: Nazario Torres on 06-15-2023 Nitrite Ql (U) Negative Negative [facility] No Panel InformationOrdered By: Nazario Torres on 06-15-2023 Blood Gas Critical Value See comment [facility] Comment on above: Critical Value quintero d on: 06/15/2023 at 13:02 Blood Gas Sample Site Venous [facility] FiO2 21 % [facility] Venous Blood Base Excess -7.8 mmol/L -3.0-3.0 [facility] Venous Blood Oxygen Content 5.8 mmol/L 6.6-9.7 [facility] Venous Blood Oxygen Saturation 84.8 % 73.0-76.0 [facility] Venous Blood Partial Pressure CO2 36.9 mm[Hg] 38.0-50.0 [facility] Venous Blood Partial Pressure O2 53.5 mm[Hg] 35.0-45.0 [facility] Venous Blood pH 7.30 7.32-7.43 [facility] Estimated GFR (CKD-EPI) > 60.0 mL/Min [facility] Creatinine Clearance (Chem 118.81 [facility] Nucleated erythrocytes [Pres ence] in Blood by Automated countOrdered By: Nazario Torres on 06-15-2023 Nucleated RBC Auto Ql (Bld) 0.1 /100{WBC} 0-0.5 [facility] Opiates [Presence] in Urine by Screen methodOrdered By: Nazario Torres on 06-15-2023 Opiates Screen Ql (U) Negative Negative [facility] Partial Thromboplastin Timeo n 06-15-2023 aPTT Coag (Bld) [Time] 30.4 s Normal 25.1-36.5 [facility] Comment on above: Result Comment: A he matocrit value greater than 55% may lead to inaccurate results in coagulation testing. Patients having hematocrit values >55% require a special collection tube for coagulation studies. Please contact the laboratory at [phone] for redraw instructions. PERFORMED BY: [facility] [address] [place] [address] PATHOLOGIST NURSE PRACTITIONER LAURI PATEL M.D. Performed By: #### P T, CMP, PTT, HS TROP, CBC, CK, AMM ####[facility] [id number] [place] [id number] [facility] Phencyclidine Screen Ql (U)O rdered By: Nazario Torres on 06-15-2023 Phencyclidine Ql (U) Negative Negative [facility] Platelet mean volume [Entiti c volume] in Blood by Automated countOrdered By: Nazario Torres on 06-15-2023 Platelet mean volume (Bld) [Entitic vol] 8.7 fL Normal 6.3-10.7 [facility] Comment on above: Performed By: #### P T, CMP, PTT, HS TROP, CBC, CK, AMM ####[place] [id number] [place] [id number] [facility] Platelets [#/volume] in Bloo d by Automated countOrdered By: Nazario Torres on 06-15-2023 Platelets (Bld) [#/Vol] 196 10*3/uL Normal 150-450 [facility] Comment on above: Performed By: #### P T, CMP, PTT, HS TROP, CBC, CK, AMM ####[place] [address] [place] [address] [facility] Potassium [Moles/volume] in Serum or PlasmaOrdered By: Nazario Torres on 06-15-2023 Potassium [Moles/Vol] 3.7 mmol/L Normal 3.5-5.1 [facility] Comment on above: Performed By: #### P T, CMP, PTT, HS TROP, CBC, CK, AMM ####[place] [address] [place] [address] [facility] Protein Auto test strip (U) [Mass/Vol]Ordered By: Nazario Torres on 06-15-2023 Protein (U) [Mass/Vol] Negative Negative [facility] Protein [Mass/volume] in Ser um or PlasmaOrdered By: Nazario Torres on 06-15-2023 Protein [Mass/Vol] 6.6 g/dL Normal 6.4-8.9 [facility] Comment on above: Performed By: #### P T, CMP, PTT, HS TROP, CBC, CK, AMM ####[address] [facility] Prothrombin time (PT)Ordered By: Nazario Torres on 06-15-2023 PT Coag (PPP) [Time] 13.2 s High 9.0-12.9 [facility] Comment on above: A hematocrit value g reater than 55% may lead to inaccurate results in coagulation testing. Patients having hematocrit values >55% require a special collection tube for coagulation studies. Please contact the laboratory at [phone] for redraw instructions. Result Comment: A he matocrit value greater than 55% may lead to inaccurate results in coagulation testing. Patients having hematocrit values >55% require a special collection tube for coagulation studies. Please contact the laboratory at [phone] for redraw instructions. Performed By: #### P T, CMP, PTT, HS TROP, CBC, CK, AMM ####[address] [facility] Serum globulin measurement b y calculation (mass/volume)Ordered By: Nazario Torres on 06-15-2023 Globulin (S) [Mass/Vol] 2.7 g/dL Normal [facility] Comment on above: Performed By: #### P T, CMP, PTT, HS TROP, CBC, CK, AMM ####[place] [address] Serum or plasma albumin/glob ulin mass ratioOrdered By: Nazario Torres on 06-15-2023 Albumin/Globulin [Mass ratio] 1.4 {ratio} [facility] Comment on above: Performed By: #### P T, CMP, PTT, HS TROP, CBC, CK, AMM ####[place] [address] Serum or plasma anion gap de terminationOrdered By: Nazario Torres on 06-15-2023 Anion gap [Moles/Vol] 10.9 mmol/L Normal 6.0-15.0 [facility] Comment on above: Performed By: #### P T, CMP, PTT, HS TROP, CBC, CK, AMM ####[address] Sodium [Moles/volume] in Ser um or PlasmaOrdered By: Nazario Torres on 06-15-2023 Sodium [Moles/Vol] 140 mmol/L Normal 136-145 [facility] Comment on above: Performed By: #### P T, CMP, PTT, HS TROP, CBC, CK, AMM ####[address] Specific gravity Auto test s trip (U) [Rel density]Ordered By: Nazario Torres on 06-15-2023 Specific gravity (U) [Rel density] 1.016 1.001-1.030 [facility] Squamous epithelial cells de tection in urine sediment by light microscopyOrdered By: Nazario Torres on 06-15-2023 Epithelial cells.squamous LM Ql (Urine sed) 5-9 [HPF] 0-2 [facility] Troponin I High Sensitivityo n 06-15-2023 Troponin I High Sensitivity < 2.3 Normal 0.0-15.0 [facility] Comment on above: Result Comment: PERF ORMED BY: [place] [address] PATHOLOGIST NURSE PRACTITIONER LAURI PATEL M.D. Performed By: #### P T, CMP, PTT, HS TROP, CBC, CK, AMM ####[address] Troponin I.cardiac [Mass/vol ume] in Serum or Plasma by Detection limit <= 0.01 ng/Ordered By: Nazario Torres on 06-15-2023 Troponin I.cardiac DL <= 0.01 ng/mL [Mass/Vol] < 2.3 pg/mL 0.0-15.0 [facility] Urea nitrogen [Mass/volume] in Serum or PlasmaOrdered By: Nazario Torres on 06-15-2023 Urea nitrogen [Mass/Vol] 11 mg/dL Normal 7-25 [facility] Comment on above: Performed By: #### P T, CMP, PTT, HS TROP, CBC, CK, AMM ####[place] [id number] [facility] Urine Cultureon 06-15-2023 Bacteria identified Cx Nom (U) No Growth 2 Days PERFORMED BY: [place] [address] PATHOLOGIST NURSE PRACTITIONER LAURI PATEL M.D. Normal [facility] Comment on above: Performed By: #### C UU, YEHUDA, CG #### [place] [id number] [facility] Urine bacteria detection by automated methodOrdered By: Nazario Torres on 06-15-2023 Bacteria Auto Ql (U) None seen None Seen [facility] Urine clarity by refractomet ry automatedOrdered By: Nazario Torres on 06-15-2023 Clarity Refractometry automated (U) Clear Clear [facility] Urine glucose measurement by automated test strip (mass/volume)Ordered By: Nazario Torres on 06-15-2023 Glucose Auto test strip (U) [Mass/Vol] Normal mg/dL Normal [facility] Urine hemoglobin detection b y automated test stripOrdered By: Nazario Torres on 06-15-2023 Hemoglobin Auto test strip Ql (U) Negative Negative [facility] Urine leukocyte esterase det ection by automated test stripOrdered By: Nazario Torres on 06-15-2023 Leukocyte esterase Auto test strip Ql (U) 2+ Negative [facility] Urine pH measurement by auto mated test stripOrdered By: Nazario Torres on 06-15-2023 pH (U) 7.0 [pH] Normal 5.0-9.0 [facility] Comment on above: Order Comment: Name Collection Type:: Straight Catheter Performed By: #### C UU, ADDONUAPLUS, UHCG #### [address] Urine sediment renal epithel ial cell count by microscopy (number/high power field)Ordered By: Nazario Torres on 06-15-2023 Epithelial cells.renal LM.HPF (Urine sed) [#/Area] 1-2 [HPF] 0-1 [facility] Urobilinogen Auto test strip (U) [Mass/Vol]Ordered By: Nazario Torres on 06-15-2023 Urobilinogen (U) [Mass/Vol] Normal mg/dL Normal [facility] Venous Blood GasOrdered By: Nazario Torres on 06-15-2023 CO2 [Moles/Vol] 19.0 mmol/L Low 24.0-29.0 [facility] Comment on above: Performed By: #### V BG #### Point of Care testing , HCO3 (Bld) [Moles/Vol] 17.8 mmol/L Low 23.0-29.0 [facility] Comment on above: Performed By: #### V BG #### Point of Care testing , Venous Blood Gason Respiratory Critical Normal [facility] Comment on above: Result Comment: Crit ical Value called on: 06/15/2023 at 13:02 PERFORMED BY: [place] [address] PATHOLOGIST NURSE PRACTITIONER LAURI PATEL M.D. Performed By: #### V BG #### Point of Care testing , VBG Base Excess -7.8 mmol/L Low -3.0-3.0 [facility] Comment on above: Performed By: #### V BG #### Point of Care testing , VBG Draw Site Venous Normal [facility] Comment on above: Performed By: #### V BG #### Point of Care testing , VBG Frac Inspired O2 21 % Normal [facility] Comment on above: Performed By: #### V BG #### Point of Care testing , VBG O2 Content 5.8 mmol/L Low 6.6-9.7 [facility] Comment on above: Performed By: #### V BG #### Point of Care testing , VBG Oxygen Saturation 84.8 % High 73.0-76.0 [facility] Comment on above: Performed By: #### V BG #### Point of Care testing , VBG PCO2 36.9 mm[Hg] Low 38.0-50.0 [facility] Comment on above: Performed By: #### V BG #### Point of Care testing , VBG PH Venous PH 7.30 Low 7.32-7.43 [facility] Comment on above: Performed By: #### V BG #### Point of Care testing , VBG PO2 53.5 mm[Hg] High 35.0-45.0 [facility] Comment on above: Performed By: #### V BG #### Point of Care testing , XR chest 2V*on 06-15-2023 XR chest 2V* [facility] [place] [address] XRay Report Signed Patient: Tyrone Lim MR#: [id number] : 1985 Acct:[id number] Age/Sex: 38 / F ADM Date: 06/15/23 [...] By: 06/15/23 1234 Normal [facility] ACETAMINOPHENon 06-01-2023 Acetaminophen [Mass/Vol] 6.5 ug/mL Low 10.0-30.0 [facility] Comment on above: Result Comment: Refe rence ranges are for therapeutic limits. Performed By: #### C TRAVIS, 97630-6, 92614-1, 5643-2, CMP, 80631-5, 3298-7, 2157-6, 4024-6, 46849-9, 3040-3 #### [facility] ([id number]) [address] [place] [address] 85698 CBC AND AUTO DIFFon 06-01-19 ABSOLUTE BASOPHIL 0.0 X10E9/L Normal 0.0-0.2 [facility] Comment on above: Performed By: #### C TRAVIS, 43336-7, 65610-2, 5643-2, CMP, 35854- 9, 3298-7, 2157-6, 4024-6, 49982-3, 3040-3 #### [facility] ([id number]) [address] [place] [address] 71352 ABSOLUTE NEUTROPHIL 13.2 X10E9/L High 1.5-6.6 [facility] Comment on above: Performed By: #### C TRAVIS, 22044-8, 20024-6, 5643-2, CMP, 29239- 9, 3298-7, 2157-6, 4024-6, 09482-5, 3040-3 #### [facility] ([id number]) [address] [place] [address]172 Basophils/100 WBC (Bld) 0.1 % Normal [facility] Comment on above: Performed By: #### C BCA, 00717-6, 70963-5, 5643-2, CMP, 18596- 9, 3298-7, 2157-6, 4024-6, 73247-7, 3040-3 #### [facility] ([id number]) [address] [place] [address] 82371 Eosinophils (Bld) [#/Vol] 0.0 10*3/uL Normal 0.0-0.4 [facility] Comment on above: Performed By: #### C BCA, 98078-7, 47919-3, 5643-2, CMP, 42052- 9, 3298-7, 2157-6, 4024-6, 68809-1, 3040-3 #### [facility] ([id number]) [address] [place] [address] 35022 Eosinophils/100 WBC (Bld) 0.3 % Normal [facility] Comment on above: Performed By: #### C BCA, 23674-3, 44775-2, 5643-2, CMP, 80441- 9, 3298-7, 2157-6, 4024-6, 85460-9, 3040-3 #### [facility] ([id number]) [address] [place] [address] 45417 Erythrocyte distribution width (RBC) [Ratio] 14.4 % Normal 11.5-15.0 [facility] Comment on above: Performed By: #### C BCA, 91434-1, 09847-2, 5643-2, CMP, 38070- 9, 3298-7, 2157-6, 4024-6, 92935-0, 3040-3 #### [facility] ([id number]) [address] [place] [address]324 Hematocrit (Bld) [Volume fraction] 40.1 % Normal 35-47 [facility] Comment on above: Performed By: #### C BCA, 27408-9, 39376-5, 5643-2, CMP, 88189- 9, 3298-7, 2157-6, 4024-6, 78381-3, 3040-3 #### [facility] ([id number]) [address] [place] [address] 10938 Hemoglobin (Bld) [Mass/Vol] 13.4 g/dL Normal 11.7-15.5 [facility] Comment on above: Performed By: #### C BCA, 99716-1, 18073-7, 5643-2, CMP, 57063- 9, 3298-7, 2157-6, 4024-6, 65076-4, 3040-3 #### [facility] ([id number]) [address] [place] [address] 32200 Lymphocytes (Bld) [#/Vol] 1.0 10*3/uL Normal 1.0-3.5 [facility] Comment on above: Performed By: #### C BCA, 18232-8, 20600-6, 5643-2, CMP, 72211- 9, 3298-7, 2157-6, 4024-6, 73027-6, 3040-3 #### [facility] ([id number]) [address] [place] [address] 42228 Lymphocytes/100 WBC (Bld) 6.8 % Normal [facility] Comment on above: Performed By: #### C BCA, 38131-1, 30523-6, 5643-2, CMP, 10268- 9, 3298-7, 2157-6, 4024-6, 40568-6, 3040-3 #### [facility] ([id number]) [address] [place] [address] 37102 MCH (RBC) [Entitic mass] 30.5 pg Normal 27-34 [facility] Comment on above: Performed By: #### C TRAVIS, 43248-3, 71565-3, 5643-2, CMP, 35495- 9, 3298-7, 2157-6, 4024-6, 07637-0, 3040-3 #### [facility] ([id number]) [address] [place] [address] 94757 MCHC (RBC) [Mass/Vol] 33.5 g/dL Normal 32-36 [facility] Comment on above: Performed By: #### C TRAVIS, 31095-6, 36129-6, 5643-2, CMP, 92104- 9, 3298-7, 2157-6, 4024-6, 64856-0, 3040-3 #### [facility] ([id number]) [address] [place] [address] 59264 MCV (RBC) [Entitic vol] 91 fL Normal 80-100 [facility] Comment on above: Performed By: #### C TRAVIS, 73642-5, 19794-3, 5643-2, CMP, 34188- 9, 3298-7, 2157-6, 4024-6, 18747-7, 3040-3 #### [facility] ([id number]) [address] [place] [address] 46434 Monocytes (Bld) [#/Vol] 0.5 10*3/uL Normal 0-0.9 [facility] Comment on above: Performed By: #### C TRAVIS, 02746-5, 25747-8, 5643-2, CMP, 74665- 9, 3298-7, 2157-6, 4024-6, 05285-0, 3040-3 #### [facility] ([id number]) [address] [place] [address] 52285 Monocytes/100 WBC (Bld) 3.7 % Normal [facility] Comment on above: Performed By: #### C BCA, 69471-0, 28353-8, 5643-2, CMP, 08264- 9, 3298-7, 2157-6, 4024-6, 85043-1, 3040-3 #### [facility] ([id number]) [address] [place] [address] [place] [address] Neutrophils/100 WBC (Bld) 89.1 % Normal [facility] Comment on above: Performed By: #### C BCA, 76832-5, 54913-3, 5643-2, CMP, 61121- 9, 3298-7, 2157-6, 4024-6, 74012-3, 3040-3 #### [facility] ([id number]) [address] [place] [address] 26807 Platelet mean volume (Bld) [Entitic vol] 8.3 fL Normal 7-12 [facility] Comment on above: Performed By: #### C BCA, 82554-2, 26863-7, 5643-2, CMP, 16593- 9, 3298-7, 2157-6, 4024-6, 46742-2, 3040-3 #### [facility] ([id number]) [address] [place] [address] 92696 Platelets (Bld) [#/Vol] 249 10*3/uL Normal 150-450 [facility] Comment on above: Performed By: #### C BCA, 93879-4, 90800-0, 5643-2, CMP, 13499- 9, 3298-7, 2157-6, 4024-6, 38676-9, 3040-3 #### [facility] ([id number]) [address] [place] [address] [place] [address] RBC COUNT 4.41 X10E12/L Normal 3.80-5.20 [facility] Comment on above: Performed By: #### C BCA, 18762-8, 96761-4, 5643-2, CMP, 19363- 9, 3298-7, 2157-6, 4024-6, 64773-5, 3040-3 #### [facility] ([id number]) [address] [place] [address] 20594 WBC (Bld) [#/Vol] 14.8 10*3/uL High 4.0-11.0 [facility] Comment on above: Performed By: #### C BCA, 93516-0, 17085-4, 5643-2, CMP, 76642- 9, 3298-7, 2157-6, 4024-6, 63170-6, 3040-3 #### [facility] ([id number]) [address] [place] [address] 11794 CK [Catalytic activity/Vol]o n 06-01-2023 CPK 49 U/L Normal 24-170 [facility] Comment on above: Performed By: #### C BCA, 23055-0, 79835-5, 5643-2, CMP, 06653- 9, 3298-7, 2157-6, 4024-6, 58468-5, 3040-3 #### [facility] ([id number]) [address] [place] [address] [place] [address] COMPREHENSIVE METABOLIC PANE Jamel 06-01-2023 Albumin [Mass/Vol] 4.3 g/dL Normal 3.2-5.3 [facility] Comment on above: Performed By: #### C BCA, 58515-5, 46649-1, 5643-2, CMP, 80568- 9, 3298-7, 2157-6, 4024-6, 38378-5, 3040-3 #### [facility] ([id number]) [address] [place] [address] 82522 ALP [Catalytic activity/Vol] 115 U/L Normal 39-130 [facility] Comment on above: Performed By: #### C BCA, 22627-5, 03787-7, 5643-2, CMP, 11394- 9, 3298-7, 2157-6, 4024-6, 36986-0, 3040-3 #### [facility] ([id number]) [address] [place] [address] 38253 ALT [Catalytic activity/Vol] 37 U/L High 0-31 [facility] Comment on above: Performed By: #### C BCA, 51140-2, 04487-5, 5643-2, CMP, 39100- 9, 3298-7, 2157-6, 4024-6, 51437-3, 3040-3 #### [facility] ([id number]) [address] [place] [address] 21908 Anion gap [Moles/Vol] 10 mmol/L Normal 5-15 [facility] Comment on above: Performed By: #### C BCA, 39527-1, 52615-4, 5643-2, CMP, 10811- 9, 3298-7, 2157-6, 4024-6, 63647-5, 3040-3 #### [facility] ([id number]) [address] [place] [address] 44666 AST [Catalytic activity/Vol] 29 U/L Normal 0-41 [facility] Comment on above: Performed By: #### C BCA, 21849-6, 64746-1, 5643-2, CMP, 87874- 9, 3298-7, 2157-6, 4024-6, 73224-9, 3040-3 #### [facility] ([id number]) [address] [place] [address] 31090 Bilirubin [Mass/Vol] 0.4 mg/dL Normal 0.3-1.2 [facility] Comment on above: Performed By: #### C BCA, 96240-4, 19258-1, 5643-2, CMP, 24907- 9, 3298-7, 2157-6, 4024-6, 88497-8, 3040-3 #### [facility] ([id number]) [address] [place] [address] 08603 Calcium [Mass/Vol] 8.8 mg/dL Normal 8.5-10.5 [facility] Comment on above: Performed By: #### C BCA, 21578-9, 59925-2, 5643-2, CMP, 57349- 9, 3298-7, 2157-6, 4024-6, 76452-0, 3040-3 #### [facility] ([id number]) [address] [place] [address] 28261 Chloride [Moles/Vol] 105 mmol/L Normal 98-109 [facility] Comment on above: Performed By: #### C BCA, 64208-1, 73331-4, 5643-2, CMP, 63573- 9, 3298-7, 2157-6, 4024-6, 12631-7, 3040-3 #### [facility] ([id number]) [address] [place] [address] [place] [address] CO2 [Moles/Vol] 22 mmol/L Normal 22-32 [facility] Comment on above: Performed By: #### C BCA, 43284-9, 74012-6, 5643-2, CMP, 07574- 9, 3298-7, 2157-6, 4024-6, 31899-7, 3040-3 #### [facility] ([id number]) [address] [place] [address] [place] [address] Creatinine [Mass/Vol] 1.23 mg/dL High 0.40-1.00 [facility] Comment on above: Result Comment: METH OD TRACEABLE TO IDMS STANDARD Performed By: #### C BCA, 69225-6, 93808-4, 5643-2, CMP, 58402-1, 3298-7, 2157-6, 4024-6, 62979-0, 3040-3 #### [facility] ([id number]) [address] [place] [address] GFR/1.73 sq M.predicted among non-blacks MDRD (S/P/Bld) [Vol rate/Area] 58 mL/min/{1.73_m2} Low >59 [facility] Comment on above: Result Comment: Reported eGFR is based on the CKD-EPI 2020 equation that does not use a race coefficient. Performed By: #### C BCA, 39673-9, 71737-6, 5643-2, CMP, 56475-4, 3298-7, 2157-6, 4024-6, 15838-6, 3040-3 #### [facility] ([id number]) [address] [place] [address] Glucose [Mass/Vol] 274 mg/dL High 65-99 [facility] Comment on above: Performed By: #### C BCA, 22964-9, 58527-0, 5643-2, CMP, 70635- 9, 3298-7, 2157-6, 4024-6, 69321-6, 3040-3 #### [facility] ([id number]) [address] [place] [address] Potassium [Moles/Vol] 4.8 mmol/L Normal 3.5-5.0 [facility] Comment on above: Performed By: #### C BCA, 69032-9, 62866-8, 5643-2, CMP, 16818- 9, 3298-7, 2157-6, 4024-6, 35079-0, 3040-3 #### [facility] ([id number]) [address] [place] [address] Protein [Mass/Vol] 8.3 g/dL High 6.0-8.0 [facility] Comment on above: Performed By: #### C BCA, 86691-2, 44670-3, 5643-2, CMP, 44678- 9, 3298-7, 2157-6, 4024-6, 34721-6, 3040-3 #### [facility] [facility] ([id number]) [address] [place] [address] 87662 Sodium [Moles/Vol] 137 mmol/L Normal 134-146 [facility] Comment on above: Performed By: #### C BCA, 03354-0, 62282-5, 5643-2, CMP, 27304- 9, 3298-7, 2157-6, 4024-6, 62380-6, 3040-3 #### [facility] ([id number]) [address] [place] [address] 05313 Urea nitrogen [Mass/Vol] 14 mg/dL Normal 5-23 [facility] Comment on above: Performed By: #### C BCA, 23782-9, 36983-9, 5643-2, [facility], 95444- 9, 3298-7, 2157-6, 4024-6, 23691-0, 3040-3 #### [facility] ([id number]) [address] [place] [address] BRAIN WO CONTon CT BRAIN WO [...] Hathaway MD on 06/01/2023 6:15 AM Normal [facility] ETHANOLon 06-01-2023 Ethanol [Mass/Vol] mg/dL Normal 0.00-0.08 [facility] Comment on above: Result Comment: This report is intended for use in clinical monitoring or management of patients. Performed By: #### C BCA, 68806-7, 41243-1, 5643-2, CMP, 06224-3, 3298-7, 2157-6, 4024-6, 44594-8, 3040-3 #### [facility] ([id number]) [address] [place] [address] 33968 Glucose Glucometer (BldC) [M ass/Vol]on 06-01-2023 Glucose [Mass/Vol] 258 mg/dL High 65-99 [facility] HCG ( test) IA.rapi d Ql (S)on 06-01-2023 SERUM Negative Normal NEG [facility] Comment on above: Performed By: #### C BCA, 54111-9, 69684-0, 5643-2, CMP, 38624- 9, 3298-7, 2157-6, 4024-6, 86177-0, 3040-3 #### [facility] ([id number]) [address] [place] [address] 11772 LIPASEon 06-01-2023 Lipase [Catalytic activity/Vol] 36 U/L Normal 17-40 [facility] Comment on above: Performed By: #### C BCA, 24857-7, 27838-0, 5643-2, CMP, 23915- 9, 3298-7, 2157-6, 4024-6, 14545-5, 3040-3 #### [facility] ([id number]) [address] [place] [address] 36046 Lactate (P rm) [Moles/Vol]o n 06-01-2023 Lactate [Moles/Vol] 1.4 mmol/L Normal 0.4-2.0 [facility] Comment on above: Performed By: #### C BCA, 59926-4, 73028-0, 5643-2, CMP, 64336- 9, 3298-7, 2157-6, 4024-6, 87557-0, 3040-3 #### [facility] ([id number]) [address] [place] [address] 45347 LACTATE W/REFLEX 3.9 mmol/L High 0.4-2.0 [facility] Comment on above: Performed By: #### C BCA, 32069-8, 34144-9, 5643-2, CMP, 77855- 9, 3298-7, 2157-6, 4024-6, 89301-9, 3040-3 #### [facility] ([id number]) [address] [place] [address] 50312 MAGNESIUMon 06-01-2023 Magnesium [Mass/Vol] 2.0 mg/dL Normal 1.8-2.6 [facility] Comment on above: Performed By: #### C BCA, 28698-3, 69642-4, 5643-2, CMP, 45724- 9, 3298-7, 2157-6, 4024-6, 68695-0, 3040-3 #### [facility] ([id number]) [address] [place] [address] 30479 Salicylates [Mass/Vol]on SALICYLATE <4.0 Normal 2.0-25.0 [facility] Comment on above: Result Comment: Refe rence ranges are for therapeutic limits. Performed By: #### C BCA, 31133-4, 07707-7, 5643-2, CMP, 55958-6, 3298-7, 2157-6, 4024-6, 85530-9, 3040-3 #### [facility] ([id number]) [address] [place] [address] TROPONIN Ion 06-01-2023 Troponin I.cardiac [Mass/Vol] 0.01 ng/mL Normal 0.00-0.04 [facility] Comment on above: Performed By: #### C BCA, 84757-4, 30498-7, 5643-2, CMP, 87154- 9, 3298-7, 2157-6, 4024-6, 39759-6, 3040-3 #### [facility] ([id number]) [address] [place] [address] XR CHEST 1 VWon 06-01-2023 XR CHEST 1 VW XR CHEST 1 VW Clinical history: Aspiration pneumonia Views: 1 Comparison: 08/21/2021 Findings/Impression: 1. No acute infiltrate. No volume loss nor consolidation. There is no pleural effusion, pneumothorax, nor volume loss. Heart and mediastinal structures are unremarkable. Pulmonary vasculature stable. 2. No significant change Finalized by Srikanth Hathaway MD on 06/01/2023 6:06 AM Normal [facility] PAP IG, APT HPV RFX 16/18,45 on 04-14-2023 HPV APTIMA Negative Negative [facility] Comment on above: This nucleic acid am plification test detects fourteen high- risk HPV types (16,18,31,33,35,39,45,51,52,56,58,59,66,68) without differentiation. Performed at: - [facility] [id number] Inclusion Paraeducator: Korin Hernandez MD, Phone: [phone] Performed at: =G - [facility] [id number] Inclusion Paraeducator: Korin Hernandez MD, Phone: [phone] PAP IG (IMAGE GUIDED) Note . [facility] Comment on above: TESTS RESULT FLAG UN ITS REF RANGE LAB Clinician Provided Cytology Information Source.............Cervix;Endocervix No. of containers..01 ThinPrep Vial DIAGNOSIS: 01 NEGATIVE FOR INTRAEPITHELIAL LESION OR MALIGNANCY. Specimen adequacy: 01 Satisfactory for evaluation. Endocervical and/or squamous metaplastic cells (endocervical component) are present. Performed by: 01 Gina Fernandez, Safety Lamp Keeper ([facility]) . 01 Note: Note 01 The [...] Low,>-Panic High,A-Abnormal,AA-Critical Abnormal Performed at: 01 [address] [facility] [place] [address] Korin Hernandez MD, BRUSH-SPATULA CERVIX ENDOCERVIX [facility] CBC W Auto Differential pane l (Bld)on 04-11-2023 ABSOLUTE BASOPHIL 0.0 [facility] Comment on above: PERFORMED AT [facility] [address],[place] [address] Basophils/100 WBC (Bld) 0.3 % [facility] [...] mri xrayon 02-23 XR pre/post mri xray [facility] Main [address] [address] MRI Report Signed Patient: Tyrone Lim MR#: [id number] : 1985 Acct:[id number] Age/Sex: 38 / F ADM Date: 02/23/23 Loc: MR Room: Type: [facility] Attending Dr: Johana HUTCHINSON Copies to: EVANGELINA Israel Ordering Provider: EVANGELINA Israel Date of Service: 02/23/23 MR/MR lumbar spine wo/w con: Z98.1 ([id number]) XR/XR pre/post mri xray: Z98.1 MR lumbar [...] Jason Stone M.D.02/23/2023 5:57 PM Dictation Location: [place] [address] Transcribed By: [facility] 02/23/231756 Dictated By: Jason Stone II, MD 02/23/231743 Signed By: 02/23/231756 Normal [facility] Hepatitis C virus RNA [log u nits/volume] (viral load) in Serum or Plasma by BETITO withOrdered By: Ladarius Pitts on 12-13-2022 HCV RNA BETITO+probe [Log units/Vol] Not detected . [facility] No Panel InformationOrdered By: Ladarius Pitts on 12-13-2022 Hepatitis C RNA (PCR) Interpret See comment . [facility] Comment on above: The quantitative ran ge of this assay is 15 IU/mL to 100million IU/mL.Performed at: [address] [id number] Director: Augusto Lowry MD, Phone: [phone] Anaerobic cultureOrdered By: Berenice Haile on 09-22-2022 Bacteria identified Anaer cx Nom (Unsp spec) No Anaerobes Isolated 3 Days [facility] Bacteria identified Aer cx N om (Unsp spec)Ordered By: Berenice Haile on 09-22-2022 Aerobic Culture Methicillin Resis St aph Aureus [facility] Gram stain for investigation of transfusion reactionOrdered By: Berenice Haile on 09-22-2022 Microscopic observation Gram stain Nom (Unsp spec) [facility] PAP ACOG PANEL 2: 30 to 65on 06-02-2022 . . Normal [facility] Comment on above: Result Comment: Perf ormed at: WB Performed By: Issac### V B12LC #### [facility] [address] [place] [address] [address] Drew Castle Age Gdln ACOG Testing 30-65 Normal [facility] Comment on above: Performed By: #### V B12LC #### [facility] [address] [place] [address] [address] Drew Castle DIAGNOSIS: Comment Abnormal [facility] Comment on above: Result Comment: EPIT HELIAL CELL ABNORMALITY. LOW GRADE SQUAMOUS INTRAEPITHELIAL LESION (LSIL). FUNGAL ORGANISMS MORPHOLOGICALLY CONSISTENT WITH CANDICE SPECIES ARE PRESENT. Performed at: WB Performed By: #### V B12LC #### [facility] [address] [place] [address] [address] Drew Castle Electronically signed by: Comment Normal [facility] Comment on above: Result Comment: Liz Bryant MD, Pathologist Performed at: WB Performed By: #### V B12LC #### [facility] [address] [place] [address] Dr. Drew Castle HPV Aptima Negative Normal Negative [facility] Comment on above: Result Comment: This nucleic acid amplification test detects fourteen high-risk HPV types (16,18,31,33,35,39,45,51,52,56,58,59,66,68) without differentiation. Performed at: =G Performed By: #### V B12LC #### [facility] [address] [place] [address] Dr. Drew Castle HPV Genotype Reflex Comment Normal [facility] Comment on above: Result Comment: Crit eria not met, HPV Genotype not performed. Performed at: WB Performed By: #### V B12LC #### [facility] [address] [place] [address] Dr. Drew Castle Methodology: Comment Normal [facility] Comment on above: Result Comment: This liquid based ThinPrep(R) pap test was screened with the use of an image guided system. Performed at: WB Performed By: #### V B12LC #### [facility] [address] [place] [address] Dr. Drew Castle Note: Comment Normal [facility] Comment on above: Result Comment: The Pap smear is a screening test designed to aid in the detection of premalignant and malignant conditions of the uterine cervix. It is not a diagnostic procedure and should not be used as the sole means of detecting cervical cancer. Both false-positive and false-negative reports do occur. . Performed at: WB Performed By: #### V B12LC #### [facility] [address] [place] [address] Dr. Drew Castle Pathologist Provided ICD10 Comment Normal [facility] Comment on above: Result Comment: R87. 612, R87.5 Performed at: WB Performed By: #### V B12LC #### [facility] [address] [place] [address] Dr. Drew Castle Performed by: Comment Normal [facility] Comment on above: Result Comment: Carley Irvin, Safety Lamp Keeper (ASCP) Performed at: WB Performed By: #### V B12LC #### [facility] [address] [place] [address] Dr. Drew Castle Specimen adequacy: Comment Normal [facility] Comment on above: Result Comment: Sati sfactory for evaluation. Endocervical and/or squamous metaplastic cells (endocervical component) are present. Performed at: WB Performed By: #### V B12LC #### [facility] [address] [place] [address] Dr. Drew Castle VAGINITIS/VAGINOSIS DNA PROB Garry 05-26-2022 Candice species Positive Abnormal Negative [facility] Comment on above: Performed By: #### V B12LC #### [facility] [address] [place] [address] Dr. Drew Castle Gardnerella vaginalis Positive Abnormal Negative [facility] Comment on above: Performed By: #### V B12LC #### [facility] [address] [place] [address] Dr. Drew Castle Trichomonas vaginalis Negative Normal Negative [facility] Comment on above: Performed By: #### V B12LC #### [facility] [address] [place] [address] Dr. Drew Castle CULTURE WOUNDon 01-21-2022 CULTURE WOUND Culture Observations : No growth of aerobes at 48 hours. Culture Observations: No growth of anaerobes at 72 hours. Normal [facility] Comment on above: Performed By: #### W OUNDCX #### [facility] [address] [place] [address] Dr. Drew Castle VITAMIN B12on 08-08-2021 Cobalamin (Vitamin B12) [Mass/Vol] 1189 pg/mL Normal 232-1245 [facility] Comment on above: Performed By: #### V B12LC #### [facility] [address] [place] [address] Dr. Drew Castle CBC AUTO DIFFon 08-06-2021 BASO # 0.0 103/ul Normal 0.0-0.1 [facility] Comment on above: Performed By: #### V B12LC #### [facility] [address] [place] [address] Dr. Drew Castle Basophils/100 WBC (Bld) 0.4 % Normal 0.2-2.0 [facility] Comment on above: Performed By: #### V B12LC #### [facility] [address] [place] [address] Dr. Drew Castle EO # 0.3 103/ul Normal 0.0-0.7 [facility] Comment on above: Performed By: #### V B12LC #### [facility] [address] [place] [address] Dr. Drew Castle Eosinophils/100 WBC (Bld) 6.7 % Normal 0.9-7.0 [facility] Comment on above: Performed By: #### V B12LC #### [facility] [address] [place] [address] Dr. Drew Castle Erythrocyte distribution width (RBC) [Ratio] 13.8 % Normal 11.0-15.0 [facility] Comment on above: Performed By: #### V B12LC #### [facility] [address] [place] [address] Dr. Drew Castle Hematocrit (Bld) [Volume fraction] 37.3 % Normal 36.0-48.0 [facility] Comment on above: Performed By: #### V B12LC #### [facility] [address] [place] [address] [address] Drew Castle Hemoglobin (Bld) [Mass/Vol] 12.0 g/dL Normal 12.0-16.0 [facility] Comment on above: Performed By: #### V B12LC #### [facility] [address] [place] [address] [address] Drew Castle IG # 0.01 10e3/ul Normal 0.00-0.03 [facility] Comment on above: Performed By: #### V B12LC #### [facility] [address] [place] [address] [address] Drew Castle IG % 0.2 % Normal 0.0-0.5 [facility] Comment on above: Performed By: #### V B12LC #### [facility] [address] [place] [address] [address] Drew Castle LYMPH # 2.7 103/ul Normal 1.2-3.8 [facility] Comment on above: Performed By: #### V B12LC #### [facility] [address] [place] [address] [address] Drew Castle Lymphocytes/100 WBC (Bld) 59.4 % Normal 20.5-60.0 [facility] Comment on above: Performed By: #### V B12LC #### [facility] [address] [place] [address] [address] Drew Castle MANUAL DIFF REQ NO Normal [facility] Comment on above: Performed By: #### V B12LC #### [facility] [address] [place] [address] [address] Drew Castle MCH (RBC) [Entitic mass] 30.6 pg Normal 26.7-34.0 [facility] Comment on above: Performed By: #### V B12LC #### [facility] [address] [place] [address] [address] rDew Castle MCHC (RBC) [Mass/Vol] 32.2 g/dL Normal 29.9-35.2 [facility] Comment on above: Performed By: #### V B12LC #### [facility] [address] [place] [address] [address] Drew Castle MCV (RBC) [Entitic vol] 95.2 fL Normal 81.0-99.0 [facility] Comment on above: Performed By: #### V B12LC #### [facility] [address] [place] [address] [address] Drew Castle MONO # 0.4 103/ul Normal 0.3-0.8 [facility] Comment on above: Performed By: #### V B12LC #### [facility] [address] [place] [address] [address] Drew Castle Monocytes/100 WBC (Bld) 8.5 % Normal 1.7-12.0 [facility] Comment on above: Performed By: #### V B12LC #### [facility] [address] [place] [address] Dr. Drew Castle NEUT # 1.1 103/ul Critically low 1.4-6.5 [facility] Comment on above: Performed By: #### V B12LC #### [facility] [address] [place] [address] Dr. Drew Castle Neutrophils/100 WBC (Bld) 24.8 % Critically low 43.0-75.0 [facility] Comment on above: Performed By: #### V B12LC #### [facility] [address] [place] [address] Dr. Drew Castle Platelet mean volume (Bld) [Entitic vol] 11.9 fL Normal 9.5-13.5 [facility] Comment on above: Performed By: #### V B12LC #### [facility] [address] [place] [address] [address] Drew Castle PLT 212 103/ul Normal 150-450 [facility] Comment on above: Performed By: #### V B12LC #### [facility] [address] [place] [address] [address] Drew Castle RBC 3.92 106/ul Critically low 4.20-5.40 [facility] Comment on above: Performed By: #### V B12LC #### [facility] [address] [place] [address] Dr. Drew Castle WBC 4.6 103/ul Normal 4.0-11.0 [facility] Comment on above: Performed By: #### V B12LC #### [facility] [address] [place] [address] Dr. Drew Castle FERRITINon 08-06-2021 Ferritin [Mass/Vol] 24.0 ng/mL Normal 6.2-137.0 [facility] Comment on above: Performed By: #### I GAVINO BARRY, FERR, FT4 #### [facility] [address] [place] [address] Dr. Drew Castle FREE T4on 08-06-2021 Free T4 [Mass/Vol] 0.79 ng/dL Normal 0.76-1.46 [facility] Comment on above: Performed By: #### I GAVINO BARRY, FERR, FT4 #### [facility] [address] [place] [address] Dr. Drew Castle GLYCOHEMOGLOBIN A1Con 2021 ADA RECOMMENDATION SEE BELOW Normal [facility] Comment on above: Result Comment: ADA RECOMMENDED LIMIT 4.0 - 6.0 ADA THERAPEUTIC TARGET < 7.0 ACTION SUGGESTED > 7.0 Performed By: #### A 1C #### [facility] [address] [place] [address] Dr. Drew Castle Glucose [Mass/Vol] 111 mg/dL Normal [facility] Comment on above: Performed By: #### A 1C #### [facility] [address] [place] [address] Dr. Drew Castle HbA1c (Bld) [Mass fraction] 5.5 % Normal 4.5-6.2 [facility] Comment on above: Performed By: #### A 1C #### [facility] [address] [place] [address] Dr. Drew Castle IRONon 08-06-2021 Iron [Mass/Vol] 76.0 ug/dL Normal 50.0-170.0 [facility] Comment on above: Performed By: #### I ASHA, VITAD, FERR, FT4 #### [facility] [address] [address] [address] Drew Castle LIPID PROFILEon 08-06-2021 CHOL-HDL RATIO NORM SEE BELOW Normal [facility] Comment on above: Result Comment: 3.3 - 4.4 LOW RISK 4.4 - 7.1 AVERAGE RISK 7.1 - 11.0 MODERATE RISK >11.0 HIGH RISK Performed By: #### C MP, LIPID, TSH #### [facility] [address] [address] [address] Drew Castle Cholesterol [Mass/Vol] 150 mg/dL Normal <=200 [facility] Comment on above: Performed By: #### C MP, LIPID, TSH #### [facility] [address] [address] [address] Drew Castle Cholesterol in HDL [Mass/Vol] 59 mg/dL Normal 40-60 [facility] Comment on above: Performed By: #### C MP, LIPID, TSH #### [facility] [address] [place] [address] [address] Drew Castle Cholesterol in LDL [Mass/Vol] 63.4 mg/dL Normal [facility] Comment on above: Performed By: #### C MP, LIPID, TSH #### [facility] [address] [address] [address] Drew Castle Cholesterol.total/Cho lesterol in HDL [Mass ratio] 2.5 {ratio} Normal [facility] Comment on above: Performed By: #### C MP, LIPID, TSH #### [facility] [address] [place] [address] [address] Drew Castle HDL NORMAL > or = 60 mg/dl - LO W CARDIOVASCULAR RISK <40 mg/dl - HIGH CARDIOVASCULAR RISK Normal [facility] Comment on above: Performed By: #### C MP, LIPID, TSH #### [facility] [address] [address] [address] Drew Castle LDL CALC NORMAL SEE BELOW Normal [facility] Comment on above: Result Comment: <100 mg/dl OPTIMAL 100 - 129 mg/dl NEAR OR ABOVE OPTIMAL 130 - 159 mg/dl BORDERLINE HIGH 160 - 189 mg/dl HIGH >190 mg/dl VERY HIGH Performed By: #### C MP, LIPID, TSH #### [facility] [address] [place] [address] Dr. Drew Castle Triglyceride [Mass/Vol] 138 mg/dL Normal <=150 [facility] Comment on above: Performed By: #### C MP, LIPID, TSH #### [facility] [address] [place] [address] Dr. Drew Castle VLDL CALC 27.6 mg/dL Normal [facility] Comment on above: Performed By: #### C MP, LIPID, TSH #### [facility] [address] [place] [address] Dr. Drew Castle PROF 14(COMP METB)on 022 Albumin [Mass/Vol] 3.5 g/dL Normal 3.4-5.0 [facility] Comment on above: Performed By: #### C MP, LIPID, TSH #### [facility] [address] [place] [address] Dr. Drew Castle Albumin/Globulin [Mass ratio] 1.1 {ratio} Normal [facility] Comment on above: Performed By: #### C MP, LIPID, TSH #### [facility] [address] [place] [address] Dr. Drew Castle ALP [Catalytic activity/Vol] 61 U/L Normal 46-116 [facility] Comment on above: Performed By: #### C MP, LIPID, TSH #### [facility] [address] [place] [address] Dr. Drew Castle ALT [Catalytic activity/Vol] 29 U/L Normal 14-59 [facility] Comment on above: Performed By: #### C MP, LIPID, TSH #### [facility] [address] [place] [address] Dr. Drew Castle Anion gap [Moles/Vol] 13.9 mmol/L Normal [facility] Comment on above: Performed By: #### C MP, LIPID, TSH #### [facility] [address] [place] [address] Dr. Drew Castle AST [Catalytic activity/Vol] 22 U/L Normal 15-37 [facility] Comment on above: Performed By: #### C MP, LIPID, TSH #### [facility] [address] [address] [address] Drew Castle Bilirubin [Mass/Vol] 0.4 mg/dL Normal 0.2-1.0 [facility] Comment on above: Performed By: #### C MP, LIPID, TSH #### [facility] [address] [address] [address] Drew Castle Calcium [Mass/Vol] 8.7 mg/dL Normal 8.5-10.1 [facility] Comment on above: Performed By: #### C MP, LIPID, TSH #### [facility] [address] [place] [address] Dr. Drew Castle Chloride [Moles/Vol] 107 mmol/L Normal 98-107 [facility] Comment on above: Performed By: #### C MP, LIPID, TSH #### [facility] [address] [place] [address] Dr. Drew Castle CO2 [Moles/Vol] 24.9 mmol/L Normal 21.0-32.0 [facility] Comment on above: Performed By: #### C MP, LIPID, TSH #### [facility] [address] [place] [address] Dr. Drew Castle Creatinine [Mass/Vol] 0.76 mg/dL Normal 0.55-1.02 [facility] Comment on above: Performed By: #### C MP, LIPID, TSH #### [facility] [address] [place] [address] Dr. Drew Castle EGFR-AF SCOTTISH >60 Normal >=60 [facility] Comment on above: Performed By: #### C MP, LIPID, TSH #### [facility] [address] [place] [address] Dr. Drew Castle EGFR-NON AF SCOTTISH >60 Normal >=60 [facility] Comment on above: Performed By: #### C MP, LIPID, TSH #### [facility] [address] [address] [address] Drew Castle Globulin (S) [Mass/Vol] 3.1 g/dL Normal [facility] Comment on above: Performed By: #### C MP, LIPID, TSH #### [facility] [address] [address] [address] Drew Castle Glucose [Mass/Vol] 95 mg/dL Normal 74-106 [facility] [facility] Comment on above: Performed By: #### C MP, LIPID, TSH #### [facility] [address] [place] [address] Dr. Drew Castle Potassium [Moles/Vol] 3.8 mmol/L Normal 3.5-5.1 [facility] Comment on above: Performed By: #### C MP, LIPID, TSH #### [facility] [address] [place] [address] Dr. Drew Castle Protein [Mass/Vol] 6.6 g/dL Normal 6.4-8.2 [facility] Comment on above: Performed By: #### C MP, LIPID, TSH #### [facility] [address] [address] [address] Drew Castle Sodium [Moles/Vol] 142 mmol/L Normal 136-145 [facility] Comment on above: Performed By: #### C MP, LIPID, TSH #### [facility] [address] [place] [address] Dr. Drew Castle Urea nitrogen [Mass/Vol] 16.0 mg/dL Normal 7.0-18.0 [facility] Comment on above: Performed By: #### C MP, LIPID, TSH #### [facility] [address] [place] [address] Dr. Drew Castle Urea nitrogen/Creatinine [Mass ratio] 21.1 mg/mg Normal [facility] Comment on above: Performed By: #### C MP, LIPID, TSH #### [facility] [address] [place] [address] Dr. Drew Castle TSHon 08-06-2021 TSH 2.421 uIU/mL Normal 0.358-3.740 [facility] Comment on above: Performed By: #### C MP, LIPID, TSH #### [facility] [address] [place] [address] Dr. Drew Castle TSH RANGE SEE BELOW Normal [facility] Comment on above: Result Comment: <0.3 4 UIU/ml HYPERTHYROID 0.34-5.60 UIU/ml EUTHYROID >5.60 UIU/ml HYPOTHYROID Performed By: #### C MP, LIPID, TSH #### [facility] [address] [place] [address] Dr. Drew Castle UA RANDOM W/MICROSCOPICon BACTERIA NONE SEEN Normal NONE SEEN [facility] Comment on above: Performed By: #### V B12LC #### [facility] [address] [place] [address] Dr. Drew Castle Bilirubin Ql (U) SMALL Abnormal NEGATIVE [facility] Comment on above: Performed By: #### V B12LC #### [facility] [address] [place] [address] Dr. Drew Castle CAST NONE SEEN Normal NONE SEEN [facility] Comment on above: Performed By: #### V B12LC #### [facility] [address] [place] [address] Dr. Drew Castle Clarity (U) CLOUDY Abnormal CLEAR [facility] Comment on above: Performed By: #### V B12LC #### [facility] [address] [place] [address] Dr. Drew Castle Color (U) DK. YELLOW Normal YELLOW [facility] Comment on above: Performed By: #### V B12LC #### [facility] [address] [place] [address] Dr. Drew Castle Crystals LM Nom (Urine sed) NONE SEEN Normal NONE SEEN [facility] Comment on above: Performed By: #### V B12LC #### [facility] [address] [place] [address] Dr. Drew Castle Epithelial cells LM Ql (Urine sed) RARE Normal NONE SEEN /RARE [facility] Comment on above: Performed By: #### V B12LC #### [facility] [address] [address] [address] Drew Castle Glucose Ql (U) Negative Normal NEGATIVE [facility] Comment on above: Performed By: #### V B12LC #### [facility] [address] [address] [address] Drew Castle Hemoglobin Ql (U) Negative Normal NEGATIVE [facility] Comment on above: Performed By: #### V B12LC #### [facility] [address] [place] [address] Dr. Drew Castle Ketones Ql (U) Negative Normal NEGATIVE [facility] Comment on above: Performed By: #### V B12LC #### [facility] [address] [place] [address] Dr. Drew Castle LEUKOCYTES Negative Normal NEGATIVE [facility] Comment on above: Performed By: #### V B12LC #### [facility] [address] [place] [address] Dr. Drew Castle MUCOUS NONE SEEN Normal NONE SEEN [facility] Comment on above: Performed By: #### V B12LC #### [facility] [address] [place] [address] Dr. Drew Castle Nitrite Ql (U) Negative Normal NEGATIVE [facility] Comment on above: Performed By: #### V B12LC #### [facility] [address] [place] [address] Dr. Drew Castle pH (U) 6.5 [pH] Normal 5-9 [facility] Comment on above: Performed By: #### V B12LC #### [facility] [address] [place] [address] Dr. Drew Castle RBC NONE SEEN Abnormal 0-2 [facility] Comment on above: Performed By: #### V B12LC #### [facility] [address] [place] [address] Dr. Drew Castle SPEC GRAVITY 1.025 Normal 1.005-<=1.02 5 [facility] Comment on above: Performed By: #### V B12LC #### [facility] [address] [place] [address] Dr. Drew Castle UA PROTEIN TRACE Normal NEGATIVE/ TRACE [facility] Comment on above: Performed By: #### V B12LC #### [facility] [address] [place] [address] Dr. Drew Castle Urobilinogen Qn (U) 1.0 {Jeff'U}/dL Normal 0.2 - 1. 0 [facility] Comment on above: Performed By: #### V B12LC #### [facility] [address] [place] [address] Dr. Drew Castle WBC NONE SEEN Normal NONE SEEN [facility] Comment on above: Performed By: #### V B12LC #### [facility] [address] [place] [address] Dr. Drew Castle VITAMIN D 25 OHon 08-06-2021 VIT D 25-OH 45.7 ng/mL Normal [facility] Comment on above: Performed By: #### I ASHA VITJAYA FERR, FT4 #### [facility] [address] [place] [address] Dr. Drew Castle VIT D RANGES SEE BELOW Normal [facility] Comment on above: Result Comment: <20 ng/mL Vit D deficient 20 - <30 ng/mL Vit D insufficient 30 - 100 ng/mL Vit D sufficient >100 ng/mL Potential Toxicity Performed By: #### I ASHA VITAD, FERR, FT4 #### [facility] [address] [place] [address] Dr. Drew Castle Complete Blood Count Auto Di ffon 03-03-2021 Basophils (Bld) [#/Vol] 0.0 10*3/uL 0.0-0.2 [employer] Other Basophils/100 WBC (Bld) 0.2 % . [employer] Other Eosinophils (Bld) [#/Vol] 0.2 10*3/uL 0.0-0.45 [employer] Other Eosinophils/100 WBC (Bld) 2.4 % . [employer] Other Erythrocyte distribution width (RBC) [Ratio] 14.0 % 11.9-15.3 [employer] Other Hematocrit (Bld) [Volume fraction] 39.2 % 34.0-46.4 [employer] Other Hemoglobin (Bld) [Mass/Vol] 13.6 g/dL 11.8-15.4 [employer] Other Lymphocytes (Bld) [#/Vol] 2.3 10*3/uL 1.00-4.8 [employer] Other Lymphocytes/100 WBC (Bld) 31.0 % . [employer] Other MCH (RBC) [Entitic mass] 31.3 pg 24.7-34.3 [employer] Other MCH (RBC) [Entitic mass] 34.6 pg 32.0-35.0 [employer] Other MCV (RBC) [Entitic vol] 90.4 fL 80-100 [employer] Other Monocytes (Bld) [#/Vol] 0.3 10*3/uL 0.0-0.8 [employer] Other Monocytes/100 WBC (Bld) 4.7 % . [employer] Other Neutrophils (Bld) [#/Vol] 4.5 10*3/uL 1.8-7.7 [employer] Other Neutrophils/100 WBC (Bld) 61.7 % . [employer] Other Platelet mean volume (Bld) [Entitic vol] 8.3 fL 6.3-10.7 [employer] Other Platelets (Bld) [#/Vol] 232 10*3/uL 150-450 [employer] Other RBC (Bld) [#/Vol] 4.34 10*6/uL 3.60-5.00 [employer] Other WBC (Bld) [#/Vol] 7.3 10*3/uL 3.8-11.6 [employer] Other Complete Blood Count Auto Diff 7.3 4.5-11.0 [employer] Other Complete Blood Count Auto Diff 0.2 0-0.5 [employer] Other Prothrombin Time INRon 03-03 INR Coag (PPP) [Relative time] 1.2 {INR} [employer] Other PT Coag (PPP) [Time] 13.3 s 9.0-12.9 [facility] [employer] Other Acetaminophen levelOrdered B y: Sai Mary on 12-27-2020 Acetaminophen Level <5 Low 10 - 30 ug/mL [employer] Phone: Interpretation and review of laboratory results Abnormal [employer] Work Phone: [employer] Work Phone: Blood Gas, VenousOrdered By: Sai Hernandez on 12-27-2020 Manuel Test NOT REPORTED [employer] Phone: Carboxyhemoglobin NOT REPORTED 0.0 - 5.0 % [employer] Phone: Comment on above: FIO2 NOT REPORTED [employer] Work Phone: HCO3 (Bld) [Moles/Vol] 27.8 mmol/L 24.0 - 30.0 mmol/L [employer] Work Phone: Interpretation and review of laboratory results Abnormal [employer] Work Phone: Methemoglobin NOT REPORTED 0.0 - 1.9 % [employer] Work Phone: Mode NOT REPORTED [employer] Work Phone: Negative Base Excess, Rm NOT [...] Work Phone: Text for Respiratory NOT REPORTED [facility] Work Phone: Total Hb NOT REPORTED 12.0 - 16.0 g/dl [facility] Work Phone: Total Rate NOT REPORTED [employer] Work Phone: VT NOT REPORTED [employer] Work Phone: [employer] Work Phone: CBC Auto DifferentialOrdered By: Sai Hernandez on 12-27-2020 [employer] [facility]os # 0.26 [facility] Work Phone: Absolute Immature Granulocyte <0.03 [employer] Work Phone: Absolute Lymph # 1.88 [facility] Work Phone: [facility] Ector # 0.36 [facility] Work Phone: Basophils (Bld) [#/Vol] 10*3/uL [employer] Work Phone: Basophils/100 WBC (Bld) 0 % 0 - 2 % [employer] Work Phone: Differential Type NOT REPORTED [employer] Work Phone: Eosinophils/100 WBC (Bld) 5 % High 1 - 4 % [employer] Phone: Hematocrit (Bld) [Volume fraction] 38.9 % 36.3 - 47.1 % [employer] Phone: Hemoglobin.gastrointe stinal spec 1 Ql (Stl) 12.5 g/dL 11.9 - 15.1 g/dL [employer] Work Phone: Immature granulocytes/100 WBC (Bld) 0 % 0 [employer] Work Phone: Interpretation and review of laboratory results Abnormal [employer] Phone: Lymphocytes/100 WBC (Bld) 38 % 24 - 43 % [employer] Work Phone: MCH (RBC) [Entitic mass] 29.3 pg 25.2 - 33.5 pg [employer] Work Phone: MCHC (RBC) [Mass/Vol] 32.1 g/dL 28.4 - 34.8 g/dL [employer] Phone: MCV (RBC) [Entitic vol] 91.3 fL 82.6 - 102.9 fL [employer] Phone: Monocytes/100 WBC (Bld) 7 % 3 - 12 % [employer] Work Phone: NRBC Automated 0.0 0.0 per 100 WBC [employer] Phone: Platelet distribution width (Bld) [Ratio] 13.3 % 11.8 - 14.4 % [employer] Phone: Platelet Estimate NOT REPORTED [employer] Phone: Platelet mean volume (Bld) [Entitic vol] 10.4 fL 8.1 - 13.5 fL [employer] Phone: Platelets (Bld) [#/Vol] 181 10*3/uL [employer] Work Phone: RBC (Bld) [#/Vol] 4.26 10*6/uL 3.95 - 5.1 1 m/uL [employer] Work Phone: RBC (Bld) [#/Vol] NOT REPORTED [employer] Work Phone: Segmented neutrophils/100 WBC (Bld) 50 % 36 - 65 % [employer] Work Phone: Segs [employer] 2.49 [employer] Work Phone: WBC (Bld) [#/Vol] 5.0 10*3/uL [employer] Work Phone: WBC (Bld) [#/Vol] NOT REPORTED [employer] Work Phone: [employer] Work Phone: Comprehensive Metabolic Pane l w/ Reflex to MGOrdered By: Sai Hernandez on 12-27-2020 Albumin [Mass/Vol] 4.1 g/dL 3.5 - 5.2 g/dL [employer] Phone: Albumin/Globulin [Mass ratio] 1.7 {ratio} [employer] Phone: ALP (Bld) [Catalytic activity/Vol] 92 U/L 35 - 104 U/L [employer] Phone: ALT [Catalytic activity/Vol] 19 U/L 5 - 33 U/L [employer] Phone: Anion gap [Moles/Vol] 13 mmol/L 9 - 17 mmol/L [employer] Phone: AST [Catalytic activity/Vol] 25 U/L <32 [employer] Phone: Bilirubin [Mass/Vol] 0.57 mg/dL 0.3 - 1 .2 mg/dL [employer] Phone: Calcium [Mass/Vol] 9.4 mg/dL 8.6 - 10. 4 mg/dL [employer] Phone: Chloride [Moles/Vol] 101 mmol/L 98 - 10 7 mmol/L [employer] Phone: CO2 [Moles/Vol] 21 mmol/L 20 - 31 mmol/L [employer] Phone: Creatinine [Mass/Vol] 0.73 mg/dL 0.50 - 0.90 mg/dL [employer] Phone: Free PSA/Total PSA [Mass fraction] 6.5 g/dL 6.4 - 8.3 g/dL [employer] Phone: GFR >60 >60 mL/min [employer] Phone: GFR Non- >60 >60 mL/min [employer] Phone: Glucose [Mass/Vol] 104 mg/dL High 70 - 99 mg/dL [employer] Phone: Potassium [Moles/Vol] 4.0 mmol/L 3.7 - 5.3 mmol/L [facility] Work Phone: Sodium [Moles/Vol] 135 mmol/L 135 - 144 mmol/L [facility] Work Phone: Urea nitrogen (BldV) [Mass/Vol] 9 mg/dL 6 - 20 mg/dL [facility] Work Phone: Urea nitrogen/Creatinine (Bld) [Mass ratio] 12 [facility] Work Phone: Drug screen multi urineOrder [...] Interpretation and review of laboratory results Abnormal [facility] Work Phone: MDMA, Urine NOT REPORTED NEGATIVE [employer] Work Phone: Methadone Screen, Urine Negative NEGATIVE [facility] Work Phone: Methamphetamine, Urine Positive Abnormal NEGATIVE [facility] Work Phone: Opiates, Urine Negative NEGATIVE [facility] Work Phone: Oxycodone Screen, Ur Negative NEGATIVE [facility] Work Phone: Phencyclidine, Urine Negative NEGATIVE [facility] Work Phone: Propoxyphene, Urine Negative NEGATIVE [facility] Work Phone: Test Information NOT REPORTED [facility] Work Phone: Tricyclic Antidepressants, Urine Negative NEGATIVE [employer] Phone: Comment on above: Drug screen results are to be used for medical purposes only. All positive results are unconfirmed. Testing for employment or legal uses should be sent to a reference laboratory for confirmation. [employer] Phone: EthanolOrdered By: Sai munson on 12-27-2020 Ethanol [Mass/Vol] mg/dL <10 mg/dL [employer] Phone: Ethanol percent <0.010 <0.010 % [employer] [facility] Work Phone: [employer] Phone: Glucose, Whole BloodOrdered By: Sai Hernandez on 12-27-2020 Glucose [Mass/Vol] 75 mg/dL 74 - 100 mg/dL [employer] Phone: [employer] Phone: HCG, Quantitative, Ordered By: Sai Hernandez on 12-27-2020 hCG Quant <1 <5 IU/L [employer] Phone: Comment on above: Non-preg premeno <=5 Postmeno <=8 Male <=3 If HCG results do not concur with clinical observations, additional testing to confirm results is recommended. Elevated results not associated with may be found in patients with other diseases such as tumors of the germ cells (testis, ovaries, etc.), bladder, pancreas, stomach, lungs, and liver. [employer] Phone: Laboratory - Chemistry and C hemistry - challengeOrdered By: Sai Hernandez on 12-27-2020 GFR/1.73 sq M.predicted MDRD (S/P/Bld) [Vol rate/Area] [employer] Phone: Comment on above: Average GFR for 30-3 9 years old: 107 mL/min/1.73sq m Chronic Kidney Disease: <60 mL/min/1.73sq m Kidney failure: <15 mL/min/1.73sq m eGFR calculated using average adult body mass. Additional eGFR calculator available at: http://www.[employer]/multiple_crcl_2012.htm Stage 1: Some kidney damage normal GFR Stage 2: Mild kidney damage GFR 60-89 Stage 3: Moderate kidney damage GFR 30-59 Stage 4: Severe kidney damage GFR 15-29 Stage 5: Severe kidney damage GFR <15 ESRD - chronic treatment by dialysis or transplant No Panel InformationOrdered By: Sai Hernandez on 12-27-2020 Interpretation and review of laboratory results Abnormal [facility] Work Phone: [facility] Work Phone: SalicylateOrdered By: Gonzalez Hernandez on 12-27-2020 Salicylate Lvl <1 Low 3 - 10 mg/dL [facility] Work Phone: Urinalysis, reflex to micros copicOrdered By: Sai Hernandez on 12-27-2020 Bilirubin Urine Negative NEGATIVE [facility] Work Phone: Color, UA Yellow Yellow [facility] Work Phone: Glucose, Ur Negative NEGATIVE [facility] Work Phone: Interpretation and review of laboratory results Abnormal [facility] Work Phone: Ketones Ql (U) Negative NEGATIVE [facility] Work Phone: Leukocyte esterase Test strip Ql (U) Negative NEGATIVE [facility] Work Phone: Nitrite, Urine Negative NEGATIVE [facility] Work Phone: pH, UA 6.0 [facility] Work Phone: Protein, UA Negative NEGATIVE [facility] Work Phone: Specific [place], UA <1.005 Low [facility] Work Phone: Turbidity UA Clear Clear [facility] Work Phone: Urinalysis Comments NOT REPORTED [facility] Work Phone: Urine Hgb Negative NEGATIVE [employer] Phone: Urobilinogen, Urine Normal Normal [employer] Phone: [employer] Work Phone: Operative Reporton Operative Report MR#: [id number] [facility] Pt. Name: Tyrone Lim Room #: [...] to interact and give feedback. The x-ray technician assistant was supervised and instructed to operate the [...] 5-inch Andrew spinal needle was inserted using olfu-fjf-eysqhx-of-the-n eedle technique. The needle was advanced into [...] Mckeon MD Date Trans: 07/08/2020 02:30 P/ [id number] Normal [facility] SPINAL PAIN BLOCKon 07-09-19 SPINAL PAIN BLOCK [facility] Department of Radiology [address] [place] [id number] == Patient Name: TYRONE LIM : 1985 Sex: F Age: Race: White Pt. Location: 18 Patient Status: Ordered Date: 07/08/2020 5:00:00 AM Completed Date: 07/08/2020 01:13 PM Requesting Provider: ALEYDA GOMEZ Attending Provider: Report Copy To: Signs & Symptoms: M96.1 Postlaminectomy syndrome, not elsewhere classified I10 History: Comments: 20635 (50) BILAT S1 TFESI #2 Exam: SPINAL PAIN BLOCK == SPINAL PAIN BLOCK 07/08/2020 1:13 PM SIGNS AND SYMPTOMS: M96.1 Postlaminectomy syndrome, not elsewhere classified I10 TECHNOLOGIST COMMENTS:bilateral S1 TFE .34 min. fluoro. time used - Dr. Gomez IMPRESSION: 0.34 minutes of fluoroscopy was provided for Dr. Gomez for an epidural pain block. Millicent FerraroRT-R Buffing Wheel Raker Electronically signed: ONLY DOCUMENTATION. Transcribed by: [email or web address], User Resident: Electronically Signed by: ONLY DOCUMENTATION @ 07/08/2020 02:14 PM Normal [facility] Comment on above: Order Comment: [id number] (50) BILAT S1 TFESI #2 Operative Reporton Operative Report MR#: [id number] [facility] Pt. Name: Tyrone Lim Room #: MERITUS [...] to interact and give feedback. The x-ray technician assistant was supervised and instructed to operate the [...] 25-gauge, 5-inch andrew needle was inserted using lpff-svo-submxv-of-the-n eedle technique. The needle was advanced into [...] Mckeon MD Date Trans: 06/23/2020 12:38 P/ [id number] Normal [facility] SPINAL PAIN BLOCKon 06-24-19 21 SPINAL PAIN BLOCK [facility] Department of Radiology [address] [place] [id number] == Patient Name: TYRONE LIM : 1985 Sex: F Age: Race: White Pt. Location: 18 Patient Status: Ordered Date: 06/11/2020 5:00:00 AM Completed Date: 06/23/2020 11:44 AM Requesting Provider: ALEYDA GOMEZ Attending Provider: Report Copy To: Signs & Symptoms: M96.1 Postlaminectomy syndrome, not elsewhere classified I10 History: Comments: 50027 (50) BILAT S1 TFESI #1 Exam: SPINAL PAIN BLOCK == SPINAL PAIN BLOCK 06/23/2020 11:44 AM SIGNS AND SYMPTOMS: M96.1 Postlaminectomy syndrome, not elsewhere classified I10 TECHNOLOGIST COMMENTS:Dr. Gomez used .43 min of white fluoro time arti S1 TFE IMPRESSION: 0.43 minutes of fluoroscopy was provided for her Patricia for an epidural pain block. AMBAR Burch [employer] Wheel Raker Electronically signed: ONLY DOCUMENTATION. Transcribed by: [email or web address], User Resident: Electronically Signed by: ONLY DOCUMENTATION @ 06/23/2020 03:20 PM Normal [facility] Comment on above: Order Comment: [id number] (40) BILAT S1 TFESI #1 MRI LUMBAR SPINE WO CONTRAST on 09-05-2019 MRI LUMBAR SPINE WO CONTRAST [facility] Department of Radiology [address] [place] [id number] == Patient Name: TYRONE LIM : 1985 Sex: F Age: Race: White Pt. Location: 18 Patient Status: D Ordered Date: 08/23/2019 8:55:00 AM Completed Date: 09/05/2019 11:17 AM Requesting Provider: ALEYDA GOMEZ Attending Provider: Report Copy To: Signs & Symptoms: M54.5 Low back pain I10 History: [employer] Auth via [employer] Cover[employer] for CPT 42125 Auth#[id number] Valid 08/28/19-11/26/19 *Sla No to all COVID [...] described. Electronically signed: Arsh Hatfield. Transcribed by: [email or web address], User Resident: Electronically Signed by: ARSH HATFIELD @ 09/06/2019 01:26 PM Normal [facility] Comment on above: Order Comment: Sharona Gipson Operative Reporton 0 Operative Report MR#: [id number] [facility] Pt. Name: Tyrone Lim Room #: [...] to interact and give feedback. The x-ray technician assistant was supervised and instructed to operate the [...] 5-inch Andrew spinal needle was inserted using mfqc-pef-spnoyb-of-the-n eedle technique. The needle was advanced into [...] Armijo MD Date Trans: 08/07/2019 03:57 P/ [id number] Normal [facility] SPINAL PAIN BLOCKon 08-07-19 20 SPINAL PAIN BLOCK [facility] Department of Radiology [address] [place] [phone] == Patient Name: TYRONE LIM [...] for an epidural pain block. AMBAR Alcazar Buffing Wheel Raker Electronically signed: ONLY DOCUMENTATION. Transcribed by: [email or web address], User Resident: Electronically Signed by: ONLY DOCUMENTATION @ 08/13/2019 09:18 AM Normal [facility] Comment on above: Order Comment: LEFT S1 TFESI X1 Otheron 2019 Left foot: No acute osseous abnormality. Right foot: Nondisplaced fracture through the 5th metatarsal head without intra-articular extension. Comminuted distal 4th metatarsal fracture with slight impaction and overriding. No joint dislocation is noted. Soft tissue swelling over the forefoot is noted. [facility]: TWO XRA Y VIEWS OF THE [...] tissue swelling over the midfoot is noted. [facility] S[facility], M[facility]pn Incoming Radiant Results From PT [facility] - 2019 3:40 PM EST EXAMINATION: TWO [...] tissue swelling over the forefoot is noted. [place] Basic Metabolic Panelon 12-07 Anion gap [Moles/Vol] 10 mmol/L 9 - 17 mmol/L [place] Bun/Cre Ratio 9 [place], [place] Calcium [Mass/Vol] 9.6 mg/dL 8.6 - 10. 4 mg/dL [place] Chloride [Moles/Vol] 107 mmol/L 98 - 10 7 mmol/L [place] CO2 [Moles/Vol] 22 mmol/L 20 - 31 mmol/L [place] Creatinine [Mass/Vol] 0.89 mg/dL 0.5 - 0.9 mg/dL [place] GFR >60 >60 mL/min [place], [place] GFR Non- >60 >60 mL/min [place] Glucose [Mass/Vol] 75 mg/dL 70 - 99 mg/dL [place] Interpretation and review of laboratory results Abnormal [place] Potassium [Moles/Vol] 5.9 mmol/L High 3.7 - 5.3 mmol/L [place] Sodium [Moles/Vol] 139 mmol/L 135 - 144 mmol/L [place] Urea nitrogen [Mass/Vol] 8 mg/dL 6 - 20 mg/dL [place] C-Reactive Proteinon 019 CRP [Mass/Vol] 3.4 mg/L 0 - 5 mg/L [place] CBC Auto Differentialon 12-07 Basophils (Bld) [#/Vol] 0.03 10*3/uL [place] Basophils/100 WBC (Bld) 0 % 0 - 2 % [place] Differential Type NOT REPORTED [place] Eosinophils (Bld) [#/Vol] 0.39 10*3/uL [place] Eosinophils/100 WBC (Bld) 4 % 1 - 4 % [place] Erythrocyte distribution width (RBC) [Ratio] 12.7 % 11.8 - 14.4 % [place] Hematocrit (Bld) [Volume fraction] 46.9 % 36.3 - 47.1 % [place] Hemoglobin (Bld) [Mass/Vol] 15.6 g/dL High 11.9 - 15.1 g/dL [place] Immature granulocytes (Bld) [#/Vol] 1 % High 0 [place] Immature granulocytes (Bld) [#/Vol] 0.05 10*3/uL [place] Interpretation and review of laboratory results Abnormal [place] Lymphocytes (Bld) [#/Vol] 2.86 10*3/uL [place] Lymphocytes/100 WBC (Bld) 30 % 24 - 43 % [place] MCH (RBC) [Entitic mass] 30.6 pg 25.2 - 33.5 pg [place] MCHC (RBC) [Mass/Vol] 33.3 g/dL 28.4 - 34.8 g/dL [place] MCV (RBC) [Entitic vol] 92.0 fL 82.6 - 102.9 fL [place] Monocytes (Bld) [#/Vol] 0.62 10*3/uL [place] Monocytes/100 WBC (Bld) 7 % 3 - 12 % [place] Platelet mean volume (Bld) [Entitic vol] 11.0 fL 8.1 - 13.5 fL [place] Platelets (Bld) [#/Vol] 218 10*3/uL [place] Platelets (Bld) [#/Vol] NOT REPORTED [place] RBC (Bld) [#/Vol] 5.10 10*6/uL 3.95 - 5.1 1 m/uL [facility] CH[facility]NA RBC morphology finding Nom (Bld) NOT REPORTED [facility] Segmented neutrophils/100 WBC (Bld) 58 % 36 - 65 % [facility] Segs Absolute 5.57 [facility] [place] WBC (Bld) [#/Vol] 9.5 10*3/uL [place] WBC (Bld) [#/Vol] 0.0 10*3/uL 0.0 per 10 0 WBC [place] WBC Morphology NOT REPORTED [facility] D-Dimer, Quantitativeon 12-07 D-Dimer, Quant 0.57 High [facility] [place] Comment on above: Elevated levels of D [...] Interpretation and review of laboratory results Abnormal [facility] [place] MRI LUMBAR SPINE WO CONTRAST on 01-03-2019 Sagar, [facility] Incoming Radiant Results From PT PAL/Pacs - 01/03/2019 5:32 PM EDT EXAMINATION: MRI [...] and contacting the left L5 nerve root. [place] EXAMINATION: MRI OF THE LUMBAR SPINE [...] likely contacts the left L5 nerve root. [place] Large disc protrusio n within the left L5-S1 foramina causing severe stenosis and contacting the left L5 nerve root. [place] Metabolic Panelon 01-03-2019 GFR/1.73 sq M predicted among non-blacks MDRD (S/P/Bld) [Vol rate/Area] [place] Comment on above: Average GFR for 30-3 9 years old: 107 mL/min/1.73sq m Chronic Kidney Disease: <60 mL/min/1.73sq m Kidney failure: <15 mL/min/1.73sq m eGFR calculated using average adult body mass. Additional eGFR calculator available at: http://www.[employer]/multiple_crcl_2012.htm Stage 1: Some kidney damage normal GFR Stage 2: Mild kidney damage GFR 60-89 Stage 3: Moderate kidney damage GFR 30-59 Stage 4: Severe kidney damage GFR 15-29 Stage 5: Severe kidney damage GFR <15 ESRD - chronic treatment by dialysis or transplant Sedimentation Rateon 019 Sed Rate 5 mm 0 - 20 mm [place] Urinalysis with Microscopico n 01-03-2019 Amorphous, UA 1+ Abnormal None [place], [place] Bacteria, UA TRACE Abnormal None [place] Bilirubin Urine Negative NEGATIVE [place], [place] Casts UA NOT REPORTED /LPF [place] Color, UA YELLOW YELLOW [place] Crystals UA CALCIUM OXALATE Abnormal None /HPF [place] Crystals UA 2 TO 5 Abnormal None /HPF [place] Epithelial Cells UA 2 TO 5 [place] Glucose, Ur Negative NEGATIVE [place] Interpretation and review of laboratory results Abnormal [place] Ketones Ql (U) TRACE Abnormal NEGATIVE [place] Leukocyte esterase Test strip Ql (U) Negative NEGATIVE [place] Mucus, UA NOT REPORTED None [place] Nitrite, Urine Negative NEGATIVE [place] Other Observations UA NOT REPORTED NOT REQ. [place] pH, UA 5.5 [place] Protein (U) [Mass/Vol] Negative NEGATIVE [place] RBC (U) [#/Vol] None [place], [place] Renal Epithelial, Urine NOT REPORTED 0 /HPF [place] Specific [place], UA 1.020 [place], [place] Trichomonas, UA NOT REPORTED None [place], [place] Turbidity UA CLEAR CLEAR [place] Urinalysis Comments NOT REPORTED [place] Urine Hgb Negative NEGATIVE [place] Urobilinogen, Urine ELEVATED Abnormal Normal [place] WBC, UA 0 TO 2 [place] Yeast, UA NOT REPORTED None [place] - [place] XR CHEST STANDARD (2 VW)on No acute cardiopulmo nary pathology. [place] EXAMINATION: TWO XRA Y VIEWS OF [...] structures and soft tissues are grossly intact. [place] Sagar, [facility] Incoming Radiant Results From [employer] - 01/03/2019 4:49 PM EDT EXAMINATION: TWO [...] grossly intact. IMPRESSION: No acute cardiopulmonary pathology. [place] VL DUP LOWER EXTREMITY VENOU S LEFTon 11-15-2018 [facility] l Vascular Lower Extremities DVT Study Procedure Patient Name FISHE Date of Study 11/14/2018 HOLGER Hewitt Date of 1985 Gender Female Age 33 year(s) Race Room Number Corporate ID # [id number] Patient MR # [id number] Paper Tube Grader FANG Banerjee Interpreting Physician Gino Shepherd Referring Referring Physician Nurse Practitioner Additional Comments Study ordered by Misbah Oreilly DPJoanne Copy to Rosana COHW. Procedure Type of Study: Veins: Lower Extremities [...] !Popliteal !Phasic! ! ! + ----+------+------+----- ---+ [facility]- [place], [place] Sagar, tanna Incoming Cardio Results From [facility]/ - 11/15/2018 12:52 PM EDT [facility] Vascular Lower Extremities DVT Study Procedure Patient Name JENNA Date of Study 11/14/2018 HOLGER Hewitt Date of 1985 Gender Female Age 33 year(s) Race Room Number Corporate ID # [id number] Patient MR # [id number] Paper Tube Grader FANG Banerjee Interpreting Physician Gino Shepherd Referring [...] !Phasic! ! ! + ----+------+------+----- --- + [place] Brain Natriuretic Peptideon 11-14-2018 Natriuretic peptide B (Bld) [Mass/Vol] 50 pg/mL <300 [place] Comment on above: Pro-BNP results audrey ot be compared to BNP results. Natriuretic peptide B (Bld) [Mass/Vol] Pro-BNP Reference Range: [place] Comment on above: Rule Out: <300 [place] Zone: Age <50 300-450 Age 50-75 300-900 Age >75 300-1800 Usually represents mild to moderate HF but other cardiopulmonary causes cannot be ruled out. Rule In: Age <50 >450 Age 50-75 >900 Age >75 >1800 CBC Auto Differentialon 11-05 Basophils (Bld) [#/Vol] 0.07 10*3/uL [place] Basophils/100 WBC (Bld) 1 % 0 - 2 % [place] Differential Type NOT REPORTED [place] Eosinophils (Bld) [#/Vol] 0.73 10*3/uL High [place] Eosinophils/100 WBC (Bld) 11 % High 1 - 4 % [place] Erythrocyte distribution width (RBC) [Ratio] 13.2 % 11.8 - 14.4 % [place] Hematocrit (Bld) [Volume fraction] 39.1 % 36.3 - 47.1 % [place] Hemoglobin (Bld) [Mass/Vol] 12.8 g/dL 11.9 - 15.1 g/dL [place] Immature granulocytes (Bld) [#/Vol] 1 % High 0 [place] Immature granulocytes (Bld) [#/Vol] 0.07 10*3/uL [place] Interpretation and review of laboratory results Abnormal [place] Lymphocytes (Bld) [#/Vol] 1.78 10*3/uL [place] Lymphocytes/100 WBC (Bld) 27 % 24 - 43 % [place] MCH (RBC) [Entitic mass] 31.0 pg 25.2 - 33.5 pg [place] MCHC (RBC) [Mass/Vol] 32.7 g/dL 28.4 - 34.8 g/dL [place] MCV (RBC) [Entitic vol] 94.7 fL 82.6 - 102.9 fL [place] Monocytes (Bld) [#/Vol] 0.59 10*3/uL [place] Monocytes/100 WBC (Bld) 9 % 3 - 12 % [place] Morphology Cristiano (Bld) [Interp] Normal [place] Platelet mean volume (Bld) [Entitic vol] 11.2 fL 8.1 - 13.5 fL [place] Platelets (Bld) [#/Vol] NOT REPORTED [place] Platelets (Bld) [#/Vol] 213 10*3/uL [place] RBC (Bld) [#/Vol] 4.13 10*6/uL 3.95 - 5.1 1 m/uL [place] RBC morphology finding Nom (Bld) NOT REPORTED [place] Segmented neutrophils/100 WBC (Bld) 51 % 36 - 65 % [place] Segs Absolute 3.36 [place] WBC (Bld) [#/Vol] 6.6 10*3/uL [place] WBC (Bld) [#/Vol] 0.0 10*3/uL 0.0 per 10 0 WBC [place] WBC Morphology NOT REPORTED [place], [place] Comprehensive Metabolic Pane l w/ Reflex to MGon 11-14-2018 Albumin [Mass/Vol] 3.6 g/dL 3.5 - 5.2 g/dL [place] Albumin/Globulin [Mass ratio] 1.3 {ratio} [place] ALP [Catalytic activity/Vol] 407 U/L High 35 - 104 U/L [place] ALT [Catalytic activity/Vol] 723 U/L High 5 - 33 U/L [place] Anion gap [Moles/Vol] 13 mmol/L 9 - 17 mmol/L [place] AST [Catalytic activity/Vol] 657 U/L High <32 [place] Bilirubin Ql (U) 1.91 mg/dL High 0.3 - 1.2 mg/dL [place] Bun/Cre Ratio 19 [place], [place] Calcium [Mass/Vol] 8.9 mg/dL 8.6 - 10. 4 mg/dL [place] Chloride [Moles/Vol] 103 mmol/L 98 - 10 7 mmol/L [place] CO2 [Moles/Vol] 24 mmol/L 20 - 31 mmol/L [place] Creatinine [Mass/Vol] 0.96 mg/dL High 0.5 - 0.9 mg/dL [place] GFR >60 >60 mL/min [place] GFR Non- >60 >60 mL/min [place] Glucose [Mass/Vol] 71 mg/dL 70 - 99 mg/dL [place] Interpretation and review of laboratory results Abnormal [place] Potassium [Moles/Vol] 4.0 mmol/L 3.7 - 5.3 mmol/L [place] Protein [Mass/Vol] 6.4 g/dL 6.4 - 8.3 g/dL [place] Sodium [Moles/Vol] 140 mmol/L 135 - 144 mmol/L [place] Urea nitrogen [Mass/Vol] 18 mg/dL 6 - 20 mg/dL [place] HIV Screenon 11-14-2018 HIV Ag/Ab NONREACTIVE NONREACTIVE [place] Comment on above: No laboratory eviden ce of HIV infection. If acute HIV infection is suspected, consider testing for HIV-1 RNA. Hepatitis Panel, Acuteon HAV IgM IA Qn (S) NONREACTIVE NONREACTIVE [place] Hep B Core Ab, IgM NONREACTIVE NONREACTIVE [place] Hepatitis B Surface Ag NONREACTIVE NONREACTIVE [place] Hepatitis C Ab REACTIVE Abnormal NONREACTIVE [place] Comment on above: The hepatitis C [...] Interpretation and review of laboratory results Abnormal [place] Metabolic Panelon 11-14-2018 GFR/1.73 sq M predicted among non-blacks MDRD (S/P/Bld) [Vol rate/Area] [place] Comment on above: Average GFR for 30-3 9 years old: 107 mL/min/1.73sq m Chronic Kidney Disease: <60 mL/min/1.73sq m Kidney failure: <15 mL/min/1.73sq m eGFR calculated using average adult body mass. Additional eGFR calculator available at: http://www.[employer].com/multiple_crcl_2012.htm Stage 1: Some kidney damage normal GFR Stage 2: Mild kidney damage GFR 60-89 Stage 3: Moderate kidney damage GFR 30-59 Stage 4: Severe kidney damage GFR 15-29 Stage 5: Severe kidney damage GFR <15 ESRD - chronic treatment by dialysis or transplant T. pallidum Abon 11-14-2018 T. pallidum, IgG NONREACTIVE NONREACTIVE [place] Comment on above: T. pallidum antibodies [...] joint. Please correlate with area of pain. Axeda, Modumetal EXAMINATION: THREE X RAY VIEWS OF THE [...] spaces appear well maintained. No bony erosions. [facility]ITAL[facility] [place] Sagar, [facility] Incoming Radiant Results From PT PAL/Social & Loyal - 10/15/2018 10:00 AM EDT EXAMINATION: THREE [...] joint. Please correlate with area of pain. [facility]- [place] XR ANKLE LEFT (MIN 3 [...] Oh Jr., DO 10/15/18 Final result Normal [facility] XR FOOT LEFT (MIN 3 VIEWS)on [...] Oh Jr., DO 10/15/18 Final result Normal [facility] Basic Metabolic Panlon 10-23 Anion gap 3 molar conc 12 mmol/L Normal 9-18 [facility] Comment on above: Performed By: #### C BCDIF, BMP ####[place] [address] [address] [place] [phone] Calcium mass conc 9.1 mg/dL Normal 8.5-10.2 [facility] [place] [facility] Comment on above: Performed By: #### C BCDIF, BMP ####[place] [address] [address], [place] [phone] Chloride molar conc 108 mmol/L High 97-105 [facility] Comment on above: Performed By: #### C BCDIF, BMP ####[place] [address] [address], [place] [phone] CO2 molar conc 23 mmol/L Normal 22-30 [facility] Comment on above: Performed By: #### C BCDIF, BMP ####[place] [address] [address], [place] [phone] Creatinine mass conc 0.94 mg/dL Normal 0.58-0.96 [facility] Comment on above: Performed By: #### C BCDIF, BMP ####[facility], [place] [phone] eGFR- Amer. >60 Normal [facility] Comment on above: Performed By: #### C BCDIF, BMP ####[place] [address] [address], [place] [phone] GFR/1.73 sq M predicted among non-blacks MDRD vol rate/area (S/P/Bld) mL/min/{1.73_m2} Normal [facility] Comment on above: Result Comment: eGFR [...] GFR. Performed By: #### C BCDIF, BMP ####[facility] [place], [place] [phone] Glucose mass conc 81 mg/dL Normal 74-99 [facility] [place] [facility] Comment on above: Result Comment: The [place] Diabetes Association (ADA) provides guidance for cutoff [...] Standards of Medical Care in Diabetes 2016, [place] [employer] Association. Diabetes Care. 2016.39(Suppl 1). Performed By: #### C BCDIF, BMP ####[facility], [place] [phone] Potassium molar conc 3.8 mmol/L Normal 3.7-5.1 [facility] Comment on above: Performed By: #### C BCDIF, BMP ####[facility] [place], [place] [phone] Sodium molar conc 143 mmol/L Normal 136-144 [facility] [place] [facility] Comment on above: Performed By: #### C BCDIF, BMP ####[facility], [place] [phone] Urea nitrogen mass conc 12 mg/dL Normal 7-21 [facility] Comment on above: Performed By: #### C BCDIJanes, BMP ####[place] [id number]level[address], [place] [phone] CBC and Differentialon 10-23 Abs Baso <0.03 Normal <0.11 [facility] Comment on above: Performed By: #### C BCDIF, BMP ####[place] [address] [address] [phone] Abs Ector 0.48 k/uL Normal <0.87 [facility] Comment on above: Performed By: #### C BCLEOPOLDO, BMP ####[place] [address] [address] [place] [phone] Abs Neut 2.26 k/uL Normal 1.45-7.50 [facility] Comment on above: Performed By: #### C BCYESIF, BMP ####[place] [address] [address] [place] [phone] Absolute nRBC <0.01 Normal <0.01 [facility] Comment on above: Performed By: #### C BCYESIF, BMP ####[place] [address] [address] [phone] Basophils/100 WBC Auto (Bld) 0.4 % Normal [facility] Comment on above: Performed By: #### C BCDIF, BMP ####[place] [address] [address] [phone] DTYPE Auto Diff Normal [facility] Comment on above: Performed By: #### C BCDIF, BMP ####[place] [address] [address], [place] [phone] Eosinophils Auto #/vol (Bld) 0.36 10*3/uL Normal <0.46 [facility] Comment on above: Performed By: #### C BCDIF, BMP ####[place] [address] [address] [place] [phone] Eosinophils/100 WBC Auto (Bld) 6.8 % Normal [facility] Comment on above: Performed By: #### C BCDIF, BMP ####[place] [address] [address] [place] [phone] Erythrocyte distribution width Auto Ratio (RBC) 12.3 % Normal 11.5-15.0 [facility] Comment on above: Performed By: #### C BCDIF, BMP ####[place] [address] [address] [place] [phone] Hematocrit Auto Volume Fraction (Bld) 40.2 % Normal 36.0-46.0 [facility] Comment on above: Performed By: #### C BCDIF, BMP ####[place] [address] [address] [place] [phone] Hemoglobin mass conc (Bld) 13.8 g/dL Normal 11.5-15.5 [facility] Comment on above: Performed By: #### C BCDIF, BMP ####[place] [address] [address] [place] [phone] Lymphocytes Auto #/vol (Bld) 2.17 10*3/uL Normal 1.00-4.00 [facility] Comment on above: Performed By: #### C BCDIF, BMP ####[place] [address] [address] [phone] Lymphocytes/100 WBC Auto (Bld) 40.9 % Normal [facility] Comment on above: Performed By: #### C BCDIF, BMP ####[place] [phone] [place] [phone] MCH Auto Entitic mass (RBC) 32.5 pG Normal 26.0-34.0 [facility] Comment on above: Performed By: #### C BCDIF, BMP ####[facility], [place] [phone] MCHC Auto mass conc (RBC) 34.3 g/dL Normal 30.5-36.0 [facility] Comment on above: Performed By: #### C BCDIF, BMP ####[place] [address] [address]ClevelMatthew [place] [phone] MCV Auto Entitic volume (RBC) 94.8 fL Normal 80.0-100.0 [facility] Comment on above: Performed By: #### C BCDIF, BMP ####[place] [address] [address] [phone] Monocytes/100 WBC Auto (Bld) 9.1 % Normal [facility] Comment on above: Performed By: #### C BCDIF, BMP ####[place] [address] [address] [place] [phone] Neutrophils/100 WBC Auto (Bld) 42.8 % Normal [facility] Comment on above: Performed By: #### C BCDIF, BMP ####[place] [address] [address] [place] [phone] NRBCs 0.0 /100 WBC Normal 0 [facility] Comment on above: Performed By: #### C BCDIF, BMP ####[place] [address] [address] [place] [phone] Platelet mean volume Auto Entitic volume (Bld) 10.2 fL Normal 9.0-12.7 [facility] Comment on above: Performed By: #### C BCDIF, BMP ####[place] [address] [address]level[address] [place] [phone] Platelets Auto #/vol (Bld) 189 10*3/uL Normal 150-400 [facility] Comment on above: Performed By: #### C BCDIF, BMP ####[place] [address] [place], [place] [phone] RBC Auto #/vol (Bld) 4.24 10*6/uL Normal 3.90-5.20 [facility] Comment on above: Performed By: #### C BCDIF, BMP ####[facility] [place], [place] [phone] WBC Auto #/vol (Bld) 5.30 10*3/uL Normal 3.70-11.00 [facility] Comment on above: Performed By: #### C BCDIF, BMP ####[address] [phone] ED NOTEon 10-23-2017 ED NOTE HNO ID: [id number]: Jan (Rn) CHADD Westervice: Emergency MedicineAuthor Type: [...] any questions/concerns the patient may have. Normal [facility] ED PROV NOTEon 10-23-2017 Protein mass conc HNO ID: [id number]: DB Estrellaervice: Emergency MedicineAuthor Type: PhysicianType: ED Provider NotesFiled: 10/24/2017 6:35 PMNote Text:ED Provider NotePatient Name: Rachelnegritaprashanth Hewitt JackyN: [id number] DATE: 10/23/17HistoryPatient presents with:Abscess: R thigh, Hx [...] notes arepresent to corroborate this story. Including [facility], which wasone of the hospitals she states she visited. [place], but no recent visits were noted regarding [...] all over the skin. These lesions are xjxoo0yr-9.5cm. There is one on [place]-medial thigh on [...] Long Kiser MD, PGY 1Nichmindi (Res) Margi, GXXuxnwopj06/20/18 0148Attending NoteI evaluated the patient and personally [...] 10/24/2017Time: 6:33 Giovani Posada MD10/24/17 1835 Normal [facility] Metabolic Panelon 08-16-2017 Creatinine 142.27 mg/dL Invalid Interpretation Code [facility] Otheron 08-16-2017 S. pyogenes Ag IA Ql (Unsp spec) Negative Invalid Interpretation Code [facility] Urinalysis specialist review Interp Cristiano (Unsp spec) WNL Invalid Interpretation Code [facility] S. pyogenes Ag IA Ql (Unsp spec) Negative Invalid Interpretation Code [facility] Urinalysis specialist review Interp Cristiano (Unsp spec) WNL Invalid Interpretation Code [facility] 6-Monoacetylmorphine (6-NAS) Confirm mass conc (U) Negative Invalid Interpretation Code 5 [facility] Acetaminophen mass conc Negative Invalid Interpretation Code 5 [facility] Alpha hydroxyalprazolam mass conc 182.0 ng/mL Invalid Interpretation Code 5 [facility] Alprazolam mass conc 107.0 ng/mL Invalid Interpretation Code 5 [facility] Amitriptyline mass conc 865.0 ng/mL Invalid Interpretation Code 10 [facility] Amphetamine mass conc 26636 Invalid Interpretation Code 25 [facility] Butalbital Ql Negative Invalid Interpretation Code >250 [facility] Negative Invalid Interpretation Code 10 [facility] 182 Invalid Interpretation Code 5 [facility] 107 Invalid Interpretation Code 5 [facility] 865 Invalid Interpretation Code 10 [facility] 10162 Invalid Interpretation Code 25 [facility] 605 Invalid Interpretation Code 10 [facility] [address]497 Invalid Interpretation Code 500 [facility] 2186 Invalid Interpretation Code 200 [facility] 83 Invalid Interpretation Code 50 [facility] 5616 Invalid Interpretation Code 25 [facility] 202 Invalid Interpretation Code 10 [facility] 6615 Invalid Interpretation Code 10 [facility] 601 Invalid Interpretation Code 10 [facility] 354715 Invalid Interpretation Code 500 [facility] 0 Invalid Interpretation Code [facility] 5.5 Invalid Interpretation Code [facility] 1.016 Invalid Interpretation Code [facility] 137 Invalid Interpretation Code 5 [facility] 137.0 ng/mL Invalid Interpretation Code 5 [facility] Urinalysison 08-16-2017 HCG.beta subunit ( test) Ql (U) Negative Invalid Interpretation Code [facility] HCG.beta subunit ( test) Ql (U) Negative Invalid Interpretation Code [facility] AEROBIC CULTUREon 06-09-2017 AEROBIC CULTURE SPECIMEN NUMBER: [id number] [facility] Comment on above: Result Comment: AERO BIC CULTURE REPORT STATUS: FINAL SITE/TYPE: RIGHT PALM STAIN RESULT(S): SMALL AMOUNT CELLULAR DEBRIS NO ORGANISMS SEEN CURRENT ANTIBIOTIC(S):NOT STATED CULTURE RESULT(S): NORMAL SKIN ZENY PRESENT VIRAL CULTURE, NON-RESPIRATO Jordi 06-09-2017 VIRAL CULTURE, NON-RESPIRATORY SEE NOTE Normal NEGATIVE [facility] Comment on above: Result Comment: Cult ure negativePerformed by [facility],[address] [place] [address] qdr.[employer], Cezar Ledbetter MD, Lab. Director EFFECTIVE 04/18/2017 CLINICAL CHEMISTRY PLATFORM CHANGES IN MAIN LABORATORY ARE ASSOCIATED WITH REFERENCE RANGE CHANGES FOR A NUMBER OF ANALYTES. PLEASE REVIEW REFERENCE INTERVALS CAREFULLY P [employer], [employer]. [address] [place], [place] [address]Laboratory Director: Nnamdi Castro M.D.CLIA No. [id number] CAP Accreditation No. [id number] SURG. PATHOLOGY REPORTon SURGICAL PATHOLOGY REPORT [facility] Comment on above: Result Comment: DIAG NOSISRIGHT PALM, SKIN BIOPSY:STRATUM CORNEUM/KERATINACEOUS CRUSTNON-DIAGNOSTIC [id number]/31/2017 Electronically Signed Out by Renetta Partida M.D.NATURE [...] PLEASE REVIEW REFERENCE INTERVALS CAREFULLY P athology [employer] [address] [place] [address] [id number] Director: Nnamdi Castro M.D.CLIA No. [id number] CAP Accreditation No. [id number] AEROBIC CULTUREon 02-22-2017 AEROBIC CULTURE SPECIMEN NUMBER: [id number] [facility] Comment on above: Result Comment: AERO BIC CULTURE REPORT STATUS: FINAL SITE/TYPE: GROIN STAIN RESULT(S): MODERATE AMOUNT PROTEINACEOUS MATERIAL SMALL AMOUNT SQUAMOUS EPITHELIAL CELLS NO ORGANISMS SEEN CURRENT ANTIBIOTIC(S):NOT STATED CULTURE RESULT(S): NORMAL SKIN ZENY PRESENT NO NEISSERIA GONORRHOEAE ISOLATEDPathology [facility] [employer] [address] [place] [address] [id number] Director: Jacoby Olson M.D.CLIA No. [id number] CAP Accreditation No. [id number] Urinalysison 02-22-2017 HCG.beta subunit ( test) Ql (U) Negative Invalid Interpretation Code [facility] HCG.beta subunit ( test) Ql (U) Negative Invalid Interpretation Code [facility] Metabolic Panelon 01-06-2017 Hemoglobin A1c/Hemoglobin.total mass fraction (Bld) 5.20 % Invalid Interpretation Code < 7 [facility] Hemoglobin A1c/Hemoglobin.total mass fraction (Bld) 5.20 % Invalid Interpretation Code < 7 [facility] Otheron 01-06-2017 2 Invalid Interpretation Code [facility] 2 Invalid Interpretation Code [facility] Vital Signs Date Time Vital Sign Value Performing Clinician Facility 04-18-2024 12:19-0500 Body height 182.9 cm Jaswant Verhoff PA-C Work Phone: [facility] 04-18-2024 12:19-0500 Body mass index (BMI) [Ratio] 28.35 kg/m2 Jaswant Verhoff PA-C Work Phone: [facility] 04-18-2024 12:19-0500 Body weight 94.8 kg Jaswant Verhoff PA-C Work Phone: [facility] 04-18-2024 12:19-0500 Diastolic blood pressure 84 mm[Hg] Jaswant Verhoff PA-C Work Phone: [facility] 04-18-2024 12:19-0500 Heart rate 98 /min Jaswant Verhoff PA-C Work Phone: [facility] 04-18-2024 12:19-0500 Respiratory rate 18 /min Jaswant Verhoff PA-C Work Phone: [facility] 04-18-2024 12:19-0500 SaO2% (BldA) [Mass fraction] 100 % Jaswant Verhoff PA-C Work Phone: [facility] 04-18-2024 12:19-0500 Systolic blood pressure 115 mm[Hg] Jaswant Verhoff PA-C Work Phone: [facility] 01-10-2024 15:19-0500 Diastolic blood pressure 90 mm[Hg] Yumiko Maryenberg TANK TRUCK OPERATOR-ASSET MANAGER Work Phone: [facility] 01-10-2024 15:19-0500 Heart rate 100 /min Yumiko Nienberg TANK TRUCK OPERATOR-ASSET MANAGER Work Phone: [facility] 01-10-2024 15:19-0500 Respiratory rate 20 /min Yumiko Maryenberg TANK TRUCK OPERATOR-ASSET MANAGER Work Phone: [facility] 01-10-2024 15:19-0500 Systolic blood pressure 140 mm[Hg] Yumiko Elizalde TANK TRUCK OPERATOR-ASSET MANAGER Work Phone: [facility] 10-25-2023 13:00-0400 Body height 182.9 cm Yumiko Elizalde TANK TRUCK OPERATOR-ASSET MANAGER Work Phone: [facility] 10-25-2023 13:00-0400 Body mass index (BMI) [Ratio] 28.4 kg/m2 Yumiko Elizalde TANK TRUCK OPERATOR-ASSET MANAGER Work Phone: [facility] 10-25-2023 13:00-0400 Body weight 95 kg Yumiko Elizalde TANK TRUCK OPERATOR-ASSET MANAGER Work Phone: [facility] 10-25-2023 13:00-0400 Diastolic blood pressure 79 mm[Hg] Yumiko Hernandezenberg TANK TRUCK OPERATOR-ASSET MANAGER Work Phone: [facility] 10-25-2023 13:00-0400 Heart rate 90 /min Yumiko Elizalde TANK TRUCK OPERATOR-ASSET MANAGER Work Phone: [facility] 10-25-2023 13:00-0400 Respiratory rate 18 /min Yumiko Elizalde TANK TRUCK OPERATOR-ASSET MANAGER Work Phone: [facility] 10-25-2023 13:00-0400 SaO2% (BldA) [Mass fraction] 99 % Yumiko Elizalde TANK TRUCK OPERATOR-ASSET MANAGER Work Phone: [facility] 10-25-2023 13:00-0400 Systolic blood pressure 123 mm[Hg] Yumiko Hernandezenberg TANK TRUCK OPERATOR-ASSET MANAGER Work Phone: [facility] 10-06-2023 13:03-0400 Body height 189.[address] [facility] 10-06-2023 13:03-0400 Body mass index (BMI) [Ratio] 26.3 kg/m2 [facility] 10-06-2023 13:03-0400 Body weight 94.[address] [facility] 10-06-2023 13:03-0400 Diastolic blood pressure 64 mm[Hg] [facility] 10-06-2023 13:03-0400 Heart rate 111 /min [facility] 10-06-2023 13:03-0400 SaO2% (BldA) [Mass fraction] 98 % [facility] 10-06-2023 13:03-0400 Systolic blood pressure 114 mm[Hg] [facility] 09-30-2023 10:36-0400 Body height 185.4 cm Elayne Luciano MD Work Phone: [facility] 09-30-2023 10:36-0400 Body mass index (BMI) [Ratio] 24.41 kg/m2 Elayne Luciano MD Work Phone: [facility] 09-30-2023 10:36-0400 Body weight 83.92 kg Elayne Luciano MD Work Phone: [facility] 08-26-2023 10:11-0400 Body height 182.9 cm Elayne Luciano MD Work Phone: [facility] 08-26-2023 10:11-0400 Body mass index (BMI) [Ratio] 26.18 kg/m2 Elayne Luciano MD Work Phone: [facility] 08-26-2023 10:11-0400 Body weight 87.54 kg Elayne Luciano MD Work Phone: [facility] 06-15-2023 16:37-0400 Diastolic blood pressure 72 mm[Hg] GENOVEVA Haile Work Phone: [facility] 06-15-2023 16:37-0400 Heart rate 73 /min GENOVEVA Haile Work Phone: [facility] 06-15-2023 16:37-0400 Respiratory rate 16 /min GENOVEVA Haile Work Phone: [facility] 06-15-2023 16:37-0400 SaO2% (BldA) [Mass fraction] 100 % GENOVEVA Haile Work Phone: [facility] 06-15-2023 16:37-0400 Systolic blood pressure 109 mm[Hg] GENOVEVA Haile Work Phone: [facility] 06-15-2023 14:03-0400 Inhaled oxygen flow rate 2 L/min TANK TRUCK OPERATORToño Haile Work Phone: [facility] 06-15-2023 11:36-0400 Body height 180.34 cm TANK TRUCK OPERATORToño Haile Work Phone: [facility] 06-15-2023 11:36-0400 Body temperature 98 [degF] GENOVEVA Haile Work Phone: [facility] 06-15-2023 11:36-0400 Body weight 103.87 kg GENOVEVA Haile Work Phone: [facility] 05-31-2023 13:57-0400 Body height 182.9 cm Renetta Elizalde PA Work [facility]: [facility] 05-31-2023 13:57-0400 Body mass index (BMI) [Ratio] 26.18 kg/m2 Renetta Elizalde PA Work Phone: [facility] 05-31-2023 13:57-0400 Body weight 87.54 kg Renetta Elizalde PA Work Phone: [facility] 05-31-2023 13:57-0400 Diastolic blood pressure 87 mm[Hg] Renetta Elizalde PA Work Phone: [employer] 05-31-2023 13:57-0400 Heart rate 104 /min Renetta Elizalde PA Work Phone: [facility] 05-31-2023 13:57-0400 Respiratory rate 18 /min Renetta Elizalde PA Work Phone: [facility] 05-31-2023 13:57-0400 SaO2% (BldA) [Mass fraction] 99 % Renetta ROJAS Work Phone: [facility] 05-31-2023 13:57-0400 Systolic blood pressure 131 mm[Hg] Renetta ROJAS Work Phone: [facility] [employer] [facility] 05-04-2023 11:44-0500 Body height 182.9 cm Jaswant Verhoff PA-C Work Phone: [facility] [employer] 05-04-2023 11:44-0500 Body mass index (BMI) [Ratio] 28.62 kg/m2 Jaswant Verhoff PA-C Work Phone: [facility] 05-04-2023 11:44-0500 Body weight 95.71 kg Jaswant Verhoff PA-C Work Phone: [facility] 05-04-2023 11:44-0500 Diastolic blood pressure 103 mm[Hg] Jaswant Verhoff PA-C Work Phone: [facility] 05-04-2023 11:44-0500 Heart rate 95 /min Jaswant Verhoff PA-C Work Phone: [facility] 05-04-2023 11:44-0500 Respiratory rate 16 /min Jaswant Verhoff PA-C Work Phone: [facility] 05-04-2023 11:44-0500 SaO2% (BldA) [Mass fraction] 100 % Jaswant Verhoff PA-C Work Phone: [facility] 05-04-2023 11:44-0500 Systolic blood pressure 145 mm[Hg] Jaswant Verhoff PA-C Work Phone: [facility] 03-21-2023 13:30-0500 Body height 188.59 cm Berenice Haile Other [facility] 03-21-2023 13:30-0500 Body mass index (BMI) [Ratio] 27.16 kg/m2 Berenice Haile Other [facility] [employer] Other 03-21-2023 13:30-0500 Body weight 96.62 kg Berenice Haile Other [facility] [employer] Other 03-21-2023 13:30-0500 Body weight 96.[address] [facility] 03-21-2023 13:30-0500 Diastolic blood pressure 80 mm[Hg] Berenice Haile Other [facility] 03-21-2023 13:30-0500 SaO2% (BldA) [Mass fraction] 100 % Berenice Haile Other [facility] [employer] Other 03-21-2023 13:30-0500 Systolic blood pressure 130 mm[Hg] Berenice Haile Other [facility] 02-23-2023 13:49-0500 Diastolic blood pressure 85 mm[Hg] TANK TRUCK OPERATORToño Howellacher Work Phone: [facility] 02-23-2023 13:49-0500 Heart rate 91 /min TANK TRUCK OPERATORToño Howellacher Work Phone: [facility] 02-23-2023 13:49-0500 Respiratory rate 16 /min TANK TRUCK OPERATORToño Howellacher Work Phone: [facility] 02-23-2023 13:49-0500 SaO2% (BldA) [Mass fraction] 100 % TANK TRUCK OPERATORToño Howellacher Work Phone: [facility] 02-23-2023 13:49-0500 Systolic blood pressure 128 mm[Hg] GENOVEVA Gracerbacher Work Phone: [facility] 02-23-2023 13:41-0500 Body weight 85.72 kg TANK TRUCK OPERATORToño Howellacher Work Phone: [facility] 12-13-2022 14:40-0400 Body height 188.59 cm Ladarius Scgraciela Other [employer] Other 12-13-2022 14:40-0400 Body mass index (BMI) [Ratio] 27.67 kg/m2 Ladarius Scovanner Other [employer] Other 12-13-2022 14:40-0400 Body weight 98.43 kg Ladarius Scovanner Other [employer] Other 12-13-2022 14:40-0400 Diastolic blood pressure 60 mm[Hg] Ladarius Scovanner Other [employer] Other 12-13-2022 14:40-0400 Systolic blood pressure 109 mm[Hg] Ladarius Scovanner Other [employer] Other 09-22-2022 14:30-0400 Body height 188.59 cm Berenice Haile Other [employer] Other 09-22-2022 14:30-0400 Body mass index (BMI) [Ratio] 27.67 kg/m2 Berenice Haile Other [employer] Other 09-22-2022 14:30-0400 Body weight 98.43 kg Berenice Haile Other [employer] Other 09-22-2022 14:30-0400 Diastolic blood pressure 70 mm[Hg] Berenice Haile Other [employer] Other 09-22-2022 14:30-0400 Systolic blood pressure 118 mm[Hg] Berenice aHile Other [employer] Other 01-19-2022 16:10-0500 Body height 188.59 cm Liz Billingsley Other [employer] Other 01-19-2022 16:10-0500 Body mass index (BMI) [Ratio] 23.72 kg/m2 Liz Billingsley Other [employer] Other 01-19-2022 16:10-0500 Body temperature 98.1 [degF] Liz Billingsley Other [employer] Other 01-19-2022 16:10-0500 Body weight 84.37 kg Liz Billingsley Other [employer] Other 01-19-2022 16:10-0500 Diastolic blood pressure 83 mm[Hg] Liz Billingsley Other [employer] Other 01-19-2022 16:10-0500 Respiratory rate 18 /min Liz Billingsley Other [employer] Other 01-19-2022 16:10-0500 SaO2% (BldA) [Mass fraction] 96 % Liz Billingsley Other [employer] Other 01-19-2022 16:10-0500 Systolic blood pressure 128 mm[Hg] Liz Billingsley Other [employer] Other 03-03-2021 16:00-0500 Body height 188.59 cm Agus Madera Other [employer] Other 03-03-2021 16:00-0500 Body mass index (BMI) [Ratio] 25.12 kg/m2 Agus Madera Other [employer] Other 03-03-2021 16:00-0500 Body weight 89.36 kg Agus Madera Other [employer] Other 03-03-2021 16:00-0500 Diastolic blood pressure 72 mm[Hg] Agus Madera Other [employer] Other 03-03-2021 16:00-0500 Systolic blood pressure 100 mm[Hg] Agus Lafleurack Other [employer] Other 12-27-2020 12:33-0400 Diastolic blood pressure 76 mm[Hg] Sai Hernandez MD Work Phone: [employer] Work Phone: 12-27-2020 12:33-0400 Heart rate 73 /min Sai Hernandez MD Work Phone: [employer] Work Phone: 12-27-2020 12:33-0400 Respiratory rate 14 /min Sai Hernandez MD Work Phone: [employer] Work Phone: 12-27-2020 12:33-0400 Systolic blood pressure 121 mm[Hg] Sai Hernandez MD Work Phone: [employer] Work Phone: 12-27-2020 08:22-0400 SaO2% (BldA) [Mass fraction] 98 % Sai Hernandez MD Work Phone: [employer] Work Phone: 12-27-2020 08:20-0400 Body temperature 97.59 [degF] Sai Hernandez MD Work Phone: [employer] Work Phone: 07-10-2020 15:40-0400 Body height 181.61 cm Rosana Alaniz CNP Work Phone: [facility] Work Phone: 07-10-2020 15:40-0400 Body mass index (BMI) [Ratio] 31.4 kg/m2 Rosana Alaniz CNP Work Phone: [facility] Work Phone: 07-10-2020 15:40-0400 Body surface area Derived from formula 2.24 m2 Rosana Alaniz CNP Work Phone: [facility] Work Phone: 07-10-2020 15:40-0400 Body temperature 95.8 [degF] Rosana Alaniz CNP Work Phone: [facility] Work Phone: 07-10-2020 15:40-0400 Body weight 103.51 kg Rosana Alaniz CNP Work Phone: [facility] Work Phone: 07-10-2020 15:40-0400 Diastolic blood pressure 68 mm[Hg] Rosana Alaniz CNP Work Phone: [facility] Work Phone: 07-10-2020 15:40-0400 Heart rate 88 /min Rosana Alaniz CNP Work Phone: [facility] Work Phone: 07-10-2020 15:40-0400 Respiratory rate 18 /min Rosana Alaniz CNP Work Phone: [facility] Work Phone: 07-10-2020 15:40-0400 SaO2% (BldA) [Mass fraction] 99 % Rosana Alaniz CNP Work Phone: [facility] Work Phone: 07-10-2020 15:40-0400 Systolic blood pressure 98 mm[Hg] Rosana Alaniz [facility] Work Phone: [facility] Work Phone: 03-13-2020 11:26-0500 BMI (Body Mass Index) 33.7 kg/m2 [facility] Work Phone: 03-13-2020 11:26-0500 Body weight 111.13 kg [facility] Work Phone: 03-13-2020 11:26-0500 BSA (Body Surface Area) 2.31 m2 [facility] Work Phone: 03-13-2020 11:26-0500 Height 181.61 cm [facility] Work Phone: 05-24-2019 13:37-0400 BP Diastolic 74 mm[Hg] [facility] Work Phone: 05-24-2019 13:37-0400 BP Systolic 110 mm[Hg] [facility] Work Phone: 05-24-2019 13:27-0400 BMI (Body Mass Index) 33.7 kg/m2 [facility] Work Phone: 05-24-2019 13:27-0400 Body Temperature 96.5 [degF] [facility] Work Phone: 05-24-2019 13:27-0400 Body weight 111.13 kg [facility] Work Phone: 05-24-2019 13:27-0400 BSA (Body Surface Area) 2.31 m2 [facility] Work Phone: 05-24-2019 13:27-0400 Height 181.61 cm [facility] Work Phone: 03-08-2019 13:42-0500 BMI (Body Mass Index) 32.4 kg/m2 [facility] Work Phone: 03-08-2019 13:42-0500 Body weight 106.78 kg [facility] Work Phone: 03-08-2019 13:42-0500 BP Diastolic 78 mm[Hg] [facility] Work Phone: 03-08-2019 13:42-0500 BP Systolic 90 mm[Hg] [facility] Work Phone: 03-08-2019 13:42-0500 BSA (Body Surface Area) 2.27 m2 [facility] Work Phone: 03-08-2019 13:42-0500 Height 181.61 cm [facility] Work Phone: 03-08-2019 13:42-0500 Pulse (Heart Rate) 89 /min [facility] Work Phone: 03-08-2019 13:42-0500 Pulse Oximetry 98 % [facility] Work Phone: 02-20-2019 13:50-0500 BMI (Body Mass Index) 34.5 kg/m2 [facility] Work Phone: 02-20-2019 13:50-0500 Body Temperature 99.1 [degF] [facility] Work Phone: 02-20-2019 13:50-0500 Body weight 113.94 kg [facility] Work Phone: 02-20-2019 13:50-0500 BP Diastolic 70 mm[Hg] [facility] Work Phone: 02-20-2019 13:50-0500 BP Systolic 110 mm[Hg] [facility] Work Phone: 02-20-2019 13:50-0500 BSA (Body Surface Area) 2.34 m2 [facility] Work Phone: 02-20-2019 13:50-0500 Height 181.61 cm [facility] Work Phone: 02-20-2019 13:50-0500 Pulse (Heart Rate) 99 /min [facility] Work Phone: 02-20-2019 13:50-0500 Pulse Oximetry 100 % [facility] Work Phone: 02-20-2019 13:50-0500 Respiratory Rate 18 /min [facility] Work Phone: 01-29-2019 15:45-0500 BP Diastolic 59 mm[Hg] [place], [place] 01-29-2019 15:45-0500 BP Systolic 94 mm[Hg] [place] 01-29-2019 15:45-0500 Pulse (Heart Rate) 69 /min [place], [place] 01-29-2019 15:45-0500 Pulse Oximetry 98 % [place] 01-29-2019 15:45-0500 Respiratory Rate 13 /min [place], [place] 01-29-2019 12:25-0500 BMI (Body Mass Index) 29.03 kg/m2 [place] 01-29-2019 12:25-0500 Body Temperature 97.39 [degF] [place], [place] 01-29-2019 12:25-0500 Body weight 99.79 kg [place] 01-29-2019 12:25-0500 Height 185.4 cm [place], [place] 2019 14:08-0500 Body Temperature 98.1 [degF] Sourav Baird [facility], [place] 2019 14:08-0500 BP Diastolic 86 mm[Hg] [facility] [place] 2019 14:08-0500 BP Systolic 115 mm[Hg] [facility] [place] 2019 14:08-0500 Pulse (Heart Rate) 95 /min [facility] [place] 2019 14:08-0500 Pulse Oximetry 99 % [facility] [place] 2019 14:08-0500 Respiratory Rate 16 /min [facility] [place] 01-04-2019 08:20-0400 BMI (Body Mass Index) 31.8 kg/m2 [facility] Work Phone: 01-04-2019 08:20-0400 Body Temperature 96.1 [degF] [facility] Work Phone: 01-04-2019 08:20-0400 Body weight 104.78 kg [facility] Work Phone: 01-04-2019 08:20-0400 BP Diastolic 80 mm[Hg] [facility] Work Phone: 01-04-2019 08:20-0400 BP Systolic 106 mm[Hg] [facility] Work Phone: 01-04-2019 08:20-0400 BSA (Body Surface Area) 2.25 m2 [facility] Work Phone: 01-04-2019 08:20-0400 Height 181.61 cm [facility] Work Phone: 01-04-2019 08:20-0400 Pulse (Heart Rate) 69 /min [facility] Work Phone: 01-04-2019 08:20-0400 Pulse Oximetry 98 % [facility] Work Phone: 01-04-2019 08:20-0400 Respiratory Rate 18 /min [facility] Work Phone: 01-03-2019 18:41-0400 BP Diastolic 74 mm[Hg] Elayne Nazario [facility], [place] 01-03-2019 18:41-0400 BP Systolic 90 mm[Hg] Elayne Nazario [facility], [place] 01-03-2019 18:40-0400 Pulse Oximetry 95 % Elayne Nazario [facility], [place] 01-03-2019 13:42-0400 BMI (Body Mass Index) 31.33 kg/m2 Elayne Nazario [facility], [place] 01-03-2019 13:42-0400 Body Temperature 98.01 [degF] Elayne Nazario [facility], [place] 01-03-2019 13:42-0400 Body weight 104.78 kg Elayne Nazario [facility], [place] 01-03-2019 13:42-0400 Pulse (Heart Rate) 71 /min [facility] [place] 01-03-2019 13:42-0400 Respiratory Rate 16 /min Elayne Nazario [facility], [place] 11-20-2018 11:37-0400 BMI (Body Mass Index) 34.8 kg/m2 [facility] Work Phone: 11-20-2018 11:37-0400 Body Temperature 95.4 [degF] [facility] Work Phone: 11-20-2018 11:37-0400 Body weight 114.94 kg [facility] Work Phone: 11-20-2018 11:37-0400 BP Diastolic 80 mm[Hg] [facility] Work Phone: 11-20-2018 11:37-0400 BP Systolic 104 mm[Hg] [facility] Work Phone: 11-20-2018 11:37-0400 BSA (Body Surface Area) 2.34 m2 [facility] Work Phone: 11-20-2018 11:37-0400 Height 181.61 cm [facility] Work Phone: 11-20-2018 11:37-0400 Pulse (Heart Rate) 95 /min [facility] Work Phone: 11-20-2018 11:37-0400 Pulse Oximetry 98 % [facility] Work Phone: 11-20-2018 11:37-0400 Respiratory Rate 18 /min [facility] Work Phone: 11-14-2018 16:21-0400 BMI (Body Mass Index) 34.18 kg/m2 [facility], [place] 11-14-2018 16:21-0400 Body Temperature 99.19 [degF] [facility], [place] 11-14-2018 16:21-0400 Body weight 114.31 kg [facility] , [place] 11-14-2018 16:21-0400 BP Diastolic 63 mm[Hg] [facility] , [place] 11-14-2018 16:21-0400 BP Systolic 108 mm[Hg] [facility] , [place] 11-14-2018 16:21-0400 Pulse (Heart Rate) 87 /min [facility], [place] 11-14-2018 16:21-0400 Pulse Oximetry 99 % [facility] , [place] 11-14-2018 16:21-0400 Respiratory Rate 19 /min [facility], [place] 10-15-2018 09:11-0400 BMI (Body Mass Index) 30.11 kg/m2 [facility], [place] 10-15-2018 09:11-0400 Body Temperature 97.5 [degF] [facility], [place] 10-15-2018 09:11-0400 Body weight 100.7 kg Jennifer Whaley [facility] , [place] 10-15-2018 09:11-0400 BP Diastolic 80 mm[Hg] Jennifer Whaley [facility] , [place] 10-15-2018 09:11-0400 BP Systolic 122 mm[Hg] [facility] [place] 10-15-2018 09:11-0400 Height 182.9 cm Jennifer [facility] , [place] 10-15-2018 09:11-0400 Pulse (Heart Rate) 91 /min [facility] [place] 10-15-2018 09:11-0400 Pulse Oximetry 100 % Jennifer [facility] , [place] 10-15-2018 09:11-0400 Respiratory Rate 16 /[facility] [place] 06-15-2018 15:01-0400 Pulse (Heart Rate) 103 /min [facility] Work Phone: 06-15-2018 15:01-0400 Pulse Oximetry 98 % [facility] Work Phone: 06-15-2018 14:58-0400 BMI (Body Mass Index) 33.7 kg/m2 [facility] Work Phone: 06-15-2018 14:58-0400 Body Temperature 97.1 [degF] [facility] Work Phone: 06-15-2018 14:58-0400 Body weight 111.31 kg [facility] Work Phone: 06-15-2018 14:58-0400 BP Diastolic 86 mm[Hg] [facility] Work Phone: 06-15-2018 14:58-0400 BP Systolic 126 mm[Hg] [facility] Work Phone: 06-15-2018 14:58-0400 BSA (Body Surface Area) 2.31 m2 [facility] Work Phone: 06-15-2018 14:58-0400 Height 181.61 cm Rosana Katty [facility] Work Phone: 06-15-2018 14:58-0400 Pulse (Heart Rate) 18 /min Rosana Katty [facility] Work Phone: 06-15-2018 14:58-0400 Respiratory Rate 18 /min [facility] Work Phone: 02-16-2018 13:28-0500 BMI (Body Mass Index) 33.99 kg/m2 [facility] 02-16-2018 13:28-0500 Body Temperature 98.3 [degF] [facility] 02-16-2018 13:28-0500 BP Diastolic 65 mm[Hg] [facility] 02-16-2018 13:28-0500 BP Systolic 92 mm[Hg] [facility] 02-16-2018 13:28-0500 BSA (Body Surface Area) 2.38 m2 [facility] 02-16-2018 13:28-0500 Height 181.61 cm [facility] 02-16-2018 13:28-0500 Pulse (Heart Rate) 110 /min Rosana Katty [facility] 02-16-2018 13:28-0500 Pulse Oximetry 99 % [facility] 02-16-2018 13:28-0500 Respiratory Rate 18 /min [facility] 02-16-2018 13:28-0500 Weight 112.12 kg [facility] 02-16-2018 11:28-0500 BMI (Body Mass Index) 34 kg/m2 [facility] Work Phone: 02-16-2018 11:28-0500 Body Temperature 98.3 [degF] [facility] Work Phone: 02-16-2018 11:28-0500 Body weight 112.04 kg [facility] Work Phone: 02-16-2018 11:28-0500 Body weight 112.12 kg [facility] Work Phone: 02-16-2018 11:28-0500 BP Diastolic 65 mm[Hg] [facility] [facility] Work Phone: 02-16-2018 11:28-0500 BP Systolic 92 mm[Hg] [facility] Work Phone: 02-16-2018 11:28-0500 BSA (Body Surface Area) 2.32 m2 [facility] Work Phone: 02-16-2018 11:28-0500 Height 181.61 cm [facility] Work Phone: 02-16-2018 11:28-0500 Pulse (Heart Rate) 110 /min [facility] Work Phone: 02-16-2018 11:28-0500 Respiratory Rate 18 /min [facility] Work Phone: 11-24-2017 14:14-0400 BMI (Body Mass Index) 32.32 kg/m2 [facility] 11-24-2017 14:14-0400 Body Temperature 97.4 [degF] [facility] 11-24-2017 14:14-0400 BP Diastolic 80 mm[Hg] [facility] 11-24-2017 14:14-0400 BP Systolic 126 mm[Hg] [facility] 11-24-2017 14:14-0400 BSA (Body Surface Area) 2.32 m2 [facility] 11-24-2017 14:14-0400 Height 181.61 cm [facility] 11-24-2017 14:14-0400 Pulse (Heart Rate) 104 /min [facility] 11-24-2017 14:14-0400 Pulse Oximetry 97 % [facility] 11-24-2017 14:14-0400 Respiratory Rate 20 /min [facility] 11-24-2017 14:14-0400 Weight 106.6 kg [facility] 11-24-2017 13:14-0400 BMI (Body Mass Index) 32.32 kg/m2 [facility] 11-24-2017 13:14-0400 Body Temperature 97.4 [degF] [facility] 11-24-2017 13:14-0400 BP Diastolic 80 mm[Hg] [facility] 11-24-2017 13:14-0400 BP Systolic 126 mm[Hg] [facility] 11-24-2017 13:14-0400 BSA (Body Surface Area) 2.32 m2 [facility] 11-24-2017 13:14-0400 Height 181.61 cm [facility] 11-24-2017 13:14-0400 Pulse (Heart Rate) 104 /min [facility] 11-24-2017 13:14-0400 Pulse Oximetry 97 % [facility] 11-24-2017 13:14-0400 Respiratory Rate 20 /min [facility] 11-24-2017 13:14-0400 Weight 106.6 kg [facility] 11-24-2017 11:14-0400 BMI (Body Mass Index) 32.3 kg/m2 [facility] Work Phone: 11-24-2017 11:14-0400 Body Temperature 97.4 [degF] [facility] Work Phone: 11-24-2017 11:14-0400 Body weight 106.6 kg [facility] Work Phone: 11-24-2017 11:14-0400 BP Diastolic 80 mm[Hg] [facility] Work Phone: 11-24-2017 11:14-0400 BP Systolic 126 mm[Hg] [facility] Work Phone: 11-24-2017 11:14-0400 BSA (Body Surface Area) 2.27 m2 [facility] Work Phone: 11-24-2017 11:14-0400 Height 181.61 cm [facility] Work Phone: 11-24-2017 11:14-0400 Pulse (Heart Rate) 104 /min [facility] Work Phone: 11-24-2017 11:14-0400 Respiratory Rate 20 /min [facility] Work Phone: 08-16-2017 14:15-0400 BMI (Body Mass Index) 30.7 kg/m2 [facility] 08-16-2017 14:15-0400 Body Temperature 97.2 [degF] [facility] 08-16-2017 14:15-0400 BP Diastolic 72 mm[Hg] [facility] 08-16-2017 14:15-0400 BP Systolic 118 mm[Hg] [facility] 08-16-2017 14:15-0400 BSA (Body Surface Area) 2.26 m2 [facility] 08-16-2017 14:15-0400 Height 181.61 cm [facility] 08-16-2017 14:15-0400 Pulse (Heart Rate) 88 /min [facility] 08-16-2017 14:15-0400 Pulse Oximetry 100 % [facility] 08-16-2017 14:15-0400 Respiratory Rate 18 /min [facility] 08-16-2017 14:15-0400 Weight 101.27 kg [facility] 08-16-2017 13:15-0400 BMI (Body Mass Index) 30.7 kg/m2 [facility] 08-16-2017 13:15-0400 Body Temperature 97.2 [degF] [facility] 08-16-2017 13:15-0400 BP Diastolic 72 mm[Hg] [facility] 08-16-2017 13:15-0400 BP Systolic 118 mm[Hg] [facility] 08-16-2017 13:15-0400 BSA (Body Surface Area) 2.26 m2 [facility] 08-16-2017 13:15-0400 Height 181.61 cm [facility] 08-16-2017 13:15-0400 Pulse (Heart Rate) 88 /min [facility] 08-16-2017 13:15-0400 Pulse Oximetry 100 % [facility] 08-16-2017 13:15-0400 Respiratory Rate 18 /min [facility] 08-16-2017 13:15-0400 Weight 101.27 kg [facility] 05-26-2017 14:14-0400 BMI (Body Mass Index) 29.57 kg/m2 [facility] 05-26-2017 14:14-0400 Body Temperature 97.5 [degF] [facility] 05-26-2017 14:14-0400 BP Diastolic 72 mm[Hg] [facility] 05-26-2017 14:14-0400 BP Systolic 118 mm[Hg] [facility] 05-26-2017 14:14-0400 BSA (Body Surface Area) 2.22 m2 [facility] 05-26-2017 14:14-0400 Height 181.61 cm [facility] 05-26-2017 14:14-0400 Pulse (Heart Rate) 100 /min [facility] 05-26-2017 14:14-0400 Pulse Oximetry 98 % [facility] 05-26-2017 14:14-0400 Respiratory Rate 20 /min [facility] 05-26-2017 14:14-0400 Weight 97.52 kg [facility] 05-26-2017 13:14-0400 BMI (Body Mass Index) 29.57 kg/m2 [facility] 05-26-2017 13:14-0400 Body Temperature 97.5 [degF] [facility] 05-26-2017 13:14-0400 BP Diastolic 72 mm[Hg] [facility] 05-26-2017 13:14-0400 BP Systolic 118 mm[Hg] [facility] 05-26-2017 13:14-0400 BSA (Body Surface Area) 2.22 m2 [facility] 05-26-2017 13:14-0400 Height 181.61 cm [facility] 05-26-2017 13:14-0400 Pulse (Heart Rate) 100 /min [facility] 05-26-2017 13:14-0400 Pulse Oximetry 98 % [facility] 05-26-2017 13:14-0400 Respiratory Rate 20 /min [facility] 05-26-2017 13:14-0400 Weight 97.52 kg [facility] 03-29-2017 15:24-0500 BMI (Body Mass Index) 27.69 kg/m2 [facility] 03-29-2017 15:24-0500 Body Temperature 97.5 [degF] [facility] 03-29-2017 15:24-0500 BP Diastolic 80 mm[Hg] [facility] 03-29-2017 15:24-0500 BP Systolic 109 mm[Hg] [facility] 03-29-2017 15:24-0500 BSA (Body Surface Area) 2.15 m2 [facility] 03-29-2017 15:24-0500 Height 181.61 cm [facility] 03-29-2017 15:24-0500 Pulse (Heart Rate) 87 /min [facility] 03-29-2017 15:24-0500 Pulse Oximetry 98 % [facility] 03-29-2017 15:24-0500 Respiratory Rate 18 /min [facility] 03-29-2017 15:24-0500 Weight 91.32 kg [facility] 03-29-2017 14:24-0500 BMI (Body Mass Index) 27.69 kg/m2 [facility] 03-29-2017 14:24-0500 Body Temperature 97.5 [degF] [facility] 03-29-2017 14:24-0500 BP Diastolic 80 mm[Hg] [facility] 03-29-2017 14:24-0500 BP Systolic 109 mm[Hg] [facility] 03-29-2017 14:24-0500 BSA (Body Surface Area) 2.15 m2 [facility] 03-29-2017 14:24-0500 Height 181.61 cm [facility] 03-29-2017 14:24-0500 [facility] 87 /[facility] 03-29-2017 14:24-0500 Pulse Oximetry 98 % [facility] 03-29-2017 14:24-0500 Respiratory Rate 18 /min [facility] 03-29-2017 14:24-0500 Weight 91.32 kg [facility] 02-22-2017 17:03-0500 BMI (Body Mass Index) 26.41 kg/m2 [facility] 02-22-2017 17:03-0500 Body Temperature 98 [degF] [facility] 02-22-2017 17:03-0500 BP Diastolic 87 mm[Hg] [facility] 02-22-2017 17:03-0500 BP Systolic 130 mm[Hg] [facility] 02-22-2017 17:03-0500 BSA (Body Surface Area) 2.1 m2 [facility] 02-22-2017 17:03-0500 Height 181.61 cm [facility] 02-22-2017 17:03-0500 Pulse (Heart Rate) 88 /min [facility] 02-22-2017 17:03-0500 Pulse Oximetry 100 % [facility] 02-22-2017 17:03-0500 Respiratory Rate 20 /min [facility] 02-22-2017 17:03-0500 Weight 87.09 kg [facility] 02-22-2017 16:03-0500 BMI (Body Mass Index) 26.41 kg/m2 [facility] 02-22-2017 16:03-0500 Body Temperature 98 [degF] [facility] 02-22-2017 16:03-0500 BP Diastolic 87 mm[Hg] [facility] 02-22-2017 16:03-0500 BP Systolic 130 mm[Hg] [facility] 02-22-2017 16:03-0500 BSA (Body Surface Area) 2.1 m2 [facility] 02-22-2017 16:03-0500 Height 181.61 cm [facility] 02-22-2017 16:03-0500 Pulse (Heart Rate) 88 /min [facility] 02-22-2017 16:03-0500 Pulse Oximetry 100 % [facility] 02-22-2017 16:03-0500 Respiratory Rate 20 /min [facility] 02-22-2017 16:03-0500 Weight 87.09 kg [facility] 02-01-2017 16:59-0500 BMI (Body Mass Index) 27.23 kg/m2 [facility] 02-01-2017 16:59-0500 Body Temperature 98.1 [degF] [facility] 02-01-2017 16:59-0500 BP Diastolic 81 mm[Hg] [facility] 02-01-2017 16:59-0500 BP Systolic 132 mm[Hg] [facility] 02-01-2017 16:59-0500 BSA (Body Surface Area) 2.13 m2 [facility] 02-01-2017 16:59-0500 Height 181.61 cm [facility] 02-01-2017 16:59-0500 Pulse (Heart Rate) 83 /min [facility] 02-01-2017 16:59-0500 Pulse Oximetry 94 % [facility] 02-01-2017 16:59-0500 Respiratory Rate 18 /min [facility] 02-01-2017 16:59-0500 Weight 89.81 kg [facility] 02-01-2017 15:59-0500 BMI (Body Mass Index) 27.23 kg/m2 [facility] 02-01-2017 15:59-0500 Body Temperature 98.1 [degF] [facility] 02-01-2017 15:59-0500 BP Diastolic 81 mm[Hg] [facility] 02-01-2017 15:59-0500 BP Systolic 132 mm[Hg] [facility] 02-01-2017 15:59-0500 BSA (Body Surface Area) 2.13 m2 Rosana Katty [facility] 02-01-2017 15:59-0500 Height 181.61 cm [facility] 02-01-2017 15:59-0500 Pulse (Heart Rate) 83 /min [facility] 02-01-2017 15:59-0500 Pulse Oximetry 94 % [facility] 02-01-2017 15:59-0500 Respiratory Rate 18 /min [facility] 02-01-2017 15:59-0500 Weight 89.81 kg [facility] 01-06-2017 17:29-0400 BMI (Body Mass Index) 26.41 kg/m2 [facility] 01-06-2017 17:29-0400 Body Temperature 97.9 [degF] [facility] 01-06-2017 17:29-0400 BP Diastolic 81 mm[Hg] [facility] 01-06-2017 17:29-0400 BP Systolic 130 mm[Hg] [facility] 01-06-2017 17:29-0400 BSA (Body Surface Area) 2.1 m2 [facility] 01-06-2017 17:29-0400 Height 181.61 cm [facility] 01-06-2017 17:29-0400 Pulse (Heart Rate) 90 /min [facility] 01-06-2017 17:29-0400 Pulse Oximetry 98 % [facility] 01-06-2017 17:29-0400 Respiratory Rate 18 /min [facility] 01-06-2017 17:29-0400 Weight 87.09 kg [facility] 01-06-2017 16:29-0400 BMI (Body Mass Index) 26.41 kg/m2 [facility] 01-06-2017 16:29-0400 Body Temperature 97.9 [degF] [facility] 01-06-2017 16:29-0400 BP Diastolic 81 mm[Hg] [facility] 01-06-2017 16:29-0400 BP Systolic 130 mm[Hg] [facility] 01-06-2017 16:29-0400 BSA (Body Surface Area) 2.1 m2 [facility] 01-06-2017 16:29-0400 Height 181.61 cm [facility] 01-06-2017 16:29-0400 Pulse (Heart Rate) 90 /min [facility] 01-06-2017 16:29-0400 Pulse Oximetry 98 % [facility] 01-06-2017 16:29-0400 Respiratory Rate 18 /min [facility] 01-06-2017 16:29-0400 Weight 87.09 kg [facility] 12-09-2016 17:31-0400 BMI (Body Mass Index) 26.97 kg/m2 [facility] 12-09-2016 17:31-0400 Body Temperature 99 [degF] [facility] 12-09-2016 17:31-0400 BP Diastolic 62 mm[Hg] [facility] 12-09-2016 17:31-0400 BP Systolic 98 mm[Hg] [facility] 12-09-2016 17:31-0400 BSA (Body Surface Area) 2.12 m2 [facility] 12-09-2016 17:31-0400 Height 181.61 cm [facility] 12-09-2016 17:31-0400 Pulse (Heart Rate) 110 /min [facility] 12-09-2016 17:31-0400 Pulse Oximetry 98 % [facility] 12-09-2016 17:31-0400 Respiratory Rate 18 /min [facility] 12-09-2016 17:31-0400 Weight 88.96 kg [facility] 12-09-2016 16:31-0400 BMI (Body Mass Index) 26.97 kg/m2 [facility] 12-09-2016 16:31-0400 Body Temperature 99 [degF] [facility] 12-09-2016 16:31-0400 BP Diastolic 62 mm[Hg] [facility] 12-09-2016 16:31-0400 BP Systolic 98 mm[Hg] [facility] 10-05-2017 16:31-0400 BSA (Body Surface Area) 2.12 m2 [facility] 12-09-2016 16:31-0400 Height 181.61 cm [facility] 12-09-2016 16:31-0400 Pulse (Heart Rate) 110 /min [facility] 12-09-2016 16:31-0400 Pulse Oximetry 98 % [facility] 12-09-2016 16:31-0400 Respiratory Rate 18 /min [facility] 12-09-2016 16:31-0400 Weight 88.96 kg [facility] Encounters Encounter Date Encounter Type Care Provider Facility Start: 04-25-2024 End: 04-27-2024 Clinisync Result Encounter Blake Anmol DO Work Phone: [facility] Unsolicited Start: 04-25-2024 End: 04-27-2024 Clinisync Result Encounter Blake Anmol DO Work Phone: [facility] Unsolicited Start: 04-18-2024 End: 04-18-2024 Office outpatient visit 25 minutes Jaswant Hussein PA-C Work Phone: [facility] Comment on above: Stenosis of cervical spine (Primary Dx) Start: 04-18-2024 End: 04-18-2024 ambulatory JASWANT HUSSEIN [facility] Start: 03-26-2024 End: 03-27-2024 Clinisync Result Encounter Blake Anmol DO Work Phone: [facility] Unsolicited Start: 03-26-2024 End: 03-27-2024 Clinisync Result Encounter Blake Anmol DO Work Phone: [facility] Unsolicited Start: 03-16-2024 End: 03-16-2024 ambulatory ANUP BUTLER [facility] Start: 03-13-2024 End: 03-13-2024 Clinisync Result Encounter [...] Start: 02-01-2024 End: 02-01-2024 [facility] Start: 01-26-2024 End: 01-26-2024 Refill Rachel Kan RN [facility] Comment on above: Chronic midline low back pain, unspecified whether sciatica present (Primary Dx); Intervertebral disc stenosis of neural canal of cervical region; DDD (degenerative disc disease), lumbosacral Start: 01-23-2024 End: 01-31-2024 Telephone encounter Yumiko Elizalde APRN-ASSET MANAGER Work Phone: [facility] Start: 01-10-2024 End: 01-10-2024 ambulatory [facility] Joanne [facility] Start: 01-10-2024 End: 01-10-2024 Office outpatient visit 25 minutes Yumiko Elizalde TANK TRUCK OPERATOR-ASSET MANAGER Work Phone: [facility] Comment on above: Lumbar post-laminect yaritza syndrome (Primary Dx) Start: 12-26-2023 End: 12-28-2023 Clinisync Result Encounter Blake Anmol DO Work Phone: [facility] Unsolicited Start: 12-26-2023 End: 12-28-2023 Clinisync Result Encounter Blake Anmol DO Work Phone: [facility] Unsolicited Start: 12-23-2023 End: 12-23-2023 ambulatory [facility] Start: 12-23-2023 End: 12-23-2023 ambulatory [facility] Start: 12-06-2023 ambulatory Johan Zoe Facility:[facility] Start: 11-28-2023 End: 12-02-2023 Telephone encounter Kacy Dao RN [facility] Start: 11-25-2023 End: 11-25-2023 ambulatory [facility] Start: 11-25-2023 End: 11-27-2023 Clinisync Result Encounter Blake Anmol DO Work Phone: [facility] Unsolicited Start: 11-25-2023 End: 11-27-2023 Clinisync Result Encounter Blake Anmol DO Work Phone: [facility] Unsolicited Start: 11-25-2023 End: 11-25-2023 [facility] Start: 10-26-2023 End: 10-28-2023 Clinisync Result Encounter Blake Anmol DO Work Phone: [facility] Unsolicited Start: 10-26-2023 End: 10-28-2023 Clinisync Result Encounter Blake Anmol DO Work Phone: [facility] Unsolicited Start: 10-25-2023 End: 10-25-2023 ambulatory YUMIKO ELIZALDE [facility] Start: 10-25-2023 End: 10-25-2023 Office outpatient visit 25 minutes Yumiko Elizalde TANK TRUCK OPERATOR-ASSET MANAGER Work Phone: [facility] Comment on above: Intervertebral disc stenosis of neural canal of cervical region (Primary Dx) Start: 10-06-2023 End: 10-06-[address] [facility] Work Phone: Start: 10-06-2023 End: 10-06-2023 Patient encounter procedure [facility] Work Phone: Start: 09-30-2023 End: 09-30-2023 Office outpatient visit 15 minutes Elayne Luciano MD Work Phone: [facility] Comment on above: DDD (degenerative [...] 09-18-2023 Refill Gino Nicolas MD Work Phone: [facility] Start: 09-15-2023 End: 09-15-2023 ambulatory [facility] Start: 08-26-2023 End: 08-26-2023 Office outpatient visit 25 minutes Elayne Luciano MD Work Phone: [facility] Comment on above: Neck pain (Primary D x); Low back pain, unspecified back pain laterality, unspecified chronicity, unspecified whether sciatica present Start: 08-26-2023 End: 08-26-2023 ambulatory [facility] Start: 08-20-2023 End: 08-20-2023 [facility] Start: 08-19-2023 End: 08-19-2023 ambulatory ANUP BUTLER [facility] Start: 08-15-2023 Non-patient / Non-visit [facility] Work Phone: Start: 08-15-2023 End: 08-15-2023 ambulatory BLAKE COREA Not Available Start: 08-10-2023 End: 08-10-2023 Telephone encounter Joselin Gabrielroe RMA [facility] Start: 06-27-2023 End: 07-04-2023 Telephone encounter Lorena Gomez CNA [facility] Start: 06-16-2023 End: 06-21-2023 Telephone encounter Rachel Kan RN [facility] Start: 06-15-2023 End: 06-15-2023 Emergency department patient visit GENOVEVA Haile Work Phone: [facility] Work Phone: Start: 06-01-2023 End: 06-02-2023 Emergency department patient visit KYLAH AMADO [facility] Start: 05-31-2023 Jason Nicolas MD Work Phone: [facility] Start: 05-31-2023 End: 05-31-2023 Office outpatient visit 15 minutes Renetta ROJAS Work Phone: [facility] Comment on above: Lumbar radiculopathy (Primary Dx) Start: 05-31-2023 End: 05-31-2023 ambulatory RENETTA ELIZALDE [facility] Start: 05-26-2023 End: 05-26-[address] [facility] Work Phone: Start: 05-26-2023 End: 05-26-2023 Patient encounter procedure [facility] Work Phone: Start: 05-14-2023 End: 05-14-2023 ambulatory LAITH BECK [facility] Start: 05-13-2023 End: 05-13-2023 ambulatory ANUP BUTLER [facility] Start: 05-10-2023 Telephone encounter Ana Pichardo [facility] Start: 05-04-2023 End: 05-04-2023 ambulatory JASWANT HUSSEIN [facility] Start: 05-04-2023 End: 05-04-2023 Office outpatient visit 25 minutes Renetta Elizalde PA Work Phone: [facility] Comment on above: Lumbar radiculopathy (Primary Dx); Spinal stenosis of lumbar region with neurogenic claudication Start: 04-28-2023 Non-patient / Non-visit [facility] Work Phone: Start: 04-27-2023 Refill Cady Sifuentes [facility] Start: 04-21-2023 Telephone encounter Saida Valiente [facility] Start: 04-19-2023 Non-patient / Non-visit [facility] Work Phone: Start: 04-18-2023 End: 04-18-2023 ambulatory Berenice Haile Other [facility] [employer] Other Start: 04-18-2023 Telephone encounter Berenice Marsh [facility] Start: 04-11-2023 Clinisync Result Encounter Blake Anmol DO Work Phone: [facility] Unsolicited Start: 04-11-2023 External Result Encounter Blake Anmol DO Work Phone: [facility] Unsolicited Start: 04-11-2023 External Result Encounter Blake Anmol DO Work Phone: [facility] Unsolicited Start: 04-11-2023 End: 04-11-2023 ambulatory BLAKE ANMOL Not Available Start: 03-30-2023 Orders Only Johana hansen TANK TRUCK OPERATOR-ASSET MANAGER Work Phone: [facility] Comment on above: Bilateral leg pain ( Primary Dx); Herniated lumbar intervertebral disc; S/P lumbar fusion; Lumbar foraminal stenosis Start: 03-21-2023 End: 03-21-2023 ambulatory Berenice Carolinecasey Other [employer] Other Start: 03-21-2023 Office outpatient vi sit 25 minutes Berenice Lazara [facility] Start: 03-21-2023 End: 03-21-2023 Patient encounter procedure [facility] Work Phone: Start: 03-17-2023 End: 03-17-2023 ambulatory Berenice Gracemaryurisheela Other [employer] Other Start: 03-17-2023 Telephone encounter Berenice Salma her [facility] Start: 03-16-2023 Orders Only Johana hansen TANK TRUCK OPERATOR-ASSET MANAGER Work Phone: [facility] Comment on above: S/P lumbar fusion Start: 03-02-2023 ambulatory BERENICE HAILE [facility] Start: 02-23-2023 End: 02-23-2023 Patient encounter procedure TANK TRUCK OPERATOR Berenice Lazara Work Phone: [facility] [place] Work Phone: Start: 02-23-2023 End: 02-23-2023 ambulatory TANK TRUCK OPERATOR Berenice Lazara Work Phone: [facility] Work Phone: Start: 01-17-2023 End: 01-17-2023 ambulatory RENETTA PASTOR Not Available Start: 12-22-2022 End: 12-22-2022 ambulatory Ladarius Pitts Other [employer] Other Start: 12-22-2022 Telephone encounter Ladarius Marrero [employer] Start: 12-13-2022 End: 12-13-2022 Patient encounter procedure PHYSICIAN FELICE RIVERA [facility] [place] Work Phone: Start: 12-13-2022 End: 12-13-2022 ambulatory PHYSICIAN FELICE RIVERA [facility] Work Phone: Start: 12-13-2022 Office outpatient ne w 30 minutes Ladarius Pitts [facility] Start: 12-06-2022 End: 12-06-2022 ambulatory Berenice Haile Other [employer] Other Start: 12-06-2022 Telephone encounter Berenice Marsh her [facility] Start: 11-22-2022 End: 11-22-2022 ambulatory Berenice Haile Other [employer] Other Start: 11-22-2022 Telephone encounter Berenice Salma her [facility] [employer] Start: 11-02-2022 End: 11-02-2022 ambulatory Berenice Haile Other [employer] Other Start: 11-02-2022 Telephone encounter Berenice Salma her [facility] [employer] Start: 09-22-2022 End: 09-22-2022 Departed Referred TANK TRUCK OPERATOR Berenice Haile Work Phone: [facility] [place] Work Phone: Start: 09-22-2022 End: 09-22-2022 ambulatory TANK TRUCK OPERATOR Berenice Haile Work Phone: [facility] Work Phone: Start: 09-22-2022 Office outpatient ne w 30 minutes Berenice Haile [facility] Start: 09-08-2022 End: 09-08-2022 Emergency department patient visit [facility] Start: 05-24-2022 End: 05-24-[address] LESLEY LINDSEY . Facility:[facility] Start: 01-21-2022 End: 01-21-2022 ambulatory IRINA PEREZ Facility:[facility] Start: 01-19-2022 End: 01-19-2022 ambulatory Liz [place] Other [employer] Other Start: 01-19-2022 Office outpatient vi sit 15 minutes Liz Billingsley [facility] Start: 10-08-[address] Arthur MADERA Facili ty:H1 Start: 08-31-2021 End: 08-31-2021 ambulatory Agus Madera Other [employer] Other Start: 08-31-2021 Telephone encounter Agus ramirez [facility] Start: 08-06-2021 End: 08-07-2021 ambulatory IRINA PEREZ Facility:[facility]1 Start: 07-01-2021 End: 07-01-2021 ambulatory Agus Madera Other [employer] Other Start: 07-01-2021 Telephone encounter Agus ramirez [facility] Start: 03-03-2021 End: 03-03-2021 ambulatory Agus Madera Other [employer] Other Start: 03-03-2021 Office outpatient ne w 45 minutes Agus Madera [facility] Start: 12-27-2020 End: 12-27-2020 Emergency department patient visit Sai Hernandez MD Work Phone: [facility] ED Comment on above: Substance abuse (HCC ) (Primary Dx) Start: 07-10-2020 End: 07-10-2020 FQHC visit, estab pt Li DUARTE Work Phone: [facility] Work Phone: Start: 07-10-2020 End: 07-10-2020 FQHC visit, estab pt Li DUARTE Work Phone: [facility] Work Phone: Start: 07-10-2020 End: 07-10-2020 General Megan Arita CNP Work Phone: [facility] Work Phone: Start: 09-05-2019 End: 09-06-2019 ambulatory ROSANA ALANIZ Facility:[facility] Start: 07-16-2019 End: 07-16-2019 Nursing evaluation of patient and report Susan Em Work Phone: [facility] Work Phone: Start: 07-16-2019 End: 07-16-2019 Patient encounter procedure Rosana Alaniz Work Phone: Health [facility] Work Phone: Start: 07-16-2019 End: 03-13-2020 Patient encounter procedure Li Sutherland Work Phone: [facility] Work Phone: Start: 07-16-2019 End: 03-13-2020 Telemedicine consultation with patient Rosana Alaniz Work Phone: [facility] Work Phone: Start: 07-04-2019 End: 07-04-2019 Telemedicine consultation with patient Rosana Alaniz Work Phone: [facility] Work Phone: Start: 06-01-2019 End: 06-01-2019 Patient encounter procedure Li Sutherland Work Phone: [facility] Work Phone: Start: 06-01-2019 End: 06-01-2019 Telemedicine consultation with patient Rosana Alaniz Work Phone: [facility] Work Phone: Start: 05-24-2019 End: 05-24-2019 Established patient Rosana Alaniz Work Phone: [facility] Work Phone: Start: 03-08-2019 End: 03-08-2019 ambulatory Rosana Alaniz Work Phone: [facility] Work Phone: Start: 02-20-2019 End: 02-20-2019 Established patient Uday Hansen Work Phone: [facility] Work Phone: Start: 02-20-2019 End: 02-20-2019 Established patient Rosana Alaniz Work Phone: [facility] Work Phone: Start: 02-06-2019 End: 02-06-2019 Patient encounter procedure Rosana Alaniz Work Phone: [facility] Work Phone: Start: 01-29-2019 End: 01-29-2019 Emergency department patient visit ROSANA ALANIZ [facility] Start: 01-29-2019 End: 01-29-2019 Emergency department patient visit Waylon Montoya Work Phone: [facility] ED Comment on above: Accidental overdose of heroin, initial encounter (HCC) (Primary Dx) Start: 2019 End: 2019 Emergency department patient visit Sourav Baird Work Phone: [facility] ED Comment on above: Sciatica of left ramin e (Primary Dx); Closed fracture of right foot, initial encounter Start: 01-04-2019 End: 01-04-2019 Established patient Primitivo Lujan Work Phone: [facility] Work Phone: Start: 01-03-2019 End: 01-03-2019 Emergency department patient visit Elayne Hurley [facility] ED Comment on above: Herniated interverte bral disc of lumbar spine (Primary Dx); Neuropathy Start: 11-20-2018 End: 11-20-2018 Established patient Rosana Alaniz Work Phone: [facility] Work Phone: Start: 11-14-2018 End: 11-14-2018 Emergency department patient visit Marco A Jia Work Phone: [facility] ED Comment on above: Bilateral lower extr emity edema (Primary Dx); Transaminitis; Impetigo Start: 11-14-2018 End: 11-14-2018 Subsequent hospital visit by physician Rosana Alaniz [facility] Start: 11-14-2018 End: 11-16-2018 Subsequent hospital visit by physician [facility] Comment on above: Pain of left calf Start: 10-26-2018 End: 10-26-2018 Patient encounter procedure Rosana Alaniz Work Phone: [facility] Work Phone: Start: 10-25-2018 End: 10-25-2018 Patient encounter procedure Ivy Le Work Phone: [facility] Work Phone: Start: 10-15-2018 End: 10-15-2018 Emergency department patient visit JENNIFER WHALEY [facility] Start: 10-15-2018 End: 10-15-2018 Emergency department patient visit Jennifer Whaley Work Phone: [facility] ED Comment on above: Injury of left foot, initial encounter (Primary Dx) Start: 08-31-2018 End: 08-31-2018 Patient encounter procedure Rosana Alaniz Work Phone: [facility] Work Phone: Start: 06-15-2018 End: 06-15-2018 Established patient Rosana Alaniz Work Phone: [facility] Work Phone: Start: 06-01-2018 End: 06-01-2018 Patient encounter procedure Rosana Alaniz Work Phone: [facility] Work Phone: Start: 04-24-2018 End: 04-24-2018 Patient encounter procedure Rosana Alaniz Work Phone: [facility] Work Phone: Start: 04-06-2018 End: 04-06-2018 Patient encounter procedure Rosana Alaniz Work Phone: [facility] Work Phone: Start: 02-16-2018 Evaluation and management of established outpatient in office or other outpatient facility Rosana Alaniz [facility] Start: 02-16-2018 End: 02-16-2018 Patient encounter procedure Rosana Novoa [facility] Work Phone: Start: 02-16-2018 Medical Rosana Alaniz Other [facility] Start: 01-16-2018 Patient encounter OZZIE MCKEON [facility] Start: 11-24-2017 End: 11-24-2017 Patient encounter procedure Rosana Alaniz [facility] Work Phone: Start: 11-24-2017 Laboratory examinati on, unspecified Rosana Alaniz [facility] Start: 11-24-2017 Comprehensive metabo lic panel Rosanaray Alaniz [facility] Start: 11-24-2017 End: 11-24-2017 Office outpatient visit 15 minutes Rosana Alaniz Other [facility] Start: 11-24-2017 Radex ankle complete minimum 3 views Rosanaray Alaniz [facility] Start: 11-24-2017 Radex foot complete minimum 3 views Rosanaray Alaniz [facility] Start: 10-23-2017 End: 10-24-2017 Emergency department patient visit ACHILLES [facility] Start: 08-16-2017 End: 08-16-2017 Office outpatient visit 25 minutes Rosana Alaniz Other [facility] Start: 05-26-2017 Evaluation and management of established outpatient in office or other outpatient facility Rosana Alaniz [facility] Start: 05-26-2017 Antibody herpes smpl x type 1 Rosana Katty [facility] Start: 05-26-2017 C-reactive protein h igh sensitivity [facility] Start: 05-26-2017 End: 05-26-2017 Office outpatient visit 25 minutes Rosana Alaniz Other [facility] Start: 05-26-2017 Sedimentation rate r bc automated [facility] Start: 03-29-2017 End: 03-29-2017 Office outpatient visit 15 minutes Rosana Alaniz Other [facility] Start: 02-22-2017 Antibody herpes smpl x type 1 [facility] Start: 02-22-2017 C-reactive protein Rosanaray Alaniz [facility] Start: 02-22-2017 Comprehensive metabo lic panel [facility] Start: 02-22-2017 Culture bacterial bl ood aerobic w/id isolates [facility] Start: 02-22-2017 End: 02-22-2017 Office outpatient visit 25 minutes Rosana Alaniz Other [facility] Start: 02-22-2017 Sedimentation rate r bc automated [facility] Start: 02-22-2017 Evaluation and management of established outpatient in office or other outpatient facility [facility] Start: 02-01-2017 End: 02-01-2017 Office outpatient visit 15 minutes Rosana Alaniz Other [facility] Start: 02-01-2017 Polysom 6/>yrs sleep 4/> addl lona [facility] Start: 02-01-2017 Polysom 6/>yrs sleep w/cpap 4/> addl lona [facility] Start: 01-06-2017 End: 01-06-2017 Office outpatient visit 15 minutes Rosana Alaniz Other [facility] Start: 12-09-2016 End: 12-09-2016 Office outpatient new 20 minutes Rosana Alaniz Other [facility] Start: 09-15-2016 Ambulatory CHANO FRANKLIN Facility: [facility] Procedures Date Procedure Procedure Detail [...] in Cervix by Cyto stain Johana Hansen TANK TRUCK OPERATOR-ASSET MANAGER Work Phone: Start: 12-27-2020 Blood gases any [...] cleared fda spec home use Rosana Alaniz ASSET MANAGER Work Phone: Start: 07-10-2020 Most recent diastolic blood pressure < 80 mm hg Rosana Alaniz ASSET MANAGER Work Phone: Start: 07-10-2020 Most recent systolic blood pressure <130 mm hg Rosana Alaniz ASSET MANAGER Work Phone: Start: 07-10-2020 Psychotherapy w/patient 30 [...] foot complete minimum 3 views Jennifer Monterroso [facility] Work Phone: Start: 06-15-2018 ANXIETY DISORDER NOS [...] Td Vaccines (6 - Td or Tdap) [facility] Start: 03-08-2030 DTaP/Tdap/Td vaccine (2 - Td or Tdap) DTaP/Tdap/Td vaccine (2 - Td or Tdap) [employer] Phone: Start: 08-14-2028 Screening for malign ant neoplasm of cervix [facility] Start: 08-14-2026 Screening for malign ant neoplasm of cervix Pap Smear [facility] Start: 05-24-2025 Screening for malign ant neoplasm of cervix [facility] Start: 04-18-2025 Adult BMI Screening Adult BMI Screen ing [facility] Start: 04-18-2025 Tobacco Screening Tobacco Screening [facility] Start: 01-09-2025 Tobacco Screening Tobacco Screening [facility] Start: 10-24-2024 Adult BMI Screening Adult BMI Screen ing [facility] Start: 10-24-2024 Tobacco Screening Tobacco Screening [facility] Start: 09-29-2024 Adult BMI Screening Adult BMI Screen ing [facility] Start: 09-14-2024 Adult BMI Screening Adult BMI Screen ing [facility] Start: 09-14-2024 Tobacco Screening Tobacco Screening [facility] Start: 08-25-2024 Adult BMI Screening Adult BMI Screen ing [facility] Start: 08-25-2024 Tobacco Screening Tobacco Screening [facility] Start: 05-30-2024 Adult BMI Screening Adult BMI Screen ing [facility] Start: 05-30-2024 Tobacco Screening Tobacco Screening [facility] Start: 05-30-2024 End: 05-30-2024 Patient encounter procedure 05/30/2024 10:30 AM EDT Office Visit [facility] [address] [place] [address] Jaswant Hussein PA-C [address] [place] [address] [facility] Start: 05-04-2024 Adult BMI Screening Adult BMI Screen ing [facility] Start: 05-04-2024 Tobacco Screening Tobacco Screening [facility] Start: 05-04-2024 End: 05-04-2024 Admission to same day surgery center 05/04/2024 1:50 PM EST - 05/04/2024 1:57 PM EST Surgery [facility] [address] [place] [place] [phone] Anup Butler MD [address] [place], [place] [id number] INJECTION BLOCK EPIDURAL CERVICAL/THORACIC C 6/7 TANIA [24757 (CPT )] [facility] Comment on above: INJECTION BLOCK EPID URAL CERVICAL/THORACIC C 6/7 TANIA [68425 (CPT )] Start: 05-04-2024 End: 05-04-2024 Njx dx/ther sbst intrlmnr crv/thrc w/img gdn INJECTION BLOCK EPIDURAL CERVICAL/THORACIC Stenosis of cervical spine 05/04/2024 1:50 PM EST [facility] Start: 05-04-2024 Subsequent hospital visit by physician 05/04/2024 1:50 PM EST Hospital Encounter [facility] [address] [place] [phone] Anup Butler MD [address] [place] [address] [facility] Start: 01-10-2024 End: 01-10-2024 Patient encounter procedure 01/10/2024 2:45 PM EST Office Visit [facility] [address] [place] [phone] Yumiko Elizalde, TANK TRUCK OPERATOR-ASSET MANAGER [address] [place] [address] [facility] Start: 01-09-2024 Adult BMI Screening Adult BMI Screen [facility] Start: 12-23-2023 End: 12-23-2023 Admission to same day surgery center 12/23/2023 12:37 PM EDT - 12/23/2023 12:44 PM EDT Surgery [facility] [address] [place] [address] Anup Butler MD [address] [place] [id number] INJECTION SPINE TRANSFORAMINAL LEFT C 6, 7 NROOT [15872 (CPT )] [facility] Comment on above: INJECTION SPINE ANDERSON SFORAMINAL LEFT C 6, 7 NROOT [21225 (CPT )] Start: 12-23-2023 End: 12-23-2023 Njx anes&/strd w/img tfrml edrl crv/thrc 1 lvl INJECTION SPINE TRANSFORAMINAL Intervertebral disc stenosis of neural canal of cervical region 12/23/2023 12:37 PM EDT [facility] Start: 12-23-2023 Subsequent hospital visit by physician 12/23/2023 12:37 PM EDT Hospital Encounter [facility] [address] [place] [address] Anup Butler MD [address] [place], [place] [id number] [facility] Start: 12-17-2023 Tobacco Screening Tobacco Screening [facility] Start: 11-06-2023 Influenza vaccination [facility] Start: 09-30-2023 End: 09-30-2023 Patient encounter procedure 09/30/2023 10:40 AM EDT Office Visit [facility] [place] [phone] [place] [address] [place] [address] [address] [place] [address] [facility] Start: 09-13-2023 End: 09-13-2023 Patient encounter procedure 09/13/2023 10:45 AM EDT Office Visit [facility] [address] [place] [address] Renetta Elizalde PA [address] [facility] [place] [address] [facility] Start: 08-26-2023 End: 08-25-2024 CT Cervical spine W contrast IV CT cervical spine with contrast Imaging Routine Neck pain Low back pain, unspecified back pain laterality, unspecified chronicity, unspecified whether sciatica present Expected: 08/26/2023, Expires: 08/25/[address] [facility] Comment on above: Expected: 08/26/2023 , Expires: 08/25/2024 Start: 08-26-2023 End: 08-25-2024 CT Lumbar spine W contrast IV CT lumbar spine with contrast Imaging Routine Neck pain Low back pain, unspecified back pain laterality, unspecified chronicity, unspecified whether sciatica present Expected: 08/26/2023, Expires: 08/25/[address] [facility] Comment on above: Expected: 08/26/2023 , Expires: 08/25/2024 Start: 08-26-2023 End: 08-25-2024 RF Spine Views W contrast IT IR myelogram 2+ regions complete Imaging Routine Neck pain Low back pain, unspecified back pain laterality, unspecified chronicity, unspecified whether sciatica present Expected: 08/26/2023, Expires: 08/25/2024 [facility] [employer] Comment on above: Expected: 08/26/2023 , Expires: 08/25/2024 Start: 08-26-2023 End: 08-25-2024 XR Cervical spine Lateral Views W flexion and W extension [facility] Work Phone: Comment on above: Expected: 08/26/2023 , Expires: 08/25/2024 Start: 08-19-2023 End: 08-19-2023 Admission to same day surgery center 08/19/2023 10:09 AM EDT - 08/19/2023 10:15 AM EDT Surgery [facility] [address] [place] [phone] Anup Butler MD [address], [place] [phone] INJECTION BLOCK EPIDURAL CAUDAL STEROID [25244 (CPT )] [facility] Comment on above: INJECTION BLOCK EPID URAL CAUDAL STEROID [74867 (CPT )] Start: 08-19-2023 End: 08-19-2023 Njx dx/ther sbst intrlmnr lmbr/sac w/img gdn INJECTION BLOCK EPIDURAL CAUDAL STEROID Lumbar radiculopathy 08/19/2023 10:09 AM EDT [facility] Start: 08-19-2023 Subsequent hospital visit by physician 08/19/2023 10:09 AM EDT Hospital Encounter [facility] [address] [place] [phone] Anup Butler MD [address], [place] [phone] [facility] Start: 08-17-2023 End: 08-17-2023 Patient encounter procedure 08/17/2023 1:10 PM EDT Office Visit [facility] [address] [place] [address] Elayne Luciano MD [address] [facility] [address] [place] [address] [facility] Start: 08-15-2023 End: 08-15-2023 Patient encounter procedure 08/15/2023 1:00 PM EDT Procedure Visit [facility] [address] [place] [address] Blake Corea DO [address] [place] [address] [facility] Start: 07-08-2023 Subsequent hospital visit by physician 07/08/2023 Hospital Encounter [facility] [address] [place] [address] Anup Butler MD [address] [place] [address] [facility] Start: 07-05-2023 End: 07-05-2023 Patient encounter procedure 07/05/2023 1:00 PM EDT Office Visit [facility] [address] [place] [address] Renetta Elizalde PA [address] [place] [address] [facility] Start: 06-17-2023 End: 06-17-2023 Admission to same day surgery center 06/17/2023 7:57 AM EDT - 06/17/2023 8:03 AM EDT Surgery [facility] [address] [place] [address] Anup Butler MD [address] [place] [phone] INJECTION BLOCK EPIDURAL CAUDAL STEROID [91168 (CPT )] [facility] Comment on above: INJECTION BLOCK EPID URAL CAUDAL STEROID [46026 (CPT )] Start: 06-17-2023 End: 06-17-2023 Njx dx/ther sbst intrlmnr lmbr/sac w/img gdn INJECTION BLOCK EPIDURAL CAUDAL STEROID Lumbar radiculopathy 06/17/2023 7:57 AM EDT [facility] Start: 06-17-2023 Subsequent hospital visit by physician 06/17/2023 7:57 AM EDT Hospital Encounter [facility] [address] [place] [phone] Anup Butler MD [address] [place] [phone] [facility] Start: 06-15-2023 Bacteria identified in Urine by Culture [facility] Start: 05-31-2023 End: 05-31-2023 Patient encounter procedure 05/31/2023 1:45 PM EDT Office Visit [facility] [address] [place] [phone] Renetta Elizalde PA [address] [place], [place] [phone] [facility] Start: 05-13-2023 End: 05-13-2023 Admission to same day surgery center 05/13/2023 12:51 PM EST - 05/13/2023 12:57 PM EST Surgery [facility] [address] [place] [address] Anup Butler MD [address] [facility] [place] [phone] INJECTION SPINE TRANSFORAMINAL Right L 5,1 Nroot [19286 (CPT )] [facility] Comment on above: INJECTION SPINE ANDERSON SFORAMINAL Right L 5,1 Nroot [77276 (CPT )] Start: 05-13-2023 End: 05-13-2023 Njx anes&/strd w/img tfrml edrl lmbr/sac 1 lvl INJECTION SPINE TRANSFORAMINAL Lumbar radiculopathy Spinal stenosis of lumbar region with neurogenic claudication 05/13/2023 12:51 PM EST [facility] Start: 05-13-2023 Subsequent hospital visit by physician 05/13/2023 12:51 PM EST Hospital Encounter [facility] [address] [place] [phone] Anup Butler MD [address] [place], [place] [phone] [facility] Start: 05-03-2023 End: 05-03-2023 Patient encounter procedure 05/03/2023 1:00 PM EST Office Visit [facility] [address] [place] [address] Renetta Elizalde PA [address] [place], [place] [phone] [facility] Start: 04-28-2023 Patient referral [facility] Work Phone: Start: 04-27-2023 End: 04-27-2023 Patient encounter procedure 04/27/2023 8:00 AM EST Office Visit [facility] [address] [place] [phone] Gino Nicolas MD [address] [facility] [address] [place] [address] [facility] Start: 04-05-2023 End: 04-05-2023 Patient encounter procedure 04/05/2023 2:30 PM EST Office Visit [facility] [address] [address] Shruthi Chinchilla MD [address] [facility] [address] [place] [address] [facility] Start: 11-05-2022 Influenza vaccination N [facility] Start: 09-22-2022 [facility] Start: 09-22-2022 Aerobic Culture Aerobic Culture [facility] Start: 09-22-2022 Anaerobic Culture Anaerobic Culture [facility] Start: 09-22-2022 Microscopic observat ion [Identifier] in Unspecified specimen by Gram stain Gram Stain [facility] Start: 12-27-2021 Creatinine measurement Creatinine mo nitoring [facility] Work Phone: Start: 12-27-2021 Potassium monitoring Potassium monit [facility] Work Phone: Start: 11-05-2020 Influenza vaccination Flu vaccine (# 1) [facility] Work Phone: Start: 01-04-2020 Creatinine monitoring Creatinine mon [place], [place] Start: 01-04-2020 Potassium monitoring Potassium monit [place], [place] Start: 11-15-2019 Creatinine monitoring Creatinine mon [place], [place] Start: 11-15-2019 Potassium monitoring Potassium monit [place], [place] Start: 07-17-2019 Drug Test, Uri ne, In House [facility] Work Phone: Start: 07-12-2019 HbA1c (Bld) [Mass fraction] [facility] Work Phone: Start: 07-04-2019 Medical Establ ished Patient [facility] Work Phone: Start: 03-28-2019 Nurse Visit [facility] Work Phone: Start: 02-21-2019 [facility] Work Phone: Start: 02-20-2019 [facility] Work Phone: Comment on above: Note: Please make a referral to: Note: Please make a referral to: Dr Quintero Start: 01-04-2019 [facility] Work Phone: Comment on above: Note: Please make a referral to: falling, concerns for MS family hx Note: Please make a referral to: bulging disc with L5 nerve compression Start: 11-27-2018 Lipid 1996 panel [facility] Work Phone: Start: 11-20-2018 Neurology [facility] Work Phone: Comment on above: Note: Please make a referral to: [facility] if possible Start: 11-05-2018 Influenza vaccination Flu vaccine (# 1) [place], [place] Start: 10-25-2018 Orthopedics [employer] [facility] [employer] [facility] Work Phone: Comment on above: Note: Please make a referral to: Start: 10-17-2018 End: 10-17-2018 Appointment 10/17/2018 Appointment Pain Management Phyllis Vazquez MD [address] [address] [place] [address] [phone] [facility] Start: 08-31-2018 Pain Management [facility] Work Phone: Comment on above: Note: Please make a referral to: pro szymanski Start: 06-01-2018 Dermatology [facility] Work Phone: Comment on above: Note: Please make a referral to: Start: 11-25-2017 Drug test prsmv read direct optical obs pr date Urine Drug Test [facility] Start: 11-24-2017 Assay of free thyroxine TSH + free t 4 [facility] Start: 11-24-2017 Assay of iron Iron + TIBC ser [facility] Start: 11-24-2017 Assay of thyroid stimulating hormone tsh TSH + free t4 [facility] Start: 11-24-2017 Blood count complete auto&auto difrntl wbc CBC W/Diff [facility] Start: 11-24-2017 Blood count complete automated CBC auto [facility] Start: 11-24-2017 Cobalamin (Vitamin B 12) mass conc Vitamin B12 and Folate [facility] Start: 11-24-2017 Comprehensive metabo lic panel CMP [facility] Start: 11-24-2017 Iron binding capacity Iron + TIBC se r [facility] Start: 11-24-2017 Lipid panel Lipid Panel (C hol, HDL, LDL, Trig., VLDL) [facility] Start: 11-24-2017 [facility] Start: 08-16-2017 Drug test prsmv read direct optical obs pr date Urine Drug Test [facility] Start: 05-26-2017 Antibody herpes smpl x type 1 HSV 1 + 2 ab panel (IgG + IgM) [facility] Start: 05-26-2017 Blood count complete auto&auto difrntl wbc CBC W/Diff [facility] Start: 05-26-2017 C-reactive protein h igh sensitivity CRP high sensit [facility] Start: 05-26-2017 Erythrocyte sedimentation rate ESR [facility] Start: 03-22-2018 Protein mass conc CRP high sensit [facility] Start: 05-26-2017 Syphilis test non-treponemal antibody qual Syphilis test, non-treponemal antibody; qualitative (eg, VDRL, RPR, ART) Health [facility] Start: 01-12-2016 Screening for malign ant neoplasm of cervix [facility] Start: 2007 Cervical cancer screen Cervical canc er screen [place], [place] Start: 2007 Screening for malign ant neoplasm of cervix Pap smear [facility] [employer] Phone: Start: 2005 DTaP/Tdap/Td vaccine (1 - Tdap) DTaP/Tdap/Td vaccine (1 - Tdap) [place] Start: 01-12-2004 Adult BMI Follow Up Plan Adult BMI Follow [facility] Plan [facility] Start: 2001 HIV screen HIV screen [place], [place] Start: 1999 Varicella Vaccine (1 of 2 - 13+ 2-dose series) Varicella Vaccine (1 of 2 - 13+ 2-dose series) [place], [place] Start: 1998 COVID-19 Vaccine (1) COVID-19 Vaccin e (1) [facility] [employer] Phone: Start: 1998 Depression Screening Depression Scre [facility] Start: 1997 DTaP/Tdap/Td vaccine (1 - Tdap) DTaP/Tdap/Td vaccine (1 - Tdap) [place] Start: 01-12-1992 Pneumococcal 0-64 ye ars Vaccine (1 of 1 - PPSV23) Pneumococcal 0-64 years Vaccine (1 of 1 - PPSV23) [place] Start: 01-12-1992 Pneumococcal 0-64 ye ars Vaccine (1 of 2 - PPSV23) Pneumococcal 0-64 years Vaccine (1 of 2 - PPSV23) [facility] [employer] Phone: Start: 1987 Varicella Vaccine (1 of 2 - 2-dose childhood series) Varicella Vaccine (1 of 2 - 2-dose childhood series) [place], [place] Start: 1986 Creatinine monitoring Creatinine mon monica [place], [place] Start: 1986 Potassium monitoring Potassium monit saqib [place] End: 08-25-2024 Creatinine includes GFR, serum Creatinine includes GFR, serum Lab Routine Neck pain Low back pain, unspecified back pain laterality, unspecified chronicity, unspecified whether sciatica present 1 Occurrences starting 08/26/2023 until 08/25/2024 [facility] Comment on above: 1 Occurrences starti ng 08/26/2023 until 08/25/2024 End: 01-03-2019 Culture Blood #1 Culture Blood #1 Microbiology STAT One Time for 1 Occurrences starting 01/03/2019 until 01/03/2019 [place] Comment on above: One Time for 1 Occur rences starting 01/03/2019 until 01/03/2019 Culture Blood #1 Culture Blood # 1 Microbiology STAT 01/03/2019 5:11 PM EDT [place] End: 01-03-2019 Culture Blood #2 Culture Blood #2 Microbiology STAT One Time for 1 Occurrences starting 01/03/2019 until 01/03/2019 [place] Comment on above: One Time for 1 Occur rences starting 01/03/2019 until 01/03/2019 Culture Blood #2 Culture Blood # 2 Microbiology STAT 01/03/2019 5:23 PM EDT [place] EKG 12 Lead EKG 12 Lead ECG STAT 12/27/2020 9:52 AM EDT [facility] Work Phone: End: 12-27-2020 Glucose [Mass/volume] in Serum or Plasma POCT glucose Point of Care Testing STAT One Time for 1 Occurrences starting 12/27/2020 until 12/27/2020 [employer] Phone: Comment on above: One Time for 1 Occur rences starting 12/27/2020 until 12/27/2020 Hepatitis C virus RN A [log units/volume] (viral load) in Serum or Plasma by BETITO with probe detection [facility] Njx anes&/strd w/img tfrml edrl crv/thrc [...] for 1 Occurrences starting 11/14/2018 until 11/14/2018 [place] Comment on above: Once for 1 Occurrenc es starting 11/14/2018 until 11/14/2018 Path Review, Smear Path Review, Smear Lab Routine 11/14/2018 5:08 PM EDT [place] Patient Education Altered Mental Status Drug Misuse and Addiction (DC) Substance Misuse Treatment [facility] Work Phone: Patient referral [facility] Work Phone: End: 2019 Splint application Splint application Procedures Routine One Time for 1 Occurrences starting 2019 until 2019 [place] Comment on above: One Time for 1 Occur rences starting 2019 until 2019 Immunizations Immunization Date Immunization Notes Care Provider Demetrius nicholas 03-08-2020 tetanus toxoid, redu dodie diphtheria toxoid, and acellular pertussis vaccine, adsorbed Johana Hansen TANK TRUCK OPERATOR-ASSET MANAGER Work Phone: [facility] 02-20-2019 hepatitis A vaccine, pediatric/adolescent dosage, 2 dose schedule; Translations: [Havrix] Rosana Alaniz [facility] Comment on above: Note: pt tolerated w ell, pt waited 10 min in treatment room with no adverse effects noted at this time 04-14-2018 hepatitis A vaccine, adult dosage [facility] 05-08-2017 influenza, seasonal, injectable, preservative free [facility] 05-08-2017 influenza virus vaccine, unspecified formulation Johana Hansen TANK TRUCK OPERATOR-ASSET MANAGER Work Phone: [facility] [employer] 01-13-2015 influenza, injectabl e, madin flora canine kidney, preservative free [facility] 12-02-2009 hepatitis B vaccine, pediatric or pediatric/adolescent dosage [facility] 06-20-2009 hepatitis B vaccine, pediatric or pediatric/adolescent dosage [facility] 05-20-2009 hepatitis B vaccine, pediatric or pediatric/adolescent dosage [facility] 11-17-1998 measles, mumps and rubella virus vaccine [facility] 01-31-1990 diphtheria, tetanus toxoids and pertussis vaccine [facility] 01-31-1990 trivalent poliovirus vaccine, live, oral [facility] 12-08-1987 diphtheria, tetanus toxoids and pertussis vaccine [facility] 12-08-1987 trivalent poliovirus vaccine, live, oral [facility] 12-07-1987 measles, mumps and rubella virus vaccine [facility] 1986 diphtheria, tetanus toxoids and pertussis vaccine [facility] 1986 trivalent poliovirus vaccine, live, oral [facility] 1986 diphtheria, tetanus toxoids and pertussis vaccine [facility] 1986 trivalent poliovirus vaccine, live, oral [facility] Payers Date Payer Category Payer Medicaid [id number] 2016 Unknown [employer] xxxxxxxxxxx 2016-Present [phone] [address] [place] [address] xxxxxxxxxxx [id number] 2016 Medicaid [id number] 2.16.840.1.050161.3.441 2010 Unknown [id number] 2.16.840.1.830150.3.441 1986 Unknown [id number] 2.16.840.1.714549.3.579.2.176 1986 Unknown [id number] 2.16.840.1.273408.3.579.2.176 1986 Unknown [id number] 2.16.840.1.287412.3.579.2.647 1986 Unknown [id number] 2.16.840.1.791790.3.579.2.593 1986 Unknown [id number] 2.16.840.1.290359.3.579.2.593 1986 Unknown [id number] 2.16.840.1.135971.3.579.2.593 1986 Unknown [id number] 2.16.840.1.021516.3.579.2.593 1986 Unknown [id number] 2.16.840.1.794534.3.579.2.173 1986 Unknown [id number] 2.16.840.1.156043.3.579.2.1286 1986 Unknown [id number] 2.16.840.1.531746.3.579.2.1286 1986 Unknown [id number] 2.16.840.1.965343.3.579.2.1286 1986 Unknown [id number] 2.16.840.1.652191.3.579.2.1286 1986 Unknown [id number] 2.16.840.1.808394.3.579.2.1259 1986 Unknown [id number] 2.16.840.1.819816.3.579.2.1259 1986 Unknown [id number] 2.16.840.1.823417.3.579.2.1259 1986 Unknown [id number] 2.16.840.1.608627.3.579.2.1259 1986 Unknown [id number] 2.16.840.1.115108.3.579.2.1286 1986 Unknown [id number] 2.16.840.1.794201.3.579.2.1285 1986 Unknown [id number] 2.16.840.1.910772.3.579.2.1285 1986 Unknown [id number] 2.16.840.1.501248.3.579.2.1285 1986 Unknown [id number] 2.16.840.1.615746.3.579.2.1285 1986 Unknown [id number] 2.16.840.1.332902.3.579.2.1285 1986 Unknown [id number] 2.16.840.1.087162.3.579.2.1285 1986 Unknown [id number] 2.16.840.1.185357.3.579.2.1285 1986 Unknown [id number] 2.16.840.1.571888.3.579.2.1285 1986 Unknown [id number] 2.16.840.1.418975.3.579.2.1285 1986 Unknown [id number] 2.16.840.1.791378.3.579.2.1285 1986 Unknown [id number] 2.16.840.1.644111.3.579.2.1285 1986 Unknown [id number] 2.16.840.1.818486.3.579.2.1285 1986 Unknown [id number] 2.16.840.1.429152.3.579.2.1285 1986 Unknown [id number] 2.16.840.1.373735.3.579.2.1285 1986 Unknown [id number] 2.16.840.1.010835.3.579.2.1285 1986 Unknown [id number] 2.16.840.1.122413.3.579.2.1285 1986 Unknown [id number] 2.16.840.1.365206.3.579.2.1286 1986 Unknown [id number] 2.16.840.1.878982.3.579.2.1286 1986 Unknown [id number] 2.16.840.1.714650.3.579.2.1286 1986 Unknown [id number] 2.16.840.1.177303.3.579.2.[facility] 1986 Unknown [id number] 2.16.840.1.617089.3.579.2.1286 1986 Unknown [id number] 2.16.840.1.448109.3.579.2.[facility] 1986 Unknown [id number] 2.16.840.1.475350.3.579.2.1286 1986 Unknown [id number] 2.16.840.1.638785.3.579.2.[facility] Unknown [id number] 2.16.840.1.998327.3.579.2.1286 1959 Self-pay 1959 Unknown [id number] 2.16.840.1.314260.19 Unknown [id number] 2.16.840.1.697660.3.579.2.531 Unknown [id number] 2.16.840.1.428983.3.579.2.531 Unknown [id number] 2.16.840.1.443327.3.579.2.531 Social History Date Type Detail Facility Start: Unknown if ever smoked [facility] Start: Light tobacco smoker [facility] Start: Current every day smoker [facility] Start: 10-15-2018 End: 08-26-2023 Tobacco smoking status [facility] Former smoker [facility] Start: 10-15-2018 End: 08-15-2023 Alcohol intake No [facility] Start: 1985 Sex Assigned At Not on file [facility]ITAL[facility] CHYNA Assertion Gender identity finding (finding) [facility] Work Phone: Assertion Finding of sexua l orientation (finding) [facility] Work Phone: Assertion Sexually active (finding) [facility] Work Phone: Tobacco smoking status Unknown if ever smoked [facility] Work Phone: Start: 2019 End: 12-27-2020 Tobacco smoking status NHIS Current some day smoker [facility]ITAL[facility] CHYNA [facility]ion [facility] Assertion Alcohol consumpt ion screening (procedure) [facility] Work Phone: Assertion Problem situatio n relating to social and personal history (finding) [facility] Work Phone: Assertion Emotional stress (finding) [facility] Work Phone: Assertion Single person (finding) [facility] Work Phone: Start: 01-29-2019 End: 12-27-2020 Alcohol intake Current non-drinker of alcohol (finding) [facility]ITAL[facility] [employer] Start: 12-27-2020 End: 01-04-2023 Tobacco use and exposure Never used [employer] Exposure to SARS-CoV-2 (event) Not sure [facility] [employer] Start: 1985 Sex Assigned At Female [facility] Start: 11-17-2016 End: 01-04-2023 Tobacco smoking status ALIS Never smoked tobacco [facility] Start: 04-11-2023 End: 09-19-2023 Alcohol intake Ex-drinker (finding) [facility] Start: 04-11-2023 End: 08-15-2023 History of Social function [facility] Start: 06-15-2023 End: 10-06-2023 Tobacco smoking status NHIS Smoker (finding) [facility] History of tobacco use Cigarette Smoker [facility] Do you feel stress - tense, restless, nervous, or anxious, or unable to sleep at night because your mind is troubled all the time - these days [OSQ] Only a little [facility] Start: 03-17-2022 Tobacco Comment history of smo onemí social [facility] Start: 01-12-2019 Alcohol Comment maybe monthly [facility] Start: 10-10-2014 Sex Female (finding) [facility] NEGATED: Highlighted row Assertion Exposure to pollution (event) [facility] Work Phone: NEGATED: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 MANAGER 10/25/2018 Assess open wound of the jacinto d, complicated Medical Established Patient with Rosana Alaniz ASSET MANAGER 06/15/2018 Body mass index Medical Established Patient with Rosana Alaniz CNP 06/15/2018 Assess dermatitis Chart Update with Rosana Alaniz ASSET MANAGER 06/01/2018 [facility] Work Phone: [phone]) 772-640004-29-2020 History general Narrative - Reported Includes: Medical [...] 06/16/19 19 History of psychiatric disorders 019 [facility] Work Phone: Evaluation note* Diagnosis Substance abuse (HCC)- Primary Other, mixed, or unspecified nondependent drug abuse, unspecified documented in this encounter [facility] Work Phone: evaluation noteNo InformationNort [employer] Other Evaluation noteNo assessment information available [facility] Work Phone: Evaluation note* Diagnosis Onset Date Resolution Status Abscess acute Cellulitis acute [facility] Work Phone: Evaluation note* Diagnosis Onset Date Resolution Status Abscess acute Cellulitis acute Vitamin B 12 deficiency acut e [facility] Work Phone: Evaluation note* Diagnosis S/P lumbar fusion Arthrodesis status [facility] Diagnosis Stenosis of cervical spine- Primary Spinal stenosis in cervical region Stenosis of cervical spine- Primary Spinal stenosis in cervical region Stenosis of cervical spine Spinal stenosis in cervical region [facility]* Diagnosis Bilateral leg pain- Primary Pain in soft tissues of limb Herniated lumbar intervertebral disc Displacement of lumbar intervertebral disc without myelopathy S/P lumbar fusion Arthrodesis status Lumbar foraminal stenosis [facility]* Diagnosis Neck pain- Primary Cervicalgia Low back pain, unspecified back pain laterality, unspecified chronicity, unspecified whether sciatica present [facility]* Diagnosis Lumbar radiculopathy- Primary Thoracic or lumbosacral neuritis or radiculitis, unspecified Spinal stenosis of lumbar region with neurogenic claudication Spinal stenosis of lumbar region with neurogenic claudication- Primary Lumbar radiculopathy Thoracic or lumbosacral neuritis or radiculitis, unspecified Lumbar radiculopathy Thoracic or lumbosacral neuritis or radiculitis, unspecified Spinal stenosis of lumbar region with neurogenic claudication [facility]* Diagnosis S/P lumbar fusion- Primary Arthrodesis status Low back pain, unspecified back pain laterality, unspecified chronicity, unspecified whether sciatica present Neck pain Cervicalgia [facility]* Diagnosis DDD (degenerative disc disease), lumbosacral- Primary Degeneration of lumbar or lumbosacral intervertebral disc documented [facility]* Diagnosis Lumbar radiculopathy- Primary [...] History pick/port line Hospitalization History see above [facility] Other History general Narrative - Reported* Type Description Date Medical History ulcers bleeding and perforated Medical History fibromyalgia Medical History ADHD Medical History migraine headache Medical History insomnia Medical History Chiari malformation Medical History multiple sclerosis Medical History Substance abuse Surgical History cholecystectomy Surgical History breast reduction Surgical History breast augmentation Surgical History gastric sleeve Surgical History pick/port line Hospitalization History see above [facility] Other History of Present illness Narrative History of Present Illness not supported for this document type No History of Present Illness [facility] Work Phone: Hospital Discharge instructions Additional Instructions If your symptoms return/worsen or you develop any further concerns or symptoms please see your doctor or return to the emergency department immediately.[facility] Work Phone: Instructions Instructions not supported for this document type No Instructions [facility] Work Phone: InstructionsNot on filedocumented in this [...] Health SystemInstructionsNot on filedocumented in this encounter [facility] outcome Narrative Includes: Evaluations & Outcomes for active Goals No Outcomes [facility] Work Phone: Reason for referral (narrative)No Reason for Referral [facility] Work Phone: Reason for referral (narrative)* Consultation (Routine) - Pending Review Specialty Diagnoses / Procedures Referred By Ligia t Referred To Contact Pain Medicine Diagnoses Bilateral leg pain Herniated lumbar intervertebral disc S/P lumbar fusion Lumbar foraminal stenosis Johana Hansen, GERALDO [address] [address] Anup Butler MD [address] [place] [address] Referral ID Status Reason Start Date Expiration Date Visits Requested Visits Authorized [id number] Pending Review Specialty Services Required 03/30/2023 03/29/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 Advance Directives and Living Will Power of Therapist Radiation Latest Code Status on File Code Status Date Activated Date Inactivated Comments Full Code 11/16/2016 12:58 PM 11/16/2016 4:36 PM Full Code 07/27/2016 3:17 PM 07/27/2016 6:53 PM Full Code 11/25/2015 11:45 AM 11/25/2015 3:40 PM Full Code 11/11/2015 11:55 AM 11/11/2015 5:56 PM Full Code 07/22/2015 12:41 PM 07/22/2015 4:32 PM Documents on File Type Date Recorded 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] not take and drive. Please call your chief fundraising officer for follow-up within 1 week. Please return to the ED if you have severe worsening of pain, loss of sensation, your foot become numb, or any other concerns arise. documented in this encounter* Attachments The following attachments cannot be sent through Care Everywhere. * Edema: Leg and Ankle (Afghan) * Impetigo (Afghan) * LFTs (Liver Function Tests) (Afghan) documented in this encounter* Attachments The following attachments cannot be sent through Care Everywhere. * Sciatica (Afghan) * Foot Fracture (Afghan) documented in this encounter* Instructions* Elayne Hurley MD - 01/03/2019 You have a large herniated disc with entrapment of the left L5 nerve root. I would recommend follow-up with a neurosurgeon. documented in this encounter* Attachments The following attachments cannot be sent through Care Everywhere. * Drug Overdose: Opioid (Afghan) documented in this encounter Assessments Diagnosis Injury [...] with Rosana Alaniz [facility] 06/01/2018 Diagnosis Bilateral lower extremity edema- [...] features BH Established Patient with Uday Hansen [facility] 02/20/2019 Fagerstrom Score was 0 [...] disc Medical Esta blished [facility] Fibromyalgia Medical [facility] 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 Medical Established Patient with IvyNya Lujan [facility] 01/04/2019 Obesity due to excess calories Medical E stablished [facility] Z30.42 - Encounter for surve illance of injectable contraceptive Medical Established [facility] Z68.31 - Body mass index (BM I) 31.0-31.9 adult Medical Established [facility] Assess migraine headache Medical [...] of left foot [facility]2018 Assess open wound of the jacinto d, complicated Medical Established Patient with Rosana Alaniz [facility] 06/15/2018 Body mass index Medical Established Patient with Rosana Alaniz [facility] 06/15/2018 Assess dermatitis Chart Update with Rosana Katty [facility] 06/01/2018 Findings Encounter Date Anxiety disorder NOS CPS Med Review with Rosana Katty [facility] 03/08/2019 Obesity due to excess calories CPS Med R eview with Rosana Alaniz [facility] 03/08/2019 Screening for diabetes mellitus CPS Med Review with Rosana Alaniz [facility] 03/08/2019 Z68.32 - Body mass index (BM I) 32.0-32.9 adult CPS Med Review with Rosana Alaniz [facility] 03/08/2019 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 BH Established Patient with Uday Hansen [facility] 02/20/2019 Fagerstrom Score was 0 [...] disc Medical Esta blished [facility] Fibromyalgia Medical Established Patient with Ivy Le [facility] 01/04/2019 M51.27 - Other intervertebra [...] left foot Chart Update with Ivy Le [facility] 10/25/2018 Assess open wound of [...] mellitus CPS Med Review w ith Rosana Alainz [facility] 03/08/2019 Z68.32 - Body mass index (BM I) 32.0-32.9 adult CPS Med Review with Rosana Alaniz [facility] 03/08/2019 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 BH Established Patient with Uday Hansen [facility] 02/20/2019 Fagerstrom Score was 0 [...] Fibromyalgia Medical Established Patient with Ivy Le [facility] 01/04/2019 M51.27 - Other intervertebra [...] Alaniz [facility] 06/01/2018 Findings Encounter Date Moderate recurrent major depression [facility] with Li DUARTE 03/13/2020 Body mass index Telemedicine Establi sted Patient with Rosana Alaniz [facility] 03/13/2020 Obesity due to excess calories Telemedic ine Establisted Patient with Rosana Alaniz [facility] 03/13/2020 Obesity due to excess calories Telemedicine [...] CPS Med Review w ith Rosanaray Alaniz [facility] 03/08/2019 Z68.32 - Body mass index (BM I) 32.0-32.9 adult CPS Med Review with Rosana Alaniz [facility] 03/08/2019 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 Established Patient with Uday Hansen [facility] 02/20/2019 Fagerstrom Score was 0 [...] region Medical Established Patient with Primitivo Lujan [facility] 01/04/2019 Obesity due to excess calories Medical E stablished Patient with Primitivo Lujan [facility] 01/04/2019 Z30.42 - Encounter for surve illance of injectable contraceptive Medical Established Patient with Primitivo Lujan [facility] 01/04/2019 Z68.31 - Body mass index (BM I) 31.0-31.9 adult Medical Established Patient with Primitivo Lujan [facility] 01/04/2019 Assess migraine headache Medical Establi shed Patient with Rosana Alaniz [facility] 11/20/2018 Diabetes Risk Test Score was three score Medical Established Patient with Rosana Katty [facility] 11/20/2018 Obesity due to excess [...] Rosana [facility] 06/01/2018 Diagnosis Herniated intervertebral disc of lumbar spine- Primary Neuropathy Mononeuritis of unspecified site Diagnosis Accidental overdose of heroin, initial encounter (HCC)- Primary Findings Encounter Date Assess open wound of the jacinto d, complicated Medical Established Patient with Rosana Alaniz [facility] 06/15/2018 Body mass index Medical Established Patient with Rosana Alaniz [facility] 06/15/2018 Assess dermatitis Chart Update with [facility] 06/01/2018 Diagnosis Pain of left calf Findings Encounter Date Assess migraine headache Medical Establi shed Patient with Rosana Alaniz [facility] 11/20/2018 Diabetes Risk Test Score was three score Medical Established Patient with Rosana [facility] 11/20/2018 Obesity due to excess calories Medical E stablished Patient with Rosana [facility] 11/20/2018 Z68.34 - Body mass index (BM I) 34.0-34.9 adult Medical Established Patient with Rosana Alaniz [facility] MANAGER 11/20/2018 M25.572 - Pain in left ankle and joints of left foot Chart Update with Primitivo Lujan [facility] 10/25/2018 Assess open wound of the jacinto d, complicated Medical Established Patient with Rosana Alaniz [facility] 06/15/2018 Body mass index Medical Established Patient [...] LEFT Pensiero, Christopher A, DPM [address] [facility] [address] [place] [address] Reason [place] like [place] seen at [place] location-- psychaitry for ADD treatment, matthew like to see ana martinez if available 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), predominantly inattentive type (F90.0) Referral Organization [facility] [employer] [place] Referring Provider First Name Berenice Referring Provider Last Name Rohrbacher Referring Provider Specialty Nurse Pract itioner Referred Organization [facility] [employer] Referred Address [address] [place] [place], [place],[address] Referred Provider Specialty Psychiatry Referral Priority Routine General Notes Katina Winter 03:07:30 PM >received today, waiting for notes to be locked to fax Reason *FU 09/29 evaluate -- would like scheduled [place] Diagnosis 1 Lupus (M32.9) Diagnosis 2 Fibromyalgia (M79.7) Referral Organization [facility] [employer] [facility] [place] Referring Provider First Name Berenice Referring Provider Last Name Rohrbacher Referring Provider Specialty Nurse Pract itioner Referred Organization [facility] Referred Address [address] [facility],[address] Referred Provider Specialty Rheumatology Referral Priority Routine General Notes Katina Winter 03:28:37 PM >received today, notes locked, ins attached, referral faxed Clinical Notes Dr. Colindres P: [id number] F: [id number] Reason evaluate Diagnosis 1 Hepatitis C virus in fection without hepatic coma, unspecified chronicity (B19.20) Referral Organization [facility] [employer] [place] Referring Provider First Name Berenice Referring Provider Last Name Rohrbacher Referring Provider Specialty Nurse Pract itioner Referred Organization [facility] Gastroenterolo gy Referred Provider Agus Madera Referred Address [address] [facility],[address] ,[place], [place],[address] Referred Provider Specialty Gastroentero logy Referral Priority Routine General Notes Katina Winter 03:25:06 PM >received today, sent P2P Reason would like referral to pain management in [place] Diagnosis 1 Other chronic pain ( G89.29) Diagnosis 2 Lumbago with sciatic a, left side (M54.42) Diagnosis 3 History of back surg maria luz (Z98.890) Diagnosis 4 Cervical back pain w ith evidence of disc disease (M50.90) Referral Organization [facility] [place] Referring Provider First Name Berenice Referring Provider Last Name Leslyrbacher Referring Provider Specialty Nurse Pract itioner Referred Organization [facility] Referred Address [address] [place], [place],[address] Referred Provider Specialty Pain Medicin e Referral Priority Routine Specialty Diagnoses / Procedures Referred By Contac t Referred To Contact Radiology Diagnoses Neck pain Low back pain, unspecified back pain laterality, unspecified chronicity, unspecified whether sciatica present Procedures CT lumbar spine with contrast Elayne Luciano MD [address] [place] [address] [address] [place] [address] Referral ID Status Reason Start Date Expiration Date V isits Requested Visits Authorized [id number] Authorized 08/26/2023 08/25/2024 1 1 Specialty Diagnoses / Procedures Referred By Contac t Referred To Contact Radiology Diagnoses Neck pain Low back pain, unspecified back pain laterality, unspecified chronicity, unspecified whether sciatica present Procedures CT cervical spine with contrast Elayne Luciano MD [address] [place] [address] [address] [place] [address] Referral ID Status Reason Start Date Expiration Date V isits Requested Visits Authorized [id number] Authorized 08/26/2023 08/25/2024 1 1 Specialty Diagnoses / Procedures Referred By Contac t Referred To Contact Radiology Diagnoses Neck pain Low back pain, unspecified back pain laterality, unspecified chronicity, unspecified whether sciatica present Procedures IR myelogram 2+ regions complete Elayne Luciano MD [address] [place] [address] [address] [place] [address] Referral ID Status Reason Start Date Expiration Date V isits Requested Visits Authorized [id number] Pending Review 08/26/2023 08/25/2024 1 1 Specialty Diagnoses / Procedures Referred By Contac t Referred To Contact Diagnoses Lumbar radiculopathy Spinal stenosis of lumbar region with neurogenic claudication Procedures Case request operating room: INJECTION BLOCK EPIDURAL STEROID LUMBAR/SACRAL Right L 5,1 NR Jaswant Hussein, PA-C [address], [address] [place] [address] Referral ID Status Reason Start Date Expiration Date V isits Requested Visits Authorized [id number] Pending Review 05/04/2023 05/03/2024 1 1 Specialty Diagnoses / Procedures Referred By Contac t Referred To Contact Diagnoses Lumbar radiculopathy Procedures Case request operating room: INJECTION BLOCK EPIDURAL CAUDAL STEROID Renetta Elizalde, PA [address], [address] [place] [address] Referral ID Status Reason Start Date Expiration Date V isits Requested Visits Authorized [id number] Pending Review 05/31/2023 05/30/2024 1 1 Specialty Diagnoses / Procedures Referred By Contac t Referred To Contact Diagnoses Intervertebral disc stenosis of neural canal of cervical region Procedures Case request operating room: INJECTION SPINE TRANSFORAMINAL LEFT C6, C7 N. ROOT Yumiko Elizalde, TANK TRUCK OPERATOR-ASSET MANAGER [address] [place] [address] Referral ID Status Reason Start Date Expiration Date V isits Requested Visits Authorized [id number] Pending Review 10/25/2023 10/24/2024 1 1 Chief [...] content) DATE CREATED AUTHOR 08/25/2017 [facility] DATE CREATED AUTHOR AUTHOR'S ORGANIZ ATION 08/31/2017 [facility] DATE CREATED AUTHOR AUTHOR'S ORGANIZ ATION 10/25/2017 [facility] DATE CREATED AUTHOR AUTHOR'S ORGANIZ ATION 01/07/2018 DATE CREATED AUTHOR AUTHOR'S ORGANIZ ATION 01/29/2019 [facility] DATE CREATED AUTHOR AUTHOR'S ORGANIZ ATION 07/11/2020 [facility] DATE CREATED AUTHOR AUTHOR'S ORGANIZ ATION 06/07/2022 [facility] DATE CREATED AUTHOR AUTHOR'S ORGANIZ ATION 09/08/2022 [facility] DATE CREATED AUTHOR AUTHOR'S ORGANIZ ATION 08/28/2023 [facility] DATE CREATED AUTHOR AUTHOR'S ORGANIZ ATION 08/30/[address] [facility] DATE CREATED AUTHOR AUTHOR'S ORGANIZ ATION 09/23/2023 [facility] DATE CREATED AUTHOR AUTHOR'S ORGANIZ ATION 01/29/2024 [facility] DATE CREATED AUTHOR AUTHOR'S ORGANIZ ATION 04/20/2024 [facility] Reason for Visit (unrecogniz ed [...] a car in the parking lot @ [facility]. Narcan 7 mg IN per EMS. Status Reason Specialty Diagnoses / Procedures Referred By Contact Referred To Contact Open Vascular Lab Diagnoses Calf swelling Calf pain Procedures [facility] DUPLEX EXTREM VENOUS,UNI OR LTD Misbah Oreilly, DPM [address] [place] [address] [facility] [address] [place] [address] Reason Comments Other , med clear for residential. Reason Comments Back Pain Hip Pain Reason [...] Member Role Status Dates Berenice Haile APRN PROOFING MACHINE OPERATOR-C Attending Provider Act valery Team Status: Active Member Role Status Dates Berenice Haile APRN PROOFING MACHINE OPERATOR-C Primary Care Provider Active Team Status: Inactive Member Role Status Dates Berenice Haile APRN PROOFING MACHINE OPERATOR-C Attending Provider Act valery PHYSICIAN NO FAMILY Primary Care Provider Active Team Status: Inactive Member Role Status Dates Berenice Haile APRN PROOFING MACHINE OPERATOR-C Primary Care Provider Active Ladarius Pitts APRN Attending Provider Active Team Status: Active Member Role Status Dates Lola Montgomery APRN PROOFING MACHINE OPERATOR-C Primary Care Provider Active Team Status: Inactive Member Role Status Dates Johana Hansen PROOFING MACHINE OPERATOR-C Attending Provider Active Lola Montgomery APRN PROOFING MACHINE OPERATOR-C Primary Care Provider Active Bung Sewer Relationship Specialty Start Date End Date DanteBerenice cokerJEREMIAS [address] [facility] [place] [address] PCP - General Family Medicine 04/11/23 Bung Sewer Relationship Specialty Start Date End Date Berenice Haile PROOFING MACHINE OPERATOR [address] [facility] [address] PCP - General Family Medicine 04/11/23 Team Status: Inactive Member Role Status Dates Berenice Haile APRN PROOFING MACHINE OPERATOR-C Attending Provider Act valery Start: March 21, 2023 End: March 21, 2023 Team Status: Active Member Role Status Dates Lola Montgomery APRN PROOFING MACHINE OPERATOR-C Primary Care Provider Active Start: April 19, 2023 Jaimie Durand Attending Provider Active Start: April 19, 2023 Team Status: Active Member Role Status Dates Berenice Haile APRN PROOFING MACHINE OPERATOR-C Primary Care Provider Active Start: April 282023 Jaimie Durand Attending Provider Active Start: April 28, 2023 Team Status: Inactive Member Role Status Dates Berenice Haile APRN PROOFING MACHINE OPERATOR-C Primary Care Provider, Attending Provider Active Start: May 26, 2023 End: May 26, 2023 Team Status: Active Member Role Status Dates Lola Montgomery APRN PROOFING MACHINE OPERATOR-C Primary Care Provider Active Start: April 19, 2023 Jaimie Durand LPN Attending Provider Active S tart: April 19, 2023 Team Status: Active Member Role Status Dates Berenice Haile APRN PROOFING MACHINE OPERATOR-C Primary Care Provider Active Start: April 282023 Jaimie Durand LPN Attending Provider Active S tart: April 28, 2023 Team Status: Inactive Member Role Status Dates Berenice Haile APRN PROOFING MACHINE OPERATOR-C Primary Care Provider Active Start: June 15, 2023 End: June 15, 2023 Nazario Torres DO Emergency Provider Active Start: June 15, 2023 End: June 15, 2023 Team Status: Active Member Role Status Dates Berenice Haile APRN PROOFING MACHINE OPERATOR-C Primary Care Provider Active Start: August 15, 2023 Blake Corea DO Attending Provider Active Start : August 15, 2023 Team Status: Inactive Member Role Status Dates Berenice Haile APRN PROOFING MACHINE OPERATOR-C Primary Care Provider, Attending Provider Active Start: October 06, 2023 End: October 06, 2023 Bung Sewer Relationship Specialty Start Date End Date Berenice Haile NP [address] [place], [place] [id number] PCP - General Family Medicine 04/11/23 Savana Espinosa PCP - NOMS Meng [facility] 09/05/23 Bung Sewer Relationship Specialty [place] [address] [place] [address] PCP - General Family Medicine 04/11/23 Bung Sewer Relationship Specialty [place] [address] [place] [address] PCP - General Family Medicine 04/11/23 Bung Sewer Relationship Specialty Start Date End Date Berenice Haile NP [address] [place] [address] [place] [address] PCP - General Family Medicine 04/11/23 Savana Espinosa PCP - NOMJak BLANCAS 09/05/23 Bung Sewer Relationship Specialty Start Date End Date Tere Perze APRN-ASSET MANAGER [address] [place] [phone] PCP - General Nurse Practitioner 06/01/23 Bung Sewer Relationship Specialty Start Date End Date Berenice Haile APRN-PROOFING MACHINE OPERATOR [address] [place] [address] PCP - General Nurse Practitioner 01/17/23 Bung Sewer Relationship Specialty Start Date End Date Tere Perez APRN-ASSET MANAGER PCP - General Nurse Practitioner 06/01/23 Bung Sewer Relationship Specialty Start Date End Date Tere Perez APRN-ASSET MANAGER [address] [place] [phone] PCP - General Nurse Practitioner 06/01/23 Bung Sewer Relationship Specialty Start Date End Date Berenice Haile APRN-NP [address] [place] [address] PCP - General Nurse Practitioner 01/17/23 Bung Sewer Relationship Specialty Start Date End Date Tere Perez APRN-ASSET MANAGER [address] [place] [phone] PCP - General Nurse Practitioner 06/01/23 Bung Sewer Relationship Specialty Start Date End Date Lazara BereniceGENOVEVA-PROOFING MACHINE OPERATOR [address] [facility] [address] PCP - General Nurse Practitioner 01/17/23 Bung Sewer Relationship Specialty Start Date End Date Maral HaileferGENOVEVA-PROOFING MACHINE OPERATOR [address] [facility] [address] PCP - General Nurse Practitioner 01/17/23 Bung Sewer Relationship Specialty Start Date End Date Berenice Haile APRN-PROOFING MACHINE OPERATOR [address] [facility] [address] PCP - General Nurse Practitioner 01/17/23 Bung Sewer Relationship Specialty Start Date End Date Lazara BereniceTYLORPROOFING MACHINE OPERATOR [address] [facility] [address] PCP - General Nurse Practitioner 01/17/23 Bung Sewer Relationship Specialty Start Date End Date Tere Perez [facility] [address] [place] [phone] PCP - General Nurse Practitioner 06/01/23 Bung Sewer Relationship Specialty Start Date End Date [facility]re [facility] [address] [place] [address] PCP - General Nurse Practitioner 06/01/23 Bung Sewer Relationship Specialty Start Date End Date Tere Perez [facility] [address] [place] [address] PCP - General Nurse Practitioner 06/01/23 Bung Sewer Relationship Specialty Start Date End Date LazaraBereniceTYLORPROOFING MACHINE OPERATOR [address] [place] [place] [address] PCP - General Nurse Practitioner 01/17/23 Bung Sewer Relationship Specialty Start Date End Date CarolineBerenice hansenTYLORPROOFING MACHINE OPERATOR [address] [place] [address] PCP - General Nurse Practitioner 01/17/23 05/31/23 Bung Sewer Relationship Specialty Start Date End Date [facility]re Perez [facility] PCP - General Nurse Practitioner 06/01/23 Bung Sewer Relationship Specialty Start Date End Date Tere Perez APRN-[facility] [address] [place] [address] PCP - General Nurse Practitioner 06/01/23 Bung Sewer Relationship Specialty Start Date End Date Tere [facility] PCP - General Nurse Practitioner 06/01/23 Bung Sewer Relationship Specialty Start Date End Date Tere Perez APRN-ASSET MANAGER PCP - General Nurse Practitioner 06/01/23 Bung Sewer Relationship Specialty Start Date End Date Tere Perez APRN-ASSET MANAGER PCP - General Nurse Practitioner 06/01/23 Bung Sewer Relationship Specialty Start Date End Date Tere Perez, GENOVEVA-ASSET MANAGER PCP - General Nurse Practitioner 06/01/23 Goals [...] BE BASED ON THE PRIMARY CLINICAL RECORDS. [facility]. provides no warranty or guarantee of the accuracy or completeness of information in this document.
--- NOTE | 2024-06-05 23:42 | PC.NURSE ---
Pt boyfriend in room. Building Custodial Supervisor walked in and boy friend standing by drawer and withdrew hands from drawer handle very quickly as he was startled when comic writer walked in. Pt is impaired as evidenced by slurred speech. She is difficult to understand, but she does answer questions appropriately. Assisted pt in undressing the upper body for a CXR. She was unable to help. Staff found her clutching to a small bag of light aleman colored powder, a body recall instructor, and a black vial. The vial contained nothing. Pt admitted to cocaine use, and states this is cocaine. She denies that this is heroin. She is unable to stay awake, and dozes frequently. Boyfriend quickly left the room to go home and take a shower . Supervisor Seaming and Security aware of all this.
[2024-06-06] VITALS (33 sets, daily range): BP systolic 118–134; BP diastolic 83–102; PULSE 82–96; O2SAT 99–100
[2024-06-06 00:13] LABS: Basophils Percent Auto 0.4 % (0.2-2.0); Eosinophils Absolute Auto 0.6 10^3/uL (0.0-0.7); Hematocrit 35.5 % (36.0-48.0); Hemoglobin 11.6 g/dL (12.0-16.0); Immature Granulocytes Abs Auto 0.02 10^3/uL (0.00-0.03); Immature Granulocytes Pct Auto 0.3 % (0.0-0.5); Lymphocytes Absolute Auto 1.6 10^3/uL (1.2-3.8); Lymphocytes Percent Auto 23.6 % (20.5-60.0); Mean Corpuscular HGB Conc 32.7 g/dL (29.9-35.2); Mean Corpuscular Hemoglobin 28.9 pg (26.7-34.0); Mean Corpuscular Volume 88.3 fL (81.0-99.0); Mean Platelet Volume 10.3 fL (9.5-13.5); Monocytes Absolute Auto 0.4 10^3/uL (0.3-0.8); Neutrophils Absolute Auto 4.2 10^3/uL (1.4-6.5); Neutrophils Percent Auto 61.7 % (43.0-75.0); Platelet Count 274 10^3/uL (150-450); Red Blood Count 4.02 10^6/uL (4.20-5.40); Red Cell Distribution Width 12.7 % (11.0-15.0); White Blood Count 6.9 10^3/uL (4.0-11.0)
[2024-06-06] MEDS: VANCOMYCIN HCL 1,250 MG in 0.9 % SODIUM CHLORIDE 500 ML 250 MG IV (00:14)
[2024-06-06] MEDS: SODIUM CHLORIDE 869 ML IV (00:15)
[2024-06-06] MEDS: ERTAPENEM SODIUM 1 GM in 0.9 % SODIUM CHLORIDE 50 ML IV (00:15)
[2024-06-06 00:23] LABS: HCG Qualitative NEGATIVE (NEGATIVE); Internal Control Within Normal Limits
[2024-06-06 00:29] LABS: Lactate/Lactic Acid 0.8 mmol/L (0.4-2.0)
[2024-06-06 00:36] LABS: Alanine Aminotransferase 77 U/L (14-59); Albumin Globulin Ratio 0.8; Albumin Level 3.2 g/dL (3.4-5.0); Alkaline Phosphatase 182 U/L (46-116); Anion Gap 11.9; Aspartate Amino Transferase 75 U/L (15-37); BUN Creatinine Ratio 23.5; Bilirubin Total 0.3 mg/dL (0.2-1.0); Calcium 8.8 mg/dL (8.5-10.1); Carbon Dioxide 29.7 mmol/L (21.0-32.0); Chloride 101 mmol/L (98-107); Estimated GFR (African America >60 (>=60 mL/min/1.73m^2); Estimated GFR (Non-African Ame >60 (>=60 mL/min/1.73m^2); Globulin 4.1 g/dL; Glucose 99 mg/dL (74-106); Potassium 3.6 mmol/L (3.5-5.1); Sodium 139 mmol/L (136-145); Total Protein 7.3 g/dL (6.4-8.2)
[2024-06-06 00:46] LABS: C Reactive Protein 2.33 mg/dL (<=0.50); Ethanol <3 mg/dL
[2024-06-06 01:15] LABS: Bilirubin Urine NEGATIVE (NEGATIVE); Blood Urine NEGATIVE (NEGATIVE); Clarity Urine CLEAR (CLEAR); Color Urine YELLOW (YELLOW); Glucose Urine UA NEGATIVE (NEGATIVE); Ketones Urine NEGATIVE (NEGATIVE); Leukocyte Esterase Urine NEGATIVE (NEGATIVE); Nitrite Urine NEGATIVE (NEGATIVE); Protein Urine NEGATIVE (NEG/TRACE); pH Urine 6.5 (5.0-9.0)
[2024-06-06 01:17] LABS: Amphetamine Screen Urine POSITIVE (NEGATIVE); Barbiturates Screen Urine NEGATIVE (NEGATIVE); Benzodiazepines Screen Urine POSITIVE (NEGATIVE); Buprenorphine Screen Urine NEGATIVE (NEGATIVE); Cannabinoid Screen Urine POSITIVE (NEGATIVE); Cocaine Screen Urine POSITIVE (NEGATIVE); Methadone Screen Urine NEGATIVE (NEGATIVE); Methamphetamines Screen Urine POSITIVE (NEGATIVE); Opiate Screen Urine POSITIVE (NEGATIVE); Oxycodone Screen Urine NEGATIVE (NEGATIVE); Phencyclidine Screen Urine NEGATIVE (NEGATIVE); Tricyclic Antidepressant Urine POSITIVE (NEGATIVE)
--- NOTE | 2024-06-06 01:20 | PC.NURSE ---
XR in room
[2024-06-06 01:22] LABS: Amorphous Sediment Urine MODERATE; Bacteria Urine TRACE #/HPF (NONE SEEN); Crystals Seen? Seen #/HPF (None Seen); Mucus Urine NONE SEEN (NONE SEEN); RBC Urine 0-2 #/HPF (0-2); Squamous Epithelial Cell Urine FEW #/LPF (NONE/RARE); WBC Urine NONE SEEN #/HPF (NONE SEEN)
[2024-06-06 01:23] LABS: Cast Seen? NONE SEEN #/LPF (NONE SEEN); Urine Culture Indicated NO
--- NOTE | 2024-06-06 05:15 | ED.GENADUL1 ---
HPI HPI - General Adult General Chief complaint: Skin/Abscess/Foreign Body Stated complaint: SKIN ABSCESS Time Seen by Provider: 06/05/24 22:27 Source: patient Mode of arrival: walk-in Limitations: no limitations History of Present Illness HPI narrative: Patient presents to the emergency department with a chief complaint of worsening of the skin and soft tissue infection in the left lower leg. She is very somnolent and speech is slurred. Her boyfriend answers for her. She was seen in this ED 3 days ago for skin and soft tissue infection over the proximal left lower leg medially located. She was treated with IV clindamycin and placed on oral clindamycin 300 mg 4 times a day. Her boyfriend states that the area is now becoming bigger. He is also concerned that she is somnolent. Related Data Home Medications ?Medication ?Instructions ?Recorded ?Confirmed tizanidine 4 mg capsule (Zanaflex) 4 mg PO BID PRN muscle spasticity 11/02/22 06/02/24 calcium 600 mg (as 1 tab PO Q12H 11/09/22 06/02/24 carbonate)-vitamin D3 10 mcg (400 unit) tablet cyanocobalamin (vitamin B-12) 1,000 mcg subcut .monthly 11/09/22 06/02/24 1,000 mcg/mL injection solution eletriptan 40 mg tablet 40 mg PO .q12 H PRN migraine 11/09/22 06/02/24 headache multivitamin with folic acid 400 1 tab PO DAILY 11/09/22 06/02/24 mcg tablet (Daily-Raegan (with folic acid)) pantoprazole 40 mg tablet,delayed 40 mg PO .morning 11/09/22 06/02/24 release topiramate 200 mg tablet 200 mg PO Q12H 11/09/22 06/02/24 amitriptyline 10 mg tablet 10 mg PO QDAY 01/25/24 06/02/24 benzoyl peroxide 5 % topical gel 1 applic topical .qhs 06/02/24 06/02/24 cariprazine 1.5 mg capsule 1.5 mg PO Q24H 06/02/24 06/02/24 (Vraylar) clonidine HCl 0.1 mg tablet 0.1 mg PO QDAY 06/02/24 06/02/24 desonide 0.05 % topical cream 1 applic topical Q24H 06/02/24 06/02/24 furosemide 20 mg tablet 20 mg PO QDAY 06/02/24 06/02/24 letrozole 2.5 mg tablet 7.5 mg PO .COMPLEX 06/02/24 06/02/24 lisdexamfetamine 20 mg capsule 20 mg PO QPM 06/02/24 06/02/24 (Vyvanse) lisdexamfetamine 40 mg capsule 40 mg PO QAM 06/02/24 06/02/24 (Vyvanse) magnesium oxide 400 mg (241.3 mg 400 mg PO QDAY 06/02/24 06/02/24 magnesium) tablet mirtazapine 15 mg tablet 15 mg PO .qhs 06/02/24 06/02/24 nitrofurantoin 100 mg PO Q12H 06/02/24 06/02/24 monohydrate/macrocrystals 100 mg capsule potassium chloride 10 mEq 10 meq PO QAM 06/02/24 06/02/24 tablet,extended release(part/cryst) Previous Rx's ?Medication ?Instructions ?Recorded ibuprofen 800 mg tablet 800 mg PO Q8H PRN pain 14 days #40 12/03/22 tabs ondansetron 4 mg disintegrating 4 mg PO Q8H 5 days #15 tabs 12/03/22 tablet doxycycline hyclate 100 mg tablet 100 mg PO BID 10 days #20 tabs 06/06/24 Allergies Allergy/AdvReac Type Severity Reaction Status Date / Time amoxicillin Allergy Severe Unknown Verified 06/05/24 22:35 cefaclor (From Ceclor) Allergy Severe Flushing Verified 06/05/24 22:35 Penicillins Allergy Unknown Verified 06/05/24 22:35 NSAIDS (Non-Steroidal AdvReac Severe Unknown Verified 06/05/24 22:35 Anti-Inflamma Opioid HPI Opioid Management Most Recent Opioid Data: Last Pain Scale 6 06/02/24 21:19 06/02/24 Ur Phencyclidine Scrn Negative (NEGATIVE) 06/06/24 01:01 06/06/24 Review of Systems ROS Narrative Unavailable since the patient is somnolent and poorly responsive. [facility] Medical History Drug overdose ?T50.901A - Poisoning by unspecified drugs, medicaments and biological substances, accidental (unintentional), initial encounter (ICD-10) Hiatal hernia ?K44.9 - Diaphragmatic hernia without obstruction or gangrene (ICD-10) S/P extracorporeal shock wave therapy ?Z98.890 - Other specified postprocedural states (ICD-10) Multiple sclerosis ?G35 - Multiple sclerosis (ICD-10) Migraine ?G43.909 - Migraine, unspecified, not intractable, without status migrainosus (ICD-10) Attention deficit hyperactivity disorder ?F90.9 - Attention-deficit hyperactivity disorder, unspecified type (ICD-10) ADD (attention deficit disorder) ?F98.8 - Other specified behavioral and emotional disorders with onset usually occurring in childhood and adolescence (ICD-10) Kidney stones ?N20.0 - Calculus of kidney (ICD-10) GERD (gastroesophageal reflux disease) ?K21.9 - Gastro-esophageal reflux disease without esophagitis (ICD-10) Sleep apnea ?G47.30 - Sleep apnea, unspecified (ICD-10) Insomnia ?G47.00 - Insomnia, unspecified (ICD-10) PTSD (post-traumatic stress disorder) ?F43.10 - Post-traumatic stress disorder, unspecified (ICD-10) Panic attacks ?F41.0 - Panic disorder [episodic paroxysmal anxiety] (ICD-10) Anxiety ?F41.9 - Anxiety disorder, unspecified (ICD-10) Rheumatoid arthritis ?M06.9 - Rheumatoid arthritis, unspecified (ICD-10) Lupus ?M32.9 - Systemic lupus erythematosus, unspecified (ICD-10) Anemia ?D64.9 - Anemia, unspecified (ICD-10) Arthritis ?M19.90 - Unspecified osteoarthritis, unspecified site (ICD-10) Back pain ?M54.9 - Dorsalgia, unspecified (ICD-10) DDD (degenerative disc disease) Osteoarthritis ?M19.90 - Unspecified osteoarthritis, unspecified site (ICD-10) Neck pain ?M54.2 - Cervicalgia (ICD-10) Fibromyalgia ?M79.7 - Fibromyalgia (ICD-10) Fusion of spine ?M43.20 - Fusion of spine, site unspecified (ICD-10) Surgical History H/O ureteroscopy ?Z98.890 - Other specified postprocedural states (ICD-10) H/O bilateral breast reduction surgery ?Z98.890 - Other specified postprocedural states (ICD-10) History of cholecystectomy ?Z90.49 - Acquired absence of other specified parts of digestive tract (ICD-10) History of esophagogastroduodenoscopy (EGD) ?Z98.890 - Other specified postprocedural states (ICD-10) S/P epidural steroid injection ?Z92.241 - Personal history of systemic steroid therapy (ICD-10) History of spinal surgery ?Z98.890 - Other specified postprocedural states (ICD-10) History of gastric bypass ?Z98.84 - Bariatric surgery status (ICD-10) Family History Other Drug overdose Family history of MS (multiple sclerosis) Family history of diabetes mellitus Family history of emphysema Family history of hypertension Family history of myocardial infarction Family history of stroke Social History Within the past year, how often did you have a drink containing alcohol: never Score interpretation: A score less than 3 is consistent with normal alcohol consumption. Do you use any of these nicotine containing products: vaping products Nicotine containing products detail: mercy Non-prescribed substance use: denies use Previous occupational history: disabled Highest level of school completed/degree received: high school graduate Little interest or pleasure in doing things: not at all Feeling down, depressed, or hopeless: not at all Exam Narrative Exam Narrative: Patient is somnolent but arousable. Oxygen saturation is 99% on room air and she does not have any acute respiratory distress. Pupils are equal and reactive and 4 mm in diameter each. Neck is supple. Lung sounds are clear to auscultation bilaterally with good air entry. Heart has regular rate and rhythm. Abdomen is soft and benign. Examination of the left leg reveals an area of induration about 2 cm in diameter with a central raised area which has a small amount of fluctuance. There is some surrounding dependent swelling of the left lower leg. She does not have calf tenderness. Pulses are intact in the feet. There is no ascending lymphangitis. Patient is able to move all extremities actively and there is no facial asymmetry. Constitutional Vital Signs, click to edit/add: Last Vital Signs Temp 98.4 F 06/05/24 22:36 Pulse 86 06/06/24 04:20 Resp 12 06/06/24 04:20 BP 133/102 H 06/06/24 04:00 Pulse Ox 100 06/06/24 03:50 O2 Del Method Room Air 06/06/24 00:54 Course Vital Signs Vital signs: Vital Signs Pulse Oximetry 100 06/05/24 22:30 Temperature 98.4 F 06/05/24 22:36 Pulse Rate 86 06/06/24 04:20 Respiratory Rate 12 06/06/24 04:20 Blood Pressure 133/102 H 06/06/24 04:00 Pulse Oximetry 100 06/06/24 03:50 Oxygen Delivery Method Room Air 06/06/24 00:54 Medical Decision Making MDM Narrative Medical decision making narrative: Patient presents for evaluation of an abscess in her left lower leg. She was also noted to be very somnolent initially. The white count was normal at 6.9. Chemistries were unremarkable. Lactate was normal. Liver functions were abnormal and the C-reactive protein was elevated at 2.33. Patient has a known history of hep C. Serum was negative. Urinalysis does not show signs of infection. Chest x-ray was unremarkable. X-ray of the left lower leg did not reveal any gas in the soft tissue or any soft tissue foreign body. Urine toxicology screen was significant for the presence of opiates, benzodiazepines, cocaine, cannabinoid, methamphetamines. When the patient came in and while she was being undressed it was noticed that she was scratching a small plastic bag containing white crystalline substance that was removed from her presence. Treatment was started for suspected sepsis with IV fluids and IV vancomycin and ertapenem since she has a penicillin allergy. The patient has been observed for 7 hours and she is now easily arousable and I feel the drugs are wearing off. The area of abscess over the left lower leg was prepped with Betadine and topically sprayed with ethyl chloride. A sterile 18-gauge needle was used to puncture the most fluctuant area of the abscess and just a few drops of pus and some blood were aspirated. There is no other expressible fluid from the area. It has been covered with a dry dressing. Patient is placed additionally on doxycycline at home for better MRSA coverage and is advised warm moist compresses and early follow-up with PCP in the next couple days. She was advised to seek outpatient rehab for substance abuse. She is to return anytime for worsening symptoms. Differential Diagnosis Differential Diagnosis: Cellulitis, abscess. Lab Data Labs: Lab Results 06/05/24 06/06/24 Range/Units 23:49 01:01 WBC 6.9 (4.0-11.0) 10^3/uL RBC 4.02 L (4.20-5.40) 10^6/uL Hgb 11.6 L (12.0-16.0) g/dL Hct 35.5 L (36.0-48.0) % MCV 88.3 (81.0-99.0) fL MCH 28.9 (26.7-34.0) pg MCHC 32.7 (29.9-35.2) g/dL RDW 12.7 (11.0-15.0) % Plt Count 274 (150-450) 10^3/uL MPV 10.3 (9.5-13.5) fL Neut % (Auto) 61.7 (43.0-75.0) % Lymph % (Auto) 23.6 (20.5-60.0) % Drew % (Auto) 6.0 (1.7-12.0) % Eos % (Auto) 8.0 H (0.9-7.0) % Baso % (Auto) 0.4 (0.2-2.0) % Neut # (Auto) 4.2 (1.4-6.5) 10^3/uL Lymph # (Auto) 1.6 (1.2-3.8) 10^3/uL Drew # (Auto) 0.4 (0.3-0.8) 10^3/uL Eos # (Auto) 0.6 (0.0-0.7) 10^3/uL Baso # (Auto) 0.0 (0.0-0.1) 10^3/uL Abs Immat Gran (auto) 0.02 (0.00-0.03) 10^3/uL Imm/Tot Granulo (auto) 0.3 (0.0-0.5) % Sodium 139 (136-145) mmol/L Potassium 3.6 (3.5-5.1) mmol/L Chloride 101 (98-107) mmol/L Carbon Dioxide 29.7 (21.0-32.0) mmol/L Anion Gap 11.9 BUN 19.0 H (7.0-18.0) mg/dL Creatinine 0.81 (0.55-1.02) mg/dL Est GFR ( Amer) >60 (>=60 mL/min/1.73m^2) Est GFR (Non-Af Amer) >60 (>=60 mL/min/1.73m^2) BUN/Creatinine Ratio 23.5 Glucose 99 (74-106) mg/dL Lactate 0.8 (0.4-2.0) mmol/L Calcium 8.8 (8.5-10.1) mg/dL Total Bilirubin 0.3 (0.2-1.0) mg/dL AST 75 H (15-37) U/L ALT 77 H (14-59) U/L Alkaline Phosphatase 182 H (46-116) U/L C-Reactive Protein 2.33 H (<=0.50) mg/dL Total Protein 7.3 (6.4-8.2) g/dL Albumin 3.2 L (3.4-5.0) g/dL Globulin 4.1 g/dL Albumin/Globulin Ratio 0.8 Serum HCG, Qual Negative (NEGATIVE) Urine Color Yellow (YELLOW) Urine Clarity Clear (CLEAR) Urine pH 6.5 (5.0-9.0) Ur Specific [place] 1.020 (1.005-1.025) Urine Protein Negative (NEG/TRACE) mg/dL Urine Glucose (UA) Negative (NEGATIVE) mg/dL Urine Ketones Negative (NEGATIVE) mg/dL Urine Occult Blood Negative (NEGATIVE) Urine Nitrite Negative (NEGATIVE) Urine Bilirubin Negative (NEGATIVE) Urine Urobilinogen 1.0 (0.2-1.0) EU/dL Ur Leukocyte Esterase Negative (NEGATIVE) Urine RBC 0-2 (0-2) #/HPF Urine WBC None seen (NONE SEEN) #/HPF Ur Squamous Epith Cells Few A (NONE/RARE) #/LPF Urine Crystals Seen A (None Seen) #/HPF Amorphous Sediment Moderate Urine Bacteria Trace A (NONE SEEN) #/HPF Urine Casts None seen (NONE SEEN) #/LPF Urine Mucus None seen (NONE SEEN) Ur Culture Indicated? No Urine Opiates Screen Positive A (NEGATIVE) Ur Buprenorphine Scrn Negative (NEGATIVE) Ur Oxycodone Screen Negative (NEGATIVE) Urine Methadone Screen Negative (NEGATIVE) Ur Barbiturates Screen Negative (NEGATIVE) U Tricyclic Antidepress Positive A (NEGATIVE) Ur Phencyclidine Scrn Negative (NEGATIVE) Ur Amphetamines Screen Positive A (NEGATIVE) U Methamphetamines Scrn Positive A (NEGATIVE) U Benzodiazepines Scrn Positive A (NEGATIVE) Urine Cocaine Screen Positive A (NEGATIVE) U Cannabinoids Screen Positive A (NEGATIVE) Ethanol Quant <3 mg/dL Discharge Plan Discharge Chief Complaint: Skin/Abscess/Foreign Body Clinical Impression: Polysubstance abuse, Abscess of left lower leg Patient Disposition: Home, Self-Care Time of Disposition Decision: 05:10 Condition: Good Mode of Transportation: Private Vehicle Prescriptions / Home Meds: New doxycycline hyclate 100 mg tablet 100 mg PO BID 10 Days Qty: 20 0RF No Action calcium carbonate-vitamin D3 600 mg-10 mcg (400 unit) tablet 1 tab PO Q12H cyanocobalamin (vitamin B-12) 1,000 mcg/mL solution 1,000 mcg subcut .monthly eletriptan 40 mg tablet 40 mg PO .q12 H PRN (Reason: migraine headache) multivitamin with folic acid [Daily-Raegan (with folic acid)] 400 mcg tablet 1 tab PO DAILY pantoprazole 40 mg tablet,delayed release (DR/EC) 40 mg PO .morning topiramate 200 mg tablet 200 mg PO Q12H ibuprofen 800 mg tablet 800 mg PO Q8H PRN (Reason: pain) 14 Days Qty: 40 0RF ondansetron 4 mg tablet,disintegrating 4 mg PO Q8H 5 Days Qty: 15 0RF benzoyl peroxide 5 % gel 1 applic TOPICAL .qhs Vraylar 1.5 mg capsule 1.5 mg PO Q24H clonidine HCl 0.1 mg tablet 0.1 mg PO QDAY desonide 0.05 % cream 1 applic TOPICAL Q24H furosemide 20 mg tablet 20 mg PO QDAY letrozole 2.5 mg tablet 7.5 mg PO .COMPLEX Rx Instructions: 7.5 mg orally; on days 3-5 of cycle lisdexamfetamine [Vyvanse] 20 mg capsule 20 mg PO QPM lisdexamfetamine [Vyvanse] 40 mg capsule 40 mg PO QAM magnesium oxide 400 mg (241.3 mg magnesium) tablet 400 mg PO QDAY mirtazapine 15 mg tablet 15 mg PO .qhs nitrofurantoin monohyd/m-cryst 100 mg capsule 100 mg PO Q12H potassium chloride 10 mEq tablet,ER particles/crystals 10 meq PO QAM tizanidine [Zanaflex] 4 mg capsule 4 mg PO BID PRN (Reason: muscle spasticity) amitriptyline 10 mg tablet 10 mg PO QDAY Print Language: [place] Instructions: Abscess (ED), Polysubstance Use Disorder (ED) Additional Instructions: Follow-up with your primary care provider within 2 days. Apply warm moist compresses to affected area for about 10 minutes 4-5 times a day. Return for worsening symptoms. Referrals: Tere Perez NP [Primary Care Provider] - 1 week
== END 2024-06-06 05:40 | disposition home or self-care (01) ==
PROVIDERS: Emergency Provider Emergency Medicine; PCP Nurse Practitioner
DX: L02.416 Cutaneous abscess of left lower limb (principal); F19.10 Other psychoactive substance abuse, uncomplicated; R40.0 Somnolence; Z90.49 Acquired absence of other specified parts of digestive tract; Z98.84 Bariatric surgery status; F17.290 Nicotine dependence, other tobacco product, uncomplicated; B19.20 Unspecified viral hepatitis C without hepatic coma
CPT/HCPCS: 10160; 36415; 71045; 73590; 80053; 80307; 80320; 81001; 83605; 84703; 85025; 86140; 87040; 96365; 96366; 96368; 99284; J1335; J3370